=== PATIENT | male | born 1945 | race Caucasian/White ===

== ENCOUNTER → 2017-10-04 | Outpatient (CLI) | payer MEDICARE, SELFPAY | PROVIDERS: Visit Provider Nurse Practitioner Family | DX: R53.83 Other fatigue (principal) | CPT/HCPCS: 80053; 80061; 82306; 83036; 84439; 84443; 85025; 86431 ==

== ENCOUNTER → 2017-10-05 | Outpatient (CLI) | payer MEDICARE, SELFPAY | PROVIDERS: Family Provider Nurse Practitioner Family; Visit Provider Nurse Practitioner Family | DX: M25.562 Pain in left knee (principal) | CPT/HCPCS: 73564 ==

== ENCOUNTER → 2018-11-13 10:40 | Outpatient (CLI) | payer MEDICARE, SELFPAY ==
[2018-11-13 12:46] LABS: Prostate Specific Ag Screen 7.7 ng/mL (0.0-4.0)
== END ==
PROVIDERS: Visit Provider Urology
DX: Z12.5 Encounter for screening for malignant neoplasm of prostate (principal); N40.0 Benign prostatic hyperplasia without lower urinary tract symptoms; R97.20 Elevated prostate specific antigen [PSA]
CPT/HCPCS: 36415; G0103

== ENCOUNTER → 2019-11-12 12:15 | Outpatient (CLI) | payer MEDICARE, SELFPAY ==
[2019-11-13 11:28] LABS: PSA, Free 1.32 ng/mL; Prostate Specific Ag 5.6 ng/mL (0.0-4.0)
== END ==
PROVIDERS: Visit Provider Urology
DX: R97.20 Elevated prostate specific antigen [PSA] (principal)
CPT/HCPCS: 36415; 84153; 84154

== ENCOUNTER → 2020-06-17 15:16 | Outpatient (CLI) | payer MEDICARE, SELFPAY ==
[2020-06-19 09:14] LABS: Covid-19 Nasal PCR Sendout UK Not Detected
== END ==
PROVIDERS: PCP Emergency Medicine; Visit Provider Nurse Practitioner
DX: Z03.818 Encounter for observation for suspected exposure to other biological agents ruled out (principal)
CPT/HCPCS: U0003

== ENCOUNTER → 2020-06-22 18:56 | Outpatient (CLI) | payer MEDICARE, SELFPAY ==
[2020-06-22 19:36] LABS: Basophils % 0.7 % (0.1-2.0); Eosinophils # 0.1 K/mm3 (0.0-0.4); Eosinophils % 1.7 % (0.1-12.0); Hematocrit 41.9 % (42.0-52.0); Hemoglobin 14.2 g/dL (14.1-18.0); Lymphocytes # 1.2 K/mm3 (0.7-4.5); Lymphocytes % 23.9 % (10-50); Mean Corpuscular Volume 91.1 fl (80-94); Mean Platelet Volume 8.6 fl (7.4-10.4); Monocytes # 0.3 K/mm3 (0.1-1.0); Monocytes % 6.8 % (1.7-9.3); Neutrophils # 3.2 K/mm3 (1.8-7.8); Neutrophils % 66.9 % (37.0-80.0); Platelet Count 206 K/mm3 (142-424); Red Cell Distribution Width 13.3 % (11.5-17.5); White Blood Count 4.8 K/mm3 (4.8-10.8)
[2020-06-22 19:40] LABS: Alanine Aminotransferase 22 U/L (12-78); Albumin Level 4.6 g/dl (3.5-5.0); Albumin/Globulin Ratio 1.4 (1.1-1.8); Alkaline Phosphatase 70 U/L (38-126); Anion Gap 15.2 mEq/L (5-15); Aspartate Amino Transferase 29 U/L (17-59); Bilirubin,Total 0.8 mg/dl (0.2-1.3); Blood Urea Nitrogen 15 mg/dl (9-20); Calcium 9.5 mg/dl (8.4-10.2); Carbon Dioxide 29 mmol/L (22.0-30.0); Chloride 100 mmol/L (98-107); Chol/HDL Ratio 4.6 (1-3.5); Cholesterol 278 mg/dl (140-200); Estimated Glomerular Filt Rate 66 ml/min (>60); GFR (African American) 79 ML/MIN (>60); Globulin 3.3 g/dL (1.3-3.2); Glucose 122 mg/dl (74-100); HDL Cholesterol 60 mg/dl (40-60); Potassium 4.2 mmoL/L (3.5-5.1); Sodium 140 mmol/L (136-145); Total Protein,Serum 7.9 g/dl (6.3-8.2); Triglycerides 143 mg/dl (30-150); VLDL Cholesterol 29 mg/dL (0-40)
[2020-06-22 19:43] LABS: Creatinine,Urine Random 64 mg/dL (Not Estab.); Microalbumin/Creatinine Ratio 11.5
[2020-06-22 19:52] LABS: Direct LDL Cholesterol 157.16 mg/dL (100-129)
[2020-06-22 19:58] LABS: T4 (Thyroxine) 9.4 ug/dl (5.53-11.0)
[2020-06-22 19:59] LABS: Hemoglobin A1C 6.7 % (4.0-6.0)
[2020-06-22 20:12] LABS: Prostate Specific Ag Screen 6.8 ng/ml (0.0-4.0); Thyroid Stimulating Hormone 3.35 uIU/mL (0.465-4.68)
== END ==
PROVIDERS: Visit Provider Nurse Practitioner Family
DX: R42 Dizziness and giddiness; E78.5 Hyperlipidemia, unspecified; E11.9 Type 2 diabetes mellitus without complications; R53.83 Other fatigue; Z12.5 Encounter for screening for malignant neoplasm of prostate; Z79.84 Long term (current) use of oral hypoglycemic drugs
CPT/HCPCS: 80053; 80061; 82043; 82570; 83036; 84436; 84443; 85025; G0103

== ENCOUNTER → 2020-11-14 14:55 | Outpatient (CLI) | payer MEDICARE, SELFPAY ==
[2020-11-16 08:36] LABS: PSA, Free 1.49 ng/mL; Prostate Specific Ag 8.9 ng/mL (0.0-4.0)
== END ==
PROVIDERS: Visit Provider Urology
DX: R97.20 Elevated prostate specific antigen [PSA] (principal)
CPT/HCPCS: 36415; 84153; 84154

== ENCOUNTER → 2020-12-15 13:43 | Outpatient (CLI) | payer MEDICARE, SELFPAY ==
[2020-12-15 13:52] LABS: Basophils % 0.4 % (0.1-2.0); Eosinophils # 0.1 K/mm3 (0.0-0.4); Eosinophils % 1.4 % (0.1-12.0); Hematocrit 42.9 % (42.0-52.0); Hemoglobin 13.9 g/dL (14.1-18.0); Mean Corpuscular HGB Conc 32.4 g/dL (31.8-35.4); Mean Corpuscular Hemoglobin 30.6 pg (27.0-31.2); Mean Corpuscular Volume 94.4 fl (80-94); Mean Platelet Volume 8.4 fl (7.4-10.4); Monocytes # 0.3 K/mm3 (0.1-1.0); Monocytes % 5.9 % (1.7-9.3); Neutrophils # 4.2 K/mm3 (1.8-7.8); Neutrophils % 74.3 % (37.0-80.0); Platelet Count 206 K/mm3 (142-424); Red Blood Count 4.55 M/mm3 (4.60-6.20); Red Cell Distribution Width 13.3 % (11.5-17.5); White Blood Count 5.6 K/mm3 (4.8-10.8)
[2020-12-15 14:04] LABS: Alanine Aminotransferase 20 U/L (12-78); Albumin Level 4.8 g/dl (3.5-5.0); Albumin/Globulin Ratio 1.6 (1.1-1.8); Alkaline Phosphatase 56 U/L (38-126); Anion Gap 13.9 mEq/L (5-15); Aspartate Amino Transferase 29 U/L (17-59); Bilirubin,Total 0.7 mg/dl (0.2-1.3); Blood Urea Nitrogen 20 mg/dl (9-20); Calcium 9.8 mg/dl (8.4-10.2); Carbon Dioxide 24 mmol/L (22.0-30.0); Chloride 105 mmol/L (98-107); Chol/HDL Ratio 2.8 (1-3.5); Cholesterol 213 mg/dl (140-200); Estimated Glomerular Filt Rate 65 ml/min (>60); GFR (African American) 79 ML/MIN (>60); Glucose 117 mg/dl (74-100); HDL Cholesterol 77 mg/dl (40-60); Potassium 4.9 mmoL/L (3.5-5.1); Sodium 138 mmol/L (136-145); Total Protein,Serum 7.8 g/dl (6.3-8.2); Triglycerides 128 mg/dl (30-150); VLDL Cholesterol 26 mg/dL (0-40)
[2020-12-15 14:15] LABS: Direct LDL Cholesterol 104.67 mg/dL (100-129)
[2020-12-15 14:21] LABS: T4 (Thyroxine) 10.3 ug/dl (5.53-11.0)
[2020-12-15 14:22] LABS: 25-OH Vitamin D, Total 18.6 ng/mL (30-100)
[2020-12-15 14:34] LABS: Thyroid Stimulating Hormone 2.19 uIU/mL (0.465-4.68)
[2020-12-15 14:37] LABS: Hemoglobin A1C 6.4 % (4.0-6.0)
== END ==
PROVIDERS: Visit Provider Nurse Practitioner Family
DX: E11.9 Type 2 diabetes mellitus without complications (principal); E55.9 Vitamin D deficiency, unspecified; I10 Essential (primary) hypertension; Z79.84 Long term (current) use of oral hypoglycemic drugs; Z79.899 Other long term (current) drug therapy
CPT/HCPCS: 80053; 80061; 82306; 83036; 84436; 84443; 85025

== ENCOUNTER → 2021-01-07 10:06 | Outpatient (CLI) | payer MEDICARE, SELFPAY ==
--- NOTE | 2021-01-07 10:17 | XR_ITS ---
PROCEDURE: XR CHEST 2V CLINICAL HISTORY: cough COMPARISON: CR CXR CHEST(2 VIEWS-NOT PORTABLE) from 06/30/2013 CR CXR CHEST(2 VIEWS-NOT PORTABLE) from 07/02/2015 CR CXR CHEST(2 VIEWS-NOT PORTABLE) from 07/10/2015 FINDINGS: The cardiomediastinal silhouette and pulmonary vascularity are within normal limits. The lungs are clear without infiltrates, suspicious nodules, or pleural effusions. There is an old healed fracture of the left 7th rib posterior axillary line with mild deformity. No acute bony abnormalities. IMPRESSION: No acute findings. Dictated by: Dr. Xavier Villafana MD 01/07/2021 12:23 Dr. Xavier Villafana MD in [place] 01/07/2021 12:23
== END ==
PROVIDERS: PCP Emergency Medicine; Referring Provider Emergency Medicine; Visit Provider Emergency Medicine
DX: R05 Cough (principal)
CPT/HCPCS: 71046

== ENCOUNTER → 2021-01-20 15:11 | Outpatient (CLI) | payer MEDICARE, SELFPAY ==
--- NOTE | 2021-01-20 15:11 | CT_ITS ---
PROCEDURE: CT LUNG SCREENING CLINICAL INDICATION: lung cancer screening Current smoker 50 pack year smoking history Family hx lung cancer No prior COMPARISON: CR XR CHEST 2V from 01/07/2021 TECHNIQUE: The exam was performed on a GE Light Speed [address] scanner using 2.90 mGy CTDI. A low dose helical CT CHEST was performed on a multi-detector scanner. All CT scans at the facility use one or more dose reduction, viz: automated exposure control, ma/kV adjustment per patient size (including targeted exams where dose is matched to indication, i.e. head), or iterative reconstruction technique. The LDCT was performed in a facility that meets the criteria for the screening program. Data regarding this exam was submitted to ACR which is an approved registry. The order for this exam indicates that it came as a result of a lung cancer screening counseling shard decision-making visit that included all the elements required of such a visit including smoking cessation. The radiologist interpreting this exam meets the CMS criteria for the LDCT lung cancer screening program. The exam is reported using the Lung-RADS classification scale and reported to the ACR registry. NOTE: This study was performed for the specific purposes of lung cancer screening and is not an alternative to diagnostic chest CT. RADIATION DOSE: CTDI vol(CT dose Index-volume) = 2.90mG DLP (Dose Length Product) = 102.12 mGcm FINDINGS: COPD changes with scattered areas of scarring. Parenchymal opacity is present in the left apex medially measuring 9 mm. Suggest 6 month follow-up to confirm stability. This may be due to an area of scarring. Scattered small parenchymal opacities are present some of which are calcified and are 4 mm or less. Calcified nodes are present in the right hilum no suspicious nodules are evident. OTHER FINDINGS: Coronary artery calcifications. 14 mm hypodensity present in the right hepatic lobe anteriorly possibly due to a cyst. 8 mm hypodensity left hepatic lobe medially ankylosis of the thoracic spine. Old bilateral rib fractures. IMPRESSION: Lung-RADS Category 3 Probably Benign Follow-up: [address] Chest without and with contrast. At least 2 hypodense lesions of the liver which may represent hepatic cysts. MRI with hemangioma protocol may confirm. Coronary artery calcifications Dictated by: Kahlil Riley MD 01/22/2021 08:37 Kahlil Riley MD in [facility] 01/22/2021 08:37
== END ==
PROVIDERS: PCP Emergency Medicine; Visit Provider Emergency Medicine
DX: Z87.891 Personal history of nicotine dependence (principal); Z12.2 Encounter for screening for malignant neoplasm of respiratory organs
CPT/HCPCS: 71271

== ENCOUNTER → 2021-02-21 06:10 | Outpatient (CLI) | payer MEDICARE, SELFPAY ==
--- NOTE | 2021-02-21 06:37 | NM_ITS ---
APPROVED REPORT Exam: Nuclear Stress Test Indication: SOB, HTN, DM, High cholesterol, Tobacco use Patient Location: Outpatient Stress Tech: Amanda Perry MI Tech:Susannah Hansen, ARRT, RT (R)(N) Ht: 5 ft 10 in Wt: 155 lbs HR: 63 bpm BP: 153/66 mmHg BSA: 1.87 m2 BMI: 22.2 History: SOB, HTN, DM, High cholesterol, Tobacco use Procedure: Patient received a 0.4 mg of intravenous Lexiscan, resting heart rate 63 bpm, resting blood pressure 153/66 mmHg, with Lexiscan maximum heart rate achived was 100 bpm which is Less than 85 % of the maximum predicted heart rate and blood pressure was 155/73 mmHg. With Lexiscan, patient denied any complaint of chest pain. Electrocardiogram Resting electrocardiogram showed sinus rhythm, with Lexiscan there is less than 1.[address] segment depression noted from the baseline EKG. The EKG portion of the Lexiscan is nondiagnostic. Cardiac Stress and Resting SPECT Images: Cardiac Stress and Resting SPECT images were obtained using technetium 99m Myoview 32.6 mCi stress and 10.28 mCi at rest. Gated SPECT for analysis of segmental wall motion and calculation of the ejection fraction also done. Cardiac stress and resting SPECT images show mixed ischemia and scar involving the inferior and inferior apical wall, computer derived ejection fraction 42% with moderate inferior wall hypokinesis. Right ventricle is normal size and contractility. Conclusion: 1. The EKG portion of the Lexiscan is nondiagnostic. 2. Scintigraphic evidence of mixed ischemia and scar involving the inferior and inferior apical wall, completed right ejection fraction 42% with multiple segmental wall motion abnormality described above, right ventricle is normal size and contractility. 3. Abnormal Lexiscan Myoview study. Electronically signed by : Tobin Abraham, 02/21/2021 21:51:33
--- NOTE | 2021-02-21 07:55 | CA_ITS ---
APPROVED REPORT EXAM: Comprehensive 2D, Doppler, and color-flow Echocardiogram Wagon Drill Operator: Kimberly Spears CRT Ht: 5 ft 10 in Wt: 158lbs BSA: 1.89 BP: 149/56 mmHg Indications: Abnormal ECG, Shortness of Breath, Diabetes, Hyperlipidemia, Hypertension/HDD, smoker 2D Dimensions LVOT 1.97 cm (M/F) 1.5-2.5 LA Volume 22.30 mL LA Volume Index 11.80 mL/m2 (M/F) 16-34 M-Mode Dimensions RVDd 2.59 cm (0.9-2.6) LA Diam 3.62 cm (1.9-4.0) LVDd 5.37 cm (3.5-5.7) Ao Diam 3.41 cm (2.0-3.7) LVDs 4.59 cm (3.5-5.7) IVSd 1.15 cm (0.6-1.1) PWd 0.53 cm (0.6-1.1) EF (Teich) 30.60% FS 14.50% EDV (Teich) 139.50 mL TAPSE 1.79 (<1.7) ESV (Teich) 96.80 mL LV Diastology E Decel Time 197.00 (160-240 msec) E/A Ratio 1.14 MED E' 5.40 (< 7 cm/sec) MED A' 6.80 cm/s E'/MED E' Ratio 19.06 (>14) LAT E' 6.20 (<10 cm/sec) LAT A' 8.10 cm/s E/LAT E' Ratio 16.60 (>14) Aortic Valve AO Peak GR. 4.70 mmHg Mitral Valve MV A Velocity 90.00 (40-130 cm/s) E/A Ratio 1.14 MV Decel. Time 197.00 (160-240 ms) Pulmonary Valve PV Peak Velocity 64.00 (50-150 cm/s) Tricuspid Valve TR P. Velocity 271.00 cm/s RAP Estimate 10.00 mmHg RVSP 39.30 mmHg Left Ventricle Left atrium is mildly enlarged, left ventricle is normal size, visually estimated ejection fraction approximately 40 to 45%, left ventricle appears to be globally hypokinetic, grade 2 diastolic dysfunction seen with tissue Doppler evidence of raise left atrial pressure. Right Ventricle Right atrium and right ventricle are normal size and contractility. Aortic Valve Aortic valve is minimally thickened and fibrosed, there is no aortic stenosis or aortic insufficiency. Mitral Valve Mitral valve is grossly normal, there is trace mitral regurgitation. Tricuspid Valve Tricuspid grossly normal, there is trace tricuspid regurgitation, tricuspid regurgitation jet velocity is inadequate for calculation of the right ventricular systolic pressure. Pulmonic Valve Pulmonic valve is poorly visualized. Great Vessels Aortic root is normal size. Pericardium No significant pericardial effusion noted. Conclusion 1. Mildly enlarged left atrium, normal left ventricular size, mild concentric left ventricular hypertrophy, visually estimated ejection fraction approximately 40 to 45% left ventricle is globally hypokinetic, grade 2 diastolic dysfunction seen with tissue Doppler evidence of raise left atrial pressure. 2. Mild mitral and tricuspid regurgitation. 3. No significant pericardial effusion noted. Electronically signed by : Tobin Abraham, 02/21/2021 19:50:36
--- NOTE | 2021-02-21 07:55 | CA_ITS ---
APPROVED REPORT Leather Production Artisan: ABBY Laterality: Bilateral Study Quality: Good Indications: bilateral carotid bruits Risk Factors Hypertension: Doppler Spectral Velocity Analysis ECA (R) 104.80/8.20 cm/s ECA (L) 95.00/12.00 cm/s dICA (R) 68.80/18.70 cm/s dICA (L) 97.70/34.30 cm/s Fan (R) 89.80/20.20 cm/s Fan (L) 110.50/36.00 cm/s pICA (R) 75.60/14.20 cm/s pICA (L) 60.60/17.20 cm/s dCCA (R) 70.00/15.50 cm/s dCCA (L) 88.30/20.20 cm/s pCCA (R) 116.60/15.00 cm/s pCCA (L) 86.80/18.70 cm/s Vert (R) 44.90/9.00 cm/s Vert (L) 36.80/12.90 cm/s ICA/CCA 1.28 ICA/CCA 1.25 Findings Duplex evaluation demonstrates no evidence of hemodynamically significant stenosis of the bilateral Internal Carotid Arteries. Duplex evaluation demonstrates antegrade flow of the bilateral Vertebral Arteries. Duplex evaluation demonstrates stenosis of the right proximal internal carotid artery <20% with PSV <140 cm/sec, EDV <100 cm/sec, and IC/CC Ratio <4.0. Duplex evaluation demonstrates stenosis of the left proximal internal carotid artery <20% with PSV <140 cm/sec, EDV <100 cm/sec, and IC/CC Ratio <4.0. Conclusion Duplex evaluation demonstrates no evidence of hemodynamically significant stenosis of the bilateral Internal Carotid Arteries. Duplex evaluation demonstrates antegrade flow of the bilateral Vertebral Arteries. Duplex evaluation demonstrates stenosis of the right proximal internal carotid artery <20% with PSV <140 cm/sec, EDV <100 cm/sec, and IC/CC Ratio <4.0. Duplex evaluation demonstrates stenosis of the left proximal internal carotid artery <20% with PSV <140 cm/sec, EDV <100 cm/sec, and IC/CC Ratio <4.0. Electronically signed by : Kala Meng, 02/21/2021 15:49:24
--- NOTE | 2021-02-21 08:11 | HMH.ITSHM ---
Current Home Medications as stated by this patient Cole Feliz JR or data entry representative. []ROSUVASTATIN METFORMIN LISINOPRIL FLUTICASONE VITAMIN D2 DOXAZOSIN ASA
--- NOTE | 2021-02-21 08:51 | CA_ITS ---
APPROVED REPORT Exam: Pharmacologic Technologist: Amanda Perry, Ht: 5 ft 10 in Wt: 158 lbs BSA: 1.89 m2 HR: 63 bpm BP: 153/66 mmHg Medical History Medications: Lisinopril,,,,, Aspirin,,,,, Metformin,,,,, DOxazosin,,,,, Vitamin D2,,,,, BREo Eliipta,,,,, Stress Test Details Test: LEXISCAN HR Resting HR: 71 bpm Max Heart Rate (APMHR): 146.453324 bpm Max HR Achieved: 109 bpm Target HR (85% APMHR): 124.651486 bpm % of APMHR: 74.66 Recovery HR: 71 bpm BP Resting BP: 153/66 mmHg Max BP: 155/73 mmHg Recovery BP: 141.0/62.0 mmHg ECG Resting ECG: NSR, cannot R/O old septal OH, T wave inversion inferiorly and in V6, early repolarization changes. Clinical Exercise duration: 04:10 min Highest Stage Achieved: Exercise capacity: 1.0 METs Stress ECG Conclusion Symptoms: SOA, malaise. No CP Arrhythmias/Ectopy: Rare PVC ST-T Changes: some exaggeration of baseline abns, most notably in lead V6. Conclusion: Non-diagnostic Lexiscan stress. Myoview images reported separately. Electronically signed by : Tobin Abraham, 02/21/2021 21:35:18
== END ==
LOC: RAD 06:10
PROVIDERS: PCP Nurse Practitioner Family; Visit Provider Internal Medicine Cardiovascular Disease
DX: E11.59 Type 2 diabetes mellitus with other circulatory complications (principal); I10 Essential (primary) hypertension; I25.10 Atherosclerotic heart disease of native coronary artery without angina pectoris; R06.00 Dyspnea, unspecified; R09.89 Other specified symptoms and signs involving the circulatory and respiratory systems; R94.31 Abnormal electrocardiogram [ECG] [EKG]; Z72.0 Tobacco use; Z79.84 Long term (current) use of oral hypoglycemic drugs
CPT/HCPCS: 78452; 93017; 93306; 93880; A9502; J2785

== ENCOUNTER → 2021-02-25 09:13 | Outpatient (CLI) | payer MEDICARE, SELFPAY ==
[2021-02-25 09:48] LABS: Basophils % 0.4 % (0.1-2.0); Eosinophils # 0.1 K/mm3 (0.0-0.4); Eosinophils % 2.2 % (0.1-12.0); Hematocrit 44.2 % (42.0-52.0); Hemoglobin 13.6 g/dL (14.1-18.0); Lymphocytes # 1.2 K/mm3 (0.7-4.5); Lymphocytes % 24.6 % (10-50); Mean Corpuscular HGB Conc 30.8 g/dL (31.8-35.4); Mean Corpuscular Hemoglobin 29.8 pg (27.0-31.2); Mean Corpuscular Volume 96.7 fl (80-94); Mean Platelet Volume 7.4 fl (7.4-10.4); Monocytes # 0.4 K/mm3 (0.1-1.0); Monocytes % 7.4 % (1.7-9.3); Neutrophils # 3.2 K/mm3 (1.8-7.8); Neutrophils % 65.4 % (37.0-80.0); Platelet Count 203 K/mm3 (142-424); Red Blood Count 4.57 M/mm3 (4.60-6.20); Red Cell Distribution Width 13.1 % (11.5-17.5); White Blood Count 4.9 K/mm3 (4.8-10.8)
[2021-02-25 14:00] LABS: Anion Gap 13.2 mEq/L (5-15); Blood Urea Nitrogen 19 mg/dl (9-20); Calcium 9.9 mg/dl (8.4-10.2); Carbon Dioxide 31 mmol/L (22.0-30.0); Chloride 101 mmol/L (98-107); Estimated Glomerular Filt Rate 59 ml/min (>60); GFR (African American) 72 ML/MIN (>60); Glucose 96 mg/dl (74-100); Potassium 5.2 mmoL/L (3.5-5.1); Sodium 140 mmol/L (136-145)
== END ==
PROVIDERS: Visit Provider Internal Medicine Cardiovascular Disease
DX: I10 Essential (primary) hypertension (principal); I25.10 Atherosclerotic heart disease of native coronary artery without angina pectoris; I65.29 Occlusion and stenosis of unspecified carotid artery; R09.89 Other specified symptoms and signs involving the circulatory and respiratory systems; R94.30 Abnormal result of cardiovascular function study, unspecified; Z72.0 Tobacco use; Z01.818 Encounter for other preprocedural examination; Z11.52 Encounter for screening for COVID-19
CPT/HCPCS: 36415; 80048; 85025; U0003

== ENCOUNTER 2021-02-27 08:40 | Day surgery (SDC) | payer MEDICARE, SELFPAY ==
[2021-02-27] VITALS (12 sets, daily range): BP systolic 102–152; BP diastolic 47–75; PULSE 48–63; RESP 12–18; TEMP 36.6–36.7; O2SAT 92–98; BMI 22.8
--- NOTE | 2021-02-27 07:16 | IR_ITS ---
APPROVED REPORT Patient Location: Outpatient Warehouse Supervisor 3Rd Shift: EUFEMIA Lancaster RT (R) PROCEDURES Left heart catheterization Left ventriculogram Selective coronary angiogram INDICATION High risk abnormal Myoview, Angina pectoris, Informed consent was obtained prior to the procedure. COMPLICATIONS NONE Estimated Blood Loss: LESS THAN 10 ML TECHNIQUE One percent lidocaine used to anesthetize the right anterior aspect of the wrist. The right radial artery was accessed via the Seldinger technique. A 6 Norwegian sheath was placed in the right radial artery. 2.5 mg of verapamil, 800 mcg of nitroglycerin, 1mg Lidocaine and 5000 U Heparin were given through the arterial sheath. The trap catheter was also used to perform left heart catheterization, left ventriculogram and selective coronary angiogram. At the end of the procedure the sheath was removed good hemostasis was achieved using Traclet band, patient was transferred to the postop holding area in stable condition. ANGIOGRAPHIC RESULTS The left main artery Has an ostial 70% stenosis and a distal 60% stenosis well proximal to the LAD and circumflex origin The left anterior descending artery Has a proximal hazy concentric 50% followed by concentric mid vessel 70% stenosis The circumflex artery Is nondominant and has a proximal 30% stenosis The right coronary artery Is dominant and has a mid vessel concentric 60 to 70% stenosis and a distal 30% stenosis The SOTO ventriculogram reveals Normal 65% The left ventricular end-diastolic pressure 10 mmHg IMPRESSION Three-vessel coronary artery disease as described above Low syntax score which seriously puts into play percutaneous revascularization as opposed to coronary bypass surgery Normal ejection fraction Normal left ventricular end-diastolic pressure PLAN 1. At this point I would like to discuss with the patient and his family his desire for multivessel stenting or coronary artery bypass surgery. There are significant advantages to stenting over bypass surgery mostly that the risk of stroke is significantly lower in the low syntax to her tertile group with drug-eluting stenting as opposed to surgery. Patient is however at the age where he may consider bypass surgery which is also entirely acceptable. According to the syntax trial the mortality remains the same for both drug-eluting stent versus CABG however the stroke rate is higher in the CABG group with the drug-eluting stent group requiring a higher number of repeat revascularization/cardiac catheterizations. In the CABG group a perioperative stroke is typically a large stroke creating severe debility 2. LDL less than 55 3. Cardiac rehabilitation 4. Avoidance of tobacco products 5. Patient will be offered both revascularization modalities once he is 24 hours beyond the cardiac catheterization due to sedation Electronically signed by : Quan Del Valle, 02/27/2021 11:24:13
== END 2021-02-27 13:25 | disposition home or self-care (01) ==
LOC: CATHLAB 08:42
PROVIDERS: PCP Nurse Practitioner Family; Visit Provider Internal Medicine
DX: I25.10 Atherosclerotic heart disease of native coronary artery without angina pectoris (principal); I10 Essential (primary) hypertension; I65.29 Occlusion and stenosis of unspecified carotid artery; R09.89 Other specified symptoms and signs involving the circulatory and respiratory systems; R94.30 Abnormal result of cardiovascular function study, unspecified; Z72.0 Tobacco use; I65.23 Occlusion and stenosis of bilateral carotid arteries; E78.5 Hyperlipidemia, unspecified; Z88.1 Allergy status to other antibiotic agents; Z79.82 Long term (current) use of aspirin; E11.8 Type 2 diabetes mellitus with unspecified complications; Z71.6 Tobacco abuse counseling; Z79.84 Long term (current) use of oral hypoglycemic drugs
CPT/HCPCS: 93458; 99152; C1725; C1769; J1644; Q9967

== ENCOUNTER → 2021-03-06 10:53 | Outpatient (CLI) | payer MEDICARE, SELFPAY | PROVIDERS: Visit Provider Internal Medicine Cardiovascular Disease | DX: Z01.812 Encounter for preprocedural laboratory examination (principal); Z20.822 Contact with and (suspected) exposure to COVID-19; I25.10 Atherosclerotic heart disease of native coronary artery without angina pectoris | CPT/HCPCS: U0003 ==

== ENCOUNTER 2021-03-07 12:23 | Day surgery (SDC) | payer MEDICARE, SELFPAY ==
[2021-03-07] VITALS (12 sets, daily range): BP systolic 115–143; BP diastolic 62–75; PULSE 55–72; RESP 17–20; TEMP 36.6; O2SAT 94–98; BMI 22.5
--- NOTE | 2021-03-07 | IR_ITS ---
APPROVED REPORT Patient Location: Outpatient PROCEDURES Drug-eluting stent deployment to the proximal mid dominant right coronary artery Drug-eluting stent deployment to the ostial proximal mid left main artery Drug-eluting stent deployment to the proximal and mid LAD INDICATION Three-vessel coronary artery disease, Informed consent was obtained prior to the procedure. COMPLICATIONS NONE Estimated Blood Loss: LESS THAN 10 ML TECHNIQUE One percent lidocaine used to anesthetize the right anterior aspect of the wrist. The right radial artery was accessed via the Seldinger technique. A 6 Upper Sorbian sheath was placed in the right radial artery. 2.5 mg of verapamil, 800 mcg of nitroglycerin, 1mg Lidocaine and 5000 U Heparin were given through the arterial sheath. A 6 Upper Sorbian Poppa catheter was used to cannulate the right coronary artery after therapeutic heparin was administered giving a therapeutic ACT of 309 seconds. The Choice PT extra-support wire was placed distally in the right coronary artery and a 4 mm x 18 mm resolute Glen stent was deployed at 20 and then 24 abiola in the right coronary artery. The stenosis was not fully reduced therefore a 5 mm x 8 mm noncompliant balloon was deployed in the area of interest at 20 abiola further reducing the stenosis to less than 10%. Excellent angiographic results were obtained. JUAN PABLO-3 flow was present before and after the procedure. Following this the guide catheter was placed into the left main artery where the same wire was placed in the left main artery into the LAD. A 4 mm x 8 mm resolute [place] stent was then deployed in the ostial proximal left main artery at 24 abiola reducing the stenosis. A 5 mm x 8 mm balloon was then deployed in the vessel at 20 and 24 abiola to further post dilate. Excellent JUAN PABLO-3 flow was present before and after the procedure. After achieving excellent angiographic results a 4 mm x 30 mm resolute Glen stent was placed in the proximal to mid LAD and deployed at 20 abiola reducing the stenosis. A 4 mm x 12 mm noncompliant balloon was then placed in the mid LAD and deployed at 20 and then 24 and then 25 abiola to further post dilate the stenosis. Excellent angiographic results were obtained with JUAN PABLO-3 flow being present before and after the procedure. At the end of the procedure the apparatus was removed the sheath was removed and hemostasis was achieved using TR banding patient was transferred to the postop holding in stable condition IMPRESSION Successful stenting of the proximal to mid dominant right coronary artery severe disease reduced to less than 10% with 1 drug-eluting stent Successful stenting of the ostial proximal mid left main artery severe disease reduced to 0% with 1 drug-eluting stent Successful stenting of the proximal to mid LAD in a contiguous manner severe disease reduced to 0% with 1 drug-eluting stent PLAN 1. Aspirin and Plavix 2. LDL less than 55 3. Cardiac rehabilitation 4. Avoidance of tobacco products 5. Risk factor modification Electronically signed by : Quan Del Valle, 03/07/2021 13:42:33
[2021-03-07 13:58] LABS: CATHL Activated Clotting Time 309 SEC (74-125)
--- NOTE | 2021-03-07 16:00 | US_ITS ---
PROCEDURE: US AORTA CLINICAL INDICATION: tobacco dep COMPARISON: No exams were available for comparison FINDINGS: No evidence of abdominal aortic aneurysm. Proximal common iliacs have an unremarkable appearance. IMPRESSION: Negative for abdominal aortic aneurysm Dictated by: Kahlil Riley MD 03/07/2021 17:12 Kahlil Riley MD in [place] 03/07/2021 17:12
--- NOTE | 2021-03-07 16:08 | HMH.PHACLD ---
Cole Feliz JR has received discharge medication counseling on the following medications: PATIENT ALREADY TAKING CARVEDILOL 3.125 MG BID, LISINOPRIL 2.5 MG DAILY, ASPIRIN DR 81 MG DAILY, PLAVIX 75 MG DAILY, AND CRESTOR 20 MG HS.
== END 2021-03-07 16:01 | disposition home or self-care (01) ==
LOC: CATHLAB 12:23
PROVIDERS: PCP Nurse Practitioner Family; Visit Provider Internal Medicine
DX: I25.118 Atherosclerotic heart disease of native coronary artery with other forms of angina pectoris (principal); I10 Essential (primary) hypertension; R06.00 Dyspnea, unspecified; R09.89 Other specified symptoms and signs involving the circulatory and respiratory systems; R94.31 Abnormal electrocardiogram [ECG] [EKG]; Z72.0 Tobacco use; I25.119 Atherosclerotic heart disease of native coronary artery with unspecified angina pectoris; I65.29 Occlusion and stenosis of unspecified carotid artery; E78.2 Mixed hyperlipidemia; Z71.6 Tobacco abuse counseling; E11.9 Type 2 diabetes mellitus without complications; Z79.84 Long term (current) use of oral hypoglycemic drugs
CPT/HCPCS: 76770; 85347; 92928; 99152; 99153; C1725; C1769; C1876; C9600; J1644; Q9967

== ENCOUNTER → 2021-03-17 10:08 | Outpatient (CLI) | payer MEDICARE, SELFPAY ==
[2021-03-17 11:47] LABS: Chloride 99 mmol/L (98-107); Potassium 5.8 mmoL/L (3.5-5.1); Sodium 140 mmol/L (136-145)
[2021-03-17 11:50] LABS: Anion Gap 18.8 mEq/L (5-15); Blood Urea Nitrogen 22 mg/dl (9-20); Calcium 9.6 mg/dl (8.4-10.2); Carbon Dioxide 28 mmol/L (22.0-30.0); Estimated Glomerular Filt Rate 73 ml/min (>60); GFR (African American) 88 ML/MIN (>60); Glucose 123 mg/dl (74-100)
== END ==
PROVIDERS: Visit Provider Internal Medicine Cardiovascular Disease
DX: E11.9 Type 2 diabetes mellitus without complications (principal); E78.5 Hyperlipidemia, unspecified; I10 Essential (primary) hypertension; I25.10 Atherosclerotic heart disease of native coronary artery without angina pectoris; I65.29 Occlusion and stenosis of unspecified carotid artery; R09.89 Other specified symptoms and signs involving the circulatory and respiratory systems; R94.30 Abnormal result of cardiovascular function study, unspecified; Z72.0 Tobacco use
CPT/HCPCS: 36415; 80048

== ENCOUNTER → 2021-03-18 08:53 | Outpatient (CLI) | payer MEDICARE, SELFPAY ==
[2021-03-18 10:06] LABS: Chloride 101 mmol/L (98-107); Potassium 4.4 mmoL/L (3.5-5.1); Sodium 141 mmol/L (136-145)
[2021-03-18 10:08] LABS: Blood Urea Nitrogen 23 mg/dl (9-20); Estimated Glomerular Filt Rate 65 ml/min (>60); GFR (African American) 79 ML/MIN (>60)
[2021-03-18 10:09] LABS: Anion Gap 13.4 mEq/L (5-15); Calcium 9.3 mg/dl (8.4-10.2); Carbon Dioxide 31 mmol/L (22.0-30.0); Glucose 136 mg/dl (74-100)
== END ==
PROVIDERS: Visit Provider Internal Medicine Cardiovascular Disease
DX: E87.5 Hyperkalemia (principal)
CPT/HCPCS: 36415; 80048

== ENCOUNTER 2021-03-20 08:56 | Outpatient (RCR) | payer MEDICARE, SELFPAY | END 2021-05-29 10:53 | disposition home or self-care (01) | LOC: PT 08:56 | PROVIDERS: Visit Provider Internal Medicine | DX: Z95.5 Presence of coronary angioplasty implant and graft (principal) | CPT/HCPCS: 93798 ==

== ENCOUNTER → 2021-07-03 16:35 | Outpatient (CLI) | payer MEDICARE, SELFPAY | PROVIDERS: PCP Emergency Medicine; Visit Provider Nurse Practitioner | DX: Z20.822 Contact with and (suspected) exposure to COVID-19 (principal) | CPT/HCPCS: C9803; U0003; U0005 ==

== ENCOUNTER → 2021-07-10 14:32 | Outpatient (CLI) | payer MEDICARE, SELFPAY ==
[2021-07-10 14:56] LABS: Basophils % 0.5 % (0.1-2.0); Eosinophils # 0.1 K/mm3 (0.0-0.4); Eosinophils % 1.2 % (0.1-12.0); Hematocrit 40.2 % (42.0-52.0); Hemoglobin 13.3 g/dL (14.1-18.0); Lymphocytes # 0.9 K/mm3 (0.7-4.5); Lymphocytes % 19.3 % (10-50); Mean Corpuscular HGB Conc 33.1 g/dL (31.8-35.4); Mean Corpuscular Hemoglobin 30.5 pg (27.0-31.2); Mean Platelet Volume 9.1 fl (7.4-10.4); Monocytes # 0.4 K/mm3 (0.1-1.0); Monocytes % 8.1 % (1.7-9.3); Neutrophils # 3.3 K/mm3 (1.8-7.8); Neutrophils % 71.1 % (37.0-80.0); Platelet Count 233 K/mm3 (142-424); Red Blood Count 4.37 M/mm3 (4.60-6.20); Red Cell Distribution Width 13.9 % (11.5-17.5); White Blood Count 4.7 K/mm3 (4.8-10.8)
[2021-07-10 15:05] LABS: Chloride 106 mmol/L (98-107); Potassium 4.4 mmoL/L (3.5-5.1); Sodium 142 mmol/L (136-145)
[2021-07-10 15:08] LABS: Alanine Aminotransferase 22 U/L (12-78); Albumin Level 4.6 g/dl (3.5-5.0); Albumin/Globulin Ratio 1.4 (1.1-1.8); Alkaline Phosphatase 77 U/L (38-126); Anion Gap 15.4 mEq/L (5-15); Aspartate Amino Transferase 28 U/L (17-59); Bilirubin,Total 0.4 mg/dl (0.2-1.3); Blood Urea Nitrogen 18 mg/dl (9-20); Carbon Dioxide 25 mmol/L (22.0-30.0); Cholesterol 162 mg/dl (140-200); Estimated Glomerular Filt Rate 59 ml/min (>60); GFR (African American) 72 ML/MIN (>60); Globulin 3.2 g/dL (1.3-3.2); Total Protein,Serum 7.8 g/dl (6.3-8.2); Triglycerides 100 mg/dl (30-150); VLDL Cholesterol 20 mg/dL (0-40)
[2021-07-10 15:09] LABS: Calcium 10.2 mg/dl (8.4-10.2); Chol/HDL Ratio 2.2 (1-3.5); Glucose 129 mg/dl (74-100); HDL Cholesterol 73 mg/dl (40-60)
[2021-07-10 15:20] LABS: Direct LDL Cholesterol 62.09 mg/dL (100-129)
[2021-07-10 15:25] LABS: T4 (Thyroxine) 8.4 ug/dl (5.53-11.0)
[2021-07-10 15:28] LABS: 25-OH Vitamin D, Total 43.3 ng/mL (30-100)
[2021-07-10 15:39] LABS: Thyroid Stimulating Hormone 3.13 uIU/mL (0.465-4.68)
[2021-07-10 15:40] LABS: Hemoglobin A1C 6.7 % (4.0-6.0)
== END ==
LOC: LAB.DROPOF 14:32
PROVIDERS: Visit Provider Nurse Practitioner Family
DX: E11.9 Type 2 diabetes mellitus without complications (principal); E78.5 Hyperlipidemia, unspecified; I10 Essential (primary) hypertension; I25.10 Atherosclerotic heart disease of native coronary artery without angina pectoris; Z12.5 Encounter for screening for malignant neoplasm of prostate; E55.9 Vitamin D deficiency, unspecified
CPT/HCPCS: 80053; 80061; 82306; 83036; 84436; 84443; 85025; G0103

== ENCOUNTER → 2021-07-28 09:41 | Outpatient (CLI) | payer MEDICARE, SELFPAY ==
--- NOTE | 2021-07-28 09:41 | CT_ITS ---
PROCEDURE: CT CHEST WO/W CON CLINCAL INDICATION: 6 mth f/u COMPARISON: CT CT LUNG SCREENING from 01/20/2021 TECHNIQUE: IV Contrast: 75ml Isovue 370 Axial images obtained with sagittal and coronal reformats. All CT scans at the facility use one or more dose reduction, viz: automated exposure control, ma/kV adjustment per patient size (including targeted exams where dose is matched to indication, i.e. head), or iterative reconstruction technique. FINDINGS: HEART AND MEDIASTINAL STRUCTURES: Coronary artery calcifications and/or stents noted. No mediastinal or hilar mass or adenopathy. No evidence of aortic aneurysm or central pulmonary embolus. There is mild prominence of the left atrial appendage. LUNGS AND PLEURAL SPACES: COPD changes with scattered areas of scarring. Semi solid parenchymal opacity once again noted in the left apex medially which does appears slightly more prominent. The nodule has both a solid component centrally and a ground-glass component peripherally. Overall the nodule measures approximately 12 x 11 mm including the ground-glass component which was not included in the previous reading. The solid component appears slightly more prominent medially measuring approximately 10 by 13 mm previously measuring 7 x 12 mm. PET-CT should be considered for further evaluation. There is evidence of old granulomatous disease. Scarring is present in the right middle lobe and lingula. Subpleural nodule in the right upper lobe posteriorly is unchanged at approximately 6 mm. There are scattered calcified granulomas. UPPER ABDOMEN: There are 6 hepatic hypodensities measuring up to 14 mm. These may be due to cysts and may be confirmed with MRI. There is left hydronephrosis. The kidneys are incompletely imaged. Bones: There is an old right 1st rib fracture anteriorly. There are old bilateral rib fractures. ADDITIONAL FINDINGS: No other significant abnormalities. IMPRESSION: Left apical semi solid lesion appears slightly more prominent. This could be related to slice orientation. True growth is not excluded. Suggest PET-CT for further evaluation. Old granulomatous disease Multiple hepatic hypodensities which may be due to cyst and may be confirmed with MRI with hemangioma Mildly prominent left atrial appendage Left-sided hydronephrosis . Dictated by: Kahlil Riley MD 07/29/2021 09:41 Kahlil Riley MD in [place] 07/29/2021 09:41
[2021-07-28 10:25] LABS: Blood Urea Nitrogen 14 mg/dl (9-20); Estimated Glomerular Filt Rate 65 ml/min (>60); GFR (African American) 79 ML/MIN (>60)
== END ==
PROVIDERS: PCP Emergency Medicine; Visit Provider Nurse Practitioner Family
DX: R91.8 Other nonspecific abnormal finding of lung field (principal); R93.7 Abnormal findings on diagnostic imaging of other parts of musculoskeletal system
CPT/HCPCS: 36415; 71270; 82565; 84520; Q9967

== ENCOUNTER → 2021-11-07 10:16 | Outpatient (CLI) | payer MEDICARE, SELFPAY | PROVIDERS: PCP Emergency Medicine; Visit Provider Nurse Practitioner | DX: U07.1 COVID-19 (principal) | CPT/HCPCS: C9803; U0003; U0005 ==

== ENCOUNTER → 2021-11-30 10:38 | Outpatient (CLI) | payer MEDICARE, SELFPAY ==
[2021-12-01 11:29] LABS: PSA, Free 1.86 ng/mL
== END ==
LOC: LAB 10:39
PROVIDERS: Visit Provider Urology
DX: R97.20 Elevated prostate specific antigen [PSA] (principal)
CPT/HCPCS: 36415; 84153; 84154

== ENCOUNTER → 2021-12-06 07:50 | Outpatient (CLI) | payer MEDICARE, SELFPAY ==
[2021-12-06 08:45] VITALS: PULSE 88; PULSE 90
== END ==
PROVIDERS: PCP Emergency Medicine; Visit Provider Internal Medicine Pulmonary Disease
DX: R06.09 Other forms of dyspnea (principal)
CPT/HCPCS: 94060; 94618; 94640; 94727; 94729

== ENCOUNTER → 2022-01-01 14:53 | Outpatient (CLI) | payer MEDICARE, SELFPAY ==
[2022-01-01 18:02] LABS: Basophils % 0.3 % (0.1-2.0); Eosinophils # 0.1 K/mm3 (0.0-0.4); Eosinophils % 1.6 % (0.1-12.0); Hematocrit 38.3 % (42.0-52.0); Hemoglobin 12.4 g/dL (14.1-18.0); Lymphocytes # 0.4 K/mm3 (0.7-4.5); Lymphocytes % 8.5 % (10-50); Mean Corpuscular HGB Conc 32.5 g/dL (31.8-35.4); Mean Corpuscular Hemoglobin 31.2 pg (27.0-31.2); Mean Platelet Volume 9.2 fl (7.4-10.4); Monocytes # 0.3 K/mm3 (0.1-1.0); Monocytes % 6.5 % (1.7-9.3); Neutrophils # 3.9 K/mm3 (1.8-7.8); Neutrophils % 83.1 % (37.0-80.0); Platelet Count 116 K/mm3 (142-424); Red Blood Count 3.99 M/mm3 (4.60-6.20); Red Cell Distribution Width 14.1 % (11.5-17.5); White Blood Count 4.6 K/mm3 (4.8-10.8)
[2022-01-01 18:41] LABS: Hemoglobin A1C 6.4 % (4.0-6.0)
== END ==
PROVIDERS: Visit Provider Nurse Practitioner Family
DX: E78.5 Hyperlipidemia, unspecified (principal); E11.9 Type 2 diabetes mellitus without complications; Z79.84 Long term (current) use of oral hypoglycemic drugs
CPT/HCPCS: 83036; 85025

== ENCOUNTER → 2022-01-05 16:00 | Outpatient (CLI) | payer MEDICARE, SELFPAY ==
[2022-01-05 20:26] LABS: Alanine Aminotransferase 28 U/L (12-78); Albumin Level 4.1 g/dl (3.5-5.0); Albumin/Globulin Ratio 1.5 (1.1-1.8); Alkaline Phosphatase 54 U/L (38-126); Anion Gap 12.5 mEq/L (5-15); Aspartate Amino Transferase 36 U/L (17-59); Bilirubin,Total 0.7 mg/dl (0.2-1.3); Blood Urea Nitrogen 18 mg/dl (9-20); Calcium 8.4 mg/dl (8.4-10.2); Carbon Dioxide 27 mmol/L (22.0-30.0); Chloride 103 mmol/L (98-107); Chol/HDL Ratio 2.7 (1-3.5); Cholesterol 117 mg/dl (140-200); Estimated Glomerular Filt Rate 65 ml/min (>60); GFR (African American) 79 ML/MIN (>60); Globulin 2.7 g/dL (1.3-3.2); Glucose 124 mg/dl (74-100); HDL Cholesterol 44 mg/dl (40-60); Potassium 4.5 mmoL/L (3.5-5.1); Sodium 138 mmol/L (136-145); Total Protein,Serum 6.8 g/dl (6.3-8.2); Triglycerides 95 mg/dl (30-150); VLDL Cholesterol 19 mg/dL (0-40)
[2022-01-05 20:37] LABS: Direct LDL Cholesterol 49.43 mg/dL (100-129)
[2022-01-05 21:12] LABS: T4 (Thyroxine) 7.5 ug/dl (5.53-11.0)
[2022-01-05 21:26] LABS: Thyroid Stimulating Hormone 4.23 uIU/mL (0.465-4.68)
== END ==
LOC: LAB.DROPOF 01-08 19:24
PROVIDERS: Visit Provider Nurse Practitioner Family
DX: E78.5 Hyperlipidemia, unspecified (principal); E11.9 Type 2 diabetes mellitus without complications; Z79.84 Long term (current) use of oral hypoglycemic drugs
CPT/HCPCS: 80053; 80061; 82043; 84436; 84443

== ENCOUNTER → 2022-03-24 08:04 | Outpatient (CLI) | payer MEDICARE, SELFPAY ==
[2022-03-24 08:29] LABS: Microscopic, Urine URINE MICROSCOPIC (MICROSCOPIC)
[2022-03-24 09:05] LABS: Basophils # 0.1 K/mm3 (0-0.2); Basophils % 1.8 % (0.1-2.0); Eosinophils # 0.1 K/mm3 (0.0-0.4); Eosinophils % 2.1 % (0.1-12.0); Hematocrit 38.7 % (42.0-52.0); Hemoglobin 13.1 g/dL (14.1-18.0); Lymphocytes # 0.9 K/mm3 (0.7-4.5); Mean Corpuscular HGB Conc 33.8 g/dL (31.8-35.4); Mean Corpuscular Hemoglobin 32.1 pg (27.0-31.2); Mean Corpuscular Volume 94.8 fl (80-94); Mean Platelet Volume 7.9 fl (7.4-10.4); Monocytes # 0.3 K/mm3 (0.1-1.0); Monocytes % 6.4 % (1.7-9.3); Neutrophils # 2.8 K/mm3 (1.8-7.8); Neutrophils % 68.8 % (37.0-80.0); Platelet Count 190 K/mm3 (142-424); Red Blood Count 4.08 M/mm3 (4.60-6.20); Red Cell Distribution Width 13.9 % (11.5-17.5); White Blood Count 4.1 K/mm3 (4.8-10.8)
[2022-03-24 09:43] LABS: Albumin Level 4.4 g/dl (3.5-5.0); Chloride 105 mmol/L (98-107); Potassium 5.1 mmoL/L (3.5-5.1); Sodium 141 mmol/L (136-145)
[2022-03-24 09:45] LABS: Blood Urea Nitrogen 18 mg/dl (9-20); Estimated Glomerular Filt Rate 54 ml/min (>60); GFR (African American) 65 ML/MIN (>60)
[2022-03-24 09:46] LABS: Anion Gap 12.1 mEq/L (5-15); Calcium 10.1 mg/dl (8.4-10.2); Carbon Dioxide 29 mmol/L (22.0-30.0); Glucose 141 mg/dl (74-100); Phosphorous 3.9 mg/dl (2.5-4.5)
[2022-03-24 10:02] LABS: 25-OH Vitamin D, Total 33.8 ng/mL (30-100)
[2022-03-24 10:53] LABS: Intact Parathyroid Hormone 12.6 pg/mL (7.5-53.5)
[2022-03-24 16:23] LABS: Appearance,Urine CLEAR (Clear); Bilirubin,Urine Negative (Negative); Blood, Urine Negative (Negative); Color,Urine YELLOW (Yellow); Glucose,Urine (UA) TRACE (Negative); Ketones,Urine Negative (Negative); Leukocyte Esterase,Urine Negative (Negative); Nitrate,Urine Negative (Negative); PH,Urine 5.5 (5.0-8.5); Protein,Urine Negative (Negative); Urobilinogen,Urine 0.2 EU/dl (0.2)
[2022-03-24 16:38] LABS: Creatinine,Urine Random 69 mg/dL (Not Estab.)
[2022-03-24 16:40] LABS: Microalbumin/Creatinine Ratio 25.9
[2022-03-24 18:54] LABS: Bacteria,Urine Trace /lpf; Squamous Epithelial Cell,Urine Occasional #/hpf (0-5); WBC,Urine Occasional #/hpf (0-3)
== END ==
LOC: LAB 08:05
PROVIDERS: PCP Emergency Medicine; Visit Provider Internal Medicine Nephrology
DX: R80.9 Proteinuria, unspecified (principal); E55.9 Vitamin D deficiency, unspecified
CPT/HCPCS: 36415; 80069; 81001; 82043; 82306; 82570; 83970; 84155; 85025

== ENCOUNTER → 2022-03-26 12:52 | Outpatient (POV) | payer MEDICARE, SELFPAY | PROVIDERS: Visit Provider Internal Medicine Nephrology | DX: Z00.00 Encounter for general adult medical examination without abnormal findings (principal) ==

== ENCOUNTER → 2022-03-30 12:41 | Outpatient (CLI) | payer MEDICARE, SELFPAY ==
--- NOTE | 2022-03-30 12:41 | CT_ITS ---
FINAL REPORT TECHNIQUE: Axial CT images were performed from the lung apices through the upper abdomen. Coronal reformats were submitted. This study was performed with techniques to keep radiation doses as low as reasonably achievable (ALARA). Individualized dose reduction techniques using automated exposure control or adjustment of mA and/or kV according to the patient's size were employed. CLINICAL HISTORY: 6 month March-2021 COMPARISON: 07/28/2021 FINDINGS: There is no axillary adenopathy. There is no hilar or mediastinal mass or adenopathy. Heart size is normal. There is no pericardial or pleural effusion. There is a 13 x 9 mm semi solid nodular opacity in the medial left lung apex which appears stable. Note is made of mild scarring. There are several granulomas in the right lung. There is new, tree in bud opacity in the lateral right lower lobe best seen on image 51 consistent with inflammatory/infectious etiology. Several chronic left lateral rib fractures are identified. Limited images of the upper abdomen reveal multiple low-attenuation masses in the liver, favor cysts. IMPRESSION: Semi solid nodular opacity in the left lung apex, stable. Recommend additional follow-up in 12 months to evaluate for stability. New, tree in bud opacity in the right lower lobe consistent with inflammatory/infectious etiology. Reviewed, Interpreted and Dictated by Isacc Oliveira III, MD Transcribed by Aline Godoy Authenticated and . [facility]
== END ==
LOC: RAD 12:41
PROVIDERS: PCP Emergency Medicine; Visit Provider Internal Medicine Pulmonary Disease
DX: R91.8 Other nonspecific abnormal finding of lung field (principal)
CPT/HCPCS: 71250

== ENCOUNTER → 2022-05-16 10:28 | Outpatient (CLI) | payer MEDICARE, SELFPAY | PROVIDERS: PCP Emergency Medicine; Visit Provider Surgery | DX: Z01.812 Encounter for preprocedural laboratory examination (principal); Z20.822 Contact with and (suspected) exposure to COVID-19; Z12.11 Encounter for screening for malignant neoplasm of colon | CPT/HCPCS: C9803; U0003; U0005 ==

== ENCOUNTER 2022-05-18 11:26 | Day surgery (SDC) | payer MEDICARE, SELFPAY ==
[2022-05-16 09:39] VITALS: BMI 23.6
[2022-05-18 11:44] VITALS: BP 178/71; PULSE 86; RESP 18; TEMP 36.2; O2SAT 98
[2022-05-18 11:53] LABS: POC Glucose,Bedside 118 (70-110)
[2022-05-18 11:57] VITALS: O2SAT 98
--- NOTE | 2022-05-18 12:10 | P.PN_ITS ---
[facility] Anesthesia Checklist - Patient Identification Patient Identification: Arm Band - Structural Data Admitted From: Home Planned Operative Procedure/s: colonoscopy Consent for Planned Operative Procedure(s) Verified: Yes Verified Documents: Surgical Consent, History and Physical - NPO Status Verified Time NPO: 00:00 - Additional verifications Anesthesia Reactions: No - Airway Assessment C-Spine Mobility Assessed: Yes (mp2) TMJ Mobility Assessed: Yes Dentition: Edentulous - Neurological Assessment Level of Consciousness: Awake, Alert - Anesthesia Plan Anesthesia Risk discussed: Yes Anesthesia Plan: Verified ASA Class: III Anesthesia Type: MAC [facility] History I have reviewed the patient's past medical history: Yes Medical History: Reports:: Coronary Artery Disease, Diabetes Mellitus Type 2, Hyperlipidemia, Hypertension Denies:: Cancer, Diabetes Mellitus Type 1, Internal Pacemaker, MRSA, Seizures *Have you ever received a pneumonia vaccine?: No *Have you received a flu vaccine this season?: No Anesthesia experience/problems:: nac Other Surgeries: Yes: Cardiac Catheterization, Colonoscopy, Coronary Stent. No: Pacemaker Amputation: No Fractures: No - *Social History Last grade of school completed: 7th or 8th Smoking Status: Current every day smoker Tobacco Type: cigarettes # Packs/Day (cigarettes): 1 #Yrs smoked (if former smoker): 50 Alcohol Intake: current Alcohol Intake Frequency:: a few times a week Substance Use Type: denies use *Occupational Status:: retired Housing: house Household Members: none *Travel in the last 8 weeks: None Family Hx:: Cancer, Diabetes
[2022-05-18 12:42] VITALS: BP 105/56; PULSE 59; RESP 16; TEMP 36.6; O2SAT 97
--- NOTE | 2022-05-18 12:43 | HMH.SCOPE ---
- Procedure: Date: 05/18/22 Patient Date of :: 1945 Procedure Performed:: Colonoscopy to terminal ileum with numerous polypectomy Indications:: Patient is a 76-year-old male who was scheduled for screening colonoscopy after referral by Dr. Dean. It appears that the patient had colonoscopy in March [address] 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 Apparently this may have had a cancerous component. He had a follow-up sigmoidoscopy with Dr. Scott Mccallum in June 2009 and had sigmoid polyp removed. 1 year follow-up colonoscopy was recommended. That was 13 years ago. Performing Provider:: Isacc Rodgers MD Referring Provider:: Ab Dean Sedation:: MAC sedation Procedure:: Patient was taken to endoscopy procedure room. He was positioned in lateral decubitus position. Adequate intravenous sedation was achieved with anesthesia titration of propofol. Variable stiffness Olympus colonoscope was inserted via the anus. It was advanced to the cecum. He did have some significant redundancy of the sigmoid colon. Ileocecal valve and appendiceal orifice were clearly identified. Colonoscope was slowly withdrawn through the colon with careful surveillance. Numerous polyps were encountered. Please see findings below. These were removed by a variety of technique. Retroflexion within the rectum revealed no evidence of any pathologic internal hemorrhoids. Colonoscope was withdrawn. Findings:: Cecal polyp x3, 2 removed with biopsy forceps and 1 with cold snare Ascending colon polyp x3 2 removed with biopsy forceps and 1 with snare Hepatic flexure polyp removed with cold cutting snare Sigmoid polyp removed with cold cutting snare. Post polypectomy clip was placed for hemostasis He had several diminutive hyperplastic appearing rectosigmoid polyps, more prominent were removed with biopsy forceps He had a distal rectal polyp removed with cold snare. Clip was placed for hemostasis He had approximately 12 polyps removed many of which appeared adenomatous Recommendations:: Follow-up colonoscopy pending pathology. Given prior history likely within 2 years. I will see if I can obtain his previous pathology. Complications:: None immediately apparent Estimated blood obtained (mL): 4
[2022-05-18 12:52] VITALS: BP 125/72; PULSE 75; RESP 16; O2SAT 97
[2022-05-18 13:02] VITALS: BP 144/72; PULSE 73; RESP 16; O2SAT 98
[2022-05-18 13:12] VITALS: BP 131/81; PULSE 69; RESP 16; TEMP 36.4; O2SAT 98
== END 2022-05-18 13:12 | disposition home or self-care (01) ==
LOC: OUTP 11:28
PROVIDERS: PCP Emergency Medicine; Visit Provider Surgery
PROC: 0DJD8ZZ Inspection of Lower Intestinal Tract, Via Natural or Artificial Opening Endoscopic (ICD-10-PCS; principal; 2022-05-18 12:30)
DX: Z12.11 Encounter for screening for malignant neoplasm of colon (principal); K63.5 Polyp of colon; Z86.010 Personal history of colon polyps; E11.9 Type 2 diabetes mellitus without complications; I25.10 Atherosclerotic heart disease of native coronary artery without angina pectoris; I10 Essential (primary) hypertension; E78.5 Hyperlipidemia, unspecified; Z72.0 Tobacco use; Z79.899 Other long term (current) drug therapy
CPT/HCPCS: 45380; 45385; 82962; 88305

== ENCOUNTER → 2022-06-12 14:41 | Outpatient (CLI) | payer MEDICARE, SELFPAY ==
[2022-06-14 10:57] LABS: PSA, Free 2.06 ng/mL; Prostate Specific Ag 7.4 ng/mL (0.0-4.0)
== END ==
PROVIDERS: PCP Emergency Medicine; Visit Provider Urology
DX: R97.20 Elevated prostate specific antigen [PSA] (principal)
CPT/HCPCS: 36415; 84153; 84154

== ENCOUNTER 2022-09-25 08:08 | Day surgery (SDC) | payer MEDICARE, SELFPAY ==
[2022-09-21 14:55] VITALS: BMI 22.9
[2022-09-25] VITALS (7 sets, daily range): BP systolic 131–157; BP diastolic 64–74; PULSE 57–64; RESP 16–18; TEMP 36.6–36.9; O2SAT 99–100
--- NOTE | 2022-09-25 08:43 | SUR.PREOP ---
Family waiting in the car. Unable to give pt progress #.
[2022-09-25 08:47] LABS: POC Glucose,Bedside 135 (70-110)
== END 2022-09-25 09:45 | disposition home or self-care (01) ==
PROVIDERS: PCP Emergency Medicine; Visit Provider Ophthalmology
DX: H25.813 Combined forms of age-related cataract, bilateral (principal); Z72.0 Tobacco use; E11.36 Type 2 diabetes mellitus with diabetic cataract
CPT/HCPCS: 66982; 82962; V2632

== ENCOUNTER 2022-11-06 08:12 | Day surgery (SDC) | payer MEDICARE, SELFPAY ==
[2022-11-06] VITALS (10 sets, daily range): BP systolic 141–188; BP diastolic 73–99; PULSE 61–80; RESP 14–18; TEMP 36.4–36.6; O2SAT 96–100; BMI 22.9
[2022-11-06 09:02] LABS: POC Glucose,Bedside 116 (70-110)
== END 2022-11-06 09:18 | disposition home or self-care (01) ==
PROVIDERS: PCP Nurse Practitioner Family; Visit Provider Ophthalmology
DX: H25.813 Combined forms of age-related cataract, bilateral (principal); E11.9 Type 2 diabetes mellitus without complications; F17.210 Nicotine dependence, cigarettes, uncomplicated; Z79.899 Other long term (current) drug therapy
CPT/HCPCS: 66982; 82962; V2632

== ENCOUNTER → 2022-12-12 16:20 | Outpatient (CLI) | payer MEDICARE, SELFPAY ==
[2022-12-12 15:09] LABS: Basophils # 0.1 K/mm3 (0-0.2); Basophils % 0.9 % (0.1-2.0); Eosinophils # 0.2 K/mm3 (0.0-0.4); Eosinophils % 3.6 % (0.1-12.0); Hematocrit 34.2 % (42.0-52.0); Hemoglobin 11.2 g/dL (14.1-18.0); Lymphocytes # 0.9 K/mm3 (0.7-4.5); Mean Corpuscular HGB Conc 32.8 g/dL (31.8-35.4); Mean Corpuscular Hemoglobin 30.4 pg (27.0-31.2); Mean Corpuscular Volume 92.8 fl (80-94); Mean Platelet Volume 8.5 fl (7.4-10.4); Monocytes # 0.3 K/mm3 (0.1-1.0); Monocytes % 6.7 % (1.7-9.3); Neutrophils # 3.4 K/mm3 (1.8-7.8); Neutrophils % 69.8 % (37.0-80.0); Platelet Count 198 K/mm3 (142-424); Red Blood Count 3.68 M/mm3 (4.60-6.20); Red Cell Distribution Width 13.9 % (11.5-17.5); White Blood Count 4.8 K/mm3 (4.8-10.8)
[2022-12-12 15:18] LABS: Alanine Aminotransferase 23 U/L (12-78); Albumin Level 4.8 g/dl (3.5-5.0); Albumin/Globulin Ratio 1.7 (1.1-1.8); Alkaline Phosphatase 53 U/L (38-126); Anion Gap 12.3 mEq/L (5-15); Aspartate Amino Transferase 30 U/L (17-59); Bilirubin,Total 0.7 mg/dl (0.2-1.3); Blood Urea Nitrogen 24 mg/dl (9-20); Calcium 9.8 mg/dl (8.4-10.2); Carbon Dioxide 27 mmol/L (22.0-30.0); Chloride 105 mmol/L (98-107); Cholesterol 155 mg/dl (140-200); Estimated Glomerular Filt Rate 31 ml/min (>60); GFR (African American) 37 ML/MIN (>60); Globulin 2.8 g/dL (1.3-3.2); Glucose 107 mg/dl (74-100); HDL Cholesterol 78 mg/dl (40-60); Potassium 4.3 mmoL/L (3.5-5.1); Sodium 140 mmol/L (136-145); Total Protein,Serum 7.6 g/dl (6.3-8.2); Triglycerides 60 mg/dl (30-150); VLDL Cholesterol 12 mg/dL (0-40)
[2022-12-12 15:36] LABS: Direct LDL Cholesterol 58.26 mg/dL (100-129)
[2022-12-12 15:45] LABS: 25-OH Vitamin D, Total 22.6 ng/mL (30-100)
[2022-12-12 16:00] LABS: Prostate Specific Ag Screen 7.4 ng/ml (0.0-4.0); Thyroid Stimulating Hormone 3.54 uIU/mL (0.465-4.68)
[2022-12-12 18:13] LABS: Hemoglobin A1C 5.9 % (4.0-6.0)
== END ==
PROVIDERS: PCP Nurse Practitioner Family; Visit Provider Nurse Practitioner Family
DX: E11.59 Type 2 diabetes mellitus with other circulatory complications (principal); Z12.5 Encounter for screening for malignant neoplasm of prostate; E55.9 Vitamin D deficiency, unspecified; I10 Essential (primary) hypertension; Z79.84 Long term (current) use of oral hypoglycemic drugs
CPT/HCPCS: 80053; 80061; 82306; 83036; 84443; 85025; G0103

== ENCOUNTER → 2023-02-28 11:30 | Outpatient (CLI) | payer MEDICARE, SELFPAY ==
[2023-02-28 14:52] LABS: Chloride 98 mmol/L (98-107); Potassium 3.5 mmoL/L (3.5-5.1); Sodium 142 mmol/L (136-145)
[2023-02-28 14:55] LABS: Anion Gap 15.5 mEq/L (5-15); Blood Urea Nitrogen 24 mg/dl (9-20); Calcium 10.5 mg/dl (8.4-10.2); Carbon Dioxide 32 mmol/L (22.0-30.0); Estimated Glomerular Filt Rate 25 ml/min (>60); GFR (African American) 31 ML/MIN (>60); Glucose 95 mg/dl (74-100)
== END ==
PROVIDERS: PCP Nurse Practitioner Family; Visit Provider Nurse Practitioner Family
DX: I10 Essential (primary) hypertension (principal)
CPT/HCPCS: 80048

== ENCOUNTER → 2023-03-15 08:48 | Outpatient (CLI) | payer MEDICARE, SELFPAY ==
--- NOTE | 2023-03-15 08:49 | CA_ITS ---
FINAL REPORT CLINICAL HISTORY: HTN,SMOKER,ENLARGED PROSTATE FINDINGS: DOPPLER RENAL VESSELS Intrarenal resistive indices on the right are 0.67, normal . Intrarenal resistive indices on the left are 0.79, normal . Right main renal artery systolic velocity: 119 cm/sec. Aortic-right renal artery flow velocity ratio: 0.64 COMMENT: No evidence of hemodynamically significant renal artery stenosis . Left main renal artery systolic velocity: 98 cm/sec. Aortic-left renal artery flow velocity ratio: 0.53 COMMENT: No evidence of hemodynamically significant renal artery stenosis . CONCLUSION: No evidence of hemodynamically significant renal artery stenosis CTA or gadolinium-enhanced MR may be considered as a more sensitive exam. Alternatively noncontrast MRI may be considered for assessing main renal arteries for stenosis as a more sensitive exam if the patient has renal insufficiency. Reviewed, Interpreted and Dictated by Ricky Alvarez MD Transcribed by Myrtle Lopez Authenticated and [facility]
== END ==
LOC: RT 08:49
PROVIDERS: PCP Nurse Practitioner Family; Visit Provider Nurse Practitioner Family
DX: N18.9 Chronic kidney disease, unspecified (principal); I10 Essential (primary) hypertension
CPT/HCPCS: 93976

== ENCOUNTER → 2023-04-17 09:02 | Outpatient (CLI) | payer MEDICARE, SELFPAY ==
[2023-04-17 09:47] LABS: Microscopic, Urine URINE MICROSCOPIC (MICROSCOPIC)
[2023-04-17 10:04] LABS: Basophils % 0.7 % (0.1-2.0); Eosinophils # 0.2 K/mm3 (0.0-0.4); Eosinophils % 3.8 % (0.1-12.0); Hematocrit 28.7 % (42.0-52.0); Hemoglobin 9.5 g/dL (14.1-18.0); Lymphocytes % 20.2 % (10-50); Mean Corpuscular HGB Conc 33.1 g/dL (31.8-35.4); Mean Corpuscular Hemoglobin 29.4 pg (27.0-31.2); Mean Corpuscular Volume 88.9 fl (80-94); Mean Platelet Volume 8.1 fl (7.4-10.4); Monocytes # 0.3 K/mm3 (0.1-1.0); Monocytes % 6.7 % (1.7-9.3); Neutrophils # 3.2 K/mm3 (1.8-7.8); Neutrophils % 68.6 % (37.0-80.0); Platelet Count 193 K/mm3 (142-424); Red Blood Count 3.23 M/mm3 (4.60-6.20); Red Cell Distribution Width 13.5 % (11.5-17.5); White Blood Count 4.7 K/mm3 (4.8-10.8)
[2023-04-17 10:07] LABS: Appearance,Urine CLEAR (Clear); Bilirubin,Urine Negative (Negative); Blood, Urine Negative (Negative); Color,Urine YELLOW (Yellow); Glucose,Urine (UA) 3+ (Negative); Ketones,Urine Negative (Negative); Leukocyte Esterase,Urine Negative (Negative); Nitrate,Urine Negative (Negative); PH,Urine 5.5 (5.0-8.5); Protein,Urine Negative (Negative); Urobilinogen,Urine 0.2 EU/dl (0.2)
[2023-04-17 10:21] LABS: Bacteria,Urine Trace /lpf; Squamous Epithelial Cell,Urine Occasional #/hpf (0-5); WBC,Urine Occasional #/hpf (0-3)
[2023-04-17 10:28] LABS: Albumin Level 4.4 g/dl (3.5-5.0); Anion Gap 16.7 mEq/L (5-15); Blood Urea Nitrogen 33 mg/dl (9-20); Calcium 10.7 mg/dl (8.4-10.2); Carbon Dioxide 27 mmol/L (22.0-30.0); Chloride 104 mmol/L (98-107); Estimated Glomerular Filt Rate 16 ml/min (>60); GFR (African American) 19 ML/MIN (>60); Glucose 112 mg/dl (74-100); Phosphorous 5.3 mg/dl (2.5-4.5); Potassium 3.7 mmoL/L (3.5-5.1); Sodium 144 mmol/L (136-145)
[2023-04-17 10:32] LABS: Creatinine,Urine Random 54 mg/dL (Not Estab.)
[2023-04-17 10:52] LABS: 25-OH Vitamin D, Total > 126 ng/mL (30-100)
== END ==
PROVIDERS: PCP Internal Medicine Nephrology; Visit Provider Nurse Practitioner Family
DX: R06.02 Shortness of breath (principal); N18.4 Chronic kidney disease, stage 4 (severe); E55.9 Vitamin D deficiency, unspecified
CPT/HCPCS: 36415; 80069; 81001; 82306; 82570; 83970; 84155; 85025; 93306

== ENCOUNTER → 2023-05-13 15:14 | Outpatient (CLI) | payer MEDICARE, SELFPAY ==
--- NOTE | 2023-05-13 15:14 | CT_ITS ---
FINAL REPORT TECHNIQUE: Axial imaging of the chest was obtained without contrast. Reformatted images were also obtained and reviewed.This study was performed with techniques to keep radiation doses as low as reasonably achievable, (ALARA). Individualized dose reduction technique using automated exposure control or adjustment of mA and/or kV according to the patient's size were employed. CLINICAL HISTORY: 12 monthF/U COMPARISON: 03/30/2022, 07/28/2021 FINDINGS: There is no axillary adenopathy. There is no hilar or mediastinal mass or adenopathy. Heart size is normal. There are persistent but partially improved tree-in-bud opacities in the lateral right lower lobe which most likely represent infectious process. There are multiple calcified granulomas. There are new, small bilateral pleural effusions. There is no pericardial effusion. 13 mm, semisolid nodule in the anterior left upper lobe is stable and likely benign. Limited imaging of the upper abdomen demonstrates multiple hepatic cysts. There is partially imaged left hydronephrosis and possible right hydronephrosis. There are multiple chronic left rib fractures noted. No pneumothorax. IMPRESSION: Stable semisolid 13 mm left upper lobe nodule, likely benign. Persistent but partially improved tree-in-bud opacities in the lateral right lower lobe, likely infectious. Partially imaged left hydronephrosis and possible right hydronephrosis. Consider ultrasound for further evaluation. New, small bilateral pleural effusions. Reviewed, Interpreted and Dictated by Isacc Oliveira III, MD Transcribed by Loreto Banegas Authenticated and [facility]
== END ==
LOC: RAD 15:14
PROVIDERS: PCP Internal Medicine Nephrology; Visit Provider Internal Medicine Pulmonary Disease
DX: R91.8 Other nonspecific abnormal finding of lung field (principal)
CPT/HCPCS: 71250

== ENCOUNTER 2023-05-30 09:31 | Outpatient (CLI) | payer MEDICARE, SELFPAY ==
--- NOTE | 2023-05-30 09:35 | US_ITS ---
FINAL REPORT CLINICAL HISTORY: BILATERAL HYDRONEPHROSIS FINDINGS: The right kidney measures 12.0 cm in length. It is normal in echogenicity. There is severe right hydronephrosis. The left kidney measures 11.2 cm in length. It is normal in echogenicity. There is no hydronephrosis. The spleen measures 10.6 cm, normal. The urinary bladder is significantly distended. The proximal ureters are also dilated. IMPRESSION: Significantly distended urinary bladder with severe right hydronephrosis, may be due to reflux. Reviewed, Interpreted and Dictated by Isacc Oliveira III, MD Transcribed by Aline Godoy Authenticated and [facility]
[2023-05-30 10:59] VITALS: BMI 24.4
[2023-05-30 11:38] LABS: Microscopic,Cath URINE MICROSCOPIC (MICROSCOPIC)
[2023-05-30 11:40] LABS: Appearance,Urine/Cath CLEAR (Clear); Bilirubin,Cath Negative (Negative); Blood, Urine/Cath Negative (Negative); Color,Urine/Cath YELLOW (Yellow); Glucose,Urine/Cath (UA) TRACE (Negative); Ketones,Urine/Cath Negative (Negative); Leukocyte Esterase,Cath Negative (Negative); Nitrate,Cath Negative (Negative); PH,Urine/Cath 5.5 (5.0-8.5); Protein,Urine/Cath Negative (Negative); Specific Gravity, Urine/Cath <= 1.005 (1.005-1.030); Urobilinogen,Cath 0.2 EU/dl (0.2)
[2023-05-30 12:15] LABS: Bacteria,Urine/Cath TRACE /lpf; WBC,Urine/Cath Occasional #/hpf (0-3)
== END 2023-05-30 11:35 | disposition home or self-care (01) ==
PROVIDERS: PCP Nurse Practitioner Family; Visit Provider Internal Medicine Nephrology
DX: N13.30 Unspecified hydronephrosis (principal)
CPT/HCPCS: 76770; 81001; G0463

== ENCOUNTER 2023-05-30 20:49 | Emergency (ER) | payer MEDICARE, SELFPAY ==
[2023-05-30 20:49] VITALS: BP 122/49; PULSE 90; RESP 14; TEMP 36.8; O2SAT 99; BMI 22.4
[2023-05-30 21:00] VITALS: BP 122/49; PULSE 91; RESP 14; O2SAT 99
[2023-05-30 21:30] VITALS: BP 112/50; PULSE 79; O2SAT 98
--- NOTE | 2023-05-30 21:57 | PC.NURSE ---
rounded on pt. no needs at this time. Visitor at bs call light within reach
--- NOTE | 2023-05-30 22:23 | HMH.EDGENADL ---
Discharge Plan Disposition Chief Complaint: Urogenital-Male Prescriptions Prescriptions: No Action albuterol sulfate 90 mcg/actuation HFA aerosol inhaler 1 inh IH Q6H PRN (Reason: shortness of breath or wheezing) 90 Days Qty: 8.5 3RF aspirin 81 mg tablet,delayed release (DR/EC) See Rx Instructions .Route .COMPLEX Qty: 90 3RF Rx Instructions: Take 1 tablet by mouth once daily clopidogrel 75 mg tablet 75 mg PO DAILY Qty: 90 1RF doxazosin 4 mg tablet 4 mg PO HS Qty: 90 1RF lisinopril 10 mg tablet 10 mg PO DAILY Qty: 90 1RF metformin 500 mg tablet See Rx Instructions .Route .COMPLEX Qty: 90 1RF Rx Instructions: Take 1 tablet by mouth once daily rosuvastatin 20 mg tablet See Rx Instructions .Route .COMPLEX Qty: 90 1RF Rx Instructions: Take 1 tablet by mouth once daily Jardiance 10 mg tablet 10 mg PO DAILY Qty: 30 2RF amlodipine 10 mg tablet See Rx Instructions .ROUTE .COMPLEX Qty: 90 1RF Dose Instruction: Take 1 tablet by mouth once daily Rx Instructions: Take 1 tablet by mouth once daily Referrals Follow up/Referrals: Deep Keen APRN [Primary Care Provider] - See instructions Instructions Patient Instructions: DI for Urinary Tract Infection (UTI), DI for Urinary Tract Infection in Children Discharge ED Provider: Torey Gregg Adult HPI General Chief complaint: Urogenital-Male Stated complaint: blood in urine Time Seen by Provider: 05/30/23 22:00 Mode of Arrival: Wheelchair Source of Information: Patient and Relative Limitations: No Limitations Description of Symptoms (Recalled from ER Triage Doc. by RN): Patient to ED via wheelchair. He was seen earlier today for renal US, and was found to be retaining urine. Taken to infusion where catheter was placed with immediate output of 2L or urine. Since insertion patient has noticed blood in urine that has become moderate. 5/10 pain, with burining and stinging. On blood thinners at present, of clopidigrel and ASA. History of Present Illness HPI narrative: 77-year-old male, history of coronary artery disease, COPD, BPH, diabetes presents with blood in his catheter. History obtained from patient, family members. Patient was recently noted to have severe hydronephrosis and distended bladder on CT scan. Patient had an ultrasound today which showed severe right-sided hydronephrosis and distended urinary bladder. Patient had Medina placed today with approximate 2 L urine output. Patient has had gradually worsening kidney function. Creatinine 2.1 in December, 3.8 in April, 4.1 today. Patient shortly after had lots of blood in his catheter. He reports that he has had urine output but it has been quite bloody. On evaluation patient has a tender distended bladder on exam. No urine was able to be aspirated from the catheter. The urine in the bag was frankly bloody. Catheter was irrigated with numerous clots output. Patient reports no recent fever or illness. Patient is on aspirin and Plavix for prior stents. Related Data Previous Rx's Medication Instructions Recorded albuterol sulfate 90 mcg/actuation 1 inh inhalation Q6H PRN shortness 12/12/22 aerosol inhaler of breath or wheezing 90 days #8.5 grams aspirin 81 mg tablet,delayed See Rx Instructions .Route 12/12/22 release .COMPLEX Blood thinner #90 tabs clopidogrel 75 mg tablet 75 mg PO DAILY Blood thinner #90 12/12/22 tabs doxazosin 4 mg tablet 4 mg PO HS * #90 tabs 12/12/22 lisinopril 10 mg tablet 10 mg PO DAILY bp #90 tabs 12/12/22 metformin 500 mg tablet See Rx Instructions .Route 12/12/22 .COMPLEX dm #90 tabs rosuvastatin 20 mg tablet See Rx Instructions .Route 12/12/22 .COMPLEX hld #90 tabs empagliflozin 10 mg tablet 10 mg PO DAILY #30 tabs 03/01/23 (Jardiance) amlodipine 10 mg tablet See Rx Instructions .Route 04/29/23 .COMPLEX #90 tabs Allergies Allergy/AdvReac Type Severity Reaction Status Date / Time cetirizine
[2023-05-30 23:00] VITALS: BP 117/55; PULSE 78; O2SAT 98
[2023-05-30 23:18] LABS: Basophils % 0.2 % (0.1-2.0); Eosinophils # 0.1 K/mm3 (0.0-0.4); Eosinophils % 0.9 % (0.1-12.0); Hemoglobin 9.9 g/dL (14.1-18.0); Lymphocytes # 0.5 K/mm3 (0.7-4.5); Lymphocytes % 7.4 % (10-50); Mean Corpuscular Hemoglobin 29.9 pg (27.0-31.2); Mean Corpuscular Volume 90.5 fl (80-94); Mean Platelet Volume 8.7 fl (7.4-10.4); Monocytes # 0.3 K/mm3 (0.1-1.0); Monocytes % 4.7 % (1.7-9.3); Neutrophils # 6.2 K/mm3 (1.8-7.8); Neutrophils % 86.7 % (37.0-80.0); Platelet Count 255 K/mm3 (142-424); Red Blood Count 3.31 M/mm3 (4.60-6.20); Red Cell Distribution Width 13.8 % (11.5-17.5); White Blood Count 7.1 K/mm3 (4.8-10.8)
[2023-05-30 23:21] LABS: MANUAL DIFFERENTIAL MANUAL DIFFERENTIAL (MANUAL DIFF)
[2023-05-30 23:26] LABS: Alanine Aminotransferase 26 U/L (12-78); Albumin Level 4.5 g/dl (3.5-5.0); Albumin/Globulin Ratio 1.4 (1.1-1.8); Alkaline Phosphatase 62 U/L (38-126); Anion Gap 16.3 mEq/L (5-15); Aspartate Amino Transferase 25 U/L (17-59); Bilirubin,Total 0.2 mg/dl (0.2-1.3); Blood Urea Nitrogen 56 mg/dl (9-20); Calcium 8.9 mg/dl (8.4-10.2); Carbon Dioxide 19 mmol/L (22.0-30.0); Chloride 110 mmol/L (98-107); Creatinine Clearance Estimated 15 mL/min (50-200); Estimated Glomerular Filt Rate 14 ml/min (>60); GFR (African American) 17 ML/MIN (>60); Globulin 3.2 g/dL (1.3-3.2); Glucose 182 mg/dl (74-100); Potassium 5.3 mmoL/L (3.5-5.1); Sodium 140 mmol/L (136-145); Total Protein,Serum 7.7 g/dl (6.3-8.2)
--- NOTE | 2023-05-30 23:34 | PC.NURSE ---
Critical received from Jenni in lab. Patient Creat 4.1. Dr. Gregg notified.
--- NOTE | 2023-05-30 23:41 | PC.NURSE ---
Called [facility] about transfering the pt to a facility for urology. Facesheet faxed to Radha at [facility]. CR
[2023-05-30 23:42] LABS: Lymphocytes % 7 % (10-50); Monocytes % 1 % (2-9); Neutrophils % 92 % (42-76); Platelet Estimate Normal; RBC Morphology Normal; Total Cells Counted 100
--- NOTE | 2023-05-30 23:54 | ECG_ITS ---
APPROVED REPORT Exam: Resting ECG HR:71 bpm ECG Measurements Heart Rate 71 AXES OR 169 P 74 QRSd 109 QRS -55 QT 367 T 6 QTc 390 Conclusion SINUS RHYTHM LEFT ANTERIOR FASCICULAR BLOCK [QRS AXIS <= -45, QR IN I, RS IN II] SEPTAL MYOCARDIAL INFARCTION , OF INDETERMINATE AGE [40+ ms Q WAVE IN V1/V2] ABNORMAL ECG INTERPRETATION BASED ON A DEFAULT AGE OF 40 YEARS UNCONFIRMED REPORT Electronically signed by : Casa Medina MD 05/31/2023 08:39:06
--- NOTE | 2023-05-31 00:14 | PC.NURSE ---
[facility] [place] called and states they didn't have facility that had urology
--- NOTE | 2023-05-31 00:14 | PC.NURSE ---
No availability with [facility]
--- NOTE | 2023-05-31 00:20 | PC.NURSE ---
director call center sales with [facility], Dr. Colvin [facility], urology conservation or heritage architect will be paged
--- NOTE | 2023-05-31 00:26 | PC.NURSE ---
Dr. Colvin with [facility] on phone with ED doctor
--- NOTE | 2023-05-31 00:31 | PC.NURSE ---
Dr. Colvin, urology @ [facility], accepted pt. waiting on return call from hospitalist
--- NOTE | 2023-05-31 00:35 | PC.NURSE ---
pt daughter notified of pt transport. Daughter would prefer to drive her father to the facility
--- NOTE | 2023-05-31 00:45 | PC.NURSE ---
pt. accepted by hospitalist @ [facility]
[2023-05-31 00:49] VITALS: BP 116/55; PULSE 86; O2SAT 99
--- NOTE | 2023-05-31 00:52 | PC.NURSE ---
Leslie from Transfer center called with room placement, report to be called to [phone]. Face sheet faxed
--- NOTE | 2023-05-31 01:09 | PC.NURSE ---
Report called to Darryl Espinosa at [place] [id number] Tele
[2023-05-31 01:33] VITALS: BP 119/57; PULSE 81; RESP 14; TEMP 36.8; O2SAT 99
== END 2023-05-31 01:35 | disposition short-term general hospital (02) ==
PROVIDERS: Emergency Provider Emergency Medicine; PCP Nurse Practitioner Family
DX: N40.1 Benign prostatic hyperplasia with lower urinary tract symptoms (principal); R31.9 Hematuria, unspecified; I25.10 Atherosclerotic heart disease of native coronary artery without angina pectoris; J44.9 Chronic obstructive pulmonary disease, unspecified; E11.9 Type 2 diabetes mellitus without complications; I10 Essential (primary) hypertension; F17.210 Nicotine dependence, cigarettes, uncomplicated
CPT/HCPCS: 76770; 80053; 81001; 85007; 85025; 93005; 99285; G0463

== ENCOUNTER 2023-07-04 18:35 | Emergency (ER) | payer MEDICARE, SELFPAY ==
[2023-07-04 18:36] VITALS: BP 96/51; PULSE 89; RESP 16; TEMP 36.7; O2SAT 98; BMI 22.4
--- NOTE | 2023-07-04 19:13 | HMH.EDGENADL ---
Discharge Plan Disposition Patient Disposition: Home, Self-Care Chief Complaint: Urogenital-Male Prescriptions Prescriptions: No Action albuterol sulfate 90 mcg/actuation HFA aerosol inhaler 1 inh IH Q6H PRN (Reason: shortness of breath or wheezing) 90 Days Qty: 8.5 3RF aspirin 81 mg tablet,delayed release (DR/EC) See Rx Instructions .Route .COMPLEX Qty: 90 3RF Rx Instructions: Take 1 tablet by mouth once daily doxazosin 4 mg tablet 4 mg PO HS Qty: 90 1RF lisinopril 10 mg tablet 10 mg PO DAILY Qty: 90 1RF metformin 500 mg tablet See Rx Instructions .Route .COMPLEX Qty: 90 1RF Rx Instructions: Take 1 tablet by mouth once daily rosuvastatin 20 mg tablet See Rx Instructions .Route .COMPLEX Qty: 90 1RF Rx Instructions: Take 1 tablet by mouth once daily Jardiance 10 mg tablet 10 mg PO DAILY Qty: 30 2RF amlodipine 10 mg tablet See Rx Instructions .ROUTE .COMPLEX Qty: 90 1RF Dose Instruction: Take 1 tablet by mouth once daily Rx Instructions: Take 1 tablet by mouth once daily clopidogrel 75 mg tablet See Rx Instructions .ROUTE .COMPLEX Qty: 90 0RF Dose Instruction: TAKE 1 TABLET BY MOUTH ONCE DAILY FOR BLOOD THINNER Rx Instructions: TAKE 1 TABLET BY MOUTH ONCE DAILY FOR BLOOD THINNER Referrals Follow up/Referrals: Deep Keen APRN [Primary Care Provider] - See instructions Activity Restrictions/Add. Instructions Additional Instructions/Restrictions: At this time was felt you are safe to be discharged home. Please continue to follow-up with your urologist as scheduled. If your Clemente quits draining again please present for continued evaluation. If new or worsening symptoms please present for continued evaluation. Clinical Impressions Clinical Impression: Obstructive uropathy Instructions Patient Instructions: DI for Urinary Tract Infection (UTI), DI for Urinary Tract Infection in Children Discharge ED Provider: Migue Castillo General Adult HPI General Chief complaint: Urogenital-Male Stated complaint: surg 07/02 Hedy. unable to urinate Time Seen by Provider: 07/04/23 19:13 Mode of Arrival: Wheelchair Source of Information: Patient and Relative Limitations: No Limitations Description of Symptoms (Recalled from ER Triage Doc. by RN): Pt reports very scant amount UOP since 0700 this morning. Pt reports clemente catheter present for almost 1 month. Pt had a surgery with dr. knott last week had prostate clips placed. Pt reports unable to urinate r/t enlarge prostate. Family member reports pt has had blood in urine since surgery. History of Present Illness HPI narrative: Patient is a 77-year-old male with past medical history of recent prostate surgery who presents emergency department for evaluation of inability to void through his catheter. History is obtained by patient at bedside. He recently had a surgical procedure with Dr. Knott for BPH, Clemente was anchored and he was undergoing outpatient management. Patient has been unable to void since 7 AM this morning and has since developed low abdominal swelling, progressive pain. Patient has intermittently Plast blood in his catheter prior to this. No other acute complaints at this time. Related Data Previous Rx's Medication Instructions Recorded albuterol sulfate 90 mcg/actuation 1 inh inhalation Q6H PRN shortness 12/12/22 aerosol inhaler of breath or wheezing 90 days #8.5 grams aspirin 81 mg tablet,delayed See Rx Instructions .Route 12/12/22 release .COMPLEX Blood thinner #90 tabs doxazosin 4 mg tablet 4 mg PO HS * #90 tabs 12/12/22 lisinopril 10 mg tablet 10 mg PO DAILY bp #90 tabs 12/12/22 metformin 500 mg tablet See Rx Instructions .Route 12/12/22 .COMPLEX dm #90 tabs rosuvastatin 20 mg tablet See Rx Instructions .Route 12/12/22 .COMPLEX hld #90 tabs empagliflozin 10 mg tablet 10 mg PO DAILY #30 tabs 03/01/23 (Jardiance) amlodipine 10 mg tablet
--- NOTE | 2023-07-04 19:15 | PC.NURSE ---
Received report from charge nurse BUCK Marks.
--- NOTE | 2023-07-04 19:24 | PC.NURSE ---
Bladder scan reveals >1055 ml. Irrigated with 30ml of sterile water without any resistance or difficulty. Immediate return of yellow urine containing a small clot-type substance. Immediate continued drainage of 1325 ml. Discomfort no longer present. Re-scanned bladder with result of 0ml. MD notified. BSD attached to end of bed to monitor while awaiting dispo.
--- NOTE | 2023-07-04 21:11 | PC.NURSE ---
advised md of patient requesting to leave is possible. Dr Mann states he will discharge patient soon.
[2023-07-04 21:19] VITALS: BP 112/71; PULSE 73; RESP 16; TEMP 36.7; O2SAT 98
== END 2023-07-04 21:26 | disposition home or self-care (01) ==
PROVIDERS: Emergency Provider Emergency Medicine; PCP Nurse Practitioner Family
DX: G89.18 Other acute postprocedural pain; J44.9 Chronic obstructive pulmonary disease, unspecified; E11.9 Type 2 diabetes mellitus without complications; I10 Essential (primary) hypertension; Z87.891 Personal history of nicotine dependence; T83.091A Other mechanical complication of indwelling urethral catheter, initial encounter; Y83.8 Other surgical procedures as the cause of abnormal reaction of the patient, or of later complication, without mention of misadventure at the time of the procedure
CPT/HCPCS: 99283

== ENCOUNTER 2023-07-09 16:16 | Emergency (ER) | payer MEDICARE, SELFPAY ==
[2023-07-09] VITALS (7 sets, daily range): BP systolic 128–174; BP diastolic 62–89; PULSE 75–107; RESP 15–18; TEMP 36.5–36.7; O2SAT 95–99; BMI 22.4
--- NOTE | 2023-07-09 16:52 | HMH.EDGENADL ---
Discharge Plan Disposition Patient Disposition: Home, Self-Care Prescriptions Prescriptions: New levofloxacin 750 mg tablet 750 mg PO Q48H 7 Days Qty: 4 0RF No Action albuterol sulfate 90 mcg/actuation HFA aerosol inhaler 1 inh IH Q6H PRN (Reason: shortness of breath or wheezing) 90 Days Qty: 8.5 3RF aspirin 81 mg tablet,delayed release (DR/EC) See Rx Instructions .Route .COMPLEX Qty: 90 3RF Rx Instructions: Take 1 tablet by mouth once daily doxazosin 4 mg tablet 4 mg PO HS Qty: 90 1RF lisinopril 10 mg tablet 10 mg PO DAILY Qty: 90 1RF metformin 500 mg tablet See Rx Instructions .Route .COMPLEX Qty: 90 1RF Rx Instructions: Take 1 tablet by mouth once daily rosuvastatin 20 mg tablet See Rx Instructions .Route .COMPLEX Qty: 90 1RF Rx Instructions: Take 1 tablet by mouth once daily Jardiance 10 mg tablet 10 mg PO DAILY Qty: 30 2RF amlodipine 10 mg tablet See Rx Instructions .ROUTE .COMPLEX Qty: 90 1RF Dose Instruction: Take 1 tablet by mouth once daily Rx Instructions: Take 1 tablet by mouth once daily clopidogrel 75 mg tablet See Rx Instructions .ROUTE .COMPLEX Qty: 90 0RF Dose Instruction: TAKE 1 TABLET BY MOUTH ONCE DAILY FOR BLOOD THINNER Rx Instructions: TAKE 1 TABLET BY MOUTH ONCE DAILY FOR BLOOD THINNER Referrals Follow up/Referrals: Deep Keen APRN [Primary Care Provider] - See instructions Activity Restrictions/Add. Instructions Additional Instructions/Restrictions: At this time it was felt you are safe to be discharged home. If new or worsening symptoms please do not hesitate to return the emergency department. If symptoms persist please follow-up with your doctor within 48 hours for repeat evaluation. Please take antibiotics as prescribed. Clinical Impressions Clinical Impression: Catheter-associated urinary tract infection, Creatinine elevation Instructions Patient Instructions: DI for Urinary Tract Infection (UTI), DI for Urinary Tract Infection in Children Discharge ED Provider: Migue Castillo General Adult HPI General Chief complaint: Urogenital-Male Stated complaint: sent byDR.Crowecatheter placement Time Seen by Provider: 07/09/23 16:49 Mode of Arrival: Ambulatory Source of Information: Patient Limitations: No Limitations Description of Symptoms (Recalled from ER Triage Doc. by RN): pt presents to ED stating I need a catheter put in. per report pt had surgery on Saturday and went home with a catheter. per report pt's catheter was removed this morning. family states she called Dr. Knott who stated to bring pt to ED and place catheter. History of Present Illness HPI narrative: Patient is a 77-year-old male with past medical history of recent prostate surgery with indwelling Medina which was subsequently removed to undergo a spontaneous voiding trial who presents emergency department for inability to pee. Patient underwent surgical procedure with Dr. Knott for BPH, Medina was subsequently anchored and removed this morning however since removal at approximately 10:30 AM he has been unable to void. He presents here for continued evaluation. Related Data Previous Rx's Medication Instructions Recorded albuterol sulfate 90 mcg/actuation 1 inh inhalation Q6H PRN shortness 12/12/22 aerosol inhaler of breath or wheezing 90 days #8.5 grams aspirin 81 mg tablet,delayed See Rx Instructions .Route 12/12/22 release .COMPLEX Blood thinner #90 tabs doxazosin 4 mg tablet 4 mg PO HS * #90 tabs 12/12/22 lisinopril 10 mg tablet 10 mg PO DAILY bp #90 tabs 12/12/22 metformin 500 mg tablet See Rx Instructions .Route 12/12/22 .COMPLEX dm #90 tabs rosuvastatin 20 mg tablet See Rx Instructions .Route 12/12/22 .COMPLEX hld #90 tabs empagliflozin 10 mg tablet 10 mg PO DAILY #30 tabs 03/01/23 (Jardiance) amlodipine 10 mg tablet See Rx Instructions .Route 04/29/23 .COMPLEX #90 tabs clopidogrel
--- NOTE | 2023-07-09 17:05 | PC.NURSE ---
pt ambulatory to restroom without complications
--- NOTE | 2023-07-09 17:18 | PC.NURSE ---
bladder scan >688, states to place f/c.
--- NOTE | 2023-07-09 17:45 | PC.NURSE ---
pt given a cup of coffee. No other needs at this time
--- NOTE | 2023-07-09 18:47 | PC.NURSE ---
Rupesh called in lab about UA; they have received it in lab
[2023-07-09 18:49] LABS: Microscopic, Urine URINE MICROSCOPIC (MICROSCOPIC)
[2023-07-09 18:52] LABS: Appearance,Urine CLEAR (Clear); Bilirubin,Urine Negative (Negative); Blood, Urine 2+ (Negative); Color,Urine YELLOW (Yellow); Glucose,Urine (UA) 3+ (Negative); Ketones,Urine Negative (Negative); Leukocyte Esterase,Urine 2+ (Negative); Nitrate,Urine POSITIVE (Negative); Protein,Urine 2+ (Negative); Urobilinogen,Urine 0.2 EU/dl (0.2)
[2023-07-09 19:05] LABS: Bacteria,Urine Trace /lpf; Squamous Epithelial Cell,Urine Occasional #/hpf (0-5); WBC,Urine 20-50 #/hpf (0-3)
[2023-07-09 20:11] LABS: Basophils % 0.3 % (0.1-2.0); Eosinophils # 0.2 K/mm3 (0.0-0.4); Eosinophils % 1.5 % (0.1-12.0); Hematocrit 34.5 % (42.0-52.0); Hemoglobin 11.2 g/dL (14.1-18.0); Lymphocytes # 0.9 K/mm3 (0.7-4.5); Lymphocytes % 7.4 % (10-50); Mean Corpuscular HGB Conc 32.3 g/dL (31.8-35.4); Mean Corpuscular Hemoglobin 29.1 pg (27.0-31.2); Mean Corpuscular Volume 89.9 fl (80-94); Mean Platelet Volume 7.8 fl (7.4-10.4); Monocytes # 0.6 K/mm3 (0.1-1.0); Monocytes % 5.3 % (1.7-9.3); Neutrophils # 10.3 K/mm3 (1.8-7.8); Neutrophils % 85.6 % (37.0-80.0); Platelet Count 282 K/mm3 (142-424); Red Blood Count 3.84 M/mm3 (4.60-6.20); Red Cell Distribution Width 13.7 % (11.5-17.5)
[2023-07-09 20:14] LABS: MANUAL DIFFERENTIAL MANUAL DIFFERENTIAL (MANUAL DIFF)
--- NOTE | 2023-07-09 20:21 | PC.NURSE ---
spoke with DES MARSH. the PO levofloaxin was cancelled. PHARM wants to wait on the levofloaxin until lab work comes back. I advised DES we would wait and call back once results are in.
[2023-07-09 20:32] LABS: Chloride 105 mmol/L (98-107); Potassium 5.3 mmoL/L (3.5-5.1); Sodium 134 mmol/L (136-145)
[2023-07-09 20:35] LABS: Alanine Aminotransferase 20 U/L (12-78); Albumin/Globulin Ratio 1.1 (1.1-1.8); Alkaline Phosphatase 55 U/L (38-126); Aspartate Amino Transferase 33 U/L (17-59); Bilirubin,Total 0.7 mg/dl (0.2-1.3); Blood Urea Nitrogen 38 mg/dl (9-20); Carbon Dioxide 19 mmol/L (22.0-30.0); Creatinine Clearance Estimated 33 mL/min (50-200); Estimated Glomerular Filt Rate 35 ml/min (>60); GFR (African American) 42 ML/MIN (>60); Globulin 3.6 g/dL (1.3-3.2); Total Protein,Serum 7.6 g/dl (6.3-8.2)
[2023-07-09 20:36] LABS: Calcium 9.1 mg/dl (8.4-10.2); Glucose 117 mg/dl (74-100)
--- NOTE | 2023-07-09 20:39 | PC.NURSE ---
rounded on pt, provided him with water per patient request.
[2023-07-09 20:40] LABS: Anion Gap 15.3 mEq/L (5-15)
--- NOTE | 2023-07-09 20:46 | PC.NURSE ---
on the phone with Erasmo MARSH who confirmed 750 mg IV dose of levofloaxin
[2023-07-09 20:49] LABS: Eosinophils % 1 % (0-3); Lymphocytes % 8 % (10-50); Neutrophils % 82 % (42-76); Platelet Estimate Normal; RBC Morphology Normal; Total Cells Counted 100
--- NOTE | 2023-07-09 21:43 | PC.NURSE ---
rounded on pt and explained we were waiting on his antibiotic to finish. I got the pt a blanket and emptied his clemente with 900ml tea colored urine
--- NOTE | 2023-07-09 22:31 | PC.NURSE ---
stopped pump and disconnected, flushed line with no new complaints noted.
--- NOTE | 2023-07-16 12:09 | PC.NURSE ---
reviewed pt positive urine culture. pt on correct medication. no action needed at this time
== END 2023-07-09 23:18 | disposition home or self-care (01) ==
PROVIDERS: Emergency Provider Emergency Medicine; PCP Nurse Practitioner Family
DX: T83.511A Infection and inflammatory reaction due to indwelling urethral catheter, initial encounter (principal); R94.4 Abnormal results of kidney function studies; J44.9 Chronic obstructive pulmonary disease, unspecified; E11.9 Type 2 diabetes mellitus without complications; I10 Essential (primary) hypertension; F17.210 Nicotine dependence, cigarettes, uncomplicated
CPT/HCPCS: 36415; 51702; 80053; 81001; 85007; 85025; 87086; 87088; 87186; 96365; 99285; J1956

== ENCOUNTER → 2023-07-12 14:56 | Outpatient (CLI) | payer MEDICARE, SELFPAY ==
[2023-07-12 15:35] LABS: Chloride 105 mmol/L (98-107); Sodium 140 mmol/L (136-145)
[2023-07-12 15:38] LABS: Blood Urea Nitrogen 30 mg/dl (9-20); Calcium 8.7 mg/dl (8.4-10.2); Carbon Dioxide 26 mmol/L (22.0-30.0); Estimated Glomerular Filt Rate 31 ml/min (>60); GFR (African American) 37 ML/MIN (>60); Glucose 143 mg/dl (74-100)
== END ==
PROVIDERS: PCP Emergency Medicine; Visit Provider Emergency Medicine
DX: R79.89 Other specified abnormal findings of blood chemistry (principal)
CPT/HCPCS: 36415; 80048

== ENCOUNTER → 2023-07-22 13:38 | Outpatient (POV) | payer MEDICARE, SELFPAY | PROVIDERS: Visit Provider Internal Medicine Nephrology | DX: Z00.00 Encounter for general adult medical examination without abnormal findings (principal) ==

== ENCOUNTER 2023-09-11 01:11 | Observation (INO) | payer MEDICARE, SELFPAY ==
[2023-09-11] VITALS (7 sets, daily range): BP systolic 109–141; BP diastolic 46–64; PULSE 64–81; RESP 12–17; TEMP 36.8–36.9; O2SAT 98–100; BMI 22.2; BMI 21.3
--- NOTE | 2023-09-11 01:23 | HMH.EDGENADL ---
Discharge Plan Disposition Patient Disposition: Admitted Clinical Impressions Clinical Impression: Angioedema of tongue Discharge ED Provider: Meghna Forrester General Adult HPI General Chief complaint: Allergic Reaction Stated complaint: Tongue swollen Time Seen by Provider: 09/11/23 01:14 Mode of Arrival: Ambulatory Source of Information: Patient Limitations: No Limitations Description of Symptoms (Recalled from ER Triage Doc. by RN): Patient awoke just prior to coming to the emergency department with a swollen tongue. Patient reports that the swelling has increased since waking and he is having trouble swallowing. Patient denies having difficulty breathing at the time of triage. Patient does take lisinopril at home. History of Present Illness HPI narrative: This patient is a 78-year-old male with a history of hypertension on lisinopril, diabetes, hyperlipidemia, CAD, carotid stenosis, COPD, and prostate issues status post recent procedure 1 month ago presenting to the emergency department for evaluation with concern for tongue swelling. He states that he woke up just prior to arrival with an extremely swollen tongue. It is increased in's waking and he is having trouble swallowing. He denies any other concerns, such as rash, itchiness, shortness of breath, wheezing, abdominal pain, nausea, vomiting, or diarrhea. He states that he is allergic to something and Zyrtec but has no other known allergies. He has had no exposures to any potential new allergens or irritants as far as he is aware. He does take lisinopril, which he notes that he has been on for years. Nothing like this is ever happened to him before. He is edentulous and has had no recent oral issues. Related Data Home Medications Medication Instructions Recorded Confirmed empagliflozin 10 mg tablet 10 mg PO DAILY 09/11/23 09/11/23 (Jardiance) Previous Rx's Medication Instructions Recorded lisinopril 10 mg tablet 10 mg PO DAILY bp #90 tabs 12/12/22 rosuvastatin 20 mg tablet See Rx Instructions .Route 12/12/22 .COMPLEX hld #90 tabs metformin 500 mg tablet See Rx Instructions .Route 08/07/23 .COMPLEX dm #90 tabs Allergies Allergy/AdvReac Type Severity Reaction Status Date / Time cetirizine Allergy Unknown Unknown Verified 08/07/23 10:07 allergy reaction [facility] Disclaimer: The information contained in this section may have been updated after the patient was seen, as this information can be updated by other users. Medical History Abnormal EKG Bilateral carotid bruits COPD (chronic obstructive pulmonary disease) COPD (chronic obstructive pulmonary disease) Coronary artery calcification seen on CT scan Diabetes Dyspnea Dyspnea on exertion Hypertension Pulmonary emphysema Smoking greater than 30 pack years Solitary pulmonary nodule Tobacco use Surgical History History of coronary artery stent placement History of hand surgery Family History Other Lung cancer Social History Smoking Status: Current every day smoker tobacco type: cigarettes packs per day: 1 alcohol intake: current substance use type: denies use current occupational status: retired Travel in the last 8 weeks: None household members: none housing: house caffeine: Yes ROS Obtained: Yes All systems reviewed & no additional complaints except as documented Physical Exam General General appearance: alert and in no apparent distress Head Head exam: atraumatic and normocephalic Eye Eye exam: Present normal appearance, PERRL and EOMI ENT ENT exam: Present mucous membranes moist and normal external ear exam Expanded ENT Exam Mouth exam: Present tongue elevation and tongue swelling; Absent drooling, trismus or lip swelling Teeth exam: Present other (edentulous ) Throat exam: Pres
[2023-09-11 01:38] LABS: Chloride 103 mmol/L (98-107); Potassium 4.3 mmoL/L (3.5-5.1); Sodium 137 mmol/L (136-145)
[2023-09-11 01:40] LABS: Blood Urea Nitrogen 28 mg/dl (9-20); Creatinine Clearance Estimated 32 mL/min (50-200); Estimated Glomerular Filt Rate 35 ml/min (>60); GFR (African American) 42 ML/MIN (>60)
[2023-09-11 01:41] LABS: Alanine Aminotransferase 25 U/L (12-78); Albumin Level 4.6 g/dl (3.5-5.0); Albumin/Globulin Ratio 1.4 (1.1-1.8); Alkaline Phosphatase 99 U/L (38-126); Anion Gap 13.3 mEq/L (5-15); Aspartate Amino Transferase 32 U/L (17-59); Bilirubin,Total 0.5 mg/dl (0.2-1.3); Calcium 9.2 mg/dl (8.4-10.2); Carbon Dioxide 25 mmol/L (22.0-30.0); Globulin 3.3 g/dL (1.3-3.2); Glucose 154 mg/dl (74-100); Total Protein,Serum 7.9 g/dl (6.3-8.2)
[2023-09-11 02:07] LABS: Basophils % 0.2 % (0.1-2.0); Eosinophils # 1.3 K/mm3 (0.0-0.4); Eosinophils % 17.1 % (0.1-12.0); Hematocrit 34.9 % (42.0-52.0); Hemoglobin 11.1 g/dL (14.1-18.0); Lymphocytes # 1.5 K/mm3 (0.7-4.5); Lymphocytes % 19.8 % (10-50); Mean Corpuscular Hemoglobin 30.5 pg (27.0-31.2); Mean Corpuscular Volume 95.4 fl (80-94); Mean Platelet Volume 8.2 fl (7.4-10.4); Monocytes # 0.4 K/mm3 (0.1-1.0); Monocytes % 5.3 % (1.7-9.3); Neutrophils # 4.4 K/mm3 (1.8-7.8); Neutrophils % 57.6 % (37.0-80.0); Platelet Count 292 K/mm3 (142-424); Red Blood Count 3.65 M/mm3 (4.60-6.20); Red Cell Distribution Width 14.4 % (11.5-17.5); White Blood Count 7.6 K/mm3 (4.8-10.8)
--- NOTE | 2023-09-11 03:11 | PC.NURSE ---
House notified for admission
--- NOTE | 2023-09-11 03:23 | PC.NURSE ---
Report called to BUCK Lopez
--- NOTE | 2023-09-11 03:47 | PC.NURSE ---
Patient arrived to unit at 0345 via wheelchair from ED with the assistance of staff. Patient is alert and orient X4. Denies any pain or SOB. Patient is admitted with Angioedema. Tongue assessed, swelling noted at bottom of tongue, per patient the swelling has gone down a lot. Patient orient to room and educated on use of call light, bed controller and tv controller with a voice of understanding. Assessment to follow.
--- NOTE | 2023-09-11 03:59 | PC.NURSE ---
pt arrived to the floor @03:43
--- NOTE | 2023-09-11 05:26 | EXP.HP ---
History of Present Illness *Admission Date: 09/11/23 *Reason for visit:: Swollen tongue *History of present illness: 78-year-old male that presents to [facility] emergency department with concerns of swollen tongue that started on day of presentation. He denies associated confusion, syncope, falls or loss of extremity strength or motor function. He denies any dysphagia, odynophagia or difficulty forming thoughts. He recalls no insect bites, diffuse rashes, pruritus or shortness of air. He reports no wheezing. He denies nausea, vomiting or diarrhea. He is currently prescribed CHAGO inhibitor therapy. He reports no prior history of similar symptomatology. His ED vitals identify normal blood pressure, heart rate and he is saturating appropriately on room air. His CBC identifies a normal white blood cell count with eosinophilia. He received H2 shae, methylprednisolone and Benadryl. By the time he arrived to the floor he has identified significant improvement in his presenting symptomatology. [facility] Medical History Bilateral carotid bruits COPD (chronic obstructive pulmonary disease) Coronary artery calcification seen on CT scan Diabetes Hypertension Pulmonary emphysema Smoking greater than 30 pack years Solitary pulmonary nodule Tobacco use Surgical History History of coronary artery stent placement History of hand surgery Family History Other Lung cancer Social History Smoking Status: Current every day smoker tobacco type: cigarettes packs per day: 1 alcohol intake: current substance use type: denies use current occupational status: retired Travel in the last 8 weeks: None household members: none housing: house caffeine: Yes Review of Systems Review of Systems Review of systems:: pertinent systems reviewed and negative unless documented below Constitutional Constitutional: Denies headache(s) and Denies weakness ENT Ears, Nose, Mouth, and Throat: Denies dental pain, Denies dysphagia, Denies headache(s), Denies lip swelling, Denies mouth lesions, Denies odynophagia, Denies sore throat, Denies throat swelling, Reports tongue swelling and Denies vertigo *Cardiovascular Cardiovascular: Denies chest pain, Denies chest pain at rest and Denies chest pain with activity *Respiratory Respiratory: Denies hemoptysis and Denies stridor *Gastrointestinal Gastrointestinal: Denies dysphagia, Denies loose stools, Denies nausea, Denies odynophagia and Denies vomiting Integumentary/Breasts Skin/Breast: Denies rash *Neurologic Neurologic: Denies headache(s), Denies vertigo and Denies weakness Allergic/Immunologic Allergic/Immunologic: Denies lip swelling, Denies throat swelling and Reports tongue swelling Meds Home Medications and Allergies Home Medications Medication Instructions Recorded Confirmed Type lisinopril 10 mg tablet 10 mg PO DAILY bp #90 tabs 12/12/22 09/11/23 Rx rosuvastatin 20 mg tablet See Rx Instructions .Route 12/12/22 09/11/23 Rx .COMPLEX hld #90 tabs metformin 500 mg tablet See Rx Instructions .Route 08/07/23 09/11/23 Rx .COMPLEX dm #90 tabs empagliflozin 10 mg tablet 10 mg PO DAILY 09/11/23 09/11/23 History (Jardiance) New Prescriptions to Start Prescriptions: Allergies Allergy/AdvReac Type Severity Reaction Status Date / Time cetirizine Allergy Unknown Unknown Verified 08/07/23 10:07 allergy reaction Exam Data for Last 24 hours Vital signs and Labs for Last 24 Hours: Temp Pulse Resp BP Pulse Ox O2 Del Method 98.5 F 69 14 122/54 L 98 Room Air 09/11/23 03:59 09/11/23 03:59 09/11/23 03:59 09/11/23 03:59 09/11/23 03:59 09/11/23 03:59 Laboratory Results - last 24 hr 09/11/23 01:21: WBC 7.6, RBC 3.65 L, Hgb 11.1 L, Hct 34.9 L, MCV 95.4 H, MCH 30.5, MCHC 32.0, RDW 14.
[2023-09-11 07:09] LABS: Basophils % 0.1 % (0.1-2.0); Eosinophils # 0.2 K/mm3 (0.0-0.4); Eosinophils % 2.5 % (0.1-12.0); Hematocrit 29.7 % (42.0-52.0); Lymphocytes # 0.4 K/mm3 (0.7-4.5); Lymphocytes % 5.5 % (10-50); Mean Corpuscular HGB Conc 32.8 g/dL (31.8-35.4); Mean Corpuscular Hemoglobin 31.2 pg (27.0-31.2); Mean Corpuscular Volume 95.3 fl (80-94); Mean Platelet Volume 7.9 fl (7.4-10.4); Monocytes # 0.1 K/mm3 (0.1-1.0); Monocytes % 1.5 % (1.7-9.3); Neutrophils # 6.3 K/mm3 (1.8-7.8); Neutrophils % 90.3 % (37.0-80.0); Platelet Count 258 K/mm3 (142-424); Red Blood Count 3.12 M/mm3 (4.60-6.20); Red Cell Distribution Width 14.3 % (11.5-17.5)
[2023-09-11 07:11] LABS: POC Glucose,Bedside 188 (70-110)
[2023-09-11 07:20] LABS: Chloride 107 mmol/L (98-107); Potassium 4.9 mmoL/L (3.5-5.1); Sodium 138 mmol/L (136-145)
[2023-09-11 07:23] LABS: Anion Gap 11.9 mEq/L (5-15); Blood Urea Nitrogen 27 mg/dl (9-20); Calcium 8.7 mg/dl (8.4-10.2); Carbon Dioxide 24 mmol/L (22.0-30.0); Creatinine Clearance Estimated 31 mL/min (50-200); Estimated Glomerular Filt Rate 35 ml/min (>60); GFR (African American) 42 ML/MIN (>60); Glucose 183 mg/dl (74-100)
[2023-09-11 07:37] LABS: MANUAL DIFFERENTIAL MANUAL DIFFERENTIAL (MANUAL DIFF)
[2023-09-11 07:43] LABS: Hemoglobin 9.7 g/dL (14.1-18.0)
--- NOTE | 2023-09-11 08:49 | HMH.PHAINT1 ---
Pharmacy Intervention Comments: Med reconciliation completed using external fill history
[2023-09-11 09:17] LABS: Eosinophils % 2 % (0-3); Lymphocytes % 5 % (10-50); Monocytes % 3 % (2-9); Neutrophils % 90 % (42-76); Platelet Estimate Normal; RBC Morphology Normal; Total Cells Counted 100
[2023-09-11 11:11] LABS: POC Glucose,Bedside 243 (70-110)
--- NOTE | 2023-09-11 15:46 | EXP.DC.SUM ---
General Admission date:: 09/11/23 Discharge date: 09/11/23 HPI HPI HPI: 78-year-old male that presents to [facility] emergency department with concerns of swollen tongue that started on day of presentation. He denies associated confusion, syncope, falls or loss of extremity strength or motor function. He denies any dysphagia, odynophagia or difficulty forming thoughts. He recalls no insect bites, diffuse rashes, pruritus or shortness of air. He reports no wheezing. He denies nausea, vomiting or diarrhea. He is currently prescribed CHAGO inhibitor therapy. He reports no prior history of similar symptomatology. His ED vitals identify normal blood pressure, heart rate and he is saturating appropriately on room air. His CBC identifies a normal white blood cell count with eosinophilia. He received H2 shae, methylprednisolone and Benadryl. By the time he arrived to the floor he has identified significant improvement in his presenting symptomatology. Hospital Course Hospital Course Hospital Course: Patient was seen and evaluated at the bedside on the day of discharge. Patient is stable for discharge. Patient wishes to be discharged. All patient questions were answered and patient was given time to ask questions. Patient was discharged in stable condition. 78-year-old male who presents to the ED with concerns of tongue edema with currently prescribed CHAGO inhibitor therapy. ED assessment and treatment is provided and the patient identifies improvement. Problems addressed as follows: Angioedema Telemetry monitoring Pulse oximetry monitoring Oxygen therapy to maintain appropriate oxygen saturations Currently oxygenating appropriately on room air Avoiding CHAGO inhibitor therapy Routine blood pressure evaluations Pharmacy assisting with home med reconciliation Update allergy list with addition of lisinopril PPI therapy Diabetes Routine blood sugar monitoring Sliding scale insulin therapy Carbohydrate controlled diet Tobacco dependence Tobacco cessation education VTE prophylaxis: Heparin Exam Data for Last 24 hours Vital signs and Labs for Last 24 Hours: Temp Pulse Resp BP Pulse Ox O2 Del Method 98.3 F 64 17 109/54 L 98 Room Air 09/11/23 07:44 09/11/23 07:44 09/11/23 07:44 09/11/23 07:44 09/11/23 07:44 09/11/23 14:55 Laboratory Results - last 24 hr 09/11/23 01:21: WBC 7.6, RBC 3.65 L, Hgb 11.1 L, Hct 34.9 L, MCV 95.4 H, MCH 30.5, MCHC 32.0, RDW 14.4, Plt Count 292, MPV 8.2, Neut % (Auto) 57.6, Lymph % (Auto) 19.8, [place] % (Auto) 5.3, Eos % (Auto) 17.1 H, Baso % (Auto) 0.2, Neut # (Auto) 4.4, Lymph # (Auto) 1.5, [place] # (Auto) 0.4, Eos # (Auto) 1.3 H, Baso # (Auto) 0.0, Sodium 137, Potassium 4.3, Chloride 103, Carbon Dioxide 25, Anion Gap 13.3, BUN 28 H, Creatinine 1.90 H, Estimated Creat Clear 32, Estimated GFR 35 L, Est GFR ( Amer) 42 L, Glucose 154 H, Calcium 9.2, Total Bilirubin 0.5, AST 32, ALT 25, Alkaline Phosphatase 99, Total Protein 7.9, Albumin 4.6, Globulin 3.3 H, Albumin/Globulin Ratio 1.4 09/11/23 06:26: WBC 7.0, RBC 3.12 L, Hgb 9.7 L D, Hct 29.7 L, MCV 95.3 H, MCH 31.2, MCHC 32.8, RDW 14.3, Plt Count 258, MPV 7.9, Neut % (Auto) 90.3 H, Lymph % (Auto) 5.5 L, [place] % (Auto) 1.5 L, Eos % (Auto) 2.5, Baso % (Auto) 0.1, Neut # (Auto) 6.3, Lymph # (Auto) 0.4 L, [place] # (Auto) 0.1, Eos # (Auto) 0.2, Baso # (Auto) 0.0, Total Counted 100, Neutrophils % (Manual) 90 H, Lymphocytes % (Manual) 5 L, Monocytes % (Manual) 3, Eosinophils % (Manual) 2, Platelet Estimate Normal, RBC Morphology Normal, Sodium 138, Potassium 4.9, Chloride 107, Carbon Dioxide 24, Anion Gap 11.9, BUN 27 H, Creatinine 1.90 H, Estimated Creat Clear 31, Estimated GFR 35 L, Est GFR ( Amer) 42 L, Glucose 183 H, Calcium 8.7, Magnesium 2.0 09/11/23 07:02: POC Glucose 188 H 09/11/23 10:52: POC Glucose 243 H I & O for Last 24 hours: Intake & Output 09/08/23 09/09/23 09/10/23 09/11/23 23:59 23:59 23:59 23:59 Intake
--- NOTE | 2023-09-12 13:59 | CARE MANAGER ---
Contacted patient related to hospital discharge. He states he is doing better. He denies questions or concerns. Is picking up his blood pressure medication after 3pm at the pharmacy as they did not have it yesterday. He denies questions or concerns and is aware of follow up appointment. BUCK Armenta
== END 2023-09-11 15:49 | disposition home or self-care (01) ==
LOC: ER 03:11 → 2ND 03:20
PROVIDERS: Family Medicine; Admitting Provider Internal Medicine; Emergency Provider Emergency Medicine; PCP Nurse Practitioner Family; Visit Provider Internal Medicine
DX: T78.3XXA Angioneurotic edema, initial encounter (principal); J44.9 Chronic obstructive pulmonary disease, unspecified; E11.9 Type 2 diabetes mellitus without complications; Z79.84 Long term (current) use of oral hypoglycemic drugs; I10 Essential (primary) hypertension; F17.210 Nicotine dependence, cigarettes, uncomplicated; Z79.899 Other long term (current) drug therapy
CPT/HCPCS: 80048; 80053; 82962; 83735; 85007; 85025; 99291; G0378

== ENCOUNTER 2023-11-13 12:38 | Outpatient (CLI) | payer MEDICARE, SELFPAY ==
--- NOTE | 2023-11-13 13:28 | PC.NURSE ---
Pt unable to follow commands for PFT, office notified. 6 minute walk test was completed.
== END 2023-11-13 23:59 ==
LOC: RT 12:41
PROVIDERS: PCP Nurse Practitioner Family; Visit Provider Internal Medicine Pulmonary Disease
DX: R06.09 Other forms of dyspnea (principal)
CPT/HCPCS: 94618

== ENCOUNTER 2024-05-12 12:55 | Outpatient (CLI) | payer MEDICARE, SELFPAY ==
--- NOTE | 2024-05-12 12:56 | CT_ITS ---
FINAL REPORT TECHNIQUE: Axial CT images of the chest were obtained without contrast. Low-dose protocol was utilized. This study was performed with techniques to keep radiation doses as low as reasonably achievable (ALARA). Individualized dose reduction techniques using automated exposure control or adjustment of mA and/or kV according to the patient's size were employed. CLINICAL HISTORY: lung cancer screening smoker, 1/2 ppd x 60 years COMPARISON: CT chest 05/13/2023, 03/30/2022 FINDINGS: CT CHEST WITHOUT, LOW DOSE SCREENING CT Di Vol: 2.90 mGy DLP: 106.81 mGy*cm There is a densely calcified right hilar lymph node. The heart size is normal. There are dense coronary artery calcifications, particularly in the LAD. There is no pleural or pericardial effusion. The lung windows show a noncalcified nodule in the medial left upper lobe measuring approximately 8 mm in greatest dimension. On the coronal images, the solid component now measures up to 11 mm in craniocaudal dimension. Compared with the exam from 2021, this demonstrates apparent increase in size and findings are concerning. There are multiple chronic left rib fractures. Limited images of the upper abdomen demonstrate no acute findings. IMPRESSION: Interval increase in size of left upper lobe nodule. LR Category 4B: PET-CT recommended. Reviewed, Interpreted and Dictated by Ricky Alvarez MD Transcribed by Katie Decker Authenticated and [facility]
== END 2024-05-12 23:59 | disposition home or self-care (01) ==
LOC: RAD 12:56
PROVIDERS: PCP Internal Medicine Pulmonary Disease; Visit Provider Internal Medicine Pulmonary Disease
DX: F17.210 Nicotine dependence, cigarettes, uncomplicated (principal)
CPT/HCPCS: 71271

== ENCOUNTER 2024-06-01 14:13 | Outpatient (CLI) | payer MEDICARE, SELFPAY ==
--- NOTE | 2024-06-01 14:15 | CA_ITS ---
APPROVED REPORT EXAM: Comprehensive 2D, Doppler, and color-flow Echocardiogram Biology Manager: Valery Young RVT Ht: 5 ft 10 in Wt: 145lbs BSA: 1.82 BP: 122/71 mmHg Indications: HFrEF,CAD,COPD,HTN,DM,HLD,SMOKER 2D Dimensions LA Volume 20.10 mL LA Volume Index 11.04 mL/m2 (M/F) 16-34 M-Mode Dimensions RVDd 2.62 cm (0.9-2.6) LA Diam 3.32 cm (1.9-4.0) LVDd 4.07 cm (3.5-5.7) LVDs 2.58 cm (3.5-5.7) IVSd 0.68 cm (0.6-1.1) PWd 0.80 cm (0.6-1.1) EF (Teich) 66.90% FS 36.60% EDV (Teich) 72.90 mL TAPSE 1.72 (<1.7) ESV (Teich) 24.10 mL LV Diastology E Decel Time 243 (160-240 msec) E/A Ratio 0.4 Aortic Valve KELSEY Index 1.58 cm2/m2 AoV Peak Nash. 107.0 (50-130 cm/s) AO Peak GR. 4.60 mmHg AO Mean GR. 2.80 (<5 mmHg) AO VTI 18.0 (18-25 cm) KELSEY (VTI) 2.93 (2.5-4.5 cm2) Mitral Valve MV E Max Nash. 49.0 (40-130 cm/s) MV A Velocity 117.0 (40-130 cm/s) E/A Ratio 0.42 MV PHT 71.0 ms Pulmonary Valve PV Peak Velocity 119.0 (50-150 cm/s) Left Ventricle The left ventricle is normal size. The left ventricular systolic function is low-normal. There is increased LV wall thickness. There is normal LV segmental wall motion. Transmitral Doppler flow pattern suggests impaired LV relaxation. LVEF is 50%. Right Ventricle The right ventricle is mildly dilated. Right ventricle is mildly hypokinetic. Atria The left atrium size is normal. The right atrium size is normal. There is no Doppler evidence of interatrial shunt. Aortic Valve The aortic valve is mildly thickened. There is no aortic valvular stenosis. Trace aortic regurgitation. Mitral Valve The mitral valve is normal in structure. No evidence of mitral valve stenosis. Mild mitral regurgitation. Tricuspid Valve The tricuspid valve leaflets are thin and pliable. Trace tricuspid regurgitation. There is insufficient TR jet to estimate RVSP. Pulmonic Valve The pulmonary valve is normal in structure. Trace pulmonic regurgitation. Great Vessels The aortic root is normal in size. The ascending aorta is not well visualized. IVC is normal in size and collapses >50% with inspiration. Pericardium There is no pericardial effusion. Other Information Study Quality: Fair Conclusion Low-normal LV systolic function (LVEF 50%). Mild RV dilation with mild reduction in RV function. Mild MR. Electronically signed by : Kathy Castaneda MD 06/02/2024 11:07:56
[2024-06-01 15:21] LABS: Basophils # 0.1 K/mm3 (0-0.2); Basophils % 0.9 % (0.1-2.0); Eosinophils # 0.2 K/mm3 (0.0-0.4); Eosinophils % 4.6 % (0.1-12.0); Hematocrit 44.2 % (42.0-52.0); Hemoglobin 14.1 g/dL (14.1-18.0); Lymphocytes % 20.4 % (10-50); Mean Corpuscular Hemoglobin 30.1 pg (27.0-31.2); Monocytes # 0.4 K/mm3 (0.1-1.0); Monocytes % 7.3 % (1.7-9.3); Neutrophils # 3.3 K/mm3 (1.8-7.8); Neutrophils % 66.8 % (37.0-80.0); Platelet Count 255 K/mm3 (142-424); Red Cell Distribution Width 13.9 % (11.5-17.5)
[2024-06-01 15:39] LABS: Albumin Level 4.7 g/dl (3.5-5.0); Chloride 102 mmol/L (98-107)
[2024-06-01 15:40] LABS: Sodium 139 mmol/L (136-145)
[2024-06-01 15:42] LABS: Alanine Aminotransferase 25 U/L (12-78); Alkaline Phosphatase 66 U/L (38-126); Aspartate Amino Transferase 28 U/L (17-59); Bilirubin,Direct 0.3 mg/dl (0.0-0.4); Bilirubin,Indirect 0.3 mg/dL (0.0-0.9); Bilirubin,Total 0.6 mg/dl (0.2-1.3); Bilirubin,Unconjugated 0.2 mg/dL (0.0-1.1); Blood Urea Nitrogen 27 mg/dl (9-20); Calcium 9.9 mg/dl (8.4-10.2); Carbon Dioxide 29 mmol/L (22.0-30.0); Cholesterol 162 mg/dl (140-200); Estimated Glomerular Filt Rate 49 ml/min (>60); GFR (African American) 59 ML/MIN (>60); Glucose 131 mg/dl (74-100); Total Protein,Serum 7.5 g/dl (6.3-8.2); Triglycerides 167 mg/dl (30-150); VLDL Cholesterol 33 mg/dL (0-40)
[2024-06-01 15:43] LABS: Chol/HDL Ratio 2.6 (1-3.5); HDL Cholesterol 62 mg/dl (40-60)
[2024-06-01 15:54] LABS: Direct LDL Cholesterol 61.13 mg/dL (100-129)
== END 2024-06-01 23:59 | disposition home or self-care (01) ==
LOC: RT 14:14
PROVIDERS: PCP Nurse Practitioner Family; Visit Provider Nurse Practitioner
DX: I51.7 Cardiomegaly (principal); I25.118 Atherosclerotic heart disease of native coronary artery with other forms of angina pectoris; I50.20 Unspecified systolic (congestive) heart failure; I34.0 Nonrheumatic mitral (valve) insufficiency
CPT/HCPCS: 36415; 80048; 80061; 80076; 85025; 93306

== ENCOUNTER 2024-08-19 09:41 | Outpatient (CLI) | payer MEDICARE, SELFPAY ==
[2024-08-19 21:20] LABS: HIV (1&2) Antibody Rapid NONREACTIVE (NONREACTIVE)
[2024-08-21 05:12] LABS: HCV Ab Non Reactive (Non Reactive)
== END 2024-08-19 23:59 | disposition home or self-care (01) ==
LOC: LAB.DROPOF 08-20 09:58
PROVIDERS: PCP Nurse Practitioner Family; Visit Provider Nurse Practitioner Family
DX: Z11.4 Encounter for screening for human immunodeficiency virus [HIV] (principal)
CPT/HCPCS: 86803; 87389

== ENCOUNTER 2024-11-10 11:43 | Emergency (ER) | payer MEDICARE, SELFPAY ==
[2024-11-10 11:45] VITALS: BP 128/67; PULSE 81; RESP 18; TEMP 36.7; O2SAT 97; BMI 20.7
--- NOTE | 2024-11-10 11:56 | XR_ITS ---
FINAL REPORT CLINICAL HISTORY: TV FELL ON FOOT/TOES FINDINGS: Right foot Three views were obtained. There is no fracture or dislocation. The joint spaces appear normal. No soft tissue abnormality is identified. There is a moderate plantar spur. There is a small to moderate Luis deformity. IMPRESSION: No acute process. Reviewed, Interpreted and Dictated by Ricky Alvarez MD Transcribed by Aline Godoy Authenticated and [facility]
--- NOTE | 2024-11-10 11:58 | PC.NURSE ---
DR LAZARO AT BEDSIDE
[2024-11-10 12:00] VITALS: BP 165/87; PULSE 74; O2SAT 98
[2024-11-10 12:30] VITALS: BP 143/71; PULSE 69; O2SAT 98
--- NOTE | 2024-11-10 12:34 | ED_ITS ---
Discharge Plan Disposition Chief Complaint: Skin/Abscess/Foreign Body Prescriptions Prescriptions: No Action (DME) lancets [Easy Comfort Lancets] 30 gauge misc See Rx Instructions .Route Qty: 100 1RF Rx Instructions: As directed metformin 1,000 mg tablet See Rx Instructions .ROUTE .COMPLEX Qty: 180 2RF Dose Instruction: Take 1 tablet by mouth twice daily Rx Instructions: Take 1 tablet by mouth twice daily aspirin 81 mg tablet,delayed release (DR/EC) See Rx Instructions .Route .COMPLEX Qty: 90 3RF Rx Instructions: Take 1 tablet by mouth once daily rosuvastatin 20 mg tablet See Rx Instructions .ROUTE .COMPLEX Qty: 90 3RF Dose Instruction: TAKE 1 TABLET BY MOUTH ONCE DAILY FOR HIGH CHOLESTEROL Rx Instructions: TAKE 1 TABLET BY MOUTH ONCE DAILY FOR HIGH CHOLESTEROL clopidogrel 75 mg tablet See Rx Instructions .ROUTE .COMPLEX Qty: 90 0RF Dose Instruction: TAKE 1 TABLET BY MOUTH ONCE DAILY FOR BLOOD CLOTS Rx Instructions: TAKE 1 TABLET BY MOUTH ONCE DAILY FOR BLOOD CLOTS Referrals Follow up/Referrals: Karri Padgett DO [Primary Care Provider] - See instructions Activity Restrictions/Add. Instructions Additional Instructions/Restrictions: Please present to the podiatry clinic for further management of your toenail. Return to the ER if your symptoms worsen or you become concerned for an infection. Instructions Patient Instructions: Foot Care: Toenails Print Language Print Language: Azeri Discharge ED Provider: Flora Chavez Adult HPI General Chief complaint: Skin/Abscess/Foreign Body Stated complaint: right foot bleeding sore Time Seen by Provider: 11/10/24 11:48 Mode of Arrival: Wheelchair Source of Information: Patient Limitations: No Limitations Description of Symptoms (Recalled from ER Triage Doc. by RN): PT WITH PAIN, BRUISING AND BLEEDING FROM RIGHT GREAT TOE. CAT KNOCKED TV OFF AND LANDED ON RIGHT GREAT, SECONG AND THIRD TOE. BLEEDING CONTROLLED AT THIS TIME. NAIL INTACT History of Present Illness HPI narrative: Patient is a 79-year-old male presenting with toe pain. While at home, patient's cat knocked over his flatscreen TV and it landed on his right toes. Patient is on blood thinners and has had approximately 1 hour of bleeding from the base of his right great toenail. Patient is able to move all of his toes and ambulate with some pain. Patient denies falling or trauma to the head. Related Data Previous Rx's ?Medication ?Instructions ?Recorded lancets 30 gauge (Easy Comfort #100 ea 09/18/23 Lancets) metformin 1,000 mg tablet See Rx Instructions .Route 12/29/23 .COMPLEX #180 tabs aspirin 81 mg tablet,delayed See Rx Instructions .Route 01/16/24 release .COMPLEX Blood thinner #90 tabs rosuvastatin 20 mg tablet See Rx Instructions .Route 05/15/24 .COMPLEX #90 tabs clopidogrel 75 mg tablet See Rx Instructions .Route 08/24/24 .COMPLEX #90 tabs Allergies Allergy/AdvReac Type Severity Reaction Status Date / Time lisinopril Allergy Severe Swelling Verified 08/19/24 09:12 of Lip/Tongue/Throat cetirizine Allergy Unknown Unknown Verified 08/19/24 09:12 allergy reaction PFSH FOR[facility] Disclaimer: The information contained in this section may have been updated after the patient was seen, as this information can be updated by other users. Medical History Angioedema of tongue Creatinine elevation Catheter-associated urinary tract infection Obstructive uropathy Hematuria COPD (chronic obstructive pulmonary disease) Pulmonary emphysema Smoking greater than 30 pack years Dyspnea on exertion Solitary pulmonary nodule Renal failure, chronic BPH loc w urin obs/LUTS COPD (chronic obstructive pulmonary disease) Elevated PSA HLD (hyperlipidemia) Carotid artery stenosis CAD (coronary artery disease) Bilateral carotid bruits Abnormal EKG Coronary artery calcification seen on CT scan Dyspnea Tobacco use Hypertension Diabetes Surgical History History of hand surgery History of coronary artery stent placement Family History Other Lung cancer Social History Smoking Status: Current every day smoker tobacco type: cigarettes packs per day: 1 alcohol intake: current alcohol intake frequency: a few times a week substance use type: denies use current occupational status: retired Travel in the last 8 weeks: None household members: none housing: house caffeine: Yes Other Medical History Have you received the Flu Vaccine for this season: No Have you received the Pneumonia Vaccine: No ROS Obtained: Yes All systems reviewed & no additional complaints except as documented Physical Exam General General appearance: alert and in no apparent distress Head Head exam: atraumatic Eye Eye exam: Present EOMI; Absent scleral icterus Neck Neck exam: Present full ROM Chest Chest inspection: Present normal inspection Respiratory Respiratory exam: Present normal lung sounds bilaterally Cardiovascular Cardiovascular exam: Present regular rate and normal rhythm Abdominal Exam Abdominal exam: Present soft; Absent distention or tenderness exam: Present deferred Extremities Exam Extremities exam: Present full ROM and tenderness; Absent edema Expanded Lower Extremity Exam Right: Foot/toe exam: Present tenderness, swelling, abrasion and other (Right great toe with abrasion, injury to base of right great toenail, bruising to second toe.) Neurovascular/Tendon exam: Absent pulse deficit, motor deficit or sensory deficit Back Exam Back exam: Present full ROM Neurological Exam Neurological exam: Present alert and oriented X3 Psychiatric Psychiatric exam: Present normal mood Skin Skin exam: Present warm and dry Medical Decision Making Medical Records Medical records reviewed: Yes I reviewed the patient's medical records. Screening: Per USPSTF and CDC recommendations, given the prevalence of disease in our region, it is our hospital?s policy to screen for HIV and viral Hepatitis for all patients aged 18 and over and those with ongoing risk factors. Ignacio Inquiry Pt receiving controlled substance: No Vital Signs: 11/10/24 11:45 11/10/24 12:00 11/10/24 12:30 Temperature 98.1 F Temperature Source Oral Pulse Rate 74 69 Pulse Rate [Radial] 81 Respiratory Rate 18 Blood Pressure 165/87 H 143/71 H Blood Pressure [Right Arm] 128/67 Blood Pressure Mean [Right Arm] 87 Blood Pressure Source [Right Arm] Automatic Cuff Blood Pressure Position [Right Arm] Sitting 02 Sat by Pulse Oximetry 97 98 98 Oxygen Delivery Method Room Air Room Air Room Air 11/10/24 13:00 Temperature Temperature Source Pulse Rate 64 Pulse Rate [Radial] Respiratory Rate Blood Pressure 147/78 H Blood Pressure [Right Arm] Blood Pressure Mean [Right Arm] Blood Pressure Source [Right Arm] Blood Pressure Position [Right Arm] 02 Sat by Pulse Oximetry 98 Oxygen Delivery Method Room Air Lab Data Lab results reviewed: Yes I reviewed the patient's lab results. Orders (Tests/Meds): ORDERS Category Date Time Status Foot XR right 2 views [XR foot RT 2V] Stat Exams 11/10/24 11:56 Taken Medical Decision Narrative: In summary, patient is a 79-year-old male presenting with toe pain. Differential diagnosis includes but is not limited to, toe fracture, nailbed injury, among others. Patient is on clopidogrel for pre-existing medical conditions and had prolonged bleeding at home, however on arrival, bleeding is controlled. Will perform XR for evaluation of underlying fracture. XR personally reviewed by me and negative for fracture. Podiatry consulted and were able to evaluate the patient at bedside. They feel he is appropriate for management in their clinic. Patient discharged to present directly to their clinic. Flora Chavez MD PGY-3, Emergency Medicine Critical Care Critical Care Time Critical Care Time: No
--- NOTE | 2024-11-10 12:53 | PC.NURSE ---
PODIATRY AT BEDSIDE
[2024-11-10 13:00] VITALS: BP 147/78; PULSE 64; O2SAT 98
[2024-11-10 13:16] VITALS: BP 147/78; PULSE 68; RESP 18; TEMP 36.7; O2SAT 98
== END 2024-11-10 13:16 | disposition home or self-care (01) ==
PROVIDERS: Emergency Provider Student in an Organized Health Care Education/Training Program; PCP Internal Medicine
DX: S91.101A Unspecified open wound of right great toe without damage to nail, initial encounter (principal); M79.674 Pain in right toe(s); R22.41 Localized swelling, mass and lump, right lower limb; E11.40 Type 2 diabetes mellitus with diabetic neuropathy, unspecified; W22.8XXA Striking against or struck by other objects, initial encounter; Y93.89 Activity, other specified; Y92.008 Other place in unspecified non-institutional (private) residence as the place of occurrence of the external cause
CPT/HCPCS: 73620; 99283

== ENCOUNTER 2024-11-11 04:59 | Emergency (ER) | payer MEDICARE, SELFPAY ==
[2024-11-11 05:01] VITALS: BP 158/73; PULSE 71; RESP 20; TEMP 36.5; O2SAT 97; BMI 20.7
--- NOTE | 2024-11-11 05:23 | ED_ITS ---
Discharge Plan Disposition Patient Disposition: Home, Self-Care Condition: Good Prescriptions Prescriptions: No Action cephalexin 500 mg capsule 500 mg PO BID 5 Days Qty: 10 0RF mupirocin 2 % ointment 1 applic topical BID 14 Days Qty: 15 0RF (DME) lancets [Easy Comfort Lancets] 30 gauge misc See Rx Instructions .Route Qty: 100 1RF Rx Instructions: As directed metformin 1,000 mg tablet See Rx Instructions .ROUTE .COMPLEX Qty: 180 2RF Dose Instruction: Take 1 tablet by mouth twice daily Rx Instructions: Take 1 tablet by mouth twice daily aspirin 81 mg tablet,delayed release (DR/EC) See Rx Instructions .Route .COMPLEX Qty: 90 3RF Rx Instructions: Take 1 tablet by mouth once daily rosuvastatin 20 mg tablet See Rx Instructions .ROUTE .COMPLEX Qty: 90 3RF Dose Instruction: TAKE 1 TABLET BY MOUTH ONCE DAILY FOR HIGH CHOLESTEROL Rx Instructions: TAKE 1 TABLET BY MOUTH ONCE DAILY FOR HIGH CHOLESTEROL clopidogrel 75 mg tablet See Rx Instructions .ROUTE .COMPLEX Qty: 90 0RF Dose Instruction: TAKE 1 TABLET BY MOUTH ONCE DAILY FOR BLOOD CLOTS Rx Instructions: TAKE 1 TABLET BY MOUTH ONCE DAILY FOR BLOOD CLOTS Referrals Follow up/Referrals: Karri Padgett DO [Primary Care Provider] - See instructions Millicent Akers DPM [Staff Physician] - See instructions (Seen in ER early 11/11 for bleeding after nail removal. Surgicel applied and wound dressed. Hemostasis achieved at the time of discharge. Needs close follow-up) Activity Restrictions/Add. Instructions Additional Instructions/Restrictions: You were evaluated in the ER and are appropriate for discharge at this time. Leave the dressing that was put on in the ER in place until this evening. This evening you can remove it, clean it, and use the ointment prescribed by Dr. Akers. Continue taking your oral antibiotics as directed. Elevate the foot above the level of the heart to reduce pain, swelling, and reduce the risk of bleeding. Please call Dr. Akers's office first thing this morning and ask her about the bleeding and continued wound care. She may want to see you in the office again today. Return to the ER with new, worsening, or otherwise concerning symptoms. Clinical Impressions Clinical Impression: Bleeding from wound Great toe pain Qualifiers: Laterality: right Qualified Code(s): M79.674 - Pain in right toe(s) Print Language Print Language: Norwegian Discharge ED Provider: Dhruv Spencer General Adult HPI General Chief complaint: Extremity Injury, Lower Stated complaint: R big toe injury, bleeding, blood thinners Time Seen by Provider: 11/11/24 05:06 Mode of Arrival: Ambulatory Source of Information: Patient and Relative Limitations: No Limitations Description of Symptoms (Recalled from ER Triage Doc. by RN): PT FROM [facility] C/O R GREAT TOE PAIN AND PERSISTANT BLEEDING S/P INJURY/TOE NAIL AVULSION YESTERDAY. PT REPORTS ATTENDING F/U APPOINTMENT YESTERDAY BUT HASNT STOPPED BLEEDING. ON BLOOD THINNERS. History of Present Illness HPI narrative: 79-year-old male presents to the ER with concerns of right great toe pain and bleeding. Patient had a TV fall on the toe which caused injury to the nail and nail bed. Review of x-ray of the foot from yesterday after the incident does not demonstrate acute fracture. Patient saw podiatry and they removed the right great toenail. Review of podiatry note demonstrates they were concerned for pos sible fracture despite negative x-ray. Patient had toenail excision with lidocaine nerve block. Reportedly per their note hemostasis had been achieved prior to patient being discharged with a walking boot. Patient and family present to the ER at this time because he has continued having oozing through multiple dressings and is having pain despite taking ibuprofen prior to arrival. No new injuries, patient does not recall bumping the toe since the time of his procedure. Patient does take aspirin and Plavix daily. Related Data Previous Rx's ?Medication ?Instructions ?Recorded lancets 30 gauge (Easy Comfort #100 ea 09/18/23 Lancets) metformin 1,000 mg tablet See Rx Instructions .Route 12/29/23 .COMPLEX #180 tabs aspirin 81 mg tablet,delayed See Rx Instructions .Route 01/16/24 release .COMPLEX Blood thinner #90 tabs rosuvastatin 20 mg tablet See Rx Instructions .Route 05/15/24 .COMPLEX #90 tabs clopidogrel 75 mg tablet See Rx Instructions .Route 08/24/24 .COMPLEX #90 tabs cephalexin 500 mg capsule 500 mg PO BID 5 days #10 caps 11/10/24 mupirocin 2 % topical ointment 1 applic topical BID infection 14 11/10/24 days #15 grams Allergies Allergy/AdvReac Type Severity Reaction Status Date / Time lisinopril Allergy Severe Swelling Verified 11/11/24 05:19 of Lip/Tongue/Throat cetirizine Allergy Unknown Unknown Verified 11/11/24 05:19 allergy reaction PFSH FORMERLY [facility] Disclaimer: The information contained in this section may have been updated after the patient was seen, as this information can be updated by other users. Medical History Angioedema of tongue Creatinine elevation Catheter-associated urinary tract infection Obstructive uropathy Hematuria COPD (chronic obstructive pulmonary disease) Pulmonary emphysema Smoking greater than 30 pack years Dyspnea on exertion Solitary pulmonary nodule Renal failure, chronic BPH loc w urin obs/LUTS COPD (chronic obstructive pulmonary disease) Elevated PSA HLD (hyperlipidemia) Carotid artery stenosis CAD (coronary artery disease) Bilateral carotid bruits Abnormal EKG Coronary artery calcification seen on CT scan Dyspnea Tobacco use Hypertension Diabetes Surgical History History of hand surgery History of coronary artery stent placement Family History Other Lung cancer Social History Smoking Status: Current every day smoker tobacco type: cigarettes packs per day: 1 alcohol intake: current alcohol intake frequency: a few times a week substance use type: denies use current occupational status: retired Travel in the last 8 weeks: None household members: none housing: house caffeine: Yes Have you lived/traveled outside [place] in past 30 days?: No Contact w/someone who lives/traveled outside [place] past 30 days?: No Exposure to someone with infectious disease in past 14 days?: No Do you have a fever (greater than 100.4 F or 38 C)?: No Have you tested positive for COVID-19: No Exposed to someone with COVID-19 in past 14 days?: No Do you have a sore throat?: No Do you have a cough?: No Do you have any weakness?: No Do you have any diarrhea?: No Are you experiencing any unusual bleeding?: No Do you have any muscle aches/pain?: No Do you have any abdominal pain?: No Are you experiencing loss of taste or smell?: No Other Medical History Have you received the Flu Vaccine for this season: No Have you received the Pneumonia Vaccine: No ROS Obtained: Yes Systems reviewed as appropriate & no additional complaints except as documented Per HPI Physical Exam General General appearance: alert and in no apparent distress Head Head exam: atraumatic and normocephalic Eye Eye exam: Present PERRL and EOMI ENT ENT exam: Present mucous membranes moist Neck Neck exam: Present normal inspection and full ROM Chest Chest inspection: Present symmetric chest wall rise Respiratory Respiratory exam: Absent respiratory distress or stridor Cardiovascular Cardiovascular exam: Present regular rate and normal rhythm Extremities Exam Extremities exam: Present full ROM Expanded Lower Extremity Exam Right: Foot/toe exam: Present tenderness (Right great and second toe without deformity, no significant swelling) and nail avulsion (Right great toe nail has been completely removed after patient sustained avulsion. Area that was previously under the nail has slow venous oozing, no obvious laceration. Sensation intact.); Absent swelling or deformity Neurological Exam Neurological exam: Present alert and oriented X3; Absent motor sensory deficit Psychiatric Psychiatric exam: Present normal affect and normal mood Skin Skin exam: Present warm and dry Medical Decision Making Medical Records Medical records reviewed: Yes I reviewed the patient's medical records. Screening: Per USPSTF and CDC recommendations, given the prevalence of disease in our region, it is our hospital?s policy to screen for HIV and viral Hepatitis for all patients aged 18 and over and those with ongoing risk factors. MR Comment: Per HPI Ignacio Inquiry Pt receiving controlled substance: No Vital Signs: 11/11/24 05:01 Temperature 97.7 F Temperature Source Oral Pulse Rate [Apical] 71 Respiratory Rate 20 Blood Pressure [Right Arm] 158/73 H Blood Pressure Mean [Right Arm] 101 02 Sat by Pulse Oximetry 97 Oxygen Delivery Method Room Air Orders (Tests/Meds): ED MEDICATIONS Discontinued Medications Generic Name Dose Route Start Last Admin Trade Name Freq PRN Reason Stop Dose Admin Acetaminophen 1,000 mg 11/11/24 05:31 11/11/24 05:33 Acetaminophen 500mg Tab PO 11/11/24 05:32 1,000 mg ONCE ONE Administration Medical Decision Narrative: In summary, this 79-year-old male with history of CAD, COPD, diabetes, hypertension all of which increase his overall morbidity and the amount of data to be reviewed as well as the diabetes increasing risk of poor wound healing presents to the emergency department today with right great toe nailbed bleeding after nail removal secondary to injury. On initial evaluation patient is hemodynamically stable, afebrile, slow venous oozing from the previous nail site, sensation intact, no laceration, patient does not report new injury. Based on review of previous records I do not believe he requires any new labs or imaging. He is hemodynamically stable so though I considered significant blood loss, I do not believe this is likely. He also has had slow oozing since the time of procedure. I suspect that his medications including the aspirin and Plavix have caused enough of a coagulopathy that his procedure site has not appropriately clotted. Wound was cleaned with saline. Surgicel was applied. Hemostasis appeared to be achieved so nonstick gauze was applied over this and the toe was appropriately dressed. Toe was being elevated and I am going to briefly monitor the patient for continued bleeding. Patient received Tylenol for persistent complaints of discomfort in the great toe. I do not believe based on review of records at other pain medications including narcotics are indicated. On reassessment after approximately 30 minutes of Surgicel and dressing being in place, patient has not blood through his dressing. Hemostasis appears to have been fully achieved. He has his walking boot at bedside which was reapplied. He and family were given instructions to maintain the dressing in place until dressing change tonight. I also instructed them to call Dr. Akers's office immediately this morning for reevaluation and to discuss further wound care. I instructed them to continue home medications as prescribed including the antibiotics. Patient was given instructions on symptomatic management, follow up instructions, and return precautions for the emergency department. Patient indicated understanding and was discharged in stable condition. Critical Care Critical Care Time Critical Care Time: No
[2024-11-11] MEDS: ACETAMINOPHEN 500MG TAB 1000 MG PO (05:33)
[2024-11-11 06:06] VITALS: BP 132/68; PULSE 62; RESP 18; TEMP 36.7; O2SAT 99
== END 2024-11-11 06:15 | disposition home or self-care (01) ==
PROVIDERS: Emergency Provider Emergency Medicine; PCP Internal Medicine
DX: M79.674 Pain in right toe(s) (principal); T81.89XA Other complications of procedures, not elsewhere classified, initial encounter
CPT/HCPCS: 99282

== ENCOUNTER 2024-12-02 12:23 | Outpatient (CLI) | payer MEDICARE, SELFPAY ==
--- NOTE | 2024-12-02 12:26 | XR_ITS ---
FINAL REPORT CLINICAL HISTORY: right hallux fracture COMPARISON: 11/10/2024 FINDINGS: AP, oblique and lateral views of the right foot were obtained. Interval healing of the fracture at the lateral base of the distal phalanx of the great toe. Fracture line is not well seen on today's exam. No new abnormality identified. There is mild multi joint degenerative disease. Increased density along the nailbed of the great toe is likely artifactual. Soft tissues are unremarkable. IMPRESSION: Healing great toe fracture as above without new abnormality identified. Reviewed, Interpreted and Dictated by Leti Dye MD Transcribed by Katie Decker Authenticated and [facility]
== END 2024-12-02 23:59 | disposition home or self-care (01) ==
LOC: RAD 12:24
PROVIDERS: PCP Internal Medicine; Visit Provider Podiatrist
DX: M79.671 Pain in right foot (principal); S92.424B Nondisplaced fracture of distal phalanx of right great toe, initial encounter for open fracture
CPT/HCPCS: 73630

== ENCOUNTER 2024-12-18 07:14 | Outpatient (CLI) | payer MEDICARE, SELFPAY ==
--- NOTE | 2024-12-18 07:15 | CT_ITS ---
FINAL REPORT TECHNIQUE: Axial CT without IV contrast administration. Coronal and sagittal images were obtained and reviewed. This study was performed with techniques to keep radiation doses as low as reasonably achievable, (ALARA). Individualized dose reduction techniques using automated exposure control or adjustment of mA and/or kV according to the patient''s size were employed. CLINICAL HISTORY: 6 mth follow up left upper lobe nodule COMPARISON: 05/12/2024 FINDINGS: There is an oval nodule in the subpleural left upper lobe on image 15 of series 2 measuring 14 x 11 mm and previously measured 10 x 7 mm on axial imaging. There is a stable 2 mm nodule in the left lower lobe in the lateral costophrenic angle on image 68. A 3 mm right lower lobe nodule on image 30 is unchanged along the major fissure. There are no enlarged noncalcified lymph nodes. There is no evidence of pleural effusion. IMPRESSION: Further enlargement of the left upper lobe nodule which should be regarded as suspicious for neoplasm. Recommend PET-CT along with CT-guided lung biopsy. Reviewed, Interpreted and Dictated by Everett Roberts MD Transcribed by Katie Decker Authenticated and [facility]
== END 2024-12-18 23:59 | disposition home or self-care (01) ==
LOC: RAD 07:14
PROVIDERS: PCP Internal Medicine; Visit Provider Internal Medicine Pulmonary Disease
DX: R91.8 Other nonspecific abnormal finding of lung field (principal)
CPT/HCPCS: 71250

== ENCOUNTER 2025-04-14 14:06 | Outpatient (CLI) | payer MEDICARE, SELFPAY ==
--- OUTSIDE RECORDS SUMMARY | 2025-02-05 08:15 | XMS_ITS | Encounter Summary ---
Author Organization [facility] Address [address] [place] [address] Care Team Providers Care Mental Health Case Manager Name Role Phone Deep Keen BLADE GRADER OPERATOR Primary Care Provider [phone] Forrest Nickerson BLADE GRADER OPERATOR Unavailable [phone] Reason for Referral * Imaging (Urgent) - Authorized Specialty Diagnoses / Procedures Referred By Contac t Referred To Contact Diagnoses Non-small cell cancer of left lung (CMS/HCC) Procedures CT Head w and wo IV Contrast CT Head w and wo IV Contrast Angel Parker MD [address] [place] [phone] Phone: tel: fax: [facility] () [address] [place] [address] Phone: tel: fax: Referral ID Status Reason Start Date Expiration Date V isits Requested Visits Authorized [id number] Authorized 02/05/2025 08/07/2026 1 1 * Consultation (Urgent) - Closed Specialty Diagnoses / Procedures Referred By Contac t Referred To Contact Medical Oncology / Hematology and Oncology Diagnoses Non-small cell cancer of left lung (CMS/HCC) Angel Parker MD [address] [place] [phone] Phone: tel: fax: [facility] [address] [facility]nd [place] [address] Phone: tel: fax: Referral ID Status Reason Start Date Expiration Date V isits Requested Visits Authorized [id number] Closed Specialty Services Required 02/05/2025 08/07/2026 1 1 * Consultation (Urgent) - Closed Specialty Diagnoses / Procedures Referred By Contac t Referred To Contact Cardiothoracic Surgery Diagnoses Non-small cell cancer of left lung (CMS/HCC) Angel Parker MD [address] [place] [phone] Phone: tel: fax: Cardiothoracic Surgery [address] [phone] Phone: tel: Referral ID Status Reason Start Date Expiration Date V isits Requested Visits Authorized [id number] Closed Specialty Services Required 02/05/2025 08/07/2026 1 1 * Imaging (Urgent) - Closed Specialty Diagnoses / Procedures Referred By Contchristi t Referred To Contact Radiology Diagnoses Non-small cell cancer of left lung (CMS/HCC) Procedures PET/CT FDG Skull Base To Mid Thigh Angel Parker MD [address] [place] [phone] Phone: tel: fax: Referral ID Status Reason Start Date Expiration Date Visits Re quested Visits Authorized [id number] Closed 02/05/2025 08/07/2026 2 2 Encounter Details Date Type Department Care Team ([facility] st Contact Info) Description 02/05/2025 8:15 AM EDT Office Visit [facility] [address] [place] [address] Angel Parker MD [address] [place] [address] Non-small cell cancer of left lung (CMS/HCC) (Primary Dx); CKD (chronic kidney disease) stage 2, GFR 60-89 ml/min Social History Tobacco Use Types Packs/Day Years Used Date Smoking Tobacco: Every Day Cigars Started: 1956 Smokeless Tobacco: Never Alcohol Use Standard Drinks/Week Comments Yes 14 (1 standard drink = 0.6 oz pu re alcohol) 2 oz crown royal daily Sex and Gender Information Value Date Recorded Sex Assigned at Male 01/28/2025 11:17 AM EDT Legal Sex Male 8:02 PM EDT Gender Identity Male 01/28/2025 11:17 AM EDT Sexual Orientation Not on file documented as of this encounter Miscellaneous Notes * Addendum Note - Sharon Guillory RN - 02/05/2025 8:15 AM EDTAddended by: SHARON GUILLORY on: 02/05/2025 10:53 AM Modules accepted: Orders * Addendum Note - Sharon Guillory RN - 02/05/2025 8:15 AM EDTAddended by: SHARON GUILLORY on: 02/15/2025 03:32 PM Modules accepted: Orders * Progress Notes - Angel Parker MD - 02/05/2025 8:15 AM EDT Images from the original note were not included. Telehealth Statement Patient Verification Patient identity has been confirmed using name and date of ? Yes Authorizations and Agreements/Telemedicine Consent sent and consent confirmed? Yes Patient Location: Home/Other Patient confirms they are physically located in [place]? Yes If the patient is not physically located in [place], the provider has confirmed with [facility] thatthe provider is authorized to provide services in patient's stated location? Yes Provider Location: [facility] facility Audio and video or audio only? Audio only Patient prefers audio communications. Total visit time: 30 minutes HEAD, NECK, RESPIRATORY CLINIC FOLLOW-UP OUTPATIENT NOTE: Patient ID/Chief Complaint: .Cole Feliz Jr. is a 79 y.o. male presenting for follow up on left upper lobe nodule. History of Present Illness: Cole Feliz Jr. is a 79 y.o. male tobacco use, suspected COPD, exertional dyspnea, and coronary artery disease s/p PCI with some calcification of the carotids is taking Plavix and aspirin. The nodule history goes back to 2020 when a small 8 mm nodule was noted in the left upper lobe thiswas followed over time including a PET scan that was performed on September 2022 that showed SUV of 2.6. CT was repeated April and finally in December of 2024 the nodule had slowly grown from the 8 mm to 10 x 7 mm to 14 x 11 mm thus increasing the possibility that this nodule may be a primary lung malignancy. Denies recent weight loss, actually reports 20lbs weight gain in past 4 months. Denies fevers, chills, night sweats, or hemoptysis. Denies dyspnea at rest but has dyspnea on exertion. Chronic non-productive cough. Uses rescue inhaler as needed, less than once weekly. Current smoker, 5-6 cigarillos per day for past 10 years. Had quit for some years before that, but started smoking at age 13. Reports father and mother both had lung cancer. Interval History: Mr. Feliz had bronchoscopy and biopsy on 01/28/2025. Since the procedure, the patient has been doing well with no new complaints. The patient's was present on the phone as well. PFSH: Reviewed in EMR, Significant Changes Noted Above Review of Systems: 14 point review of systems negative except for hpi. Medications: Current Medications[1] Immunizations: Chart reviewed: immunizations are up to date and documented. There is no immunization history on file for this patient. Review of Data: Fine needle aspiration: [id number] Order: [id number] Collected 01/28/2025 14:26 Status: Edited Result - FINAL Dx: Lung nodule Test Result Released: No (scheduled for 02/05/2025 9:49 AM) 0 Result Notes Component Addendum PD-L1 IHC 22C3 pharmDx* is performed and the results are as follows: - Tumor proportion score (TPS)*: 25% - Expression level: Positive for PD-L1 expression (TPS 1-49%) Comments to treating physician: Pembrolizumab is indicated for treatment of patients with metastatic NSCLC whose tumors have high PD-L1 expression (TPS greater than or equal to 50%) as determined by an FDA-approved test, with no EGFR or ALK genomic tumor aberrations, and no prior systemic chemotherapy treatment for metastatic NSCLC. Pembrolizumab is also indicated for the treatment of patients with metastatic NSCLC whose tumorsexpress PD-L1 (TPS greater than or equal to 1%) as determined by an FDA-approved test, with diseaseprogression on or after pokagon-containing chemotherapy. Patients with EGFR or ALK genomic tumor aberrations should have disease progression on FDA-approved therapy for these aberrations prior to rec eiving Pembrolizumab. PD-L1 IHC serves as a complementary diagnostic in regards to other PD-L1/XG-5-qtkhlkqqvcxniinuo (Nivolumab, Atezolizumab, Durvalumab, etc). Expression level: >Negative for PD-L1 expression (TPS less than 1%) >Positive for PD-L1 expression (TPS 1-49%) >Positive for high PD-L1 expression (TPS greater than or equal to 50%) *PD-L1 IHC 22C3 pharmDx is a FDA-approved fire fighters dispatcher diagnostic for pembrolizumab performed on [employer] Stainer using formalin-fixed, paraffin imbedded (FFPE) tissue from non-small elizabeth lung carcinomas. Positivity is scored only in viable tumor cells with membrane staining (partial or complete) of greater than or equal to 1+ intensity. The TPS is estimated by manual quantification of PD-L1 positivity. Certain tissue processing factors such as decalcification, formalin fixation time outside an acceptable range (12 to 72 hrs), and prolonged time to fixation can affect PD-L1 staining/expression levels and results should be interpreted with caution in such instances. Additionally, tissue from older (greater than 5 yrs) formalin-fixed paraffin-embedded blocks may lose PD-L1 immunoreactivity. This assay is not validated for decalcified specimens. All controls show appropriate reactivity. All immunohistochemistry, in situ hybridization, and histochemical tests were developed by and are performed at the [facility], [address] [place] [address]. All tests reported here, except those addressing HER2 and PD-L1 expression as predictive markers, have not been cleared by or approved by the US Food and Drug Administration (FDA). The laboratory is regulated under CLIA as qualified to perform high-complexity testing. The tests are used for clinical purposes. They should not be regarded as investigational or for research. Addendum electronically signed by Radha Titus MD on 02/02/2025 at 0949 EDT Final Diagnosis A. 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 The transbronchial biopsy from the left upper lobe demonstrates a non-small call carcinoma with thefocal suggestion of gland formation. The immunoprofile noted below which supports the diagnosis of adenocarcinoma consistent with lung primary. PD-L1 IHC staining will be performed and that result will be issued as an addendum. Special and Immunohistochemical Stains IHC: B1-1TTF-1: Positive in tumor cells B1-2 P40: Negative in tumor cells B1-3 CK7: Positive in tumor cells B1-4 CK20: Negative in tumor cells All controls show appropriate reactivity. All immunohistochemistry, in situ hybridization, and histochemical tests were developed by and are performed at the [facility], [address] [place] [address]. All tests reported here, except those addressing HER2 (breast) and PD-L1 expression as predictive markers, have not been cleared by or approved by the US Food and Drug Administration (FDA). The FDA has determined that such clearance or approval is not necessary. The laboratory is regulated under CLIA as qualified to perform high-complexity testing. The tests are used for clinical purposes. They should not be regarded as investigational or for research. This assay has not been validated on decalcified tissues. Results should be interpreted with caution given the likelihood of false negativity on decalcified specimens. Intradepartmental Consultation with Agreement Dr. Miller Immediate Evaluation A: FNA performed by: Dr. Parker Number of sticks: 4 Immediate evaluation performed by: Dr. Ventura Evaluation episode # 1-4: Blood, non-diagnostic B: Biopsy performed by: Dr. Parker Number of sticks: Not provided This service has been rendered in part by a resident. A pathologist has personally reviewed the slides/tissue and has rendered and is responsible for diagnosis for the diagnosis that appears on the report. Gross Description A. LUNG, LEFT UPPER LOBE ENDOBRONCHIAL ULTRASOUND GUIDED FINE NEEDLE ASPIRATION 5 ml's bloody Needle rinse fluid processed as cellblock for complete evaluation of sample. Received4 diff quick slides and 4 pap slides. Cold Time: 1h 53m B. LUNG, LEFT UPPER LOBE TRANSBRONCHIAL BIOPSY Multiple white leggett cores of friable tissue, all measuring less than 0.1 cm in diameter and ranging from 0.01 cm to 0.7 cm in length, entirely submitted in biowrap and/or cassette. Specimen was placed in formalin at 2:45 pm in cytology, and then taken to histology at 4:30 pm where it received an additional 3 hours of formalin fixation. Cold Time: <1m Note: A resident was involved in the service. I attest I examined the relevant preparations for the specimens and confirmed the diagnosis or interpretation. Clinical Information lung nodule Resulting Agency [facility] Specimen Collected: 01/28/25 14:26 Last Resulted: 02/02/25 09:49 Order Details View Encounter Lab and Collection Details Routing Result History View All Conversations on this Encounter Scans on Order [id number] Lab Result Document - Document on 02/02/2025 9:50 AM Result Care Coordination Patient Communication 02/05/2025 9:49 AM Not seen Back to Top Fine needle aspiration: [id number] Order: [id number] Collected 01/28/2025 14:07 Status: Edited Result - FINAL Dx: Lung nodule Test Result Released: No (scheduled for 02/05/2025 9:49 AM) 0 Result Notes Component Addendum PD-L1 IHC 22C3 pharmDx* is performed and the results are as follows: - Tumor proportion score (TPS)*: 25% - Expression level: Positive for PD-L1 expression (TPS 1-49%) Comments to treating physician: Pembrolizumab is indicated for treatment of patients with metastatic NSCLC whose tumors have high PD-L1 expression (TPS greater than or equal to 50%) as determined by an FDA-approved test, with no EGFR or ALK genomic tumor aberrations, and no prior systemic chemotherapy treatment for metastatic NSCLC. Pembrolizumab is also indicated for the treatment of patients with metastatic NSCLC whose tumorsexpress PD-L1 (TPS greater than or equal to 1%) as determined by an FDA-approved test, with diseaseprogression on or after pokagon-containing chemotherapy. Patients with EGFR or ALK genomic tumor aberrations should have disease progression on FDA-approved therapy for these aberrations prior to rec eiving Pembrolizumab. PD-L1 IHC serves as a complementary diagnostic in regards to other PD-L1/OT-8-gmcjzevqzcmosxkwo (Nivolumab, Atezolizumab, Durvalumab, etc). Expression level: >Negative for PD-L1 expression (TPS less than 1%) >Positive for PD-L1 expression (TPS 1-49%) >Positive for high PD-L1 expression (TPS greater than or equal to 50%) *PD-L1 IHC 22C3 pharmDx is a FDA-approved fire fighters dispatcher diagnostic for pembrolizumab performed on [employer] Stainer using formalin-fixed, paraffin imbedded (FFPE) tissue from non-small elizabeth lung carcinomas. Positivity is scored only in viable tumor cells with membrane staining (partial or complete) of greater than or equal to 1+ intensity. The TPS is estimated by manual quantification of PD-L1 positivity. Certain tissue processing factors such as decalcification, formalin fixation time outside an acceptable range (12 to 72 hrs), and prolonged time to fixation can affect PD-L1 staining/expression levels and results should be interpreted with caution in such instances. Additionally, tissue from older (greater than 5 yrs) formalin-fixed paraffin-embedded blocks may lose PD-L1 immunoreactivity. This assay is not validated for decalcified specimens. All controls show appropriate reactivity. All immunohistochemistry, in situ hybridization, and histochemical tests were developed by and are performed at the [facility], [address] [place] [address]. All tests reported here, except those addressing HER2 and PD-L1 expression as predictive markers, have not been cleared by or approved by the US Food and Drug Administration (FDA). The laboratory is regulated under CLIA as qualified to perform high-complexity testing. The tests are used for clinical purposes. They should not be regarded as investigational or for research. Addendum electronically signed by Radha Titus MD on 02/02/2025 at 0949 EDT Final Diagnosis A. 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 The transbronchial biopsy from the left upper lobe demonstrates a non-small call carcinoma with thefocal suggestion of gland formation. The immunoprofile noted below which supports the diagnosis of adenocarcinoma consistent with lung primary. PD-L1 IHC staining will be performed and that result will be issued as an addendum. Special and Immunohistochemical Stains IHC: B1-1TTF-1: Positive in tumor cells B1-2 P40: Negative in tumor cells B1-3 CK7: Positive in tumor cells B1-4 CK20: Negative in tumor cells All controls show appropriate reactivity. All immunohistochemistry, in situ hybridization, and histochemical tests were developed by and are performed at the [facility], [address] [place] [address]. All tests reported here, except those addressing HER2 (breast) and PD-L1 expression as predictive markers, have not been cleared by or approved by the US Food and Drug Administration (FDA). The FDA has determined that such clearance or approval is not necessary. The laboratory is regulated under CLIA as qualified to perform high-complexity testing. The tests are used for clinical purposes. They should not be regarded as investigational or for research. This assay has not been validated on decalcified tissues. Results should be interpreted with caution given the likelihood of false negativity on decalcified specimens. Intradepartmental Consultation with Agreement Dr. Miller Immediate Evaluation A: FNA performed by: Dr. Parker Number of sticks: 4 Immediate evaluation performed by: Dr. Ventura Evaluation episode # 1-4: Blood, non-diagnostic B: Biopsy performed by: Dr. Parker Number of sticks: Not provided This service has been rendered in part by a resident. A pathologist has personally reviewed the slides/tissue and has rendered and is responsible for diagnosis for the diagnosis that appears on the report. Gross Description A. LUNG, LEFT UPPER LOBE ENDOBRONCHIAL ULTRASOUND GUIDED FINE NEEDLE ASPIRATION 5 ml's bloody Needle rinse fluid processed as cellblock for complete evaluation of sample. Received4 diff quick slides and 4 pap slides. Cold Time: 1h 53m B. LUNG, LEFT UPPER LOBE TRANSBRONCHIAL BIOPSY Multiple white leggett cores of friable tissue, all measuring less than 0.1 cm in diameter and ranging from 0.01 cm to 0.7 cm in length, entirely submitted in biowrap and/or cassette. Specimen was placed in formalin at 2:45 pm in cytology, and then taken to histology at 4:30 pm where it received an additional 3 hours of formalin fixation. Cold Time: <1m Note: A resident was involved in the service. I attest I examined the relevant preparations for the specimens and confirmed the diagnosis or interpretation. Clinical Information lung nodule Resulting Agency [facility] Specimen Collected: 01/28/25 14:07 Last Resulted: 02/02/25 09:49 Order Details View Encounter Lab and Collection Details Routing Result History View All Conversations on this Encounter Scans on Order [id number] Lab Result Document - Document on 02/02/2025 9:50 AM Result Care Coordination Patient Communication 02/05/2025 9:49 AM Not seen Back to Top Result Read / Acknowledged Acknowledge result No acknowledgement history exists for this order. Result Report Fine needle aspiration (Order #[id number]) on 01/28/25 Lab Component SmartPhrase Guide Fine needle aspiration (Order #[id number]) on 01/28/25 In Basket Actions Done Result Mgmt View in In Basket Patient Communication Fine needle aspiration 02/05/2025 9:49 AM Not seen Fine needle aspiration 02/05/2025 9:49 AM Not seen Fine needle aspiration: [id number] Order: [id number] Status: Edited Result - FINAL Next appt: 02/05/2025 at 08:15 AM in Hematology and Oncology (Angel Parker MD) Dx: Lung nodule Test Result Released: No (scheduled for 02/05/2025 9:49 AM) 0 Result Notes Component Case Report Cytology Case: [id number] Authorizing Provider: Angel Parker MD Collected: 01/28/2025 1407 Ordering Location: [facility] Received: 01/28/2025 1502 Pathologist: June Ventura MD Specimens: A) - Lung, Left Upper Lobe, Fine Needle Aspiration, LUNG, LEFT UPPER LOBE ENDOBRONCHIAL ULTRASOUND GUIDED FINE NEEDLE ASPIRATION B) - Lung, Left Upper Lobe, Transbronchial Biopsy, LUNG, LEFT UPPER LOBE TRANSBRONCHIAL BIOPSY Addendum PD-L1 IHC 22C3 pharmDx* is performed and the results are as follows: - Tumor proportion score (TPS)*: 25% - Expression level: Positive for PD-L1 expression (TPS 1-49%) Comments to treating physician: Pembrolizumab is indicated for treatment of patients with metastatic NSCLC whose tumors have high PD-L1 expression (TPS greater than or equal to 50%) as determined by an FDA-approved test, with no EGFR or ALK genomic tumor aberrations, and no prior systemic chemotherapy treatment for metastatic NSCLC. Pembrolizumab is also indicated for the treatment of patients with metastatic NSCLC whose tumorsexpress PD-L1 (TPS greater than or equal to 1%) as determined by an FDA-approved test, with diseaseprogression on or after pokagon-containing chemotherapy. Patients with EGFR or ALK genomic tumor aberrations should have disease progression on FDA-approved therapy for these aberrations prior to rec eiving Pembrolizumab. PD-L1 IHC serves as a complementary diagnostic in regards to other PD-L1/AM-4-ejttgravznnvqxbbw (Nivolumab, Atezolizumab, Durvalumab, etc). Expression level: >Negative for PD-L1 expression (TPS less than 1%) >Positive for PD-L1 expression (TPS 1-49%) >Positive for high PD-L1 expression (TPS greater than or equal to 50%) *PD-L1 IHC 22C3 pharmDx is a FDA-approved fire fighters dispatcher diagnostic for pembrolizumab performed on [employer] Stainer using formalin-fixed, paraffin imbedded (FFPE) tissue from non-small elizabeth lung carcinomas. Positivity is scored only in viable tumor cells with membrane staining (partial or complete) of greater than or equal to 1+ intensity. The TPS is estimated by manual quantification of PD-L1 positivity. Certain tissue processing factors such as decalcification, formalin fixation time outside an acceptable range (12 to 72 hrs), and prolonged time to fixation can affect PD-L1 staining/expression levels and results should be interpreted with caution in such instances. Additionally, tissue from older (greater than 5 yrs) formalin-fixed paraffin-embedded blocks may lose PD-L1 immunoreactivity. This assay is not validated for decalcified specimens. All controls show appropriate reactivity. All immunohistochemistry, in situ hybridization, and histochemical tests were developed by and are performed at the [facility], [address] [place] [address]. All tests reported here, except those addressing HER2 and PD-L1 expression as predictive markers, have not been cleared by or approved by the US Food and Drug Administration (FDA). The laboratory is regulated under CLIA as qualified to perform high-complexity testing. The tests are used for clinical purposes. They should not be regarded as investigational or for research. Addendum electronically signed by Radha Titus MD on 02/02/2025 at 0949 EDT Final Diagnosis A. 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 The transbronchial biopsy from the left upper lobe demonstrates a non-small call carcinoma with thefocal suggestion of gland formation. The immunoprofile noted below which supports the diagnosis of adenocarcinoma consistent with lung primary. PD-L1 IHC staining will be performed and that result will be issued as an addendum. Special and Immunohistochemical Stains IHC: B1-1TTF-1: Positive in tumor cells B1-2 P40: Negative in tumor cells B1-3 CK7: Positive in tumor cells B1-4 CK20: Negative in tumor cells All controls show appropriate reactivity. All immunohistochemistry, in situ hybridization, and histochemical tests were developed by and are performed at the [facility], [address] [place] [address]. All tests reported here, except those addressing HER2 (breast) and PD-L1 expression as predictive markers, have not been cleared by or approved by the US Food and Drug Administration (FDA). The FDA has determined that such clearance or approval is not necessary. The laboratory is regulated under CLIA as qualified to perform high-complexity testing. The tests are used for clinical purposes. They should not be regarded as investigational or for research. This assay has not been validated on decalcified tissues. Results should be interpreted with caution given the likelihood of false negativity on decalcified specimens. Intradepartmental Consultation with Agreement Dr. Miller Immediate Evaluation A: FNA performed by: Dr. Parker Number of sticks: 4 Immediate evaluation performed by: Dr. Ventura Evaluation episode # 1-4: Blood, non-diagnostic B: Biopsy performed by: Dr. Parker Number of sticks: Not provided This service has been rendered in part by a resident. A pathologist has personally reviewed the slides/tissue and has rendered and is responsible for diagnosis for the diagnosis that appears on the report. Gross Description A. LUNG, LEFT UPPER LOBE ENDOBRONCHIAL ULTRASOUND GUIDED FINE NEEDLE ASPIRATION 5 ml's bloody Needle rinse fluid processed as cellblock for complete evaluation of sample. Received4 diff quick slides and 4 pap slides. Cold Time: 1h 53m B. LUNG, LEFT UPPER LOBE TRANSBRONCHIAL BIOPSY Multiple white leggett cores of friable tissue, all measuring less than 0.1 cm in diameter and ranging from 0.01 cm to 0.7 cm in length, entirely submitted in biowrap and/or cassette. Specimen was placed in formalin at 2:45 pm in cytology, and then taken to histology at 4:30 pm where it received an additional 3 hours of formalin fixation. Cold Time: <1m Note: A resident was involved in the service. I attest I examined the relevant preparations for the specimens and confirmed the diagnosis or interpretation. Clinical Information lung nodule Resulting Agency Lab Specimen Collected: 01/28/25 14:26 Last Resulted: 02/02/25 09:49 Order Details View Encounter Lab and Collection Details Routing Result History View All Conversations on this Encounter Scans on Order [id number] Lab Result Document - Document on 02/02/2025 9:50 AM Result Care Coordination Patient Communication 02/05/2025 9:49 AM Not seen Back to Top Fine needle aspiration: [id number] Order: [id number] Status: Edited Result - FINAL Next appt: 02/05/2025 at 08:15 AM in Hematology and Oncology (Angel Parker MD) Dx: Lung nodule Test Result Released: No (scheduled for 02/05/2025 9:49 AM) 0 Result Notes Component Case Report Cytology Case: [id number] Authorizing Provider: Angel Parker MD Collected: 01/28/2025 8399 Ordering Location: [facility] Received: 01/28/2025 3042 Pathologist: June Ventura MD Specimens: A) - Lung, Left Upper Lobe, Fine Needle Aspiration, LUNG, LEFT UPPER LOBE ENDOBRONCHIAL ULTRASOUND GUIDED FINE NEEDLE ASPIRATION B) - Lung, Left Upper Lobe, Transbronchial Biopsy, LUNG, LEFT UPPER LOBE TRANSBRONCHIAL BIOPSY Addendum PD-L1 IHC 22C3 pharmDx* is performed and the results are as follows: - Tumor proportion score (TPS)*: 25% - Expression level: Positive for PD-L1 expression (TPS 1-49%) Comments to treating physician: Pembrolizumab is indicated for treatment of patients with metastatic NSCLC whose tumors have high PD-L1 expression (TPS greater than or equal to 50%) as determined by an FDA-approved test, with no EGFR or ALK genomic tumor aberrations, and no prior systemic chemotherapy treatment for metastatic NSCLC. Pembrolizumab is also indicated for the treatment of patients with metastatic NSCLC whose tumorsexpress PD-L1 (TPS greater than or equal to 1%) as determined by an FDA-approved test, with diseaseprogression on or after pokagon-containing chemotherapy. Patients with EGFR or ALK genomic tumor aberrations should have disease progression on FDA-approved therapy for these aberrations prior to rec eiving Pembrolizumab. PD-L1 IHC serves as a complementary diagnostic in regards to other PD-L1/QE-6-bmyyqdwwpswxcnmat (Nivolumab, Atezolizumab, Durvalumab, etc). Expression level: >Negative for PD-L1 expression (TPS less than 1%) >Positive for PD-L1 expression (TPS 1-49%) >Positive for high PD-L1 expression (TPS greater than or equal to 50%) *PD-L1 IHC 22C3 pharmDx is a FDA-approved fire fighters dispatcher diagnostic for pembrolizumab performed on [employer] using formalin-fixed, paraffin imbedded (FFPE) tissue from non-small elizabeth lung carcinomas. Positivity is scored only in viable tumor cells with membrane staining (partial or complete) of greater than or equal to 1+ intensity. The TPS is estimated by manual quantification of PD-L1 positivity. Certain tissue processing factors such as decalcification, formalin fixation time outside an acceptable range (12 to 72 hrs), and prolonged time to fixation can affect PD-L1 staining/expression levels and results should be interpreted with caution in such instances. Additionally, tissue from older (greater than 5 yrs) formalin-fixed paraffin-embedded blocks may lose PD-L1 immunoreactivity. This assay is not validated for decalcified specimens. All controls show appropriate reactivity. All immunohistochemistry, in situ hybridization, and histochemical tests were developed by and are performed at the [facility], [address] [place] [address]. All tests reported here, except those addressing HER2 and PD-L1 expression as predictive markers, have not been cleared by or approved by the US Food and Drug Administration (FDA). The laboratory is regulated under CLIA as qualified to perform high-complexity testing. The tests are used for clinical purposes. They should not be regarded as investigational or for research. Addendum electronically signed by Radha Titus MD on 02/02/2025 at 0949 EDT Final Diagnosis A. 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 The transbronchial biopsy from the left upper lobe demonstrates a non-small call carcinoma with thefocal suggestion of gland formation. The immunoprofile noted below which supports the diagnosis of adenocarcinoma consistent with lung primary. PD-L1 IHC staining will be performed and that result will be issued as an addendum. Special and Immunohistochemical Stains IHC: B1-1TTF-1: Positive in tumor cells B1-2 P40: Negative in tumor cells B1-3 CK7: Positive in tumor cells B1-4 CK20: Negative in tumor cells All controls show appropriate reactivity. All immunohistochemistry, in situ hybridization, and histochemical tests were developed by and are performed at the [facility], [address] [place] [address]. All tests reported here, except those addressing HER2 (breast) and PD-L1 expression as predictive markers, have not been cleared by or approved by the US Food and Drug Administration (FDA). The FDA has determined that such clearance or approval is not necessary. The laboratory is regulated under CLIA as qualified to perform high-complexity testing. The tests are used for clinical purposes. They should not be regarded as investigational or for research. This assay has not been validated on decalcified tissues. Results should be interpreted with caution given the likelihood of false negativity on decalcified specimens. Intradepartmental Consultation with Agreement Dr. Miller Immediate Evaluation A: FNA performed by: Dr. Parker Number of sticks: 4 Immediate evaluation performed by: Dr. Ventura Evaluation episode # 1-4: Blood, non-diagnostic B: Biopsy performed by: Dr. Parker Number of sticks: Not provided This service has been rendered in part by a resident. A pathologist has personally reviewed the slides/tissue and has rendered and is responsible for diagnosis for the diagnosis that appears on the report. Gross Description A. LUNG, LEFT UPPER LOBE ENDOBRONCHIAL ULTRASOUND GUIDED FINE NEEDLE ASPIRATION 5 ml's bloody Needle rinse fluid processed as cellblock for complete evaluation of sample. Received4 diff quick slides and 4 pap slides. Cold Time: 1h 53m B. LUNG, LEFT UPPER LOBE TRANSBRONCHIAL BIOPSY Multiple white leggett cores of friable tissue, all measuring less than 0.1 cm in diameter and ranging from 0.01 cm to 0.7 cm in length, entirely submitted in biowrap and/or cassette. Specimen was placed in formalin at 2:45 pm in cytology, and then taken to histology at 4:30 pm where it received an additional 3 hours of formalin fixation. Impression: 1. Non-small cell cancer of left lung (CMS/HCC) Recommendations: Cole Feliz Jr. is a 79 y.o. male with tobacco use, suspected COPD, CAD s/p PCI (>1 year ago) on DAPT presenting with lung nodule in the HIEN increasing in size on the request of DR Tiffany Leblanc MD from [place]. -Discussed the results with the patient. Unfortunately the patient is positive for nonsmall cell lung cancer. Stage 1A. -Patient states that he is ambulate appropriately and can walk up stairs with no issue. Referral tothoracic, with pfts, MRI, PET. [1] Current Outpatient Medications Medication Sig Dispense Refill Albuterol Sulfate 108 (90 Base) MCG/ACT aerosol powder Inhale. (Patient not taking: Reported on 01/07/2025) aspirin 81 MG EC tablet Take 1 tablet by mouth daily. carvedilol (Coreg) 3.125 MG tablet Take by mouth 2 (two) times a day with meals. (Patient not taking: Reported on 01/07/2025) clopidogrel (Plavix) 75 MG tablet Take by mouth in the morning. doxazosin (Cardura) 4 MG tablet Take 4 mg by mouth every night. (Patient not taking: Reported on 01/07/2025) fluticasone-vilanterol (BREO ELIPTA) 100-25 MCG/INH inhaler Inhale. (Patient not taking: Reported on 01/07/2025) latanoprost (Xalatan) 0.005 % ophthalmic solution 1 drop every night. (Patient not taking: Reportedon 01/07/2025) lisinopril 10 MG tablet Take 10 mg by mouth 1 (one) time each day. (Patient not taking: Reported on01/07/2025) metFORMIN (Glucophage) 1000 MG tablet Take 1 tablet by mouth 2 (two) times a day. metFORMIN, MOD, (Glumetza) 500 MG 24 hr tablet Take 500 mg by mouth 1 (one) time each day with dinner. Do not crush, chew, or split. (Patient not taking: Reported on 01/07/2025) rosuvastatin (Crestor) 20 MG tablet Take 1 tablet by mouth nightly. No current facility-administered medications for this visit. documented in this encounter Plan of Treatment Upcoming Encounters Date Type Department Care Team (Late st Contact Info) Description 04/20/2025 10:00 AM EDT Appointment [facility] [address] [place] [address] 04/20/2025 10:30 AM EDT Office Visit [facility] [address] [facility]nd [place] [address] Ирина Lopez MD [address] [facility] [address] [place] [address] 07/06/2025 10:40 AM EDT Office Visit [facility] [address] [facility] [place] [address] Nikolai Naranjo MD [address] [facility] [address] [place] [address] Scheduled Orders Name Type Priority Associated Diagnoses Orde r Schedule CT Head w and wo IV Contrast Imaging STAT Non-small cell cancer of left lung (CMS/HCC) Expected: 02/15/2025 (Approximate), Expires: 08/07/2026 Creatinine, Plasma Lab STAT CKD (chronic kidney disease) stage 2, GFR 60-89 ml/min Expected: 02/15/2025 (Approximate), Expires: 08/18/2026 Scheduled Referrals Name Type Priority Associated Diagnoses Order Schedule Ambulatory referral to Thoracic Surgery Outpatient Referral Routine Non-small cell cancer of left lung (CMS/HCC) Expected: 02/05/2025 (Approximate), Expires: 08/07/2026 Ambulatory referral to Hematology Oncology/Medical Oncology Outpatient Referral Routine Non-small cell cancer of left lung (CMS/HCC) Expected: 02/05/2025 (Approximate), Expires: 08/07/2026 documented as of this encounter Results * PET/CT FDG Skull Base To Mid Thigh (02/22/2025 4:50 PM EDT) Anatomical Region Laterality Modality Nuclear Medicine Impressions 02/23/2025 11:30 AM EDT 1. Left upper lobe anterior subpleural intensely hypermetabolic nodule consistent with biopsy-proven adenocarcinoma. 2. Just inferolateral to the dominant nodule is an additional mildly hypermetabolic solid nodule, difference in metabolic profile might suggest different biology. 3. Asymmetric photopenic vasogenic edema within the left frontal region with no definite focal hypermetabolic activity, yet concerning for an underlying lesion. Further assessment with MRI brain is recommended. 4. Otherwise, no evidence of metabolically active metastatic disease to visceral organs or osseous structures. CRITICAL RESULT: No. COMMUNICATION: Per this written report. By electronically signing this report, I, the attending physician, attest that I have personally reviewed the images/data for the above examination(s) and agree with the final edited report. Drafted by DUY Jenkins on 02/23/2025 8:09 AM Final report signed by Yuan Briones MD on 02/23/2025 11:30 AM Narrative 02/23/2025 11:30 AM EDT CLINICAL INDICATION: 79 year-old male recently diagnosed with left Upper Lobe Non-small cell lung cancer (NSCLC) / adenocarcinoma Bx 01/28/2025 PD-L1 IHC 22C3 pharmDx: Tumor Proportion Score (TPS) = 25%, for staging. Presenting for initial staging and treatment planning. TECHNIQUE: Preparation: Last oral intake (except water) on February 22, 2025 at 12:00 PM. Diabetic: Yes. Oral metformin 7:00 AM February 22, 2025 Blood glucose at time of FDG administration: 101 mg/dL. Radiopharmaceutical: 13.19 mCi of F-18 FDG administered intravenously at right hand at 15:49. Incubation interval: 50 minutes. Oral contrast: Not applicable. Positioning: Arms raised. PET/CT scanner: Siemens Biograph 40 mCT. PET/CT acquisition: [id number]-zx-jpa-thighs. Standardized uptake value (SUV): Corrected for body weight only. CT: Low-dose, ubz-kgpzdn-errx, without intravenous contrast. TOTAL DLP (Dose Length Product): 479.43 mGy.cm mGy cm. COMPARISON/CORRELATION: No PET CT comparison. Chest CT January 28, 2025. . Outside noncontrast chest CT May 12, 2024 FINDINGS: Technical quality: Diagnostic although altered bowel biodistribution noted. Measurements: Unless otherwise specified, all SUVs refer to maximum value in the target (mSUV). Reference: mean SUV liver: 2.7. CT linear measurements performed on axial images. Head and Neck: Asymmetric photopenic vasogenic edema within the left frontal region with no definite focal hypermetabolic activity, yet concerning for an underlying lesion. No other suspicious metabolically active lesions within the head and neck. No other suspicious metabolically active or pathologically enlarged adenopathy. Hypermetabolic activity noted in the occipital cortex bilaterally and cerebellar vermis likely physiologic. Unremarkable thyroid gland. Mucosal thickening noted in all paranasal sinuses most prominent in the sphenoid sinus left lateral expansion. Partial opacification mucosal thickening mastoid air cells bilaterally. Right-sided sigmoid diverticula with extremely thin overlying bony plate suggesting dehiscence. Chest: Left upper lobe apical posterior segment intensely hypermetabolic nodule in the anterior medial aspect peripherally measuring 2 cm x 1.5 cm with maximum SUV of 15.4 (image 153 series 4). This nodule is difficult to separate from adjacent left subclavian artery in the noncontrast CT. Just inferolateral to the dominant nodule is an additional mild to mildly hypermetabolic nodule measuring 1.3 cm in diameter with apparent misregistration of hypermetabolic activity with maximum SUV 1.8 (image 161 series 4 and 3). Fhe-EHG-zufu subpleural 4 mm tiny perifissural nodule is noted at the posterior-superior aspect of the right major fissure. (Image 176 series 4) Bilateral scattered few subcentimeter tiny nodules likely sequela of granulomatous disease. No suspicious metabolically active or pathologically enlarged hilar or mediastinal adenopathy. Multiple small to borderline enlarged mediastinal and right hilar lymph nodes, some of which are mildly hypermetabolic and some are partially calcified, favor granulomatous inflammatory disease. Minimal bibasilar atelectasis, mild middle lobe and lingular scarring. Normal caliber of the thoracic aorta. Aortic and coronary calcifications. No pleural effusion, pericardial effusion or pneumothorax. Abdomen and Pelvis: No suspicious metabolically active lesions within the abdomen and pelvis. No suspicious metabolically active or pathologically enlarged retroperitoneal or pelvic adenopathy. Solid Abdominal Organs: Multiple variable sized photopenic hypoattenuating liver lesions with attenuation ranging from -5 to 20 Hounsfield units without definite size change from outside prior chest CT, likely cysts. Correlation with other available imaging modalities such as ultrasound/MRI may be advised if clinically required No suspicious focal hypermetabolic lesions in the liver significantly greater than the heterogeneous physiologic uptake. Unremarkable noncontrast appearance of the liver. Unremarkable gallbladder. No biliary dilatation. Unremarkable noncontrast appearance of the spleen. Calcified splenic granulomas. Unremarkable kidneys. No hydronephrosis. No suspicious adrenal masses. No suspicious pancreatic findings. GI Tract/Mesentery/Peritoneum: There is diffuse intense radiotracer uptake throughout the entire colon, typically Metformin-related. The large and small bowel appear normal in caliber. No suspicious peritoneal/mesenteric findings. Pelvic Viscera: No pelvic masses Unremarkable urinary bladder, except for funneling. Activity within the prostate is likely within the prostatic urethra/bladder funneling from excreted urine. Vasculature: Normal caliber of the abdominal aorta Calcified atherosclerotic changes. Free Fluid: No ascites or drainable fluid collection Skeleton and Soft Tissues: No suspicious metabolically active osseous or soft tissue lesions. No aggressive osseous lytic or sclerotic lesions. Multilevel degenerative changes. Procedure Note Yuan Ramírez MD - 02/23/2025 CLINICAL INDICATION: 79 year-old male recently diagnosed with left Upper Lobe Non-small celllung cancer (NSCLC) / adenocarcinoma Bx 01/28/2025 PD-L1 IHC 22C3 pharmDx:Tumor Proportion Score (TPS) = 25%, for staging. Presenting for initialstaging and treatment planning. TECHNIQUE: Preparation: Last oral intake (except water) on February 22, 2025 at 12:00PM. Diabetic: Yes. Oral metformin 7:00 AM February 22, 2025 Blood glucose at time of FDG administration: 101 mg/dL. Radiopharmaceutical: 13.19 mCi of F-18 FDG administered intravenously atright hand at 15:49. Incubation interval: 50 minutes. Oral contrast: Not applicable. Positioning: Arms raised. PET/CT scanner: Siemens Biograph 40 mCT. PET/CT acquisition: Copdci-sr-bca-thighs. Standardized uptake value (SUV): Corrected for body weight only. CT: Low-dose, fvu-pcanqp-ccvn, without intravenous contrast. TOTAL DLP (Dose Length Product): 479.43 mGy.cm mGy cm. COMPARISON/CORRELATION: No PET CT comparison. Chest CT January 28, 2025. . Outside noncontrast chestCT May 12, 2024 FINDINGS: Technical quality: Diagnostic although altered bowel biodistributionnoted. Measurements: Unless otherwise specified, all SUVs refer to maximum valuein the target (mSUV). Reference: mean SUV liver: 2.7. CT linear measurements performed on axial images. Head and Neck: Asymmetric photopenic vasogenic edema within the left frontal region withno definite focal hypermetabolic activity, yet concerning for anunderlying lesion. No other suspicious metabolically active lesions within the head andneck. No other suspicious metabolically active or pathologically enlargedadenopathy. Hypermetabolic activity noted in the occipital cortex bilaterally andcerebellar vermis likely physiologic. Unremarkable thyroid gland. Mucosal thickening noted in all paranasal sinuses most prominent in thesphenoid sinus left lateral expansion. Partial opacification mucosalthickening mastoid air cells bilaterally. Right-sided sigmoid diverticulawith extremely thin overlying bony plate suggesting dehiscence. Chest: Left upper lobe apical posterior segment intensely hypermetabolic nodulein the anterior medial aspect peripherally measuring 2 cm x 1.5 cm withmaximum SUV of 15.4 (image 153 series 4). This nodule is difficult toseparate from adjacent left subclavian artery in the noncontrast CT. Just inferolateral to the dominant nodule is an additional mild to mildlyhypermetabolic nodule measuring 1.3 cm in diameter with apparentmisregistration of hypermetabolic activity with maximum SUV 1.8 (image 161series 4 and 3). Bck-NDG-hqva subpleural 4 mm tiny perifissural nodule is noted at theposterior-superior aspect of the right major fissure. (Image 176 series4) Bilateral scattered few subcentimeter tiny nodules likely sequela ofgranulomatous disease. No suspicious metabolically active or pathologically enlarged hilar ormediastinal adenopathy. Multiple small to borderline enlarged mediastinal and right hilar lymphnodes, some of which are mildly hypermetabolic and some are partiallycalcified, favor granulomatous inflammatory disease. Minimal bibasilar atelectasis, mild middle lobe and lingular scarring. Normal caliber of the thoracic aorta. Aortic and coronarycalcifications. No pleural effusion, pericardial effusion or pneumothorax. Abdomen and Pelvis: No suspicious metabolically active lesions within the abdomen andpelvis. No suspicious metabolically active or pathologically enlargedretroperitoneal or pelvic adenopathy. Solid Abdominal Organs: Multiple variable sized photopenic hypoattenuating liver lesions withattenuation ranging from -5 to 20 Hounsfield units without definite sizechange from outside prior chest CT, likely cysts. Correlation with otheravailable imaging modalities such as ultrasound/MRI may be advised ifclinically required No suspicious focal hypermetabolic lesions in the liver significantlygreater than the heterogeneous physiologic uptake. Unremarkablenoncontrast appearance of the liver. Unremarkable gallbladder. No biliary dilatation. Unremarkable noncontrast appearance of the spleen. Calcified splenicgranulomas. Unremarkable kidneys. No hydronephrosis. No suspicious adrenal masses. No suspicious pancreatic findings. GI Tract/Mesentery/Peritoneum: There is diffuse intense radiotracer uptake throughout the entire colon,typically Metformin-related. The large and small bowel appear normal in caliber. No suspicious peritoneal/mesenteric findings. Pelvic Viscera: No pelvic masses Unremarkable urinary bladder, except for funneling. Activity within theprostate is likely within the prostatic urethra/bladder funneling fromexcreted urine. Vasculature: Normal caliber of the abdominal aorta Calcified atherosclerotic changes. Free Fluid: No ascites or drainable fluid collection Skeleton and Soft Tissues: No suspicious metabolically active osseous or soft tissue lesions. No aggressive osseous lytic or sclerotic lesions. Multilevel degenerative changes. IMPRESSION: 1.Left upper lobe anterior subpleural intensely hypermetabolic noduleconsistent with biopsy-proven adenocarcinoma. 2.Just inferolateral to the dominant nodule is an additional mildlyhypermetabolic solid nodule, difference in metabolic profile might suggestdifferent biology. 3.Asymmetric photopenic vasogenic edema within the left frontal regionwith no definite focal hypermetabolic activity, yet concerning for anunderlying lesion. Further assessment with MRI brain is recommended. 4.Otherwise, no evidence of metabolically active metastatic disease tovisceral organs or osseous structures. CRITICAL RESULT: No. COMMUNICATION: Per this written report. By electronically signing this report, I, the attending physician, attestthat I have personally reviewed the images/data for the aboveexamination(s) and agree with the final edited report. Drafted by DUY Jenkins on 02/23/2025 8:09 AM Final report signed by Yuan Briones MD on 02/23/2025 11:30 AM Angel Parker MD [facility] NM PROCEDURES Final Result * (ABNORMAL) Pulmonary function testing (02/22/2025 3:10 PM EDT) [id number] 3.10 2.66 - 4.70 L VYAIRE PFT FVC PRED 3.68 VYAIRE PFT FVC LLN 2.66 VYAIRE PFT FVCPREZSCORE -0.93 VYAIRE PFT FVCPRE%PRED 84 % % VYAIRE PFT FVC PREDAUT US_Quanjer GLI (2011) VYAIRE PFT FVC Z-SCORE -0.93 VYAIRE PFT FEV1 PRE 2.19 1.91 - 3.51 L VYAIRE PFT FEV1 PRED 2.74 VYAIRE PFT FEV1 LLN 1.91 VYAIRE PFT WCG0RYIATDTBE -1.12 VYAIRE PFT FEV1_Pre%Pred 80 % % VYAIRE PFT FEV1 PREDAUTV[facility] (2011) VYAIRE PFT FEV1 Z-SCORE -1.12 VYAIRE PFT FEV1/FVC PRE 70.45 60.56 - 88.37 % VYAIRE PFT ZLW6QDGANUQ 75 VYAIRE PFT YUU3JQMJKL 61 VYAIRE PFT KVR7QHHIEENHZUOD -0.55 VYAIRE PFT UJQ5OEXZYY%PRED 94 % % VYAIRE PFT DLT6HKMCXWZN [facility] (2011) VYAIRE PFT JWY0YTCACUKJL -1 VYAIRE PFT FZZ38-78% PRE 1.22 0.77 - 3.77 L/s VYAIRE PFT ZIC19-28%_Pred 1.98 VYAIRE PFT AOG4596%LLN 0.77 VYAIRE PFT YCR8441%PREZSCORE -0.95 VYAIRE PFT LXI8163%PRE%PRED 61 % % VYAIRE PFT EMT7509%PREDAUTVanderbilt-In[facility] (2011) VYAIRE PFT PEF PRE 5.01 4.85 - 9.22 L/s VYAIRE PFT PEF PRED 7.04 VYAIRE PFT PEF LLN 4.85 VYAIRE PFT PEFPREZSCORE -1.52 VYAIRE PFT PEFPRE%PRED 71 % % VYAIRE PFT PEF PREDAUT NHANES III (1998) VYAIRE PFT BQJSLJIIJYXILKMQ8RQZ 15.18(A) 16.80 - 30.86 ml/(min* mmHg) VYAIRE PFT DLCOSINGLEBREATH PRED 23.19 VYAIRE PFT DLCOSINGLEBREATH LLN 16.80 VYAIRE PFT DLCOSINGLEBREATH Z-SCORE -2.12 VYAIRE PFT DLCOSINGLEBREATH % PRED 65.4 % VYAIRE PFT DLCOSINGLEBREATH PREDAUTH Stanojevic TLCO GLI (2019) VYAIRE PFT DLCOSINGLEBREATH Z-SCORE -2.12 02/22/2025 3:48 PM EDT VYAIRE PFT RRGIIHAEJVAYYYTWJ3WQ E 15.18(A) 16.80 - 30.86 ml/(min* mmHg) VYAIRE PFT DLCOCSINGLEBREATH PRED 23.19 VYAIRE PFT DLCOCSINGLEBREATH LLN 16.80 VYAIRE PFT DLCOCSINGLEBREATH Z-SCORE -2.12 VYAIRE PFT DLCOCSINGLEBREATH % PRED 65.4 % VYAIRE PFT DLCOCSINGLEBREATH [facility] Stanojevic TLCO GLI (2019) VYAIRE PFT ZEFVCX8NCS 3.06 2.88 - 5.12 ml/(min* mmHg*L) VYAIRE PFT DLCOVAPRED 3.95 VYAIRE PFT DLCOVALLN 2.88 VYAIRE PFT DLCOVAZSCORE -1.37 VYAIRE PFT DLCOVA%PRED 77.4 % VYAIRE PFT DLCOVAPREDAUTH Stanojevic TLCO GLI (2019) VYAIRE PFT DLCOVAZSCORE -1.37 02/22/2025 3:48 PM EDT VYAIRE PFT CBFOTBFLV3HJT 3.06 2.88 - 5.12 ml/(min* mmHg*L) VYAIRE PFT DLCOC SB/VA PRED 3.95 VYAIRE PFT DLCOC SB/VA LLN 2.88 VYAIRE PFT DLCOC SB/VA Z-SCORE -1.37 VYAIRE PFT DLCOC SB/VA % PRED 77.4 % VYAIRE PFT DLCOC SB/VA PREDAUT Stanojevic TLCO GLI (2019) VYAIRE PFT DLCOC SB/VA Z-SCORE -1.37 02/22 3:48 PM EDT VYAIRE PFT MDIXPKFJHFUDIW6ICV 4.97 4.73 - 7.15 L VYAIRE PFT VASINGLEBREATH PRED 5.90 VYAIRE PFT VASINGLEBREATH LLN 4.73 VYAIRE PFT VASINGLEBREATH Z-SCORE -1.31 VYAIRE PFT VASINGLEBREATH % PRED 84.2 % VYAIRE PFT VASINGLEBREATH PREDAUT Stanojevic TLCO GLI (2019) VYAIRE PFT VASINGLEBREATH Z-SCORE -1.31 02/22/2025 3:48 PM EDT VYAIRE PFT ZDUJCAFWVATSYEQ4IYC 3.12 2.66 - 4.70 L VYAIRE PFT IVCSINGLEBREATH PRED 3.68 VYAIRE PFT IVCSINGLEBREATH LLN 2.66 VYAIRE PFT IVCSINGLEBREATH Z-SCORE -0.89 VYAIRE PFT IVCSINGLEBREATH % PRED 85.0 % VYAIRE PFT IVCSINGLEBREATH PREDAUT US_Quanjer GLI (2011) VYAIRE PFT CLEMENTINE% VCMAX PRE 100.00 % VYAIRE PFT TLC SB PRE 5.11(A) 5.16 - 8.10 L VYAIRE PFT TLCSINGLEBREATH PRED 6.62 VYAIRE PFT TLCSINGLEBREATH LLN 5.16 VYAIRE PFT TLCSINGLEBREATH Z-SCORE -1.70 VYAIRE PFT TLCSINGLEBREATH % PRED 77.3 % VYAIRE PFT TLCSINGLEBREATH PR[facility]AUTOhio[facility] Lung volumes GLI (2019)__ VYAIRE PFT HB PRE 14.60 g(Hb)/dL VYAIRE PFT UTR4TDZ 6.30 5.16 - 8.10 L VYAIRE PFT TLCPRED 6.62 VYAIRE PFT TLCLLN 5.16 VYAIRE PFT TLCULN 8.10 VYAIRE PFT TLCZSCORE -0.36 VYAIRE PFT TLC%PRED 95.1 % VYAIRE PFT TLCPREDAUTOhiohealth [facility]ady [facility] Hospital Lung volumes GLI (2019)__ VYAIRE PFT VC0PRE 3.29 2.66 - 4.70 L VYAIRE PFT VCPRED 3.68 VYAIRE PFT VCLLN 2.66 VYAIRE PFT VCULN 4.70 VYAIRE PFT VCZSCORE -0.63 VYAIRE PFT VC%PRED 89.4 % VYAIRE PFT VCPREDAUTGILA [facility] GLI (2011) VYAIRE PFT IC0PRE 1.78(A) 1.89 - 3.54 L VYAIRE PFT ICPRED 2.73 VYAIRE PFT ICLLN 1.89 VYAIRE PFT ICULN 3.54 VYAIRE PFT IC Z-SCORE -1.86 VYAIRE PFT IC%PRED 65.0 % [facility] P[facility] ICPRED[facility] Lung volumes GLI (2019)__ VYAIRE PFT UKBVZJWX3JGR 4.52 2.59 - 5.10 L VYAIRE PFT FRCPLETH PRED 3.70 VYAIRE PFT FRCPLETH LLN 2.59 VYAIRE PFT FRCPLETH ULN 5.10 VYAIRE PFT FRCPLETH Z-SCORE 1.01 VYAIRE PFT FRCPLETH % PRED 122.0 % [facility]AIRE PFT FRCPB[facility] PREDSouth [facility] Lung volumes GLI (2019)__ VYAIRE PFT OLB8FLR 1.51 0.31 - 2.34 L VYAIRE PFT ERVPRED 1.12 VYAIRE PFT ERVLLN 0.31 VYAIRE PFT ERVULN 2.34 VYAIRE PFT ERV Z-SCORE 0.59 VYAIRE PFT ERV%PRED 135.3 % [facility]AIRE PFT ERVPCross[facility]al Health Lung volumes GLI (2019)__ VYAIRE PFT RV0PRE 3.01 1.43 - 3.98 L VYAIRE PFT RVPRED 2.58 VYAIRE PFT RVLLN 1.43 VYAIRE PFT RVULN 3.98 VYAIRE PFT RVZSCORE 0.54 VYAIRE PFT RV%PRED 116.9 % VYAIRE PFT RVPREDSouth Shore Hospital Lung volumes GLI (2019)__ VYAIRE PFT RV%LYI9LYL 47.82 26.68 - 53.53 % VYAIRE PFT RV%TLCPRED 40 VYAIRE PFT RV%TLCLLN 27 VYAIRE PFT RV%TLCULN 54 VYAIRE PFT RV%TLCZSCORE 0.97 VYAIRE PFT RV%TLC%PRED 120.2 % VYAIRE PFT RV%TLCPREDAUTH Garcia Lung volumes GLI (2019)__ VYAIRE PFT Anatomical Region Laterality Modality PFT 02/22/2025 2:39 PM EDT Narrative 02/23/2025 12:58 PM EDT Pulmonary Function Testing Report Cole Feliz Jr. 79 y.o. underwent pulmonary function testing today at the [facility]. The patient underwent spirometry, lung volumes by body plethysmography, and diffusion capacity testing testing. All tests were appropriately administered via ATS/ERS criteria. Spirometry: Normal spirometry Lung Volumes: No restriction Diffusion Capacity: Diffusion capacity uncorrected for Hb is mildly reduced. A reduced DLCO with a normal VA may be seen in conditions such as pulmonary vascular diseases, anemia, early ILD, and emphysema with preserved lung volumes. Trend: There are no prior studies for comparison. Angel Parker MD PFT ORDERABLES Final Result documented in this encounter Visit Diagnoses Diagnosis Non-small cell cancer of left lung (CMS/HCC)- Primary CKD (chronic kidney disease) stage 2, GFR 60-89 ml/min Chronic kidney disease, Stage II (mild) Non-small cell cancer of left lung (CMS/HCC) Non-small cell cancer of left lung (CMS/HCC) documented in this encounter Additional Health Concerns Assessment Noted Time A fall risk assessment has been complete d for the patient 01/07/2025 1:22 PM EDT A Body Mass Index follow-up plan has been documented for the patient 02/05/2025 10:35 AM EDT documented as of this encounter Care Teams Mental Health Case Manager Relationship Specialty Start Date End Date Deep Keen APRN [address] [place] [address] PCP - General 03/06/23 02/21/25 Forrest Nickerson APRN [address] [place] [address] 03/06/23 documented as of this encounter
--- OUTSIDE RECORDS SUMMARY | 2025-02-22 14:29 | XMS_ITS | Encounter Summary ---
Author Organization [facility] Address [address] [place] [address] Care Team Providers Care Assistant Kitchen Manager Name Role Phone Forrest Nickerson NUMERICAL CONTROL MACHINE MACHINIST Unavailable Casa Phillips MD Primary Care Provider [phone] Encounter Details Date Type Department Care Team (Latest Contact Info) Description 02/22/2025 2:29 PM EDT - 02/22/2025 3:35 PM EDT Hospital Encounter PAV H Pulmonary Function Testing [address] [place] [address] Non-small cell cancer of left lung (CMS/HCC) Discharge Disposition: Home or Self Care Social History Tobacco Use Types Packs/Day Years [...] on file documented as of this encounter Medications at Time of Discharge aspirin 81 MG EC tablet Take 1 tablet by mouth daily. clopidogrel (Plavix) 75 MG tablet Take 1 tablet by mouth daily. metFORMIN (Glucophage) 1000 MG tablet Take 1 tablet by mouth 2 times a day. 12/07/2024 Albuterol Sulfate 108 (90 Base) MCG/ACT aerosol powder Inhale. 02/25/2025 carvedilol (Coreg) 3.125 MG tablet Take by mouth 2 (two) times a day with meals. 02/25/2025 doxazosin (Cardura) 4 MG tablet Take 4 mg by mouth every night. 02/25/2025 fluticasone-vilan terol (BREO ELIPTA) 100-25 MCG/INH inhaler Inhale. latanoprost (Xalatan) 0.005 % ophthalmic solution 1 drop every night. 02/25/2025 lisinopril 10 MG tablet Take 10 mg by mouth 1 (one) time each day. 02/25/2025 metFORMIN, MOD, (Glumetza) 500 MG 24 hr tablet Take 500 mg by mouth 1 (one) time each day with dinner. Do not crush, chew, or split. 02/25/2025 rosuvastatin (Crestor) 20 MG tablet Take 1 tablet by mouth nightly. 02/25/2025 documented as of this encounter Plan of Treatment Upcoming Encounters Date Type Department Care Team (Late st Contact Info) Description 04/20/2025 10:00 AM EDT Appointment PAV H Radiology [address] [place] [phone] 04/20/2025 10:30 AM EDT Office Visit Pav CC Head, Neck & Respiratory [address] [facility], [address]nd [place] [phone] Ирина Lopez MD [address] [facility] [address] [place] [phone] 07/06/2025 10:40 AM EDT Office Visit Pav CC Head, Neck & Respiratory [address] [facility], [address]nd [place] [phone] Nikolai Naranjo MD [address] [facility] [address] [place] [address] documented as of this encounter Procedures Procedure Name Priority Date/Time Associated Diagnosis Comments HC DIFFUSING CAPACITY - CARBON MONOXIDE DIFFUSING CAPACITY Routine 02/22/2025 3:10 PM EDT Non-small cell cancer of left lung (CMS/HCC) documented in this encounter Results * (ABNORMAL) Pulmonary function testing (02/22/2025 3:10 PM EDT) WMF2QLZ 3.10 2.66 - 4.70 L VYAIRE PFT FVC PRED 3.68 VYAIRE PFT FVC LLN 2.66 VYAIRE PFT FVCPREZSCORE -0.93 VYAIRE PFT FVCPRE%PRED 84 % % VYAIRE PFT FVC PREDAUT US_Quanjer GLI (2011) VYAIRE PFT FVC Z-SCORE -0.93 VYAIRE PFT FEV1 PRE 2.19 1.91 - 3.51 L VYAIRE PFT FEV1 PRED 2.74 VYAIRE PFT FEV1 LLN 1.91 VYAIRE PFT DBO8YUKSGBSEC -1.12 VYAIRE PFT FEV1_Pre%Pred 80 % % VYAIRE PFT FEV1 PREDAUT US_Quanjer GLI (2011) VYAIRE PFT FEV1 Z-SCORE -1.12 VYAIRE PFT FEV1/FVC PRE 70.45 60.56 - 88.37 % VYAIRE PFT SPK8LHYOZVC 75 VYAIRE PFT LYJ9OSIIWC 61 VYAIRE PFT DNC4EFZRGQTPQOOF -0.55 VYAIRE PFT QCU7ZKJJHL%PRED 94 % % VYAIRE PFT DCY4UJBVUYEI US_Quanjer GLI (2011) VYAIRE PFT CEW0NXXWWQRTI -1 VYAIRE PFT QVZ55-46% PRE 1.22 0.77 - 3.77 L/s VYAIRE PFT WDF49-12%_Pred 1.98 VYAIRE PFT LUL7863%LLN 0.77 VYAIRE PFT AQX6345%PREZSCORE -0.95 VYAIRE PFT VMS6636%PRE%PRED 61 % % VYAIRE PFT XUO2921%PREDAUT US_Quanjer GLI (2011) VYAIRE PFT PEF PRE 5.01 4.85 - 9.22 L/s VYAIRE PFT PEF PRED 7.04 VYAIRE PFT PEF LLN 4.85 VYAIRE PFT PEFPREZSCORE -1.52 VYAIRE PFT PEFPRE%PRED 71 % % VYAIRE PFT PEF PREDAUT NHANES III (1998) VYAIRE PFT UARJQYPEJSVSIKWM9VWJ 15.18(A) 16.80 - 30.86 ml/(min* mmHg) VYAIRE PFT DLCOSINGLEBREATH PRED 23.19 VYAIRE PFT DLCOSINGLEBREATH LLN 16.80 VYAIRE PFT DLCOSINGLEBREATH Z-SCORE -2.12 VYAIRE PFT DLCOSINGLEBREATH % PRED 65.4 % VYAIRE PFT DLCOSINGLEBREATH PREDPRES[facility] Stanovic TLCO GLI (2019) VYAIRE PFT DLCOSINGLEBREATH Z-SCORE -2.12 02/22/2025 3:48 PM EDT VYAIRE PFT EVNMAJOKNZQFAWUUU1QU E 15.18(A) 16.80 - 30.86 ml/(min* mmHg) VYAIRE PFT DLCOCSINGLEBREATH PRED 23.19 VYAIRE PFT DLCOCSINGLEBREATH LLN 16.80 VYAIRE PFT DLCOCSINGLEBREATH Z-SCORE -2.12 VYAIRE PFT DLCOCSINGLEBREATH % PRED 65.4 % VYAIRE PFT DLCOCSINGLEBREATH PREDMo[facility] TLCO GLI (2019) VYAIRE PFT NRSHDT3XOP 3.06 2.88 - 5.12 ml/(min* mmHg*L) VYAIRE PFT DLCOVAPRED 3.95 VYAIRE PFT DLCOVALLN 2.88 VYAIRE PFT DLCOVAZSCORE -1.37 VYAIRE PFT DLCOVA%PRED 77.4 % VYAIRE PFT DLCOVAPREDPRESBYTERIAN [facility] Stanojevic TLCO GLI (2019) VYAIRE PFT DLCOVAZSCORE -1.37 02/22/2025 3:48 PM EDT VYAIRE PFT OBMEQYYUN8YRH 3.06 2.88 - 5.12 ml/(min* mmHg*L) VYAIRE PFT DLCOC SB/VA PRED 3.95 VYAIRE PFT DLCOC SB/VA LLN 2.88 VYAIRE PFT DLCOC SB/VA Z-SCORE -1.37 VYAIRE PFT DLCOC SB/VA % PRED 77.4 % VYAIRE PFT DLCOC SB/VA PREDPRESBY[facility] Stanojevic TLCO GLI (2019) VYAIRE PFT DLCOC SB/VA Z-SCORE -1.37 02/22 3:48 PM EDT VYAIRE PFT DIOEEWKXZYNUSA8GAD 4.97 4.73 - 7.15 L VYAIRE PFT VASINGLEBREATH PRED 5.90 VYAIRE PFT VASINGLEBREATH LLN 4.73 VYAIRE PFT VASINGLEBREATH Z-SCORE -1.31 VYAIRE PFT VASINGLEBREATH % PRED 84.2 % VYAIRE PFT VASINGLEBREATH PREDNovant Health New Hanover Orthopedic Hospitalvic TLCO GLI (2019) VYAIRE PFT VASINGLEBREATH Z-SCORE -1.31 02/22/2025 3:48 PM EDT VYAIRE PFT WUQKBKXZCIHZQGO7HMF 3.12 2.66 - 4.70 L VYAIRE PFT IVCSINGLEBREATH PRED 3.68 VYAIRE PFT IVCSINGLEBREATH LLN 2.66 VYAIRE PFT IVCSINGLEBREATH Z-SCORE -0.89 VYAIRE PFT IVCSINGLEBREATH % PRED 85.0 % VYAIRE PFT IVCSINGLEBREATH PREDTONSIL [facility]OS[facility]ITAL_[facility]jer GLI (2011) VYAIRE PFT CLEMENTINE% VCMAX PRE 100.00 % VYAIRE PFT TLC SB PRE 5.11(A) 5.16 - 8.10 L VYAIRE PFT TLCSINGLEBREATH PRED 6.62 VYAIRE PFT TLCSINGLEBREATH LLN 5.16 VYAIRE PFT TLCSINGLEBREATH Z-SCORE -1.70 VYAIRE PFT TLCSINGLEBREATH % PRED 77.3 % VYAIRE PFT TLCSINGLEBREATH PREDSpringfield [facility] Lung volumes GLI (2019)__ VYAIRE PFT HB PRE 14.60 g(Hb)/dL VYAIRE PFT TIM6AOE 6.30 5.16 - 8.10 L VYAIRE PFT TLCPRED 6.62 VYAIRE PFT TLCLLN 5.16 VYAIRE PFT TLCULN 8.10 VYAIRE PFT TLCZSCORE -0.36 VYAIRE PFT TLC%PRED 95.1 % VYAIRE PFT TLCPREDSpringfield Hospital Medical Center Lung volumes GLI (2019)__ VYAIRE PFT VC0PRE 3.29 2.66 - 4.70 L VYAIRE PFT VCPRED 3.68 VYAIRE PFT VCLLN 2.66 VYAIRE PFT VCULN 4.70 VYAIRE PFT VCZSCORE -0.63 VYAIRE PFT VC%PRED 89.4 % VYAIRE PFT VCPREDTONSIL HOSPITAL_[facility]jer GLI (2011) VYAIRE PFT IC0PRE 1.78(A) 1.89 - 3.54 L VYAIRE PFT ICPRED 2.73 VYAIRE PFT ICLLN 1.89 VYAIRE PFT ICULN 3.54 VYAIRE PFT IC Z-SCORE -1.86 VYAIRE PFT IC%PRED 65.0 % VYAIRE PFT ICPREDSpringfield Hospital Medical Center Lung volumes GLI (2019)__ VYAIRE PFT VHEYTRFG9INZ 4.52 2.59 - 5.10 L VYAIRE PFT FRCPLETH PRED 3.70 VYAIRE PFT FRCPLETH LLN 2.59 VYAIRE PFT FRCPLETH ULN 5.10 VYAIRE PFT FRCPLETH Z-SCORE 1.01 VYAIRE PFT FRCPLETH % PRED 122.0 % VYAIRE PFT FRCPOhioHealth Mansfield Hospital Lung volumes GLI (2019)__ VYAIRE PFT DKU6VCW 1.51 0.31 - 2.34 L VYAIRE PFT ERVPRED 1.12 VYAIRE PFT ERVLLN 0.31 VYAIRE PFT ERVULN 2.34 VYAIRE PFT ERV Z-SCORE 0.59 VYAIRE PFT ERV%PRED 135.3 % VYAIRE PFT ERVPREDAUTH [facility] Lung volumes GLI (2019)__ VYAIRE PFT RV0PRE 3.01 1.43 - 3.98 L VYAIRE PFT RVPRED 2.58 VYAIRE PFT RVLLN 1.43 VYAIRE PFT RVULN 3.98 VYAIRE PFT RVZSCORE 0.54 VYAIRE PFT RV%PRED 116.9 % VYAIRE PFT RVPREDAUTH Garcia Lung volumes GLI (2019)__ VYAIRE PFT RV%JKK0VDL 47.82 26.68 - 53.53 % VYAIRE PFT [...] underwent pulmonary function testing today at the [facility]. The patient underwent spirometry, lung volumes [...] Diagnosis Non-small cell cancer of left lung (CMS/HCC) documented in this encounter Additional Health Concerns Assessment Noted Time A fall risk assessment has been complete d for the patient 01/07/2025 1:22 PM EDT A Body Mass Index follow-up plan has been documented for the patient 02/05/2025 10:35 AM EDT documented as of this encounter Care Teams Assistant Kitchen Manager Relationship Specialty Start Date End Date Casa Phillips MD [address] [place] [address] PCP - General 02/22/25 Forrest Nickerson APRN [address] [place] [address] 03/06/23 documented as of this encounter
--- OUTSIDE RECORDS SUMMARY | 2025-02-22 15:36 | XMS_ITS | Encounter Summary ---
Author Organization [facility] Address [address] [place] [address] Care Team Providers Care Engineer Sergeant Name Role Phone Forrest Nickerson CEMENTER MACHINE APPLICATOR Unavailable [phone] Casa Phillips MD Primary Care Provider [phone] Reason for Visit * Imaging (Urgent) - Closed Specialty Diagnoses / Procedures Referred By Sera kruse Referred To Contact Radiology Diagnoses Non-small cell cancer of left lung (CMS/HCC) Procedures PET/CT FDG Skull Base To Mid Thigh Angel Parker MD [address] [place] [address] Phone: tel: fax: Referral ID Status Reason Start Date Expiration Date Visits Re quested Visits Authorized [id number] Closed 02/05/2025 08/07/2026 2 2 Encounter Details Date Type Department Care Team (Latest Contact Info) Description 02/22/2025 3:36 PM EDT - 02/22/2025 11:59 PM EDT Hospital Encounter PAV H Radiology [address] [place] [address] Discharge Disposition: Home or Self Care Social [...] AM EDT Appointment PAV H Radiology [address] [place] [address] 04/20/2025 10:30 AM EDT Office Visit Pav CC Head, Neck & Respiratory [address] [facility], [address]nd [place] [address] Ирина Lopez MD [address] [facility] [address] [place] [address] 07/06/2025 10:40 AM EDT Office Visit Pav CC Head, Neck & Respiratory [address], [address] [place] [address] Nikolai Naranjo MD [address] [place] [phone] documented as of this encounter Procedures Procedure Name Priority Date/Time Associated Diagnosis Comments PET/CT FDG SKULL BASE TO MID THIGH Routine 02/22/2025 4:50 PM EDT Non-small cell cancer of left lung (CMS/HCC) documented in this encounter Results * PET/CT FDG Skull [...] applicable. Positioning: Arms raised. PET/CT scanner: Siemens C3 Metricsgraph 40 mCT. PET/CT acquisition: Sqawrw-no-xqg-thighs. Standardized uptake value (SUV): Corrected for body weight only. CT: Low-dose, kbb-bekfrj-znde, without intravenous contrast. TOTAL DLP (Dose Length [...] 1.8 (image 161 series 4 and 3). Blj-QWL-gwam subpleural 4 mm tiny perifissural nodule is [...] applicable. Positioning: Arms raised. PET/CT scanner: Siemens C3 Metricsgraph 40 mCT. PET/CT acquisition: Jfwzyf-vn-uxc-thighs. Standardized uptake value (SUV): Corrected for body weight only. CT: Low-dose, jtl-kwcdvm-hpym, without intravenous contrast. TOTAL DLP (Dose Length [...] SUV 1.8 (image 161series 4 and 3). Mwx-HQH-uirj subpleural 4 mm tiny perifissural nodule is [...] signing this report, I, the attending physician, misti I have personally reviewed the images/data for the aboveexamination(s) and agree with the final edited report. Drafted by DUY Jenkins on 02/23/2025 8:09 AM Final report signed by Yuan Briones MD on 02/23/2025 11:30 AM Angel Parker MD IMG NM PROCEDURES Final Result documented in this encounter Visit Diagnoses Not on filedocumented in this encounter Additional Health Concerns Assessment Noted Time A fall risk assessment has been complete d for the patient 01/07/2025 1:22 PM EDT A Body Mass Index follow-up plan has been documented for the patient 02/05/2025 10:35 AM EDT documented as of this encounter Care Teams Engineer Sergeant Relationship Specialty Start Date End Date Casa Phillips MD [address] [place] [address] PCP - General 02/22/25 Forrest Nickerson APRN [address] [place] [address] 03/06/23 documented as of this encounter
--- OUTSIDE RECORDS SUMMARY | 2025-02-22 15:36 | XMS_ITS | Encounter Summary ---
Author Organization [facility] Address [address] [id number] Care Team Providers Care Account Services Manager Name Role Phone Forrest Nickerson [employer] Unavailable [phone] Casa Phillips MD Primary Care Provider [phone] Reason for Referral * Imaging (Urgent) - Closed Specialty Diagnoses / Procedures Referred By Contac t Referred To Contact Radiology Diagnoses Non-small cell cancer of left lung (CMS/HCC) Procedures PET/CT FDG Skull Base To Mid Thigh Angel Parker MD [address] [place] [address] Phone: tel: fax: Referral ID Status Reason Start Date Expiration Date Visits Re quested Visits Authorized [id number] Closed 02/05/2025 08/07/2026 2 2 Reason for Visit * Imaging (Urgent) - Closed Specialty Diagnoses / Procedures Referred By Contchristi t Referred To Contact Radiology Diagnoses Non-small cell cancer of left lung (CMS/HCC) Procedures PET/CT FDG Skull Base To Mid Thigh Angel Parker MD [address] [place] [address] Phone: tel: fax: Referral ID Status Reason Start Date Expiration Date Visits Re quested Visits Authorized [id number] Closed 02/05/2025 08/07/2026 2 2 Encounter Details Date Type Department Care Team (Latest Contact Info) Description 02/22/2025 3:36 PM EDT - 02/22/2025 11:59 PM EDT Hospital Encounter [facility] [address] [place] [address] Non-small cell cancer of left lung (CMS/HCC) [...] AM EDT Appointment [facility] [address] [place] [address] 04/20/2025 10:30 AM EDT Office Visit [facility] [address] [facility], [address]nd [place] [phone] Ирина Lopez MD [address] [place] [id number] 07/06/2025 10:40 AM EDT Office Visit [facility] [address] [facility], [address] [place] [phone] Nikolai Naranjo MD [address] [facility] [address] [place] [address] documented as of this encounter Procedures Procedure Name Priority Date/Time Associated Diagnosis Comments PET/CT FDG SKULL BASE TO MID THIGH Routine 02/22/2025 4:50 PM EDT Non-small cell cancer of left lung (CMS/HCC) POCT GLUCOSE METER UNSOLICITED RESULTS Routine 02/22/2025 3:45 PM EDT documented in this encounter Results * PET/CT [...] scanner: Siemens Biograph 40 mCT. PET/CT acquisition: Oibyqf-ac-tqt-thighs. Standardized uptake value (SUV): Corrected for body weight only. CT: Low-dose, yhc-vvccei-dfei, without intravenous contrast. TOTAL DLP (Dose Length [...] 1.8 (image 161 series 4 and 3). Lsd-LKV-pxtm subpleural 4 mm tiny perifissural nodule is [...] scanner: Siemens Biograph 40 mCT. PET/CT acquisition: Vcpici-cn-usg-thighs. Standardized uptake value (SUV): Corrected for body weight only. CT: Low-dose, ech-dxofzc-cszk, without intravenous contrast. TOTAL DLP (Dose Length [...] SUV 1.8 (image 161series 4 and 3). Qmo-YHS-ajoz subpleural 4 mm tiny perifissural nodule is [...] on 02/23/2025 11:30 AM Angel Parker MD [facility] PROCEDURES Final Result * (ABNORMAL) POCT glucose meter (02/22/2025 3:45 PM EDT) POCT Glucose 101(H) 74 - 99 mg/dL 02/22/2025 3:47 PM EDT [facility] [employer] [facility] Comment:Accuracy of a glucos e result obtained from a capillary whole blood specimen relies upon adequate, non-compromised capillary blood flow. If the capillary glucose result is not consistent with the patient's clinical signs and symptoms, glucose testing should be repeated with either an arterial or venous sample on the glucometer or sent to the main labortory for testing. Comment 02/22/2025 3:47 PM EDT [facility] Imposer ID Elton Hernandez 02/22/2025 3:47 PM EDT [facility] Device ID [id number] 02/22/2025 3:47 PM EDT [facility] Specimen Type POC Capillary 02/22/2025 3:47 PM EDT [facility] Blood Capillary blood specimen / Unknown 02/22/2025 3:45 PM EDT 02/22/2025 3:47 PM EDT us Generic Provider Poct LAB POINT OF CARE TEST DOCKED DEVICE UNSOLICITED RESULTS Final Result Performing Organization Address City/State/[facility] Co de Phone Number [facility] [address] [place] [phone] documented in this encounter Visit Diagnoses Diagnosis Non-small cell cancer of left lung (CMS/HCC) documented in this encounter Administered Medications Inactive Administered Medications - up to 3 most recent administrations Medication Order MAR Action Action Date Dose Rate Site Fludeoxyglucose F 18 (FDG 18) radio-isotope injection 10 millicurie 10 millicurie, Intravenous, Once, 1 dose, On 02/22/25 at 1645, Routine, Imaging NM Protocol Orders Given 02/22/2025 3:49 PM EDT 13.19 millicuries Right Hand documented in this encounter Additional Health Concerns Assessment Noted Time A fall risk assessment has been complete d for the patient 01/07/2025 1:22 PM EDT A Body Mass Index follow-up plan has been documented for the patient 02/05/2025 10:35 AM EDT documented as of this encounter Care Teams Account Services Manager Relationship Specialty Start Date End Date Casa Phillips MD [address] [place] [address] PCP - General 02/22/25 Forrest Nickerson APRN [address] [place] [phone] 03/06/23 documented as of this encounter
--- OUTSIDE RECORDS SUMMARY | 2025-02-23 09:00 | XMS_ITS | Encounter Summary ---
Author Organization [facility] Address [address] [place] [address] Care Team Providers Care Production Gear Cutter Name Role Phone belindaForrest AOC PLANS INTELLIGENCE OFFICER CHIEF Unavailable [phone] Casa Phillips MD Primary Care Provider [phone] Reason for Referral * Imaging (Urgent) - Closed Specialty Diagnoses / Procedures Referred By Sera kruse Referred To Contact Radiology Diagnoses Non-small cell cancer of left lung (CMS/HCC) Procedures MR Head w and wo IV Contrast Nikolai Naranjo MD [address] [place] [address] Phone: tel: fax: Referral ID Status Reason Start Date Expiration Date Visits Re quested Visits Authorized [id number] Closed 02/23/2025 08/25/2026 1 1 Reason for Visit * Reason Comments New Patient * Consultation (Urgent) - Closed Specialty Diagnoses / Procedures Referred By Sera kruse Referred To Contact Medical Oncology / Hematology and Oncology Diagnoses Non-small cell cancer of left lung (CMS/HCC) Angel Parker MD [address] [place] [address] Phone: tel: fax: [facility] [address] [facility], [address]nd [place] [address] Phone: tel: fax: Referral ID Status Reason Start Date Expiration Date V isits Requested Visits Authorized [id number] Closed Specialty Services Required 02/05/2025 08/07/2026 1 1 Encounter Details Date Type Department Care Team (Late st Contact Info) Description 02/23/2025 9:00 AM EDT Office Visit [facility] [address] [facility], [address]nd [place] [phone] Nikolai Naranjo MD [address] [facility] [address] [place] [address] Non-small cell cancer of left lung (CMS/HCC) (Primary Dx); CKD (chronic kidney disease) stage 2, GFR 60-89 ml/min; Tobacco use disorder Social History Tobacco Use Types Packs/Day Years [...] on file documented as of this encounter Last Filed Vital Signs Vital Sign Reading Time Taken Comments Blood Pressure 137/77 02/23/2025 8:55 AM EDT Pulse 87 02/23/2025 8:50 AM EDT Temperature 36.6 C (97.9 F) 02/23/2025 8:50 AM EDT Respiratory Rate 18 02/23/2025 8:50 AM EDT Oxygen Saturation 98% 02/23/2025 8:50 AM EDT Inhaled Oxygen Concentration - - Weight 68.1 kg (150 lb 2.1 oz) 02/23/2025 8:50 A M EDT Height 177.8 cm (5' 10 ) 02/23/2025 8:50 AM EDT Body Mass Index 21.54 02/23/2025 8:50 AM EDT documented in this encounter Miscellaneous Notes * Progress Notes - Alycia Georges MD - 02/23/2025 9:00 AM EDT Images from the original note were not included. Medical Oncology Clinic Note Patient Name: Cole Feliz Jr. Date of : 1945 79 y.o. Referring Physician:Angel Parker MD [facility] [place] [address] Encounter Date: 02/23/2025 Chief Complaint: Chief Complaint Patient presents with New Patient History of present illness 79-year-old male with lung cancer risk factors plus significant history of COPD, tobacco abuse, coronary disease status post PCI who was diagnosed with a new likely early stage biopsy-proven lung NSCLC (adenocarcinoma) of HIEN. He was referred to Dr. Hui Shankar. Interval history: He presents today with family on 02/23/2025 after completed staging PETCT to guide further cancer management discussions. His oncology history is noted below. He reports feeling ok during visit and reports no active complaints other than ongoing chronic symptoms, mainly forgetfulness/imbalance (both new) the past 1 year. Entertaining idea to quit tobacco use again and open to counseling/explore options. Recently lost weight after started in diabetes injectable (25 lbs), but gaining weight back. Current Treatment Regimen: Surveillance versus adjuvant after planned surgical lung tumor resection (03/29/25) Oncology History: -history of lung nodules starting from 2020-small 8 mm nodule in the left upper lobe -October 04 PET scan showed SUV of 2.6 -Repeat CT April 2023, April 2024 - small increase in size -December of 2024 nodule is 14 x 11 mm -January 28 2025: s/p EBUS w/ FNA of HIEN nodule. Final pathology was c/w adenocarcinoma. -PET scan-02/22/25: HIEN nodule with no evidence of regional lymph node involvement or distant metastasis. HIEN apical nodule 2 cm x 1.5 cm (max SUV of 15.4) on image 153 series 4. This nodule is difficult to separate from adjacent left subclavian artery in the noncontrast CT. An additional lung nodule Just inferolateral to the dominant nodule (1.3 cm; SUV 1.8) on image 161 series 4 and 3. A Zig-OCI-qfvo subpleural 4 mm tiny perifissural nodule at the posterior- superior aspect of the right major fissure. (Image 176 series 4). Multiple small to borderline enlarged mediastinal and right hilar lymph nodes, some of which are mildly hypermetabolic and some are partially calcified, favor granulomatous inflammatory disease. NO petavid evidence suggestive of distant metastasis to viscera/bones or adrenals. Of note, some non-specific findings were noted in liver and H+N with noted few findings concerning for an underlyinglesion in H+N and Multiple variable sized hypo attenuating hepatic lesions (-5 to 20 Hounsfield units). -Thoracic Oncology evaluated 02/22/25- resectable; OR planned in March Pulmonary function test-diffusion capacity corrected 77.4. CARIS requested- MRI brain considered (new forgetfulness with imbalance-> cane since 2023)- Pathology Fine needle aspiration: [id number] Order: [id number] Collected 01/28/2025 14:07 Final Diagnosis A. 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 LUNG, LEFT UPPER LOBE, TRANSBRONCHIAL BIOPSY: - POSITIVE FOR MALIGNANCY, NON-SMALL CELL CARCINOMA CONSISTENT WITH ADENOCARCINOMA OF LUNG PRIMARY PD-L1 IHC 22C3 pharmDx* is performed and the results are as follows: - Tumor proportion score (TPS)*: 25% - Expression level: Positive for PD-L1 expression (TPS 1-49%) Past Medical, Surgical, Family and Social History: Medical History[1] Surgical History[2] Family History[3] --FH positive for cancers: both parents had lung cancer; both (mother ~age 58, father ~age74). Brother with liver cancer (heavy EtOH use). Sister with lung cancer (heavy tobacco smoker pjeo0ys hand exposure). Social History[4] --tobacco smoker since age 13: cigars then switched to cigarettes 1PPD. Quit from 3430-3736, but later relapsed in 2014 to present (3-4 cigarettes x day). Re-contemplating phase, open to explore NRT options. --2nd hand tobacco smoking exposure from both parents during early to young adult age --occasional alcohol. No illicit drug use. Lives at home alone with daughter in [place] [id number]. Allergies: Cetirizine Medications: Current Medications[5] Review of Systems: A comprehensive 14 point review of systems was performed, noted to be negative with the pertinent positives documented in the HPI section of this note. Vital Signs: Visit Vitals BP 137/77 (BP Location: Right arm) Pulse 87 Temp 36.6 ??C (97.9 ??F) (Oral) Resp 18 Physical Examination: GENERAL: no acute distress. SKIN: No rashes EYES: no pallor or icterus ENT: intact HEAD/NECK: neck supple RESPIRATORY: non-labored respirations CARDIOVASCULAR: no peripheral edema GASTROINTESTINAL: soft, non-tender, non-distended MUSCULOSKELETAL: No muscle wasting NEUROLOGICAL: alert and oriented x3, no focal deficits PSYCHOLOGICAL: Normal mood. Labs, Imaging, Pathology: No results found for: WBC , RBC , HGB , HCT , MCV , MCHC , RDW , PLT , MPV , SEG , EOS No results found for: BUN , CL , NA , K , CA , TP , AST , ALK , BICARB , ALT , GLU Bloodpressure 137/77, pulse 87, temperature 36.6 ??C (97.9 ??F), temperature source Oral, resp. rate 18,height 1.778 m (5' 10 ), weight 68.1 kg (150 lb 2.1 oz), SpO2 98%. No image results found. I visualized the recent imaging and discussed the current radiology findings with the patient in detail and gave copies of the reports to the patient and answered all questions. 02/22/25: PETCT-- initial staging evaluation: CLINICAL INDICATION: 79 year-old male recently diagnosed [...] scanner: Siemens Biograph 40 mCT. PET/CT acquisition: Hhwvif-mq-ybm-thighs. Standardized uptake value (SUV): Corrected for body weight only. CT: Low-dose, xsm-xmbxig-jdsy, without intravenous contrast. TOTAL DLP (Dose Length [...] most prominent in the sphenoid sinus left lateralexpansion. Partial opacification mucosal thickening mastoid air cells [...] 1.8 (image 161 series 4 and 3). Ujf-JJV-jxtf subpleural 4 mm tiny perifissural nodule is noted at the posterior- superior aspect of the right major fissure. (Image [...] 1.Left upper lobe anterior subpleural intensely hypermetabolic nodule consistent with biopsy-provenadenocarcinoma. 2. Just inferolateral to the dominant nodule is an additional mildly hypermetabolic solid nodule, difference in metabolic profile might suggest different biology. 3.Asymmetric photopenic vasogenic edema within the left frontal region with no definite focal hypermetabolic activity, yet concerning for an underlying lesion. Further assessment with MRI brain is recommended. 4.Otherwise, no evidence of metabolically active metastatic disease to visceral organs or osseous structures. CRITICAL RESULT: No. COMMUNICATION: Per this written report. Performance Status: ECOG 1/2 Assessment and Plan: Cole Feliz Jr. is a 79 y.o. 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 # stage IA adenocarcinoma of the lung Cancer management : Cole Feliz Jr. is diagnosed with stage IA2 adenocarcinoma of the lung This represents a life threatening illness for which urgent cancer treatment is indicated. - Treatment goal-curative - Next Gen Sequencing: Caris pending; requested today on 02/23/25 - Regimen: Surgery followed by surveillance pending final pathological stage - Thoracic Oncology evaluated 02/22/25- resectable (clinical stage I lung cancer); OR planned for L VATS upper lobectomy and MLND on 03/29/25.. -- Clinically asx disease. His initial PETCT-02/22/25: HIEN nodule with no evidence of regional lymphnode involvement or distant metastasis. His daughter reported subtle changes the past year raising the question for possible brain disease involvement, but pt is otherwise asymptomatic from petavid lung and reported liver findings on his initial PETCT. - No labs today or prior in EMR to review his current liver and renal function as well as bone marrow function in relationship to this patient's ability to tolerate systemic cancer treatment (and adjusted dosing and schedule based on their individual liver, renal and bone marrow function. Will needto collect baseline labs: CMP, CBCD, TSH if indicated systemic therapy adjuvantly post resection. if surgical margins are positive post resection, and he is found non-eligible for re-resection, then consider referral to Radiation Oncology next after discussing with pt for adjuvant SBRT. If surgical margins are negative, then surveillance can be planned with close observation and ukvcqM3R initially/supportive. If the final pathological stage is not consistent with his initial clinical stage (1A2) or findingsresult in up-staged lung cancer following review/discussion in lung MTB to consider best approach and next step in future POC after assessing for potential drugable targets including Exon 19 deletionor L858R EGFR mutations then. If he is eligible future candidate for Osimertinib in future, detailed discussions with him/family at the time of consideration of adjuvant Osimertinib for 3 years warranted (not discussed today). adjuvant Osimertinib shown to improve DFS and OS in EGFR exon 19 or exon21 mutant NSCLC patients with stage II-III; the study had limitations including the majority of patients not receiving Osimertinib at the time of disease recurrence and inadequate staging; adjuvant Osimertinib is FDA approved in Stage IB but OSbenefit is smaller in this subset. and HR crosses 1 stressing the importance of discussing both adjuvant Osimertinib and surveillance with the patient. - RTC on 04/06 to discuss MRI results # Imbalance with now use of cane x1 year # Word finding difficulty, forgetfulness x1 year ISO new lung cancer, these symptoms appear chronic but persistently worsening per daughter present.Pt is grossly non-focal on exam but using cane. No prior head imaging. Suspicion for brain mets nothigh ISO early stage lung cancer, however further evaluation considered with MRI brain W/WO and discussed with pt/family present- pt is interested to proceed with MRI to further assess sx. --consider PT evaluation at home or defer to PCP locally. # Tobacco Cessation- discuss NRT next visit or defer to PCP. Consider TTOP enrollment at , likelyeligible. # Nutrition- contract officer consult next visit. Chronic conditions: HR-CAD s/p PCI on DAPT (last PCI in 2020)- asymptomatic. Prostatomegaly s/p prostate surgery x3 by local urology provider (last in 2023; [facility]). T2DM with recent weight loss (25 lbs in 3M)- uncomplicated. Possible claudication based on history- pt does not have formal dx of PAD, has never had KAMRYN or vascular testing. SDOH: transportation, health literacy, financial. Patient discussed with attending physician Dr Hui Shankar MD who agreed with formulation of the plan as described above. Alycia Parker MD, MSc Hematology and Oncology Fellow PGY-[address] [facility] [address] [address] Pager: [phone] Electronically Signed by: Alycia Parker MD - 02/23/2025 - 4:17 PM [1] Past Medical History: Diagnosis Date Arthritis CAD (coronary artery disease) Diabetes (CMS/HCC) Hepatitis High blood pressure High cholesterol Hyperlipidemia Hypertension Type 2 diabetes mellitus [2] Past Surgical History: Procedure Laterality Date CARDIAC CATHETERIZATION COLONOSCOPY CORONARY STENT PLACEMENT TENDON REPAIR [3] Family History Problem Relation Name Age of Onset Cancer Mother Lung cancer Mother Cancer Father Lung cancer Father Diabetes Other Anesthesia problems Neg Hx Malig Hyperthermia Neg Hx [4] Social History Tobacco Use Smoking status: Every Day Types: Cigars Start date: 1956 Smokeless tobacco: Never Vaping Use Vaping status: Never Used Substance Use Topics Alcohol use: Yes Alcohol/week: 14.0 standard drinks of alcohol Types: 14 Standard drinks or equivalent per week Comment: 2 oz crown royal daily Drug use: Never [5] Current Outpatient Medications: aspirin 81 MG EC tablet, Take 1 tablet by mouth daily., Disp: , Rfl: clopidogrel (Plavix) 75 MG tablet, Take by mouth in the morning., Disp: , Rfl: metFORMIN (Glucophage) 1000 MG tablet, Take 1 tablet by mouth 2 (two) times a day., Disp: , Rfl: Albuterol Sulfate 108 (90 Base) MCG/ACT aerosol powder , Inhale. (Patient not taking: Reported on 02/23/2025), Disp: , Rfl: carvedilol (Coreg) 3.125 MG tablet, Take by mouth 2 (two) times a day with meals. (Patient not taking: Reported on 02/23/2025), Disp: , Rfl: doxazosin (Cardura) 4 MG tablet, Take 4 mg by mouth every night. (Patient not taking: Reported on 02/23/2025), Disp: , Rfl: fluticasone-vilanterol (BREO ELIPTA) 100-25 MCG/INH inhaler, Inhale. (Patient not taking: Reported on 02/23/2025), Disp: , Rfl: latanoprost (Xalatan) 0.005 % ophthalmic solution, 1 drop every night. (Patient not taking: Reported on 02/23/2025), Disp: , Rfl: lisinopril 10 MG tablet, Take 10 mg by mouth 1 (one) time each day. (Patient not taking: Reported on 02/23/2025), Disp: , Rfl: metFORMIN, MOD, (Glumetza) 500 MG 24 hr tablet, Take 500 mg by mouth 1 (one) time each day with dinner. Do not crush, chew, or split. (Patient not taking: Reported on 02/23/2025), Disp: , Rfl: rosuvastatin (Crestor) 20 MG tablet, Take 1 tablet by mouth nightly. (Patient not taking: Reported on 02/23/2025), Disp: , Rfl: Cosigned by Nikolai Naranjo MD at 02/24/2025 9:32 PM EDT Associated attestation - Nikolai Naranjo MD - 02/24/2025 9:32 PM EDT I saw and evaluated the patient with the resident/fellow. I discussed the case with the resident/fellow and agree with the findings and plan as documented. documented in this encounter Plan of Treatment Upcoming Encounters Date Type Department Care Team (Late st Contact Info) Description 04/20/2025 10:00 AM EDT Appointment [facility] Radiology [address] [place] [phone] 04/20/2025 10:30 AM EDT Office Visit [facility] [address] [facility], [address] [place] [phone] Ирина Lopez MD [address] [place] [phone] 07/06/2025 10:40 AM EDT Office Visit [facility] [address] [facility], [address] [place] [phone] Nikolai Naranjo MD [address] [facility] [address] [place] [address] documented as of this encounter Procedures Procedure Name Priority Date/Time Associated Diagnosis Comments KAELA PELAYO TUMOR SEEK HYBRID + IHCS AND OTHER TESTS BY TUMOR TYPE Routine 01/28/2025 3:38 PM EDT Non-small cell cancer of left lung (CMS/HCC) documented in this encounter Results * MR Head w and wo IV Contrast (02/24/2025 1:26 PM EDT) Anatomical Region Laterality Modality Head Magnetic Resonan ce Impressions 03/01/2025 11:32 AM EDT 1. No evidence of intracranial metastasis. 2. 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 There is sequela of prior insult in the left paramedian frontal lobe. CRITICAL RESULT: No. COMMUNICATION: Per this written report. Drafted by Lenny Stanton MD on 03/01/2025 11:16 AM Final report signed by Lenny Stanton MD on 03/01/2025 11:32 AM Narrative 03/01/2025 11:32 AM EDT CLINICAL INDICATION: Metastatic disease evaluation TECHNIQUE: Multiplanar multiecho sequences were performed through the brain utilizing T1 and T2 weighting, as well as either axial susceptibility weighted or gradient echo sequences, and axial diffusion weighted images. A coronal post-contrast 1mm thick T1-weighted 3D MP RAGE sequence was performed and multiplanar reformatted images were created. Imaging was performed with and without contrast administration: 6.8 mL of Gadavist. COMPARISON: None. FINDINGS: Diagnostic Quality: Adequate. Global parenchymal volume loss with prominence of sulci and ventricles. Patchy foci of T2/FLAIR hyperintense signal in the bilateral cerebral white matter, likely representing sequela of nonacute small vessel ischemic disease, overall moderate in extent. Area of serpiginous enhancement in the left cingulate gyrus with hemosiderin staining measuring 14 x 11 mm (series 17, image 127), most compatible with an arteriovenous malformation nidus. The feeding artery is the left anterior cerebral artery (series 17, image 99). The venous drainage appears to be through cortical vein into the superior sagittal sinus (series 17, image 136). There is an area of encephalomalacia, gliosis and hemosiderin staining in the left paramedian frontal lobe which may represent sequela of prior insult. Defect in the anterior body of corpus callosum (series 5, image 10-12) which may be related to prior insult or surgery. There is no abnormal parenchymal restricted diffusion. Vascular Flow Voids: Normal. Paranasal Sinuses and Mastoid Air Cells: Extensive mucosal thickening in the paranasal sinuses. Bilateral mastoid effusions. Orbits: No definite masses within the limitations of the study. Bilateral lens replacement. Extracranial Findings: None. Craniocervical Junction and Skull Base: No tonsillar ectopia or mass is present. Procedure Note Lenny Stanton MD - 03/01/2025 CLINICAL INDICATION: Metastatic disease evaluation TECHNIQUE: Multiplanar multiecho sequences were performed through the brain utilizingT1 and T2 weighting, as well as either axial susceptibility weighted orgradient echo sequences, and axial diffusion weighted images. A coronalpost-contrast 1mm thick T1- weighted 3D MP RAGE sequence was performed andmultiplanar reformatted images were created. Imaging was performed withand without contrast administration: 6.8 mL of Gadavist. COMPARISON: None. FINDINGS: Diagnostic Quality: Adequate. Global parenchymal volume loss with prominence of sulci and ventricles.Patchy foci of T2/FLAIR hyperintense signal in the bilateral cerebralwhite matter, likely representing sequela of nonacute small vesselischemic disease, overall moderate in extent. Area of serpiginous enhancement in the left cingulate gyrus withhemosiderin staining measuring 14 x 11 mm (series 17, image 127), mostcompatible with an arteriovenous malformation nidus. The feeding artery isthe left anterior cerebral artery (series 17, image 99). The venousdrainage appears to be through cortical vein into the superior sagittalsinus (series 17, image 136). There is an area of encephalomalacia,gliosis and hemosiderin staining in the left paramedian frontal lobe whichmay represent sequela of prior insult. Defect in the anterior body ofcorpus callosum (series 5, image 10-12) which may be related to priorinsult or surgery. There is no abnormal parenchymal restricted diffusion. Vascular Flow Voids: Normal. Paranasal Sinuses and Mastoid Air Cells: Extensive mucosal thickening inthe paranasal sinuses. Bilateral mastoid effusions. Orbits: No definite masses within the limitations of the study. Bilaterallens replacement. Extracranial Findings: None. Craniocervical Junction and Skull Base: No tonsillar ectopia or mass ispresent. IMPRESSION: 1.No evidence of intracranial metastasis. 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 There issequela of prior insult in the left paramedian frontal lobe. CRITICAL RESULT: No. COMMUNICATION: Per this written report. Drafted by Lenny Stanton MD on 03/01/2025 11:16 AM Final report signed by Lenny Stanton MD on 03/01/2025 11:32 AM Nioklai Shankar MD IMG MRI PROCEDURES Esthela l Result * (ABNORMAL) Caris [place] Cancer Seek Hybrid??? + IHCs and Other Tests by Tumor Type (01/28/2025 3:38 PM EDT) CARIS PD-L1 (22C3) Positive 2024 12:05 PM EDT [employer] CARIS PD-L1 FDA(SP142) Negative 03/09/2025 12:05 PM EDT [employer] CARIS Genomic Loss of Heterozygosity - [place] Low 6% 03/09/2025 12:05 PM EDT [employer] CARIS Microsatellite Instability - [place] Stable 03/09/2025 12:05 PM EDT [employer] CARIS Tumor Mutational Shirley - [place] Low 3 per Mb 03/09/2025 12:05 PM EDT [employer] CARIS PD-L1 FDA (28-8) Positive 03/09/2025 12:05 PM EDT [facility] [employer] CARIS PD-L1 (SP263) Negative 03/09/2025 12:05 PM EDT [facility] [employer] CARIS Her2/Masha Negative 03/09/2025 12:05 PM EDT [facility] [employer] CARIS ALK Negative 03/09/2025 12:05 PM EDT [employer] CARIS HLA-A - [place] A*01:01,A*24 :02 03/09/2025 12:05 PM EDT [employer] CARIS HLA-B - [place] -,B*07:02 03/09/2025 12:05 PM EDT [employer] CARIS HLA-C - [place] -,C*07:02 03/09/2025 12:05 PM EDT [facility] Non-blood Collection / Unknown 01/28/2025 3:38 PM EDT 02/23/2025 3:38 PM EDT Narrative This result has genomic variants that were not included in this document. Nikolai Shankar MD LAB MOL DX NO SOURCE Fi nal Result [facility] [address] [address], documented in this encounter Visit Diagnoses Diagnosis Non-small cell cancer of left lung (CMS/HCC)- Primary CKD (chronic kidney disease) stage 2, GFR 60-89 ml/min Chronic kidney disease, Stage II (mild) Tobacco use disorder Non-small cell cancer of left lung (CMS/HCC) documented in this encounter Additional Health Concerns Assessment Noted Time A fall risk assessment has been complete d for the patient 02/23/2025 8:48 AM EDT A Body Mass Index follow-up plan has been documented for the patient 02/25/2025 5:11 PM EDT documented as of this encounter Care Teams Production Gear Cutter Relationship Specialty Start Date End Date Casa Phillips MD [address] [place] [id number] PCP - General 02/22/25 Forrest Nickerson APRN [address] [place] [address] 03/06/23 documented as of this encounter
--- OUTSIDE RECORDS SUMMARY | 2025-02-23 10:30 | XMS_ITS | Encounter Summary ---
Author Organization [facility] Address [address] [place] [address] Care Team Providers Care Propeller Tester Name Role Phone Forrest Nickerson EXECUTIVE SALES ASSISTANT Unavailable Casa Phillips MD Primary Care Provider [phone] Reason for Visit * Reason Comments New Patient * Consultation (Urgent) - Closed Specialty Diagnoses / Procedures Referred By Sera kruse Referred To Contact Cardiothoracic Surgery Diagnoses Non-small cell cancer of left lung (CMS/HCC) Angel Parker MD [address] [place] [address] Phone: tel: fax: Cardiothoracic Surgery [address] [place] [address] Phone: tel: Referral ID Status Reason Start Date Expiration Date V isits Requested Visits Authorized [id number] Closed Specialty Services Required 02/05/2025 08/07/2026 1 1 Encounter Details Date Type Department Care Team (Late st Contact Info) Description 02/23/2025 10:30 AM EDT Office Visit Pav CC Head, Neck & Respiratory [address] [facility], [address]nd [place] [address] Ирина Lopez MD [address] [facility] [address] [place] [address] Non-small cell cancer of left lung (CMS/HCC) Social History Tobacco Use Types Packs/Day Years [...] 02/23/2025 8:55 AM EDT Pulse 87 02/23/2025 8:53 AM EDT Temperature 36.6 C (97.9 F) 02/23/2025 8:53 AM EDT Respiratory Rate 18 02/23/2025 8:53 AM EDT Oxygen Saturation 98% 02/23/2025 8:53 AM EDT Inhaled Oxygen Concentration - - Weight 68.1 kg (150 lb 2.1 oz) 02/23/2025 8:53 A M EDT Height 177.8 cm (5' 10 ) 02/23/2025 8:53 AM EDT Body Mass Index 21.54 02/23/2025 8:53 AM EDT documented in this encounter Miscellaneous Notes * Progress Notes - Danuta Godinez PA - 02/23/2025 10:30 AM EDT Images from the original note were not included. [facility] [place] [place] [facility] Department of Surgery Section of Thoracic Surgery History & Physical Note Consulting MD: Dr. Angel Parker Reason for Consultation/Chief complaint: left upper lobe adenocarcinoma History of Present Illness: Cole Feliz Jr. is a 79 y.o. male w/ PMH CAD s/p PCI (on Plavix and ASA), tobacco abuse, probable COPD, DM2, and HTN who presents to the outpatient clinic for biopsy-proven left upper lobe adenocarcinoma. His nodule history dates back to 2020 when an 8mm nodule was noted in the left upper lobe. It was followed over time and there was a PET performed in September 2022 with SUV of 2.6. It was followed with surveillance CT scans and it gradually grew to 14 x 11mm in December of 2024. He underwent EBUS w/ FNA of HIEN nodule on 01/28/[address] Parker and final path was consistent with adenocarcinoma. He had a PET scan yesterday that demonstrates hypermetabolic activity of the HIEN nodule with no evidence of regional lymph node involvement or distant metastasis. He isasymptomatic and denies any sob, cough, hemoptysis, fevers, weight loss. He ambulates with a cane and will only have sob w/ exertion if walking uphill or climbing stairs. Past Medical History: Past Medical History: Diagnosis Date Arthritis CAD (coronary artery disease) Diabetes (CMS/HCC) Hepatitis High blood pressure High cholesterol Hyperlipidemia Hypertension Type 2 diabetes mellitus Past Surgical History: Past Surgical History: Procedure Laterality Date CARDIAC CATHETERIZATION COLONOSCOPY CORONARY STENT PLACEMENT TENDON REPAIR Social History: Tobacco - actively smoking cigars Alcohol - none Drugs - none Family Medical History: family history includes Cancer in his father and mother; Diabetes in an other family member; Lung cancer in his father and mother. Allergies: Allergies Allergen Reactions Cetirizine Other - please document in the comment field and Unknown - Patient states they do not know rxn details cetirizine Home Medications: Current Outpatient Medications: Albuterol Sulfate 108 (90 Base) MCG/ACT aerosol powder , Inhale. (Patient not taking: Reported on 02/23/2025), Disp: , Rfl: aspirin 81 MG EC tablet, Take 1 tablet by mouth daily., Disp: , Rfl: carvedilol (Coreg) 3.125 MG tablet, Take by mouth 2 (two) times a day with meals. (Patient not taking: Reported on 02/23/2025), Disp: , Rfl: clopidogrel (Plavix) 75 MG tablet, Take by mouth in the morning., Disp: , Rfl: doxazosin (Cardura) 4 MG [...] taking: Reported on 02/23/2025), Disp: , Rfl: metFORMIN (Glucophage) 1000 MG tablet, Take 1 tablet by mouth 2 (two) times a day., Disp: , Rfl: metFORMIN, MOD, (Glumetza) 500 MG 24 hr tablet, Take 500 mg by mouth 1 (one) time each day with dinner. Do not crush, chew, or split. (Patient not taking: Reported on 02/23/2025), Disp: , Rfl: rosuvastatin (Crestor) 20 MG tablet, Take 1 tablet by mouth nightly. (Patient not taking: Reported on 02/23/2025), Disp: , Rfl: No current facility-administered medications for this visit. ROS: General: no fevers or chills, no heat or cold intolerance, no subjective weight loss HEENT: no changes in vision, no sore throat, no changes in hearing, no tinnitus, no nasal drainage CV: no chest pain, no palpitations, no lightheadedness, no PND, no orthopnea, no LE swelling, no claudication Pulm: no shortness of breath, no cough, no hemoptysis GI: no nausea, no vomiting, no abdominal pain, no constipation, no diarrhea, no melena, no hematochezia, no dysphagia, no heartburn Skin: no rash Neuro: no numbness, no tingling, no headache, no difficulties with speech, no gait disturbance Heme: no easy bruising, no bleeding from the gums Endo: No polyuria or polydypsia Psych: no depression or anxiety Physical exam: Visit Vitals BP 137/77 (BP Location: Right arm) Pulse 87 Temp 36.6 ??C (97.9 ??F) (Oral) Ht 1.778 m (5' 10 ) Wt 68.1 kg (150 lb 2.1 oz) SpO2 98% BMI 21.54 kg/m?? General: alert and oriented, appropriate Lungs: CTA B, no wheezes or rhonchi Heart: RRR, no murmurs Abdomen: soft NT/ND, normal bowel sounds Lymph nodes: no palpable supraclavicular or cervical adenopathy Extremities: no peripheral edema Skin: no rash, no cyanosis and warm to touch Psychiatric: oriented to person/place/time and normal mood/affect Imaging: I independently visualized the imaging which includes: CT Chest 01/28/25: left upper lobe subpleural nodule measuring 14mm (previously 13mm 12/18/24); [id number] pleural-based RLL nodule and 3mm right lower lobe nodule. CT Chest 12/18/24: 13mm subpleural nodule in left upper lobe. 5mm pleural based RLL nodule and 3mm RUL nodule. PET scan 02/22/25: hypermetabolic uptake of biopsy-proven left upper lobe adenocarcinoma. No evidence of regional lymph node involvement or distant metastasis. Additional testing: EBUS 01/28/25: Final Diagnosis A. 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 LUNG, LEFT UPPER LOBE, TRANSBRONCHIAL BIOPSY: - POSITIVE FOR MALIGNANCY, NON-SMALL CELL CARCINOMA CONSISTENT WITH ADENOCARCINOMA OF LUNG PRIMARY,SEE COMMENT PFTs 02/22/25: FEV1: 80% DLCO: 65% Assessment and Plan: Cole Feliz Jr. is a 79 y.o. male w/ PMH CAD s/p PCI (on Plavix and ASA), tobacco abuse, probable COPD, who presents to the outpatient clinic for biopsy- proven left upper lobe adenocarcinoma. Nodule was first noted in 2020, measuring 8mm, and has been monitored with surveillance imaging. It demonstrated interval growth over several years and most recent CT Chest 12/2024 measured at 14mm. He underwent EBUS w/ final path consistent with adenocarcinoma. The nodule was PET avid and there was no evidence of regional lymph node involvement or distant metastasis. Based on above imaging, this is a clinical stage I lung cancer and we have recommended surgical resection. PFTs demonstrate satisfactory baseline lung function. Discussed risks, benefits, and alternatives and patient wishes to proceed with L VATS upper lobectomy and MLND. Will plan for OR on 03/29/25. Consent to be performed morning of procedure. SWATI Doherty 02/23/25 10:16 AM Cosigned by Ирина Lopez MD at 02/25/2025 5:10 PM EDT Associated attestation - Ирина Lopez MD - 02/25/2025 5:10 PM EDT I attest to being involved in more than half the total time in patient care. Mr Feilz has a newly biopsy proven clinical stage I lung cancer in the left upper lobe. I have offered the patient leftVATS upper lobectomy with mediastinal lymph node dissection. We discussed the risks and benefits ofsurgery in detail including the risks of bleeding, infection, injury to surrounding structures, prolonged air leak, conversion to thoracotomy, stroke, SD, and . His functional status and PFT's place him at average risk for pulmonary complications. The patient had the opportunity to ask and have answered any questions and agrees to proceed. Surgery is scheduled for 03/29/2025. documented in this encounter Plan of Treatment Upcoming Encounters Date Type Department Care Team (Late st Contact Info) Description 04/20/2025 10:00 AM EDT Appointment [facility] Radiology [address] [place] [phone] 04/20/2025 10:30 AM EDT Office Visit Pav CC Head, Neck & Respiratory [address] [facility], [address] [place] [address] Ирина Lopez MD [address] [facility] [address] [place] [address] 07/06/2025 10:40 AM EDT Office Visit Pav CC Head, Neck & Respiratory [address] [facility] [place] [address] Nikolai Naranjo MD [address] [facility] [address] [place] [address] documented as of this encounter Visit Diagnoses Diagnosis Non-small cell cancer of left lung (CMS/HCC) documented in this encounter Additional Health Concerns Assessment Noted Time A fall risk assessment has been complete d for the patient 02/23/2025 8:48 AM EDT A Body Mass Index follow-up plan has been documented for the patient 02/25/2025 5:11 PM EDT documented as of this encounter Care Teams Propeller Tester Relationship Specialty Start Date End Date Casa Phillips MD [address] [place] [address] PCP - General 02/22/25 Forrest Nickerson APRN [address] [place] [address] 03/06/23 documented as of this encounter
--- OUTSIDE RECORDS SUMMARY | 2025-02-24 12:44 | XMS_ITS | Encounter Summary ---
Author Organization [facility] Address [address] [place] [address] Care Team Providers Care Snuff Blender Name Role Phone Forrest Nickerson GREEN CHAIN OPERATOR Unavailable [phone] Casa Phillips MD Primary Care Provider [phone] Reason for Referral * Imaging (Urgent) - Closed Specialty Diagnoses / Procedures Referred By Sera kruse Referred To Contact Radiology Diagnoses Non-small cell cancer of left lung (CMS/HCC) Procedures MR Head w and wo IV Contrast Nikolai Naranjo MD [address] [address] Phone: tel: fax: Referral ID Status Reason Start Date Expiration Date Visits Re quested Visits Authorized [id number] Closed 02/23/2025 08/25/2026 1 1 Reason for Visit * Imaging (Urgent) - Closed Specialty Diagnoses / Procedures Referred By Sera kruse Referred To Contact Radiology Diagnoses Non-small cell cancer of left lung (CMS/HCC) Procedures MR Head w and wo IV Contrast Nikolai Naranjo MD [address] [address] Phone: tel: fax: Referral ID Status Reason Start Date Expiration Date Visits Re quested Visits Authorized [id number] Closed 02/23/2025 08/25/2026 1 1 Encounter Details Date Type Department Care Team (Latest Contact Info) Description 02/24/2025 12:44 PM EDT - 02/24/2025 11:59 PM EDT Hospital Encounter [facility] Radiology [address] [place] [address] Non-small cell cancer of left lung (CMS/HCC) [...] this encounter Medications at Time of Discharge acetaminophen (Tylenol) 500 MG tablet Take 2 tablets by mouth every 6 hours for 14 days. 112 tablet 04/04/2025 04/18/2025 aspirin 81 MG EC tablet Take 1 tablet by mouth daily. clopidogrel (Plavix) 75 MG tablet Take 1 tablet by mouth daily. metFORMIN (Glucophage) 1000 MG tablet Take 1 tablet by mouth 2 times a day. 12/07/2024 methocarbamol (Robaxin) 500 MG tablet Take 1 tablet by mouth every 6 hours for 14 days. 56 tablet 04/04/2025 04/18/2025 oxyCODONE (Roxicodone) 5 MG immediate release tablet Take 1 tablet by mouth every 6 hours as needed for moderate pain for up to 15 doses. 15 tablet 04/04/2025 rosuvastatin (Crestor) 20 MG tablet Take 1 tablet by mouth daily. tamsulosin (Flomax) 0.4 MG 24 hr capsule Take 1 capsule by mouth daily. 30 capsule 04/04/2025 05/04/2025 polyethylene glycol (Miralax) 17 g packet Take 17 g by mouth daily. 30 packet 04/04/2025 senna-docusate (Betty-Colace) 8.6-50 MG tablet Take 2 tablets by mouth 2 times a day for 14 days. 56 tablet 04/04/2025 04/18/2025 Albuterol Sulfate 108 (90 Base) MCG/ACT aerosol powder Inhale. 02/25/2025 carvedilol (Coreg) 3.125 MG tablet Take by mouth 2 (two) times a day with meals. 02/25/2025 doxazosin (Cardura) 4 MG tablet Take 4 mg by mouth every night. 02/25/2025 fluticasone-tammi nterol (BREO ELIPTA) 100-25 MCG/INH inhaler Inhale. latanoprost [...] Upcoming Encounters Date Type Department Care Team ([facility] st Contact Info) Description 04/20/2025 10:00 AM EDT Appointment [facility] Radiology [address] [place] [phone] 04/20/2025 10:30 AM EDT Office Visit Pav CC Head, Neck & Respiratory [address] [facility] [place] [address] Ирина Lopez MD [address] [facility] [address] [place] [phone] 07/06/2025 10:40 AM EDT Office Visit Pav CC Head, Neck & Respiratory [address] [facility] [place] [phone] Nikolai Naranjo MD [address] [place] [address] [place] [address] documented as of this encounter Procedures Procedure Name Priority Date/Time Associated Diagnosis Comments MR HEAD W AND WO IV CONTRAST Routine 02/24/2025 1:26 PM EDT Non-small cell cancer of left [...] Lenny Stanton MD on 03/01/2025 11:32 AM Nikolai Shankar MD IMG MRI PROCEDURES Esthela l Result documented in this encounter Visit Diagnoses Diagnosis Non-small cell cancer of left lung (CMS/HCC) documented in this encounter Administered Medications Inactive Administered Medications - up to 3 most recent administrations Medication Order MAR Action Action Date Dose Rate Site gadobutrol (Gadavist) injection 6.8 mL 6.8 mL (rounded from 6.81 mL = 0.1 mL/kg 68.1 kg), Intravenous, Once in imaging, 1 dose, Starting on Sat02/24/25 at 1252, Until Sat02/24/25 at 1315, Routine, Imaging Protocol Orders Given 02/24/2025 1:15 PM EDT 6.8 mL Left Antecubital documented in this encounter Additional Health Concerns Assessment Noted Time A fall risk assessment has been complete d for the patient 02/23/2025 8:48 AM EDT A Body Mass Index follow-up plan has been documented for the patient 02/25/2025 5:11 PM EDT documented as of this encounter Care Teams Snuff Blender Relationship Specialty Start Date End Date Casa Phillips MD [address] [place] [address] PCP - General 02/22/25 Forrest Nickerson APRN [address] [place] [address] 03/06/23 documented as of this encounter
--- OUTSIDE RECORDS SUMMARY | 2025-03-29 09:43 | XMS_ITS | Encounter Summary ---
Author Organization [facility] Address [address] [place] [address] Care Team Providers Care Flatbed Truck Driver Name Role Phone Forrest Nickerson RUG MEASURER Unavailable [phone] Casa Phillips MD Primary Care Provider [phone] Reason for Visit * Auth/Cert (Routine) Specialty Diagnoses / Procedures Referred By Contac t Referred To Contact Diagnoses Non-small cell cancer of left lung (CMS/HCC) Non-small cell cancer of left lung Procedures [place] THORACOSCOPY SURG LOBECTOMY LEFT VATS LOBECTOMY Ирина Lopez MD [address] [address] Phone: tel: fax: [facility] RO[facility] [address] [place] [address] Phone: tel: Referral ID Status Reason Start Date Expiration Date Visits Re quested Visits Authorized [id number] 1 1 Encounter Details Date Type Department Care Team (Latest Contact Info) Description 03/29/2025 9:43 AM EDT - 04/04/2025 12:18 PM EDT Hospital Encounter [facility] Inpatient [address] [place] [id number] Ирина Lopez MD [address] [address] Non-small cell cancer of left lung (CMS/HCC) [...] any time in the past 12 m [facility], were you homeless or living in a jail (including now)? No 03/31/2025 Utilities Answer Date Recorded In the past 12 months has th e electric, gas, oil, or water [employer] threatened to shut off services in your [...] Clinic discharge # - For urgent questions/concerns: [facility] hotline: , option 4 - ask for the thoracic surgeon media production manager. documented in this encounter Medications at Time [...] from the original note were not included. [id number] Surgery for Lung Cancer Surgery can be [...] holidays. Last Reviewed Date: 2023 00:00:00 ?? [id number] [employer]. All rights reserved. This information is not intended as a substitute for professional medical care. Always follow your healthcare professional's instructions. * Chester Lyons RN - 04/04/2025 10:29 AM EDT Images from the original note were not included. [id number] Thoracotomy Thoracotomy is surgery used to diagnose [...] . Last Reviewed Date: 2024 00:00:00 ?? 5080-7170 [employer]. All rights reserved. This information is not intended as a substitute for professional medical care. Always follow your healthcare professional's instructions. * Neida Garland - Chester Cuevas RN - 04/04/2025 10:29 AM EDT Images from the original note were not included. 78934 Lung Cancer: Video-Assisted and Robotic-Assisted Thoracic Surgery [...] you will hurt less after surgery. ? [place] [facility] stay. You can likely go home [...] surgery because the cuts are small. ? [place] hospital stay. You can likely go home [...] of surgery you need. Make sure the surgeonand care center have experience in VATS or RATS. [...] future. Last Reviewed Date: 2023 00:00:00 ?? 9976-6608 [employer]. All rights reserved. This information is not intended as a substitute for professional medical care. Always follow your healthcare professional's instructions. * Neida Garland - Chester Cuevas RN - 04/04/2025 10:24 AM EDT Images from the original note were not included. [id number] Tamsulosin Brand Name(s): Flomax??, Su?? (as a [...] and out of their sight and reach. [email or web address] Unneeded medications should be disposed of in [...] be awakened, immediately call emergency services at [phone]. Symptoms of overdose may include: ? dizziness [...] of all of the prescription and nonprescription (macc-naa-opaqmaw) medicines you are taking, as well as [...] or pharmacist about specific clinical use. The [employer] represents that the information provided hereunder was formulated with a reasonable standard of care, and in conformity with professional standards in the field. The [employer] makes no representations or warranties, express or implied, including, but not limited to, any implied warranty of merchantability and/or fitness for a particular purpose, with respect to such information and specifically disclaims all such warranties. Users are advised that decisions regarding drug therapy are complex medical decisions requiring the independent, informed decision of an appropriate health healthcare liaison, and the information is provided for informational purposes only. The entire monograph for a drug should be reviewed for a thorough understanding of the drug's actions, uses and side effects. The [employer] does not endorse or recommend the use of any drug.The information is not a substitute for medical care. AHFS?? Patient Medication Information?. ?? Copyright, 2023. The [employer]??, [address], [address], [place], [place]. All Rights Reserved. Duplication for commercial use must be authorized by [facility]. Selected Revisions: October 28, 2017. AHFS?? Patient Medication Information?. ?? Copyright, 2024 * Neida Garland - Chester Cuevas RN - 04/04/2025 10:24 AM EDT Images from the original note were not included. [id number] Senna Brand Name(s): Black Aidanght??, Ex-Lax??, Baca's [...] directions on your package or prescription label elvis schmitt, and ask your doctor or pharmacist to [...] and out of their sight and reach. [email or web address] Unneeded medications should be disposed of in [...] be awakened, immediately call emergency services at 255. What OTHER INFORMATION should I know? Ask your pharmacist any questions you have about senna. It is important for you to keep a written list of all of the prescription and nonprescription (yvdy-mlx-nerqnzm) medicines you are taking, as well as [...] or pharmacist about specific clinical use. The [employer] represents that the information provided hereunder was formulated with a reasonable standard of care, and in conformity with professional standards in the field. The [employer] makes no representations or warranties, express or implied, including, but not limited to, any implied warranty of merchantability and/or fitness for a particular purpose, with respect to such information and specifically disclaims all such warranties. Users are advised that decisions regarding drug therapy are complex medical decisions requiring the independent, informed decision of an appropriate health healthcare liaison, and the information is provided for informational purposes only. The entire monograph for a drug should be reviewed for a thorough understanding of the drug's actions, uses and side effects. The [employer] does not endorse or recommend the use of any drug.The information is not a substitute for medical care. AHFS?? Patient Medication Information?. ?? Copyright, 2023. The [employer]??, [address], [address], [place], [place]. All Rights Reserved. Duplication for commercial use must be authorized by [facility]. Selected Revisions: April 02, 2024. AHFS?? Patient Medication Information?. ?? Copyright, 2024 * Neida Garland - Chester Cuevas RN - 04/04/2025 10:24 AM EDT Images from the original note were not included. [id number] Polyethylene Glycol 3350 Brand Name(s): MiraLax?? PEG [...] be awakened, immediately call emergency services at 831. Symptoms of overdose may include: ? diarrhea ? thirst ? confusion ? seizure What OTHER INFORMATION should I know? Keep all appointments with your doctor. Do not let anyone else take your medication. Ask your pharmacist any questions you have about refilling your prescription. It is important for you to keep a written list of all of the prescription and nonprescription (sngx-gxx-ahwbrvz) medicines you are taking, as well as [...] or pharmacist about specific clinical use. The [employer] represents that the information provided hereunder was formulated with a reasonable standard of care, and in conformity with professional standards in the field. The [employer] makes no representations or warranties, express or implied, including, but not limited to, any implied warranty of merchantability and/or fitness for a particular purpose, with respect to such information and specifically disclaims all such warranties. Users are advised that decisions regarding drug therapy are complex medical decisions requiring the independent, informed decision of an appropriate health healthcare liaison, and the information is provided for informational purposes only. The entire monograph for a drug should be reviewed for a thorough understanding of the drug's actions, uses and side effects. The [employer] does not endorse or recommend the use of any drug.The information is not a substitute for medical care. AHFS?? Patient Medication Information?. ?? Copyright, 2023. The [employer]??, [address], [address], [place], [place]. All Rights Reserved. Duplication for commercial use must be authorized by [facility]. Selected Revisions: December 27, 2015. AHFS?? Patient Medication Information?. ?? Copyright, 2024 * Neida Garland - Chester Cuevas RN - 04/04/2025 10:24 AM EDT 1087 Oxycodone Oral Tablet, Immediate Release Brand Names: Oxaydo, Roxicodone What is this medicine? Oxycodone (wx-b-RCH-done) is an opioid pain reliever. It is [...] a special medication guide each time you garbage pick up man this medicine. ? Overdosage: Taking too much [...] should report to your doctor or health healthcare liaison as soon as possible: ? allergic reactions [...] attention (report to your doctor or health healthcare liaison if they continue or are bothersome): ? constipation ? dry mouth ? itching ? nausea, vomiting ? upset stomach This list may not describe all possible side effects. Call your doctor for medical advice about side effects. You may report side effects to FDA at 0-593-NKC-2637. Where should I keep my medicine? This [...] location. To find a disposal location, visit The [employer] [address]/[facility]/[place]. If you cannot take unused medicine [...] from the original note were not included. [id number] Methocarbamol Brand Name(s): Robaxin??; also available generically [...] be awakened, immediately call emergency services at 411. What OTHER INFORMATION should I know? Keep all appointments with your doctor. Do not let anyone else take your medication. Ask your pharmacist any questions you have about refilling your prescription. It is important for you to keep a written list of all of the prescription and nonprescription (sggz-qwh-hlxulfb) medicines you are taking, as well as [...] or pharmacist about specific clinical use. The [employer] represents that the information provided hereunder was formulated with a reasonable standard of care, and in conformity with professional standards in the field. The [employer] makes no representations or warranties, express or implied, including, but not limited to, any implied warranty of merchantability and/or fitness for a particular purpose, with respect to such information and specifically disclaims all such warranties. Users are advised that decisions regarding drug therapy are complex medical decisions requiring the independent, informed decision of an appropriate health healthcare liaison, and the information is provided for informational purposes only. The entire monograph for a drug should be reviewed for a thorough understanding of the drug's actions, uses and side effects. The [employer] does not endorse or recommend the use of any drug.The information is not a substitute for medical care. AHFS?? Patient Medication Information?. ?? Copyright, 2023. The [employer]??, [address], [address], [place], [place]. All Rights Reserved. Duplication for commercial use must be authorized by [facility]. Selected Revisions: May 28, 2017. AHFS?? Patient Medication Information?. ?? Copyright, 2024 * Neida Garland - Chester Cuevas RN - 04/04/2025 10:23 AM EDT Images from the original note were not included. [id number] Acetaminophen Brand Name(s): Actamin??, Feverall??, Panadol??, Tempra Quicklets??, Tylenol??, Dayquil?? (as a combination product containing Acetaminophen, Dextromethorphan, Pseudoephedrine), NyQuil Cold/Flu Relief?? (as a combination product containing Acetaminophen, Dextromethorphan, Doxylamine), Percocet?? (as a combination product containing Acetaminophen, Oxycodone) APAP, J-nbskbg-vrnp-aminophenol, Paracetamol ?? This branded product is no [...] measuring cup or syringe provided by the pilling machine operator to measure each dose of the solution [...] of all of the prescription and nonprescription (ehow-oql-weiiqhr) medicines you are taking, as well as [...] or pharmacist about specific clinical use. The [employer] represents that the information provided hereunder was formulated with a reasonable standard of care, and in conformity with professional standards in the field. The [employer] makes no representations or warranties, express or implied, including, but not limited to, any implied warranty of merchantability and/or fitness for a particular purpose, with respect to such information and specifically disclaims all such warranties. Users are advised that decisions regarding drug therapy are complex medical decisions requiring the independent, informed decision of an appropriate health healthcare liaison, and the information is provided for informational purposes only. The entire monograph for a drug should be reviewed for a thorough understanding of the drug's actions, uses and side effects. The [employer] does not endorse or recommend the use of any drug.The information is not a substitute for medical care. AHFS?? Patient Medication Information?. ?? Copyright, 2023. The [employer]??, [address], [address], [place], [place]. All Rights Reserved. Duplication for commercial use must be authorized by [facility]. Selected Revisions: June 28, 2023. AHFS?? Patient Medication Information?. ?? Copyright, 2024 * Discharge Summary - Everett Marie DO - 04/04/2025 9:13 AM EDT Hospitalization Admit Date/Time: 03/29/2025 9:43 AM Admitting Attending: Ирина Lopez Discharge Date: 04/04/2025 Discharge Attending Physician: Ирина Lopez MD PCP name and Address: Casa Phillips MD [address] [facility] / [place] [address] Referring provider name and address: No referring provider defined for this encounter. Chief Concern, Brief History of Present Illness, and Hospital Course HPI: Michelle Feliz Jr. is a 79 y.o. male [...] Your Medications These medications were sent to [facility] - [place], [place] - [address] [facility] [address] acetaminophen 500 MG tablet methocarbamol 500 MG [...] disease, without long-term current use of insulin ([facility]) * (Principal) Non-small cell cancer of left [...] Clinic discharge # - For urgent questions/concerns: [facility] hotline: , option 4 - ask for the thoracic surgeon media production manager. Outpatient Follow-Up Future Appointments Date Time Provider Department Center 04/06/2025 10:40 AM Nikolai Naranjo MD [facility] Test Results Pending At Discharge Pending Labs [...] DO - 04/04/2025 6:45 AM EDT HPI: Michelle Feliz Jr. is a 79 y.o. male [...] PM EDT Physical Therapy Treatment Patient Name: Michelle Feliz Jr. Today's Date: 04/03/2025 PT Discharge Recommendations: Home [...] Mobility Exam: Supine to Sit Level of [place]: Stand-by assist Physical/Nonphysical Assist: Set-up required, HOB elevated Assistive Device: Bed rails Transfers Transfer Exam: Sit to stand Level of [place]: Stand-by assist Physical/Nonphysical Assist: Verbal Cues, Nonverbal cues (demo/gestures), Minimal cues Assistive Device: Rollator Transfer Exam: Stand to Sit Level of [place]: Stand-by assist Physical/Nonphysical Assist: Verbal Cues, Nonverbal [...] to areas of treatment space. Standardized Assessments [facility] 6-Clicks Mobility Assessment Difficulty patient has [...] 3-5 steps with a railing?: A little [facility] 6-Clicks Mobility Assessment Total : 21 Assessment Pt tolerated PT session well with no unexpected events occurring during treatment. Vital signs remained stable throughout treatment with no significant changes. PT educated patient on the importanceof continued mobilization and participation with therapy. Pt [...] 12:15 PM. * Progress Notes - Sabina Huynh RN - 04/03/2025 12:06 PM EDT Weekend CM was contacted by Occupational Therapy for assistance with DME. Referrals sent to [facility] for Rollator to be delivered to bedside today. * Progress Notes - Patricia Torres - 04/03/2025 11:49 AM EDT Occupational Therapy Treatment Patient Name: Michelle Feliz Jr. Today's Date: 04/03/2025 OT Discharge Recommendations: Home with 24 hour assistance Equipment Recommended: Rollator Subjective Pt consent to tx Participants in Care Family/Caregiver Present: Yes Family/Caregiver: Adult Daughter Secondary School Registrar: Not Applicable Presentation Oxygen Therapy: None (Room [...] Mobility Exam: Supine to Sit Level of [place]: Stand-by assist Physical/Nonphysical Assist: Set-up required, HOB elevated Transfers Transfer Exam: Sit to stand Level of [place]: Stand-by assist Physical/Nonphysical Assist: Verbal Cues, Nonverbal cues (demo/gestures), Minimal cues Assistive Device: Rollator Transfer Exam: Stand to Sit Level of [place]: Stand-by assist Physical/Nonphysical Assist: Verbal Cues, Nonverbal [...] reaches 6. Pt verbalizes understanding. Standardized Assessments [facility] 6-Click Daily Activities Help from Other: Don/Doff Regular Lower Body Clothings: Little Help From Other: Bathing: Little Help From Other: Toileting: Little Help From Other: Don/Doff Upper Body Clothings: Little Help From Other: Grooming: Little Help From Other: Eating Meals: None [facility] 6 Click - Daily Activities Score: 19 [...] PM. * Progress Notes - Frank Everett Jackson, DO - 04/03/2025 9:58 AM EDT Images from the original note were not included. [facility] Department of Surgery Section of Thoracic Surgery Progress Note 04/03/25 Michelle Feliz Jr. History of Present Illness Michelle Feliz Jr. is a 79 y.o. male [...] Intake/Output Summary (Last 24 hours) at 04/03/2025 0983 Last data filed at 04/03/2025 0900 Gross [...] disease, without long-term current use of insulin ([facility]) Microalbuminuria Tobacco use disorder Second [...] disease, without long-term current use of insulin ([facility]) Anemia Electrolyte abnormality Plan: - [...] AM EDT Occupational Therapy Treatment Patient Name: Michelle Feliz Jr. Today's Date: 04/02/2025 OT Discharge [...] Mobility Bed Mobility Exam: Scooting/Bridging Level of [place]: Minimum assist (75% patient's effort) Physical/Nonphysical Assist: Verbal Cues, Nonverbal cues (demo/gestures), Minimal cues Bed Mobility Exam: Supine to Sit Level of [place]: Minimum assist (75% patient's effort) Physical/Nonphysical Assist: Verbal Cues, Nonverbal cues (demo/gestures), HOB elevated Bed Mobility Exam: Sit to Supine Level of [place]: Minimum assist (75% patient's effort) Physical/Nonphysical Assist: Verbal Cues, Minimal cues Transfers Transfer Exam: Sit to stand Level of [place]: Minimum assist (75% patient's effort) Physical/Nonphysical Assist: Verbal Cues, Nonverbal cues (demo/gestures), Minimal cues Assistive Device: Rollator Transfer Exam: Stand to Sit Level of [place]: Minimum assist (75% patient's effort) Physical/Nonphysical Assist: [...] PHYSICAL THERAPY TREATMENT PATIENT DATA Patient Name Michelle Feliz Jr. Session Date 04/02/2025 Total Treatment [...] Level of Mobility Ambulatory- household only Mobility [place] Independent gait without device History of Falls [...] Ambulating in-room distances since last PT treatment. Secondary School Registrar (if applicable) OBJECTIVE & INTERVENTIONS PAIN Pt was without complaints of pain throughout the PT treatment. DELIRIUM SCREENING Curtis Agitation Sedation Scale (RASS): Alert and calm Feature 3: Altered Level of Consciousness: Negative THERAPEUTIC ACTIVITY Treatment Minutes 25 BED MOBILITY Level of [place] Physical/Non- physical Assist Adaptive Equipment Utilized Scooting/ [...] with supine <> sit TRANSFERS Level of [place] Physical/Non- physical Assist Adaptive Equipment Utilized Sit to Stand Minimum assist (75% patient's effort) Verbal Cues, Nonverbal cues (demo/gestures), Minimal cues Rollator Stand to sit Minimum assist (75% patient's effort) Verbal Cues, Nonverbal cues (demo/gestures), Minimal cues Rollator Interventions PT cued for proper hand placement and forward trunk lean prior to completing STS transfers BALANCE Postural Appearance Posture: Stooped posture Level of [place] Balance Support Interventions Static Sit Standby assist [...] Left upper extremity support AMBULATION Level of [place] Distance Adaptive Equipment Utilized Ambulation Contact guard [...] falling while progressing pt's distances Standardized Assessments [facility] 6-Clicks Mobility Assessment Difficulty patient has [...] climbing 3-5 steps with a railing?: Unable [facility] 6-Clicks Mobility Assessment Total : 16 [...] 1:13 PM. * Progress Notes - Scarlet Gabmoa APRN - 04/02/2025 9:07 AM EDT Images from the original note were not included. [facility] Department of Surgery Section of Thoracic Surgery Progress Note 04/02/25 Michelle Feliz Jr. History of Present Illness Michelle Feliz Jr. is a 79 y.o. male [...] disease, without long-term current use of insulin ([facility]) Microalbuminuria Tobacco use disorder Second [...] disease, without long-term current use of insulin ([facility]) Anemia Electrolyte abnormality Plan: - Keep chest [...] from the original note were not included. [facility] Department of Surgery Section of Thoracic Surgery Progress Note 04/01/25 Michelle Feliz Jr. History of Present Illness Michelle Feliz Jr. is a 79 y.o. male [...] (mL) 03/30/25 0700 - 03/30/25 1859 03/30/25 190 - 03/31/25 0659 03/31/25 07 - 03/31/25 1859 03/31/25 1900 - 04/01/25 0659 04/01/25 0700 - 04/01/25 1032 Requested LDAs do not [...] Results from last 7 days Lab Units 04/01/252 03/31/252 03/30/25 1057 CREATININE mg/dL 1.67* 1.59* 1.64* Medications [...] EDT Case Management Adult Initial Progress Note Michelle Feliz Jr. 79 y.o. male CSN: [id number] Admission: 03/29/2025 9:43 AM Primary Problem: Non-small cell cancer of left lung (CMS/HCC) Assistant Professor Of Theater reviewed chart and spoke with the patient at bedside to complete this Initial Case Management Assessment. PCP: Casa Phillips MD Emergency Contact: Extended Emergency Contact Information Primary Emergency Contact: Elliot Feliz Relation: Son Secondary School Registrar needed? No Secondary Emergency Contact: Nora Feliz Relation: Daughter Secondary School Registrar needed? No Insurance: Primary Visit Coverage Payer Plan Sponsor Code Group Number Group Name [employer] [facility] [id number] Primary Visit Coverage Subscriber Subscriber ID Subscriber Name Subscriber SSN Subscriber Address [id number] MICHELLE FELIZ JR [id number] [place] [address] Patient information: Primary Caregiver: Self Support System: Immediate family Daily Living Activities: Functional Status: Independent Living Arrangements: Children Type of Residence: Private residence, Single Level [address] [address] Current DME: Equipment Currently Used at Home: [...] DME Provider: n/a Living Will/Advance Directive/Power of Electronic Technician /Guardian: Have you reviewed your Advance Directive [...] HH/HD/O2. PCP is [facility]. Patient has An[employer] Medicare insurance and uses [facility]. Family will assist and transport at [...] from the original note were not included. [facility] Department of Surgery Section of Thoracic Surgery Progress Note 03/31/25 Michelle Feliz Jr. History of Present Illness Michelle Feliz Jr. is a 79 y.o. male [...] from last 7 days Lab Units 03/31/252 03/30/255 03/29/251957 HEMOGLOBIN g/dL 8.0* 8.8* 9.2* HEMATOCRIT [...] of insulin (CMS/HCC) Anemia Electrolyte abnormality Plan: [ ] OOBA, [...] Outcome: Ongoing, Progressing * Progress Notes - SrikanthNiecyie R - 03/31/2025 10:02 AM EDT Physical Therapy Evaluation Patient Name: Michelle Feliz Jr. Today's Date: 03/31/2025 PT Discharge Recommendations: Subacute rehab Equipment Recommended: Defer to facility History Michelle Feliz Jr. is 79 y.o. male admitted [...] Level of Mobility: Ambulatory- household only Mobility [place]: Independent gait without device History of Falls: [...] Mobility Bed Mobility Exam: Scooting/Bridging Level of [place]: Maximum assist (25% patient's effort) (to scoot to EOB while seated) Physical/Nonphysical Assist: Verbal Cues, Nonverbal cues (demo/gestures) Bed Mobility Exam: Supine to Sit Level of [place]: Maximum assist (25% patient's effort) Physical/Nonphysical Assist: Verbal Cues, Nonverbal cues (demo/gestures), Additional assist utilized for safety, HOB elevated Transfers Transfer Exam: Sit to stand Level of [place]: Moderate assist (50% patient's effort) Physical/Nonphysical Assist: Verbal Cues, Nonverbal cues (demo/gestures), Additional assist utilized for safety Transfer Exam: Stand to Sit Level of [place]: Moderate assist (50% patient's effort) Physical/Nonphysical Assist: [...] climbing 3-5 steps with a railing?: Unable [facility] 6-Clicks Mobility Assessment Total : 11 [...] AM EDT Occupational Therapy Evaluation Patient Name: Michelle Feliz Jr. Today's Date: 03/31/2025 OT Discharge Recommendations: Subacute rehab Equipment Recommended: Rollator History Michelle Feliz Jr. is 79 y.o. male admitted [...] Level of Mobility: Ambulatory- household only Mobility [place]: Independent gait without device History of Falls: [...] Mobility Bed Mobility Exam: Scooting/Bridging Level of [place]: Maximum assist (25% patient's effort) (to scoot to EOB while seated) Physical/Nonphysical Assist: Verbal Cues, Nonverbal cues (demo/gestures) Bed Mobility Exam: Supine to Sit Level of [place]: Maximum assist (25% patient's effort) Physical/Nonphysical Assist: Verbal Cues, Nonverbal cues (demo/gestures), Additional assist utilized for safety, HOB elevated Transfers Transfer Exam: Sit to stand Level of [place]: Moderate assist (50% patient's effort) Physical/Nonphysical Assist: Verbal Cues, Nonverbal cues (demo/gestures), Additional assist utilized for safety Transfer Exam: Stand to Sit Level of [place]: Moderate assist (50% patient's effort) Physical/Nonphysical Assist: [...] continued education to improve carryover. Standardized Assessments [facility] 6-Click Daily Activities Help from Other: Don/Doff Regular Lower Body Clothings: A lot Help From Other: Bathing: A lot Help From Other: Toileting: A lot Help From Other: Don/Doff Upper Body Clothings: Little Help From Other: Grooming: Little Help From Other: Eating Meals: None [facility] 6 Click - Daily Activities Score: 16 [...] from the original note were not included. [facility] Department of Surgery Section of Thoracic Surgery Progress Note 03/30/25 Michelle Feliz Jr. History of Present Illness Michelle Feliz Jr. is a 79 y.o. male [...] Airway None Output by Drain (mL) 03/28/25 0700 - 03/28/25 1859 03/28/25 1900 - 03/29/25 0659 03/29/25 0700 - [...] DO - 03/29/2025 10:24 PM EDT Patient: Michelle Feliz . Anesthesia Type: general Vitals Value Taken Time [...] PM EDT Operative Note Date: 03/29/25 Location: [facility] OR Name: Michelle Feliz JrParker, : 1945, Diagnoses: Pre-op Diagnosis Non-small cell cancer of left lung (CMS/HCC) Post-op Diagnosis Non-small cell cancer of left lung (CMS/HCC) Procedure(s): Bronchoscopy, left VATS converted to thoracotomy, left upper lobectomy, mediastinal lymph node dissection, intercostal nerve blocks Attending Surgeon(s): * Ирина Lopez - Primary Credit Counselor(s): * Carl Hamlin MD - Resident - [...] spaces under direct visualization. A single 24 Moldovan chest tube was placed through the camera [...] LEFT UPPER LOBE History Of Present Illness Michelle Feliz Jr. is a 79 y.o. male presenting with a biopsy proven NSCLC of the left upper lobe. Patient was last seen in our clinic on 02/23/25. HPI from 02/23/25 Clinic Note included below: Michelle Feliz Jr. is a 79 y.o. male [...] responses Results Review {Vanishing Link Review Results :[id number] I have reviewed the latest lab and imaging results. Assessment & Plan Michelle Feliz Jr. Is a 79 y.o. male [...] % flush 10 mL 10 mL Intravenous PRANEETHN Robert Santos MD Cosigned by Ирина Lopez [...] Preoperative Instructions You will be called the day before surgery with your arrival time [...] card, photo ID, along with power of attorney recruiter, guardianship or advanced directives if applicable Do [...] Upcoming Encounters Date Type Department Care Team ([facility] st Contact Info) Description 04/20/2025 10:00 AM EDT Appointment [facility] H Radiology [address] [place] [phone] 04/20/2025 10:30 AM EDT Office Visit Pav [facility] Head, Neck & Respiratory [address] [facility]nd [place] [address] Ирина Lopez MD [address] [facility] [address] [place] [address] 07/06/2025 10:40 AM EDT Office Visit Pav [facility] Head, Neck & Respiratory [address] [facility], [address] [place] [address] Nikolai Naranjo MD [address] [facility] [address] [place] [address] Scheduled Orders Name Type Priority Associated Diagnoses Orde r Schedule XR Chest 2 Views Imaging Routine Non-small cell cancer of left lung (CMS/HCC) Expected: 04/20/2025 (Approximate), Expires: 10/06/2026 documented as of this encounter Procedures Procedure [...] Non-small cell cancer of left lung (CMS/HCC) [facility] THORACOSCOPY SURG LOBECTOMY 03/29/2025 1:24 PM EDT Non-small cell cancer of left lung (CMS/HCC) POCT GLUCOSE METER UNSOLICITED RESULTS Routine 03/29/2025 12:48 PM EDT TYPE AND SCREEN Routine 03/29/2025 12:27 PM EDT BLOOD GAS PANEL, VENOUS Routine 03/29/2025 12:27 PM EDT documented in this encounter Results * (ABNORMAL) POCT glucose meter (04/04/2025 8:34 AM EDT) [facility] Signature POCT Glucose 159(H) 74 - 99 mg/dL 04/04/2025 8:36 AM EDT [facility] Comment:Accuracy of a glucos e result [...] Comment 04/04/2025 8:36 AM EDT [facility]ALTHCARE LAB Sports Medicine Trainer ID Sandy Kramer 04/04/2025 8:36 AM EDT HEALTHCARE LAB Device ID [id number] 04/04/2025 8:36 AM EDT [facility] Specimen Type POC Capillary 04/04/2025 8:36 AM EDT [facility] Blood Capillary blood specimen / Unknown 04/04/2025 8:34 AM EDT 04/04/2025 8:36 AM EDT us Ирина Lopez MD LAB POINT OF CARE TE ST DOCKED DEVICE UNSOLICITED RESULTS Final Result Performing Organization Address City/State/[facility] Co de Phone Number HEALTHCARE LAB [address] [place] [address] * XR Chest 1 View (04/04/2025 5:20 [...] MD on 04/04/2025 10:20 AM Scarlet Gamboa RUG MEASURER IMG XR PROCEDURES Final Resul t * (ABNORMAL) Renal Function Panel, Plasma (04/04/2025 2:19 AM EDT) Glucose, Plasma 166(H) 74 - 99 mg/dL 04/04/2025 2:53 AM EDT [facility] BUN, Plasma 18 8 - 23 mg/dL 04/04/2025 2:53 AM EDT [facility] Creatinine, Plasma 1.31(H) 0.70 - 1.20 mg/dL 04/04/2025 2:53 AM EDT [facility] BUN/Creatinine Ratio 14 04/04/2025 2:53 AM EDT [facility] Sodium, Plasma 136 136 - 145 mmol/L 04/04/2025 2:53 AM EDT [facility] Potassium, Plasma 4.3 3.6 - 4.9 mmol/L 04/04/2025 2:53 AM EDT [facility] Chloride, Plasma 103 97 - 107 mmol/L 04/04/2025 2:53 AM EDT [facility] CO2, Plasma 22 22 - 29 mmol/L 04/04/2025 2:53 AM EDT [facility] Anion Gap 11 6 - 16 mmol/L 04/04/2025 2:53 AM EDT [facility] Total Calcium, Plasma 8.2(L) 8.9 - 10.2 mg/dL 04/04/2025 2:53 AM EDT [facility] Phosphorus, Plasma 3.1 2.5 - 4.5 mg/dL 04/04/2025 2:53 AM EDT [facility] Albumin, Plasma 3.0(L) 3.5 - 5.2 g/dL 04/04/2025 2:53 AM EDT [facility] eGFRcr 55.7 mL/min/1.7 3m*2 04/04/2025 2:53 AM EDT [facility] Comment:Reported eGFRcr in m L/min/1.73m2 is based the CKD-EPI 2020 equation that does not use a race coefficient. Blood Venous blood specimen / Unknown Venipuncture / Unknown 04/04/2025 2:19 AM EDT 04/04/2025 2:24 AM EDT Ирина Lopez MD LAB BLOOD ORDERABLES Final R esult Performing Organization Address [facility] Co de Phone Number [facility] [address] [place] [address] * (ABNORMAL) Magnesium, Plasma (04/04/2025 2:19 AM EDT) Magnesium, Plasma 1.8(L) 1.9 - 2.4 mg/dL 04/04/2025 2:53 AM EDT [facility] Blood Venous blood specimen / Unknown Venipuncture / Unknown 04/04/2025 2:19 AM EDT 04/04/2025 2:24 AM EDT Ирина Lopez MD LAB BLOOD ORDERABLES Final R esult Performing Organization Address [facility] de Phone Number [facility] [address] [place] [address] * (ABNORMAL) CBC W/O Differential (04/04/2025 2:19 AM EDT) WBC Count 5.44 3.70 - 10.30 10*3/uL LAB HEMATOLOGY METHOD 04/04/2025 2:33 AM EDT [facility] RBC Count 3.77(L) 4.60 - 6.10 10*6/uL LAB HEMATOLOGY METHOD 04/04/2025 2:33 AM EDT [facility] HGB 10.7(L) 13.7 - 17.5 g/dL LAB HEMATOLOGY METHOD 04/04/2025 2:33 AM EDT [facility] HCT 32.4(L) 40.0 - 51.0 % LAB HEMATOLOGY METHOD 04/04/2025 2:33 AM EDT [facility] Platelet Count 220 155 - 369 10*3/uL LAB HEMATOLOGY METHOD 04/04/2025 2:33 AM EDT [facility] MCV 86 79 - 98 fL LAB HEMATOLOGY METHOD 04/04/2025 2:33 AM EDT [facility] MCH 28.4 26.0 - 32.0 pg LAB HEMATOLOGY METHOD 04/04/2025 2:33 AM EDT [facility] MCHC 33.0 30.7 - 35.5 g/dL LAB HEMATOLOGY METHOD 04/04/2025 2:33 AM EDT [facility] RDW 14.7(H) 11.5 - 14.5 % LAB HEMATOLOGY METHOD 04/04/2025 2:33 AM EDT [facility] MPV 9.1 8.8 - 12.5 fL LAB HEMATOLOGY METHOD 04/04/2025 2:33 AM EDT [facility] nRBC 0.4(H) <=0.0 per 100 WBCs LAB HEMATOLOGY METHOD 04/04/2025 2:33 AM EDT [facility] Blood Venous blood specimen / Unknown Venipuncture / Unknown 04/04/2025 2:19 AM EDT 04/04/2025 2:24 AM EDT us Ирина Lopez MD LAB BLOOD ORDERABLES Final R esult [facility] [address] [place] [address] * (ABNORMAL) POCT glucose meter (04/03/2025 8:25 PM EDT) POCT Glucose 194(H) 74 - 99 mg/dL [...] Comment 04/03/2025 8:28 PM EDT [facility]ARE [facility] Sports Medicine Trainer ID Obdulio Navarro 04/03/2025 8:28 PM EDT [facility] Device ID [id number] 04/03/2025 8:28 PM EDT [facility] Specimen Type POC Capillary 04/03/2025 8:28 PM EDT [facility] Blood Capillary blood specimen / Unknown 04/03/2025 8:25 PM EDT 04/03/2025 8:28 PM EDT Ирина Lopez MD LAB POINT OF CARE TE ST DOCKED DEVICE UNSOLICITED RESULTS Final Result Performing Organization Address City/[facility]/ZIP Co de Phone Number [facility] [address] [place] [address] * (ABNORMAL) POCT glucose meter (04/03/2025 5:27 PM EDT) POCT Glucose 138(H) 74 - 99 mg/dL [...] for testing. Comment 04/03/2025 5:29 PM EDT [facility] Sports Medicine Trainer ID Anayeli Castro 025 5:29 PM EDT [facility]ALTH[facility]ARE LAB Device ID [id number] 04/03/2025 5:29 PM EDT [facility]ARE [facility] Specimen Type POC Capillary 04/03/2025 5:29 PM EDT [facility] Blood Capillary blood specimen / Unknown 04/03/2025 5:27 PM EDT 04/03/2025 5:29 PM EDT us Ирина Lopez MD LAB POINT OF CARE TE ST DOCKED DEVICE UNSOLICITED RESULTS Final Result [facility] [address] [place] [address] * XR Chest 1 View (04/03/2025 1:09 [...] Nevaeh Winn MD on 04/03/2025 2:12 PM us Ирина Lopez MD IMG XR PROCEDURES Final Resu lt * (ABNORMAL) POCT glucose meter (04/03/2025 12:15 PM EDT) POCT Glucose 190(H) 74 - 99 mg/dL 04/03/2025 12:17 PM EDT [facility] Comment:Accuracy of a glucos e result [...] for testing. Comment 04/03/2025 12:17 PM EDT [facility] Sports Medicine Trainer ID Anayeli Castro 025 12:17 PM EDT HEALTH[facility]ARE LAB Device ID [id number] 04/03/2025 12:17 PM EDT [facility] Specimen Type POC Capillary 04/03/2025 12:17 PM EDT [facility] Blood Capillary blood specimen / Unknown 04/03/2025 12:15 PM EDT 04/03/2025 12:17 PM EDT Ирина Lopez MD LAB POINT OF CARE TE ST DOCKED DEVICE UNSOLICITED RESULTS Final Result Performing Organization Address City/[facility] Co de Phone Number [facility] [address] [place] [address] * (ABNORMAL) POCT glucose meter (04/03/2025 8:46 AM EDT) [facility] POCT Glucose 123(H) 74 - 99 mg/dL 04/03/2025 8:48 AM EDT [facility] Comment:Accuracy of a [...] for testing. Comment 04/03/2025 8:48 AM EDT [facility] Sports Medicine Trainer ID Anayeli Castro 025 8:48 AM EDT [facility]ARE [facility] Device ID [id number] 04/03/2025 8:48 AM EDT [facility] Specimen Type POC Capillary 04/03/2025 8:48 AM EDT [facility] Blood Capillary blood specimen / Unknown 04/03/2025 8:46 AM EDT 04/03/2025 8:48 AM EDT us Ирина Lopez MD LAB POINT OF CARE TE ST DOCKED DEVICE UNSOLICITED RESULTS Final Result Performing Organization Address City/[facility]/ZIP Co de Phone Number [facility] [address] [place] [address] * XR Chest 1 View (04/03/2025 5:53 [...] Nevaeh Winn MD on 04/03/2025 9:52 AM Scarlet Gamboa RUG MEASURER IMG XR PROCEDURES Final Resul t * (ABNORMAL) Renal Function Panel, Plasma (04/03/2025 3:45 AM EDT) Glucose, Plasma 131(H) 74 - 99 mg/dL 04/03/2025 4:24 AM EDT [facility] BUN, Plasma 16 8 - 23 mg/dL 04/03/2025 4:24 AM EDT [facility] Creatinine, Plasma 1.34(H) 0.70 - 1.20 mg/dL 04/03/2025 4:24 AM EDT [facility] BUN/Creatinine Ratio 12 04/03/2025 4:24 AM EDT [facility] Sodium, Plasma 135(L) 136 - 145 mmol/L 04/03/2025 4:24 AM EDT [facility] Potassium, Plasma 4.9 3.6 - 4.9 mmol/L 04/03/2025 4:24 AM EDT [facility] Chloride, Plasma 103 97 - 107 mmol/L 04/03/2025 4:24 AM EDT [facility] CO2, Plasma 21(L) 22 - 29 mmol/L 04/03/2025 4:24 AM EDT [facility] Anion Gap 11 6 - 16 mmol/L 04/03/2025 4:24 AM EDT [facility] Total Calcium, Plasma 7.7(L) 8.9 - 10.2 mg/dL 04/03/2025 4:24 AM EDT [facility] Phosphorus, Plasma 2.2(L) 2.5 - 4.5 mg/dL 04/03/2025 4:24 AM EDT [facility] Albumin, Plasma 2.8(L) 3.5 - 5.2 g/dL 04/03/2025 4:24 AM EDT [facility] eGFRcr 54.2 mL/min/1.7 3m*2 04/03/2025 4:24 AM EDT [facility] Comment:Reported eGFRcr in m L/min/1.73m2 is based the CKD-EPI 2020 equation that does not use a race coefficient. Blood Venous blood specimen / Unknown Venipuncture / Unknown 04/03/2025 3:45 AM EDT 04/03/2025 3:54 AM EDT us Ирина Lopez MD LAB BLOOD ORDERABLES Final R esult [facility] [address] [place] [address] * Magnesium, Plasma (04/03/2025 3:45 AM EDT) Magnesium, Plasma 2.0 1.9 - 2.4 mg/dL 04/03/2025 4:24 AM EDT [facility] Blood Venous blood specimen / Unknown Venipuncture / Unknown 04/03/2025 3:45 AM EDT 04/03/2025 3:54 AM EDT us Ирина Lopez MD LAB BLOOD ORDERABLES Final R esult [facility] [address] [place] [address] * (ABNORMAL) CBC W/O Differential (04/03/2025 3:45 AM EDT) WBC Count 6.54 3.70 - 10.30 10*3/uL LAB HEMATOLOGY METHOD 04/03/2025 4:09 AM EDT [facility] RBC Count 3.42(L) 4.60 - 6.10 10*6/uL LAB HEMATOLOGY METHOD 04/03/2025 4:09 AM EDT [facility] HGB 9.8(L) 13.7 - 17.5 g/dL LAB HEMATOLOGY METHOD 04/03/2025 4:09 AM EDT [facility] HCT 29.2(L) 40.0 - 51.0 % LAB HEMATOLOGY METHOD 04/03/2025 4:09 AM EDT [facility] Platelet Count 209 155 - 369 10*3/uL LAB HEMATOLOGY METHOD 04/03/2025 4:09 AM EDT [facility] MCV 85 79 - 98 fL LAB HEMATOLOGY METHOD 04/03/2025 4:09 AM EDT [facility] MCH 28.7 26.0 - 32.0 pg LAB HEMATOLOGY METHOD 04/03/2025 4:09 AM EDT [facility] MCHC 33.6 30.7 - 35.5 g/dL LAB HEMATOLOGY METHOD 04/03/2025 4:09 AM EDT [facility] RDW 15.0(H) 11.5 - 14.5 % LAB HEMATOLOGY METHOD 04/03/2025 4:09 AM EDT [facility] MPV 9.4 8.8 - 12.5 fL LAB HEMATOLOGY METHOD 04/03/2025 4:09 AM EDT [facility] nRBC 0.0 <=0.0 per 100 WBCs LAB HEMATOLOGY METHOD 04/03/2025 4:09 AM EDT [facility] Blood Venous blood specimen / Unknown Venipuncture / Unknown 04/03/2025 3:45 AM EDT 04/03/2025 3:54 AM EDT us Ирина Lopez MD LAB BLOOD ORDERABLES Final R esult [facility] [address] [place] [address] * (ABNORMAL) POCT glucose meter (04/02/2025 8:16 PM EDT) POCT Glucose 154(H) 74 - 99 mg/dL 04/02/2025 8:20 PM EDT [facility] Comment:Accuracy of [...] for testing. Comment 04/02/2025 8:20 PM EDT [facility] Sports Medicine Trainer ID ShkrabaJil 8:20 PM EDT [facility]ARE LAB Device ID [id number] 04/02/2025 8:20 PM EDT [facility] Specimen Type POC Capillary 04/02/2025 8:20 PM EDT [facility] Blood Capillary blood specimen / Unknown 04/02/2025 8:16 PM EDT 04/02/2025 8:20 PM EDT us Ирина Lopez MD LAB POINT OF CARE TE ST DOCKED DEVICE UNSOLICITED RESULTS Final Result [facility] [address] [place] [address] * (ABNORMAL) POCT glucose meter (04/02/2025 5:20 PM EDT) POCT Glucose 122(H) 74 - 99 mg/dL [...] Comment 04/02/2025 5:22 PM EDT [facility] Sports Medicine Trainer ID Kenn Cabrera 04/02/2025 5:22 PM EDT [facility]ARE [facility] Device ID [id number] 04/02/2025 5:22 PM EDT [facility] Specimen Type POC Capillary 04/02/2025 5:22 PM EDT [facility] Blood Capillary blood specimen / Unknown 04/02/2025 5:20 PM EDT 04/02/2025 5:22 PM EDT us Ирина Lopez MD LAB POINT OF CARE TE ST DOCKED DEVICE UNSOLICITED RESULTS Final Result Performing Organization Address City/State/[facility] Co de Phone Number [facility]ARE [facility] [address] [place] [address] * (ABNORMAL) CBC W/O Differential (04/02/2025 3:02 PM EDT) WBC Count 6.02 3.70 - 10.30 10*3/uL LAB HEMATOLOGY METHOD 04/02/2025 3:27 PM EDT [facility] RBC Count 3.09(L) 4.60 - 6.10 10*6/uL LAB HEMATOLOGY METHOD 04/02/2025 3:27 PM EDT [facility] HGB 8.9(L) 13.7 - 17.5 g/dL LAB HEMATOLOGY METHOD 04/02/2025 3:27 PM EDT [facility] HCT 26.9(L) 40.0 - 51.0 % LAB HEMATOLOGY METHOD 04/02/2025 3:27 PM EDT [facility] Platelet Count 129(L) 155 - 369 10*3/uL LAB HEMATOLOGY METHOD 04/02/2025 3:27 PM EDT [facility] MCV 87 79 - 98 fL LAB HEMATOLOGY METHOD 04/02/2025 3:27 PM EDT [facility] MCH 28.8 26.0 - 32.0 pg LAB HEMATOLOGY METHOD 04/02/2025 3:27 PM EDT [facility] MCHC 33.1 30.7 - 35.5 g/dL LAB HEMATOLOGY METHOD 04/02/2025 3:27 PM EDT [facility] RDW 14.4 11.5 - 14.5 % LAB HEMATOLOGY METHOD 04/02/2025 3:27 PM EDT [facility] MPV 9.9 8.8 - 12.5 fL LAB HEMATOLOGY METHOD 04/02/2025 3:27 PM EDT [facility] nRBC 0.0 <=0.0 per 100 WBCs LAB HEMATOLOGY METHOD 04/02/2025 3:27 PM EDT [facility] Blood Venous blood specimen / Unknown Venipuncture / Unknown 04/02/2025 3:02 PM EDT 04/02/2025 3:20 PM EDT Scarlet Gamboa APRN LAB BLOOD ORDERABLES [facility] [address] [place] [address] * Transfuse RBC (04/02/2025 2:53 PM EDT) us Scarlet Gamboa APRN BLOOD TRANSFUSION ORDERABLES Final Result * Transfuse RBC: 2 Units (04/02/2025 2:53 PM EDT) us Scarlet Gamboa APRN BLOOD TRANSFUSION ORDERABLES Edited Result - Final * (ABNORMAL) POCT glucose meter (04/02/2025 12:28 PM EDT) [facility] POCT Glucose 149(H) 74 - 99 mg/dL [...] for testing. Comment 04/02/2025 12:30 PM EDT [facility] Sports Medicine Trainer ID Kenn Cabrera 04/02/2025 12:30 PM EDT [facility]ALTH[facility]ARE LAB Device ID [id number] 04/02/2025 12:30 PM EDT [facility] Specimen Type POC Capillary 04/02/2025 12:30 PM EDT [facility] Blood Capillary blood specimen / Unknown 04/02/2025 12:28 PM EDT 04/02/2025 12:30 PM EDT Ирина Lopez MD LAB POINT OF CARE TE ST DOCKED DEVICE UNSOLICITED RESULTS Final Result [facility] [address] [place] [address] * Transfuse RBC (04/02/2025 12:16 PM EDT) Scarlet Gamboa APRN BLOOD TRANSFUSION ORDERABLES Final Result * PERIPHERAL [...] POCT glucose meter (04/02/2025 8:31 AM EDT) POCT Glucose 127(H) 74 - 99 mg/dL 04/02/2025 8:33 AM EDT [facility] Comment:Accuracy of [...] Comment 04/02/2025 8:33 AM EDT [facility]ALTH[facility] Sports Medicine Trainer ID Martha Sena 04/02/2025 8:33 AM EDT [facility]ALTH[facility]ARE LAB Device ID [id number] 04/02/2025 8:33 AM EDT [facility] Specimen Type POC Capillary 04/02/2025 8:33 AM EDT [facility] Blood Capillary blood specimen / Unknown 04/02/2025 8:31 AM EDT 04/02/2025 8:33 AM EDT us Ирина Lopez MD LAB POINT OF CARE TE ST DOCKED DEVICE UNSOLICITED RESULTS Final Result Performing Organization Address City/[facility] Co de Phone Number [facility] [address] [place] [address] * Prepare Leukocyte Reduced RBC: 2 Units (04/02/2025 7:58 AM EDT) Product Code [id number] CH BLOO D BANK Dispense Status Transfused BLOOD BANK Blood Expiration Date [id number] BLOOD BANK Unit Number [id number] CH B LOOD BANK Product Blood Type 6200 BLOOD BANK Blood Type A+ CH BLOOD BANK Crossmatch Compatible BLOOD BANK Product Code [id number] BLOO D BANK Dispense Status Transfused BLOOD BANK Blood Expiration Date [id number] BLOOD BANK Unit Number [id number] CH B LOOD BANK Product Blood Type 6200 BLOOD BANK Blood Type A+ CH BLOOD BANK Crossmatch Compatible BLOOD BANK Other us Scarlet Gamboa APRN BLOOD BANK PRODUCT ORDERABLES Final Result Performing Organization Address [facility] Co de Phone Number BLOOD BANK [address] * Type and Screen (04/02/2025 6:36 AM [...] BLOOD BANK TEST ORDERABL ES Final Result [facility]LO[facility] BANK [address] [place] [address], [place] * XR Chest 1 View (04/02/2025 [...] signing this report, I, the attending physician, attdougthat I have personally reviewed the images/data for [...] - 99 mg/dL 04/02/2025 5:51 AM EDT [facility] BUN, Plasma 16 8 - 23 mg/dL 04/02/2025 5:51 AM EDT [facility] Creatinine, Plasma 1.47(H) 0.70 - 1.20 mg/dL 04/02/2025 5:51 AM EDT [facility] BUN/Creatinine Ratio 11 04/02/2025 5:51 AM EDT [facility] Sodium, Plasma 137 136 - 145 mmol/L 04/02/2025 5:51 AM EDT [facility] Potassium, Plasma 4.3 3.6 - 4.9 mmol/L 04/02/2025 5:51 AM EDT [facility] Chloride, Plasma 104 97 - 107 mmol/L 04/02/2025 5:51 AM EDT [facility] CO2, Plasma 24 22 - 29 mmol/L 04/02/2025 5:51 AM EDT [facility] Anion Gap 9 6 - 16 mmol/L 04/02/2025 5:51 AM EDT [facility] Total Calcium, Plasma 7.8(L) 8.9 - 10.2 mg/dL 04/02/2025 5:51 AM EDT [facility] Phosphorus, Plasma 2.6 2.5 - 4.5 mg/dL 04/02/2025 5:51 AM EDT [facility] Albumin, Plasma 2.8(L) 3.5 - 5.2 g/dL 04/02/2025 5:51 AM EDT [facility] eGFRcr 48.5 mL/min/1.7 3m*2 04/02/2025 5:51 AM EDT [facility] Comment:Reported eGFRcr in m L/min/1.73m2 is based the CKD-EPI 2020 equation that does not use a race coefficient. Blood Venous blood specimen / Unknown Venipuncture / Unknown 04/02/2025 4:32 AM EDT 04/02/2025 5:20 AM EDT Ирина Lopez MD LAB BLOOD ORDERABLES Final R esult Performing Organization Address City/[facility]/ZIP Co de Phone Number [facility] [address] [place] [address] * Magnesium, Plasma (04/02/2025 4:32 AM EDT) Magnesium, Plasma 1.9 1.9 - 2.4 mg/dL 04/02/2025 5:51 AM EDT [facility] Blood Venous blood specimen / Unknown Venipuncture / Unknown 04/02/2025 4:32 AM EDT 04/02/2025 5:20 AM EDT Ирина Lopez MD LAB BLOOD ORDERABLES Final R esult Performing Organization Address City/[facility]/ZIP Co de Phone Number [facility] [address] [place] [address] * (ABNORMAL) CBC W/O Differential (04/02/2025 4:32 AM EDT) WBC Count 6.22 3.70 - 10.30 10*3/uL LAB HEMATOLOGY METHOD 04/02/2025 5:31 AM EDT [facility] RBC Count 2.14(L) 4.60 - 6.10 10*6/uL LAB HEMATOLOGY METHOD 04/02/2025 5:31 AM EDT [facility] HGB 6.4(LL) 13.7 - 17.5 g/dL LAB HEMATOLOGY METHOD 04/02/2025 5:31 AM EDT [facility] HCT 19.0(LL) 40.0 - 51.0 % LAB HEMATOLOGY METHOD 04/02/2025 5:31 AM EDT [facility] Platelet Count 180 155 - 369 10*3/uL LAB HEMATOLOGY METHOD 04/02/2025 5:31 AM EDT [facility] MCV 89 79 - 98 fL LAB HEMATOLOGY METHOD 04/02/2025 5:31 AM EDT [facility] MCH 29.9 26.0 - 32.0 pg LAB HEMATOLOGY METHOD 04/02/2025 5:31 AM EDT [facility] MCHC 33.7 30.7 - 35.5 g/dL LAB HEMATOLOGY METHOD 04/02/2025 5:31 AM EDT [facility] RDW 14.0 11.5 - 14.5 % LAB HEMATOLOGY METHOD 04/02/2025 5:31 AM EDT [facility] MPV 9.9 8.8 - 12.5 fL LAB HEMATOLOGY METHOD 04/02/2025 5:31 AM EDT [facility] nRBC 0.0 <=0.0 per 100 WBCs LAB HEMATOLOGY METHOD 04/02/2025 5:31 AM EDT [facility] Blood Venous blood specimen / Unknown Venipuncture / Unknown 04/02/2025 4:32 AM EDT 04/02/2025 5:20 AM EDT us Ирина Lopez MD LAB BLOOD ORDERABLES Final R esult [facility] [address] [place] [address] * (ABNORMAL) POCT glucose meter (04/01/2025 8:14 PM EDT) [facility] POCT Glucose 156(H) 74 - 99 mg/dL 04/01/2025 8:16 PM EDT [facility] Comment:Accuracy of a glucos e result [...] for testing. Comment 04/01/2025 8:16 PM EDT [facility] Sports Medicine Trainer ID Jil Ruiz 8:16 PM EDT [facility] Device ID [id number] 04/01/2025 8:16 PM EDT [facility] Specimen Type POC Capillary 04/01/2025 8:16 PM EDT [facility] Blood Capillary blood specimen / Unknown 04/01/2025 8:14 PM EDT 04/01/2025 8:16 PM EDT Ирина Lopez MD LAB POINT OF CARE TE ST DOCKED DEVICE UNSOLICITED RESULTS Final Result Performing Organization Address City/[facility] Co de Phone Number [facility] [address] [place] [address] * (ABNORMAL) POCT glucose meter (04/01/2025 5:26 PM EDT) [facility] Signature POCT Glucose 154(H) 74 - 99 mg/dL [...] Comment 04/01/2025 5:29 PM EDT [facility] Sports Medicine Trainer ID Kenn Cabrera 04/01/2025 5:29 PM EDT [facility] Device ID [id number] 04/01/2025 5:29 PM EDT [facility] Specimen Type POC Capillary 04/01/2025 5:29 PM EDT [facility] Blood Capillary blood specimen / Unknown 04/01/2025 5:26 PM EDT 04/01/2025 5:29 PM EDT us Ирина Lopez MD LAB POINT OF CARE TE ST DOCKED DEVICE UNSOLICITED RESULTS Final Result Performing Organization Address City/[facility]/ZIP Co de Phone Number [facility] [address] [place] [address] * (ABNORMAL) POCT glucose meter (04/01/2025 12:49 PM EDT) [facility] POCT Glucose 162(H) 74 - 99 mg/dL 04/01/2025 12:51 PM EDT [facility] Comment:Accuracy of [...] for testing. Comment 04/01/2025 12:51 PM EDT [facility] Sports Medicine Trainer ID Kenn Cabrera 04/01/2025 12:51 PM EDT [facility] Device ID [id number] 04/01/2025 12:51 PM EDT [facility] Specimen Type POC Capillary 04/01/2025 12:51 PM EDT [facility] Blood Capillary blood specimen / Unknown 04/01/2025 12:49 PM EDT 04/01/2025 12:51 PM EDT us Ирина Lopez MD LAB POINT OF CARE TE ST DOCKED DEVICE UNSOLICITED RESULTS Final Result [facility] [address] [place] [address] * (ABNORMAL) POCT glucose meter (04/01/2025 8:43 AM EDT) [facility] POCT Glucose 155(H) 74 - 99 mg/dL [...] 04/01/2025 8:45 AM EDT [facility] Sports Medicine Trainer ID Kenn Cabrera 04/01/2025 8:45 AM EDT [facility] Device ID [id number] 04/01/2025 8:45 AM EDT [facility] Specimen Type POC Capillary 04/01/2025 8:45 AM EDT [facility] Blood Capillary blood specimen / Unknown 04/01/2025 8:43 AM EDT 04/01/2025 8:45 AM EDT Ирина Lopez MD LAB POINT OF CARE TE ST DOCKED DEVICE UNSOLICITED RESULTS Final Result [facility] [address] [place] [address] * XR Chest 1 View (04/01/2025 5:41 [...] - 99 mg/dL 04/01/2025 4:24 AM EDT [facility] BUN, Plasma 20 8 - 23 mg/dL 04/01/2025 4:24 AM EDT [facility] Creatinine, Plasma 1.67(H) 0.70 - 1.20 mg/dL 04/01/2025 4:24 AM EDT [facility] BUN/Creatinine Ratio 12 04/01/2025 4:24 AM EDT [facility] Sodium, Plasma 136 136 - 145 mmol/L 04/01/2025 4:24 AM EDT [facility] Potassium, Plasma 4.3 3.6 - 4.9 mmol/L 04/01/2025 4:24 AM EDT [facility] Chloride, Plasma 101 97 - 107 mmol/L 04/01/2025 4:24 AM EDT [facility] CO2, Plasma 24 22 - 29 mmol/L 04/01/2025 4:24 AM EDT [facility] Anion Gap 11 6 - 16 mmol/L 04/01/2025 4:24 AM EDT [facility] Total Calcium, Plasma 8.1(L) 8.9 - 10.2 mg/dL 04/01/2025 4:24 AM EDT [facility] Phosphorus, Plasma 2.5 2.5 - 4.5 mg/dL 04/01/2025 4:24 AM EDT [facility] Albumin, Plasma 3.0(L) 3.5 - 5.2 g/dL 04/01/2025 4:24 AM EDT [facility] eGFRcr 41.6 mL/min/1.7 3m*2 04/01/2025 4:24 AM EDT [facility] Comment:Reported eGFRcr in m L/min/1.73m2 is based the CKD-EPI 2020 equation that does not use a race coefficient. Blood Venous blood specimen / Unknown Venipuncture / Unknown 04/01/2025 2:12 AM EDT 04/01/2025 3:21 AM EDT Ирина Lopez MD LAB BLOOD ORDERABLES Final R esult Performing Organization Address City/[facility]/ZIP Co de Phone Number [facility] [address] [place] [address] * Magnesium, Plasma (04/01/2025 2:12 AM EDT) Magnesium, Plasma 2.4 1.9 - 2.4 mg/dL 04/01/2025 4:24 AM EDT [facility] Blood Venous blood specimen / Unknown Venipuncture / Unknown 04/01/2025 2:12 AM EDT 04/01/2025 3:21 AM EDT Ирина Lopez MD LAB BLOOD ORDERABLES Final R esult Performing Organization Address City/[facility]/ZIP Co de Phone Number [facility] [address] [place] [address] * (ABNORMAL) CBC W/O Differential (04/01/2025 2:12 AM EDT) WBC Count 6.25 3.70 - 10.30 10*3/uL LAB HEMATOLOGY METHOD 04/01/2025 3:29 AM EDT [facility] RBC Count 2.59(L) 4.60 - 6.10 10*6/uL LAB HEMATOLOGY METHOD 04/01/2025 3:29 AM EDT [facility] HGB 7.6(L) 13.7 - 17.5 g/dL LAB HEMATOLOGY METHOD 04/01/2025 3:29 AM EDT [facility] HCT 22.9(L) 40.0 - 51.0 % LAB HEMATOLOGY METHOD 04/01/2025 3:29 AM EDT [facility] Platelet Count 163 155 - 369 10*3/uL LAB HEMATOLOGY METHOD 04/01/2025 3:29 AM EDT [facility] MCV 88 79 - 98 fL LAB HEMATOLOGY METHOD 04/01/2025 3:29 AM EDT [facility] MCH 29.3 26.0 - 32.0 pg LAB HEMATOLOGY METHOD 04/01/2025 3:29 AM EDT [facility] MCHC 33.2 30.7 - 35.5 g/dL LAB HEMATOLOGY METHOD 04/01/2025 3:29 AM EDT [facility] RDW 14.1 11.5 - 14.5 % LAB HEMATOLOGY METHOD 04/01/2025 3:29 AM EDT [facility] MPV 10.0 8.8 - 12.5 fL LAB HEMATOLOGY METHOD 04/01/2025 3:29 AM EDT [facility] nRBC 0.0 <=0.0 per 100 WBCs LAB HEMATOLOGY METHOD 04/01/2025 3:29 AM EDT [facility] Blood Venous blood specimen / Unknown Venipuncture / Unknown 04/01/2025 2:12 AM EDT 04/01/2025 3:21 AM EDT us Ирина Lopez MD LAB BLOOD ORDERABLES Final R esult [facility] [address] [place] [address] * (ABNORMAL) POCT glucose meter (03/31/2025 8:19 PM EDT) [facility] POCT Glucose 237(H) 74 - 99 mg/dL [...] Comment 03/31/2025 8:21 PM EDT [facility] Sports Medicine Trainer ID ShkrabaJil 8:21 PM EDT [facility] Device ID [id number] 03/31/2025 8:21 PM EDT [facility] Specimen Type POC Capillary 03/31/2025 8:21 PM EDT [facility] Blood Capillary blood specimen / Unknown 03/31/2025 8:19 PM EDT 03/31/2025 8:21 PM EDT Ирина Lopez MD LAB POINT OF CARE TE ST DOCKED DEVICE UNSOLICITED RESULTS Final Result Performing Organization Address [facility] Co de Phone Number [facility] [address] [place] [address] * (ABNORMAL) POCT glucose meter (03/31/2025 5:24 PM EDT) POCT Glucose 194(H) 74 - 99 mg/dL [...] 03/31/2025 5:26 PM EDT [facility] Sports Medicine Trainer ID Kenn Cabrera 03/31/2025 5:26 PM EDT [facility] Device ID [id number] 03/31/2025 5:26 PM EDT [facility] Specimen Type POC Capillary 03/31/2025 5:26 PM EDT [facility] Blood Capillary blood specimen / Unknown 03/31/2025 5:24 PM EDT 03/31/2025 5:26 PM EDT us Ирина Lopez MD LAB POINT OF CARE TE ST DOCKED DEVICE UNSOLICITED RESULTS Final Result Performing Organization Address City/[facility] Co de Phone Number [facility] [address] [place] [address] * Transfuse RBC (03/31/2025 3:56 PM EDT) us Scarlet Gamboa RUG MEASURER BLOOD TRANSFUSION ORDERABLES Final Result * Transfuse RBC: 1 Units (03/31/2025 3:56 PM EDT) us Scarlet Gamboa RUG MEASURER BLOOD TRANSFUSION ORDERABLES Final Result * XR [...] Dagoberto Forrester MD on 03/31/2025 1:30 PM Scarlet Gamboa APRN IMG XR PROCEDURES Final Resul t * (ABNORMAL) POCT glucose meter (03/31/2025 12:31 PM EDT) POCT Glucose 245(H) 74 - 99 mg/dL 03/31/2025 12:34 PM EDT [facility] Comment:Accuracy of [...] for testing. Comment 03/31/2025 12:34 PM EDT [facility] Sports Medicine Trainer ID Kenn Cabrera 03/31/2025 12:34 PM EDT [facility] Device ID [id number] 03/31/2025 12:34 PM EDT [facility] Specimen Type POC Capillary 03/31/2025 12:34 PM EDT [facility] Blood Capillary blood specimen / Unknown 03/31/2025 12:31 PM EDT 03/31/2025 12:34 PM EDT us Ирина Lopez MD LAB POINT OF CARE TE ST DOCKED DEVICE UNSOLICITED RESULTS Final Result Performing Organization Address City/[facility] Co de Phone Number [facility] [address] [place] [address] * (ABNORMAL) POCT glucose meter (03/31/2025 9:08 AM EDT) [facility] POCT Glucose 173(H) 74 - 99 mg/dL 03/31/2025 9:09 AM EDT [facility] Comment:Accuracy of a [...] for testing. Comment 03/31/2025 9:09 AM EDT [facility] Sports Medicine Trainer ID Kenn Cabrera 03/31/2025 9:09 AM EDT [facility] LAB Device ID [id number] 03/31/2025 9:09 AM EDT [facility] Specimen Type POC Capillary 03/31/2025 9:09 AM EDT [facility] Blood Capillary blood specimen / Unknown 03/31/2025 9:08 AM EDT 03/31/2025 9:09 AM EDT us Ирина Lopez MD LAB POINT OF CARE TE ST DOCKED DEVICE UNSOLICITED RESULTS Final Result Performing Organization Address City/[facility] Co de Phone Number [facility] [address] [place] [address] * Prepare Leukocyte Reduced RBC: 1 Units (03/31/2025 9:02 AM EDT) [facility] Product Code [id number] CH BLOO D BANK Dispense Status Transfused BLOOD BANK Blood Expiration Date [id number] BLOOD BANK Unit Number [id number] CH B LOOD BANK Product Blood Type 6200 BLOOD BANK Blood Type A+ BLOOD BANK Crossmatch Compatible BLOOD BANK Other us Scarlet Gamboa RUG MEASURER BLOOD BANK PRODUCT ORDERABLES Final Result BLOOD BANK [address] [place] [address], [place] * XR Chest 1 View (03/31/2025 6:04 [...] - 99 mg/dL 03/31/2025 3:13 AM EDT [facility] BUN, Plasma 21 8 - 23 mg/dL 03/31/2025 3:13 AM EDT [facility] Creatinine, Plasma 1.59(H) 0.70 - 1.20 mg/dL 03/31/2025 3:13 AM EDT [facility] BUN/Creatinine Ratio 13 03/31/2025 3:13 AM EDT [facility] Sodium, Plasma 133(L) 136 - 145 mmol/L 03/31/2025 3:13 AM EDT [facility] Potassium, Plasma 3.6 3.6 - 4.9 mmol/L 03/31/2025 3:13 AM EDT [facility] Chloride, Plasma 102 97 - 107 mmol/L 03/31/2025 3:13 AM EDT [facility] CO2, Plasma 19(L) 22 - 29 mmol/L 03/31/2025 3:13 AM EDT [facility] Anion Gap 12 6 - 16 mmol/L 03/31/2025 3:13 AM EDT [facility] Total Calcium, Plasma 7.0(L) 8.9 - 10.2 mg/dL 03/31/2025 3:13 AM EDT [facility] Phosphorus, Plasma 3.5 2.5 - 4.5 mg/dL 03/31/2025 3:13 AM EDT [facility] Albumin, Plasma 2.9(L) 3.5 - 5.2 g/dL 03/31/2025 3:13 AM EDT [facility] eGFRcr 44.2 mL/min/1.7 3m*2 03/31/2025 3:13 AM EDT [facility] Comment:Reported eGFRcr in m L/min/1.73m2 is based the CKD-EPI 2020 equation that does not use a race coefficient. Blood Venous blood specimen / Unknown Venipuncture / Unknown 03/31/2025 2:22 AM EDT 03/31/2025 2:41 AM EDT us Ирина Lopez MD LAB BLOOD ORDERABLES Final R esult [facility] [address] [place] [address] * (ABNORMAL) Magnesium, Plasma (03/31/2025 2:22 AM EDT) [facility] Magnesium, Plasma 3.1(H) 1.9 - 2.4 mg/dL 03/31/2025 3:13 AM EDT [facility] Blood Venous blood specimen / Unknown Venipuncture / Unknown 03/31/2025 2:22 AM EDT 03/31/2025 2:41 AM EDT us Ирина Lopez MD LAB BLOOD ORDERABLES Final R esult Performing Organization Address City/[facility]/ZIP Co de Phone Number [facility] [address] [place] [address] * (ABNORMAL) CBC W/O Differential (03/31/2025 2:22 AM EDT) [facility] WBC Count 7.84 3.70 - 10.30 10*3/uL LAB HEMATOLOGY METHOD 03/31/2025 2:51 AM EDT [facility] RBC Count 2.65(L) 4.60 - 6.10 10*6/uL LAB HEMATOLOGY METHOD 03/31/2025 2:51 AM EDT [facility] HGB 8.0(L) 13.7 - 17.5 g/dL LAB HEMATOLOGY METHOD 03/31/2025 2:51 AM EDT [facility] HCT 24.3(L) 40.0 - 51.0 % LAB HEMATOLOGY METHOD 03/31/2025 2:51 AM EDT [facility] Platelet Count 155 155 - 369 10*3/uL LAB HEMATOLOGY METHOD 03/31/2025 2:51 AM EDT [facility] MCV 92 79 - 98 fL LAB HEMATOLOGY METHOD 03/31/2025 2:51 AM EDT [facility] MCH 30.2 26.0 - 32.0 pg LAB HEMATOLOGY METHOD 03/31/2025 2:51 AM EDT [facility] MCHC 32.9 30.7 - 35.5 g/dL LAB HEMATOLOGY METHOD 03/31/2025 2:51 AM EDT [facility] RDW 13.2 11.5 - 14.5 % LAB HEMATOLOGY METHOD 03/31/2025 2:51 AM EDT [facility] MPV 9.6 8.8 - 12.5 fL LAB HEMATOLOGY METHOD 03/31/2025 2:51 AM EDT [facility] nRBC 0.0 <=0.0 per 100 WBCs LAB HEMATOLOGY METHOD 03/31/2025 2:51 AM EDT [facility] Blood Venous blood specimen / Unknown Venipuncture / Unknown 03/31/2025 2:22 AM EDT 03/31/2025 2:41 AM EDT us Ирина Lopez MD LAB BLOOD ORDERABLES Final R esult [facility] [address] [place] [address] * (ABNORMAL) POCT glucose meter (03/30/2025 8:28 PM EDT) POCT Glucose 206(H) 74 - 99 mg/dL 03/30/2025 8:30 PM EDT [facility] Comment:Accuracy of [...] Comment 03/30/2025 8:30 PM EDT [facility] Sports Medicine Trainer ID Laughlin, Danuta 03/30/2025 8:30 PM EDT [facility] Device ID [id number] 03/30/2025 8:30 PM EDT [facility] Specimen Type POC Capillary 03/30/2025 8:30 PM EDT [facility] Blood Capillary blood specimen / Unknown 03/30/2025 8:28 PM EDT 03/30/2025 8:30 PM EDT us Ирина Lopez MD LAB POINT OF CARE TE ST DOCKED DEVICE UNSOLICITED RESULTS Final Result [facility] [address] [place] [address] * (ABNORMAL) POCT glucose meter (03/30/2025 5:20 [...] 03/30/2025 5:21 PM EDT [facility] Sports Medicine Trainer ID Halima Ervin 03/30/20 5:21 PM EDT [facility] Device ID [id number] 03/30/2025 5:21 PM EDT [facility] Specimen Type POC Capillary 03/30/2025 5:21 PM EDT [facility] Blood Capillary blood specimen / Unknown 03/30/2025 5:20 PM EDT 03/30/2025 5:21 PM EDT Ирина Lopez MD LAB POINT OF CARE TE ST DOCKED DEVICE UNSOLICITED RESULTS Final Result Performing Organization Address [facility] de Phone Number [facility] [address] [place] [address] * XR Chest 1 View (03/30/2025 4:46 [...] on 03/30/2025 5:01 PM us Scarlet Gamboa RUG MEASURER IMG XR PROCEDURES Final Resul t * (ABNORMAL) POCT glucose meter (03/30/2025 12:48 PM EDT) POCT Glucose 219(H) 74 - 99 mg/dL 03/30/2025 12:49 PM EDT [facility] Comment:Accuracy of [...] for testing. Comment 03/30/2025 12:49 PM EDT [facility] Sports Medicine Trainer ID Cata Gibbs 12:49 PM EDT [facility] Device ID [id number] 03/30/2025 12:49 PM EDT [facility] Specimen Type POC Venous 03/30/2025 12:49 PM EDT [facility] Blood Venous blood specimen / Unknown 03/30/2025 12:48 PM EDT 03/30/2025 12:49 PM EDT us Ирина Lopez MD LAB POINT OF CARE TE ST DOCKED DEVICE UNSOLICITED RESULTS Final Result [facility] [address] [place] [address] * (ABNORMAL) Magnesium, Plasma (03/30/2025 10:57 AM EDT) Magnesium, Plasma 3.1(H) 1.9 - 2.4 mg/dL 03/30/2025 11:49 AM EDT [facility] Blood Venous blood specimen / Unknown Venipuncture / Unknown 03/30/2025 10:57 AM EDT 03/30/2025 11:16 AM EDT us Scarlet Gamboa RUG MEASURER LAB BLOOD ORDERABLES Final Re sult [facility] [address] [place] [address] * (ABNORMAL) Renal function panel (03/30/2025 10:57 AM EDT) Glucose, Plasma 236(H) 74 - 99 mg/dL 03/30/2025 11:49 AM EDT [facility] BUN, Plasma 20 8 - 23 mg/dL 03/30/2025 11:49 AM EDT [facility] Creatinine, Plasma 1.64(H) 0.70 - 1.20 mg/dL 03/30/2025 11:49 AM EDT [facility] BUN/Creatinine Ratio 12 03/30/2025 11:49 AM EDT [facility] Sodium, Plasma 132(L) 136 - 145 mmol/L 03/30/2025 11:49 AM EDT [facility] Potassium, Plasma 4.6 3.6 - 4.9 mmol/L 03/30/2025 11:49 AM EDT [facility] Chloride, Plasma 100 97 - 107 mmol/L 03/30/2025 11:49 AM EDT [facility] CO2, Plasma 21(L) 22 - 29 mmol/L 03/30/2025 11:49 AM EDT [facility] Anion Gap 11 6 - 16 mmol/L 03/30/2025 11:49 AM EDT [facility] Total Calcium, Plasma 7.4(L) 8.9 - 10.2 mg/dL 03/30/2025 11:49 AM EDT [facility] Phosphorus, Plasma 2.6 2.5 - 4.5 mg/dL 03/30/2025 11:49 AM EDT [facility] Albumin, Plasma 3.0(L) 3.5 - 5.2 g/dL 03/30/2025 11:49 AM EDT [facility] eGFRcr 42.5 mL/min/1.7 3m*2 03/30/2025 11:49 AM EDT [facility] Comment:Reported eGFRcr in m L/min/1.73m2 is based the CKD-EPI 2020 equation that does not use a race coefficient. Blood Venous blood specimen / Unknown Venipuncture / Unknown 03/30/2025 10:57 AM EDT 03/30/2025 11:16 AM EDT Ирина Lopez MD LAB BLOOD ORDERABLES Final R esult [facility] [address] [place] [address] * (ABNORMAL) POCT glucose meter (03/30/2025 10:56 AM EDT) POCT Glucose 252(H) 74 - 99 mg/dL 03/30/2025 11:00 AM EDT [facility] Comment:Accuracy of a glucos e result [...] for testing. Comment 03/30/2025 11:00 AM EDT [facility] Sports Medicine Trainer ID Cata Gibbs 11:00 AM EDT [facility] Device ID [id number] 03/30/2025 11:00 AM EDT [facility] Specimen Type POC Venous 03/30/2025 11:00 AM EDT [facility] Blood Venous blood specimen / Unknown 03/30/2025 10:56 AM EDT 03/30/2025 11:00 AM EDT Ирина Lopez MD LAB POINT OF CARE TE ST DOCKED DEVICE UNSOLICITED RESULTS Final Result Performing Organization Address [facility] Co de Phone Number [facility] [address] [place] [address] * (ABNORMAL) POCT glucose meter (03/30/2025 9:38 AM EDT) [facility] POCT Glucose 271(H) 74 - 99 [...] for testing. Comment 03/30/2025 9:39 AM EDT [facility] Sports Medicine Trainer ID Cata Gibbs 9:39 AM EDT [facility] Device ID [id number] 03/30/2025 9:39 AM EDT [facility] Specimen Type POC Venous 03/30/2025 9:39 AM EDT [facility] Blood Venous blood specimen / Unknown 03/30/2025 9:38 AM EDT 03/30/2025 9:39 AM EDT Ирина Lopez MD LAB POINT OF CARE TE ST DOCKED DEVICE UNSOLICITED RESULTS Final Result Performing Organization Address [facility] Co de Phone Number [facility] [address] [place] [address] * ECG Adult (03/30/2025 8:37 AM EDT) [facility] EKG DIAGNOSIS CLASS Abnormal MUSE ECG Ventricular Rate 81 BPM MUSE ECG Atrial Rate 81 BPM MUSE ECG WV Interval 170 ms MUSE ECG QRSD Interval 104 ms MUSE ECG QT Interval 416 ms MUSE ECG QTC Interval 483 ms MUSE ECG P [place] 39 degrees MUSE ECG R [place] -51 degrees MUSE ECG T Wave [place] -15 degrees MUSE ECG Diagnosis Poor data [...] MUSE ECG Diagnosis Confirmed by Carey Michel ([id number]) on 03/30/2025 9:40:26 AM MUSE ECG 03/30/2025 8:37 AM EDT 03/30/2025 9:40 AM EDT Ирина Lopez MD ECG ORDERABLES Final Result Performing Organization Address City/[facility]/ZIP Co de Phone Number MUSE ECG * (ABNORMAL) POCT glucose meter (03/30/2025 8:10 AM EDT) POCT Glucose 164(H) 74 - 99 mg/dL 03/30/2025 8:11 AM EDT [facility] Comment:Accuracy of a [...] for testing. Comment 03/30/2025 8:11 AM EDT [facility] Sports Medicine Trainer ID Cata Gibbs 8:11 AM EDT [facility] Device ID [id number] 03/30/2025 8:11 AM EDT [facility] Specimen Type POC Venous 03/30/2025 8:11 AM EDT [facility] Blood Venous blood specimen / Unknown 03/30/2025 8:10 AM EDT 03/30/2025 8:11 AM EDT Ирина Lopez MD LAB POINT OF CARE TE ST DOCKED DEVICE UNSOLICITED RESULTS Final Result Performing Organization Address City/[facility]/ZIP Co de Phone Number [facility] [address] [place] [address] * (ABNORMAL) Renal function panel (03/30/2025 4:05 AM EDT) Glucose, Plasma 207(H) 74 - 99 mg/dL 03/30/2025 4:40 AM EDT [facility] BUN, Plasma 18 8 - 23 mg/dL 03/30/2025 4:40 AM EDT [facility] Creatinine, Plasma 1.41(H) 0.70 - 1.20 mg/dL 03/30/2025 4:40 AM EDT [facility] BUN/Creatinine Ratio 13 03/30/2025 4:40 AM EDT [facility] Sodium, Plasma 134(L) 136 - 145 mmol/L 03/30/2025 4:40 AM EDT [facility] Potassium, Plasma 5.8(H) 3.6 - 4.9 mmol/L 03/30/2025 4:40 AM EDT [facility] Chloride, Plasma 101 97 - 107 mmol/L 03/30/2025 4:40 AM EDT [facility] CO2, Plasma 20(L) 22 - 29 mmol/L 03/30/2025 4:40 AM EDT [facility] Anion Gap 13 6 - 16 mmol/L 03/30/2025 4:40 AM EDT [facility] Total Calcium, Plasma 7.7(L) 8.9 - 10.2 mg/dL 03/30/2025 4:40 AM EDT [facility] Phosphorus, Plasma 3.0 2.5 - 4.5 mg/dL 03/30/2025 4:40 AM EDT [facility] Albumin, Plasma 3.2(L) 3.5 - 5.2 g/dL 03/30/2025 4:40 AM EDT [facility] eGFRcr 51.0 mL/min/1.7 3m*2 03/30/2025 4:40 AM EDT [facility] Comment:Reported eGFRcr in m L/min/1.73m2 is based the CKD-EPI 2020 equation that does not use a race coefficient. Blood Arterial blood specimen / Unknown Arterial Puncture / Unknown 03/30/2025 4:05 AM EDT 03/30/2025 4:11 AM EDT us Ирина Lopez MD LAB BLOOD ORDERABLES Final R esult [facility] [address] [place] [address] * (ABNORMAL) Magnesium (03/30/2025 4:05 AM EDT) Pathologist [facility] Magnesium, Plasma 1.4(L) 1.9 - 2.4 mg/dL 03/30/2025 4:40 AM EDT [facility] Blood Arterial blood specimen / Unknown Arterial Puncture / Unknown 03/30/2025 4:05 AM EDT 03/30/2025 4:11 AM EDT us Ирина Lopez MD LAB BLOOD ORDERABLES Final R esult [facility] [address] [place] [address] * (ABNORMAL) CBC W/O Differential (03/30/2025 4:05 AM EDT) Pathologist [facility] WBC Count 9.64 3.70 - 10.30 10*3/uL LAB HEMATOLOGY METHOD 03/30/2025 4:19 AM EDT [facility] RBC Count 2.91(L) 4.60 - 6.10 10*6/uL LAB HEMATOLOGY METHOD 03/30/2025 4:19 AM EDT [facility] HGB 8.8(L) 13.7 - 17.5 g/dL LAB HEMATOLOGY METHOD 03/30/2025 4:19 AM EDT [facility] HCT 25.8(L) 40.0 - 51.0 % LAB HEMATOLOGY METHOD 03/30/2025 4:19 AM EDT [facility] Platelet Count 190 155 - 369 10*3/uL LAB HEMATOLOGY METHOD 03/30/2025 4:19 AM EDT [facility] MCV 89 79 - 98 fL LAB HEMATOLOGY METHOD 03/30/2025 4:19 AM EDT [facility] MCH 30.2 26.0 - 32.0 pg LAB HEMATOLOGY METHOD 03/30/2025 4:19 AM EDT [facility] MCHC 34.1 30.7 - 35.5 g/dL LAB HEMATOLOGY METHOD 03/30/2025 4:19 AM EDT [facility] RDW 12.6 11.5 - 14.5 % LAB HEMATOLOGY METHOD 03/30/2025 4:19 AM EDT [facility] MPV 9.6 8.8 - 12.5 fL LAB HEMATOLOGY METHOD 03/30/2025 4:19 AM EDT [facility] nRBC 0.0 <=0.0 per 100 WBCs LAB HEMATOLOGY METHOD 03/30/2025 4:19 AM EDT [facility] Blood Arterial blood specimen / Unknown Arterial Puncture / Unknown 03/30/2025 4:05 AM EDT 03/30/2025 4:11 AM EDT us Ирина Lopez MD LAB BLOOD ORDERABLES Final R esult [facility] [address] [place] [address] * XR Chest 1 View (03/30/2025 1:35 [...] Jaqueline Delacruz MD on 03/30/2025 6:07 AM Ирина Lopez MD IMG XR PROCEDURES Final [...] - 1.20 mg/dL 03/29/2025 8:39 PM EDT [facility] eGFRcr 70.2 mL/min/1.7 3m*2 03/29/2025 8:39 PM EDT [facility] Comment:Reported eGFRcr in m L/min/1.73m2 is based the CKD-EPI 2020 equation that does not use a race coefficient. Blood Arterial blood specimen / Unknown Arterial Puncture / Unknown 03/29/2025 7:58 PM EDT 03/29/2025 8:05 PM EDT us Ирина Lopez MD LAB BLOOD ORDERABLES Final R esult [facility] [address] [place] [address] * (ABNORMAL) Renal Function Panel, Plasma (03/29/2025 7:58 PM EDT) Glucose, Plasma 183(H) 74 - 99 mg/dL 03/29/2025 8:39 PM EDT [facility] BUN, Plasma 13 8 - 23 mg/dL 03/29/2025 8:39 PM EDT [facility] Creatinine, Plasma 1.08 0.70 - 1.20 mg/dL 03/29/2025 8:39 PM EDT [facility] BUN/Creatinine Ratio 12 03/29/2025 8:39 PM EDT [facility] Sodium, Plasma 136 136 - 145 mmol/L 03/29/2025 8:39 PM EDT [facility] Potassium, Plasma 4.4 3.6 - 4.9 mmol/L 03/29/2025 8:39 PM EDT [facility] Chloride, Plasma 104 97 - 107 mmol/L 03/29/2025 8:39 PM EDT [facility] CO2, Plasma 21(L) 22 - 29 mmol/L 03/29/2025 8:39 PM EDT [facility] Anion Gap 11 6 - 16 mmol/L 03/29/2025 8:39 PM EDT [facility] Total Calcium, Plasma 7.9(L) 8.9 - 10.2 mg/dL 03/29/2025 8:39 PM EDT [facility] Phosphorus, Plasma 2.9 2.5 - 4.5 mg/dL 03/29/2025 8:39 PM EDT [facility] Albumin, Plasma 3.2(L) 3.5 - 5.2 g/dL 03/29/2025 8:39 PM EDT [facility] eGFRcr 70.2 mL/min/1.7 3m*2 03/29/2025 8:39 PM EDT [facility] Comment:Reported eGFRcr in m L/min/1.73m2 is based the CKD-EPI 2020 equation that does not use a race coefficient. Blood Arterial blood specimen / Unknown Arterial Puncture / Unknown 03/29/2025 7:58 PM EDT 03/29/2025 8:05 PM EDT Ирина Lopez MD LAB BLOOD ORDERABLES Final R esult Performing Organization Address City/[facility]/ZIP Co de Phone Number [facility] [address] [place] [address] * (ABNORMAL) Magnesium, Plasma (03/29/2025 7:58 PM EDT) Magnesium, Plasma 1.3(L) 1.9 - 2.4 mg/dL 03/29/2025 8:39 PM EDT [facility] Blood Arterial blood specimen / Unknown Arterial Puncture / Unknown 03/29/2025 7:58 PM EDT 03/29/2025 8:05 PM EDT Ирина Lopez MD LAB BLOOD ORDERABLES Final R esult [facility] [address] [place] [address] * Fibrinogen (03/29/2025 7:58 PM EDT) Fibrinogen, Quantitative (Clottable) 294 208 - 459 mg/dL LAB COAGULATION METHOD 03/29/2025 8:38 PM EDT [facility] Blood Arterial blood specimen / Unknown Arterial Puncture / Unknown 03/29/2025 7:58 PM EDT 03/29/2025 8:05 PM EDT Kiana Dakota Gusman PNEUMATIC TOOL OPERATOR LAB BLOOD ORDERABLES Final R esult Performing Organization Address City/[facility]/ZIP Co de Phone Number [facility] [address] [place] [address] * Protime-INR (03/29/2025 7:58 PM EDT) Prothrombin Time 13.8 12.0 - 14.3 sec LAB COAGULATION METHOD 03/29/2025 8:38 PM EDT [facility] INR 1.0 0.9 - 1.1 LAB COAGULATION METHOD 03/29/2025 8:38 PM EDT [facility] Blood Arterial blood specimen / Unknown Arterial Puncture / Unknown 03/29/2025 7:58 PM EDT 03/29/2025 8:05 PM EDT Narrative [facility] - 03/29/2025 8:38 PM EDT OPTIMAL INR RANGES FOR PATIENT ON ORAL ANTICOAGULANT THERAPY Prevention of venous thromboembolism INR 2.0 to 3.0 In patients with heart disease: Atrial fibrillation INR 2.0 to 3.0 Valvular heart disease INR 2.0 to 3.0 Tissue heart valves INR 2.0 to 3.0 Mechanical prosthetic valves INR 2.5 to 3.5 Prevention of recurrent [facility] INR 2.5 to 3.5 us Kiana Gusman CRNA LAB BLOOD ORDERABLES Final R esult Performing Organization Address City/[facility]/ZIP Co de Phone Number [facility] [address] [place] [address] * (ABNORMAL) CBC and differential (03/29/2025 7:58 PM EDT) WBC Count 8.18 3.70 - 10.30 10*3/uL LAB HEMATOLOGY METHOD 03/29/2025 8:29 PM EDT [facility] RBC Count 3.11(L) 4.60 - 6.10 10*6/uL LAB HEMATOLOGY METHOD 03/29/2025 8:29 PM EDT [facility] HGB 9.2(L) 13.7 - 17.5 g/dL LAB HEMATOLOGY METHOD 03/29/2025 8:29 PM EDT [facility] HCT 27.7(L) 40.0 - 51.0 % LAB HEMATOLOGY METHOD 03/29/2025 8:29 PM EDT [facility] Platelet Count 174 155 - 369 10*3/uL LAB HEMATOLOGY METHOD 03/29/2025 8:29 PM EDT [facility] MCV 89 79 - 98 fL LAB HEMATOLOGY METHOD 03/29/2025 8:29 PM EDT [facility] MCH 29.6 26.0 - 32.0 pg LAB HEMATOLOGY METHOD 03/29/2025 8:29 PM EDT [facility] MCHC 33.2 30.7 - 35.5 g/dL LAB HEMATOLOGY METHOD 03/29/2025 8:29 PM EDT [facility] RDW 12.6 11.5 - 14.5 % LAB HEMATOLOGY METHOD 03/29/2025 8:29 PM EDT [facility] MPV 9.3 8.8 - 12.5 fL LAB HEMATOLOGY METHOD 03/29/2025 8:29 PM EDT [facility] nRBC 0.0 <=0.0 per 100 WBCs LAB HEMATOLOGY METHOD 03/29/2025 8:29 PM EDT [facility] Differential Type Automated LAB HEMATOLOGY METHOD 03/29/2025 8:29 PM EDT [facility] Neutrophils % 86 % LAB HEMATOLOGY METHOD 03/29/2025 8:29 PM EDT [facility] Lymphocytes % 9 % LAB HEMATOLOGY METHOD 03/29/2025 8:29 PM EDT [facility] Monocytes % 5 % LAB HEMATOLOGY METHOD 03/29/2025 8:29 PM EDT [facility] Eosinophils % 0 % LAB HEMATOLOGY METHOD 03/29/2025 8:29 PM EDT [facility] Basophils % 0 % LAB HEMATOLOGY METHOD 03/29/2025 8:29 PM EDT [facility] Immature Granulocytes % 0 % LAB HEMATOLOGY METHOD 03/29/2025 8:29 PM EDT [facility] Neutrophils Absolute 7.00(H) 1.60 - 6.10 10*3/uL LAB HEMATOLOGY METHOD 03/29/2025 8:29 PM EDT [facility] Lymphocytes Absolute 0.71(L) 1.20 - 3.90 10*3/uL LAB HEMATOLOGY METHOD 03/29/2025 8:29 PM EDT [facility] Monocytes Absolute 0.40 0.30 - 0.90 10*3/uL LAB HEMATOLOGY METHOD 03/29/2025 8:29 PM EDT [facility] Eosinophils Absolute 0.02 0.00 - 0.50 10*3/uL LAB HEMATOLOGY METHOD 03/29/2025 8:29 PM EDT [facility] Basophils Absolute 0.02 0.00 - 0.10 10*3/uL LAB HEMATOLOGY METHOD 03/29/2025 8:29 PM EDT [facility] Immature Granulocytes Absolute 0.03 0.00 - 0.06 10*3/uL LAB HEMATOLOGY METHOD 03/29/2025 8:29 PM EDT [facility] Blood Arterial blood specimen / Unknown Arterial Puncture / Unknown 03/29/2025 7:58 PM EDT 03/29/2025 8:04 PM EDT Narrative [facility] - 03/29/2025 8:29 PM EDT Therapeutic decision making should be based on absolute values, rather than percentages. Kiana Gusman [facility] BLOOD ORDERABLES Final R esult [facility] [address] [place] [address] * (ABNORMAL) POCT glucose meter (03/29/2025 7:43 PM EDT) POCT Glucose 153(H) 74 - 99 mg/dL 03/29/2025 7:45 PM EDT [facility] Comment:Accuracy of a [...] Comment 03/29/2025 7:45 PM EDT [facility] Sports Medicine Trainer ID Radha Slater 03/29/20 7:45 PM EDT [facility] Device ID [id number] 03/29/2025 7:45 PM EDT [facility] Specimen Type POC Capillary 03/29/2025 7:45 PM EDT [facility] Blood Capillary blood specimen / Unknown 03/29/2025 7:43 PM EDT 03/29/2025 7:45 PM EDT us Ирина Lopez MD LAB POINT OF CARE TE ST DOCKED DEVICE UNSOLICITED RESULTS Final Result [facility] [address] [place] [address] * Surgical Pathology Exam (03/29/2025 5:10 PM EDT) Case Report Surgical Pathology Case: [id number] Authorizing Provider: Ирина Lopez MD Collected: 03/29/2025 1716 [facility] Received: 03/30/2025 0755 Pathologist: Cindy Miller MD Intraop: Elizabeth Gibbs [...] lobe G) - Other (specify site), lipoma 2:45 PM EDT [facility] Final Diagnosis A. LUNG, BRONCHIAL [...] (0/2). G. SOFT TISSUE, EXCISION: - LIPOMA. 06/23/202 5 2:[address] [facility] at 1445 EDT Synoptic Checklist LUNG LUNG [...] pN Category: pN0 5 2:45 PM EDT [facility] Clinical Information Non-small cell cancer of left lung 5 2:45 PM EDT [facility] Intraoperative Consultation A. BRONCHIAL MARGIN FSA: No tumor seen. Todd Gibbs MD. 03/29/2025 @ 1745. 5 2:45 PM EDT [facility] Special and Immunohistochemical Stains Special Stain: [id number] Elastic Trichrome: Demonstrates visceral pleural invasion F8-2 Elastic Trichrome: Demonstrates visceral pleural invasion All controls show appropriate reactivity. All immunohistochemis try, in situ hybridization, and histochemical tests were developed by and are performed at the [facility], [address] [place] [address]. All tests reported here, except those addressing [...] on decalcified specimens. 5 2:45 PM EDT [facility] Gross Description A. BRONCHIAL MARGIN The [...] 0.3-0.6 cm in greatest dimension are identified. [employer] sections are submitted as follows: F1: Bronchial [...] areas of hemorrhage or necrosis are identified. [employer] sections are submitted in cassettes G1-G3. Cold Time: 13h 05m SWATI Wong ([facility]) 2:45 PM EDT [facility] Note: A resident was involved in the service. I attest I examined the relevant preparations for the specimens and confirmed the diagnosis or interpretation. 2:45 PM EDT [facility] Tissue Structure of lymph node [...] MD LAB PATHOLOGY ORDERABLES Fin al Result [facility] [address] [place] [address] * (ABNORMAL) Blood gas panel, arterial (03/29/2025 4:05 PM EDT) pH, Arterial 7.38 7.31 - 7.42 LAB HEMATOLOGY METHOD 03/29/2025 4:13 PM EDT [facility] pCO2, Arterial 45 32 - 45 mmHg LAB HEMATOLOGY METHOD 03/29/2025 4:13 PM EDT [facility] pO2, Arterial 216 >70 mmHg LAB HEMATOLOGY METHOD 03/29/2025 4:13 PM EDT [facility] SO2, Measured, Arterial 100(H) 94 - 98 % LAB HEMATOLOGY METHOD 03/29/2025 4:13 PM EDT [facility] Base Excess, Arterial 1.2 -2.0 - 3.0 mmol/L LAB HEMATOLOGY METHOD 03/29/2025 4:13 PM EDT [facility] Bicarbonate, Calculated, Arterial 27(H) 22 - 26 mmol/L LAB HEMATOLOGY METHOD 03/29/2025 4:13 PM EDT [facility] Hematocrit, Whole Blood 31.6(L) 40.0 - 51.0 % LAB HEMATOLOGY METHOD 03/29/2025 4:13 PM EDT [facility] Sodium, Whole Blood 138 136 - 145 mmol/L LAB HEMATOLOGY METHOD 03/29/2025 4:13 PM EDT [facility] Potassium, Whole Blood 3.8 3.6 - 4.9 mmol/L LAB HEMATOLOGY METHOD 03/29/2025 4:13 PM EDT [facility] Chloride, Whole Blood 103 97 - 107 mmol/L LAB HEMATOLOGY METHOD 03/29/2025 4:13 PM EDT [facility] Glucose, Whole Blood 123(H) 74 - 99 mg/dL LAB HEMATOLOGY METHOD 03/29/2025 4:13 PM EDT [facility] Ionized Calcium, Whole Blood 4.4(L) 4.6 - 5.1 mg/dL LAB HEMATOLOGY METHOD 03/29/2025 4:13 PM EDT [facility] Lactate, Arterial, Whole Blood 0.8 0.5 - 1.6 mmol/L LAB HEMATOLOGY METHOD 03/29/2025 4:13 PM EDT [facility] Blood Arterial blood specimen / Unknown 03/29/2025 4:05 PM EDT 03/29/2025 4:11 PM EDT Comment:Pre-op diagnosis: Non-small cell cancer of left lung Ирина Lopez MD LAB BLOOD ORDERABLES Final R esult Performing Organization Address [facility] Co de Phone Number [facility] [address] [place] [address] * APTT (03/29/2025 4:04 PM EDT) aPTT 28 25 - 35 sec LAB COAGULATION METHOD 03/29/2025 4:39 PM EDT [facility] Blood Arterial blood specimen / Unknown 03/29/2025 4:04 PM EDT 03/29/2025 4:18 PM EDT Comment:Pre-op diagnosis: Non-small cell cancer of left lung us Ирина Lopez MD LAB BLOOD ORDERABLES Final R esult Performing Organization Address [facility] Co de Phone Number [facility] [address] [place] [address] * Prothrombin Time/INR (03/29/2025 4:04 PM EDT) Prothrombin Time 13.4 12.0 - 14.3 sec LAB COAGULATION METHOD 03/29/2025 4:39 PM EDT [facility] INR 1.0 0.9 - 1.1 LAB COAGULATION METHOD 03/29/2025 4:39 PM EDT [facility] Blood Arterial blood specimen / Unknown 03/29/2025 4:04 PM EDT 03/29/2025 4:18 PM EDT Comment:Pre-op diagnosis: Non-small cell cancer of left lung Narrative [facility] - 03/29/2025 4:39 PM EDT OPTIMAL INR RANGES FOR PATIENT ON ORAL ANTICOAGULANT THERAPY Prevention of venous thromboembolism INR 2.0 to 3.0 In patients with heart disease: Atrial fibrillation INR 2.0 to 3.0 Valvular heart disease INR 2.0 to 3.0 Tissue heart valves INR 2.0 to 3.0 Mechanical prosthetic valves INR 2.5 to 3.5 Prevention of recurrent [facility] INR 2.5 to 3.5 Ирина Lopez MD LAB BLOOD ORDERABLES Final R esult Performing Organization Address [facility] Co de Phone Number [facility] [address] [place] [address] * Fibrinogen, Quantitative (Clottable) (03/29/2025 4:04 PM EDT) [facility] Fibrinogen, Quantitative (Clottable) 336 208 - 459 mg/dL LAB COAGULATION METHOD 03/29/2025 4:39 PM EDT [facility] Blood Arterial blood specimen / Unknown 03/29/2025 4:04 PM EDT 03/29/2025 4:18 PM EDT Comment:Pre-op diagnosis: Non-small cell cancer of left lung Ирина Lopez MD LAB BLOOD ORDERABLES Final R ult Performing Organization Address [facility] Co de Phone Number [facility] [address] [place] [address] * (ABNORMAL) CBC W/O Differential (03/29/2025 4:04 PM EDT) [facility] WBC Count 3.70 3.70 - 10.30 10*3/uL LAB HEMATOLOGY METHOD 03/29/2025 4:28 PM EDT [facility] RBC Count 3.52(L) 4.60 - 6.10 10*6/uL LAB HEMATOLOGY METHOD 03/29/2025 4:28 PM EDT [facility] HGB 10.5(L) 13.7 - 17.5 g/dL LAB HEMATOLOGY METHOD 03/29/2025 4:28 PM EDT [facility] HCT 31.1(L) 40.0 - 51.0 % LAB HEMATOLOGY METHOD 03/29/2025 4:28 PM EDT [facility] Platelet Count 184 155 - 369 10*3/uL LAB HEMATOLOGY METHOD 03/29/2025 4:28 PM EDT [facility] MCV 88 79 - 98 fL LAB HEMATOLOGY METHOD 03/29/2025 4:28 PM EDT [facility] MCH 29.8 26.0 - 32.0 pg LAB HEMATOLOGY METHOD 03/29/2025 4:28 PM EDT [facility] MCHC 33.8 30.7 - 35.5 g/dL LAB HEMATOLOGY METHOD 03/29/2025 4:28 PM EDT [facility] RDW 12.6 11.5 - 14.5 % LAB HEMATOLOGY METHOD 03/29/2025 4:28 PM EDT [facility] MPV 9.4 8.8 - 12.5 fL LAB HEMATOLOGY METHOD 03/29/2025 4:28 PM EDT [facility] nRBC 0.0 <=0.0 per 100 WBCs LAB HEMATOLOGY METHOD 03/29/2025 4:28 PM EDT [facility] Blood Arterial blood specimen / Unknown 03/29/2025 4:04 PM EDT 03/29/2025 4:20 PM EDT Comment:Pre-op diagnosis: Non-small cell cancer of left lung us Ирина Lopez MD LAB BLOOD ORDERABLES Final R esult [facility] [address] [place] [address] * (ABNORMAL) Blood gas panel, arterial (03/29/2025 2:29 PM EDT) pH, Arterial 7.39 7.31 - 7.42 LAB HEMATOLOGY METHOD 03/29/2025 2:35 PM EDT [facility] pCO2, Arterial 44 32 - 45 mmHg LAB HEMATOLOGY METHOD 03/29/2025 2:35 PM EDT [facility] pO2, Arterial 190 >70 mmHg LAB HEMATOLOGY METHOD 03/29/2025 2:35 PM EDT [facility] SO2, Measured, Arterial 100(H) 94 - 98 % LAB HEMATOLOGY METHOD 03/29/2025 2:35 PM EDT [facility] Base Excess, Arterial 1.5 -2.0 - 3.0 mmol/L LAB HEMATOLOGY METHOD 03/29/2025 2:35 PM EDT [facility] Bicarbonate, Calculated, Arterial 27(H) 22 - 26 mmol/L LAB HEMATOLOGY METHOD 03/29/2025 2:35 PM EDT [facility] Hematocrit, Whole Blood 32.4(L) 40.0 - 51.0 % LAB HEMATOLOGY METHOD 03/29/2025 2:35 PM EDT [facility] Sodium, Whole Blood 139 136 - 145 mmol/L LAB HEMATOLOGY METHOD 03/29/2025 2:35 PM EDT [facility] Potassium, Whole Blood 3.6 3.6 - 4.9 mmol/L LAB HEMATOLOGY METHOD 03/29/2025 2:35 PM EDT [facility] Chloride, Whole Blood 104 97 - 107 mmol/L LAB HEMATOLOGY METHOD 03/29/2025 2:35 PM EDT [facility] Glucose, Whole Blood 96 74 - 99 mg/dL LAB HEMATOLOGY METHOD 03/29/2025 2:35 PM EDT [facility] Ionized Calcium, Whole Blood 4.4(L) 4.6 - 5.1 mg/dL LAB HEMATOLOGY METHOD 03/29/2025 2:35 PM EDT [facility] Lactate, Arterial, Whole Blood 1.4 0.5 - 1.6 mmol/L LAB HEMATOLOGY METHOD 03/29/2025 2:35 PM EDT [facility] Blood Arterial blood specimen / Unknown 03/29/2025 2:29 PM EDT 03/29/2025 2:34 PM EDT Comment:Pre-op diagnosis: Non-small cell cancer of left lung us Ирина Lopez MD LAB BLOOD ORDERABLES Final R esult [facility] [address] [place] [facility] [place] [address] * (ABNORMAL) POCT glucose meter (03/29/2025 12:48 PM EDT) POCT Glucose 100(H) 74 - 99 mg/dL 03/29/2025 12:50 PM EDT [facility] Comment:Accuracy of a glucos e result [...] Comment 03/29/2025 12:50 PM EDT [facility] Sports Medicine Trainer ID Rosalie Cuevas 03/29/20 25 12:50 PM EDT [facility] Device ID [id number] 03/29/2025 12:50 PM EDT [facility] Specimen Type POC Venous 03/29/2025 12:50 PM EDT [facility] Blood Venous blood specimen / Unknown 03/29/2025 12:48 PM EDT 03/29/2025 12:50 PM EDT us Ирина Lopez MD LAB POINT OF CARE TE ST DOCKED DEVICE UNSOLICITED RESULTS Final Result Performing Organization Address City/State/[facility] Co de Phone Number [facility] [address] [place] [address] * (ABNORMAL) Blood gas, venous (03/29/2025 12:27 PM EDT) pH, Venous 7.36 7.32 - 7.43 LAB HEMATOLOGY METHOD 03/29/2025 12:51 PM EDT [facility] pCO2, Venous 49 40 - 55 mmHg LAB HEMATOLOGY METHOD 03/29/2025 12:51 PM EDT [facility] pO2, Venous 54(H) 25 - 40 mmHg LAB HEMATOLOGY METHOD 03/29/2025 12:51 PM EDT [facility] SO2, Measured, Venous 87(H) 65 - 80 % LAB HEMATOLOGY METHOD 03/29/2025 12:51 PM EDT [facility] Base Excess, Venous 1.7 -2.0 - 3.0 mmol/L LAB HEMATOLOGY METHOD 03/29/2025 12:51 PM EDT [facility] Bicarbonate, Calculated, Venous 28(H) 22 - 26 mmol/L LAB HEMATOLOGY METHOD 03/29/2025 12:51 PM EDT [facility] Hematocrit, Whole Blood 39.2(L) 40.0 - 51.0 % LAB HEMATOLOGY METHOD 03/29/2025 12:51 PM EDT [facility] Sodium, Whole Blood 140 136 - 145 mmol/L LAB HEMATOLOGY METHOD 03/29/2025 12:51 PM EDT [facility] Potassium, Whole Blood 4.0 3.6 - 4.9 mmol/L LAB HEMATOLOGY METHOD 03/29/2025 12:51 PM EDT [facility] Chloride, Whole Blood 103 97 - 107 mmol/L LAB HEMATOLOGY METHOD 03/29/2025 12:51 PM EDT [facility] Glucose, Whole Blood 97 74 - 99 mg/dL LAB HEMATOLOGY METHOD 03/29/2025 12:51 PM EDT [facility] Lactate, Venous, Whole Blood 1.6 0.5 - 2.2 mmol/L LAB HEMATOLOGY METHOD 03/29/2025 12:51 PM EDT [facility] Ionized Calcium, Whole Blood 4.5(L) 4.6 - 5.1 mg/dL LAB HEMATOLOGY METHOD 03/29/2025 12:51 PM EDT [facility] Blood Venous blood specimen / Unknown Venipuncture / Unknown 03/29/2025 12:27 PM EDT 03/29/2025 12:49 PM EDT us Robert Santos MD LAB BLOOD ORDERABLES Final Resu lt [facility] [address] [place] [address] * Type and Screen (03/29/2025 12:27 PM EDT) ABO/Rh A Positive 03/29/2025 12:00 PM EDT BLOOD BANK Antibody Screen Negative 03/29/2025 12:00 PM EDT BLOOD B[facility] Specimen Expiration 04/01/2025 23:59 03/29/2025 12:00 PM EDT BLOOD BANK Blood Venous blood specimen / Unknown Venipuncture / Unknown 03/29/2025 12:27 PM EDT 03/29/2025 12:47 PM EDT Robert Santos MD LAB BLOOD BANK TEST ORDERABLES Final Result Performing Organization Address City/[facility]/ZIP Co de Phone Number BLOOD BANK [address] [place] [address], [place] documented in this encounter Visit Diagnoses Diagnosis [...] not elsewhere classified Hyponatremia Hyposmolality and/or hyponatremia documented in this encounter Admitting Diagnoses Diagnosis [...] Carmella Iniguez RN)1830 (Given - Provider: Carmella Iniguez, BUCK)2333 (Given - Provider: Pam Trejo RN) 0615 (Given - Provider: Pam Trejo RN)1200 (Canceled Entry - Provider: Automatic Discharge Provider - Comment: Automatically canceled at discontinue of medication order) aspirin chewable tablet 81 mg 81 mg, Oral, Daily, First dose on Sat03/30/25 at 0900, Until Discontinued, Routine 0850 (Given - Provider: Travis Corral RN) 0853 (Given - Provider: Carmella Iniguez, BUCK) 0937 (Given - Provider: Carmella Iniguez RN) [...] Fagan - Reason: Order parameters not met) 0246 (Not Given - Provider: Xochitl Fagan - [...] Routine 0851 (Medication Applied - Provider: Travis Corral, BUCK)2001 (Medication Removed - Provider: Xochitl Fagan) 0900 [...] II-Outpatient)/On Unit(Inpatient) 0626 (Given - Provider: Dipak Serrano, BUCK)1237 (Given - Provider: Travis Corral RN)1754 (Given - Provider: Travis Corral RN) 0013 (Given - Provider: Xochitl Fagan)0513 (Given - Provider: Xochitl Fagan)1303 (Given - Provider: Carmella Iniguez RN)1830 (Given - Provider: Carmella Iniguez RN)2333 (Given - Provider: Pam Trejo, BUCK) 0615 (Given - Provider: Pam Trejo, BUCK)1200 (Canceled Entry - Provider: Automatic Discharge Provider - Comment: Automatically canceled at discontinue of medication order) mupirocin (Bactroban) 2 % ointment 1 Application Each Nostril, 2 times daily, 10 doses, First dose on Sat04/02/25 at 1445, Last dose on Sat04/06/25 at 2100, Routine 1446 (Given - Provider: Travis Corral RN)2026 (Given - Provider: Xochitl Fagan) 0854 (Given - Provider: Carmella Iniguez RN)1958 (Given - Provider: Pam Trejo RN) 0939 [...] refused) 0853 (Given - Provider: Carmella Iniguez RN)195 (Given - Provider: Pam Trejo RN) 0936 (Given - Provider: Carmella Iniguez RN) tamsulosin (Flomax) 24 hr capsule 0.4 mg 0.4 mg, Oral, Daily, First dose on Sat03/30/25 at 0900, Until Discontinued, Routine 0850 (Given - Provider: Travis Corral RN) 0853 (Given - Provider: Carmella Iniguez, BUCK) 0937 (Given - Provider: Carmella Iniguez RN) [...] Intravenous, Every 4 hours PRN, Starting on e 03/30/25 at 0812, Until 04/04/25 at 1418, Routine, SBP > 160 and HR < 60 labetalol (Normodyne,Trandate) injection 20 mg(Linked Group 2) 20 mg, Intravenous, Every 4 hours PRN, Starting on e 03/30/25 at 0812, Until 04/04/25 at 1418, Routine, [...] Until 04/04/25 at 1418, Routine, nausea, vomiting Linked Groups [...] Until Sat04/04/25 at 1418, Routine, vomiting, nausea Group 4: [...] documented as of this encounter Care Teams [employer] Relationship Specialty Start Date End Date Casa Phillips MD [address] [place] [id number] PCP - General 02/22/25 Forerst Nickerson APRN [address] [place] [id number] 03/06/23 documented as of this encounter
--- OUTSIDE RECORDS SUMMARY | 2025-03-29 12:10 | XMS_ITS | Encounter Summary ---
Author Organization [facility] Address [address] [place] [address] Care Team Providers Care Flame Hardening Machine Operator Name Role Phone Forrest Nickerson DRUM HANDLER Unavailable [phone] Casa Phillips MD Primary Care Provider [phone] Reason for Visit * Auth/Cert (Routine) Specialty Diagnoses / Procedures Referred By Contac t Referred To Contact Diagnoses Non-small cell cancer of left lung (CMS/HCC) Non-small cell cancer of left lung Procedures DC THORACOSCOPY SURG LOBECTOMY LEFT VATS LOBECTOMY Ирина Lopez MD [address] [address] Phone: tel: fax: [facility] [address] [place] [address] Phone: tel: Referral ID Status Reason Start Date Expiration Date Visits Re quested Visits Authorized [id number] 1 1 Encounter Details Date Type Department Care Team (Late st Contact Info) Description 03/29/2025 12:10 PM EDT - 03/29/2025 4:50 PM EDT Surgery [facility] [address] [place] [address] Ирина Lopez MD [address] [address] LEFT VATS LOBECTOMY coverted to open, Left thoracotomy, with medistinal lymph node disection and lypoma [01069 (CPT )] Surgery Details Date/Time Status Location OR Service Patient Class Case Class Case Type Trauma Case? 03/29/2025 12:10 PM Posted [facility] OR [facility] OR 11 Cardiothoracic Surgery Surgery Admit E-Elect kristofer Panel 1 Procedure LRB Anes Op Region Wound Class Comments LEFT VATS LOBECTOMY coverted to open, Left thoracotomy, with medistinal lymph node disection and lypoma Left General Class II/ Clean Contaminated Peds scope [id number] passed Surgeon Surgeon Role Service Panel Carl Hamlin MD Resident - Assisting 1 Ирина Lopez MD Primary Cardiothoracic Surg philippe 1 documented in this encounter Social History Tobacco Use Types Packs/Day Years [...] Sign Reading Time Taken Comments Blood Pressure 167/79 03/29/2025 12:20 PM EDT Pulse 57 03/29/2025 12:20 PM EDT Temperature 36.6 C (97.9 F) 03/29/2025 12:20 PM EDT Respiratory Rate 18 03/29/2025 12:20 PM EDT Oxygen Saturation 96% 03/29/2025 12:20 PM EDT Inhaled Oxygen Concentration - - Weight 68 kg (150 lb) 03/29/2025 12:02 PM EDT Height - - Body Mass Index 21.29 03/30/2025 1:25 PM EDT documented in this encounter Discharge Instructions * Discharge Instructions* [...] Clinic discharge # - For urgent questions/concerns: [facility] hotline: , option 4 - ask for the thoracic surgeon director airport operations. documented in this encounter Medications at Time [...] of this encounter Miscellaneous Notes * Chester Loyns RN - 04/04/2025 10:30 AM EDT Images from the original note were not included. [address]405 Surgery for Lung Cancer Surgery can be [...] holidays. Last Reviewed Date: 2023 00:00:00 ?? [id number] The [employer] ([employer]). All rights reserved. This information is not intended as a substitute for professional medical care. Always follow your healthcare professional's instructions. * Neida Garland - Chester Cuevas RN - 04/04/2025 10:29 AM EDT Images from the original note were not included. 90482 Thoracotomy Thoracotomy is surgery used to diagnose [...] . Last Reviewed Date: 2024 00:00:00 ?? [id number] [employer] ([employer]). All rights reserved. This information is not intended as a substitute for professional medical care. Always follow your healthcare professional's instructions. * Neida Garland - Chester Cuevas RN - 04/04/2025 10:29 AM EDT Images from the original note were not included. 72937 Lung Cancer: Video-Assisted and Robotic-Assisted Thoracic Surgery [...] you will hurt less after surgery. ? [facility] stay. You can likely go home [...] surgery because the cuts are small. ? [facility] stay. You can likely go home [...] of surgery you need. Make sure the [facility] have experience in VATS or RATS. Not [...] future. Last Reviewed Date: 2023 00:00:00 ?? [id number] [employer] ([employer]). All rights reserved. This information is not intended as a substitute for professional medical care. Always follow your healthcare professional's instructions. * Neida Garland - Chester Cuevas RN - 04/04/2025 10:24 AM EDT Images from the original note were not included. [id number] Tamsulosin Brand Name(s): Flomax??, Su?? (as a [...] be awakened, immediately call emergency services at 771. Symptoms of overdose may include: ? dizziness [...] of all of the prescription and nonprescription (krev-gok-souetao) medicines you are taking, as well as [...] or pharmacist about specific clinical use. The [employer] represents that the information provided hereunder was formulated with a reasonable standard of care, and in conformity with professional standards in the field. The [employer] makes no representations or warranties, express or implied, including, but not limited to, any implied warranty of merchantability and/or fitness for a particular purpose, with respect to such information and specifically disclaims all such warranties. Users are advised that decisions regarding drug therapy are complex medical decisions requiring the independent, informed decision of an appropriate health acute care surgeon, and the information is provided for informational purposes only. The entire monograph for a drug should be reviewed for a thorough understanding of the drug's actions, uses and side effects. The [employer] does not endorse or recommend the use of any drug.The information is not a substitute for medical care. AHFS?? Patient Medication Information?. ?? Copyright, 2023. The [employer]??, [address], [address], [place], [place]. All Rights Reserved. Duplication for commercial use must be authorized by [facility]. Selected Revisions: October 28, 2017. AHFS?? Patient Medication Information?. ?? Copyright, 2024 * Neida Garland - Chester Cuevas RN - 04/04/2025 10:24 AM EDT Images from the original note were not included. [id number] Senna Brand Name(s): Black Draught??, Ex-Lax??, Baca's Castoria??, Nature's Remedy??, Perdiem Overnight [...] on your package or prescription label elvis packradha, and ask your doctor or pharmacist [...] and out of their sight and reach. [email or web address] Unneeded medications should be disposed of in [...] 911. What OTHER INFORMATION should I know? Ask your pharmacist any questions you have about senna. It is important for you to keep a written list of all of the prescription and nonprescription (xxvf-hcr-agqlurx) medicines you are taking, as well as [...] or pharmacist about specific clinical use. The [employer] represents that the information provided hereunder was formulated with a reasonable standard of care, and in conformity with professional standards in the field. The [employer] makes no representations or warranties, express or implied, including, but not limited to, any implied warranty of merchantability and/or fitness for a particular purpose, with respect to such information and specifically disclaims all such warranties. Users are advised that decisions regarding drug therapy are complex medical decisions requiring the independent, informed decision of an appropriate health acute care surgeon, and the information is provided for informational purposes only. The entire monograph for a drug should be reviewed for a thorough understanding of the drug's actions, uses and side effects. The [employer] does not endorse or recommend the use of any drug.The information is not a substitute for medical care. AHFS?? Patient Medication Information?. ?? Copyright, 2023. The [employer]??, [address], [address], [place], [place]. All Rights Reserved. Duplication for commercial use must be authorized by [facility]. Selected Revisions: April 02, 2024. AHFS?? Patient Medication Information?. ?? Copyright, 2024 * Neida Garland - Chester Cuevas RN - 04/04/2025 10:24 AM EDT Images from the original note were not included. [id number] Polyethylene Glycol 3350 Brand Name(s): MiraLax?? PEG [...] be awakened, immediately call emergency services at 081. Symptoms of overdose may include: ? diarrhea ? thirst ? confusion ? seizure What OTHER INFORMATION should I know? Keep all appointments with your doctor. Do not let anyone else take your medication. Ask your pharmacist any questions you have about refilling your prescription. It is important for you to keep a written list of all of the prescription and nonprescription (fizl-syt-ssmqxhf) medicines you are taking, as well as [...] or pharmacist about specific clinical use. The [employer] represents that the information provided hereunder was formulated with a reasonable standard of care, and in conformity with professional standards in the field. The [employer] makes no representations or warranties, express or implied, including, but not limited to, any implied warranty of merchantability and/or fitness for a particular purpose, with respect to such information and specifically disclaims all such warranties. Users are advised that decisions regarding drug therapy are complex medical decisions requiring the independent, informed decision of an appropriate health acute care surgeon, and the information is provided for informational purposes only. The entire monograph for a drug should be reviewed for a thorough understanding of the drug's actions, uses and side effects. The [employer] does not endorse or recommend the use of any drug.The information is not a substitute for medical care. AHFS?? Patient Medication Information?. ?? Copyright, 2023. The [employer]??, [address], [address], [place], [place]. All Rights Reserved. Duplication for commercial use must be authorized by [facility]. Selected Revisions: December 27, 2015. AHFS?? Patient Medication Information?. ?? Copyright, 2024 * Kaykaynatasha EdsonALEXIS - Chester Cuevas RN - 04/04/2025 10:24 AM EDT 1087 Oxycodone Oral Tablet, Immediate Release Brand Names: Oxaydo, Roxicodone What is this medicine? Oxycodone (ig-q-CPI-done) is an opioid pain reliever. It is used to treat moderate to severe pain. What should I tell my health care provider before I take this medicine? They need to know if you have any of these conditions: ? [place]'s disease ? Brain tumor or head injury [...] a special medication guide each time you pickers material handlers this medicine. ? Overdosage: Taking too much [...] should report to your doctor or health acute care surgeon as soon as possible: ? allergic reactions [...] attention (report to your doctor or health acute care surgeon if they continue or are bothersome): ? constipation ? dry mouth ? itching ? nausea, vomiting ? upset stomach This list may not describe all possible side effects. Call your doctor for medical advice about side effects. You may report side effects to FDA at 9-065-XKC-8641. Where should I keep my medicine? This [...] location. To find a disposal location, visit [employer]/[facility]/[place]. If you cannot take unused medicine to [...] from the original note were not included. [id number] Methocarbamol Brand Name(s): Robaxin??; also available generically [...] be awakened, immediately call emergency services at 994. What OTHER INFORMATION should I know? Keep all appointments with your doctor. Do not let anyone else take your medication. Ask your pharmacist any questions you have about refilling your prescription. It is important for you to keep a written list of all of the prescription and nonprescription (vhtq-kux-nzmaiph) medicines you are taking, as well as [...] or pharmacist about specific clinical use. The [employer] represents that the information provided hereunder was formulated with a reasonable standard of care, and in conformity with professional standards in the field. The [employer] makes no representations or warranties, express or implied, including, but not limited to, any implied warranty of merchantability and/or fitness for a particular purpose, with respect to such information and specifically disclaims all such warranties. Users are advised that decisions regarding drug therapy are complex medical decisions requiring the independent, informed decision of an appropriate health acute care surgeon, and the information is provided for informational purposes only. The entire monograph for a drug should be reviewed for a thorough understanding of the drug's actions, uses and side effects. The [employer] does not endorse or recommend the use of any drug.The information is not a substitute for medical care. AHFS?? Patient Medication Information?. ?? Copyright, 2023. The [employer]??, [address], [address], [place], [place]. All Rights Reserved. Duplication for commercial use must be authorized by [facility]. Selected Revisions: May 28, 2017. AHFS?? Patient Medication Information?. ?? Copyright, 2024 * Neida Garland - Chester Cuevas RN - 04/04/2025 10:23 AM EDT Images from the original note were not included. [id number] Acetaminophen Brand Name(s): Actamin??, Feverall??, Panadol??, Tempra Quicklets??, Tylenol??, Dayquil?? (as a combination product containing Acetaminophen, Dextromethorphan, Pseudoephedrine), NyQuil Cold/Flu Relief?? (as a combination product containing Acetaminophen, Dextromethorphan, Doxylamine), Percocet?? (as a combination product containing Acetaminophen, Oxycodone) APAP, V-vlyvyx-mtlq-aminophenol, Paracetamol ?? This branded product is no [...] measuring cup or syringe provided by the x ray examiner of aircraft to measure each dose of the solution [...] and out of their sight and reach. [email or web address] Unneeded medications should be disposed of in [...] of all of the prescription and nonprescription (ixea-tia-qnrdknr) medicines you are taking, as well as [...] or pharmacist about specific clinical use. The [employer] represents that the information provided hereunder was formulated with a reasonable standard of care, and in conformity with professional standards in the field. The [employer] makes no representations or warranties, express or implied, including, but not limited to, any implied warranty of merchantability and/or fitness for a particular purpose, with respect to such information and specifically disclaims all such warranties. Users are advised that decisions regarding drug therapy are complex medical decisions requiring the independent, informed decision of an appropriate health acute care surgeon, and the information is provided for informational purposes only. The entire monograph for a drug should be reviewed for a thorough understanding of the drug's actions, uses and side effects. The [employer] does not endorse or recommend the use of any drug.The information is not a substitute for medical care. AHFS?? Patient Medication Information?. ?? Copyright, 2023. The [employer]??, [address], [address], [place], [place]. All Rights Reserved. Duplication for commercial use must be authorized by [facility]. Selected Revisions: June 28, 2023. AHFS?? Patient Medication Information?. ?? Copyright, 2024 * Discharge Summary - Everett Marie DO - 04/04/2025 9:13 AM EDT Hospitalization Admit Date/Time: 03/29/2025 9:43 AM Admitting Attending: Ирина Lopez Discharge Date: 04/04/2025 Discharge Attending Physician: Ирина Lopez MD PCP name and Address: Casa Phillips MD [address] [place] [address] / [facility] [address] Referring provider name and address: No referring [...] Medications These medications were sent to [facility] - [place], [place] - [address] [facility] [address] acetaminophen 500 MG tablet methocarbamol 500 MG [...] Clinic discharge # - For urgent questions/concerns: MDs hotline: , option 4 - ask for the thoracic surgeon director airport operations. Outpatient Follow-Up Future Appointments Date Time Provider [...] Mobility Exam: Supine to Sit Level of [place]: Stand-by assist Physical/Nonphysical Assist: Set-up required, HOB elevated Assistive Device: Bed rails Transfers Transfer Exam: Sit to stand Level of [place]: Stand-by assist Physical/Nonphysical Assist: Verbal Cues, Nonverbal cues (demo/gestures), Minimal cues Assistive Device: Rollator Transfer Exam: Stand to Sit Level of [place]: Stand-by assist Physical/Nonphysical Assist: Verbal Cues, Nonverbal [...] to areas of treatment space. Standardized Assessments [facility] 6-Clicks Mobility Assessment Difficulty patient has [...] 3-5 steps with a railing?: A little [facility] 6-Clicks Mobility Assessment Total : 21 [...] for assistance with DME. Referrals sent to [facility] for Rollator to be delivered to bedside today. * Progress Notes - Patricia Torres N - 04/03/2025 11:49 AM EDT Occupational Therapy Treatment Patient Name: Michelle Feliz Jr. Today's Date: 04/03/2025 OT Discharge Recommendations: Home with 24 hour assistance Equipment Recommended: Rollator Subjective Pt consent to tx Participants in Care Family/Caregiver Present: Yes Family/Caregiver: Adult Daughter Medical Fee Clerk: Not Applicable Presentation Oxygen Therapy: None (Room [...] Mobility Exam: Supine to Sit Level of [place]: Stand-by assist Physical/Nonphysical Assist: Set-up required, HOB elevated Transfers Transfer Exam: Sit to stand Level of [place]: Stand-by assist Physical/Nonphysical Assist: Verbal Cues, Nonverbal cues (demo/gestures), Minimal cues Assistive Device: Rollator Transfer Exam: Stand to Sit Level of [place]: Stand-by assist Physical/Nonphysical Assist: Verbal Cues, Nonverbal [...] reaches 6. Pt verbalizes understanding. Standardized Assessments [facility] 6-Click Daily Activities Help from Other: Don/Doff Regular Lower Body Clothings: Little Help From Other: Bathing: Little Help From Other: Toileting: Little Help From Other: Don/Doff Upper Body Clothings: Little Help From Other: Grooming: Little Help From Other: Eating Meals: None [facility] 6 Click - Daily Activities Score: [...] at 4:50 PM. * Progress Notes - Everett Marie DO - 04/03/2025 9:58 AM EDT Images from the original note were not included. [facility] Department of Surgery Section of Thoracic [...] long-term current use of insulin ([facility]) Microalbuminuria Tobacco use disorder Second hand smoke [...] long-term current use of insulin ([facility]/HCC) Anemia Electrolyte abnormality Plan: - Remove chest [...] Mobility Bed Mobility Exam: Scooting/Bridging Level of [place]: Minimum assist (75% patient's effort) Physical/Nonphysical Assist: Verbal Cues, Nonverbal cues (demo/gestures), Minimal cues Bed Mobility Exam: Supine to Sit Level of [place]: Minimum assist (75% patient's effort) Physical/Nonphysical Assist: Verbal Cues, Nonverbal cues (demo/gestures), HOB elevated Bed Mobility Exam: Sit to Supine Level of [place]: Minimum assist (75% patient's effort) Physical/Nonphysical Assist: Verbal Cues, Minimal cues Transfers Transfer Exam: Sit to stand Level of [place]: Minimum assist (75% patient's effort) Physical/Nonphysical Assist: Verbal Cues, Nonverbal cues (demo/gestures), Minimal cues Assistive Device: Rollator Transfer Exam: Stand to Sit Level of [place]: Minimum assist (75% patient's effort) Physical/Nonphysical Assist: [...] Level of Mobility Ambulatory- household only Mobility [place] Independent gait without device History of Falls [...] Ambulating in-room distances since last PT treatment. Medical Fee Clerk (if applicable) OBJECTIVE & INTERVENTIONS PAIN Pt was without complaints of pain throughout the PT treatment. DELIRIUM SCREENING Curtis Agitation Sedation Scale (RASS): Alert and calm Feature 3: Altered Level of Consciousness: Negative THERAPEUTIC ACTIVITY Treatment Minutes 25 BED MOBILITY Level of [place] Physical/Non- physical Assist Adaptive Equipment Utilized Scooting/ [...] with supine <> sit TRANSFERS Level of [place] Physical/Non- physical Assist Adaptive Equipment Utilized Sit to Stand Minimum assist (75% patient's effort) Verbal Cues, Nonverbal cues (demo/gestures), Minimal cues Rollator Stand to sit Minimum assist (75% patient's effort) Verbal Cues, Nonverbal cues (demo/gestures), Minimal cues Rollator Interventions PT cued for proper hand placement and forward trunk lean prior to completing STS transfers BALANCE Postural Appearance Posture: Stooped posture Level of [place] Balance Support Interventions Static Sit Standby assist [...] Left upper extremity support AMBULATION Level of [place] Distance Adaptive Equipment Utilized Ambulation Contact guard [...] falling while progressing pt's distances Standardized Assessments [facility] 6-Clicks Mobility Assessment Difficulty patient has [...] climbing 3-5 steps with a railing?: Unable [facility] 6-Clicks Mobility Assessment Total : 16 [...] from the original note were not included. [facility] Department of Surgery Section of Thoracic Surgery Progress Note 04/02/25 Michelle Lordriley Garcia. History of Present Illness Michelle Feliz Jr. [...] Airway None Output by Drain (mL) 03/31/25 0700 - 03/31/25 1859 03/31/25 1900 - 04/01/25 [...] Units 04/02/25 0432 04/01/25 0212 03/31/25 0222 HEMOGLOBIN g/dL 6.4* 7.6* 8.0* [...] long-term current use of insulin ([facility]) Microalbuminuria Tobacco use disorder Second hand smoke [...] long-term current use of insulin ([facility]/HCC) Anemia Electrolyte abnormality Plan: - Keep chest [...] from the original note were not included. [facility] Department of Surgery Section of Thoracic Surgery Progress Note 04/01/25 Michelle Jean Trini Ivan History of Present Illness Michelle Feliz Jr. [...] Airway None Output by Drain (mL) 03/30/25 07 - 03/30/25 18503/30/25 1900 - 03/31/25 0659 03/31/25 07 - [...] Results from last 7 days Lab Units 04/01/25 02103/31/252 03/30/25 0405 HEMOGLOBIN g/dL 7.6* 8.0* 8.8* HEMATOCRIT % 22.9* 24.3* 25.8* INR Results from last 7 days Lab Units 03/29/25 1958 03/29/25 1604 INR 1.0 1.0 Cr Results from last 7 days Lab Units 04/01/25 0212 03/31/25 0222 03/30/25 1057 CREATININE mg/dL 1.67* 1.59* 1.64* [...] Michelle Feliz Jr. 79 y.o. male CSN: [id number] Admission: 03/29/2025 9:43 AM Primary Problem: Non-small cell cancer of left lung (CMS/HCC) Security Controls Assessor reviewed chart and spoke with the patient at bedside to complete this Initial Case Management Assessment. PCP: Casa Phillips MD Emergency Contact: Extended Emergency Contact Information Primary Emergency Contact: Elliot Feliz Relation: Son Medical Fee Clerk needed? No Secondary Emergency Contact: Nora Feliz Relation: Daughter Medical Fee Clerk needed? No Insurance: Primary Visit Coverage Payer Plan Sponsor Code Group Number Group Name ANTHEM MEDICARE ANTHEM [employer] [id number] Primary Visit Coverage Subscriber Subscriber ID Subscriber Name Subscriber N Subscriber Address [id number] MICHELLE FELIZ JR [id number] [place] [address] Patient information: Primary Caregiver: Self Support System: Immediate family Daily Living Activities: Functional Status: Independent Living Arrangements: Children Type of Residence: Private residence, Single Level [address] [place] [address] Current DME: Equipment Currently Used at Home: [...] DME Provider: n/a Living Will/Advance Directive/Power of Associate Programmer /Guardian: Have you reviewed your Advance Directive and is it valid for this stay?: Not applicable Advance Directive: Patient has advance directive, copy not in chart Advance Directive not in Chart: Copy requested from family Information Provided on Healthcare Directives: No Pre-existing DNR/DNI Order: No Patient Requests Assistance: No Additional Comments: BUCK VILLARREAL met with patient at bedside for initial assessment and discuss dischargeplanning. Confirmed address on file. Patient lives with his daughter in a single level home. Patient states he was independent prior to admit. Patient states he has a cane and rolling walker. Denies HH/HD/O2. PCP is [facility]. Patient has An[employer] Medicare insurance and uses [email or web address]. Family will assist and transport at [...] from the original note were not included. [facility] Department of Surgery Section of Thoracic [...] Airway None Output by Drain (mL) 03/29/25 07 - 03/29/25 18503/29/25 1900 - 03/30/25 0659 03/30/25 07 - 03/30/25 1859 03/30/25 1900 - 03/31/25 [...] Results from last 7 days Lab Units 03/31/2522103/30/255 03/29/251957 HEMOGLOBIN g/dL 8.0* 8.8* 9.2* HEMATOCRIT % 24.3* 25.8* 27.7* INR Results from last 7 days Lab Units 03/29/25195703/29/25 1604 INR 1.0 1.0 Cr Results from last 7 days Lab Units 03/31/2522103/30/25 1057 03/30/25 0405 CREATININE mg/dL 1.59* 1.64* [...] Outcome: Ongoing, Progressing * Progress Notes - Viktoria Duke R - 03/31/2025 10:02 AM EDT Physical [...] Level of Mobility: Ambulatory- household only Mobility [place]: Independent gait without device History of Falls: [...] Mobility Bed Mobility Exam: Scooting/Bridging Level of [place]: Maximum assist (25% patient's effort) (to scoot to EOB while seated) Physical/Nonphysical Assist: Verbal Cues, Nonverbal cues (demo/gestures) Bed Mobility Exam: Supine to Sit Level of [place]: Maximum assist (25% patient's effort) Physical/Nonphysical Assist: Verbal Cues, Nonverbal cues (demo/gestures), Additional assist utilized for safety, HOB elevated Transfers Transfer Exam: Sit to stand Level of [place]: Moderate assist (50% patient's effort) Physical/Nonphysical Assist: Verbal Cues, Nonverbal cues (demo/gestures), Additional assist utilized for safety Transfer Exam: Stand to Sit Level of [place]: Moderate assist (50% patient's effort) Physical/Nonphysical Assist: [...] Assessments Standardized Assessments: [facility] 6-Clicks Mobility Assessment [facility] 6-Clicks Mobility Assessment Difficulty patient has [...] climbing 3-5 steps with a railing?: Unable [facility] 6-Clicks Mobility Assessment Total : 11 [...] Level of Mobility: Ambulatory- household only Mobility [place]: Independent gait without device History of Falls: [...] Mobility Bed Mobility Exam: Scooting/Bridging Level of [place]: Maximum assist (25% patient's effort) (to scoot to EOB while seated) Physical/Nonphysical Assist: Verbal Cues, Nonverbal cues (demo/gestures) Bed Mobility Exam: Supine to Sit Level of [place]: Maximum assist (25% patient's effort) Physical/Nonphysical Assist: Verbal Cues, Nonverbal cues (demo/gestures), Additional assist utilized for safety, HOB elevated Transfers Transfer Exam: Sit to stand Level of [place]: Moderate assist (50% patient's effort) Physical/Nonphysical Assist: Verbal Cues, Nonverbal cues (demo/gestures), Additional assist utilized for safety Transfer Exam: Stand to Sit Level of [place]: Moderate assist (50% patient's effort) Physical/Nonphysical Assist: [...] continued education to improve carryover. Standardized Assessments [facility] 6-Click Daily Activities Help from Other: Don/Doff Regular Lower Body Clothings: A lot Help From Other: Bathing: A lot Help From Other: Toileting: A lot Help From Other: Don/Doff Upper Body Clothings: Little Help From Other: Grooming: Little Help From Other: Eating Meals: None [facility] 6 Click - Daily Activities Score: [...] from the original note were not included. [facility] Department of Surgery Section of Thoracic [...] by Drain (mL) 03/28/25 07 - 03/28/25 18503/28/251899 - 03/29/25 0659 03/29/25 07 - 03/29/25 1859 03/29/25 190 - 03/30/25 0659 03/30/25 07 - 03/30/25 0933 Requested LDAs do not [...] Results from last 7 days Lab Units 03/30/2540403/29/25195703/29/25 1604 HEMOGLOBIN g/dL 8.8* 9.2* 10.5* HEMATOCRIT % 25.8* 27.7* 31.1* INR Results from last 7 days Lab Units 03/29/25195703/29/25 1604 INR 1.0 1.0 Cr Results from last 7 days Lab Units 03/30/2540403/29/251957 CREATININE mg/dL 1.41* 1.08 1.08 Medications reviewed. [...] 03/29/2025 10:24 PM EDT Patient: Michelle Feliz Parker Anesthesia Type: general Vitals Value Taken Time [...] PM EDT Operative Note Date: 03/29/25 Location: [facility] Name: Michelle Feliz , : 1945, Diagnoses: Pre-op Diagnosis Non-small cell cancer of left lung (CMS/HCC) Post-op Diagnosis Non-small cell cancer of left lung (CMS/HCC) Procedure(s): Bronchoscopy, left VATS converted to thoracotomy, left upper lobectomy, mediastinal lymph node dissection, intercostal nerve blocks Attending Surgeon(s): * Ирина Lopez - Primary Construction Ironworker Helper(s): * Carl Hamlin MD - Resident - [...] spaces under direct visualization. A single 24 Belarusian chest tube was placed through the camera [...] responses Results Review {Vanishing Link Review Results :[id number] I have reviewed the latest lab and [...] card, photo ID, along with power of tractor engine mechanic, guardianship or advanced directives if applicable Do [...] Cassidy APRN - 03/18/2025 8:35 AM EDT [facility] Michelle Feliz Jr. is a 79 y.o. [...] Upcoming Encounters Date Type Department Care Team ([facility] st Contact Info) Description 04/20/2025 10:00 AM EDT Appointment [facility] Rad[facility] [address] [place] [address] 04/20/2025 10:30 AM EDT Office Visit Pav [facility] [address] [facility], [address]nd [place] [address] Ирина Lopez MD [address] [place] [id number] 07/06/2025 10:40 AM EDT Office Visit Pav [facility] [address], [address] [place] [address] Nikolai Naranjo MD [address] [place] [address] Scheduled Orders Name Type Priority [...] Non-small cell cancer of left lung (CMS/HCC) DC THORACOSCOPY SURG LOBECTOMY 03/29/2025 1:24 PM EDT Non-small cell cancer of left lung (CMS/HCC) POCT GLUCOSE METER UNSOLICITED RESULTS Routine 03/29/2025 12:48 PM EDT TYPE AND SCREEN Routine 03/29/2025 12:27 PM EDT BLOOD GAS PANEL, VENOUS Routine 03/29/2025 12:27 PM EDT documented in this encounter Results * (ABNORMAL) POCT glucose meter (04/04/2025 8:34 AM EDT) [facility] POCT Glucose 159(H) 74 - 99 mg/dL 04/04/2025 8:36 AM EDT [facility] Comment:Accuracy of a glucos e result [...] Comment 04/04/2025 8:36 AM EDT [facility]ARE [facility] Software Quality Specialist ID Sandy Kramer 04/04/2025 8:36 AM EDT HEALTHCARE LAB Device ID [id number] 04/04/2025 8:36 AM EDT [facility]ALTH[facility]ARE [facility] Specimen Type POC Capillary 04/04/2025 8:36 AM EDT [facility] Blood Capillary blood specimen / Unknown 04/04/2025 8:34 AM EDT 04/04/2025 8:36 AM EDT us Ирина Lopez MD LAB POINT OF CARE TE ST DOCKED DEVICE UNSOLICITED RESULTS Final Result Performing Organization Address City/State/[facility] Co de Phone Number HEALTHCARE LAB [address] [place] [address] * XR Chest 1 View (04/04/2025 5:20 [...] Nevaeh Winn MD on 04/04/2025 10:20 AM us Scarlet Gamboa DRUM HANDLER IMG XR PROCEDURES Final Resul t * (ABNORMAL) Renal Function Panel, Plasma (04/04/2025 2:19 AM EDT) Glucose, Plasma 166(H) 74 - 99 mg/dL 04/04/2025 2:53 AM EDT [facility] BUN, Plasma 18 8 - 23 mg/dL 04/04/2025 2:53 AM EDT [facility] Creatinine, Plasma 1.31(H) 0.70 - 1.20 mg/dL 04/04/2025 2:53 AM EDT [facility] BUN/Creatinine Ratio 14 04/04/2025 2:53 AM EDT [facility] Sodium, Plasma 136 136 - 145 mmol/L 04/04/2025 2:53 AM EDT [facility] Potassium, Plasma 4.3 3.6 - 4.9 mmol/L 04/04/2025 2:53 AM EDT [facility] Chloride, Plasma 103 97 - 107 mmol/L 04/04/2025 2:53 AM EDT [facility] CO2, Plasma 22 22 - 29 mmol/L 04/04/2025 2:53 AM EDT [facility] Anion Gap 11 6 - 16 mmol/L 04/04/2025 2:53 AM EDT [facility] Total Calcium, Plasma 8.2(L) 8.9 - 10.2 mg/dL 04/04/2025 2:53 AM EDT [facility] Phosphorus, Plasma 3.1 2.5 - 4.5 mg/dL 04/04/2025 2:53 AM EDT [facility] Albumin, Plasma 3.0(L) 3.5 - 5.2 g/dL 04/04/2025 2:53 AM EDT [facility] eGFRcr 55.7 mL/min/1.7 3m*2 04/04/2025 2:53 AM EDT [facility] Comment:Reported eGFRcr in m L/min/1.73m2 is based the CKD-EPI 2020 equation that does not use a race coefficient. Blood Venous blood specimen / Unknown Venipuncture / Unknown 04/04/2025 2:19 AM EDT 04/04/2025 2:24 AM EDT Ирина Lopez MD LAB BLOOD ORDERABLES Final R esult Performing Organization Address [facility] Co de Phone Number [facility] [address] [place] [address] * (ABNORMAL) Magnesium, Plasma (04/04/2025 2:19 AM EDT) Pathologist [facility] Magnesium, Plasma 1.8(L) 1.9 - 2.4 mg/dL 04/04/2025 2:53 AM EDT [facility] Blood Venous blood specimen / Unknown Venipuncture / Unknown 04/04/2025 2:19 AM EDT 04/04/2025 2:24 AM EDT Ирина Lopez MD LAB BLOOD ORDERABLES Final R esult Performing Organization Address [facility] Co de Phone Number [facility] [address] [place] [address] * (ABNORMAL) CBC W/O Differential (04/04/2025 2:19 AM EDT) WBC Count 5.44 3.70 - 10.30 10*3/uL LAB HEMATOLOGY METHOD 04/04/2025 2:33 AM EDT [facility] RBC Count 3.77(L) 4.60 - 6.10 10*6/uL LAB HEMATOLOGY METHOD 04/04/2025 2:33 AM EDT [facility] HGB 10.7(L) 13.7 - 17.5 g/dL LAB HEMATOLOGY METHOD 04/04/2025 2:33 AM EDT [facility] HCT 32.4(L) 40.0 - 51.0 % LAB HEMATOLOGY METHOD 04/04/2025 2:33 AM EDT [facility] Platelet Count 220 155 - 369 10*3/uL LAB HEMATOLOGY METHOD 04/04/2025 2:33 AM EDT [facility] MCV 86 79 - 98 fL LAB HEMATOLOGY METHOD 04/04/2025 2:33 AM EDT [facility] MCH 28.4 26.0 - 32.0 pg LAB HEMATOLOGY METHOD 04/04/2025 2:33 AM EDT [facility] MCHC 33.0 30.7 - 35.5 g/dL LAB HEMATOLOGY METHOD 04/04/2025 2:33 AM EDT [facility] RDW 14.7(H) 11.5 - 14.5 % LAB HEMATOLOGY METHOD 04/04/2025 2:33 AM EDT [facility] MPV 9.1 8.8 - 12.5 fL LAB HEMATOLOGY METHOD 04/04/2025 2:33 AM EDT [facility] nRBC 0.4(H) <=0.0 per 100 WBCs LAB HEMATOLOGY METHOD 04/04/2025 2:33 AM EDT [facility] Blood Venous blood specimen / Unknown Venipuncture / Unknown 04/04/2025 2:19 AM EDT 04/04/2025 2:24 AM EDT us Ирина Lopez MD LAB BLOOD ORDERABLES Final R esult [facility] [address] [place] [address] * (ABNORMAL) POCT glucose meter (04/03/2025 8:25 PM EDT) [facility] POCT Glucose 194(H) 74 [...] for testing. Comment 04/03/2025 8:28 PM EDT [facility] Software Quality Specialist ID Obdulio Navarro 04/03/2025 8:28 PM EDT HEALTH[facility]ARE LAB Device ID [id number] 04/03/2025 8:28 PM EDT [facility] Specimen Type POC Capillary 04/03/2025 8:28 PM EDT [facility] Blood Capillary blood specimen / Unknown 04/03/2025 8:25 PM EDT 04/03/2025 8:28 PM EDT us Ирина Lopez MD LAB POINT OF CARE TE ST DOCKED DEVICE UNSOLICITED RESULTS Final Result Performing Organization Address City/[facility]/ZIP Co de Phone Number [facility] [address] [place] [address] * (ABNORMAL) POCT glucose meter (04/03/2025 5:27 PM EDT) [facility] POCT Glucose 138(H) 74 [...] 04/03/2025 5:29 PM EDT [facility] Software Quality Specialist ID Anayeli Castro 025 5:29 PM EDT HEALTH[facility]ARE LAB Device ID [id number] 04/03/2025 5:29 PM EDT [facility] Specimen Type POC Capillary 04/03/2025 5:29 PM EDT [facility] Blood Capillary blood specimen / Unknown 04/03/2025 5:27 PM EDT 04/03/2025 5:29 PM EDT us Ирина Lopez MD LAB POINT OF CARE TE ST DOCKED DEVICE UNSOLICITED RESULTS Final Result Performing Organization Address City/[facility]/ZIP Co de Phone Number [facility] [address] [place] [address] * XR Chest 1 View (04/03/2025 1:09 [...] - 99 mg/dL 04/03/2025 12:17 PM EDT [facility] Comment:Accuracy of a glucos e result [...] 04/03/2025 12:17 PM EDT [facility] Software Quality Specialist ID Anayeli Castro 025 12:17 PM EDT [facility] Device ID [id number] 04/03/2025 12:17 PM EDT [facility] Specimen Type POC Capillary 04/03/2025 12:17 PM EDT [facility] Blood Capillary blood specimen / Unknown 04/03/2025 12:15 PM EDT 04/03/2025 12:17 PM EDT Ирина Lopez MD LAB POINT OF CARE TE ST DOCKED DEVICE UNSOLICITED RESULTS Final Result Performing Organization Address [facility] Co de Phone Number [facility]ARE [facility] [address] [place] [address] * (ABNORMAL) POCT glucose meter (04/03/2025 8:46 [...] Comment 04/03/2025 8:48 AM EDT [facility]ARE [facility] Software Quality Specialist ID Anayeli Castro 025 8:48 AM EDT HEALTH[facility]ARE LAB Device ID [id number] 04/03/2025 8:48 AM EDT [facility] Specimen Type POC Capillary 04/03/2025 8:48 AM EDT [facility] Blood Capillary blood specimen / Unknown 04/03/2025 8:46 AM EDT 04/03/2025 8:48 AM EDT us Ирина Lopez MD LAB POINT OF CARE TE ST DOCKED DEVICE UNSOLICITED RESULTS Final Result Performing Organization Address City/[facility]/ZIP Co de Phone Number [facility] [address] [facility] [place] [address] * XR Chest 1 View (04/03/2025 5:53 [...] on 04/03/2025 9:52 AM us Scarlet Gamboa DRUM HANDLER IMG XR PROCEDURES Final Resul t * (ABNORMAL) Renal Function Panel, Plasma (04/03/2025 3:45 AM EDT) Glucose, Plasma 131(H) 74 - 99 mg/dL 04/03/2025 4:24 AM EDT [facility] BUN, Plasma 16 8 - 23 mg/dL 04/03/2025 4:24 AM EDT [facility] Creatinine, Plasma 1.34(H) 0.70 - 1.20 mg/dL 04/03/2025 4:24 AM EDT [facility] BUN/Creatinine Ratio 12 04/03/2025 4:24 AM EDT [facility] Sodium, Plasma 135(L) 136 - 145 mmol/L 04/03/2025 4:24 AM EDT [facility] Potassium, Plasma 4.9 3.6 - 4.9 mmol/L 04/03/2025 4:24 AM EDT [facility] Chloride, Plasma 103 97 - 107 mmol/L 04/03/2025 4:24 AM EDT [facility] CO2, Plasma 21(L) 22 - 29 mmol/L 04/03/2025 4:24 AM EDT [facility] Anion Gap 11 6 - 16 mmol/L 04/03/2025 4:24 AM EDT [facility] Total Calcium, Plasma 7.7(L) 8.9 - 10.2 mg/dL 04/03/2025 4:24 AM EDT [facility] Phosphorus, Plasma 2.2(L) 2.5 - 4.5 mg/dL 04/03/2025 4:24 AM EDT [facility] Albumin, Plasma 2.8(L) 3.5 - 5.2 g/dL 04/03/2025 4:24 AM EDT [facility] eGFRcr 54.2 mL/min/1.7 3m*2 04/03/2025 4:24 AM EDT [facility] Comment:Reported eGFRcr in m L/min/1.73m2 is based the CKD-EPI 2020 equation that does not use a race coefficient. Blood Venous blood specimen / Unknown Venipuncture / Unknown 04/03/2025 3:45 AM EDT 04/03/2025 3:54 AM EDT us Ирина Lopez MD LAB BLOOD ORDERABLES Final R esult [facility] [address] [place] [address] * Magnesium, Plasma (04/03/2025 3:45 AM EDT) [facility] Magnesium, Plasma 2.0 1.9 - 2.4 mg/dL 04/03/2025 4:24 AM EDT [facility] Blood Venous blood specimen / Unknown Venipuncture / Unknown 04/03/2025 3:45 AM EDT 04/03/2025 3:54 AM EDT us Ирина Lopez MD LAB BLOOD ORDERABLES Final R esult [facility] [address] [place] [address] * (ABNORMAL) CBC W/O Differential (04/03/2025 3:45 AM EDT) Pathologist [facility] WBC Count 6.54 3.70 - 10.30 10*3/uL LAB HEMATOLOGY METHOD 04/03/2025 4:09 AM EDT [facility] RBC Count 3.42(L) 4.60 - 6.10 10*6/uL LAB HEMATOLOGY METHOD 04/03/2025 4:09 AM EDT [facility] HGB 9.8(L) 13.7 - 17.5 g/dL LAB HEMATOLOGY METHOD 04/03/2025 4:09 AM EDT [facility] HCT 29.2(L) 40.0 - 51.0 % LAB HEMATOLOGY METHOD 04/03/2025 4:09 AM EDT [facility] Platelet Count 209 155 - 369 10*3/uL LAB HEMATOLOGY METHOD 04/03/2025 4:09 AM EDT [facility] MCV 85 79 - 98 fL LAB HEMATOLOGY METHOD 04/03/2025 4:09 AM EDT [facility] MCH 28.7 26.0 - 32.0 pg LAB HEMATOLOGY METHOD 04/03/2025 4:09 AM EDT [facility] MCHC 33.6 30.7 - 35.5 g/dL LAB HEMATOLOGY METHOD 04/03/2025 4:09 AM EDT [facility] RDW 15.0(H) 11.5 - 14.5 % LAB HEMATOLOGY METHOD 04/03/2025 4:09 AM EDT [facility] MPV 9.4 8.8 - 12.5 fL LAB HEMATOLOGY METHOD 04/03/2025 4:09 AM EDT [facility] nRBC 0.0 <=0.0 per 100 WBCs LAB HEMATOLOGY METHOD 04/03/2025 4:09 AM EDT [facility] Blood Venous blood specimen / Unknown Venipuncture / Unknown 04/03/2025 3:45 AM EDT 04/03/2025 3:54 AM EDT us Ирина Lopez MD LAB BLOOD ORDERABLES Final R esult [facility] [address] [place] [address] * (ABNORMAL) POCT glucose meter (04/02/2025 8:16 PM EDT) [facility] POCT Glucose 154(H) 74 [...] Comment 04/02/2025 8:20 PM EDT [facility]ALTH[facility]ARE [facility] Software Quality Specialist ID ShkrJil elizalde 8:20 PM EDT [facility]ALTH[facility]ARE LAB Device ID [id number] 04/02/2025 8:20 PM EDT [facility]ALTH[facility]ARE [facility] Specimen Type POC Capillary 04/02/2025 8:20 PM EDT [facility] Blood Capillary blood specimen / Unknown 04/02/2025 8:16 PM EDT 04/02/2025 8:20 PM EDT us Ирина Lopez MD LAB POINT OF CARE TE ST DOCKED DEVICE UNSOLICITED RESULTS Final Result Performing Organization Address City/[facility]/ZIP Co de Phone Number [facility]ARE [facility] [address] [place] [address] * (ABNORMAL) POCT glucose meter (04/02/2025 5:20 PM EDT) POCT Glucose 122(H) 74 - 99 mg/dL 04/02/2025 5:22 PM EDT [facility] Comment:Accuracy of a [...] Comment 04/02/2025 5:22 PM EDT [facility]ALTH[facility]ARE [facility] Software Quality Specialist ID Kenn Cabrera 04/02/2025 5:22 PM EDT HEALTHCARE LAB Device ID [id number] 04/02/2025 5:22 PM EDT [facility]ALTH[facility]ARE LAB Specimen Type POC Capillary 04/02/2025 5:22 PM EDT [facility] Blood Capillary blood specimen / Unknown 04/02/2025 5:20 PM EDT 04/02/2025 5:22 PM EDT Ирина Lopez MD LAB POINT OF CARE TE ST DOCKED DEVICE UNSOLICITED RESULTS Final Result [facility] [address] [place] [address] * (ABNORMAL) CBC W/O Differential (04/02/2025 3:02 PM EDT) [facility] WBC Count 6.02 3.70 - 10.30 10*3/uL LAB HEMATOLOGY METHOD 04/02/2025 3:27 PM EDT [facility] RBC Count 3.09(L) 4.60 - 6.10 10*6/uL LAB HEMATOLOGY METHOD 04/02/2025 3:27 PM EDT [facility] HGB 8.9(L) 13.7 - 17.5 g/dL LAB HEMATOLOGY METHOD 04/02/2025 3:27 PM EDT [facility] HCT 26.9(L) 40.0 - 51.0 % LAB HEMATOLOGY METHOD 04/02/2025 3:27 PM EDT [facility] Platelet Count 129(L) 155 - 369 10*3/uL LAB HEMATOLOGY METHOD 04/02/2025 3:27 PM EDT [facility] MCV 87 79 - 98 fL LAB HEMATOLOGY METHOD 04/02/2025 3:27 PM EDT [facility] MCH 28.8 26.0 - 32.0 pg LAB HEMATOLOGY METHOD 04/02/2025 3:27 PM EDT [facility] MCHC 33.1 30.7 - 35.5 g/dL LAB HEMATOLOGY METHOD 04/02/2025 3:27 PM EDT [facility] RDW 14.4 11.5 - 14.5 % LAB HEMATOLOGY METHOD 04/02/2025 3:27 PM EDT [facility] MPV 9.9 8.8 - 12.5 fL LAB HEMATOLOGY METHOD 04/02/2025 3:27 PM EDT [facility] nRBC 0.0 <=0.0 per 100 WBCs LAB HEMATOLOGY METHOD 04/02/2025 3:27 PM EDT [facility] Blood Venous blood specimen / Unknown Venipuncture / Unknown 04/02/2025 3:02 PM EDT 04/02/2025 3:20 PM EDT Scarlet Gamboa APRN LAB BLOOD ORDERABLES [facility] [address] [place] [address] * Transfuse RBC (04/02/2025 2:53 PM EDT) Scarlet Gamboa APRN BLOOD TRANSFUSION ORDERABLES Final Result * Transfuse RBC: 2 Units (04/02/2025 2:53 PM EDT) Scarlet Gamboa APRN BLOOD TRANSFUSION ORDERABLES Edited Result - Final * (ABNORMAL) POCT glucose meter (04/02/2025 12:28 PM EDT) POCT Glucose 149(H) 74 - 99 mg/dL 04/02/2025 12:30 PM EDT [facility] Comment:Accuracy of a glucos e result [...] Comment 04/02/2025 12:30 PM EDT [facility]ALTHCARE LAB Software Quality Specialist ID Kenn Cabrera 04/02/2025 12:30 PM EDT [facility]ALTH[facility]ARE LAB Device ID [id number] 04/02/2025 12:30 PM EDT [facility]ALTH[facility]ARE LAB Specimen Type POC Capillary 04/02/2025 12:30 PM EDT [facility] Blood Capillary blood specimen / Unknown 04/02/2025 12:28 PM EDT 04/02/2025 12:30 PM EDT us Ирина Lopez MD LAB POINT OF CARE TE ST DOCKED DEVICE UNSOLICITED RESULTS Final Result Performing Organization Address City/State/[facility] Co de Phone Number [facility]ARE LAB [address] [place] [address] * Transfuse RBC (04/02/2025 12:16 PM EDT) us Scarlet Gamboa APRN BLOOD [...] Comment 04/02/2025 8:33 AM EDT [facility]ALTH[facility]ARE [facility] Software Quality Specialist ID Martha Sean 04/02/2025 8:33 AM EDT HEALTHCARE LAB Device ID [id number] 04/02/2025 8:33 AM EDT [facility]ALTH[facility]ARE LAB Specimen Type POC Capillary 04/02/2025 8:33 AM EDT [facility] Blood Capillary blood specimen / Unknown 04/02/2025 8:31 AM EDT 04/02/2025 8:33 AM EDT us Ирина Lopez MD LAB POINT OF CARE TE ST DOCKED DEVICE UNSOLICITED RESULTS Final Result Performing Organization Address City/[facility] de Phone Number [facility] [address] [place] [address] * Prepare Leukocyte Reduced RBC: 2 Units (04/02/2025 7:58 AM EDT) [facility] Product Code [id number] CH BLOO D BANK Dispense Status Transfused CH BLOOD BANK Blood Expiration Date BLOOD BANK Unit Number [id number] CH B LOOD BANK Product Blood Type 6200 BLOOD BANK Blood Type A+ CH BLOOD BANK Crossmatch Compatible CH BLOOD BANK Product Code [id number] CH BLOO D BANK Dispense Status Transfused CH BLOOD BANK Blood Expiration Date [id number] BLOOD BANK Unit Number [id number] CH B LOOD BANK Product Blood Type 6200 BLOOD BANK Blood Type A+ CH BLOOD BANK Crossmatch Compatible BLOOD BANK Other us Scarlet Gamboa APRN BLOOD BANK PRODUCT ORDERABLES Final Result Performing Organization Address [facility] de Phone Number BLOOD BANK [address] * Type and Screen (04/02/2025 6:36 [...] ORDERABL ES Final Result BLO[facility] BANK [address] [place] [address], [place] * XR Chest 1 View (04/02/2025 [...] - 99 mg/dL 04/02/2025 5:51 AM EDT [facility] BUN, Plasma 16 8 - 23 mg/dL 04/02/2025 5:51 AM EDT [facility] Creatinine, Plasma 1.47(H) 0.70 - 1.20 mg/dL 04/02/2025 5:51 AM EDT [facility] BUN/Creatinine Ratio 11 04/02/2025 5:51 AM EDT [facility] Sodium, Plasma 137 136 - 145 mmol/L 04/02/2025 5:51 AM EDT [facility] Potassium, Plasma 4.3 3.6 - 4.9 mmol/L 04/02/2025 5:51 AM EDT [facility] Chloride, Plasma 104 97 - 107 mmol/L 04/02/2025 5:51 AM EDT [facility] CO2, Plasma 24 22 - 29 mmol/L 04/02/2025 5:51 AM EDT [facility] Anion Gap 9 6 - 16 mmol/L 04/02/2025 5:51 AM EDT [facility] Total Calcium, Plasma 7.8(L) 8.9 - 10.2 mg/dL 04/02/2025 5:51 AM EDT [facility] Phosphorus, Plasma 2.6 2.5 - 4.5 mg/dL 04/02/2025 5:51 AM EDT [facility] Albumin, Plasma 2.8(L) 3.5 - 5.2 g/dL 04/02/2025 5:51 AM EDT [facility] eGFRcr 48.5 mL/min/1.7 3m*2 04/02/2025 5:51 AM EDT [facility] Comment:Reported eGFRcr in m L/min/1.73m2 is based the CKD-EPI 2020 equation that does not use a race coefficient. Blood Venous blood specimen / Unknown Venipuncture / Unknown 04/02/2025 4:32 AM EDT 04/02/2025 5:20 AM EDT Ирина Lopez MD LAB BLOOD ORDERABLES Final R esult Performing Organization Address City/[facility] Co de Phone Number [facility] [address] [place] [address] * Magnesium, Plasma (04/02/2025 4:32 AM EDT) Magnesium, Plasma 1.9 1.9 - 2.4 mg/dL 04/02/2025 5:51 AM EDT [facility] Blood Venous blood specimen / Unknown Venipuncture / Unknown 04/02/2025 4:32 AM EDT 04/02/2025 5:20 AM EDT Ирина Lopez MD LAB BLOOD ORDERABLES Final R esult Performing Organization Address City/[facility]/ZIP Co de Phone Number [facility] [address] [place] [address] * (ABNORMAL) CBC W/O Differential (04/02/2025 4:32 AM EDT) WBC Count 6.22 3.70 - 10.30 10*3/uL LAB HEMATOLOGY METHOD 04/02/2025 5:31 AM EDT [facility] RBC Count 2.14(L) 4.60 - 6.10 10*6/uL LAB HEMATOLOGY METHOD 04/02/2025 5:31 AM EDT [facility] HGB 6.4(LL) 13.7 - 17.5 g/dL LAB HEMATOLOGY METHOD 04/02/2025 5:31 AM EDT [facility] HCT 19.0(LL) 40.0 - 51.0 % LAB HEMATOLOGY METHOD 04/02/2025 5:31 AM EDT [facility] Platelet Count 180 155 - 369 10*3/uL LAB HEMATOLOGY METHOD 04/02/2025 5:31 AM EDT [facility] MCV 89 79 - 98 fL LAB HEMATOLOGY METHOD 04/02/2025 5:31 AM EDT [facility] MCH 29.9 26.0 - 32.0 pg LAB HEMATOLOGY METHOD 04/02/2025 5:31 AM EDT [facility] MCHC 33.7 30.7 - 35.5 g/dL LAB HEMATOLOGY METHOD 04/02/2025 5:31 AM EDT [facility] RDW 14.0 11.5 - 14.5 % LAB HEMATOLOGY METHOD 04/02/2025 5:31 AM EDT [facility] MPV 9.9 8.8 - 12.5 fL LAB HEMATOLOGY METHOD 04/02/2025 5:31 AM EDT [facility] nRBC 0.0 <=0.0 per 100 WBCs LAB HEMATOLOGY METHOD 04/02/2025 5:31 AM EDT [facility] Blood Venous blood specimen / Unknown Venipuncture / Unknown 04/02/2025 4:32 AM EDT 04/02/2025 5:20 AM EDT us Ирина Lopez MD LAB BLOOD ORDERABLES Final R esult [facility] [address] [place] [address] * (ABNORMAL) POCT glucose meter (04/01/2025 8:14 PM EDT) Pathologist [facility] [place] POCT Glucose 156(H) 74 - 99 mg/dL 04/01/2025 8:16 PM EDT [facility] Comment:Accuracy of a [...] Comment 04/01/2025 8:16 PM EDT [facility] Software Quality Specialist ID Jil Ruiz 8:16 PM EDT [facility] Device ID [id number] 04/01/2025 8:16 PM EDT [facility] Specimen Type POC Capillary 04/01/2025 8:16 PM EDT [facility] Blood Capillary blood specimen / Unknown 04/01/2025 8:14 PM EDT 04/01/2025 8:16 PM EDT us Ирина Lopez MD LAB POINT OF CARE TE ST DOCKED DEVICE UNSOLICITED RESULTS Final Result Performing Organization Address City/State/[facility] Co de Phone Number [facility] [address] [place] [address] * (ABNORMAL) POCT glucose meter (04/01/2025 5:26 PM EDT) [facility] POCT Glucose 154(H) 74 - 99 mg/dL 04/01/2025 5:29 PM EDT [facility] Comment:Accuracy of a [...] Comment 04/01/2025 5:29 PM EDT [facility] Software Quality Specialist ID Kenn Cabrera 04/01/2025 5:29 PM EDT [facility] Device ID [id number] 04/01/2025 5:29 PM EDT [facility] Specimen Type POC Capillary 04/01/2025 5:29 PM EDT [facility] Blood Capillary blood specimen / Unknown 04/01/2025 5:26 PM EDT 04/01/2025 5:29 PM EDT us Ирина Lopez MD LAB POINT OF CARE TE ST DOCKED DEVICE UNSOLICITED RESULTS Final Result Performing Organization Address [facility] Co de Phone Number [facility] [address] [place] [address] * (ABNORMAL) POCT glucose meter (04/01/2025 12:49 PM EDT) Pathologist [facility] [place] POCT Glucose 162(H) 74 - 99 mg/dL [...] Comment 04/01/2025 12:51 PM EDT [facility] Software Quality Specialist ID Kenn Cabrera 04/01/2025 12:51 PM EDT [facility] Device ID [id number] 04/01/2025 12:51 PM EDT [facility] Specimen Type POC Capillary 04/01/2025 12:51 PM EDT [facility] Blood Capillary blood specimen / Unknown 04/01/2025 12:49 PM EDT 04/01/2025 12:51 PM EDT Ирина Lopez MD LAB POINT OF CARE TE ST DOCKED DEVICE UNSOLICITED RESULTS Final Result Performing Organization Address [facility] Co de Phone Number [facility] [address] [place] [address] * (ABNORMAL) POCT glucose meter (04/01/2025 8:43 AM EDT) [facility] POCT Glucose 155(H) 74 - 99 [...] 04/01/2025 8:45 AM EDT [facility] Software Quality Specialist ID Kenn Cabrera 04/01/2025 8:45 AM EDT [facility] Device ID [id number] 04/01/2025 8:45 AM EDT [facility] Specimen Type POC Capillary 04/01/2025 8:45 AM EDT [facility] Blood Capillary blood specimen / Unknown 04/01/2025 8:43 AM EDT 04/01/2025 8:45 AM EDT us Ирина Lopez MD LAB POINT OF CARE TE ST DOCKED DEVICE UNSOLICITED RESULTS Final Result [facility] [address] [place] [address] * XR Chest 1 View (04/01/2025 5:41 [...] - 99 mg/dL 04/01/2025 4:24 AM EDT [facility] BUN, Plasma 20 8 - 23 mg/dL 04/01/2025 4:24 AM EDT [facility] Creatinine, Plasma 1.67(H) 0.70 - 1.20 mg/dL 04/01/2025 4:24 AM EDT [facility] BUN/Creatinine Ratio 12 04/01/2025 4:24 AM EDT [facility] Sodium, Plasma 136 136 - 145 mmol/L 04/01/2025 4:24 AM EDT [facility] Potassium, Plasma 4.3 3.6 - 4.9 mmol/L 04/01/2025 4:24 AM EDT [facility] Chloride, Plasma 101 97 - 107 mmol/L 04/01/2025 4:24 AM EDT [facility] CO2, Plasma 24 22 - 29 mmol/L 04/01/2025 4:24 AM EDT [facility] Anion Gap 11 6 - 16 mmol/L 04/01/2025 4:24 AM EDT [facility] Total Calcium, Plasma 8.1(L) 8.9 - 10.2 mg/dL 04/01/2025 4:24 AM EDT [facility] Phosphorus, Plasma 2.5 2.5 - 4.5 mg/dL 04/01/2025 4:24 AM EDT [facility] Albumin, Plasma 3.0(L) 3.5 - 5.2 g/dL 04/01/2025 4:24 AM EDT [facility] eGFRcr 41.6 mL/min/1.7 3m*2 04/01/2025 4:24 AM EDT [facility] Comment:Reported eGFRcr in m L/min/1.73m2 is based the CKD-EPI 2020 equation that does not use a race coefficient. Blood Venous blood specimen / Unknown Venipuncture / Unknown 04/01/2025 2:12 AM EDT 04/01/2025 3:21 AM EDT Ирина Lopez MD LAB BLOOD ORDERABLES Final R esult Performing Organization Address City/[facility]/ZIP Co de Phone Number [facility] [address] [place] [address] * Magnesium, Plasma (04/01/2025 2:12 AM EDT) Pathologist [facility] [place] Magnesium, Plasma 2.4 1.9 - 2.4 mg/dL 04/01/2025 4:24 AM EDT [facility] Blood Venous blood specimen / Unknown Venipuncture / Unknown 04/01/2025 2:12 AM EDT 04/01/2025 3:21 AM EDT рИина Lopez MD LAB BLOOD ORDERABLES Final R esult Performing Organization Address City/[facility] Co de Phone Number [facility] [address] [place] [address] * (ABNORMAL) CBC W/O Differential (04/01/2025 2:12 AM EDT) WBC Count 6.25 3.70 - 10.30 10*3/uL LAB HEMATOLOGY METHOD 04/01/2025 3:29 AM EDT [facility] RBC Count 2.59(L) 4.60 - 6.10 10*6/uL LAB HEMATOLOGY METHOD 04/01/2025 3:29 AM EDT [facility] HGB 7.6(L) 13.7 - 17.5 g/dL LAB HEMATOLOGY METHOD 04/01/2025 3:29 AM EDT [facility] HCT 22.9(L) 40.0 - 51.0 % LAB HEMATOLOGY METHOD 04/01/2025 3:29 AM EDT [facility] Platelet Count 163 155 - 369 10*3/uL LAB HEMATOLOGY METHOD 04/01/2025 3:29 AM EDT [facility] MCV 88 79 - 98 fL LAB HEMATOLOGY METHOD 04/01/2025 3:29 AM EDT [facility] MCH 29.3 26.0 - 32.0 pg LAB HEMATOLOGY METHOD 04/01/2025 3:29 AM EDT [facility] MCHC 33.2 30.7 - 35.5 g/dL LAB HEMATOLOGY METHOD 04/01/2025 3:29 AM EDT [facility] RDW 14.1 11.5 - 14.5 % LAB HEMATOLOGY METHOD 04/01/2025 3:29 AM EDT [facility] MPV 10.0 8.8 - 12.5 fL LAB HEMATOLOGY METHOD 04/01/2025 3:29 AM EDT [facility] nRBC 0.0 <=0.0 per 100 WBCs LAB HEMATOLOGY METHOD 04/01/2025 3:29 AM EDT [facility] Blood Venous blood specimen / Unknown Venipuncture / Unknown 04/01/2025 2:12 AM EDT 04/01/2025 3:21 AM EDT us Ирина Lopez MD LAB BLOOD ORDERABLES Final R esult [facility] [address] [place] [address] * (ABNORMAL) POCT glucose meter (03/31/2025 8:19 PM EDT) POCT Glucose 237(H) 74 - 99 mg/dL 03/31/2025 8:21 PM EDT [facility] Comment:Accuracy of a [...] Comment 03/31/2025 8:21 PM EDT [facility] Software Quality Specialist ID ShJil reyna 8:21 PM EDT [facility] Device ID [id number] 03/31/2025 8:21 PM EDT [facility] Specimen Type POC Capillary 03/31/2025 8:21 PM EDT [facility] Blood Capillary blood specimen / Unknown 03/31/2025 8:19 PM EDT 03/31/2025 8:21 PM EDT us Ирина Lopez MD LAB POINT OF CARE TE ST DOCKED DEVICE UNSOLICITED RESULTS Final Result Performing Organization Address [facility] de Phone Number [facility] [address] [place] [address] * (ABNORMAL) POCT glucose meter (03/31/2025 5:24 PM EDT) [facility] POCT Glucose 194(H) 74 [...] for testing. Comment 03/31/2025 5:26 PM EDT [facility] Software Quality Specialist ID Kenn Cabrera 03/31/2025 5:26 PM EDT [facility] Device ID [id number] 03/31/2025 5:26 PM EDT [facility] Specimen Type POC Capillary 03/31/2025 5:26 PM EDT [facility] Blood Capillary blood specimen / Unknown 03/31/2025 5:24 PM EDT 03/31/2025 5:26 PM EDT us Ирина Lopez MD LAB POINT OF CARE TE ST DOCKED DEVICE UNSOLICITED RESULTS Final Result Performing Organization Address City/[facility]/ZIP Co de Phone Number [facility] [address] [place] [address] * Transfuse RBC (03/31/2025 3:56 PM EDT) us Scarlet Gamboa [employer] BLOOD TRANSFUSION ORDERABLES Final Result * Transfuse RBC: 1 Units (03/31/2025 3:56 PM EDT) us Scarlet Gamboa [employer] BLOOD TRANSFUSION ORDERABLES Final Result * XR [...] MD on 03/31/2025 1:30 PM Scarlet Gamboa [employer] IMG XR PROCEDURES Final Resul t * (ABNORMAL) POCT glucose meter (03/31/2025 12:31 PM EDT) POCT Glucose 245(H) 74 - 99 mg/dL 03/31/2025 12:34 PM EDT [facility] Comment:Accuracy of a glucos e result [...] for testing. Comment 03/31/2025 12:34 PM EDT [facility] Software Quality Specialist ID Kenn Cabrera 03/31/2025 12:34 PM EDT [facility] Device ID [id number] 03/31/2025 12:34 PM EDT [facility] Specimen Type POC Capillary 03/31/2025 12:34 PM EDT [facility] Blood Capillary blood specimen / Unknown 03/31/2025 12:31 PM EDT 03/31/2025 12:34 PM EDT us Ирина Lopez MD LAB POINT OF CARE TE ST DOCKED DEVICE UNSOLICITED RESULTS Final Result Performing Organization Address City/[facility]/ZIP Co de Phone Number [facility] [address] [place] [address] * (ABNORMAL) POCT glucose meter (03/31/2025 9:08 [...] Comment 03/31/2025 9:09 AM EDT [facility] Software Quality Specialist ID Kenn Cabrera 03/31/2025 9:09 AM EDT [facility] Device ID [id number] 03/31/2025 9:09 AM EDT [facility] Specimen Type POC Capillary 03/31/2025 9:09 AM EDT [facility] Blood Capillary blood specimen / Unknown 03/31/2025 9:08 AM EDT 03/31/2025 9:09 AM EDT Ирина Lopez MD LAB POINT OF CARE TE ST DOCKED DEVICE UNSOLICITED RESULTS Final Result Performing Organization Address City/[facility]/ZIP Co de Phone Number [facility] [address] [place] [address] * Prepare Leukocyte Reduced RBC: 1 Units (03/31/2025 9:02 AM EDT) Product Code [id number] CH BLOO D BANK Dispense Status Transfused BLOOD BANK Blood Expiration Date [id number] BLOOD BANK Unit Number [id number] CH B LOOD BANK Product Blood Type 6200 BLOOD BANK Blood Type A+ CH BLOOD BANK Crossmatch Compatible BLOOD BANK Other us Scarlet Gamboa [employer] BLOOD BANK PRODUCT ORDERABLES Final Result BLOOD BANK [address] [place] [address], [place] * XR Chest 1 View (03/31/2025 [...] - 99 mg/dL 03/31/2025 3:13 AM EDT [facility] BUN, Plasma 21 8 - 23 mg/dL 03/31/2025 3:13 AM EDT [facility] Creatinine, Plasma 1.59(H) 0.70 - 1.20 mg/dL 03/31/2025 3:13 AM EDT [facility] BUN/Creatinine Ratio 13 03/31/2025 3:13 AM EDT [facility] Sodium, Plasma 133(L) 136 - 145 mmol/L 03/31/2025 3:13 AM EDT [facility] Potassium, Plasma 3.6 3.6 - 4.9 mmol/L 03/31/2025 3:13 AM EDT [facility] Chloride, Plasma 102 97 - 107 mmol/L 03/31/2025 3:13 AM EDT [facility] CO2, Plasma 19(L) 22 - 29 mmol/L 03/31/2025 3:13 AM EDT [facility] Anion Gap 12 6 - 16 mmol/L 03/31/2025 3:13 AM EDT [facility] Total Calcium, Plasma 7.0(L) 8.9 - 10.2 mg/dL 03/31/2025 3:13 AM EDT [facility] Phosphorus, Plasma 3.5 2.5 - 4.5 mg/dL 03/31/2025 3:13 AM EDT [facility] Albumin, Plasma 2.9(L) 3.5 - 5.2 g/dL 03/31/2025 3:13 AM EDT [facility] eGFRcr 44.2 mL/min/1.7 3m*2 03/31/2025 3:13 AM EDT [facility] Comment:Reported eGFRcr in m L/min/1.73m2 is based the CKD-EPI 2020 equation that does not use a race coefficient. Blood Venous blood specimen / Unknown Venipuncture / Unknown 03/31/2025 2:22 AM EDT 03/31/2025 2:41 AM EDT us Ирина Lopez MD LAB BLOOD ORDERABLES Final R esult Performing Organization Address City/[facility]/ZIP Co de Phone Number [facility] [address] [place] [address] * (ABNORMAL) Magnesium, Plasma (03/31/2025 2:22 AM EDT) Magnesium, Plasma 3.1(H) 1.9 - 2.4 mg/dL 03/31/2025 3:13 AM EDT [facility] Blood Venous blood specimen / Unknown Venipuncture / Unknown 03/31/2025 2:22 AM EDT 03/31/2025 2:41 AM EDT us Ирина Lopez MD LAB BLOOD ORDERABLES Final R [employer] Performing Organization Address [facility] Co de Phone Number [facility] [address] [place] [address] * (ABNORMAL) CBC W/O Differential (03/31/2025 2:22 AM EDT) WBC Count 7.84 3.70 - 10.30 10*3/uL LAB HEMATOLOGY METHOD 03/31/2025 2:51 AM EDT [facility] RBC Count 2.65(L) 4.60 - 6.10 10*6/uL LAB HEMATOLOGY METHOD 03/31/2025 2:51 AM EDT [facility] HGB 8.0(L) 13.7 - 17.5 g/dL LAB HEMATOLOGY METHOD 03/31/2025 2:51 AM EDT [facility] HCT 24.3(L) 40.0 - 51.0 % LAB HEMATOLOGY METHOD 03/31/2025 2:51 AM EDT [facility] Platelet Count 155 155 - 369 10*3/uL LAB HEMATOLOGY METHOD 03/31/2025 2:51 AM EDT [facility] MCV 92 79 - 98 fL LAB HEMATOLOGY METHOD 03/31/2025 2:51 AM EDT [facility] MCH 30.2 26.0 - 32.0 pg LAB HEMATOLOGY METHOD 03/31/2025 2:51 AM EDT [facility] MCHC 32.9 30.7 - 35.5 g/dL LAB HEMATOLOGY METHOD 03/31/2025 2:51 AM EDT [facility] RDW 13.2 11.5 - 14.5 % LAB HEMATOLOGY METHOD 03/31/2025 2:51 AM EDT [facility] MPV 9.6 8.8 - 12.5 fL LAB HEMATOLOGY METHOD 03/31/2025 2:51 AM EDT [facility] nRBC 0.0 <=0.0 per 100 WBCs LAB HEMATOLOGY METHOD 03/31/2025 2:51 AM EDT [facility] Blood Venous blood specimen / Unknown Venipuncture / Unknown 03/31/2025 2:22 AM EDT 03/31/2025 2:41 AM EDT us Ирина Lopez MD LAB BLOOD ORDERABLES Final R esult [facility] [address] [place] [address] * (ABNORMAL) POCT glucose meter (03/30/2025 8:28 PM EDT) [facility] Signature POCT Glucose 206(H) 74 - 99 mg/dL [...] Comment 03/30/2025 8:30 PM EDT [facility] Software Quality Specialist ID Laughlin, Danuta 03/30/2025 8:30 PM EDT [facility] Device ID [id number] 03/30/2025 8:30 PM EDT [facility] Specimen Type POC Capillary 03/30/2025 8:30 PM EDT [facility] Blood Capillary blood specimen / Unknown 03/30/2025 8:28 PM EDT 03/30/2025 8:30 PM EDT us Ирина Lopez MD LAB POINT OF CARE TE ST DOCKED DEVICE UNSOLICITED RESULTS Final Result Performing Organization Address [facility] de Phone Number [facility] [address] [place] [address] * (ABNORMAL) POCT glucose meter (03/30/2025 5:20 [...] for testing. Comment 03/30/2025 5:21 PM EDT [facility] Software Quality Specialist ID Halima Ervin 03/30/20 5:21 PM EDT [facility] Device ID [id number] 03/30/2025 5:21 PM EDT [facility] Specimen Type POC Capillary 03/30/2025 5:21 PM EDT [facility] Blood Capillary blood specimen / Unknown 03/30/2025 5:20 PM EDT 03/30/2025 5:21 PM EDT us Ирина Lopez MD LAB POINT OF CARE TE ST DOCKED DEVICE UNSOLICITED RESULTS Final Result Performing Organization Address City/[facility] de Phone Number [facility] [address] [place] [address] * XR Chest 1 View (03/30/2025 4:46 [...] on 03/30/2025 5:01 PM us Scarlet Gamboa [employer] IMG XR PROCEDURES Final Resul t * [...] 03/30/2025 12:49 PM EDT [facility] Software Quality Specialist ID Cata Gibbs 12:49 PM EDT [facility] Device ID [id number] 03/30/2025 12:49 PM EDT [facility] Specimen Type POC Venous 03/30/2025 12:49 PM EDT [facility] Blood Venous blood specimen / Unknown 03/30/2025 12:48 PM EDT 03/30/2025 12:49 PM EDT us Ирина Lopez MD LAB POINT OF CARE TE ST DOCKED DEVICE UNSOLICITED RESULTS Final Result Performing Organization Address City/[facility]/ZIP Co de Phone Number [facility] [address] [place] [address] * (ABNORMAL) Magnesium, Plasma (03/30/2025 10:57 AM EDT) Magnesium, Plasma 3.1(H) 1.9 - 2.4 mg/dL 03/30/2025 11:49 AM EDT [facility] Blood Venous blood specimen / Unknown Venipuncture / Unknown 03/30/2025 10:57 AM EDT 03/30/2025 11:16 AM EDT Scarlet Gamboa [employer] LAB BLOOD ORDERABLES Final Re sult Performing Organization Address City/[facility]/ZIP Co de Phone Number [facility] [address] [place] [address] * (ABNORMAL) Renal function panel (03/30/2025 10:57 AM EDT) Glucose, Plasma 236(H) 74 - 99 mg/dL 03/30/2025 11:49 AM EDT [facility] BUN, Plasma 20 8 - 23 mg/dL 03/30/2025 11:49 AM EDT [facility] Creatinine, Plasma 1.64(H) 0.70 - 1.20 mg/dL 03/30/2025 11:49 AM EDT [facility] BUN/Creatinine Ratio 12 03/30/2025 11:49 AM EDT [facility] Sodium, Plasma 132(L) 136 - 145 mmol/L 03/30/2025 11:49 AM EDT [facility] Potassium, Plasma 4.6 3.6 - 4.9 mmol/L 03/30/2025 11:49 AM EDT [facility] Chloride, Plasma 100 97 - 107 mmol/L 03/30/2025 11:49 AM EDT [facility] CO2, Plasma 21(L) 22 - 29 mmol/L 03/30/2025 11:49 AM EDT [facility] Anion Gap 11 6 - 16 mmol/L 03/30/2025 11:49 AM EDT [facility] Total Calcium, Plasma 7.4(L) 8.9 - 10.2 mg/dL 03/30/2025 11:49 AM EDT [facility] Phosphorus, Plasma 2.6 2.5 - 4.5 mg/dL 03/30/2025 11:49 AM EDT [facility] Albumin, Plasma 3.0(L) 3.5 - 5.2 g/dL 03/30/2025 11:49 AM EDT [facility] eGFRcr 42.5 mL/min/1.7 3m*2 03/30/2025 11:49 AM EDT [facility] Comment:Reported eGFRcr in m L/min/1.73m2 is based the CKD-EPI 2020 equation that does not use a race coefficient. Blood Venous blood specimen / Unknown Venipuncture / Unknown 03/30/2025 10:57 AM EDT 03/30/2025 11:16 AM EDT us Ирина Lopez MD LAB BLOOD ORDERABLES Final R esult [facility] [address] [place] [address] * (ABNORMAL) POCT glucose meter (03/30/2025 10:56 [...] Comment 03/30/2025 11:00 AM EDT [facility] Software Quality Specialist ID Cata Gibbs 11:00 AM EDT [facility] Device ID [id number] 03/30/2025 11:00 AM EDT [facility] Specimen Type POC Venous 03/30/2025 11:00 AM EDT [facility] Blood Venous blood specimen / Unknown 03/30/2025 10:56 AM EDT 03/30/2025 11:00 AM EDT us Ирина Lopez MD LAB POINT OF CARE TE ST DOCKED DEVICE UNSOLICITED RESULTS Final Result Performing Organization Address [facility] de Phone Number [facility] [address] [place] [address] * (ABNORMAL) POCT glucose meter (03/30/2025 9:38 AM EDT) POCT Glucose 271(H) 74 - 99 mg/dL [...] 03/30/2025 9:39 AM EDT [facility] Software Quality Specialist ID Cata Gibbs 9:39 AM EDT [facility] Device ID [id number] 03/30/2025 9:39 AM EDT [facility] Specimen Type POC Venous 03/30/2025 9:39 AM EDT [facility] Blood Venous blood specimen / Unknown 03/30/2025 9:38 AM EDT 03/30/2025 9:39 AM EDT us Ирина Lopez MD LAB POINT OF CARE TE ST DOCKED DEVICE UNSOLICITED RESULTS Final Result Performing Organization Address [facility] de Phone Number [facility] [address] [place] [address] * ECG Adult (03/30/2025 8:37 AM EDT) EKG DIAGNOSIS CLASS Abnormal MUSE ECG Ventricular Rate 81 BPM MUSE ECG Atrial Rate 81 BPM MUSE ECG DC Interval 170 ms MUSE ECG QRSD Interval 104 ms MUSE ECG QT Interval 416 ms MUSE ECG QTC Interval 483 ms MUSE ECG P [place] 39 degrees MUSE ECG R [place] -51 degrees MUSE ECG T Wave [place] -15 degrees MUSE ECG Diagnosis Poor data [...] ECG ORDERABLES Final Result Performing Organization Address City/[facility]/ZIP Co de Phone Number MUSE ECG * (ABNORMAL) POCT glucose meter (03/30/2025 8:10 AM EDT) POCT Glucose 164(H) 74 - 99 mg/dL 03/30/2025 8:11 AM EDT [facility] Comment:Accuracy of [...] Comment 03/30/2025 8:11 AM EDT [facility] Software Quality Specialist ID Cata Gibbs 8:11 AM EDT [facility] Device ID [id number] 03/30/2025 8:11 AM EDT [facility] Specimen Type POC Venous 03/30/2025 8:11 AM EDT [facility] Blood Venous blood specimen / Unknown 03/30/2025 8:10 AM EDT 03/30/2025 8:11 AM EDT Ирина Lopez MD LAB POINT OF CARE TE ST DOCKED DEVICE UNSOLICITED RESULTS Final Result [facility] [address] [place] [address] * (ABNORMAL) Renal function panel (03/30/2025 4:05 AM EDT) [facility] Glucose, Plasma 207(H) 74 - 99 mg/dL 03/30/2025 4:40 AM EDT [facility] BUN, Plasma 18 8 - 23 mg/dL 03/30/2025 4:40 AM EDT [facility] Creatinine, Plasma 1.41(H) 0.70 - 1.20 mg/dL 03/30/2025 4:40 AM EDT [facility] BUN/Creatinine Ratio 13 03/30/2025 4:40 AM EDT [facility] Sodium, Plasma 134(L) 136 - 145 mmol/L 03/30/2025 4:40 AM EDT [facility] Potassium, Plasma 5.8(H) 3.6 - 4.9 mmol/L 03/30/2025 4:40 AM EDT [facility] Chloride, Plasma 101 97 - 107 mmol/L 03/30/2025 4:40 AM EDT [facility] CO2, Plasma 20(L) 22 - 29 mmol/L 03/30/2025 4:40 AM EDT [facility] Anion Gap 13 6 - 16 mmol/L 03/30/2025 4:40 AM EDT [facility] Total Calcium, Plasma 7.7(L) 8.9 - 10.2 mg/dL 03/30/2025 4:40 AM EDT [facility] Phosphorus, Plasma 3.0 2.5 - 4.5 mg/dL 03/30/2025 4:40 AM EDT [facility] Albumin, Plasma 3.2(L) 3.5 - 5.2 g/dL 03/30/2025 4:40 AM EDT [facility] eGFRcr 51.0 mL/min/1.7 3m*2 03/30/2025 4:40 AM EDT [facility] Comment:Reported eGFRcr in m L/min/1.73m2 is based the CKD-EPI 2020 equation that does not use a race coefficient. Blood Arterial blood specimen / Unknown Arterial Puncture / Unknown 03/30/2025 4:05 AM EDT 03/30/2025 4:11 AM EDT Ирина Lopez MD LAB BLOOD ORDERABLES Final R esult [facility] [address] [place] [address] * (ABNORMAL) Magnesium (03/30/2025 4:05 AM EDT) [facility] Magnesium, Plasma 1.4(L) 1.9 - 2.4 mg/dL 03/30/2025 4:40 AM EDT [facility] Blood Arterial blood specimen / Unknown Arterial Puncture / Unknown 03/30/2025 4:05 AM EDT 03/30/2025 4:11 AM EDT Ирина Lopez MD LAB BLOOD ORDERABLES Final R esult Performing Organization Address City/[facility]/ZIP Co de Phone Number [facility] [address] [place] [address] * (ABNORMAL) CBC W/O Differential (03/30/2025 4:05 AM EDT) [facility] WBC Count 9.64 3.70 - 10.30 10*3/uL LAB HEMATOLOGY METHOD 03/30/2025 4:19 AM EDT [facility] RBC Count 2.91(L) 4.60 - 6.10 10*6/uL LAB HEMATOLOGY METHOD 03/30/2025 4:19 AM EDT [facility] HGB 8.8(L) 13.7 - 17.5 g/dL LAB HEMATOLOGY METHOD 03/30/2025 4:19 AM EDT [facility] HCT 25.8(L) 40.0 - 51.0 % LAB HEMATOLOGY METHOD 03/30/2025 4:19 AM EDT [facility] Platelet Count 190 155 - 369 10*3/uL LAB HEMATOLOGY METHOD 03/30/2025 4:19 AM EDT [facility] MCV 89 79 - 98 fL LAB HEMATOLOGY METHOD 03/30/2025 4:19 AM EDT [facility] MCH 30.2 26.0 - 32.0 pg LAB HEMATOLOGY METHOD 03/30/2025 4:19 AM EDT [facility] MCHC 34.1 30.7 - 35.5 g/dL LAB HEMATOLOGY METHOD 03/30/2025 4:19 AM EDT [facility] RDW 12.6 11.5 - 14.5 % LAB HEMATOLOGY METHOD 03/30/2025 4:19 AM EDT [facility] MPV 9.6 8.8 - 12.5 fL LAB HEMATOLOGY METHOD 03/30/2025 4:19 AM EDT [facility] nRBC 0.0 <=0.0 per 100 WBCs LAB HEMATOLOGY METHOD 03/30/2025 4:19 AM EDT [facility] Blood Arterial blood specimen / Unknown Arterial Puncture / Unknown 03/30/2025 4:05 AM EDT 03/30/2025 4:11 AM EDT us Ирина Lopez MD LAB BLOOD ORDERABLES Final R esult [facility] [address] [place] [address] * XR Chest 1 View (03/30/2025 1:35 [...] 9:17 PM Final report signed by Merly Slaeh MD on 03/29/2025 9:18 PM Ирина Lopez MD IMG XR PROCEDURES Final Resu lt * Creatinine, Plasma (03/29/2025 7:58 PM EDT) Creatinine, Plasma 1.08 0.70 - 1.20 mg/dL 03/29/2025 8:39 PM EDT [facility] eGFRcr 70.2 mL/min/1.7 3m*2 03/29/2025 8:39 PM EDT [facility] Comment:Reported eGFRcr in m L/min/1.73m2 is based the CKD-EPI 2020 equation that does not use a race coefficient. Blood Arterial blood specimen / Unknown Arterial Puncture / Unknown 03/29/2025 7:58 PM EDT 03/29/2025 8:05 PM EDT us Ирина Lopez MD LAB BLOOD ORDERABLES Final R esult [facility] [address] [place] [address] * (ABNORMAL) Renal Function Panel, Plasma (03/29/2025 7:58 PM EDT) Glucose, Plasma 183(H) 74 - 99 mg/dL 03/29/2025 8:39 PM EDT [facility] BUN, Plasma 13 8 - 23 mg/dL 03/29/2025 8:39 PM EDT [facility] Creatinine, Plasma 1.08 0.70 - 1.20 mg/dL 03/29/2025 8:39 PM EDT [facility] BUN/Creatinine Ratio 12 03/29/2025 8:39 PM EDT [facility] Sodium, Plasma 136 136 - 145 mmol/L 03/29/2025 8:39 PM EDT [facility] Potassium, Plasma 4.4 3.6 - 4.9 mmol/L 03/29/2025 8:39 PM EDT [facility] Chloride, Plasma 104 97 - 107 mmol/L 03/29/2025 8:39 PM EDT [facility] CO2, Plasma 21(L) 22 - 29 mmol/L 03/29/2025 8:39 PM EDT [facility] Anion Gap 11 6 - 16 mmol/L 03/29/2025 8:39 PM EDT [facility] Total Calcium, Plasma 7.9(L) 8.9 - 10.2 mg/dL 03/29/2025 8:39 PM EDT [facility] Phosphorus, Plasma 2.9 2.5 - 4.5 mg/dL 03/29/2025 8:39 PM EDT [facility] Albumin, Plasma 3.2(L) 3.5 - 5.2 g/dL 03/29/2025 8:39 PM EDT [facility] eGFRcr 70.2 mL/min/1.7 3m*2 03/29/2025 8:39 PM EDT [facility] Comment:Reported eGFRcr in m L/min/1.73m2 is based the CKD-EPI 2020 equation that does not use a race coefficient. Blood Arterial blood specimen / Unknown Arterial Puncture / Unknown 03/29/2025 7:58 PM EDT 03/29/2025 8:05 PM EDT us Ирина Lopez MD LAB BLOOD ORDERABLES Final R esult Performing Organization Address City/[facility]/ZIP Co de Phone Number [facility] [address] [place] [address] * (ABNORMAL) Magnesium, Plasma (03/29/2025 7:58 PM EDT) Pathologist [facility] [place] Magnesium, Plasma 1.3(L) 1.9 - 2.4 mg/dL 03/29/2025 8:39 PM EDT [facility] Blood Arterial blood specimen / Unknown Arterial Puncture / Unknown 03/29/2025 7:58 PM EDT 03/29/2025 8:05 PM EDT Ирина Lopez MD LAB BLOOD ORDERABLES Final R esult [facility] [address] [place] [address] * Fibrinogen (03/29/2025 7:58 PM EDT) Fibrinogen, Quantitative (Clottable) 294 208 - 459 mg/dL LAB COAGULATION METHOD 03/29/2025 8:38 PM EDT [facility] Blood Arterial blood specimen / Unknown Arterial Puncture / Unknown 03/29/2025 7:58 PM EDT 03/29/2025 8:05 PM EDT Kiana Dakota Naseem WILSON LAB BLOOD ORDERABLES Final R esult Performing Organization Address [facility] Co de Phone Number [facility] [address] [place] [address] * Protime-INR (03/29/2025 7:58 PM EDT) Prothrombin Time 13.8 12.0 - 14.3 sec LAB COAGULATION METHOD 03/29/2025 8:38 PM EDT [facility] INR 1.0 0.9 - 1.1 LAB COAGULATION METHOD 03/29/2025 8:38 PM EDT [facility] Blood Arterial blood specimen / Unknown Arterial Puncture / Unknown 03/29/2025 7:58 PM EDT 03/29/2025 8:05 PM EDT Narrative [facility] - 03/29/2025 8:38 PM EDT OPTIMAL INR RANGES FOR PATIENT ON ORAL ANTICOAGULANT THERAPY Prevention of venous thromboembolism INR 2.0 to 3.0 In patients with heart disease: Atrial fibrillation INR 2.0 to 3.0 Valvular heart disease INR 2.0 to 3.0 Tissue heart valves INR 2.0 to 3.0 Mechanical prosthetic valves INR 2.5 to 3.5 Prevention of recurrent AR INR 2.5 to 3.5 Kiana Gusman CRNA LAB BLOOD ORDERABLES Final R esult Performing Organization Address [facility] Co de Phone Number [facility] [address] [place] [address] * (ABNORMAL) CBC and differential (03/29/2025 7:58 PM EDT) WBC Count 8.18 3.70 - 10.30 10*3/uL LAB HEMATOLOGY METHOD 03/29/2025 8:29 PM EDT [facility] RBC Count 3.11(L) 4.60 - 6.10 10*6/uL LAB HEMATOLOGY METHOD 03/29/2025 8:29 PM EDT [facility] HGB 9.2(L) 13.7 - 17.5 g/dL LAB HEMATOLOGY METHOD 03/29/2025 8:29 PM EDT [facility] HCT 27.7(L) 40.0 - 51.0 % LAB HEMATOLOGY METHOD 03/29/2025 8:29 PM EDT [facility] Platelet Count 174 155 - 369 10*3/uL LAB HEMATOLOGY METHOD 03/29/2025 8:29 PM EDT [facility] MCV 89 79 - 98 fL LAB HEMATOLOGY METHOD 03/29/2025 8:29 PM EDT [facility] MCH 29.6 26.0 - 32.0 pg LAB HEMATOLOGY METHOD 03/29/2025 8:29 PM EDT [facility] MCHC 33.2 30.7 - 35.5 g/dL LAB HEMATOLOGY METHOD 03/29/2025 8:29 PM EDT [facility] RDW 12.6 11.5 - 14.5 % LAB HEMATOLOGY METHOD 03/29/2025 8:29 PM EDT [facility] MPV 9.3 8.8 - 12.5 fL LAB HEMATOLOGY METHOD 03/29/2025 8:29 PM EDT [facility] nRBC 0.0 <=0.0 per 100 WBCs LAB HEMATOLOGY METHOD 03/29/2025 8:29 PM EDT [facility] Differential Type Automated LAB HEMATOLOGY METHOD 03/29/2025 8:29 PM EDT [facility] Neutrophils % 86 % LAB HEMATOLOGY METHOD 03/29/2025 8:29 PM EDT [facility] Lymphocytes % 9 % LAB HEMATOLOGY METHOD 03/29/2025 8:29 PM EDT [facility] Monocytes % 5 % LAB HEMATOLOGY METHOD 03/29/2025 8:29 PM EDT [facility] Eosinophils % 0 % LAB HEMATOLOGY METHOD 03/29/2025 8:29 PM EDT [facility] Basophils % 0 % LAB HEMATOLOGY METHOD 03/29/2025 8:29 PM EDT [facility] Immature Granulocytes % 0 % LAB HEMATOLOGY METHOD 03/29/2025 8:29 PM EDT [facility] Neutrophils Absolute 7.00(H) 1.60 - 6.10 10*3/uL LAB HEMATOLOGY METHOD 03/29/2025 8:29 PM EDT [facility] Lymphocytes Absolute 0.71(L) 1.20 - 3.90 10*3/uL LAB HEMATOLOGY METHOD 03/29/2025 8:29 PM EDT [facility] Monocytes Absolute 0.40 0.30 - 0.90 10*3/uL LAB HEMATOLOGY METHOD 03/29/2025 8:29 PM EDT [facility] Eosinophils Absolute 0.02 0.00 - 0.50 10*3/uL LAB HEMATOLOGY METHOD 03/29/2025 8:29 PM EDT [facility] Basophils Absolute 0.02 0.00 - 0.10 10*3/uL LAB HEMATOLOGY METHOD 03/29/2025 8:29 PM EDT [facility] Immature Granulocytes Absolute 0.03 0.00 - 0.06 10*3/uL LAB HEMATOLOGY METHOD 03/29/2025 8:29 PM EDT [facility] Blood Arterial blood specimen / Unknown Arterial Puncture / Unknown 03/29/2025 7:58 PM EDT 03/29/2025 8:04 PM EDT Narrative [facility] - 03/29/2025 8:29 PM EDT Therapeutic decision making should be based on absolute values, rather than percentages. us Kiana Gusman [facility] BLOOD ORDERABLES Final R esult [facility] [address] [place] [address] * (ABNORMAL) POCT glucose meter (03/29/2025 7:43 PM EDT) POCT Glucose 153(H) 74 - 99 mg/dL 03/29/2025 7:45 PM EDT [facility] Comment:Accuracy of a glucos e result [...] for testing. Comment 03/29/2025 7:45 PM EDT [facility] Software Quality Specialist ID Radha Slater 03/29/20 7:45 PM EDT [facility] Device ID [id number] 03/29/2025 7:45 PM EDT [facility] Specimen Type POC Capillary 03/29/2025 7:45 PM EDT [facility] Blood Capillary blood specimen / Unknown 03/29/2025 7:43 PM EDT 03/29/2025 7:45 PM EDT Ирина Lopez MD LAB POINT OF CARE TE ST DOCKED DEVICE UNSOLICITED RESULTS Final Result [facility] [address] [place] [address] * Surgical Pathology Exam (03/29/2025 5:10 PM EDT) Case Report Surgical Pathology Case: [id number] Authorizing Provider: Ирина Lopez MD Collected: 03/29/2025 1716 Ordering Location: [facility] Received: 03/30/2025 0755 Pathologist: Cindy [...] Other (specify site), lipoma 2:45 PM EDT [facility] Final Diagnosis A. [...] (0/2). G. SOFT TISSUE, EXCISION: - LIPOMA. 2:45 PM EDT [facility] at 1445 EDT Synoptic Checklist [...] pN Category: pN0 5 2:45 PM EDT [facility] Clinical Information Non-small cell cancer of left lung 5 2:45 PM EDT [facility] Intraoperative Consultation A. BRONCHIAL MARGIN FSA: No tumor seen. Todd Gibbs MD. 03/29/2025 @ 1745. 5 2:45 PM EDT [facility] Special and Immunohistochemical Stains Special Stain: [id number] Elastic Trichrome: Demonstrates visceral pleural invasion F8-2 Elastic Trichrome: Demonstrates visceral pleural invasion All controls show appropriate reactivity. All immunohistochemis try, in situ hybridization, and histochemical tests were developed by and are performed at the [facility], [address] [place] [address]. All tests reported here, except those addressing [...] on decalcified specimens. 5 2:45 PM EDT [facility] Gross Description A. BRONCHIAL MARGIN The specimen is received fresh for frozen section, labeled b ronchial margin , and consists of a 1.5 x 1.0 x 0.4 cm leggett-pink portion of soft tissue. The specimen is entirely submitted for frozen section, and remainder of the block is submitted in cassette A1. SWATI Wong ([facility]) B. LEVEL 5 LYMPH NODE X1 The [...] 0.3-0.6 cm in greatest dimension are identified. Director Mission sections are submitted as follows: F1: Bronchial margin F2: Vascular margins F3: Nearest stapled margin, en face F4: Grossly unremarkable parenchyma F5-F10: Mass, entirely submitted F11: Two intact lymph nodes Cold Time: 13h 43m SWATI Wong ([facility]) G. LIPOMA The specimen is received fresh and placed in formalin, labeled l ipoma , and consists of a 5.8 x 5.6 x 2.1 cm unoriented portion of leggett-yellow lobulated fibroadipose tissue. The external surface is inked blue. Sectioning reveals a leggett-yellow lobulated cut surface. No areas of hemorrhage or necrosis are identified. Director Mission sections are submitted in cassettes G1-G3. Cold Time: 13h 05m SWATI Wong ([facility]) 2:45 PM EDT [facility] Note: A resident was involved in the service. I attest I examined the relevant preparations for the specimens and confirmed the diagnosis or interpretation. 2:45 PM EDT [facility] Tissue Structure of [...] MD LAB PATHOLOGY ORDERABLES Fin al Result [facility] [address] [place] [address] * (ABNORMAL) Blood gas panel, arterial (03/29/2025 4:05 PM EDT) pH, Arterial 7.38 7.31 - 7.42 LAB HEMATOLOGY METHOD 03/29/2025 4:13 PM EDT [facility] pCO2, Arterial 45 32 - 45 mmHg LAB HEMATOLOGY METHOD 03/29/2025 4:13 PM EDT [facility] pO2, Arterial 216 >70 mmHg LAB HEMATOLOGY METHOD 03/29/2025 4:13 PM EDT [facility] SO2, Measured, Arterial 100(H) 94 - 98 % LAB HEMATOLOGY METHOD 03/29/2025 4:13 PM EDT [facility] Base Excess, Arterial 1.2 -2.0 - 3.0 mmol/L LAB HEMATOLOGY METHOD 03/29/2025 4:13 PM EDT [facility] Bicarbonate, Calculated, Arterial 27(H) 22 - 26 mmol/L LAB HEMATOLOGY METHOD 03/29/2025 4:13 PM EDT [facility] Hematocrit, Whole Blood 31.6(L) 40.0 - 51.0 % LAB HEMATOLOGY METHOD 03/29/2025 4:13 PM EDT [facility] Sodium, Whole Blood 138 136 - 145 mmol/L LAB HEMATOLOGY METHOD 03/29/2025 4:13 PM EDT [facility] Potassium, Whole Blood 3.8 3.6 - 4.9 mmol/L LAB HEMATOLOGY METHOD 03/29/2025 4:13 PM EDT [facility] Chloride, Whole Blood 103 97 - 107 mmol/L LAB HEMATOLOGY METHOD 03/29/2025 4:13 PM EDT [facility] Glucose, Whole Blood 123(H) 74 - 99 mg/dL LAB HEMATOLOGY METHOD 03/29/2025 4:13 PM EDT [facility] Ionized Calcium, Whole Blood 4.4(L) 4.6 - 5.1 mg/dL LAB HEMATOLOGY METHOD 03/29/2025 4:13 PM EDT [facility] Lactate, Arterial, Whole Blood 0.8 0.5 - 1.6 mmol/L LAB HEMATOLOGY METHOD 03/29/2025 4:13 PM EDT [facility] Blood Arterial blood specimen / Unknown 03/29/2025 4:05 PM EDT 03/29/2025 4:11 PM EDT Comment:Pre-op diagnosis: Non-small cell cancer of left lung us Ирина Lopez MD LAB BLOOD ORDERABLES Final R esult Performing Organization Address City/[facility]/ZIP Co de Phone Number [facility] [address] [place] [address] * APTT (03/29/2025 4:04 PM EDT) aPTT 28 25 - 35 sec LAB COAGULATION METHOD 03/29/2025 4:39 PM EDT [facility] Blood Arterial blood specimen / Unknown 03/29/2025 4:04 PM EDT 03/29/2025 4:18 PM EDT Comment:Pre-op diagnosis: Non-small cell cancer of left lung us Ирина Lopez MD LAB BLOOD ORDERABLES Final R esult Performing Organization Address City/[facility]/ZIP Co de Phone Number [facility] [address] [place] [address] * Prothrombin Time/INR (03/29/2025 4:04 PM EDT) Prothrombin Time 13.4 12.0 - 14.3 sec LAB COAGULATION METHOD 03/29/2025 4:39 PM EDT [facility] INR 1.0 0.9 - 1.1 LAB COAGULATION METHOD 03/29/2025 4:39 PM EDT [facility] Blood Arterial blood specimen / Unknown 03/29/2025 4:04 PM EDT 03/29/2025 4:18 PM EDT Comment:Pre-op diagnosis: Non-small cell cancer of left lung Narrative [facility] - 03/29/2025 4:39 PM EDT OPTIMAL INR RANGES FOR PATIENT ON ORAL ANTICOAGULANT THERAPY Prevention of venous thromboembolism INR 2.0 to 3.0 In patients with heart disease: Atrial fibrillation INR 2.0 to 3.0 Valvular heart disease INR 2.0 to 3.0 Tissue heart valves INR 2.0 to 3.0 Mechanical prosthetic valves INR 2.5 to 3.5 Prevention of recurrent AR INR 2.5 to 3.5 Ирина Lopez MD LAB BLOOD ORDERABLES Final R esult Performing Organization Address [facility] Co de Phone Number [facility] [address] [place] [address] * Fibrinogen, Quantitative (Clottable) (03/29/2025 4:04 PM EDT) [facility] Fibrinogen, Quantitative (Clottable) 336 208 - 459 mg/dL LAB COAGULATION METHOD 03/29/2025 4:39 PM EDT [facility] Blood Arterial blood specimen / Unknown 03/29/2025 4:04 PM EDT 03/29/2025 4:18 PM EDT Comment:Pre-op diagnosis: Non-small cell cancer of left lung Ирина Lopez MD LAB BLOOD ORDERABLES Final R esult Performing Organization Address [facility] Co de Phone Number [facility] [address] [place] [address] * (ABNORMAL) CBC W/O Differential (03/29/2025 4:04 PM EDT) Pathologist [facility] [place] WBC Count 3.70 3.70 - 10.30 10*3/uL LAB HEMATOLOGY METHOD 03/29/2025 4:28 PM EDT [facility] RBC Count 3.52(L) 4.60 - 6.10 10*6/uL LAB HEMATOLOGY METHOD 03/29/2025 4:28 PM EDT [facility] HGB 10.5(L) 13.7 - 17.5 g/dL LAB HEMATOLOGY METHOD 03/29/2025 4:28 PM EDT [facility] HCT 31.1(L) 40.0 - 51.0 % LAB HEMATOLOGY METHOD 03/29/2025 4:28 PM EDT [facility] Platelet Count 184 155 - 369 10*3/uL LAB HEMATOLOGY METHOD 03/29/2025 4:28 PM EDT [facility] MCV 88 79 - 98 fL LAB HEMATOLOGY METHOD 03/29/2025 4:28 PM EDT [facility] MCH 29.8 26.0 - 32.0 pg LAB HEMATOLOGY METHOD 03/29/2025 4:28 PM EDT [facility] MCHC 33.8 30.7 - 35.5 g/dL LAB HEMATOLOGY METHOD 03/29/2025 4:28 PM EDT [facility] RDW 12.6 11.5 - 14.5 % LAB HEMATOLOGY METHOD 03/29/2025 4:28 PM EDT [facility] MPV 9.4 8.8 - 12.5 fL LAB HEMATOLOGY METHOD 03/29/2025 4:28 PM EDT [facility] nRBC 0.0 <=0.0 per 100 WBCs LAB HEMATOLOGY METHOD 03/29/2025 4:28 PM EDT [facility] Blood Arterial blood specimen / Unknown 03/29/2025 4:04 PM EDT 03/29/2025 4:20 PM EDT Comment:Pre-op diagnosis: Non-small cell cancer of left lung us Ирина Lopez MD LAB BLOOD ORDERABLES Final R esult [facility] [address] [place] [address] * (ABNORMAL) Blood gas panel, arterial (03/29/2025 2:29 PM EDT) pH, Arterial 7.39 7.31 - 7.42 LAB HEMATOLOGY METHOD 03/29/2025 2:35 PM EDT [facility] pCO2, Arterial 44 32 - 45 mmHg LAB HEMATOLOGY METHOD 03/29/2025 2:35 PM EDT [facility] pO2, Arterial 190 >70 mmHg LAB HEMATOLOGY METHOD 03/29/2025 2:35 PM EDT [facility] SO2, Measured, Arterial 100(H) 94 - 98 % LAB HEMATOLOGY METHOD 03/29/2025 2:35 PM EDT [facility] Base Excess, Arterial 1.5 -2.0 - 3.0 mmol/L LAB HEMATOLOGY METHOD 03/29/2025 2:35 PM EDT [facility] Bicarbonate, Calculated, Arterial 27(H) 22 - 26 mmol/L LAB HEMATOLOGY METHOD 03/29/2025 2:35 PM EDT [facility] Hematocrit, Whole Blood 32.4(L) 40.0 - 51.0 % LAB HEMATOLOGY METHOD 03/29/2025 2:35 PM EDT [facility] Sodium, Whole Blood 139 136 - 145 mmol/L LAB HEMATOLOGY METHOD 03/29/2025 2:35 PM EDT [facility] Potassium, Whole Blood 3.6 3.6 - 4.9 mmol/L LAB HEMATOLOGY METHOD 03/29/2025 2:35 PM EDT [facility] Chloride, Whole Blood 104 97 - 107 mmol/L LAB HEMATOLOGY METHOD 03/29/2025 2:35 PM EDT [facility] Glucose, Whole Blood 96 74 - 99 mg/dL LAB HEMATOLOGY METHOD 03/29/2025 2:35 PM EDT [facility] Ionized Calcium, Whole Blood 4.4(L) 4.6 - 5.1 mg/dL LAB HEMATOLOGY METHOD 03/29/2025 2:35 PM EDT [facility] Lactate, Arterial, Whole Blood 1.4 0.5 - 1.6 mmol/L LAB HEMATOLOGY METHOD 03/29/2025 2:35 PM EDT [facility] Blood Arterial blood specimen / Unknown 03/29/2025 2:29 PM EDT 03/29/2025 2:34 PM EDT Comment:Pre-op diagnosis: Non-small cell cancer of left lung us Ирина Lopez MD LAB BLOOD ORDERABLES Final R esult [facility] [address] [place] [address] * (ABNORMAL) POCT glucose meter (03/29/2025 12:48 [...] Comment 03/29/2025 12:50 PM EDT [facility] Software Quality Specialist ID Rosalie Cuevas 03/29/20 12:50 PM EDT [facility] Device ID [id number] 03/29/2025 12:50 PM EDT [facility] Specimen Type POC Venous 03/29/2025 12:50 PM EDT [facility] Blood Venous blood specimen / Unknown 03/29/2025 12:48 PM EDT 03/29/2025 12:50 PM EDT us Ирина Lopez MD LAB POINT OF CARE TE ST DOCKED DEVICE UNSOLICITED RESULTS Final Result [facility] [address] [place] [address] * (ABNORMAL) Blood gas, venous (03/29/2025 12:27 PM EDT) pH, Venous 7.36 7.32 - 7.43 LAB HEMATOLOGY METHOD 03/29/2025 12:51 PM EDT [facility] pCO2, Venous 49 40 - 55 mmHg LAB HEMATOLOGY METHOD 03/29/2025 12:51 PM EDT [facility] pO2, Venous 54(H) 25 - 40 mmHg LAB HEMATOLOGY METHOD 03/29/2025 12:51 PM EDT [facility] SO2, Measured, Venous 87(H) 65 - 80 % LAB HEMATOLOGY METHOD 03/29/2025 12:51 PM EDT [facility] Base Excess, Venous 1.7 -2.0 - 3.0 mmol/L LAB HEMATOLOGY METHOD 03/29/2025 12:51 PM EDT [facility] Bicarbonate, Calculated, Venous 28(H) 22 - 26 mmol/L LAB HEMATOLOGY METHOD 03/29/2025 12:51 PM EDT [facility] Hematocrit, Whole Blood 39.2(L) 40.0 - 51.0 % LAB HEMATOLOGY METHOD 03/29/2025 12:51 PM EDT [facility] Sodium, Whole Blood 140 136 - 145 mmol/L LAB HEMATOLOGY METHOD 03/29/2025 12:51 PM EDT [facility] Potassium, Whole Blood 4.0 3.6 - 4.9 mmol/L LAB HEMATOLOGY METHOD 03/29/2025 12:51 PM EDT [facility] Chloride, Whole Blood 103 97 - 107 mmol/L LAB HEMATOLOGY METHOD 03/29/2025 12:51 PM EDT [facility] Glucose, Whole Blood 97 74 - 99 mg/dL LAB HEMATOLOGY METHOD 03/29/2025 12:51 PM EDT [facility] Lactate, Venous, Whole Blood 1.6 0.5 - 2.2 mmol/L LAB HEMATOLOGY METHOD 03/29/2025 12:51 PM EDT [facility] Ionized Calcium, Whole Blood 4.5(L) 4.6 - 5.1 mg/dL LAB HEMATOLOGY METHOD 03/29/2025 12:51 PM EDT [facility] Blood Venous blood specimen / Unknown Venipuncture / Unknown 03/29/2025 12:27 PM EDT 03/29/2025 12:49 PM EDT Robert Santos MD LAB BLOOD ORDERABLES Final Resu lt [facility] [address] [place] [address] * Type and Screen (03/29/2025 12:27 PM [...] LAB BLOOD BANK TEST ORDERABLES Final Result BLOOD BANK [address] [place] [address], documented in this encounter Visit Diagnoses Diagnosis Non-small cell cancer of left lung (CMS/HCC)- Primary Non-small cell cancer of left lung (CMS/HCC) [...] Given 04/02/2025 8:50 AM EDT 81 mg bupivacaine PF (Marcaine) 0.25 % injection As needed, Starting on Sat03/29/25 at 1437, Until Sat03/29/25 at 1924, Routine, Intraprocedure Given 03/29/2025 2:37 PM EDT 30 mL dextrose 50 % solution 12.5-25 g 12.5-25 g, Intravenous, Every 15 min PRN, Starting on Sat03/30/25 at 1105, Until Sat04/04/25 at 1418, Routine, Recovery(Phase II-Outpatient)/On Unit(Inpatient), low blood sugar glucagon (human recombinant) injection 1 mg 1 [...] SBP > 160 and HR < 60 insulin lispro (Admelog) 100 units/mL injection - [...] Le ft Lower Abdomen insulin lispro (Admelog) injection - Correction - Nighttime Dose 0-3 Units, Subcutaneous, 2 times nightly (2100 & 0300), First dose on Sat03/31/25 at 2100, Until Discontinued, Routine labetalol (Normodyne,Trandate) injection 20 mg 20 mg, Intravenous, Every 4 hours PRN, Starting on Sat03/30/25 at 0812, Until Sat04/04/25 at 1418, Routine, SBP > 160 and HR < 60 lidocaine (Lidoderm) 5 % patch 1 patch 1 patch, Apply externally, Daily, First dose on Sat03/29/25 at 2030, Until Discontinued, Administer over 12 Hours, Routine Medication Applied 04/04/2025 9:39 AM EDT 1 patch Flank Medication Applied 04/02/2025 8:51 AM EDT 1 patch Chest Medication Applied 04/01/2025 9:16 AM EDT 1 patch Back methocarbamol (Robaxin) tablet 500 mg 500 mg, [...] Given 03/30/2025 8:14 AM EDT 5 mg polyethylene glycol (Miralax) packet 17 g 17 g, Oral, Daily, First dose on Sat03/30/25 at 0915, Until Discontinued, Routine Given 04/04/2025 9:37 AM EDT 17 g Given 04/03/2025 8:52 AM EDT 17 g Given 04/01/2025 9:14 AM EDT 17 g prochlorperazine (Compazine) injection 5 mg 5 mg, [...] Given 04/03/2025 8:53 AM EDT 2 tablets tamsulosin (Flomax) 24 hr capsule 0.4 mg [...] Iniguez RN) 0937 (Given - Provider: Carmella Iniguez, BUCK) heparin (porcine) injection 5,000 Units 5,000 Units, [...] (Dose Auto Held - Provider: Scarlet Gamboa DRUM HANDLER) 0600 (Dose Auto Held - Provider: Scarlet Gamboa DRUM HANDLER)1400 (Dose Auto Held - Provider: Scarlet Gamboa DRUM HANDLER)2200 (Dose Auto Held - Provider: Scarlet Gamboa DRUM HANDLER) 0600 (Dose Auto Held - Provider: Scarlet Gamboa DRUM HANDLER)1418 (Unheld by provider - Provider: Automatic Discharge [...] Dose 0-3 Units, Subcutaneous, 2 times nightly (2099 & 299), First dose on Sat03/31/25 at 2100, Until [...] Provider: Xochitl Fagan)1303 (Given - Provider: Carmella Iniguez, BUCK)1830 (Given - Provider: Carmella Iniguez, BUCK)2333 (Given - Provider: Pam Trejo, BUCK) 0615 (Given - Provider: Pam Trejo RN)1200 (Canceled Entry - Provider: Automatic Discharge Provider - Comment: Automatically canceled at discontinue of medication order) mupirocin (Bactroban) 2 % ointment 1 Application Each Nostril, 2 times daily, 10 doses, First dose on Sat04/02/25 at 1445, Last dose on Sat04/06/25 at 2100, Routine 1446 (Given - Provider: Travis Corral RN)2025 (Given - Provider: Xochitl Fagan) 0854 (Given - Provider: Carmella Iniguez RN)195 (Given - Provider: Pam Trejo RN) 0939 [...] Patient/family refused) 0853 (Given - Provider: Carmella Iniguez, BUCK)1958 (Given - Provider: Pam Trejo, BUCK) 0936 (Given - Provider: Carmella Iniguez, BUCK) tamsulosin (Flomax) 24 hr capsule 0.4 mg [...] Until Sat04/04/25 at 1418, Routine, vomiting, nausea ondansetron ODT [...] documented as of this encounter Care Teams 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
--- OUTSIDE RECORDS SUMMARY | 2025-03-29 13:34 | XMS_ITS | Encounter Summary ---
Author Organization [facility] Address [address] [place] [address] Care Team Providers Care Dinkey Brakeman Name Role Phone Forrest Nickerson JUICE TESTER Unavailable [phone] Casa Phillips MD Primary Care Provider [phone] Reason for Visit * Auth/Cert (Routine) Specialty Diagnoses / Procedures Referred By Contac t Referred To Contact Diagnoses Non-small cell cancer of left lung (CMS/HCC) Non-small cell cancer of left lung Procedures DE THORACOSCOPY SURG LOBECTOMY LEFT VATS LOBECTOMY Ирина Lopez MD [address] [facility] [address] [place] [address] Phone: tel: fax: [facility] [address] [place] [address] Phone: tel: Referral ID Status Reason Start Date Expiration Date Visits Re quested Visits Authorized [id number] 1 1 Encounter Details Date Type Department Care Team (Late st Contact Info) Description 03/29/2025 1:34 PM EDT Anesthesia Event [facility] [address] [place] [address] Jimmy Kim MD [address] [place] [address] Laquita Brand MD [address] [place] [id number] Anesthesia Record Procedure Summary Procedure Name Responsible Anesthesiologist Anesthesia Start Time Anesthesia Stop Time LEFT VATS LOBECTOMY coverted to open, Left thoracotomy, with medistinal lymph node disection and lypoma (Left) Jimmy Kim MD 03/29/25 1334 03/29/25 1931 Events Date Time Event Comment 03/29/2025 1246 1334 An Start The patient was reevaluated immediately before sedation and remains eligible for anesthesia plan. 1339 An Start Data 1339 In Room 1344 An Induction The patient was reevaluated immediately before moderate or deep sedation use and before anesthesia induction. 1348 An Intubation 1407 An one lung vent 1410 Anesthesia Ready 1416 Proc Start 1423 Reese ABG ORDERED ON one lung 1538 Reese Switched to ope n 1610 Reese Most Recent pH, Arterial: 7.38 03/29/25 16:05 pCO2, Arterial: 45 03/29/25 16:05 pO2, Arterial: 216 03/29/25 16:05 SO2, Measured, Arterial: 100 (H) 03/29/25 16:05 Base Excess, Arterial: 1.2 03/29/25 16:05 HCO3, Arterial: 27 (H) 03/29/25 16:05 Lactate, Arterial: 0.8 03/29/25 16:05 Hematocrit, Whole Blood: 31.6 (L) 03/29/25 16:05 Sodium, Whole Blood: 138 03/29/25 16:05 Potassium, Whole Blood: 3.8 03/29/25 16:05 Chloride, Whole Blood: 103 03/29/25 16:05 Glucose, Whole Blood: 123 (H) 03/29/25 16:05 Ionized Calcium, Whole Blood: 4.4 (L) 03/29/25 16:05 1806 An Two-Lung Vent 184 Reese Extubated DL tu be. Reintubated with MAC4 single lumen 8.[address], [address] lopez 1858 Proc Fin 1911 An Extubation 1918 an stop data 1923 Out of Room 1930 Handoff to Receiving I compl eted my handoff to the receiving clinician during which we: 1. Identified the patient 2. Identified the responsible provider 3. Reviewed the pertinent medical history 4. Discussed the surgical course 5. Reviewed intra-op anesthesia management and issues during anesthesia 6. Set expectations for post-procedure period 7. Allowed opportunity for questions and acknowledgement of understanding. 1931 An Stop Meds Name Total propofol (Diprivan) injection 10 mg/mL 4 00 mg Lidocaine HCl 100 MG/5ML 100 mg rocuronium (ZeMuron) injection 10 mg/mL 120 mg fentaNYL (Sublimaze) injection 50 mcg/mL 200 mcg ePHEDrine injection prefilled syringe 5 mg/mL 5 mg phenylephrine (Channing-Synephrine) prefilled syringe 1 mg/10 mL 150 mcg sugammadex (Bridion) injection 100 mg/mL 300 mg HYDROmorphone 1 MG/ML 1 mg ceFAZolin (Ancef) vial 1 g 2 g dexmedetomidine (Precedex) infusion in N aCl 4 mcg/mL 32 mcg glycopyrrolate (Robinul) injection 0.2 m g/mL 0.4 mg tranexamic acid (Cyklokapron) injection 100 mg/mL 1,000 mg naloxone (Narcan) injection 0.4 mg 0.04 mg lactated Ringer's infusion 1,000 mL * Agents Name O2 N2O Air Sevoflurane Isoflurane Desflurane Inspired Desflurane Inspired Isoflurane Inspired Sevoflurane N2O Inspired N2O * Blood No blood administrations on file. Lines, Drains, and Airways Type Details Placement Removal Chest Tube Placement Date: 03/14 04/07; Placement Time: 1803; Inserted by: Ирина Lopez; Tube Number: 1; Orientation: Left; Location: Midaxillary; Size: 24 Fr; Drainage System: [place]/nonsuction water seal drainage 03/29/25 1803 by Juliana Medina RN Peripheral IV Placement Date: 03/14 04/07; Placement Time: 1334; Catheter Size: 20 G; Orientation: Anterior, Right; Location: Forearm; Site Prep: Chlorhexidine ; Local Anesth: Injectable; Inserted by: Debby Cuevas; Insertion Attempts: 3; Patient Tolerance: Tolerated well; Removal Date: 04/03/25; Removal Time: 0500; Removal Reason: Leaking 03/29/25 1334 by Rosalie Cuevas RN 04/03/25 0500 by Xochitl Fagan ETT Placement Date: 03/14 04/07; Placement Time: 1348 (created via procedure documentation); Mask Ventilation: 2; Technique: Direct laryngoscopy; Type: ETT - single, ETT - double lumen left; Double Lumen Tube Size: 39 Fr; Location: Oral; Grade View: Grade IIa; Insertion Attempts: 1; Placement Verification: Auscultation, Bronchoscopy, Capnometry; Placed by: STEVE; Removal Date: 03/29/25; Removal Time: 191103/29/25 1348 by Kiana Gusman CRNA 03/29/25 191 by Valery Decker CRNA Urethral Catheter Placement Date: 03/14 04/07; Placement Time: 1352; Inserted by: Raquel Sharp RN; Type: Non-latex, Single lumen, Temperature probe; Size: 16 Fr.; Balloon Size: 10 mL; Urine Returned: Yes; Removal Date: 03/30/25; Removal Time: 1130 03/29/25 1352 by Raquel Sharp RN 03/30/25 1130 by Cata Gibbs RN Arterial Line Placement Date: 03/14 04/07; Placement Time: 1357 (created via procedure documentation); Size: 20 G; Orientation: Right; Location: Radial; Inserted by: STEVE; Securement: Taped; Patient Tolerance: Tolerated well; Removal Date: 03/30/25; Removal Time: 0423; Removal Reason: Per protocol 03/29/25 1357 by Kiana Gusman CRNA 03/30/25 0423 by Radha Slater RN Peripheral IV Placement Date: 03/14 04/07; Placement Time: 1400 (created via procedure documentation); Catheter Size: 18 G; Orientation: Left; Location: Hand; Technique: Anatomical landmarks; Insertion Attempts: 1; Removal Date: 04/01/25; Removal Time: 0000; Removal Reason: Leaking 03/29/25 1400 by Kiana Gusman CRNA 04/01/25 0000 by Dipak Serrano RN Wound 03/29/25; 1416; N; Y es; Surgical; Open Surg (VATS); Flank; Left, Upper; 04/03/25; 1100 03/29/25 1416 by Raquel Sharp RN 04/03/25 1100 by Iniguez, Carmella G, RN documented in this encounter Social History Tobacco [...] any time in the past 12 m [facility], were you homeless or living in a correction (including now)? No 03/31/2025 Utilities Answer Date Recorded In the past 12 months has th e electric, gas, oil, or water company threatened to shut off services in your home? No 03/31/2025 Sex and Gender Information Value Date Recorded Sex Assigned at Male 01/28/2025 11:17 AM EDT Legal Sex Male 8:02 PM EDT Gender Identity Male 01/28/2025 11:17 AM EDT Sexual Orientation Not on file documented as of this encounter Miscellaneous Notes * Anesthesia Postprocedure Evaluation - Valery Decker CRNA - 03/29/2025 7:35 PM EDT Patient: Cole Feliz Jr. Anesthesia Type: general Vitals Value Taken Time BP 111/64 03/29/25 19:30 Temp 36 03/29/25 19:35 Pulse 82 03/29/25 19:34 Resp 15 03/29/25 19:34 SpO2 97 % 03/29/25 19:28 Vitals shown include unfiled device data. Anesthesia Post Evaluation Patient location during evaluation: PACU Patient participation: complete - patient participated Level of consciousness: awake Pain management: adequate (pain score 0-3) Airway patency: natural airway Cardiovascular status: acceptable and hemodynamically stable Respiratory status: acceptable and blow-by oxygen Hydration status: acceptable Nausea/Vomiting: No No notable events documented. * Anesthesia Procedure Notes - Kiana Gusman CRNA - 03/29/2025 2:28 PM EDT Associated Order(s): Peripheral IV Peripheral IV Date/Time: 03/29/2025 2:00 PM Placement Needle size: 18 G Location: hand Site prep: alcohol Technique: anatomical landmarks Attempts: 1 * Anesthesia Procedure Notes - Robert Santos MD - 03/29/2025 2:27 PM EDT Associated Order(s): Arterial Line Arterial Line: Date/Time: 03/29/2025 1:57 PM An arterial line was placed. Procedure performed using surface landmarks in the OR for the following indication(s): continuous blood pressure monitoring. A 20 gauge (size) (length), Arrow (type) catheter was placed into the Right radial artery and secured by tape. Events: patient tolerated procedure well with no complications. Staffing Performed: RECORDS ASSISTANT * Anesthesia Procedure Notes - Robert Santos MD - 03/29/2025 2:17 PM EDT Associated Order(s): Airway Airway Date/Time: 03/29/2025 1:48 PM Reason: elective Airway not difficult General Information and Staff Patient location during procedure: OR RECORDS ASSISTANT: Kiana Gusman CRNA Performed: RECORDS ASSISTANT Patient Condition Indications for airway management: anesthesia Final Airway Details Final airway type: endotracheal airway Successful airway: ETT and ETT - double lumen left Successful intubation technique: direct laryngoscopy Adjuncts used in placement: intubating stylet Endotracheal tube insertion site: oral ETT DL size (fr): 39 Cormack-Lehane Classification: grade IIa - partial view of glottis Placement verified by: chest auscultation, bronchoscopy and capnometry * Anesthesia Preprocedure Evaluation - Robert Santos MD - 03/27/2025 3:50 AM EDT Images from the original note were not included. [facility] Cole Feliz Jr. is a 79 y.o. [...] HISTORY: Surgical History[4] Allergies[5] MEDICATIONS: Current Medications[6] Robert Santos MD HPI Cole Jean Trini Ivan is a 79 y.o. male who presents with Pre-op Diagnosis * Lung nodule [R91.1] now scheduled for LEFT VATS LOBECTOMY (Left) with Ирина Lopez MD on 03/29/2025 in [facility]. Past Medical History[7] Family History[8] Social History[9] SURGICAL HISTORY: Surgical History[10] Allergies[11] MEDICATIONS: No current facility-administered medications for this encounter. Current Outpatient Medications: clopidogrel, Take 1 tablet by mouth daily. metFORMIN, Take 1 tablet by mouth 2 times a day. aspirin, Take 1 tablet by mouth daily. ROS Anesthesia: Date of last anesthetic: Conscious sedation cardiac stents ~ 4 years ago 1983 [place] finger surgery history of previous anesthesia. Does not have a history of anesthetic complications and obstructivesleep apnea. Cardiovascular: CAD (s/p cardiac stents 02/2021, on DAPT, no chest pain since, stable), carotid artery disease (patient denies), hyperlipidemia and past AK. Does not have atrial fibrillation, CHF, dyspnea, dysrhythmias or pacemaker. hypertension: is well controlled. Does not have chest pain. Cardio additional comments: OSH TTE 05/2024 EF 50%, mildly dilated RV, mildly hypokinetic RV, mild MR OSH EKG 12/2024 NSR, septal infarct, age undetermined Stopped Plavix 7 days ago, told to continue ASA. Respiratory: Does not have home oxygen. Patient has no dyspnea.no asthma: COPD: breathing at baseline.Has not had an upper respiratory infection in last 30 days. Has not had pneumonia in the last 30 days, RSV in the last 30 days or COVID in the last 30 days. Respiratory ROS additional comments: HIEN pulmonary nodule HEENT: missing teeth (edentulous).Does not have chipped teeth or loose teeth. Neurological: no seizures: Did not have a cerebrovascular accident. Musculoskeletal: arthritis. Gastrointestinal: Does not have GERD.hepatitis (patient states he was 12-13 years old when he had it, not sure what type). Does not have cirrhosis. Genitourinary: chronic renal disease (Cr 2.5-2.9): CRIBPH. Hematological/Lymphatic: no hemophilia.History of no DVT. History of no pulmonary embolism. Not in a hypercoagulable state. no history of chemotherapy no history of radiation Does not have HIV, MRSA or tuberculosis. Endocrine/Metabolic: diabetes mellitus type 2. AM glucose 91, doesn't know last A1c Does not have thyroid disorder. Labs from outside hospital from 2022 Visit Vitals Smoking Status Every Day 02/23/2025 8:55 AM Vitals Systolic 137 137 Diastolic 77 77 Visit Report Report Report Physical Exam Airway Mallampati: II Mouth opening: normal TM distance: >3 FB Neck ROM: full Comments: Full juárez Cardiovascular Rhythm: regular Rate: normal (-) murmur Dental (+) edentulous Pulmonary Breath sounds clear to auscultation (-) decreased breath sounds Rhonchi: few on exhilation. Neurological Oriented: normal to time, normal to place and normal to person and oriented to person, place and time Skin Skin: warm and dry Musculoskeletal - normal exam Extremities -normal exam Anesthesia Plan ASA 3 Plan was reviewed with: attending Anesthesia technique(s) discussed with the patient/family: general Anesthesia plan agreed upon was: general Anesthetic plan and risks discussed with patient. Use of blood products discussed with patient who consented to blood products. Robert Santos MD Airway Detailed Review Displaying the 20 most recent records Date Difficult Airway Blade Size ETT Size C-L Class Final Type Intubation Method 01/28/25 No 8.5 grade I - full view of glottis endotracheal airway direct laryngoscopy No results found for: WBC , HGB , HCT , MCV , PLT No results found for: GLUCOSE , BUN , CREATININE , BCR , NA , K , CL , CO2 , AG , CA , PROT , ALBUMIN , ALKPHOS , BILITOT [1] Past Medical History: Diagnosis Date Arthritis [...] medications for this encounter. Current Outpatient Medications: clopidogrel, Take 1 tablet by mouth daily. metFORMIN, Take 1 tablet by mouth 2 times a day. aspirin, Take 1 tablet by mouth daily. [7] Past Medical History: Diagnosis Date Arthritis CAD (coronary artery disease) Diabetes ([facility]) Hepatitis High blood pressure High cholesterol Hyperlipidemia Hypertension Type 2 diabetes mellitus [8] Family History Problem Relation Name Age of Onset Cancer Mother Lung cancer Mother Cancer Father Lung cancer Father Diabetes Other Anesthesia problems Neg Hx Malig Hyperthermia Neg Hx [9] Social History Tobacco Use Smoking status: Every Day Types: Cigars Start date: 1956 Smokeless tobacco: Never Vaping Use Vaping status: Never Used Substance Use Topics Alcohol use: Yes Alcohol/week: 14.0 standard drinks of alcohol Types: 14 Standard drinks or equivalent per week Comment: 2 oz crown royal daily Drug use: Never [10] Past Surgical History: Procedure Laterality Date CARDIAC CATHETERIZATION COLONOSCOPY CORONARY STENT PLACEMENT TENDON REPAIR [11] Allergies Allergen Reactions Cetirizine Other - please document in the comment field and Unknown - Patient states they do not know rxn details cetirizine documented in this encounter Plan of Treatment Upcoming Encounters Date Type Department Care Team (Late st Contact Info) Description 04/20/2025 10:00 AM EDT Appointment [facility]iology [address] [place] [address] 04/20/2025 10:30 AM EDT Office Visit [facility] [address] [facility], [address]nd [place] [address] Ирина Lopez MD [address] [place] [address] 07/06/2025 10:40 AM EDT Office Visit [facility] [address] [facility] [place] [address] Nikolai Naranjo MD [address] [place] [address] documented as of this encounter Procedures Procedure Name Priority Date/Time Associated Diagnosis Comments ANESTHESIA PERIPHERAL IV PLACEMENT Routine 03/29/2025 2:00 PM EDT ANESTHESIA ARTERIAL LINE PLACEMENT Routine 03/29/2025 1:57 PM EDT PB ANESTHESIA PLACEHOLDER Routine 03/29/2025 1:48 PM EDT DE AN ELECTIVE ENDOTRACHEAL AIRWAY Routine 03/29/2025 1:48 PM EDT documented in this encounter Results * Peripheral IV (03/29/2025 2:00 PM EDT) Narrative Kiana Gusman CRNA - 03/29/2025 2:00 PM EDT Kiana Gusman CRNA 03/29/2025 2:28 PM Peripheral IV Date/Time: 03/29/2025 2:00 PM Placement Needle size: 18 G Location: hand Site prep: alcohol Technique: anatomical landmarks Attempts: 1 us Robert Santos MD ANESTHESIA ORDERABLES Final Res ult * PB ANESTHESIA NON-TIMED PROCEDURE PLACEHOLDER (03/29/2025 1:57 PM EDT) Robert Bloom MD - 03/29/2025 1:57 PM EDT Robert Santos MD 03/29/2025 3:02 PM Arterial Line: Date/Time: 03/29/2025 1:57 PM An arterial line was placed. Procedure performed using surface landmarks in the OR for the following indication(s): continuous blood pressure monitoring. A 20 gauge (size) (length), Arrow (type) catheter was placed into the Right radial artery and secured by tape. Events: patient tolerated procedure well with no complications. Staffing Performed: RECORDS ASSISTANT Robert Santos MD ANESTHESIA ORDERABLES Edited Re sult - Final * DE AN ELECTIVE ENDOTRACHEAL AIRWAY, PB ANESTHESIA PLACEHOLDER (03/29/2025 1:48 PM EDT) Robert Bloom MD - 03/29/2025 1:48 PM EDT Robert Santos MD 03/29/2025 3:02 PM Airway Date/Time: 03/29/2025 1:48 PM Reason: elective Airway not difficult General Information and Staff Patient location during procedure: OR RECORDS ASSISTANT: Kiana Gusman CRNA Performed: RECORDS ASSISTANT Patient Condition Indications for airway management: anesthesia Final Airway Details Final airway type: endotracheal airway Successful airway: ETT and ETT - double lumen left Successful intubation technique: direct laryngoscopy Adjuncts used in placement: intubating stylet Endotracheal tube insertion site: oral ETT DL size (fr): 39 Cormack-Lehane Classification: grade IIa - partial view of glottis Placement verified by: chest auscultation, bronchoscopy and capnometry Robert Sanots MD ANESTHESIA ORDERABLES Edited Re sult - Final documented in this encounter Visit Diagnoses Not on filedocumented in this encounter Administered Medications Inactive Administered Medications - up to 3 most recent administrations Medication Order MAR Action Action Date Dose Rate Site ceFAZolin (Ancef) injection Intravenous, As needed, Starting on Sat03/29/25 at 1410, Until Sat03/29/25 at 1935, Routine, Anesthesia Intraprocedure Given 03/29/2025 2:10 PM EDT 2 g dexmedetomidine in NS (Precedex) 4 mcg/mL infusion Intravenous, As needed, Starting on Sat03/29/25 at 1422, Until Sat03/29/25 at 1935, Routine Given 03/29/2025 3:23 PM EDT 8 mcg Given 03/29/2025 3:21 PM EDT 8 mcg Given 03/29/2025 2:24 PM EDT 8 mcg ePHEDrine Sulfate (Akovaz) injection Intravenous, As needed, Starting on Sat03/29/25 at 1542, Until Sat03/29/25 at 1935, Routine, Anesthesia Intraprocedure Given 03/29/2025 3:42 PM EDT 5 mg fentaNYL (Sublimaze) injection Intravenous, As needed, Starting on Sat03/29/25 at 1344, Until Sat03/29/25 at 1935, Routine, Anesthesia Intraprocedure Given 03/29/2025 3:11 PM EDT 50 mcg Given 03/29/2025 2:45 PM EDT 50 mcg Given 03/29/2025 2:19 PM EDT 25 mcg glycopyrrolate (Robinul) injection Intravenous, As needed, Starting on Sat03/29/25 at 1458, Until Sat03/29/25 at 1935, Routine, Anesthesia Intraprocedure Given 03/29/2025 2:58 PM EDT 0.4 mg HYDROmorphone (Dilaudid) injection Intravenous, As needed, Starting on Sat03/29/25 at 1416, Until Sat03/29/25 at 1935, Routine, Anesthesia Intraprocedure Given 03/29/2025 3:57 PM EDT 0.5 mg Given 03/29/2025 2:19 PM EDT 0.25 mg Given 03/29/2025 2:16 PM EDT 0.25 mg lactated Ringer's infusion 100 mL/hr, Intravenous, Once, 1 dose, On Sat03/29/25 at 1245, Routine New Bag 03/29/2025 4:41 PM EDT New Bag 03/29/2025 1:34 PM EDT Lidocaine HCl prefilled syringe Buccal, As needed, Starting on Sat03/29/25 at 1344, Anesthesia Intraprocedure Given 03/29/2025 1:44 PM EDT 100 mg naloxone (Narcan) injection 0.4 mg 0.4 mg, Intravenous, As needed, Starting on Sat03/29/25 at 1809, Until Sat03/30/25 at 1319, Routine, Recovery (Phase I only), respiratory depression Given 03/29/2025 7:12 PM EDT 0.04 mg phenylephrine in NS (Channing-Synephrine) 100 mcg/mL prefilled syringe Intravenous, As needed, Starting on Sat03/29/25 at 1532, Until Sat03/29/25 at 1935, Routine, Anesthesia Intraprocedure Given 03/29/2025 4:46 PM EDT 25 mcg Given 03/29/2025 4:39 PM EDT 25 mcg Given 03/29/2025 4:22 PM EDT 50 mcg propofol (Diprivan) injection Intravenous, As needed, Starting on Sat03/29/25 at 1344, Until Sat03/29/25 at 193, Routine, Anesthesia Intraprocedure Given 03/29/2025 3:23 PM EDT 40 mg Given 03/29/2025 3:21 PM EDT 30 mg Given 03/29/2025 3:17 PM EDT 30 mg rocuronium (ZeMuron) injection Intravenous, As needed, Starting on Sat03/29/25 at 1345, Until Sat03/29/25 at 1935, Routine, Anesthesia Intraprocedure Given 03/29/2025 4:15 PM EDT 20 mg Given 03/29/2025 3:17 PM EDT 20 mg Given 03/29/2025 2:43 PM EDT 20 mg sugammadex (Bridion) 100 MG/ML injection Intravenous, As needed, Starting on Sat03/29/25 at 1857, Until Sat03/29/25 at 193, Routine, Anesthesia Intraprocedure Given 03/29/2025 7:06 PM EDT 100 mg Given 03/29/2025 7:00 PM EDT 100 mg Given 03/29/2025 6:57 PM EDT 100 mg tranexamic acid (Cyklokapron) injection Intravenous, As needed, Starting on Sat03/29/25 at 1547, Until Sat03/29/25 at 193, Routine, Anesthesia Intraprocedure Given 03/29/2025 3:47 PM EDT 1,000 mg documented in this encounter Additional Health Concerns Assessment Noted Time A fall risk assessment has been complete d for the patient 02/23/2025 8:48 AM EDT A Body Mass Index follow-up plan has been documented for the patient 04/04/2025 10:30 AM EDT documented as of this encounter Care Teams Dinkey Brakeman Relationship Specialty Start Date End Date Casa Phillips MD [address] [place] [id number] PCP - General 02/22/25 Forrest Nickerson APRN [address] [place] [id number] 03/06/23 documented as of this encounter
--- OUTSIDE RECORDS SUMMARY | 2025-04-06 10:40 | XMS_ITS | Encounter Summary ---
Author Organization [facility] Address [address] [place] [address] Care Team Providers Care Music Typographer Name Role Phone Demetrio Nickersonann Theresa WEB ART DIRECTOR Unavailable [phone] Casa Phillips MD Primary Care Provider [phone] Reason for Referral * Consultation (Routine) - Authorized Specialty Diagnoses / Procedures Referred By Contac t Referred To Contact Medical Oncology Diagnoses Non-small cell cancer of left lung (CMS/HCC) Nikolai Naranjo MD [address] [address] Phone: tel: fax: Referral ID Status Reason Start Date Expiration Date Visits Requested Visits Authorized [id number] Authorized Specialty Services Required 04/06/2025 10/06/2026 [address] Dagoberto Rosales at [facility] Reason for Visit * Reason Comments Follow-up Encounter Details Date Type Department Care Team ([facility] st Contact Info) Description 04/06/2025 10:40 AM EDT Office Visit Pav CC Head, Neck & Respiratory [address], [address] [place] [address] Nikolai Naranjo MD [address] [facility] [address] [place] [address] Non-small cell cancer of left lung (CMS/HCC) [...] any time in the past 12 m [facility] [place], were you homeless or living in a alf (including now)? No 03/31/2025 Utilities Answer Date Recorded In the past 12 months has [employer], gas, oil, or water company threatened to [...] image 161 series 4 and 3. A Pza-CDX-dqyy subpleural 4 mm tiny perifissural nodule at [...] cane since 2023)- Pathology Fine needle aspiration: [id number] Order: [id number] Collected 01/28/2025 14:07 Final Diagnosis A. LUNG, [...] upper lobectomy on 03/29/2025. Surgical Pathology Exam: [id number] Order: [id number] Collected 03/29/2025 17:10 Status: Final result Dx: [...] Sister with lung cancer (heavy tobacco smoker yakn3eg hand exposure). Social History[4] --tobacco smoker since age 13: cigars then switched to cigarettes 1PPD. Quit from 6442-8609, but later relapsed in 2015 to present (3-4 cigarettes x day). Re-contemplating phase, open to explore NRT options. --2nd hand tobacco smoking exposure from both parents during early to young adult age --occasional alcohol. No illicit drug use. [place] [place] [address]. Allergies: Cetirizine Medications: Current Medications[5] Review of [...] scanner: Siemens Biograph 40 mCT. PET/CT acquisition: Nlgxjf-ki-mis-thighs. Standardized uptake value (SUV): Corrected for body weight only. CT: Low-dose, gzx-yrsrnc-doku, without intravenous contrast. TOTAL DLP (Dose Length [...] 1.8 (image 161 series 4 and 3). Ryp-MHD-irwa subpleural 4 mm tiny perifissural nodule is [...] s/p PCI x3 (last in 2020 for octe-qwqh-ATO; on DAPT), probable COPD [facility] half-way heavy tobacco use plus 2nd hand exposure [...] - RTC in 3 months -referral to [facility] oncologist Dr. Rosales # Imbalance with now [...] TTOP enrollment at , likelyeligible. # Nutrition- handle and vent machine operator consult next visit. Chronic conditions: HR-CAD s/p PCI on DAPT (last PCI in 2020)- asymptomatic. Prostatomegaly s/p prostate surgery x3 by local urology provider (last in 2023; [facility]). T2DM with recent weight loss (25 lbs in 3M)- uncomplicated. Possible claudication based on history- pt does not have formal dx of PAD, has never had KAMRYN or vascular testing. SDOH: transportation, health literacy, financial. Nikolai Shankra MD [1] Past Medical History: Diagnosis Date [...] AM EDT Appointment P[facility] H Radiology [address] [place] [address] 04/20/2025 10:30 AM EDT Office Visit Pav CC Head, Neck & Respiratory 800 [facility], 2nd [place] [address] Ирина Lopez MD [address] [facility] [address] [place] [address] 07/06/2025 10:40 AM EDT Office Visit Pav CC Head, Neck & Respiratory [address] [facility], [address]nd [place] [address] Nikolai Naranjo MD 800 [facility] [address] [place] [address] Scheduled Referrals Name Type Priority Associated Diagnoses [...] documented as of this encounter Care Teams Music Typographer Relationship Specialty Start Date End Date Casa Phillips MD [address] [place] [address] PCP - General 02/22/25 Forrest Nickerson APRN [address] [place] [address] 03/06/23 documented as of this encounter
--- OUTSIDE RECORDS SUMMARY | 2025-04-06 11:30 | XMS_ITS | Encounter Summary ---
Author Organization [facility] Address [address] [place] [address] Care Team Providers Care Extrusion Die Coordinator Name Role Phone Demetrio trevinoann Cardenas LEGAL COUNSEL Unavailable [phone] Casa Phillips MD Primary Care Provider [phone] Encounter Details Date Type Department Care Team (Late st Contact Info) Description 04/06/2025 11:30 AM EDT Office Visit Pav CC Head, Neck & Respiratory [address], [address]nd [place] [address] Ирина Lopez MD [address] [facility] [address] [place] [address] Non-small cell cancer of left lung (CMS/HCC) (Primary Dx) Social History Tobacco Use Types Packs/Day Years [...] any time in the past 12 m [facility], were you homeless or living [...] as of this encounter Miscellaneous Notes * Progress Notes - Ирина Lopez MD - 04/06/2025 11:30 AM EDT Images from the original note were not included. [facility] Department of Surgery Section of Thoracic Surgery Outpatient Clinic Note Diagnosis: lung cancer Procedure: 03/29/2025 L thoracotomy HIEN Pathology: [id number] (2.6 cm with visceral pleural invasion) Interval History: Cole Feliz Jr. is a 79 y.o. male s/p left upper lobectomy last week. He was seeing Dr Shankar today and noted that he has had drainage from his chest tube site. He reports clear drainage without foul odor which occurs mostly when he coughs. He denies fevers or chills. ROS: A 14 point ROS was performed and is negative except as noted in the HPI Physical exam: BP 124/70 Pulse 86 Temp 36.3 ??C (97.3 ??F) Resp 15 General: alert and oriented, appropriate Lungs: CTA B, no wheezes or rhonchi Heart: RRR, no murmurs Abdomen: soft NT/ND, normal bowel sounds Lymph nodes: no palpable supraclavicular or cervical adenopathy Extremities: no peripheral edema Skin: no rash, no cyanosis and warm to touch Psychiatric: oriented to person/place/time and normal mood/affect Incisions: healing well, unable to express any drainage today even with valsalva, dressing dry since last night Imaging: I personally reviewed the following imaging: none Assessment and Plan: Patient interviewed and examined personally. Mr Feliz is recovering well. The drainage seems to have stopped today. He will return as scheduled in 2 weeks for suture removal and contact us if it starts draining again. Ирина Lopez MD flux core welder Thoracic Surgery documented in this encounter Plan of Treatment Upcoming Encounters Date Type Department Care Team (Late st Contact Info) Description 04/20/2025 10:00 AM EDT Appointment [facility] H Radiology [address] [place] [address] 04/20/2025 10:30 AM EDT Office Visit Pav CC Head, Neck & Respiratory 800 [facility], 2nd [place] [address] Ирина Lopez MD [address] [place] [address] 07/06/2025 10:40 AM EDT Office Visit Pav CC Head, Neck & Respiratory [address] [facility], [address]nd [place] [address] Nikolai Naranjo MD 800 [facility] [address] [place] [address] documented as of this encounter Visit Diagnoses Diagnosis Non-small cell cancer of left lung (CMS/HCC)- Primary documented in this encounter Additional Health Concerns Assessment Noted Time A fall risk assessment has been complete d for the patient 04/06/2025 10:27 AM EDT A Body Mass Index follow-up plan has been documented for the patient 04/06/2025 12:11 PM EDT documented as of this encounter Care Teams Extrusion Die Coordinator Relationship Specialty Start Date End Date Casa Phillips MD [address] [place] [address] PCP - General 02/22/25 Forrest Nickerson, BING [address] [place] [address] 03/06/23 documented as of this encounter
--- OUTSIDE RECORDS SUMMARY | 2025-04-14 14:14 | XMS_ITS ---
Author Organization Unknown Patient Care team information Name Category Status Period Participants - - Proposed period not known -
--- OUTSIDE RECORDS SUMMARY | 2025-04-14 14:14 | XMS_ITS | Clinical Summary ---
Author Organization [facility] Address [address] [place] [address] Care Team Providers Care Esl Tutor Name Role Phone Forrest Nickerson PULLER MACHINE Unavailable [phone] Casa Phillips MD Primary Care Provider [phone] Allergies Active Allergy Reactions Criticality Noted Date Comments Cetirizine Unknown - Patient st ates they do not know rxn details Low 03/14/2022 cetirizine Medications aspirin 81 MG EC tablet Take 1 tablet by mouth daily. Active clopidogrel (Plavix) 75 MG tablet Take 1 tablet by mouth daily. Active metFORMIN (Glucophage) 1000 MG tablet Take 1 tablet by mouth 2 times a day. 5 Active rosuvastatin (Crestor) 20 MG tablet Take 1 tablet by mouth daily. Active acetaminophen (Tylenol) 500 MG tablet Take 2 tablets by mouth every 6 hours for 14 days. 112 tablet 5 04/18/20 25 Active tamsulosin (Flomax) 0.4 MG 24 hr capsule Take 1 capsule by mouth daily. 30 capsule 5 05/04/20 25 Active senna-docusate (Betty-Colace) 8.6-50 MG tablet Take 2 tablets by mouth 2 times a day for 14 days. 56 tablet 5 04/18/20 25 Active Additional Information Patient not taking.Reported on 04/06/2025 polyethylene glycol (Miralax) 17 g packet Take 17 g by mouth daily. 30 packet 5 Active Additional Information Patient not taking.Reported on 04/06/2025 methocarbamol (Robaxin) 500 MG tablet Take 1 tablet by mouth every 6 hours for 14 days. 56 tablet 5 04/18/20 25 Active oxyCODONE (Roxicodone) 5 MG immediate release tablet Take 1 tablet by mouth every 6 hours as needed for moderate pain for up to 15 doses. 15 tablet 5 Active HYDROcodone-randall taminophen ([place]) 10-325 MG tablet Take 1 tablet by mouth every 6 hours as needed for severe pain for up to 20 days. 40 tablet 5 04/26/20 25 Active naloxone (Narcan) 4 mg/0.1 mL nasal spray 1. Give 1 spray in nostril for no/slow breathing or cannot wake after opioid use 2. Call 911 3. Repeat in other nostril if symptoms continue 1 each 5 Active Active Problems Problem Noted Date Diagnosed Date Electrolyte abnormality 03/30/2025 Overview (03/30/2025): Hypocalcemia Hypomagnesemia Hypophosphatemia Monitor - Replete as indicated Hyponatremia 03/30/2025 Overview (03/30/2025): Monitor Non-small cell cancer of left lung 02/03/2025 Cancer Staging:Pathologic stage from 04/06/2025: ypT2, ypN0, cM0 - Signed by Nikolai Naranjo MD on 04/06/2025 Overview (03/30/2025): 03/29/2025: Bronchoscopy, left VATS converted to thoracotomy, left upper lobectomy, mediastinal lymph node dissection, intercostal nerve blocks Pain control Tobacco use disorder 01/07/2025 Second hand smoke exposure 01/07/2025 CKD (chronic kidney disease) stage 2, GFR 60-89 ml/min 03/26/2022 Essential hypertension 03/26/2022 Anemia 03/26/2022 Overview (04/02/2025): 1 unit PRBC on 03/31 2units PRBC on 04/02 Monitor - transfuse as indicated 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, without long-term current use of insulin 03/26/2022 Microalbuminuria 03/26/2022 Encounters Date Type Department Care Team Description 04/07/2025 Telephone [facility] Hematology/BMT and Cellular Therapy Program [address] [facility], [facility] [place] [address] [place] 04/07/2025 Telephone [facility] Hematology/BMT and Cellular Therapy Program [address] [facility], [address] [place] [phone] [facility] [place] J 04/07/2025 Telephone [facility] Hematology/BMT and Cellular Therapy Program [address] [facility], [address] [place] [phone] [facility] [place] J 04/07/2025 Telephone [facility] Head, Neck & Respiratory [address] [facility], [address] [place] [phone] Aishwarya Dye RN 04/06/2025 11:30 AM EDT Office Visit [facility] Head, Neck & Respiratory [address] [phone] Ирина Lopez MD Non-small cell cancer of left lung (CMS/HCC) (Primary Dx) 04/06/2025 10:40 AM EDT Office Visit [facility] Head[facility] Neck & Respiratory [address] [phone] Nikolai Naranjo MD Non-small cell cancer of left lung (CMS/HCC) (Primary Dx); CKD (chronic kidney disease) stage 2, GFR 60-89 ml/min; Tobacco use disorder; Essential hypertension; Type 2 diabetes mellitus with stage 2 chronic kidney disease, without long-term current use of insulin (CMS/HCC) 04/06/2025 Telephone [facility] Head, Neck & Respiratory [address] [phone] Nikolai Naranjo MD 04/06/2025 Travel 04/04/2025 Travel 04/03/2025 Travel 04/02/2025 Travel 04/01/2025 Travel 03/31/2025 Travel 03/30/2025 Travel 03/29/2025 1:34 PM EDT Anesthesia Event [facility] OPERATING ROOM [address] [place] [phone] Jimmy Kim MD Bliss, Emily G, MD 03/29/2025 12:10 PM EDT - 03/29/2025 4:50 PM EDT Surgery [facility] OPERATING ROOM [address] [place] [phone] Ирина Lopez MD LEFT VATS LOBECTOMY coverted to open, Left thoracotomy, with medistinal lymph node disection and lypoma [44951 (CPT )] 03/29/2025 9:43 AM EDT - 04/04/2025 12:18 PM EDT Hospital Encounter [facility] A Inpatient [address] [place] [phone] Ирина Lopez MD Non-small cell cancer of left lung (CMS/HCC) Discharge Disposition: Home or Self Care 03/29/2025 Travel 03/18/2025 Travel 03/11/2025 Telephone [facility] Head, Neck & Respiratory [address] [phone] Ирина Lopez MD 03/04/2025 Results Follow-Up [facility] Head, Neck & Respiratory [address] [phone] Nikolai Naranjo MD 03/03/2025 Telephone [facility] Head, Neck & Respiratory [address] [phone] Kirstie Trejo RN 03/02/2025 Telephone [facility] Head, Neck & Respiratory [address] [phone] Nikolai Naranjo MD 03/02/2025 Telephone [facility] Head, Neck & Respiratory [address] [phone] Nikolai Naranjo MD 02/24/2025 12:44 PM EDT - 02/24/2025 11:59 PM EDT Hospital Encounter [facility] S Radiology [address], [address] [place] [address] Non-small cell cancer of left lung (CMS/HCC) Discharge Disposition: Home or Self Care 02/24/2025 Travel 02/23/2025 10:30 AM EDT Office Visit [facility] Head, Neck & Respiratory [address] [facility], [address] [place] [phone] Ирина Lopez MD Non-small cell cancer of left lung (CMS/HCC) 02/23/2025 9:00 AM EDT Office Visit [facility] Head, Neck & Respiratory [address] [facility], [address] [place] [phone] Nikolai Naranjo MD Non-small cell cancer of left lung (CMS/HCC) (Primary Dx); CKD (chronic kidney disease) stage 2, GFR 60-89 ml/min; Tobacco use disorder 02/23/2025 Travel 02/22/2025 3:36 PM EDT - 02/22/2025 11:59 PM EDT Hospital Encounter [facility] H Radiology 800 [place] [address] Discharge Disposition: Home or Self Care 02/22/2025 3:36 PM EDT - 02/22/2025 11:59 PM EDT Hospital Encounter [facility] Radiology [address] [facility], [place] [address] Non-small cell cancer of left lung (CMS/HCC) Discharge Disposition: Home or Self Care 02/22/2025 2:29 PM EDT - 02/22/2025 3:35 PM EDT Hospital Encounter [facility] H Pulmonary Function Testing [address] [place] [address] Non-small cell cancer of left lung (CMS/HCC) Discharge Disposition: Home or Self Care 02/22/2025 Travel 02/10/2025 Telephone [facility] Head, Neck & Respiratory [address] [facility], [address] [place] [phone] Nikolai Naranjo MD 02/05/2025 8:15 AM EDT Office Visit [facility] Head, Neck & Respiratory [address] [phone] Angel Parker MD Non-small cell cancer of left lung (CMS/HCC) (Primary Dx); CKD (chronic kidney disease) stage 2, GFR 60-89 ml/min 02/05/2025 Orders Only Ch Radiology Virtual Dept. [address] [place] [phone] Lilli Gage DO 02/05/2025 Travel 02/03/2025 Telephone [facility] Head, Neck & Respiratory [address] [place] [phone] Angel Parker MD 01/28/2025 1:16 PM EDT Anesthesia Event [facility] OPERATING ROOM [address] [place] [phone] Kizzy Cottrell MD Latham, Jeremy J, MD 01/28/2025 12:00 PM EDT - 01/28/2025 2:15 PM EDT Surgery [facility]ATING RO[facility] [address] [place] [phone] Angel Parker MD ION Robotic Bronch, Radial US, Nolan, BAL, Biopsy, Needle, EBUS TBNA, CIOS / 3D fluoroscopy [77310 (CPT )] 01/28/2025 10:30 AM EDT - 01/28/2025 4:54 PM EDT Hospital Encounter [facility]PERATING ROOM [address] [place] [phone] Angel Parker MD Lung nodule Discharge Disposition: Home or Self Care 01/28/2025 Travel 01/21/2025 Telephone [facility] Head, Neck & Respiratory [address] [place] [phone] Angel Parker MD 01/20/2025 3:15 PM EDT [facility] [address], [address] [place] [address] 01/20/2025 Travel from Last 3 Months Family History Medical History Relation Name Comments Cancer Father Lung cancer Father Cancer Mother Lung cancer Mother Diabetes Other Anesthesia problems Neg Hx Malig Hyperthermia Neg Hx Relation Name Status Comments Father Mother Other Social History Tobacco Use Types Packs/Day Years [...] any time in the past 12 m [facility], were you homeless or living in a m[facility] (including now)? No 03/31/2025 Utilities Answer Date Recorded In the past 12 months has e electric, gas, oil, or water company threatened to shut off services in your home? No 03/31/2025 Sex and Gender Information Value Date Recorded Sex Assigned at Male 01/28/2025 11:17 AM EDT Legal Sex Male 8:02 PM EDT Gender Identity Male 01/28/2025 11:17 AM EDT Sexual Orientation Not on file Last Filed Vital Signs Vital Sign Reading Time Taken Comments Blood Pressure 124/70 04/06/2025 10:21 AM EDT Pulse 86 04/06/2025 10:21 AM EDT Temperature 36.3 C (97.3 F) 04/06/2025 10:21 AM EDT Respiratory Rate 15 04/06/2025 10:21 AM EDT Oxygen Saturation 99% 04/06/2025 10:21 AM EDT Inhaled Oxygen Concentration - - Weight 66.9 kg (147 lb 7.8 oz) 04/06/2025 10:21 AM EDT Height 177.8 cm (5' 10 ) 03/30/2025 1:25 PM EDT Body Mass Index 21.16 03/30/2025 1:25 PM EDT Plan of Treatment Upcoming Encounters Date Type Department Care Team (Late st Contact Info) Description 04/20/2025 10:00 AM EDT Appointment [facility] Radiology [address] [place] [phone] 04/20/2025 10:30 AM EDT Office Visit [facility] Head, Neck & Respiratory [address] [facility], 2nd [place] [phone] Ирина Lopez MD [address] [facility] [address] [place] [phone] 07/06/2025 10:40 AM EDT Office Visit [facility] Head, Neck & Respiratory [address] [facility], 2nd [place] [phone] Nikolai Naranjo MD [address] [facility] [address] [place] [address] Health Maintenance Due Date Last Done Comments [facility]-Depression Screening 1945 [facility]-Diabetes: Hemoglobin A1C 1945 [facility]-Hepatitis C Screening 1945 [facility]-Medicare Annual Wellness (AWV) 1945 [facility]-/Child/Adol SDOH Screenings 1945 [id number] Vaccine (#1) 1951 Diabetes: Dental Exam 1956 [facility]-DTaP,Tdap,and Td Vaccine s (1 - Tdap) 1965 [facility]-Pneumococcal Vaccine: 50 + Years (1 of 2 - PCV) 1965 [facility]-Zoster Vaccines (1 of 2) 1965 [facility]-RSV Vaccine: 60+ Years o r (1 - 1-dose 75+ series) 2021 [facility]-Influenza Vaccine (#1) 2025 08/19/2024 [facility]- SDOH Screenings 09/30/2025 [facility]-Adult SDOH Screenings 09/30/2025 03/31/2025 HPV Vaccines Aged Out No longer eligi ble based on patient's age to complete this topic [facility]-HIB Vaccines Aged Out No longer e ligible based on patient's age to complete this topic [facility]-Hepatitis A Vaccines Aged Out No longer eligible based on patient's age to complete this topic [facility]-IPV Vaccines Aged Out No longer e ligible based on patient's age to complete this topic [facility]-Rotavirus Vaccines Aged Out No lo nger eligible based on patient's age to complete this topic Procedures Procedure Name Priority Date/Time Associated Diagnosis Comments POCT GLUCOSE METER UNSOLICITED RESULTS Routine 04/04/2025 8:34 AM EDT XR CHEST 1 VIEW Routine 04/04/2025 5:20 AM EDT RENAL FUNCTION PANEL, PLASMA Routine 04/04/2025 2:19 AM EDT MAGNESIUM, PLASMA Routine 04/04/2025 2:1 9 AM EDT CBC W/O DIFFERENTIAL Routine 04/04/2025 2:19 AM EDT POCT GLUCOSE [...] 1 VIEW Routine 04/03/2025 5:53 AM EDT RENAL FUNCTION PANEL, PLASMA Routine 04/03/2025 3:45 AM EDT MAGNESIUM, PLASMA Routine 04/03/2025 3:4 5 AM EDT CBC W/O DIFFERENTIAL Routine 04/03/2025 3:45 AM EDT POCT GLUCOSE [...] 1 VIEW Routine 04/02/2025 6:08 AM EDT RENAL FUNCTION PANEL, PLASMA Routine 04/02/2025 4:32 AM EDT MAGNESIUM, PLASMA Routine 04/02/2025 4:3 2 AM EDT CBC W/O DIFFERENTIAL Routine 04/02/2025 4:32 AM EDT POCT GLUCOSE [...] 1 VIEW Routine 04/01/2025 5:41 AM EDT RENAL FUNCTION PANEL, PLASMA Routine 04/01/2025 2:12 AM EDT MAGNESIUM, PLASMA Routine 04/01/2025 2:1 2 AM EDT CBC W/O DIFFERENTIAL Routine 04/01/2025 2:12 AM EDT POCT GLUCOSE [...] 1 VIEW Routine 03/31/2025 6:04 AM EDT RENAL FUNCTION PANEL, PLASMA Routine 03/31/2025 2:22 AM EDT MAGNESIUM, PLASMA Routine 03/31/2025 2:2 2 AM EDT CBC W/O DIFFERENTIAL Routine 03/31/2025 2:22 AM EDT POCT GLUCOSE [...] OXYGEN THERAPY Routine 03/30/2025 8:00 AM EDT RENAL FUNCTION PANEL, PLASMA Routine 03/30/2025 4:05 AM EDT MAGNESIUM, PLASMA Routine 03/30/2025 4:0 5 AM EDT CBC W/O DIFFERENTIAL Routine 03/30/2025 4:05 AM EDT XR CHEST 1 VIEW Routine 03/30/2025 1:35 AM EDT XR CHEST 1 VIEW STAT 03/29/2025 8:05 PM EDT OXYGEN THERAPY Routine 03/29/2025 8:00 PM EDT CREATININE, PLASMA Timed 03/29/2025 7: 58 PM EDT RENAL FUNCTION PANEL, PLASMA Routine 03/29/2025 7:58 PM EDT MAGNESIUM, PLASMA Routine 03/29/2025 7:5 8 PM EDT FIBRINOGEN,QUANTITATIVE (CLOTTABLE) STAT 03/29/2025 7:58 PM EDT PROTHROMBIN TIME(PT) / INR STAT 03/29/2025 7:58 PM EDT CBC WITH AUTO DIFFERENTIAL STAT 03/29/2025 7:58 PM EDT POCT GLUCOSE METER UNSOLICITED RESULTS Routine 03/29/2025 7:43 PM EDT OXYGEN THERAPY Routine 03/29/2025 7:30 PM EDT OXYGEN THERAPY Routine 03/29/2025 7:30 PM EDT OXYGEN THERAPY Routine 03/29/2025 7:30 PM EDT SURGICAL PATHOLOGY EXAM Routine 03/29/20 5:10 PM EDT Non-small cell cancer of left lung (CMS/HCC) BLOOD GAS PANEL, ARTERIAL STAT 03/29/2025 4:05 PM EDT Non-small cell cancer of left lung (CMS/HCC) APTT STAT 03/29/2025 4:04 PM EDT Non-small cell cancer of left lung (CMS/HCC) PROTHROMBIN TIME(PT) / INR STAT 03/29/2025 4:04 PM EDT Non-small cell cancer of left lung (CMS/HCC) FIBRINOGEN,QUANTITATIVE (CLOTTABLE) STAT 03/29/2025 4:04 PM EDT Non-small cell cancer of left lung (CMS/HCC) CBC W/O DIFFERENTIAL STAT 03/29/2025 4:04 PM EDT Non-small cell cancer of left lung (CMS/HCC) BLOOD GAS PANEL, ARTERIAL STAT 03/29/2025 2:29 PM EDT Non-small cell cancer of left lung (CMS/HCC) ANESTHESIA PERIPHERAL IV PLACEMENT Routine 03/29/2025 2:00 PM EDT ANESTHESIA ARTERIAL LINE PLACEMENT Routine 03/29/2025 1:57 PM EDT PB ANESTHESIA PLACEHOLDER Routine 03/29/2025 1:48 PM EDT WV AN ELECTIVE ENDOTRACHEAL AIRWAY Routine 03/29/2025 1:48 PM EDT WV THORACOSCOPY SURG LOBECTOMY 03/29/2025 1:24 PM EDT Non-small cell cancer of left lung (CMS/HCC) POCT GLUCOSE METER UNSOLICITED RESULTS Routine 03/29/2025 12:48 PM EDT BLOOD GAS PANEL, VENOUS Routine 03/29/20 12:27 PM EDT TYPE AND SCREEN Routine 03/29/2025 12:27 PM EDT MR HEAD W AND WO IV CONTRAST Routine 02/24/2025 1:26 PM EDT Non-small cell cancer of left lung (CMS/HCC) PET/CT FDG SKULL BASE TO MID THIGH Routine 02/22/2025 4:50 PM EDT Non-small cell cancer of left lung (CMS/HCC) POCT GLUCOSE METER UNSOLICITED RESULTS Routine 02/22/2025 3:45 PM EDT HC DIFFUSING CAPACITY - CARBON MONOXIDE DIFFUSING CAPACITY Routine 02/22/2025 3:10 PM EDT Non-small cell cancer of left lung (CMS/HCC) [facility] TUMOR SEEK HYBRID + IHCS AND OTHER TESTS BY TUMOR TYPE Routine 01/28/2025 3:38 PM EDT Non-small cell cancer of left lung (CMS/HCC) FL LESS THAN 1 HOUR (NON-REPORTABLE) Routine 01/28/2025 3:14 PM EDT NON-GYNECOLOGIC CYTOLOGY Routine 01/28/2025 2:38 PM EDT Lung nodule FINE NEEDLE ASPIRATION - CYTOLOGY, TRANSBRONCHIAL BX Routine 01/28/2025 2:26 PM EDT Lung nodule FINE NEEDLE ASPIRATION - CYTOLOGY Routine 01/28/2025 2:07 PM EDT Lung nodule PB ANESTHESIA PLACEHOLDER Routine 01/28/2025 1:27 PM EDT WV AN ELECTIVE ENDOTRACHEAL AIRWAY Routine 01/28/2025 1:27 PM EDT WV BRONCHOSCOPY,COMPUTER ASSIST/IMAGE-GUIDED NAVIGATION 01/28/2025 1:02 PM EDT Lung nodule POCT GLUCOSE METER UNSOLICITED RESULTS Routine 01/28/2025 11:[address] CHEST WO IV CONTRAST Routine 01/29/20 11:33 AM EDT from Last 3 Months Results * (ABNORMAL) POCT glucose meter (04/04/2025 8:34 AM EDT) Only the most recent of27 resultswithin the time period is included. POCT Glucose 159(H) 74 - 99 mg/dL [...] Comment 04/04/2025 8:36 AM EDT [facility] Enterprise Cloud Architect ID Sandy Kramer 04/04/2025 8:36 AM EDT HEALTHCARE LAB Device ID [id number] 04/04/2025 8:36 AM EDT [facility]ALTH[facility]ARE [facility] Specimen Type POC Capillary 04/04/2025 8:36 AM EDT [facility] Blood Capillary blood specimen / Unknown 04/04/2025 8:34 AM EDT 04/04/2025 8:36 AM EDT us Ирина Lopez MD LAB POINT OF CARE TE ST DOCKED DEVICE UNSOLICITED RESULTS Final Result [facility] [address] [place] [address] * XR Chest 1 View (04/04/2025 5:20 AM EDT) Only the most recent of10 resultswithin the time period is included. Anatomical Region Laterality Modality Chest Digital Radiogra [...] chest wall subcutaneous emphysema. Procedure Note Nevaeh iWnn MD - 04/04/2025 CLINICAL INDICATION: eval lung [...] on 04/04/2025 10:20 AM us Scarlet Gamboa PULLER MACHINE IMG XR PROCEDURES Final Resul t * (ABNORMAL) CBC W/O Differential (04/04/2025 2:19 AM EDT) Only the most recent of8 resultswithin the time period is included. WBC Count 5.44 3.70 - 10.30 10*3/uL LAB HEMATOLOGY METHOD 04/04/2025 2:33 AM EDT [facility] RBC Count 3.77(L) 4.60 - 6.10 10*6/uL LAB HEMATOLOGY METHOD 04/04/2025 2:33 AM EDT [facility] HGB 10.7(L) 13.7 - 17.5 g/dL LAB HEMATOLOGY METHOD 04/04/2025 2:33 AM EDT [facility] HCT 32.4(L) 40.0 - 51.0 % LAB HEMATOLOGY METHOD 04/04/2025 2:33 AM EDT [facility] Platelet Count 220 155 - 369 10*3/uL LAB HEMATOLOGY METHOD 04/04/2025 2:33 AM EDT [facility] MCV 86 79 - 98 fL LAB HEMATOLOGY METHOD 04/04/2025 2:33 AM EDT [facility] MCH 28.4 26.0 - 32.0 pg LAB HEMATOLOGY METHOD 04/04/2025 2:33 AM EDT [facility] MCHC 33.0 30.7 - 35.5 g/dL LAB HEMATOLOGY METHOD 04/04/2025 2:33 AM EDT [facility] RDW 14.7(H) 11.5 - 14.5 % LAB HEMATOLOGY METHOD 04/04/2025 2:33 AM EDT [facility] MPV 9.1 8.8 - 12.5 fL LAB HEMATOLOGY METHOD 04/04/2025 2:33 AM EDT [facility] nRBC 0.4(H) <=0.0 per 100 WBCs LAB HEMATOLOGY METHOD 04/04/2025 2:33 AM EDT [facility] Blood Venous blood specimen / Unknown Venipuncture / Unknown 04/04/2025 2:19 AM EDT 04/04/2025 2:24 AM EDT us Ирина Lopez MD LAB BLOOD ORDERABLES Final R esult [facility] [address] [place] [address] * (ABNORMAL) Magnesium, Plasma (04/04/2025 2:19 AM EDT) Only the most recent of8 resultswithin the time period is included. Magnesium, Plasma 1.8(L) 1.9 - 2.4 mg/dL 04/04/2025 2:53 AM EDT [facility] Blood Venous blood specimen / Unknown Venipuncture / Unknown 04/04/2025 2:19 AM EDT 04/04/2025 2:24 AM EDT us Ирина Lopez MD LAB BLOOD ORDERABLES Final R esult [facility] [address] [place] [address] * (ABNORMAL) Renal Function Panel, Plasma (04/04/2025 2:19 AM EDT) Only the most recent of8 resultswithin the time period is included. Glucose, Plasma 166(H) 74 - 99 mg/dL 04/04/2025 2:53 AM EDT [facility] BUN, Plasma 18 8 - 23 mg/dL 04/04/2025 2:53 AM EDT [facility] Creatinine, Plasma 1.31(H) 0.70 - 1.20 mg/dL 04/04/2025 2:53 AM EDT [facility] BUN/Creatinine Ratio 14 04/04/2025 2:53 AM EDT [facility] Sodium, Plasma 136 136 - 145 mmol/L 04/04/2025 2:53 AM EDT [facility] Potassium, Plasma 4.3 3.6 - 4.9 mmol/L 04/04/2025 2:53 AM EDT [facility] Chloride, Plasma 103 97 - 107 mmol/L 04/04/2025 2:53 AM EDT [facility] CO2, Plasma 22 22 - 29 mmol/L 04/04/2025 2:53 AM EDT [facility] Anion Gap 11 6 - 16 mmol/L 04/04/2025 2:53 AM EDT [facility] Total Calcium, Plasma 8.2(L) 8.9 - 10.2 mg/dL 04/04/2025 2:53 AM EDT [facility] Phosphorus, Plasma 3.1 2.5 - 4.5 mg/dL 04/04/2025 2:53 AM EDT [facility] Albumin, Plasma 3.0(L) 3.5 - 5.2 g/dL 04/04/2025 2:53 AM EDT [facility] eGFRcr 55.7 mL/min/1.7 3m*2 04/04/2025 2:53 AM EDT [facility] Comment:Reported eGFRcr in m L/min/1.73m2 is based the CKD-EPI 2020 equation that does not use a race coefficient. Blood Venous blood specimen / Unknown Venipuncture / Unknown 04/04/2025 2:19 AM EDT 04/04/2025 2:24 AM EDT us Ирина Lopez MD LAB BLOOD ORDERABLES Final R esult [facility] [address] [place] [address] * Transfuse RBC (04/02/2025 2:53 PM EDT) Only the most recent of3 resultswithin the time period is included. us Scarlet Gamboa APRN BLOOD TRANSFUSION ORDERABLES [...] MD IV THERAPY ORDERABLES Final Result * Prepare Leukocyte Reduced RBC: 2 Units (04/02/2025 7:58 AM EDT) Only the most recent of2 resultswithin the time period is included. Product Code [id number] CH BLOO D BANK Dispense Status Transfused BLOOD BANK Blood Expiration Date [id number] BLOOD BANK Unit Number [id number] CH B LOOD BANK Product Blood Type 6200 CH BLOOD BANK Blood Type A+ CH BLOOD BANK Crossmatch Compatible CH BLOOD BANK Product Code [id number] CH BLOO D BANK Dispense Status Transfused CH BLOOD BANK Blood Expiration Date [id number] BLOOD BANK Unit Number [id number] CH B LOOD BANK Product Blood Type 6200 CH BLOOD BANK Blood Type A+ CH BLOOD BANK Crossmatch Compatible BLOOD BANK Other Scarlet Gamboa APRN BLOOD BANK PRODUCT ORDERABLES Final Result Performing Organization Address [facility] de Phone Number BLOOD BANK [address] [place] [address], * Type and Screen (04/02/2025 6:36 AM EDT) Only the most recent of2 resultswithin the time period is included. ABO/Rh A Positive 04/02/2025 6:08 AM EDT BLOOD BANK Antibody Screen Negative 04/02/2025 6:08 AM EDT BLOOD BANK Specimen Expiration 04/05/2025 23:59 04/02/2025 6:08 AM EDT BLOOD BANK Blood Venous blood specimen / Unknown Venipuncture / Unknown 04/02/2025 6:36 AM EDT 04/02/2025 6:46 AM EDT Ирина Lopez MD LAB BLOOD BANK TEST ORDERABL ES Final Result Performing Organization Address [facility] Co de Phone Number BLOOD BANK [address] [place] [address], [place] * ECG Adult (03/30/2025 8:37 AM EDT) EKG DIAGNOSIS CLASS Abnormal MUSE ECG Ventricular Rate 81 BPM MUSE ECG Atrial Rate 81 BPM MUSE ECG WV Interval 170 ms MUSE ECG QRSD Interval 104 ms MUSE ECG QT Interval 416 ms MUSE ECG QTC Interval 483 ms MUSE ECG P [place] 39 degrees MUSE ECG R [place] -51 degrees MUSE ECG T Wave [place] -15 degrees MUSE ECG Diagnosis Poor data [...] MUSE ECG Diagnosis Confirmed by Carey Michel ([id number]) on 03/30/2025 9:40:26 AM MUSE ECG 03/30/2025 8:37 AM EDT 03/30/2025 9:40 AM EDT Ирина Lopez MD ECG ORDERABLES Final Result MUSE ECG * Creatinine, Plasma (03/29/2025 7:58 PM EDT) Creatinine, Plasma 1.08 0.70 - 1.20 mg/dL 03/29/2025 8:39 PM EDT [facility] eGFRcr 70.2 mL/min/1.7 3m*2 03/29/2025 8:39 PM EDT [facility] Comment:Reported eGFRcr in m L/min/1.73m2 is based the CKD-EPI 2020 equation that does not use a race coefficient. Blood Arterial blood specimen / Unknown Arterial Puncture / Unknown 03/29/2025 7:58 PM EDT 03/29/2025 8:05 PM EDT Ирина Lopez MD LAB BLOOD ORDERABLES Final R esult [facility] [address] [place] [address] * Protime-INR (03/29/2025 7:58 PM EDT) Only the most recent of2 resultswithin the time period is included. Prothrombin Time 13.8 12.0 - 14.3 sec LAB COAGULATION METHOD 03/29/2025 8:38 PM EDT [facility] INR 1.0 0.9 - 1.1 LAB COAGULATION METHOD 03/29/2025 8:38 PM EDT [facility] Blood Arterial blood specimen / Unknown Arterial Puncture / Unknown 03/29/2025 7:58 PM EDT 03/29/2025 8:05 PM EDT Narrative [facility] - 03/29/2025 8:38 PM EDT [...] [place] INR 2.5 to 3.5 us Kiana Dakota Gusman ANIMATION ARTIST LAB BLOOD ORDERABLES Final R esult Performing Organization Address [facility] Co de Phone Number [facility] [address] [place] [address] * Fibrinogen (03/29/2025 7:58 PM EDT) Only the most recent of2 resultswithin the time period is included. Pathologist [facility] Fibrinogen, Quantitative (Clottable) 294 208 - 459 mg/dL LAB COAGULATION METHOD 03/29/2025 8:38 PM EDT [facility] Blood Arterial blood specimen / Unknown Arterial Puncture / Unknown 03/29/2025 7:58 PM EDT 03/29/2025 8:05 PM EDT us Kiana L Gusman ANIMATION ARTIST LAB BLOOD ORDERABLES Final R esult Performing Organization Address City/[facility]/ZIP Co de Phone Number [facility] [address] [place] [address] * (ABNORMAL) CBC and differential (03/29/2025 7:58 PM EDT) WBC Count 8.18 3.70 - 10.30 10*3/uL LAB HEMATOLOGY METHOD 03/29/2025 8:29 PM EDT [facility] RBC Count 3.11(L) 4.60 - 6.10 10*6/uL LAB HEMATOLOGY METHOD 03/29/2025 8:29 PM EDT [facility] HGB 9.2(L) 13.7 - 17.5 g/dL LAB HEMATOLOGY METHOD 03/29/2025 8:29 PM EDT [facility] HCT 27.7(L) 40.0 - 51.0 % LAB HEMATOLOGY METHOD 03/29/2025 8:29 PM EDT [facility] Platelet Count 174 155 - 369 10*3/uL LAB HEMATOLOGY METHOD 03/29/2025 8:29 PM EDT [facility] MCV 89 79 - 98 fL LAB HEMATOLOGY METHOD 03/29/2025 8:29 PM EDT [facility] MCH 29.6 26.0 - 32.0 pg LAB HEMATOLOGY METHOD 03/29/2025 8:29 PM EDT [facility] MCHC 33.2 30.7 - 35.5 g/dL LAB HEMATOLOGY METHOD 03/29/2025 8:29 PM EDT [facility] RDW 12.6 11.5 - 14.5 % LAB HEMATOLOGY METHOD 03/29/2025 8:29 PM EDT [facility] MPV 9.3 8.8 - 12.5 fL LAB HEMATOLOGY METHOD 03/29/2025 8:29 PM EDT [facility] nRBC 0.0 <=0.0 per 100 WBCs LAB HEMATOLOGY METHOD 03/29/2025 8:29 PM EDT [facility] Differential Type Automated LAB HEMATOLOGY METHOD 03/29/2025 8:29 PM EDT [facility] Neutrophils % 86 % LAB HEMATOLOGY METHOD 03/29/2025 8:29 PM EDT [facility] Lymphocytes % 9 % LAB HEMATOLOGY METHOD 03/29/2025 8:29 PM EDT [facility] Monocytes % 5 % LAB HEMATOLOGY METHOD 03/29/2025 8:29 PM EDT [facility] Eosinophils % 0 % LAB HEMATOLOGY METHOD 03/29/2025 8:29 PM EDT [facility] Basophils % 0 % LAB HEMATOLOGY METHOD 03/29/2025 8:29 PM EDT [facility] Immature Granulocytes % 0 % LAB HEMATOLOGY METHOD 03/29/2025 8:29 PM EDT [facility] Neutrophils Absolute 7.00(H) 1.60 - 6.10 10*3/uL LAB HEMATOLOGY METHOD 03/29/2025 8:29 PM EDT [facility] Lymphocytes Absolute 0.71(L) 1.20 - 3.90 10*3/uL LAB HEMATOLOGY METHOD 03/29/2025 8:29 PM EDT [facility] Monocytes Absolute 0.40 0.30 - 0.90 10*3/uL LAB HEMATOLOGY METHOD 03/29/2025 8:29 PM EDT [facility] Eosinophils Absolute 0.02 0.00 - 0.50 10*3/uL LAB HEMATOLOGY METHOD 03/29/2025 8:29 PM EDT [facility] Basophils Absolute 0.02 0.00 - 0.10 10*3/uL LAB HEMATOLOGY METHOD 03/29/2025 8:29 PM EDT [facility] Immature Granulocytes Absolute 0.03 0.00 - 0.06 10*3/uL LAB HEMATOLOGY METHOD 03/29/2025 8:29 PM EDT [facility] Blood Arterial blood specimen / Unknown Arterial Puncture / Unknown 03/29/2025 7:58 PM EDT 03/29/2025 8:04 PM EDT Narrative [facility] - 03/29/2025 8:29 PM EDT Therapeutic decision making should be based on absolute values, rather than percentages. us Kiana Gusman [facility] LAB BLOOD ORDERABLES Final R esult [facility] [address] [place] [address] * Surgical Pathology Exam (03/29/2025 5:10 PM EDT) Case Report Surgical Pathology Case: [id number] Authorizing Provider: Ирина Lopez MD Collected: 03/29/2025 1716 Ordering Location: [facility]PER[facility] RO[facility] Received: 03/30/2025 0752 Pathologist: Cindy Miller MD Intraop: Elizabeth Gibbs [...] (specify site), lipoma 5 2:45 PM EDT [facility] Final Diagnosis A. LUNG, BRONCHIAL [...] - LIPOMA. 5 2:[address] [facility] at 1445 EDT Synoptic Checklist LUNG [...] pN Category: pN0 5 2:45 PM EDT [facility] Clinical Information Non-small cell cancer of left lung 5 2:45 PM EDT [facility] Intraoperative Consultation A. BRONCHIAL MARGIN FSA: No tumor seen. Todd Gibbs MD. 03/29/2025 @ 1745. 5 2:45 PM EDT [facility] Special and Immunohistochemical Stains Special Stain: F7-2 Elastic Trichrome: Demonstrates visceral pleural invasion F8-2 Elastic Trichrome: Demonstrates visceral pleural invasion All controls show appropriate reactivity. All immunohistochemis try, in situ hybridization, and histochemical tests were developed by and are performed at the [facility], [address] [place] [address]. All tests reported here, except those addressing [...] on decalcified specimens. 5 2:45 PM EDT [facility] Gross Description A. BRONCHIAL MARGIN [...] 0.3-0.6 cm in greatest dimension are identified. Pipe Coverer Helper sections are submitted as follows: F1: Bronchial margin F2: Vascular margins F3: Nearest stapled margin, en face F4: Grossly unremarkable parenchyma F5-F10: Mass, entirely submitted F11: Two intact lymph nodes Cold Time: 13h 43m SWATI Wong ([facility]) G. LIPOMA The specimen is received fresh and placed in formalin, labeled l ipoma , and consists of a 5.8 x 5.6 x 2.1 cm unoriented portion of leggett-yellow lobulated fibroadipose tissue. The external surface is inked blue. Sectioning reveals a leggett-yellow lobulated cut surface. No areas of hemorrhage or necrosis are identified. Pipe Coverer Helper sections are submitted in cassettes G1-G3. Cold Time: 13h 05m SWATI Wong ([facility]) 5 2:45 PM EDT [facility] Note: A resident was involved in the service. I attest I examined the relevant preparations for the specimens and confirmed the diagnosis or interpretation. 5 2:45 PM EDT [facility] Tissue Structure of lymph node [...] MD LAB PATHOLOGY ORDERABLES Fin al Result [facility] [address] [place] [address] * (ABNORMAL) Blood gas panel, arterial (03/29/2025 4:05 PM EDT) Only the most recent of2 resultswithin the time period is included. pH, Arterial 7.38 7.31 - 7.42 LAB HEMATOLOGY METHOD 03/29/2025 4:13 PM EDT [facility] pCO2, Arterial 45 32 - 45 mmHg LAB HEMATOLOGY METHOD 03/29/2025 4:13 PM EDT [facility] pO2, Arterial 216 >70 mmHg LAB HEMATOLOGY METHOD 03/29/2025 4:13 PM EDT [facility] SO2, Measured, Arterial 100(H) 94 - 98 % LAB HEMATOLOGY METHOD 03/29/2025 4:13 PM EDT [facility] Base Excess, Arterial 1.2 -2.0 - 3.0 mmol/L LAB HEMATOLOGY METHOD 03/29/2025 4:13 PM EDT [facility] Bicarbonate, Calculated, Arterial 27(H) 22 - 26 mmol/L LAB HEMATOLOGY METHOD 03/29/2025 4:13 PM EDT [facility] Hematocrit, Whole Blood 31.6(L) 40.0 - 51.0 % LAB HEMATOLOGY METHOD 03/29/2025 4:13 PM EDT [facility] Sodium, Whole Blood 138 136 - 145 mmol/L LAB HEMATOLOGY METHOD 03/29/2025 4:13 PM EDT [facility] Potassium, Whole Blood 3.8 3.6 - 4.9 mmol/L LAB HEMATOLOGY METHOD 03/29/2025 4:13 PM EDT [facility] Chloride, Whole Blood 103 97 - 107 mmol/L LAB HEMATOLOGY METHOD 03/29/2025 4:13 PM EDT [facility] Glucose, Whole Blood 123(H) 74 - 99 mg/dL LAB HEMATOLOGY METHOD 03/29/2025 4:13 PM EDT [facility] Ionized Calcium, Whole Blood 4.4(L) 4.6 - 5.1 mg/dL LAB HEMATOLOGY METHOD 03/29/2025 4:13 PM EDT [facility] Lactate, Arterial, Whole Blood 0.8 0.5 - 1.6 mmol/L LAB HEMATOLOGY METHOD 03/29/2025 4:13 PM EDT [facility] Blood Arterial blood specimen / Unknown 03/29/2025 4:05 PM EDT 03/29/2025 4:11 PM EDT Comment:Pre-op diagnosis: Non-small cell cancer of left lung us Ирина Lopez MD LAB BLOOD ORDERABLES Final R esult [facility] [address] [place] [address] * APTT (03/29/2025 4:04 PM EDT) aPTT 28 25 - 35 sec LAB COAGULATION METHOD 03/29/2025 4:39 PM EDT [facility] Blood Arterial blood specimen / Unknown 03/29/2025 4:04 PM EDT 03/29/2025 4:18 PM EDT Comment:Pre-op diagnosis: Non-small cell cancer of left lung Result [facility] Ирина Lopez MD LAB BLOOD ORDERABLES Final R esult [facility] [address] [place] [address] * Peripheral IV (03/29/2025 2:00 PM EDT) Kiana Dukes CRNA - 03/29/2025 2:00 PM EDT Kiana Gusman CRNA 03/29/2025 2:28 PM Peripheral IV Date/Time: 03/29/2025 2:00 PM Placement Needle size: 18 G Location: hand Site prep: alcohol Technique: anatomical landmarks Attempts: 1 Robert Santos MD ANESTHESIA ORDERABLES Final Res [...] procedure well with no complications. Staffing Performed: ANIMATION ARTIST Robert Santos MD ANESTHESIA ORDERABLES Edited Re sult - Final * WV AN ELECTIVE ENDOTRACHEAL AIRWAY, PB ANESTHESIA PLACEHOLDER (03/29/2025 1:48 PM EDT) Robert Bloom MD - 03/29/2025 1:48 PM EDT Robert Santos MD 03/29/2025 3:02 PM Airway Date/Time: 03/29/2025 1:48 PM Reason: elective Airway not difficult General Information and Staff Patient location during procedure: OR ANIMATION ARTIST: Gusman, Kiana L, ANIMATION ARTIST Performed: ANIMATION ARTIST Patient Condition Indications for airway management: anesthesia Final Airway Details Final airway type: endotracheal airway Successful airway: ETT and ETT - double lumen left Successful intubation technique: direct laryngoscopy Adjuncts used in placement: intubating stylet Endotracheal tube insertion site: oral ETT DL size (fr): 39 Cormack-Lehane Classification: grade IIa - partial view of glottis Placement verified by: chest auscultation, bronchoscopy and capnometry us Robert Santos MD ANESTHESIA ORDERABLES Edited Re sult - Final * (ABNORMAL) Blood gas, venous (03/29/2025 12:27 PM EDT) pH, Venous 7.36 7.32 - 7.43 LAB HEMATOLOGY METHOD 03/29/2025 12:51 PM EDT [facility] pCO2, Venous 49 40 - 55 mmHg LAB HEMATOLOGY METHOD 03/29/2025 12:51 PM EDT [facility] pO2, Venous 54(H) 25 - 40 mmHg LAB HEMATOLOGY METHOD 03/29/2025 12:51 PM EDT [facility] SO2, Measured, Venous 87(H) 65 - 80 % LAB HEMATOLOGY METHOD 03/29/2025 12:51 PM EDT [facility] Base Excess, Venous 1.7 -2.0 - 3.0 mmol/L LAB HEMATOLOGY METHOD 03/29/2025 12:51 PM EDT [facility] Bicarbonate, Calculated, Venous 28(H) 22 - 26 mmol/L LAB HEMATOLOGY METHOD 03/29/2025 12:51 PM EDT [facility] Hematocrit, Whole Blood 39.2(L) 40.0 - 51.0 % LAB HEMATOLOGY METHOD 03/29/2025 12:51 PM EDT [facility] Sodium, Whole Blood 140 136 - 145 mmol/L LAB HEMATOLOGY METHOD 03/29/2025 12:51 PM EDT [facility] Potassium, Whole Blood 4.0 3.6 - 4.9 mmol/L LAB HEMATOLOGY METHOD 03/29/2025 12:51 PM EDT [facility] Chloride, Whole Blood 103 97 - 107 mmol/L LAB HEMATOLOGY METHOD 03/29/2025 12:51 PM EDT [facility] Glucose, Whole Blood 97 74 - 99 mg/dL LAB HEMATOLOGY METHOD 03/29/2025 12:51 PM EDT [facility] Lactate, Venous, Whole Blood 1.6 0.5 - 2.2 mmol/L LAB HEMATOLOGY METHOD 03/29/2025 12:51 PM EDT [facility] Ionized Calcium, Whole Blood 4.5(L) 4.6 - 5.1 mg/dL LAB HEMATOLOGY METHOD 03/29/2025 12:51 PM EDT [facility] Blood Venous blood specimen / Unknown Venipuncture / Unknown 03/29/2025 12:27 PM EDT 03/29/2025 12:49 PM EDT us Robert Santos MD LAB BLOOD ORDERABLES Final Resu lt [facility] [address] [place] [address] * MR Head w and wo IV [...] IMG MRI PROCEDURES Esthela l Result * PET/CT FDG Skull Base To Mid [...] scanner: Siemens Biograph 40 mCT. PET/CT acquisition: Hywnyj-gd-tmz-thighs. Standardized uptake value (SUV): Corrected for body weight only. CT: Low-dose, nec-wabitb-qnqh, without intravenous contrast. TOTAL DLP (Dose Length [...] 1.8 (image 161 series 4 and 3). Ram-KUV-qnym subpleural 4 mm tiny perifissural nodule is [...] scanner: Siemens Biograph 40 mCT. PET/CT acquisition: Bijmpl-to-mzs-thighs. Standardized uptake value (SUV): Corrected for body weight only. CT: Low-dose, nvm-hyhgeu-mqtg, without intravenous contrast. TOTAL DLP (Dose Length [...] SUV 1.8 (image 161series 4 and 3). Ecc-HNW-touo subpleural 4 mm tiny perifissural nodule is [...] Parker MD IMG NM PROCEDURES Final Result * (ABNORMAL) Pulmonary function testing (02/22/2025 3:10 PM EDT) WPN2PBG 3.10 2.66 - 4.70 L VYAIRE PFT FVC PRED 3.68 VYAIRE PFT FVC LLN 2.66 VYAIRE PFT FVCPREZSCORE -0.93 VYAIRE PFT FVCPRE%PRED 84 % % VYAIRE PFT FVC PREDAUT [facility] (2011) VYAIRE PFT FVC Z-SCORE -0.93 VYAIRE PFT FEV1 PRE 2.19 1.91 - 3.51 L VYAIRE PFT FEV1 PRED 2.74 VYAIRE PFT FEV1 LLN 1.91 VYAIRE PFT ITA3HMAJKBQFN -1.12 VYAIRE PFT FEV1_Pre%Pred 80 % % VYAIRE PFT FEV[facility] (2011) VYAIRE PFT FEV1 Z-SCORE -1.12 VYAIRE PFT FEV1/FVC PRE 70.45 60.56 - 88.37 % VYAIRE PFT XWM6PGDEGRB 75 VYAIRE PFT ELG6SBBNJB 61 VYAIRE PFT YQH1DLEDLNCEMOAE -0.55 VYAIRE PFT FBU2KTZBBY%PRED 94 % % VYAIRE PFT KNP7OHOAOQIV _[facility] (2011) VYAIRE PFT VQX1PSWICRWGX -1 VYAIRE PFT ZPL24-60% PRE 1.22 0.77 - 3.77 L/s VYAIRE PFT HJG41-27%_Pred 1.98 VYAIRE PFT ENU0771%LLN 0.77 VYAIRE PFT SJP1792%PREZSCORE -0.95 VYAIRE PFT IDH7271%PRE%PRED 61 % % VYAIRE PFT VGV5727%PREDAUTSaint [facility] (2011) VYAIRE PFT PEF PRE 5.01 4.85 - 9.22 L/s VYAIRE PFT PEF PRED 7.04 VYAIRE PFT PEF LLN 4.85 VYAIRE PFT PEFPREZSCORE -1.52 VYAIRE PFT PEFPRE%PRED 71 % % VYAIRE PFT PEF PREDAUT [facility] III (1998) VYAIRE PFT LHMFFARMNGXKUCUL0LRL 15.18(A) 16.80 - 30.86 ml/(min* mmHg) VYAIRE PFT DLCOSINGLEBREATH PRED 23.19 VYAIRE PFT DLCOSINGLEBREATH LLN 16.80 VYAIRE PFT DLCOSINGLEBREATH Z-SCORE -2.12 VYAIRE PFT DLCOSINGLEBREATH % PRED 65.4 % VYAIRE PFT DLCOSINGLEBREATH PREDAUTSy[facility], [place] (2019) VYAIRE PFT DLCOSINGLEBREATH Z-SCORE -2.12 02/22/2025 3:48 PM EDT VYAIRE PFT QQSKSUABOLIGAVKMV0LB E 15.18(A) 16.80 - 30.86 ml/(min* mmHg) VYAIRE PFT DLCOCSINGLEBREATH PRED 23.19 VYAIRE PFT DLCOCSINGLEBREATH LLN 16.80 VYAIRE PFT DLCOCSINGLEBREATH Z-SCORE -2.12 VYAIRE PFT DLCOCSINGLEBREATH % PRED 65.4 % VYAIRE PFT DLCOCSINGLEBREATH PREDPRESBY[facility] Stano[facility]evic TLCO GLI (2019) VYAIRE PFT IGZQGS8TGZ 3.06 2.88 - 5.12 ml/(min* mmHg*L) VYAIRE PFT DLCOVAPRED 3.95 VYAIRE PFT DLCOVALLN 2.88 VYAIRE PFT DLCOVAZSCORE -1.37 VYAIRE PFT DLCOVA%PRED 77.4 % VYAIRE PFT DLCOVAPREDAUT Stanojevic TLCO GLI (2019) VYAIRE PFT DLCOVAZSCORE -1.37 02/22/2025 3:48 PM EDT VYAIRE PFT QEPWFVIUX0QTM 3.06 2.88 - 5.12 ml/(min* mmHg*L) VYAIRE PFT DLCOC SB/VA PRED 3.95 VYAIRE PFT DLCOC SB/VA LLN 2.88 VYAIRE PFT DLCOC SB/VA Z-SCORE -1.37 VYAIRE PFT DLCOC SB/VA % PRED 77.4 % VYAIRE PFT DLCOC SB/VA PREDPRES[facility] Stanojevic TLCO GLI (2019) VYAIRE PFT DLCOC SB/VA Z-SCORE -1.37 02/22 3:48 PM EDT VYAIRE PFT JBHWMBSOLRRTGB0JRX 4.97 4.73 - 7.15 L VYAIRE PFT VASINGLEBREATH PRED 5.90 VYAIRE PFT VASINGLEBREATH LLN 4.73 VYAIRE PFT VASINGLEBREATH Z-SCORE -1.31 VYAIRE PFT VASINGLEBREATH % PRED 84.2 % VYAIRE PFT VASINGLEBREATH PREDPRESBYTER[facility] Stanojevic TLCO GLI (2019) VYAIRE PFT VASINGLEBREATH Z-SCORE -1.31 02/22/2025 3:48 PM EDT VYAIRE PFT LELKWAHMLQXDRSA7BFQ 3.12 2.66 - 4.70 L VYAIRE PFT IVCSINGLEBREATH PRED 3.68 VYAIRE PFT IVCSINGLEBREATH LLN 2.66 VYAIRE PFT IVCSINGLEBREATH Z-SCORE -0.89 VYAIRE PFT IVCSINGLEBREATH % PRED 85.0 % VYAIRE PFT IVCSINGLEBREATH PREDPRESBY[facility] US_[facility] GLI (2011) VYAIRE PFT CLEMENTINE% VCMAX PRE 100.00 % VYAIRE PFT TLC SB PRE 5.11(A) 5.16 - 8.10 L VYAIRE PFT TLCSINGLEBREATH PRED 6.62 VYAIRE PFT TLCSINGLEBREATH LLN 5.16 VYAIRE PFT TLCSINGLEBREATH Z-SCORE -1.70 VYAIRE PFT TLCSINGLEBREATH % PRED 77.3 % VYAIRE PFT TLCSINGLEBREATH PREDBeverly Hospital Lung volumes GLI (2019)__ VYAIRE PFT HB PRE 14.60 g(Hb)/dL VYAIRE PFT MHR2XQH 6.30 5.16 - 8.10 L VYAIRE PFT TLCPRED 6.62 VYAIRE PFT TLCLLN 5.16 VYAIRE PFT TLCULN 8.10 VYAIRE PFT TLCZSCORE -0.36 VYAIRE PFT TLC%PRED 95.1 % VYAIRE PFT TLCPREDAUT Garcia Lung volumes GLI (2019)__ VYAIRE PFT VC0PRE 3.29 2.66 - 4.70 L VYAIRE PFT VCPRED 3.68 VYAIRE PFT VCLLN 2.66 VYAIRE PFT VCULN 4.70 VYAIRE PFT VCZSCORE -0.63 VYAIRE PFT VC%PRED 89.4 % VYAIRE PFT VCPREDAUTNEW MEX[facility] GLI (2011) VYAIRE PFT IC0PRE 1.78(A) 1.89 - 3.54 L VYAIRE PFT ICPRED 2.73 VYAIRE PFT ICLLN 1.89 VYAIRE PFT ICULN 3.54 VYAIRE PFT IC Z-SCORE -1.86 VYAIRE PFT IC%PRED 65.0 % VYAIRE PFT ICPREDAUTAdena [facility] Lung volumes GLI (2019)__ VYAIRE PFT XAIZSTBV6EVN 4.52 2.59 - 5.10 L VYAIRE PFT FRCPLETH PRED 3.70 VYAIRE PFT FRCPLETH LLN 2.59 VYAIRE PFT FRCPLETH ULN 5.10 VYAIRE PFT FRCPLETH Z-SCORE 1.01 VYAIRE PFT FRCPLETH % PRED 122.0 % VYAIRE PFT FRCPLETH PREDAUTAdena Regional Medical Center Lung volumes GLI (2019)__ VYAIRE PFT DLN9JFM 1.51 0.31 - 2.34 L VYAIRE PFT ERVPRED 1.12 VYAIRE PFT ERVLLN 0.31 VYAIRE PFT ERVULN 2.34 VYAIRE PFT ERV Z-SCORE 0.59 VYAIRE PFT ERV%PRED 135.3 % [facility] ERVPSpringhill Medical Center Lung volumes GLI (2019)__ VYAIRE PFT RV0PRE 3.01 1.43 - 3.98 L VYAIRE PFT RVPRED 2.58 VYAIRE PFT RVLLN 1.43 VYAIRE PFT RVULN 3.98 VYAIRE PFT RVZSCORE 0.54 VYAIRE PFT RV%PRED 116.9 % VYAIRE PFT RVPREDAUTAdena Regional Medical Center Lung volumes GLI (2019)__ VYAIRE PFT RV%CTX7HXY 47.82 26.68 - 53.53 % VYAIRE PFT RV%TLCPRED 40 VYAIRE PFT RV%TLCLLN 27 VYAIRE PFT RV%TLCULN 54 VYAIRE PFT RV%TLCZSCORE 0.97 VYAIRE PFT RV%TLC%PRED 120.2 % VYAIRE PFT RV%TLCPREDAUTAdena Regional Medical Center Lung volumes GLI (2019)__ VYAIRE PFT Anatomical Region Laterality Modality PFT 02/22/2025 2:39 PM EDT Narrative 02/23/2025 12:58 PM EDT Pulmonary Function Testing Report Cole Feliz Jr. 79 y.o. underwent pulmonary function testing today at the [facility]. The patient underwent spirometry, lung volumes [...] There are no prior studies for comparison. us Angel Parker MD PFT ORDERABLES Final Result * (ABNORMAL) [facility] [place] Cancer Seek Hybrid??? + IHCs and Other Tests by Tumor Type (01/28/2025 3:38 PM EDT) [facility] PD-L1 (22C3) Positive 2024 12:05 PM EDT [employer] [facility] PD-L1 FDA(SP142) Negative 03/09/2025 12:05 PM EDT [employer] [facility] Genomic Loss of Heterozygosity - [place] Low 6% 03/09/2025 12:05 PM EDT [employer] [facility] Microsatellite Instability - [place] Stable 03/09/2025 12:05 PM EDT [employer] [facility] Tumor Mutational [place] - [place] Low 3 per Mb 03/09/2025 12:05 PM EDT [employer] [facility] PD-L1 FDA (28-8) Positive 03/09/2025 12:05 PM EDT [employer] [facility] PD-L1 (SP263) Negative 03/09/2025 12:05 PM EDT [employer] [facility] Her2/Masha Negative 03/09/2025 12:05 PM EDT [employer] [facility] ALK Negative 03/09/2025 12:05 PM EDT [employer] [facility] HLA-A - [place] A*01:01,A*24 :02 03/09/2025 12:05 PM EDT [employer] [facility] HLA-B - [place] -,B*07:02 03/09/2025 12:05 PM EDT RECESS. HLA-C - [place] -,C*07:02 03/09/2025 12:05 PM EDT [facility] Tissue Non-blood Collection / Unknown 01/28/2025 3:38 PM EDT 02/23/2025 3:38 PM EDT Narrative This result has genomic variants that were not included in this document. Nikolai Shankar MD LAB MOL DX NO SOURCE Fi nal Result [facility] [address] [address], [place] [phone] * [place] Less than 1 Hour Intraoperative (01/28/2025 3:14 PM EDT) Narrative IMAGING - 01/28/2025 3:15 PM EDT Images were obtained for surgical purposes. See Angel Parker's surgical note in the patient's chart for the findings. Angel Parker MD IMG FLUOROSCOPY PROCEDURES Final Result Performing Organization Address City/[facility] Co de Phone Number IMAGING * Non-Gynecologic Cytology (01/28/2025 2:38 PM EDT) Case Report Cytology Case: [id number] Authorizing Provider: Angel Parker MD Collected: 01/28/2025 1438 Ordering Location: [facility]PER[facility] RO[facility] Received: 01/28/2025 1512 Pathologist: June Ventura MD Specimens: A) - Bronchial Brushing, Left Upper Lobe, BRONCHIAL BRUSHING, LEFT UPPER LOBE B) - Bronchoalveolar Lavage, Left Upper Lobe, BRONCHOALVEOLAR LAVAGE, LEFT UPPER LOBE 01/29/2025 3:53 PM EDT [facility] Final Diagnosis A. BRONCHIAL BRUSHING, LEFT UPPER LOBE - POSITIVE FOR MALIGNANCY, NON-SMALL CELL CARCINOMA B. BRONCHOALVEOLAR LAVAGE, LEFT UPPER LOBE - POSITIVE FOR MALIGNANCY, NON-SMALL CELL CARCINOMA - GMS STAIN IS NEGATIVE FOR ORGANISMS 01/29/2025 3:53 PM EDT [facility] at 1553 EDT Gross Description A. BRONCHIAL BRUSHING, LEFT UPPER LOBE Nolan tips in 4 ml's tinted fluid processed as thin prep B. BRONCHOALVEOLAR LAVAGE, LEFT UPPER LOBE 20 ml's bloody fluid processed as thin prep and GMS 01/29/2025 3:53 PM EDT [facility] Clinical Information lung nodule 01/29/2025 3:53 PM EDT [facility] Brushing Bronchial brushings specimen / Unknown 01/28/2025 2:38 PM EDT 01/28/2025 3:12 PM EDT Comment:Pre-op diagnosis: lung nodule Bronchoalveolar lavage fluid specimen (specimen) Bronchoalveolar lavage fluid specimen / Unknown 01/28/2025 2:42 PM EDT 01/28/2025 3:12 PM EDT Comment:Pre-op diagnosis: lung nodule Angel Parker MD LAB CYTOLOGY ORDERABLES Final Re sult [facility] [address] [place] [address] * Fine needle aspiration (01/28/2025 2:26 PM EDT) Case Report Cytology Case: [id number] Authorizing Provider: Angel Parker MD Collected: 01/28/2025 1407 Ordering Location: [facility]PER[facility] Received: 01/28/2025 1501 Pathologist: June Ventura MD Specimens: A) - Lung, Left Upper Lobe, Fine Needle Aspiration, LUNG, LEFT UPPER LOBE ENDOBRONCHIAL ULTRASOUND GUIDED FINE NEEDLE ASPIRATION B) - Lung, Left Upper Lobe, Transbronchial Biopsy, LUNG, LEFT UPPER LOBE TRANSBRONCHIAL BIOPSY 9:49 AM EDT [facility] Addendum PD-L1 IHC 22C3 pharmDx* is performed [...] of patients with metastatic NSCLC whose tumors express PD-L1 (TPS greater than or equal to 1%) as determined by an FDA-approved test, with disease progression on or after new [place]-containi ng chemotherapy. Patients with EGFR or ALK genomic tumor aberrations should have disease progression on FDA-approved therapy for these aberrations prior to receiving Pembrolizumab. PD-L1 IHC serves as a complementary diagnostic in regards to other PD-L1/PD-1-target edtherapies (Nivolumab, Atezolizumab, Durvalumab, etc). Expression level: >Negative for PD-L1 expression (TPS less than 1%) >Positive for PD-L1 expression (TPS 1-49%) >Positive for high PD-L1 expression (TPS greater than or equal to 50%) *PD-L1 IHC 22C3 pharmDx is a FDA-approved battery checker diagnostic for pembrolizumab performed on [employer] [...] prolonged time to fixation can affect PD-L1 staining/expressi on levels and results should be interpreted with caution in such instances. Additionally, tissue from older (greater than 5 yrs) formalin-fixed paraffin-embedded blocks may lose PD-L1 immunoreactivity. This assay is not validated for decalcified specimens. All controls show appropriate reactivity. All immunohistochemis try, in situ hybridization, and histochemical tests were developed by and are performed at the [facility], [address] [place] [address]. All tests reported here, except those addressing HER2 and PD-L1 expression as predictive markers, have not been cleared by or approved by the [place] Food and Drug Administration (FDA). The laboratory is regulated under CLIA as qualified to perform high-complexity testing. The tests are used for clinical purposes. They should not be regarded as investigational or for research. 9:49 AM EDT [facility] Addendum electronically signed by Radha Titus MD on 02/02/2025 at 0949 EDT Final Diagnosis A. 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 at 1557 EDT Comment History of a lung nodule since 2020 that is increasing in size, now 14 x 11 mm, is noted. The transbronchial biopsy from the left upper lobe demonstrates a non-small call carcinoma with the focal suggestion of gland formation. The immunoprofile noted below which supports the diagnosis of adenocarcinoma consistent with lung primary. PD-L1 IHC staining will be performed and that result will be issued as an addendum. 9:[address] [facility] Special and Immunohistochemical Stains IHC: B1-1 TTF-1: Positive in tumor cells B1-2 P40: Negative in tumor cells B1-3 CK7: Positive in tumor cells B1-4 CK20: Negative in tumor cells All controls show appropriate reactivity. All immunohistochemis try, in situ hybridization, and histochemical tests were developed by and are performed at the [facility], [address] [place] [address]. All tests reported here, except those addressing [...] likelihood of false negativity on decalcified specimens. 9:49 AM T [facility] Intradepartmental Consultation with Agreement Dr. Miller 9:49 AM T [facility] Immediate Evaluation A: FNA performed by: Dr. [...] the diagnosis that appears on the report. 9:49 AM T [facility] Gross Description A. LUNG, LEFT UPPER LOBE ENDOBRONCHIAL ULTRASOUND GUIDED FINE NEEDLE ASPIRATION 5 ml's bloody Needle rinse fluid processed as cellblock for complete evaluation of sample. Received 4 diff quick slides and 4 pap slides. [...] hours of formalin fixation. Cold Time: <1m 9:49 AM T [facility] Note: A resident was involved in the service. I attest I examined the relevant preparations for the specimens and confirmed the diagnosis or interpretation. 9:49 AM EDT [facility] Clinical Information lung nodule 9:49 AM EDT [facility] Tissue Structure of upper lobe of left lung / Unknown 01/28/2025 2:26 PM EDT 01/28/2025 3:01 PM EDT Comment:Pre-op diagnosis: lung nodule Specimen obtained by fine needle aspiration procedure (specimen) Specimen from lung obtained by fine needle aspiration procedure / Unknown 01/28/2025 2:07 PM EDT 01/28/2025 3:01 PM EDT Angel Parker MD LAB CYTOLOGY ORDERABLES Edited R esult - Final [facility] [address] [place] [address] * Fine needle aspiration (01/28/2025 2:07 PM EDT) Case Report Cytology Case: [id number] Authorizing Provider: Angel Parker MD Collected: 01/28/2025 1407 Ordering Location: [facility] A OPERATING ROOM Received: 01/28/2025 1509 Pathologist: June Ventura MD Specimens: A) - Lung, Left Upper Lobe, Fine Needle Aspiration, LUNG, LEFT UPPER LOBE ENDOBRONCHIAL ULTRASOUND GUIDED FINE NEEDLE ASPIRATION B) - Lung, Left Upper Lobe, Transbronchial Biopsy, LUNG, LEFT UPPER LOBE TRANSBRONCHIAL BIOPSY 9:[address] [facility] Addendum PD-L1 IHC 22C3 pharmDx* is performed [...] of patients with metastatic NSCLC whose tumors express PD-L1 (TPS greater than or equal to 1%) as determined by an FDA-approved test, with disease progression on or after new koliganek-containi ng chemotherapy. Patients with EGFR or ALK genomic tumor aberrations should have disease progression on FDA-approved therapy for these aberrations prior to receiving Pembrolizumab. PD-L1 IHC serves as a complementary diagnostic in regards to other PD-L1/PD-1-target edtherapies (Nivolumab, Atezolizumab, Durvalumab, etc). Expression level: >Negative for PD-L1 expression (TPS less than 1%) >Positive for PD-L1 expression (TPS 1-49%) >Positive for high PD-L1 expression (TPS greater than or equal to 50%) *PD-L1 IHC 22C3 pharmDx is a FDA-approved battery checker diagnostic for pembrolizumab performed on [employer] using formalin-fixed, paraffin imbedded (FFPE) tissue [...] prolonged time to fixation can affect PD-L1 staining/expressi on levels and results should be interpreted with caution in such instances. Additionally, tissue from older (greater than 5 yrs) formalin-fixed paraffin-embedded blocks may lose PD-L1 immunoreactivity. This assay is not validated for decalcified specimens. All controls show appropriate reactivity. All immunohistochemis try, in situ hybridization, and histochemical tests were developed by and are performed at the [facility], [address] [place] [address]. All tests reported here, except those addressing HER2 and PD-L1 expression as predictive markers, have not been cleared by or approved by the US Food and Drug Administration (FDA). The laboratory is regulated under CLIA as qualified to perform high-complexity testing. The tests are used for clinical purposes. They should not be regarded as investigational or for research. 9:49 AM EDT [facility] Addendum electronically signed by Radha Titus MD on 02/02/2025 at 0949 EDT Final Diagnosis A. 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 The transbronchial biopsy from the left upper lobe demonstrates a non-small call carcinoma with the focal suggestion of gland formation. The immunoprofile noted below which supports the diagnosis of adenocarcinoma consistent with lung primary. PD-L1 IHC staining will be performed and that result will be issued as an addendum. 9:[address] [facility] Special and Immunohistochemical Stains IHC: B1-1 TTF-1: Positive in tumor cells B1-2 P40: Negative in tumor cells B1-3 CK7: Positive in tumor cells B1-4 CK20: Negative in tumor cells All controls show appropriate reactivity. All immunohistochemis try, in situ hybridization, and histochemical tests were developed by and are performed at the [facility], [address] [place] [address]. All tests reported here, except those addressing [...] of false negativity on decalcified specimens. 5 9:49 AM EDT [facility] Intradepartmental Consultation with Agreement Dr. Miller 9:[address] [facility] Immediate Evaluation A: FNA performed by: Dr. [...] the diagnosis that appears on the report. 5 9:49 AM T [facility] Gross Description A. LUNG, LEFT UPPER LOBE ENDOBRONCHIAL ULTRASOUND GUIDED FINE NEEDLE ASPIRATION 5 ml's bloody Needle rinse fluid processed as cellblock for complete evaluation of sample. Received 4 diff quick slides and 4 pap slides. [...] hours of formalin fixation. Cold Time: <1m 9:49 AM EDT [facility] Note: A resident was involved in the service. I attest I examined the relevant preparations for the specimens and confirmed the diagnosis or interpretation. 9:49 AM EDT [facility] Clinical Information lung nodule 9:49 AM EDT [facility] Fine Needle Aspirate Specimen from lung obtained by fine needle aspiration procedure / Unknown 01/28/2025 2:07 PM EDT 01/28/2025 3:01 PM EDT Comment:Pre-op diagnosis: lung nodule Tissue specimen (specimen) Structure of upper lobe of left lung / Unknown 01/28/2025 2:26 PM EDT 01/28/2025 3:01 PM EDT us Angel Parker MD LAB CYTOLOGY ORDERABLES Edited R esult - Final [facility] [address] [place] [address] * [place] AN ELECTIVE ENDOTRACHEAL AIRWAY, PB ANESTHESIA PLACEHOLDER (01/28/2025 1:27 PM EDT) Narrative Kizzy Cottrell MD - 01/28/2025 1:27 PM EDT Kizzy Cottrell MD 01/28/2025 5:51 PM Airway Date/Time: 01/28/2025 1:27 PM Reason: elective Airway not difficult General Information and Staff Patient location during procedure: OR Anesthesiologist: Kizzy Cottrell MD ANIMATION ARTIST: Barbara De Los Santos CRNA, DNP Resident: Marek Collier MD Performed: Resident Patient Condition Indications for airway management: anesthesia Patient position: sniffing Final Airway Details Final airway type: endotracheal [...] Additional Comments Atraumatic. No change to dentition. us Kizzy Cottrell MD ANESTHESIA ORDERABLES Final Re sult * CT Chest wo IV Contrast (01/28/2025 11:33 AM EDT) Anatomical Region Laterality Modality Chest Computed Tomogra phy Impressions 01/28/2025 2:54 PM EDT Slight increase in size of a 14 mm left upper lobe pulmonary nodule. Recommend correlation with tissue sampling. CRITICAL RESULT: No. COMMUNICATION: Per this written report. By electronically signing this report, I, the attending physician, attest that I have personally reviewed the images/data for the above examination(s) and agree with the final edited report. Drafted by DUY Castellanos on 01/28/2025 12:00 PM Final report signed by Mando Rodrigez MD on 01/28/2025 2:54 PM Narrative 01/28/2025 2:54 PM EDT CLINICAL INDICATION: Abnormal xray - lung nodule (Age >= 35y) TECHNIQUE: Multiple CT helical images were obtained from thoracic inlet through upper abdomen without administration of IV contrast. Total DLP (Dose-Length Product): 103.60 mGy.cm. Please note: The reported value represents the total of one or more individual components during the CT acquisition on this date and at this time, and as such, the same value may appear in more than one CT report depending on the interpreting/reporting physicians. COMPARISON: December 18, [address] FINDINGS: Mediastinum and Pleura: No mediastinal or hilar adenopathy. Calcified right hilar lymph nodes. Severe coronary artery calcifications. No pleural or pericardial effusion. Lungs: Slight increase in size mm left upper lobe subpleural nodule measuring up to 14 mm, previously 12 mm, 20 (series 2, image 17). Stable 5 mm pleural-based right lower lobe nodule (series 2, image 39) and 3 mm right lower lobe nodule (series 2, image 60). Calcified granulomas right lung. No new suspicious pulmonary nodules. Central airways are patent. Upper Abdomen: Multiple stable low-density hepatic lesions, measuring up to 17 mm, likely cysts (series 2, image 97). Musculoskeletal: No suspicious lytic or sclerotic lesion. Degenerative changes of spine. Ossification of anterior longitudinal ligament. Multiple healed left- sided rib fractures. Procedure Note Mando Rodrigez MD - 01/28/2025 CLINICAL INDICATION: Abnormal xray - lung nodule (Age >= 35y) TECHNIQUE: Multiple CT helical images were obtained from thoracic inlet through upperabdomen without administration of IV contrast. Total DLP (Dose-Length Product): 103.60 mGy.cm. Please note: The reportedvalue represents the total of one or more individual components during theCT acquisition on this date and at this time, and as such, the same valuemay appear in more than one CT report depending on theinterpreting/reporting physicians. COMPARISON: December 18, [address] FINDINGS: Mediastinum and Pleura: No mediastinal or hilar adenopathy. Calcifiedright hilar lymph nodes. Severe coronary artery calcifications. No pleuralor pericardial effusion. Lungs: Slight increase in size mm left upper lobe subpleural nodulemeasuring up to 14 mm, previously 12 mm, 20 (series 2, image 17). Stable 5mm pleural-based right lower lobe nodule (series 2, image 39) and 3 mmright lower lobe nodule (series 2, image 60). Calcified granulomas rightlung. No new suspicious pulmonary nodules. Central airways are patent. Upper Abdomen: Multiple stable low-density hepatic lesions, measuring upto 17 mm, likely cysts (series 2, image 97). Musculoskeletal: No suspicious lytic or sclerotic lesion. Degenerativechanges of spine. Ossification of anterior longitudinal ligament. Multiplehealed left-sided rib fractures. IMPRESSION: Slight increase in size of a 14 mm left upper lobe pulmonary nodule.Recommend correlation with tissue sampling. CRITICAL RESULT: No. COMMUNICATION: Per this written report. By electronically signing this report, I, the attending physician, attestthat I have personally reviewed the images/data for the aboveexamination(s) and agree with the final edited report. Drafted by DUY Castellanos on 01/28/2025 12:00 PM Final report signed by Mando Rodrigez MD on 01/28/2025 2:54 PM Angel Parker MD IMG CT PROCEDURES Final Result from Last 3 Months Insurance ANTHEM MEDICARE ANTHEM MEDICARE Advance Directives * Full Code (Latest Code Status on File) Date Activated Date Inactivated Comments 03/29/2025 7:30 PM 04/04/2025 2:23 PM Question Answer Comments I have reviewed the capacity from the link above and, if needed, have updated to appropriate status: No Care Teams Esl Tutor Relationship Specialty Start Date End Date Casa Phillips MD [address] [place] [address] PCP - General 02/22/25 Forrest Nickerson APRN [address] [place] [address] 03/06/23
--- OUTSIDE RECORDS SUMMARY | 2025-04-14 14:14 | XMS_ITS | Encounter Summary ---
Author Organization [facility] Address [address] [place] [address] Care Team Providers Care Credit Risk Review Officer Name Role Phone Forrest Nickerson NURSING INFORMATION SYSTEMS COORDINATOR Unavailable [phone] Casa Phillips MD Primary Care Provider [phone] Encounter Details Date Type Department Care Team (Late st Contact Info) Description 04/07/2025 Telephone [facility] Hematology/BMT and Cellular Therapy Program [address] [place] [address] [place] [address] Tyler Montero Social History Tobacco Use Types Packs/Day Years [...] any time in the past 12 m [facility], were you homeless or living in a [facility] (including now)? No 03/31/2025 Utilities Answer Date [...] encounter Miscellaneous Notes * Progress Notes - Tyler Montero - 04/07/2025 4:11 PM EDT Patient's daughter answered. She expressed concern over the central registration staff being rude to her father upon check-in on multiple occasions. Ensured her that the problem was being resolved and the staff member will not be here past this week. Thanked her for her feedback and for taking the survey. documented in this encounter Plan of Treatment Upcoming Encounters Date Type Department Care Team (Late st Contact Info) Description 04/20/2025 10:00 AM EDT Appointment [facility] H Radiology [address] [place] [address] 04/20/2025 10:30 AM EDT Office Visit [facility] Head, Neck & Respiratory [address] [facility], 2nd [place] [address] Ирина Lopez MD [address] [facility] [address] [place] [address] 07/06/2025 10:40 AM EDT Office Visit [facility] Head, Neck & Respiratory [address] [facility], 2nd [place] [address] Nikolai Naranjo MD [address] [place] [address] documented as of this encounter Visit Diagnoses Not on filedocumented in this encounter Additional Health Concerns Assessment Noted Time A fall risk assessment has been complete d for the patient 04/06/2025 10:27 AM EDT A Body Mass Index follow-up plan has been documented for the patient 04/06/2025 12:11 PM EDT documented as of this encounter Care Teams Credit Risk Review Officer Relationship Specialty Start Date End Date Casa Phillips MD [address] [place] [address] PCP - General 02/22/25 Forrest Nickerson APRN [address] [place] [address] 03/06/23 documented as of this encounter
--- OUTSIDE RECORDS SUMMARY | 2025-04-14 14:14 | XMS_ITS | Encounter Summary ---
Author Organization [facility] Address [address] [place] [address] Care Team Providers Care Housekeeping Associate Name Role Phone Forrest Nickerson PRODUCT FINISHER Unavailable [phone] Casa Phillips MD Primary Care Provider [phone] Encounter Details Date Type Department Care Team (Late st Contact Info) Description 04/07/2025 Telephone [facility] Hematology/BMT and Cellular Therapy Program [address] [place] [address] [place] [address] Tyler Montero Social History Tobacco Use Types [...] were you homeless or living in a [place] [facility] (including now)? No 03/31/2025 Utilities Answer Date [...] on file documented as of this encounter Plan of Treatment Upcoming Encounters Date Type Department Care Team (Late st Contact Info) Description 04/20/2025 10:00 AM EDT Appointment [facility] Radiology [address] [place] [address] 04/20/2025 10:30 AM EDT Office Visit [facility] Head, Neck & Respiratory [address] [facility], [address]nd [place] [address] Ирина Lopez MD [address] [facility] [address] [place] [address] 07/06/2025 10:40 AM EDT Office Visit [facility] Head, Neck & Respiratory [address] [facility], [address]nd [place] [address] Nikolai Naranjo MD [address] [facility] [address] [place] [address] documented as of this encounter Visit Diagnoses Not on filedocumented in this encounter Additional Health Concerns Assessment Noted Time A fall risk assessment has been complete d for the patient 04/06/2025 10:27 AM EDT A Body Mass Index follow-up plan has been documented for the patient 04/06/2025 12:11 PM EDT documented as of this encounter Care Teams Housekeeping Associate Relationship Specialty Start Date End Date Casa Phillips MD [address] [place] [address] PCP - General 02/22/25 Forrest Nickerson APRN [address] [place] [address] 03/06/23 documented as of this encounter
--- OUTSIDE RECORDS SUMMARY | 2025-04-14 14:14 | XMS_ITS ---
Author Organization [facility] Address [address] [place] [address] Care Team Providers Care Case Management Coordinator Name Role Phone Zari Nickersonhéctor Theresa FRAME PULLEY MORTISING MACHINE OPERATOR Unavailable [phone] Casa Phillips MD Primary Care Provider [phone] Active Problems Problem Noted Date Diagnosed Date [...] current use of insulin 03/26/2022 Microalbuminuria 03/26/2022 Current Treatment and Therapy Plans No current plan information found. Past Treatment and Therapy Plans No past plan information found. Lifetime Dose Tracking * Chemical Lifetime Dose Automatic Entry Manual Entr y Fluoro Time 11.6 minutes 11.6 minutes 0 minutes Air Kerma 329.1 mGy 329.1 mGy 0 mGy
--- OUTSIDE RECORDS SUMMARY | 2025-04-14 14:14 | XMS_ITS | Encounter Summary ---
Author Organization [facility] Address [address] [place] [address] Care Team Providers Care Line Palletizer Name Role Phone Deep Keen APRN Primary Care Provider [phone] Forrest Nickerson APRN Unavailable [phone] Casa Phillips MD Primary Care Provider [phone] Encounter Details Date Type Department Care Team (Late st Contact Info) Description 05/12/2024 Orders Only External Location [address] [place] [address] Provider, External Social History Tobacco Use Types Packs/Day Years Used Date Smoking Tobacco: Every Day Cigars Smokeless Tobacco: Former Alcohol Use Standard Drinks/Week Comments Not Currently 0 (1 standard drink = 0.6 oz pur e alcohol) Sex and Gender Information Value Date Recorded Sex Assigned at Male 01/28/2025 11:17 AM EDT Legal Sex Male 8:02 PM EDT Gender Identity Male 01/28/2025 11:17 AM EDT Sexual Orientation Not on file documented as of this encounter Plan of Treatment Upcoming Encounters Date Type Department Care Team (Late Contact Info) Description 04/20/2025 10:00 AM EDT Appointment [facility] Radiology [address] [place] [address] 04/20/2025 10:30 AM EDT Office Visit [facility] Head, Neck & Respiratory 800 [facility], [address]nd [place] [address] Ирина Lopez MD [address] [place] [address] 07/06/2025 10:40 AM EDT Office Visit [facility] Head, Neck & Respiratory [address] [facility], [address]nd [place] [address] Nikolai Naranjo MD [address] [facility] [address] [place] [address] documented as of this encounter Procedures Procedure Name Priority Date/Time Associated Diagnosis Comments CT OUTSIDE IMAGES 05/12/2024 1:01 PM EDT documented in this encounter Results * CT OUTSIDE IMAGES (05/12/2024 1:01 PM EDT) Anatomical Region Laterality Modality Computed Tomogra phy 05/12/2024 1:01 PM EDT us External Provider IMG CT PROCEDURES Final Result documented in this encounter Visit Diagnoses Not on filedocumented in this encounter Additional Health Concerns Assessment Noted Time A fall risk assessment has been complete d for the patient 07/22/2023 1:27 PM EDT documented as of this encounter Care Teams Line Palletizer Relationship Specialty Start Date End Date Deep Keen APRN [address] [place] [address] PCP - General 03/06/23 02/21/25 Casa Phillips MD [address] [place] [address] PCP - General 02/22/25 Forrset Nickerson APRN [address] [place] [address] 03/06/23 documented as of this encounter
--- OUTSIDE RECORDS SUMMARY | 2025-04-14 14:14 | XMS_ITS | Encounter Summary ---
Author Organization [facility] Address [address] [place] [address] Care Team Providers Care Stereo Equipment Installer Name Role Phone Forrest Nickerson MARINE CARGO SPECIALIST Unavailable [phone] Casa Phillips MD Primary Care Provider [phone] Encounter Details Date Type Department Care Team (Late st Contact Info) Description 04/07/2025 Telephone [facility] Hematology/BMT and Cellular Therapy Program [address] [place] [address] [place] [address] Tyler Montero Social History Tobacco Use Types [...] were you homeless or living in a nursing home (including now)? No 03/31/2025 Utilities Answer Date [...] AM EDT Appointment [facility] H Radiology [address] [place] [address] 04/20/2025 10:30 AM EDT Office Visit Pav CC Head, Neck & Respiratory [address] [facility], [address]nd [place] [address] Ирина Lopez MD [address] [facility] [address] [place] [address] 07/06/2025 10:40 AM EDT Office Visit [facility] CC Head, Neck & Respiratory [address] [facility], [address]nd [place] [address] Nikolai Naranjo MD [address] [facility] [address] [place] [address] documented as of this encounter Visit Diagnoses Not on filedocumented in this encounter Additional Health Concerns Assessment Noted Time A fall risk assessment has been complete d for the patient 04/06/2025 10:27 AM EDT A Body Mass Index follow-up plan has been documented for the patient 04/06/2025 12:11 PM EDT documented as of this encounter Care Teams Stereo Equipment Installer Relationship Specialty Start Date End Date Casa Phillips MD [address] [place] [address] PCP - General 02/22/25 Forrest Nickerson APRN [address] [place] [address] 03/06/23 documented as of this encounter
--- OUTSIDE RECORDS SUMMARY | 2025-04-14 14:14 | XMS_ITS | Referral Summary ---
Author Organization [employer] ([place], [place], [place], [place]) Address [address] [place] [address] Care Team Providers Care Seo Expert Name Role Phone Unavailable Primary Care Provider Unavailabl e Allergies Active Allergy Reactions Criticality Noted Date Comments Cetirizine 05/31/2023 Medications aspirin 81 MG EC tablet Take 1 tablet (81 mg total) by mouth. Active clopidogreL (PLAVIX) 75 mg tablet Take by mouth. Active rosuvastatin (CRESTOR) 20 MG tablet Take 1 tablet (20 mg total) by mouth. Active Active Problems Problem Noted Date Diagnosed Date Gross hematuria 06/02/2023 Hematuria 05/31/2023 Social History Tobacco Use Types Packs/Day Years Used Date Smoking Tobacco: Every Day Cigars Started: 1979 Smokeless Tobacco: Current Tobacco Cessation:Ready to Q uit: No; Counseling Given: Yes Alcohol Use Standard Drinks/Week Comments Yes 7 (1 standard drink = 0.6 oz pur e alcohol) PRAPARE - Transportation Answer Date Re corded In the past 12 months, has l ack of transportation kept you from medical appointments or from getting medications? No 05/31/2023 Lack of Transportation (Non-Medical) Not on file 05/31/2023 Food Insecurity Answer Date Recorded Food run out past 12 months Not on file 10/14 Food did not last past 12 months Not on file 11/01/2023 Employment Answer Date Recorded Help finding and keeping a job Not on file 0 11/01/2023 Family and Community Support Answer Melvin e Recorded Help with Day to Day Activities Not on file 11/01/2023 Feeling Lonely or Isolated Not on file 11/01 Educational Attainment Answer Date Terrance rded Speak language other than Icelandic at home Not on file 11/01/2023 Want help with school or training Not on file 11/01/2023 Substance Use Answer Date Recorded Used prescription meds for non-medical reasons N ot on file 11/01/2023 Used illegal drugs past 12 months Not on file 11/01/2023 Sex and Gender Information Value Date Recorded Sex Assigned at Not on file Legal Sex Male 11:31 AM CDT Gender Identity Not on file Sexual Orientation Not on file Last Filed Vital Signs Vital Sign Reading Time Taken Comments Blood Pressure 119/54 06/05/2023 1:39 PM EDT Pulse 64 06/05/2023 1:39 PM EDT Temperature 36.9 C (98.4 F) 06/05/2023 1:39 PM EDT Respiratory Rate 19 06/05/2023 1:39 PM EDT Oxygen Saturation 100% 06/05/2023 1:39 PM EDT Inhaled Oxygen Concentration - - Weight 69 kg (152 lb 1.9 oz) 06/05/2023 6:00 AM EDT Height 177 cm (5' 9.69 ) 05/31/2023 4:25 AM EDT Body Mass Index 22.02 05/31/2023 4:25 AM EDT Plan of Treatment Not on file Advance Directives For more information, please contact: [phone] * Full Code (Latest Code Status on File) Date Activated Date Inactivated Comments 05/31/2023 2:57 AM 06/05/2023 3:16 PM -Attempt Res uscitation if person has no pulse and is not breathing. -If no pulse or not breathing attempt CPR/CODE. -Call Rapid Response if patient is in distress.
--- OUTSIDE RECORDS SUMMARY | 2025-04-14 14:14 | XMS_ITS | Encounter Summary ---
Author Organization [facility] Address [address] [place] [address] Care Team Providers Care Plastic Bubble Packer Name Role Phone Deep Keen APRN Primary Care Provider [phone] Forrest Nickerson ENGINE MECHANIC Unavailable [phone] Casa Phillips MD Primary Care Provider + [phone] Encounter Details Date Type Department Care Team (Late st Contact Info) Description 02/10/2025 Telephone [facility] Head[facility] Neck & Respiratory [address] [facility], [address]nd [place] [address] Nikolai Naranjo MD [address] [facility] [address] [place] [address] Social History Tobacco Use Types Packs/Day Years [...] as of this encounter Miscellaneous Notes * Telephone Encounter - Laughlin, Annmarie D - 02/23/2025 3:28 PM EDT Patient Phone Message Reason for Call:Patient daughter is wanting to have fmla papers emailed to her [email or web address] Best contact number and optimal time of day to reach caller:Nora [phone] Note: Please do not reply to this message. Follow-up communication and further actions as a result of this message need to be communicated with the patient directly, if the patient is not active onMyChart. If the patient is active on MyChart, they will receive notification of the communication/outcome via [employer]. * Telephone Encounter - Wendy Garay - 02/10/2025 11:08 AM EDT 02/10- Attempted to call pt with upcoming appts for Dr. Shankar and Dr. Lopez, no answer, left VM with appt detail and mailed out appt reminders. documented in this encounter Plan of Treatment Upcoming Encounters Date Type Department Care Team ([facility] Contact Info) Description 04/20/2025 10:00 AM EDT Appointment [facility] H Radiology [address] [place] [address] 04/20/2025 10:30 AM EDT Office Visit Pav [facility] Head, Neck & Respiratory [address] [facility], 2nd [place] [address] Ирина Lopez MD [address] [place] [address] 07/06/2025 10:40 AM EDT Office Visit [facility] Head[facility] Neck & Respiratory [address] [facility], [address]nd [place] [address] Nikloai Naranjo MD [address] [facility] [address] [place] [address] documented as of this encounter Visit Diagnoses Not on filedocumented in this encounter Additional Health Concerns Assessment Noted Time A fall risk assessment has been complete d for the patient 01/07/2025 1:22 PM EDT A Body Mass Index follow-up plan has been documented for the patient 02/05/2025 10:35 AM EDT documented as of this encounter Care Teams Plastic Bubble Packer Relationship Specialty Start Date End Date Deep Keen APRN [address] [place], [place] [id number] PCP - General 03/06/23 02/21/25 Casa Phillips MD [address] [place] [address] PCP - General 02/22/25 Forrest Nickerson APRN [address] [place] [address] 03/06/23 documented as of this encounter
--- OUTSIDE RECORDS SUMMARY | 2025-04-14 14:14 | XMS_ITS | Clinical Summary ---
Author Organization [email or web address] ([place], [place], [place], [place]) Address [address] [place] [address] Care Team Providers Care Internet Site Designer Name Role Phone Unavailable Primary Care Provider [...] Date Terrance rded Speak language other than Sri Lankan at home Not on file 11/01/2023 Want [...] 05/31/2023 4:25 AM EDT Plan of Treatment Health Maintenance Due Date Last Done Comments Depression Screening (12+) 1958 Hepatitis C Screening 1964 DTAP/TDAP/TD VACCINES (1 - Tdap) 1965 Pneumococcal 50+ years (1 of 2 - PCV) 1965 Shingles Vaccine (Zoster) (1 of 2) 1996 Respiratory Syncytial Virus (RSV) Adult or (1 - 1-dose 75+ series) 2021 Tobacco Cessation Counseling and Screening (12+) 05/3105/31/2023 COVID-19 VACCINE ( - 2023- season) 2024 Falls Risk Screening 10/14/2024 Influenza Vaccine (Season Ended) 2025 Advance Directives For more information, please contact: [phone] * Full Code (Latest Code Status on File) Date Activated Date Inactivated Comments 05/31/2023 2:57 AM 06/05/2023 3:16 PM -Attempt Res uscitation if person has no pulse and is not breathing. -If no pulse or not breathing attempt CPR/CODE. -Call Rapid Response if patient is in distress.
--- OUTSIDE RECORDS SUMMARY | 2025-04-14 14:15 | XMS_ITS | Encounter Summary ---
Author Organization [facility] Address [address] [place] [address] Care Team Providers Care Dye Range Operator Name Role Phone KraiglillianForrest MANAGER WASTEWATER Unavailable [phone] Casa Phillips MD Primary Care Provider [phone] Encounter Details Date Type Department Care Team (Late st Contact Info) Description 04/07/2025 Telephone Pav [facility] Head, Neck & Respiratory [address] , [address] [place] [address] Aishwarya Dye, RN [facility] Social History Tobacco Use Types Packs/Day Years [...] any time in the past 12 m [facility], were you homeless or living in a fci (including now)? No 03/31/2025 Utilities Answer Date [...] encounter Miscellaneous Notes * Telephone Encounter - Aishwarya Dye RN - 04/07/2025 9:06 AM EDT Spoke to patient. Referral sent to Dr Dagoberto Rosales with [facility]. documented in this encounter Plan of Treatment Upcoming Encounters Date Type Department Care Team (Late st Contact Info) Description 04/20/2025 10:00 AM EDT Appointment [facility] Radiology [address] [place] [address] 04/20/2025 10:30 AM EDT Office Visit Pav [facility] Head, Neck & Respiratory 800 [facility], 2nd [place] [address] Ирина Lopez MD [address] [facility] [address] [place] [address] 07/06/2025 10:40 AM EDT Office Visit Pav [facility] Head, Neck & Respiratory [address] [facility], [address]nd [place] [address] Nikolai Naranjo MD 800 [facility] [address] [facility] [address] [place] [address] documented as of this encounter Visit Diagnoses Not on filedocumented in this encounter Additional Health Concerns Assessment Noted Time A fall risk assessment has been complete d for the patient 04/06/2025 10:27 AM EDT A Body Mass Index follow-up plan has been documented for the patient 04/06/2025 12:11 PM EDT documented as of this encounter Care Teams Dye Range Operator Relationship Specialty Start Date End Date Casa Phillips MD [address] [place] [address] PCP - General 02/22/25 Forrest Nickerson APRN [address] [place] [address] 03/06/23 documented as of this encounter
--- OUTSIDE RECORDS SUMMARY | 2025-04-14 14:15 | XMS_ITS | Encounter Summary ---
Author Organization [facility] Address [address] [place] [address] Care Team Providers Care Hatchery Manager Name Role Phone Forrest Nickerson ASSOCIATE COUNSEL Unavailable [phone] Casa Phillips MD Primary Care Provider [phone] Encounter Details Date Type Department Care Team (Latest Contact Info) Description 04/03/2025 Travel Social History Tobacco Use Types Packs/Day Years [...] time in the past 12 m [facility], were you homeless or living in a prison (including now)? No 03/31/2025 Utilities Answer Date [...] on file documented as of this encounter Functional Status * Calculated C-SSRS Risk Score (Lifetime/Recent) Answer Date of Assessment Author No Risk Indicated 04/03/2025 8:30 AM EDT Carmella Iniguez RN * Question Answer Date of Assessment Author 1. Wish to be (Past 1 Month) No 025 8:30 AM EDT Carmella Iniguez RN 2. Non-Specific Active Suici yesica Thoughts (Past 1 Month) No 04/03/2025 8:30 AM EDT Raysa Iniguez RN 6. Suicidal Behavior (Lifetime) No 8:30 AM EDT Carmella Iniguez RN documented as of this encounter Plan of Treatment Upcoming Encounters Date Type Department Care Team (Late st Contact Info) Description 04/20/2025 10:00 AM EDT Appointment [facility] H Radiology 800 [place] [phone] 04/20/2025 10:30 AM EDT Office Visit Pav [facility] Head, Neck & Respiratory [address] [facility], 2nd [place] [address] Ирина Lopez MD [address] [facility] [address] [place] [address] 07/06/2025 10:40 AM EDT Office Visit Pav CC Head, Neck & Respiratory [address] [facility], 2nd [place] [address] Nikolai Naranjo MD [address] [facility] [address] [place] [address] documented as of this encounter Visit Diagnoses Not on filedocumented in this encounter Additional Health Concerns Assessment Noted Time A fall risk assessment has been complete d for the patient 02/23/2025 8:48 AM EDT A Body Mass Index follow-up plan has been documented for the patient 04/04/2025 10:30 AM EDT documented as of this encounter Care Teams Hatchery Manager Relationship Specialty Start Date End Date Casa Phillips MD [address] [place] [address] PCP - General 02/22/25 Forrest Nickerson APRN [address] [place] [address] 03/06/23 documented as of this encounter
--- OUTSIDE RECORDS SUMMARY | 2025-04-14 14:15 | XMS_ITS | Encounter Summary ---
Author Organization [facility] Address [address] [place] [address] Care Team Providers Care Marketing Programs Manager Name Role Phone Forrest Nickerson LEGAL TECHNICIAN Unavailable [phone] Casa Phillips MD Primary Care Provider [phone] Encounter Details Date Type Department Care Team (Latest Contact Info) Description 04/04/2025 Travel Social History Tobacco Use Types Packs/Day [...] any time in the past 12 m [facility], were you homeless or living in a [...] AM EDT Appointment PAV H Radiology 800 [place] [address] 04/20/2025 10:30 AM EDT Office Visit Pav CC Head, Neck & Respiratory [address] [facility], 2nd [place] [address] Ирина Lopez MD [address] [facility] [address] [place] [address] 07/06/2025 10:40 AM EDT Office Visit Pav CC Head, Neck & Respiratory [address] [facility], [address]nd [place] [address] Nikolai Naranjo MD [address] [facility] [address] [place] [address] documented as of this encounter Visit Diagnoses Not on filedocumented in this encounter Additional Health Concerns Assessment Noted Time A fall risk assessment has been complete d for the patient 02/23/2025 8:48 AM EDT A Body Mass Index follow-up plan has been documented for the patient 04/04/2025 10:30 AM EDT documented as of this encounter Care Teams Marketing Programs Manager Relationship Specialty Start Date End Date Casa Phillips MD [address] [place] [address] PCP - General 02/22/25 Forrest Nickerson APRN [address] [place] [address] 03/06/23 documented as of this encounter
--- OUTSIDE RECORDS SUMMARY | 2025-04-14 14:15 | XMS_ITS | Encounter Summary ---
Author Organization [facility] Address [address] [place] [address] Care Team Providers Care Chief Controller Name Role Phone Forrest Nickerson OFFICE COORDINATOR RECEPTIONIST Unavailable [phone] Casa Phillips MD Primary Care Provider [phone] Encounter Details Date Type Department Care Team (Latest Contact Info) Description 04/01/2025 Travel Social History Tobacco Use Types Packs/Day [...] any time in the past 12 m [facility], were you homeless or living in a care home (including now)? No 03/31/2025 Utilities Answer [...] Date of Assessment Author No Risk Indicated 04/01/2025 8:00 AM EDT Fitz Calle RN * Question Answer Date of Assessment Author 1. Wish to be (Past 1 Month) No 025 8:00 AM EDT Fitz Calle RN 2. Non-Specific Active Suici yesica Thoughts (Past 1 Month) No 04/01/2025 8:00 AM EDT Fitz Calle , BUCK 6. Suicidal Behavior (Lifetime) No 8:00 AM EDT Fitz Calle, BUCK documented as of this encounter Plan of Treatment Upcoming Encounters Date Type Department Care Team (Late st Contact Info) Description 04/20/2025 10:00 AM EDT Appointment [facility] Radiology 800 [place] [address] 04/20/2025 10:30 AM EDT Office Visit [facility] Head, Neck & Respiratory 800 [facility], 2nd [place] [address] Ирина Lopez MD [address] [place] [address] 07/06/2025 10:40 AM EDT Office Visit Pav CC Head, Neck & Respiratory [address] [facility], 2nd [place] [address] Nikolai Naranjo MD [address] [facility] [address] [place] [address] documented as of this encounter Visit Diagnoses Not on filedocumented in this encounter Additional Health Concerns Assessment Noted Time A fall risk assessment has been complete d for the patient 02/23/2025 8:48 AM EDT A Body Mass Index follow-up plan has been documented for the patient 04/04/2025 10:30 AM EDT documented as of this encounter Care Teams Chief Controller Relationship Specialty Start Date End Date Casa Phillips MD [address] [place] [address] PCP - General 02/22/25 Forrest Nickerson APRN [address] [place] [address] 03/06/23 documented as of this encounter
--- OUTSIDE RECORDS SUMMARY | 2025-04-14 14:15 | XMS_ITS | Encounter Summary ---
Author Organization [facility] Address [address] [place] [address] Care Team Providers Care Cemetery Vault Installer Name Role Phone Forrest Nickerson BURLAP MAN Unavailable [phone] Casa Phillips MD Primary Care Provider [phone] Encounter Details Date Type Department Care Team (Latest Contact Info) Description 04/02/2025 Travel Social History Tobacco Use Types Packs/Day [...] were you homeless or living in a group home (including now)? No 03/31/2025 Utilities Answer Date Recorded In the past 12 months has th e [employer], gas, oil, or water company threatened to [...] Date of Assessment Author No Risk Indicated 04/02/2025 8:03 PM EDT Xochitl Fagan * Question Answer Date of Assessment Author 1. Wish to be (Past 1 Month) No 025 8:03 PM EDT Xochitl Fagan 2. Non-Specific Active Suici yesica Thoughts (Past 1 Month) No 04/02/2025 8:03 PM EDT Xochitl Fagan 6. Suicidal Behavior (Lifetime) No 8:03 PM EDT Xochitl Fagan documented as of this encounter Plan of Treatment Upcoming Encounters Date Type Department Care Team (Late st Contact Info) Description 04/20/2025 10:00 AM EDT Appointment [facility] Radiology 800 [place] [address] 04/20/2025 10:30 AM EDT Office Visit Pav CC Head, Neck & Respiratory 800 [facility], [address]nd [place] [address] Ирина Lopez MD [address] [place] [address] 07/06/2025 10:40 AM EDT Office Visit Pav CC Head, Neck & Respiratory 800 [facility], [address]nd [place] [address] Nikolai Naranjo MD 800 [facility] [address] [place] [address] documented as of this encounter Visit Diagnoses Not on filedocumented in this encounter Additional Health Concerns Assessment Noted Time A fall risk assessment has been complete d for the patient 02/23/2025 8:48 AM EDT A Body Mass Index follow-up plan has been documented for the patient 04/04/2025 10:30 AM EDT documented as of this encounter Care Teams Cemetery Vault Installer Relationship Specialty Start Date End Date Casa Phillips MD [address] [place] [address] PCP - General 02/22/25 Forrest Nickerson APRN [address] [place] [address] 03/06/23 documented as of this encounter
--- OUTSIDE RECORDS SUMMARY | 2025-04-14 14:15 | XMS_ITS | Encounter Summary ---
Author Organization [facility] Address [address] [place] [address] Care Team Providers Care Pipe Organ Builder Name Role Phone Forrest Nickerson SPECIAL DELIVERY MAIL CARRIER Unavailable [phone] Casa Phillips MD Primary Care Provider [phone] Encounter Details Date Type Department Care Team (Latest Contact Info) Description 03/30/2025 Travel Social History Tobacco Use Types Packs/Day [...] Date of Assessment Author No Risk Indicated 03/30/2025 4:00 PM EDT Sandeep Garcia RN * Question Answer Date of Assessment Author 1. Wish to be (Past 1 Month) No 025 4:00 PM EDT Mart Garcia, RN 2. Non-Specific Active Suici yesica Thoughts (Past 1 Month) No 03/30/2025 4:00 PM EDT Mart Garcia , RN 6. Suicidal Behavior (Lifetime) No 4:00 PM EDT Mart Garcia, RN documented as of this encounter Plan of Treatment Upcoming Encounters Date Type Department Care Team (Late st Contact Info) Description 04/20/2025 10:00 AM EDT Appointment [facility] H Radiology 800 [place] [address] 04/20/2025 10:30 AM EDT Office Visit Pav CC Head, Neck & Respiratory 800 [facility], 2nd [place] [address] Ирина Lopez MD [address] [place] [address] 07/06/2025 10:40 AM EDT Office Visit Pav CC Head, Neck & Respiratory [address] [facility], [address]nd [place] [address] Nikolai Naranjo MD 800 [facility] [address] [place] [address] documented as of this encounter Visit Diagnoses Not on filedocumented in this encounter Additional Health Concerns Assessment Noted Time A fall risk assessment has been complete d for the patient 02/23/2025 8:48 AM EDT A Body Mass Index follow-up plan has been documented for the patient 04/04/2025 10:30 AM EDT documented as of this encounter Care Teams Pipe Organ Builder Relationship Specialty Start Date End Date Casa Phillips MD [address] [place] [address] PCP - General 02/22/25 Forrest Nickerson APRN [address] [place] [address] 03/06/23 documented as of this encounter
--- OUTSIDE RECORDS SUMMARY | 2025-04-14 14:15 | XMS_ITS | Encounter Summary ---
Author Organization [facility] Address [address] [place] [address] Care Team Providers Care Quarry Plug And Feather Driller Name Role Phone Forrest Nickerson BLUNGER MACHINE OPERATOR Unavailable Casa Phillips MD Primary Care Provider [phone] Encounter Details Date Type Department Care Team (Latest Contact Info) Description 03/31/2025 Travel Social History Tobacco Use Types Packs/Day [...] were you homeless or living in a intermediate (including now)? No 03/31/2025 Utilities Answer Date Recorded In the past 12 months has th e [employer], gas, oil, or water company threatened to [...] Date of Assessment Author No Risk Indicated 03/31/2025 8:00 AM EDT Nery Gibbons * Question Answer Date of Assessment Author 1. Wish to be (Past 1 Month) No 025 8:00 AM EDT Nery Eason 2. Non-Specific Active Suici yesica Thoughts (Past 1 Month) No 03/31/2025 8:00 AM EDT Merlin Eason 6. Suicidal Behavior (Lifetime) No 8:00 AM EDT Neyr Eason documented as of this encounter Plan of Treatment Upcoming Encounters Date Type Department Care Team (Late st Contact Info) Description 04/20/2025 10:00 AM EDT Appointment [facility] Radiology 800 [place] [address] 04/20/2025 10:30 AM EDT Office Visit Pav CC Head, Neck & Respiratory 800 [facility], 2nd [place] [address] Ирина Lopez MD [address] [place] [address] 07/06/2025 10:40 AM EDT Office Visit Pav CC Head, Neck & Respiratory 800 [facility], [address]nd [place] [address] Nikolai Naranjo MD [address] [facility] [address] [place] [address] documented as of this encounter Visit Diagnoses Not on filedocumented in this encounter Additional Health Concerns Assessment Noted Time A fall risk assessment has been complete d for the patient 02/23/2025 8:48 AM EDT A Body Mass Index follow-up plan has been documented for the patient 04/04/2025 10:30 AM EDT documented as of this encounter Care Teams Quarry Plug And Feather Driller Relationship Specialty Start Date End Date Casa Phillips MD [address] [place] [address] PCP - General 02/22/25 Forrest Nickerson APRN [address] [place] [address] 03/06/23 documented as of this encounter
--- OUTSIDE RECORDS SUMMARY | 2025-04-14 14:15 | XMS_ITS | Encounter Summary ---
Author Organization [facility] Address [address] [place] [address] Care Team Providers Care Shake Loader Name Role Phone Demetrio Nickersonann Cardenas CELLOPHANER Unavailable [phone] Casa Phillips MD Primary Care Provider [phone] Encounter Details Date Type Department Care Team (Late st Contact Info) Description 04/06/2025 Telephone Pav CC Head, Neck & Respiratory 800 [facility], 2nd [place] [address] Nikolai Naranjo MD 800 [facility] [address] [place] [address] Social History Tobacco Use Types Packs/Day Years [...] any time in the past 12 m [facility], were you homeless or [...] encounter Miscellaneous Notes * Telephone Encounter - Surya Luke - 04/06/2025 12:27 PM EDT Pts daughter leticia called asking if there were any prescriptions that were sent into the pharmacy from dr Shankar. I spoke with nurse Aishwarya to ask- nurse is sending it in now. documented in this encounter Plan of Treatment Upcoming Encounters Date Type Department Care Team (Late st Contact Info) Description 04/20/2025 10:00 AM EDT Appointment PAV H Radiology 800 [place] [phone] 04/20/2025 10:30 AM EDT Office Visit Pav CC Head, Neck & Respiratory 800 [facility], 2nd [place] [address] Ирина Lopez MD [address] [place] [address] 07/06/2025 10:40 AM EDT Office Visit Pav CC Head, Neck & Respiratory 800 [facility], 2nd [place] [address] Nikolai Naranjo MD 800 [facility] [address] [place] [address] documented as of this encounter Visit Diagnoses Not on filedocumented in this encounter Additional Health Concerns Assessment Noted Time A fall risk assessment has been complete d for the patient 04/06/2025 10:27 AM EDT A Body Mass Index follow-up plan has been documented for the patient 04/06/2025 12:11 PM EDT documented as of this encounter Care Teams Shake Loader Relationship Specialty Start Date End Date Casa Phillips MD [address] [place] [address] PCP - General 02/22/25 Forrest Nickerson APRN [address] [place] [address] 03/06/23 documented as of this encounter
--- OUTSIDE RECORDS SUMMARY | 2025-04-14 14:15 | XMS_ITS | Encounter Summary ---
Author Organization [facility] Address [address] [place] [address] Care Team Providers Care Rn Physician Office Name Role Phone Zari Nickersonhéctor Theresa APPLICATION SPECIALIST Unavailable [phone] Casa Phillips MD Primary Care Provider [phone] Encounter Details Date Type Department Care Team (Latest Contact Info) Description 03/29/2025 Travel Social History Tobacco Use Types Packs/Day [...] AM EDT Appointment PAV H Radiology 800 [place] [address] 04/20/2025 10:30 AM EDT Office Visit Pav CC Head, Neck & Respiratory 800 [facility], 2nd [place] [address] Ирина Lopez MD [address] [facility] [address] [place] [address] 07/06/2025 10:40 AM EDT Office Visit Pav CC Head, Neck & Respiratory 800 [facility], 2nd [place] [address] Nikolai Naranjo MD 800 [facility] [address] [place] [address] documented as of this encounter Visit Diagnoses Not on filedocumented in this encounter Additional Health Concerns Assessment Noted Time A fall risk assessment has been complete d for the patient 02/23/2025 8:48 AM EDT A Body Mass Index follow-up plan has been documented for the patient 04/04/2025 10:30 AM EDT documented as of this encounter Care Teams Rn Physician Office Relationship Specialty Start Date End Date Casa Phillips MD [address] [place] [address] PCP - General 02/22/25 Forrest Nickerson APRN [address] [place] [address] 03/06/23 documented as of this encounter
--- OUTSIDE RECORDS SUMMARY | 2025-04-14 14:15 | XMS_ITS | Encounter Summary ---
Author Organization [facility] Address [address] [place] [address] Care Team Providers Care Sales Merchandising Specialist Name Role Phone Forrest Nickerson DOG LICENSE OFFICER SUPERVISOR Unavailable [phone] Casa Phillips MD Primary Care Provider [phone]- [phone] Encounter Details Date Type Department Care Team (Latest Contact Info) Description 04/06/2025 Travel Social History Tobacco Use Types Packs/Day [...] any time in the past 12 m [facility], were you homeless or living in a [facility] (including now)? No 03/31/2025 Utilities Answer Date [...] AM EDT Appointment PAV H Radiology 800 [place] [address] 04/20/2025 10:30 AM EDT Office Visit Pav CC Head, Neck & Respiratory 800 [facility], 2nd [place] [address] Ирина Lopez MD [address] [facility] [address] [place] [address] 07/06/2025 10:40 AM EDT Office Visit Pav CC Head, Neck & Respiratory 800 [facility], 2nd [place] [address] Nikolai Naranjo MD 800 [facility] [address] [place] [address] documented as of this encounter Visit Diagnoses Not on filedocumented in this encounter Additional Health Concerns Assessment Noted Time A fall risk assessment has been complete d for the patient 04/06/2025 10:27 AM EDT A Body Mass Index follow-up plan has been documented for the patient 04/06/2025 12:11 PM EDT documented as of this encounter Care Teams Sales Merchandising Specialist Relationship Specialty Start Date End Date Casa Phillips MD [address] [place] [address] PCP - General 02/22/25 Forrest Nickerson APRN [address] [place] [address] 03/06/23 documented as of this encounter
--- OUTSIDE RECORDS SUMMARY | 2025-04-14 14:16 | XMS_ITS | Encounter Summary ---
Author Organization [facility] Address [address] [place] [address] Care Team Providers Care Hemodialysis Lab Technician Name Role Phone Zari Nickersonhéctor Theresa ENT SURGEON Unavailable [phone] Casa Phillips MD Primary Care Provider [phone] Encounter Details Date Type Department Care Team (Latest Contact Info) Description 03/18/2025 Travel Social History Tobacco Use Types Packs/Day [...] AM EDT Appointment PAV H Radiology 800 [place] [address] 04/20/2025 10:30 AM EDT Office Visit Pav CC Head, Neck & Respiratory 800 [facility], 2nd [place] [address] Ирина Lopez MD [address] [facility] [address] [place] [address] 07/06/2025 10:40 AM EDT Office Visit Pav CC Head, Neck & Respiratory 800 [facility], 2nd [place] [address] Nikolai Naranjo MD 800 [facility] [address] [place] [address] documented as of this encounter Visit Diagnoses Not on filedocumented in this encounter Additional Health Concerns Assessment Noted Time A fall risk assessment has been complete d for the patient 02/23/2025 8:48 AM EDT A Body Mass Index follow-up plan has been documented for the patient 02/25/2025 5:11 PM EDT documented as of this encounter Care Teams Hemodialysis Lab Technician Relationship Specialty Start Date End Date Casa Phillips MD [address] [place] [address] PCP - General 02/22/25 Forrest Nickerson APRN [address] [place] [address] 03/06/23 documented as of this encounter
--- OUTSIDE RECORDS SUMMARY | 2025-04-14 14:16 | XMS_ITS | Encounter Summary ---
Author Organization [facility] Address [address] [place] [address] Care Team Providers Care Warping Mill Operator Name Role Phone Zari Nickersonhéctor Theresa INTERVENTIONAL RADIOLOGY TECHNOLOGIST Unavailable [phone] Casa Phillips MD Primary Care Provider [phone] Encounter Details Date Type Department Care Team (Late st Contact Info) Description 03/04/2025 Results Follow-Up Pav CC Head, Neck & Respiratory 800 [facility], 2nd [place] [address] Nikolai Naranjo MD 800 [facility] [place] [address] Social History Tobacco Use Types Packs/Day Years [...] AM EDT Appointment PAV H Radiology 800 [place] [address] 04/20/2025 10:30 AM EDT Office Visit Pav CC Head, Neck & Respiratory 800 [facility], 2nd [place] [address] Ирина Lopez MD [address] [place] [address] 07/06/2025 10:40 AM EDT Office Visit Pav CC Head, Neck & Respiratory 800 [facility], 2nd [place] [address] Nikolai Naranjo MD 800 [facility] [address] [place] [address] documented as of this encounter Visit Diagnoses Not on filedocumented in this encounter Additional Health Concerns Assessment Noted Time A fall risk assessment has been complete d for the patient 02/23/2025 8:48 AM EDT A Body Mass Index follow-up plan has been documented for the patient 02/25/2025 5:11 PM EDT documented as of this encounter Care Teams Warping Mill Operator Relationship Specialty Start Date End Date Casa Phillips MD [address] [place] [address] PCP - General 02/22/25 Forrest Nickerson APRN [address] [place] [address] 03/06/23 documented as of this encounter
--- OUTSIDE RECORDS SUMMARY | 2025-04-14 14:16 | XMS_ITS | Encounter Summary ---
Author Organization [facility] Address [address] [place] [address] Care Team Providers Care Logistics Center Manager Name Role Phone Zari Nickersonhéctor Theresa PRECISION JIG GRINDER Unavailable [phone] Casa Phillips MD Primary Care Provider [phone] Encounter Details Date Type Department Care Team (Latest Contact Info) Description 02/23/2025 Travel Social History Tobacco Use Types Packs/Day [...] AM EDT Appointment PAV H Radiology 800 [place] [address] 04/20/2025 10:30 AM EDT Office Visit Pav CC Head, Neck & Respiratory 800 [facility], 2nd [place] [address] Ирина Lopez MD [address] [facility] [address] [place] [address] 07/06/2025 10:40 AM EDT Office Visit Pav CC Head, Neck & Respiratory 800 [facility], 2nd [place] [address] Nikolai Naranjo MD 800 [facility] [address] [place] [address] documented as of this encounter Visit Diagnoses Not on filedocumented in this encounter Additional Health Concerns Assessment Noted Time A fall risk assessment has been complete d for the patient 02/23/2025 8:48 AM EDT A Body Mass Index follow-up plan has been documented for the patient 02/25/2025 5:11 PM EDT documented as of this encounter Care Teams Logistics Center Manager Relationship Specialty Start Date End Date Casa Phillips MD [address] [place] [address] PCP - General 02/22/25 Forrest Nickerson APRN [address] [place] [address] 03/06/23 documented as of this encounter
--- OUTSIDE RECORDS SUMMARY | 2025-04-14 14:16 | XMS_ITS | Encounter Summary ---
Author Organization [facility] Address [address] [place] [address] Care Team Providers Care General Technician Name Role Phone Demetrio Nickersonann Cardenas PHOTO STUDIO ASSISTANT Unavailable [phone] Casa Phillips MD Primary Care Provider [phone] Encounter Details Date Type Department Care Team (Late st Contact Info) Description 03/02/2025 Telephone Pav CC Head, Neck & Respiratory 800 [facility], 2nd [place] [address] Nikolai Naranjo MD 800 [facility] [address] [place] [address] Social History Tobacco Use Types [...] encounter Miscellaneous Notes * Telephone Encounter - Kirstie Trejo RN - 03/03/2025 4:38 PM EDT RN spoke w/ pt's daughter. RN went through paperwork with pt's daughter to make sure everything wasfilled out correctly for what was medically correct and what was needed for her job/leave. New copyof signed paperwork emailed to pt's daughter. Pt verbalized understanding and agreeable to plan. * Telephone Encounter - Wendy Garay - 03/03/2025 2:44 PM EDT Patients daughter is calling back again to see when the paperwork will be completed. * Telephone Encounter - Windy Sexton - 03/02/2025 3:22 PM EDT Patient's daughter called wondering about the [facility] paperwork. Please call back. documented in this encounter Plan of Treatment Upcoming Encounters Date Type Department Care Team (Late st Contact Info) Description 04/20/2025 10:00 AM EDT Appointment PAV H Radiology 800 [place] [address] 04/20/2025 10:30 AM EDT Office Visit Pav CC Head, Neck & Respiratory 800 [facility], 2nd [place] [address] Ирина Lopez MD [address] [facility] [address] [place] [address] 07/06/2025 10:40 AM EDT Office Visit Pav CC Head, Neck & Respiratory 800 [facility], 2nd [place] [address] Nikolai Naranjo MD 800 [facility] [address] [place] [address] documented as of this encounter Visit Diagnoses Not on filedocumented in this encounter Additional Health Concerns Assessment Noted Time A fall risk assessment has been complete d for the patient 02/23/2025 8:48 AM EDT A Body Mass Index follow-up plan has been documented for the patient 02/25/2025 5:11 PM EDT documented as of this encounter Care Teams General Technician Relationship Specialty Start Date End Date Casa Phillips MD [address] [place] [address] PCP - General 02/22/25 Forrest Nickerson APRN [address] [place] [address] 03/06/23 documented as of this encounter
--- OUTSIDE RECORDS SUMMARY | 2025-04-14 14:16 | XMS_ITS | Encounter Summary ---
Author Organization [facility] Address [address] [place] [address] Care Team Providers Care Training Facilitator Name Role Phone belinda Demetrioann Cardenas RANGE SCIENTIST Unavailable [phone] Casa Phillips MD Primary Care Provider [phone] Encounter Details Date Type Department Care Team (Late Contact Info) Description 03/03/2025 Telephone Pav CC Head, Neck & Respiratory 800 [facility], 2nd [place] [address] Kirstie Trejo, RN Social History Tobacco Use Types Packs/Day Years [...] Upcoming Encounters Date Type Department Care Team ([facility] Contact Info) Description 04/20/2025 10:00 AM EDT Appointment PAV H Radiology 800 [place] [address] 04/20/2025 10:30 AM EDT Office Visit Pav CC Head, Neck & Respiratory 800 [facility], 2nd [place] [address] Ирина Lopez MD [address] [place] [address] 07/06/2025 10:40 AM EDT Office Visit Pav CC Head, Neck & Respiratory 800 [facility], 2nd [place] [address] Nikolai Naranjo MD [address] [place] [address] documented as of this encounter Visit Diagnoses Not on filedocumented in this encounter Additional Health Concerns Assessment Noted Time A fall risk assessment has been complete d for the patient 02/23/2025 8:48 AM EDT A Body Mass Index follow-up plan has been documented for the patient 02/25/2025 5:11 PM EDT documented as of this encounter Care Teams Training Facilitator Relationship Specialty Start Date End Date Casa Phillips MD [address] [place] [address] PCP - General 02/22/25 Forrest Nickerson APRN [address] [place] [address] 03/06/23 documented as of this encounter
--- OUTSIDE RECORDS SUMMARY | 2025-04-14 14:16 | XMS_ITS | Encounter Summary ---
Author Organization [facility] Address [address] [place] [address] Care Team Providers Care Food Bagging Machine Operator Name Role Phone Demetrio trevinoann Theresa TAMPING MACHINE OPERATOR ROAD FORMS Unavailable [phone] Casa Phillips MD Primary Care Provider [phone] Encounter Details Date Type Department Care Team (Late st Contact Info) Description 03/11/2025 Telephone Pav CC Head, Neck & Respiratory [address], 2nd [place] [address] Ирина Lopez MD [address] [facility] [address] [place] [address] Social History Tobacco Use Types Packs/Day Years [...] Telephone Encounter - Kirstie Trejo RN - 03/12/2025 3:33 PM EDT RN spoke w/ pt's daughter. Pt's daughter reported some updates that needed to be made to FMLA paperwork. RN went through paperwork with pt's daughter on the phone and made necessary changes. New copyof paperwork emailed to pt's daughter. RN encouraged pt's daughter to call back with any other issues or questions. Pt's daughter verbalized understanding and agreeable to plan. * Telephone Encounter - Kimmy Kline - 03/12/2025 11:04 AM EDT Pt daughter Nora needs a call back regarding FMLA specific adjustments to letter needed. [phone], please call after 3:00pm * Telephone Encounter - Kimmy Kline - 03/11/2025 3:59 PM EDT Patient Phone Message Reason for Call: Daughter needs a call back from clinical care team to update/adjust FMLA for pt's caregiver Nora. Best contact number and optimal time of day to reach caller: [phone], Note: Please do not reply to this message. Follow-up communication and further actions as a result of this message need to be communicated with the patient directly, if the patient is not active onMyChart. If the patient is active on MyChart, they will receive notification of the communication/outcome via [employer]. documented in this encounter Plan of Treatment Upcoming Encounters Date Type Department Care Team (Late st Contact Info) Description 04/20/2025 10:00 AM EDT Appointment PAV H Radiology 800 [place] [address] 04/20/2025 10:30 AM EDT Office Visit Pav CC Head, Neck & Respiratory 800 [facility], 2nd [place] [address] Ирина Lopez MD [address] [facility] [address] [place] [address] 07/06/2025 10:40 AM EDT Office Visit Pav CC Head, Neck & Respiratory [address] 2nd [place] [address] Nikolai Naranjo MD 800 [facility] [address] [place] [address] documented as of this encounter Visit Diagnoses Not on filedocumented in this encounter Additional Health Concerns Assessment Noted Time A fall risk assessment has been complete d for the patient 02/23/2025 8:48 AM EDT A Body Mass Index follow-up plan has been documented for the patient 02/25/2025 5:11 PM EDT documented as of this encounter Care Teams Food Bagging Machine Operator Relationship Specialty Start Date End Date Casa Phillips MD [address] [place] [address] PCP - General 02/22/25 Forrest Nickerson APRN [address] [place] [address] 03/06/23 documented as of this encounter
--- OUTSIDE RECORDS SUMMARY | 2025-04-14 14:16 | XMS_ITS | Encounter Summary ---
Author Organization [facility] Address [address] [place] [address] Care Team Providers Care Help Desk Manager Name Role Phone Zari Nickersonhéctor Theresa RESEARCH AND DEVELOPMENT MANAGER Unavailable [phone] Casa Phillips MD Primary Care Provider [phone] Encounter Details Date Type Department Care Team (Latest Contact Info) Description 02/24/2025 Travel Social History Tobacco Use Types Packs/Day [...] AM EDT Appointment PAV H Radiology 800 [place] [address] 04/20/2025 10:30 AM EDT Office Visit Pav CC Head, Neck & Respiratory 800 [facility], 2nd [place] [address] Ирина Lopez MD [address] [facility] [address] [place] [address] 07/06/2025 10:40 AM EDT Office Visit Pav CC Head, Neck & Respiratory 800 [facility], 2nd [place] [address] Nikolai Naranjo MD 800 [facility] [address] [place] [address] documented as of this encounter Visit Diagnoses Not on filedocumented in this encounter Additional Health Concerns Assessment Noted Time A fall risk assessment has been complete d for the patient 02/23/2025 8:48 AM EDT A Body Mass Index follow-up plan has been documented for the patient 02/25/2025 5:11 PM EDT documented as of this encounter Care Teams Help Desk Manager Relationship Specialty Start Date End Date Casa Phillips MD [address] [place] [address] PCP - General 02/22/25 Forrest Nickerson APRN [address] [place] [address] 03/06/23 documented as of this encounter
--- OUTSIDE RECORDS SUMMARY | 2025-04-14 14:16 | XMS_ITS | Encounter Summary ---
Author Organization [facility] Address [address] [place] [address] Care Team Providers Care Gumming Machine Operator Name Role Phone Demetrio Nickersonann Cardenas PRODUCTION LINE WORKER Unavailable Casa Phillips MD Primary Care Provider [phone] Encounter Details Date Type Department Care Team (Late st Contact Info) Description 03/02/2025 Telephone Pav CC Head, Neck & Respiratory 800 [facility], 2nd [place] [address] Nikolai Naranjo MD 800 [facility] [address] [place] [address] Social History Tobacco Use Types Packs/Day Years [...] encounter Miscellaneous Notes * Telephone Encounter - Meghna Armendariz - 03/02/2025 8:43 AM EDT Patient Phone Message Reason for Call: Pt's daughter called to request more information on the [place] paperwork. She says the Part B section needs filled out and have the MD resign and date, and then refax the paperwork. Itneeds to be broken down by how many appointments per month and how many hours, etc. Pt also needs to know to go to the CT scan scheduled at [facility]. He has surgery 03/29 and had a MRI. They are wondering to know if they still need that scan. Best contact number and optimal time of day to reach caller: [phone] Note: Please do not reply to this message. Follow-up communication and further actions as a result of this message need to be communicated with the patient directly, if the patient is not active onMyChart. If the patient is active on MyChart, they will receive notification of the communication/outcome via [employer]. documented in this encounter Plan of Treatment Upcoming Encounters Date Type Department Care Team ([facility] st Contact Info) Description 04/20/2025 10:00 AM EDT Appointment PAV H Radiology 800 [place] [address] 04/20/2025 10:30 AM EDT Office Visit Pav CC Head, Neck & Respiratory 800 [facility], 2nd [place] [address] Ирина Lopez MD [address] [facility] [address] [place] [address] 07/06/2025 10:40 AM EDT Office Visit Pav CC Head, Neck & Respiratory 800 [facility], 2nd [place] [address] Nikolai Naranjo MD 800 [facility] [address] [place] [address] documented as of this encounter Visit Diagnoses Not on filedocumented in this encounter Additional Health Concerns Assessment Noted Time A fall risk assessment has been complete d for the patient 02/23/2025 8:48 AM EDT A Body Mass Index follow-up plan has been documented for the patient 02/25/2025 5:11 PM EDT documented as of this encounter Care Teams Gumming Machine Operator Relationship Specialty Start Date End Date Casa Phillips MD [address] [place] [address] PCP - General 02/22/25 Forrest Nickerson APRN [address] [place] [address] 03/06/23 documented as of this encounter
--- OUTSIDE RECORDS SUMMARY | 2025-04-14 14:16 | XMS_ITS | Encounter Summary ---
Author Organization [facility] Address [address] [place] [address] Care Team Providers Care Box Worker Name Role Phone Zari Nickersonhéctor Theresa WORKERS' COMPENSATION COMMISSIONER Unavailable [phone] Casa Phillips MD Primary Care Provider [phone] Encounter Details Date Type Department Care Team (Latest Contact Info) Description 02/22/2025 Travel Social History Tobacco Use Types Packs/Day [...] AM EDT Appointment PAV H Radiology [address] [place] [address] 04/20/2025 10:30 AM EDT Office Visit Pav [facility] Head[facility] Neck & Respiratory [address] [facility], 2nd [place] [address] Ирина Lopez MD [address] [facility] [address] [place] [address] 07/06/2025 10:40 AM EDT Office Visit Pav [facility] Head, Neck & Respiratory [address] [facility], 2nd [place] [address] Nikolai Naranjo MD [address] [facility] [address] [place] [address] documented as of this encounter Visit Diagnoses Not on filedocumented in this encounter Additional Health Concerns Assessment Noted Time A fall risk assessment has been complete d for the patient 01/07/2025 1:22 PM EDT A Body Mass Index follow-up plan has been documented for the patient 02/05/2025 10:35 AM EDT documented as of this encounter Care Teams Box Worker Relationship Specialty Start Date End Date Casa Phillips MD [address] [place] [address] PCP - General 02/22/25 Forrest Nickerson APRN [address] [place] [address] 03/06/23 documented as of this encounter
[2025-04-14 14:45] LABS: Hematocrit 32.2 % (42.0-52.0); Hemoglobin 10.0 g/dL (14.1-18.0); Immature Granulocytes % 0.7 %; Mean Corpuscular HGB Conc 31.1 g/dL (31.8-35.4); Mean Corpuscular Hemoglobin 28.1 pg (27.0-31.2); Mean Corpuscular Volume 90.4 fl (80-94); Nucleated Red Blood Cells % 0 %; Platelet Count 455 K/mm3 (142-424); Red Blood Count 3.56 M/mm3 (4.60-6.20); Red Cell Distribution Width-SD 44.8 fL; White Blood Count 5.6 K/mm3 (4.8-10.8)
[2025-04-14 15:29] LABS: Alanine Aminotransferase 19 U/L (12-78); Albumin Level 3.8 g/dl (3.5-5.0); Albumin/Globulin Ratio 1.5 (1.1-1.8); Alkaline Phosphatase 88 U/L (38-126); Anion Gap 13.0 mEq/L (5-15); Aspartate Amino Transferase 27 U/L (17-59); Bilirubin,Total 0.8 mg/dl (0.2-1.3); Blood Urea Nitrogen 23 mg/dl (9-20); Calcium 9.6 mg/dl (8.4-10.2); Carbon Dioxide 31 mmol/L (22.0-30.0); Chloride 96 mmol/L (98-107); Creatinine,Serum 1.30 mg/dl (0.66-1.25); Estimated Glomerular Filt Rate 53 ml/min (>60); GFR (African American) 65 ML/MIN (>60); Globulin 2.5 g/dL (1.3-3.2); Glucose 177 mg/dl (74-100); Potassium 5.0 mmoL/L (3.5-5.1); Sodium 135 mmol/L (136-145); Total Protein,Serum 6.3 g/dl (6.3-8.2)
== END 2025-04-14 23:59 | disposition home or self-care (01) ==
LOC: LAB 14:07
PROVIDERS: PCP Family Medicine; Visit Provider Internal Medicine Medical Oncology
DX: C80.1 Malignant (primary) neoplasm, unspecified (principal)
CPT/HCPCS: 36415; 80053; 85025

== ENCOUNTER 2025-04-27 08:37 | Outpatient (CLI) | payer MEDICARE, SELFPAY ==
--- OUTSIDE RECORDS SUMMARY | 2025-03-29 09:43 | XMS_ITS | Encounter Summary ---
Author Organization [facility] Address [address] [place] [address] Care Team Providers Care Maintenance Technician 2Nd Shift Name Role Phone Forrest Nickerson CIRCULAR KNITTER Unavailable [phone] Casa Phillips MD Primary Care Provider [phone] Reason for Visit * Auth/Cert (Routine) Specialty Diagnoses / Procedures Referred By Contac t Referred To Contact Diagnoses Non-small cell cancer of left lung (CMS/HCC) Non-small cell cancer of left lung Procedures [place] THORACOSCOPY SURG LOBECTOMY LEFT VATS LOBECTOMY Ирина Lopez MD [address] [address] Phone: tel: fax: [facility] [address] [place] [address] Phone: tel: Referral ID Status Reason Start Date Expiration Date Visits Re quested Visits Authorized [id number] 1 1 Encounter Details Date Type Department Care Team (Latest Contact Info) Description 03/29/2025 9:43 AM EDT - 04/04/2025 12:18 PM EDT Hospital Encounter [facility] In[facility] [address] [place] [id number] Ирина Lopez MD [address] [address] Non-small cell cancer of left lung (CMS/HCC) [...] any time in the past 12 m [facility], were you homeless or living in a skilled nursing (including now)? No 03/31/2025 Utilities Answer Date Recorded In the past 12 months has th e electric, gas, oil, or water [employer] threatened to shut off services in your [...] Clinic discharge # - For urgent questions/concerns: [facility] hotline: , option 4 - ask for the thoracic surgeon quality control tech raw materials. documented in this encounter Medications at Time [...] by mouth daily. 30 capsule 04/04/2025 05/04/2025 acetaminophen (Tylenol) 500 MG tablet Take 2 tablets by mouth every 6 hours for 14 days. 112 tablet 04/04/2025 04/18/2025 senna-docusate (Betty-Colace) 8.6-50 MG tablet Take 2 tablets by mouth 2 times a day for 14 days. 56 tablet 04/04/2025 04/18/2025 documented as of this encounter Miscellaneous Notes * Chester Lyons RN - 04/04/2025 10:30 AM EDT Images from the original note were not included. [id number] Surgery for Lung Cancer Surgery can be [...] holidays. Last Reviewed Date: 2023 00:00:00 ?? 2074-4201 [employer]. All rights reserved. This information is not intended as a substitute for professional medical care. Always follow your healthcare professional's instructions. * Neida Garland - Chester Cuevas RN - 04/04/2025 10:29 AM EDT Images from the original note were not included. [id number] Thoracotomy Thoracotomy is surgery used to diagnose [...] . Last Reviewed Date: 2024 00:00:00 ?? [id number] [employer]. All rights reserved. This information is not intended as a substitute for professional medical care. Always follow your healthcare professional's instructions. * Neida Garland - Chester Cuevas RN - 04/04/2025 10:29 AM EDT Images from the original note were not included. [id number] Lung Cancer: Video-Assisted and Robotic-Assisted Thoracic Surgery [...] you will hurt less after surgery. ? [facility]. You can likely go home [...] surgery because the cuts are small. ? [facility]. You can likely go home [...] of surgery you need. Make sure the [facility] have experience in VATS or [...] future. Last Reviewed Date: 2023 00:00:00 ?? 8653-8483 [employer]. All rights reserved. This information is not intended as a substitute for professional medical care. Always follow your healthcare professional's instructions. * Neida SandhuALEXIS - Chester Cuevas RN - 04/04/2025 10:24 AM EDT Images from the original note were not included. [id number] Tamsulosin Brand Name(s): Flomax??, Su?? (as a [...] and out of their sight and reach. [email or web address] Unneeded medications should be disposed of in [...] be awakened, immediately call emergency services at [phone]. Symptoms of overdose may include: ? dizziness [...] of all of the prescription and nonprescription (qxkv-vwb-tineimp) medicines you are taking, as well as [...] or pharmacist about specific clinical use. The [employer] represents that the information provided hereunder was formulated with a reasonable standard of care, and in conformity with professional standards in the field. The [employer] makes no representations or warranties, express or implied, including, but not limited to, any implied warranty of merchantability and/or fitness for a particular purpose, with respect to such information and specifically disclaims all such warranties. Users are advised that decisions regarding drug therapy are complex medical decisions requiring the independent, informed decision of an appropriate health day care center director, and the information is provided for informational purposes only. The entire monograph for a drug should be reviewed for a thorough understanding of the drug's actions, uses and side effects. The [employer] does not endorse or recommend the use of any drug.The information is not a substitute for medical care. AHFS?? Patient Medication Information?. ?? Copyright, 2023. The [employer]??, [address], [address], [place], [place]. All Rights Reserved. Duplication for commercial use must be authorized by [facility]. Selected Revisions: October 28, 2017. AHFS?? Patient Medication Information?. ?? Copyright, 2024 * Chester Lyons RN - 04/04/2025 10:24 AM EDT Images from the original note were not included. [id number] Senna Brand Name(s): Black Aidanght??, Ex-Lax??, Baca's [...] and out of their sight and reach. [email or web address] Unneeded medications should be disposed of in [...] be awakened, immediately call emergency services at 321. What OTHER INFORMATION should I know? Ask your pharmacist any questions you have about senna. It is important for you to keep a written list of all of the prescription and nonprescription (mxxr-knl-kncudwn) medicines you are taking, as well as [...] or pharmacist about specific clinical use. The [employer] represents that the information provided hereunder was formulated with a reasonable standard of care, and in conformity with professional standards in the field. The [employer] makes no representations or warranties, express or implied, including, but not limited to, any implied warranty of merchantability and/or fitness for a particular purpose, with respect to such information and specifically disclaims all such warranties. Users are advised that decisions regarding drug therapy are complex medical decisions requiring the independent, informed decision of an appropriate health day care center director, and the information is provided for informational purposes only. The entire monograph for a drug should be reviewed for a thorough understanding of the drug's actions, uses and side effects. The [employer] does not endorse or recommend the use of any drug.The information is not a substitute for medical care. AHFS?? Patient Medication Information?. ?? Copyright, 2023. The [employer]??, [address], [address], [place], [place]. All Rights Reserved. Duplication for commercial use must be authorized by [facility]. Selected Revisions: April 02, 2024. AHFS?? Patient Medication Information?. ?? Copyright, 2024 * Neida Garland - Chester Cuevas RN - 04/04/2025 10:24 AM EDT Images from the original note were not included. [id number] Polyethylene Glycol 3350 Brand Name(s): MiraLax?? PEG [...] of all of the prescription and nonprescription (isxk-kku-hzctrhf) medicines you are taking, as well as [...] or pharmacist about specific clinical use. The [employer] represents that the information provided hereunder was formulated with a reasonable standard of care, and in conformity with professional standards in the field. The [employer] makes no representations or warranties, express or implied, including, but not limited to, any implied warranty of merchantability and/or fitness for a particular purpose, with respect to such information and specifically disclaims all such warranties. Users are advised that decisions regarding drug therapy are complex medical decisions requiring the independent, informed decision of an appropriate health day care center director, and the information is provided for informational purposes only. The entire monograph for a drug should be reviewed for a thorough understanding of the drug's actions, uses and side effects. The [employer] does not endorse or recommend the use of any drug.The information is not a substitute for medical care. AHFS?? Patient Medication Information?. ?? Copyright, 2023. The [employer]??, [address], [address], [place], [place]. All Rights Reserved. Duplication for commercial use must be authorized by [facility]. Selected Revisions: December 27, 2015. AHFS?? Patient Medication Information?. ?? Copyright, 2024 * Kaykaynatasha Chester Little RN - 04/04/2025 10:24 AM EDT 1087 Oxycodone Oral Tablet, Immediate Release Brand Names: Oxaydo, Roxicodone What is this medicine? Oxycodone (je-l-PWU-done) is an opioid pain reliever. It is [...] a special medication guide each time you hand picker this medicine. ? Overdosage: Taking too [...] should report to your doctor or health day care center director as soon as possible: ? allergic reactions [...] attention (report to your doctor or health day care center director if they continue or are bothersome): ? constipation ? dry mouth ? itching ? nausea, vomiting ? upset stomach This list may not describe all possible side effects. Call your doctor for medical advice about side effects. You may report side effects to FDA at 9-956-NUC-3255. Where should I keep my medicine? This [...] location. To find a disposal location, visit [employer]/formerly [facility]/[place]. If you cannot take unused medicine to [...] from the original note were not included. [id number] Methocarbamol Brand Name(s): Robaxin??; also available generically [...] of all of the prescription and nonprescription (jbug-miz-knpernm) medicines you are taking, as well as [...] or pharmacist about specific clinical use. The [employer] represents that the information provided hereunder was formulated with a reasonable standard of care, and in conformity with professional standards in the field. The [employer] makes no representations or warranties, express or implied, including, but not limited to, any implied warranty of merchantability and/or fitness for a particular purpose, with respect to such information and specifically disclaims all such warranties. Users are advised that decisions regarding drug therapy are complex medical decisions requiring the independent, informed decision of an appropriate health day care center director, and the information is provided for informational purposes only. The entire monograph for a drug should be reviewed for a thorough understanding of the drug's actions, uses and side effects. The [employer] does not endorse or recommend the use of any drug.The information is not a substitute for medical care. AHFS?? Patient Medication Information?. ?? Copyright, 2023. The [employer]??, [address], [address], [place], [place]. All Rights Reserved. Duplication for commercial use must be authorized by [facility]. Selected Revisions: May 28, 2017. AHFS?? Patient Medication Information?. ?? Copyright, 2024 * Neida Garland - Chester Cuevas RN - 04/04/2025 10:23 AM EDT Images from the original note were not included. [id number] Acetaminophen Brand Name(s): Actamin??, Feverall??, Panadol??, Tempra Quicklets??, Tylenol??, Dayquil?? (as a combination product containing Acetaminophen, Dextromethorphan, Pseudoephedrine), NyQuil Cold/Flu Relief?? (as a combination product containing Acetaminophen, Dextromethorphan, Doxylamine), Percocet?? (as a combination product containing Acetaminophen, Oxycodone) APAP, X-mjbxkc-mijl-aminophenol, Paracetamol ?? This branded product is no [...] measuring cup or syringe provided by the hot metal charger to measure each dose of the solution [...] of all of the prescription and nonprescription (mejz-orp-mgxxpmk) medicines you are taking, as well as [...] or pharmacist about specific clinical use. The [employer] represents that the information provided hereunder was formulated with a reasonable standard of care, and in conformity with professional standards in the field. The [employer] makes no representations or warranties, express or implied, including, but not limited to, any implied warranty of merchantability and/or fitness for a particular purpose, with respect to such information and specifically disclaims all such warranties. Users are advised that decisions regarding drug therapy are complex medical decisions requiring the independent, informed decision of an appropriate health day care center director, and the information is provided for informational purposes only. The entire monograph for a drug should be reviewed for a thorough understanding of the drug's actions, uses and side effects. The [employer] does not endorse or recommend the use of any drug.The information is not a substitute for medical care. AHFS?? Patient Medication Information?. ?? Copyright, 2023. The [employer]??, [address], [address], [place], [place]. All Rights Reserved. Duplication for commercial use must be authorized by [facility]. Selected Revisions: June 28, 2023. AHFS?? Patient Medication Information?. ?? Copyright, 2024 * Discharge Summary - Everett Marie DO - 04/04/2025 9:13 AM EDT Hospitalization Admit Date/Time: 03/29/2025 9:43 AM Admitting Attending: Ирина Lopez Discharge Date: 04/04/2025 Discharge Attending Physician: Ирина Lopez MD PCP name and Address: Casa Phillips MD [address] / [place] [address] Referring provider name and address: No referring [...] Your Medications These medications were sent to [facility] - [place], [place] - [address] [facility] [id number] acetaminophen 500 MG tablet methocarbamol 500 MG [...] Clinic discharge # - For urgent questions/concerns: [facility] hotline: , option 4 - ask for the thoracic surgeon quality control tech raw materials. Outpatient Follow-Up Future Appointments Date Time Provider Department Center 04/06/2025 10:40 AM Nikolai Naranjo MD [facility] Lin Test Results Pending At Discharge Pending [...] Mobility Exam: Supine to Sit Level of Crozier: Stand-by assist Physical/Nonphysical Assist: Set-up required, HOB elevated Assistive Device: Bed rails Transfers Transfer Exam: Sit to stand Level of Crozier: Stand-by assist Physical/Nonphysical Assist: Verbal Cues, Nonverbal cues (demo/gestures), Minimal cues Assistive Device: Rollator Transfer Exam: Stand to Sit Level of Crozier: Stand-by assist Physical/Nonphysical Assist: Verbal Cues, Nonverbal [...] to areas of treatment space. Standardized Assessments [facility] 6-Clicks Mobility Assessment Difficulty patient has [...] 3-5 steps with a railing?: A little [facility] 6-Clicks Mobility Assessment Total : 21 [...] with DME. Referrals sent to [facility] for Rollator to be delivered to bedside today. * Progress Notes - Patricia Torres - 04/03/2025 11:49 AM EDT Occupational Therapy Treatment Patient Name: Cole Feliz Jr. Today's Date: 04/03/2025 OT Discharge Recommendations: Home with 24 hour assistance Equipment Recommended: Rollator Subjective Pt consent to tx Participants in Care Family/Caregiver Present: Yes Family/Caregiver: Adult Daughter Curb Builder: Not Applicable Presentation Oxygen Therapy: None (Room [...] Mobility Exam: Supine to Sit Level of Crozier: Stand-by assist Physical/Nonphysical Assist: Set-up required, HOB elevated Transfers Transfer Exam: Sit to stand Level of Crozier: Stand-by assist Physical/Nonphysical Assist: Verbal Cues, Nonverbal cues (demo/gestures), Minimal cues Assistive Device: Rollator Transfer Exam: Stand to Sit Level of Crozier: Stand-by assist Physical/Nonphysical Assist: Verbal Cues, Nonverbal [...] reaches 6. Pt verbalizes understanding. Standardized Assessments [facility] 6-Click Daily Activities Help from Other: Don/Doff Regular Lower Body Clothings: Little Help From Other: Bathing: Little Help From Other: Toileting: Little Help From Other: Don/Doff Upper Body Clothings: Little Help From Other: Grooming: Little Help From Other: Eating Meals: None [facility] 6 Click - Daily Activities Score: [...] from the original note were not included. [facility] Department of Surgery Section of Thoracic Surgery Progress Note 04/03/25 Cole Feilz Jr. History of Present Illness Cole Feliz [...] disease, without long-term current use of insulin ([facility]) Microalbuminuria Tobacco use disorder Second [...] disease, without long-term current use of insulin ([facility]) Anemia Electrolyte abnormality Plan: - [...] Mobility Bed Mobility Exam: Scooting/Bridging Level of Crozier: Minimum assist (75% patient's effort) Physical/Nonphysical Assist: Verbal Cues, Nonverbal cues (demo/gestures), Minimal cues Bed Mobility Exam: Supine to Sit Level of Crozier: Minimum assist (75% patient's effort) Physical/Nonphysical Assist: Verbal Cues, Nonverbal cues (demo/gestures), HOB elevated Bed Mobility Exam: Sit to Supine Level of Crozier: Minimum assist (75% patient's effort) Physical/Nonphysical Assist: Verbal Cues, Minimal cues Transfers Transfer Exam: Sit to stand Level of Crozier: Minimum assist (75% patient's effort) Physical/Nonphysical Assist: Verbal Cues, Nonverbal cues (demo/gestures), Minimal cues Assistive Device: Rollator Transfer Exam: Stand to Sit Level of Crozier: Minimum assist (75% patient's effort) Physical/Nonphysical Assist: [...] Level of Mobility Ambulatory- household only Mobility Crozier Independent gait without device History of Falls [...] Ambulating in-room distances since last PT treatment. Curb Builder (if applicable) OBJECTIVE & INTERVENTIONS PAIN Pt was without complaints of pain throughout the PT treatment. DELIRIUM SCREENING Curtis Agitation Sedation Scale (RASS): Alert and calm Feature 3: Altered Level of Consciousness: Negative THERAPEUTIC ACTIVITY Treatment Minutes 25 BED MOBILITY Level of Crozier Physical/Non- physical Assist Adaptive Equipment Utilized Scooting/ [...] with supine <> sit TRANSFERS Level of Crozier Physical/Non- physical Assist Adaptive Equipment Utilized Sit to Stand Minimum assist (75% patient's effort) Verbal Cues, Nonverbal cues (demo/gestures), Minimal cues Rollator Stand to sit Minimum assist (75% patient's effort) Verbal Cues, Nonverbal cues (demo/gestures), Minimal cues Rollator Interventions PT cued for proper hand placement and forward trunk lean prior to completing STS transfers BALANCE Postural Appearance Posture: Stooped posture Level of Crozier Balance Support Interventions Static Sit Standby assist [...] Left upper extremity support AMBULATION Level of Crozier Distance Adaptive Equipment Utilized Ambulation Contact guard [...] falling while progressing pt's distances Standardized Assessments [facility] 6-Clicks Mobility Assessment Difficulty patient has [...] climbing 3-5 steps with a railing?: Unable [facility] 6-Clicks Mobility Assessment Total : 16 [...] from the original note were not included. [facility] Department of Surgery Section of Thoracic [...] from the original note were not included. [facility] Department of Surgery Section of Thoracic [...] Cole Feliz Jr. 79 y.o. male CSN: [id number] Admission: 03/29/2025 9:43 AM Primary Problem: Non-small cell cancer of left lung (CMS/HCC) Senior Investigator reviewed chart and spoke with the patient at bedside to complete this Initial Case Management Assessment. PCP: Casa Phillips MD Emergency Contact: Extended Emergency Contact Information Primary Emergency Contact: Elliot Feliz Relation: Son Curb Builder needed? No Secondary Emergency Contact: Nora Feliz Relation: Daughter Curb Builder needed? No Insurance: Primary Visit Coverage Payer Plan Sponsor Code Group Number Group Name [employer] [facility] Night Up ADVANTAGE [id number] Primary Visit Coverage Subscriber Subscriber ID Subscriber Name Subscriber SSN Subscriber Address [id number] [facility] [id number] [address] [place] [address] Patient information: Primary Caregiver: Self Support System: Immediate family Daily Living Activities: Functional Status: Independent Living Arrangements: Children Type of Residence: Private residence, Single Level [address] [address] Current DME: Equipment Currently Used at Home: [...] DME Provider: n/a Living Will/Advance Directive/Power of Marble Carver /Guardian: Have you reviewed your Advance Directive [...] HH/HD/O2. PCP is Casa Phillips. Patient has [employer] Medicare insurance and uses [facility]. Family will assist and transport at [...] from the original note were not included. [facility] Department of Surgery Section of Thoracic [...] disease, without long-term current use of insulin ([facility]) Microalbuminuria Tobacco use disorder Second [...] disease, without long-term current use of insulin ([facility]) Anemia Electrolyte abnormality Plan: [ ] [...] Level of Mobility: Ambulatory- household only Mobility Crozier: Independent gait without device History of Falls: [...] Mobility Bed Mobility Exam: Scooting/Bridging Level of Crozier: Maximum assist (25% patient's effort) (to scoot to EOB while seated) Physical/Nonphysical Assist: Verbal Cues, Nonverbal cues (demo/gestures) Bed Mobility Exam: Supine to Sit Level of Crozier: Maximum assist (25% patient's effort) Physical/Nonphysical Assist: Verbal Cues, Nonverbal cues (demo/gestures), Additional assist utilized for safety, HOB elevated Transfers Transfer Exam: Sit to stand Level of Crozier: Moderate assist (50% patient's effort) Physical/Nonphysical Assist: Verbal Cues, Nonverbal cues (demo/gestures), Additional assist utilized for safety Transfer Exam: Stand to Sit Level of Crozier: Moderate assist (50% patient's effort) Physical/Nonphysical Assist: [...] climbing 3-5 steps with a railing?: Unable [facility] 6-Clicks Mobility Assessment Total : 11 [...] Level of Mobility: Ambulatory- household only Mobility Crozier: Independent gait without device History of Falls: [...] Mobility Bed Mobility Exam: Scooting/Bridging Level of Crozier: Maximum assist (25% patient's effort) (to scoot to EOB while seated) Physical/Nonphysical Assist: Verbal Cues, Nonverbal cues (demo/gestures) Bed Mobility Exam: Supine to Sit Level of Crozier: Maximum assist (25% patient's effort) Physical/Nonphysical Assist: Verbal Cues, Nonverbal cues (demo/gestures), Additional assist utilized for safety, HOB elevated Transfers Transfer Exam: Sit to stand Level of Crozier: Moderate assist (50% patient's effort) Physical/Nonphysical Assist: Verbal Cues, Nonverbal cues (demo/gestures), Additional assist utilized for safety Transfer Exam: Stand to Sit Level of Crozier: Moderate assist (50% patient's effort) Physical/Nonphysical Assist: [...] continued education to improve carryover. Standardized Assessments [facility] 6-Click Daily Activities Help from Other: Don/Doff Regular Lower Body Clothings: A lot Help From Other: Bathing: A lot Help From Other: Toileting: A lot Help From Other: Don/Doff Upper Body Clothings: Little Help From Other: Grooming: Little Help From Other: Eating Meals: None [facility] 6 Click - Daily Activities Score: [...] from the original note were not included. [facility] Department of Surgery Section of Thoracic [...] PM EDT Operative Note Date: 03/29/25 Location: [facility] Name: Cole Feliz , : 1945, Diagnoses: Pre-op Diagnosis Non-small cell cancer of left lung (CMS/HCC) Post-op Diagnosis Non-small cell cancer of left lung (CMS/HCC) Procedure(s): Bronchoscopy, left VATS converted to thoracotomy, left upper lobectomy, mediastinal lymph node dissection, intercostal nerve blocks Attending Surgeon(s): * Ирина Lopez - Primary Safety Associate(s): * Carl Hamlin MD - Resident [...] spaces under direct visualization. A single 24 [place] chest tube was placed through the camera [...] responses Results Review {Vanishing Link Review Results :[id number] I have reviewed the latest lab and [...] 0.5 mL 0.5 mL Injection Once PRN Rboert Santos MD sodium chloride 0.9 % flush [...] midnight, you can have clear liquids only (water, apple juice, Gatorade) up to 2 hours prior to arrival. No coffee or tea. No alcohol or smoking prior to surgery Arrive on time to avoid delays Parking/Registration procedure explained You MUST have a responsible adult available for transport to and from hospital Visitation policy for the day of surgery reviewed Bring insurance card, photo ID, along with power of regulatory attorney, guardianship or advanced directives if applicable [...] [facility] [address] [facility], [address] [place] [address] Nikolai Naranjo MD [address] [facility] Lorin Avila [facility] [address] [place] [address] documented as of this encounter Procedures Procedure [...] Non-small cell cancer of left lung (CMS/HCC) [place] THORACOSCOPY SURG LOBECTOMY 03/29/2025 1:24 PM EDT [...] Comment 04/04/2025 8:36 AM EDT [facility]ARE LAB Cistern Room Working Supervisor ID Sandy Kramer 04/04/2025 8:36 AM EDT [facility] [employer] LAB Device ID [id number] 04/04/2025 8:36 AM EDT [facility]ALTH[facility]ARE LAB Specimen Type POC Capillary 04/04/2025 8:36 AM EDT [facility] [employer] [facility] Blood Capillary blood specimen / Unknown 04/04/2025 8:34 AM EDT 04/04/2025 8:36 AM EDT Ирина Lopez MD LAB POINT OF CARE TE ST DOCKED DEVICE UNSOLICITED RESULTS Final Result [facility] [address] [place], [place] [id number] * XR Chest 1 View (04/04/2025 5:20 [...] MD on 04/04/2025 10:20 AM Scarlet Gamboa CIRCULAR KNITTER IMG XR PROCEDURES Final Resul t * (ABNORMAL) Renal Function Panel, Plasma (04/04/2025 2:19 AM EDT) Glucose, Plasma 166(H) 74 - 99 mg/dL 04/04/2025 2:53 AM EDT [facility] BUN, Plasma 18 8 - 23 mg/dL 04/04/2025 2:53 AM EDT [facility] Creatinine, Plasma 1.31(H) 0.70 - 1.20 mg/dL 04/04/2025 2:53 AM EDT [facility] BUN/Creatinine Ratio 14 04/04/2025 2:53 AM EDT [facility] Sodium, Plasma 136 136 - 145 mmol/L 04/04/2025 2:53 AM EDT [facility] Potassium, Plasma 4.3 3.6 - 4.9 mmol/L 04/04/2025 2:53 AM EDT [facility] Chloride, Plasma 103 97 - 107 mmol/L 04/04/2025 2:53 AM EDT [facility] CO2, Plasma 22 22 - 29 mmol/L 04/04/2025 2:53 AM EDT [facility] Anion Gap 11 6 - 16 mmol/L 04/04/2025 2:53 AM EDT [facility] Total Calcium, Plasma 8.2(L) 8.9 - 10.2 mg/dL 04/04/2025 2:53 AM EDT [facility] Phosphorus, Plasma 3.1 2.5 - 4.5 mg/dL 04/04/2025 2:53 AM EDT [facility] Albumin, Plasma 3.0(L) 3.5 - 5.2 g/dL 04/04/2025 2:53 AM EDT [facility] eGFRcr 55.7 mL/min/1.7 3m*2 04/04/2025 2:53 AM EDT [facility] Comment:Reported eGFRcr in m L/min/1.73m2 is based the CKD-EPI 2020 equation that does not use a race coefficient. Blood Venous blood specimen / Unknown Venipuncture / Unknown 04/04/2025 2:19 AM EDT 04/04/2025 2:24 AM EDT Ирина Lopez MD LAB BLOOD ORDERABLES Final R esult Performing Organization Address City/[facility]/ZIP Co de Phone Number [facility] [address] [place] [address] * (ABNORMAL) Magnesium, Plasma (04/04/2025 2:19 AM EDT) Magnesium, Plasma 1.8(L) 1.9 - 2.4 mg/dL 04/04/2025 2:53 AM EDT [facility] Blood Venous blood specimen / Unknown Venipuncture / Unknown 04/04/2025 2:19 AM EDT 04/04/2025 2:24 AM EDT Ирина Lopez MD LAB BLOOD ORDERABLES Final R esult Performing Organization Address City/[facility]/ZIP Co de Phone Number [facility] [address] [place] [address] * (ABNORMAL) CBC W/O Differential (04/04/2025 2:19 AM EDT) WBC Count 5.44 3.70 - 10.30 10*3/uL LAB HEMATOLOGY METHOD 04/04/2025 2:33 AM EDT [facility] RBC Count 3.77(L) 4.60 - 6.10 10*6/uL LAB HEMATOLOGY METHOD 04/04/2025 2:33 AM EDT [facility] HGB 10.7(L) 13.7 - 17.5 g/dL LAB HEMATOLOGY METHOD 04/04/2025 2:33 AM EDT [facility] HCT 32.4(L) 40.0 - 51.0 % LAB HEMATOLOGY METHOD 04/04/2025 2:33 AM EDT [facility] Platelet Count 220 155 - 369 10*3/uL LAB HEMATOLOGY METHOD 04/04/2025 2:33 AM EDT [facility] MCV 86 79 - 98 fL LAB HEMATOLOGY METHOD 04/04/2025 2:33 AM EDT [facility] MCH 28.4 26.0 - 32.0 pg LAB HEMATOLOGY METHOD 04/04/2025 2:33 AM EDT [facility] MCHC 33.0 30.7 - 35.5 g/dL LAB HEMATOLOGY METHOD 04/04/2025 2:33 AM EDT [facility] RDW 14.7(H) 11.5 - 14.5 % LAB HEMATOLOGY METHOD 04/04/2025 2:33 AM EDT [facility] MPV 9.1 8.8 - 12.5 fL LAB HEMATOLOGY METHOD 04/04/2025 2:33 AM EDT [facility] nRBC 0.4(H) <=0.0 per 100 WBCs LAB HEMATOLOGY METHOD 04/04/2025 2:33 AM EDT [facility] Blood Venous blood specimen / Unknown Venipuncture / Unknown 04/04/2025 2:19 AM EDT 04/04/2025 2:24 AM EDT us Ирина Lopez MD LAB BLOOD ORDERABLES Final R esult [facility] [address] [place] [address] * (ABNORMAL) POCT glucose meter (04/03/2025 8:25 PM EDT) [facility] POCT Glucose 194(H) 74 - 99 mg/dL [...] Comment 04/03/2025 8:28 PM EDT [facility] Cistern Room Working Supervisor ID Obdulio Navarro 04/03/2025 8:28 PM EDT [facility] Device ID [id number] 04/03/2025 8:28 PM EDT [facility] Specimen Type POC Capillary 04/03/2025 8:28 PM EDT [facility] Blood Capillary blood specimen / Unknown 04/03/2025 8:25 PM EDT 04/03/2025 8:28 PM EDT Ирина Lopez MD LAB POINT OF CARE TE ST DOCKED DEVICE UNSOLICITED RESULTS Final Result Performing Organization Address [facility] Co de Phone Number [facility] [address] [place] [address] * (ABNORMAL) POCT glucose meter (04/03/2025 5:27 PM EDT) [facility] POCT Glucose 138(H) 74 - 99 mg/dL [...] 04/03/2025 5:29 PM EDT [facility] Cistern Room Working Supervisor ID Anayeli [place] 025 5:29 PM EDT [facility] Device ID [id number] 04/03/2025 5:29 PM EDT [facility] Specimen Type POC Capillary 04/03/2025 5:29 PM EDT [facility] Blood Capillary blood specimen / Unknown 04/03/2025 5:27 PM EDT 04/03/2025 5:29 PM EDT us Ирина Lopez MD LAB POINT OF CARE TE ST DOCKED DEVICE UNSOLICITED RESULTS Final Result [facility] [address] [place] [address] * XR Chest 1 View (04/03/2025 1:09 [...] for testing. Comment 04/03/2025 12:17 PM EDT [facility] Cistern Room Working Supervisor ID Anayeli [place] 025 12:17 PM EDT [facility] Device ID [id number] 04/03/2025 12:17 PM EDT [facility] Specimen Type POC Capillary 04/03/2025 12:17 PM EDT [facility] Blood Capillary blood specimen / Unknown 04/03/2025 12:15 PM EDT 04/03/2025 12:17 PM EDT Ирина Lopez MD LAB POINT OF CARE TE ST DOCKED DEVICE UNSOLICITED RESULTS Final Result Performing Organization Address City/State/[facility] Co de Phone Number [facility] [address] [place] [address] * (ABNORMAL) POCT glucose meter (04/03/2025 8:46 [...] 04/03/2025 8:48 AM EDT [facility] Cistern Room Working Supervisor ID Anayeli [place] 025 8:48 AM EDT [facility]ALTH[facility] LAB Device ID [id number] 04/03/2025 8:48 AM EDT [facility] Specimen Type POC Capillary 04/03/2025 8:48 AM EDT [facility] Blood Capillary blood specimen / Unknown 04/03/2025 8:46 AM EDT 04/03/2025 8:48 AM EDT us Ирина Lopez MD LAB POINT OF CARE TE ST DOCKED DEVICE UNSOLICITED RESULTS Final Result [facility] [address] [place] [address] * XR Chest 1 View (04/03/2025 5:53 [...] on 04/03/2025 9:52 AM us Scarlet Gamboa CIRCULAR KNITTER IMG XR PROCEDURES Final Resul t * (ABNORMAL) Renal Function Panel, Plasma (04/03/2025 3:45 AM EDT) Glucose, Plasma 131(H) 74 - 99 mg/dL 04/03/2025 4:24 AM EDT [facility] BUN, Plasma 16 8 - 23 mg/dL 04/03/2025 4:24 AM EDT [facility] Creatinine, Plasma 1.34(H) 0.70 - 1.20 mg/dL 04/03/2025 4:24 AM EDT [facility] BUN/Creatinine Ratio 12 04/03/2025 4:24 AM EDT [facility] Sodium, Plasma 135(L) 136 - 145 mmol/L 04/03/2025 4:24 AM EDT [facility] Potassium, Plasma 4.9 3.6 - 4.9 mmol/L 04/03/2025 4:24 AM EDT [facility] Chloride, Plasma 103 97 - 107 mmol/L 04/03/2025 4:24 AM EDT [facility] CO2, Plasma 21(L) 22 - 29 mmol/L 04/03/2025 4:24 AM EDT [facility] Anion Gap 11 6 - 16 mmol/L 04/03/2025 4:24 AM EDT [facility] Total Calcium, Plasma 7.7(L) 8.9 - 10.2 mg/dL 04/03/2025 4:24 AM EDT [facility] Phosphorus, Plasma 2.2(L) 2.5 - 4.5 mg/dL 04/03/2025 4:24 AM EDT [facility] Albumin, Plasma 2.8(L) 3.5 - 5.2 g/dL 04/03/2025 4:24 AM EDT [facility] eGFRcr 54.2 mL/min/1.7 3m*2 04/03/2025 4:24 AM EDT [facility] Comment:Reported eGFRcr in m L/min/1.73m2 is based the CKD-EPI 2020 equation that does not use a race coefficient. Blood Venous blood specimen / Unknown Venipuncture / Unknown 04/03/2025 3:45 AM EDT 04/03/2025 3:54 AM EDT Ирина Lopez MD LAB BLOOD ORDERABLES Final R esult Performing Organization Address City/[facility]/ZIP Co de Phone Number [facility] [address] [place] [address] * Magnesium, Plasma (04/03/2025 3:45 AM EDT) [facility] Magnesium, Plasma 2.0 1.9 - 2.4 mg/dL 04/03/2025 4:24 AM EDT [facility] Blood Venous blood specimen / Unknown Venipuncture / Unknown 04/03/2025 3:45 AM EDT 04/03/2025 3:54 AM EDT Ирина Lopez MD LAB BLOOD ORDERABLES Final R esult Performing Organization Address City/[facility] Co de Phone Number [facility] [address] [place] [address] * (ABNORMAL) CBC W/O Differential (04/03/2025 3:45 AM EDT) WBC Count 6.54 3.70 - 10.30 10*3/uL LAB HEMATOLOGY METHOD 04/03/2025 4:09 AM EDT [facility] RBC Count 3.42(L) 4.60 - 6.10 10*6/uL LAB HEMATOLOGY METHOD 04/03/2025 4:09 AM EDT [facility] HGB 9.8(L) 13.7 - 17.5 g/dL LAB HEMATOLOGY METHOD 04/03/2025 4:09 AM EDT [facility] HCT 29.2(L) 40.0 - 51.0 % LAB HEMATOLOGY METHOD 04/03/2025 4:09 AM EDT [facility] Platelet Count 209 155 - 369 10*3/uL LAB HEMATOLOGY METHOD 04/03/2025 4:09 AM EDT [facility] MCV 85 79 - 98 fL LAB HEMATOLOGY METHOD 04/03/2025 4:09 AM EDT [facility] MCH 28.7 26.0 - 32.0 pg LAB HEMATOLOGY METHOD 04/03/2025 4:09 AM EDT [facility] MCHC 33.6 30.7 - 35.5 g/dL LAB HEMATOLOGY METHOD 04/03/2025 4:09 AM EDT [facility] RDW 15.0(H) 11.5 - 14.5 % LAB HEMATOLOGY METHOD 04/03/2025 4:09 AM EDT [facility] MPV 9.4 8.8 - 12.5 fL LAB HEMATOLOGY METHOD 04/03/2025 4:09 AM EDT [facility] nRBC 0.0 <=0.0 per 100 WBCs LAB HEMATOLOGY METHOD 04/03/2025 4:09 AM EDT [facility] Blood Venous blood specimen / Unknown Venipuncture / Unknown 04/03/2025 3:45 AM EDT 04/03/2025 3:54 AM EDT us Ирина Lopez MD LAB BLOOD ORDERABLES Final R esult [facility] [address] [place] [address] * (ABNORMAL) POCT glucose meter (04/02/2025 8:16 PM EDT) [facility] POCT Glucose 154(H) 74 - 99 mg/dL [...] 04/02/2025 8:20 PM EDT [facility] Cistern Room Working Supervisor ID Jil Ruiz 8:20 PM EDT [facility] Device ID [id number] 04/02/2025 8:20 PM EDT [facility] Specimen Type POC Capillary 04/02/2025 8:20 PM EDT [facility] Blood Capillary blood specimen / Unknown 04/02/2025 8:16 PM EDT 04/02/2025 8:20 PM EDT Ирина Lopez MD LAB POINT OF CARE TE ST DOCKED DEVICE UNSOLICITED RESULTS Final Result Performing Organization Address City/[facility] Co de Phone Number [facility]ARE LAB [address] [place] [address] * (ABNORMAL) POCT glucose meter (04/02/2025 5:20 PM EDT) [facility] POCT Glucose 122(H) 74 - 99 mg/dL [...] Comment 04/02/2025 5:22 PM EDT [facility] Cistern Room Working Supervisor ID Kenn Cabrera 04/02/2025 5:22 PM EDT [facility] LAB Device ID [id number] 04/02/2025 5:22 PM EDT [facility] Specimen Type POC Capillary 04/02/2025 5:22 PM EDT [facility] Blood Capillary blood specimen / Unknown 04/02/2025 5:20 PM EDT 04/02/2025 5:22 PM EDT us Ирина Lopez MD LAB POINT OF CARE TE ST DOCKED DEVICE UNSOLICITED RESULTS Final Result Performing Organization Address City/[facility] Co de Phone Number [facility] [address] [place] [address] * (ABNORMAL) CBC W/O Differential (04/02/2025 3:02 PM EDT) [facility] WBC Count 6.02 3.70 - 10.30 10*3/uL LAB HEMATOLOGY METHOD 04/02/2025 3:27 PM EDT [facility] RBC Count 3.09(L) 4.60 - 6.10 10*6/uL LAB HEMATOLOGY METHOD 04/02/2025 3:27 PM EDT [facility] HGB 8.9(L) 13.7 - 17.5 g/dL LAB HEMATOLOGY METHOD 04/02/2025 3:27 PM EDT [facility] HCT 26.9(L) 40.0 - 51.0 % LAB HEMATOLOGY METHOD 04/02/2025 3:27 PM EDT [facility] Platelet Count 129(L) 155 - 369 10*3/uL LAB HEMATOLOGY METHOD 04/02/2025 3:27 PM EDT [facility] MCV 87 79 - 98 fL LAB HEMATOLOGY METHOD 04/02/2025 3:27 PM EDT [facility] MCH 28.8 26.0 - 32.0 pg LAB HEMATOLOGY METHOD 04/02/2025 3:27 PM EDT [facility] MCHC 33.1 30.7 - 35.5 g/dL LAB HEMATOLOGY METHOD 04/02/2025 3:27 PM EDT [facility] RDW 14.4 11.5 - 14.5 % LAB HEMATOLOGY METHOD 04/02/2025 3:27 PM EDT [facility] MPV 9.9 8.8 - 12.5 fL LAB HEMATOLOGY METHOD 04/02/2025 3:27 PM EDT [facility] nRBC 0.0 <=0.0 per 100 WBCs LAB HEMATOLOGY METHOD 04/02/2025 3:27 PM EDT [facility] Blood Venous blood specimen / Unknown Venipuncture / Unknown 04/02/2025 3:02 PM EDT 04/02/2025 3:20 PM EDT us Scarlet Gamboa APRN LAB BLOOD ORDERABLES Final Re sult [facility] [address] [place] [address] * Transfuse RBC (04/02/2025 2:53 PM EDT) us Scarlet Gambao APRN BLOOD TRANSFUSION ORDERABLES Final Result * [...] Comment 04/02/2025 12:30 PM EDT [facility] Cistern Room Working Supervisor ID Kenn Cabrera 04/02/2025 12:30 PM EDT [facility] Device ID [id number] 04/02/2025 12:30 PM EDT [facility] Specimen Type POC Capillary 04/02/2025 12:30 PM EDT [facility] Blood Capillary blood specimen / Unknown 04/02/2025 12:28 PM EDT 04/02/2025 12:30 PM EDT Ирина Lopez MD LAB POINT OF CARE TE ST DOCKED DEVICE UNSOLICITED RESULTS Final Result Performing Organization Address City/State/[facility] Phone Number [facility]ALTH[facility]ARE LAB [address] [place] [address] * Transfuse RBC (04/02/2025 12:16 PM EDT) [...] glucose meter (04/02/2025 8:31 AM EDT) Pathologist [facility] POCT Glucose 127(H) 74 - 99 mg/dL [...] Comment 04/02/2025 8:33 AM EDT [facility] Cistern Room Working Supervisor ID Martha Sena 04/02/2025 8:33 AM EDT [facility]ALTH[facility]ARE LAB Device ID [id number] 04/02/2025 8:33 AM EDT [facility] Specimen Type POC Capillary 04/02/2025 8:33 AM EDT [facility] Blood Capillary blood specimen / Unknown 04/02/2025 8:31 AM EDT 04/02/2025 8:33 AM EDT us Ирина Lopez MD LAB POINT OF CARE TE ST DOCKED DEVICE UNSOLICITED RESULTS Final Result [facility] [address] [place] [address] * Prepare Leukocyte Reduced RBC: 2 Units (04/02/2025 7:58 AM EDT) Product Code P3836C31 BLOO D BANK Dispense Status Transfused [facility] Blood Expiration Date [id number] [facility] Unit Number [id number] [facility] LOOD B[facility] Product Blood Type 6200 [facility] Blood Type A+ [facility] Crossmatch Compatible [facility] Product Code S8792D80 [facility] BLOO D BANK Dispense Status Transfused [facility] Blood Expiration Date [id number] [facility] Unit Number [id number] [facility] B LOOD BANK Product Blood Type 6200 [facility] Blood Type A+ [facility]LO[facility] Crossmatch Compatible [facility] Other us Scarlet Gamboa APRN BLOOD BANK PRODUCT ORDERABLES Final Result Performing Organization Address [facility] de Phone Number BLOOD BANK [address] [place] [address], [place] * Type and Screen (04/02/2025 6:36 [...] ORDERABL ES Final Result Performing Organization Address [facility] de Phone Number BLOOD BANK [address] [place] [address], [place] * XR Chest 1 View (04/02/2025 [...] - 99 mg/dL 04/02/2025 5:51 AM EDT [facility] BUN, Plasma 16 8 - 23 mg/dL 04/02/2025 5:51 AM EDT [facility] Creatinine, Plasma 1.47(H) 0.70 - 1.20 mg/dL 04/02/2025 5:51 AM EDT [facility] BUN/Creatinine Ratio 11 04/02/2025 5:51 AM EDT [facility] Sodium, Plasma 137 136 - 145 mmol/L 04/02/2025 5:51 AM EDT [facility] Potassium, Plasma 4.3 3.6 - 4.9 mmol/L 04/02/2025 5:51 AM EDT [facility] Chloride, Plasma 104 97 - 107 mmol/L 04/02/2025 5:51 AM EDT [facility] CO2, Plasma 24 22 - 29 mmol/L 04/02/2025 5:51 AM EDT [facility] Anion Gap 9 6 - 16 mmol/L 04/02/2025 5:51 AM EDT [facility] Total Calcium, Plasma 7.8(L) 8.9 - 10.2 mg/dL 04/02/2025 5:51 AM EDT [facility] Phosphorus, Plasma 2.6 2.5 - 4.5 mg/dL 04/02/2025 5:51 AM EDT [facility] Albumin, Plasma 2.8(L) 3.5 - 5.2 g/dL 04/02/2025 5:51 AM EDT [facility] eGFRcr 48.5 mL/min/1.7 3m*2 04/02/2025 5:51 AM EDT [facility] Comment:Reported eGFRcr in m L/min/1.73m2 is based the CKD-EPI 2020 equation that does not use a race coefficient. Blood Venous blood specimen / Unknown Venipuncture / Unknown 04/02/2025 4:32 AM EDT 04/02/2025 5:20 AM EDT us Ирина Lopez MD LAB BLOOD ORDERABLES Final R esult [facility] [address] [place] [address] * Magnesium, Plasma (04/02/2025 4:32 AM EDT) Magnesium, Plasma 1.9 1.9 - 2.4 mg/dL 04/02/2025 5:51 AM EDT [facility] Blood Venous blood specimen / Unknown Venipuncture / Unknown 04/02/2025 4:32 AM EDT 04/02/2025 5:20 AM EDT us Ирина Lopez MD LAB BLOOD ORDERABLES Final R esult [facility] [address] [place] [address] * (ABNORMAL) CBC W/O Differential (04/02/2025 4:32 AM EDT) WBC Count 6.22 3.70 - 10.30 10*3/uL LAB HEMATOLOGY METHOD 04/02/2025 5:31 AM EDT [facility] RBC Count 2.14(L) 4.60 - 6.10 10*6/uL LAB HEMATOLOGY METHOD 04/02/2025 5:31 AM EDT [facility] HGB 6.4(LL) 13.7 - 17.5 g/dL LAB HEMATOLOGY METHOD 04/02/2025 5:31 AM EDT [facility] HCT 19.0(LL) 40.0 - 51.0 % LAB HEMATOLOGY METHOD 04/02/2025 5:31 AM EDT [facility] Platelet Count 180 155 - 369 10*3/uL LAB HEMATOLOGY METHOD 04/02/2025 5:31 AM EDT [facility] MCV 89 79 - 98 fL LAB HEMATOLOGY METHOD 04/02/2025 5:31 AM EDT [facility] MCH 29.9 26.0 - 32.0 pg LAB HEMATOLOGY METHOD 04/02/2025 5:31 AM EDT [facility] MCHC 33.7 30.7 - 35.5 g/dL LAB HEMATOLOGY METHOD 04/02/2025 5:31 AM EDT [facility] RDW 14.0 11.5 - 14.5 % LAB HEMATOLOGY METHOD 04/02/2025 5:31 AM EDT [facility] MPV 9.9 8.8 - 12.5 fL LAB HEMATOLOGY METHOD 04/02/2025 5:31 AM EDT [facility] nRBC 0.0 <=0.0 per 100 WBCs LAB HEMATOLOGY METHOD 04/02/2025 5:31 AM EDT [facility] Blood Venous blood specimen / Unknown Venipuncture / Unknown 04/02/2025 4:32 AM EDT 04/02/2025 5:20 AM EDT Ирина Lopez MD LAB BLOOD ORDERABLES Final R esult Performing Organization Address City/[facility]/ZIP Co de Phone Number [facility] [address] [place] [address] * (ABNORMAL) POCT glucose meter (04/01/2025 8:14 [...] Comment 04/01/2025 8:16 PM EDT [facility] Cistern Room Working Supervisor ID ShkrJil elizalde 8:16 PM EDT [facility] Device ID [id number] 04/01/2025 8:16 PM EDT [facility] Specimen Type POC Capillary 04/01/2025 8:16 PM EDT [facility] Blood Capillary blood specimen / Unknown 04/01/2025 8:14 PM EDT 04/01/2025 8:16 PM EDT Ирина Lopez MD LAB POINT OF CARE TE ST DOCKED DEVICE UNSOLICITED RESULTS Final Result Performing Organization Address City/[facility]/ZIP Co de Phone Number [facility]ARE [facility] [address] [place] [address] * (ABNORMAL) POCT glucose meter (04/01/2025 5:26 [...] Comment 04/01/2025 5:29 PM EDT [facility] Cistern Room Working Supervisor ID Kenn Cabrera 04/01/2025 5:29 PM EDT [facility]ALTH[facility]ARE [facility] Device ID [id number] 04/01/2025 5:29 PM EDT [facility]ALTH[facility]ARE [facility] Specimen Type POC Capillary 04/01/2025 5:29 PM EDT [facility] Blood Capillary blood specimen / Unknown 04/01/2025 5:26 PM EDT 04/01/2025 5:29 PM EDT us Ирина Lopez MD LAB POINT OF CARE TE ST DOCKED DEVICE UNSOLICITED RESULTS Final Result Performing Organization Address City/State/[facility] Co de Phone Number HEALTHCARE LAB [address] [place] [address] * (ABNORMAL) POCT glucose meter (04/01/2025 12:49 PM EDT) [facility] POCT Glucose 162(H) 74 - 99 mg/dL [...] Comment 04/01/2025 12:51 PM EDT [facility] Cistern Room Working Supervisor ID Kenn Cabrera 04/01/2025 12:51 PM EDT [facility] Device ID [id number] 04/01/2025 12:51 PM EDT [facility] Specimen Type POC Capillary 04/01/2025 12:51 PM EDT [facility] Blood Capillary blood specimen / Unknown 04/01/2025 12:49 PM EDT 04/01/2025 12:51 PM EDT us Ирина Lopez MD LAB POINT OF CARE TE ST DOCKED DEVICE UNSOLICITED RESULTS Final Result Performing Organization Address [facility] de Phone Number HEALTHCARE LAB [address] [place] [address] * (ABNORMAL) POCT glucose meter (04/01/2025 8:43 [...] 04/01/2025 8:45 AM EDT [facility] Cistern Room Working Supervisor ID Kenn Cabrera 04/01/2025 8:45 AM EDT [facility] Device ID [id number] 04/01/2025 8:45 AM EDT [facility] Specimen Type POC Capillary 04/01/2025 8:45 AM EDT [facility] Blood Capillary blood specimen / Unknown 04/01/2025 8:43 AM EDT 04/01/2025 8:45 AM EDT Ирина Lopez MD LAB POINT OF CARE TE ST DOCKED DEVICE UNSOLICITED RESULTS Final Result Performing Organization Address [facility] de Phone Number [facility] [address] [place] [address] * XR Chest 1 View (04/01/2025 5:41 [...] - 99 mg/dL 04/01/2025 4:24 AM EDT [facility] BUN, Plasma 20 8 - 23 mg/dL 04/01/2025 4:24 AM EDT [facility] Creatinine, Plasma 1.67(H) 0.70 - 1.20 mg/dL 04/01/2025 4:24 AM EDT [facility] BUN/Creatinine Ratio 12 04/01/2025 4:24 AM EDT [facility] Sodium, Plasma 136 136 - 145 mmol/L 04/01/2025 4:24 AM EDT [facility] Potassium, Plasma 4.3 3.6 - 4.9 mmol/L 04/01/2025 4:24 AM EDT [facility] Chloride, Plasma 101 97 - 107 mmol/L 04/01/2025 4:24 AM EDT [facility] CO2, Plasma 24 22 - 29 mmol/L 04/01/2025 4:24 AM EDT [facility] Anion Gap 11 6 - 16 mmol/L 04/01/2025 4:24 AM EDT [facility] Total Calcium, Plasma 8.1(L) 8.9 - 10.2 mg/dL 04/01/2025 4:24 AM EDT [facility] Phosphorus, Plasma 2.5 2.5 - 4.5 mg/dL 04/01/2025 4:24 AM EDT [facility] Albumin, Plasma 3.0(L) 3.5 - 5.2 g/dL 04/01/2025 4:24 AM EDT [facility] eGFRcr 41.6 mL/min/1.7 3m*2 04/01/2025 4:24 AM EDT [facility] Comment:Reported eGFRcr in m L/min/1.73m2 is based the CKD-EPI 2020 equation that does not use a race coefficient. Blood Venous blood specimen / Unknown Venipuncture / Unknown 04/01/2025 2:12 AM EDT 04/01/2025 3:21 AM EDT Ирина Lopez MD LAB BLOOD ORDERABLES Final R esult [facility] [address] [place] [address] * Magnesium, Plasma (04/01/2025 2:12 AM EDT) Magnesium, Plasma 2.4 1.9 - 2.4 mg/dL 04/01/2025 4:24 AM EDT [facility] Blood Venous blood specimen / Unknown Venipuncture / Unknown 04/01/2025 2:12 AM EDT 04/01/2025 3:21 AM EDT Ирина Lopez MD LAB BLOOD ORDERABLES Final R esult [facility] [address] [place] [address] * (ABNORMAL) CBC W/O Differential (04/01/2025 2:12 AM EDT) WBC Count 6.25 3.70 - 10.30 10*3/uL LAB HEMATOLOGY METHOD 04/01/2025 3:29 AM EDT [facility] RBC Count 2.59(L) 4.60 - 6.10 10*6/uL LAB HEMATOLOGY METHOD 04/01/2025 3:29 AM EDT [facility] HGB 7.6(L) 13.7 - 17.5 g/dL LAB HEMATOLOGY METHOD 04/01/2025 3:29 AM EDT [facility] HCT 22.9(L) 40.0 - 51.0 % LAB HEMATOLOGY METHOD 04/01/2025 3:29 AM EDT [facility] Platelet Count 163 155 - 369 10*3/uL LAB HEMATOLOGY METHOD 04/01/2025 3:29 AM EDT [facility] MCV 88 79 - 98 fL LAB HEMATOLOGY METHOD 04/01/2025 3:29 AM EDT [facility] MCH 29.3 26.0 - 32.0 pg LAB HEMATOLOGY METHOD 04/01/2025 3:29 AM EDT [facility] MCHC 33.2 30.7 - 35.5 g/dL LAB HEMATOLOGY METHOD 04/01/2025 3:29 AM EDT [facility] RDW 14.1 11.5 - 14.5 % LAB HEMATOLOGY METHOD 04/01/2025 3:29 AM EDT [facility] MPV 10.0 8.8 - 12.5 fL LAB HEMATOLOGY METHOD 04/01/2025 3:29 AM EDT [facility] nRBC 0.0 <=0.0 per 100 WBCs LAB HEMATOLOGY METHOD 04/01/2025 3:29 AM EDT [facility] Blood Venous blood specimen / Unknown Venipuncture / Unknown 04/01/2025 2:12 AM EDT 04/01/2025 3:21 AM EDT us Ирина Lopez MD LAB BLOOD ORDERABLES Final R esult [facility] [address] [place] [address] * (ABNORMAL) POCT glucose meter (03/31/2025 8:19 [...] Comment 03/31/2025 8:21 PM EDT [facility] Room Working Supervisor ID Jil Ruiz 8:21 PM EDT [facility] Device ID [id number] 03/31/2025 8:21 PM EDT [facility] Specimen Type POC Capillary 03/31/2025 8:21 PM EDT [facility] Blood Capillary blood specimen / Unknown 03/31/2025 8:19 PM EDT 03/31/2025 8:21 PM EDT us Ирина Lopez MD LAB POINT OF CARE TE ST DOCKED DEVICE UNSOLICITED RESULTS Final Result Performing Organization Address City/State/[facility] Co de Phone Number [facility] [address] [place] [address] * (ABNORMAL) POCT glucose meter (03/31/2025 5:24 PM EDT) [facility] POCT Glucose 194(H) 74 - 99 mg/dL [...] 03/31/2025 5:26 PM EDT [facility] Room Working Supervisor ID Kenn Cabrera 03/31/2025 5:26 PM EDT [facility] Device ID [id number] 03/31/2025 5:26 PM EDT [facility] Specimen Type POC Capillary 03/31/2025 5:26 PM EDT [facility] Blood Capillary blood specimen / Unknown 03/31/2025 5:24 PM EDT 03/31/2025 5:26 PM EDT us Ирина Lopez MD LAB POINT OF CARE TE ST DOCKED DEVICE UNSOLICITED RESULTS Final Result [facility] [address] [place] [address] * Transfuse RBC (03/31/2025 3:56 PM EDT) Scarlet Gamboa CIRCULAR KNITTER BLOOD TRANSFUSION ORDERABLES Final Result * Transfuse RBC: 1 Units (03/31/2025 3:56 PM EDT) Scalret Gamboa CIRCULAR KNITTER BLOOD TRANSFUSION ORDERABLES Final Result * XR [...] 03/31/2025 1:30 PM us Scarlet A Gamboa CIRCULAR KNITTER IMG XR PROCEDURES Final Resul t * [...] for testing. Comment 03/31/2025 12:34 PM EDT [facility] Cistern Room Working Supervisor ID Kenn Cabrera 03/31/2025 12:34 PM EDT [facility] Device ID [id number] 03/31/2025 12:34 PM EDT [facility] Specimen Type POC Capillary 03/31/2025 12:34 PM EDT [facility] Blood Capillary blood specimen / Unknown 03/31/2025 12:31 PM EDT 03/31/2025 12:34 PM EDT us Ирина Lopez MD LAB POINT OF CARE TE ST DOCKED DEVICE UNSOLICITED RESULTS Final Result Performing Organization Address City/State/[facility] Co de Phone Number [facility] [address] [place] [address] * (ABNORMAL) POCT glucose meter (03/31/2025 9:08 AM EDT) POCT Glucose 173(H) 74 - 99 mg/dL 03/31/2025 9:09 AM EDT [facility] Comment:Accuracy of a glucos e result [...] 03/31/2025 9:09 AM EDT [facility] Room Working Supervisor ID Kenn Cabrera 03/31/2025 9:09 AM EDT [facility] Device ID [id number] 03/31/2025 9:09 AM EDT [facility] Specimen Type POC Capillary 03/31/2025 9:09 AM EDT [facility] Blood Capillary blood specimen / Unknown 03/31/2025 9:08 AM EDT 03/31/2025 9:09 AM EDT us Ирина Lopez MD LAB POINT OF CARE TE ST DOCKED DEVICE UNSOLICITED RESULTS Final Result Performing Organization Address City/[facility]/ZIP Co de Phone Number [facility] [address] [place] [address] * Prepare Leukocyte Reduced RBC: 1 Units (03/31/2025 9:02 AM EDT) Product Code [id number] CH BLOO D BANK Dispense Status Transfused BLOOD BANK Blood Expiration Date [id number] BLOOD BANK Unit Number [id number] CH B LOOD BANK Product Blood Type 6200 BLOOD BANK Blood Type A+ CH BLOOD BANK Crossmatch Compatible BLOOD BANK Other Scarlet Gamboa APRN BLOOD BANK PRODUCT ORDERABLES Final Result Performing Organization Address City/[facility] Co de Phone Number BLOOD BANK [address] [place] [address], * XR Chest 1 View (03/31/2025 6:04 AM EDT) Anatomical Region Laterality Modality Chest Digital Radiogra phy Impressions 03/31/2025 9:22 AM EDT Decreased left pneumothorax. CRITICAL RESULT: No. COMMUNICATION: Per this written report. Drafted by Dagobreto Forrester MD on 03/31/2025 9:21 AM Final [...] - 99 mg/dL 03/31/2025 3:13 AM EDT [facility] BUN, Plasma 21 8 - 23 mg/dL 03/31/2025 3:13 AM EDT [facility] Creatinine, Plasma 1.59(H) 0.70 - 1.20 mg/dL 03/31/2025 3:13 AM EDT [facility] BUN/Creatinine Ratio 13 03/31/2025 3:13 AM EDT [facility] Sodium, Plasma 133(L) 136 - 145 mmol/L 03/31/2025 3:13 AM EDT [facility] Potassium, Plasma 3.6 3.6 - 4.9 mmol/L 03/31/2025 3:13 AM EDT [facility] Chloride, Plasma 102 97 - 107 mmol/L 03/31/2025 3:13 AM EDT [facility] CO2, Plasma 19(L) 22 - 29 mmol/L 03/31/2025 3:13 AM EDT [facility] Anion Gap 12 6 - 16 mmol/L 03/31/2025 3:13 AM EDT [facility] Total Calcium, Plasma 7.0(L) 8.9 - 10.2 mg/dL 03/31/2025 3:13 AM EDT [facility] Phosphorus, Plasma 3.5 2.5 - 4.5 mg/dL 03/31/2025 3:13 AM EDT [facility] Albumin, Plasma 2.9(L) 3.5 - 5.2 g/dL 03/31/2025 3:13 AM EDT [facility] eGFRcr 44.2 mL/min/1.7 3m*2 03/31/2025 3:13 AM EDT [facility] Comment:Reported eGFRcr in m L/min/1.73m2 is based the CKD-EPI 2020 equation that does not use a race coefficient. Blood Venous blood specimen / Unknown Venipuncture / Unknown 03/31/2025 2:22 AM EDT 03/31/2025 2:41 AM EDT Ирина Lopez MD LAB BLOOD ORDERABLES Final R esult Performing Organization Address City/[facility]/ZIP Co de Phone Number [facility] [address] [place] [address] * (ABNORMAL) Magnesium, Plasma (03/31/2025 2:22 AM EDT) Magnesium, Plasma 3.1(H) 1.9 - 2.4 mg/dL 03/31/2025 3:13 AM EDT [facility] Blood Venous blood specimen / Unknown Venipuncture / Unknown 03/31/2025 2:22 AM EDT 03/31/2025 2:41 AM EDT Ирина Lopez MD LAB BLOOD ORDERABLES Final R esult [facility] [address] [place] [address] * (ABNORMAL) CBC W/O Differential (03/31/2025 2:22 AM EDT) WBC Count 7.84 3.70 - 10.30 10*3/uL LAB HEMATOLOGY METHOD 03/31/2025 2:51 AM EDT [facility] RBC Count 2.65(L) 4.60 - 6.10 10*6/uL LAB HEMATOLOGY METHOD 03/31/2025 2:51 AM EDT [facility] HGB 8.0(L) 13.7 - 17.5 g/dL LAB HEMATOLOGY METHOD 03/31/2025 2:51 AM EDT [facility] HCT 24.3(L) 40.0 - 51.0 % LAB HEMATOLOGY METHOD 03/31/2025 2:51 AM EDT [facility] Platelet Count 155 155 - 369 10*3/uL LAB HEMATOLOGY METHOD 03/31/2025 2:51 AM EDT [facility] MCV 92 79 - 98 fL LAB HEMATOLOGY METHOD 03/31/2025 2:51 AM EDT [facility] MCH 30.2 26.0 - 32.0 pg LAB HEMATOLOGY METHOD 03/31/2025 2:51 AM EDT [facility] MCHC 32.9 30.7 - 35.5 g/dL LAB HEMATOLOGY METHOD 03/31/2025 2:51 AM EDT [facility] RDW 13.2 11.5 - 14.5 % LAB HEMATOLOGY METHOD 03/31/2025 2:51 AM EDT [facility] MPV 9.6 8.8 - 12.5 fL LAB HEMATOLOGY METHOD 03/31/2025 2:51 AM EDT [facility] nRBC 0.0 <=0.0 per 100 WBCs LAB HEMATOLOGY METHOD 03/31/2025 2:51 AM EDT [facility] Blood Venous blood specimen / Unknown Venipuncture / Unknown 03/31/2025 2:22 AM EDT 03/31/2025 2:41 AM EDT us Ирина Lopez MD LAB BLOOD ORDERABLES Final R esult [facility] [address] [place] [address] * (ABNORMAL) POCT glucose meter (03/30/2025 8:28 PM EDT) [facility] POCT Glucose 206(H) 74 - 99 mg/dL 03/30/2025 8:30 PM EDT [facility] Comment:Accuracy of a glucos e result [...] Comment 03/30/2025 8:30 PM EDT [facility] Cis[facility] Room Working Supervisor ID Danuta Laughlin 03/30/2025 8:30 PM EDT [facility] Device ID [id number] 03/30/2025 8:30 PM EDT [facility] Specimen Type POC Capillary 03/30/2025 8:30 PM EDT [facility] Blood Capillary blood specimen / Unknown 03/30/2025 8:28 PM EDT 03/30/2025 8:30 PM EDT us Ирина Lopez MD LAB POINT OF CARE TE ST DOCKED DEVICE UNSOLICITED RESULTS Final Result Performing Organization Address City/State/[facility] Co de Phone Number [facility] [address] [place] [address] * (ABNORMAL) POCT glucose meter (03/30/2025 5:20 [...] 03/30/2025 5:21 PM EDT [facility] Room Working Supervisor ID Halima Ervin 03/30/20 5:21 PM EDT [facility] Device ID [id number] 03/30/2025 5:21 PM EDT [facility] Specimen Type POC Capillary 03/30/2025 5:21 PM EDT [facility] Blood Capillary blood specimen / Unknown 03/30/2025 5:20 PM EDT 03/30/2025 5:21 PM EDT us Ирина Lopez MD LAB POINT OF CARE TE ST DOCKED DEVICE UNSOLICITED RESULTS Final Result [facility] [address] [place] [address] * XR Chest 1 View (03/30/2025 4:46 [...] on 03/30/2025 5:01 PM us Scarlet Gamboa CIRCULAR KNITTER IMG XR PROCEDURES Final Resul t * (ABNORMAL) POCT glucose meter (03/30/2025 12:48 PM EDT) POCT Glucose 219(H) 74 - 99 mg/dL 03/30/2025 12:49 PM EDT [facility] Comment:Accuracy of a glucos e result [...] Comment 03/30/2025 12:49 PM EDT [facility] Cis[facility] Room Working Supervisor ID Cata Gibbs 12:49 PM EDT [facility] Device ID [id number] 03/30/2025 12:49 PM EDT [facility] Specimen Type POC Venous 03/30/2025 12:49 PM EDT [facility] Blood Venous blood specimen / Unknown 03/30/2025 12:48 PM EDT 03/30/2025 12:49 PM EDT us Ирина Lopez MD LAB POINT OF CARE TE ST DOCKED DEVICE UNSOLICITED RESULTS Final Result Performing Organization Address [facility] Co de Phone Number [facility] [address] [place] [address] * (ABNORMAL) Magnesium, Plasma (03/30/2025 10:57 AM EDT) Magnesium, Plasma 3.1(H) 1.9 - 2.4 mg/dL 03/30/2025 11:49 AM EDT [facility] Blood Venous blood specimen / Unknown Venipuncture / Unknown 03/30/2025 10:57 AM EDT 03/30/2025 11:16 AM EDT us Scarlet Gamboa APRN LAB BLOOD ORDERABLES Final Re sult [facility] [address] [place] [address] * (ABNORMAL) Renal function panel (03/30/2025 10:57 AM EDT) Glucose, Plasma 236(H) 74 - 99 mg/dL 03/30/2025 11:49 AM EDT [facility] BUN, Plasma 20 8 - 23 mg/dL 03/30/2025 11:49 AM EDT [facility] Creatinine, Plasma 1.64(H) 0.70 - 1.20 mg/dL 03/30/2025 11:49 AM EDT [facility] BUN/Creatinine Ratio 12 03/30/2025 11:49 AM EDT [facility] Sodium, Plasma 132(L) 136 - 145 mmol/L 03/30/2025 11:49 AM EDT [facility] Potassium, Plasma 4.6 3.6 - 4.9 mmol/L 03/30/2025 11:49 AM EDT [facility] Chloride, Plasma 100 97 - 107 mmol/L 03/30/2025 11:49 AM EDT [facility] CO2, Plasma 21(L) 22 - 29 mmol/L 03/30/2025 11:49 AM EDT [facility] Anion Gap 11 6 - 16 mmol/L 03/30/2025 11:49 AM EDT [facility] Total Calcium, Plasma 7.4(L) 8.9 - 10.2 mg/dL 03/30/2025 11:49 AM EDT [facility] Phosphorus, Plasma 2.6 2.5 - 4.5 mg/dL 03/30/2025 11:49 AM EDT [facility] Albumin, Plasma 3.0(L) 3.5 - 5.2 g/dL 03/30/2025 11:49 AM EDT [facility] eGFRcr 42.5 mL/min/1.7 3m*2 03/30/2025 11:49 AM EDT [facility] Comment:Reported eGFRcr in m L/min/1.73m2 is based the CKD-EPI 2020 equation that does not use a race coefficient. Blood Venous blood specimen / Unknown Venipuncture / Unknown 03/30/2025 10:57 AM EDT 03/30/2025 11:16 AM EDT us Ирина Lopez MD LAB BLOOD ORDERABLES Final R esult [facility] [address] [place] [address] * (ABNORMAL) POCT glucose meter (03/30/2025 10:56 [...] 03/30/2025 11:00 AM EDT [facility] Room Working Supervisor ID Cata Gibbs 11:00 AM EDT [facility] Device ID [id number] 03/30/2025 11:00 AM EDT [facility] Specimen Type POC Venous 03/30/2025 11:00 AM EDT [facility] Blood Venous blood specimen / Unknown 03/30/2025 10:56 AM EDT 03/30/2025 11:00 AM EDT us Ирина Lopez MD LAB POINT OF CARE TE ST DOCKED DEVICE UNSOLICITED RESULTS Final Result Performing Organization Address City/State/[facility] Co de Phone Number [facility] [address] [place] [address] * (ABNORMAL) POCT glucose meter (03/30/2025 9:38 AM EDT) [facility] POCT Glucose 271(H) 74 - 99 mg/dL [...] 03/30/2025 9:39 AM EDT [facility] C[facility] Room Working Supervisor ID Cata Gibbs 9:39 AM EDT [facility] Device ID [id number] 03/30/2025 9:39 AM EDT [facility] Specimen Type POC Venous 03/30/2025 9:39 AM EDT [facility] Blood Venous blood specimen / Unknown 03/30/2025 9:38 AM EDT 03/30/2025 9:39 AM EDT Ирина Lopez MD LAB POINT OF CARE TE ST DOCKED DEVICE UNSOLICITED RESULTS Final Result Performing Organization Address [facility] Co de Phone Number [facility] [address] [place] [address] * ECG Adult (03/30/2025 8:37 AM EDT) EKG DIAGNOSIS CLASS Abnormal MUSE ECG Ventricular Rate 81 BPM MUSE ECG Atrial Rate 81 BPM MUSE ECG WY Interval 170 ms MUSE ECG QRSD Interval 104 ms MUSE ECG QT Interval 416 ms MUSE ECG QTC Interval 483 ms MUSE ECG P [place] 39 degrees MUSE ECG R [place] -51 degrees MUSE ECG T Wave [place] -15 degrees MUSE ECG Diagnosis Poor data [...] ECG ORDERABLES Final Result Performing Organization Address [facility] de Phone Number MUSE ECG * (ABNORMAL) POCT glucose meter (03/30/2025 8:10 AM EDT) Pathologist [facility] POCT Glucose 164(H) 74 - 99 mg/dL 03/30/2025 8:11 AM EDT [facility] Comment:Accuracy of a glucos e result [...] 03/30/2025 8:11 AM EDT [facility] C[facility] Room Working Supervisor ID Cata Gibbs 8:11 AM EDT [facility] Device ID [id number] 03/30/2025 8:11 AM EDT [facility] Specimen Type POC Venous 03/30/2025 8:11 AM EDT [facility] Blood Venous blood specimen / Unknown 03/30/2025 8:10 AM EDT 03/30/2025 8:11 AM EDT us Ирина Lopez MD LAB POINT OF CARE TE ST DOCKED DEVICE UNSOLICITED RESULTS Final Result [facility] [address] [place] [address] * (ABNORMAL) Renal function panel (03/30/2025 4:05 AM EDT) Glucose, Plasma 207(H) 74 - 99 mg/dL 03/30/2025 4:40 AM EDT [facility] BUN, Plasma 18 8 - 23 mg/dL 03/30/2025 4:40 AM EDT [facility] Creatinine, Plasma 1.41(H) 0.70 - 1.20 mg/dL 03/30/2025 4:40 AM EDT [facility] BUN/Creatinine Ratio 13 03/30/2025 4:40 AM EDT [facility] Sodium, Plasma 134(L) 136 - 145 mmol/L 03/30/2025 4:40 AM EDT [facility] Potassium, Plasma 5.8(H) 3.6 - 4.9 mmol/L 03/30/2025 4:40 AM EDT [facility] Chloride, Plasma 101 97 - 107 mmol/L 03/30/2025 4:40 AM EDT [facility] CO2, Plasma 20(L) 22 - 29 mmol/L 03/30/2025 4:40 AM EDT [facility] Anion Gap 13 6 - 16 mmol/L 03/30/2025 4:40 AM EDT [facility] Total Calcium, Plasma 7.7(L) 8.9 - 10.2 mg/dL 03/30/2025 4:40 AM EDT [facility] Phosphorus, Plasma 3.0 2.5 - 4.5 mg/dL 03/30/2025 4:40 AM EDT [facility] Albumin, Plasma 3.2(L) 3.5 - 5.2 g/dL 03/30/2025 4:40 AM EDT [facility] eGFRcr 51.0 mL/min/1.7 3m*2 03/30/2025 4:40 AM EDT [facility] Comment:Reported eGFRcr in m L/min/1.73m2 is based the CKD-EPI 2020 equation that does not use a race coefficient. Blood Arterial blood specimen / Unknown Arterial Puncture / Unknown 03/30/2025 4:05 AM EDT 03/30/2025 4:11 AM EDT Ирина Lopez MD LAB BLOOD ORDERABLES Final R esult Performing Organization Address City/[facility]/ZIP Co de Phone Number [facility] [address] [place] [address] * (ABNORMAL) Magnesium (03/30/2025 4:05 AM EDT) Magnesium, Plasma 1.4(L) 1.9 - 2.4 mg/dL 03/30/2025 4:40 AM EDT [facility] Blood Arterial blood specimen / Unknown Arterial Puncture / Unknown 03/30/2025 4:05 AM EDT 03/30/2025 4:11 AM EDT Ирина Lopez MD LAB BLOOD ORDERABLES Final R esult [facility] [address] [place] [address] * (ABNORMAL) CBC W/O Differential (03/30/2025 4:05 AM EDT) WBC Count 9.64 3.70 - 10.30 10*3/uL LAB HEMATOLOGY METHOD 03/30/2025 4:19 AM EDT [facility] RBC Count 2.91(L) 4.60 - 6.10 10*6/uL LAB HEMATOLOGY METHOD 03/30/2025 4:19 AM EDT [facility] HGB 8.8(L) 13.7 - 17.5 g/dL LAB HEMATOLOGY METHOD 03/30/2025 4:19 AM EDT [facility] HCT 25.8(L) 40.0 - 51.0 % LAB HEMATOLOGY METHOD 03/30/2025 4:19 AM EDT [facility] Platelet Count 190 155 - 369 10*3/uL LAB HEMATOLOGY METHOD 03/30/2025 4:19 AM EDT [facility] MCV 89 79 - 98 fL LAB HEMATOLOGY METHOD 03/30/2025 4:19 AM EDT [facility] MCH 30.2 26.0 - 32.0 pg LAB HEMATOLOGY METHOD 03/30/2025 4:19 AM EDT [facility] MCHC 34.1 30.7 - 35.5 g/dL LAB HEMATOLOGY METHOD 03/30/2025 4:19 AM EDT [facility] RDW 12.6 11.5 - 14.5 % LAB HEMATOLOGY METHOD 03/30/2025 4:19 AM EDT [facility] MPV 9.6 8.8 - 12.5 fL LAB HEMATOLOGY METHOD 03/30/2025 4:19 AM EDT [facility] nRBC 0.0 <=0.0 per 100 WBCs LAB HEMATOLOGY METHOD 03/30/2025 4:19 AM EDT [facility] Blood Arterial blood specimen / Unknown Arterial Puncture / Unknown 03/30/2025 4:05 AM EDT 03/30/2025 4:11 AM EDT us Ирина Lopez MD LAB BLOOD ORDERABLES Final R esult [facility] [address] [place] [address] * XR Chest 1 View (03/30/2025 1:35 [...] - 1.20 mg/dL 03/29/2025 8:39 PM EDT [facility] eGFRcr 70.2 mL/min/1.7 3m*2 03/29/2025 8:39 PM EDT [facility] Comment:Reported eGFRcr in m L/min/1.73m2 is based the CKD-EPI 2020 equation that does not use a race coefficient. Blood Arterial blood specimen / Unknown Arterial Puncture / Unknown 03/29/2025 7:58 PM EDT 03/29/2025 8:05 PM EDT рИина Lopez MD LAB BLOOD ORDERABLES Final R esult [facility] [address] [place] [address] * (ABNORMAL) Renal Function Panel, Plasma (03/29/2025 7:58 PM EDT) Glucose, Plasma 183(H) 74 - 99 mg/dL 03/29/2025 8:39 PM EDT [facility] BUN, Plasma 13 8 - 23 mg/dL 03/29/2025 8:39 PM EDT [facility] Creatinine, Plasma 1.08 0.70 - 1.20 mg/dL 03/29/2025 8:39 PM EDT [facility] BUN/Creatinine Ratio 12 03/29/2025 8:39 PM EDT [facility] Sodium, Plasma 136 136 - 145 mmol/L 03/29/2025 8:39 PM EDT [facility] Potassium, Plasma 4.4 3.6 - 4.9 mmol/L 03/29/2025 8:39 PM EDT [facility] Chloride, Plasma 104 97 - 107 mmol/L 03/29/2025 8:39 PM EDT [facility] CO2, Plasma 21(L) 22 - 29 mmol/L 03/29/2025 8:39 PM EDT [facility] Anion Gap 11 6 - 16 mmol/L 03/29/2025 8:39 PM EDT [facility] Total Calcium, Plasma 7.9(L) 8.9 - 10.2 mg/dL 03/29/2025 8:39 PM EDT [facility] Phosphorus, Plasma 2.9 2.5 - 4.5 mg/dL 03/29/2025 8:39 PM EDT [facility] Albumin, Plasma 3.2(L) 3.5 - 5.2 g/dL 03/29/2025 8:39 PM EDT [facility] eGFRcr 70.2 mL/min/1.7 3m*2 03/29/2025 8:39 PM EDT [facility] Comment:Reported eGFRcr in m L/min/1.73m2 is based the CKD-EPI 2020 equation that does not use a race coefficient. Blood Arterial blood specimen / Unknown Arterial Puncture / Unknown 03/29/2025 7:58 PM EDT 03/29/2025 8:05 PM EDT us Ирина Lopez MD LAB BLOOD ORDERABLES Final R esult [facility] [address] [place] [address] * (ABNORMAL) Magnesium, Plasma (03/29/2025 7:58 PM EDT) Magnesium, Plasma 1.3(L) 1.9 - 2.4 mg/dL 03/29/2025 8:39 PM EDT [facility] Blood Arterial blood specimen / Unknown Arterial Puncture / Unknown 03/29/2025 7:58 PM EDT 03/29/2025 8:05 PM EDT us Ирина Lopez MD LAB BLOOD ORDERABLES Final R esult Performing Organization Address City/[facility]/ZIP Co de Phone Number [facility] [address] [place] [address] * Fibrinogen (03/29/2025 7:58 PM EDT) Fibrinogen, Quantitative (Clottable) 294 208 - 459 mg/dL LAB COAGULATION METHOD 03/29/2025 8:38 PM EDT [facility] [facility] Blood Arterial blood specimen / Unknown Arterial Puncture / Unknown 03/29/2025 7:58 PM EDT 03/29/2025 8:05 PM EDT us Kiana Gusman CRNA LAB BLOOD ORDERABLES Final R esult [facility] [address] [place] [address] * Protime-INR (03/29/2025 7:58 PM EDT) Prothrombin Time 13.8 12.0 - 14.3 sec LAB COAGULATION METHOD 03/29/2025 8:38 PM EDT [facility] INR 1.0 0.9 - 1.1 LAB COAGULATION METHOD 03/29/2025 8:38 PM EDT [facility] Blood Arterial blood specimen / Unknown Arterial Puncture / Unknown 03/29/2025 7:58 PM EDT 03/29/2025 8:05 PM EDT Narrative [facility] - 03/29/2025 8:38 PM EDT OPTIMAL INR RANGES FOR PATIENT ON ORAL ANTICOAGULANT THERAPY Prevention of venous thromboembolism INR 2.0 to 3.0 In patients with heart disease: Atrial fibrillation INR 2.0 to 3.0 Valvular heart disease INR 2.0 to 3.0 Tissue heart valves INR 2.0 to 3.0 Mechanical prosthetic valves INR 2.5 to 3.5 Prevention of recurrent NV INR 2.5 to 3.5 us Kiana Gusman CRNA LAB BLOOD ORDERABLES Final R esult [facility] [address] [place] [address] * (ABNORMAL) CBC and differential (03/29/2025 7:58 PM EDT) WBC Count 8.18 3.70 - 10.30 10*3/uL LAB HEMATOLOGY METHOD 03/29/2025 8:29 PM EDT [facility] RBC Count 3.11(L) 4.60 - 6.10 10*6/uL LAB HEMATOLOGY METHOD 03/29/2025 8:29 PM EDT [facility] HGB 9.2(L) 13.7 - 17.5 g/dL LAB HEMATOLOGY METHOD 03/29/2025 8:29 PM EDT [facility] HCT 27.7(L) 40.0 - 51.0 % LAB HEMATOLOGY METHOD 03/29/2025 8:29 PM EDT [facility] Platelet Count 174 155 - 369 10*3/uL LAB HEMATOLOGY METHOD 03/29/2025 8:29 PM EDT [facility] MCV 89 79 - 98 fL LAB HEMATOLOGY METHOD 03/29/2025 8:29 PM EDT [facility] MCH 29.6 26.0 - 32.0 pg LAB HEMATOLOGY METHOD 03/29/2025 8:29 PM EDT [facility] MCHC 33.2 30.7 - 35.5 g/dL LAB HEMATOLOGY METHOD 03/29/2025 8:29 PM EDT [facility] RDW 12.6 11.5 - 14.5 % LAB HEMATOLOGY METHOD 03/29/2025 8:29 PM EDT [facility] MPV 9.3 8.8 - 12.5 fL LAB HEMATOLOGY METHOD 03/29/2025 8:29 PM EDT [facility] nRBC 0.0 <=0.0 per 100 WBCs LAB HEMATOLOGY METHOD 03/29/2025 8:29 PM EDT [facility] Differential Type Automated LAB HEMATOLOGY METHOD 03/29/2025 8:29 PM EDT [facility] Neutrophils % 86 % LAB HEMATOLOGY METHOD 03/29/2025 8:29 PM EDT [facility] Lymphocytes % 9 % LAB HEMATOLOGY METHOD 03/29/2025 8:29 PM EDT [facility] Monocytes % 5 % LAB HEMATOLOGY METHOD 03/29/2025 8:29 PM EDT [facility] Eosinophils % 0 % LAB HEMATOLOGY METHOD 03/29/2025 8:29 PM EDT [facility] Basophils % 0 % LAB HEMATOLOGY METHOD 03/29/2025 8:29 PM EDT [facility] Immature Granulocytes % 0 % LAB HEMATOLOGY METHOD 03/29/2025 8:29 PM EDT [facility] Neutrophils Absolute 7.00(H) 1.60 - 6.10 10*3/uL LAB HEMATOLOGY METHOD 03/29/2025 8:29 PM EDT [facility] Lymphocytes Absolute 0.71(L) 1.20 - 3.90 10*3/uL LAB HEMATOLOGY METHOD 03/29/2025 8:29 PM EDT [facility] Monocytes Absolute 0.40 0.30 - 0.90 10*3/uL LAB HEMATOLOGY METHOD 03/29/2025 8:29 PM EDT [facility] Eosinophils Absolute 0.02 0.00 - 0.50 10*3/uL LAB HEMATOLOGY METHOD 03/29/2025 8:29 PM EDT [facility] Basophils Absolute 0.02 0.00 - 0.10 10*3/uL LAB HEMATOLOGY METHOD 03/29/2025 8:29 PM EDT [facility] Immature Granulocytes Absolute 0.03 0.00 - 0.06 10*3/uL LAB HEMATOLOGY METHOD 03/29/2025 8:29 PM EDT [facility] Blood Arterial blood specimen / Unknown Arterial Puncture / Unknown 03/29/2025 7:58 PM EDT 03/29/2025 8:04 PM EDT [facility] - 03/29/2025 8:29 PM EDT Therapeutic decision making should be based on absolute values, rather than percentages. us Kiana Gusman CRNA LAB BLOOD ORDERABLES Final R esult [facility] [address] [place] [address] * (ABNORMAL) POCT glucose meter (03/29/2025 7:43 [...] Comment 03/29/2025 7:45 PM EDT [facility] Cistern Room Working Supervisor ID Radha Slater 03/29/20 7:45 PM EDT [facility] Device ID [id number] 03/29/2025 7:45 PM EDT [facility] Specimen Type POC Capillary 03/29/2025 7:45 PM EDT [facility] Blood Capillary blood specimen / Unknown 03/29/2025 7:43 PM EDT 03/29/2025 7:45 PM EDT us Ирина Lopez MD LAB POINT OF CARE TE ST DOCKED DEVICE UNSOLICITED RESULTS Final Result [facility] [address] [place] [address] * Surgical Pathology Exam (03/29/2025 5:10 PM EDT) Case Report Surgical Pathology Case: [id number] Authorizing Provider: Ирина Lopez MD Collected: 03/29/2025 1716 Ordering Location: [facility] A OPERATING ROOM Received: 03/30/2025 0751 Pathologist: Cindy Miller MD Intraop: Elizabeth Gibbs [...] (specify site), lipoma 5 2:45 PM EDT [facility] Final Diagnosis A. LUNG, BRONCHIAL [...] EXCISION: - LIPOMA. 5 2:45 PM EDT [facility] at 1445 EDT Synoptic Checklist LUNG LUNG [...] pN Category: pN0 5 2:45 PM EDT [facility] Clinical Information Non-small cell cancer of left lung 5 2:45 PM EDT [facility] Intraoperative Consultation A. BRONCHIAL MARGIN FSA: No tumor seen. Todd Gibbs MD. 03/29/2025 @ 1745. 5 2:45 PM EDT [facility] Special and Immunohistochemical Stains Special Stain: [id number] Elastic Trichrome: Demonstrates visceral pleural invasion F8-2 Elastic Trichrome: Demonstrates visceral pleural invasion All controls show appropriate reactivity. All immunohistochemis try, in situ hybridization, and histochemical tests were developed by and are performed at the [facility], [address] [place] [address]. All tests reported here, except those addressing [...] 0.3-0.6 cm in greatest dimension are identified. Wellness Trainer sections are submitted as follows: F1: Bronchial [...] areas of hemorrhage or necrosis are identified. Wellness Trainer sections are submitted in cassettes G1-G3. Cold Time: 13h 05m SWATI Wong (ASCP) 5 2:45 PM EDT [facility] Note: A resident was involved in the service. I attest I examined the relevant preparations for the specimens and confirmed the diagnosis or interpretation. 5 2:45 PM EDT [facility] Tissue Structure of lymph node [...] MD LAB PATHOLOGY ORDERABLES Fin al Result [facility] [address] [place] [address] * (ABNORMAL) Blood gas panel, arterial (03/29/2025 4:05 PM EDT) pH, Arterial 7.38 7.31 - 7.42 LAB HEMATOLOGY METHOD 03/29/2025 4:13 PM EDT [facility] pCO2, Arterial 45 32 - 45 mmHg LAB HEMATOLOGY METHOD 03/29/2025 4:13 PM EDT [facility] pO2, Arterial 216 >70 mmHg LAB HEMATOLOGY METHOD 03/29/2025 4:13 PM EDT [facility] SO2, Measured, Arterial 100(H) 94 - 98 % LAB HEMATOLOGY METHOD 03/29/2025 4:13 PM EDT [facility] Base Excess, Arterial 1.2 -2.0 - 3.0 mmol/L LAB HEMATOLOGY METHOD 03/29/2025 4:13 PM EDT [facility] Bicarbonate, Calculated, Arterial 27(H) 22 - 26 mmol/L LAB HEMATOLOGY METHOD 03/29/2025 4:13 PM EDT [facility] Hematocrit, Whole Blood 31.6(L) 40.0 - 51.0 % LAB HEMATOLOGY METHOD 03/29/2025 4:13 PM EDT [facility] Sodium, Whole Blood 138 136 - 145 mmol/L LAB HEMATOLOGY METHOD 03/29/2025 4:13 PM EDT [facility] Potassium, Whole Blood 3.8 3.6 - 4.9 mmol/L LAB HEMATOLOGY METHOD 03/29/2025 4:13 PM EDT [facility] Chloride, Whole Blood 103 97 - 107 mmol/L LAB HEMATOLOGY METHOD 03/29/2025 4:13 PM EDT [facility] Glucose, Whole Blood 123(H) 74 - 99 mg/dL LAB HEMATOLOGY METHOD 03/29/2025 4:13 PM EDT [facility] Ionized Calcium, Whole Blood 4.4(L) 4.6 - 5.1 mg/dL LAB HEMATOLOGY METHOD 03/29/2025 4:13 PM EDT [facility] Lactate, Arterial, Whole Blood 0.8 0.5 - 1.6 mmol/L LAB HEMATOLOGY METHOD 03/29/2025 4:13 PM EDT [facility] Blood Arterial blood specimen / Unknown 03/29/2025 4:05 PM EDT 03/29/2025 4:11 PM EDT Comment:Pre-op diagnosis: Non-small cell cancer of left lung us Ирина Lopez MD LAB BLOOD ORDERABLES Final R esult [facility] [address] [place] [address] * APTT (03/29/2025 4:04 PM EDT) aPTT 28 25 - 35 sec LAB COAGULATION METHOD 03/29/2025 4:39 PM EDT [facility] Blood Arterial blood specimen / Unknown 03/29/2025 4:04 PM EDT 03/29/2025 4:18 PM EDT Comment:Pre-op diagnosis: Non-small cell cancer of left lung us Ирина Lopez MD LAB BLOOD ORDERABLES Final R esult Performing Organization Address [facility]/ZIP Co de Phone Number [facility] [address] [place] [address] * Prothrombin Time/INR (03/29/2025 4:04 PM EDT) Prothrombin Time 13.4 12.0 - 14.3 sec LAB COAGULATION METHOD 03/29/2025 4:39 PM EDT [facility] INR 1.0 0.9 - 1.1 LAB COAGULATION METHOD 03/29/2025 4:39 PM EDT [facility] Blood Arterial blood specimen / Unknown 03/29/2025 4:04 PM EDT 03/29/2025 4:18 PM EDT Comment:Pre-op diagnosis: Non-small cell cancer of left lung Narrative [facility] - 03/29/2025 4:39 PM EDT OPTIMAL INR RANGES FOR PATIENT ON ORAL ANTICOAGULANT THERAPY Prevention of venous thromboembolism INR 2.0 to 3.0 In patients with heart disease: Atrial fibrillation INR 2.0 to 3.0 Valvular heart disease INR 2.0 to 3.0 Tissue heart valves INR 2.0 to 3.0 Mechanical prosthetic valves INR 2.5 to 3.5 Prevention of recurrent NV INR 2.5 to 3.5 Result [facility] Ирина Lopez MD LAB BLOOD ORDERABLES Final R ult Performing Organization Address [facility] Co de Phone Number [facility] [address] [place] [address] * Fibrinogen, Quantitative (Clottable) (03/29/2025 4:04 PM EDT) Fibrinogen, Quantitative (Clottable) 336 208 - 459 mg/dL LAB COAGULATION METHOD 03/29/2025 4:39 PM EDT [facility] Blood Arterial blood specimen / Unknown 03/29/2025 4:04 PM EDT 03/29/2025 4:18 PM EDT Comment:Pre-op diagnosis: Non-small cell cancer of left lung Ирина Lopez MD LAB BLOOD ORDERABLES Final R esult [facility] [address] [place] [address] * (ABNORMAL) CBC W/O Differential (03/29/2025 4:04 PM EDT) WBC Count 3.70 3.70 - 10.30 10*3/uL LAB HEMATOLOGY METHOD 03/29/2025 4:28 PM EDT [facility] RBC Count 3.52(L) 4.60 - 6.10 10*6/uL LAB HEMATOLOGY METHOD 03/29/2025 4:28 PM EDT [facility] HGB 10.5(L) 13.7 - 17.5 g/dL LAB HEMATOLOGY METHOD 03/29/2025 4:28 PM EDT [facility] HCT 31.1(L) 40.0 - 51.0 % LAB HEMATOLOGY METHOD 03/29/2025 4:28 PM EDT [facility] Platelet Count 184 155 - 369 10*3/uL LAB HEMATOLOGY METHOD 03/29/2025 4:28 PM EDT [facility] MCV 88 79 - 98 fL LAB HEMATOLOGY METHOD 03/29/2025 4:28 PM EDT [facility] MCH 29.8 26.0 - 32.0 pg LAB HEMATOLOGY METHOD 03/29/2025 4:28 PM EDT [facility] MCHC 33.8 30.7 - 35.5 g/dL LAB HEMATOLOGY METHOD 03/29/2025 4:28 PM EDT [facility] RDW 12.6 11.5 - 14.5 % LAB HEMATOLOGY METHOD 03/29/2025 4:28 PM EDT [facility] MPV 9.4 8.8 - 12.5 fL LAB HEMATOLOGY METHOD 03/29/2025 4:28 PM EDT [facility] nRBC 0.0 <=0.0 per 100 WBCs LAB HEMATOLOGY METHOD 03/29/2025 4:28 PM EDT [facility] Blood Arterial blood specimen / Unknown 03/29/2025 4:04 PM EDT 03/29/2025 4:20 PM EDT Comment:Pre-op diagnosis: Non-small cell cancer of left lung us Ирина Lopez MD LAB BLOOD ORDERABLES Final R esult [facility] [address] [place] [address] * (ABNORMAL) Blood gas panel, arterial (03/29/2025 2:29 PM EDT) pH, Arterial 7.39 7.31 - 7.42 LAB HEMATOLOGY METHOD 03/29/2025 2:35 PM EDT [facility] pCO2, Arterial 44 32 - 45 mmHg LAB HEMATOLOGY METHOD 03/29/2025 2:35 PM EDT [facility] pO2, Arterial 190 >70 mmHg LAB HEMATOLOGY METHOD 03/29/2025 2:35 PM EDT [facility] SO2, Measured, Arterial 100(H) 94 - 98 % LAB HEMATOLOGY METHOD 03/29/2025 2:35 PM EDT [facility] Base Excess, Arterial 1.5 -2.0 - 3.0 mmol/L LAB HEMATOLOGY METHOD 03/29/2025 2:35 PM EDT [facility] Bicarbonate, Calculated, Arterial 27(H) 22 - 26 mmol/L LAB HEMATOLOGY METHOD 03/29/2025 2:35 PM EDT [facility] Hematocrit, Whole Blood 32.4(L) 40.0 - 51.0 % LAB HEMATOLOGY METHOD 03/29/2025 2:35 PM EDT [facility] Sodium, Whole Blood 139 136 - 145 mmol/L LAB HEMATOLOGY METHOD 03/29/2025 2:35 PM EDT [facility] Potassium, Whole Blood 3.6 3.6 - 4.9 mmol/L LAB HEMATOLOGY METHOD 03/29/2025 2:35 PM EDT [facility] Chloride, Whole Blood 104 97 - 107 mmol/L LAB HEMATOLOGY METHOD 03/29/2025 2:35 PM EDT [facility] Glucose, Whole Blood 96 74 - 99 mg/dL LAB HEMATOLOGY METHOD 03/29/2025 2:35 PM EDT [facility] Ionized Calcium, Whole Blood 4.4(L) 4.6 - 5.1 mg/dL LAB HEMATOLOGY METHOD 03/29/2025 2:35 PM EDT [facility] Lactate, Arterial, Whole Blood 1.4 0.5 - 1.6 mmol/L LAB HEMATOLOGY METHOD 03/29/2025 2:35 PM EDT [facility] Blood Arterial blood specimen / Unknown 03/29/2025 2:29 PM EDT 03/29/2025 2:34 PM EDT Comment:Pre-op diagnosis: Non-small cell cancer of left lung us Ирина Lopez MD LAB BLOOD ORDERABLES Final R esult Performing Organization Address City/[facility]/ZIP Co de Phone Number [facility] [address] [place] [address] * (ABNORMAL) POCT glucose meter (03/29/2025 12:48 PM EDT) Pathologist [facility] POCT Glucose 100(H) 74 - 99 mg/dL [...] Comment 03/29/2025 12:50 PM EDT [facility] Cistern Room Working Supervisor ID Rosalie Cuevas 03/29/20 12:50 PM EDT [facility] Device ID [id number] 03/29/2025 12:50 PM EDT [facility] Specimen Type POC Venous 03/29/2025 12:50 PM EDT [facility] Blood Venous blood specimen / Unknown 03/29/2025 12:48 PM EDT 03/29/2025 12:50 PM EDT us Ирина Lopez MD LAB POINT OF CARE TE ST DOCKED DEVICE UNSOLICITED RESULTS Final Result Performing Organization Address City/[facility]/ZIP Co de Phone Number [facility] [address] [place] [address] * (ABNORMAL) Blood gas, venous (03/29/2025 12:27 PM EDT) Pathologist [facility] pH, Venous 7.36 7.32 - 7.43 LAB HEMATOLOGY METHOD 03/29/2025 12:51 PM EDT [facility] pCO2, Venous 49 40 - 55 mmHg LAB HEMATOLOGY METHOD 03/29/2025 12:51 PM EDT [facility] pO2, Venous 54(H) 25 - 40 mmHg LAB HEMATOLOGY METHOD 03/29/2025 12:51 PM EDT [facility] SO2, Measured, Venous 87(H) 65 - 80 % LAB HEMATOLOGY METHOD 03/29/2025 12:51 PM EDT [facility] Base Excess, Venous 1.7 -2.0 - 3.0 mmol/L LAB HEMATOLOGY METHOD 03/29/2025 12:51 PM EDT [facility] Bicarbonate, Calculated, Venous 28(H) 22 - 26 mmol/L LAB HEMATOLOGY METHOD 03/29/2025 12:51 PM EDT [facility] Hematocrit, Whole Blood 39.2(L) 40.0 - 51.0 % LAB HEMATOLOGY METHOD 03/29/2025 12:51 PM EDT [facility] Sodium, Whole Blood 140 136 - 145 mmol/L LAB HEMATOLOGY METHOD 03/29/2025 12:51 PM EDT [facility] Potassium, Whole Blood 4.0 3.6 - 4.9 mmol/L LAB HEMATOLOGY METHOD 03/29/2025 12:51 PM EDT [facility] Chloride, Whole Blood 103 97 - 107 mmol/L LAB HEMATOLOGY METHOD 03/29/2025 12:51 PM EDT [facility] Glucose, Whole Blood 97 74 - 99 mg/dL LAB HEMATOLOGY METHOD 03/29/2025 12:51 PM EDT [facility] Lactate, Venous, Whole Blood 1.6 0.5 - 2.2 mmol/L LAB HEMATOLOGY METHOD 03/29/2025 12:51 PM EDT [facility] Ionized Calcium, Whole Blood 4.5(L) 4.6 - 5.1 mg/dL LAB HEMATOLOGY METHOD 03/29/2025 12:51 PM EDT [facility] Blood Venous blood specimen / Unknown Venipuncture / Unknown 03/29/2025 12:27 PM EDT 03/29/2025 12:49 PM EDT us Robert Santos MD LAB BLOOD ORDERABLES Final Resu lt [facility] [address] [place] [address] * Type and Screen (03/29/2025 12:27 PM [...] TEST ORDERABLES Final Result Performing Organization Address [facility] Co de Phone Number BLOOD BANK [address] [place] [address], documented in this encounter Visit Diagnoses Diagnosis [...] Corral RN) [phone] (Given - Provider: Carmella Iinguez RN) [phone] (Given - Provider: Carmella Iniguez [...] documented as of this encounter Care Teams Maintenance Technician 2Nd Shift Relationship Specialty Start Date End Date Casa Phillips MD [address] [place] [id number] PCP - General 02/22/25 Forrest Nickerson APRN [address] [place] [id number] 03/06/23 documented as of this encounter
--- OUTSIDE RECORDS SUMMARY | 2025-03-29 12:10 | XMS_ITS | Encounter Summary ---
Author Organization [facility] Address [address] [place] [address] Care Team Providers Care Supervisor Vat House Name Role Phone Forrest Nickerson DIGITAL CARTOGRAPHER Unavailable [phone] Casa Phillips MD Primary Care Provider [phone] Reason for Visit * Auth/Cert (Routine) Specialty Diagnoses / Procedures Referred By Contac t Referred To Contact Diagnoses Non-small cell cancer of left lung (CMS/HCC) Non-small cell cancer of left lung Procedures SC THORACOSCOPY SURG LOBECTOMY LEFT VATS LOBECTOMY Ирина Lopez MD [address] [address] Phone: tel: fax: [facility] [address] [place] [address] Phone: tel: Referral ID Status Reason Start Date Expiration Date Visits Re quested Visits Authorized [id number] 1 1 Encounter Details Date Type Department Care Team (Late st Contact Info) Description 03/29/2025 12:10 PM EDT - 03/29/2025 4:50 PM EDT Surgery [facility] [address] [place] [address] Ирина Lopez MD [address] [address] LEFT VATS LOBECTOMY coverted to open, Left thoracotomy, with medistinal lymph node disection and lypoma [49780 (CPT )] Surgery Details Date/Time Status Location [...] General Class II/ Clean Contaminated Peds scope [id number] passed Surgeon Surgeon Role Service Panel Carl [...] Clinic discharge # - For urgent questions/concerns: [facility] hotline: , option 4 - ask for the thoracic surgeon release of information clerk. documented in this encounter Medications at Time [...] from the original note were not included. [address]607 Surgery for Lung Cancer Surgery can be [...] holidays. Last Reviewed Date: 2023 00:00:00 ?? [id number] [employer]. All rights reserved. This information is not intended as a substitute for professional medical care. Always follow your healthcare professional's instructions. * Neida OnALEXIS - Chester Cuevas RN - 04/04/2025 10:29 AM EDT Images from the original note were not included. [address]01 Thoracotomy Thoracotomy is surgery used to diagnose [...] . Last Reviewed Date: 2024 00:00:00 ?? [id number] [employer]. All rights reserved. This information is not intended as a substitute for professional medical care. Always follow your healthcare professional's instructions. * Neida Garland - Chester Cuevas RN - 04/04/2025 10:29 AM EDT Images from the original note were not included. [address] Lung Cancer: Video-Assisted and Robotic-Assisted Thoracic Surgery [...] you will hurt less after surgery. ? [facility]. You can likely go home [...] surgery because the cuts are small. ? [facility] stay. You can likely go home [...] of surgery you need. Make sure the [facility] have experience in VATS or RATS. [...] future. Last Reviewed Date: 2023 00:00:00 ?? [id number] [employer]. All rights reserved. This information is not intended as a substitute for professional medical care. Always follow your healthcare professional's instructions. * Neida Garland - Chester Cuevas RN - 04/04/2025 10:24 AM EDT Images from the original note were not included. [id number] Tamsulosin Brand Name(s): Flomax??, Su?? (as a [...] be awakened, immediately call emergency services at 481. Symptoms of overdose may include: ? dizziness [...] of all of the prescription and nonprescription (pukj-fci-arzpuxu) medicines you are taking, as well as [...] or pharmacist about specific clinical use. The [employer] [employer] represents that the information provided hereunder was formulated with a reasonable standard of care, and in conformity with professional standards in the field. The [employer] [employer] makes no representations or warranties, express or implied, including, but not limited to, any implied warranty of merchantability and/or fitness for a particular purpose, with respect to such information and specifically disclaims all such warranties. Users are advised that decisions regarding drug therapy are complex medical decisions requiring the independent, informed decision of an appropriate health critical care technician, and the information is provided for informational purposes only. The entire monograph for a drug should be reviewed for a thorough understanding of the drug's actions, uses and side effects. The [employer] does not endorse or recommend the use of any drug.The information is not a substitute for medical care. AHFS?? Patient Medication Information?. ?? Copyright, 2023. The [employer]??, [address], [address], [place], [place]. All Rights Reserved. Duplication for commercial use must be authorized by [facility]. Selected Revisions: October 28, 2017. AHFS?? Patient Medication Information?. ?? Copyright, 2024 * Chester Lyons RN - 04/04/2025 10:24 AM EDT Images from the original note were not included. [id number] Senna Brand Name(s): Black Draught??, Ex-Lax??, Baca's [...] and out of their sight and reach. [email or web address] Unneeded medications should be disposed of in [...] of all of the prescription and nonprescription (aoyl-dfp-nyqojlt) medicines you are taking, as well as [...] or pharmacist about specific clinical use. The [employer] [employer] represents that the information provided hereunder was formulated with a reasonable standard of care, and in conformity with professional standards in the field. The [employer] [employer] makes no representations or warranties, express or implied, including, but not limited to, any implied warranty of merchantability and/or fitness for a particular purpose, with respect to such information and specifically disclaims all such warranties. Users are advised that decisions regarding drug therapy are complex medical decisions requiring the independent, informed decision of an appropriate health critical care technician, and the information is provided for informational purposes only. The entire monograph for a drug should be reviewed for a thorough understanding of the drug's actions, uses and side effects. The [employer] [employer] does not endorse or recommend the use of any drug.The information is not a substitute for medical care. AHFS?? Patient Medication Information?. ?? Copyright, 2023. The [employer]??, [address], [address], [place], [place]. All Rights Reserved. Duplication for commercial use must be authorized by [facility]. Selected Revisions: April 02, 2024. AHFS?? Patient Medication Information?. ?? Copyright, 2024 * Chester Lyons RN - 04/04/2025 10:24 AM EDT Images from the original note were not included. [id number] Polyethylene Glycol 3350 Brand Name(s): MiraLax?? PEG [...] 991. Symptoms of overdose may include: ? diarrhea ? thirst ? confusion ? seizure What OTHER INFORMATION should I know? Keep all appointments with your doctor. Do not let anyone else take your medication. Ask your pharmacist any questions you have about refilling your prescription. It is important for you to keep a written list of all of the prescription and nonprescription (gbkk-asv-lolxylg) medicines you are taking, as well as [...] or pharmacist about specific clinical use. The [employer] represents that the information provided hereunder was formulated with a reasonable standard of care, and in conformity with professional standards in the field. The [employer] makes no representations or warranties, express or implied, including, but not limited to, any implied warranty of merchantability and/or fitness for a particular purpose, with respect to such information and specifically disclaims all such warranties. Users are advised that decisions regarding drug therapy are complex medical decisions requiring the independent, informed decision of an appropriate health critical care technician, and the information is provided for informational purposes only. The entire monograph for a drug should be reviewed for a thorough understanding of the drug's actions, uses and side effects. The [employer] does not endorse or recommend the use of any drug.The information is not a substitute for medical care. AHFS?? Patient Medication Information?. ?? Copyright, 2023. The [employer]??, [address], [address], [place], [place]. All Rights Reserved. Duplication for commercial use must be authorized by [facility]. Selected Revisions: December 27, 2015. AHFS?? Patient Medication Information?. ?? Copyright, 2024 * Neida Garland - Chester Cuevas RN - 04/04/2025 10:24 AM EDT 1087 Oxycodone Oral Tablet, Immediate Release Brand Names: Oxaydo, Roxicodone What is this medicine? Oxycodone (qi-e-QDW-done) is an opioid pain reliever. It is used to treat moderate to severe pain. What should I tell my health care provider before I take this medicine? They need to know if you have any of these conditions: ? [place]'s disease ? Brain tumor or head injury [...] a special medication guide each time you pick up truck driver this medicine. ? Overdosage: Taking too much [...] should report to your doctor or health critical care technician as soon as possible: ? allergic reactions [...] attention (report to your doctor or health critical care technician if they continue or are bothersome): ? constipation ? dry mouth ? itching ? nausea, vomiting ? upset stomach This list may not describe all possible side effects. Call your doctor for medical advice about side effects. You may report side effects to FDA at 2-359-LNC-6262. Where should I keep my medicine? This [...] location. To find a disposal location, visit [employer]/[facility]/[place]. If you cannot take unused medicine to [...] from the original note were not included. [id number] Methocarbamol Brand Name(s): Robaxin??; also available generically [...] be awakened, immediately call emergency services at 700. What OTHER INFORMATION should I know? Keep all appointments with your doctor. Do not let anyone else take your medication. Ask your pharmacist any questions you have about refilling your prescription. It is important for you to keep a written list of all of the prescription and nonprescription (xbtd-bwo-jphaeei) medicines you are taking, as well as [...] or pharmacist about specific clinical use. The [employer] [employer] represents that the information provided hereunder was formulated with a reasonable standard of care, and in conformity with professional standards in the field. The [place] [employer] makes no representations or warranties, express or implied, including, but not limited to, any implied warranty of merchantability and/or fitness for a particular purpose, with respect to such information and specifically disclaims all such warranties. Users are advised that decisions regarding drug therapy are complex medical decisions requiring the independent, informed decision of an appropriate health critical care technician, and the information is provided for informational purposes only. The entire monograph for a drug should be reviewed for a thorough understanding of the drug's actions, uses and side effects. The [place] [employer] does not endorse or recommend the use of any drug.The information is not a substitute for medical care. AHFS?? Patient Medication Information?. ?? Copyright, 2023. The [employer] [employer]??, [address], [address], [place], [place]. All Rights Reserved. Duplication for commercial use must be authorized by [facility]. Selected Revisions: May 28, 2017. AHFS?? Patient Medication Information?. ?? Copyright, 2024 * Chester Lyons RN - 04/04/2025 10:23 AM EDT Images from the original note were not included. [id number] Acetaminophen Brand Name(s): Actamin??, Feverall??, Panadol??, Tempra Quicklets??, Tylenol??, Dayquil?? (as a combination product containing Acetaminophen, Dextromethorphan, Pseudoephedrine), NyQuil Cold/Flu Relief?? (as a combination product containing Acetaminophen, Dextromethorphan, Doxylamine), Percocet?? (as a combination product containing Acetaminophen, Oxycodone) APAP, J-lldhvc-xprv-aminophenol, Paracetamol ?? This branded product is no [...] or syringe provided by the financial services counselor to measure each dose of the solution [...] and out of their sight and reach. [email or web address] Unneeded medications should be disposed of in [...] of all of the prescription and nonprescription (jayd-fvr-cgbqxrg) medicines you are taking, as well as [...] or pharmacist about specific clinical use. The [place] [employer] represents that the information provided hereunder was formulated with a reasonable standard of care, and in conformity with professional standards in the field. The [employer] [employer] makes no representations or warranties, express or implied, including, but not limited to, any implied warranty of merchantability and/or fitness for a particular purpose, with respect to such information and specifically disclaims all such warranties. Users are advised that decisions regarding drug therapy are complex medical decisions requiring the independent, informed decision of an appropriate health critical care technician, and the information is provided for informational purposes only. The entire monograph for a drug should be reviewed for a thorough understanding of the drug's actions, uses and side effects. The [employer] [employer] does not endorse or recommend the use of any drug.The information is not a substitute for medical care. AHFS?? Patient Medication Information?. ?? Copyright, 2023. The [employer]??, [address], [address], [place], [place]. All Rights Reserved. Duplication for commercial use must be authorized by [facility]. Selected Revisions: June 28, 2023. AHFS?? Patient Medication Information?. ?? Copyright, 2024 * Discharge Summary - FrankEverett RenettaDO - 04/04/2025 9:13 AM EDT Hospitalization Admit Date/Time: 03/29/2025 9:43 AM Admitting Attending: Ирина Lopez Discharge Date: 04/04/2025 Discharge Attending Physician: Ирина Lopez MD PCP name and Address: Casa Phillips MD [address] [place] [address] / [facility] [address] Referring provider name and address: No referring [...] Medications These medications were sent to [facility] [place], [place] - [address] [facility] [address] [employer] [facility] [place] [id number] acetaminophen 500 MG tablet methocarbamol 500 MG [...] Clinic discharge # - For urgent questions/concerns: [facility] hotline: , option 4 - ask for the thoracic surgeon release of information clerk. Outpatient Follow-Up Future Appointments Date Time Provider [...] Mobility Exam: Supine to Sit Level of [place]: Stand-by assist Physical/Nonphysical Assist: Set-up required, HOB elevated Assistive Device: Bed rails Transfers Transfer Exam: Sit to stand Level of [place]: Stand-by assist Physical/Nonphysical Assist: Verbal Cues, Nonverbal cues (demo/gestures), Minimal cues Assistive Device: Rollator Transfer Exam: Stand to Sit Level of [place]: Stand-by assist Physical/Nonphysical Assist: Verbal Cues, Nonverbal [...] to areas of treatment space. Standardized Assessments [facility] 6-Clicks Mobility Assessment Difficulty patient has [...] 3-5 steps with a railing?: A little [facility] 6-Clicks Mobility Assessment Total : 21 [...] for assistance with DME. Referrals sent to [facility] for Rollator to be delivered to bedside today. * Progress Notes - Patricia Torres N - 04/03/2025 11:49 AM EDT Occupational Therapy Treatment Patient Name: Michelle Feliz Jr. Today's Date: 04/03/2025 OT Discharge Recommendations: Home with 24 hour assistance Equipment Recommended: Rollator Subjective Pt consent to tx Participants in Care Family/Caregiver Present: Yes Family/Caregiver: Adult Daughter Tire Specialist: Not Applicable Presentation Oxygen Therapy: None (Room [...] Mobility Exam: Supine to Sit Level of [place]: Stand-by assist Physical/Nonphysical Assist: Set-up required, HOB elevated Transfers Transfer Exam: Sit to stand Level of [place]: Stand-by assist Physical/Nonphysical Assist: Verbal Cues, Nonverbal cues (demo/gestures), Minimal cues Assistive Device: Rollator Transfer Exam: Stand to Sit Level of [place]: Stand-by assist Physical/Nonphysical Assist: Verbal Cues, Nonverbal [...] reaches 6. Pt verbalizes understanding. Standardized Assessments [facility] 6-Click Daily Activities Help from Other: Don/Doff Regular Lower Body Clothings: Little Help From Other: Bathing: Little Help From Other: Toileting: Little Help From Other: Don/Doff Upper Body Clothings: Little Help From Other: Grooming: Little Help From Other: Eating Meals: None [facility] 6 Click - Daily Activities Score: [...] from the original note were not included. [facility] Department of Surgery Section of [...] current use of insulin ([facility]) Microalbuminuria Tobacco use [...] Mobility Bed Mobility Exam: Scooting/Bridging Level of [place]: Minimum assist (75% patient's effort) Physical/Nonphysical Assist: Verbal Cues, Nonverbal cues (demo/gestures), Minimal cues Bed Mobility Exam: Supine to Sit Level of [place]: Minimum assist (75% patient's effort) Physical/Nonphysical Assist: Verbal Cues, Nonverbal cues (demo/gestures), HOB elevated Bed Mobility Exam: Sit to Supine Level of [place]: Minimum assist (75% patient's effort) Physical/Nonphysical Assist: Verbal Cues, Minimal cues Transfers Transfer Exam: Sit to stand Level of [place]: Minimum assist (75% patient's effort) Physical/Nonphysical Assist: Verbal Cues, Nonverbal cues (demo/gestures), Minimal cues Assistive Device: Rollator Transfer Exam: Stand to Sit Level of [place]: Minimum assist (75% patient's effort) Physical/Nonphysical Assist: [...] Level of Mobility Ambulatory- household only Mobility [place] Independent gait without device History of Falls [...] Ambulating in-room distances since last PT treatment. Tire Specialist (if applicable) OBJECTIVE & INTERVENTIONS PAIN Pt was without complaints of pain throughout the PT treatment. DELIRIUM SCREENING Curtis Agitation Sedation Scale (RASS): Alert and calm Feature 3: Altered Level of Consciousness: Negative THERAPEUTIC ACTIVITY Treatment Minutes 25 BED MOBILITY Level of [place] Physical/Non- physical Assist Adaptive Equipment Utilized Scooting/ [...] with supine <> sit TRANSFERS Level of [place] Physical/Non- physical Assist Adaptive Equipment Utilized Sit to Stand Minimum assist (75% patient's effort) Verbal Cues, Nonverbal cues (demo/gestures), Minimal cues Rollator Stand to sit Minimum assist (75% patient's effort) Verbal Cues, Nonverbal cues (demo/gestures), Minimal cues Rollator Interventions PT cued for proper hand placement and forward trunk lean prior to completing STS transfers BALANCE Postural Appearance Posture: Stooped posture Level of [place] Balance Support Interventions Static Sit Standby assist [...] Left upper extremity support AMBULATION Level of [place] Distance Adaptive Equipment Utilized Ambulation Contact guard [...] falling while progressing pt's distances Standardized Assessments [facility] 6-Clicks Mobility Assessment Difficulty patient has [...] climbing 3-5 steps with a railing?: Unable [facility] 6-Clicks Mobility Assessment Total : 16 [...] from the original note were not included. [facility] Department of Surgery Section of [...] current use of insulin ([facility]) Microalbuminuria Tobacco use [...] current use of insulin ([facility]/HCC) Anemia Electrolyte abnormality Plan: - [...] from the original note were not included. [facility] Department of Surgery Section of [...] Michelle Feliz Jr. 79 y.o. male CSN: [id number] Admission: 03/29/2025 9:43 AM Primary Problem: Non-small cell cancer of left lung (CMS/HCC) Under Sheriff reviewed chart and spoke with the patient at bedside to complete this Initial Case Management Assessment. PCP: Casa Phililps MD Emergency Contact: Extended Emergency Contact Information Primary Emergency Contact: Elliot Feliz Relation: Son Tire Specialist needed? No Secondary Emergency Contact: Nora Feliz Relation: Daughter Tire Specialist needed? No Insurance: Primary Visit Coverage Payer Plan Sponsor Code Group Number Group Name [facility] MEDICARE [facility] [employer] [id number] Primary Visit Coverage Subscriber Subscriber ID Subscriber Name Subscriber N Subscriber Address [id number] MICHELLE FELIZ JR [id number] [place] [address] Patient information: Primary Caregiver: Self Support System: Immediate family Daily Living Activities: Functional Status: Independent Living Arrangements: Children Type of Residence: Private residence, Single Level [address] [place] [address] Current DME: Equipment Currently Used at Home: [...] DME Provider: n/a Living Will/Advance Directive/Power of Wind Commissioning Technician /Guardian: Have you reviewed your Advance [...] Patient has Anthem Medicare insurance and uses [facility] pharmacy. Family will assist and transport at [...] from the original note were not included. [facility] Department of Surgery Section of [...] Level of Mobility: Ambulatory- household only Mobility [place]: Independent gait without device History of Falls: [...] Mobility Bed Mobility Exam: Scooting/Bridging Level of [place]: Maximum assist (25% patient's effort) (to scoot to EOB while seated) Physical/Nonphysical Assist: Verbal Cues, Nonverbal cues (demo/gestures) Bed Mobility Exam: Supine to Sit Level of [place]: Maximum assist (25% patient's effort) Physical/Nonphysical Assist: Verbal Cues, Nonverbal cues (demo/gestures), Additional assist utilized for safety, HOB elevated Transfers Transfer Exam: Sit to stand Level of [place]: Moderate assist (50% patient's effort) Physical/Nonphysical Assist: Verbal Cues, Nonverbal cues (demo/gestures), Additional assist utilized for safety Transfer Exam: Stand to Sit Level of [place]: Moderate assist (50% patient's effort) Physical/Nonphysical Assist: [...] session. Standardized Assessments Standardized Assessments Standardized Assessments: [facility] 6-Clicks Mobility Assessment [facility] 6-Clicks Mobility Assessment Difficulty patient has [...] climbing 3-5 steps with a railing?: Unable [facility] 6-Clicks Mobility Assessment Total : 11 [...] Level of Mobility: Ambulatory- household only Mobility [place]: Independent gait without device History of Falls: [...] Mobility Bed Mobility Exam: Scooting/Bridging Level of [place]: Maximum assist (25% patient's effort) (to scoot to EOB while seated) Physical/Nonphysical Assist: Verbal Cues, Nonverbal cues (demo/gestures) Bed Mobility Exam: Supine to Sit Level of [place]: Maximum assist (25% patient's effort) Physical/Nonphysical Assist: Verbal Cues, Nonverbal cues (demo/gestures), Additional assist utilized for safety, HOB elevated Transfers Transfer Exam: Sit to stand Level of [place]: Moderate assist (50% patient's effort) Physical/Nonphysical Assist: Verbal Cues, Nonverbal cues (demo/gestures), Additional assist utilized for safety Transfer Exam: Stand to Sit Level of [place]: Moderate assist (50% patient's effort) Physical/Nonphysical Assist: [...] continued education to improve carryover. Standardized Assessments [facility] 6-Click Daily Activities Help from Other: Don/Doff Regular Lower Body Clothings: A lot Help From Other: Bathing: A lot Help From Other: Toileting: A lot Help From Other: Don/Doff Upper Body Clothings: Little Help From Other: Grooming: Little Help From Other: Eating Meals: None [facility] 6 Click - Daily Activities Score: [...] from the original note were not included. [facility] Department of Surgery Section of [...] PM EDT Operative Note Date: 03/29/25 Location: [place] [facility] Name: Michelle Feliz , : 1945, Diagnoses: Pre-op Diagnosis Non-small cell cancer of left lung (CMS/HCC) Post-op Diagnosis Non-small cell cancer of left lung (CMS/HCC) Procedure(s): Bronchoscopy, left VATS converted to thoracotomy, left upper lobectomy, mediastinal lymph node dissection, intercostal nerve blocks Attending Surgeon(s): Ирина Durán - Primary Retail Management Trainee(s): * Carl Hamlin MD - Resident - [...] spaces under direct visualization. A single 24 Maltese chest tube was placed through the camera [...] responses Results Review {Vanishing Link Review Results :[id number] I have reviewed the latest lab and [...] card, photo ID, along with power of bankruptcy attorney, guardianship or advanced directives if applicable [...] Cassidy APRN - 03/18/2025 8:35 AM EDT [facility] Michelle Feliz Jr. is a 79 [...] Upcoming Encounters Date Type Department Care Team ([facility] Contact Info) Description 07/06/2025 10:40 AM EDT Office Visit Pav CC Head, Neck & Respiratory [address] [facility], 2nd [place] [address] Nikolai Naranjo MD [address] [facility] Lorin Avila [facility] [address] [place] [address] (work) documented as of this encounter Procedures [...] 2:12 AM EDT MAGNESIUM, PLASMA Routine 04/01/2025 2: 12 AM EDT RENAL FUNCTION PANEL, PLASMA Routine [...] Non-small cell cancer of left lung (CMS/HCC) SC THORACOSCOPY SURG LOBECTOMY 03/29/2025 1:24 PM EDT [...] Comment 04/04/2025 8:36 AM EDT [facility] Knitted Cloth Examiner ID Sandy Kramer 04/04/2025 8:36 AM EDT [facility] Device ID [id number] 04/04/2025 8:36 AM EDT [facility] Specimen Type POC Capillary 04/04/2025 8:36 AM EDT [facility] Blood Capillary blood specimen / Unknown 04/04/2025 8:34 AM EDT 04/04/2025 8:36 AM EDT Ирина Lopez MD LAB POINT OF CARE TE ST DOCKED DEVICE UNSOLICITED RESULTS Final Result [facility] [address] [place] [address] * XR Chest 1 View (04/04/2025 5:20 [...] MD on 04/04/2025 10:20 AM Scarlet Gamboa DIGITAL CARTOGRAPHER IMG XR PROCEDURES Final Resul t * (ABNORMAL) Renal Function Panel, Plasma (04/04/2025 2:19 AM EDT) Glucose, Plasma 166(H) 74 - 99 mg/dL 04/04/2025 2:[address] [facility] BUN, Plasma 18 8 - 23 mg/dL 04/04/2025 2:[address] [facility] Creatinine, Plasma 1.31(H) 0.70 - 1.20 mg/dL 04/04/2025 2:[address] [facility] BUN/Creatinine Ratio 14 04/04/2025 2:[address] [facility] Sodium, Plasma 136 136 - 145 mmol/L 04/04/2025 2:[address] [facility] Potassium, Plasma 4.3 3.6 - 4.9 mmol/L 04/04/2025 2:[address] [facility] Chloride, Plasma 103 97 - 107 mmol/L 04/04/2025 2:[address] [facility] CO2, Plasma 22 22 - 29 mmol/L 04/04/2025 2:[address] [facility] Anion Gap 11 6 - 16 mmol/L 04/04/2025 2:[address] [facility] Total Calcium, Plasma 8.2(L) 8.9 - 10.2 mg/dL 04/04/2025 2:[address] [facility] Phosphorus, Plasma 3.1 2.5 - 4.5 mg/dL 04/04/2025 2:[address] [facility] Albumin, Plasma 3.0(L) 3.5 - 5.2 g/dL 04/04/2025 2:[address] [facility] eGFRcr 55.7 mL/min/1.7 3m*2 04/04/2025 2:[address] [facility] Comment:Reported eGFRcr in m L/min/1.73m2 is based the CKD-EPI 2020 equation that does not use a race coefficient. Blood Venous blood specimen / Unknown Venipuncture / Unknown 04/04/2025 2:19 AM EDT 04/04/2025 2:24 AM EDT Ирина Lopez MD LAB BLOOD ORDERABLES Final R esult [facility] [address] [place] [address] * (ABNORMAL) Magnesium, Plasma (04/04/2025 2:19 AM EDT) Magnesium, Plasma 1.8(L) 1.9 - 2.4 mg/dL 04/04/2025 2:[address] [facility] Blood Venous blood specimen / Unknown Venipuncture / Unknown 04/04/2025 2:19 AM EDT 04/04/2025 2:24 AM EDT Ирина Lopez MD LAB BLOOD ORDERABLES Final R esult [facility] [address] [place] [address] * (ABNORMAL) CBC W/O Differential (04/04/2025 2:19 AM EDT) WBC Count 5.44 3.70 - 10.30 10*3/uL LAB HEMATOLOGY METHOD 04/04/2025 2:[address] [facility] RBC Count 3.77(L) 4.60 - 6.10 10*6/uL LAB HEMATOLOGY METHOD 04/04/2025 2:[address] [facility] HGB 10.7(L) 13.7 - 17.5 g/dL LAB HEMATOLOGY METHOD 04/04/2025 2:[address] [facility] HCT 32.4(L) 40.0 - 51.0 % LAB HEMATOLOGY METHOD 04/04/2025 2:[address] [facility] Platelet Count 220 155 - 369 10*3/uL LAB HEMATOLOGY METHOD 04/04/2025 2:[address] [facility] MCV 86 79 - 98 fL LAB HEMATOLOGY METHOD 04/04/2025 2:[address] [facility] MCH 28.4 26.0 - 32.0 pg LAB HEMATOLOGY METHOD 04/04/2025 2:[address] [facility] MCHC 33.0 30.7 - 35.5 g/dL LAB HEMATOLOGY METHOD 04/04/2025 2:[address] [facility] RDW 14.7(H) 11.5 - 14.5 % LAB HEMATOLOGY METHOD 04/04/2025 2:[address] [facility] MPV 9.1 8.8 - 12.5 fL LAB HEMATOLOGY METHOD 04/04/2025 2:[address] [facility] nRBC 0.4(H) <=0.0 per 100 WBCs LAB HEMATOLOGY METHOD 04/04/2025 2:[address] [facility] Blood Venous blood specimen / Unknown Venipuncture / Unknown 04/04/2025 2:19 AM EDT 04/04/2025 2:24 AM EDT us Ирина Lopez MD LAB BLOOD ORDERABLES Final R esult Performing Organization Address City/[facility]/ZIP Co de Phone Number [facility] [address] [place] [address] * (ABNORMAL) POCT glucose meter (04/03/2025 8:25 [...] for testing. Comment 04/03/2025 8:28 PM EDT [facility] Knitted Cloth Examiner ID Obdulio Navarro 04/03/2025 8:28 PM EDT [facility] Device ID [id number] 04/03/2025 8:28 PM EDT [facility] Specimen Type POC Capillary 04/03/2025 8:28 PM EDT [facility] Blood Capillary blood specimen / Unknown 04/03/2025 8:25 PM EDT 04/03/2025 8:28 PM EDT us Ирина Lopez MD LAB POINT OF CARE TE ST DOCKED DEVICE UNSOLICITED RESULTS Final Result Performing Organization Address City/[facility] Co de Phone Number [facility] [address] [place] [address] * (ABNORMAL) POCT glucose meter (04/03/2025 5:27 [...] Comment 04/03/2025 5:29 PM EDT [facility] Knitted Cloth Examiner ID Anayeli Castro 025 5:29 PM EDT [facility] Device ID [id number] 04/03/2025 5:29 PM EDT [facility] Specimen Type POC Capillary 04/03/2025 5:29 PM EDT [facility] Blood Capillary blood specimen / Unknown 04/03/2025 5:27 PM EDT 04/03/2025 5:29 PM EDT us Ирина Lopez MD LAB POINT OF CARE TE ST DOCKED DEVICE UNSOLICITED RESULTS Final Result Performing Organization Address City/State/[facility] Co de Phone Number [facility] [address] [place] [address] * XR Chest 1 View (04/03/2025 1:09 [...] Comment 04/03/2025 12:17 PM EDT [facility] Knitted Cloth Examiner ID Anayeli Castro 025 12:17 PM EDT [facility] Device ID [id number] 04/03/2025 12:17 PM EDT [facility] Specimen Type POC Capillary 04/03/2025 12:17 PM EDT [facility] Blood Capillary blood specimen / Unknown 04/03/2025 12:15 PM EDT 04/03/2025 12:17 PM EDT Ирина Lopez MD LAB POINT OF CARE TE ST DOCKED DEVICE UNSOLICITED RESULTS Final Result [facility] [address] [place] [address] * (ABNORMAL) POCT glucose meter (04/03/2025 8:46 [...] Comment 04/03/2025 8:48 AM EDT [facility] Knitted Cloth Examiner ID Anayeli Castro 025 8:48 AM EDT [facility] Device ID [id number] 04/03/2025 8:48 AM EDT [facility] Specimen Type POC Capillary 04/03/2025 8:48 AM EDT [facility] Blood Capillary blood specimen / Unknown 04/03/2025 8:46 AM EDT 04/03/2025 8:48 AM EDT us Ирина Lopez MD LAB POINT OF CARE TE ST DOCKED DEVICE UNSOLICITED RESULTS Final Result Performing Organization Address City/State/[facility] de Phone Number [facility] [address] [place] [address] * XR Chest 1 View (04/03/2025 5:53 [...] MD on 04/03/2025 9:52 AM Scarlet Gamboa DIGITAL CARTOGRAPHER IMG XR PROCEDURES Final Resul t * (ABNORMAL) Renal Function Panel, Plasma (04/03/2025 3:45 AM EDT) Glucose, Plasma 131(H) 74 - 99 mg/dL 04/03/2025 4:[address] [facility] BUN, Plasma 16 8 - 23 mg/dL 04/03/2025 4:[address] [facility] Creatinine, Plasma 1.34(H) 0.70 - 1.20 mg/dL 04/03/2025 4:[address] [facility] BUN/Creatinine Ratio 12 04/03/2025 4:[address] [facility] Sodium, Plasma 135(L) 136 - 145 mmol/L 04/03/2025 4:[address] [facility] Potassium, Plasma 4.9 3.6 - 4.9 mmol/L 04/03/2025 4:[address] [facility] Chloride, Plasma 103 97 - 107 mmol/L 04/03/2025 4:[address] [facility] CO2, Plasma 21(L) 22 - 29 mmol/L 04/03/2025 4:[address] [facility] Anion Gap 11 6 - 16 mmol/L 04/03/2025 4:[address] [facility] Total Calcium, Plasma 7.7(L) 8.9 - 10.2 mg/dL 04/03/2025 4:[address] [facility] Phosphorus, Plasma 2.2(L) 2.5 - 4.5 mg/dL 04/03/2025 4:[address] [facility] Albumin, Plasma 2.8(L) 3.5 - 5.2 g/dL 04/03/2025 4:[address] [facility] eGFRcr 54.2 mL/min/1.7 3m*2 04/03/2025 4:[address] [facility] Comment:Reported eGFRcr in m L/min/1.73m2 is based the CKD-EPI 2020 equation that does not use a race coefficient. Blood Venous blood specimen / Unknown Venipuncture / Unknown 04/03/2025 3:45 AM EDT 04/03/2025 3:54 AM EDT Ирина Lopez MD LAB BLOOD ORDERABLES Final R esult Performing Organization Address City/[facility]/ZIP Co de Phone Number [facility] [address] [place] [address] * Magnesium, Plasma (04/03/2025 3:45 AM EDT) Magnesium, Plasma 2.0 1.9 - 2.4 mg/dL 04/03/2025 4:[address] [facility] Blood Venous blood specimen / Unknown Venipuncture / Unknown 04/03/2025 3:45 AM EDT 04/03/2025 3:54 AM EDT us Ирина Lopez MD LAB BLOOD ORDERABLES Final R esult Performing Organization Address City/[facility]/ZIP Co de Phone Number [facility] [address] [place] [address] * (ABNORMAL) CBC W/O Differential (04/03/2025 3:45 AM EDT) WBC Count 6.54 3.70 - 10.30 10*3/uL LAB HEMATOLOGY METHOD 04/03/2025 4:[address] [facility] RBC Count 3.42(L) 4.60 - 6.10 10*6/uL LAB HEMATOLOGY METHOD 04/03/2025 4:[address] [facility] HGB 9.8(L) 13.7 - 17.5 g/dL LAB HEMATOLOGY METHOD 04/03/2025 4:[address] [facility] HCT 29.2(L) 40.0 - 51.0 % LAB HEMATOLOGY METHOD 04/03/2025 4:[address] [facility] Platelet Count 209 155 - 369 10*3/uL LAB HEMATOLOGY METHOD 04/03/2025 4:[address] [facility] MCV 85 79 - 98 fL LAB HEMATOLOGY METHOD 04/03/2025 4:[address] [facility] MCH 28.7 26.0 - 32.0 pg LAB HEMATOLOGY METHOD 04/03/2025 4:[address] [facility] MCHC 33.6 30.7 - 35.5 g/dL LAB HEMATOLOGY METHOD 04/03/2025 4:[address] [facility] RDW 15.0(H) 11.5 - 14.5 % LAB HEMATOLOGY METHOD 04/03/2025 4:[address] [facility] MPV 9.4 8.8 - 12.5 fL LAB HEMATOLOGY METHOD 04/03/2025 4:[address] [facility] nRBC 0.0 <=0.0 per 100 WBCs LAB HEMATOLOGY METHOD 04/03/2025 4:[address] [facility] Blood Venous blood specimen / Unknown Venipuncture / Unknown 04/03/2025 3:45 AM EDT 04/03/2025 3:54 AM EDT us Ирина Lopez MD LAB BLOOD ORDERABLES Final R esult [facility] [address] [place] [address] * (ABNORMAL) POCT glucose meter (04/02/2025 8:16 PM EDT) POCT Glucose 154(H) 74 - 99 mg/dL 04/02/2025 8:20 PM EDT [facility] Comment:Accuracy of a glucos e result [...] Comment 04/02/2025 8:20 PM EDT [facility] Knitted Cloth Examiner ID Jil Ruiz 8:20 PM EDT [facility] Device ID [id number] 04/02/2025 8:20 PM EDT [facility] Specimen Type POC Capillary 04/02/2025 8:20 PM EDT [facility] Blood Capillary blood specimen / Unknown 04/02/2025 8:16 PM EDT 04/02/2025 8:20 PM EDT us Ирина Lopez MD LAB POINT OF CARE TE ST DOCKED DEVICE UNSOLICITED RESULTS Final Result Performing Organization Address City/[facility]/ZIP Co de Phone Number [facility] [address] [place] [address] * (ABNORMAL) POCT glucose meter (04/02/2025 5:20 [...] Comment 04/02/2025 5:22 PM EDT [facility] Knitted Cloth Examiner ID Kenn Cabrera 04/02/2025 5:22 PM EDT [facility] Device ID [id number] 04/02/2025 5:22 PM EDT [facility] Specimen Type POC Capillary 04/02/2025 5:22 PM EDT [facility] Blood Capillary blood specimen / Unknown 04/02/2025 5:20 PM EDT 04/02/2025 5:22 PM EDT us Ирина Lopez MD LAB POINT OF CARE TE ST DOCKED DEVICE UNSOLICITED RESULTS Final Result Performing Organization Address City/[facility]/ZIP Co de Phone Number [facility] [address] [place] [address] * (ABNORMAL) CBC W/O Differential (04/02/2025 3:02 PM EDT) WBC Count 6.02 3.70 - 10.30 10*3/uL LAB HEMATOLOGY METHOD 04/02/2025 3:[address] [facility] RBC Count 3.09(L) 4.60 - 6.10 10*6/uL LAB HEMATOLOGY METHOD 04/02/2025 3:[address] [facility] HGB 8.9(L) 13.7 - 17.5 g/dL LAB HEMATOLOGY METHOD 04/02/2025 3:[address] [facility] HCT 26.9(L) 40.0 - 51.0 % LAB HEMATOLOGY METHOD 04/02/2025 3:[address] [facility] Platelet Count 129(L) 155 - 369 10*3/uL LAB HEMATOLOGY METHOD 04/02/2025 3:[address] [facility] MCV 87 79 - 98 fL LAB HEMATOLOGY METHOD 04/02/2025 3:[address] [facility] MCH 28.8 26.0 - 32.0 pg LAB HEMATOLOGY METHOD 04/02/2025 3:[address] [facility] MCHC 33.1 30.7 - 35.5 g/dL LAB HEMATOLOGY METHOD 04/02/2025 3:[address] [facility] RDW 14.4 11.5 - 14.5 % LAB HEMATOLOGY METHOD 04/02/2025 3:[address] [facility] MPV 9.9 8.8 - 12.5 fL LAB HEMATOLOGY METHOD 04/02/2025 3:[address] [facility] nRBC 0.0 <=0.0 per 100 WBCs LAB HEMATOLOGY METHOD 04/02/2025 3:[address] [facility] Blood Venous blood specimen / Unknown Venipuncture / Unknown 04/02/2025 3:02 PM EDT 04/02/2025 3:20 PM EDT us Scarlet Gamboa DIGITAL CARTOGRAPHER LAB BLOOD ORDERABLES Final Re sult [facility] [address] [place] [address] * Transfuse RBC (04/02/2025 2:53 PM EDT) Scarlet Francis Cooper SMART BLOOD TRANSFUSION ORDERABLES Final Result * Transfuse RBC: 2 Units (04/02/2025 2:53 PM EDT) Scarlet Francis Cooper SMART BLOOD TRANSFUSION ORDERABLES Edited Result - Final * (ABNORMAL) POCT glucose meter (04/02/2025 12:28 PM EDT) [facility] POCT Glucose 149(H) 74 - 99 mg/dL [...] Comment 04/02/2025 12:30 PM EDT [facility] Knitted Cloth Examiner ID Kenn Cabrera 04/02/2025 12:30 PM EDT [facility] Device ID [id number] 04/02/2025 12:30 PM EDT [facility] Specimen Type POC Capillary 04/02/2025 12:30 PM EDT [facility] Blood Capillary blood specimen / Unknown 04/02/2025 12:28 PM EDT 04/02/2025 12:30 PM EDT Ирина Lopez MD LAB POINT OF CARE TE ST DOCKED DEVICE UNSOLICITED RESULTS Final Result [facility] [address] [place] [address] * Transfuse RBC (04/02/2025 12:16 PM EDT) [...] Comment 04/02/2025 8:33 AM EDT [facility] Knitted Cloth Examiner ID NazarethMartha schmitz 04/02/2025 8:33 AM EDT [facility] Device ID [id number] 04/02/2025 8:33 AM EDT [facility] Specimen Type POC Capillary 04/02/2025 8:33 AM EDT [facility] Blood Capillary blood specimen / Unknown 04/02/2025 8:31 AM EDT 04/02/2025 8:33 AM EDT Ирина Lopez MD LAB POINT OF CARE TE ST DOCKED DEVICE UNSOLICITED RESULTS Final Result [facility] [address] [place] [address] * Prepare Leukocyte Reduced RBC: 2 Units (04/02/2025 7:58 AM EDT) Product Code C5999Q66 [facility] BLOO D BANK Dispense Status Transfused BLOOD BANK Blood Expiration Date [id number] BLOOD BANK Unit Number [id number] CH B LOOD BANK Product Blood Type 6200 CH BLOOD BANK Blood Type A+ CH BLOOD BANK Crossmatch Compatible CH BLOOD BANK Product Code [id number] CH BLOO D BANK Dispense Status Transfused CH BLOOD BANK Blood Expiration Date [id number] BLOOD BANK Unit Number [id number] CH B LOOD BANK Product Blood Type 6200 CH BLOOD BANK Blood Type A+ CH BLOOD BANK Crossmatch Compatible BLOOD BANK Other us Scarlet Gamboa APRN BLOOD BANK PRODUCT ORDERABLES Final Result Performing Organization Address [facility] de Phone Number BLOOD BANK [address] [place] [address], [place] * Type and Screen (04/02/2025 6:36 [...] Final Result Performing Organization Address [facility] Co de Phone Number BLOOD BANK [address] [place] [address], [place] * XR Chest 1 View (04/02/2025 [...] - 99 mg/dL 04/02/2025 5:[address] [facility] BUN, Plasma 16 8 - 23 mg/dL 04/02/2025 5:[address] [facility] Creatinine, Plasma 1.47(H) 0.70 - 1.20 mg/dL 04/02/2025 5:[address] [facility] BUN/Creatinine Ratio 11 04/02/2025 5:[address] [facility] Sodium, Plasma 137 136 - 145 mmol/L 04/02/2025 5:[address] [facility] Potassium, Plasma 4.3 3.6 - 4.9 mmol/L 04/02/2025 5:[address] [facility] Chloride, Plasma 104 97 - 107 mmol/L 04/02/2025 5:[address] [facility] CO2, Plasma 24 22 - 29 mmol/L 04/02/2025 5:[address] [facility] Anion Gap 9 6 - 16 mmol/L 04/02/2025 5:[address] [facility] Total Calcium, Plasma 7.8(L) 8.9 - 10.2 mg/dL 04/02/2025 5:[address] [facility] Phosphorus, Plasma 2.6 2.5 - 4.5 mg/dL 04/02/2025 5:[address] [facility] Albumin, Plasma 2.8(L) 3.5 - 5.2 g/dL 04/02/2025 5:[address] [facility] eGFRcr 48.5 mL/min/1.7 3m*2 04/02/2025 5:[address] [facility] Comment:Reported eGFRcr in m L/min/1.73m2 is based the CKD-EPI 2020 equation that does not use a race coefficient. Blood Venous blood specimen / Unknown Venipuncture / Unknown 04/02/2025 4:32 AM EDT 04/02/2025 5:20 AM EDT us Ирина Lopez MD LAB BLOOD ORDERABLES Final R esult [facility] [address] [place] [address] * Magnesium, Plasma (04/02/2025 4:32 AM EDT) Magnesium, Plasma 1.9 1.9 - 2.4 mg/dL 04/02/2025 5:[address] [facility] Blood Venous blood specimen / Unknown Venipuncture / Unknown 04/02/2025 4:32 AM EDT 04/02/2025 5:20 AM EDT us Ирина Lopez MD LAB BLOOD ORDERABLES Final R esult [facility] [address] [place] [address] * (ABNORMAL) CBC W/O Differential (04/02/2025 4:32 AM EDT) WBC Count 6.22 3.70 - 10.30 10*3/uL LAB HEMATOLOGY METHOD 04/02/2025 5:[address] [facility] RBC Count 2.14(L) 4.60 - 6.10 10*6/uL LAB HEMATOLOGY METHOD 04/02/2025 5:[address] [facility] HGB 6.4(LL) 13.7 - 17.5 g/dL LAB HEMATOLOGY METHOD 04/02/2025 5:[address] [facility] HCT 19.0(LL) 40.0 - 51.0 % LAB HEMATOLOGY METHOD 04/02/2025 5:[address] [facility] Platelet Count 180 155 - 369 10*3/uL LAB HEMATOLOGY METHOD 04/02/2025 5:[address] [facility] MCV 89 79 - 98 fL LAB HEMATOLOGY METHOD 04/02/2025 5:[address] [facility] MCH 29.9 26.0 - 32.0 pg LAB HEMATOLOGY METHOD 04/02/2025 5:[address] [facility] MCHC 33.7 30.7 - 35.5 g/dL LAB HEMATOLOGY METHOD 04/02/2025 5:[address] [facility] RDW 14.0 11.5 - 14.5 % LAB HEMATOLOGY METHOD 04/02/2025 5:[address] [facility] MPV 9.9 8.8 - 12.5 fL LAB HEMATOLOGY METHOD 04/02/2025 5:[address] [facility] nRBC 0.0 <=0.0 per 100 WBCs LAB HEMATOLOGY METHOD 04/02/2025 5:[address] [facility] Blood Venous blood specimen / Unknown Venipuncture / Unknown 04/02/2025 4:32 AM EDT 04/02/2025 5:20 AM EDT us Ирина Lopez MD LAB BLOOD ORDERABLES Final R esult [facility] [address] [place] [address] * (ABNORMAL) POCT glucose meter (04/01/2025 8:14 [...] Comment 04/01/2025 8:16 PM EDT [facility] Knitted Cloth Examiner ID Jil Ruiz 8:16 PM EDT [facility]ALTH[facility] LAB Device ID [id number] 04/01/2025 8:16 PM EDT [facility] Specimen Type POC Capillary 04/01/2025 8:16 PM EDT [facility] Blood Capillary blood specimen / Unknown 04/01/2025 8:14 PM EDT 04/01/2025 8:16 PM EDT us Ирина Lopez MD LAB POINT OF CARE TE ST DOCKED DEVICE UNSOLICITED RESULTS Final Result [facility] [address] [place] [address] * (ABNORMAL) POCT glucose meter (04/01/2025 5:26 [...] 04/01/2025 5:29 PM EDT [facility] Knitted Cloth Examiner ID Kenn Cabrera 04/01/2025 5:29 PM EDT [facility] Device ID [id number] 04/01/2025 5:29 PM EDT [facility] Specimen Type POC Capillary 04/01/2025 5:29 PM EDT [facility] Blood Capillary blood specimen / Unknown 04/01/2025 5:26 PM EDT 04/01/2025 5:29 PM EDT Ирина Lopez MD LAB POINT OF CARE TE ST DOCKED DEVICE UNSOLICITED RESULTS Final Result Performing Organization Address City/State/[facility] Co de Phone Number [facility] [address] [place] [address] * (ABNORMAL) POCT glucose meter (04/01/2025 12:49 PM EDT) [facility] POCT Glucose 162(H) 74 - 99 mg/dL [...] 04/01/2025 12:51 PM EDT [facility] Knitted Cloth Examiner ID Kenn Cabrera 04/01/2025 12:51 PM EDT [facility] Device ID [id number] 04/01/2025 12:51 PM EDT [facility] Specimen Type POC Capillary 04/01/2025 12:51 PM EDT [facility] Blood Capillary blood specimen / Unknown 04/01/2025 12:49 PM EDT 04/01/2025 12:51 PM EDT Ирина Lopez MD LAB POINT OF CARE TE ST DOCKED DEVICE UNSOLICITED RESULTS Final Result Performing Organization Address [facility] [place]/[facility] de Phone Number [facility] [address] [place] [address] * (ABNORMAL) POCT glucose meter (04/01/2025 8:43 [...] 04/01/2025 8:45 AM EDT [facility] Knitted Cloth Examiner ID Kenn Cabrera 04/01/2025 8:45 AM EDT [facility] Device ID [id number] 04/01/2025 8:45 AM EDT [facility] Specimen Type POC Capillary 04/01/2025 8:45 AM EDT [facility] Blood Capillary blood specimen / Unknown 04/01/2025 8:43 AM EDT 04/01/2025 8:45 AM EDT us Ирина Lopez MD LAB POINT OF CARE TE ST DOCKED DEVICE UNSOLICITED RESULTS Final Result Performing Organization Address City/[facility] Co de Phone Number [facility] [address] [place] [address] * XR Chest 1 View (04/01/2025 5:41 [...] - 99 mg/dL 04/01/2025 4:[address] [facility] BUN, Plasma 20 8 - 23 mg/dL 04/01/2025 4:[address] [facility] Creatinine, Plasma 1.67(H) 0.70 - 1.20 mg/dL 04/01/2025 4:[address] [facility] BUN/Creatinine Ratio 12 04/01/2025 4:[address] [facility] Sodium, Plasma 136 136 - 145 mmol/L 04/01/2025 4:[address] [facility] Potassium, Plasma 4.3 3.6 - 4.9 mmol/L 04/01/2025 4:[address] [facility] Chloride, Plasma 101 97 - 107 mmol/L 04/01/2025 4:[address] [facility] CO2, Plasma 24 22 - 29 mmol/L 04/01/2025 4:[address] [facility] Anion Gap 11 6 - 16 mmol/L 04/01/2025 4:[address] [facility] Total Calcium, Plasma 8.1(L) 8.9 - 10.2 mg/dL 04/01/2025 4:[address] [facility] Phosphorus, Plasma 2.5 2.5 - 4.5 mg/dL 04/01/2025 4:[address] [facility] Albumin, Plasma 3.0(L) 3.5 - 5.2 g/dL 04/01/2025 4:[address] [facility] eGFRcr 41.6 mL/min/1.7 3m*2 04/01/2025 4:[address] [facility] Comment:Reported eGFRcr in m L/min/1.73m2 is based the CKD-EPI 2020 equation that does not use a race coefficient. Blood Venous blood specimen / Unknown Venipuncture / Unknown 04/01/2025 2:12 AM EDT 04/01/2025 3:21 AM EDT Ирина Lopez MD LAB BLOOD ORDERABLES Final R esult Performing Organization Address City/[facility]/ZIP Co de Phone Number [facility] [address] [place] [address] * Magnesium, Plasma (04/01/2025 2:12 AM EDT) Magnesium, Plasma 2.4 1.9 - 2.4 mg/dL 04/01/2025 4:[address] [facility] Blood Venous blood specimen / Unknown Venipuncture / Unknown 04/01/2025 2:12 AM EDT 04/01/2025 3:21 AM EDT Ирина Lopez MD LAB BLOOD ORDERABLES Final R esult [facility] [address] [place] [address] * (ABNORMAL) CBC W/O Differential (04/01/2025 2:12 AM EDT) WBC Count 6.25 3.70 - 10.30 10*3/uL LAB HEMATOLOGY METHOD 04/01/2025 3:[address] [facility] RBC Count 2.59(L) 4.60 - 6.10 10*6/uL LAB HEMATOLOGY METHOD 04/01/2025 3:[address] [facility] HGB 7.6(L) 13.7 - 17.5 g/dL LAB HEMATOLOGY METHOD 04/01/2025 3:[address] [facility] HCT 22.9(L) 40.0 - 51.0 % LAB HEMATOLOGY METHOD 04/01/2025 3:[address] [facility] Platelet Count 163 155 - 369 10*3/uL LAB HEMATOLOGY METHOD 04/01/2025 3:[address] [facility] MCV 88 79 - 98 fL LAB HEMATOLOGY METHOD 04/01/2025 3:[address] [facility] MCH 29.3 26.0 - 32.0 pg LAB HEMATOLOGY METHOD 04/01/2025 3:[address] [facility] MCHC 33.2 30.7 - 35.5 g/dL LAB HEMATOLOGY METHOD 04/01/2025 3:[address] [facility] RDW 14.1 11.5 - 14.5 % LAB HEMATOLOGY METHOD 04/01/2025 3:[address] [facility] MPV 10.0 8.8 - 12.5 fL LAB HEMATOLOGY METHOD 04/01/2025 3:[address] [facility] nRBC 0.0 <=0.0 per 100 WBCs LAB HEMATOLOGY METHOD 04/01/2025 3:[address] [facility] Blood Venous blood specimen / Unknown Venipuncture / Unknown 04/01/2025 2:12 AM EDT 04/01/2025 3:21 AM EDT us Ирина Lopez MD LAB BLOOD ORDERABLES Final R esult [facility] [address] [place] [address] * (ABNORMAL) POCT glucose meter (03/31/2025 8:19 PM EDT) [facility] POCT Glucose 237(H) 74 - 99 mg/dL [...] Comment 03/31/2025 8:21 PM EDT [facility] Knitted Cloth Examiner ID Jil Ruiz 8:21 PM EDT [facility] Device ID [id number] 03/31/2025 8:21 PM EDT [facility] Specimen Type POC Capillary 03/31/2025 8:21 PM EDT [facility] Blood Capillary blood specimen / Unknown 03/31/2025 8:19 PM EDT 03/31/2025 8:21 PM EDT us Ирина Lopez MD LAB POINT OF CARE TE ST DOCKED DEVICE UNSOLICITED RESULTS Final Result [facility] [address] [place] [address] * (ABNORMAL) POCT glucose meter (03/31/2025 5:24 PM EDT) [facility] POCT Glucose 194(H) 74 - 99 mg/dL [...] 03/31/2025 5:26 PM EDT [facility] Knitted Cloth Examiner ID Kenn Cabrera 03/31/2025 5:26 PM EDT [facility] Device ID [id number] 03/31/2025 5:26 PM EDT [facility] Specimen Type POC Capillary 03/31/2025 5:26 PM EDT [facility] Blood Capillary blood specimen / Unknown 03/31/2025 5:24 PM EDT 03/31/2025 5:26 PM EDT us Ирина Lopez MD LAB POINT OF CARE TE ST DOCKED DEVICE UNSOLICITED RESULTS Final Result [facility] [address] [place] [address] * Transfuse RBC (03/31/2025 3:56 PM EDT) Scarlet Gamboa APRN BLOOD TRANSFUSION ORDERABLES Final Result * Transfuse RBC: 1 Units (03/31/2025 3:56 PM EDT) Scarlet Gamboa DIGITAL CARTOGRAPHER BLOOD TRANSFUSION ORDERABLES Final Result * XR [...] on 03/31/2025 1:30 PM us Scarlet Gamboa DIGITAL CARTOGRAPHER IMG XR PROCEDURES Final Resul t * [...] for testing. Comment 03/31/2025 12:34 PM EDT [facility] Knitted Cloth Examiner ID Kenn Cabrera 03/31/2025 12:34 PM EDT [facility] Device ID [id number] 03/31/2025 12:34 PM EDT [facility] Specimen Type POC Capillary 03/31/2025 12:34 PM EDT [facility] Blood Capillary blood specimen / Unknown 03/31/2025 12:31 PM EDT 03/31/2025 12:34 PM EDT us Ирина Lopez MD LAB POINT OF CARE TE ST DOCKED DEVICE UNSOLICITED RESULTS Final Result [facility] [address] [place] [address] * (ABNORMAL) POCT glucose meter (03/31/2025 9:08 [...] Comment 03/31/2025 9:09 AM EDT [facility] Knitted Cloth Examiner ID Kenn Cabrera 03/31/2025 9:09 AM EDT [facility] Device ID [id number] 03/31/2025 9:09 AM EDT [facility] Specimen Type POC Capillary 03/31/2025 9:09 AM EDT [facility] Blood Capillary blood specimen / Unknown 03/31/2025 9:08 AM EDT 03/31/2025 9:09 AM EDT us Ирина Lopez MD LAB POINT OF CARE TE ST DOCKED DEVICE UNSOLICITED RESULTS Final Result Performing Organization Address City/[facility] Co de Phone Number [facility] [address] [place] [address] * Prepare Leukocyte Reduced RBC: 1 Units (03/31/2025 9:02 AM EDT) [facility] Signature Product Code [id number] CH BLOO D BANK Dispense Status Transfused BLOOD BANK Blood Expiration Date [id number] BLOOD BANK Unit Number [id number] CH B LOOD BANK Product Blood Type 6200 BLOOD BANK Blood Type A+ BLOOD BANK Crossmatch Compatible BLOOD BANK Other us Scarlet Gamboa APRN BLOOD BANK PRODUCT ORDERABLES Final Result Performing Organization Address [facility] de Phone Number BLOOD BANK [address] [place] [address], * XR Chest 1 View (03/31/2025 6:04 [...] - 99 mg/dL 03/31/2025 3:[address] [facility] BUN, Plasma 21 8 - 23 mg/dL 03/31/2025 3:[address] [facility] Creatinine, Plasma 1.59(H) 0.70 - 1.20 mg/dL 03/31/2025 3:[address] [facility] BUN/Creatinine Ratio 03/31/2025 3:[address] [facility] Sodium, Plasma 133(L) 136 - 145 mmol/L 03/31/2025 3:[address] [facility] Potassium, Plasma 3.6 3.6 - 4.9 mmol/L 03/31/2025 3:[address] [facility] Chloride, Plasma 102 97 - 107 mmol/L 03/31/2025 3:[address] [facility] CO2, Plasma 19(L) 22 - 29 mmol/L 03/31/2025 3:[address] [facility] Anion Gap 12 6 - 16 mmol/L 03/31/2025 3:[address] [facility] Total Calcium, Plasma 7.0(L) 8.9 - 10.2 mg/dL 03/31/2025 3:[address] [facility] Phosphorus, Plasma 3.5 2.5 - 4.5 mg/dL 03/31/2025 3:[address] [facility] Albumin, Plasma 2.9(L) 3.5 - 5.2 g/dL 03/31/2025 3:[address] [facility] eGFRcr 44.2 mL/min/1.7 3m*2 03/31/2025 3:[address] [facility] Comment:Reported eGFRcr in m L/min/1.73m2 is based the CKD-EPI 2020 equation that does not use a race coefficient. Blood Venous blood specimen / Unknown Venipuncture / Unknown 03/31/2025 2:22 AM EDT 03/31/2025 2:41 AM EDT Ирина Lopez MD LAB BLOOD ORDERABLES Final R esult Performing Organization Address City/[facility]/ZIP Co de Phone Number [facility] [address] [place] [address] * (ABNORMAL) Magnesium, Plasma (03/31/2025 2:22 AM EDT) Magnesium, Plasma 3.1(H) 1.9 - 2.4 mg/dL 03/31/2025 3:[address] [facility] Blood Venous blood specimen / Unknown Venipuncture / Unknown 03/31/2025 2:22 AM EDT 03/31/2025 2:41 AM EDT Ирина Lopez MD LAB BLOOD ORDERABLES Final R esult [facility] [address] [place] [address] * (ABNORMAL) CBC W/O Differential (03/31/2025 2:22 AM EDT) WBC Count 7.84 3.70 - 10.30 10*3/uL LAB HEMATOLOGY METHOD 03/31/2025 2:[address] [facility] RBC Count 2.65(L) 4.60 - 6.10 10*6/uL LAB HEMATOLOGY METHOD 03/31/2025 2:[address] [facility] HGB 8.0(L) 13.7 - 17.5 g/dL LAB HEMATOLOGY METHOD 03/31/2025 2:[address] [facility] HCT 24.3(L) 40.0 - 51.0 % LAB HEMATOLOGY METHOD 03/31/2025 2:[address] [facility] Platelet Count 155 155 - 369 10*3/uL LAB HEMATOLOGY METHOD 03/31/2025 2:[address] [facility] MCV 92 79 - 98 fL LAB HEMATOLOGY METHOD 03/31/2025 2:[address] [facility] MCH 30.2 26.0 - 32.0 pg LAB HEMATOLOGY METHOD 03/31/2025 2:[address] [facility] MCHC 32.9 30.7 - 35.5 g/dL LAB HEMATOLOGY METHOD 03/31/2025 2:[address] [facility] RDW 13.2 11.5 - 14.5 % LAB HEMATOLOGY METHOD 03/31/2025 2:[address] [facility] MPV 9.6 8.8 - 12.5 fL LAB HEMATOLOGY METHOD 03/31/2025 2:[address] [facility] nRBC 0.0 <=0.0 per 100 WBCs LAB HEMATOLOGY METHOD 03/31/2025 2:[address] [facility] Blood Venous blood specimen / Unknown Venipuncture / Unknown 03/31/2025 2:22 AM EDT 03/31/2025 2:41 AM EDT us Ирина Lopez MD LAB BLOOD ORDERABLES Final R esult [facility] [address] [place] [address] * (ABNORMAL) POCT glucose meter (03/30/2025 8:28 [...] for testing. Comment 03/30/2025 8:30 PM EDT [facility] Knitted Cloth Examiner ID Danuta Laughlin 03/30/2025 8:30 PM EDT [facility] Device ID [id number] 03/30/2025 8:30 PM EDT [facility] Specimen Type POC Capillary 03/30/2025 8:30 PM EDT [facility] Blood Capillary blood specimen / Unknown 03/30/2025 8:28 PM EDT 03/30/2025 8:30 PM EDT Ирина Lopez MD LAB POINT OF CARE TE ST DOCKED DEVICE UNSOLICITED RESULTS Final Result [facility] [address] [place] [address] * (ABNORMAL) POCT glucose meter (03/30/2025 5:20 PM EDT) [facility] POCT Glucose 148(H) 74 - 99 mg/dL [...] 03/30/2025 5:21 PM EDT [facility] Knitted Cloth Examiner ID Halima Ervin 03/30/20 5:21 PM EDT [facility] Device ID [id number] 03/30/2025 5:21 PM EDT [facility] Specimen Type POC Capillary 03/30/2025 5:21 PM EDT [facility] Blood Capillary blood specimen / Unknown 03/30/2025 5:20 PM EDT 03/30/2025 5:21 PM EDT us Ирина Lopez MD LAB POINT OF CARE TE ST DOCKED DEVICE UNSOLICITED RESULTS Final Result [facility] [address] [place] [address] * XR Chest 1 View (03/30/2025 4:46 [...] on 03/30/2025 5:01 PM us Scarlet Gamboa APRN IMG XR PROCEDURES Final [...] Comment 03/30/2025 12:49 PM EDT [facility] Knitted Cloth Examiner ID Cata Gibbs 12:49 PM EDT [facility] Device ID [id number] 03/30/2025 12:49 PM EDT [facility] Specimen Type POC Venous 03/30/2025 12:49 PM EDT [facility] Blood Venous blood specimen / Unknown 03/30/2025 12:48 PM EDT 03/30/2025 12:49 PM EDT us Ирина Lopez MD LAB POINT OF CARE TE ST DOCKED DEVICE UNSOLICITED RESULTS Final Result Performing Organization Address City/[facility]/ZIP Co de Phone Number [facility] [address] [place] [address] * (ABNORMAL) Magnesium, Plasma (03/30/2025 10:57 AM EDT) Magnesium, Plasma 3.1(H) 1.9 - 2.4 mg/dL 03/30/2025 11:[address] [facility] Blood Venous blood specimen / Unknown Venipuncture / Unknown 03/30/2025 10:57 AM EDT 03/30/2025 11:16 AM EDT us Scarlet Gamboa APRN LAB BLOOD ORDERABLES Final Re sult [facility] [address] [place] [address] * (ABNORMAL) Renal function panel (03/30/2025 10:57 AM EDT) Glucose, Plasma 236(H) 74 - 99 mg/dL 03/30/2025 11:[address] [facility] BUN, Plasma 20 8 - 23 mg/dL 03/30/2025 11:[address] [facility] Creatinine, Plasma 1.64(H) 0.70 - 1.20 mg/dL 03/30/2025 11:[address] [facility] BUN/Creatinine Ratio 12 03/30/2025 11:[address] [facility] Sodium, Plasma 132(L) 136 - 145 mmol/L 03/30/2025 11:[address] [facility] Potassium, Plasma 4.6 3.6 - 4.9 mmol/L 03/30/2025 11:[address] [facility] Chloride, Plasma 100 97 - 107 mmol/L 03/30/2025 11:[address] [facility] CO2, Plasma 21(L) 22 - 29 mmol/L 03/30/2025 11:[address] [facility] Anion Gap 11 6 - 16 mmol/L 03/30/2025 11:[address] [facility] Total Calcium, Plasma 7.4(L) 8.9 - 10.2 mg/dL 03/30/2025 11:[address] [facility] Phosphorus, Plasma 2.6 2.5 - 4.5 mg/dL 03/30/2025 11:[address] [facility] Albumin, Plasma 3.0(L) 3.5 - 5.2 g/dL 03/30/2025 11:[address] [facility] eGFRcr 42.5 mL/min/1.7 3m*2 03/30/2025 11:[address] [facility] Comment:Reported eGFRcr in m L/min/1.73m2 is based the CKD-EPI 2020 equation that does not use a race coefficient. Blood Venous blood specimen / Unknown Venipuncture / Unknown 03/30/2025 10:57 AM EDT 03/30/2025 11:16 AM EDT us Ирина Lopez MD LAB BLOOD ORDERABLES Final R esult [facility] [address] [place] [address] * (ABNORMAL) POCT glucose meter (03/30/2025 10:56 AM EDT) [facility] POCT Glucose 252(H) 74 - 99 mg/dL [...] Comment 03/30/2025 11:00 AM EDT [facility] Knitted Cloth Examiner ID Cata Gibbs 11:00 AM EDT [facility] Device ID [id number] 03/30/2025 11:00 AM EDT [facility] Specimen Type POC Venous 03/30/2025 11:00 AM EDT [facility] Blood Venous blood specimen / Unknown 03/30/2025 10:56 AM EDT 03/30/2025 11:00 AM EDT us Ирина Lopez MD LAB POINT OF CARE TE ST DOCKED DEVICE UNSOLICITED RESULTS Final Result Performing Organization Address City/State/[facility] Co de Phone Number [facility] [address] [place] [address] * (ABNORMAL) POCT glucose meter (03/30/2025 9:38 AM EDT) [facility] POCT Glucose 271(H) 74 - 99 mg/dL [...] 03/30/2025 9:39 AM EDT [facility] Knitted Cloth Examiner ID Cata Gibbs 9:39 AM EDT [facility] Device ID [id number] 03/30/2025 9:39 AM EDT [facility] Specimen Type POC Venous 03/30/2025 9:39 AM EDT [facility] Blood Venous blood specimen / Unknown 03/30/2025 9:38 AM EDT 03/30/2025 9:39 AM EDT Ирина Lopez MD LAB POINT OF CARE TE ST DOCKED DEVICE UNSOLICITED RESULTS Final Result Performing Organization Address City/[facility] Co de Phone Number [facility] [address] [place] [address] * ECG Adult (03/30/2025 8:37 AM EDT) EKG DIAGNOSIS CLASS Abnormal MUSE ECG Ventricular Rate 81 BPM MUSE ECG Atrial Rate 81 BPM MUSE ECG SC Interval 170 ms MUSE ECG QRSD Interval 104 ms MUSE ECG QT Interval 416 ms MUSE ECG QTC Interval 483 ms MUSE ECG P [place] 39 degrees MUSE ECG R [place] -51 degrees MUSE ECG T Wave [place] -15 degrees MUSE ECG Diagnosis Poor data quality, interpretation may be adversely affected MUSE ECG Diagnosis Normal sinus rhythm MUSE ECG Diagnosis Left anterior fascicular block MUSE ECG Diagnosis Moderate voltage criteria for LVH, may be normal variant ( R in aVL , Woden product ) MUSE ECG Diagnosis Possible Anterolateral infarct , age undetermined MUSE ECG Diagnosis QTcB >= 480 msec MUSE ECG Diagnosis Abnormal ECG MUSE ECG Diagnosis MUSE ECG Diagnosis Confirmed by Carey Michel ([id number]) on 03/30/2025 9:40:26 AM MUSE ECG 03/30/2025 8:37 AM EDT 03/30/2025 9:40 AM EDT Ирина Lopez MD ECG ORDERABLES Final Result Performing Organization Address City/[facility] Co de Phone Number MUSE ECG * (ABNORMAL) POCT glucose meter (03/30/2025 8:10 AM EDT) Pathologist [facility] POCT Glucose 164(H) 74 - 99 mg/dL 03/30/2025 8:11 AM EDT [facility] Comment:Accuracy of a glucos e result [...] Comment 03/30/2025 8:11 AM EDT [facility] Knitted Cloth Examiner ID Cata Gibbs 8:11 AM EDT [facility] Device ID [id number] 03/30/2025 8:11 AM EDT [facility] Specimen Type POC Venous 03/30/2025 8:11 AM EDT [facility] Blood Venous blood specimen / Unknown 03/30/2025 8:10 AM EDT 03/30/2025 8:11 AM EDT us Ирина Lopez MD LAB POINT OF CARE TE ST DOCKED DEVICE UNSOLICITED RESULTS Final Result [facility] [address] [place] [address] * (ABNORMAL) Renal function panel (03/30/2025 4:05 AM EDT) Glucose, Plasma 207(H) 74 - 99 mg/dL 03/30/2025 4:[address] [facility] BUN, Plasma 18 8 - 23 mg/dL 03/30/2025 4:[address] [facility] Creatinine, Plasma 1.41(H) 0.70 - 1.20 mg/dL 03/30/2025 4:[address] [facility] BUN/Creatinine Ratio 13 03/30/2025 4:[address] [facility] Sodium, Plasma 134(L) 136 - 145 mmol/L 03/30/2025 4:[address] [facility] Potassium, Plasma 5.8(H) 3.6 - 4.9 mmol/L 03/30/2025 4:[address] [facility] Chloride, Plasma 101 97 - 107 mmol/L 03/30/2025 4:[address] [facility] CO2, Plasma 20(L) 22 - 29 mmol/L 03/30/2025 4:[address] [facility] Anion Gap 13 6 - 16 mmol/L 03/30/2025 4:[address] [facility] Total Calcium, Plasma 7.7(L) 8.9 - 10.2 mg/dL 03/30/2025 4:[address] [facility] Phosphorus, Plasma 3.0 2.5 - 4.5 mg/dL 03/30/2025 4:[address] [facility] Albumin, Plasma 3.2(L) 3.5 - 5.2 g/dL 03/30/2025 4:[address] [facility] eGFRcr 51.0 mL/min/1.7 3m*2 03/30/2025 4:[address] [facility] Comment:Reported eGFRcr in m L/min/1.73m2 is based the CKD-EPI 2020 equation that does not use a race coefficient. Blood Arterial blood specimen / Unknown Arterial Puncture / Unknown 03/30/2025 4:05 AM EDT 03/30/2025 4:11 AM EDT Ирина Lopez MD LAB BLOOD ORDERABLES Final R esult Performing Organization Address City/[facility]/ZIP Co de Phone Number [facility] [address] [place] [address] * (ABNORMAL) Magnesium (03/30/2025 4:05 AM EDT) Magnesium, Plasma 1.4(L) 1.9 - 2.4 mg/dL 03/30/2025 4:[address] [facility] Blood Arterial blood specimen / Unknown Arterial Puncture / Unknown 03/30/2025 4:05 AM EDT 03/30/2025 4:11 AM EDT Ирина Lopez MD LAB BLOOD ORDERABLES Final R esult [facility] [address] [place] [address] * (ABNORMAL) CBC W/O Differential (03/30/2025 4:05 AM EDT) WBC Count 9.64 3.70 - 10.30 10*3/uL LAB HEMATOLOGY METHOD 03/30/2025 4:[address] [facility] RBC Count 2.91(L) 4.60 - 6.10 10*6/uL LAB HEMATOLOGY METHOD 03/30/2025 4:[address] [facility] HGB 8.8(L) 13.7 - 17.5 g/dL LAB HEMATOLOGY METHOD 03/30/2025 4:[address] [facility] HCT 25.8(L) 40.0 - 51.0 % LAB HEMATOLOGY METHOD 03/30/2025 4:[address] [facility] Platelet Count 190 155 - 369 10*3/uL LAB HEMATOLOGY METHOD 03/30/2025 4:[address] [facility] MCV 89 79 - 98 fL LAB HEMATOLOGY METHOD 03/30/2025 4:[address] [facility] MCH 30.2 26.0 - 32.0 pg LAB HEMATOLOGY METHOD 03/30/2025 4:[address] [facility] MCHC 34.1 30.7 - 35.5 g/dL LAB HEMATOLOGY METHOD 03/30/2025 4:[address] [facility] RDW 12.6 11.5 - 14.5 % LAB HEMATOLOGY METHOD 03/30/2025 4:[address] [facility] MPV 9.6 8.8 - 12.5 fL LAB HEMATOLOGY METHOD 03/30/2025 4:[address] [facility] nRBC 0.0 <=0.0 per 100 WBCs LAB HEMATOLOGY METHOD 03/30/2025 4:[address] [facility] Blood Arterial blood specimen / Unknown Arterial Puncture / Unknown 03/30/2025 4:05 AM EDT 03/30/2025 4:11 AM EDT us Ирина Lopez MD LAB BLOOD ORDERABLES Final R esult [facility] [address] [place] [address] * XR Chest 1 View (03/30/2025 1:35 [...] - 1.20 mg/dL 03/29/2025 8:[address] [facility] eGFRcr 70.2 mL/min/1.7 3m*2 03/29/2025 8:[address] [facility] Comment:Reported eGFRcr in m L/min/1.73m2 is based the CKD-EPI 2020 equation that does not use a race coefficient. Blood Arterial blood specimen / Unknown Arterial Puncture / Unknown 03/29/2025 7:58 PM EDT 03/29/2025 8:05 PM EDT Ирина Lopez MD LAB BLOOD ORDERABLES Final R esult [facility] [address] [place] [address] * (ABNORMAL) Renal Function Panel, Plasma (03/29/2025 7:58 PM EDT) Glucose, Plasma 183(H) 74 - 99 mg/dL 03/29/2025 8:[address] [facility] BUN, Plasma 13 8 - 23 mg/dL 03/29/2025 8:[address] [facility] Creatinine, Plasma 1.08 0.70 - 1.20 mg/dL 03/29/2025 8:[address] [facility] BUN/Creatinine Ratio 12 03/29/2025 8:[address] [facility] Sodium, Plasma 136 136 - 145 mmol/L 03/29/2025 8:[address] [facility] Potassium, Plasma 4.4 3.6 - 4.9 mmol/L 03/29/2025 8:[address] [facility] Chloride, Plasma 104 97 - 107 mmol/L 03/29/2025 8:[address] [facility] CO2, Plasma 21(L) 22 - 29 mmol/L 03/29/2025 8:[address] [facility] Anion Gap 11 6 - 16 mmol/L 03/29/2025 8:[address] [facility] Total Calcium, Plasma 7.9(L) 8.9 - 10.2 mg/dL 03/29/2025 8:[address] [facility] Phosphorus, Plasma 2.9 2.5 - 4.5 mg/dL 03/29/2025 8:[address] [facility] Albumin, Plasma 3.2(L) 3.5 - 5.2 g/dL 03/29/2025 8:[address] [facility] eGFRcr 70.2 mL/min/1.7 3m*2 03/29/2025 8:[address] [facility] Comment:Reported eGFRcr in m L/min/1.73m2 is based the CKD-EPI 2020 equation that does not use a race coefficient. Blood Arterial blood specimen / Unknown Arterial Puncture / Unknown 03/29/2025 7:58 PM EDT 03/29/2025 8:05 PM EDT us Ирина Lopez MD LAB BLOOD ORDERABLES Final R esult [facility] [address] [place] [address] * (ABNORMAL) Magnesium, Plasma (03/29/2025 7:58 PM EDT) Magnesium, Plasma 1.3(L) 1.9 - 2.4 mg/dL 03/29/2025 8:[address] [facility] Blood Arterial blood specimen / Unknown Arterial Puncture / Unknown 03/29/2025 7:58 PM EDT 03/29/2025 8:05 PM EDT us Ирина Lopez MD LAB BLOOD ORDERABLES Final R esult [facility] [address] [place] [address] * Fibrinogen (03/29/2025 7:58 PM EDT) Fibrinogen, Quantitative (Clottable) 294 208 - 459 mg/dL LAB COAGULATION METHOD 03/29/2025 8:[address] [facility] Blood Arterial blood specimen / Unknown Arterial Puncture / Unknown 03/29/2025 7:58 PM EDT 03/29/2025 8:05 PM EDT us Kiana Gusman CRNA LAB BLOOD ORDERABLES Final R esult Performing Organization Address City/[facility]/ZIP Co de Phone Number [facility] [address] [place] [address] * Protime-INR (03/29/2025 7:58 PM EDT) Pathologist [facility] Prothrombin Time 13.8 12.0 - 14.3 sec LAB COAGULATION METHOD 03/29/2025 8:[address] [facility] INR 1.0 0.9 - 1.1 LAB COAGULATION METHOD 03/29/2025 8:[address] [facility] Blood Arterial blood specimen / Unknown Arterial Puncture / Unknown 03/29/2025 7:58 PM EDT 03/29/2025 8:[address] [facility] - 03/29/2025 8:38 PM EDT OPTIMAL INR RANGES FOR PATIENT ON ORAL ANTICOAGULANT THERAPY Prevention of venous thromboembolism INR 2.0 to 3.0 In patients with heart disease: Atrial fibrillation INR 2.0 to 3.0 Valvular heart disease INR 2.0 to 3.0 Tissue heart valves INR 2.0 to 3.0 Mechanical prosthetic valves INR 2.5 to 3.5 Prevention of recurrent ME INR 2.5 to 3.5 us Kiana Gusman CRNA LAB BLOOD ORDERABLES Final R esult [facility] [address] [place] [address] * (ABNORMAL) CBC and differential (03/29/2025 7:58 PM EDT) [facility] WBC Count 8.18 3.70 - 10.30 10*3/uL LAB HEMATOLOGY METHOD 03/29/2025 8:[address] [facility] RBC Count 3.11(L) 4.60 - 6.10 10*6/uL LAB HEMATOLOGY METHOD 03/29/2025 8:[address] [facility] HGB 9.2(L) 13.7 - 17.5 g/dL LAB HEMATOLOGY METHOD 03/29/2025 8:[address] [facility] HCT 27.7(L) 40.0 - 51.0 % LAB HEMATOLOGY METHOD 03/29/2025 8:[address] [facility] Platelet Count 174 155 - 369 10*3/uL LAB HEMATOLOGY METHOD 03/29/2025 8:[address] [facility] MCV 89 79 - 98 fL LAB HEMATOLOGY METHOD 03/29/2025 8:[address] [facility] MCH 29.6 26.0 - 32.0 pg LAB HEMATOLOGY METHOD 03/29/2025 8:[address] [facility] MCHC 33.2 30.7 - 35.5 g/dL LAB HEMATOLOGY METHOD 03/29/2025 8:[address] [facility] RDW 12.6 11.5 - 14.5 % LAB HEMATOLOGY METHOD 03/29/2025 8:[address] [facility] MPV 9.3 8.8 - 12.5 fL LAB HEMATOLOGY METHOD 03/29/2025 8:[address] [facility] nRBC 0.0 <=0.0 per 100 WBCs LAB HEMATOLOGY METHOD 03/29/2025 8:[address] [facility] Differential Type Automated LAB HEMATOLOGY METHOD 03/29/2025 8:[address] [facility] Neutrophils % 86 % LAB HEMATOLOGY METHOD 03/29/2025 8:[address] [facility] Lymphocytes % 9 % LAB HEMATOLOGY METHOD 03/29/2025 8:[address] [facility] Monocytes % 5 % LAB HEMATOLOGY METHOD 03/29/2025 8:[address] [facility] Eosinophils % 0 % LAB HEMATOLOGY METHOD 03/29/2025 8:[address] [facility] Basophils % 0 % LAB HEMATOLOGY METHOD 03/29/2025 8:[address] [facility] Immature Granulocytes % 0 % LAB HEMATOLOGY METHOD 03/29/2025 8:[address] [facility] Neutrophils Absolute 7.00(H) 1.60 - 6.10 10*3/uL LAB HEMATOLOGY METHOD 03/29/2025 8:29 PM EDT [facility] Lymphocytes Absolute 0.71(L) 1.20 - 3.90 10*3/uL LAB HEMATOLOGY METHOD 03/29/2025 8:[address] [facility] Monocytes Absolute 0.40 0.30 - 0.90 10*3/uL LAB HEMATOLOGY METHOD 03/29/2025 8:[address] [facility] Eosinophils Absolute 0.02 0.00 - 0.50 10*3/uL LAB HEMATOLOGY METHOD 03/29/2025 8:[address] [facility] Basophils Absolute 0.02 0.00 - 0.10 10*3/uL LAB HEMATOLOGY METHOD 03/29/2025 8:[address] [facility] Immature Granulocytes Absolute 0.03 0.00 - 0.06 10*3/uL LAB HEMATOLOGY METHOD 03/29/2025 8:[address] [facility] Blood Arterial blood specimen / Unknown Arterial Puncture / Unknown 03/29/2025 7:58 PM EDT 03/29/2025 8:[address] [facility] - 03/29/2025 8:29 PM EDT Therapeutic decision making should be based on absolute values, rather than percentages. us Kiana L Gusman QUILL COLLECTOR LAB BLOOD ORDERABLES Final R esult Performing Organization Address City/[facility] Co de Phone Number [facility] [address] [place] [address] * (ABNORMAL) POCT glucose meter (03/29/2025 7:43 [...] for testing. Comment 03/29/2025 7:45 PM EDT [facility] Knitted Cloth Examiner ID Radha Slater 03/29/20 25 7:45 PM EDT [facility] Device ID [id number] 03/29/2025 7:45 PM EDT [facility] Specimen Type POC Capillary 03/29/2025 7:45 PM EDT [facility] Blood Capillary blood specimen / Unknown 03/29/2025 7:43 PM EDT 03/29/2025 7:45 PM EDT Ирина Lopez MD LAB POINT OF CARE TE ST DOCKED DEVICE UNSOLICITED RESULTS Final Result Performing Organization Address [facility] Co de Phone Number [facility] [address] [place] [address] * Surgical Pathology Exam (03/29/2025 5:10 PM EDT) Case Report Surgical Pathology Case: [id number] Authorizing Provider: Ирина Lopez MD Collected: 03/29/2025 1716 Ordering Location: [facility] Received: 03/30/2025 0756 Pathologist: [...] (specify site), lipoma 5 2:[address] [facility] Final Diagnosis A. LUNG, BRONCHIAL [...] EXCISION: - LIPOMA. 5 2:45 PM EDT [facility] at 1445 EDT Synoptic Checklist LUNG [...] pN Category: pN0 5 2:[address] [facility] Clinical Information Non-small cell cancer of left lung 5 2:[address] [facility] Intraoperative Consultation A. BRONCHIAL MARGIN FSA: No tumor seen. Todd Gibbs MD. 03/29/2025 @ 1745. 5 2:[address] [facility] Special and Immunohistochemical Stains Special Stain: [id number] Elastic Trichrome: Demonstrates visceral pleural invasion F8-2 Elastic Trichrome: Demonstrates visceral pleural invasion All controls show appropriate reactivity. All immunohistochemis try, in situ hybridization, and histochemical tests were developed by and are performed at the [facility], [address] [place] [address]. All tests reported here, except those addressing [...] on decalcified specimens. 5 2:[address] [facility] Gross Description A. BRONCHIAL MARGIN [...] 0.3-0.6 cm in greatest dimension are identified. Navigation Officer sections are submitted as follows: F1: Bronchial margin F2: Vascular margins F3: Nearest stapled margin, en face F4: Grossly unremarkable parenchyma F5-F10: Mass, entirely submitted F11: Two intact lymph nodes Cold Time: 13h 43m SWATI Wong ([facility]) G. LIPOMA The specimen is received fresh and placed in formalin, labeled l ipoma , and consists of a 5.8 x 5.6 x 2.1 cm unoriented portion of leggett-yellow lobulated fibroadipose tissue. The external surface is inked blue. Sectioning reveals a leggett-yellow lobulated cut surface. No areas of hemorrhage or necrosis are identified. Navigation Officer sections are submitted in cassettes G1-G3. Cold Time: 13h 05m SWATI Wong ([facility]) 5 2:[address] [facility] Note: A resident was involved in the service. I attest I examined the relevant preparations for the specimens and confirmed the diagnosis or interpretation. 5 2:[address] [facility] Tissue Structure of lymph node [...] MD LAB PATHOLOGY ORDERABLES Fin al Result [facility] [address] [place] [address] * (ABNORMAL) Blood gas panel, arterial (03/29/2025 4:05 PM EDT) pH, Arterial 7.38 7.31 - 7.42 LAB HEMATOLOGY METHOD 03/29/2025 4:[address] [facility] pCO2, Arterial 45 32 - 45 mmHg LAB HEMATOLOGY METHOD 03/29/2025 4:[address] [facility] pO2, Arterial 216 >70 mmHg LAB HEMATOLOGY METHOD 03/29/2025 4:[address] [facility] SO2, Measured, Arterial 100(H) 94 - 98 % LAB HEMATOLOGY METHOD 03/29/2025 4:[address] [facility] Base Excess, Arterial 1.2 -2.0 - 3.0 mmol/L LAB HEMATOLOGY METHOD 03/29/2025 4:[address] [facility] Bicarbonate, Calculated, Arterial 27(H) 22 - 26 mmol/L LAB HEMATOLOGY METHOD 03/29/2025 4:[address] [facility] Hematocrit, Whole Blood 31.6(L) 40.0 - 51.0 % LAB HEMATOLOGY METHOD 03/29/2025 4:[address] [facility] Sodium, Whole Blood 138 136 - 145 mmol/L LAB HEMATOLOGY METHOD 03/29/2025 4:[address] [facility] Potassium, Whole Blood 3.8 3.6 - 4.9 mmol/L LAB HEMATOLOGY METHOD 03/29/2025 4:[address] [facility] Chloride, Whole Blood 103 97 - 107 mmol/L LAB HEMATOLOGY METHOD 03/29/2025 4:[address] [facility] Glucose, Whole Blood 123(H) 74 - 99 mg/dL LAB HEMATOLOGY METHOD 03/29/2025 4:[address] [facility] Ionized Calcium, Whole Blood 4.4(L) 4.6 - 5.1 mg/dL LAB HEMATOLOGY METHOD 03/29/2025 4:[address] [facility] Lactate, Arterial, Whole Blood 0.8 0.5 - 1.6 mmol/L LAB HEMATOLOGY METHOD 03/29/2025 4:[address] [facility] Blood Arterial blood specimen / Unknown 03/29/2025 4:05 PM EDT 03/29/2025 4:11 PM EDT Comment:Pre-op diagnosis: Non-small cell cancer of left lung us Ирина Lopez MD LAB BLOOD ORDERABLES Final R esult [facility] [address] [place] [place] [address] * APTT (03/29/2025 4:04 PM EDT) aPTT 28 25 - 35 sec LAB COAGULATION METHOD 03/29/2025 4:[address] [facility] Blood Arterial blood specimen / Unknown 03/29/2025 4:04 PM EDT 03/29/2025 4:18 PM EDT Comment:Pre-op diagnosis: Non-small cell cancer of left lung Ирина Lopez MD LAB BLOOD ORDERABLES Final R esult Performing Organization Address City/[facility] Co de Phone Number [facility] [address] [place] [address] * Prothrombin Time/INR (03/29/2025 4:04 PM EDT) Prothrombin Time 13.4 12.0 - 14.3 sec LAB COAGULATION METHOD 03/29/2025 4:[address] [facility] INR 1.0 0.9 - 1.1 LAB COAGULATION METHOD 03/29/2025 4:[address] [facility] Blood Arterial blood specimen / Unknown 03/29/2025 4:04 PM EDT 03/29/2025 4:18 PM EDT Comment:Pre-op diagnosis: Non-small cell cancer of left lung Narrative [facility] - 03/29/2025 4:39 PM EDT OPTIMAL INR RANGES FOR PATIENT ON ORAL ANTICOAGULANT THERAPY Prevention of venous thromboembolism INR 2.0 to 3.0 In patients with heart disease: Atrial fibrillation INR 2.0 to 3.0 Valvular heart disease INR 2.0 to 3.0 Tissue heart valves INR 2.0 to 3.0 Mechanical prosthetic valves INR 2.5 to 3.5 Prevention of recurrent ME INR 2.5 to 3.5 Ирина Lopez MD LAB BLOOD ORDERABLES Final R esult Performing Organization Address City/[facility]/ZIP Co de Phone Number [facility] [address] [place] [address] * Fibrinogen, Quantitative (Clottable) (03/29/2025 4:04 PM EDT) Fibrinogen, Quantitative (Clottable) 336 208 - 459 mg/dL LAB COAGULATION METHOD 03/29/2025 4:[address] [facility] Blood Arterial blood specimen / Unknown 03/29/2025 4:04 PM EDT 03/29/2025 4:18 PM EDT Comment:Pre-op diagnosis: Non-small cell cancer of left lung us Ирина Lopez MD LAB BLOOD ORDERABLES Final R esult [facility] [address] [place] [address] * (ABNORMAL) CBC W/O Differential (03/29/2025 4:04 PM EDT) WBC Count 3.70 3.70 - 10.30 10*3/uL LAB HEMATOLOGY METHOD 03/29/2025 4:[address] [facility] RBC Count 3.52(L) 4.60 - 6.10 10*6/uL LAB HEMATOLOGY METHOD 03/29/2025 4:[address] [facility] HGB 10.5(L) 13.7 - 17.5 g/dL LAB HEMATOLOGY METHOD 03/29/2025 4:[address] [facility] HCT 31.1(L) 40.0 - 51.0 % LAB HEMATOLOGY METHOD 03/29/2025 4:[address] [facility] Platelet Count 184 155 - 369 10*3/uL LAB HEMATOLOGY METHOD 03/29/2025 4:[address] [facility] MCV 88 79 - 98 fL LAB HEMATOLOGY METHOD 03/29/2025 4:[address] [facility] MCH 29.8 26.0 - 32.0 pg LAB HEMATOLOGY METHOD 03/29/2025 4:[address] [facility] MCHC 33.8 30.7 - 35.5 g/dL LAB HEMATOLOGY METHOD 03/29/2025 4:[address] [facility] RDW 12.6 11.5 - 14.5 % LAB HEMATOLOGY METHOD 03/29/2025 4:[address] [facility] MPV 9.4 8.8 - 12.5 fL LAB HEMATOLOGY METHOD 03/29/2025 4:[address] [facility] nRBC 0.0 <=0.0 per 100 WBCs LAB HEMATOLOGY METHOD 03/29/2025 4:[address] [facility] Blood Arterial blood specimen / Unknown 03/29/2025 4:04 PM EDT 03/29/2025 4:20 PM EDT Comment:Pre-op diagnosis: Non-small cell cancer of left lung us Ирина Lopez MD LAB BLOOD ORDERABLES Final R esult [facility] [address] [place] [address] * (ABNORMAL) Blood gas panel, arterial (03/29/2025 2:29 PM EDT) pH, Arterial 7.39 7.31 - 7.42 LAB HEMATOLOGY METHOD 03/29/2025 2:[address] [facility] pCO2, Arterial 44 32 - 45 mmHg LAB HEMATOLOGY METHOD 03/29/2025 2:[address] [facility] pO2, Arterial 190 >70 mmHg LAB HEMATOLOGY METHOD 03/29/2025 2:[address] [facility] SO2, Measured, Arterial 100(H) 94 - 98 % LAB HEMATOLOGY METHOD 03/29/2025 2:[address] [facility] Base Excess, Arterial 1.5 -2.0 - 3.0 mmol/L LAB HEMATOLOGY METHOD 03/29/2025 2:[address] [facility] Bicarbonate, Calculated, Arterial 27(H) 22 - 26 mmol/L LAB HEMATOLOGY METHOD 03/29/2025 2:[address] [facility] Hematocrit, Whole Blood 32.4(L) 40.0 - 51.0 % LAB HEMATOLOGY METHOD 03/29/2025 2:[address] [facility] Sodium, Whole Blood 139 136 - 145 mmol/L LAB HEMATOLOGY METHOD 03/29/2025 2:[address] [facility] Potassium, Whole Blood 3.6 3.6 - 4.9 mmol/L LAB HEMATOLOGY METHOD 03/29/2025 2:[address] [facility] Chloride, Whole Blood 104 97 - 107 mmol/L LAB HEMATOLOGY METHOD 03/29/2025 2:[address] [facility] Glucose, Whole Blood 96 74 - 99 mg/dL LAB HEMATOLOGY METHOD 03/29/2025 2:[address] [facility] Ionized Calcium, Whole Blood 4.4(L) 4.6 - 5.1 mg/dL LAB HEMATOLOGY METHOD 03/29/2025 2:[address] [facility] Lactate, Arterial, Whole Blood 1.4 0.5 - 1.6 mmol/L LAB HEMATOLOGY METHOD 03/29/2025 2:[address] [facility] Blood Arterial blood specimen / Unknown 03/29/2025 2:29 PM EDT 03/29/2025 2:34 PM EDT Comment:Pre-op diagnosis: Non-small cell cancer of left lung us Ирина Lopez MD LAB BLOOD ORDERABLES Final R esult Performing Organization Address City/[facility]/ZIP Co de Phone Number [facility] [address] [place] [address] * (ABNORMAL) POCT glucose meter (03/29/2025 12:48 [...] Comment 03/29/2025 12:50 PM [facility]T [facility] Knitted Cloth Examiner ID Rosalie Cuevas 03/29/20 25 12:50 PM [facility]T [facility] Device ID [id number] 03/29/2025 12:50 PM [facility]T [facility] Specimen Type POC Venous 03/29/2025 12:50 PM EDT [facility] Blood Venous blood specimen / Unknown 03/29/2025 12:48 PM EDT 03/29/2025 12:50 PM EDT Ирина Lopez MD LAB POINT OF CARE TE ST DOCKED DEVICE UNSOLICITED RESULTS Final Result Performing Organization Address City/[facility]/ZIP Co de Phone Number [facility] [address] [place] [address] * (ABNORMAL) Blood gas, venous (03/29/2025 12:27 PM EDT) pH, Venous 7.36 7.32 - 7.43 LAB HEMATOLOGY METHOD 03/29/2025 12:[address] [facility] pCO2, Venous 49 40 - 55 mmHg LAB HEMATOLOGY METHOD 03/29/2025 12:[address] [facility] pO2, Venous 54(H) 25 - 40 mmHg LAB HEMATOLOGY METHOD 03/29/2025 12:[address] [facility] SO2, Measured, Venous 87(H) 65 - 80 % LAB HEMATOLOGY METHOD 03/29/2025 12:[address] [facility] Base Excess, Venous 1.7 -2.0 - 3.0 mmol/L LAB HEMATOLOGY METHOD 03/29/2025 12:[address] [facility] Bicarbonate, Calculated, Venous 28(H) 22 - 26 mmol/L LAB HEMATOLOGY METHOD 03/29/2025 12:[address] [facility] Hematocrit, Whole Blood 39.2(L) 40.0 - 51.0 % LAB HEMATOLOGY METHOD 03/29/2025 12:[address] [facility] Sodium, Whole Blood 140 136 - 145 mmol/L LAB HEMATOLOGY METHOD 03/29/2025 12:[address] [facility] Potassium, Whole Blood 4.0 3.6 - 4.9 mmol/L LAB HEMATOLOGY METHOD 03/29/2025 12:[address] [facility] Chloride, Whole Blood 103 97 - 107 mmol/L LAB HEMATOLOGY METHOD 03/29/2025 12:[address] [facility] Glucose, Whole Blood 97 74 - 99 mg/dL LAB HEMATOLOGY METHOD 03/29/2025 12:[address] [facility] Lactate, Venous, Whole Blood 1.6 0.5 - 2.2 mmol/L LAB HEMATOLOGY METHOD 03/29/2025 12:[address] [facility] Ionized Calcium, Whole Blood 4.5(L) 4.6 - 5.1 mg/dL LAB HEMATOLOGY METHOD 03/29/2025 12:[address] [facility] Blood Venous blood specimen / Unknown Venipuncture / Unknown 03/29/2025 12:27 PM EDT 03/29/2025 12:49 PM EDT Robert Santos MD LAB BLOOD ORDERABLES Final Resu lt [facility] [address] [place] [address] * Type and Screen (03/29/2025 12:27 PM [...] Final Result Performing Organization Address [facility] de Phone Number BLOOD BANK [address] [place] [address] documented in this encounter Visit Diagnoses Diagnosis [...] documented as of this encounter Care Teams Supervisor Vat House Relationship Specialty Start Date End Date Casa Phillips MD [address] [place] [address] PCP - General 02/22/25 Forrest Nickerson, BIGN [address] [place] [address] 03/06/23 documented as of this encounter
--- OUTSIDE RECORDS SUMMARY | 2025-03-29 13:34 | XMS_ITS | Encounter Summary ---
Author Organization [facility] Address [address] [place] [address] Care Team Providers Care Booking Police Officer Name Role Phone Forrest Nickerson OCCUPATIONAL HEALTH NURSING DIRECTOR Unavailable [phone] Casa Phillips MD Primary Care Provider [phone] Reason for Visit * Auth/Cert (Routine) Specialty Diagnoses / Procedures Referred By Contac t Referred To Contact Diagnoses Non-small cell cancer of left lung (CMS/HCC) Non-small cell cancer of left lung Procedures [place] THORACOSCOPY SURG LOBECTOMY LEFT VATS LOBECTOMY Ирина Lopez MD [address] [facility] [address] [place] [address] Phone: tel: fax: P[facility] OPERATING ROOM [address] [place] [address] Phone: tel: Referral ID Status Reason Start Date Expiration Date Visits Re quested Visits Authorized [id number] 1 1 Encounter Details Date Type Department Care Team (Late st Contact Info) Description 03/29/2025 1:34 PM EDT Anesthesia Event [facility] RO[facility] [address] [place] [address] Jimmy Kim MD [address] [place] [address] Laquita Brand MD [address] [place] [address] Anesthesia Record Procedure Summary Procedure Name Responsible Anesthesiologist Anesthesia Start Time Anesthesia Stop Time LEFT VATS LOBECTOMY coverted to open, Left thoracotomy, 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 No 03/31/2025 Utilities Answer Date [...] procedure well with no complications. Staffing Performed: OVERLOCK ELASTIC ATTACHER * Anesthesia Procedure Notes - Robert Santos MD - 03/29/2025 2:17 PM EDT Associated Order(s): Airway Airway Date/Time: 03/29/2025 1:48 PM Reason: elective Airway not difficult General Information and Staff Patient location during procedure: OR OVERLOCK ELASTIC ATTACHER: Kiana Gusman CRNA Performed: OVERLOCK ELASTIC ATTACHER Patient Condition Indications for airway management: anesthesia [...] from the original note were not included. [facility] Cole Feliz Jr. is a 79 y.o. [...] with Ирина Lopez MD on 03/29/2025 in [facility] [place]. Past Medical History[7] Family History[8] Social History[9] [...] artery disease (patient denies), hyperlipidemia and past [place]. Does not have atrial fibrillation, CHF, dyspnea, [...] Date Arthritis CAD (coronary artery disease) Diabetes ([facility]) Hepatitis High blood pressure [...] Pav CC Head, Neck & Respiratory [address] [facility], [address]nd [place] [address] Nikolai Naranjo MD [address] [place] [address] documented as of this encounter Procedures Procedure Name Priority Date/Time Associated Diagnosis Comments ANESTHESIA PERIPHERAL IV PLACEMENT Routine 03/29/2025 2:00 PM EDT ANESTHESIA ARTERIAL LINE PLACEMENT Routine 03/29/2025 1:57 PM EDT PB ANESTHESIA PLACEHOLDER Routine 03/29/2025 1:48 PM EDT [place] AN ELECTIVE ENDOTRACHEAL AIRWAY Routine 03/29/2025 1:48 [...] procedure well with no complications. Staffing Performed: OVERLOCK ELASTIC ATTACHER Robert Santos MD ANESTHESIA ORDERABLES Edited Re sult - Final * [place] AN ELECTIVE ENDOTRACHEAL AIRWAY, PB ANESTHESIA PLACEHOLDER (03/29/2025 1:48 PM EDT) Narrative Robert Santos MD - 03/29/2025 1:48 PM EDT Robert Santos MD 03/29/2025 3:02 PM Airway Date/Time: 03/29/2025 1:48 PM Reason: elective Airway not difficult General Information and Staff Patient location during procedure: OR OVERLOCK ELASTIC ATTACHER: Kiana Gusman OVERLOCK ELASTIC ATTACHER Performed: OVERLOCK ELASTIC ATTACHER Patient Condition Indications for airway management: anesthesia [...] documented as of this encounter Care Teams Booking Police Officer Relationship Specialty Start Date End Date Casa Phillips MD [address] [place] [address] PCP - General 02/22/25 Forrest Nickerson APRN [address] [place] [phone] 03/06/23 documented as of this encounter
--- OUTSIDE RECORDS SUMMARY | 2025-04-06 10:40 | XMS_ITS | Encounter Summary ---
Author Organization [facility] Address [address] [place] [address] Care Team Providers Care Wait Staff Name Role Phone Demetrio Nickersonann Theresa VALUATION MANAGER Unavailable [phone] Casa Phillips MD Primary Care Provider [phone] Reason for Referral * Consultation (Routine) - Authorized Specialty Diagnoses / Procedures Referred By Contac t Referred To Contact Medical Oncology Diagnoses Non-small cell cancer of left lung (CMS/HCC) Nikolai Naranjo MD [address] [facility] [address] [place] [address] Phone: tel: fax: Referral ID Status Reason Start Date Expiration Date Visits Requested Visits Authorized [id number] Authorized Specialty Services Required 04/06/2025 10/06/2026 [address] Dagoberto Rosales at [facility] Reason for Visit * Reason Comments Follow-up Encounter Details Date Type Department Care Team ([facility] st Contact Info) Description 04/06/2025 10:40 AM EDT Office Visit Pav CC Head, Neck & Respiratory [address], [address] [place] [address] Nikolai Naranjo MD [address] [facility] [address] [place] [address] Non-small cell cancer of left lung (CMS/HCC) [...] any time in the past 12 m [facility], were you homeless or living in a alf (including now)? No 03/31/2025 Utilities Answer Date Recorded In the past 12 months has [employer], gas, oil, or water company threatened to [...] image 161 series 4 and 3. A Qyf-HTO-jles subpleural 4 mm tiny perifissural nodule at [...] cane since 2023)- Pathology Fine needle aspiration: [id number] Order: [id number] Collected 01/28/2025 14:07 Final Diagnosis A. LUNG, [...] upper lobectomy on 03/29/2025. Surgical Pathology Exam: [id number] Order: [id number] Collected 03/29/2025 17:10 Status: Final result Dx: [...] Sister with lung cancer (heavy tobacco smoker ufez0av hand exposure). Social History[4] --tobacco smoker since age 13: cigars then switched to cigarettes 1PPD. Quit from 9511-7119, but later relapsed in 2015 to present (3-4 cigarettes x day). Re-contemplating phase, open to explore NRT options. --2nd hand tobacco smoking exposure from both parents during early to young adult age --occasional alcohol. No illicit drug use. [place] [place] [address]. Allergies: Cetirizine Medications: Current Medications[5] Review of [...] scanner: Siemens Biograph 40 mCT. PET/CT acquisition: Xjcurc-xp-vpi-thighs. Standardized uptake value (SUV): Corrected for body weight only. CT: Low-dose, vny-tpevdq-uuvv, without intravenous contrast. TOTAL DLP (Dose Length [...] 1.8 (image 161 series 4 and 3). Rpw-TWH-cfqd subpleural 4 mm tiny perifissural nodule is [...] s/p PCI x3 (last in 2020 for xlic-pvck-FCS; on DAPT), probable COPD [facility] heavy tobacco use plus 2nd hand exposure [...] - RTC in 3 months -referral to [facility] oncologist Dr. Rosales # Imbalance with [...] TTOP enrollment at , likelyeligible. # Nutrition- global coordinator consult next visit. Chronic conditions: HR-CAD s/p PCI on DAPT (last PCI in 2020)- asymptomatic. Prostatomegaly s/p prostate surgery x3 by local urology provider (last in 2023; [facility]). T2DM with recent weight loss (25 lbs [...] [facility], [address]nd [place] [address] Nikolai Naranjo MD [address] [facility] [address] [place] [address] Scheduled Referrals Name Type Priority Associated Diagnoses [...] documented as of this encounter Care Teams Wait Staff Relationship Specialty Start Date End Date Casa Phillips MD [address] [place] [address] PCP - General 02/22/25 Forrest Nickerson APRN [address] [place] [address] 03/06/23 documented as of this encounter
--- OUTSIDE RECORDS SUMMARY | 2025-04-06 11:30 | XMS_ITS | Encounter Summary ---
Author Organization [facility] Address [address] [place] [address] Care Team Providers Care Nuclear Plant Operator Name Role Phone Demetrio trevinoann Cardenas SHELL FISHERMAN Unavailable [phone] Casa Phillips MD Primary Care Provider [phone] Encounter Details Date Type Department Care Team (Late st Contact Info) Description 04/06/2025 11:30 AM EDT Office Visit Pav CC Head, Neck & Respiratory [address] [place] [address] Ирина Lopez MD [address] [facility] [address] [place] [address] Non-small cell cancer of left [...] any time in the past 12 m [facility], were you homeless or living in a [...] from the original note were not included. [facility] Department of Surgery Section of Thoracic Surgery Outpatient Clinic Note Diagnosis: lung cancer Procedure: 03/29/2025 L thoracotomy HIEN Pathology: [id number] (2.6 cm with visceral pleural invasion) Interval [...] it starts draining again. Ирина Lopez MD pet nutrition specialist Thoracic Surgery documented in this encounter Plan of Treatment Upcoming Encounters Date Type Department Care Team (Late st Contact Info) Description 07/06/2025 10:40 AM EDT Office Visit Pav CC Head, Neck & Respiratory 800 [facility], [address] [place] [address] Nikolai Naranjo MD 800 [facility] [address] [place] [address] documented as of this encounter Visit Diagnoses [...] documented as of this encounter Care Teams Nuclear Plant Operator Relationship Specialty Start Date End Date Casa Phillips MD [address] [place] [address] PCP - General 02/22/25 Forrest Nickerson APRN [address] [place] [address] 03/06/23 documented as of this encounter
--- OUTSIDE RECORDS SUMMARY | 2025-04-20 10:00 | XMS_ITS | Encounter Summary ---
Author Organization [facility] Address [address] [place] [address] Care Team Providers Care Software Licensing Executive Name Role Phone Forrest Nickerson FIRE MANAGEMENT SPECIALIST Unavailable [phone] Casa Phillips MD Primary Care Provider [phone] Encounter Details Date Type Department Care Team (Latest Contact Info) Description 04/20/2025 10:00 AM EDT - 04/20/2025 11:59 PM EDT Hospital Encounter PAV H Radiology [address] [place] [address] Non-small cell cancer of left lung (CMS/HCC) [...] time in the past 12 m [facility], were you homeless or living in [...] 1 tablet by mouth daily. HYDROcodone-acet aminophen (Herrick) 10-325 MG tablet Take 1 tablet by mouth every 6 hours as needed for severe pain for up to 10 days. 40 tablet 04/20/2025 metFORMIN (Glucophage) 1000 MG tablet Take 1 [...] capsule by mouth daily. 30 capsule 04/04/2025 documented as of this encounter Plan of Treatment Upcoming Encounters Date Type Department Care Team ([facility] st Contact Info) Description 07/06/2025 10:40 AM EDT Office Visit Pav CC Head, Neck & Respiratory [address] [facility], 2nd Floor [address] Nikolai Naranjo MD 800 [facility] [address] [address] documented as of this encounter Procedures Procedure [...] documented as of this encounter Care Teams Software Licensing Executive Relationship Specialty Start Date End Date Casa Phillips MD [address] [place] [address] PCP - General 02/22/25 Forrest Nickerson APRN [address] [place] [address] 03/06/23 documented as of this encounter
--- OUTSIDE RECORDS SUMMARY | 2025-04-20 10:30 | XMS_ITS | Encounter Summary ---
Author Organization [facility] Address [address] [place] [address] Care Team Providers Care Offbearer Sewer Pipe Name Role Phone Demetrio trevinoann Theresa RECONCILIATION ANALYST Unavailable [phone] Casa Phillips MD Primary Care Provider [phone] Reason for Visit * Reason Comments Follow-up Encounter Details Date Type Department Care Team (Late st Contact Info) Description 04/20/2025 10:30 AM EDT Office Visit Pav CC Head, Neck & Respiratory [address], 2[address] [place] [address] Ирина Lopez MD [address] [facility] [address] [place] [address] 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) (Primary Dx) Social [...] any time in the past 12 m [facility], were you homeless or living in a [...] Sign Reading Time Taken Comments Blood Pressure 128/71 04/20/2025 10:21 AM EDT Pulse 89 04/20/2025 10:21 AM EDT Temperature 36.4 C (97.5 F) 04/20/2025 10:21 AM EDT Respiratory Rate 14 04/20/2025 10:21 AM EDT Oxygen Saturation 98% 04/20/2025 10:21 AM EDT Inhaled Oxygen Concentration - - Weight 64.1 kg (141 lb 5 oz) 04/20/2025 10:21 AM EDT Height - - Body Mass Index 20.28 03/30/2025 1:25 PM EDT documented in this encounter Miscellaneous Notes * Progress Notes - Danuta Godinez PA - 04/20/2025 10:30 AM EDT Images from the original note were not included. [facility] Department of Surgery Section of Thoracic Surgery Outpatient Clinic Note Diagnosis: lung cancer Procedure: 03/29/2025 L thoracotomy HIEN Pathology: [id number] (2.6 cm with visceral pleural invasion) Interval History: Cole Feliz Jr. is a 79 y.o. 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 He was seen by Dr. Lopez on 04/06 for concerns of drainage from his chest tube site. It had discontinued by the time he was seen in clinic so he was instructed to call if it resumed. He has otherwisebeen doing well. Denies any significant sob, cough, fevers. Still having some pain requiring [place]. ROS: General: no fevers or chills, no [...] abdominal pain, no constipation, no diarrhea, no melenal, no hematochezia, no dysphagia, no heartburn Skin: no rash Neuro: no numbness, no tingling, no headache, no difficulties with speech, no gait disturbance Heme: no easy bruising, no bleeding from the gums Endo: No polyuria or polydypsia Psych: no depression or anxiety Physical exam: Visit Vitals BP 128/71 Pulse 89 Temp 36.4 ??C (97.5 ??F) Wt 64.1 kg (141 lb 5 oz) SpO2 98% BMI 20.28 kg/m?? General: alert and oriented, appropriate Lungs: CTA B, no wheezes or rhonchi Heart: RRR, no murmurs Abdomen: soft NT/ND, normal bowel sounds Lymph nodes: no palpable supraclavicular or cervical adenopathy Extremities: no peripheral edema Skin: no rash, no cyanosis and warm to touch Psychiatric: oriented to person/place/time and normal mood/affect Incisions: healing well; sutures removed Imaging: CXR - small residual postoperative fluid collection Additional Testing: none Assessment and Plan: Cole Ted Feliz Jr. is a 79 y.o. 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 Doing well and recovering as expected. He is planning to receive adjuvant chemotherapy with Dr. Rosales. He can continue ibarra rveillance with him and return to TSS clinic on as needed basis. SWATI Doherty 04/20/25 10:43 AM Cosigned by Ирина Lopez MD at 04/23/2025 4:09 PM EDT Associated attestation - Ирина Lopez MD - 04/23/2025 4:09 PM EDT I attest to being involved in more than half the total time in patient care. Mr Feliz is recovering well from his left upper lobectomy for stage IB lung cancer. He is planning adjuvant chemotherapy with Dr Rosales and will continue follow up with him. The patient does not need any further specific follow up with the thoracic surgery program but they were encouraged to contact us at any time with any problems or questions. documented in this encounter Plan of Treatment Upcoming Encounters Date Type Department Care Team ([facility] Contact Info) Description 07/06/2025 10:40 AM EDT Office Visit Pav CC Head, Neck & Respiratory 800 [facility], 2nd [place] [address] Nikolai Naranjo MD 800 [facility] Lorin Avila [facility] [address] [place] [address] documented as of this encounter Visit Diagnoses Diagnosis 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)- Primary documented in this encounter Additional Health Concerns Assessment Noted Time A fall risk assessment has been complete d for the patient 04/20/2025 10:24 AM EDT A Body Mass Index follow-up plan has been documented for the patient 04/23/2025 4:10 PM EDT documented as of this encounter Care Teams Offbearer Sewer Pipe Relationship Specialty Start Date End Date Casa Phillips MD [address] [place] [address] PCP - General 02/22/25 Forrest Nickerson APRN [address] [place] [address] 03/06/23 documented as of this encounter
[2025-04-27 08:39] VITALS: BMI 20.6
--- OUTSIDE RECORDS SUMMARY | 2025-04-27 08:40 | XMS_ITS | Referral Summary ---
Author Organization [employer] ([place], [place], [place], [place]) Address [address] [place] [address] Care Team Providers Care Director Of Human Resources Name Role Phone Unavailable Primary Care Provider [...] Date Terrance rded Speak language other than Bengali at home Not on file 11/01/2023 Want [...] Advance Directives For more information, please contact: [phone] * Full Code (Latest Code Status on File) Date Activated Date Inactivated Comments 05/31/2023 2:57 AM 06/05/2023 3:16 PM -Attempt Res uscitation if person has no pulse and is not breathing. -If no pulse or not breathing attempt CPR/CODE. -Call Rapid Response if patient is in distress.
--- OUTSIDE RECORDS SUMMARY | 2025-04-27 08:40 | XMS_ITS | Clinical Summary ---
Author Organization [employer] ([place], [place], [place], [place]) Address [address] [place] [address] Care Team Providers Care Director Cpg Name Role Phone Unavailable Primary Care Provider [...] Date Terrance rded Speak language other than Slovenian at home Not on file 11/01/2023 Want [...] 2024 Falls Risk Screening 10/14/2024 Influenza Vaccine (#1) 2025 Advance Directives For more information, please contact: [phone] * Full Code (Latest Code Status on File) Date Activated Date Inactivated Comments 05/31/2023 2:57 AM 06/05/2023 3:16 PM -Attempt Res uscitation if person has no pulse and is not breathing. -If no pulse or not breathing attempt CPR/CODE. -Call Rapid Response if patient is in distress.
--- OUTSIDE RECORDS SUMMARY | 2025-04-27 08:40 | XMS_ITS | Encounter Summary ---
Author Organization [facility] Address [address] [place] [address] Care Team Providers Care Stitch Welder Name Role Phone Deep Keen APRN Primary Care Provider [phone] Forrest Nickerson APRN Unavailable [phone] Casa Phillips MD Primary Care Provider [phone] Encounter Details Date Type Department Care Team (Late Contact Info) Description 05/12/2024 Orders Only External Location [address] [place] [id number] Provider, External Social History Tobacco Use Types [...] Upcoming Encounters Date Type Department Care Team ([facility] Contact Info) Description 07/06/2025 10:40 AM EDT Office Visit [facility] [address] [facility], [address] [place] [address] Nikolai Naranjo MD [address] [facility] [address] [place] [address] documented as of this encounter Procedures Procedure [...] documented as of this encounter Care Teams Stitch Welder Relationship Specialty Start Date End Date Deep Keen APRN [address] [place] [id number] PCP - General 03/06/23 02/21/25 Casa Phillips MD [address] [place] [address] PCP - General 02/22/25 Forrest Nickerson APRN [address] [place] [address] 03/06/23 documented as of this encounter
--- OUTSIDE RECORDS SUMMARY | 2025-04-27 08:41 | XMS_ITS | Encounter Summary ---
Author Organization [facility] Address [address] [place] [address] Care Team Providers Care Maintenance Mechanic Elevators Name Role Phone Demetrio Nickersonann Cardenas FLOOR SPECIALIST Unavailable [phone] Casa Phillips MD Primary Care Provider [phone] Encounter Details Date Type Department Care Team (Late st Contact Info) Description 04/06/2025 Telephone [facility] [address] [facility], 2nd [place] [address] Nikolai Naranjo MD [address] [facility] [address] [place] [address] Social History Tobacco Use Types [...] any time in the past 12 m [facility], were you homeless or living in [...] Head, Neck & Respiratory [address] [facility], [address] [place] [address] Nikolai Naranjo MD [address] [facility] [address] [place] [address] documented as of this encounter Visit Diagnoses Not on filedocumented in this encounter Additional Health Concerns Assessment Noted Time A fall risk assessment has been complete d for the patient 04/06/2025 10:27 AM EDT A Body Mass Index follow-up plan has been documented for the patient 04/06/2025 12:11 PM EDT documented as of this encounter Care Teams Maintenance Mechanic Elevators Relationship Specialty Start Date End Date Casa Phillips MD [address] [place] [address] PCP - General 02/22/25 Forrest Nickerson APRN [address] [place] [address] 03/06/23 documented as of this encounter
--- OUTSIDE RECORDS SUMMARY | 2025-04-27 08:41 | XMS_ITS | Clinical Summary ---
Author Organization [facility] Address [address] [place] [address] Care Team Providers Care Boilermaker Loftsman Name Role Phone Forrest Nickerson LOGISTICS ANALYST Unavailable [phone] Casa Phillips MD Primary Care Provider [phone] Allergies Active Allergy Reactions Criticality Noted Date [...] Take 1 tablet by mouth daily. Active tamsulosin (Flomax) 0.4 MG 24 hr capsule Take 1 capsule by mouth daily. 30 capsule 5 025 Active polyethylene glycol (Miralax) 17 g packet Take 17 g by mouth daily. 30 packet 5 Active Additional Information Patient not taking.Reported on 04/06/2025 methocarbamol (Robaxin) 500 MG tablet Take 1 tablet by mouth every 6 hours for 14 days. 56 tablet 5 Active oxyCODONE (Roxicodone) 5 MG immediate release tablet Take 1 tablet by mouth every 6 hours as needed for moderate pain for up to 15 doses. 15 tablet 5 Active naloxone (Narcan) 4 mg/0.1 mL nasal spray 1. Give 1 spray in nostril for no/slow breathing or cannot wake after opioid use 2. Call 911 3. Repeat in other nostril if symptoms continue 1 each 5 Active HYDROcodone-ac etaminophen ([place]) 10-325 MG tablet Take 1 tablet by mouth every 6 hours as needed for severe pain for up to 10 days. 40 tablet 5 025 Active acetaminophen (Tylenol) 500 MG tablet Take 2 tablets by mouth every 6 hours for 14 days. 112 tablet 5 025 senna-docusate (Betty-Colace) 8.6-50 MG tablet Take 2 tablets by mouth 2 times a day for 14 days. 56 tablet 5 025 Additional Information Patient not taking.Reported on 04/06/2025 HYDROcodone-ac etaminophen ([place]) 10-325 MG tablet Take 1 tablet by mouth every 6 hours as needed for severe pain for up to 20 days. 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) (Primary Dx) 04/20/2025 10:00 AM EDT - 04/20/2025 11:59 PM EDT Hospital Encounter [facility] Radiology 800 [place] [phone] Non-small cell cancer of left lung (CMS/HCC) Discharge Disposition: Home or Self Care 04/20/2025 Telephone [facility] [address] [address] Ирина Lopez MD 04/20/2025 Travel 04/19/2025 Telephone [facility] [address] [address] Manny Lopez MD 04/07/2025 Telephone [facility] Hematology/BMT and Cellular Therapy Program [address] [place] [phone] Tyler Montero 04/07/2025 Telephone [facility] Hematology/BMT and Cellular Therapy Program [address] [address] Tyler Montero 04/07/2025 Telephone [facility] Hematology/BMT and Cellular Therapy Program [address] [address] Dayton Monteroh J 04/07/2025 Telephone [facility] 800 [facility], [address] [place] [address] Aishwarya Dye RN 04/06/2025 11:30 AM EDT Office Visit [facility] 800 [facility], [address] [place] [phone] Ирина Lopez MD Non-small cell cancer of left lung (CMS/HCC) (Primary Dx) 04/06/2025 10:40 AM EDT Office Visit [facility] [address] [phone] Nikolai Naranjo MD Non-small cell cancer of left lung (CMS/HCC) (Primary Dx); CKD (chronic kidney disease) stage 2, GFR 60-89 ml/min; Tobacco use disorder; Essential hypertension; Type 2 diabetes mellitus with stage 2 chronic kidney disease, without long-term current use of insulin (CMS/HCC) 04/06/2025 Telephone [facility] [address] [phone] Nikolai Naranjo MD 04/06/2025 Travel 04/04/2025 Travel 04/03/2025 Travel 04/02/2025 Travel 04/01/2025 Travel 03/31/2025 Travel 03/30/2025 Travel 03/29/2025 1:34 PM EDT Anesthesia Event [facility] OPERATING ROOM 800 [place] [address] Jimmy Kim MD Bliss, Emily G, MD 03/29/2025 12:10 PM EDT - 03/29/2025 4:50 PM EDT Surgery [facility] [address] [place] [address] Ирина Lopez MD LEFT VATS LOBECTOMY coverted to open, Left thoracotomy, with medistinal lymph node disection and lypoma [43346 (CPT )] 03/29/2025 9:43 AM EDT - 04/04/2025 12:18 PM EDT Hospital Encounter [facility] Inpatient [address] [place] [phone] Ирина Lopez MD Non-small cell cancer of left lung (CMS/HCC) Discharge Disposition: Home or Self Care 03/29/2025 Travel 03/18/2025 Travel 03/11/2025 Telephone [facility] 800 [facility], [address] [place] [phone] Ирина Lopez MD 03/04/2025 Results Follow-Up [facility] Res[facility] 800 [facility], [address] [place] [phone] Nikolai Naranjo MD 03/03/2025 Telephone [facility] 800 [facility], [address] [place] [address] Kirstie Trejo RN 03/02/2025 Telephone [facility] Res[facility] 800 [facility], [address] [place] [address] Nikolai Naranjo MD 03/02/2025 Telephone [facility] Res[facility] 800 [facility], [address] [place] [phone] Nikolai Naranjo MD 02/24/2025 12:44 PM EDT - 02/24/2025 11:59 PM EDT Hospital Encounter [facility] S Radiology [address], [address] [place] [address] Non-small cell cancer of left lung (CMS/HCC) Discharge Disposition: Home or Self Care 02/24/2025 Travel 02/23/2025 10:30 AM EDT Office Visit [facility] Res[facility] 800 [facility], [address] [place] [phone] Ирина Lopez MD Non-small cell cancer of left lung (CMS/HCC) 02/23/2025 9:00 AM EDT Office Visit [facility] [address] [place] [address] Nikolai Naranjo MD Non-small cell cancer of left lung (CMS/HCC) (Primary Dx); CKD (chronic kidney disease) stage 2, GFR 60-89 ml/min; Tobacco use disorder 02/23/2025 Travel 02/22/2025 3:36 PM EDT - 02/22/2025 11:59 PM EDT Hospital Encounter [facility] Radiology 800 [place] [address] Discharge Disposition: Home or Self Care 02/22/2025 3:36 PM EDT - 02/22/2025 11:59 PM EDT Hospital Encounter [facility] Radiology 800 [place] [phone] Non-small cell cancer of left lung (CMS/HCC) Discharge Disposition: Home or Self Care 02/22/2025 2:29 PM EDT - 02/22/2025 3:35 PM EDT Hospital Encounter [facility] Pulmonary Function Testing 800 [place] [address] Non-small cell cancer of left lung (CMS/HCC) Discharge Disposition: Home or Self Care 02/22/2025 Travel 02/10/2025 Telephone [facility] [address] [phone] Nikolai Naranjo MD 02/05/2025 8:15 AM EDT Office Visit [facility] [address] [phone] Angel Parker MD Non-small cell cancer of left lung (CMS/HCC) (Primary Dx); CKD (chronic kidney disease) stage 2, GFR 60-89 ml/min 02/05/2025 Orders Only [facility] Radiology Virtual Dept. 800 [place] [address] Lilli Gage DO 02/05/2025 Travel 02/03/2025 Telephone [facility] [address] [phone] Angel Parker MD 01/28/2025 1:16 PM EDT Anesthesia Event [facility] OPERATING ROOM [address] [place] [address] Kizzy Cottrell MD Latham, Jeremy J, MD 01/28/2025 12:00 PM EDT - 01/28/2025 2:15 PM EDT Surgery [facility] OPERATING ROOM [address] [place] [address] Angel Parker MD ION Robotic Bronch, Radial US, Mcclave, BAL, Biopsy, Needle, EBUS TBNA, CIOS / 3D fluoroscopy [13594 (CPT )] 01/28/2025 10:30 AM EDT - 01/28/2025 4:54 PM EDT Hospital Encounter [facility] OPERATING ROOM [address] [place] [address] Angel Parker MD Lung nodule Discharge Disposition: Home or Self Care 01/28/2025 Travel from Last 3 Months Family History [...] you homeless or living in a senior care (including now)? No 03/31/2025 Utilities Answer Date [...] 5 oz) 04/20/2025 10:21 AM EDT Height 177.8 cm (5' 10 ) 03/30/2025 1:25 PM EDT Body Mass Index 20.28 03/30/2025 1:25 PM EDT Plan of Treatment Upcoming Encounters Date Type Department Care Team (Late st Contact Info) Description 07/06/2025 10:40 AM EDT Office Visit [facility] Res[facility] 800 [facility], [address]nd [place] [address] Nikolai Naranjo MD [address] [facility] [address] [place] [address] Health Maintenance Due Date Last Done Comments [facility]-Depression Screening 1945 [facility]-Diabetes: Hemoglobin A1C 1945 [facility]-Hepatitis C Screening 1945 [facility]-Medicare Annual Wellness (AWV) 1945 [facility]-/Child/Adol SDOH Screenings 1945 [id number] Vaccine (#1) 1951 Diabetes: Dental Exam 1955 [...] (CMS/HCC) POCT GLUCOSE METER UNSOLICITED RESULTS Routine 04/04/2025 [...] ANESTHESIA PLACEHOLDER Routine 03/29/2025 1:48 PM EDT MD AN ELECTIVE ENDOTRACHEAL AIRWAY Routine 03/29/2025 1:48 PM EDT MD THORACOSCOPY SURG LOBECTOMY 03/29/2025 1:24 PM EDT [...] Non-small cell cancer of left lung (CMS/HCC) CARIS CA TUMOR SEEK HYBRID + IHCS AND OTHER [...] ANESTHESIA PLACEHOLDER Routine 01/28/2025 1:27 PM EDT MD AN ELECTIVE ENDOTRACHEAL AIRWAY Routine 01/28/2025 1:27 PM EDT MD BRONCHOSCOPY,COMPUTER ASSIST/IMAGE-GUIDED NAVIGATION 01/28/2025 1:02 PM EDT Lung nodule POCT GLUCOSE METER UNSOLICITED RESULTS Routine 01/28/2025 11:[address] CHEST WO IV CONTRAST Routine 01/29/20 11:33 AM EDT from Last 3 Months Results * XR Chest 2 Views (04/20/2025 [...] - 99 mg/dL 04/04/2025 8:36 AM EDT [facility] Comment:Accuracy of a glucos e result [...] for testing. Comment 04/04/2025 8:36 AM EDT [facility] Division Manager ID Sandy Kramer 04/04/2025 8:36 AM EDT [facility] Device ID [id number] 04/04/2025 8:36 AM EDT [facility] Specimen Type POC Capillary 04/04/2025 8:36 AM EDT [facility] Blood Capillary blood specimen / Unknown 04/04/2025 8:34 AM EDT 04/04/2025 8:36 AM EDT us Ирина Lopez MD LAB POINT OF CARE TE ST DOCKED DEVICE UNSOLICITED RESULTS Final Result [facility] [address] [place] [id number] * XR Chest 1 View (04/04/2025 5:20 [...] MD on 04/04/2025 10:20 AM Scarlet Gamboa LOGISTICS ANALYST IMG XR PROCEDURES Final Resul t * (ABNORMAL) CBC W/O Differential (04/04/2025 2:19 AM EDT) Only the most recent of8 resultswithin the time period is included. WBC Count 5.44 3.70 - 10.30 10*3/uL LAB HEMATOLOGY METHOD 04/04/2025 2:33 AM EDT [facility] RBC Count 3.77(L) 4.60 - 6.10 10*6/uL LAB HEMATOLOGY METHOD 04/04/2025 2:33 AM EDT [facility] HGB 10.7(L) 13.7 - 17.5 g/dL LAB HEMATOLOGY METHOD 04/04/2025 2:33 AM EDT [facility] HCT 32.4(L) 40.0 - 51.0 % LAB HEMATOLOGY METHOD 04/04/2025 2:33 AM EDT [facility] Platelet Count 220 155 - 369 10*3/uL LAB HEMATOLOGY METHOD 04/04/2025 2:33 AM EDT [facility] MCV 86 79 - 98 fL LAB HEMATOLOGY METHOD 04/04/2025 2:33 AM EDT [facility] MCH 28.4 26.0 - 32.0 pg LAB HEMATOLOGY METHOD 04/04/2025 2:33 AM EDT [facility] MCHC 33.0 30.7 - 35.5 g/dL LAB HEMATOLOGY METHOD 04/04/2025 2:33 AM EDT [facility] RDW 14.7(H) 11.5 - 14.5 % LAB HEMATOLOGY METHOD 04/04/2025 2:33 AM EDT [facility] MPV 9.1 8.8 - 12.5 fL LAB HEMATOLOGY METHOD 04/04/2025 2:33 AM EDT [facility] nRBC 0.4(H) <=0.0 per 100 WBCs LAB HEMATOLOGY METHOD 04/04/2025 2:33 AM EDT [facility] Blood Venous blood specimen / Unknown Venipuncture / Unknown 04/04/2025 2:19 AM EDT 04/04/2025 2:24 AM EDT us Ирина Lopez MD LAB BLOOD ORDERABLES Final R esult [facility] [address] [place] [address] * (ABNORMAL) Magnesium, Plasma (04/04/2025 2:19 AM EDT) Only the most recent of8 resultswithin the time period is included. Magnesium, Plasma 1.8(L) 1.9 - 2.4 mg/dL 04/04/2025 2:53 AM EDT [facility] Blood Venous blood specimen / Unknown Venipuncture / Unknown 04/04/2025 2:19 AM EDT 04/04/2025 2:24 AM EDT us Ирина Lopez MD LAB BLOOD ORDERABLES Final R esult [facility] [address] [place] [address] * (ABNORMAL) Renal Function Panel, Plasma (04/04/2025 2:19 AM EDT) Only the most recent of8 resultswithin the time period is included. Glucose, Plasma 166(H) 74 - 99 mg/dL 04/04/2025 2:53 AM EDT [facility] BUN, Plasma 18 8 - 23 mg/dL 04/04/2025 2:53 AM EDT [facility] Creatinine, Plasma 1.31(H) 0.70 - 1.20 mg/dL 04/04/2025 2:53 AM EDT [facility] BUN/Creatinine Ratio 14 04/04/2025 2:53 AM EDT [facility] Sodium, Plasma 136 136 - 145 mmol/L 04/04/2025 2:53 AM EDT [facility] Potassium, Plasma 4.3 3.6 - 4.9 mmol/L 04/04/2025 2:53 AM EDT [facility] Chloride, Plasma 103 97 - 107 mmol/L 04/04/2025 2:53 AM EDT [facility] CO2, Plasma 22 22 - 29 mmol/L 04/04/2025 2:53 AM EDT [facility] Anion Gap 11 6 - 16 mmol/L 04/04/2025 2:53 AM EDT [facility] Total Calcium, Plasma 8.2(L) 8.9 - 10.2 mg/dL 04/04/2025 2:53 AM EDT [facility] Phosphorus, Plasma 3.1 2.5 - 4.5 mg/dL 04/04/2025 2:53 AM EDT [facility] Albumin, Plasma 3.0(L) 3.5 - 5.2 g/dL 04/04/2025 2:53 AM EDT [facility] eGFRcr 55.7 mL/min/1.7 3m*2 04/04/2025 2:53 AM EDT [facility] Comment:Reported eGFRcr in m L/min/1.73m2 is based the CKD-EPI 2020 equation that does not use a race coefficient. Blood Venous blood specimen / Unknown Venipuncture / Unknown 04/04/2025 2:19 AM EDT 04/04/2025 2:24 AM EDT us Ирина Lopez MD LAB BLOOD ORDERABLES Final R esult [facility] [address] [place] [address] * Transfuse RBC (04/02/2025 2:53 PM EDT) [...] the time period is included. Product Code T3677R67 CH BLOO D BANK Dispense Status Transfused BLOOD BANK Blood Expiration Date [id number] BLOOD BANK Unit Number [id number] CH B LOOD BANK Product Blood Type 6200 CH BLOOD BANK Blood Type A+ CH BLOOD BANK Crossmatch Compatible CH BLOOD BANK Product Code Y8555O05 CH BLOO D BANK Dispense Status Transfused CH BLOOD BANK Blood Expiration Date [id number] BLOOD BANK Unit Number [id number] CH B LOOD BANK Product Blood Type 6200 CH BLOOD BANK Blood Type A+ CH BLOOD BANK Crossmatch Compatible BLOOD BANK Other Scarlet Gamboa APRN BLOOD BANK PRODUCT ORDERABLES Final Result Performing Organization Address [facility] de Phone Number BLOOD BANK [address] [place] [address], * Type and Screen (04/02/2025 6:36 AM [...] ORDERABL ES Final Result Performing Organization Address City/[facility] Co de Phone Number BLOOD BANK [address] [place] [address], [place] * ECG Adult (03/30/2025 8:37 AM EDT) EKG DIAGNOSIS CLASS Abnormal MUSE ECG Ventricular Rate 81 BPM MUSE ECG Atrial Rate 81 BPM MUSE ECG MD Interval 170 ms MUSE ECG QRSD Interval 104 ms MUSE ECG QT Interval 416 ms MUSE ECG QTC Interval 483 ms MUSE ECG P Clifford 39 degrees MUSE ECG R Clifford -51 degrees MUSE ECG T Wave Clifford -15 degrees MUSE ECG Diagnosis Poor data [...] MUSE ECG Diagnosis Confirmed by Carey Michel ([id number]) on 03/30/2025 9:40:26 AM MUSE ECG 03/30/2025 8:37 AM EDT 03/30/2025 9:40 AM EDT Ирина Lopez MD ECG ORDERABLES Final Result Performing Organization Address City/[facility]/ZIP Co de Phone Number MUSE ECG * Creatinine, Plasma (03/29/2025 7:58 PM EDT) Creatinine, Plasma 1.08 0.70 - 1.20 mg/dL 03/29/2025 8:39 PM EDT [facility] eGFRcr 70.2 mL/min/1.7 3m*2 03/29/2025 8:39 PM EDT [facility] Comment:Reported eGFRcr in m L/min/1.73m2 is based the CKD-EPI 2020 equation that does not use a race coefficient. Blood Arterial blood specimen / Unknown Arterial Puncture / Unknown 03/29/2025 7:58 PM EDT 03/29/2025 8:05 PM EDT Ирина Lopez MD LAB BLOOD ORDERABLES Final R esult [facility] [address] [place] [address] * Protime-INR (03/29/2025 7:58 PM EDT) Only the most recent of2 resultswithin the time period is included. Prothrombin Time 13.8 12.0 - 14.3 sec LAB COAGULATION METHOD 03/29/2025 8:38 PM EDT [facility] INR 1.0 0.9 - 1.1 LAB COAGULATION METHOD 03/29/2025 8:38 PM EDT [facility] Blood Arterial blood specimen / Unknown Arterial Puncture / Unknown 03/29/2025 7:58 PM EDT 03/29/2025 8:05 PM EDT Narrative [facility] - 03/29/2025 8:38 PM EDT OPTIMAL INR RANGES FOR PATIENT ON ORAL ANTICOAGULANT THERAPY Prevention of venous thromboembolism INR 2.0 to 3.0 In patients with heart disease: Atrial fibrillation INR 2.0 to 3.0 Valvular heart disease INR 2.0 to 3.0 Tissue heart valves INR 2.0 to 3.0 Mechanical prosthetic valves INR 2.5 to 3.5 Prevention of recurrent CA INR 2.5 to 3.5 [facility] LAB BLOOD ORDERABLES Final R esult Performing Organization Address City/[facility] Co de Phone Number [facility] [address] [place] [address] * Fibrinogen (03/29/2025 7:58 PM EDT) Only the most recent of2 resultswithin the time period is included. Fibrinogen, Quantitative (Clottable) 294 208 - 459 mg/dL LAB COAGULATION METHOD 03/29/2025 8:38 PM EDT [facility] Blood Arterial blood specimen / Unknown Arterial Puncture / Unknown 03/29/2025 7:58 PM EDT 03/29/2025 8:05 PM EDT [facility] BLOOD ORDERABLES Final R esult [facility] [address] [place] [address] * (ABNORMAL) CBC and differential (03/29/2025 7:58 PM EDT) WBC Count 8.18 3.70 - 10.30 10*3/uL LAB HEMATOLOGY METHOD 03/29/2025 8:29 PM EDT [facility] RBC Count 3.11(L) 4.60 - 6.10 10*6/uL LAB HEMATOLOGY METHOD 03/29/2025 8:29 PM EDT [facility] HGB 9.2(L) 13.7 - 17.5 g/dL LAB HEMATOLOGY METHOD 03/29/2025 8:29 PM EDT [facility] HCT 27.7(L) 40.0 - 51.0 % LAB HEMATOLOGY METHOD 03/29/2025 8:29 PM EDT [facility] Platelet Count 174 155 - 369 10*3/uL LAB HEMATOLOGY METHOD 03/29/2025 8:29 PM EDT [facility] MCV 89 79 - 98 fL LAB HEMATOLOGY METHOD 03/29/2025 8:29 PM EDT [facility] MCH 29.6 26.0 - 32.0 pg LAB HEMATOLOGY METHOD 03/29/2025 8:29 PM EDT [facility] MCHC 33.2 30.7 - 35.5 g/dL LAB HEMATOLOGY METHOD 03/29/2025 8:29 PM EDT [facility] RDW 12.6 11.5 - 14.5 % LAB HEMATOLOGY METHOD 03/29/2025 8:29 PM EDT [facility] MPV 9.3 8.8 - 12.5 fL LAB HEMATOLOGY METHOD 03/29/2025 8:29 PM EDT [facility] nRBC 0.0 <=0.0 per 100 WBCs LAB HEMATOLOGY METHOD 03/29/2025 8:29 PM EDT [facility] Differential Type Automated LAB HEMATOLOGY METHOD 03/29/2025 8:29 PM EDT [facility] Neutrophils % 86 % LAB HEMATOLOGY METHOD 03/29/2025 8:29 PM EDT [facility] Lymphocytes % 9 % LAB HEMATOLOGY METHOD 03/29/2025 8:29 PM EDT [facility] Monocytes % 5 % LAB HEMATOLOGY METHOD 03/29/2025 8:29 PM EDT [facility] Eosinophils % 0 % LAB HEMATOLOGY METHOD 03/29/2025 8:29 PM EDT [facility] Basophils % 0 % LAB HEMATOLOGY METHOD 03/29/2025 8:29 PM EDT [facility] Immature Granulocytes % 0 % LAB HEMATOLOGY METHOD 03/29/2025 8:29 PM EDT [facility] Neutrophils Absolute 7.00(H) 1.60 - 6.10 10*3/uL LAB HEMATOLOGY METHOD 03/29/2025 8:29 PM EDT [facility] Lymphocytes Absolute 0.71(L) 1.20 - 3.90 10*3/uL LAB HEMATOLOGY METHOD 03/29/2025 8:29 PM EDT [facility] Monocytes Absolute 0.40 0.30 - 0.90 10*3/uL LAB HEMATOLOGY METHOD 03/29/2025 8:29 PM EDT [facility] Eosinophils Absolute 0.02 0.00 - 0.50 10*3/uL LAB HEMATOLOGY METHOD 03/29/2025 8:29 PM EDT [facility] Basophils Absolute 0.02 0.00 - 0.10 10*3/uL LAB HEMATOLOGY METHOD 03/29/2025 8:29 PM EDT [facility] Immature Granulocytes Absolute 0.03 0.00 - 0.06 10*3/uL LAB HEMATOLOGY METHOD 03/29/2025 8:29 PM EDT [facility] Blood Arterial blood specimen / Unknown Arterial Puncture / Unknown 03/29/2025 7:58 PM EDT 03/29/2025 8:04 PM EDT Narrative [facility] - 03/29/2025 8:29 PM EDT Therapeutic decision making should be based on absolute values, rather than percentages. us Kiana Gusman [facility] BLOOD ORDERABLES Final R esult [facility] [address] [place] [address] * Surgical Pathology Exam (03/29/2025 5:10 PM EDT) Case Report Surgical Pathology Case: [id number] Authorizing Provider: Ирина Lopez MD Collected: 03/29/2025 1716 Ordering Location: [facility] A OPERATING ROOM Received: 03/30/2025 2392 Pathologist: Cindy Miller MD Intraop: Elizabeth Gibbs [...] (specify site), lipoma 5 2:45 PM EDT [facility] Final Diagnosis A. LUNG, BRONCHIAL MARGIN, EXCISION, [...] EXCISION: - LIPOMA. 5 2:45 PM EDT [facility] at 1445 EDT Synoptic Checklist LUNG [...] pN Category: pN0 5 2:45 PM EDT [facility] Clinical Information Non-small cell cancer of left lung 5 2:45 PM EDT [facility] Intraoperative Consultation A. BRONCHIAL MARGIN FSA: No tumor seen. Todd Gibbs MD. 03/29/2025 @ 1745. 5 2:45 PM EDT [facility] Special and Immunohistochemical Stains Special Stain: F7-2 Elastic Trichrome: Demonstrates visceral pleural invasion F8-2 Elastic Trichrome: Demonstrates visceral pleural invasion All controls show appropriate reactivity. All immunohistochemis try, in situ hybridization, and histochemical tests were developed by and are performed at the [facility], [address] [place] [address]. All tests reported here, except those addressing [...] on decalcified specimens. 5 2:45 PM EDT [facility] Gross Description A. BRONCHIAL MARGIN [...] 0.3-0.6 cm in greatest dimension are identified. Compensator Worker sections are submitted as follows: F1: Bronchial margin F2: Vascular margins F3: Nearest stapled margin, en face F4: Grossly unremarkable parenchyma F5-F10: Mass, entirely submitted F11: Two intact lymph nodes Cold Time: 13h 43m SWATI Wong ([facility]) G. LIPOMA The specimen is received fresh and placed in formalin, labeled l ipoma , and consists of a 5.8 x 5.6 x 2.1 cm unoriented portion of leggett-yellow lobulated fibroadipose tissue. The external surface is inked blue. Sectioning reveals a leggett-yellow lobulated cut surface. No areas of hemorrhage or necrosis are identified. Compensator Worker sections are submitted in cassettes G1-G3. Cold Time: 13h 05m SWATI Wong ([facility]) 2:45 PM EDT [facility] Note: A resident was involved in the service. I attest I examined the relevant preparations for the specimens and confirmed the diagnosis or interpretation. 2:45 PM EDT [facility] Tissue Structure of lymph node [...] MD LAB PATHOLOGY ORDERABLES Fin al Result [facility] [address] [place] [address] * (ABNORMAL) Blood gas panel, arterial (03/29/2025 4:05 PM EDT) Only the most recent of2 resultswithin the time period is included. pH, Arterial 7.38 7.31 - 7.42 LAB HEMATOLOGY METHOD 03/29/2025 4:13 PM EDT [facility] pCO2, Arterial 45 32 - 45 mmHg LAB HEMATOLOGY METHOD 03/29/2025 4:13 PM EDT [facility] pO2, Arterial 216 >70 mmHg LAB HEMATOLOGY METHOD 03/29/2025 4:13 PM EDT [facility] SO2, Measured, Arterial 100(H) 94 - 98 % LAB HEMATOLOGY METHOD 03/29/2025 4:13 PM EDT [facility] Base Excess, Arterial 1.2 -2.0 - 3.0 mmol/L LAB HEMATOLOGY METHOD 03/29/2025 4:13 PM EDT [facility] Bicarbonate, Calculated, Arterial 27(H) 22 - 26 mmol/L LAB HEMATOLOGY METHOD 03/29/2025 4:13 PM EDT [facility] Hematocrit, Whole Blood 31.6(L) 40.0 - 51.0 % LAB HEMATOLOGY METHOD 03/29/2025 4:13 PM EDT [facility] Sodium, Whole Blood 138 136 - 145 mmol/L LAB HEMATOLOGY METHOD 03/29/2025 4:13 PM EDT [facility] Potassium, Whole Blood 3.8 3.6 - 4.9 mmol/L LAB HEMATOLOGY METHOD 03/29/2025 4:13 PM EDT [facility] Chloride, Whole Blood 103 97 - 107 mmol/L LAB HEMATOLOGY METHOD 03/29/2025 4:13 PM EDT [facility] Glucose, Whole Blood 123(H) 74 - 99 mg/dL LAB HEMATOLOGY METHOD 03/29/2025 4:13 PM EDT [facility] Ionized Calcium, Whole Blood 4.4(L) 4.6 - 5.1 mg/dL LAB HEMATOLOGY METHOD 03/29/2025 4:13 PM EDT [facility] Lactate, Arterial, Whole Blood 0.8 0.5 - 1.6 mmol/L LAB HEMATOLOGY METHOD 03/29/2025 4:13 PM EDT [facility] Blood Arterial blood specimen / Unknown 03/29/2025 4:05 PM EDT 03/29/2025 4:11 PM EDT Comment:Pre-op diagnosis: Non-small cell cancer of left lung us Ирина Lopez MD LAB BLOOD ORDERABLES Final R esult [facility] [address] [place] [address] * APTT (03/29/2025 4:04 PM EDT) aPTT 28 25 - 35 sec LAB COAGULATION METHOD 03/29/2025 4:39 PM EDT [facility] Blood Arterial blood specimen / Unknown 03/29/2025 4:04 PM EDT 03/29/2025 4:18 PM EDT Comment:Pre-op diagnosis: Non-small cell cancer of left lung Ирина Lopez MD LAB BLOOD ORDERABLES Final R esult [facility] [address] [place] [address] * Peripheral IV (03/29/2025 2:00 PM EDT) [...] procedure well with no complications. Staffing Performed: CLINICAL CODER Robert Santos MD ANESTHESIA ORDERABLES Edited Re sult - Final * MD AN ELECTIVE ENDOTRACHEAL AIRWAY, PB ANESTHESIA PLACEHOLDER (03/29/2025 1:48 PM EDT) Robert Bloom MD - 03/29/2025 1:48 PM EDT Robert Santos MD 03/29/2025 3:02 PM Airway Date/Time: 03/29/2025 1:48 PM Reason: elective Airway not difficult General Information and Staff Patient location during procedure: OR CLINICAL CODER: Kiana Gusman CRNA Performed: CLINICAL CODER Patient Condition Indications for airway management: anesthesia [...] LAB HEMATOLOGY METHOD 03/29/2025 12:51 PM EDT [facility] pCO2, Venous 49 40 - 55 mmHg LAB HEMATOLOGY METHOD 03/29/2025 12:51 PM EDT [facility] pO2, Venous 54(H) 25 - 40 mmHg LAB HEMATOLOGY METHOD 03/29/2025 12:51 PM EDT [facility] SO2, Measured, Venous 87(H) 65 - 80 % LAB HEMATOLOGY METHOD 03/29/2025 12:51 PM EDT [facility] Base Excess, Venous 1.7 -2.0 - 3.0 mmol/L LAB HEMATOLOGY METHOD 03/29/2025 12:51 PM EDT [facility] Bicarbonate, Calculated, Venous 28(H) 22 - 26 mmol/L LAB HEMATOLOGY METHOD 03/29/2025 12:51 PM EDT [facility] Hematocrit, Whole Blood 39.2(L) 40.0 - 51.0 % LAB HEMATOLOGY METHOD 03/29/2025 12:51 PM EDT [facility] Sodium, Whole Blood 140 136 - 145 mmol/L LAB HEMATOLOGY METHOD 03/29/2025 12:51 PM EDT [facility] Potassium, Whole Blood 4.0 3.6 - 4.9 mmol/L LAB HEMATOLOGY METHOD 03/29/2025 12:51 PM EDT [facility] Chloride, Whole Blood 103 97 - 107 mmol/L LAB HEMATOLOGY METHOD 03/29/2025 12:51 PM EDT [facility] Glucose, Whole Blood 97 74 - 99 mg/dL LAB HEMATOLOGY METHOD 03/29/2025 12:51 PM EDT [facility] Lactate, Venous, Whole Blood 1.6 0.5 - 2.2 mmol/L LAB HEMATOLOGY METHOD 03/29/2025 12:51 PM EDT [facility] Ionized Calcium, Whole Blood 4.5(L) 4.6 - 5.1 mg/dL LAB HEMATOLOGY METHOD 03/29/2025 12:51 PM EDT [facility] Blood Venous blood specimen / Unknown Venipuncture / Unknown 03/29/2025 12:27 PM EDT 03/29/2025 12:49 PM EDT us Robert Santos MD LAB BLOOD ORDERABLES Final Resu lt [facility] [address] [place] [address] * MR Head w and wo IV [...] applicable. Positioning: Arms raised. PET/CT scanner: Siemens JellyCloudgraph 40 mCT. PET/CT acquisition: Kvcefg-we-xva-thighs. Standardized uptake value (SUV): Corrected for body weight only. CT: Low-dose, sbn-kwznkl-rwjm, without intravenous contrast. TOTAL DLP (Dose Length [...] 1.8 (image 161 series 4 and 3). Ixx-HFP-ixmw subpleural 4 mm tiny perifissural nodule is [...] scanner: Siemens Biograph 40 mCT. PET/CT acquisition: Gszhju-dt-aeu-thighs. Standardized uptake value (SUV): Corrected for body weight only. CT: Low-dose, hsi-gzolyp-igpg, without intravenous contrast. TOTAL DLP (Dose Length [...] SUV 1.8 (image 161series 4 and 3). Dev-MZK-itqi subpleural 4 mm tiny perifissural nodule is [...] on 02/23/2025 11:30 AM Angel Parker MD IM NM PROCEDURES Final Result * (ABNORMAL) Pulmonary function testing (02/22/2025 3:10 PM EDT) PJL9AXH 3.10 2.66 - 4.70 L VYAIRE PFT FVC PRED 3.68 VYAIRE PFT FVC LLN 2.66 VYAIRE PFT FVCPREZSCORE -0.93 VYAIRE PFT FVCPRE%PRED 84 % % VYAIRE PFT FVC PREDAUTH [facility]_Quanjer GLI (2011) VYAIRE PFT FVC Z-SCORE -0.93 VYAIRE PFT FEV1 PRE 2.19 1.91 - 3.51 L VYAIRE PFT FEV1 PRED 2.74 VYAIRE PFT FEV1 LLN 1.91 VYAIRE PFT HPO4BOYIDBSIW -1.12 VYAIRE PFT FEV1_Pre%Pred 80 % % VYAIRE PFT FEV1 PREDAUTH US_[facility]anjer GLI (2011) VYAIRE PFT FEV1 Z-SCORE -1.12 VYAIRE PFT FEV1/FVC PRE 70.45 60.56 - 88.37 % VYAIRE PFT EQG3FUYTPFC 75 VYAIRE PFT WDP6GVLCOW 61 VYAIRE PFT OCI0VYTZMPKETNCU -0.55 VYAIRE PFT HBS2HPXJJQ%PRED 94 % % VYAIRE PFT UZP1XLXYFUSS [facility] (2011) VYAIRE PFT TJR5KJZSVGNJZ -1 VYAIRE PFT IET52-19% PRE 1.22 0.77 - 3.77 L/s VYAIRE PFT OFI49-97%_Pred 1.98 VYAIRE PFT SDH7008%LLN 0.77 VYAIRE PFT BMG5254%PREZSCORE -0.95 VYAIRE PFT PVM8187%PRE%PRED 61 % % VYAIRE PFT GFL9297%PREDAUTPsychiatric Hospital at Vanderbilt (2011) VYAIRE PFT PEF PRE 5.01 4.85 - 9.22 L/s VYAIRE PFT PEF PRED 7.04 VYAIRE PFT PEF LLN 4.85 VYAIRE PFT PEFPREZSCORE -1.52 VYAIRE PFT PEFPRE%PRED 71 % % VYAIRE PFT PEF PREDAUT NHANES III (1998) VYAIRE PFT BNAKHWSCEWUTCTNY1UIC 15.18(A) 16.80 - 30.86 ml/(min* mmHg) VYAIRE PFT DLCOSINGLEBREATH PRED 23.19 VYAIRE PFT DLCOSINGLEBREATH LLN 16.80 VYAIRE PFT DLCOSINGLEBREATH Z-SCORE -2.12 VYAIRE PFT DLCOSINGLEBREATH % PRED 65.4 % VYAIRE PFT DLCOSINGLEBREATH PREDMo[facility] (2019) VYAIRE PFT DLCOSINGLEBREATH Z-SCORE -2.12 02/22/2025 3:48 PM EDT VYAIRE PFT MJCMHUXXVRXUIYURP8JN E 15.18(A) 16.80 - 30.86 ml/(min* mmHg) VYAIRE PFT DLCOCSINGLEBREATH PRED 23.19 VYAIRE PFT DLCOCSINGLEBREATH LLN 16.80 VYAIRE PFT DLCOCSINGLEBREATH Z-SCORE -2.12 VYAIRE PFT DLCOCSINGLEBREATH % PRED 65.4 % VYAIRE PFT DLCOCSINGLEBREATH PREDAUT Stanojevic TLCO GLI (2019) VYAIRE PFT JYLKNU9VXV 3.06 2.88 - 5.12 ml/(min* mmHg*L) VYAIRE PFT DLCOVAPRED 3.95 VYAIRE PFT DLCOVALLN 2.88 VYAIRE PFT DLCOVAZSCORE -1.37 VYAIRE PFT DLCOVA%PRED 77.4 % VYAIRE PFT DLCOVAPREDAUT Stanojevic TLCO GLI (2019) VYAIRE PFT DLCOVAZSCORE -1.37 02/22/2025 3:48 PM EDT VYAIRE PFT UUYWUWPUD8SNL 3.06 2.88 - 5.12 ml/(min* mmHg*L) VYAIRE PFT DLCOC SB/VA PRED 3.95 VYAIRE PFT DLCOC SB/VA LLN 2.88 VYAIRE PFT DLCOC SB/VA Z-SCORE -1.37 VYAIRE PFT DLCOC SB/VA % PRED 77.4 % VYAIRE PFT DLCOC SB/VA [facility]ED[facility] Stanojevic TLCO GLI (2019) VYAIRE PFT DLCOC SB/VA Z-SCORE -1.37 02/22 3:48 PM EDT VYAIRE PFT QPSCCBFEHBUHTL0RUY 4.97 4.73 - 7.15 L VYAIRE PFT VASINGLEBREATH PRED 5.90 VYAIRE PFT VASINGLEBREATH LLN 4.73 VYAIRE PFT VASINGLEBREATH Z-SCORE -1.31 VYAIRE PFT VASINGLEBREATH % PRED 84.2 % VYAIRE PFT VASINGLEBREATH PREDAUT Stanojevic TLCO GLI (2019) VYAIRE PFT VASINGLEBREATH Z-SCORE -1.31 02/22/2025 3:48 PM EDT VYAIRE PFT NPADDEWQOXFNPKB8IDZ 3.12 2.66 - 4.70 L VYAIRE PFT IVCSINGLEBREATH PRED 3.68 VYAIRE PFT IVCSINGLEBREATH LLN 2.66 VYAIRE PFT IVCSINGLEBREATH Z-SCORE -0.89 VYAIRE PFT IVCSINGLEBREATH % PRED 85.0 % VYAIRE PFT IVCSINGLEBREATH PRED[facility] GLI (2011) VYAIRE PFT CLEMENTINE% VCMAX PRE 100.00 % VYAIRE PFT TLC SB PRE 5.11(A) 5.16 - 8.10 L VYAIRE PFT TLCSINGLEBREATH PRED 6.62 VYAIRE PFT TLCSINGLEBREATH LLN 5.16 VYAIRE PFT TLCSINGLEBREATH Z-SCORE -1.70 VYAIRE PFT TLCSINGLEBREATH % PRED 77.3 % VYAIRE PFT TLCSINGLEBREATH PREDAUTDetwiler Memorial Hospital Lung volumes GLI (2019)__ VYAIRE PFT HB PRE 14.60 g(Hb)/dL VYAIRE PFT JQX7LKU 6.30 5.16 - 8.10 L VYAIRE PFT TLCPRED 6.62 VYAIRE PFT TLCLLN 5.16 VYAIRE PFT TLCULN 8.10 VYAIRE PFT TLCZSCORE -0.36 VYAIRE PFT TLC%PRED 95.1 % VYAIRE PFT TLCPREDAUTDetwiler Memorial Hospital Lung volumes GLI (2019)__ VYAIRE PFT VC0PRE 3.29 2.66 - 4.70 L VYAIRE PFT VCPRED 3.68 VYAIRE PFT VCLLN 2.66 VYAIRE PFT VCULN 4.70 VYAIRE PFT VCZSCORE -0.63 VYAIRE PFT VC%PRED 89.4 % VYAIRE PFT VCPREDAUTMESILLA VALLEY [facility]anjer GLI (2011) VYAIRE PFT IC0PRE 1.78(A) 1.89 - 3.54 L VYAIRE PFT ICPRED 2.73 VYAIRE PFT ICLLN 1.89 VYAIRE PFT ICULN 3.54 VYAIRE PFT IC Z-SCORE -1.86 VYAIRE PFT IC%PRED 65.0 % VYAIRE PFT ICPREDAUTDetwiler Memorial Hospital Lung volumes GLI (2019)__ VYAIRE PFT CABRQGQP1GES 4.52 2.59 - 5.10 L VYAIRE PFT FRCPLETH PRED 3.70 VYAIRE PFT FRCPLETH LLN 2.59 VYAIRE PFT FRCPLETH ULN 5.10 VYAIRE PFT FRCPLETH Z-SCORE 1.01 VYAIRE PFT FRCPLETH % PRED 122.0 % VYAIRE PFT FRCPLETH PREDAUTDetwiler Memorial Hospital Lung volumes GLI (2019)__ VYAIRE PFT IOI3IKC 1.51 0.31 - 2.34 L VYAIRE PFT ERVPRED 1.12 VYAIRE PFT ERVLLN 0.31 VYAIRE PFT ERVULN 2.34 VYAIRE PFT ERV Z-SCORE 0.59 VYAIRE PFT ERV%PRED 135.3 % VYAIRE PFT ERVPThomasville [facility] Medical [facility] Lung volumes GLI (2019)__ VYAIRE PFT RV0PRE 3.01 1.43 - 3.98 L VYAIRE PFT RVPRED 2.58 VYAIRE PFT RVLLN 1.43 VYAIRE PFT RVULN 3.98 VYAIRE PFT RVZSCORE 0.54 VYAIRE PFT RV%PRED 116.9 % VYAIRE PFT RVPREDAUTDetwiler Memorial Hospital Lung volumes GLI (2019)__ VYAIRE PFT RV%OYF6KIY 47.82 26.68 - 53.53 % VYAIRE PFT RV%TLCPRED 40 VYAIRE PFT RV%TLCLLN 27 VYAIRE PFT RV%TLCULN 54 VYAIRE PFT RV%TLCZSCORE 0.97 VYAIRE PFT RV%TLC%PRED 120.2 % VYAIRE PFT RV%TLCPREDAUTDetwiler Memorial Hospital Lung volumes GLI (2019)__ VYAIRE PFT Anatomical Region Laterality Modality PFT 02/22/2025 2:39 PM EDT Narrative 02/23/2025 12:58 PM EDT Pulmonary Function Testing Report Cole Feliz Jr. 79 y.o. underwent pulmonary function testing today at the [facility]. The patient underwent spirometry, lung volumes by [...] PFT ORDERABLES Final Result * (ABNORMAL) Caris CA Cancer Seek Hybrid??? + IHCs and Other Tests by Tumor Type (01/28/2025 3:38 PM EDT) CARIS PD-L1 (22C3) Positive 2024 12:05 PM EDT [employer] CARIS PD-L1 FDA(SP142) Negative 03/09/2025 12:05 PM EDT [employer]ren[employer] CARIS Genomic Loss of Heterozygosity - [place] Low 6% 03/09/2025 12:05 PM EDT [employer] CARIS Microsatellite Instability - [place] Stable 03/09/2025 12:05 PM EDT [employer] CARIS Tumor Mutational [place] - [place] Low 3 per Mb 03/09/2025 12:05 PM EDT [employer] CARIS PD-L1 FDA (28-8) Positive 03/09/2025 12:05 PM EDT CARIS LOG607 SCIENCES CARIS PD-L1 (SP263) Negative 03/09/2025 12:05 PM EDT CARIS LOG607 SCIENCES CARIS Her2/Masha Negative 03/09/2025 12:05 PM EDT [employer] CARIS ALK Negative 03/09/2025 12:05 PM EDT [employer] CARIS HLA-A - [place] A*01:01,A*24 :02 03/09/2025 12:05 PM EDT CARIS LOG607 SCIENCES CARIS HLA-B - [place] -,B*07:02 03/09/2025 12:05 PM EDT [employer] HLA-C - [place] -,C*07:02 03/09/2025 12:05 PM EDT [employer] Tissue Non-blood Collection / Unknown 01/28/2025 3:38 PM EDT 02/23/2025 3:38 PM EDT Narrative This result has genomic variants that were not included in this document. Nikolai Shankar MD LAB MOL DX NO SOURCE Fi nal Result [employer] [address] [address], * [place] Less than 1 Hour Intraoperative (01/28/2025 3:14 PM EDT) Narrative IMAGING - 01/28/2025 3:15 PM EDT Images were obtained for surgical purposes. See Angel Parker's surgical note in the patient's chart for the findings. Angel Parker MD IMG FLUOROSCOPY PROCEDURES Final Result Performing Organization Address City/[facility] Co de Phone Number IMAGING * Non-Gynecologic Cytology (01/28/2025 2:38 PM EDT) Case Report Cytology Case: [id number] Authorizing Provider: Angel Parker MD Collected: 01/28/2025 1438 Ordering Location: [facility] A OPERATING ROOM Received: 01/28/2025 1512 Pathologist: June Ventura MD Specimens: A) - Bronchial Brushing, Left Upper Lobe, BRONCHIAL BRUSHING, LEFT UPPER LOBE B) - Bronchoalveolar Lavage, Left Upper Lobe, BRONCHOALVEOLAR LAVAGE, LEFT UPPER LOBE 01/29/2025 3:53 PM EDT [facility] Final Diagnosis A. BRONCHIAL BRUSHING, LEFT UPPER LOBE - POSITIVE FOR MALIGNANCY, NON-SMALL CELL CARCINOMA B. BRONCHOALVEOLAR LAVAGE, LEFT UPPER LOBE - POSITIVE FOR MALIGNANCY, NON-SMALL CELL CARCINOMA - GMS STAIN IS NEGATIVE FOR ORGANISMS 01/29/2025 3:53 PM EDT [facility] at 1553 EDT Gross Description A. BRONCHIAL BRUSHING, LEFT UPPER LOBE Mcclave tips in 4 ml's tinted fluid processed as thin prep B. BRONCHOALVEOLAR LAVAGE, LEFT UPPER LOBE 20 ml's bloody fluid processed as thin prep and GMS 01/29/2025 3:53 PM EDT [facility] Clinical Information lung nodule 01/29/2025 3:53 PM EDT [facility] Brushing Bronchial brushings specimen / Unknown 01/28/2025 2:38 PM EDT 01/28/2025 3:12 PM EDT Comment:Pre-op diagnosis: lung nodule Bronchoalveolar lavage fluid specimen (specimen) Bronchoalveolar lavage fluid specimen / Unknown 01/28/2025 2:42 PM EDT 01/28/2025 3:12 PM EDT Comment:Pre-op diagnosis: lung nodule us Angel Parker MD LAB CYTOLOGY ORDERABLES Final Re sult [facility] [address] [place] [address] * Fine needle aspiration (01/28/2025 2:26 PM EDT) Case Report Cytology Case: [id number] Authorizing Provider: Angel Parker MD Collected: 01/28/2025 1407 Ordering Location: [facility] OPERATING ROOM Received: 01/28/2025 1501 Pathologist: June Ventura MD Specimens: A) - Lung, Left Upper Lobe, Fine Needle Aspiration, LUNG, LEFT UPPER LOBE ENDOBRONCHIAL ULTRASOUND GUIDED FINE NEEDLE ASPIRATION B) - Lung, Left Upper Lobe, Transbronchial Biopsy, LUNG, LEFT UPPER LOBE TRANSBRONCHIAL BIOPSY 9:49 AM EDT [facility] Addendum PD-L1 IHC 22C3 pharmDx* [...] test, with disease progression on or after [employer] [place]-containi ng chemotherapy. Patients with EGFR or ALK [...] *PD-L1 IHC 22C3 pharmDx is a FDA-approved outboard technician diagnostic for pembrolizumab performed on Dako Omnis [...] developed by and are performed at the [facility], [address] [place] [address]. All tests reported here, except those addressing HER2 and PD-L1 expression as predictive markers, have not been cleared by or approved by the US Food and Drug Administration (FDA). The laboratory is regulated under CLIA as qualified to perform high-complexity testing. The tests are used for clinical purposes. They should not be regarded as investigational or for research. 9:49 AM T [facility] Addendum electronically signed by Radha [...] LUNG PRIMARY, SEE COMMENT 9:49 AM EDT [facility] at 1557 EDT Comment History of [...] be issued as an addendum. 9:49 AM [facility] Special and Immunohistochemical Stains IHC: B1-1 TTF-1: Positive in tumor cells B1-2 P40: Negative in tumor cells B1-3 CK7: Positive in tumor cells B1-4 CK20: Negative in tumor cells All controls show appropriate reactivity. All immunohistochemis try, in situ hybridization, and histochemical tests were developed by and are performed at the [facility], [address] [place] [address]. All tests reported here, except those addressing [...] false negativity on decalcified specimens. 9:49 AM [facility] Intradepartmental Consultation with Agreement Dr. Miller 04/22/202 5 9:49 AM EDT [facility] Immediate Evaluation A: FNA performed by: Dr. Parkre Number of sticks: 4 Immediate evaluation performed by: Dr. Ventura Evaluation episode # 1-4: Blood, non-diagnostic B: Biopsy performed by: Dr. Parker Number of sticks: Not provided This service has been rendered in part by a resident. A pathologist has personally reviewed the slides/tissue and has rendered and is responsible for diagnosis for the diagnosis that appears on the report. 5 9:49 AM EDT [facility] Gross Description A. LUNG, LEFT [...] hours of formalin fixation. Cold Time: <1m 5 9:49 AM EDT [facility] Note: A resident was involved in the service. I attest I examined the relevant preparations for the specimens and confirmed the diagnosis or interpretation. 5 9:49 AM EDT [facility] Clinical Information lung nodule 5 9:49 AM EDT [facility] Tissue Structure of upper lobe of left lung / Unknown 01/28/2025 2:26 PM EDT 01/28/2025 3:01 PM EDT Comment:Pre-op diagnosis: lung nodule Specimen obtained by fine needle aspiration procedure (specimen) Specimen from lung obtained by fine needle aspiration procedure / Unknown 01/28/2025 2:07 PM EDT 01/28/2025 3:01 PM EDT us Angel Parker MD LAB CYTOLOGY ORDERABLES Edited R esult - Final [facility] [address] [place] [address] * Fine needle aspiration (01/28/2025 2:07 PM EDT) Case Report Cytology Case: [id number] Authorizing Provider: Angel Parker MD Collected: 01/28/2025 1407 Ordering Location: [facility] OPERATING ROOM Received: 01/28/2025 1501 Pathologist: June Ventura MD Specimens: A) - Lung, Left Upper Lobe, Fine Needle Aspiration, LUNG, LEFT UPPER LOBE ENDOBRONCHIAL ULTRASOUND GUIDED FINE NEEDLE ASPIRATION B) - Lung, Left Upper Lobe, Transbronchial Biopsy, LUNG, LEFT UPPER LOBE TRANSBRONCHIAL BIOPSY 9:49 AM EDT [facility] Addendum PD-L1 IHC 22C3 pharmDx* is [...] test, with disease progression on or after [employer] [place] [place]-containi ng chemotherapy. Patients with EGFR or ALK [...] *PD-L1 IHC 22C3 pharmDx is a FDA-approved outboard technician diagnostic for pembrolizumab performed on Dako Kynogonis Stainer using formalin-fixed, paraffin imbedded (FFPE) tissue [...] developed by and are performed at the [facility], [address] [place] [address]. All tests reported here, except those addressing HER2 and PD-L1 expression as predictive markers, have not been cleared by or approved by the US Food and Drug Administration (FDA). The laboratory is regulated under CLIA as qualified to perform high-complexity testing. The tests are used for clinical purposes. They should not be regarded as investigational or for research. 9:49 AM EDT [facility] Addendum electronically signed by Radha Titus MD on 02/02/2025 at 0949 EDT Final Diagnosis A. 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 5 9:49 AM [facility] Special and Immunohistochemical Stains IHC: B1-1 TTF-1: Positive in tumor cells B1-2 P40: Negative in tumor cells B1-3 CK7: Positive in tumor cells B1-4 CK20: Negative in tumor cells All controls show appropriate reactivity. All immunohistochemis try, in situ hybridization, and histochemical tests were developed by and are performed at the [facility], [address] [place] [address]. All tests reported here, except those addressing [...] negativity on decalcified specimens. 5 9:49 AM [facility] Intradepartmental Consultation with Agreement Dr. Miller 9:49 AM [facility] Immediate Evaluation A: FNA performed by: [...] appears on the report. 5 9:49 AM [facility] Gross Description A. LUNG, LEFT UPPER LOBE [...] fixation. Cold Time: <1m 9:49 AM EDT [facility] Note: A resident was involved in the service. I attest I examined the relevant preparations for the specimens and confirmed the diagnosis or interpretation. 9:49 AM EDT [facility] Clinical Information lung nodule 9:49 AM EDT [facility] Fine Needle Aspirate Specimen from lung obtained by fine needle aspiration procedure / Unknown 01/28/2025 2:07 PM EDT 01/28/2025 3:01 PM EDT Comment:Pre-op diagnosis: lung nodule Tissue specimen (specimen) Structure of upper lobe of left lung / Unknown 01/28/2025 2:26 PM EDT 01/28/2025 3:01 PM EDT Angel Parker MD LAB CYTOLOGY ORDERABLES Edited R esult - Final [facility] [address] [place] [address] * MD AN ELECTIVE ENDOTRACHEAL AIRWAY, PB ANESTHESIA PLACEHOLDER (01/28/2025 1:27 PM EDT) Narrative Kizzy Cottrell MD - 01/28/2025 1:27 PM EDT Kizzy Cottrell MD 01/28/2025 5:51 PM Airway Date/Time: 01/28/2025 1:27 PM Reason: elective Airway not difficult General Information and Staff Patient location during procedure: OR Anesthesiologist: Kizzy Cottrell MD CLINICAL CODER: Barbara De Los Santos CRNA, DNP Resident: [...] Comments Atraumatic. No change to dentition. us Kzizy Cottrell MD ANESTHESIA ORDERABLES Final Re sult [...] updated to appropriate status: No Care Teams Boilermaker Loftsman Relationship Specialty Start Date End Date Casa Phillips MD [address] [id number] PCP - General 02/22/25 Forrest Nickerson, BING [address] [place] [address] 03/06/23
--- OUTSIDE RECORDS SUMMARY | 2025-04-27 08:41 | XMS_ITS | Encounter Summary ---
Author Organization [facility] Address [address] [place] [address] Care Team Providers Care Rubber Down Name Role Phone belindaFrorest REGULATORY SCIENTIST Unavailable [phone] Casa Phillips MD Primary Care Provider [phone] Encounter Details Date Type Department Care Team (Late st Contact Info) Description 04/07/2025 Telephone [facility] [address] [place] [address] Aishwarya Dye, RN [facility] Social History [...] any time in the past 12 m [facility], were you homeless or living in [...] Referral sent to Dr Dagoberto Rosales with [facility]. documented in this encounter Plan of Treatment Upcoming Encounters Date Type Department Care Team (Lacey st Contact Info) Description 07/06/2025 10:40 AM EDT Office Visit [facility] [address] [place] [address] Nikolai Naranjo MD [address] [facility] [address] [facility] [address] [place] [id number] documented as of this encounter Visit Diagnoses Not on filedocumented in this encounter Additional Health Concerns Assessment Noted Time A fall risk assessment has been complete d for the patient 04/06/2025 10:27 AM EDT A Body Mass Index follow-up plan has been documented for the patient 04/06/2025 12:11 PM EDT documented as of this encounter Care Teams Rubber Down Relationship Specialty Start Date End Date Casa Phillips MD [address] [place] [id number] PCP - General 02/22/25 Forrest Nickerson APRN [address] [place] [id number] 03/06/23 documented as of this encounter
--- OUTSIDE RECORDS SUMMARY | 2025-04-27 08:41 | XMS_ITS ---
Author Organization [facility] Address [address] [place] [address] Care Team Providers Care Registered Nurse Float Pool Name Role Phone Zari Nickersonhéctor Theresa BAND PRESSER Unavailable [phone] Casa Phillips MD Primary Care Provider [phone] Active Problems Problem Noted Date Diagnosed Date [...]
--- OUTSIDE RECORDS SUMMARY | 2025-04-27 08:41 | XMS_ITS | Encounter Summary ---
Author Organization [facility] [place] [facility] Address [address] [place] [address] Care Team Providers Care Price Clerk Name Role Phone Forrest Nickerson HORTICULTURAL NURSERY ASSISTANT Unavailable [phone] Casa Phillips MD Primary Care Provider [phone] Encounter Details Date Type Department Care Team (Late st Contact Info) Description 04/07/2025 Telephone [facility] Hematology/BMT and Cellular Therapy Program [address] [place] [address] [place] [address] Tyler Montero Social History Tobacco Use Types [...] any time in the past 12 m [facility], were you homeless or living in [...] Pav CC Head, Neck & Respiratory [address] [facility], [address] [place] [address] Nikolai Naranjo MD [address] [facility] [facility] [address] [place] [address] documented as of this encounter Visit Diagnoses Not on filedocumented in this encounter Additional Health Concerns Assessment Noted Time A fall risk assessment has been complete d for the patient 04/06/2025 10:27 AM EDT A Body Mass Index follow-up plan has been documented for the patient 04/06/2025 12:11 PM EDT documented as of this encounter Care Teams Price Clerk Relationship Specialty Start Date End Date Casa Phillips MD [address] [place] [id number] PCP - General 02/22/25 Forrest Nickerson APRN [address] [place] [id number] 03/06/23 documented as of this encounter
--- OUTSIDE RECORDS SUMMARY | 2025-04-27 08:41 | XMS_ITS | Encounter Summary ---
Author Organization [facility] Address [address] [place] [address] Care Team Providers Care Social Media Specialist Name Role Phone Forrest Nickerson LEAD ORACLE DEVELOPER Unavailable [phone] Casa Phillips MD Primary Care Provider [phone] Encounter Details Date Type Department Care Team (Late st Contact Info) Description 04/07/2025 Telephone [facility] Hematology/BMT and Cellular Therapy Program [address] [place] [address] [place] [address] Tyler Montero Social History Tobacco Use Types [...] any time in the past 12 m [facility], were you homeless or living in a halfway (including now)? No 03/31/2025 Utilities Answer Date [...] & Respiratory [address] [place] [address] Nikolai Naranjo MD [address] [facility] [address] [place] [address] documented as of this encounter Visit Diagnoses Not on filedocumented in this encounter Additional Health Concerns Assessment Noted Time A fall risk assessment has been complete d for the patient 04/06/2025 10:27 AM EDT A Body Mass Index follow-up plan has been documented for the patient 04/06/2025 12:11 PM EDT documented as of this encounter Care Teams Social Media Specialist Relationship Specialty Start Date End Date Casa Phillips MD [address] [place] [id number] PCP - General 02/22/25 Forrest Nickerson APRN [address] [place] [address] 03/06/23 documented as of this encounter
--- OUTSIDE RECORDS SUMMARY | 2025-04-27 08:41 | XMS_ITS | Encounter Summary ---
Author Organization [facility] Address [address] [place] [address] Care Team Providers Care Flavor Tank Tender Name Role Phone Forrest Nickerson FUR DESIGNER Unavailable [phone] Casa Phillips MD Primary Care Provider [phone] Encounter Details Date Type Department Care Team (Late st Contact Info) Description 04/07/2025 Telephone [facility] Hematology/BMT and Cellular Therapy Program [address] [place] [address] [place] [address] Tyler Montero Social History Tobacco Use Types [...] any time in the past [address] [facility], were you homeless or living [...] Pav CC Head, Neck & Respiratory [address] [facility] [place] [address] Nikolai Naranjo MD [address] [facility] [address] [place] [address] documented as of this encounter Visit Diagnoses Not on filedocumented in this encounter Additional Health Concerns Assessment Noted Time A fall risk assessment has been complete d for the patient 04/06/2025 10:27 AM EDT A Body Mass Index follow-up plan has been documented for the patient 04/06/2025 12:11 PM EDT documented as of this encounter Care Teams Flavor Tank Tender Relationship Specialty Start Date End Date Casa Phillips MD [address] [place] [id number] PCP - General 02/22/25 Forrest Nickerson APRN [address] [place] [id number] 03/06/23 documented as of this encounter
--- OUTSIDE RECORDS SUMMARY | 2025-04-27 08:42 | XMS_ITS | Data Portability ---
Author Organization [facility] and [facility] [place] Address [address] [place] [address] Assessment No assessment recorded. Plan of Treatment Reminders Order Date Submit Date Provider Last Modified By Organization Details Last Modified Time Details Appointments OV EST 15 2024 02:45P Leigha Brown Jr, MD Not available Not available Not available Lab PSA, serum or plasma 2023 024 wceast [email or web address] [facility], [address], 04/07/2024 09:41:19 urinalysi s, dipstick 2022 023 [facility] [address], [address], 09/25/2023 16:41:34 culture, urine + sensitivi ty [address], [address], 10/02/2023 07:06:04 Referral None recorded. Procedures bladder scan (PROC) 2022 023 [facility] [address], [address], 09/25/2023 16:41:34 Surgeries None recorded. Imaging None recorded. Medication Orders cefdinir 300 mg capsule 2022 023 [email or web address] 591, [address], [place], [place], [address], 09/25/2023 14:59:22 Patient TargetsNo targets recorded. Patient InstructionsNo instructions recorded. Reason for Referral None Reported. Results Created Date Observation Date Name Description Value Unit Range Abnormal Flag Note LastModifiedBy Organization Detail LastModifiedTime 08/16/2008/16/2023 BASIC METAB OLIC PANEL sodium 139 mmol/ L 137-14 7 Not Available [facility] ([facility]Op [facility]) [address] [place] [address] [place], [address], 08/16/2023 13:11:40 08/16/20 23 08/16/2023 BASIC METAB OLIC PANEL potassium 4.7 mmol/ L 3.5-5. 1 Not Available [facility] (Pre-Op Clinic) [address] [place] [address] [place], [address], 08/16/2023 13:11:40 08/16/20 23 08/16/2023 BASIC METAB OLIC PANEL chloride 107 mmol/ L 98-110 Not Available [facility] (Pre-Op Clinic) [address] [place] [address] [place], [address], 08/16/2023 13:11:40 08/16/20 23 08/16/2023 BASIC METAB OLIC PANEL carbon dioxide 23 mmol/ L 21-30 Not Available [facility] (Pre-Op Clinic) [address] [place] [address] [place], [address], 08/16/2023 13:11:40 08/16/20 23 08/16/2023 BASIC METAB OLIC PANEL anion gap 9 mmol/ L 6-14 Not Available [facility] ([facility]Op Clinic) [address] [place] [address] [place], [address], 08/16/2023 13:11:40 08/16/20 23 08/16/2023 BASIC METAB OLIC PANEL glucose 118 mg/dL 70-115 high Not Available [facility] (Pre[facility]Op Clinic) [address] [place] [address] [place], [address], 08/16/2023 13:11:40 08/16/20 23 08/16/2023 BASIC METAB OLIC PANEL BUN 30 mg/dL 9-20 high Not Available [facility] (Pre[facility]Op Clinic) [address] [place] [address] [place], [address], 08/16/2023 13:11:40 08/16/20 23 08/16/2023 BASIC METAB OLIC PANEL creatinine 1.8 mg/dL 0.5-1. 5 high Not Available [facility] (Pre[facility]Op [facility]) [address] [place] [address] [place], [address], 08/16/2023 13:11:40 08/16/20 23 08/16/2023 BASIC METAB OLIC PANEL BUN/creatini ne ratio 17 ratio 10-20 Not Available [facility] ([facility]Op [facility]) [address] [place] [address] [place], [address], 08/16/2023 13:11:40 08/16/20 23 08/16/2023 BASIC METAB OLIC PANEL glom filtration rate TNP mL/mi n >60- GFR has only been valid ated for patie nts 18-70 years of age. Not Available [facility] (Pre[facility]Op [facility]) [address] [place] [address] [place], [address], 08/16/2023 13:11:40 08/16/20 23 08/16/2023 BASIC METAB OLIC PANEL osmolality (calculated) 296 mosmo l/kg 275-30 1 OSMOL ALITY IS A CALCU LATIO N UTILI ZING THE SERUM /PLAS MA SODIU M, GLUCO SE AND UREA NITRO GEN (BUN) LEVEL S. FOR THE MOST ACCUR ATE RESUL T A MEASU RED SERUM OSMOL ALITY IS SUGGE STED. Not Available [facility] (Pre-Op Clinic) [address] [place] [address] [place], [address], 08/16/2023 13:11:40 08/16/20 23 08/16/2023 BASIC METAB OLIC PANEL calcium 9.3 mg/dL 8.5-10 .8 Not Available [facility] (Pre[facility]Op [facility]) [address] [place] [address] [place], [address], 08/16/2023 13:11:40 08/16/20 23 08/16/2023 BASIC METAB OLIC PANEL note Unles s other ward noted testi ng perfo rmed at: [facility] [address] [place] [address] Mateo zamora MD Not Available [facility] (Pre[facility]Op [facility]) [address] [place] [address] [place], [address], 08/16/2023 13:11:40 08/16/20 23 08/16/2023 RFS-P ATHOL OGY SPECI MEN REQUE ST pathreq Patho logy [address] [place] [address] Phone or [phone] Fax Velasquez daigle Jr., M.D., Medic al Direc tor [facility] [address] : [place] [address] Phone Numbe r: [id number] [id number] 00 Mateo zamora M.D. PATHO LOGY REPOR T Patie nt Name: MIGUEL LEVIN RD Date of : [birth year] Age/S ex: 77/M Accou nt Numbe r: [id number] Medic al Recor d Numbe r: [id number] Order ing MD: HOLGER BROWN AM Date Colle cted : 2022 Date Recei paola : 2022 Date Repor maria e : 2022 Exam: Biops y Acces krista# : [id number] Labor atory #: [id number] Copie s To: Techn ician : Clini armida Histo ry Benig n prost atic hyper plasi a, urine reten tion Previ ous Patie nt Histo ry and Files [address]LIE [address] RD (08/15 6 M) i??SS N: i?? 1. S09-0 60020 , Date ollec maria e: 06/22 1: Diagn osis: SIGMO ID COLON POLYP : Tubul ar adeno ma witho ut high grade dyspl jr 2. S09-0 08852 , Date ollec maria e: 04/12 1: Diagn osis: CECAL AND ASCEN DING COLON POLYP S: Tubul ar adeno ma (x 1) Benig n mucos al fold (x 1) SIGMO ID COLON POLYP : Benig n mucos al fold with surfa ce hyper plast ic moss e DISTA L RECTA L POLYP : Tubul ovill ous adeno ma with adeno carci noma invad ing the howard a propr ia (see COMME NT) MUCOS A AROUN D RECTA L POLYP , BIOPS Y: No signi fican t patho logic alter ation s SMALL RECTA L POLYP : Hyper plast ic polyp 3. S06-0 [id number] , [facility] ollec maria e: 09/03 1: Diagn osis: LEFT SHOUL LORA, CLINI SARAHY LIPOM A, EXCIS ION: Matur e adipo se consi stent with lipom a BodyS ite PROST ATE, TUR Gross Descr iptio n Speci men recei paola in forma josué label ed pros amin chips and consi sts of Legal ly authe ntica maria e by MATEO AMADOR MD 08-21 08:22 :00 multi ple fragm ented porti ons of leggett-g ray soft tissu e measu ring 5.5 x 5.5 x 2.4 cm in aggre gate and havin g a total combi dereck weigh t of 31 g. Repre senta tive secti ons are submi tted in 7 casse ttes. 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 There is multi focal chron ic prost atiti s along with occas ional areas of infar ction . No intra epith elial or invas kristofer carci noma is ident ified . Profe ssion al inter preta tion rende red by Mateo zamora Jr., M.D. at [facility] [address] [facility] , [place] [address] . Final Diagn osis BENIG N PROST ATIC HYPER PLASI A WITH PROST ATITI S EJT/P AH Stain *Recu t-PCL ;[place] [id number] Legal ly authe ntica maria e by MATEO AMADOR MD 08-21 08:22 :00 Not Available [facility] ([facility]Op [facility]) [address] [place] [address] [place], [address], 08/21/2023 08:46:20 08/17/20 23 08/17/2023 CBC W/ AUTO DIFF WBC 8.77 K/uL 4.5-11 .5 Not Available [facility] (Pre-Op Clinic) [address] [place] [address] [place], [address], 08/17/2023 06:54:05 08/17/20 23 08/17/2023 CBC W/ AUTO DIFF RBC 3.21 M/uL 4.0-5. 4 low Not Available [facility] (Pre[facility]Op Clinic) [address] [place] [address] [place], [address], 08/17/2023 06:54:05 08/17/20 23 08/17/2023 CBC W/ AUTO DIFF HGB 9.7 g/dL 14.0-1 8.0 low Not Available [facility] ([facility]Op [facility]) [address] [place] [address] [place], [address], 08/17/2023 06:54:05 08/17/20 23 08/17/2023 CBC W/ AUTO DIFF HCT 28.7 % 40-54 low Not Available [facility] ([facility]Op [facility]) [address] [place] [address] [place], [address], 08/17/2023 06:54:05 08/17/20 23 08/17/2023 CBC W/ AUTO DIFF MCV 89.4 fL 80.0-1 00.0 Not Available [facility] ([facility]Op [facility]) [address] [place] [address] [place], [address], 08/17/2023 06:54:05 08/17/2008/17/2023 CBC W/ AUTO DIFF MCH 30.2 pg 26.0-3 2.0 Not Available [facility] ([facility]Op [facility]) [address] [place] [address] [place], [address], 08/17/2023 06:54:05 08/17/2008/17/2023 CBC W/ AUTO DIFF MCHC 33.8 g/dL 32.0-3 6.0 Not Available [facility] ([facility]Op [facility]) [address] [place] [address] [place], [address], 08/17/2023 06:54:05 08/17/2008/17/2023 CBC W/ AUTO DIFF RDW 12.9 % 11.5-1 4.5 Not Available [facility] ([facility]) [address] [place] [address] [place], [address], 08/17/2023 06:54:05 08/17/2008/17/2023 CBC W/ AUTO DIFF platelet count 177 K/uL 142-42 4 Not Available [facility] ([facility]Op [facility]) [address] [place] [address] [place], [address], 08/17/2023 06:54:05 08/17/2008/17/2023 CBC W/ AUTO DIFF MPV 9.9 fL 6.8-10 .2 Not Available [facility] ([facility]Op [facility]) [address] [place] [address] [place], [address], 08/17/2023 06:54:05 08/17/2008/17/2023 CBC W/ AUTO DIFF neutrophil % 92.4 % 50-70 high Not Available [facility] ([facility]Op [facility]) [address] [place] [address] [place], [address], 08/17/2023 06:54:05 08/17/2008/17/2023 CBC W/ AUTO DIFF lymphocyte % 3.5 % 18.0-4 2.0 low Not Available [facility] ([facility]Op [facility]) [address] [place] [address] [place], [address], 08/17/2023 06:54:05 08/17/20 23 08/17/2023 CBC W/ AUTO DIFF monocyte % 3.6 % 2.0-11 .0 Not Available [facility] ([facility]Op [facility]) [address] [place] [address] [place], [address], 08/17/2023 06:54:05 08/17/20 23 08/17/2023 CBC W/ AUTO DIFF eosinophil % 0.0 % 1.0-3. 0 low Not Available [facility] ([facility]Op [facility]) [address] [place] [address] [place], [address], 08/17/2023 06:54:05 08/17/20 23 08/17/2023 CBC W/ AUTO DIFF basophil % 0.0 % 0.0-2. 0 Not Available [facility] ([facility]Op [facility]) [address] [place] [address] [place], [address], 08/17/2023 06:54:05 08/17/20 23 08/17/2023 CBC W/ AUTO DIFF immature granulocytes % 0.5 % 0.0-0. 8 Not Available [facility] ([facility]Op [facility]) [address] [place] [address] [place], [address], 08/17/2023 06:54:05 08/17/2008/17/2023 CBC W/ AUTO DIFF nucleated red blood cells % 0.0 % Not Available [facility] ([facility]) [address] [place] [address] [place], [address], 08/17/2023 06:54:05 08/17/20 23 08/17/2023 CBC W/ AUTO DIFF neutrophil # 8.10 K/uL Not Available [facility] ([facility]Op [facility]) [address] [place] [address] [place], [address], 08/17/2023 06:54:05 08/17/20 23 08/17/2023 CBC W/ AUTO DIFF lymphocyte # 0.31 K/uL Not Available [facility] ([facility]) [address] [place] [address] [place], [address], 08/17/2023 06:54:05 08/17/20 23 08/17/2023 CBC W/ AUTO DIFF monocyte # 0.32 K/uL Not Available [facility] ([facility]Op [facility]) [address] [place] [address] [place], [address], 08/17/2023 06:54:05 08/17/20 23 08/17/2023 CBC W/ AUTO DIFF eosinophil # 0.00 K/uL Not Available [facility] (Pre[facility]Op [facility]) [address] [place] [address] [place], [address], 08/17/2023 06:54:05 08/17/20 23 08/17/2023 CBC W/ AUTO DIFF basophil # 0.00 K/uL Not Available [facility] ([facility]Op [facility]) [address] [place] [address] [place], [address], 08/17/2023 06:54:05 08/17/20 23 08/17/2023 CBC W/ AUTO DIFF immature gramulocytes # 0.04 K/uL Not Available [facility] ([facility]Op [facility]) [address] [place] [address] [place], [address], 08/17/2023 06:54:05 08/17/20 23 08/17/2023 CBC W/ AUTO DIFF nucleated red blood cells # 0.00 k/uL Not Available [facility] (Pre[facility]Op [facility]) [address] [place] [address] [place], [address], 08/17/2023 06:54:05 08/17/20 23 08/17/2023 CBC W/ AUTO DIFF manual differential NO Not Available [facility] ([facility]Op [facility]) [address] [place] [address] [place], [address], 08/17/2023 06:54:05 08/17/20 23 08/17/2023 CBC W/ AUTO DIFF note Unles s other ward noted testi ng perfo rmed at: [facility] [address] [place] [address] Mateo zamora MD Not Available [facility] ([facility]Op [facility]) [address] [place] [address] [place], [address], 08/17/2023 06:54:05 09/25/20 23 09/25/2023 CULTU RE URINE results MRB 09-26 719 >100, 000 COL/M L Gram Negat kristofer Rods Not Available [facility] (Lab Registration) [address] [place] [address] [place], [address], 09/26/2023 07:20:37 09/25/20 23 09/25/2023 CULTU RE URINE note Unles s other ward noted testi ng perfo rmed at: [facility] [address] [address] [place] [address] [phone] Mateo zamora MD CLIA: [id number] Not Available [facility] (Lab Registration) [address] [place] [address] [place], [address], 09/26/2023 07:20:37 09/25/20 23 09/25/2023 CULTU RE URINE culccur ===== ===== ===== ===== ===== ===== ===== ===== ===== ===== ===== ===== ===== ===== ===== ===== ===== ===== ===== ===== ===== ===== ===== ===== Speci men NO.: [id number] Exam Statu s: Final Proce dure: CULTU RE URINE ===== ===== ===== ===== ===== ===== ===== ===== ===== ===== ===== ===== ===== ===== ===== ===== ===== ===== ===== ===== ===== ===== ===== ===== Iso/R esult : 01 Pseud omona s aerug inosa Antim icrob ic/Do se CHICHO Syste chicho Urine __ ___ ___ Aztre onam >16 R R Cefep rigoberto 8 S S Cefta zidim e 4 S S Cipro floxa nuvia <=1 S S Genta micin 8 I I Levof loxac in 4 I I Merop enem <=1 S S Pip/T azo <=16 S S Tobra mycin <=4 S S MRB 09-26 719 >100, 000 COL/M L Gram Negat kristofer Rods Not Available [facility] (Lab Registration) [address], [place], [address], 09/27/2023 09:07:57 09/25/2009/25/2023 CULTU RE URINE note Unles s other ward noted testi ng perfo rmed at: [facility] [address] [place] [address] [phone] Mateo zamora MD CLIA: [id number] Not Available [facility] (Lab Registration) [address], [place], [address], 09/27/2023 09:07:57 09/25/20 23 09/25/2023 bladd er scan (PROC ) Calculated Residual Urine: 94 ml Not Available [address], [address], 09/25/2023 13:03:52 09/25/2009/25/2023 urina lysis , dipst ick Leukocytes (reference range) modera te Not Available [address], [address], 09/25/2023 13:03:51 09/25/20 23 09/25/2023 urina lysis , dipst ick Nitrite (reference range:) positi ve Not Available [address], [address], 09/25/2023 13:03:51 09/25/2009/25/2023 urina lysis , dipst ick Urobilinogen (reference range) 0.2 Not Available [address], [address], 09/25/2023 13:03:51 09/25/20 23 09/25/2023 urina lysis , dipst ick Protein (reference range) 300 Not Available [address], [address], 09/25/2023 13:03:51 09/25/20 23 09/25/2023 urina lysis , dipst ick pH (reference range 5-8.5) 5.5 Not Available [address], [address], 09/25/2023 13:03:51 09/25/20 23 09/25/2023 urina lysis , dipst ick Blood (reference range:) large Not Available [address], [address], 09/25/2023 13:03:51 09/25/20 23 09/25/2023 urina lysis , dipst ick Specific [place] (reference range) 1.020 Not Available [address], [address], 09/25/2023 13:03:51 09/25/20 23 09/25/2023 urina lysis , dipst ick Ketone (reference range) negati ve Not Available [address], [address], 09/25/2023 13:03:51 09/25/20 23 09/25/2023 urina lysis , dipst ick Bilirubin (reference range) negati ve Not Available [address], [address], 09/25/2023 13:03:51 09/25/20 23 09/25/2023 urina lysis , dipst ick Glucose (reference range) 1000 Not Available [address], [address], 09/25/2023 13:03:51 Result Notes None recorded. Problems Name Problem SNOMED Code Status Onset Date Resolution Date Notes Provider Name and Address Organization Details Recorded Time Benign prostatic hyperplasia with outflow obstruction 887775630 Active Panfilowilbert [place] Curiel - [facility] & [place] 3 14:05:26 Problem Notes None recorded. Procedures Surgical History Date Name Laterality Status Provider Name and Address Organization Details Recorded Time 3 Medina Catheter Insertion completed Jose Brown Jr, MD [address] [place] [address], [address], [place], [address], [place] - [facility] & [place] 07/30/2023 11:56:26 3 Cystoscopy-Mal e completed Jose Brown Jr, MD [address] [place] [address], [address], [place], [address], [place] - [facility] & [place] 06/06/2023 16:33:12 procedure on tendon completed Panfiloaaliyahludivina Lubin [facility] & [place] 04/10/2023 15:10:13 Imaging Results None recorded. Procedure Notes None recorded. Medical Equipment None Reported. Allergies Allergen ID Allergen Name Allergen Category Reaction Reaction Severity Criticality Documentation Date Start Date Code Code System Note Provider Name and Address Organization Details Recorded Time 769395 cetirizin e medicatio n Not available Not available Not available 08/30/202370247 RxNorm Other react ions and sever ities : 'Adve rse react ion to subst ance' . [place] Amezcua [facility] & [place] 3 14:05:13 [address] [facility] medicatio n Not available Not available Not available 04/10/2023 72074 RxNorm [facility] [facility] [place] 3 15:09:08 Medications Name Sig Start Date Stop Date Status Note LastModified by Organization Details LastModified Time vitamin d3 2000unit cap TAKE 1 CAPSULE BY MOUTH ONCE DAILY active Not Available Not Available No t Available metformin 500 mg tablet 500 mg by oral route. active Not Available Not Available No t Available albuterol sulfate 2.5 mg/3 mL (0.083 %) solution for nebulizatio n 2.5 mg by inhalatio n route. 08/17 completed Not Available Not Available Not Available hydrocodone 5 mg-acetamin ophen 325 mg tablet 1 tablet by oral route. 08/17 completed Not Available Not Available Not Available Diprivan 10 mg/mL intravenous emulsion 200 mg by intraven. route. 08/18 completed Not Available Not Available Not Available sodium chloride 0.45 % intravenous solution 1000 mL by intraven. route. 08/17 completed Not Available Not Available Not Available clopidogrel 75 mg tablet TAKE 1 TABLET BY MOUTH ONCE DAILY FOR BLOOD CLOTS active Not Available Not Available No t Available amlodipine 5 mg tablet 10 mg by oral route. active Not Available Not Available No t Available aspirin 81 mg tablet,megha yed release TAKE 1 TABLET BY MOUTH ONCE DAILY FOR BLOOD THINNER active Not Available Not Available No t Available Lipitor 40 mg tablet 40 mg by oral route. 08/17 completed Not Available Not Available Not Available amlodipine 10 mg tablet TAKE 1 TABLET BY MOUTH ONCE DAILY active Not Available Not Available No t Available cephalexin 500 mg capsule TAKE 1 CAPSULE BY MOUTH TWICE DAILY FOR 5 DAYS active Not Available Not Available No t Available metformin 1,000 mg tablet TAKE 1 TABLET BY MOUTH TWICE DAILY active Not Available Not Available No t Available lisinopril 10 mg tablet TAKE 1 TABLET BY MOUTH ONCE DAILY FOR BLOOD PRESSURE active Not Available Not Available No t Available fentanyl (PF) 50 mcg/mL injection solution 100 microgram s by injection route. 08/16 completed Not Available Not Available Not Available doxazosin 4 mg tablet Take 1 tablet every day by oral route. 2022 active Not Available Not Available Not Avai lable lisinopril 5 mg tablet 10 mg by oral route. active Not Available Not Available No t Available mupirocin 2 % topical ointment APPLY OINTMENT TOPICALLY TO AFFECTED AREA TWICE DAILY FOR 14 DAYS active Not Available Not Available No t Available dexamethaso ne sodium phosphate 4 mg/mL injection solution 4 mg by injection route. 08/18 completed Not Available Not Available Not Available levofloxaci n 500 mg tablet TAKE 1 TABLET BY MOUTH ONCE DAILY active Not Available Not Available No t Available levofloxaci n 750 mg tablet TAKE 1 TABLET BY MOUTH EVERY 48 HOURS FOR 7 DAYS active Not Available Not Available No t Available albuterol sulfate HFA 90 mcg/actuati on aerosol inhaler 2 pufs by inhalatio n route. active Not Available Not Available No t Available cefdinir 300 mg capsule TAKE 1 CAPSULE BY MOUTH EVERY 12 HOURS active Not Available Not Available No t Available amoxicillin 500 mg-potassiu m clavulanate 125 mg tablet TAKE 1 TABLET BY MOUTH TWICE DAILY active Not Available Not Available No t Available sodium chloride 0.9 % (flush) injection syringe 10 mL by injection route. 08/17 completed Not Available Not Available Not Available hydromorpho ne 1 mg/mL injection syringe 1 mg by injection route. 08/16 completed Not Available Not Available Not Available rosuvastati n 20 mg tablet TAKE 1 TABLET BY MOUTH ONCE DAILY FOR HIGH CHOLESTER OL active Not Available Not Available No t Available lidocaine (PF) 20 mg/mL (2 %) injection solution 5 mL by injection route. 08/18 completed Not Available Not Available Not Available ondansetron HCl (PF) 4 mg/2 mL injection solution 4 mg by injection route. 08/17 completed Not Available Not Available Not Available cholecalcif palmira (vitamin D3) 1,250 mcg (50,000 unit) capsule TAKE 1 CAPSULE BY MOUTH ONCE A WEEK active Not Available Not Available No t Available lidocaine 2 % mucosal jelly in applicator 10 mL by mucous mem route. 08/16 completed Not Available Not Available Not Available ephedrine (PF) 50 mg/5 mL (10 mg/mL) in 0.9% sod. chloride IV syringe 50 mg by intraven. route. 08/18 completed Not Available Not Available Not Available Vitamin D3 50 mcg (2,000 unit) capsule TAKE 1 CAPSULE BY MOUTH ONCE DAILY active Not Available Not Available No t Available Ultra Thin Lancets 30 gauge USE DIRECTED active Not Available Not Available No t Available Jardiance 10 mg tablet TAKE 1 TABLET BY MOUTH ONCE DAILY active Not Available Not Available No t Available Accu-Chek Guide test strips USE DIRECTED active Not Available Not Available No t Available [facility] COVID-19 Antigen Rapid Home Test kit USE DIRECTED active Not Available Not Available No t Available Vitals Date Recorded Body height Body mass index (BMI) Body weight Body temperature Provider Name and Address Organization Details Last Updated DateTime 04/03/2024 177.8 cm 22.4 kg/m2 00267.41 g 98 [degF] Viky Espino [facility] & [place] 04/03/2024 11:31:52 Date Recorded Body height Body mass index (BMI) Body weight Body temperature Provider Name and Address Organization Details Last Updated DateTime 07/30/2023 177.8 cm 22.4 kg/m2 67240.41 g 97.8 [degF] Jessica Webb [facility] & [place] 07/30/2023 10:20:25 Date Recorded Body height Body mass index (BMI) Body weight Body temperature Provider Name and Address Organization Details Last Updated DateTime 08/30/2023 177.8 cm 22.4 kg/m2 95927.41 g 97.9 [degF] Marisel SMILEY - [facility] - [place] & [place] 08/30/2023 14:05:08 Date Recorded Body height Body mass index (BMI) Body weight Body temperature Provider Name and Address Organization Details Last Updated DateTime 09/25/2023 177.8 cm 22.4 kg/m2 37160.41 g 97.9 [degF] Marisel Lubin [facility] & [place] 09/25/2023 13:03:14 Social History None recorded. Functional Status Question Answer Note LastModified by Organizat ion Details LastModified Time What is your level of alcohol consumption? Occasional [email or web address] Information not available 04/10/2023 Mental Status None recorded. Family History Relationship Description Onset Age of this Age Resolved Age Notes LastModified by Organization Details LastModified Time Brother Family history unknown Not available 2022 15:09:42 Sister Family history unknown Not available 2022 15:09:42 Father Family history unknown [email or web address] Not available 2022 15:09:42 Mother Family history unknown [email or web address] Not available 2022 15:09:42 Medical History No medical history recorded. Past Encounters Encounter ID Performer Location Encounter Start Date Encounter Closed Date Diagnosis/Indication Diagnosis SNOMED-CT Code Diagnosis ICD10 Code Diagnosis Note [id number] MD Jeronimo Bryan Jr [facility] [address] [address] 04/10/2023 14:30:14 04/10/2023 15:07:26 Prostate specific antigen above reference range 789211078 R97.20 Patient with history of elevated PSA. His PSAs have been stable for several years. We will repeat a free and total PSA today. His prostate exam was benign. Lower urin dacia tract symptoms due to benign prostatic hypertrophy [id number] 9101 N40.1 patient with history of BPH. He is doing well with the doxazosin 4 mg in his to continue. [id number] MD Jeronimo Bryan Jr [facility] [place] [address] 06/06/2023 13:12:45 06/06/2023 14:28:47 Incomplete emptying of urinary bladder due to benign prostatic hypertrophy [id number] 88994 N40.1 patient with urinary retention. he had a Medina catheter on presentati on today. Catheter was removed and cystoscopy performed under sterile conditions . Cystoscopy revealed 3+ trabeculat ion of the bladder with cellule formation. Prostate showed bilobar hyperplasi a and median lobe was small. On filling of the bladder patient did feel fullness at 400 cc. He was unable to void after the scope was removed. Medina catheter was replaced. We discussed treatment options and UroLift was sky rodriguez. We discussed the procedure and complicati ons. He would like to proceed. We will get cardiac clearance from his [facility] [facility] We discussed that he will need to discontinu e the aspirin 7 days prior and the Plavix 5 days prior to the procedure. Chronic ki dney disease [id number] N18.9 patient is lower urinary tract obstructio n is likely contributi ng. Prostate s pecific antigen above reference range [id number] R97.20 Patient with history of elevated PSA. His PSAs have been stable for several years. most recent PSA was stable free PSA puts him at a low risk for prostate cancer. [id number] Jose Brown Jr, MD [facility] [address] [place] [address] BALJIT CEDILLO [address] 07/09/2023 10:51:34 07/09/2023 11:27:01 Incomplete emptying of urinary bladder due to benign prostatic hypertrophy [id number] 95345 N40.1 patient with history of urinary retention secondary to BPH. He has chronic bladder outlet obstructiv e changes in his bladder and the large prostate. Six implants were placed a week ago and he returns today for voiding trial. We instilled 250 cc into his bladder but avoid that out. He was allowed to go home to push fluids. If he should not be able to pee should go back to the emergency room for catheter and follow-up with me. [id number] Jose Brown Jr, MD [facility] [address] [place] [address] [facility] [address] 07/16/2023 08:25:20 07/16/2023 09:01:22 Incomplete emptying of urinary bladder due to benign prostatic hypertrophy [id number] 53921 N40.1 patient with history of urinary retention secondary to BPH. He has chronic bladder outlet obstructiv e changes in his bladder and the large prostate. he failed a voiding trial last week and has a Medina catheter in place. He is currently on antibiotic s for reported bladder infection. We discussed keeping the catheter in another couple of weeks and attempting another voiding trial. We discussed that if he fails that 1 he would be a candidate for TURP. Prostate s pecific antigen above reference range [id number] R97.20 Patient with history of elevated PSA. His PSAs have been stable for several years. most recent PSA was stable free PSA puts him at a low risk for prostate cancer. [id number] Jose Brown Jr, MD [facility] [address] [place] [address] 07/30/2023 09:14:19 07/30/2023 11:33:31 Incomplete emptying of urinary bladder due to benign prostatic hypertrophy [id number] 51703 N40.1 patient with history of urinary retention secondary to BPH. He has chronic bladder outlet obstructiv e changes in his bladder and the large prostate. Patient has failed a voiding trial 1 week after the UroLift and comes in today for repeat voiding trial. 400 cc placed into his bladder but was only able to void 50 cc. Medina catheter was replaced and we discussed other options including TURP versus chronic indwelling Medina versus clean intermitte nt catheteriz ation. Patient would like to proceed with surgical interventi on. We will get him back to see his cardiologi st regarding clearance as he is on Plavix for history of coronary stents. He will need to stop the Plavix 5 days prior to his procedure. [id number] Jose Brown Jr, MD [facility] [address] [place] [address] 08/21/2023 14:46:21 08/21/2023 15:09:20 Incomplete emptying of urinary bladder due to benign prostatic hypertrophy [id number] 02867 N40.1 patient is status post TURP 5 days ago. Voiding trial performed today at 550 cc was placed into his bladder and his catheter then removed. Patient was able to void 500 cc with a good stream. He is very happy with this. Urine color was a bit pink in color and he has gone back on his aspirin but continues to hold the Plavix. We discussed pushing ooze and restrictin g any strenuous activities . When his urine clears he may restart the Plavix. I will see him back in 1 month in follow-up. [id number] Jose Brown Jr, MD [facility] [address] [address] 09/25/2023 12:55:34 09/25/2023 13:12:58 Lower urinary tract symptoms due to benign prostatic hypertrophy [id number] 9101 N40.1 Patient with history of bladder outlet obstructio n. He underwent a TURP several weeks ago. He returns today and states he is voiding with a good stream. His bladder scan today indicates a residual of only 94 cc. He was reassured that he is emptying out well. His pathology showed no evidence of cancer. Urinary tr act infectious disease [id number] N39.0 Patient with symptoms of a UTI today. His urinalysis does look suspicious . We will culture it and he was placed on cefdinir. [id number] Jose Brown Jr, MD [address] [address] 08/30/2023 13:57:52 08/30/2023 14:08:26 Reji hematuria [id number] R31.0 patient with some gross hematuria 2 weeks after TURP. His urine looks acceptably clear in his sample today. We discussed stopping the aspirin and pushing fluids. I also offered to place a catheter put some pressure on prostate wall but he does not want to do that. Incomplete emptying of urinary bladder due to benign prostatic hypertrophy [id number] 79715 N40.1 patient states he is voiding well after the TURP. [id number] [facility] Jr, MD [facility] [address] [address] 04/03/2024 11:07:58 04/03/2024 11:38:20 Screening for malignant neoplasm of prostate [id number] Z12.5 Will check PSA today. PSA was 10.2 03/2023 and 7 on 05/2022. Benign pro static hyperplasia with outflow obstruction [id number] N40.1 Pt with h/o urinary retention s/p TURP 08/2023. Pt voiding well and pleased with results.Pa th benign. Pt off prostate meds. Health Concerns Section Related Observation LastModified by Organization Detai ls LastModified Time None Recorded Concern Status LastModified by Organization Details LastModified Time None Recorded Advance Directives Directive None Recorded Payers Insurance Date Sequence Insurance Name Policy Number Policy Zamora Covered Member ID Zamora Member ID Guarantor Name 04/18/2025 1 ALEKSANDRA-BALJIT: BEATRICE ALEKSANDRA OF BALJIT [id number] Cole Feliz Jr [id number] [place] [facility] Notes Date Note Type Note Provider Name and Address Organization Details Recorded Time 07/30/2023 text/html Patient is a 78-year-old white male with history of urinary retention secondary to BPH. He underwent a urolith procedure July 02 and voiding trial was unsuccessful. He returns today for repeat voiding trial. Jose Brown Jr, MD [address] [place] [address], [address], [address], [facility] 07/30/2023 11:56:55 08/21/2023 text/html Patient returns today status post TURP days ago. States his urine has been pretty clear in the Medina bag. He denies any nausea, vomiting, fevers or chills. His pathology showed no evidence of prostate cancer in the prostate chips. Patient presents for voiding trial today. Jose Brown Jr, MD [address] [place] [address], [address], [place], [address], [facility] 08/21/2023 15:15:29 08/30/2023 text/html patient patient is a 77-year-old white male status post a TURP 2 weeks ago. He returns today because of some blood in his urine. 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 He states he is having a bit of blood oozing out the meatus. Has restarted his aspirin. His been off of Plavix since before his procedure. Jose Brown Jr, MD [address] [place] [address], [address], [address], [facility] 08/30/2023 14:50:44 09/25/2023 text/html Patient is a 78-year-old white male with a history of urinary retention secondary to BPH. He underwent a TURP last month and follows up today. He states he is voiding well and is only getting up at night 1 time. His bladder scan today indicates a residual of only 94 cc. Does feel like he may have urinary tract infection as his urine is a bit cloudy and having some burning. Jose Brown Jr, MD [address] [place] [address], [address], [place], [address], [facility] & [place] 09/25/2023 15:01:39 04/03/2024 text/html 78 yo WM with h/ o urinary retention s/p TURP 08/2023. He states he is voiding well. Nocturia only 1 time. He had a UTI at last visit in September but denies any recurrent symtpoms. His bladder scan at last visit was 94 cc. Path showed no cancer. Jose Brown Jr, MD [address] [place] [address], [address], [place], [address], [facility] & [place] 04/12/2024 19:53:23
--- OUTSIDE RECORDS SUMMARY | 2025-04-27 08:42 | XMS_ITS | Encounter Summary ---
Author Organization [facility] Address [address] [place] [address] Care Team Providers Care Tractor Trailer Truck Driver Name Role Phone Forrest Nickerson CUSHION MAT MAKER Unavailable [phone] Casa Phillips MD Primary Care Provider [phone] Encounter Details Date Type Department Care Team [...] any time in the past 12 m [facility], were you homeless or living in [...] CC Head, Neck & Respiratory [address] [facility], [address] [place] [address] Nikolai Naranjo MD [address] [facility] Lorin Avila [facility] [address] [place] [address] documented as of this encounter Visit Diagnoses Not on filedocumented in this encounter Additional Health Concerns Assessment Noted Time A fall risk assessment has been complete d for the patient 02/23/2025 8:48 AM EDT A Body Mass Index follow-up plan has been documented for the patient 04/04/2025 10:30 AM EDT documented as of this encounter Care Teams Tractor Trailer Truck Driver Relationship Specialty Start Date End Date Casa Phillips MD [address] [place] [address] PCP - General 02/22/25 Forrest Nickerson APRN [address] [place] [address] 03/06/23 documented as of this encounter
--- OUTSIDE RECORDS SUMMARY | 2025-04-27 08:42 | XMS_ITS | Encounter Summary ---
Author Organization [facility] Address [address] [place] [address] Care Team Providers Care Olive Grader Name Role Phone Demetrio Nickersonann Theresa PAYROLL AND BENEFITS ASSISTANT Unavailable [phone] Casa Phillips MD Primary Care Provider [phone] Encounter Details Date Type Department Care Team [...] Pav CC Head, Neck & Respiratory [address] [facility], [address]nd [place] [address] Nikolai Naranjo MD [address] [facility] Lorin Avila [address] [place] [address] documented as of this encounter Visit Diagnoses Not on filedocumented in this encounter Additional Health Concerns Assessment Noted Time A fall risk assessment has been complete d for the patient 02/23/2025 8:48 AM EDT A Body Mass Index follow-up plan has been documented for the patient 04/04/2025 10:30 AM EDT documented as of this encounter Care Teams Olive Grader Relationship Specialty Start Date End Date Casa Phillips MD [address] [place] [address] PCP - General 02/22/25 Forrest Nickerson APRN [address] [place] [address] 03/06/23 documented as of this encounter
--- OUTSIDE RECORDS SUMMARY | 2025-04-27 08:42 | XMS_ITS | Encounter Summary ---
Author Organization [facility] Address [address] [place] [address] Care Team Providers Care Cast Iron Drain Pipe Layer Name Role Phone Forrest Nickerson CAREER DEVELOPMENT COORDINATOR Unavailable [phone] Casa Phillips MD Primary Care Provider [phone] Encounter Details Date Type Department Care Team [...] Pav CC Head, Neck & Respiratory [address] [facility], [address]nd [place] [address] Nikolai Naranjo MD [address] [facility] [address] [place] [address] documented as of this encounter Visit Diagnoses Not on filedocumented in this encounter Additional Health Concerns Assessment Noted Time A fall risk assessment has been complete d for the patient 02/23/2025 8:48 AM EDT A Body Mass Index follow-up plan has been documented for the patient 04/04/2025 10:30 AM EDT documented as of this encounter Care Teams Cast Iron Drain Pipe Layer Relationship Specialty Start Date End Date Casa Phillips MD [address] [place] [address] PCP - General 02/22/25 Forrest Nickerson APRN [address] [place] [address] 03/06/23 documented as of this encounter
--- OUTSIDE RECORDS SUMMARY | 2025-04-27 08:42 | XMS_ITS | Encounter Summary ---
Author Organization [facility] Address [address] [place] [address] Care Team Providers Care Payment Processor Name Role Phone Forrest Nickerson ROAD GRADER OPERATOR Unavailable Casa Phillips MD Primary Care Provider [phone] Encounter Details Date Type Department Care Team [...] the past 12 months has th e Walk-in Appointment Scheduler, gas, oil, or water company threatened to [...] Suicidal Behavior (Lifetime) No 8:00 AM EDT Nery Eason documented as of this encounter Plan of Treatment Upcoming Encounters Date Type Department Care Team (Late st Contact Info) Description 07/06/2025 10:40 AM EDT Office Visit Pav CC Head, Neck & Respiratory [address] [facility], [address] [place] [address] Nikolai Naranjo MD [address] [facility] [address] [place] [address] documented as of this encounter Visit Diagnoses Not on filedocumented in this encounter Additional Health Concerns Assessment Noted Time A fall risk assessment has been complete d for the patient 02/23/2025 8:48 AM EDT A Body Mass Index follow-up plan has been documented for the patient 04/04/2025 10:30 AM EDT documented as of this encounter Care Teams Payment Processor Relationship Specialty Start Date End Date Casa Phillips MD [address] [place] [address] PCP - General 02/22/25 Forrest Nickerson APRN [address] [place] [address] 03/06/23 documented as of this encounter
--- OUTSIDE RECORDS SUMMARY | 2025-04-27 08:42 | XMS_ITS | Encounter Summary ---
Author Organization [facility] Address [address] [place] [address] Care Team Providers Care Recovery Operator Name Role Phone Forrest Nickerson OFFICE REP Unavailable [phone] Casa Phillips MD Primary Care Provider [phone] Encounter Details Date Type Department Care Team [...] Upcoming Encounters Date Type Department Care Team ([facility] Contact Info) Description 07/06/2025 10:40 AM EDT Office Visit Pav CC Head, Neck & Respiratory [address] [facility], [address]nd [place] [address] Nikolai Naranjo MD [address] [facility] Lorin Avila [facility] [address] [place] [address] documented as of this encounter Visit Diagnoses Not on filedocumented in this encounter Additional Health Concerns Assessment Noted Time A fall risk assessment has been complete d for the patient 04/06/2025 10:27 AM EDT A Body Mass Index follow-up plan has been documented for the patient 04/06/2025 12:11 PM EDT documented as of this encounter Care Teams Recovery Operator Relationship Specialty Start Date End Date Casa Phillips MD [address] [place] [address] PCP - General 02/22/25 Forrest Nickerson APRN [address] [place] [address] 03/06/23 documented as of this encounter
--- OUTSIDE RECORDS SUMMARY | 2025-04-27 08:42 | XMS_ITS | Encounter Summary ---
Author Organization [facility] Address [address] [place] [address] Care Team Providers Care Leather Colorer Name Role Phone Forrest Nickerson ADVANCE SCOUT Unavailable [phone] Casa Phillips MD Primary Care Provider [phone] Encounter Details Date Type Department Care Team [...] any time in the past [address] [facility], were you homeless or living in [...] CC Head, Neck & Respiratory [address] [facility], [address]nd [place] [address] Nikolai Naranjo MD [address] [facility] Lorin Avila [facility] [address] [place] [address] documented as of this encounter Visit Diagnoses Not on filedocumented in this encounter Additional Health Concerns Assessment Noted Time A fall risk assessment has been complete d for the patient 02/23/2025 8:48 AM EDT A Body Mass Index follow-up plan has been documented for the patient 04/04/2025 10:30 AM EDT documented as of this encounter Care Teams Leather Colorer Relationship Specialty Start Date End Date Casa Phillips MD [address] [place] [address] PCP - General 02/22/25 Forrest Nickerson APRN [address] [place] [address] 03/06/23 documented as of this encounter
--- OUTSIDE RECORDS SUMMARY | 2025-04-27 08:42 | XMS_ITS | Encounter Summary ---
Author Organization [facility] Address [address] [place] [address] Care Team Providers Care Hvac R Instructor Name Role Phone Forrest Nickerson LINING REPAIRER Unavailable [phone] Casa Phillips MD Primary Care Provider [phone] Encounter Details Date Type Department Care Team [...] Pav CC Head, Neck & Respiratory [address] [facility], [address]nd [place] [address] Nikolai Naranjo MD [address] [facility] Lorin Avila [facility] [address] [place] [address] documented as of this encounter Visit Diagnoses Not on filedocumented in this encounter Additional Health Concerns Assessment Noted Time A fall risk assessment has been complete d for the patient 02/23/2025 8:48 AM EDT A Body Mass Index follow-up plan has been documented for the patient 04/04/2025 10:30 AM EDT documented as of this encounter Care Teams Hvac R Instructor Relationship Specialty Start Date End Date Casa Phillips MD [address] [place] [address] PCP - General 02/22/25 Forrest Nickerson APRN [address] [place] [address] 03/06/23 documented as of this encounter
--- OUTSIDE RECORDS SUMMARY | 2025-04-27 08:42 | XMS_ITS | Encounter Summary ---
Author Organization [facility] Address [address] [place] [address] Care Team Providers Care Composite Technician Name Role Phone Forrest Nickerson INGREDIENT SCALER Unavailable [phone] Casa Phillips MD Primary Care Provider [phone] Encounter Details Date Type Department Care Team [...] No 04/01/2025 8:00 AM EDT Fitz Calle RN 6. Suicidal Behavior (Lifetime) No 8:00 AM EDT Fitz Calle RN documented as of this encounter Plan of Treatment Upcoming Encounters Date Type Department Care Team (Late st Contact Info) Description 07/06/2025 10:40 AM EDT Office Visit Pav CC Head, Neck & Respiratory [address] [facility], 2nd [place] [address] Nikolai Naranjo MD [address] [facility] Lorin Avila [facility] [address] [place] [address] documented as of this encounter Visit Diagnoses Not on filedocumented in this encounter Additional Health Concerns Assessment Noted Time A fall risk assessment has been complete d for the patient 02/23/2025 8:48 AM EDT A Body Mass Index follow-up plan has been documented for the patient 04/04/2025 10:30 AM EDT documented as of this encounter Care Teams Composite Technician Relationship Specialty Start Date End Date Casa Phillips MD [address] [place] [address] PCP - General 02/22/25 Forrest Nickerson APRN [address] [place] [address] 03/06/23 documented as of this encounter
--- OUTSIDE RECORDS SUMMARY | 2025-04-27 08:43 | XMS_ITS | Encounter Summary ---
Author Organization [facility] Address [address] [place] [address] Care Team Providers Care Content Checker Name Role Phone Demetrio trevinoann Theresa WOOL WASHING MACHINE OPERATOR Unavailable [phone] Casa Phillips MD Primary Care Provider [phone] Encounter Details Date Type Department Care Team (Late st Contact Info) Description 03/11/2025 Telephone Pav CC Head, Neck & Respiratory [address] [place] [address] Ирина Lopez MD [address] [facility] [address] [place] [address] Social History Tobacco Use Types [...] regarding FMLA specific adjustments to letter needed. [phone], please call after 3:00pm * Telephone Encounter - Kimmy Kline - 03/11/2025 3:59 PM EDT Patient Phone Message Reason for Call: Daughter needs a call back from clinical care team to update/adjust FMLA for pt's caregiver Nora. Best contact number and optimal time of day to reach caller: [phone], Note: Please do not reply to this message. Follow-up communication and further actions as a result of this message need to be communicated with the patient directly, if the patient is not active onMyChart. If the patient is active on MyChart, they will receive notification of the communication/outcome via Plicker[employer]. documented in this encounter Plan of Treatment Upcoming Encounters Date Type Department Care Team (Late st Contact Info) Description 07/06/2025 10:40 AM EDT Office Visit Pav CC Head, Neck & Respiratory [address] [facility], [address] [place] [address] Nikolai Naranjo MD [address] [facility] Lor[address] Avila [facility] [address] [place] [address] documented as of this encounter Visit Diagnoses Not on filedocumented in this encounter Additional Health Concerns Assessment Noted Time A fall risk assessment has been complete d for the patient 02/23/2025 8:48 AM EDT A Body Mass Index follow-up plan has been documented for the patient 02/25/2025 5:11 PM EDT documented as of this encounter Care Teams Content Checker Relationship Specialty Start Date End Date Casa Phillips MD [address] [place] [address] PCP - General 02/22/25 Forrest Nickerson APRN [address] [place] [address] 03/06/23 documented as of this encounter
--- OUTSIDE RECORDS SUMMARY | 2025-04-27 08:43 | XMS_ITS | Encounter Summary ---
Author Organization [facility] Address [address] [place] [address] Care Team Providers Care Comparator Operator Name Role Phone Demetrio Nickersonann Cardenas QUALITY CONTROL DIRECTOR Unavailable [phone] Casa Phillips MD Primary Care Provider [phone] Encounter Details Date Type Department Care Team (Late st Contact Info) Description 03/02/2025 Telephone Pav CC Head, Neck & Respiratory 800 [facility], 2nd [place] [address] Nikolai Naranjo MD 800 [facility] [address] [place] [address] Social History Tobacco Use Types [...] EDT Patient's daughter called wondering about the [facility] paperwork. Please call back. documented in this encounter Plan of Treatment Upcoming Encounters Date Type Department Care Team (Late st Contact Info) Description 07/06/2025 10:40 AM EDT Office Visit Pav CC Head, Neck & Respiratory 800 [facility], 2nd [place] [address] Nikolai Naranjo MD 800 [facility] Lorin Avila [facility] [address] [place] [address] documented as of this encounter Visit Diagnoses Not on filedocumented in this encounter Additional Health Concerns Assessment Noted Time A fall risk assessment has been complete d for the patient 02/23/2025 8:48 AM EDT A Body Mass Index follow-up plan has been documented for the patient 02/25/2025 5:11 PM EDT documented as of this encounter Care Teams Comparator Operator Relationship Specialty Start Date End Date Casa Phillips MD [address] [place] [address] PCP - General 02/22/25 Forrest Nickerson APRN [address] [place] [address] 03/06/23 documented as of this encounter
--- OUTSIDE RECORDS SUMMARY | 2025-04-27 08:43 | XMS_ITS | Encounter Summary ---
Author Organization [facility] Address [address] [place] [address] Care Team Providers Care Mycologist Name Role Phone Demetrio Nickersonann Cradenas COMBAT INFORMATION CENTER OFFICER Unavailable [phone] Casa Phillips MD Primary Care Provider [phone]- [phone] Encounter Details Date Type Department Care Team (Late st Contact Info) Description 03/02/2025 Telephone Pav CC Head, Neck & Respiratory 800 [facility], 2nd [place] [address] Nikolai Naranjo MD 800 [facility] [address] [place] [address] Social History Tobacco Use Types Packs/Day Years [...] called to request more information on the FMLA paperwork. She says the Part B section needs filled out and have the MD resign and date, and then refax the paperwork. Itneeds to be broken down by how many appointments per month and how many hours, etc. Pt also needs to know to go to the CT scan scheduled at [facility]. He has surgery 03/29 and had a MRI. They are wondering to know if they still need that scan. Best contact number and optimal time of day to reach caller: [phone] Note: Please do not reply to this message. Follow-up communication and further actions as a result of this message need to be communicated with the patient directly, if the patient is not active onMyChart. If the patient is active on MyChart, they will receive notification of the communication/outcome via linkedühart. documented in this encounter Plan of Treatment Upcoming Encounters Date Type Department Care Team (Late st Contact Info) Description 07/06/2025 10:40 AM EDT Office Visit Pav CC Head, Neck & Respiratory 800 [facility], 2nd [place] [address] Nikolai Naranjo MD 800 [facility] [address] [place] [address] documented as of this encounter Visit Diagnoses Not on filedocumented in this encounter Additional Health Concerns Assessment Noted Time A fall risk assessment has been complete d for the patient 02/23/2025 8:48 AM EDT A Body Mass Index follow-up plan has been documented for the patient 02/25/2025 5:11 PM EDT documented as of this encounter Care Teams Mycologist Relationship Specialty Start Date End Date Casa Phillips MD [address] [place] [address] PCP - General 02/22/25 Forrest Nickerson APRN [address] [place] [address] 03/06/23 documented as of this encounter
--- OUTSIDE RECORDS SUMMARY | 2025-04-27 08:43 | XMS_ITS | Encounter Summary ---
Author Organization [facility] Address [address] [place] [address] Care Team Providers Care Television News Anchor Name Role Phone Forrest Nickerosn FREELANCE WEB DESIGNER Unavailable [phone] Casa Phillips MD Primary Care Provider [phone] Encounter Details Date Type Department Care Team (Latest Contact Info) Description 04/20/2025 Travel Social History Tobacco Use Types Packs/Day [...] time in the past 12 m [facility], were you homeless or living [...] Pav CC Head, Neck & Respiratory 800 [facility], [address]nd [place] [address] Nikolai Naranjo MD 800 [facility] Lorin Avila [facility] [address] [place] [address] documented as of this encounter Visit Diagnoses Not on filedocumented in this encounter Additional Health Concerns Assessment Noted Time A fall risk assessment has been complete d for the patient 04/20/2025 10:24 AM EDT A Body Mass Index follow-up plan has been documented for the patient 04/23/2025 4:10 PM EDT documented as of this encounter Care Teams Television News Anchor Relationship Specialty Start Date End Date Casa Phillips MD [address] [place] [address] PCP - General 02/22/25 Forrest Nickerson APRN [address] [place] [address] 03/06/23 documented as of this encounter
--- OUTSIDE RECORDS SUMMARY | 2025-04-27 08:43 | XMS_ITS | Encounter Summary ---
Author Organization [facility] Address [address] [place] [address] Care Team Providers Care Fish Stringer Assembler Name Role Phone Demetrio Nickersonann Theresa SUPERVISOR SLASHING DEPARTMENT Unavailable Casa Phillips MD Primary Care Provider [phone] Encounter Details Date Type Department Care Team (Late st Contact Info) Description 04/20/2025 Telephone Pav CC Head, Neck & Respiratory [address], 2nd [place] [address] Ирина Lopez MD [address] [facility] [address] [place] [address] Social History Tobacco Use Types [...] in the past 12 m [facility], were you homeless or living in a residential (including now)? No 03/31/2025 Utilities Answer Date [...] encounter Miscellaneous Notes * Telephone Encounter - Dagoberto Lindsey - 04/20/2025 12:50 PM EDT Patients daughter calling regarding pain medication not being sent to [facility] in [place]. I confirmed it was sent at 11:42am. documented in this encounter Plan of Treatment Upcoming Encounters Date Type Department Care Team (Late st Contact Info) Description 07/06/2025 10:40 AM EDT Office Visit Pav CC Head, Neck & Respiratory 800 [facility], 2nd [place] [address] Nikolai Naranjo MD 800 [facility] [address] [place] [address] documented as of this encounter Visit Diagnoses Not on filedocumented in this encounter Additional Health Concerns Assessment Noted Time A fall risk assessment has been complete d for the patient 04/20/2025 10:24 AM EDT A Body Mass Index follow-up plan has been documented for the patient 04/23/2025 4:10 PM EDT documented as of this encounter Care Teams Fish Stringer Assembler Relationship Specialty Start Date End Date Casa Phillips MD [address] [place] [address] PCP - General 02/22/25 Forrest Nickerson APRN [address] [place] [address] 03/06/23 documented as of this encounter
--- OUTSIDE RECORDS SUMMARY | 2025-04-27 08:43 | XMS_ITS | Encounter Summary ---
Author Organization [facility] Address [address] [place] [address] Care Team Providers Care Lead Portfolio Manager Name Role Phone Forrest Nickerson HEALTH PROFESSIONAL Unavailable [phone] Casa Phillips MD Primary Care Provider [phone] Encounter Details Date Type Department Care Team (Late Contact Info) Description 03/03/2025 Telephone Pav CC Head, Neck & Respiratory [address] [address] Kirstie Trejo, RN Social History Tobacco Use [...] Upcoming Encounters Date Type Department Care Team ([facility] Contact Info) Description 07/06/2025 10:40 AM EDT Office Visit Pav CC Head, Neck & Respiratory 800 [facility] 2nd [place] [address] Nikolai Naranjo MD [address] Lorin Avila [facility] [address] [place] [address] documented as of this encounter Visit Diagnoses Not on filedocumented in this encounter Additional Health Concerns Assessment Noted Time A fall risk assessment has been complete d for the patient 02/23/2025 8:48 AM EDT A Body Mass Index follow-up plan has been documented for the patient 02/25/2025 5:11 PM EDT documented as of this encounter Care Teams Lead Portfolio Manager Relationship Specialty Start Date End Date Casa Phillips MD [address] [place] [address] PCP - General 02/22/25 Forrest Nickerson APRN [address] [place] [address] 03/06/23 documented as of this encounter
--- OUTSIDE RECORDS SUMMARY | 2025-04-27 08:43 | XMS_ITS | Encounter Summary ---
Author Organization [facility] Address [address] [place] [address] Care Team Providers Care Planner Chief Name Role Phone Demetrio Nickersonann Theresa VAT SKIMMER Unavailable [phone] Casa Phillips MD Primary Care Provider [phone] Encounter Details Date Type Department Care Team (Late st Contact Info) Description 04/19/2025 Telephone Pav CC Head, Neck & Respiratory [address] 2[address] [place] [address] Manny Lopez MD [address] [place] [address] Social History Tobacco Use Types Packs/Day Years [...] time in the past 12 m [facility], were you homeless or living in [...] encounter Miscellaneous Notes * Telephone Encounter - Karri Medina - 04/19/2025 1:15 PM EDT Branden at [facility] [phone] called for lon said to call him back documented in this encounter Plan of Treatment Upcoming Encounters Date Type Department Care Team (Late st Contact Info) Description 07/06/2025 10:40 AM EDT Office Visit Pav CC Head, Neck & Respiratory 800 [facility], 2nd [place] [address] Nikolai Naranjo MD 800 [facility] [address] [place] [address] documented as of this encounter Visit Diagnoses Not on filedocumented in this encounter Additional Health Concerns Assessment Noted Time A fall risk assessment has been complete d for the patient 04/06/2025 10:27 AM EDT A Body Mass Index follow-up plan has been documented for the patient 04/06/2025 12:11 PM EDT documented as of this encounter Care Teams Planner Chief Relationship Specialty Start Date End Date Casa Phillips MD [address] [place] [address] PCP - General 02/22/25 Forrest Nickerson APRN [address] [place] [address] 03/06/23 documented as of this encounter
--- OUTSIDE RECORDS SUMMARY | 2025-04-27 08:43 | XMS_ITS | Encounter Summary ---
Author Organization [facility] Address [address] [place] [address] Care Team Providers Care Jackhammer Operator Name Role Phone Zari Nickersonhéctor Theresa CANE SPLICER Unavailable [phone] Casa Phillips MD Primary Care Provider [phone] Encounter Details Date Type Department Care Team (Late st Contact Info) Description 03/04/2025 Results Follow-Up Pav CC Head, Neck & Respiratory 800 [facility], 2nd [place] [address] Nikolai Naranjo MD [address] [facility] [address] [place] [address] Social History Tobacco Use Types Packs/Day Years [...] Department Care Team (Late Contact Info) Description 07/06/2025 10:40 AM EDT Office Visit Pav CC Head, Neck & Respiratory 800 [facility], 2nd [place] [address] Nikolai Naranjo MD 800 [facility] [address] [place] [address] documented as of this encounter Visit Diagnoses Not on filedocumented in this encounter Additional Health Concerns Assessment Noted Time A fall risk assessment has been complete d for the patient 02/23/2025 8:48 AM EDT A Body Mass Index follow-up plan has been documented for the patient 02/25/2025 5:11 PM EDT documented as of this encounter Care Teams Jackhammer Operator Relationship Specialty Start Date End Date Casa Phillips MD [address] [place] [address] PCP - General 02/22/25 Forrest Nickerson APRN [address] [place] [address] 03/06/23 documented as of this encounter
--- OUTSIDE RECORDS SUMMARY | 2025-04-27 08:43 | XMS_ITS | Encounter Summary ---
Author Organization [facility] Address [address] [place] [address] Care Team Providers Care Stemming Machine Operator Name Role Phone Demetrio Nickersonann Theresa PIPE AND TEST SUPERVISOR Unavailable [phone] Casa Phillips MD Primary Care Provider [phone] Encounter Details Date Type Department Care Team [...] Pav CC Head, Neck & Respiratory 800 [facility], 2nd [place] [address] Nikolai Naranjo MD 800 [facility] Lorin [address]ila [address] [place] [address] documented as of this encounter Visit Diagnoses Not on filedocumented in this encounter Additional Health Concerns Assessment Noted Time A fall risk assessment has been complete d for the patient 02/23/2025 8:48 AM EDT A Body Mass Index follow-up plan has been documented for the patient 02/25/2025 5:11 PM EDT documented as of this encounter Care Teams Stemming Machine Operator Relationship Specialty Start Date End Date Casa Phillips MD [address] [place] [address] PCP - General 02/22/25 Forrest Nickerson APRN [address] [place] [address] 03/06/23 documented as of this encounter
[2025-04-27] MEDS: ONDANSETRON 4MG ODT 16 MG (08:58)
[2025-04-27] MEDS: VITAMIN B-12 1,000 MCG 1ML VIAL 1000 MCG (08:58)
[2025-04-27] MEDS: PROCHLORPERAZINE 10MG TABLET 10 MG PO (08:58)
[2025-04-27] MEDS: SODIUM CHLORIDE 0.9% IV ×2 (09:41→10:00)
[2025-04-27] MEDS: CARBOPLATIN IV (09:41)
[2025-04-27 09:45] VITALS: BP 148/74; PULSE 71; RESP 18; TEMP 36.6; O2SAT 98
[2025-04-27 09:49] LABS: Iron 49 ug/dL (49-181)
[2025-04-27 09:58] LABS: Total Iron Binding Capacity 292 ug/dL (261-462)
[2025-04-27] MEDS: PEMETREXED DISODIUM IV (10:00)
[2025-04-27 10:06] LABS: Ferritin 483 ng/ml (17.9-464)
[2025-04-27 10:15] VITALS: BP 142/62; PULSE 74
[2025-04-27 10:30] VITALS: BP 130/59; PULSE 72
[2025-04-27 10:41] VITALS: BP 121/65; PULSE 73
[2025-04-27] MEDS: SODIUM CHLORIDE 0.9% 100ML BAG 100 ML IV (10:57)
== END 2025-04-27 10:50 | disposition home or self-care (01) ==
LOC: INF 08:38
PROVIDERS: PCP Family Medicine; Visit Provider Internal Medicine Medical Oncology
DX: C34.12 Malignant neoplasm of upper lobe, left bronchus or lung (principal); R11.2 Nausea with vomiting, unspecified; Z51.11 Encounter for antineoplastic chemotherapy
CPT/HCPCS: 82728; 83540; 83550; 96413; 96417; J3420; J7050; J9045; J9305; Q0162; Q0164

== ENCOUNTER 2025-05-07 15:52 | Outpatient (CLI) | payer MEDICARE, SELFPAY ==
--- OUTSIDE RECORDS SUMMARY | 2025-03-29 09:43 | XMS_ITS | Encounter Summary ---
Author Organization [facility] Address [address] [place] [address] Care Team Providers Care Tractor Mechanic Apprentice Name Role Phone Forrest Nickerson GAS LEAK INSPECTOR Unavailable [phone] Casa Phillips MD Primary Care Provider [phone] Reason for Visit * Auth/Cert (Routine) Specialty Diagnoses / Procedures Referred By Contac t Referred To Contact Diagnoses Non-small cell cancer of left lung (CMS/HCC) Non-small cell cancer of left lung Procedures IN THORACOSCOPY SURG LOBECTOMY LEFT VATS LOBECTOMY Ирина Lopez MD [address] [address] Phone: tel: fax: [facility] [address] [place] [address] Phone: tel: Referral ID Status Reason Start Date Expiration Date Visits Re quested Visits Authorized [id number] 1 1 Encounter Details Date Type Department Care Team (Latest Contact Info) Description 03/29/2025 9:43 AM EDT - 04/04/2025 12:18 PM EDT Hospital Encounter [facility] [address] [place] [id number] Ирина Lopez MD [address] [address] Non-small cell cancer of left lung (CMS/HCC) Discharge Disposition: Home or Self Care Social History Tobacco Use Types Packs/Day Years Used Date Smoking Tobacco: Every Day Cigars Started: 1956 Smokeless Tobacco: Never Alcohol Use Standard Drinks/Week Comments Yes 14 (1 standard drink = 0.6 oz pu re alcohol) 2 oz crown royal daily Humiliation, Afraid, Rape, and Kick questionnair e Answer Date Recorded Within the last year, have y ou been afraid of your partner or ex-partner? No 03/31/2025 Within the last year, have y ou been humiliated or emotionally abused in other ways by your partner or ex-partner? No Within the last year, have y ou been kicked, hit, slapped, or otherwise physically hurt by your partner or ex-partner? No 03/31/2025 Within the last year, have y ou been raped or forced to have any kind of sexual activity by your partner or ex-partner? No 03/31/2025 Hunger Vital Sign Answer Date Recorded Within the past 12 months, y ou worried that your food would run out before you got the money to buy more. Never true 03/31/20 25 Within the past 12 months, t he food you bought just didn't last and you didn't have money to get more. Never true 03/31/2025 PRAPARE - Transportation Answer Date Re corded In the past 12 months, has l ack of transportation kept you from medical appointments or from getting medications? No 03/14 In the past 12 months, has l ack of transportation kept you from meetings, work, or from getting things needed for daily living? No 03/31/2025 Housing Stability Vital Sign Answer Melvin e Recorded In the last 12 months, was t here a time when you were not able to pay the mortgage or rent on time? No 03/31/2025 Number of Times Moved in the Last Year Not on fi le 03/31/2025 At any time in the past 12 m [facility], were you homeless or living in a snf (including now)? No 03/31/2025 Utilities Answer Date Recorded In the past 12 months has th e electric, gas, oil, or water [employer] threatened to shut off services in your home? No 03/31/2025 Sex and Gender Information Value Date Recorded Sex Assigned at Male 01/28/2025 11:17 AM EDT Legal Sex Male 8:02 PM EDT Gender Identity Male 01/28/2025 11:17 AM EDT Sexual Orientation Not on file documented as of this encounter Last Filed Vital Signs Vital Sign Reading Time Taken Comments Blood Pressure 123/46 04/04/2025 7:57 AM EDT Pulse 78 04/04/2025 7:57 AM EDT Temperature 36.9 C (98.5 F) 04/04/2025 7:57 AM EDT Respiratory Rate 15 04/04/2025 7:57 AM EDT Oxygen Saturation 96% 04/04/2025 7:57 AM EDT Inhaled Oxygen Concentration - - Weight 67.3 kg (148 lb 5.9 oz) 04/04/2025 5:38 A M EDT Height 177.8 cm (5' 10 ) 03/30/2025 1:25 PM EDT Body Mass Index 21.29 03/30/2025 1:25 PM EDT documented in this encounter Functional Status * Calculated C-SSRS Risk Score (Lifetime/Recent) Answer Date of Assessment Author No Risk Indicated 04/04/2025 8:00 AM EDT Carmella Iniguez RN * Question Answer Date of Assessment Author 1. Wish to be (Past 1 Month) No 025 8:00 AM EDT Carmella Iniguez RN 2. Non-Specific Active Suici yesica Thoughts (Past 1 Month) No 04/04/2025 8:00 AM EDT Raysa Iniguez RN 6. Suicidal Behavior (Lifetime) No 8:00 AM EDT Carmella Iniguez RN documented as of this encounter Discharge Instructions * Discharge Instructions* Everett Marie DO - 04/04/2025 9:15 AM EDT Medications: - You should take Tylenol and/or ibuprofen every 6 hours as needed for mild - moderate pain. - You have been prescribed pain medications to be taken as needed for severe pain. - You should take a stool softener prescribed as long as you are taking narcotics. - You may resume your previous medications unless otherwise instructed. Nutrition: - You may continue your regular diet as tolerated Activity: - Walking and climbing stairs is ok and encouraged. You should refrain from any strenuous activity/exercise until your follow up appointment. - No lifting anything >10lbs for the next 2 weeks - You may not drive for 48 hours after surgery, or while taking narcotics Dressing: - A special skin glue is used to close and cover your incision. Do not pick it off, it will fall ofon its own after approximately 2 weeks. The glue is waterproof but you should not soak your incision or take a tub bath for 2 weeks. - You should try to keep your incisions as clean and dry as possible - You may shower. Let the soapy water run over your incisions. Do not scrub at your incisions. After you shower, pat your incisions dry with a clean towel. - Do NOT soak your incisions, or take a tub bath for 2 weeks. - Chest tube dressing may be removed 48 hours after chest tube removal - remove dressing on 04/05 - If fluid is draining from chest tube site, you may cover with gauze and tape. If no fluid is draining, a dressing is not needed. - Stitches will be removed at follow up appointment. Potential Issues: - It is normal to have some pain and soreness, especially around the incisions - A small amount of clear drainage from the incision may be expected, call the office if the drainage becomes bloody, purulent (pus), or foul-smelling - Call the office if you start to have increased redness, drainage, swelling, or increased pain around your incision - Call the office if you have a fever greater than 101 F - Call the office if you have severe abdominal discomfort, nausea and vomiting, or feeling unwell Follow Up: - You will be contacted by the clinic for a follow up appointment with Dr. Lopez on 04/20/2025 - Contact the [facility] team via: - For non-emergent questions/concerns: Clinic discharge # - For urgent questions/concerns: [facility] hotline: , option 4 - ask for the thoracic surgeon gas pumping station supervisor. documented in this encounter Medications at Time of Discharge aspirin 81 MG EC tablet Take 1 tablet by mouth daily. clopidogrel (Plavix) 75 MG tablet Take 1 tablet by mouth daily. metFORMIN (Glucophage) 1000 MG tablet Take 1 tablet by mouth 2 times a day. 12/07/2024 methocarbamol (Robaxin) 500 MG tablet Take 1 tablet by mouth every 6 hours for 14 days. 56 tablet 04/04/2025 oxyCODONE (Roxicodone) 5 MG immediate release tablet Take 1 tablet by mouth every 6 hours as needed for moderate pain for up to 15 doses. 15 tablet 04/04/2025 polyethylene glycol (Miralax) 17 g packet Take 17 g by mouth daily. 30 packet 04/04/2025 rosuvastatin (Crestor) 20 MG tablet Take 1 tablet by mouth daily. acetaminophen (Tylenol) 500 MG tablet Take 2 tablets by mouth every 6 hours for 14 days. 112 tablet 04/04/2025 04/18/2025 senna-docusate (Betty-Colace) 8.6-50 MG tablet Take 2 tablets by mouth 2 times a day for 14 days. 56 tablet 04/04/2025 04/18/2025 tamsulosin (Flomax) 0.4 MG 24 hr capsule Take 1 capsule by mouth daily. 30 capsule 04/04/2025 05/04/2025 documented as of this encounter Miscellaneous Notes * Chester Lyons RN - 04/04/2025 10:30 AM EDT Images from the original note were not included. [id number] Surgery for Lung Cancer Surgery can be used to both diagnose and treat lung cancer. Surgery is often used to treat the typeof lung cancer called non-small cell lung cancer. In most cases, surgery is used if the cancer is found in an early stage, which means it's small and hasn't spread beyond the lung. You will need to prepare for lung surgery. Work with your healthcare provider to learn more about what to expect before, during, and after surgery. Mediastinoscopy A mediastinoscopy is used to look at the space between the lungs and under the breastbone (sternum). It might be done to take out a tiny piece of tissue, called a sample. This process is called a biopsy. The sample is then used to figure out the extent (stage) of the cancer. The procedure is done in an operating room with general anesthesia. This means medicine will be used to put you into a deepsleep and prevent pain during the procedure. During this procedure, the healthcare provider puts a scope through a small cut (incision) made at the top of the sternum. The scope is a long, thin, lighted tube. It's slid into the mediastinal space. This is the space between your lungs and behind your breastbone. Your healthcare provider can seelymph nodes and other tissues in this area through the scope. Lymph nodes may be removed through the scope so they can be tested for cancer. Sometimes the swollen nodes are on one side of this mediastinal space. If so, the incision for the scope may be made on the side of your sternum, between two ribs. If no cancer is found in the lymph nodes, you may need more surgery (see below). If cancer has spread to the lymph nodes, more surgery isn't usually done. This is because the chance of curing the cancer with surgery is low. This decision is based partly on which lymph nodes the cancer has spread to. It's also based on how much of the healthy lung must be taken out to remove all of the cancer. Lymph nodes may be removed. Surgery The type of surgery done to treat lung cancer depends on the size of the cancer and where it is within the lung. The goal of surgery is to remove all of the cancer and the nearby lymph nodes. This often means part or all of the lung is taken out. The lungs are made of sections or lobes. The right lung has three lobes, and the left lung has two. These are the types of lung surgeries used to treat cancer: ? Segmentectomy or wedge resection. These surgeries remove only part of the lobe with the tumor carolyn small edge (margin) of healthy tissue around it. The difference between the two surgeries is morelung tissue and lymph nodes are removed with a segmentectomy. ? Lobectomy. Surgery is done to remove an entire lobe of the lung. This is the preferred type of surgery for lung cancer, even if the tumor is small. ? Pneumonectomy. This surgery removes the whole lung. It might be needed if the tumor is close to the center of the chest. Surgery may remove all or part of a lung. If the cancer is found in an early stage, when it's small and hasn't spread, surgery may cure it. Your healthcare provider will consider the tumor?s size and where it is when deciding how much of thelung to remove. Your overall lung health will also be taken into account. In some cases, a thoracoscopy procedure called video-assisted thoracic surgery (VATS) may be a choice. It's typically used only for early-stage lung cancer near the outside of the lung. With VATS, the lung tissue is removed through several small cuts (incisions) using special tools and a thin, lighted tube. The tube has a video camera at the end to let the healthcare provider see inside the chest. Less pain, a shorter hospital stay, and quicker healing are benefits of this type of surgery. ?Robotically-assisted thoracic surgery might be another choice. It's like VATS, but the surgeon sits at a computer control panel and moves robotic arms to do the surgery. With either of these, it's important to have surgery done by someone who has a lot of experience with these special methods. You will get general anesthesia before surgery. This means medicine will be used to put you into a deep sleep and prevent pain. You'll also be connected to a machine that breathes for you during surgery. Risks and possible complications Lung surgery has certain risks and possible complications. These include: ? Risks of general anesthesia ? Infection ? Bleeding ? Air leaking through the lung wall ? Pneumonia ? Heart problems ? Blood clots in the legs or lungs ? Shortness of breath (especially in people with other lung problems) ?Talk with your healthcare providers about what problems to look for and when to call them. Make sure you know what number to call with questions or problems, including after office hours, on weekends, and on holidays. Last Reviewed Date: 2023 00:00:00 ?? [id number] [employer]. All rights reserved. This information is not intended as a substitute for professional medical care. Always follow your healthcare professional's instructions. * Neida Garland - Chester Cuevas RN - 04/04/2025 10:29 AM EDT Images from the original note were not included. [id number] Thoracotomy Thoracotomy is surgery used to diagnose and treat certain lung problems. The surgeon makes a cut (incision) through the skin, usually between the ribs, or may remove a rib. They then cut through the lining around the lungs. They may take a sample of lung tissue (biopsy). Or the surgeon may take outa tumor or mass, or part or all of a lung. Sometimes surgeons use a thoracotomy to operate on the esophagus or for certain heart procedures. Possible incision site for thoracotomy. Getting ready for your surgery ? Ask your health care team any questions you have about the procedure. ? Have blood tests or other tests that your health care provider suggests. ? Ask your provider about donating your own blood before the procedure. ? If you smoke, use smokeless tobacco, electronic cigarettes, or vaping devices, stop right away. Let your provider know if you drink large amounts of alcohol or use recreational drugs. ? Tell your healthcare team about any medicines you're taking, including aspirin. Ask if you shouldstop taking them. Also mention any vitamins, herbs, or other supplements you take. ? Also tell your care team about any allergies that you have, including medicines, foods, tape, andlatex. ? Follow any directions you are given for not eating or drinking before surgery. The surgery ? The anesthesiologist can discuss the types of medicines you'll be given during the surgery and answer your questions. After you're asleep, you're put in a comfortable position on your side and covered with sterile drapes. ? The lung to be operated on is deflated. A breathing tube helps your other lung continue working. ? Your surgeon makes an incision across your side. They separate your rib cage or remove a rib to reach your lungs. The surgeon can look at the deflated lung and do the needed surgery. In some cases,the surgeon may remove part or all of the lung and nearby lymph nodes. ? When the procedure is finished, the surgeon puts one or more tubes in your chest for a short time. These are to drain fluid and air. ? The surgeon then repairs the rib cage. They close the muscle and skin with stitches or zaria. ? You will wake up in a recovery area. Or you may be in the ICU (intensive care unit). Your breathing tube is generally taken out before or just after you wake up. Risks and possible complications The risks of having a thoracotomy include: ? The risks of general anesthesia. ? Infections. This could be in the wound, in the lungs (pneumonia), or in the bloodstream. ? Too much bleeding. This might require a blood transfusion. ? An air leak through the lung wall. This requires a longer hospital stay or another operation. ? A collapsed lung that doesn't get better. ? Delirium. ? A blood clot in a blood vessel in the leg (deep vein thrombosis) with potential for blood clots in the lung (pulmonary embolism). ? Pain. In some cases, pain may continue beyond the normal recovery period. ? . Last Reviewed Date: 2024 00:00:00 ?? [id number] [employer]. All rights reserved. This information is not intended as a substitute for professional medical care. Always follow your healthcare professional's instructions. * Neida Garland - Chester Cuevas RN - 04/04/2025 10:29 AM EDT Images from the original note were not included. [id number] Lung Cancer: Video-Assisted and Robotic-Assisted Thoracic Surgery If you have lung cancer, your surgeon may advise you to have surgery to treat it. This is called a lung resection. During the surgery, the surgeon removes part or all of your lung. Having surgery can be scary. But you may be able to have surgery that is minimally invasive. This type of surgery uses several small incisions between the ribs instead of 1 big incision (open surgery). And the surgeon does not have to separate the ribs like with open surgery. The surgeon puts smalltools and a tiny camera into the small incisions. There are 2 types of minimally invasive surgery used for lung cancer. They are called video-assisted thoracic surgery (VATS) and robotic-assisted thoracic surgery (RATS). What is video-assisted thoracic surgery (VATS)? Video-assisted thoracic surgery (VATS) is a way to do surgery with only a few small cuts. The surgeon inserts a small tube (thoracoscope) with a tiny camera at the end that sends an image to a screen. The surgeon uses this video feed to guide special tools. You will have general anesthesia, so you are asleep and don?t feel pain. A breathing tube is placed in your airway to help you breathe. The surgeon may remove lung tissue, lymph nodes, and fluid. You may have a tube in your chest after surgery. This is to drain air and fluid. It is usually taken out before you go home. You will likely stayin the hospital for a few days. Benefits of VATS If you have VATS to treat your lung cancer, here's what you can expect: ? Less pain. Smaller cuts mean you will hurt less after surgery. ? [place] hospital stay. You can likely go home in a few days. ? Faster recovery. You can get back to your normal life sooner than with open surgery. ? Less scarring. The small cuts leave smaller scars. What is robotic -assisted thoracic surgery (RATS)? Robotic-assisted thoracic surgery (RATS) also uses small cuts. Small tools and a camera are placed into the small incisions. The robotic tools are controlled by the surgeon through a special device. The closer camera view and the special robotic tools can help the surgeon be more precise. This can be helpful for more complex surgery. You will have general anesthesia, so you are asleep and don?t feel pain during the surgery. A breathing tube is placed in your airway to help you breathe. The surgeon may remove lung tissue, lymph nodes, and fluid. You may have a tube in your chest after surgery.This is to drain air and fluid. It is usually taken out before you go home. You will likely stay inthe hospital for a few days. Benefits of RATS If you have RATS to treat your lung cancer, here's what you can expect: ? Better accuracy. The robotic surgery system helps the surgeon be more exact. That can lead to better results. ? Less pain. You will have less pain after surgery because the cuts are small. ? [place] hospital stay. You can likely go home in a few days. ? Less scarring. The small cuts leave smaller scars. Who can have VATS or RATS? You may be able to have VATS or RATS depending on: ? The type, size, and location of the cancer ? Your overall health ? Your treatment history Choose a surgeon who has a lot of experience in the type of surgery you need. Make sure the [facility] have experience in VATS or RATS. Not all hospitals have the robotic equipment needed for RATS. Possible complications Both VATS and RATS work well for treating some people with lung cancer. But any surgery can have complications. Talk with your surgeon about the risks of your treatment and what symptoms you should report. Complications may include: ? Infection ? Blood clots ? Bleeding ? Collapsed lung ? Reaction to anesthesia ? Abnormal heart rhythm Recovery after surgery After VATS or RATS, you'll get instructions for how to take care of yourself. You will learn about: ? Managing pain. Your provider will prescribe or suggest pain medicines and methods to help reduce pain. ? Breathing exercises. You?ll learn breathing exercises. These are to help your lungs heal and prevent problems like pneumonia. ? Limits on activities. You'll need to not do strenuous movements or heavy lifting for a few weeks.Your healthcare team will tell you when you can drive, bathe, and do more activity. ? Incision care. You?ll learn how to take care of any incisions and dressings at home. ? Follow-up appointments. You'll see your surgeon for regular checkups after your surgery. These are to make sure you?re healing well. Your provider will watch for any signs the cancer might come back. Your healthcare team is there to help you. Ask any questions you have and talk about your concerns.This will help you make the best decision for your situation. With the right information and care, you can work together to fight lung cancer and move toward a healthier future. Last Reviewed Date: 2023 00:00:00 ?? [id number] [employer]. All rights reserved. This information is not intended as a substitute for professional medical care. Always follow your healthcare professional's instructions. * Neida SandhuALEXIS - Chester Cuevas RN - 04/04/2025 10:24 AM EDT Images from the original note were not included. [id number] Tamsulosin Brand Name(s): Flomax??, Su?? (as a combination product containing Dutasteride, Tamsulosin); also available generically ?? This branded product is no longer on the market. Generic alternatives may be available. WHY is this medicine prescribed? Tamsulosin is used in men to treat the symptoms of an enlarged prostate (benign prostatic hyperplasia or BPH) which include difficulty urinating (hesitation, dribbling, weak stream, and incomplete bladder emptying), painful urination, and urinary frequency and urgency. Tamsulosin is in a class of medications called alpha blockers. It works by relaxing the muscles in the prostate and bladder so that urine can flow easily. HOW should this medicine be used? Tamsulosin comes as a capsule to take by mouth. It is usually taken once a day. Take tamsulosin 30 minutes after the same meal each day. Follow the directions on your prescription label carefully, and ask your doctor or pharmacist to explain any part you do not understand. Take tamsulosin exactly as directed. Do not take more or less of it or take it more often than prescribed by your doctor. Swallow tamsulosin capsules whole; do not split, chew, crush, or open them. Your doctor will probably start you on a low dose of tamsulosin and may increase your dose after 2 to 4 weeks. Tamsulosin may help control your condition, but it will not cure it. Continue to take tamsulosin even if you feel well. Do not stop taking tamsulosin without talking to your doctor. Are there OTHER USES for this medicine? This medication may be prescribed for other uses; ask your doctor or pharmacist for more information. What SPECIAL PRECAUTIONS should I follow? Before taking tamsulosin, ? tell your doctor and pharmacist if you are allergic to tamsulosin, sulfa medications, or any other medications. ? tell your doctor and pharmacist what prescription and nonprescription medications, vitamins, nutritional supplements and herbal products you are taking or plan to take while taking tamsulosin. Yourdoctor may need to change the doses of your medications or monitor you more carefully for side effects. ? the following nonprescription product may interact with tamsulosin: cimetidine (Tagamet). Be sureto let your doctor and pharmacist know that you are taking this medication before you start taking tamsulosin. Do not start this medication while taking tamsulosin without discussing with your healthcare provider. ? tell your doctor if you have or have ever had prostate cancer or liver or kidney disease. ? you should know that tamsulosin is only for use in men. Women should not take tamsulosin, especially if they are or could become or are breast-feeding. If a woman takes tamsulosin, she should call her doctor. ? if you are having surgery, including dental surgery, tell the doctor or dentist that you are taking tamsulosin. If you need to have eye surgery at any time during or after your treatment, be sure to tell your doctor that you are taking or have taken tamsulosin. ? you should know that this medication may make you drowsy or dizzy. Do not drive a car, operate machinery, or perform dangerous tasks until you know how this medication affects you. ? you should know that tamsulosin may cause dizziness, lightheadedness, a spinning sensation, and fainting, especially when you get up too quickly from a lying position. This is more common when you first start taking tamsulosin or after your dose is increased. To help avoid this problem, get out of bed slowly, resting your feet on the floor for a few minutes before standing up. Call your doctor if these symptoms are severe or do not go away. What should I do IF I FORGET to take a dose? Take the missed dose as soon as you remember it. However, if it is almost time for the next dose, skip the missed dose and continue your regular dosing schedule. Do not take a double dose to make up for a missed one. If you interrupt your treatment for several days or longer, call your doctor before restarting the medication, especially if you take more than one capsule of tamsulosin a day. What SIDE EFFECTS can this medicine cause? What should I know about STORAGE and DISPOSAL of this medication? Keep this medication in the container it came in, tightly closed, and out of reach of children. Store it at room temperature and away from excess heat and moisture (not in the bathroom). It is important to keep all medication out of sight and reach of children as many containers (such as weekly pill minders and those for eye drops, creams, patches, and inhalers) are not child-resistant and young children can open them easily. To protect young children from poisoning, always lock safety caps and immediately place the medication in a safe location - one that is up and away and out of their sight and reach. https://www.[employer].org Unneeded medications should be disposed of in special ways to ensure that pets, children, and otherpeople cannot consume them. However, you should not flush this medication down the toilet. Instead,the best way to dispose of your medication is through a medicine take-back program. Talk to your pharmacist or contact your local garbage/recycling department to learn about take-back programs in your community. See the FDA's Safe Disposal of Medicines website (https://goo.gl/c4Rm4p) for more information if you do not have access to a take-back program. What should I do in case of OVERDOSE? In case of overdose, call the poison control helpline at . Information is also available online at https://www.poisonhelp.org/help. If the victim has collapsed, had a seizure, has trouble breathing, or can't be awakened, immediately call emergency services at [phone]. Symptoms of overdose may include: ? dizziness ? fainting ? blurred vision ? upset stomach ? headache What OTHER INFORMATION should I know? Keep all appointments with your doctor. Do not let anyone else take your medication. Ask your pharmacist any questions you have about refilling your prescription. It is important for you to keep a written list of all of the prescription and nonprescription (nccp-asj-wzhgbzg) medicines you are taking, as well as any products such as vitamins, minerals, or otherdietary supplements. You should bring this list with you each time you visit a doctor or if you areadmitted to a hospital. It is also important information to carry with you in case of emergencies. This report on medications is for your information only, and is not considered individual patient advice. Because of the changing nature of drug information, please consult your physician or pharmacist about specific clinical use. [employer] [employer] represents that the information provided hereunder was formulated with a reasonable standard of care, and in conformity with professional standards in the field. [employer] [place] [employer] makes no representations or warranties, express or implied, including, but not limited to, any implied warranty of merchantability and/or fitness for a particular purpose, with respect to such information and specifically disclaims all such warranties. Users are advised that decisions regarding drug therapy are complex medical decisions requiring the independent, informed decision of an appropriate health clinical care leader, and the information is provided for informational purposes only. The entire monograph for a drug should be reviewed for a thorough understanding of the drug's actions, uses and side effects. [employer] does not endorse or recommend the use of any drug.The information is not a substitute for medical care. AHFS?? Patient Medication Information?. ?? Copyright, 2023. [employer]??, [address], [address], [place], [place]. All Rights Reserved. Duplication for commercial use must be authorized by [facility]. Selected Revisions: October 28, 2017. AHFS?? Patient Medication Information?. ?? Copyright, 2024 * Chester Lyons RN - 04/04/2025 10:24 AM EDT Images from the original note were not included. [id number] Senna Brand Name(s): Black Aidanght??, Ex-Lax??, Baca's Castoria??, Nature's Remedy??, Perdiem Overnight Relief??, Senexon??, Senna X-Prep??, Senokot??, Correctol 50 Plus?? (as a combination product containing Docusate, Sennosides), Ex-Lax Gentle Strength?? (as a combination product containing Docusate, Sennosides), Gentlax S?? (as a combination product containing Docusate, Sennosides), Betty-Colace?? (as a combination product containing Docusate, Sennosides), Senokot S?? (as a combination product containing Docusate, Sennosides); also available generically sennosides ?? This branded product is no longer on the market. Generic alternatives may be available. WHY is this medicine prescribed? Senna is used on a short-term basis to treat constipation. It also is used to empty the bowels before surgery and certain medical procedures. Senna is in a class of medications called stimulant laxatives. It works by increasing activity of the intestines to cause a bowel movement. HOW should this medicine be used? Senna comes as a liquid, powder, granules, chewable pieces, and tablets to take by mouth. It is maybe taken once or twice daily. Senna normally causes a bowel movement within 6 to 12 hours, so it may be taken at bedtime to produce a bowel movement the next day. Do not take senna for more than 1 week without talking to your doctor. Follow the directions on your package or prescription label elizabethkristy packradha, and ask your doctor or pharmacist to explain any part you do not understand. Take senna exactly as directed. Frequent or continued use of senna may make you dependent on laxatives and cause yourbowels to lose their normal activity. If you do not have a regular bowel movement after taking senna, do not take any more medication and talk to your doctor. If you are taking certain senna products (Ex-Lax?? regular ormaximum strength tablets or Perdiem Overnight Relief), swallow the pills whole with a glass of water; do not split, chew, or crush them. Are there OTHER USES for this medicine? This medication may be prescribed for other uses; ask your doctor or pharmacist for more information. What SPECIAL PRECAUTIONS should I follow? Before taking senna, ? tell your doctor and pharmacist if you are allergic to senna, any other medications, or any of the ingredients in these senna products. Ask your pharmacist for a list of the ingredients. ? tell your doctor and pharmacist what prescription and nonprescription medications, vitamins, nutritional supplements, and herbal products you are taking or plan to take while taking senna. Your doctor may need to change the doses of your medications or monitor you carefully for side effects.. ? take certain senna products (Ex-Lax??, Perdiem Overnight Relief) at least 2 or more hours before or after taking other medications by mouth; some senna products may affect how other medications work. ? the following nonprescription product may interact with senna: mineral oil. Be sure to let your doctor and pharmacist know that you are taking this medication before you start taking senna. Do not start this medication while taking senna without discussing with your healthcare provider. ? tell your doctor if you have stomach pain, nausea, vomiting, or a sudden change in bowel movements lasting more than 2 weeks. ? tell your doctor if you are , plan to become , or are breast- feeding. If you become while taking senna, call your doctor. ? talk to your doctor about the risks and benefits of taking senna if you are 65 years of age or older. Older adults should not usually take senna products over a long period of time because they arenot as safe as other medications that can be used to treat the same condition. What SPECIAL DIETARY instructions should I follow? A regular diet and exercise program is important for regular bowel function. Eat a high-fiber diet and drink plenty of liquids (eight glasses) each day as recommended by your doctor. What should I do IF I FORGET to take a dose? This medication usually is taken as needed. If your doctor has told you to take senna regularly, take the missed dose as soon as you remember it. However, if it is almost time for the next dose, skipthe missed dose and continue your regular dosing schedule. Do not take a double dose to make up fora missed one. What SIDE EFFECTS can this medicine cause? Some side effects can be serious. If you experience this symptom, stop taking senna and call your doctor immediately: ? rectal bleeding Senna may cause other side effects. Call your doctor if you have any unusual problems while taking this medication. If you experience a serious side effect, you or your doctor may send a report to the Food and Drug Administration's (FDA) MedWatch Adverse Event Reporting program online (https://www.fda.gov/Safety/MedWatch) or by phone ( ). What should I know about STORAGE and DISPOSAL of this medication? Keep this medication in the container it came in, tightly closed, and out of reach of children. Store it at room temperature and away from excess heat and moisture (not in the bathroom). It is important to keep all medication out of sight and reach of children as many containers (such as weekly pill minders and those for eye drops, creams, patches, and inhalers) are not child-resistant and young children can open them easily. To protect young children from poisoning, always lock safety caps and immediately place the medication in a safe location - one that is up and away and out of their sight and reach. https://www.[employer].org Unneeded medications should be disposed of in special ways to ensure that pets, children, and otherpeople cannot consume them. However, you should not flush this medication down the toilet. Instead,the best way to dispose of your medication is through a medicine take-back program. Talk to your pharmacist or contact your local garbage/recycling department to learn about take-back programs in your community. See the FDA's Safe Disposal of Medicines website (https://goo.gl/c4Rm4p) for more information if you do not have access to a take-back program. What should I do in case of OVERDOSE? In case of overdose, call the poison control helpline at . Information is also available online at https://www.poisonhelp.org/help. If the victim has collapsed, had a seizure, has trouble breathing, or can't be awakened, immediately call emergency services at [phone]. What OTHER INFORMATION should I know? Ask your pharmacist any questions you have about senna. It is important for you to keep a written list of all of the prescription and nonprescription (ntrx-qps-rypzazo) medicines you are taking, as well as any products such as vitamins, minerals, or otherdietary supplements. You should bring this list with you each time you visit a doctor or if you areadmitted to a hospital. It is also important information to carry with you in case of emergencies. This report on medications is for your information only, and is not considered individual patient advice. Because of the changing nature of drug information, please consult your physician or pharmacist about specific clinical use. [employer] [employer] represents that the information provided hereunder was formulated with a reasonable standard of care, and in conformity with professional standards in the field. [employer] [employer] makes no representations or warranties, express or implied, including, but not limited to, any implied warranty of merchantability and/or fitness for a particular purpose, with respect to such information and specifically disclaims all such warranties. Users are advised that decisions regarding drug therapy are complex medical decisions requiring the independent, informed decision of an appropriate health clinical care leader, and the information is provided for informational purposes only. The entire monograph for a drug should be reviewed for a thorough understanding of the drug's actions, uses and side effects. [employer] [employer] does not endorse or recommend the use of any drug.The information is not a substitute for medical care. AHFS?? Patient Medication Information?. ?? Copyright, 2023. [employer]??, [address], [address], [place], [place]. All Rights Reserved. Duplication for commercial use must be authorized by [facility]. Selected Revisions: April 02, 2024. AHFS?? Patient Medication Information?. ?? Copyright, 2024 * Neida Garland - Chester Cuevas RN - 04/04/2025 10:24 AM EDT Images from the original note were not included. [id number] Polyethylene Glycol 3350 Brand Name(s): MiraLax?? PEG 3350 ?? This branded product is no longer on the market. Generic alternatives may be available. WHY is this medicine prescribed? Polyethylene glycol 3350 is used to treat occasional constipation. Polyethylene glycol 3350 is in aclass of medications called osmotic laxatives. It works by causing water to be retained with the stool. This increases the number of bowel movements and softens the stool so it is easier to pass. HOW should this medicine be used? Polyethylene glycol 3350 comes as a powder to be mixed with a liquid and taken by mouth. It is usually taken once a day as needed for up to 2 weeks. Follow the directions on your prescription label carefully, and ask your doctor or pharmacist to explain any part you do not understand. Take polyethylene glycol 3350 exactly as directed. Polyethylene glycol 3350 may be habit-forming. Do not take a larger dose, take it more often, or take it for a longer period of time than your doctor tells you to. It may take 2 to 4 days for polyethylene glycol 3350 to produce a bowel movement. To use the powder, follow these steps: ? If you are using polyethylene glycol 3350 from a bottle, use the measuring line on the bottle capto measure a single dose (about 1 heaping tablespoon). If you are using polyethylene glycol 3350 packets, each packet contains a single dose. ? Pour the powder into a cup containing 8 ounces (240 milliliters) of water, juice, soda, coffee, or tea. ? Stir to dissolve the powder. ? Drink immediately. Are there OTHER USES for this medicine? This medication may be prescribed for other uses; ask your doctor or pharmacist for more information. What SPECIAL PRECAUTIONS should I follow? Before taking polyethylene glycol 3350, ? tell your doctor and pharmacist if you are allergic to polyethylene glycol or any other medications. ? tell your doctor and pharmacist what prescription and nonprescription medications, vitamins, nutritional supplements, and herbal products you are taking. ? tell your doctor if you have or have ever had a bowel obstruction (blockage in the intestine) andif you have symptoms of bowel obstruction (upset stomach, vomiting, and stomach pain or bloating). ? tell your doctor if you are , plan to become , or are breast- feeding. If you become while taking polyethylene glycol 3350, call your doctor. What SPECIAL DIETARY instructions should I follow? Eat a well-balanced diet that includes fiber-rich foods, such as unprocessed bran, whole-grain bread, and fresh fruits and vegetables. Drink plenty of fluids and exercise regularly. What should I do IF I FORGET to take a dose? This medication is usually taken as needed. What SIDE EFFECTS can this medicine cause? Some side effects can be serious. The following symptoms are uncommon, but if you experience eitherof them, call your doctor immediately: ? diarrhea ? hives Polyethylene glycol 3350 may cause other side effects. Call your doctor if you have any unusual problems while taking this medication. If you experience a serious side effect, you or your doctor may send a report to the Food and Drug Administration's (FDA) MedWatch Adverse Event Reporting program online (https://www.fda.gov/Safety/MedWatch) or by phone ( ). What should I know about STORAGE and DISPOSAL of this medication? Keep this medication in the container it came in, tightly closed, and out of reach of children. Store it at room temperature and away from excess heat and moisture (not in the bathroom). Unneeded medications should be disposed of in special ways to ensure that pets, children, and otherpeople cannot consume them. However, you should not flush this medication down the toilet. Instead,the best way to dispose of your medication is through a medicine take-back program. Talk to your pharmacist or contact your local garbage/recycling department to learn about take-back programs in your community. See the FDA's Safe Disposal of Medicines website (https://goo.gl/c4Rm4p) for more information if you do not have access to a take-back program. It is important to keep all medication out of sight and reach of children as many containers (such as weekly pill minders and those for eye drops, creams, patches, and inhalers) are not child-resistant and young children can open them easily. To protect young children from poisoning, always lock safety caps and immediately place the medication in a safe location - one that is up and away and out of their sight and reach. https://www.[employer]andaway.org What should I do in case of OVERDOSE? In case of overdose, call the poison control helpline at . Information is also available online at https://www.poisonhelp.org/help. If the victim has collapsed, had a seizure, has trouble breathing, or can't be awakened, immediately call emergency services at [phone]. Symptoms of overdose may include: ? diarrhea ? thirst ? confusion ? seizure What OTHER INFORMATION should I know? Keep all appointments with your doctor. Do not let anyone else take your medication. Ask your pharmacist any questions you have about refilling your prescription. It is important for you to keep a written list of all of the prescription and nonprescription (veze-kcv-baraywj) medicines you are taking, as well as any products such as vitamins, minerals, or otherdietary supplements. You should bring this list with you each time you visit a doctor or if you areadmitted to a hospital. It is also important information to carry with you in case of emergencies. This report on medications is for your information only, and is not considered individual patient advice. Because of the changing nature of drug information, please consult your physician or pharmacist about specific clinical use. [employer] represents that the information provided hereunder was formulated with a reasonable standard of care, and in conformity with professional standards in the field. [employer] [employer] makes no representations or warranties, express or implied, including, but not limited to, any implied warranty of merchantability and/or fitness for a particular purpose, with respect to such information and specifically disclaims all such warranties. Users are advised that decisions regarding drug therapy are complex medical decisions requiring the independent, informed decision of an appropriate health clinical care leader, and the information is provided for informational purposes only. The entire monograph for a drug should be reviewed for a thorough understanding of the drug's actions, uses and side effects. [employer] does not endorse or recommend the use of any drug.The information is not a substitute for medical care. AHFS?? Patient Medication Information?. ?? Copyright, 2023. [employer]??, [address], [address], [place], [place]. All Rights Reserved. Duplication for commercial use must be authorized by [facility]. Selected Revisions: December 27, 2015. AHFS?? Patient Medication Information?. ?? Copyright, 2024 * Kaykaynatasha Chester Little RN - 04/04/2025 10:24 AM EDT 1087 Oxycodone Oral Tablet, Immediate Release Brand Names: Oxaydo, Roxicodone What is this medicine? Oxycodone (ck-i-ESQ-done) is an opioid pain reliever. It is used to treat moderate to severe pain. What should I tell my health care provider before I take this medicine? They need to know if you have any of these conditions: ? Blair's disease ? Brain tumor or head injury ? Personal or family history of drug abuse or addiction ? Heart disease ? Frequent alcohol use ? Kidney disease ? Liver disease ? Lung disease, asthma, or breathing problems ? Depression, anxiety, or other psychiatric disease ? Allergy or unusual reaction to oxycodone, acetaminophen or other pain relievers ? , trying to get , or How should I use this medicine? Take this medicine as prescribed by your doctor, and follow the directions on the prescription label. ? Take this medicine as prescribed by your doctor. Follow the directions on the prescription label. ? Do not take this medicine more often than directed. ? This medicine should be taken with a full glass of water. ? If it upsets your stomach, you may take it with food. You do not have to take this medicine with food. ? Do not crush, cut, chew, lick, wet, soak, or otherwise manipulate a tablet before taking. ? Do not share this medicine with others. This medicine is only for you. ? The pharmacy will give you a special medication guide each time you crop picker this medicine. ? Overdosage: Taking too much of this medicine can be deadly. Your doctor may prescribe another medicine with this medicine to treat an accidental overdose. If you think you have taken too much of this medicine, call 911 immediately. What if I miss a dose? If you miss a dose, you may take it as soon as you remember. If it is almost time for your next dose, take only that dose. Do not take double or extra doses. What may interact with this medicine? ? Alcohol ? Medicines for sleep, depression, anxiety, or psychiatric diseases ? Seizure medicines like gabapentin, pregabalin, phenytoin, or phenobarbital ? Other pain medicines like tramadol, hydrocodone, fentanyl, or morphine ? Muscle relaxers ? Certain nausea medicines like chlorpromazine or promethazine ? Cannabinoids like droperidol ? Certain antibiotics like erythromycin, clarithromycin, rifampin, ritonavir, voriconazole, or ketoconazole ? Allergy medicines like diphenhydramine This list may not describe all possible interactions. Give your health care provider a list of all the medicines, herbs, non-prescription drugs, or dietary supplements you use. Also tell them if you smoke, drink alcohol, or use illegal drugs. Some items may interact with your medicine. What should I watch for while using this medicine? ? Before you start taking this medicine, talk with your doctor about how long you should be on thismedicine. You should also talk to your doctor about other things you can do to treat pain, including other medicines or non-drug treatments like meditation or acupuncture. While taking this medicine,tell your doctor if your pain does not go away or gets worse or if you have a new or different typeof pain. ? It is possible you could become dependent on this medicine. The risk of dependence increases the longer you are on the medicine. Dependence is not addiction; however, if you have a personal or family history of addiction, you are at higher risk for becoming addicted to this medicine. Talk to yourdoctor if you are worried about dependence or addiction. ? If you take this medicine for a long time and suddenly stop taking this medicine, you may withdraw from this medicine. Withdrawal from this medicine may cause sweating, pain, diarrhea, anxiety, tremor, and other symptoms. Stopping the medicine slowly can reduce withdrawal symptoms. ? This medicine may cause dizziness or drowsiness, especially when you change doses or first start the medicine. Do not drive, use machinery, or do anything dangerous until you know how your body reacts to this medicine. ? This medicine causes constipation. Unless your doctor tells you not to, you should take a stool softener while on this medicine. Tell your doctor if you have not had a bowel movement in 3 or more days while on this medicine. ? This medicine can also cause dry mouth. Drinking water, chewing gum, or sucking on hard candy canhelp. It is important to keep regular dentist appointments. What side effects may I notice from receiving this medicine? Side effects that you should report to your doctor or health clinical care leader as soon as possible: ? allergic reactions like skin rash, itching or hives, swelling of the face, lips, or tongue ? breathing problems ? confusion ? craving for the medicine or withdrawal symptoms with a missed dose ? feeling faint or lightheaded, falls ? trouble passing urine or change in the amount of urine ? unusually weak or tired Side effects that usually do not require medical attention (report to your doctor or health clinical care leader if they continue or are bothersome): ? constipation ? dry mouth ? itching ? nausea, vomiting ? upset stomach This list may not describe all possible side effects. Call your doctor for medical advice about side effects. You may report side effects to FDA at 9-307-NPM-3395. Where should I keep my medicine? This medicine should be kept in a locked cabinet away from children and protected from theft. This medicine can be abused. Do not share this medicine with anyone. Selling or giving away this medicineis against the law. Store at room temperature (60-80??F) in a dry place that is protected from light. Do not save unused medicine that is no longer needed. Unused medicine should be taken to a proper disposal location. To find a disposal location, visit [employer]/[facility]/[place]. If you cannot take unused medicine to a proper location, you can mix the medicine with coffee grounds or duc litter and dispose of in the normal trash. Your doctor may also give you a special disposal pouch for this medicine. You can also flush the medicine down the toilet. * Neida Garland - Chester Cuevas RN - 04/04/2025 10:24 AM EDT Images from the original note were not included. [id number] Methocarbamol Brand Name(s): Robaxin??; also available generically ?? This branded product is no longer on the market. Generic alternatives may be available. WHY is this medicine prescribed? Methocarbamol is used with rest, physical therapy, and other measures to relax muscles and relieve pain and discomfort caused by strains, sprains, and other muscle injuries. Methocarbamol is in a class of medications called muscle relaxants. It works by slowing activity in the nervous system to allow the body to relax HOW should this medicine be used? Methocarbamol comes as a tablet to take by mouth. It usually is taken four times a day at first, then it may be changed to three to six times a day. Follow the directions on your prescription label carefully, and ask your doctor or pharmacist to explain any part you do not understand. Take methocarbamol exactly as directed. Do not take more or less of it or take it more often than prescribed by your doctor. Are there OTHER USES for this medicine? This medication may be prescribed for other uses. Ask your doctor or pharmacist for more information. What SPECIAL PRECAUTIONS should I follow? Before taking methocarbamol, ? tell your doctor and pharmacist if you are allergic to methocarbamol, any other medications or any of the ingredients in methocarbamol tablets. Ask your doctor or pharmacist for a list of the ingredients. ? tell your doctor and pharmacist what prescription and nonprescription medications, vitamins, nutritional supplements, and herbal products you are taking or plan to take while taking methocarbamol. Your doctor may need to change the doses of your medications or monitor you carefully for side effects. ? tell your doctor if you are , plan to become , or are breast- feeding. If you become while taking methocarbamol, call your doctor. ? talk to your doctor about the risks and benefits of taking methocarbamol if you are 65 years of age or older. Older adults should not usually take methocarbamol because it is not as safe or as effective as other medications that can be used to treat the same condition. ? you should know that this medication may make you drowsy. Do not drive a car or operate machineryuntil you know how methocarbamol affects you. ? talk to your doctor about the safe use of alcohol during your treatment with this medication. Alcohol can make the side effects of methocarbamol worse. What SPECIAL DIETARY instructions should I follow? Unless your doctor tells you otherwise, continue your normal diet. What should I do IF I FORGET to take a dose? Take the missed dose as soon as you remember it. However, if it is almost time for the next dose, skip the missed dose and continue your regular dosing schedule. Do not take a double dose to make up for a missed one. What SIDE EFFECTS can this medicine cause? If you experience either of the following symptoms, call your doctor immediately: ? rash ? itching Methocarbamol may cause other side effects. Call your doctor if you have any unusual problems whileyou are taking this medication. If you experience a serious side effect, you or your doctor may send a report to the Food and Drug Administration's (FDA) MedWatch Adverse Event Reporting program online (https://www.fda.gov/Safety/MedWatch) or by phone ( ). What should I know about STORAGE and DISPOSAL of this medication? Keep this medication in the container it came in, tightly closed, and out of reach of children. Store it at room temperature and away from excess heat and moisture (not in the bathroom). Unneeded medications should be disposed of in special ways to ensure that pets, children, and otherpeople cannot consume them. However, you should not flush this medication down the toilet. Instead,the best way to dispose of your medication is through a medicine take-back program. Talk to your pharmacist or contact your local garbage/recycling department to learn about take-back programs in your community. See the FDA's Safe Disposal of Medicines website (https://goo.gl/c4Rm4p) for more information if you do not have access to a take-back program. It is important to keep all medication out of sight and reach of children as many containers (such as weekly pill minders and those for eye drops, creams, patches, and inhalers) are not child-resistant and young children can open them easily. To protect young children from poisoning, always lock safety caps and immediately place the medication in a safe location - one that is up and away and out of their sight and reach. https://www.upandaway.org What should I do in case of OVERDOSE? In case of overdose, call the poison control helpline at . Information is also available online at https://www.poisonhelp.org/help. If the victim has collapsed, had a seizure, has trouble breathing, or can't be awakened, immediately call emergency services at 911. What OTHER INFORMATION should I know? Keep all appointments with your doctor. Do not let anyone else take your medication. Ask your pharmacist any questions you have about refilling your prescription. It is important for you to keep a written list of all of the prescription and nonprescription (erga-iic-cdaeymt) medicines you are taking, as well as any products such as vitamins, minerals, or otherdietary supplements. You should bring this list with you each time you visit a doctor or if you areadmitted to a hospital. It is also important information to carry with you in case of emergencies. This report on medications is for your information only, and is not considered individual patient advice. Because of the changing nature of drug information, please consult your physician or pharmacist about specific clinical use. [employer] represents that the information provided hereunder was formulated with a reasonable standard of care, and in conformity with professional standards in the field. [employer] makes no representations or warranties, express or implied, including, but not limited to, any implied warranty of merchantability and/or fitness for a particular purpose, with respect to such information and specifically disclaims all such warranties. Users are advised that decisions regarding drug therapy are complex medical decisions requiring the independent, informed decision of an appropriate health clinical care leader, and the information is provided for informational purposes only. The entire monograph for a drug should be reviewed for a thorough understanding of the drug's actions, uses and side effects. The [employer] does not endorse or recommend the use of any drug.The information is not a substitute for medical care. AHFS?? Patient Medication Information?. ?? Copyright, 2023. [employer]??, [address], [address], [place], [place]. All Rights Reserved. Duplication for commercial use must be authorized by [facility]. Selected Revisions: May 28, 2017. AHFS?? Patient Medication Information?. ?? Copyright, 2024 * Neida Garland - Chester Cuevas RN - 04/04/2025 10:23 AM EDT Images from the original note were not included. [id number] Acetaminophen Brand Name(s): Actamin??, Feverall??, Panadol??, Tempra Quicklets??, Tylenol??, Dayquil?? (as a combination product containing Acetaminophen, Dextromethorphan, Pseudoephedrine), NyQuil Cold/Flu Relief?? (as a combination product containing Acetaminophen, Dextromethorphan, Doxylamine), Percocet?? (as a combination product containing Acetaminophen, Oxycodone) APAP, T-zjqyqb-wlrp-aminophenol, Paracetamol ?? This branded product is no longer on the market. Generic alternatives may be available. IMPORTANT WARNING: Taking too much acetaminophen can cause liver damage, sometimes serious enough to require liver transplantation or cause . You might accidentally take too much acetaminophen if you do not followthe directions on the prescription or package label carefully, or if you take more than one productthat contains acetaminophen. To be sure that you take acetaminophen safely, you should ? not take more than one product that contains acetaminophen at a time. Read the labels of all the prescription and nonprescription medications you are taking to see if they contain acetaminophen. Beaware that abbreviations such as APAP, AC, Acetaminophen, Acetaminoph, Acetaminop, Acetamin, or Acetam. may be written on the label in place of the word acetaminophen. Ask your doctor or pharmacist if you don't know if a medication that you are taking contains acetaminophen. ? take acetaminophen exactly as directed on the prescription or package label. Do not take more acetaminophen or take it more often than directed, even if you still have fever or pain. Ask your doctor or pharmacist if you do not know how much medication to take or how often to take your medication.Call your doctor if you still have pain or fever after taking your medication as directed. ? be aware that you should not take more than 4000 mg of acetaminophen per day. If you need to takemore than one product that contains acetaminophen, it may be difficult for you to calculate the total amount of acetaminophen you are taking. Ask your doctor or pharmacist to help you. ? tell your doctor if you have or have ever had liver disease. ? not take acetaminophen if you drink three or more alcoholic drinks every day. Talk to your doctorabout the safe use of alcohol while you are taking acetaminophen. ? stop taking your medication and call your doctor right away if you think you have taken too much acetaminophen, even if you feel well. Talk to your pharmacist or doctor if you have questions about the safe use of acetaminophen or acetaminophen-containing products. WHY is this medicine prescribed? Acetaminophen is used to relieve mild to moderate pain from headaches, muscle aches, menstrual periods, colds and sore throats, toothaches, backaches, reactions to vaccinations (shots), and to reducefever. Acetaminophen may also be used to relieve the pain of osteoarthritis (arthritis caused by the breakdown of the lining of the joints). Acetaminophen is in a class of medications called analgesics (pain relievers) and antipyretics (fever reducers). It works by changing the way the body senses pain and by cooling the body. HOW should this medicine be used? Acetaminophen comes as a tablet, chewable tablet, capsule, suspension or solution (liquid), extended-release (long-acting) tablet, and orally disintegrating tablet (tablet that dissolves quickly in the mouth), to take by mouth, with or without food. Acetaminophen is available without a prescription, but your doctor may prescribe acetaminophen to treat certain conditions. Follow the directions on the package or prescription label carefully, and ask your doctor or pharmacist to explain any part you do not understand. If you are giving acetaminophen to your child, read the package label carefully to make sure that it is the right product for the age of the child. Do not give children acetaminophen products that are made for adults. Some products for adults and older children may contain too much acetaminophen for a younger child. Check the package label to find out how much medication the child needs. If you know how much your child weighs, give the dose that matches that weight on the chart. If you don't know your child's weight, give the dose that matches your child's age. Ask your child's doctor if you don't know how much medication to give your child. Acetaminophen comes in combination with other medications to treat cough and cold symptoms. Ask your doctor or pharmacist for advice on which product is best for your symptoms. Check nonprescription cough and cold product labels carefully before using two or more products at the same time. These products may contain the same active ingredient(s) and taking them together could cause you to receivean overdose. This is especially important if you will be giving cough and cold medications to a child. Swallow the extended-release tablets whole; do not split, chew, crush, or dissolve them. Place the orally disintegrating tablet ('Meltaways') in your mouth and allow it to dissolve, or chew it before swallowing. Shake the suspension well before each use to mix the medication evenly. Always use the measuring cup or syringe provided by the [employer] to measure each dose of the solution or suspension. Do notswitch dosing devices between different products; always use the device that comes in the product packaging. Stop taking acetaminophen and call your doctor if your symptoms get worse, you develop new or unexpected symptoms, including redness or swelling, your pain lasts for more than 10 days, or your fever gets worse or lasts more than 3 days. Also stop giving acetaminophen to your child and call your child's doctor if your child develops new symptoms, including redness or swelling, or if your child's pain lasts for longer than 5 days, or if a fever gets worse or lasts longer than 3 days. Do not give acetaminophen to a child who has a sore throat that is severe or does not go away, or that occurs along with fever, headache, rash, nausea, or vomiting. Call the child's doctor right away, because these symptoms may be signs of a more serious condition. Are there OTHER USES for this medicine? Acetaminophen may also be used in combination with aspirin and caffeine to relieve the pain associated with migraine headache. This medication is sometimes prescribed for other uses; ask your doctor or pharmacist for more information. What SPECIAL PRECAUTIONS should I follow? Before taking acetaminophen, ? tell your doctor and pharmacist if you are allergic to acetaminophen, any other medications, or any of the ingredients in the product. Ask your pharmacist or check the label on the package for a list of ingredients. ? tell your doctor and pharmacist what prescription and nonprescription medications, vitamins, nutritional supplements, or herbal products you are taking or plan to take while taking acetaminophen. Your doctor may need to change the doses of your medications or monitor you carefully for side effects. ? The following nonprescription products may interact with acetaminophen: medications for pain, coughs, fever, and colds. Be sure to let your doctor and pharmacist know that you are taking these medications before you start taking acetaminophen. Do not start any of these medications while taking acetaminophen without discussing with your healthcare provider. ? tell your doctor if you have ever developed a rash after taking acetaminophen. ? tell your doctor if you are , plan to become , or are breast- feeding. If you become while taking acetaminophen, call your doctor. ? if you drink three or more alcoholic beverages every day, do not take acetaminophen. Ask your doctor or pharmacist about the safe use of alcoholic beverages while taking acetaminophen. ? you should know that combination acetaminophen products for cough and colds that contain nasal decongestants, antihistamines, cough suppressants, and expectorants should not be used in children younger than 2 years of age. Use of these medications in young children can cause serious and life-threatening effects or . In children 2 through 11 years of age, combination cough and cold productsshould be used carefully and only according to the directions on the label. ? if you have phenylketonuria (PKU, an inherited condition in which a special diet must be followedto prevent damage to your brain that can cause severe intellectual disability), you should know that some brands of acetaminophen chewable tablets may be sweetened with aspartame, a source of phenylalanine. What SPECIAL DIETARY instructions should I follow? Unless your doctor tells you otherwise, continue your normal diet. What should I do IF I FORGET to take a dose? This medication is usually taken as needed. If your doctor has told you to take acetaminophen regularly, take the missed dose as soon as you remember it. However, if it is almost time for the next dose, skip the missed dose and continue your regular dosing schedule. Do not take a double dose to make up for a missed one. What SIDE EFFECTS can this medicine cause? Some side effects can be serious. If you experience any of the following symptoms, stop taking acetaminophen and call your doctor immediately or get emergency medical attention: ? red, peeling or blistering skin ? rash ? hives ? itching ? swelling of the face, throat, tongue, lips, eyes, hands, feet, ankles, or lower legs ? hoarseness ? difficulty breathing or swallowing Acetaminophen may cause other side effects. Call your doctor if you have any unusual problems whileyou are taking this medication. If you experience a serious side effect, you or your doctor may send a report to the Food and Drug Administration's (FDA) MedWatch Adverse Event Reporting program online (https://www.fda.gov/Safety/MedWatch) or by phone ( ). What should I know about STORAGE and DISPOSAL of this medication? Keep this medication in the container it came in, tightly closed, and out of reach of children. Store it at room temperature and away from excess heat and moisture (not in the bathroom). It is important to keep all medication out of sight and reach of children as many containers (such as weekly pill minders and those for eye drops, creams, patches, and inhalers) are not child-resistant and young children can open them easily. To protect young children from poisoning, always lock safety caps and immediately place the medication in a safe location - one that is up and away and out of their sight and reach. https://www.upandaway.org Unneeded medications should be disposed of in special ways to ensure that pets, children, and otherpeople cannot consume them. However, you should not flush this medication down the toilet. Instead,the best way to dispose of your medication is through a medicine take-back program. Talk to your pharmacist or contact your local garbage/recycling department to learn about take-back programs in your community. See the FDA's Safe Disposal of Medicines website (https://goo.gl/c4Rm4p) for more information if you do not have access to a take-back program. What should I do in case of OVERDOSE? In case of overdose, call the poison control helpline at . Information is also available online at https://www.poisonhelp.org/help. If the victim has collapsed, had a seizure, has trouble breathing, or can't be awakened, immediately call emergency services at 911. If someone takes more than the recommended dose of acetaminophen, get medical help immediately, even if the person does not have any symptoms. Symptoms of overdose may include the following: ? nausea ? vomiting ? loss of appetite ? sweating ? extreme tiredness ? unusual bleeding or bruising ? pain in the upper right part of the stomach ? yellowing of the skin or eyes ? flu-like symptoms What OTHER INFORMATION should I know? Before having any laboratory test, tell your doctor and the laboratory personnel that you are taking acetaminophen. Ask your pharmacist any questions you have about acetaminophen. It is important for you to keep a written list of all of the prescription and nonprescription (hrem-qhi-tqdgwpr) medicines you are taking, as well as any products such as vitamins, minerals, or otherdietary supplements. You should bring this list with you each time you visit a doctor or if you areadmitted to a hospital. It is also important information to carry with you in case of emergencies. This report on medications is for your information only, and is not considered individual patient advice. Because of the changing nature of drug information, please consult your physician or pharmacist about specific clinical use. [employer] represents that the information provided hereunder was formulated with a reasonable standard of care, and in conformity with professional standards in the field. [employer] [place] [employer] makes no representations or warranties, express or implied, including, but not limited to, any implied warranty of merchantability and/or fitness for a particular purpose, with respect to such information and specifically disclaims all such warranties. Users are advised that decisions regarding drug therapy are complex medical decisions requiring the independent, informed decision of an appropriate health clinical care leader, and the information is provided for informational purposes only. The entire monograph for a drug should be reviewed for a thorough understanding of the drug's actions, uses and side effects. The [employer] does not endorse or recommend the use of any drug.The information is not a substitute for medical care. AHFS?? Patient Medication Information?. ?? Copyright, 2023. The [employer]??, [address], [address], [place], [place]. All Rights Reserved. Duplication for commercial use must be authorized by [facility]. Selected Revisions: June 28, 2023. AHFS?? Patient Medication Information?. ?? Copyright, 2024 * Discharge Summary - Everett Marie DO - 04/04/2025 9:13 AM EDT Hospitalization Admit Date/Time: 03/29/2025 9:43 AM Admitting Attending: Ирина Lopez Discharge Date: 04/04/2025 Discharge Attending Physician: Ирина Lopez MD PCP name and Address: Casa Phillips MD [address] [facility] / [place] [address] Referring provider name and address: No referring provider defined for this encounter. Chief Concern, Brief History of Present Illness, and Hospital Course HPI: Cole Feliz Jr. is a 79 y.o. male who presented on 03/29/2025 and underwent a L VATS converted to thoracotomy, left upper lobectomy on 03/29/2025. The procedure was tolerated well with no intraoperative complications. The patient was successfully extubated post-operatively and taken to the PACU for immediate postoperative care per protocol. Patient was subsequently placed in a progressive care bed where the diet was slowly advanced which the patient tolerated well. The patient had an air leak post operatively, which resolved over the coming days and thus his chest tube was successfully removed. The remainder of the post-operative course was uncomplicated. On the day of discharge, the patient was ambulating frequently and independently with pain well controlled on po pain meds, tolerating a regular diet, voiding adequately, and passing flatus and stool. Patient was discharged to home in stable condition without pending results and will follow-up in 2weeks with Dr. Lopez. Surgeries and Procedures LEFT VATS LOBECTOMY coverted to open, Left thoracotomy, with medistinal lymph node disection and lypoma (Left) Medication List .. acetaminophen 500 MG tablet Commonly known as: Tylenol Take 2 tablets by mouth every 6 hours for 14 days. aspirin 81 MG EC tablet Take 1 tablet by mouth daily. clopidogrel 75 MG tablet Commonly known as: Plavix Take 1 tablet by mouth daily. metFORMIN 1000 MG tablet Commonly known as: Glucophage Take 1 tablet by mouth 2 times a day. methocarbamol 500 MG tablet Commonly known as: Robaxin Take 1 tablet by mouth every 6 hours for 14 days. polyethylene glycol 17 g packet Commonly known as: Miralax Take 17 g by mouth daily. rosuvastatin 20 MG tablet Commonly known as: Crestor Take 1 tablet by mouth daily. senna-docusate 8.6-50 MG tablet Commonly known as: Betty-Colace Take 2 tablets by mouth 2 times a day for 14 days. tamsulosin 0.4 MG 24 hr capsule Commonly known as: Flomax Take 1 capsule by mouth daily. Where to Get Your Medications These medications were sent to [facility] [place], [place] - [email or web address] [facility] [id number] acetaminophen 500 MG tablet methocarbamol 500 MG tablet polyethylene glycol 17 g packet senna-docusate 8.6-50 MG tablet tamsulosin 0.4 MG 24 hr capsule Discharge Diagnosis Medical Problems Active and Resolved Hospital Problems Hospital CKD (chronic kidney disease) stage 2, GFR 60-89 ml/min Essential hypertension Anemia Overview Signed 04/02/2025 9:07 AM by Scarlet Gamboa APRN 1 unit PRBC on 03/31 2units PRBC on 04/02 Monitor - transfuse as indicated Type 2 diabetes mellitus with stage 2 chronic kidney disease, without long-term current use of insulin (CMS/HCC) * (Principal) Non-small cell cancer of left lung (CMS/HCC) Overview Signed 03/30/2025 3:17 PM by Scarlet Gamboa APRN 03/29/2025: Bronchoscopy, left VATS converted to thoracotomy, left upper lobectomy, mediastinal lymph node dissection, intercostal nerve blocks Pain control Electrolyte abnormality Overview Signed 03/30/2025 3:18 PM by Scarlet Gamboa APRN Hypocalcemia Hypomagnesemia Hypophosphatemia Monitor - Replete as indicated Hyponatremia Overview Signed 03/30/2025 3:20 PM by Scarlet Gamboa APRN Monitor Post Discharge Instructions Medications: - You should take Tylenol and/or ibuprofen every 6 hours as needed for mild - moderate pain. - You have been prescribed pain medications to be taken as needed for severe pain. - You should take a stool softener prescribed as long as you are taking narcotics. - You may resume your previous medications unless otherwise instructed. Nutrition: - You may continue your regular diet as tolerated Activity: - Walking and climbing stairs is ok and encouraged. You should refrain from any strenuous activity/exercise until your follow up appointment. - No lifting anything >10lbs for the next 2 weeks - You may not drive for 48 hours after surgery, or while taking narcotics Dressing: - A special skin glue is used to close and cover your incision. Do not pick it off, it will fall ofon its own after approximately 2 weeks. The glue is waterproof but you should not soak your incision or take a tub bath for 2 weeks. - You should try to keep your incisions as clean and dry as possible - You may shower. Let the soapy water run over your incisions. Do not scrub at your incisions. After you shower, pat your incisions dry with a clean towel. - Do NOT soak your incisions, or take a tub bath for 2 weeks. - Chest tube dressing may be removed 48 hours after chest tube removal - remove dressing on 04/05 - If fluid is draining from chest tube site, you may cover with gauze and tape. If no fluid is draining, a dressing is not needed. - Stitches will be removed at follow up appointment. Potential Issues: - It is normal to have some pain and soreness, especially around the incisions - A small amount of clear drainage from the incision may be expected, call the office if the drainage becomes bloody, purulent (pus), or foul-smelling - Call the office if you start to have increased redness, drainage, swelling, or increased pain around your incision - Call the office if you have a fever greater than 101 F - Call the office if you have severe abdominal discomfort, nausea and vomiting, or feeling unwell Follow Up: - You will be contacted by the clinic for a follow up appointment with Dr. Lopez on 04/20/2025 - Contact the Thoracic Surgery team via: - For non-emergent questions/concerns: Clinic discharge # - For urgent questions/concerns: [facility] hotline: , option 4 - ask for the thoracic surgeon gas pumping station supervisor. Outpatient Follow-Up Future Appointments Date Time Provider Department Center 04/06/2025 10:40 AM Nikol[facility]aran[facility] Lin Test Results Pending At Discharge Pending Labs Order Current Status Surgical Pathology Exam In process Pertinent Physical Exam At Time of Discharge Physical Exam Constitutional: Appearance: Normal appearance. HENT: Head: Normocephalic and atraumatic. Cardiovascular: Rate and Rhythm: Normal rate and regular rhythm. Pulses: Normal pulses. Heart sounds: Normal heart sounds. Pulmonary: Effort: Pulmonary effort is normal. Breath sounds: Normal breath sounds. Comments: Stable left chest wall hematoma Chest tube site dressing clean, dry, and intact Abdominal: General: Abdomen is flat. Palpations: Abdomen is soft. Neurological: Mental Status: He is alert. Discharge Disposition/Condition Disposition: Home Condition: Stable (s/sx potential problems absent or manageable) I spent >30 minutes of patient care and instruction time in preparation for this discharge. Cosigned by Lamont Whitley DO at 04/04/2025 12:55 PM EDT Associated attestation - Lamont Whitley DO - 04/04/2025 12:55 PM EDT I saw and evaluated the patient with the resident/fellow. I discussed the case with the resident/fellow and agree with the findings and plan as documented. * Hospital Course - Everett Marie DO - 04/04/2025 6:45 AM EDT HPI: Cole Feliz Jr. is a 79 y.o. male who presented on 03/29/2025 and underwent a L VATS converted to thoracotomy, left upper lobectomy on 03/29/2025. The procedure was tolerated well with no intraoperative complications. The patient was successfully extubated post-operatively and taken to the PACU for immediate postoperative care per protocol. Patient was subsequently placed in a progressive care bed where the diet was slowly advanced which the patient tolerated well. The patient had an air leak post operatively, which resolved over the coming days and thus his chest tube was successfully removed. The remainder of the post-operative course was uncomplicated. On the day of discharge, the patient was ambulating frequently and independently with pain well controlled on po pain meds, tolerating a regular diet, voiding adequately, and passing flatus and stool. Patient was discharged to home in stable condition without pending results and will follow-up in 2weeks with Dr. Lopez. * Care Plan - Pam Trejo RN - 04/03/2025 9:42 PM EDT Problem: Infection Goal: Absence of Infection Signs and Symptoms Intervention: Prevent or Manage Infection Flowsheets (Taken 04/03/20252138) Fever Reduction/Comfort Measures: lightweight clothing lightweight bedding Isolation Precautions: precautions initiated precautions maintained Problem: Comorbidity Management Goal: Maintenance of COPD Symptom Control Intervention: Maintain COPD (Chronic Obstructive Pulmonary Disease) Symptom Control Flowsheets (Taken 04/03/20252139) Breathing Techniques/Airway Clearance: deep/controlled cough encouraged Medication Review/Management: medications reviewed high-risk medications identified Problem: Cardiovascular Surgery Goal: Effective Bowel Elimination Intervention: Enhance Bowel Motility and Elimination Flowsheets (Taken 04/03/20252140) Bowel Elimination Management: toileting offered relaxation techniques promoted Bowel Motility Enhancement: ambulation promoted fluid intake encouraged Problem: Cardiovascular Surgery Goal: Improved Activity Tolerance Intervention: Optimize Tolerance for Activity Flowsheets (Taken 04/03/20252139) Environmental Support: calm environment promoted comfort object encouraged Self-Care Promotion: independence encouraged Goal: Effective Bowel Elimination Intervention: Enhance Bowel Motility and Elimination Flowsheets (Taken 04/03/20252140) Bowel Elimination Management: toileting offered relaxation techniques promoted Bowel Motility Enhancement: ambulation promoted fluid intake encouraged * Progress Notes - Gina Sharp - 04/03/2025 12:14 PM EDT Physical Therapy Treatment Patient Name: Cole Feliz Today's Date: 04/03/2025 PT Discharge Recommendations: Home with assistance Equipment Recommended: Rollator Subjective Patient and RN agreeable to physical therapy intervention Participants in Care Family/Caregiver Present: Yes Family/Caregiver: Adult Daughter Presentation Oxygen Therapy: None (Room air) Lines and Tubes: Chest Tube 1 Left Midaxillary 24 Fr (Active) Peripheral IV 04/02/25 Left;Anterior Forearm (Active) Pre-Session: Supine, Head of bed elevated, Lines intact, Bed alarm Post-Session: RN notified, Lines intact, Call light in reach, Supine, Head of bed elevated, Bed alarm (zone 1, 2, 3) Post-Session Comments: all needs met, positioned for pressure relief and comfort, RN aware Precautions Medical Precautions: Left side thoractomy precautions Objective Pain Patient had no complaints of pain during session. RN aware. Delirium Screening Curtis Agitation Sedation Scale (RASS): Alert and calm Confusion Assessment Method-ICU (CAM-ICU/PCAM-ICU) Feature 3: Altered Level of Consciousness: Negative Bed Mobility Bed Mobility Exam: Supine to Sit Level of Shipman: Stand-by assist Physical/Nonphysical Assist: Set-up required, HOB elevated Assistive Device: Bed rails Transfers Transfer Exam: Sit to stand Level of Shipman: Stand-by assist Physical/Nonphysical Assist: Verbal Cues, Nonverbal cues (demo/gestures), Minimal cues Assistive Device: Rollator Transfer Exam: Stand to Sit Level of Shipman: Stand-by assist Physical/Nonphysical Assist: Verbal Cues, Nonverbal cues (demo/gestures), Minimal cues Assistive Device: Rollator Balance Postural Appearance Posture: Stooped posture Static Standing Balance Static Standing-Balance Support: No upper extremity supported Static Standing-Level of Assistance: Supervision Static Standing - Interventions: none Therapeutic Activity (26 minutes) Pt performed functional mobility training with emphasis on improving activity tolerance, balance, and biomechanics, as patient exhibits deconditioning from baseline. Refer to pertinent sections for intervention details. Skilled monitoring of vitals performed throughout session. Time required for line management and environmental set-up to allow for safety and access to areas of treatment space. Standardized Assessments [facility] 6-Clicks Mobility Assessment Difficulty patient has turning over in bed (including adjusting bedclothes, sheets, and blankets)?:A little Difficulty patient has sitting down on and standing up from a chair with arms (wheelchair, bedside commode, etc.)?: None Difficulty patient has moving from lying on back to sitting on the side of the bed?: A little How much help does the patient need moving to and from a bed to a chair (including a wheelchair)?: None How much help does the patient need to walk in hospital room?: None How much help does the patient need climbing 3-5 steps with a railing?: A little [facility] 6-Clicks Mobility Assessment Total : 21 Assessment Pt tolerated PT session well with no unexpected events occurring during treatment. Vital signs remained stable throughout treatment with no significant changes. PT educated patient on the importance of continued mobilization and participation with therapy. Pt could benefit from skilled physical therapy to continue to address the listed impairments so as to progress towards prior level of function with bed mobility, transfers, and gait, as well as ADLs. PT Recommendations Discharge Destination: Home with assistance Discharge Equipment: Rollator Plan Advance mobility per patient tolerance. PT Goals PT GOAL DETAILS Goal Established Date Time Frame Goal Status PT Goal 1: Pt will perform supine<>sit transfers with SBA and HOB flat, no use of bed rails. 03/31/25 2 weeks PT Goal 2: Pt will perform sit to stand and bed to chair transfers with Tristan and LRD. 03/31/25 2 weeks PT Goal 3: Pt will ambulate >400ft with Tristan and LRD. 03/31/25 2 weeks PT Goal 4: Pt will safely ascend/descend 2 steps with SBA and one handrail. 03/31/25 2 weeks Written by Gina Sharp on 04/03/25 at 12:15 PM. * Progress Notes - Sabina Huynh, BUCK - 04/03/2025 12:06 PM EDT Weekend CM was contacted by Occupational Therapy for assistance with DME. Referrals sent to [facility] for Rollator to be delivered to bedside today. * Progress Notes - Patricia Torres - 04/03/2025 11:49 AM EDT Occupational Therapy Treatment Patient Name: Cole Feliz Jr. Today's Date: 04/03/2025 OT Discharge Recommendations: Home with 24 hour assistance Equipment Recommended: Rollator Subjective Pt consent to tx Participants in Care Family/Caregiver Present: Yes Family/Caregiver: Adult Daughter Foundation Relations Manager: Not Applicable Presentation Oxygen Therapy: None (Room air) Lines and Tubes: Intravenous access, Telemetry Pre-Session: Supine, Head of bed elevated, Lines intact, Bed alarm Pre-Session Comments: RN consent to tx Post-Session: RN notified, Lines intact, Call light in reach, Supine, Head of bed elevated, Bed alarm (zone 1, 2, 3) Post-Session Comments: all needs met, positioned for pressure relief and comfort, RN aware; family at bedside Precautions Medical Precautions: Left side thoractomy precautions Objective Pain Pt does not endorse pain Delirium Screening Curtis Agitation Sedation Scale (RASS): Alert and calm Confusion Assessment Method-ICU (CAM-ICU/PCAM-ICU) Feature 3: Altered Level of Consciousness: Negative Cognition Cognition Overall Cognitive Status: Within Functional Limits Arousal/Alertness: Appropriate responses to stimuli Mood/Behavior: Alert Orientation Level: Oriented X4 Single Step Commands: Consistently Multi-Step Commands: Consistently Method of Communication: Verbal Awareness of Errors: Assistance required to identify errors made Deficit Awareness: Decreased awareness of deficits Attention Span: Attends with cues to redirect Bed Mobility Bed Mobility Exam: Supine to Sit Level of Shipman: Stand-by assist Physical/Nonphysical Assist: Set-up required, HOB elevated Transfers Transfer Exam: Sit to stand Level of Shipman: Stand-by assist Physical/Nonphysical Assist: Verbal Cues, Nonverbal cues (demo/gestures), Minimal cues Assistive Device: Rollator Transfer Exam: Stand to Sit Level of Shipman: Stand-by assist Physical/Nonphysical Assist: Verbal Cues, Nonverbal cues (demo/gestures), Minimal cues Assistive Device: Rollator Balance Postural Appearance Posture: Stooped posture Static Standing Balance Static Standing-Balance Support: No upper extremity supported Static Standing-Level of Assistance: Supervision Static Standing - Interventions: none Self-Care Interventions Self Care/Home Management (ADLs) Time Entry: 23 Self_Care Interventions: OT educates pt and pt daughter on the importance of energy conservation and supervision (initial) when participating in BADL (showering) to promote safe ADL participation andto decrease risk of falls. OT educates pt on importance of seated UB/LB dressing as he recovers as well as acquiring a shower chair/TTB to promote safe bathing. Pt and daughter verbalize understanding. OT provides min vc to maintain L side thoracotomy precautions today; namely during transfers. OT reinforces education to pt and family. Community Re-entry: Training provided to physical activity for the purpose of supporting endurance-based training to improve health and decrease risk of health decline in setting of prolonged hospital-based recover. Patient engaged in 1 of 3 prescribed daily walks to support increased activity in daily routine, with patient achieving a distance of 640 feet with Stand by assist + Rollator to provide postural support. OT providing training for self-assessment of RPE with use of modified GUILLEROM scale and to take rest as RPE reaches 6. Pt verbalizes understanding. Standardized Assessments [facility] 6-Click Daily Activities Help from Other: Don/Doff Regular Lower Body Clothings: Little Help From Other: Bathing: Little Help From Other: Toileting: Little Help From Other: Don/Doff Upper Body Clothings: Little Help From Other: Grooming: Little Help From Other: Eating Meals: None [facility] 6 Click - Daily Activities Score: 19 Assessment Pt responds well to tx; benefits from reinforcement regarding thoracotomy restrictions and progresses to SBA for prolonged mobility in prep for IADL. HR 130's bpm post 640' walk. Recs changed to homewith 24 A to reflect progress. OT Recommendations Discharge Destination: Home with 24 hour assistance Discharge Equipment: Rollator Plan Progress pt in BADL/mobility as he is able Goals OT GOAL DETAILS Goal Established Date Time Frame Goal Status OT Goal 1: Pt will complete total body dressing skills with SBA and appropriate adaptive device. 03/31/25 2 weeks OT Goal 2: Pt will complete toileting skills with SBA and appropriate adaptive device. 03/31/25 2 weeks OT Goal 3: Pt will complete functional transfers with SBA and appropriate adaptive device to increase independence with toilet transfers. 03/31/25 2 weeks OT Goal 4: Pt will independently adhere to left sided thoracotomy precautions during all ADL tasks and functional transfers. 03/31/25 Written by Patricia Torres on 04/03/25 at 4:50 PM. * Progress Notes - Frank Everett Jackson DO - 04/03/2025 9:58 AM EDT Images from the original note were not included. [facility] Department of Surgery Section of Thoracic Surgery Progress Note 04/03/25 Cole Feliz Jr. History of Present Illness Cole Feliz Jr. is a 79 y.o. male 5 Days Post-Op from Bronchoscopy, left VATS converted to thoracotomy, left upper lobectomy, mediastinal lymph node dissection, intercostal nerve blocks. Procedures this admission 03/29/2025: Bronchoscopy, left VATS converted to thoracotomy, left upper lobectomy, mediastinal lymph node dissection, intercostal nerve blocks Events of last 24 hours NAEON. Seen resting comfortably in bed. Chest wall hematoma site seen and inspected on rounds, appears stable in size. Hb stable this AM after 2u pRBCs yesterday. Has been ambulating without difficulty. Tolerating a regular diet. Kidney function continues to improve. CT on water seal, no air leak appreciated this AM on rounds. Relevant review of systems was obtained as able and is negative unless stated above in HPI. Physical Exam: Visit Vitals BP (!) 151/63 Pulse 100 Temp 36.7 ??C (98 ??F) (Oral) Ht 1.778 m (5' 10 ) Wt 67 kg (147 lb 11.3 oz) SpO2 98% BMI 21.19 kg/m?? GENERAL: WD, WN, NAD EYES: No scleral icterus or conjunctivitis HENT: Atraumatic, normocephalic, nares patent, mucus membranes moist NECK: Supple RESP/CHEST: symmetric chest rise, non-labored, left CT in place. Hematoma stable in size CARD: regular rate, regular rhythm Extremities: No lower extremity edema present. No cyanosis or clubbing. Pedal pulses palpable +2. GI: soft, non-distended SKIN: No rash, sores, lesions or subcutaneous nodules. Incision well approximated, suspected small hematoma NEURO: AAOx4. Motor intact and no focal deficits PSYCH: Mood and affect congruent and appropriate to situation Intake/Output Summary (Last 24 hours) at 04/03/2025 0958 Last data filed at 04/03/2025 0900 Gross per 24 hour Intake 1066.67 ml Output 3225 ml Net -2158.33 ml Lines/Drains/Tubes: Patient Lines/Drains/Airways Status Active Airway None Output by Drain (mL) 04/01/25 0700 - 04/01/25 1859 04/01/25 1900 - 04/02/25 0659 04/02/25 0700 - 04/02/25 1859 04/02/25 1900 - 04/03/25 0659 04/03/25 0700 - 04/03/25 0958 Requested LDAs do not have output data documented. Labs in last 18 hours: CBC WBC 6.54 Hb 9.8 (L) Plt 209 Hct 29.2 (L) ANC ?? INR ??, PTT ??, Anti-Xa ?? MCV 85 BMP Na 135 (L) Cl 103 BUN 16 Glu 131 (H) K 4.9 Co2 21 (L) Cr 1.34 (H) Ca 7.7 (L) iCa ?? Mg 2.0, Phos 2.2 (L) Lactate ?? LFT AST ?? AlkPhos ?? T Prot ?? ALK ?? Bili ?? Alb ?? D.Bili ?? Lab Trends: H/H Results from last 7 days Lab Units 04/03/25 0345 04/02/25 1502 04/02/25 0432 HEMOGLOBIN g/dL 9.8* 8.9* 6.4* HEMATOCRIT % 29.2* 26.9* 19.0* INR Results from last 7 days Lab Units 03/29/25 1958 03/29/25 1604 INR 1.0 1.0 Cr Results from last 7 days Lab Units 04/03/25 0345 04/02/25 0432 04/01/25 0212 CREATININE mg/dL 1.34* 1.47* 1.67* Medications reviewed. Vital signs reviewed. Labs reviewed. Radiography reviewed. CXR: small left apical residual space, left CT in place Assessment and Plan: Medical Problems Problem List * (Principal) Non-small cell cancer of left lung (CMS/HCC) Overview Signed 03/30/2025 3:17 PM by Scarlet Gamboa APRN 03/29/2025: Bronchoscopy, left VATS converted to thoracotomy, left upper lobectomy, mediastinal lymph node dissection, intercostal nerve blocks Pain control CKD (chronic kidney disease) stage 2, GFR 60-89 ml/min Essential hypertension Anemia Overview Signed 04/02/2025 9:07 AM by Scarlet Gamboa APRN 1 unit PRBC on 03/31 2units PRBC on 04/02 Monitor - transfuse as indicated Type 2 diabetes mellitus with stage 2 chronic kidney disease, without long-term current use of insulin ([facility]) Microalbuminuria Tobacco use disorder Second hand smoke exposure Electrolyte abnormality Overview Signed 03/30/2025 3:18 PM by Scarlet Gamboa APRN Hypocalcemia Hypomagnesemia Hypophosphatemia Monitor - Replete as indicated Hyponatremia Overview Signed 03/30/2025 3:20 PM by Scarlet Gamboa APRN Monitor Present on Admission: Non-small cell cancer of left lung (CMS/HCC) Essential hypertension CKD (chronic kidney disease) stage 2, GFR 60-89 ml/min Type 2 diabetes mellitus with stage 2 chronic kidney disease, without long-term current use of insulin ([facility]) Anemia Electrolyte abnormality Plan: - Remove chest tube, CXR in 4 hours - Remove clemente, no need for bladder scan unless symptomatic - Continue home Flomax - Pulm toilet/IS/ out of bed - Continue MMPC - Continue to hold DVT ppx - PT/OT; currently recommend home with assist Everett Marie DO Thoracic Surgery Cosigned by Lamont Whitley DO at 04/04/2025 12:55 PM EDT Associated attestation - Lamont Whitley DO - 04/04/2025 12:55 PM EDT I saw and evaluated the patient with the resident/fellow. I discussed the case with the resident/fellow and agree with the findings and plan as documented. * Care Plan - Travis Corral RN - 04/02/2025 7:06 PM EDT Problem: Adult Inpatient Plan of Care Goal: Plan of Care Review Outcome: Ongoing, Progressing Goal: Patient-Specific Goal (Individualized) Outcome: Ongoing, Progressing Goal: Absence of Hospital-Acquired Illness or Injury Outcome: Ongoing, Progressing Goal: Optimal Comfort and Wellbeing Outcome: Ongoing, Progressing Goal: Readiness for Transition of Care Outcome: Ongoing, Progressing Problem: Self-Care Deficit Goal: Improved Ability to Complete Activities of Daily Living Outcome: Ongoing, Progressing Problem: Infection Goal: Absence of Infection Signs and Symptoms Outcome: Ongoing, Progressing * Procedures - Shen Card RN - 04/02/2025 10:35 AM EDTAssociated Order(s): Insert peripheral IV Insert peripheral IV Performed by: Shen Card RN Authorized by: Ирина Lopez MD Hand hygiene: Hand hygiene performed prior to insertion Inserted using aseptic techniques: Yes Preparation: Skin prepped with chg Orientation: Left and anterior Location: Forearm Catheter placed: Peripheral IV Catheter size: 20g/2.00in Line Technique: Ultrasound Guidance Number of attempts: 1 IV flushes: Without difficulty and positive blood return noted and IV luer locked Patient tolerance: Patient tolerated the procedure well Patient comfort measures used: Position of comfort IV site covered with: Transparent semipermeable dressing Education provided to: Patient Comments: All pertinent images were uploaded to PACS. * Progress Notes - Sola Lawrence - 04/02/2025 9:40 AM EDT Occupational Therapy Treatment Patient Name: Cole Feliz Jr. Today's Date: 04/02/2025 OT Discharge Recommendations: Subacute rehab Equipment Recommended: Rollator Subjective Patient agreeable to OT treatment following RN's consent. Participants in Care Family/Caregiver Present: No Presentation Oxygen Therapy: None (Room air) Lines and Tubes: Intravenous access, Telemetry Pre-Session: Supine, Head of bed elevated, Lines intact, Bed alarm Post-Session: RN notified, Lines intact, Call light in reach, Supine, Head of bed elevated, Bed alarm (zone 1, 2, 3) Post-Session Comments: all needs met, positioned for pressure relief and comfort, RN aware Precautions Medical Precautions: Left side thoractomy precautions Objective Pain Patient denies pain at rest, reports 3/10 incisional site pain throughout OOB activity, appears well tolerated. Patient provided with cuing throughout activity for pain management techniques and provided with repositioning for comfort and pressure relief. Delirium Screening Curtis Agitation Sedation Scale (RASS): Alert and calm Confusion Assessment Method-ICU (CAM-ICU/PCAM-ICU) Feature 1: Acute Onset or Fluctuating Course: Negative Feature 2: Inattention: Negative Feature 3: Altered Level of Consciousness: Negative Feature 4: Disorganized Thinking: Negative Overall CAM-ICU/PCAM-ICU: Negative Cognition Cognition Overall Cognitive Status: Within Functional Limits Arousal/Alertness: Appropriate responses to stimuli Mood/Behavior: Alert Orientation Level: Oriented X4 Single Step Commands: Consistently Multi-Step Commands: Consistently Method of Communication: Verbal Safety Judgment: Decreased awareness of need for assistance Awareness of Errors: Assistance required to identify errors made Deficit Awareness: Decreased awareness of deficits Attention Span: Attends with cues to redirect Self-Care Interventions Self Care/Home Management (ADLs) Time Entry: 25 Feeding Feeding Level of Assistance: Modified independent Feeding Where Assessed: Chair Level Feeding Interventions: pt demos functional thalia UE strength and dexterity needed for food tray set up and self feeding routine completion Grooming Grooming Level of Assistance: Setup, SBA Grooming Where Assessed: Edge of bed Grooming Interventions: hair brushing and hand washing, SBA for sitting balance UE Dressing UE Dressing Level of Assistance: Setup, Contact guard UE Dressing Where Assessed: Edge of bed UE Dressing Interventions: gown management and adjustments Lower Extremity Dressing Sock Level of Assistance: Moderate assistance, Setup Shoe Level of Assistance: Moderate assistance, Setup LE Dressing Where Assessed: Edge of bed LE Dressing Interventions: min A for sitting balance, mod A for functional reaching toward distal LEs limited 2/2 pain and dyspnea Toileting Toileting Level of Assistance: Minimum assistance Where Assessed: Toilet Toileting Interventions: CGA for commode transfers, CGA for ambulation to/from bathroom using rollator, min A for betty care, cuing for sequencing, safety, and posture/functional breathing techniques Bed Mobility Bed Mobility Exam: Scooting/Bridging Level of Shipman: Minimum assist (75% patient's effort) Physical/Nonphysical Assist: Verbal Cues, Nonverbal cues (demo/gestures), Minimal cues Bed Mobility Exam: Supine to Sit Level of Shipman: Minimum assist (75% patient's effort) Physical/Nonphysical Assist: Verbal Cues, Nonverbal cues (demo/gestures), HOB elevated Bed Mobility Exam: Sit to Supine Level of Shipman: Minimum assist (75% patient's effort) Physical/Nonphysical Assist: Verbal Cues, Minimal cues Transfers Transfer Exam: Sit to stand Level of Shipman: Minimum assist (75% patient's effort) Physical/Nonphysical Assist: Verbal Cues, Nonverbal cues (demo/gestures), Minimal cues Assistive Device: Rollator Transfer Exam: Stand to Sit Level of Shipman: Minimum assist (75% patient's effort) Physical/Nonphysical Assist: Verbal Cues, Nonverbal cues (demo/gestures), Minimal cues Assistive Device: Rollator Patient ambulates < household distances with min A for balance using rollator for safety, energyconservation, and work simplification techniques. Balance Postural Appearance Posture: Stooped posture Static Sitting Balance Static Sitting-Balance Support: Right upper extremity support, Left upper extremity support, Feet supported Static Sitting-Level of Assistance: Standby assist Stating Sitting - Interventions: EOB Dynamic Sitting Balance Dynamic Sitting-Balance Support: Right upper extremity support, Left upper extremity support, Feet supported Dynamic Sitting-Balance: Lateral weight shifts, Anterior/Posterior weight shifts, Reaching for objects Level of Assistance: Contact guard Dynamic Sitting - Interventions: EOB Static Standing Balance Static Standing-Balance Support: Right upper extremity support, Left upper extremity support Static Standing-Level of Assistance: Contact guard Static Standing - Interventions: rollator Dynamic Standing Balance Dynamic Standing-Balance Support: Right upper extremity support, Left upper extremity support Dynamic Standing-Balance: Lateral weight shifts, Anterior/Posterior weight shifts, Reaching for objects Dynamic Standing Level of Assistance: Minimum assistance Dynamic Standing - Interventions: rollator Assessment Patient progressing well toward OT goals, continue with safety, strength, balance, endurance and activity tolerance training in prep for ADL/IADL tasks as pt continues to be limited by generalized weakness, instability in standing, intermittent pain, and dyspnea with exertion. Patient remains at high risk for falling with increased assist from staff for basic self care routines from sitting 2/2 weakness and instability. Continue with OT POC and discharge recommendations- pt remains agreeable and motivated. OT Recommendations Discharge Destination: Subacute rehab Discharge Equipment: Rollator Plan Patient remains appropriate for current OT POC. Continue OT POC. Goals OT GOAL DETAILS Goal Established Date Time Frame Goal Status OT Goal 1: Pt will complete total body dressing skills with SBA and appropriate adaptive device. 03/31/25 2 weeks OT Goal 2: Pt will complete toileting skills with SBA and appropriate adaptive device. 03/31/25 2 weeks OT Goal 3: Pt will complete functional transfers with SBA and appropriate adaptive device to increase independence with toilet transfers. 03/31/25 2 weeks OT Goal 4: Pt will independently adhere to left sided thoracotomy precautions during all ADL tasks and functional transfers. 03/31/25 2 weeks Written by Sola Lawrence on 04/02/25 at 12:40 PM. * Progress Notes - Ramone Lane - 04/02/2025 9:39 AM EDT PHYSICAL THERAPY TREATMENT PATIENT DATA Patient Name Cole Feliz Jr. Session Date 04/02/2025 Total Treatment Time 25 min PT Discharge Recommendations Subacute rehab PT Equipment Recommendations Defer to facility PRECAUTIONS Weight Bearing Precautions (if applicable) ROM Restrictions (if applicable) Medical Precautions Yes Medical Precautions: Left side thoractomy precautions HOME LIVING/SET-UP Lives With Adult, Daughter Home Type House Home Equipment Cane, shower chair Home Layout One level, Stairs to enter with rails 2 Bathroom Layout Tub/Shower combo, Shower chair Additional Comments PRIOR LEVEL OF FUNCTION Receives help from Daughter Level of Mobility Ambulatory- household only Mobility Shipman Independent gait without device History of Falls No ADL Performance ADL Performance: Needs assistance Bathing: Needs device (shower chair) Upper Body Dressing: Independent Lower Body Dressing: Independent Grooming: Independent Toileting: Independent Eating: Independent Home Management Skills: Needs assist PRESENTATION Oxygen Oxygen Therapy: None (Room air) Lines and Tubes Chest Tube 1 Left Midaxillary 24 Fr (Active) Peripheral IV 03/29/25 Anterior;Right Forearm (Active) Peripheral IV 04/02/25 Left;Anterior Forearm (Active) Pre-Session Supine, Head of bed elevated, Lines intact, Bed alarm Post-Session RN notified, Lines intact, Call light in reach, Supine, Head of bed elevated, Bed alarm (zone 1, 2, 3) all needs met, positioned for pressure relief and comfort, RN aware Bracing (if applicable) SUBJECTIVE PARTICIPANTS IN CARE Visitors Present No, Subjective Report Pt HAS been: * Ambulating in-room distances since last PT treatment. Foundation Relations Manager (if applicable) OBJECTIVE & INTERVENTIONS PAIN Pt was without complaints of pain throughout the PT treatment. DELIRIUM SCREENING Curtis Agitation Sedation Scale (RASS): Alert and calm Feature 3: Altered Level of Consciousness: Negative THERAPEUTIC ACTIVITY Treatment Minutes 25 BED MOBILITY Level of Shipman Physical/Non- physical Assist Adaptive Equipment Utilized Scooting/ Bridging Minimum assist (75% patient's effort) Verbal Cues, Nonverbal cues (demo/gestures), Minimalcues Supine to Sit Minimum assist (75% patient's effort) Verbal Cues, Nonverbal cues (demo/gestures), HOB elevated Sit to Supine Minimum assist (75% patient's effort) Verbal Cues, Minimal cues Interventions PT cued for BLE sequencing toward edge of bed along with contralateral UE reach in order to increase efficiency with supine <> sit TRANSFERS Level of Shipman Physical/Non- physical Assist Adaptive Equipment Utilized Sit to Stand Minimum assist (75% patient's effort) Verbal Cues, Nonverbal cues (demo/gestures), Minimal cues Rollator Stand to sit Minimum assist (75% patient's effort) Verbal Cues, Nonverbal cues (demo/gestures), Minimal cues Rollator Interventions PT cued for proper hand placement and forward trunk lean prior to completing STS transfers BALANCE Postural Appearance Posture: Stooped posture Level of Shipman Balance Support Interventions Static Sit Standby assist Right upper extremity support, Left upper extremity support, Feet supported EOB Dynamic Sit Contact guard Right upper extremity support, Left upper extremity support, Feet supported Dynamic Sitting-Balance: Lateral weight shifts, Anterior/Posterior weight shifts, Reaching for objects Dynamic Sitting - Interventions: EOB Static Stand Contact guard Right upper extremity support, Left upper extremity support rollator Dynamic Stand Minimum assistance Right upper extremity support, Left upper extremity support AMBULATION Level of Shipman Distance Adaptive Equipment Utilized Ambulation Contact guard assist 150 feet max distance prior to requiring seated rest break Rollator Comments Patient ambulates with slow pace and forward flexed posture. PT cued for patient to implement upright posture ad forward gaze along with educating patient on potential benefit of paced activity by utiliszing therapeutic rest breaks. Patient reported 9/10 modified RPE following 150 feet. PT presence was necessary for: * managing lines * decreasing patient's risk of falling while progressing pt's distances Standardized Assessments [facility] 6-Clicks Mobility Assessment Difficulty patient has turning over in bed (including adjusting bedclothes, sheets, and blankets)?:A little Difficulty patient has sitting down on and standing up from a chair with arms (wheelchair, bedside commode, etc.)?: A little Difficulty patient has moving from lying on back to sitting on the side of the bed?: A little How much help does the patient need moving to and from a bed to a chair (including a wheelchair)?: A little How much help does the patient need to walk in hospital room?: A little How much help does the patient need climbing 3-5 steps with a railing?: Unable [facility] 6-Clicks Mobility Assessment Total : 16 ASSESSMENT Pt is improving, as noted by: less assistance was required for pt to complete some or all transfersand pt ambulated increased walking distances during this PT treatment compared to last PT treatment. Pt has the following impairments: impaired activity tolerance, gross functional weakness, and impaired balance, which is limiting the pt from performing independent functional mobility. Patient may benefit from Subacute Rehab for the following reasons: Pt remains as a high fall risk and is unsafe for discharge to home Pt ambulates at a slow pace and cannot perform ADL and iADLs functionally without prolonged rests Pt has stairs that pt cannot negotiate safely Pt would benefit from further instruction improving functional transfers and ambulation Pt would likely benefit more from Subacute Rehab than other rehab services due to pt's medical acuity, level of immobility, and need for improved safety prior to returning home. PT RECOMMENDATIONS Discharge Destination Subacute rehab Discharge Equipment Defer to facility PLAN Pt may continue to benefit from skilled PT for addressing patient's impairments and reducing patient's participation restrictions and activity limitations. PT GOALS PT GOAL DETAILS DATE ASSESSED STATUS PROGRESS PT Goal 1: Pt will perform supine<>sit transfers with SBA and HOB flat, no use of bed rails. PT Goal 1 Established Date: 03/31/25 PT Goal 1 Time Frame: 2 weeks PT Goal 2: Pt will perform sit to stand and bed to chair transfers with Tristan and LRD. PT Goal 2 Established Date: 03/31/25 PT Goal 2 Time Frame: 2 weeks PT Goal 3: Pt will ambulate >400ft with Tristan and LRD. PT Goal 3 Established Date: 03/31/25 PT Goal 3 Time Frame: 2 weeks PT Goal 4: Pt will safely ascend/descend 2 steps with SBA and one handrail. PT Goal 4 Established Date: 03/31/25 PT Goal 4 Time Frame: [address] Written by [address]one Lane on 04/02/25 at 1:13 PM. * Progress Notes - Scarlet Gamboa APRN - 04/02/2025 9:07 AM EDT Images from the original note were not included. [facility] Department of Surgery Section of Thoracic Surgery Progress Note 04/02/25 Cole Feliz Jr. History of Present Illness Cole Feliz Jr. is a 79 y.o. male 4 Days Post-Op from Bronchoscopy, left VATS converted to thoracotomy, left upper lobectomy, mediastinal lymph node dissection, intercostal nerve blocks. Procedures this admission 03/29/2025: Bronchoscopy, left VATS converted to thoracotomy, left upper lobectomy, mediastinal lymph node dissection, intercostal nerve blocks Events of last 24 hours Worsened anemia overnight, 2u PRBC ordered for this morning. Patient with small suspected hematoma at incision site. Left chest tube in place, +air leak. Tolerating PO. HDS. Relevant review of systems was obtained as able and is negative unless stated above in HPI. Physical Exam: Visit Vitals BP (!) 125/46 (BP Location: Right arm, Patient Position: Lying) Pulse 76 Temp 36.7 ??C (98 ??F) (Oral) Ht 1.778 m (5' 10 ) Wt 67.9 kg (149 lb 11.1 oz) SpO2 99% BMI 21.48 kg/m?? GENERAL: WD, WN, NAD EYES: No scleral icterus or conjunctivitis HENT: Atraumatic, normocephalic, nares patent, mucus membranes moist NECK: Supple RESP/CHEST: symmetric chest rise, non-labored, left CT in place CARD: regular rate, regular rhythm Extremities: No lower extremity edema present. No cyanosis or clubbing. Pedal pulses palpable +2. GI: soft, non-distended SKIN: No rash, sores, lesions or subcutaneous nodules. Incision well approximated, suspected small hematoma NEURO: AAOx4. Motor intact and no focal deficits PSYCH: Mood and affect congruent and appropriate to situation Intake/Output Summary (Last 24 hours) at 04/02/2025 0908 Last data filed at 04/02/2025 0645 Gross per 24 hour Intake 727 ml Output 1960 ml Net -1233 ml Lines/Drains/Tubes: Patient Lines/Drains/Airways Status Active Airway None Output by Drain (mL) 03/31/25 07 - 03/31/25 18503/31/25 190 - 04/01/25 0659 04/01/25 0700 - 04/01/25 1859 04/01/25 1900 - 04/02/25 0659 04/02/25 0700 - 04/02/25 0908 Requested LDAs do not have output data documented. Labs in last 18 hours: CBC WBC 6.22 Hb 6.4 (LL) Plt 180 Hct 19.0 (LL) ANC ?? INR ??, PTT ??, Anti-Xa ?? MCV 89 BMP Na 137 Cl 104 BUN 16 Glu 114 (H) K 4.3 Co2 24 Cr 1.47 (H) Ca 7.8 (L) iCa ?? Mg 1.9, Phos 2.6 Lactate ?? LFT AST ?? AlkPhos ?? T Prot ?? ALK ?? Bili ?? Alb ?? D.Bili ?? Lab Trends: H/H Results from last 7 days Lab Units 04/02/25 0432 04/01/252 03/31/25 0222 HEMOGLOBIN g/dL 6.4* 7.6* 8.0* HEMATOCRIT % 19.0* 22.9* 24.3* INR Results from last 7 days Lab Units 03/29/258 03/29/25 1604 INR 1.0 1.0 Cr Results from last 7 days Lab Units 04/02/25 0432 04/01/25 0212 03/31/25 0222 CREATININE mg/dL 1.47* 1.67* 1.59* Medications reviewed. Vital signs reviewed. Labs reviewed. Radiography reviewed. CXR: small left apical residual space, left CT in place Assessment and Plan: Medical Problems Problem List * (Principal) Non-small cell cancer of left lung (CMS/HCC) Overview Signed 03/30/2025 3:17 PM by Scarlet Gamboa APRN 03/29/2025: Bronchoscopy, left VATS converted to thoracotomy, left upper lobectomy, mediastinal lymph node dissection, intercostal nerve blocks Pain control CKD (chronic kidney disease) stage 2, GFR 60-89 ml/min Essential hypertension Anemia Overview Signed 04/02/2025 9:07 AM by Scarlet Gamboa APRN 1 unit PRBC on 03/31 2units PRBC on 04/02 Monitor - transfuse as indicated Type 2 diabetes mellitus with stage 2 chronic kidney disease, without long-term current use of insulin (CMS/HCC) Microalbuminuria Tobacco use disorder Second hand smoke exposure Electrolyte abnormality Overview Signed 03/30/2025 3:18 PM by Scarlet Gamboa APRN Hypocalcemia Hypomagnesemia Hypophosphatemia Monitor - Replete as indicated Hyponatremia Overview Signed 03/30/2025 3:20 PM by Scarlet Gamboa APRN Monitor Present on Admission: Non-small cell cancer of left lung (CMS/HCC) Essential hypertension CKD (chronic kidney disease) stage 2, GFR 60-89 ml/min Type 2 diabetes mellitus with stage 2 chronic kidney disease, without long-term current use of insulin (CMS/HCC) Anemia Electrolyte abnormality Plan: - Keep chest tube to water seal - Pulm toilet/IS - Mobilize - Transfuse 2u PRBC -- Follow up CBC@1400 - Hold DVT PPX pending repeat CBC - PT/OT Scarlet Gamboa APRN Thoracic Surgery * Care Plan - Fitz Calle RN - 04/01/2025 12:21 PM EDT Problem: Adult Inpatient Plan of Care Goal: Plan of Care Review Outcome: Ongoing, Progressing Goal: Patient-Specific Goal (Individualized) Outcome: Ongoing, Progressing Goal: Absence of Hospital-Acquired Illness or Injury Outcome: Ongoing, Progressing Goal: Optimal Comfort and Wellbeing Outcome: Ongoing, Progressing Goal: Readiness for Transition of Care Outcome: Ongoing, Progressing Problem: Self-Care Deficit Goal: Improved Ability to Complete Activities of Daily Living Outcome: Ongoing, Progressing * Progress Notes - Ximena Aguilar MBBS - 04/01/2025 10:31 AM EDT Images from the original note were not included. [facility] Department of Surgery Section of Thoracic Surgery Progress Note 04/01/25 Cole Feliz JrParker History of Present Illness Cole Feliz Jr. is a 79 y.o. male 3 Days Post-Op Bronchoscopy, left VATS converted to thoracotomy, left upper lobectomy, mediastinal lymph node dissection, intercostal nerve blocks Procedures this admission 03/30/2025- Bronchoscopy, left VATS converted to thoracotomy, left upper lobectomy, mediastinal lymph node dissection, intercostal nerve blocks Events of last 24 hours Interval: Has air leak, but is going down.Otherwise doing well. IS at 1.5L.Ambulating in hallways. VS: AF, HDS Intake: 710 mL Output: 1830 mL, CT 70 Net: -1.1l Labs: WBC 6.25, Hgb 7.6, PLT: 163 Na 136, K 4.3, Cr 1.67 CXR: No acute changes. Micro: x Relevant review of systems was obtained as able and is negative unless stated above in HPI. Physical Exam: Visit Vitals BP 129/52 (BP Location: Right arm, Patient Position: Lying) Pulse 88 Temp 36.9 ??C (98.4 ??F) (Oral) Ht 1.778 m (5' 10 ) Wt 68.4 kg (150 lb 12.7 oz) SpO2 96% BMI 21.64 kg/m?? GENERAL: WD, WN, NAD EYES: No scleral icterus or conjunctivitis HENT: Atraumatic, normocephalic, nares patent, mucus membranes moist NECK: Supple, no JVD, no evidence of bruit bilaterally RESP/CHEST: CTA bilaterally CARD: regular rate and rhythm, normal S1 and S2, no murmur, rub, or gallop Extremities: No lower extremity edema present. No cyanosis or clubbing. Pedal pulses palpable +2. GI: soft, non-distended SKIN: No rash, sores, lesions or subcutaneous nodules. NEURO: AAOx4. Motor intact and no focal deficits PSYCH: Mood and affect congruent and appropriate to situation Intake/Output Summary (Last 24 hours) at 04/01/2025 1032 Last data filed at 04/01/2025 0140 Gross per 24 hour Intake 710 ml Output 1430 ml Net -720 ml Lines/Drains/Tubes: Patient Lines/Drains/Airways Status Active Airway None Output by Drain (mL) 03/30/25 0700 - 03/30/25 1859 03/30/25 1900 - 03/31/25 0659 03/31/25 07 - 03/31/25 1859 03/31/25 190 - 04/01/25 0659 04/01/25 07 - 04/01/25 1032 Requested LDAs do not have output data documented. Labs in last 18 hours: CBC WBC 6.25 Hb 7.6 (L) Plt 163 Hct 22.9 (L) ANC ?? INR ??, PTT ??, Anti-Xa ?? MCV 88 BMP Na 136 Cl 101 BUN 20 Glu 138 (H) K 4.3 Co2 24 Cr 1.67 (H) Ca 8.1 (L) iCa ?? Mg 2.4, Phos 2.5 Lactate ?? LFT AST ?? AlkPhos ?? T Prot ?? ALK ?? Bili ?? Alb ?? D.Bili ?? Lab Trends: H/H Results from last 7 days Lab Units 04/01/2521103/31/2522103/30/25 0405 HEMOGLOBIN g/dL 7.6* 8.0* 8.8* HEMATOCRIT % 22.9* 24.3* 25.8* INR Results from last 7 days Lab Units 03/29/25 1958 03/29/25 1604 INR 1.0 1.0 Cr Results from last 7 days Lab Units 04/01/2521103/31/2522103/30/25 1057 CREATININE mg/dL 1.67* 1.59* 1.64* Medications reviewed. Vital signs reviewed. Labs reviewed. Radiography reviewed. CXR: Assessment and Plan: Medical Problems Problem List * (Principal) Non-small cell cancer of left lung (CMS/HCC) Overview Signed 03/30/2025 3:17 PM by Scarlet Gamboa APRN 03/29/2025: Bronchoscopy, left VATS converted to thoracotomy, left upper lobectomy, mediastinal lymph node dissection, intercostal nerve blocks Pain control CKD (chronic kidney disease) stage 2, GFR 60-89 ml/min Essential hypertension Anemia Type 2 diabetes mellitus with stage 2 chronic kidney disease, without long-term current use of insulin (CMS/HCC) Microalbuminuria Tobacco use disorder Second hand smoke exposure Electrolyte abnormality Overview Signed 03/30/2025 3:18 PM by Scarlet Gamboa APRN Hypocalcemia Hypomagnesemia Hypophosphatemia Monitor - Replete as indicated Hyponatremia Overview Signed 03/30/2025 3:20 PM by Scarlet Gamboa APRN Monitor Present on Admission: Non-small cell cancer of left lung (CMS/HCC) Essential hypertension CKD (chronic kidney disease) stage 2, GFR 60-89 ml/min Type 2 diabetes mellitus with stage 2 chronic kidney disease, without long-term current use of insulin (CMS/HCC) Anemia Electrolyte abnormality Plan: Continue CT to WS Start Flomax Regular CC2 diet Edited by: Ximena Aguilar MBBS at 04/01/2025 1031 DUY [facility] Thoracic Surgery Cosigned by Lamont Whitley DO at 04/01/2025 2:11 PM EDT Associated attestation - Lamont Whitley DO - 04/01/2025 2:11 PM EDT I saw and evaluated the patient with the resident/fellow. I discussed the case with the resident/fellow and agree with the findings and plan as documented. * Progress Notes - Mahogany Stout, RN - 03/31/2025 1:25 PM EDT Case Management Adult Initial Progress Note Cole Feliz Jr. 79 y.o. male CSN: [id number] Admission: 03/29/2025 9:43 AM Primary Problem: Non-small cell cancer of left lung (CMS/HCC) Production [employer] reviewed chart and spoke with the patient at bedside to complete this Initial Case Management Assessment. PCP: Casa Phillips MD Emergency Contact: Extended Emergency Contact Information Primary Emergency Contact: Elliot Feliz Relation: Son Foundation Relations Manager needed? No Secondary Emergency Contact: Nora Feliz Relation: Daughter Foundation Relations Manager needed? No Insurance: Primary Visit Coverage Payer Plan Sponsor Code Group Number Group Name [facility] [place] [employer] [id number] Primary Visit Coverage Subscriber Subscriber ID Subscriber Name Subscriber SSN Subscriber Address [id number] [address] [id number] [address] [place] [address] Patient information: Primary Caregiver: Self Support System: Immediate family Daily Living Activities: Functional Status: Independent Living Arrangements: Children Type of Residence: Private residence, Single Level [address] [address] Current DME: Equipment Currently Used at Home: cane, straight, walker, rolling Current DME Provider: n/a Income Information: Income Source: Retired Income/Expense Information: Income meets expenses Current Resources Utilized: None Housing Circumstances-Z Codes: Housing Circumstances (select all that apply): None Applicable Patient Referred to: Financial Resources: (n/a) Anticipated Discharge Date: tbd Patient's Discharge Goal: Patient/Family Anticipates Transition to: home Assistance Available at Discharge: Availability of Care Givers (#Hours): 10-14 hours Discharge Transport: Transportation Anticipated: family or friend will provide Follow Up Transport: Transportation Needed to Follow up Appoinments: Family/Friend will Provide Home Health / Home Infusion / Outpatient Dialysis Services: Current DME Provider: n/a Living Will/Advance Directive/Power of Lime Mixer /Guardian: Have you reviewed your Advance Directive and is it valid for this stay?: Not applicable Advance Directive: Patient has advance directive, copy not in chart Advance Directive not in Chart: Copy requested from family Information Provided on Healthcare Directives: No Pre-existing DNR/DNI Order: No Patient Requests Assistance: No Additional Comments: RN CHERELLE met with patient at bedside for initial assessment and discuss dischargeplanning. Confirmed address on file. Patient lives with his daughter in a single level home. Patient states he was independent prior to admit. Patient states he has a cane and rolling walker. Denies HH/HD/O2. PCP is Casa Phillips. Patient has [employer] Medicare insurance and uses [facility] pharmacy. Family will assist and transport at discharge. Therapy recommending sub - acute rehab. Patient is agreeable. Notified SW-Eitan Linn to send out referrals. CM/ORIANA will continue to follow and assist. Mahogany Stout RN * Query Clarification Note - Scarlet Gamboa APRN - 03/31/2025 12:10 PM EDT Physician Clarification Based on the clinical indicators, if possible, please specify the most likely type of the documented anemia that is being evaluated and monitored. [] Anemia in CKD [] Acute blood loss anemia [x] Both acute blood loss anemia and anemia in CKD [] Other, please specify: This documentation will become part of the patient's medical record. * Query Clarification Note - Scarlet Gamboa APRN - 03/31/2025 12:10 PM EDT Physician Clarification Please review the following and provide your response below. After review and hospital course, please clarify which of the following most accurately represents the patient's renal status: [x]LINDSAY on CKD stage 2 [x]Due to hypovolemia []Due to other, please specify: []CKD stage 2 only []Other, please specify: This documentation will become part of the patient's medical record. * Progress Notes - Vishal Elkins MD - 03/31/2025 11:38 AM EDT Images from the original note were not included. [facility] Department of Surgery Section of Thoracic Surgery Progress Note 03/31/25 Cole Feliz Jr. History of Present Illness Cole Feliz Jr. is a 79 y.o. male 2 Days Post-Op Bronchoscopy, left VATS converted to thoracotomy, left upper lobectomy, mediastinal lymph node dissection, intercostal nerve blocks Procedures this admission 03/30/2025- Bronchoscopy, left VATS converted to thoracotomy, left upper lobectomy, mediastinal lymph node dissection, intercostal nerve blocks Events of last 24 hours Interval: Air leak. VS: AF, HDS Intake: 1.3L Output: CT 92 Net: +392 Labs: WBC 9.6, Hgb 8.8, PLT: 190 Na 134, K 5.8, Cr 1.41 CXR: Slight increase in size in the small left apical pneumothorax. Micro: x Relevant review of systems was obtained as able and is negative unless stated above in HPI. Physical Exam: Visit Vitals BP (!) 102/40 (BP Location: Right arm, Patient Position: Lying) Pulse 92 Temp 36.8 ??C (98.2 ??F) (Oral) Ht 1.778 m (5' 10 ) Wt 68.8 kg (151 lb 10.8 oz) SpO2 93% BMI 21.76 kg/m?? GENERAL: WD, WN, NAD EYES: No scleral icterus or conjunctivitis HENT: Atraumatic, normocephalic, nares patent, mucus membranes moist NECK: Supple, no JVD, no evidence of bruit bilaterally RESP/CHEST: CTA bilaterally CARD: regular rate and rhythm, normal S1 and S2, no murmur, rub, or gallop Extremities: No lower extremity edema present. No cyanosis or clubbing. Pedal pulses palpable +2. GI: soft, non-distended SKIN: No rash, sores, lesions or subcutaneous nodules. NEURO: AAOx4. Motor intact and no focal deficits PSYCH: Mood and affect congruent and appropriate to situation Intake/Output Summary (Last 24 hours) at 03/31/2025 1138 Last data filed at 03/31/2025 0800 Gross per 24 hour Intake 1000 ml Output 1180 ml Net -180 ml Lines/Drains/Tubes: Patient Lines/Drains/Airways Status Active Airway None Output by Drain (mL) 03/29/25 0700 - 03/29/25 1859 03/29/25 1900 - 03/30/25 0659 03/30/25 0700 - 03/30/25 1859 03/30/25 1900 - 03/31/25 0659 03/31/25 0700 - 03/31/25 1138 Requested LDAs do not have output data documented. Labs in last 18 hours: CBC WBC 7.84 Hb 8.0 (L) Plt 155 Hct 24.3 (L) ANC ?? INR ??, PTT ??, Anti-Xa ?? MCV 92 BMP Na 133 (L) Cl 102 BUN 21 Glu 153 (H) K 3.6 Co2 19 (L) Cr 1.59 (H) Ca 7.0 (L) iCa ?? Mg 3.1 (H), Phos 3.5 Lactate ?? LFT AST ?? AlkPhos ?? T Prot ?? ALK ?? Bili ?? Alb ?? D.Bili ?? Lab Trends: H/H Results from last 7 days Lab Units 03/31/252 03/30/25 0405 03/29/251957 HEMOGLOBIN g/dL 8.0* 8.8* 9.2* HEMATOCRIT % 24.3* 25.8* 27.7* INR Results from last 7 days Lab Units 03/29/25195703/29/25 1604 INR 1.0 1.0 Cr Results from last 7 days Lab Units 03/31/252 03/30/25 1057 03/30/25 0405 CREATININE mg/dL 1.59* 1.64* 1.41* Medications reviewed. Vital signs reviewed. Labs reviewed. Radiography reviewed. CXR: Assessment and Plan: Medical Problems Problem List * (Principal) Non-small cell cancer of left lung (CMS/HCC) Overview Signed 03/30/2025 3:17 PM by Scarlet Gamboa APRN 03/29/2025: Bronchoscopy, left VATS converted to thoracotomy, left upper lobectomy, mediastinal lymph node dissection, intercostal nerve blocks Pain control CKD (chronic kidney disease) stage 2, GFR 60-89 ml/min Essential hypertension Anemia Type 2 diabetes mellitus with stage 2 chronic kidney disease, without long-term current use of insulin ([facility]) Microalbuminuria Tobacco use disorder Second hand smoke exposure Electrolyte abnormality Overview Signed 03/30/2025 3:18 PM by Scarlet Gamboa APRN Hypocalcemia Hypomagnesemia Hypophosphatemia Monitor - Replete as indicated Hyponatremia Overview Signed 03/30/2025 3:20 PM by Scarlet Gamboa APRN Monitor Present on Admission: Non-small cell cancer of left lung (CMS/HCC) Essential hypertension CKD (chronic kidney disease) stage 2, GFR 60-89 ml/min Type 2 diabetes mellitus with stage 2 chronic kidney disease, without long-term current use of insulin ([facility]/HCC) Anemia Electrolyte abnormality Plan: [ ] OOBA, IS [ ] F/u CXR Replete calcium Blood for pressures CT to WS Start Flomax Regular CC2 diet Edited by: Vishal Elkins MD at 03/31/2025 1138 Vishal Elkins MD Thoracic Surgery Cosigned by Ирина Lopez MD at 03/31/2025 4:48 PM EDT Associated attestation - Ирина Lopez MD - 03/31/2025 4:48 PM EDT I saw and evaluated the patient with the resident/fellow. I discussed the case with the resident/fellow and agree with the findings and plan as documented. Water seal trial today * Care Plan - Nery Eason - 03/31/2025 10:20 AM EDT Problem: Adult Inpatient Plan of Care Goal: Plan of Care Review Outcome: Ongoing, Progressing Flowsheets (Taken 03/31/2025 1020) Progress: no change Plan of Care Reviewed With: patient Goal: Patient-Specific Goal (Individualized) Outcome: Ongoing, Progressing Goal: Absence of Hospital-Acquired Illness or Injury Outcome: Ongoing, Progressing Goal: Optimal Comfort and Wellbeing Outcome: Ongoing, Progressing Goal: Readiness for Transition of Care Outcome: Ongoing, Progressing * Progress Notes - DukeNiecy brarie R - 03/31/2025 10:02 AM EDT Physical Therapy Evaluation Patient Name: Cole Feliz Jr. Today's Date: 03/31/2025 PT Discharge Recommendations: Subacute rehab Equipment Recommended: Defer to facility History Cole Feliz Jr. is 79 y.o. male admitted 03/29/2025 for work-up of Non- small cell cancer of left lung (CMS/HCC). Problem List Active Hospital Problems Diagnosis Date Noted Electrolyte abnormality 03/30/2025 Hyponatremia 03/30/2025 Non-small cell cancer of left lung (CMS/HCC) 02/03/2025 Essential hypertension 03/26/2022 CKD (chronic kidney disease) stage 2, GFR 60-89 ml/min 03/26/2022 Type 2 diabetes mellitus with stage 2 chronic kidney disease, without long-term current use of insulin (CMS/HCC) 03/26/2022 Anemia 03/26/2022 Procedures 03/29/2025 Procedure(s): LEFT VATS LOBECTOMY coverted to open, Left thoracotomy, with medistinal lymph node disection and lypoma Past Medical History Patient has a past medical history of Arthritis, CAD (coronary artery disease), Diabetes (CMS/HCC),Hepatitis, High blood pressure, High cholesterol, Hyperlipidemia, Hypertension, and Type 2 diabetesmellitus. Past Surgical History Patient has a past surgical history that includes Cardiac catheterization; Colonoscopy; Coronary stent placement; and Tendon repair. Precautions Medical Precautions: Left side thoractomy precautions Subjective Hi. Pt and RN agreeable to PT services this date. Participants in Care Family/Caregiver Present: No Presentation Oxygen Therapy: None (Room air) Lines and Tubes: Intravenous access, Telemetry Chest Tube 1 Left Midaxillary 24 Fr (Active) Peripheral IV 03/29/25 Anterior;Right Forearm (Active) Peripheral IV 03/29/25 Left Hand (Active) Pre-Session: Supine, Head of bed elevated, Lines intact Post-Session: Sitting in chair, RN notified, Lines intact, Chair alarm, Call light in reach Home Living/Set-up Lives With: Adult, Daughter Home Type: House Home Adaptive Equipment: Cane, shower chair Home Layout: One level, Stairs to enter with rails Number of Stairs: 2 Bathroom: Tub/Shower: Tub/Shower combo, Shower chair Prior Level of Function Receives Help From: Daughter Level of Mobility: Ambulatory- household only Mobility Shipman: Independent gait without device History of Falls: No ADL Performance: Needs assistance Bathing: Needs device (shower chair) Upper Body Dressing: Independent Lower Body Dressing: Independent Grooming: Independent Toileting: Independent Eating: Independent Home Management Skills: Needs assist Patient/Family Goals to return home Objective Pain Pt endorsed surgical site pain, RN aware. Pt positioned for comfort at close of session. Delirium Screening Curtis Agitation Sedation Scale (RASS): Alert and calm Confusion Assessment Method-ICU (CAM-ICU/PCAM-ICU) Feature 1: Acute Onset or Fluctuating Course: Positive Feature 2: Inattention: Positive Feature 3: Altered Level of Consciousness: Negative Feature 4: Disorganized Thinking: Negative Overall CAM-ICU/PCAM-ICU: Negative Cognition Overall Cognitive Status: Within Functional Limits Arousal/Alertness: Delayed responses to stimuli Mood/Behavior: Alert, Flat affect, Distractible Orientation Level: Oriented X4 Single Step Commands: With increased time, With repetition Multi-Step Commands: With increased time, With repetition Method of Communication: Verbal Vision - Basic Assessment Patient Visual Report: Pt reporting dizziness when tracking into left visual field, not baseline. Delayed tracking into left visual field. Right Upper Extremity Examination RUE Assessment: Within Functional Limits Manual Muscle Testing - RUE: Within functional limits Sensation Light Touch: Right Upper Extremity: Intact Left Upper Extremity Examination LUE ROM Assessment LUE Assessment: Exceptions to WFL (SF: 120degrees, may be baseline or dressings limiting full ROM) Manual Muscle Testing - LUE Manual Muscle Testing - LUE: (SF: 2+/5 due to ROM deficits, otherwise WFL) Sensation Light Touch: Left Upper Extremity: Intact Right Lower Extremity Examination RLE ROM Assessment RLE Assessment: Within Functional Limits Manual Muscle Testing - RLE Manual Muscle Testing - RLE: Within functional limits Sensation Light Touch: Right Lower Extremity: Intact Left Lower Extremity Examination LLE Assessment: Within Functional Limits Manual Muscle Testing: Within functional limits Sensation Light Touch: Left Lower Extremity: Intact Bed Mobility Bed Mobility Exam: Scooting/Bridging Level of Shipman: Maximum assist (25% patient's effort) (to scoot to EOB while seated) Physical/Nonphysical Assist: Verbal Cues, Nonverbal cues (demo/gestures) Bed Mobility Exam: Supine to Sit Level of Shipman: Maximum assist (25% patient's effort) Physical/Nonphysical Assist: Verbal Cues, Nonverbal cues (demo/gestures), Additional assist utilized for safety, HOB elevated Transfers Transfer Exam: Sit to stand Level of Shipman: Moderate assist (50% patient's effort) Physical/Nonphysical Assist: Verbal Cues, Nonverbal cues (demo/gestures), Additional assist utilized for safety Transfer Exam: Stand to Sit Level of Shipman: Moderate assist (50% patient's effort) Physical/Nonphysical Assist: Verbal Cues, Nonverbal cues (demo/gestures), Additional assist utilized for safety Balance Static Sitting Balance Static Sitting-Level of Assistance: Standby assist Dynamic Sitting Balance Level of Assistance: Contact guard Static Standing Balance Static Standing-Level of Assistance: Minimum assistance Dynamic Standing Balance Dynamic Standing Level of Assistance: Moderate assistance Gait Training (16 minutes) Device: Rollator Apparatus: Chair follow Assistance: Minimum assistance (regressing to modA) Distance: 40 ft + 20 ft Gait Analysis: shuffling gait, inconsistent foot placement, difficulty advancing LLE, moderate forward trunk lean, decreased gait speed, difficulty managing rollator Gait Training Interventions: cues provided for upright posture, foot placement, LLE advancement, and safe use of rollator during ambulation Pt required cueing for safe navigation of obstacles in room/hallway during ambulation. Pt required one seated rest break during ambulation 2/2 pain and fatigue. Demo'd difficulty advancing LLE duringambulation-requiring frequent tactile and verbal cueing. After second bout of ambulation, demo'd mild bilateral knee buckling requiring prompt seated rest break. Further ambulation deferred. Delayed throughout, requiring increased time for motor planning and sequencing during session. Standardized Assessments Standardized Assessments Standardized Assessments: AMPAC 6-Clicks Mobility Assessment AMPAC 6-Clicks Mobility Assessment Difficulty patient has turning over in bed (including adjusting bedclothes, sheets, and blankets)?:A lot Difficulty patient has sitting down on and standing up from a chair with arms (wheelchair, bedside commode, etc.)?: A lot Difficulty patient has moving from lying on back to sitting on the side of the bed?: A lot How much help does the patient need moving to and from a bed to a chair (including a wheelchair)?: A lot How much help does the patient need to walk in hospital room?: A lot How much help does the patient need climbing 3-5 steps with a railing?: Unable [facility] 6-Clicks Mobility Assessment Total : 11 Assessment Pt requires physical assist with transfers/ambulation secondary to decreased strength, balance, motor control, and activity tolerance. VSS. Pt is a fall risk. Will progress mobility as appropriate. Pt would continue to benefit from skilled PT services to decrease fall risk and promote independence with functional mobility, in order to maximize potential level of function. Pt requires subacute rehab placement upon d/c as he currently requires physical assist with transfers/ambulation. Pt is unable to ambulate household distances at this time. Pt's family is unable to provide such physical assist upon d/c. Pt is a high fall risk and a high risk for readmission. Needs can be met at a lower level of care. Impairments: Decreased endurance, ventilation, and/or gas exchange, Impaired gait dynamics/performance, Impaired balance, Impaired functional mobility/transfers, Impaired locomotion, Pain, Impaired cognition/safety awareness, Impaired executive functioning, Impaired motor cordination/control Activity Limitations: Inability to sit independently, Inability to ambulate household distances, Inability to transfer independently, Inability to complete ADLs independently, Inability to ambulate independently, Inability to ambulate community distances Participation Restrictions: Self-care, Home management, Community leisure Activity Tolerance: Tolerates 10 - 20 min activity with multiple rests Evaluation/Treatment Tolerance: Patient limited by fatigue Diagnosis: impaired functional mobility Rehab Potential: Good, to achieve stated therapy goals Eval Complexity History Profile: 1 - 2 personal factors and/or comorbidities Clinical Presentation: Evolving clinical presentation with changing characteristics Clinical Decision Making: Moderate complexity PT Recommendations Discharge Destination: Subacute rehab Discharge Equipment: Defer to facility Plan Planned PT Interventions Balance training, Bed mobility training, Gait training, Transfer training, Functional Mobility PT Frequency 2 - 5 times per week PT Duration 2 weeks Goals PT GOAL DETAILS Time Frame PT Goal 1: Pt will perform supine<>sit transfers with SBA and HOB flat, no use of bed rails. 2 weeks PT Goal 2: Pt will perform sit to stand and bed to chair transfers with Tristan and LRD. 2 weeks PT Goal 3: Pt will ambulate >400ft with Tristan and LRD. 2 weeks PT Goal 4: Pt will safely ascend/descend 2 steps with SBA and one handrail. 2 weeks Written by Viktoria Duke on 03/31/25 at 12:23 PM. * Progress Notes - Sarah Montiel - 03/31/2025 10:02 AM EDT Occupational Therapy Evaluation Patient Name: Cole Feliz Jr. Today's Date: 03/31/2025 OT Discharge Recommendations: Subacute rehab Equipment Recommended: Rollator History Cole Feliz Jr. is 79 y.o. male admitted 03/29/2025 for work-up of Non- small cell cancer of left lung (CMS/HCC). Hospital Course 1. Non-small cell cancer of left lung (CMS/HCC) Procedures 03/29/2025 Procedure(s): LEFT VATS LOBECTOMY coverted to open, Left thoracotomy, with medistinal lymph node disection and lypoma Past Medical History Patient has a past medical history of Arthritis, CAD (coronary artery disease), Diabetes (CMS/HCC),Hepatitis, High blood pressure, High cholesterol, Hyperlipidemia, Hypertension, and Type 2 diabetesmellitus. Past Surgical History Patient has a past surgical history that includes Cardiac catheterization; Colonoscopy; Coronary stent placement; and Tendon repair. Precautions Medical Precautions: Left side thoractomy precautions Subjective I feel okay. Pt with some left sided deficits and initiation difficulties noted during session, see below for details. Team made aware of therapy concerns. Participants in Care Family/Caregiver Present: No Presentation Oxygen Therapy: None (Room air) Lines and Tubes: Intravenous access, Telemetry Chest Tube 1 Left Midaxillary 24 Fr (Active) Peripheral IV 03/29/25 Anterior;Right Forearm (Active) Peripheral IV 03/29/25 Left Hand (Active) Pre-Session: Supine, Head of bed elevated, Lines intact Post-Session: Sitting in chair, RN notified, Lines intact, Chair alarm, Call light in reach Home Living/Set-Up Lives With: Adult, Daughter Home Type: House Home Adaptive Equipment: Cane, shower chair Home Layout: One level, Stairs to enter with rails Number of Stairs: 2 Bathroom: Tub/Shower: Tub/Shower combo, Shower chair Prior Level of Function Receives Help From: Daughter Level of Mobility: Ambulatory- household only Mobility Shipman: Independent gait without device History of Falls: No ADL Performance: Needs assistance Bathing: Needs device (shower chair) Upper Body Dressing: Independent Lower Body Dressing: Independent Grooming: Independent Toileting: Independent Eating: Independent Home Management Skills: Needs assist Patient/Family Goals To get better and go home. Objective Pain Left side incisional pain- Un-rated RN aware, positioned for comfort at end of session. Delirium Screening Curtis Agitation Sedation Scale (RASS): Alert and calm Confusion Assessment Method-ICU (CAM-ICU/PCAM-ICU) Feature 1: Acute Onset or Fluctuating Course: Positive Feature 2: Inattention: Positive Feature 3: Altered Level of Consciousness: Negative Feature 4: Disorganized Thinking: Negative Overall CAM-ICU/PCAM-ICU: Negative Cognition Overall Cognitive Status: Within Functional Limits Arousal/Alertness: Delayed responses to stimuli Mood/Behavior: Alert, Flat affect, Distractible Single Step Commands: With increased time, With repetition Multi-Step Commands: With increased time, With repetition Method of Communication: Verbal Safety Judgment: Decreased awareness of need for assistance Awareness of Errors: Assistance required to identify errors made Deficit Awareness: Decreased awareness of deficits Attention Span: Attends with cues to redirect, Difficulty attending to directions Problem Solving: Assistance required to identify errors made, Assistance required to generate solutions Vision - Complex Assessment Patient Visual Report: Pt reporting dizziness when tracking into left visual field, not baseline. Delayed tracking into left visual field. Right Upper Extremity Examination RUE Assessment: Within Functional Limits Manual Muscle Testing - RUE: Within functional limits Light Touch: Right Upper Extremity: Intact Left Upper Extremity Examination LUE Assessment: Exceptions to WFL (SF: 120degrees, may be baseline or dressings limiting full ROM) Manual Muscle Testing - LUE: (SF: 2+/5 due to ROM deficits, otherwise WFL) Light Touch: Left Upper Extremity: Intact Right Lower Extremity Examination RLE Assessment: Within Functional Limits Manual Muscle Testing - RLE: Within functional limits Light Touch: Right Lower Extremity: Intact Left Lower Extremity Examination LLE Assessment: Within Functional Limits Manual Muscle Testing: Within functional limits Light Touch: Left Lower Extremity: Intact Perception/Coordination Perception Initiation: Moderate impairment Initiation Comment: Noted during bed mobility, sit to stands, and walking. Motor Planning: Moderate impairment Coordination Movements are Fluid and Coordinated: Yes Left Hand, Finger to Nose: Mild impairment Right Hand, Finger to Nose: Normal performance Fine Motor Coordination Examination Left Hand, Finger to Nose: Mild impairment Right Hand, Finger to Nose: Normal performance Left Hand Thumb/Finger Opposition Skills: Normal performance Right Hand Thumb/Finger Opposition Skills: Normal performance Left Hand, Manipulation of Objects: Normal performance Right Hand, Manipulation of Objects: Normal performance Left Hand, Diadochokinesis Skills: Normal perfomance Right Hand, Diadochokinesis Skills: Normal performance Bed Mobility Bed Mobility Exam: Scooting/Bridging Level of [place]: Maximum assist (25% patient's effort) (to scoot to EOB while seated) Physical/Nonphysical Assist: Verbal Cues, Nonverbal cues (demo/gestures) Bed Mobility Exam: Supine to Sit Level of [place]: Maximum assist (25% patient's effort) Physical/Nonphysical Assist: Verbal Cues, Nonverbal cues (demo/gestures), Additional assist utilized for safety, HOB elevated Transfers Transfer Exam: Sit to stand Level of [place]: Moderate assist (50% patient's effort) Physical/Nonphysical Assist: Verbal Cues, Nonverbal cues (demo/gestures), Additional assist utilized for safety Transfer Exam: Stand to Sit Level of [place]: Moderate assist (50% patient's effort) Physical/Nonphysical Assist: Verbal Cues, Nonverbal cues (demo/gestures), Additional assist utilized for safety Balance Static Sitting Balance Static Sitting-Level of Assistance: Standby assist Dynamic Sitting Balance Level of Assistance: Contact guard Static Standing Balance Static Standing-Level of Assistance: Minimum assistance Dynamic Standing Balance Dynamic Standing Level of Assistance: Moderate assistance Self-Care Interventions Self Care/Home Management (ADLs) Time Entry: 16 Self_Care Interventions: Pt educated on left side thoracotomy precautions prior to mobility and importance of carryover. Pt verbalized understanding but demonstrated fair(-) carryover stating he wasn't pulling that hard with mobility. Pt. participated in functional endurance tasks in preparation for high level ADL routines. Increased time, max verbal/tactile ceus required to initiate/sequence all mobility tasks this date. Pt with instances of freezing while walking requiring max cues to take longer strides with left LE specifically and for attention to task. Pt. completed 60ft navigation task at hallway level to simulate ADL's in home environment with min A and rollator. Pt requesting aseated rest break before completing further mobility. Pt completed sit to stand from recliner and unable to initiate or sequence taking steps with left LE. Pt with mild full body tremor and unable tospeak with therapist while standing, pt required mod A to return to seated position in recliner. OT monitored vital signs closely throughout session to assess for patient???s tolerance to treatment. Pt's BP largely unchanged but HR fluctuated between 101- 146bpm, increasing with activity. Additionaltime spent educating patient on ADLs with left side precautions and potential needs for AE/DME at discharge. Pt educated on role of OT, discharge recommendations, and expectations for mobility while inpatient. Pt verbalized understanding but would benefit from continued education to improve carryover. Standardized Assessments [facility] 6-Click Daily Activities Help from Other: Don/Doff Regular Lower Body Clothings: A lot Help From Other: Bathing: A lot Help From Other: Toileting: A lot Help From Other: Don/Doff Upper Body Clothings: Little Help From Other: Grooming: Little Help From Other: Eating Meals: None [facility] Click - Daily Activities Score: 16 Assessment In addition to OT evaluation, pt participated in OT session with a focus on ADL retraining and functional endurance. Pt tolerated session with fair(-) energy for task and impaired cognition. Pt is most limited by endurance, cognition, and pain. Pt would benefit from continued skilled OT services toaddress AE/DME training, activity tolerance, and overall muscle power needed for increased independence with ADLs and functional mobility. OT Findings: Impaired ADL performance, Impaired IADL performance, Decreased endurance/ventilation/gas exchange, Impaired functional mobility, Impaired balance, Impaired judgment during ADL, Impaired cognition, Impaired attention, Impaired vision/visual procesing, Impaired executive function, Decreased gross motor control/coordination, Impaired postural/trunk control, Impaired motor planning Evaluation/Treatment Tolerance: Patient limited by fatigue, Patient limited by pain Rehab Potential: Fair, will monitor progress closely Barriers to Discharge: Comorbidities, Ability to acquire knowledge Eval Complexity Occupational Profile: Expanded review of medical/therapy records and additional review of physical,cognitive, or psychosocial history Performance Deficits: Activities of daily living (ADLs), Instrumental activities of daily living (IADLs), Body functions, Body structures, Motor skills, Process skills, Physical, Personal Clinical Decision Making: Moderate Overall Eval complexity: Moderate OT Recommendations Discharge Destination: Subacute rehab Discharge Equipment: Rollator Plan Planned OT Interventions IADL retraining, Balance training, Bed mobility Training, ADL retraining, Strengthening, Transfer training, Functional mobility, Caregiver education, Cognitive retraining OT Frequency 2 - 5 times per week OT Duration 2 weeks Goals OT GOAL DETAILS Time Frame OT Goal 1: Pt will complete total body dressing skills with SBA and appropriate adaptive device. 2 weeks OT Goal 2: Pt will complete toileting skills with SBA and appropriate adaptive device. 2 weeks OT Goal 3: Pt will complete functional transfers with SBA and appropriate adaptive device to increase independence with toilet transfers. 2 weeks OT Goal 4: Pt will independently adhere to left sided thoracotomy precautions during all ADL tasks and functional transfers. 2 weeks Written by Sarah Montiel on 03/31/25 at 1:26 PM. * Care Plan - Mart Garcia RN - 03/30/2025 5:24 PM EDT Problem: Adult Inpatient Plan of Care Goal: Plan of Care Review Outcome: Ongoing, Progressing Flowsheets (Taken 03/30/2025 1724) Progress: no change Plan of Care Reviewed With: patient Goal: Patient-Specific Goal (Individualized) Outcome: Ongoing, Progressing Flowsheets (Taken 03/30/2025 1600) Patient/Family-Specific Goals (Include Timeframe): patient will be out of bed and in his chair for at least 2 hours during day shift today. Individualized Care Needs: mobility Anxieties, Fears or Concerns: none stated Goal: Absence of Hospital-Acquired Illness or Injury Outcome: Ongoing, Progressing Goal: Optimal Comfort and Wellbeing Outcome: Ongoing, Progressing Goal: Readiness for Transition of Care Outcome: Ongoing, Progressing * Progress Notes - Vishal Elkins MD - 03/30/2025 9:14 AM EDT Images from the original note were not included. [facility] Department of Surgery Section of Thoracic Surgery Progress Note 03/30/25 Cole Feliz Jr. History of Present Illness Cole Feliz Jr. is a 79 y.o. male 1 Day Post-Op Bronchoscopy, left VATS converted to thoracotomy, left upper lobectomy, mediastinal lymph node dissection, intercostal nerve blocks Procedures this admission 03/30/2025- Bronchoscopy, left VATS converted to thoracotomy, left upper lobectomy, mediastinal lymph node dissection, intercostal nerve blocks Events of last 24 hours Interval: Hypotensive in PACU. Hypomagnesemia, repleted. This morning the patient was hyperkalemic,calcium and insulin per protocol with follow-up K levels. He continues to be intermittently hypotensive this morning but is mentating well; we will judiciously bolus him with 500cc LR. VS: AF, HDS Intake: 1.3L Output: CT 92 Net: +392 Labs: WBC 9.6, Hgb 8.8, PLT: 190 Na 134, K 5.8, Cr 1.41 CXR: Slight increase in size in the small left apical pneumothorax. Micro: x Relevant review of systems was obtained as able and is negative unless stated above in HPI. Physical Exam: Visit Vitals BP 89/58 Pulse 78 Temp 37.1 ??C (98.7 ??F) Wt 68 kg (150 lb) SpO2 96% BMI 21.52 kg/m?? GENERAL: WD, WN, NAD EYES: No scleral icterus or conjunctivitis HENT: Atraumatic, normocephalic, nares patent, mucus membranes moist NECK: Supple, no JVD, no evidence of bruit bilaterally RESP/CHEST: CTA bilaterally CARD: regular rate and rhythm, normal S1 and S2, no murmur, rub, or gallop Extremities: No lower extremity edema present. No cyanosis or clubbing. Pedal pulses palpable +2. GI: soft, non-distended SKIN: No rash, sores, lesions or subcutaneous nodules. NEURO: AAOx4. Motor intact and no focal deficits PSYCH: Mood and affect congruent and appropriate to situation Intake/Output Summary (Last 24 hours) at 03/30/2025 0933 Last data filed at 03/30/2025 0800 Gross per 24 hour Intake 1600 ml Output 988 ml Net 612 ml Lines/Drains/Tubes: Patient Lines/Drains/Airways Status Active Airway None Output by Drain (mL) 03/28/25 07 - 03/28/25 18503/28/25 1900 - 03/29/25 0659 03/29/25 0700 - 03/29/25 1859 03/29/25 1900 - 03/30/25 0659 03/30/25 0700 - 03/30/25 0933 Requested LDAs do not have output data documented. Labs in last 18 hours: CBC WBC 9.64 Hb 8.8 (L) Plt 190 Hct 25.8 (L) ANC 7.00 (H) INR 1.0, PTT 28, Anti-Xa ?? MCV 89 BMP Na 134 (L) Cl 101 BUN 18 Glu 207 (H) K 5.8 (H) Co2 20 (L) Cr 1.41 (H) Ca 7.7 (L) iCa 4.4 (L) Mg 1.4 (L), Phos 3.0 Lactate 0.8 LFT AST ?? AlkPhos ?? T Prot ?? ALK ?? Bili ?? Alb ?? D.Bili ?? Lab Trends: H/H Results from last 7 days Lab Units 03/30/25 0405 03/29/25195703/29/25 1604 HEMOGLOBIN g/dL 8.8* 9.2* 10.5* HEMATOCRIT % 25.8* 27.7* 31.1* INR Results from last 7 days Lab Units 03/29/25195703/29/25 1604 INR 1.0 1.0 Cr Results from last 7 days Lab Units 03/30/255 03/29/251957 CREATININE mg/dL 1.41* 1.08 1.08 Medications reviewed. Vital signs reviewed. Labs reviewed. Radiography reviewed. CXR: Assessment and Plan: Medical Problems Problem List * (Principal) Non-small cell cancer of left lung (CMS/HCC) CKD (chronic kidney disease) stage 2, GFR 60-89 ml/min Essential hypertension Anemia Type 2 diabetes mellitus with stage 2 chronic kidney disease, without long-term current use of insulin (CMS/HCC) Microalbuminuria Tobacco use disorder Second hand smoke exposure Present on Admission: Non-small cell cancer of left lung (CMS/HCC) Plan: [ ] F/u potassium [ ] Void trial 12:30 [ ] F/u RFP @ 12 Start Flomax 500cc LR bolus Repaet RFP Regular diet Continue CT to - 20 sxn Edited by: Vishal Elkins MD at 03/30/2025 0913 Vishal Elkins MD Thoracic Surgery Cosigned by Ирина Lopez MD at 03/31/2025 4:46 PM EDT Associated attestation - Ирина Lopez MD - 03/31/2025 4:46 PM EDT I saw and evaluated the patient with the resident/fellow. I discussed the case with the resident/fellow and agree with the findings and plan as documented. * Anesthesia PACU Signout - Casa Wright DO - 03/29/2025 10:24 PM EDT Patient: Cole Feliz Jr. Anesthesia Type: general Vitals Value Taken Time BP 92/54 03/29/25 22:00 Temp 36.2 ??C (97.1 ??F) 03/29/25 22:23 Pulse 89 03/29/25 22:23 Resp 15 03/29/25 22:23 SpO2 97 % 03/29/25 22:23 Vitals shown include unfiled device data. Anesthesia PACU Signout Patient location during evaluation: PACU Patient participation: complete - patient participated Level of consciousness: awake Pain management: adequate (pain score 0-3) Airway patency: natural airway Hydration status: acceptable PONV: none Cardiovascular status: acceptable and hemodynamically stable Respiratory status: acceptable, nasal cannula and nonlabored ventilation Discharge Disposition: admit to inpatient unit Comments: Patient is s/p Procedure(s) and Anesthesia Type: * LEFT VATS LOBECTOMY coverted to open, Left thoracotomy, with medistinal lymph node disection and lypoma - General. Patient remains HDS on 2L NC, neurologically appropriate, pain is controlled, and tolerating PO w/oN/V. Patient is appropriate for discharge from PACU to inpatient unit for continued postop care. Cosigned by Wyatt Armstrong DO at 03/30/2025 5:23 AM EDT Associated attestation - Wyatt Armstrong DO - 03/30/2025 5:23 AM EDT Signature only. * Op Note - Ирина Lopez MD - 03/29/2025 2:16 PM EDT Operative Note Date: 03/29/25 Location: [facility] Name: Cole Feliz , : 1945, Diagnoses: Pre-op Diagnosis Non-small cell cancer of left lung (CMS/HCC) Post-op Diagnosis Non-small cell cancer of left lung (CMS/HCC) Procedure(s): Bronchoscopy, left VATS converted to thoracotomy, left upper lobectomy, mediastinal lymph node dissection, intercostal nerve blocks Attending Surgeon(s): * Ирина Lopez - Primary Government Gauger(s): * Carl Hamlin MD - Resident - Assisting Anesthesia: General ASA: III Specimens ID Source Frozen? 1 Lymph Node (specify site): No Description: level 5 lymph node x1 2 Lymph Node (specify site): No Description: level 6 lymph node x1 3 Lymph Node (specify site): No Description: level 10 lymph node x8 4 Lymph Node (specify site): No Description: Level 7 lymph node x3 5 Lung, Left Upper Lobe Yes Description: bronchial margin 6 Lung, Left Upper Lobe No Description: remaining left upper lobe 7 Other (specify site) No Description: lipoma A Blood, Arterial Description: ABG B Blood, Arterial C Blood, Arterial Indications for procedure: This is an 79 y.o. year old male with a biopsy proven malignancy in the left upper lobe. They are taken to the operating room for resection for staging and treatment. Operative Procedure: The patient was taken to the operating room and placed on the table in the supine position. After induction of general endotracheal anesthesia, flexible fiberoptic bronchoscopy was performed. This demonstrated normal endobronchial anatomy to the subsegmental level bilaterally without visible tumor.The patient was then turned to the right lateral decubitus position with the left chest elevated using the beanbag. The left chest was prepped and draped in the usual sterile fashion. A standard thoracoscopic camera port was created in the 8th intercostal space posterior axillary line. A working incision 3.5 cm in length was created in the 5th intercostal space anterior axillary line. Upon entering the chest there was no evidence of pleural nodularity or effusion. There were extensive adhesionsbetween the upper lobe and the chest wall superiorly as well as along the mediastinum. These were taken down with electrocautery to expose the area of tumor anteriorly near the apex where the lung was adherent to the subclavian artery. The plane between the two was carefully developed with sharp and blunt dissection and the lung was able to be freed in the adventitial plane of the artery without damage. Once the lung was fully mobilized attention was turned to upper lobectomy. The lung was reflected anteriorly and the posterior pleural reflection opened over the upper lobe bronchus and pulmonary artery until the takeoff of the posterior arterial branches were visualized. The lung was then reflected posteriorly and the anterior pleural reflection opened over the superior pulmonary vein down to the level of the inferior vein which was separately identified. The superior vein was encircled with aHarken clamp and divided with an endo-JAXON 45 mm leggett load. The vein was unusually adherent to the surrounding tissues and was very difficult to dissect safely. This exposed the underlying pulmonary artery and bronchus. There was extensive inflammatory/fibrotic tissue around the artery and airway which could not be safely mobilized, therefore decision was made to convert to thoracotomy. A 10-cm lateral serratus-sparing thoracotomy was created entering the chest in the 6th intercostal space. Therewas a 5 cm x 5 cm lipoma between the latissimus and serratus in the line of the planned thoracotomy. This was excised completely with electrocautery and sent for permanent pathology. Chest wall retractors were placed and chest explored. The airway and artery were still persistently adherent even open, so dissection was begun in the fissure. The anterior fissure was undermined from the anterior hilum to the pulmonary artery and divided with an endo-JAXON 60 mm purple load and two reloads. There was a very adherent lymph node between the point of dissection in the fissure and the artery itself this required sharp dissection to mobilize. Once the lateral surface of the interlobar artery was exposed, dissection continued posteriorlyto identify the superior segment artery. A tunnel was then created just posterior to the superior segment artery underneath the posterior fissure to exit at the posterior hilum. The posterior fissurewas then completed with an endo-JAXON 60 mm purple load and reload. This exposed a lingular artery coming off the pulmonary artery in the fissure. It was encircled and divided with an endo-JAXON 30 mm lopez load. Dissection then continued proximally along the pulmonary artery identifying and dividing 3 more arterial branches to the upper lobe. There were several densely adherent lymph nodes around theupper lobe airway which were carefully dissected free using sharp and blunt dissection and removed as level 10 lymph nodes for permanent pathology. Removing these nodes revealed two additional lingular branches which were encircled and divided together with an endo-JAXON 30 mm white load. Attention was then turned to the upper lobe bronchus. All remaining lymph nodes and soft tissue were then cleared off the upper lobe airway to clearly define the space between the upper and lobe lobe branches . The upper lobe bronchus was stapled with TA 60 mm green load and cut sharply on the specimen side ofthe staple line. The specimen was removed from the chest. Frozen section of the bronchial margin showed no evidence of malignancy. Attention was then turned to mediastinal lymph node dissection. The lower lobe was retracted posteriorly and the aortopulmonary window was opened and level 5 and 6 lymph nodes sent for permanent pathology. The lower lobe was reflected anteriorly and the subcarinal space opened. Level 7 lymph nodes were sent for permanent pathology. The entire chest was then inspected for hemostasis.When this was felt to be adequate, intercostal nerve blocks were placed using the cryoprobe at eachof 5 intercostal spaces under direct visualization. A single 24 Niuean chest tube was placed through the camera port to lie posteriorly to the apex. The lung was then reinflated and felt to adequately fill the pleural space. The ribs were reapproximated using two figure of eight sutures of #2 vicryl passed around the superior rib and through holes drilled in the inferior rib to prevent compression of the inferior neurovascular bundle. Serratus was tacked back into place using 0 vicryl. #1 vicryl was used for closure of the latissimus. 2-0 and 3-0 vicryl were used for subcutaneous and subcuticular suture. The anterior working incision was closed using 0 vicryl for pectoralis. 2-0 and 3-0 vicryl were used for subcutaneous and subcuticular suture. The patient tolerated the procedure well andwas transferred from the operating room to the post anesthesia care unit in stable condition. I waspresent throughout the entire procedure. Submitted by: Ирина Lopez MD - 03/29/2025 * H&P - Carl aHmlin MD - 03/29/2025 12:55 PM EDT Images from the original note were not included. Subjective Chief complaint NSCLC OF LEFT UPPER LOBE History Of Present Illness Cole Feliz Jr. is a 79 y.o. male presenting with a biopsy proven NSCLC of the left upper lobe. Patient was last seen in our clinic on 02/23/25. HPI from 02/23/25 Clinic Note included below: Cole Feliz Jr. is a 79 y.o. [...] lymph node involvement or distant metastasis. He is asymptomatic and denies anysob, cough, hemoptysis, fevers, weight loss. He ambulates with a cane and will only have sob w/ exertion if walking uphill or climbing stairs. Medical/Surgical/Social/Family History Past Medical History[1] Surgical History[2] Social History[3] Family History[4] Travel History Relevant International Travel History: Travel Screening No screening recorded since 03/28/25 0943 Travel History Travel since 02/26/25 No documented travel since 02/26/25 Relevant Domestic Travel History: N/A Immunizations Not reviewed Allergies Cetirizine Medications Current Medications[5] Objective Review of Systems Negative except as per HPI Physical Exam Last Recorded Vitals Weight 68 kg (150 lb). CONSTITUTIONAL: NAD, A&O x3 HEAD: Normocephalic, atraumatic; EYES: EOMI NECK: Supple, No JVD; trachea midline CARDIAC: Regular rate and rhythm CHEST/PULM: Symmetrical chest wall rise; NWOB GASTROINTESTINAL: Soft and compressible; NT, ND; No peritoneal signs GENITOURINARY: Voiding spontaneously EXTREMITIES: Normal ROM in BUE/BLE SKIN: Otherwise warm and dry NEUROLOGIC: No focal deficits; motor and sensation intact PSYCH: Appropriate mood and responses Results Review {Vanishing Link Review Results :[id number] I have reviewed the latest lab and imaging results. Assessment & Plan Cole Feliz Jr. Is a 79 y.o. male who presents today for surgical intervention of NSCLC of the left upper lobe. - Consent obtained. To OR today for a left upper lobectomy with mediastinal lymph node dissection. Medically Ready for Discharge:Anticipated in 2-4 Days [1] Past Medical History: Diagnosis Date Arthritis CAD (coronary artery disease) Diabetes (CMS/HCC) Hepatitis High blood pressure High cholesterol Hyperlipidemia Hypertension Type 2 diabetes mellitus [2] Past Surgical History: Procedure Laterality Date CARDIAC CATHETERIZATION COLONOSCOPY CORONARY STENT PLACEMENT TENDON REPAIR [3] Social History Tobacco Use Smoking status: Every Day Types: Cigars Start date: 1956 Smokeless tobacco: Never Vaping Use Vaping status: Never Used Substance Use Topics Alcohol use: Yes Alcohol/week: 14.0 standard drinks of alcohol Types: 14 Standard drinks or equivalent per week Comment: 2 oz crown royal daily Drug use: Never [4] Family History Problem Relation Name Age of Onset Cancer Mother Lung cancer Mother Cancer Father Lung cancer Father Diabetes Other Anesthesia problems Neg Hx Malig Hyperthermia Neg Hx [5] Current Facility-Administered Medications Medication Dose Route Frequency Provider Last Rate Last Admin lactated Ringer's infusion 100 mL/hr Intravenous Once Laquita Brand MD lidocaine (Xylocaine) 1 % injection 0.5 mL 0.5 mL Injection Once PRN Robert Santos MD sodium chloride 0.9 % flush 10 mL 10 mL Intravenous q12h Laquita Brand MD And sodium chloride 0.9 % flush 10 mL 10 mL Intravenous PRN Laquita Brand MD sodium chloride 0.9 % flush 10 mL 10 mL Intravenous q12h Robert Santos MD And sodium chloride 0.9 % flush 10 mL 10 mL Intravenous PRN Robert Santos MD sodium chloride 0.9 % flush 10 mL 10 mL Intravenous q12h Robert Santos MD And sodium chloride 0.9 % flush 10 mL 10 mL Intravenous PRN Robert Santos MD Cosigned by Ирина Lopez MD at 03/29/2025 1:09 PM EDT Associated attestation - Ирина Lopez MD - 03/29/2025 1:09 PM EDT I saw and evaluated the patient with the resident/fellow. I discussed the case with the resident/fellow and agree with the findings and plan as documented. * Preprocedure Instructions - Melva Cassidy APRN - 03/18/2025 8:52 AM EDT Home Medication Instructions Current Medications Medication Instructions aspirin 81 MG EC tablet Take morning of surgery clopidogrel (Plavix) 75 MG tablet Hold 5 days before surgery per surgeon metFORMIN (Glucophage) 1000 MG tablet Hold 48 hours before surgery General Preoperative Instructions You will be called the business day before surgery with your arrival time No food after midnight the night before surgery. You can drink clear liquids up to 2 hours prior to arrival unless instructed by your surgeon otherwise. Please do not try to get all your hydration in 2 hours prior to arrival. Start the day before surgery drinking more than you usually would. After midnight, you can have clear liquids only (water,apple juice, Gatorade) up to 2 hours prior to arrival. No coffee or tea. No alcohol or smoking prior to surgery Arrive on time to avoid delays Parking/Registration procedure explained You MUST have a responsible adult available for transport to and from hospital Visitation policy for the day of surgery reviewed Bring insurance card, photo ID, along with power of deputy prosecuting attorney, guardianship or advanced directives if applicable Do not bring money, jewelry or other valuables Hibiclens bathing instructions reviewed if applicable Notify surgeon of fever, illness, any changes or if you decide not to have surgery Diabetes Instructions (If applicable) Take diabetes medication as instructed You may have up to 4 ounces of apple juice 2 hours prior to arrival for surgery for low glucose * PAT Phone Note - Melva Cassidy APRN - 03/18/2025 8:35 AM EDT DALLAS Feliz Jr. is a 79 y.o. male who presents with Pre-op Diagnosis * Non-small cell cancer of left lung (CMS/HCC) [C34.92] now scheduled for LEFT VATS LOBECTOMY (Left)with Ирина Lopez MD on 03/29/2025. PAT F/U APT. Please see comprehensive PAT evaluation from: 01/20/25. The patient denies any changes to their health history since their previous surgery. Denies any recent URIs or changes to cardiac Hx. Medications reviewed. Questions addressed. Most recent G.A: 01/28/25: Final airway type: endotracheal airway Successful airway: ETT Cuffed: yes Successful intubation technique: direct laryngoscopy Adjuncts used in placement: intubating stylet and cricoid pressure Endotracheal tube insertion site: oral Blade: Lyla ETT size (mm): 8.5 Cormack-Lehane Classification: grade I - full view of glottis Placement verified by: chest auscultation and capnometry Measured from: lips ETT to lips (cm): 23 Additional Comments Atraumatic. No change to dentition. Past Medical History[1] Family History[2] Social History[3] SURGICAL HISTORY: Surgical History[4] Allergies[5] MEDICATIONS: Current Medications[6] Melva Cassidy APRN [1] Past Medical History: Diagnosis Date Arthritis CAD (coronary artery disease) Diabetes (CMS/HCC) Hepatitis High blood pressure High cholesterol Hyperlipidemia Hypertension Type 2 diabetes mellitus [2] Family History Problem Relation Name Age of Onset Cancer Mother Lung cancer Mother Cancer Father Lung cancer Father Diabetes Other Anesthesia problems Neg Hx Malig Hyperthermia Neg Hx [3] Social History Tobacco Use Smoking status: Every Day Types: Cigars Start date: 1956 Smokeless tobacco: Never Vaping Use Vaping status: Never Used Substance Use Topics Alcohol use: Yes Alcohol/week: 14.0 standard drinks of alcohol Types: 14 Standard drinks or equivalent per week Comment: 2 oz crown royal daily Drug use: Never [4] Past Surgical History: Procedure Laterality Date CARDIAC CATHETERIZATION COLONOSCOPY CORONARY STENT PLACEMENT TENDON REPAIR [5] Allergies Allergen Reactions Cetirizine Other - please document in the comment field and Unknown - Patient states they do not know rxn details cetirizine [6] No current facility-administered medications for this encounter. Current Outpatient Medications: aspirin, Take 1 tablet by mouth daily. clopidogrel, Take by mouth in the morning. metFORMIN, Take 1 tablet by mouth 2 (two) times a day. documented in this encounter Plan of Treatment Upcoming Encounters Date Type Department Care Team (Late st Contact Info) Description 07/06/2025 10:40 AM EDT Office Visit [facility] [address] [facility], [address] [place] [address] Nikolai Naranjo MD [address] [facility] [address] [place] [address] documented as of this encounter Procedures Procedure Name Priority Date/Time Associated Diagnosis Comments POCT GLUCOSE METER UNSOLICITED RESULTS Routine 04/04/2025 8:34 AM EDT XR CHEST 1 VIEW Routine 04/04/2025 5:20 AM EDT CBC W/O DIFFERENTIAL Routine 04/04/2025 2:19 AM EDT MAGNESIUM, PLASMA Routine 04/04/2025 2:1 9 AM EDT RENAL FUNCTION PANEL, PLASMA Routine 04/04/2025 2:19 AM EDT POCT GLUCOSE METER UNSOLICITED RESULTS Routine 04/03/2025 8:25 PM EDT POCT GLUCOSE METER UNSOLICITED RESULTS Routine 04/03/2025 5:27 PM EDT XR CHEST 1 VIEW Timed 04/03/2025 1:09 PM EDT POCT GLUCOSE METER UNSOLICITED RESULTS Routine 04/03/2025 12:15 PM EDT POCT GLUCOSE METER UNSOLICITED RESULTS Routine 04/03/2025 8:46 AM EDT OXYGEN THERAPY Routine 04/03/2025 8:00 AM EDT XR CHEST 1 VIEW Routine 04/03/2025 5:53 AM EDT CBC W/O DIFFERENTIAL Routine 04/03/2025 3:45 AM EDT MAGNESIUM, PLASMA Routine 04/03/2025 3:4 5 AM EDT RENAL FUNCTION PANEL, PLASMA Routine 04/03/2025 3:45 AM EDT POCT GLUCOSE METER UNSOLICITED RESULTS Routine 04/02/2025 8:16 PM EDT OXYGEN THERAPY Routine 04/02/2025 8:00 PM EDT POCT GLUCOSE METER UNSOLICITED RESULTS Routine 04/02/2025 5:20 PM EDT CBC W/O DIFFERENTIAL Routine 04/02/2025 3:02 PM EDT TRANSFUSE RED BLOOD CELLS Routine 04/02/2025 12:57 PM EDT POCT GLUCOSE METER UNSOLICITED RESULTS Routine 04/02/2025 12:28 PM EDT INSERT PERIPHERAL IV Routine 04/02/2025 10:35 AM EDT TRANSFUSE RED BLOOD CELLS Routine 04/02/2025 10:17 AM EDT POCT GLUCOSE METER UNSOLICITED RESULTS Routine 04/02/2025 8:31 AM EDT OXYGEN THERAPY Routine 04/02/2025 8:00 AM EDT PREPARE RBC Routine 04/02/2025 7:58 AM EDT TYPE AND SCREEN Routine 04/02/2025 6:36 AM EDT XR CHEST 1 VIEW Routine 04/02/2025 6:08 AM EDT CBC W/O DIFFERENTIAL Routine 04/02/2025 4:32 AM EDT MAGNESIUM, PLASMA Routine 04/02/2025 4:3 2 AM EDT RENAL FUNCTION PANEL, PLASMA Routine 04/02/2025 4:32 AM EDT POCT GLUCOSE METER UNSOLICITED RESULTS Routine 04/01/2025 8:14 PM EDT OXYGEN THERAPY Routine 04/01/2025 8:00 PM EDT POCT GLUCOSE METER UNSOLICITED RESULTS Routine 04/01/2025 5:26 PM EDT POCT GLUCOSE METER UNSOLICITED RESULTS Routine 04/01/2025 12:49 PM EDT POCT GLUCOSE METER UNSOLICITED RESULTS Routine 04/01/2025 8:43 AM EDT OXYGEN THERAPY Routine 04/01/2025 8:00 AM EDT XR CHEST 1 VIEW Routine 04/01/2025 5:41 AM EDT CBC W/O DIFFERENTIAL Routine 04/01/2025 2:12 AM EDT MAGNESIUM, PLASMA Routine 04/01/2025 2:1 2 AM EDT RENAL FUNCTION PANEL, PLASMA Routine 04/01/2025 2:12 AM EDT POCT GLUCOSE METER UNSOLICITED RESULTS Routine 03/31/2025 8:19 PM EDT OXYGEN THERAPY Routine 03/31/2025 8:00 PM EDT POCT GLUCOSE METER UNSOLICITED RESULTS Routine 03/31/2025 5:24 PM EDT XR CHEST 1 VIEW Timed 03/31/2025 1:27 PM EDT TRANSFUSE RED BLOOD CELLS Routine 03/31/2025 1:12 PM EDT POCT GLUCOSE METER UNSOLICITED RESULTS Routine 03/31/2025 12:31 PM EDT POCT GLUCOSE METER UNSOLICITED RESULTS Routine 03/31/2025 9:08 AM EDT PREPARE RBC Routine 03/31/2025 9:02 AM EDT OXYGEN THERAPY Routine 03/31/2025 8:00 AM EDT XR CHEST 1 VIEW Routine 03/31/2025 6:04 AM EDT CBC W/O DIFFERENTIAL Routine 03/31/2025 2:22 AM EDT MAGNESIUM, PLASMA Routine 03/31/2025 2:2 2 AM EDT RENAL FUNCTION PANEL, PLASMA Routine 03/31/2025 2:22 AM EDT POCT GLUCOSE METER UNSOLICITED RESULTS Routine 03/30/2025 8:28 PM EDT OXYGEN THERAPY Routine 03/30/2025 8:00 PM EDT POCT GLUCOSE METER UNSOLICITED RESULTS Routine 03/30/2025 5:20 PM EDT XR CHEST 1 VIEW Timed 03/30/2025 4:46 PM EDT POCT GLUCOSE METER UNSOLICITED RESULTS Routine 03/30/2025 12:48 PM EDT MAGNESIUM, PLASMA Add-On 03/30/2025 10: 57 AM EDT RENAL FUNCTION PANEL, PLASMA STAT 03/30/2025 10:57 AM EDT POCT GLUCOSE METER UNSOLICITED RESULTS Routine 03/30/2025 10:56 AM EDT POCT GLUCOSE METER UNSOLICITED RESULTS Routine 03/30/2025 9:38 AM EDT ECG ADULT STAT 03/30/2025 8:37 AM EDT POCT GLUCOSE METER UNSOLICITED RESULTS Routine 03/30/2025 8:10 AM EDT OXYGEN THERAPY Routine 03/30/2025 8:00 AM EDT CBC W/O DIFFERENTIAL Routine 03/30/2025 4:05 AM EDT MAGNESIUM, PLASMA Routine 03/30/2025 4:0 5 AM EDT RENAL FUNCTION PANEL, PLASMA Routine 03/30/2025 4:05 AM EDT XR CHEST 1 VIEW Routine 03/30/2025 1:35 AM EDT XR CHEST 1 VIEW STAT 03/29/2025 8:05 PM EDT OXYGEN THERAPY Routine 03/29/2025 8:00 PM EDT CREATININE, PLASMA Timed 03/29/2025 7: 58 PM EDT PROTHROMBIN TIME(PT) / INR STAT 03/29/2025 7:58 PM EDT FIBRINOGEN,QUANTITATI VE (CLOTTABLE) STAT 03/29/2025 7:58 PM EDT CBC WITH AUTO DIFFERENTIAL STAT 03/29/2025 7:58 PM EDT MAGNESIUM, PLASMA Routine 03/29/2025 7:5 8 PM EDT RENAL FUNCTION PANEL, PLASMA Routine 03/29/2025 7:58 PM EDT POCT GLUCOSE METER UNSOLICITED RESULTS Routine 03/29/2025 7:43 PM EDT OXYGEN THERAPY Routine 03/29/2025 7:30 PM EDT OXYGEN THERAPY Routine 03/29/2025 7:30 PM EDT OXYGEN THERAPY Routine 03/29/2025 7:30 PM EDT SURGICAL PATHOLOGY EXAM Routine 03/29/2025 5:10 PM EDT Non-small cell cancer of left lung (CMS/HCC) BLOOD GAS PANEL, ARTERIAL STAT 03/29/2025 4:05 PM EDT Non-small cell cancer of left lung (CMS/HCC) APTT STAT 03/29/2025 4:04 PM EDT Non-small cell cancer of left lung (CMS/HCC) PROTHROMBIN TIME(PT) / INR STAT 03/29/2025 4:04 PM EDT Non-small cell cancer of left lung (CMS/HCC) FIBRINOGEN,QUANTITATI VE (CLOTTABLE) STAT 03/29/2025 4:04 PM EDT Non-small cell cancer of left lung (CMS/HCC) CBC W/O DIFFERENTIAL STAT 03/29/2025 4:04 PM EDT Non-small cell cancer of left lung (CMS/HCC) BLOOD GAS PANEL, ARTERIAL STAT 03/29/2025 2:29 PM EDT Non-small cell cancer of left lung (CMS/HCC) IN THORACOSCOPY SURG LOBECTOMY 03/29/2025 1:24 PM EDT Non-small cell cancer of left lung (CMS/HCC) POCT GLUCOSE METER UNSOLICITED RESULTS Routine 03/29/2025 12:48 PM EDT TYPE AND SCREEN Routine 03/29/2025 12:27 PM EDT BLOOD GAS PANEL, VENOUS Routine 03/29/2025 12:27 PM EDT documented in this encounter Results * XR Chest 2 Views (04/20/2025 11:26 AM EDT) Anatomical Region Laterality Modality Chest Digital Radiogra phy Impressions 04/20/2025 12:22 PM EDT Moderate loculated hydropneumothorax in the left. CRITICAL RESULT: No. COMMUNICATION: Per this written report. Drafted by Dagoberto Forrester MD on 04/20/2025 12:19 PM Final report signed by Dagoberto Forrester MD on 04/20/2025 12:22 PM Narrative 04/20/2025 12:22 PM EDT CLINICAL INDICATION: Eval of lung mccartney TECHNIQUE: XR CHEST 2 VIEWS COMPARISON: April 04, 2025 FINDINGS: Status post left upper lobectomy, with loculated hydropneumothorax now noted, seen anteriorly and apically on the left. The air and fluid components of this does appear slightly increased. Aerated lungs are clear. Procedure Note Dagoberto Forrester MD - 04/20/2025 CLINICAL INDICATION: Eval of lung mccartney TECHNIQUE: XR CHEST 2 VIEWS COMPARISON: April 04, 2025 FINDINGS: Status post left upper lobectomy, with loculated hydropneumothorax nownoted, seen anteriorly and apically on the left. The air and fluidcomponents of this does appear slightly increased. Aerated lungs areclear. IMPRESSION: Moderate loculated hydropneumothorax in the left. CRITICAL RESULT: No. COMMUNICATION: Per this written report. Drafted by Dagoberto Forrester MD on 04/20/2025 12:19 PM Final report signed by Dagoberto Forrester MD on 04/20/2025 12:22 PM Ирина Lopez MD IMG XR PROCEDURES Final Resu lt * (ABNORMAL) POCT glucose meter (04/04/2025 8:34 AM EDT) POCT Glucose 159(H) 74 - 99 mg/dL 04/04/2025 8:36 AM EDT [facility] Comment:Accuracy of a glucos e result obtained from a capillary whole blood specimen relies upon adequate, non-compromised capillary blood flow. If the capillary glucose result is not consistent with the patient's clinical signs and symptoms, glucose testing should be repeated with either an arterial or venous sample on the glucometer or sent to the main labortory for testing. Comment 04/04/2025 8:36 AM EDT [facility] Retail Pos Specialist ID Sandy Kramer 04/04/2025 8:36 AM EDT [facility] Device ID [id number] 04/04/2025 8:36 AM EDT [facility] Specimen Type POC Capillary 04/04/2025 8:36 AM EDT [facility] Blood Capillary blood specimen / Unknown 04/04/2025 8:34 AM EDT 04/04/2025 8:36 AM EDT Ирина Lopez MD LAB POINT OF CARE TE ST DOCKED DEVICE UNSOLICITED RESULTS Final Result [facility] [address] [place], [place] [id number] * XR Chest 1 View (04/04/2025 5:20 AM EDT) Anatomical Region Laterality Modality Chest Digital Radiogra phy Impressions 04/04/2025 10:20 AM EDT Stable left apical pneumothorax. CRITICAL RESULT: No. COMMUNICATION: Per this written report. Drafted by Nevaeh Winn MD on 04/04/2025 10:17 AM Final report signed by Nevaeh Winn MD on 04/04/2025 10:20 AM Narrative 04/04/2025 10:20 AM EDT CLINICAL INDICATION: eval lung mccartney TECHNIQUE: Single AP view of chest. COMPARISON: One day prior FINDINGS: The cardiomediastinal contours unchanged. Stable left apical pneumothorax. Small left pleural effusion and left basal lung opacities similar to prior. No new lung consolidation. Mild left chest wall subcutaneous emphysema. Procedure Note Nevaeh Winn MD - 04/04/2025 CLINICAL INDICATION: eval lung mccartney TECHNIQUE: Single AP view of chest. COMPARISON: One day prior FINDINGS: The cardiomediastinal contours unchanged. Stable left apical pneumothorax.Small left pleural effusion and left basal lung opacities similar toprior. No new lung consolidation. Mild left chest wall subcutaneousemphysema. IMPRESSION: Stable left apical pneumothorax. CRITICAL RESULT: No. COMMUNICATION: Per this written report. Drafted by Nevaeh Winn MD on 04/04/2025 10:17 AM Final report signed by Nevaeh Winn MD on 04/04/2025 10:20 AM Scarlet Gamboa [employer] IMG XR PROCEDURES Final Resul t * (ABNORMAL) Renal Function Panel, Plasma (04/04/2025 2:19 AM EDT) Glucose, Plasma 166(H) 74 - 99 mg/dL 04/04/2025 2:53 AM EDT [facility] BUN, Plasma 18 8 - 23 mg/dL 04/04/2025 2:53 AM EDT [facility] Creatinine, Plasma 1.31(H) 0.70 - 1.20 mg/dL 04/04/2025 2:53 AM EDT [facility] BUN/Creatinine Ratio 14 04/04/2025 2:53 AM EDT [facility] Sodium, Plasma 136 136 - 145 mmol/L 04/04/2025 2:53 AM EDT [facility] Potassium, Plasma 4.3 3.6 - 4.9 mmol/L 04/04/2025 2:53 AM EDT [facility] Chloride, Plasma 103 97 - 107 mmol/L 04/04/2025 2:53 AM EDT [facility] CO2, Plasma 22 22 - 29 mmol/L 04/04/2025 2:53 AM EDT [facility] Anion Gap 11 6 - 16 mmol/L 04/04/2025 2:53 AM EDT [facility] Total Calcium, Plasma 8.2(L) 8.9 - 10.2 mg/dL 04/04/2025 2:53 AM EDT [facility] Phosphorus, Plasma 3.1 2.5 - 4.5 mg/dL 04/04/2025 2:53 AM EDT [facility] Albumin, Plasma 3.0(L) 3.5 - 5.2 g/dL 04/04/2025 2:53 AM EDT [facility] eGFRcr 55.7 mL/min/1.7 3m*2 04/04/2025 2:53 AM EDT [facility] Comment:Reported eGFRcr in m L/min/1.73m2 is based the CKD-EPI 2020 equation that does not use a race coefficient. Blood Venous blood specimen / Unknown Venipuncture / Unknown 04/04/2025 2:19 AM EDT 04/04/2025 2:24 AM EDT Ирина Lopez MD LAB BLOOD ORDERABLES Final R esult Performing Organization Address City/[facility]/ZIP Co de Phone Number [facility] [address] [place] [address] * (ABNORMAL) Magnesium, Plasma (04/04/2025 2:19 AM EDT) Magnesium, Plasma 1.8(L) 1.9 - 2.4 mg/dL 04/04/2025 2:53 AM EDT [facility] Blood Venous blood specimen / Unknown Venipuncture / Unknown 04/04/2025 2:19 AM EDT 04/04/2025 2:24 AM EDT Ирина Lopez MD LAB BLOOD ORDERABLES Final R esult Performing Organization Address City/[facility]/ZIP Co de Phone Number [facility] [address] [place] [address] * (ABNORMAL) CBC W/O Differential (04/04/2025 2:19 AM EDT) WBC Count 5.44 3.70 - 10.30 10*3/uL LAB HEMATOLOGY METHOD 04/04/2025 2:33 AM EDT [facility] RBC Count 3.77(L) 4.60 - 6.10 10*6/uL LAB HEMATOLOGY METHOD 04/04/2025 2:33 AM EDT [facility] HGB 10.7(L) 13.7 - 17.5 g/dL LAB HEMATOLOGY METHOD 04/04/2025 2:33 AM EDT [facility] HCT 32.4(L) 40.0 - 51.0 % LAB HEMATOLOGY METHOD 04/04/2025 2:33 AM EDT [facility] Platelet Count 220 155 - 369 10*3/uL LAB HEMATOLOGY METHOD 04/04/2025 2:33 AM EDT [facility] MCV 86 79 - 98 fL LAB HEMATOLOGY METHOD 04/04/2025 2:33 AM EDT [facility] MCH 28.4 26.0 - 32.0 pg LAB HEMATOLOGY METHOD 04/04/2025 2:33 AM EDT [facility] MCHC 33.0 30.7 - 35.5 g/dL LAB HEMATOLOGY METHOD 04/04/2025 2:33 AM EDT [facility] RDW 14.7(H) 11.5 - 14.5 % LAB HEMATOLOGY METHOD 04/04/2025 2:33 AM EDT [facility] MPV 9.1 8.8 - 12.5 fL LAB HEMATOLOGY METHOD 04/04/2025 2:33 AM EDT [facility] nRBC 0.4(H) <=0.0 per 100 WBCs LAB HEMATOLOGY METHOD 04/04/2025 2:33 AM EDT [facility] Blood Venous blood specimen / Unknown Venipuncture / Unknown 04/04/2025 2:19 AM EDT 04/04/2025 2:24 AM EDT us Ирина Lopez MD LAB BLOOD ORDERABLES Final R esult [facility] [address] [place] [address] * (ABNORMAL) POCT glucose meter (04/03/2025 8:25 PM EDT) [facility] POCT Glucose 194(H) 74 - 99 mg/dL 04/03/2025 8:28 PM EDT [facility] Comment:Accuracy of a glucos e result obtained from a capillary whole blood specimen relies upon adequate, non-compromised capillary blood flow. If the capillary glucose result is not consistent with the patient's clinical signs and symptoms, glucose testing should be repeated with either an arterial or venous sample on the glucometer or sent to the main labortory for testing. Comment 04/03/2025 8:28 PM EDT [facility] Retail Pos Specialist ID Obdulio Navarro 04/03/2025 8:28 PM EDT [facility] Device ID [id number] 04/03/2025 8:28 PM EDT [facility] Specimen Type POC Capillary 04/03/2025 8:28 PM EDT [facility] Blood Capillary blood specimen / Unknown 04/03/2025 8:25 PM EDT 04/03/2025 8:28 PM EDT Ирина Lopez MD LAB POINT OF CARE TE ST DOCKED DEVICE UNSOLICITED RESULTS Final Result Performing Organization Address [facility] Co de Phone Number [facility] [address] [place] [address] * (ABNORMAL) POCT glucose meter (04/03/2025 5:27 PM EDT) [facility] POCT Glucose 138(H) 74 - 99 mg/dL 04/03/2025 5:29 PM EDT [facility] Comment:Accuracy of a glucos e result obtained from a capillary whole blood specimen relies upon adequate, non-compromised capillary blood flow. If the capillary glucose result is not consistent with the patient's clinical signs and symptoms, glucose testing should be repeated with either an arterial or venous sample on the glucometer or sent to the main labortory for testing. Comment 04/03/2025 5:29 PM EDT [facility] Retail Pos Specialist ID Anayeli Castro 025 5:29 PM EDT [facility] Device ID [id number] 04/03/2025 5:29 PM EDT [facility] Specimen Type POC Capillary 04/03/2025 5:29 PM EDT [facility] Blood Capillary blood specimen / Unknown 04/03/2025 5:27 PM EDT 04/03/2025 5:29 PM EDT us Ирина Lopez MD LAB POINT OF CARE TE ST DOCKED DEVICE UNSOLICITED RESULTS Final Result [facility] [address] [place] [id number] * XR Chest 1 View (04/03/2025 1:09 PM EDT) Anatomical Region Laterality Modality Chest Digital Radiogra phy Impressions 04/03/2025 2:12 PM EDT Interval removal of the left apical chest tube. Left apical pneumothorax mildly increased from prior. CRITICAL RESULT: No. COMMUNICATION: Per this written report. Drafted by Nevaeh Winn MD on 04/03/2025 2:02 PM Final report signed by Nevaeh Winn MD on 04/03/2025 2:12 PM Narrative 04/03/2025 2:12 PM EDT CLINICAL INDICATION: post pull CXR; eval for ptx TECHNIQUE: Single AP view of chest. COMPARISON: 7 hours prior FINDINGS: Interval removal of the left apical chest tube. Left apical pneumothorax mildly increased from prior. Small left pleural effusion similar to prior. Left basal lung opacity with improved aeration at the left lung base. Subcutaneous emphysema in the left lower chest wall. Procedure Note Nevaeh Winn MD - 04/03/2025 CLINICAL INDICATION: post pull CXR; eval for ptx TECHNIQUE: Single AP view of chest. COMPARISON: 7 hours prior FINDINGS: Interval removal of the left apical chest tube. Left apical pneumothoraxmildly increased from prior. Small left pleural effusion similar to prior.Left basal lung opacity with improved aeration at the left lung base.Subcutaneous emphysema in the left lower chest wall. IMPRESSION: Interval removal of the left apical chest tube. Left apical pneumothoraxmildly increased from prior. CRITICAL RESULT: No. COMMUNICATION: Per this written report. Drafted by Nevaeh Winn MD on 04/03/2025 2:02 PM Final report signed by Nevaeh Winn MD on 04/03/2025 2:12 PM Ирина Lopez MD IMG XR PROCEDURES Final Resu lt * (ABNORMAL) POCT glucose meter (04/03/2025 12:15 PM EDT) POCT Glucose 190(H) 74 - 99 mg/dL 04/03/2025 12:17 PM EDT [facility] Comment:Accuracy of a glucos e result obtained from a capillary whole blood specimen relies upon adequate, non-compromised capillary blood flow. If the capillary glucose result is not consistent with the patient's clinical signs and symptoms, glucose testing should be repeated with either an arterial or venous sample on the glucometer or sent to the main labortory for testing. Comment 04/03/2025 12:17 PM EDT [facility] Retail Pos Specialist ID Anayeli Castro 025 12:17 PM EDT [facility] Device ID [id number] 04/03/2025 12:17 PM EDT [facility] Specimen Type POC Capillary 04/03/2025 12:17 PM EDT [facility] Blood Capillary blood specimen / Unknown 04/03/2025 12:15 PM EDT 04/03/2025 12:17 PM EDT Ирина Lopez MD LAB POINT OF CARE TE ST DOCKED DEVICE UNSOLICITED RESULTS Final Result Performing Organization Address City/State/[facility] Co de Phone Number [facility] [address] [place] [address] * (ABNORMAL) POCT glucose meter (04/03/2025 8:46 AM EDT) POCT Glucose 123(H) 74 - 99 mg/dL 04/03/2025 8:48 AM EDT [facility] Comment:Accuracy of a glucos e result obtained from a capillary whole blood specimen relies upon adequate, non-compromised capillary blood flow. If the capillary glucose result is not consistent with the patient's clinical signs and symptoms, glucose testing should be repeated with either an arterial or venous sample on the glucometer or sent to the main labortory for testing. Comment 04/03/2025 8:48 AM EDT [facility] Retail Pos Specialist ID Anayeli Castro 025 8:48 AM EDT [facility] Device ID [id number] 04/03/2025 8:48 AM EDT [facility] Specimen Type POC Capillary 04/03/2025 8:48 AM EDT [facility] Blood Capillary blood specimen / Unknown 04/03/2025 8:46 AM EDT 04/03/2025 8:48 AM EDT us Ирина Lopez MD LAB POINT OF CARE TE ST DOCKED DEVICE UNSOLICITED RESULTS Final Result [facility] [address] [place] [address] * XR Chest 1 View (04/03/2025 5:53 AM EDT) Anatomical Region Laterality Modality Chest Digital Radiogra phy Impressions 04/03/2025 9:52 AM EDT No significant interval change. CRITICAL RESULT: No. COMMUNICATION: Per this written report. Drafted by Nevaeh Winn MD on 04/03/2025 9:51 AM Final report signed by Nevaeh Winn MD on 04/03/2025 9:52 AM Narrative 04/03/2025 9:52 AM EDT CLINICAL INDICATION: eval lung mccartney TECHNIQUE: Single AP view of chest. COMPARISON: One day prior FINDINGS: Left apical chest tube in place. Trace left apical pneumothorax. The cardiac and mediastinal contours are unchanged. Trace left pleural effusion similar to prior. Bibasal atelectatic changes. No new lung consolidation. Mild subcutaneous emphysema along the left chest wall. Procedure Note Nevaeh Winn MD - 04/03/2025 CLINICAL INDICATION: eval lung mccartney TECHNIQUE: Single AP view of chest. COMPARISON: One day prior FINDINGS: Left apical chest tube in place. Trace left apical pneumothorax. Thecardiac and mediastinal contours are unchanged. Trace left pleuraleffusion similar to prior. Bibasal atelectatic changes. No new lungconsolidation. Mild subcutaneous emphysema along the left chest wall. IMPRESSION: No significant interval change. CRITICAL RESULT: No. COMMUNICATION: Per this written report. Drafted by Nevaeh Winn MD on 04/03/2025 9:51 AM Final report signed by Nevaeh Winn MD on 04/03/2025 9:52 AM us Scarlet Gamboa GAS LEAK INSPECTOR IMG XR PROCEDURES Final Resul t * (ABNORMAL) Renal Function Panel, Plasma (04/03/2025 3:45 AM EDT) Glucose, Plasma 131(H) 74 - 99 mg/dL 04/03/2025 4:24 AM EDT [facility] BUN, Plasma 16 8 - 23 mg/dL 04/03/2025 4:24 AM EDT [facility] Creatinine, Plasma 1.34(H) 0.70 - 1.20 mg/dL 04/03/2025 4:24 AM EDT [facility] BUN/Creatinine Ratio 12 04/03/2025 4:24 AM EDT [facility] Sodium, Plasma 135(L) 136 - 145 mmol/L 04/03/2025 4:24 AM EDT [facility] Potassium, Plasma 4.9 3.6 - 4.9 mmol/L 04/03/2025 4:24 AM EDT [facility] Chloride, Plasma 103 97 - 107 mmol/L 04/03/2025 4:24 AM EDT [facility] CO2, Plasma 21(L) 22 - 29 mmol/L 04/03/2025 4:24 AM EDT [facility] Anion Gap 11 6 - 16 mmol/L 04/03/2025 4:24 AM EDT [facility] Total Calcium, Plasma 7.7(L) 8.9 - 10.2 mg/dL 04/03/2025 4:24 AM EDT [facility] Phosphorus, Plasma 2.2(L) 2.5 - 4.5 mg/dL 04/03/2025 4:24 AM EDT [facility] Albumin, Plasma 2.8(L) 3.5 - 5.2 g/dL 04/03/2025 4:24 AM EDT [facility] eGFRcr 54.2 mL/min/1.7 3m*2 04/03/2025 4:24 AM EDT [facility] Comment:Reported eGFRcr in m L/min/1.73m2 is based the CKD-EPI 2020 equation that does not use a race coefficient. Blood Venous blood specimen / Unknown Venipuncture / Unknown 04/03/2025 3:45 AM EDT 04/03/2025 3:54 AM EDT Ирина Lopez MD LAB BLOOD ORDERABLES Final R esult Performing Organization Address City/[facility]/ZIP Co de Phone Number [facility] [address] [place] [address] * Magnesium, Plasma (04/03/2025 3:45 AM EDT) [facility] Magnesium, Plasma 2.0 1.9 - 2.4 mg/dL 04/03/2025 4:24 AM EDT [facility] Blood Venous blood specimen / Unknown Venipuncture / Unknown 04/03/2025 3:45 AM EDT 04/03/2025 3:54 AM EDT Ирина Lopez MD LAB BLOOD ORDERABLES Final R esult Performing Organization Address City/[facility] Co de Phone Number [facility] [address] [place] [address] * (ABNORMAL) CBC W/O Differential (04/03/2025 3:45 AM EDT) WBC Count 6.54 3.70 - 10.30 10*3/uL LAB HEMATOLOGY METHOD 04/03/2025 4:09 AM EDT [facility] RBC Count 3.42(L) 4.60 - 6.10 10*6/uL LAB HEMATOLOGY METHOD 04/03/2025 4:09 AM EDT [facility] HGB 9.8(L) 13.7 - 17.5 g/dL LAB HEMATOLOGY METHOD 04/03/2025 4:09 AM EDT [facility] HCT 29.2(L) 40.0 - 51.0 % LAB HEMATOLOGY METHOD 04/03/2025 4:09 AM EDT [facility] Platelet Count 209 155 - 369 10*3/uL LAB HEMATOLOGY METHOD 04/03/2025 4:09 AM EDT [facility] MCV 85 79 - 98 fL LAB HEMATOLOGY METHOD 04/03/2025 4:09 AM EDT [facility] MCH 28.7 26.0 - 32.0 pg LAB HEMATOLOGY METHOD 04/03/2025 4:09 AM EDT [facility] MCHC 33.6 30.7 - 35.5 g/dL LAB HEMATOLOGY METHOD 04/03/2025 4:09 AM EDT [facility] RDW 15.0(H) 11.5 - 14.5 % LAB HEMATOLOGY METHOD 04/03/2025 4:09 AM EDT [facility] MPV 9.4 8.8 - 12.5 fL LAB HEMATOLOGY METHOD 04/03/2025 4:09 AM EDT [facility] nRBC 0.0 <=0.0 per 100 WBCs LAB HEMATOLOGY METHOD 04/03/2025 4:09 AM EDT [facility] Blood Venous blood specimen / Unknown Venipuncture / Unknown 04/03/2025 3:45 AM EDT 04/03/2025 3:54 AM EDT us Ирина Lopez MD LAB BLOOD ORDERABLES Final R esult [facility] [address] [place] [address] * (ABNORMAL) POCT glucose meter (04/02/2025 8:16 PM EDT) [facility] POCT Glucose 154(H) 74 - 99 mg/dL 04/02/2025 8:20 PM EDT [facility] Comment:Accuracy of a glucos e result obtained from a capillary whole blood specimen relies upon adequate, non-compromised capillary blood flow. If the capillary glucose result is not consistent with the patient's clinical signs and symptoms, glucose testing should be repeated with either an arterial or venous sample on the glucometer or sent to the main labortory for testing. Comment 04/02/2025 8:20 PM EDT [facility] Retail Pos Specialist ID Jil Ruiz 8:20 PM EDT [facility] Device ID [id number] 04/02/2025 8:20 PM EDT [facility] Specimen Type POC Capillary 04/02/2025 8:20 PM EDT [facility] Blood Capillary blood specimen / Unknown 04/02/2025 8:16 PM EDT 04/02/2025 8:20 PM EDT Ирина Lopez MD LAB POINT OF CARE TE ST DOCKED DEVICE UNSOLICITED RESULTS Final Result Performing Organization Address City/[facility] Co de Phone Number [facility] [address] [place] [address] * (ABNORMAL) POCT glucose meter (04/02/2025 5:20 PM EDT) [facility] POCT Glucose 122(H) 74 - 99 mg/dL 04/02/2025 5:22 PM EDT [facility] Comment:Accuracy of a glucos e result obtained from a capillary whole blood specimen relies upon adequate, non-compromised capillary blood flow. If the capillary glucose result is not consistent with the patient's clinical signs and symptoms, glucose testing should be repeated with either an arterial or venous sample on the glucometer or sent to the main labortory for testing. Comment 04/02/2025 5:22 PM EDT [facility] Retail Pos Specialist ID Kenn Cabrera 04/02/2025 5:22 PM EDT [facility] Device ID [id number] 04/02/2025 5:22 PM EDT [facility] Specimen Type POC Capillary 04/02/2025 5:22 PM EDT [facility] Blood Capillary blood specimen / Unknown 04/02/2025 5:20 PM EDT 04/02/2025 5:22 PM EDT us Ирина Lopez MD LAB POINT OF CARE TE ST DOCKED DEVICE UNSOLICITED RESULTS Final Result Performing Organization Address City/[facility] Co de Phone Number [facility] [address] [place] [address] * (ABNORMAL) CBC W/O Differential (04/02/2025 3:02 PM EDT) [facility] WBC Count 6.02 3.70 - 10.30 10*3/uL LAB HEMATOLOGY METHOD 04/02/2025 3:27 PM EDT [facility] RBC Count 3.09(L) 4.60 - 6.10 10*6/uL LAB HEMATOLOGY METHOD 04/02/2025 3:27 PM EDT [facility] HGB 8.9(L) 13.7 - 17.5 g/dL LAB HEMATOLOGY METHOD 04/02/2025 3:27 PM EDT [facility] HCT 26.9(L) 40.0 - 51.0 % LAB HEMATOLOGY METHOD 04/02/2025 3:27 PM EDT [facility] Platelet Count 129(L) 155 - 369 10*3/uL LAB HEMATOLOGY METHOD 04/02/2025 3:27 PM EDT [facility] MCV 87 79 - 98 fL LAB HEMATOLOGY METHOD 04/02/2025 3:27 PM EDT [facility] MCH 28.8 26.0 - 32.0 pg LAB HEMATOLOGY METHOD 04/02/2025 3:27 PM EDT [facility] MCHC 33.1 30.7 - 35.5 g/dL LAB HEMATOLOGY METHOD 04/02/2025 3:27 PM EDT [facility] RDW 14.4 11.5 - 14.5 % LAB HEMATOLOGY METHOD 04/02/2025 3:27 PM EDT [facility] MPV 9.9 8.8 - 12.5 fL LAB HEMATOLOGY METHOD 04/02/2025 3:27 PM EDT [facility] nRBC 0.0 <=0.0 per 100 WBCs LAB HEMATOLOGY METHOD 04/02/2025 3:27 PM EDT [facility] Blood Venous blood specimen / Unknown Venipuncture / Unknown 04/02/2025 3:02 PM EDT 04/02/2025 3:20 PM EDT us Scarlet Gamboa APRN LAB BLOOD ORDERABLES Final Re sult [facility] [address] [place] [address] * Transfuse RBC (04/02/2025 2:53 PM EDT) us Scarlet Gamboa APRN BLOOD TRANSFUSION ORDERABLES Final Result * Transfuse RBC: 2 Units (04/02/2025 2:53 PM EDT) Scarlet Gamboa BING BLOOD TRANSFUSION ORDERABLES Edited Result - Final * (ABNORMAL) POCT glucose meter (04/02/2025 12:28 PM EDT) POCT Glucose 149(H) 74 - 99 mg/dL 04/02/2025 12:30 PM EDT [facility] Comment:Accuracy of a glucos e result obtained from a capillary whole blood specimen relies upon adequate, non-compromised capillary blood flow. If the capillary glucose result is not consistent with the patient's clinical signs and symptoms, glucose testing should be repeated with either an arterial or venous sample on the glucometer or sent to the main labortory for testing. Comment 04/02/2025 12:30 PM EDT [facility] Retail Pos Specialist ID Kenn Cabrera 04/02/2025 12:30 PM EDT [facility] Device ID [id number] 04/02/2025 12:30 PM EDT [facility] Specimen Type POC Capillary 04/02/2025 12:30 PM EDT [facility] Blood Capillary blood specimen / Unknown 04/02/2025 12:28 PM EDT 04/02/2025 12:30 PM EDT Ирина Lopez MD LAB POINT OF CARE TE ST DOCKED DEVICE UNSOLICITED RESULTS Final Result Performing Organization Address City/State/[facility] Phone Number [facility] [address] [place] [address] * Transfuse RBC (04/02/2025 12:16 PM EDT) Scarlet A Cooper SMART BLOOD TRANSFUSION ORDERABLES Final Result * PERIPHERAL IV (SMARTFORM LINK) (04/02/2025 10:35 AM EDT) Narrative Shen Card RN - 04/02/2025 10:35 AM EDT Shen Card RN 04/02/2025 10:46 AM Insert peripheral IV Performed by: Shen Card RN Authorized by: Ирина Lopez MD Hand hygiene: Hand hygiene performed prior to insertion Inserted using aseptic techniques: Yes Preparation: Skin prepped with chg Orientation: Left and anterior Location: Forearm Catheter placed: Peripheral IV Catheter size: 20g/2.00in Line Technique: Ultrasound Guidance Number of attempts: 1 IV flushes: Without difficulty and positive blood return noted and IV luer locked Patient tolerance: Patient tolerated the procedure well Patient comfort measures used: Position of comfort IV site covered with: Transparent semipermeable dressing Education provided to: Patient Comments: All pertinent images were uploaded to PACS. us Ирина Lopez MD IV THERAPY ORDERABLES Final Result * (ABNORMAL) POCT glucose meter (04/02/2025 8:31 AM EDT) Pathologist [facility] POCT Glucose 127(H) 74 - 99 mg/dL 04/02/2025 8:33 AM EDT [facility] Comment:Accuracy of a glucos e result obtained from a capillary whole blood specimen relies upon adequate, non-compromised capillary blood flow. If the capillary glucose result is not consistent with the patient's clinical signs and symptoms, glucose testing should be repeated with either an arterial or venous sample on the glucometer or sent to the main labortory for testing. Comment 04/02/2025 8:33 AM EDT [facility] Retail Pos Specialist ID Martha Sena 04/02/2025 8:33 AM EDT [facility] Device ID [id number] 04/02/2025 8:33 AM EDT [facility] Specimen Type POC Capillary 04/02/2025 8:33 AM EDT [facility] Blood Capillary blood specimen / Unknown 04/02/2025 8:31 AM EDT 04/02/2025 8:33 AM EDT us Ирина Lopez MD LAB POINT OF CARE TE ST DOCKED DEVICE UNSOLICITED RESULTS Final Result [facility] [address] [place] [address] * Prepare Leukocyte Reduced RBC: 2 Units (04/02/2025 7:58 AM EDT) Product Code [id number] BLOO D BANK Dispense Status Transfused [facility]OD [facility] Blood Expiration Date [id number] [facility] Unit Number [id number] [facility] B LOOD BANK Product Blood Type 6200 [facility] BLOOD B[facility] Blood Type A+ [facility]LOOD [facility] Crossmatch Compatible [facility]LOOD B[facility] Product Code [id number] CH BLOO D BANK Dispense Status Transfused [facility] BLOOD BANK Blood Expiration Date [id number] [facility] Unit Number [id number] [facility] B LOOD BANK Product Blood Type 6200 [facility]LOOD [facility] Blood Type A+ [facility] BLOOD BANK Crossmatch Compatible [facility] BLOOD BANK Other us Scarlet Gamboa APRN BLOOD BANK PRODUCT ORDERABLES Final Result Performing Organization Address [facility] de Phone Number BLOOD BANK [address] [place] [address], [place] * Type and Screen (04/02/2025 6:36 AM EDT) ABO/Rh A Positive 04/02/2025 6:08 AM EDT [facility] Antibody Screen Negative 04/02/2025 6:08 AM EDT [facility] Specimen Expiration 04/05/2025 23:59 04/02/2025 6:08 AM EDT [facility] Blood Venous blood specimen / Unknown Venipuncture / Unknown 04/02/2025 6:36 AM EDT 04/02/2025 6:46 AM EDT us Ирина Lopez MD LAB BLOOD BANK TEST ORDERABL ES Final Result Performing Organization Address [facility] de Phone Number BLOOD BANK [address] [place] [address], [place] * XR Chest 1 View (04/02/2025 6:08 AM EDT) Anatomical Region Laterality Modality Chest Digital Radiogra phy Impressions 04/02/2025 9:47 AM EDT Stable left apical chest tube with persistent but decreasing left apical pneumothorax. CRITICAL RESULT: No. COMMUNICATION: Per this written report. By electronically signing this report, I, the attending physician, attest that I have personally reviewed the images/data for the above examination(s) and agree with the final edited report. Drafted by Nataliia Karimi MD on 04/02/2025 9:17 AM Final report signed by Dagoberto Forrester MD on 04/02/2025 9:47 AM Narrative 04/02/2025 9:47 AM EDT CLINICAL INDICATION: eval lung mccartney TECHNIQUE: XR CHEST 1 VIEW COMPARISON: Chest radiograph one day prior 04/01/2025 FINDINGS: Stable left apical chest tube position. Persistent but decreasing left apical pneumothorax Stable small left pleural effusion. No new focal consolidation or edema. Unchanged cardiac silhouette and mediastinal contours. Procedure Note Dagoberto Forrester MD - 04/02/2025 CLINICAL INDICATION: eval lung mccartney TECHNIQUE: XR CHEST 1 VIEW COMPARISON: Chest radiograph one day prior 04/01/2025 FINDINGS: Stable left apical chest tube position. Persistent but decreasing leftapical pneumothorax Stable small left pleural effusion. No new focalconsolidation or edema. Unchanged cardiac silhouette and mediastinalcontours. IMPRESSION: Stable left apical chest tube with persistent but decreasing left apicalpneumothorax. CRITICAL RESULT: No. COMMUNICATION: Per this written report. By electronically signing this report, I, the attending physician, attestthat I have personally reviewed the images/data for the aboveexamination(s) and agree with the final edited report. Drafted by Nataliia Karimi MD on 04/02/2025 9:17 AM Final report signed by Dagoberto Forrester MD on 04/02/2025 9:47 AM us Ирина Lopez MD IMG XR PROCEDURES Final Resu lt * (ABNORMAL) Renal Function Panel, Plasma (04/02/2025 4:32 AM EDT) Glucose, Plasma 114(H) 74 - 99 mg/dL 04/02/2025 5:51 AM EDT [facility] BUN, Plasma 16 8 - 23 mg/dL 04/02/2025 5:51 AM EDT [facility] Creatinine, Plasma 1.47(H) 0.70 - 1.20 mg/dL 04/02/2025 5:51 AM EDT [facility] BUN/Creatinine Ratio 11 04/02/2025 5:51 AM EDT [facility] Sodium, Plasma 137 136 - 145 mmol/L 04/02/2025 5:51 AM EDT [facility] Potassium, Plasma 4.3 3.6 - 4.9 mmol/L 04/02/2025 5:51 AM EDT [facility] Chloride, Plasma 104 97 - 107 mmol/L 04/02/2025 5:51 AM EDT [facility] CO2, Plasma 24 22 - 29 mmol/L 04/02/2025 5:51 AM EDT [facility] Anion Gap 9 6 - 16 mmol/L 04/02/2025 5:51 AM EDT [facility] Total Calcium, Plasma 7.8(L) 8.9 - 10.2 mg/dL 04/02/2025 5:51 AM EDT [facility] Phosphorus, Plasma 2.6 2.5 - 4.5 mg/dL 04/02/2025 5:51 AM EDT [facility] Albumin, Plasma 2.8(L) 3.5 - 5.2 g/dL 04/02/2025 5:51 AM EDT [facility] eGFRcr 48.5 mL/min/1.7 3m*2 04/02/2025 5:51 AM EDT [facility] Comment:Reported eGFRcr in m L/min/1.73m2 is based the CKD-EPI 2020 equation that does not use a race coefficient. Blood Venous blood specimen / Unknown Venipuncture / Unknown 04/02/2025 4:32 AM EDT 04/02/2025 5:20 AM EDT us Ирина Lopez MD LAB BLOOD ORDERABLES Final R esult [facility] [address] [place] [address] * Magnesium, Plasma (04/02/2025 4:32 AM EDT) Magnesium, Plasma 1.9 1.9 - 2.4 mg/dL 04/02/2025 5:51 AM EDT [facility] Blood Venous blood specimen / Unknown Venipuncture / Unknown 04/02/2025 4:32 AM EDT 04/02/2025 5:20 AM EDT us Ирина Lopez MD LAB BLOOD ORDERABLES Final R esult [facility] [address] [place] [address] * (ABNORMAL) CBC W/O Differential (04/02/2025 4:32 AM EDT) WBC Count 6.22 3.70 - 10.30 10*3/uL LAB HEMATOLOGY METHOD 04/02/2025 5:31 AM EDT [facility] RBC Count 2.14(L) 4.60 - 6.10 10*6/uL LAB HEMATOLOGY METHOD 04/02/2025 5:31 AM EDT [facility] HGB 6.4(LL) 13.7 - 17.5 g/dL LAB HEMATOLOGY METHOD 04/02/2025 5:31 AM EDT [facility] HCT 19.0(LL) 40.0 - 51.0 % LAB HEMATOLOGY METHOD 04/02/2025 5:31 AM EDT [facility] Platelet Count 180 155 - 369 10*3/uL LAB HEMATOLOGY METHOD 04/02/2025 5:31 AM EDT [facility] MCV 89 79 - 98 fL LAB HEMATOLOGY METHOD 04/02/2025 5:31 AM EDT [facility] MCH 29.9 26.0 - 32.0 pg LAB HEMATOLOGY METHOD 04/02/2025 5:31 AM EDT [facility] MCHC 33.7 30.7 - 35.5 g/dL LAB HEMATOLOGY METHOD 04/02/2025 5:31 AM EDT [facility] RDW 14.0 11.5 - 14.5 % LAB HEMATOLOGY METHOD 04/02/2025 5:31 AM EDT [facility] MPV 9.9 8.8 - 12.5 fL LAB HEMATOLOGY METHOD 04/02/2025 5:31 AM EDT [facility] nRBC 0.0 <=0.0 per 100 WBCs LAB HEMATOLOGY METHOD 04/02/2025 5:31 AM EDT [facility] Blood Venous blood specimen / Unknown Venipuncture / Unknown 04/02/2025 4:32 AM EDT 04/02/2025 5:20 AM EDT Ирина Lopez MD LAB BLOOD ORDERABLES Final R esult Performing Organization Address City/[facility]/ZIP Co de Phone Number [facility] [address] [place] [address] * (ABNORMAL) POCT glucose meter (04/01/2025 8:14 PM EDT) POCT Glucose 156(H) 74 - 99 mg/dL 04/01/2025 8:16 PM EDT [facility] Comment:Accuracy of a glucos e result obtained from a capillary whole blood specimen relies upon adequate, non-compromised capillary blood flow. If the capillary glucose result is not consistent with the patient's clinical signs and symptoms, glucose testing should be repeated with either an arterial or venous sample on the glucometer or sent to the main labortory for testing. Comment 04/01/2025 8:16 PM EDT [facility] Retail Pos Specialist ID ShkrJil elizalde 8:16 PM EDT [facility] Device ID [id number] 04/01/2025 8:16 PM EDT [facility] Specimen Type POC Capillary 04/01/2025 8:16 PM EDT [facility] Blood Capillary blood specimen / Unknown 04/01/2025 8:14 PM EDT 04/01/2025 8:16 PM EDT Ирина Lopez MD LAB POINT OF CARE TE ST DOCKED DEVICE UNSOLICITED RESULTS Final Result Performing Organization Address City/[facility]/ZIP Co de Phone Number [facility] [address] [place] [address] * (ABNORMAL) POCT glucose meter (04/01/2025 5:26 PM EDT) POCT Glucose 154(H) 74 - 99 mg/dL 04/01/2025 5:29 PM EDT [facility] Comment:Accuracy of a glucos e result obtained from a capillary whole blood specimen relies upon adequate, non-compromised capillary blood flow. If the capillary glucose result is not consistent with the patient's clinical signs and symptoms, glucose testing should be repeated with either an arterial or venous sample on the glucometer or sent to the main labortory for testing. Comment 04/01/2025 5:29 PM EDT [facility] Retail Pos Specialist ID Kenn Cabrera 04/01/2025 5:29 PM EDT [facility] Device ID [id number] 04/01/2025 5:29 PM EDT [facility] Specimen Type POC Capillary 04/01/2025 5:29 PM EDT [facility] Blood Capillary blood specimen / Unknown 04/01/2025 5:26 PM EDT 04/01/2025 5:29 PM EDT us Ирина Loepz MD LAB POINT OF CARE TE ST DOCKED DEVICE UNSOLICITED RESULTS Final Result Performing Organization Address City/State/[facility] Co de Phone Number [facility] [address] [place] [address] * (ABNORMAL) POCT glucose meter (04/01/2025 12:49 PM EDT) [facility] POCT Glucose 162(H) 74 - 99 mg/dL 04/01/2025 12:51 PM EDT [facility] Comment:Accuracy of a glucos e result obtained from a capillary whole blood specimen relies upon adequate, non-compromised capillary blood flow. If the capillary glucose result is not consistent with the patient's clinical signs and symptoms, glucose testing should be repeated with either an arterial or venous sample on the glucometer or sent to the main labortory for testing. Comment 04/01/2025 12:51 PM EDT [facility] Retail Pos Specialist ID Kenn Cabrera 04/01/2025 12:51 PM EDT [facility] Device ID [id number] 04/01/2025 12:51 PM EDT [facility] Specimen Type POC Capillary 04/01/2025 12:51 PM EDT [facility] Blood Capillary blood specimen / Unknown 04/01/2025 12:49 PM EDT 04/01/2025 12:51 PM EDT us Ирина Lopez MD LAB POINT OF CARE TE ST DOCKED DEVICE UNSOLICITED RESULTS Final Result Performing Organization Address [facility] de Phone Number [facility] [address] [place] [address] * (ABNORMAL) POCT glucose meter (04/01/2025 8:43 AM EDT) POCT Glucose 155(H) 74 - 99 mg/dL 04/01/2025 8:45 AM EDT [facility] Comment:Accuracy of a glucos e result obtained from a capillary whole blood specimen relies upon adequate, non-compromised capillary blood flow. If the capillary glucose result is not consistent with the patient's clinical signs and symptoms, glucose testing should be repeated with either an arterial or venous sample on the glucometer or sent to the main labortory for testing. Comment 04/01/2025 8:45 AM EDT [facility] Retail Pos Specialist ID Kenn Cabrera 04/01/2025 8:45 AM EDT [facility] Device ID [id number] 04/01/2025 8:45 AM EDT [facility] Specimen Type POC Capillary 04/01/2025 8:45 AM EDT [facility] Blood Capillary blood specimen / Unknown 04/01/2025 8:43 AM EDT 04/01/2025 8:45 AM EDT Ирина Lopez MD LAB POINT OF CARE TE ST DOCKED DEVICE UNSOLICITED RESULTS Final Result Performing Organization Address [facility] de Phone Number [facility] [address] [place] [address] * XR Chest 1 View (04/01/2025 5:41 AM EDT) Anatomical Region Laterality Modality Chest Digital Radiogra phy Impressions 04/01/2025 9:53 AM EDT Stable small left apical pneumothorax. CRITICAL RESULT: No. COMMUNICATION: Per this written report. Drafted by Nevaeh Winn MD on 04/01/2025 9:52 AM Final report signed by Nevaeh Winn MD on 04/01/2025 9:53 AM Narrative 04/01/2025 9:53 AM EDT CLINICAL INDICATION: eval lung mccartney TECHNIQUE: Single AP view of chest. COMPARISON: One day prior FINDINGS: Stable position of the left apical chest tube. The cardiomediastinal contours are unchanged. Stable small left apical pneumothorax. Stable left pleural effusion. Left lung basal opacities similar to prior may represent atelectasis. No new lung consolidation. Procedure Note Nevaeh Winn MD - 04/01/2025 CLINICAL INDICATION: eval lung mccartney TECHNIQUE: Single AP view of chest. COMPARISON: One day prior FINDINGS: Stable position of the left apical chest tube. The cardiomediastinalcontours are unchanged. Stable small left apical pneumothorax. Stable leftpleural effusion. Left lung basal opacities similar to prior may representatelectasis. No new lung consolidation. IMPRESSION: Stable small left apical pneumothorax. CRITICAL RESULT: No. COMMUNICATION: Per this written report. Drafted by Nevaeh Winn MD on 04/01/2025 9:52 AM Final report signed by Nevaeh Winn MD on 04/01/2025 9:53 AM us Ирина Lopez MD IMG XR PROCEDURES Final Resu lt * (ABNORMAL) Renal Function Panel, Plasma (04/01/2025 2:12 AM EDT) Glucose, Plasma 138(H) 74 - 99 mg/dL 04/01/2025 4:24 AM EDT [facility] BUN, Plasma 20 8 - 23 mg/dL 04/01/2025 4:24 AM EDT [facility] Creatinine, Plasma 1.67(H) 0.70 - 1.20 mg/dL 04/01/2025 4:24 AM EDT [facility] BUN/Creatinine Ratio 12 04/01/2025 4:24 AM EDT [facility] Sodium, Plasma 136 136 - 145 mmol/L 04/01/2025 4:24 AM EDT [facility] Potassium, Plasma 4.3 3.6 - 4.9 mmol/L 04/01/2025 4:24 AM EDT [facility] Chloride, Plasma 101 97 - 107 mmol/L 04/01/2025 4:24 AM EDT [facility] CO2, Plasma 24 22 - 29 mmol/L 04/01/2025 4:24 AM EDT [facility] Anion Gap 11 6 - 16 mmol/L 04/01/2025 4:24 AM EDT [facility] Total Calcium, Plasma 8.1(L) 8.9 - 10.2 mg/dL 04/01/2025 4:24 AM EDT [facility] Phosphorus, Plasma 2.5 2.5 - 4.5 mg/dL 04/01/2025 4:24 AM EDT [facility] Albumin, Plasma 3.0(L) 3.5 - 5.2 g/dL 04/01/2025 4:24 AM EDT [facility] eGFRcr 41.6 mL/min/1.7 3m*2 04/01/2025 4:24 AM EDT [facility] Comment:Reported eGFRcr in m L/min/1.73m2 is based the CKD-EPI 2020 equation that does not use a race coefficient. Blood Venous blood specimen / Unknown Venipuncture / Unknown 04/01/2025 2:12 AM EDT 04/01/2025 3:21 AM EDT Ирина Lopez MD LAB BLOOD ORDERABLES Final R esult [facility] [address] [place] [address] * Magnesium, Plasma (04/01/2025 2:12 AM EDT) Magnesium, Plasma 2.4 1.9 - 2.4 mg/dL 04/01/2025 4:24 AM EDT [facility] Blood Venous blood specimen / Unknown Venipuncture / Unknown 04/01/2025 2:12 AM EDT 04/01/2025 3:21 AM EDT Ирина Lopez MD LAB BLOOD ORDERABLES Final R esult [facility] [address] [place] [address] * (ABNORMAL) CBC W/O Differential (04/01/2025 2:12 AM EDT) WBC Count 6.25 3.70 - 10.30 10*3/uL LAB HEMATOLOGY METHOD 04/01/2025 3:29 AM EDT [facility] RBC Count 2.59(L) 4.60 - 6.10 10*6/uL LAB HEMATOLOGY METHOD 04/01/2025 3:29 AM EDT [facility] HGB 7.6(L) 13.7 - 17.5 g/dL LAB HEMATOLOGY METHOD 04/01/2025 3:29 AM EDT [facility] HCT 22.9(L) 40.0 - 51.0 % LAB HEMATOLOGY METHOD 04/01/2025 3:29 AM EDT [facility] Platelet Count 163 155 - 369 10*3/uL LAB HEMATOLOGY METHOD 04/01/2025 3:29 AM EDT [facility] MCV 88 79 - 98 fL LAB HEMATOLOGY METHOD 04/01/2025 3:29 AM EDT [facility] MCH 29.3 26.0 - 32.0 pg LAB HEMATOLOGY METHOD 04/01/2025 3:29 AM EDT [facility] MCHC 33.2 30.7 - 35.5 g/dL LAB HEMATOLOGY METHOD 04/01/2025 3:29 AM EDT [facility] RDW 14.1 11.5 - 14.5 % LAB HEMATOLOGY METHOD 04/01/2025 3:29 AM EDT [facility] MPV 10.0 8.8 - 12.5 fL LAB HEMATOLOGY METHOD 04/01/2025 3:29 AM EDT [facility] nRBC 0.0 <=0.0 per 100 WBCs LAB HEMATOLOGY METHOD 04/01/2025 3:29 AM EDT [facility] Blood Venous blood specimen / Unknown Venipuncture / Unknown 04/01/2025 2:12 AM EDT 04/01/2025 3:21 AM EDT us Ирина Lopez MD LAB BLOOD ORDERABLES Final R esult [facility] [address] [place] [address] * (ABNORMAL) POCT glucose meter (03/31/2025 8:19 PM EDT) POCT Glucose 237(H) 74 - 99 mg/dL 03/31/2025 8:21 PM EDT [facility] Comment:Accuracy of a glucos e result obtained from a capillary whole blood specimen relies upon adequate, non-compromised capillary blood flow. If the capillary glucose result is not consistent with the patient's clinical signs and symptoms, glucose testing should be repeated with either an arterial or venous sample on the glucometer or sent to the main labortory for testing. Comment 03/31/2025 8:21 PM EDT [facility] Retail Pos Specialist ID Jil Ruiz 8:21 PM EDT [facility] Device ID [id number] 03/31/2025 8:21 PM EDT [facility] Specimen Type POC Capillary 03/31/2025 8:21 PM EDT [facility] Blood Capillary blood specimen / Unknown 03/31/2025 8:19 PM EDT 03/31/2025 8:21 PM EDT us Ирина Lopez MD LAB POINT OF CARE TE ST DOCKED DEVICE UNSOLICITED RESULTS Final Result Performing Organization Address City/State/[facility] Co de Phone Number [facility] [address] [place] [address] * (ABNORMAL) POCT glucose meter (03/31/2025 5:24 PM EDT) [facility] POCT Glucose 194(H) 74 - 99 mg/dL 03/31/2025 5:26 PM EDT [facility] Comment:Accuracy of a glucos e result obtained from a capillary whole blood specimen relies upon adequate, non-compromised capillary blood flow. If the capillary glucose result is not consistent with the patient's clinical signs and symptoms, glucose testing should be repeated with either an arterial or venous sample on the glucometer or sent to the main labortory for testing. Comment 03/31/2025 5:26 PM EDT [facility] Retail Pos Specialist ID Kenn Cabrera 03/31/2025 5:26 PM EDT [facility] Device ID [id number] 03/31/2025 5:26 PM EDT [facility] Specimen Type POC Capillary 03/31/2025 5:26 PM EDT [facility] Blood Capillary blood specimen / Unknown 03/31/2025 5:24 PM EDT 03/31/2025 5:26 PM EDT us Ирина Lopez MD LAB POINT OF CARE TE ST DOCKED DEVICE UNSOLICITED RESULTS Final Result [facility] [address] [place] [address] * Transfuse RBC (03/31/2025 3:56 PM EDT) Scarlet Gamboa GAS LEAK INSPECTOR BLOOD TRANSFUSION ORDERABLES Final Result * Transfuse RBC: 1 Units (03/31/2025 3:56 PM EDT) Scarlet Gamboa GAS LEAK INSPECTOR BLOOD TRANSFUSION ORDERABLES Final Result * XR Chest 1 View (03/31/2025 1:27 PM EDT) Anatomical Region Laterality Modality Chest Digital Radiogra phy Impressions 03/31/2025 1:30 PM EDT Increased, but small, left pneumothorax. CRITICAL RESULT: No. COMMUNICATION: Per this written report. Drafted by Dagoberto Forrester MD on 03/31/2025 1:30 PM Final report signed by Dagoberto Forrester MD on 03/31/2025 1:30 PM Narrative 03/31/2025 1:30 PM EDT CLINICAL INDICATION: water seal chest tube TECHNIQUE: XR CHEST 1 VIEW COMPARISON: 03/31/2025 0553 hours FINDINGS: There is a small pneumothorax at the left apex, increased since prior. Left chest tube remains in place. No new pulmonary opacities. Small amount of subcutaneous emphysema. Procedure Note Dagoberto Forrester MD - 03/31/2025 CLINICAL INDICATION: water seal chest tube TECHNIQUE: XR CHEST 1 VIEW COMPARISON: 03/31/2025 0553 hours FINDINGS: There is a small pneumothorax at the left apex, increased since prior.Left chest tube remains in place. No new pulmonary opacities. Small amountof subcutaneous emphysema. IMPRESSION: Increased, but small, left pneumothorax. CRITICAL RESULT: No. COMMUNICATION: Per this written report. Drafted by Dagoberto Forrester MD on 03/31/2025 1:30 PM Final report signed by Dagoberto Forrester MD on 03/31/2025 1:30 PM us Scarlet A Gamboa GAS LEAK INSPECTOR IMG XR PROCEDURES Final Resul t * (ABNORMAL) POCT glucose meter (03/31/2025 12:31 PM EDT) POCT Glucose 245(H) 74 - 99 mg/dL 03/31/2025 12:34 PM EDT [facility] Comment:Accuracy of a glucos e result obtained from a capillary whole blood specimen relies upon adequate, non-compromised capillary blood flow. If the capillary glucose result is not consistent with the patient's clinical signs and symptoms, glucose testing should be repeated with either an arterial or venous sample on the glucometer or sent to the main labortory for testing. Comment 03/31/2025 12:34 PM EDT [facility] Retail Pos Specialist ID Kenn Cabrera 03/31/2025 12:34 PM EDT [facility] Device ID [id number] 03/31/2025 12:34 PM EDT [facility] Specimen Type POC Capillary 03/31/2025 12:34 PM EDT [facility] Blood Capillary blood specimen / Unknown 03/31/2025 12:31 PM EDT 03/31/2025 12:34 PM EDT us Ирина Lopez MD LAB POINT OF CARE TE ST DOCKED DEVICE UNSOLICITED RESULTS Final Result Performing Organization Address City/State/[facility] Co de Phone Number [facility] [address] [place] [address] * (ABNORMAL) POCT glucose meter (03/31/2025 9:08 AM EDT) POCT Glucose 173(H) 74 - 99 mg/dL 03/31/2025 9:09 AM EDT [facility] Comment:Accuracy of a glucos e result obtained from a capillary whole blood specimen relies upon adequate, non-compromised capillary blood flow. If the capillary glucose result is not consistent with the patient's clinical signs and symptoms, glucose testing should be repeated with either an arterial or venous sample on the glucometer or sent to the main labortory for testing. Comment 03/31/2025 9:09 AM EDT [facility] Retail Pos Specialist ID eKnn Cabrera 03/31/2025 9:09 AM EDT [facility] Device ID [id number] 03/31/2025 9:09 AM EDT [facility] Specimen Type POC Capillary 03/31/2025 9:09 AM EDT [facility] Blood Capillary blood specimen / Unknown 03/31/2025 9:08 AM EDT 03/31/2025 9:09 AM EDT us Ирина Lopez MD LAB POINT OF CARE TE ST DOCKED DEVICE UNSOLICITED RESULTS Final Result Performing Organization Address City/[facility]/ZIP Co de Phone Number [facility] [address] [place] [address] * Prepare Leukocyte Reduced RBC: 1 Units (03/31/2025 9:02 AM EDT) Product Code [id number] CH BLOO D BANK Dispense Status Transfused BLOOD BANK Blood Expiration Date [id number] BLOOD BANK Unit Number [id number] CH B LOOD BANK Product Blood Type 6200 BLOOD BANK Blood Type A+ CH BLOOD BANK Crossmatch Compatible BLOOD BANK Other Scarlet Gamboa APRN BLOOD BANK PRODUCT ORDERABLES Final Result Performing Organization Address City/[facility] Co de Phone Number BLOOD BANK [address] [place] [address], * XR Chest 1 View (03/31/2025 6:04 AM EDT) Anatomical Region Laterality Modality Chest Digital Radiogra phy Impressions 03/31/2025 9:22 AM EDT Decreased left pneumothorax. CRITICAL RESULT: No. COMMUNICATION: Per this written report. Drafted by Dagoberto Forrester MD on 03/31/2025 9:21 AM Final report signed by Dagoberto Forrester MD on 03/31/2025 9:22 AM Narrative 03/31/2025 9:22 AM EDT CLINICAL INDICATION: eval lung mccartney TECHNIQUE: XR CHEST 1 VIEW COMPARISON: 03/30/2025 FINDINGS: Left pneumothorax is decreased. Left chest tube remains in place. Stable left basilar opacities. No new pulmonary abnormalities. Stable small left chest wall hematoma. Procedure Note Dagoberto Forrester MD - 03/31/2025 CLINICAL INDICATION: eval lung mccartney TECHNIQUE: XR CHEST 1 VIEW COMPARISON: 03/30/2025 FINDINGS: Left pneumothorax is decreased. Left chest tube remains in place. Stableleft basilar opacities. No new pulmonary abnormalities. Stable small leftchest wall hematoma. IMPRESSION: Decreased left pneumothorax. CRITICAL RESULT: No. COMMUNICATION: Per this written report. Drafted by Dagoberto Forrester MD on 03/31/2025 9:21 AM Final report signed by Dagoberto Forrester MD on 03/31/2025 9:22 AM us Ирина Lopez MD IMG XR PROCEDURES Final Resu lt * (ABNORMAL) Renal Function Panel, Plasma (03/31/2025 2:22 AM EDT) Glucose, Plasma 153(H) 74 - 99 mg/dL 03/31/2025 3:13 AM EDT [facility] BUN, Plasma 21 8 - 23 mg/dL 03/31/2025 3:13 AM EDT [facility] Creatinine, Plasma 1.59(H) 0.70 - 1.20 mg/dL 03/31/2025 3:13 AM EDT [facility] BUN/Creatinine Ratio 13 03/31/2025 3:13 AM EDT [facility] Sodium, Plasma 133(L) 136 - 145 mmol/L 03/31/2025 3:13 AM EDT [facility] Potassium, Plasma 3.6 3.6 - 4.9 mmol/L 03/31/2025 3:13 AM EDT [facility] Chloride, Plasma 102 97 - 107 mmol/L 03/31/2025 3:13 AM EDT [facility] CO2, Plasma 19(L) 22 - 29 mmol/L 03/31/2025 3:13 AM EDT [facility] Anion Gap 12 6 - 16 mmol/L 03/31/2025 3:13 AM EDT [facility] Total Calcium, Plasma 7.0(L) 8.9 - 10.2 mg/dL 03/31/2025 3:13 AM EDT [facility] Phosphorus, Plasma 3.5 2.5 - 4.5 mg/dL 03/31/2025 3:13 AM EDT [facility] Albumin, Plasma 2.9(L) 3.5 - 5.2 g/dL 03/31/2025 3:13 AM EDT [facility] eGFRcr 44.2 mL/min/1.7 3m*2 03/31/2025 3:13 AM EDT [facility] Comment:Reported eGFRcr in m L/min/1.73m2 is based the CKD-EPI 2020 equation that does not use a race coefficient. Blood Venous blood specimen / Unknown Venipuncture / Unknown 03/31/2025 2:22 AM EDT 03/31/2025 2:41 AM EDT Ирина Lopez MD LAB BLOOD ORDERABLES Final R esult Performing Organization Address City/[facility]/ZIP Co de Phone Number [facility] [address] [place] [address] * (ABNORMAL) Magnesium, Plasma (03/31/2025 2:22 AM EDT) Magnesium, Plasma 3.1(H) 1.9 - 2.4 mg/dL 03/31/2025 3:13 AM EDT [facility] Blood Venous blood specimen / Unknown Venipuncture / Unknown 03/31/2025 2:22 AM EDT 03/31/2025 2:41 AM EDT Ирина Lopez MD LAB BLOOD ORDERABLES Final R esult [facility] [address] [place] [address] * (ABNORMAL) CBC W/O Differential (03/31/2025 2:22 AM EDT) WBC Count 7.84 3.70 - 10.30 10*3/uL LAB HEMATOLOGY METHOD 03/31/2025 2:51 AM EDT [facility] RBC Count 2.65(L) 4.60 - 6.10 10*6/uL LAB HEMATOLOGY METHOD 03/31/2025 2:51 AM EDT [facility] HGB 8.0(L) 13.7 - 17.5 g/dL LAB HEMATOLOGY METHOD 03/31/2025 2:51 AM EDT [facility] HCT 24.3(L) 40.0 - 51.0 % LAB HEMATOLOGY METHOD 03/31/2025 2:51 AM EDT [facility] Platelet Count 155 155 - 369 10*3/uL LAB HEMATOLOGY METHOD 03/31/2025 2:51 AM EDT [facility] MCV 92 79 - 98 fL LAB HEMATOLOGY METHOD 03/31/2025 2:51 AM EDT [facility] MCH 30.2 26.0 - 32.0 pg LAB HEMATOLOGY METHOD 03/31/2025 2:51 AM EDT [facility] MCHC 32.9 30.7 - 35.5 g/dL LAB HEMATOLOGY METHOD 03/31/2025 2:51 AM EDT [facility] RDW 13.2 11.5 - 14.5 % LAB HEMATOLOGY METHOD 03/31/2025 2:51 AM EDT [facility] MPV 9.6 8.8 - 12.5 fL LAB HEMATOLOGY METHOD 03/31/2025 2:51 AM EDT [facility] nRBC 0.0 <=0.0 per 100 WBCs LAB HEMATOLOGY METHOD 03/31/2025 2:51 AM EDT [facility] Blood Venous blood specimen / Unknown Venipuncture / Unknown 03/31/2025 2:22 AM EDT 03/31/2025 2:41 AM EDT us Ирина Lopez MD LAB BLOOD ORDERABLES Final R esult [facility] [address] [place] [address] * (ABNORMAL) POCT glucose meter (03/30/2025 8:28 PM EDT) [facility] POCT Glucose 206(H) 74 - 99 mg/dL 03/30/2025 8:30 PM EDT [facility] Comment:Accuracy of a glucos e result obtained from a capillary whole blood specimen relies upon adequate, non-compromised capillary blood flow. If the capillary glucose result is not consistent with the patient's clinical signs and symptoms, glucose testing should be repeated with either an arterial or venous sample on the glucometer or sent to the main labortory for testing. Comment 03/30/2025 8:30 PM EDT [facility] Retail Pos Specialist ID Danuta Laughlin 03/30/2025 8:30 PM EDT [facility] Device ID [id number] 03/30/2025 8:30 PM EDT [facility] Specimen Type POC Capillary 03/30/2025 8:30 PM EDT [facility] Blood Capillary blood specimen / Unknown 03/30/2025 8:28 PM EDT 03/30/2025 8:30 PM EDT us Ирина Lopez MD LAB POINT OF CARE TE ST DOCKED DEVICE UNSOLICITED RESULTS Final Result Performing Organization Address City/State/[facility] Co de Phone Number [facility] [address] [place] [address] * (ABNORMAL) POCT glucose meter (03/30/2025 5:20 PM EDT) POCT Glucose 148(H) 74 - 99 mg/dL 03/30/2025 5:21 PM EDT [facility] Comment:Accuracy of a glucos e result obtained from a capillary whole blood specimen relies upon adequate, non-compromised capillary blood flow. If the capillary glucose result is not consistent with the patient's clinical signs and symptoms, glucose testing should be repeated with either an arterial or venous sample on the glucometer or sent to the main labortory for testing. Comment 03/30/2025 5:21 PM EDT [facility] Retail Pos Specialist ID Halima Ervin 03/30/20 5:21 PM EDT [facility] Device ID [id number] 03/30/2025 5:21 PM EDT [facility] Specimen Type POC Capillary 03/30/2025 5:21 PM EDT [facility] Blood Capillary blood specimen / Unknown 03/30/2025 5:20 PM EDT 03/30/2025 5:21 PM EDT us Ирина Lopez MD LAB POINT OF CARE TE ST DOCKED DEVICE UNSOLICITED RESULTS Final Result [facility] [address] [place] [id number] * XR Chest 1 View (03/30/2025 4:46 PM EDT) Anatomical Region Laterality Modality Chest Digital Radiogra phy Impressions 03/30/2025 5:01 PM EDT Unchanged small left pneumothorax. CRITICAL RESULT: No. COMMUNICATION: Per this written report. Drafted by Merly Saleh MD on 03/30/2025 4:59 PM Final report signed by Merly Saleh MD on 03/30/2025 5:01 PM Narrative 03/30/2025 5:01 PM EDT CLINICAL INDICATION: Decreased suction on chest tube TECHNIQUE: XR CHEST 1 VIEW COMPARISON: 03/30/2025 FINDINGS: Left apically positioned chest tube remains in place. Low basilar atelectasis. Small left apical pneumothorax. Stable cardiac silhouette. Unchanged left rib deformities and soft tissue emphysema. Procedure Note Merly Saleh MD - 03/30/2025 CLINICAL INDICATION: Decreased suction on chest tube TECHNIQUE: XR CHEST 1 VIEW COMPARISON: 03/30/2025 FINDINGS: Left apically positioned chest tube remains in place. Low basilaratelectasis. Small left apical pneumothorax. Stable cardiac silhouette.Unchanged left rib deformities and soft tissue emphysema. IMPRESSION: Unchanged small left pneumothorax. CRITICAL RESULT: No. COMMUNICATION: Per this written report. Drafted by Merly Saleh MD on 03/30/2025 4:59 PM Final report signed by Merly Saleh MD on 03/30/2025 5:01 PM us Scarlet Gamboa GAS LEAK INSPECTOR IMG XR PROCEDURES Final Resul t * (ABNORMAL) POCT glucose meter (03/30/2025 12:48 PM EDT) POCT Glucose 219(H) 74 - 99 mg/dL 03/30/2025 12:49 PM EDT [facility] Comment:Accuracy of a glucos e result obtained from a capillary whole blood specimen relies upon adequate, non-compromised capillary blood flow. If the capillary glucose result is not consistent with the patient's clinical signs and symptoms, glucose testing should be repeated with either an arterial or venous sample on the glucometer or sent to the main labortory for testing. Comment 03/30/2025 12:49 PM EDT [facility] Retail Pos Specialist ID Cata Gibbs 12:49 PM EDT [facility] Device ID [id number] 03/30/2025 12:49 PM EDT [facility] Specimen Type POC Venous 03/30/2025 12:49 PM EDT [facility] Blood Venous blood specimen / Unknown 03/30/2025 12:48 PM EDT 03/30/2025 12:49 PM EDT us Ирина Lopez MD LAB POINT OF CARE TE ST DOCKED DEVICE UNSOLICITED RESULTS Final Result Performing Organization Address [facility] Co de Phone Number [facility] [address] [place] [address] * (ABNORMAL) Magnesium, Plasma (03/30/2025 10:57 AM EDT) Magnesium, Plasma 3.1(H) 1.9 - 2.4 mg/dL 03/30/2025 11:49 AM EDT [facility] Blood Venous blood specimen / Unknown Venipuncture / Unknown 03/30/2025 10:57 AM EDT 03/30/2025 11:16 AM EDT us Scarlet Gamboa APRN LAB BLOOD ORDERABLES Final Re sult [facility] [address] [place] [address] * (ABNORMAL) Renal function panel (03/30/2025 10:57 AM EDT) Glucose, Plasma 236(H) 74 - 99 mg/dL 03/30/2025 11:49 AM EDT [facility] BUN, Plasma 20 8 - 23 mg/dL 03/30/2025 11:49 AM EDT [facility] Creatinine, Plasma 1.64(H) 0.70 - 1.20 mg/dL 03/30/2025 11:49 AM EDT [facility] BUN/Creatinine Ratio 12 03/30/2025 11:49 AM EDT [facility] Sodium, Plasma 132(L) 136 - 145 mmol/L 03/30/2025 11:49 AM EDT [facility] Potassium, Plasma 4.6 3.6 - 4.9 mmol/L 03/30/2025 11:49 AM EDT [facility] Chloride, Plasma 100 97 - 107 mmol/L 03/30/2025 11:49 AM EDT [facility] CO2, Plasma 21(L) 22 - 29 mmol/L 03/30/2025 11:49 AM EDT [facility] Anion Gap 11 6 - 16 mmol/L 03/30/2025 11:49 AM EDT [facility] Total Calcium, Plasma 7.4(L) 8.9 - 10.2 mg/dL 03/30/2025 11:49 AM EDT [facility] Phosphorus, Plasma 2.6 2.5 - 4.5 mg/dL 03/30/2025 11:49 AM EDT [facility] Albumin, Plasma 3.0(L) 3.5 - 5.2 g/dL 03/30/2025 11:49 AM EDT [facility] eGFRcr 42.5 mL/min/1.7 3m*2 03/30/2025 11:49 AM EDT [facility] Comment:Reported eGFRcr in m L/min/1.73m2 is based the CKD-EPI 2020 equation that does not use a race coefficient. Blood Venous blood specimen / Unknown Venipuncture / Unknown 03/30/2025 10:57 AM EDT 03/30/2025 11:16 AM EDT us Ирина Lopez MD LAB BLOOD ORDERABLES Final R esult [facility] [address] [place] [address] * (ABNORMAL) POCT glucose meter (03/30/2025 10:56 AM EDT) POCT Glucose 252(H) 74 - 99 mg/dL 03/30/2025 11:00 AM EDT [facility] Comment:Accuracy of a glucos e result obtained from a capillary whole blood specimen relies upon adequate, non-compromised capillary blood flow. If the capillary glucose result is not consistent with the patient's clinical signs and symptoms, glucose testing should be repeated with either an arterial or venous sample on the glucometer or sent to the main labortory for testing. Comment 03/30/2025 11:00 AM EDT [facility] Retail Pos Specialist ID Cata Gibbs 11:00 AM EDT [facility] Device ID [id number] 03/30/2025 11:00 AM EDT [facility] Specimen Type POC Venous 03/30/2025 11:00 AM EDT [facility] Blood Venous blood specimen / Unknown 03/30/2025 10:56 AM EDT 03/30/2025 11:00 AM EDT us Ирина Lopez MD LAB POINT OF CARE TE ST DOCKED DEVICE UNSOLICITED RESULTS Final Result Performing Organization Address City/State/[facility] Co de Phone Number [facility] [address] [place] [address] * (ABNORMAL) POCT glucose meter (03/30/2025 9:38 AM EDT) [facility] POCT Glucose 271(H) 74 - 99 mg/dL 03/30/2025 9:39 AM EDT [facility] Comment:Accuracy of a glucos e result obtained from a capillary whole blood specimen relies upon adequate, non-compromised capillary blood flow. If the capillary glucose result is not consistent with the patient's clinical signs and symptoms, glucose testing should be repeated with either an arterial or venous sample on the glucometer or sent to the main labortory for testing. Comment 03/30/2025 9:39 AM EDT [facility] [employer] Specialist ID Cata Gibbs 9:39 AM EDT [facility] Device ID [id number] 03/30/2025 9:39 AM EDT [facility] Specimen Type POC Venous 03/30/2025 9:39 AM EDT [facility] Blood Venous blood specimen / Unknown 03/30/2025 9:38 AM EDT 03/30/2025 9:39 AM EDT Ирина Lopez MD LAB POINT OF CARE TE ST DOCKED DEVICE UNSOLICITED RESULTS Final Result Performing Organization Address [facility] - [place] Co de Phone Number HEALTHCARE LAB [address] [place] [address] * ECG Adult (03/30/2025 8:37 AM EDT) EKG DIAGNOSIS CLASS Abnormal MUSE ECG Ventricular Rate 81 BPM MUSE ECG Atrial Rate 81 BPM MUSE ECG IN Interval 170 ms MUSE ECG QRSD Interval 104 ms MUSE ECG QT Interval 416 ms MUSE ECG QTC Interval 483 ms MUSE ECG P [place] 39 degrees MUSE ECG R [place] -51 degrees MUSE ECG T Wave [place] -15 degrees MUSE ECG Diagnosis Poor data quality, interpretation may be adversely affected MUSE ECG Diagnosis Normal sinus rhythm MUSE ECG Diagnosis Left anterior fascicular block MUSE ECG Diagnosis Moderate voltage criteria for LVH, may be normal variant ( R in aVL , [place] product ) MUSE ECG Diagnosis Possible Anterolateral infarct , age undetermined MUSE ECG Diagnosis QTcB >= 480 msec MUSE ECG Diagnosis Abnormal ECG MUSE ECG Diagnosis MUSE ECG Diagnosis Confirmed by Carey Michel ([id number]) on 03/30/2025 9:40:26 AM MUSE ECG 03/30/2025 8:37 AM EDT 03/30/2025 9:40 AM EDT Ирина Lopez MD ECG ORDERABLES Final Result Performing Organization Address [facility] [place]/[facility] de Phone Number MUSE ECG * (ABNORMAL) POCT glucose meter (03/30/2025 8:10 AM EDT) Pathologist [facility] POCT Glucose 164(H) 74 - 99 mg/dL 03/30/2025 8:11 AM EDT [employer] [facility] Comment:Accuracy of a glucos e result obtained from a capillary whole blood specimen relies upon adequate, non-compromised capillary blood flow. If the capillary glucose result is not consistent with the patient's clinical signs and symptoms, glucose testing should be repeated with either an arterial or venous sample on the glucometer or sent to the main labortory for testing. Comment 03/30/2025 8:11 AM EDT [facility] Retail Pos Specialist ID Cata Gibbs 8:11 AM EDT [facility] Device ID [id number] 03/30/2025 8:11 AM EDT [facility] Specimen Type POC Venous 03/30/2025 8:11 AM EDT [facility] Blood Venous blood specimen / Unknown 03/30/2025 8:10 AM EDT 03/30/2025 8:11 AM EDT us Ирина Lopez MD LAB POINT OF CARE TE ST DOCKED DEVICE UNSOLICITED RESULTS Final Result [facility] [address] [place] [id number] * (ABNORMAL) Renal function panel (03/30/2025 4:05 AM EDT) Glucose, Plasma 207(H) 74 - 99 mg/dL 03/30/2025 4:40 AM EDT [facility] BUN, Plasma 18 8 - 23 mg/dL 03/30/2025 4:40 AM EDT [facility] Creatinine, Plasma 1.41(H) 0.70 - 1.20 mg/dL 03/30/2025 4:40 AM EDT [facility] BUN/Creatinine Ratio 13 03/30/2025 4:40 AM EDT [facility] Sodium, Plasma 134(L) 136 - 145 mmol/L 03/30/2025 4:40 AM EDT [facility] Potassium, Plasma 5.8(H) 3.6 - 4.9 mmol/L 03/30/2025 4:40 AM EDT [facility] Chloride, Plasma 101 97 - 107 mmol/L 03/30/2025 4:40 AM EDT [facility] CO2, Plasma 20(L) 22 - 29 mmol/L 03/30/2025 4:40 AM EDT [facility] Anion Gap 13 6 - 16 mmol/L 03/30/2025 4:40 AM EDT [facility] Total Calcium, Plasma 7.7(L) 8.9 - 10.2 mg/dL 03/30/2025 4:40 AM EDT [facility] Phosphorus, Plasma 3.0 2.5 - 4.5 mg/dL 03/30/2025 4:40 AM EDT [facility] Albumin, Plasma 3.2(L) 3.5 - 5.2 g/dL 03/30/2025 4:40 AM EDT [facility] eGFRcr 51.0 mL/min/1.7 3m*2 03/30/2025 4:40 AM EDT [facility] Comment:Reported eGFRcr in m L/min/1.73m2 is based the CKD-EPI 2020 equation that does not use a race coefficient. Blood Arterial blood specimen / Unknown Arterial Puncture / Unknown 03/30/2025 4:05 AM EDT 03/30/2025 4:11 AM EDT Ирина Lopez MD LAB BLOOD ORDERABLES Final R esult Performing Organization Address [place]/[facility]/ZIP Co de Phone Number [facility] [address] [place] [address] * (ABNORMAL) Magnesium (03/30/2025 4:05 AM EDT) Magnesium, Plasma 1.4(L) 1.9 - 2.4 mg/dL 03/30/2025 4:40 AM EDT [facility] Blood Arterial blood specimen / Unknown Arterial Puncture / Unknown 03/30/2025 4:05 AM EDT 03/30/2025 4:11 AM EDT Ирина Lopez MD LAB BLOOD ORDERABLES Final R esult [facility] [address] [place] [address] * (ABNORMAL) CBC W/O Differential (03/30/2025 4:05 AM EDT) WBC Count 9.64 3.70 - 10.30 10*3/uL LAB HEMATOLOGY METHOD 03/30/2025 4:19 AM EDT [facility] RBC Count 2.91(L) 4.60 - 6.10 10*6/uL LAB HEMATOLOGY METHOD 03/30/2025 4:19 AM EDT [facility] HGB 8.8(L) 13.7 - 17.5 g/dL LAB HEMATOLOGY METHOD 03/30/2025 4:19 AM EDT [facility] HCT 25.8(L) 40.0 - 51.0 % LAB HEMATOLOGY METHOD 03/30/2025 4:19 AM EDT [facility] Platelet Count 190 155 - 369 10*3/uL LAB HEMATOLOGY METHOD 03/30/2025 4:19 AM EDT [facility] MCV 89 79 - 98 fL LAB HEMATOLOGY METHOD 03/30/2025 4:19 AM EDT [facility] MCH 30.2 26.0 - 32.0 pg LAB HEMATOLOGY METHOD 03/30/2025 4:19 AM EDT [facility] MCHC 34.1 30.7 - 35.5 g/dL LAB HEMATOLOGY METHOD 03/30/2025 4:19 AM EDT [facility] RDW 12.6 11.5 - 14.5 % LAB HEMATOLOGY METHOD 03/30/2025 4:19 AM EDT [facility] MPV 9.6 8.8 - 12.5 fL LAB HEMATOLOGY METHOD 03/30/2025 4:19 AM EDT [facility] nRBC 0.0 <=0.0 per 100 WBCs LAB HEMATOLOGY METHOD 03/30/2025 4:19 AM EDT [facility] Blood Arterial blood specimen / Unknown Arterial Puncture / Unknown 03/30/2025 4:05 AM EDT 03/30/2025 4:11 AM EDT us Ирина Lopez MD LAB BLOOD ORDERABLES Final R esult [facility] [address] [place] [address] * XR Chest 1 View (03/30/2025 1:35 AM EDT) Anatomical Region Laterality Modality Chest Digital Radiogra phy Impressions 03/30/2025 6:07 AM EDT Slight increase in size in the small left apical pneumothorax. Increased volume loss and/or effusion left base. CRITICAL RESULT: No. COMMUNICATION: Per this written report. Drafted by Jaqueline Delacruz MD on 03/30/2025 6:05 AM Final report signed by Jaqueline Delacruz MD on 03/30/2025 6:07 AM Narrative 03/30/2025 6:07 AM EDT CLINICAL INDICATION: Evaluation of lung mccartney TECHNIQUE: XR CHEST 1 VIEW COMPARISON: 03/29/2025 FINDINGS: Left chest tube remains in position. Slight increase in size in the small left apical pneumothorax. Increased volume loss and/or effusion left base. Left rib deformities. Stable heart size. Procedure Note Jaqueline Delacruz MD - 03/30/2025 CLINICAL INDICATION: Evaluation of lung mccartney TECHNIQUE: XR CHEST 1 VIEW COMPARISON: 03/29/2025 FINDINGS: Left chest tube remains in position. Slight increase in size in the smallleft apical pneumothorax. Increased volume loss and/or effusion left base.Left rib deformities. Stable heart size. IMPRESSION: Slight increase in size in the small left apical pneumothorax. Increasedvolume loss and/or effusion left base. CRITICAL RESULT: No. COMMUNICATION: Per this written report. Drafted by Jaqueline Delacruz MD on 03/30/2025 6:05 AM Final report signed by Jaqueline Delacruz MD on 03/30/2025 6:07 AM us Ирина Lopez MD IMG XR PROCEDURES Final Resu lt * XR Chest 1 View (03/29/2025 8:05 PM EDT) Anatomical Region Laterality Modality Chest Digital Radiogra phy Impressions 03/29/2025 9:18 PM EDT Small left pneumothorax with chest tube in place. CRITICAL RESULT: No. COMMUNICATION: Per this written report. Drafted by Merly Saleh MD on 03/29/2025 9:17 PM Final report signed by Merly Saleh MD on 03/29/2025 9:18 PM Narrative 03/29/2025 9:18 PM EDT CLINICAL INDICATION: Postprocedure TECHNIQUE: XR CHEST 1 VIEW COMPARISON: None. FINDINGS: Left apically positioned chest tube. Left basilar atelectasis. Right lung is clear. Small left apical pneumothorax. Cardiac silhouette is within normal limits. Left-sided rib deformities. Procedure Note Merly Saleh MD - 03/29/2025 CLINICAL INDICATION: Postprocedure TECHNIQUE: XR CHEST 1 VIEW COMPARISON: None. FINDINGS: Left apically positioned chest tube. Left basilar atelectasis. Right lungis clear. Small left apical pneumothorax. Cardiac silhouette is withinnormal limits. Left- sided rib deformities. IMPRESSION: Small left pneumothorax with chest tube in place. CRITICAL RESULT: No. COMMUNICATION: Per this written report. Drafted by Merly Saleh MD on 03/29/2025 9:17 PM Final report signed by Merly Saleh MD on 03/29/2025 9:18 PM Ирина Lopez MD IMG XR PROCEDURES Final Resu lt * Creatinine, Plasma (03/29/2025 7:58 PM EDT) Creatinine, Plasma 1.08 0.70 - 1.20 mg/dL 03/29/2025 8:39 PM EDT [facility] eGFRcr 70.2 mL/min/1.7 3m*2 03/29/2025 8:39 PM EDT [facility] Comment:Reported eGFRcr in m L/min/1.73m2 is based the CKD-EPI 2020 equation that does not use a race coefficient. Blood Arterial blood specimen / Unknown Arterial Puncture / Unknown 03/29/2025 7:58 PM EDT 03/29/2025 8:05 PM EDT Ирина Lopez MD LAB BLOOD ORDERABLES Final R esult [facility] [address] [place] [address] * (ABNORMAL) Renal Function Panel, Plasma (03/29/2025 7:58 PM EDT) Glucose, Plasma 183(H) 74 - 99 mg/dL 03/29/2025 8:39 PM EDT [facility] BUN, Plasma 13 8 - 23 mg/dL 03/29/2025 8:39 PM EDT [facility] Creatinine, Plasma 1.08 0.70 - 1.20 mg/dL 03/29/2025 8:39 PM EDT [facility] BUN/Creatinine Ratio 12 03/29/2025 8:39 PM EDT [facility] Sodium, Plasma 136 136 - 145 mmol/L 03/29/2025 8:39 PM EDT [facility] Potassium, Plasma 4.4 3.6 - 4.9 mmol/L 03/29/2025 8:39 PM EDT [facility] Chloride, Plasma 104 97 - 107 mmol/L 03/29/2025 8:39 PM EDT [facility] CO2, Plasma 21(L) 22 - 29 mmol/L 03/29/2025 8:39 PM EDT [facility] Anion Gap 11 6 - 16 mmol/L 03/29/2025 8:39 PM EDT [facility] Total Calcium, Plasma 7.9(L) 8.9 - 10.2 mg/dL 03/29/2025 8:39 PM EDT [facility] Phosphorus, Plasma 2.9 2.5 - 4.5 mg/dL 03/29/2025 8:39 PM EDT [facility] Albumin, Plasma 3.2(L) 3.5 - 5.2 g/dL 03/29/2025 8:39 PM EDT [facility] eGFRcr 70.2 mL/min/1.7 3m*2 03/29/2025 8:39 PM EDT [facility] Comment:Reported eGFRcr in m L/min/1.73m2 is based the CKD-EPI 2020 equation that does not use a race coefficient. Blood Arterial blood specimen / Unknown Arterial Puncture / Unknown 03/29/2025 7:58 PM EDT 03/29/2025 8:05 PM EDT us Ирина Lopez MD LAB BLOOD ORDERABLES Final R esult [facility] [address] [place] [address] * (ABNORMAL) Magnesium, Plasma (03/29/2025 7:58 PM EDT) Magnesium, Plasma 1.3(L) 1.9 - 2.4 mg/dL 03/29/2025 8:39 PM EDT [facility] Blood Arterial blood specimen / Unknown Arterial Puncture / Unknown 03/29/2025 7:58 PM EDT 03/29/2025 8:05 PM EDT us Ирина Lopez MD LAB BLOOD ORDERABLES Final R esult Performing Organization Address City/[facility]/ZIP Co de Phone Number [facility] [address] [place] [address] * Fibrinogen (03/29/2025 7:58 PM EDT) Fibrinogen, Quantitative (Clottable) 294 208 - 459 mg/dL LAB COAGULATION METHOD 03/29/2025 8:38 PM EDT [facility] Blood Arterial blood specimen / Unknown Arterial Puncture / Unknown 03/29/2025 7:58 PM EDT 03/29/2025 8:05 PM EDT us Kiana Gusman CRNA LAB BLOOD ORDERABLES Final R esult [facility] [address] [place] [address] * Protime-INR (03/29/2025 7:58 PM EDT) Prothrombin Time 13.8 12.0 - 14.3 sec LAB COAGULATION METHOD 03/29/2025 8:38 PM EDT [facility] INR 1.0 0.9 - 1.1 LAB COAGULATION METHOD 03/29/2025 8:38 PM EDT [facility] Blood Arterial blood specimen / Unknown Arterial Puncture / Unknown 03/29/2025 7:58 PM EDT 03/29/2025 8:05 PM EDT Narrative [facility] - 03/29/2025 8:38 PM EDT OPTIMAL INR RANGES FOR PATIENT ON ORAL ANTICOAGULANT THERAPY Prevention of venous thromboembolism INR 2.0 to 3.0 In patients with heart disease: Atrial fibrillation INR 2.0 to 3.0 Valvular heart disease INR 2.0 to 3.0 Tissue heart valves INR 2.0 to 3.0 Mechanical prosthetic valves INR 2.5 to 3.5 Prevention of recurrent [place] INR 2.5 to 3.5 us Kaina Gusman CRNA LAB BLOOD ORDERABLES Final R esult [facility] [address] [place] [address] * (ABNORMAL) CBC and differential (03/29/2025 7:58 PM EDT) WBC Count 8.18 3.70 - 10.30 10*3/uL LAB HEMATOLOGY METHOD 03/29/2025 8:29 PM EDT [facility] RBC Count 3.11(L) 4.60 - 6.10 10*6/uL LAB HEMATOLOGY METHOD 03/29/2025 8:29 PM EDT [facility] HGB 9.2(L) 13.7 - 17.5 g/dL LAB HEMATOLOGY METHOD 03/29/2025 8:29 PM EDT [facility] HCT 27.7(L) 40.0 - 51.0 % LAB HEMATOLOGY METHOD 03/29/2025 8:29 PM EDT [facility] Platelet Count 174 155 - 369 10*3/uL LAB HEMATOLOGY METHOD 03/29/2025 8:29 PM EDT [facility] MCV 89 79 - 98 fL LAB HEMATOLOGY METHOD 03/29/2025 8:29 PM EDT [facility] MCH 29.6 26.0 - 32.0 pg LAB HEMATOLOGY METHOD 03/29/2025 8:29 PM EDT [facility] MCHC 33.2 30.7 - 35.5 g/dL LAB HEMATOLOGY METHOD 03/29/2025 8:29 PM EDT [facility] RDW 12.6 11.5 - 14.5 % LAB HEMATOLOGY METHOD 03/29/2025 8:29 PM EDT [facility] MPV 9.3 8.8 - 12.5 fL LAB HEMATOLOGY METHOD 03/29/2025 8:29 PM EDT [facility] nRBC 0.0 <=0.0 per 100 WBCs LAB HEMATOLOGY METHOD 03/29/2025 8:29 PM EDT [facility] Differential Type Automated LAB HEMATOLOGY METHOD 03/29/2025 8:29 PM EDT [facility] Neutrophils % 86 % LAB HEMATOLOGY METHOD 03/29/2025 8:29 PM EDT [facility] Lymphocytes % 9 % LAB HEMATOLOGY METHOD 03/29/2025 8:29 PM EDT [facility] Monocytes % 5 % LAB HEMATOLOGY METHOD 03/29/2025 8:29 PM EDT [facility] Eosinophils % 0 % LAB HEMATOLOGY METHOD 03/29/2025 8:29 PM EDT [facility] Basophils % 0 % LAB HEMATOLOGY METHOD 03/29/2025 8:29 PM EDT [facility] Immature Granulocytes % 0 % LAB HEMATOLOGY METHOD 03/29/2025 8:29 PM EDT [facility] Neutrophils Absolute 7.00(H) 1.60 - 6.10 10*3/uL LAB HEMATOLOGY METHOD 03/29/2025 8:29 PM EDT [facility] Lymphocytes Absolute 0.71(L) 1.20 - 3.90 10*3/uL LAB HEMATOLOGY METHOD 03/29/2025 8:29 PM EDT [facility] Monocytes Absolute 0.40 0.30 - 0.90 10*3/uL LAB HEMATOLOGY METHOD 03/29/2025 8:29 PM EDT [facility] Eosinophils Absolute 0.02 0.00 - 0.50 10*3/uL LAB HEMATOLOGY METHOD 03/29/2025 8:29 PM EDT [facility] Basophils Absolute 0.02 0.00 - 0.10 10*3/uL LAB HEMATOLOGY METHOD 03/29/2025 8:29 PM EDT [facility] Immature Granulocytes Absolute 0.03 0.00 - 0.06 10*3/uL LAB HEMATOLOGY METHOD 03/29/2025 8:29 PM EDT [facility] Blood Arterial blood specimen / Unknown Arterial Puncture / Unknown 03/29/2025 7:58 PM EDT 03/29/2025 8:04 PM EDT [facility] - 03/29/2025 8:29 PM EDT Therapeutic decision making should be based on absolute values, rather than percentages. us Kiana Gusman CRNA LAB BLOOD ORDERABLES Final R esult [facility] [address] [place] [address] * (ABNORMAL) POCT glucose meter (03/29/2025 7:43 PM EDT) POCT Glucose 153(H) 74 - 99 mg/dL 03/29/2025 7:45 PM EDT [facility] Comment:Accuracy of a glucos e result obtained from a capillary whole blood specimen relies upon adequate, non-compromised capillary blood flow. If the capillary glucose result is not consistent with the patient's clinical signs and symptoms, glucose testing should be repeated with either an arterial or venous sample on the glucometer or sent to the main labortory for testing. Comment 03/29/2025 7:45 PM EDT [facility] Retail Pos Specialist ID Radha Slater 03/29/20 7:45 PM EDT [facility] Device ID [id number] 03/29/2025 7:45 PM EDT [facility] Specimen Type POC Capillary 03/29/2025 7:45 PM EDT [facility] Blood Capillary blood specimen / Unknown 03/29/2025 7:43 PM EDT 03/29/2025 7:45 PM EDT us Ирина Lopez MD LAB POINT OF CARE TE ST DOCKED DEVICE UNSOLICITED RESULTS Final Result [facility] [address] [place] [address] * Surgical Pathology Exam (03/29/2025 5:10 PM EDT) Case Report Surgical Pathology Case: [id number] Authorizing Provider: Ирина Lopez MD Collected: 03/29/2025 1716 Ordering Location: [facility] Received: 03/30/2025 0756 Pathologist: Cindy Miller MD Intraop: Elizabeth Gibbs MD Specimens: A) - Lung, Left Upper Lobe, bronchial margin B) - Lymph Node (specify site):, level 5 lymph node x1 C) - Lymph Node (specify site):, level 6 lymph node x1 D) - Lymph Node (specify site):, level 10 lymph node x8 E) - Lymph Node (specify site):, Level 7 lymph node x3 F) - Lung, Left Upper Lobe, remaining left upper lobe G) - Other (specify site), lipoma 5 2:45 PM EDT [facility] Final Diagnosis A. LUNG, BRONCHIAL MARGIN, EXCISION, FROZEN, FSA: - NEGATIVE FOR MALIGNANCY. B. LYMPH NODE, LEVEL 5, DISSECTION: - ONE LYMPH NODE NEGATIVE FOR MALIGNANCY (0/1). C. LYMPH NODE, LEVEL 6, DISSECTION: - ADIPOSE TISSUE, NO LYMPHOID TISSUE IDENTIFIED. D. LYMPH NODE, LEVEL 10, DISSECTION: - SEVEN LYMPH NODES NEGATIVE FOR MALIGNANCY (0/7). E. LYMPH NODE, LEVEL 7, DISSECTION: - THREE LYMPH NODES NEGATIVE FOR MALIGNANCY (0/3). F. LUNG, LEFT UPPER LOBE, RESECTION: - INVASIVE ACINAR ADENOCARCINOMA OF LUNG, GRADE 2 (STAGE pT2a pN0, SEE SYNOPTIC CHECKLIST FOR DETAILS). - TWO PERIHILAR LYMPH NODES, NEGATIVE FOR MALIGNANCY (0/2). G. SOFT TISSUE, EXCISION: - LIPOMA. 5 2:45 PM EDT [facility] at 1445 EDT Synoptic Checklist LUNG LUNG - All Specimens AJCC 9 - Protocol posted: 09/23/2024 SPECIMEN Procedure: Lobectomy Specimen Laterality: Left TUMOR Tumor Focality: Single focus Tumor Site: Upper lobe of lung Tumor Size: Invasive Tumor Size: Greatest Dimension (Centimeters): 2.6 cm Total Tumor Size: Greatest Dimension (Centimeters): 2.6 cm Additional Dimension (Centimeters): 1.7 cm Additional Dimension (Centimeters): 1.4 cm Histologic Type: Invasive acinar adenocarcinoma Histologic Patterns: Acinar: 80 Histologic Patterns: Lepidic: 15 Histologic Patterns: Complex glands (cribriform and fused glands): 5 Histologic Grade: G2, moderately differentiated Spread Through Air Spaces (COLLINS): Not identified Visceral Pleura Invasion: Present Direct Invasion of Other Structures: Not applicable (no other structures present) Treatment Effect: No known presurgical therapy Lymphatic and / or Vascular Invasion: Not identified MARGINS Margin Status for Invasive Tumor: All margins negative for invasive tumor Closest Margin(s) to Invasive Tumor: Parenchymal Distance from Invasive Tumor to Closest Margin: 3 cm Margin Status for Non-Invasive Tumor: All margins negative for non-invasive tumor REGIONAL LYMPH NODES Lymph Node(s) from Prior Procedures: Not included Regional Lymph Node Status: : All regional lymph nodes negative for tumor Number of Lymph Nodes Examined: 13 Nydia Site(s) Examined: 7: Subcarinal Nydia Site(s) Examined: 5: Subaortic / aortopulmonary (AP) / AP window Nydia Site(s) Examined: 6: Para-aortic (ascending aorta or phrenic) Nydia Site(s) Examined: 10L: Hilar Nydia Site(s) Examined: 12L-14L: Intrapulmonary pTNM CLASSIFICATION (AJCC Version 9) Reporting of pT, pN, and (when applicable) pM categories is based on information available to the pathologist at the time the report is issued. As per the AJCC (Chapter 1, 8th Ed.) it is the managing physician's responsibility to establish the final pathologic stage based upon all pertinent information, including but potentially not limited to this pathology report. pT Category: pT2a pN Category: pN0 5 2:45 PM EDT [facility] Clinical Information Non-small cell cancer of left lung 5 2:45 PM EDT [facility] Intraoperative Consultation A. BRONCHIAL MARGIN FSA: No tumor seen. Todd Gibbs MD. 03/29/2025 @ 1745. 5 2:45 PM EDT [facility] Special and Immunohistochemical Stains Special Stain: [id number] Elastic Trichrome: Demonstrates visceral pleural invasion F8-2 Elastic Trichrome: Demonstrates visceral pleural invasion All controls show appropriate reactivity. All immunohistochemis try, in situ hybridization, and histochemical tests were developed by and are performed at the [facility], [address] [place] [address]. All tests reported here, except those addressing [...] likelihood of false negativity on decalcified specimens. 5 2:45 PM EDT [facility] Gross Description A. BRONCHIAL MARGIN The specimen is received fresh for frozen section, labeled b ronchial margin , and consists of a 1.5 x 1.0 x 0.4 cm leggett-pink portion of soft tissue. The specimen is entirely submitted for frozen section, and remainder of the block is submitted in cassette A1. SWATI Wong (ASCP) B. LEVEL 5 LYMPH NODE X1 The specimen is received fresh and placed in formalin, labeled l evel five lymph node , consists of a 2.2 x 1.3 x 0.7 cm anthracotic lymph node. The lymph node is serially sectioned and entirely submitted in cassettes B1-B3. Cold Time: 14h 47m C. LEVEL 6 LYMPH NODE X1 The specimen is received fresh and placed in formalin, labeled l evel six lymph node , and consists of a 0.8 x 0.7 x 0.4 cm anthracotic lymph node. The lymph node is bisected and entirely submitted in cassette C1. Cold Time: 14h 45m SWATI Wong (ASCP) D. LEVEL 10 LYMPH NODE X8 The specimen is received fresh and placed in formalin, labeled l evel 10 lymph node , and consists of seven anthracotic lymph node fragments that range from 0.3-1.6 cm in greatest dimension. The lymph nodes are entirely submitted as follows: D1: Two intact fragments D2: Three intact fragments D3: Two intact fragments Cold Time: 14h 44m SWATI Wong (ASCP) E. LEVEL 7 LYMPH NODE X3 The specimen is received fresh and placed in formalin, labeled l evel seven lymph node , and consists of three anthracotic lymph node fragments that range from 0.4-0.6 cm in greatest dimension. The specimen is entirely submitted in cassettes E1. Cold Time: 14h 43m SWATI Wong (ASCP) F. REMAINING LEFT UPPER LOBE The specimen is received fresh and placed in formalin, labeled r emaining left upper lobe , and consists of a 169.8 g, 14.1 x 1.6 x 6.1 cm lobectomy. There is a 1.8 x 2.2 cm area of pleural puckering. This area is inked blue. The remaining pleura is pink-red and slightly hemorrhagic with a mild amount of anthracotic pigment. The 2.5, 3.0, and 5.0 cm stapled lines are excised and the underlying soft tissue is inked black. Upon sectioning, at the periphery, subjacent to the area of pleural puckering, there is a 2.6 x 1.6 x 1.4 cm leggett-white, firm, and well-defined mass. The mass abuts the pleura, is 3.0 cm from the nearest stapled margin, and greater than 5.0 cm from the nearest bronchial and vascular margins. The remaining cut surface is leggett-pink and spongy. No other masses are identified. Two anthracotic lymph nodes that range from 0.3-0.6 cm in greatest dimension are identified. [facility] sections are submitted as follows: F1: Bronchial margin F2: Vascular margins F3: Nearest stapled margin, en face F4: Grossly unremarkable parenchyma F5-F10: Mass, entirely submitted F11: Two intact lymph nodes Cold Time: 13h 43m SWATI Wong (ASCP) G. LIPOMA The specimen is received fresh and placed in formalin, labeled l ipoma , and consists of a 5.8 x 5.6 x 2.1 cm unoriented portion of leggett-yellow lobulated fibroadipose tissue. The external surface is inked blue. Sectioning reveals a leggett-yellow lobulated cut surface. No areas of hemorrhage or necrosis are identified. Health And Wellness Manager sections are submitted in cassettes G1-G3. Cold Time: 13h 05m SWATI Wong (ASCP) 5 2:45 PM EDT [facility] Note: A resident was involved in the service. I attest I examined the relevant preparations for the specimens and confirmed the diagnosis or interpretation. 5 2:45 PM EDT [facility] Tissue Structure of lymph node / Unknown 03/29/2025 5:10 PM EDT 03/30/2025 7:57 AM EDT Comment:Pre-op diagnosis: Non-small cell cancer of left lung Tissue specimen (specimen) Structure of lymph node / Unknown 03/29/2025 5:12 PM EDT 03/30/2025 7:57 AM EDT Comment:Pre-op diagnosis: Non-small cell cancer of left lung Tissue specimen (specimen) Structure of lymph node / Unknown 03/29/2025 5:13 PM EDT 03/30/2025 7:57 AM EDT Comment:Pre-op diagnosis: Non-small cell cancer of left lung Tissue specimen (specimen) Structure of lymph node / Unknown 03/29/2025 5:14 PM EDT 03/30/2025 7:57 AM EDT Comment:Pre-op diagnosis: Non-small cell cancer of left lung Tissue specimen (specimen) Structure of upper lobe of left lung / Unknown 03/29/2025 5:16 PM EDT 03/30/2025 7:55 AM EDT Comment:Pre-op diagnosis: Non-small cell cancer of left lung Tissue specimen (specimen) Structure of upper lobe of left lung / Unknown 03/29/2025 6:14 PM EDT 03/30/2025 7:57 AM EDT Comment:Pre-op diagnosis: Non-small cell cancer of left lung Tissue specimen (specimen) Topography unknown / Unknown 03/29/2025 6:52 PM EDT 03/30/2025 7:57 AM EDT Comment:Pre-op diagnosis: Non-small cell cancer of left lung us Ирина Lopez MD LAB PATHOLOGY ORDERABLES Fin al Result [facility] [address] [place] [address] * (ABNORMAL) Blood gas panel, arterial (03/29/2025 4:05 PM EDT) pH, Arterial 7.38 7.31 - 7.42 LAB HEMATOLOGY METHOD 03/29/2025 4:13 PM EDT [facility] pCO2, Arterial 45 32 - 45 mmHg LAB HEMATOLOGY METHOD 03/29/2025 4:13 PM EDT [facility] pO2, Arterial 216 >70 mmHg LAB HEMATOLOGY METHOD 03/29/2025 4:13 PM EDT [facility] SO2, Measured, Arterial 100(H) 94 - 98 % LAB HEMATOLOGY METHOD 03/29/2025 4:13 PM EDT [facility] Base Excess, Arterial 1.2 -2.0 - 3.0 mmol/L LAB HEMATOLOGY METHOD 03/29/2025 4:13 PM EDT [facility] Bicarbonate, Calculated, Arterial 27(H) 22 - 26 mmol/L LAB HEMATOLOGY METHOD 03/29/2025 4:13 PM EDT [facility] Hematocrit, Whole Blood 31.6(L) 40.0 - 51.0 % LAB HEMATOLOGY METHOD 03/29/2025 4:13 PM EDT [facility] Sodium, Whole Blood 138 136 - 145 mmol/L LAB HEMATOLOGY METHOD 03/29/2025 4:13 PM EDT [facility] Potassium, Whole Blood 3.8 3.6 - 4.9 mmol/L LAB HEMATOLOGY METHOD 03/29/2025 4:13 PM EDT [facility] Chloride, Whole Blood 103 97 - 107 mmol/L LAB HEMATOLOGY METHOD 03/29/2025 4:13 PM EDT [facility] Glucose, Whole Blood 123(H) 74 - 99 mg/dL LAB HEMATOLOGY METHOD 03/29/2025 4:13 PM EDT [facility] Ionized Calcium, Whole Blood 4.4(L) 4.6 - 5.1 mg/dL LAB HEMATOLOGY METHOD 03/29/2025 4:13 PM EDT [facility] Lactate, Arterial, Whole Blood 0.8 0.5 - 1.6 mmol/L LAB HEMATOLOGY METHOD 03/29/2025 4:13 PM EDT [facility] Blood Arterial blood specimen / Unknown 03/29/2025 4:05 PM EDT 03/29/2025 4:11 PM EDT Comment:Pre-op diagnosis: Non-small cell cancer of left lung us Ирина Lopez MD LAB BLOOD ORDERABLES Final R esult [facility] [address] [place] [address] * APTT (03/29/2025 4:04 PM EDT) aPTT 28 25 - 35 sec LAB COAGULATION METHOD 03/29/2025 4:39 PM EDT [facility] Blood Arterial blood specimen / Unknown 03/29/2025 4:04 PM EDT 03/29/2025 4:18 PM EDT Comment:Pre-op diagnosis: Non-small cell cancer of left lung us Ирина Lopez MD LAB BLOOD ORDERABLES Final R esult Performing Organization Address [facility]/ZIP Co de Phone Number [facility] [address] [place] [address] * Prothrombin Time/INR (03/29/2025 4:04 PM EDT) Prothrombin Time 13.4 12.0 - 14.3 sec LAB COAGULATION METHOD 03/29/2025 4:39 PM EDT [facility] INR 1.0 0.9 - 1.1 LAB COAGULATION METHOD 03/29/2025 4:39 PM EDT [facility] Blood Arterial blood specimen / Unknown 03/29/2025 4:04 PM EDT 03/29/2025 4:18 PM EDT Comment:Pre-op diagnosis: Non-small cell cancer of left lung Narrative [facility] - 03/29/2025 4:39 PM EDT OPTIMAL INR RANGES FOR PATIENT ON ORAL ANTICOAGULANT THERAPY Prevention of venous thromboembolism INR 2.0 to 3.0 In patients with heart disease: Atrial fibrillation INR 2.0 to 3.0 Valvular heart disease INR 2.0 to 3.0 Tissue heart valves INR 2.0 to 3.0 Mechanical prosthetic valves INR 2.5 to 3.5 Prevention of recurrent UT INR 2.5 to 3.5 Result [facility] Ирина Lopez MD LAB BLOOD ORDERABLES Final R ult Performing Organization Address [facility] Co de Phone Number [facility] [address] [place] [address] * Fibrinogen, Quantitative (Clottable) (03/29/2025 4:04 PM EDT) Fibrinogen, Quantitative (Clottable) 336 208 - 459 mg/dL LAB COAGULATION METHOD 03/29/2025 4:39 PM EDT [facility] Blood Arterial blood specimen / Unknown 03/29/2025 4:04 PM EDT 03/29/2025 4:18 PM EDT Comment:Pre-op diagnosis: Non-small cell cancer of left lung Ирина Lopez MD LAB BLOOD ORDERABLES Final R esult [facility] [address] [place] [address] * (ABNORMAL) CBC W/O Differential (03/29/2025 4:04 PM EDT) WBC Count 3.70 3.70 - 10.30 10*3/uL LAB HEMATOLOGY METHOD 03/29/2025 4:28 PM EDT [facility] RBC Count 3.52(L) 4.60 - 6.10 10*6/uL LAB HEMATOLOGY METHOD 03/29/2025 4:28 PM EDT [facility] HGB 10.5(L) 13.7 - 17.5 g/dL LAB HEMATOLOGY METHOD 03/29/2025 4:28 PM EDT [facility] HCT 31.1(L) 40.0 - 51.0 % LAB HEMATOLOGY METHOD 03/29/2025 4:28 PM EDT [facility] Platelet Count 184 155 - 369 10*3/uL LAB HEMATOLOGY METHOD 03/29/2025 4:28 PM EDT [facility] MCV 88 79 - 98 fL LAB HEMATOLOGY METHOD 03/29/2025 4:28 PM EDT [facility] MCH 29.8 26.0 - 32.0 pg LAB HEMATOLOGY METHOD 03/29/2025 4:28 PM EDT [facility] MCHC 33.8 30.7 - 35.5 g/dL LAB HEMATOLOGY METHOD 03/29/2025 4:28 PM EDT [facility] RDW 12.6 11.5 - 14.5 % LAB HEMATOLOGY METHOD 03/29/2025 4:28 PM EDT [facility] MPV 9.4 8.8 - 12.5 fL LAB HEMATOLOGY METHOD 03/29/2025 4:28 PM EDT [facility] nRBC 0.0 <=0.0 per 100 WBCs LAB HEMATOLOGY METHOD 03/29/2025 4:28 PM EDT [facility] Blood Arterial blood specimen / Unknown 03/29/2025 4:04 PM EDT 03/29/2025 4:20 PM EDT Comment:Pre-op diagnosis: Non-small cell cancer of left lung us Ирина Lopez MD LAB BLOOD ORDERABLES Final R esult [facility] [address] [place] [address] * (ABNORMAL) Blood gas panel, arterial (03/29/2025 2:29 PM EDT) pH, Arterial 7.39 7.31 - 7.42 LAB HEMATOLOGY METHOD 03/29/2025 2:35 PM EDT [facility] pCO2, Arterial 44 32 - 45 mmHg LAB HEMATOLOGY METHOD 03/29/2025 2:35 PM EDT [facility] pO2, Arterial 190 >70 mmHg LAB HEMATOLOGY METHOD 03/29/2025 2:35 PM EDT [facility] SO2, Measured, Arterial 100(H) 94 - 98 % LAB HEMATOLOGY METHOD 03/29/2025 2:35 PM EDT [facility] Base Excess, Arterial 1.5 -2.0 - 3.0 mmol/L LAB HEMATOLOGY METHOD 03/29/2025 2:35 PM EDT [facility] Bicarbonate, Calculated, Arterial 27(H) 22 - 26 mmol/L LAB HEMATOLOGY METHOD 03/29/2025 2:35 PM EDT [facility] Hematocrit, Whole Blood 32.4(L) 40.0 - 51.0 % LAB HEMATOLOGY METHOD 03/29/2025 2:35 PM EDT [facility] Sodium, Whole Blood 139 136 - 145 mmol/L LAB HEMATOLOGY METHOD 03/29/2025 2:35 PM EDT [facility] Potassium, Whole Blood 3.6 3.6 - 4.9 mmol/L LAB HEMATOLOGY METHOD 03/29/2025 2:35 PM EDT [facility] Chloride, Whole Blood 104 97 - 107 mmol/L LAB HEMATOLOGY METHOD 03/29/2025 2:35 PM EDT [facility] Glucose, Whole Blood 96 74 - 99 mg/dL LAB HEMATOLOGY METHOD 03/29/2025 2:35 PM EDT [facility] Ionized Calcium, Whole Blood 4.4(L) 4.6 - 5.1 mg/dL LAB HEMATOLOGY METHOD 03/29/2025 2:35 PM EDT [facility] Lactate, Arterial, Whole Blood 1.4 0.5 - 1.6 mmol/L LAB HEMATOLOGY METHOD 03/29/2025 2:35 PM EDT [facility] Blood Arterial blood specimen / Unknown 03/29/2025 2:29 PM EDT 03/29/2025 2:34 PM EDT Comment:Pre-op diagnosis: Non-small cell cancer of left lung us Ирина Lopez MD LAB BLOOD ORDERABLES Final R esult Performing Organization Address City/[facility]/ZIP Co de Phone Number [facility] [address] [place] [address] * (ABNORMAL) POCT glucose meter (03/29/2025 12:48 PM EDT) Pathologist [facility] POCT Glucose 100(H) 74 - 99 mg/dL 03/29/2025 12:50 PM EDT [facility] Comment:Accuracy of a glucos e result obtained from a capillary whole blood specimen relies upon adequate, non-compromised capillary blood flow. If the capillary glucose result is not consistent with the patient's clinical signs and symptoms, glucose testing should be repeated with either an arterial or venous sample on the glucometer or sent to the main labortory for testing. Comment 03/29/2025 12:50 PM EDT [facility] Retail Pos Specialist ID Rosalie Cuevas 03/29/20 12:50 PM EDT [facility] Device ID [id number] 03/29/2025 12:50 PM EDT [facility] Specimen Type POC Venous 03/29/2025 12:50 PM EDT [facility] Blood Venous blood specimen / Unknown 03/29/2025 12:48 PM EDT 03/29/2025 12:50 PM EDT us Ирина Lopez MD LAB POINT OF CARE TE ST DOCKED DEVICE UNSOLICITED RESULTS Final Result Performing Organization Address City/[facility]/ZIP Co de Phone Number [facility] [address] [place] [address] * (ABNORMAL) Blood gas, venous (03/29/2025 12:27 PM EDT) Pathologist [facility] pH, Venous 7.36 7.32 - 7.43 LAB HEMATOLOGY METHOD 03/29/2025 12:51 PM EDT [facility] pCO2, Venous 49 40 - 55 mmHg LAB HEMATOLOGY METHOD 03/29/2025 12:51 PM EDT [facility] pO2, Venous 54(H) 25 - 40 mmHg LAB HEMATOLOGY METHOD 03/29/2025 12:51 PM EDT [facility] SO2, Measured, Venous 87(H) 65 - 80 % LAB HEMATOLOGY METHOD 03/29/2025 12:51 PM EDT [facility] Base Excess, Venous 1.7 -2.0 - 3.0 mmol/L LAB HEMATOLOGY METHOD 03/29/2025 12:51 PM EDT [facility] Bicarbonate, Calculated, Venous 28(H) 22 - 26 mmol/L LAB HEMATOLOGY METHOD 03/29/2025 12:51 PM EDT [facility] Hematocrit, Whole Blood 39.2(L) 40.0 - 51.0 % LAB HEMATOLOGY METHOD 03/29/2025 12:51 PM EDT [facility] Sodium, Whole Blood 140 136 - 145 mmol/L LAB HEMATOLOGY METHOD 03/29/2025 12:51 PM EDT [facility] Potassium, Whole Blood 4.0 3.6 - 4.9 mmol/L LAB HEMATOLOGY METHOD 03/29/2025 12:51 PM EDT [facility] Chloride, Whole Blood 103 97 - 107 mmol/L LAB HEMATOLOGY METHOD 03/29/2025 12:51 PM EDT [facility] Glucose, Whole Blood 97 74 - 99 mg/dL LAB HEMATOLOGY METHOD 03/29/2025 12:51 PM EDT [facility] Lactate, Venous, Whole Blood 1.6 0.5 - 2.2 mmol/L LAB HEMATOLOGY METHOD 03/29/2025 12:51 PM EDT [facility] Ionized Calcium, Whole Blood 4.5(L) 4.6 - 5.1 mg/dL LAB HEMATOLOGY METHOD 03/29/2025 12:51 PM EDT [facility] Blood Venous blood specimen / Unknown Venipuncture / Unknown 03/29/2025 12:27 PM EDT 03/29/2025 12:49 PM EDT us Robert Santos MD LAB BLOOD ORDERABLES Final Resu lt [facility] [address] [place] [address] * Type and Screen (03/29/2025 12:27 PM EDT) ABO/Rh A Positive 03/29/2025 12:00 PM EDT [facility] Antibody Screen Negative 03/29/2025 12:00 PM EDT [facility] Specimen Expiration 04/01/2025 23:59 03/29/2025 12:00 PM EDT [facility] Blood Venous blood specimen / Unknown Venipuncture / Unknown 03/29/2025 12:27 PM EDT 03/29/2025 12:47 PM EDT us Robert Santos MD LAB BLOOD BANK TEST ORDERABLES Final Result Performing Organization Address [facility] Co de Phone Number BLOOD BANK [address] [place] [address], documented in this encounter Visit Diagnoses Diagnosis Non-small cell cancer of left lung (CMS/HCC)- Primary Essential hypertension Unspecified essential hypertension CKD (chronic kidney disease) stage 2, GFR 60-89 ml/min Chronic kidney disease, Stage II (mild) Type 2 diabetes mellitus with stage 2 chronic kidney disease, without long-term current use of insulin (CMS/HCC) Anemia Unspecified anemia Electrolyte abnormality Electrolyte and fluid disorders not elsewhere classified Hyponatremia Hyposmolality and/or hyponatremia Non-small cell cancer of left lung (CMS/HCC) documented in this encounter Admitting Diagnoses Diagnosis Non-small cell cancer of left lung (CMS/HCC) documented in this encounter Administered Medications Inactive Administered Medications - up to 3 most recent administrations Medication Order MAR Action Action Date Dose Rate Site acetaminophen (Tylenol) tablet 1,000 mg 1,000 mg, Oral, Once, 1 dose, On Sat03/29/25 at 1245, Routine, Holding - Preprocedure Given 03/29/2025 12:26 PM EDT 1,000 mg acetaminophen (Tylenol) tablet 1,000 mg 1,000 mg, Oral, Every 6 hours scheduled, First dose on Sat03/29/25 at 2030, Until Discontinued, Routine, Recovery(Phase II-Outpatient)/On Unit(Inpatient) Given 04/04/2025 6:15 AM EDT 1,000 mg Given 04/03/2025 11:33 PM EDT 1,000 mg Given 04/03/2025 6:30 PM EDT 1,000 mg aspirin chewable tablet 81 mg 81 mg, Oral, Daily, First dose on Sat03/30/25 at 0900, Until Discontinued, Routine Given 04/04/2025 9:37 AM EDT 81 mg Given 04/03/2025 8:53 AM EDT 81 mg Given 04/02/2025 8:50 AM EDT 81 mg calcium gluconate 1 g in sodium chloride 0.9% 100 mL IVPB (vial adapter required) 1 g, Intravenous, Every 30 min, 2 doses, First dose on Sat03/31/25 at 0915, Last dose on Sat03/31/25 at 0945, at 240 mL/hr, Administer over 30 Minutes, Routine New Bag 03/31/2025 9:43 AM EDT 1 g 240 mL/hr New Bag 03/31/2025 8:47 AM EDT 1 g 240 mL/hr dextrose 50 % solution 12.5-25 g 12.5-25 g, Intravenous, Every 15 min PRN, Starting on Sat03/30/25 at 1105, Until Sat04/04/25 at 1418, Routine, Recovery(Phase II-Outpatient)/On Unit(Inpatient), low blood sugar dextrose 50 % solution 25 g 25 g, Intravenous, Once, 1 dose, On Sat03/30/25 at 0815, Routine, Recovery(Phase II-Outpatient)/On Unit(Inpatient) Given 03/30/2025 8:29 AM EDT 25 g fentaNYL (Sublimaze) injection 25 mcg 25 mcg, Intravenous, Every 5 min PRN, 2 doses, Starting on Sat03/29/25 at 1809, Until Sat03/29/25 at 2027, Routine, Recovery (Phase I only), pain score of 3-4 out of 10 Given 03/29/2025 8:28 PM EDT 25 mcg Given 03/29/2025 8:22 PM EDT 25 mcg glucagon (human recombinant) injection 1 mg 1 mg, Intramuscular, Every 15 min PRN, Starting on Sat03/30/25 at 1105, Until Sat04/04/25 at 1418, Routine, Recovery(Phase II-Outpatient)/On Unit(Inpatient), low blood sugar per Hypoglycemia Prevention and Treatment protocol glucose (Glutose) 40 % oral gel 15-30 grams of glucose 15-30 grams of glucose, Sublingual, Every 15 min PRN, Starting on Sat03/30/25 at 1105, Until Sat04/04/25 at 1418, Routine, Recovery(Phase II-Outpatient)/On Unit(Inpatient), low blood sugar, per Hypoglycemia Prevention and Treatment protocol heparin (porcine) injection 5,000 Units 5,000 Units, Subcutaneous, Once, 1 dose, On Sat03/29/25 at 1245, Routine, Holding - Preprocedure Given 03/29/2025 12:26 PM EDT 5,000 Units Right Lower Abdomen heparin (porcine) injection 5,000 Units 5,000 Units, Subcutaneous, Every 8 hours scheduled, First dose on Sat03/30/25 at 0600, Until Discontinued, Routine, Recovery(Phase II-Outpatient)/On Unit(Inpatient), On hold since Sat04/02/2025 at 0748 until manually unheld Given 04/02/2025 6:26 AM EDT 5,000 Units Left Lower Abdomen Given 04/01/2025 9:23 PM EDT 5,000 Units L eft Lower Abdomen Given 04/01/2025 1:31 PM EDT 5,000 Units R ight Lower Abdomen hydrALAZINE (Apresoline) injection 10 mg 10 mg, Intravenous, Every 4 hours PRN, Starting on Sat03/30/25 at 0812, Until Sat04/04/25 at 1418, Routine, SBP > 160 and HR < 60 HYDROmorphone (Dilaudid) injection 0.5 mg 0.5 mg, Intravenous, Every 10 min PRN, 2 doses, Starting on Sat03/29/25 at 1809, Until Sat03/30/25 at 0445, Routine, Recovery (Phase I only), pain score of 9-10 out of 10 Given 03/29/2025 8:43 PM EDT 0.5 mg insulin lispro (Admelog) 100 units/mL injection - Correction - Resistant Dose 0-10 Units, Subcutaneous, 3 times daily with meals, First dose on Sat03/31/25 at 1730, Until Discontinued, Routine Given 04/04/2025 9:38 AM EDT 2 Units Right Upper Arm (Yuniel k) Given 04/03/2025 1:03 PM EDT 2 Units Ri ght Upper Arm (Back) Given 04/01/2025 5:45 PM EDT 2 Units Le ft Lower Abdomen insulin lispro (Admelog) 100 units/mL injection - Correction - Standard Dose 0-5 Units, Subcutaneous, 3 times daily with meals, First dose on Sat03/30/25 at 1230, Until Discontinued, Routine, Recovery(Phase II-Outpatient)/On Unit(Inpatient) Given 03/31/2025 12:40 PM EDT 2 Units Right Upper Arm (Yuniel k) Given 03/31/2025 9:17 AM EDT 1 Units Ri ght Lower Abdomen Given 03/30/2025 12:53 PM EDT 2 Units L eft Upper Abdomen insulin lispro (Admelog) injection - Correction - Nighttime Dose 0-3 Units, Subcutaneous, 2 times nightly (2100 & 0300), First dose on Sat03/31/25 at 2100, Until Discontinued, Routine insulin regular (HumuLIN R,NovoLIN R) 100 UNIT/ML injection 5 Units 5 Units, Intravenous, Once, 1 dose, On Sat03/30/25 at 0815, Routine, Recovery(Phase II-Outpatient)/On Unit(Inpatient)Indication s:Hyperkalemia Given 03/30/2025 8:29 AM EDT 5 Units ketorolac (Toradol) injection 15 mg 15 mg, Intravenous, Every 6 hours scheduled, 20 doses, First dose on Sat03/30/25 at 0600, Last dose on Sat04/04/25 at 0000, Routine, Recovery(Phase II-Outpatient)/On Unit(Inpatient) Given 03/30/2025 6:10 AM EDT 15 mg labetalol (Normodyne,Trandate) injection 20 mg 20 mg, Intravenous, Every 4 hours PRN, Starting on Sat03/30/25 at 0812, Until Sat04/04/25 at 1418, Routine, SBP > 160 and HR < 60 lactated Ringer's bolus 500 mL 500 mL, Intravenous, Once, 1 dose, On Sat03/30/25 at 0915, Administer over 2 Hours, Routine New Bag 03/30/2025 8:45 AM EDT 500 mL 250 mL/hr lidocaine (Lidoderm) 5 % patch 1 patch 1 patch, Apply externally, Daily, First dose on Sat03/29/25 at 2030, Until Discontinued, Administer over 12 Hours, Routine Medication Applied 04/04/2025 9:39 AM EDT 1 patch Flank Medication Applied 04/02/2025 8:51 AM EDT 1 patch Chest Medication Applied 04/01/2025 9:16 AM EDT 1 patch Back magnesium sulfate IVPB 2 g 2 g, Intravenous, Once, 1 dose, On Sat04/02/25 at 0745, Routine New Bag 04/02/2025 7:10 AM EDT 2 g 25 mL/ hr magnesium sulfate IVPB 2 g 2 g, Intravenous, Once, 1 dose, On Sat04/04/25 at 0700, Routine New Bag 04/04/2025 6:16 AM EDT 2 g 25 mL/ hr magnesium sulfate IVPB 4 g 4 g, Intravenous, Every 4 hours, 2 doses, First dose on Sat03/30/25 at 0545, Last dose on Sat03/30/25 at 0945, at 25 mL/hr, Administer over 4 Hours, Routine New Bag 03/30/2025 9:38 AM EDT 4 g 25 mL/hr New Bag 03/30/2025 4:59 AM EDT 4 g 25 mL/hr methocarbamol (Robaxin) tablet 500 mg 500 mg, Oral, Every 6 hours scheduled, First dose on Sat03/29/25 at 2030, Until Discontinued, Routine, Recovery(Phase II-Outpatient)/On Unit(Inpatient) Given 04/04/2025 6:15 AM EDT 500 mg Given 04/03/2025 11:33 PM EDT 500 mg Given 04/03/2025 6:30 PM EDT 500 mg mupirocin (Bactroban) 2 % ointment 1 Application Each Nostril, 2 times daily, 10 doses, First dose on Sat04/02/25 at 1445, Last dose on Sat04/06/25 at 2100, Routine Given 04/04/2025 9:39 AM EDT 1 Application Given 04/03/2025 7:59 PM EDT 1 Application Given 04/03/2025 8:54 AM EDT 1 Application ondansetron (Zofran) injection 4 mg 4 mg, Intravenous, Every 6 hours PRN, Starting on Sat03/30/25 at 0813, Until Sat04/04/25 at 1418, Routine, vomiting, nausea Given 03/30/2025 10:53 AM EDT 4 mg ondansetron ODT (Zofran-ODT) disintegrating tablet 4 mg 4 mg, Oral, Every 6 hours PRN, Starting on Sat03/30/25 at 0813, Until Sat04/04/25 at 1418, Routine, nausea, vomiting oxyCODONE (Roxicodone) immediate release tablet 10 mg 10 mg, Oral, Once as needed, 2 doses, Starting on Sat03/29/25 at 1809, Until Sat03/30/25 at 0445, Routine, Recovery (Phase I only), pain score of 6-8 out of 10 Given 03/29/2025 8:24 PM EDT 10 mg oxyCODONE (Roxicodone) immediate release tablet 10 mg 10 mg, Oral, Every 4 hours PRN, Starting on Sat03/30/25 at 0813, Until Sat04/04/25 at 1418, Routine, Recovery(Phase II-Outpatient)/On Unit(Inpatient), severe pain (7-10 on the numeric pain scale) Given 03/31/2025 5:21 AM EDT 10 mg Given 03/30/2025 9:23 PM EDT 10 mg Given 03/30/2025 5:00 PM EDT 10 mg oxyCODONE (Roxicodone) immediate release tablet 5 mg 5 mg, Oral, Every 4 hours PRN, Starting on Sat03/30/25 at 0813, Until Sat04/04/25 at 1418, Routine, Recovery(Phase II-Outpatient)/On Unit(Inpatient), moderate pain (4-6 on the numeric pain scale) Given 04/01/2025 8:39 PM EDT 5 mg Given 03/31/2025 8:00 PM EDT 5 mg Given 03/30/2025 8:14 AM EDT 5 mg phosphorus (K Phos Neutral) tablet 2 tablet 2 tablet (500 mg), Oral, Once, 1 dose, On Sat03/30/25 at 1300, Routine Given 03/30/2025 12:53 PM EDT 2 tablets phosphorus (K Phos Neutral) tablet 2 tablet 2 tablet (500 mg), Oral, Once, 1 dose, On Sat04/02/25 at 0745, Routine Given 04/02/2025 8:50 AM EDT 2 tablets phosphorus (K Phos Neutral) tablet 2 tablet 2 tablet (500 mg), Oral, Every 8 hours scheduled, 2 doses, First dose on Sat04/03/25 at 0745, Last dose on Sat04/03/25 at 1400, Routine Given 04/03/2025 1:07 PM EDT 2 tablets Given 04/03/2025 8:53 AM EDT 2 tablets polyethylene glycol (Miralax) packet 17 g 17 g, Oral, Daily, First dose on Sat03/30/25 at 0915, Until Discontinued, Routine Given 04/04/2025 9:37 AM EDT 17 g Given 04/03/2025 8:52 AM EDT 17 g Given 04/01/2025 9:14 AM EDT 17 g potassium chloride CR (Klor-Con) ER tablet 20 mEq 20 mEq, Oral, Once, 1 dose, On Sat03/31/25 at 0730, Routine Given 03/31/2025 8:47 AM EDT 20 mEq prochlorperazine (Compazine) injection 5 mg 5 mg, Intravenous, Every 6 hours PRN, Starting on Sat03/30/25 at 0813, Until Sat04/04/25 at 1418, Routine, nausea, vomiting rosuvastatin (Crestor) tablet 20 mg 20 mg, Oral, Daily, First dose on Sat03/30/25 at 1400, Until Discontinued, Routine Given 04/04/2025 9:37 AM EDT 20 mg Given 04/03/2025 8:53 AM EDT 20 mg Given 04/02/2025 8:50 AM EDT 20 mg senna-docusate (Betty-Colace) 8.6-50 MG per tablet 2 tablet 2 tablet, Oral, 2 times daily, First dose on Sat03/30/25 at 0915, Until Discontinued, Routine Given 04/04/2025 9:36 AM EDT 2 tablets Given 04/03/2025 7:58 PM EDT 2 tablets Given 04/03/2025 8:53 AM EDT 2 tablets sodium chloride 0.9 % bolus 500 mL 500 mL, Intravenous, Once, 1 dose, On Sat03/30/25 at 0900, Administer over 60 Minutes, Routine New Bag 03/30/2025 8:27 AM EDT 500 mL 500 mL/hr sodium chloride 0.9 % bolus 500 mL 500 mL, Intravenous, Once, 1 dose, On Sat03/30/25 at 1645, Administer over 30 Minutes, Routine New Bag 03/30/2025 4:05 PM EDT 500 mL 1000 mL/hr sodium chloride 0.9 % flush 10 mL 10 mL, Intravenous, Every 12 hours, First dose on Sat03/29/25 at 1245, Until Discontinued, Routine, Holding - Preprocedure Given 03/30/2025 12:36 AM EDT 10 mL tamsulosin (Flomax) 24 hr capsule 0.4 mg 0.4 mg, Oral, Daily, First dose on Sat03/30/25 at 0900, Until Discontinued, Routine Given 04/04/2025 9:37 AM EDT 0.4 mg Given 04/03/2025 8:53 AM EDT 0.4 mg Given 04/02/2025 8:50 AM EDT 0.4 mg documented in this encounter Active and Recently Administered Medications Times are shown in EDT. Scheduled Medication Order 04/02/2025 04/03/2025 04/04/2025 acetaminophen (Tylenol) tablet 1,000 mg 1,000 mg, Oral, Every 6 hours scheduled, First dose on Sat03/29/25 at 2030, Until Discontinued, Routine, Recovery(Phase II-Outpatient)/On Unit(Inpatient) 0626 (Given - Provider: Dipak Serrano RN)1237 (Given - Provider: Travis Corral RN)1754 (Given - Provider: Travis Corral RN) 0013 (Given - Provider: Xochitl Fagan)0513 (Not Given - Provider: Xochitl Fagan - Reason: Hold for condition: must add comment - Comment: overdose)1303 (Given - Provider: Carmella Iniguez RN)1830 (Given - Provider: Carmella Iniguez RN)2333 (Given - Provider: Pam Trejo, BUCK) 0615 (Given - Provider: Pam Trejo RN)1200 (Canceled Entry - Provider: Automatic Discharge Provider - Comment: Automatically canceled at discontinue of medication order) aspirin chewable tablet 81 mg 81 mg, Oral, Daily, First dose on Sat03/30/25 at 0900, Until Discontinued, Routine 0850 (Given - Provider: Travis Corral RN) 0853 (Given - Provider: Carmella Iniguez RN) 0937 (Given - Provider: Carmella Iniguez RN) heparin (porcine) injection 5,000 Units 5,000 Units, Subcutaneous, Every 8 hours scheduled, First dose on Sat03/30/25 at 0600, Until Discontinued, Routine, Recovery(Phase II-Outpatient)/On Unit(Inpatient), On hold since Sat04/02/2025 at 0748 until manually unheld 0626 (Given - Provider: Dipak Serrano RN)0748 (Held by provider - Provider: Scarlet Gamboa APRN - Reason: Upcoming test/procedure)1400 (Dose Auto Held - Provider: Scarlet Gamboa APRN)2200 (Dose Auto Held - Provider: Scarlet Gamboa APRN) 0600 (Dose Auto Held - Provider: Scarlet Gamboa APRN)1400 (Dose Auto Held - Provider: Scarlet Gamboa APRN)2200 (Dose Auto Held - Provider: Scarlet Gamboa APRN) 0600 (Dose Auto Held - Provider: Scarlet Gamboa APRN)1418 (Unheld by provider - Provider: Automatic Discharge Provider) insulin lispro (Admelog) 100 units/mL injection - Correction - Resistant Dose 0-10 Units, Subcutaneous, 3 times daily with meals, First dose on Sat03/31/25 at 1730, Until Discontinued, Routine 0854 (Not Given - Provider: Travis Corral RN - Reason: Order parameters not met)1233 (Not Given - Provider: Travis Corral RN - Reason: Order parameters not met)1752 (Not Given - Provider: Travis Corral RN - Reason: Order parameters not met) 0849 (Not Given - Provider: Carmella Iniguez RN - Reason: Order parameters not met - Comment: BG 123)1303 (Given - Provider: Carmella Iniguez RN)1743 (Not Given - Provider: Carmella Iniguez RN - Reason: Order parameters not met) 0938 (Given - Provider: Carmella Iniguez RN)1230 (Canceled Entry - Provider: Automatic Discharge Provider - Comment: Automatically canceled at discontinue of medication order) insulin lispro (Admelog) injection - Correction - Nighttime Dose 0-3 Units, Subcutaneous, 2 times nightly (2100 & 0300), First dose on Sat03/31/25 at 2100, Until Discontinued, Routine 0356 (Not Given - Provider: Dipak Serrano RN - Reason: Order parameters not met)2024 (Not Given - Provider: Xochitl Fagan - Reason: Order parameters not met) 024 (Not Given - Provider: Xochitl Fagan - Reason: Order parameters not met)2051 (Not Given - Provider: Pam Trejo RN - Reason: Order parameters not met) 0300 (Canceled Entry - Provider: Pam Trejo RN) lidocaine (Lidoderm) 5 % patch 1 patch 1 patch, Apply externally, Daily, First dose on Sat03/29/25 at 2030, Until Discontinued, Administer over 12 Hours, Routine 0851 (Medication Applied - Provider: Travis Corral RN)2001 (Medication Removed - Provider: Xochitl Fagan) 0900 (Canceled Entry - Provider: Automatic Discharge Provider - Comment: Automatically canceled at discontinue of medication order) 0939 (Medication Applied - Provider: Carmella Iniguez RN)1218 (Due: Medication Removed - Provider: Automatic Discharge Provider - Comment: Time automatically adjusted from order being discontinued) magnesium sulfate IVPB 2 g (COMPLETED) 2 g, Intravenous, Once, 1 dose, On Sat04/02/25 at 0745, Routine 0710 (New Bag - Provider: Dipak Serrano RN) magnesium sulfate IVPB 2 g (COMPLETED) 2 g, Intravenous, Once, 1 dose, On Sat04/04/25 at 0700, Routine 0616 (New Bag - Provider: Pam Trejo RN) methocarbamol (Robaxin) tablet 500 mg 500 mg, Oral, Every 6 hours scheduled, First dose on Sat03/29/25 at 2030, Until Discontinued, Routine, Recovery(Phase II-Outpatient)/On Unit(Inpatient) 0626 (Given - Provider: Dipak Serrano RN)1237 (Given - Provider: Travis Corral RN)1754 (Given - Provider: Travis Corral RN) 0013 (Given - Provider: Xochitl Fagan)0513 (Given - Provider: Xochitl Fagan)1303 (Given - Provider: Carmella Iniguez RN)1830 (Given - Provider: Carmella Iniguez RN)2333 (Given - Provider: Pam Trejo RN) 0615 (Given - Provider: Pam Trejo RN)1200 (Canceled Entry - Provider: Automatic Discharge Provider - Comment: Automatically canceled at discontinue of medication order) mupirocin (Bactroban) 2 % ointment 1 Application Each Nostril, 2 times daily, 10 doses, First dose on Sat04/02/25 at 1445, Last dose on Sat04/06/25 at 2100, Routine 1446 (Given - Provider: Travis Corral RN)2026 (Given - Provider: Xochitl Fagan) 0854 (Given - Provider: Carmella Iniguez RN)1959 (Given - Provider: Pam Trejo RN) 0939 (Given - Provider: Carmella Iniguez RN) phosphorus (K Phos Neutral) tablet 2 tablet (COMPLETED) 2 tablet (500 mg), Oral, Once, 1 dose, On Sat04/02/25 at 0745, Routine 0850 (Given - Provider: Travis Corral RN) phosphorus (K Phos Neutral) tablet 2 tablet (COMPLETED) 2 tablet (500 mg), Oral, Every 8 hours scheduled, 2 doses, First dose on 04/03/25 at 0745, Last dose on Sat04/03/25 at 1400, Routine 0853 (Given - Provider: Carmella Iniguez RN)1307 (Given - Provider: Carmella Iniguez RN) polyethylene glycol (Miralax) packet 17 g 17 g, Oral, Daily, First dose on Sat03/30/25 at 0915, Until Discontinued, Routine 0850 (Not Given - Provider: Travis Corral RN - Reason: Patient/family refused) 0852 (Given - Provider: Carmella Iniguez RN) 0937 (Given - Provider: Carmella Iniguez RN) rosuvastatin (Crestor) tablet 20 mg 20 mg, Oral, Daily, First dose on Sat03/30/25 at 1400, Until Discontinued, Routine 0850 (Given - Provider: Travis Corral RN) 0853 (Given - Provider: Carmella Iniguez RN) 0937 (Given - Provider: Carmella Iniguez RN) senna-docusate (Betty-Colace) 8.6-50 MG per tablet 2 tablet 2 tablet, Oral, 2 times daily, First dose on Sat03/30/25 at 0915, Until Discontinued, Routine 0850 (Not Given - Provider: Travis Corral RN - Reason: Patient/family refused)2001 (Not Given - Provider: Xochitl Fagan - Reason: Patient/family refused) 0853 (Given - Provider: Carmella Iniguez RN)1957 (Given - Provider: Pam Trejo RN) 0936 (Given - Provider: Carmella Iniguez RN) tamsulosin (Flomax) 24 hr capsule 0.4 mg 0.4 mg, Oral, Daily, First dose on Sat03/30/25 at 0900, Until Discontinued, Routine 0850 (Given - Provider: Travis Corral RN) 0853 (Given - Provider: Carmella Iniguez RN) 0937 (Given - Provider: Carmella Iniguez RN) PRN Medication Order 04/02/2025 04/03/2025 04/04/2025 dextrose 50 % solution 12.5-25 g(Linked Group 1) 12.5-25 g, Intravenous, Every 15 min PRN, Starting on Sat03/30/25 at 1105, Until 04/04/25 at 1418, Routine, Recovery(Phase II-Outpatient)/On Unit(Inpatient), low blood sugar glucagon (human recombinant) injection 1 mg(Linked Group 1) 1 mg, Intramuscular, Every 15 min PRN, Starting on Sat03/30/25 at 1105, Until 04/04/25 at 1418, Routine, Recovery(Phase II-Outpatient)/On Unit(Inpatient), low blood sugar per Hypoglycemia Prevention and Treatment protocol glucose (Glutose) 40 % oral gel 15-30 grams of glucose(Linked Group 1) 15-30 grams of glucose, Sublingual, Every 15 min PRN, Starting on Sat03/30/25 at 1105, Until 04/04/25 at 1418, Routine, Recovery(Phase II-Outpatient)/On Unit(Inpatient), low blood sugar, per Hypoglycemia Prevention and Treatment protocol hydrALAZINE (Apresoline) injection 10 mg(Linked Group 2) 10 mg, Intravenous, Every 4 hours PRN, Starting on Sat03/30/25 at 0812, Until 04/04/25 at 1418, Routine, SBP > 160 and HR < 60 labetalol (Normodyne,Trandate) injection 20 mg(Linked Group 2) 20 mg, Intravenous, Every 4 hours PRN, Starting on Sat03/30/25 at 0812, Until 04/04/25 at 1418, Routine, SBP > 160 and HR < 60 ondansetron (Zofran) injection 4 mg(Linked Group 3) 4 mg, Intravenous, Every 6 hours PRN, Starting on Sat03/30/25 at 0813, Until 04/04/25 at 1418, Routine, vomiting, nausea ondansetron ODT (Zofran-ODT) disintegrating tablet 4 mg(Linked Group 3) 4 mg, Oral, Every 6 hours PRN, Starting on Sat03/30/25 at 0813, Until 04/04/25 at 1418, Routine, nausea, vomiting oxyCODONE (Roxicodone) immediate release tablet 10 mg(Linked Group 4) 10 mg, Oral, Every 4 hours PRN, Starting on Sat03/30/25 at 0813, Until 04/04/25 at 1418, Routine, Recovery(Phase II-Outpatient)/On Unit(Inpatient), severe pain (7-10 on the numeric pain scale) oxyCODONE (Roxicodone) immediate release tablet 5 mg(Linked Group 4) 5 mg, Oral, Every 4 hours PRN, Starting on Sat03/30/25 at 0813, Until 04/04/25 at 1418, Routine, Recovery(Phase II-Outpatient)/On Unit(Inpatient), moderate pain (4-6 on the numeric pain scale) prochlorperazine (Compazine) injection 5 mg 5 mg, Intravenous, Every 6 hours PRN, Starting on Sat03/30/25 at 0813, Until Sat04/04/25 at 1418, Routine, nausea, vomiting Linked Groups Order Group 1: glucose (Glutose) 40 % oral gel 15-30 grams of glucoseJump to med 15-30 grams of glucose, Sublingual, Every 15 min PRN, Starting on Sat03/30/25 at 1105, Until Sat04/04/25 at 1418, Routine, Recovery(Phase II-Outpatient)/On Unit(Inpatient), low blood sugar, per Hypoglycemia Prevention and Treatment protocol Or dextrose 50 % solution 12.5-25 gJump to med 12.5-25 g, Intravenous, Every 15 min PRN, Starting on Sat03/30/25 at 1105, Until Sat04/04/25 at 1418, Routine, Recovery(Phase II-Outpatient)/On Unit(Inpatient), low blood sugar Or glucagon (human recombinant) injection 1 mgJump to med 1 mg, Intramuscular, Every 15 min PRN, Starting on Sat03/30/25 at 1105, Until Sat04/04/25 at 1418, Routine, Recovery(Phase II-Outpatient)/On Unit(Inpatient), low blood sugar per Hypoglycemia Prevention and Treatment protocol Group 2: hydrALAZINE (Apresoline) injection 10 mgJump to med 10 mg, Intravenous, Every 4 hours PRN, Starting on Sat03/30/25 at 0812, Until Sat04/04/25 at 1418, Routine, SBP > 160 and HR < 60 Or labetalol (Normodyne,Trandate) injection 20 mgJump to med 20 mg, Intravenous, Every 4 hours PRN, Starting on Sat03/30/25 at 0812, Until Sat04/04/25 at 1418, Routine, SBP > 160 and HR < 60 Group 3: ondansetron ODT (Zofran-ODT) disintegrating tablet 4 mgJump to med 4 mg, Oral, Every 6 hours PRN, Starting on Sat03/30/25 at 0813, Until Sat04/04/25 at 1418, Routine, nausea, vomiting Or ondansetron (Zofran) injection 4 mgJump to med 4 mg, Intravenous, Every 6 hours PRN, Starting on Sat03/30/25 at 0813, Until 04/04/25 at 1418, Routine, vomiting, nausea Group 4: oxyCODONE (Roxicodone) immediate release tablet 5 mgJump to med 5 mg, Oral, Every 4 hours PRN, Starting on Sat03/30/25 at 0813, Until 04/04/25 at 1418, Routine, Recovery(Phase II-Outpatient)/On Unit(Inpatient), moderate pain (4-6 on the numeric pain scale) Or oxyCODONE (Roxicodone) immediate release tablet 10 mgJump to med 10 mg, Oral, Every 4 hours PRN, Starting on Sat03/30/25 at 0813, Until 04/04/25 at 1418, Routine, Recovery(Phase II-Outpatient)/On Unit(Inpatient), severe pain (7- 10 on the numeric pain scale) documented in this encounter Additional Health Concerns Assessment Noted Time A fall risk assessment has been complete d for the patient 02/23/2025 8:48 AM EDT A Body Mass Index follow-up plan has been documented for the patient 04/04/2025 10:30 AM EDT documented as of this encounter Care Teams 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
--- OUTSIDE RECORDS SUMMARY | 2025-03-29 12:10 | XMS_ITS | Encounter Summary ---
Author Organization [facility] Address [address] [place] [address] Care Team Providers Care Histology Aide Name Role Phone Forrest Nickerson ORTHOTICS TECHNICIAN Unavailable [phone] Casa Phillips MD Primary Care Provider [phone] Reason for Visit * Auth/Cert (Routine) Specialty Diagnoses / Procedures Referred By Contac t Referred To Contact Diagnoses Non-small cell cancer of left lung (CMS/HCC) Non-small cell cancer of left lung Procedures GA THORACOSCOPY SURG LOBECTOMY LEFT VATS LOBECTOMY Ирина Lopez MD [address] [address] Phone: tel: fax: [facility] [address] [place] [address] Phone: tel: Referral ID Status Reason Start Date Expiration Date Visits Re quested Visits Authorized [id number] 1 1 Encounter Details Date Type Department Care Team (Late st Contact Info) Description 03/29/2025 12:10 PM EDT - 03/29/2025 4:50 PM EDT Surgery [facility] [address] [place] [address] Ирина Lopez MD [address] [address] LEFT VATS LOBECTOMY coverted to open, Left thoracotomy, with medistinal lymph node disection and lypoma [43586 (CPT )] Surgery Details Date/Time Status Location [...] General Class II/ Clean Contaminated Peds scope 600305 passed Surgeon Surgeon Role Service Panel Carl [...] Clinic discharge # - For urgent questions/concerns: [facility] hotline: , option 4 - ask for the thoracic surgeon precision lens grinder. documented in this encounter Medications at Time [...] from the original note were not included. 13415 Surgery for Lung Cancer Surgery can be [...] holidays. Last Reviewed Date: 2023 00:00:00 ?? 7822-3613 [employer]. All rights reserved. This information is not intended as a substitute for professional medical care. Always follow your healthcare professional's instructions. * Neida OnALEXIS - Chester Cuevas RN - 04/04/2025 10:29 AM EDT Images from the original note were not included. 11685 Thoracotomy Thoracotomy is surgery used to diagnose [...] . Last Reviewed Date: 2024 00:00:00 ?? 7750-3817 [employer]. All rights reserved. This information is not intended as a substitute for professional medical care. Always follow your healthcare professional's instructions. * Neida Garland - Chester Cuevas RN - 04/04/2025 10:29 AM EDT Images from the original note were not included. 88223 Lung Cancer: Video-Assisted and Robotic-Assisted Thoracic Surgery [...] you will hurt less after surgery. ? [place] [facility] stay. You can likely go home [...] surgery because the cuts are small. ? [place] [facility] stay. You can likely go home [...] of surgery you need. Make sure the [facility] have experience in VATS or RATS. Not [...] future. Last Reviewed Date: 2023 00:00:00 ?? 5215-2195 [employer]. All rights reserved. This information is not intended as a substitute for professional medical care. Always follow your healthcare professional's instructions. * Neida Garland - Chester Cuevas RN - 04/04/2025 10:24 AM EDT Images from the original note were not included. [id number] Tamsulosin Brand Name(s): Flomax??, Su?? (as a [...] be awakened, immediately call emergency services at 591. Symptoms of overdose may include: ? dizziness [...] of all of the prescription and nonprescription (zmkv-fdu-uaxvbvq) medicines you are taking, as well as [...] or pharmacist about specific clinical use. The [place] [employer] represents that the information provided hereunder was formulated with a reasonable standard of care, and in conformity with professional standards in the field. The [place] [employer] makes no representations or warranties, express or implied, including, but not limited to, any implied warranty of merchantability and/or fitness for a particular purpose, with respect to such information and specifically disclaims all such warranties. Users are advised that decisions regarding drug therapy are complex medical decisions requiring the independent, informed decision of an appropriate health transitional care manager, and the information is provided for informational purposes only. The entire monograph for a drug should be reviewed for a thorough understanding of the drug's actions, uses and side effects. The [place] [employer] does not endorse or recommend the use of any drug.The information is not a substitute for medical care. AHFS?? Patient Medication Information?. ?? Copyright, 2023. The [place]??, [address], [address], [place], [place]. All Rights Reserved. Duplication for commercial use must be authorized by [facility]. Selected Revisions: October 28, 2017. AHFS?? Patient Medication Information?. ?? Copyright, 2024 * Chester Lyons RN - 04/04/2025 10:24 AM EDT Images from the original note were not included. [id number] Senna Brand Name(s): Black Draught??, Ex-Lax??, Baca's [...] and out of their sight and reach. [email or web address] Unneeded medications should be disposed of in [...] of all of the prescription and nonprescription (gtjg-vvs-xcminqx) medicines you are taking, as well as [...] or pharmacist about specific clinical use. The [place] [employer] represents that the information provided hereunder was formulated with a reasonable standard of care, and in conformity with professional standards in the field. The [place] [employer] makes no representations or warranties, express or implied, including, but not limited to, any implied warranty of merchantability and/or fitness for a particular purpose, with respect to such information and specifically disclaims all such warranties. Users are advised that decisions regarding drug therapy are complex medical decisions requiring the independent, informed decision of an appropriate health transitional care manager, and the information is provided for informational purposes only. The entire monograph for a drug should be reviewed for a thorough understanding of the drug's actions, uses and side effects. The [place] [employer] does not endorse or recommend the use of any drug.The information is not a substitute for medical care. AHFS?? Patient Medication Information?. ?? Copyright, 2023. The [employer]??, [address], [address], [place], [place]. All Rights Reserved. Duplication for commercial use must be authorized by [facility]. Selected Revisions: April 02, 2024. AHFS?? Patient Medication Information?. ?? Copyright, 2024 * Chester Lyons RN - 04/04/2025 10:24 AM EDT Images from the original note were not included. [id number] Polyethylene Glycol 3350 Brand Name(s): MiraLax?? PEG [...] be awakened, immediately call emergency services at 472. Symptoms of overdose may include: ? diarrhea ? thirst ? confusion ? seizure What OTHER INFORMATION should I know? Keep all appointments with your doctor. Do not let anyone else take your medication. Ask your pharmacist any questions you have about refilling your prescription. It is important for you to keep a written list of all of the prescription and nonprescription (fuwp-wsn-ozcjsrr) medicines you are taking, as well as [...] or pharmacist about specific clinical use. The [place] [employer] represents that the information provided hereunder was formulated with a reasonable standard of care, and in conformity with professional standards in the field. The [place] [employer] makes no representations or warranties, express or implied, including, but not limited to, any implied warranty of merchantability and/or fitness for a particular purpose, with respect to such information and specifically disclaims all such warranties. Users are advised that decisions regarding drug therapy are complex medical decisions requiring the independent, informed decision of an appropriate health transitional care manager, and the information is provided for informational purposes only. The entire monograph for a drug should be reviewed for a thorough understanding of the drug's actions, uses and side effects. The [place] [employer] does not endorse or recommend the use of any drug.The information is not a substitute for medical care. AHFS?? Patient Medication Information?. ?? Copyright, 2023. The [employer]??, [address], [address], [place], [place]. All Rights Reserved. Duplication for commercial use must be authorized by [facility]. Selected Revisions: December 27, 2015. AHFS?? Patient Medication Information?. ?? Copyright, 2024 * Neida Garland - Chester Cuevas RN - 04/04/2025 10:24 AM EDT 1087 Oxycodone Oral Tablet, Immediate Release Brand Names: Oxaydo, Roxicodone What is this medicine? Oxycodone (sb-q-QPJ-done) is an opioid pain reliever. It is used to treat moderate to severe pain. What should I tell my health care provider before I take this medicine? They need to know if you have any of these conditions: ? Bomoseen's disease ? Brain tumor or head injury [...] a special medication guide each time you picked edge sewing machine operator this medicine. ? Overdosage: Taking too much [...] should report to your doctor or health transitional care manager as soon as possible: ? allergic reactions [...] attention (report to your doctor or health transitional care manager if they continue or are bothersome): ? constipation ? dry mouth ? itching ? nausea, vomiting ? upset stomach This list may not describe all possible side effects. Call your doctor for medical advice about side effects. You may report side effects to FDA at 6-067-MKO-2743. Where should I keep my medicine? This [...] location. To find a disposal location, visit [facility]. If you cannot take unused medicine to a proper location, you can mix the medicine with coffee grounds or udc litter and dispose of in the normal trash. Your doctor may also give you a special disposal pouch for this medicine. You can also flush the medicine down the toilet. * Neida OnSHANAIR - Chester Cuevas RN - 04/04/2025 10:24 AM EDT Images from the original note were not included. [id number] Methocarbamol Brand Name(s): Robaxin??; also available generically [...] be awakened, immediately call emergency services at 082. What OTHER INFORMATION should I know? Keep all appointments with your doctor. Do not let anyone else take your medication. Ask your pharmacist any questions you have about refilling your prescription. It is important for you to keep a written list of all of the prescription and nonprescription (fvgg-vae-nirvaqm) medicines you are taking, as well as [...] or pharmacist about specific clinical use. The [place] [employer] represents that the information provided hereunder was formulated with a reasonable standard of care, and in conformity with professional standards in the field. The [place] [employer] makes no representations or warranties, express or implied, including, but not limited to, any implied warranty of merchantability and/or fitness for a particular purpose, with respect to such information and specifically disclaims all such warranties. Users are advised that decisions regarding drug therapy are complex medical decisions requiring the independent, informed decision of an appropriate health transitional care manager, and the information is provided for informational purposes only. The entire monograph for a drug should be reviewed for a thorough understanding of the drug's actions, uses and side effects. The [place] [employer] does not endorse or recommend the use of any drug.The information is not a substitute for medical care. AHFS?? Patient Medication Information?. ?? Copyright, 2023. The [place] [employer]??, [address], [address], [place], [place]. All Rights Reserved. Duplication for commercial use must be authorized by [facility]. Selected Revisions: May 28, 2017. AHFS?? Patient Medication Information?. ?? Copyright, 2024 * Chester Lyons RN - 04/04/2025 10:23 AM EDT Images from the original note were not included. [id number] Acetaminophen Brand Name(s): Actamin??, Feverall??, Panadol??, Tempra Quicklets??, Tylenol??, Dayquil?? (as a combination product containing Acetaminophen, Dextromethorphan, Pseudoephedrine), NyQuil Cold/Flu Relief?? (as a combination product containing Acetaminophen, Dextromethorphan, Doxylamine), Percocet?? (as a combination product containing Acetaminophen, Oxycodone) APAP, X-mifqhu-mtbq-aminophenol, Paracetamol ?? This branded product is no [...] measuring cup or syringe provided by the financial services auditor to measure each dose of the solution [...] and out of their sight and reach. [email or web address] Unneeded medications should be disposed of in [...] of all of the prescription and nonprescription (brrk-enr-aqtrtme) medicines you are taking, as well as [...] or pharmacist about specific clinical use. The [place] [employer] represents that the information provided hereunder was formulated with a reasonable standard of care, and in conformity with professional standards in the field. The [place] [employer] makes no representations or warranties, express or implied, including, but not limited to, any implied warranty of merchantability and/or fitness for a particular purpose, with respect to such information and specifically disclaims all such warranties. Users are advised that decisions regarding drug therapy are complex medical decisions requiring the independent, informed decision of an appropriate health transitional care manager, and the information is provided for informational purposes only. The entire monograph for a drug should be reviewed for a thorough understanding of the drug's actions, uses and side effects. The [place] [employer] does not endorse or recommend the use of any drug.The information is not a substitute for medical care. AHFS?? Patient Medication Information?. ?? Copyright, 2023. The [place]??, [address], [address], [place], [place]. All Rights Reserved. Duplication for commercial use must be authorized by [facility]. Selected Revisions: June 28, 2023. AHFS?? Patient Medication Information?. ?? Copyright, 2024 * Discharge Summary - FrankEverett RenettaDO - 04/04/2025 9:13 AM EDT Hospitalization Admit Date/Time: 03/29/2025 9:43 AM Admitting Attending: Ирина Lopez Discharge Date: 04/04/2025 Discharge Attending Physician: Ирина Lopez MD PCP name and Address: Casa Phillips MD [address] [place] [address] / [facility] [address] Referring provider name and address: No referring [...] Medications These medications were sent to [facility] [place], [place] - [address] [facility] [address] [facility] [place] [id number] acetaminophen 500 MG tablet methocarbamol 500 MG [...] Clinic discharge # - For urgent questions/concerns: [facility] hotline: , option 4 - ask for the thoracic surgeon precision lens grinder. Outpatient Follow-Up Future Appointments Date Time Provider [...] Mobility Exam: Supine to Sit Level of [place]: Stand-by assist Physical/Nonphysical Assist: Set-up required, HOB elevated Assistive Device: Bed rails Transfers Transfer Exam: Sit to stand Level of [place]: Stand-by assist Physical/Nonphysical Assist: Verbal Cues, Nonverbal cues (demo/gestures), Minimal cues Assistive Device: Rollator Transfer Exam: Stand to Sit Level of [place]: Stand-by assist Physical/Nonphysical Assist: Verbal Cues, Nonverbal [...] to areas of treatment space. Standardized Assessments [facility] 6-Clicks Mobility Assessment Difficulty patient [...] 3-5 steps with a railing?: A little [facility] 6-Clicks Mobility Assessment Total : [...] for assistance with DME. Referrals sent to [facility] for Rollator to be delivered to bedside today. * Progress Notes - Patricia Torres N - 04/03/2025 11:49 AM EDT Occupational Therapy Treatment Patient Name: Michelle Feliz Jr. Today's Date: 04/03/2025 OT Discharge Recommendations: Home with 24 hour assistance Equipment Recommended: Rollator Subjective Pt consent to tx Participants in Care Family/Caregiver Present: Yes Family/Caregiver: Adult Daughter Heel Boom Operator: Not Applicable Presentation Oxygen Therapy: None (Room [...] Mobility Exam: Supine to Sit Level of [place]: Stand-by assist Physical/Nonphysical Assist: Set-up required, HOB elevated Transfers Transfer Exam: Sit to stand Level of [place]: Stand-by assist Physical/Nonphysical Assist: Verbal Cues, Nonverbal cues (demo/gestures), Minimal cues Assistive Device: Rollator Transfer Exam: Stand to Sit Level of [place]: Stand-by assist Physical/Nonphysical Assist: Verbal Cues, Nonverbal [...] reaches 6. Pt verbalizes understanding. Standardized Assessments [facility] 6-Click Daily Activities Help from Other: Don/Doff Regular Lower Body Clothings: Little Help From Other: Bathing: Little Help From Other: Toileting: Little Help From Other: Don/Doff Upper Body Clothings: Little Help From Other: Grooming: Little Help From Other: Eating Meals: None [facility] 6 Click - Daily Activities Score: 19 [...] at 4:50 PM. * Progress Notes - Marilu Mariemichael Renetta, DO - 04/03/2025 9:58 AM EDT Images from the original note were not included. [facility] Department of Surgery Section of [...] disease, without long-term current use of insulin ([facility]) Microalbuminuria Tobacco use disorder Second hand smoke [...] insulin (CMS/HCC) Anemia Electrolyte abnormality Plan: - Remove chest [...] Mobility Bed Mobility Exam: Scooting/Bridging Level of [place]: Minimum assist (75% patient's effort) Physical/Nonphysical Assist: Verbal Cues, Nonverbal cues (demo/gestures), Minimal cues Bed Mobility Exam: Supine to Sit Level of [place]: Minimum assist (75% patient's effort) Physical/Nonphysical Assist: Verbal Cues, Nonverbal cues (demo/gestures), HOB elevated Bed Mobility Exam: Sit to Supine Level of [place]: Minimum assist (75% patient's effort) Physical/Nonphysical Assist: Verbal Cues, Minimal cues Transfers Transfer Exam: Sit to stand Level of [place]: Minimum assist (75% patient's effort) Physical/Nonphysical Assist: Verbal Cues, Nonverbal cues (demo/gestures), Minimal cues Assistive Device: Rollator Transfer Exam: Stand to Sit Level of [place]: Minimum assist (75% patient's effort) Physical/Nonphysical Assist: [...] Level of Mobility Ambulatory- household only Mobility [place] Independent gait without device History of Falls [...] Ambulating in-room distances since last PT treatment. Heel Boom Operator (if applicable) OBJECTIVE & INTERVENTIONS PAIN Pt was without complaints of pain throughout the PT treatment. DELIRIUM SCREENING Curtis Agitation Sedation Scale (RASS): Alert and calm Feature 3: Altered Level of Consciousness: Negative THERAPEUTIC ACTIVITY Treatment Minutes 25 BED MOBILITY Level of [place] Physical/Non- physical Assist Adaptive Equipment Utilized Scooting/ [...] with supine <> sit TRANSFERS Level of [place] Physical/Non- physical Assist Adaptive Equipment Utilized Sit to Stand Minimum assist (75% patient's effort) Verbal Cues, Nonverbal cues (demo/gestures), Minimal cues Rollator Stand to sit Minimum assist (75% patient's effort) Verbal Cues, Nonverbal cues (demo/gestures), Minimal cues Rollator Interventions PT cued for proper hand placement and forward trunk lean prior to completing STS transfers BALANCE Postural Appearance Posture: Stooped posture Level of [place] Balance Support Interventions Static Sit Standby assist [...] Left upper extremity support AMBULATION Level of [place] Distance Adaptive Equipment Utilized Ambulation Contact guard [...] falling while progressing pt's distances Standardized Assessments [facility] 6-Clicks Mobility Assessment Difficulty patient [...] climbing 3-5 steps with a railing?: Unable [facility] 6-Clicks Mobility Assessment Total : [...] the original note were not included. [facility] Department of Surgery Section of Thoracic Surgery Progress Note 04/02/25 Michelle Hurleydavon Garcia. History of Present Illness Michelle Feliz [...] disease, without long-term current use of insulin ([facility]) Microalbuminuria Tobacco use disorder Second hand smoke [...] disease, without long-term current use of insulin ([facility]/HCC) Anemia Electrolyte abnormality Plan: - Keep [...] the original note were not included. [facility] Department of Surgery Section of [...] 03/30/25 18503/30/25 1900 - 03/31/25 0659 03/31/25 0700 - 03/31/25 1859 03/31/25 1900 [...] from last 7 days Lab Units 04/01/25 02103/31/2522103/30/25 0405 HEMOGLOBIN g/dL 7.6* 8.0* 8.8* HEMATOCRIT % 22.9* 24.3* 25.8* INR Results from last 7 days Lab Units 03/29/25 1958 03/29/25 1604 INR 1.0 1.0 Cr Results from last 7 days Lab Units 04/01/25 0212 03/31/252 03/30/25 1057 CREATININE mg/dL 1.67* 1.59* [...] Michelle Feliz Jr. 79 y.o. male CSN: [id number] Admission: 03/29/2025 9:43 AM Primary Problem: Non-small cell cancer of left lung (CMS/HCC) Centerless Grinding Machine Adjuster reviewed chart and spoke with the patient at bedside to complete this Initial Case Management Assessment. PCP: Casa Phillips MD Emergency Contact: Extended Emergency Contact Information Primary Emergency Contact: Elliot Feliz Relation: Son Heel Boom Operator needed? No Secondary Emergency Contact: Nora Feliz Relation: Daughter Heel Boom Operator needed? No Insurance: Primary Visit Coverage Payer Plan Sponsor Code Group Number Group Name [facility] MEDICARE [facility] [employer] [id number] Primary Visit Coverage Subscriber Subscriber ID Subscriber Name Subscriber N Subscriber Address [id number] MICHELLE FELIZ JR [id number] [place] [address] Patient information: Primary Caregiver: Self Support System: Immediate family Daily Living Activities: Functional Status: Independent Living Arrangements: Children Type of Residence: Private residence, Single Level [address] [place] [address] Current DME: Equipment Currently Used at Home: [...] DME Provider: n/a Living Will/Advance Directive/Power of Manager Radiation /Guardian: Have you reviewed your Advance Directive [...] Patient has Anthem Medicare insurance and uses [facility]. Family will assist and transport at discharge. Therapy recommending sub - acute rehab. Patient is agreeable. Notified SW-Eitan Linn to send out referrals. CHERELLE/ORIANA will continue to follow and assist. [place] [...] the original note were not included. [facility] Department of Surgery Section of [...] Level of Mobility: Ambulatory- household only Mobility [place]: Independent gait without device History of Falls: [...] Mobility Bed Mobility Exam: Scooting/Bridging Level of [place]: Maximum assist (25% patient's effort) (to scoot to EOB while seated) Physical/Nonphysical Assist: Verbal Cues, Nonverbal cues (demo/gestures) Bed Mobility Exam: Supine to Sit Level of [place]: Maximum assist (25% patient's effort) Physical/Nonphysical Assist: Verbal Cues, Nonverbal cues (demo/gestures), Additional assist utilized for safety, HOB elevated Transfers Transfer Exam: Sit to stand Level of [place]: Moderate assist (50% patient's effort) Physical/Nonphysical Assist: Verbal Cues, Nonverbal cues (demo/gestures), Additional assist utilized for safety Transfer Exam: Stand to Sit Level of [place]: Moderate assist (50% patient's effort) Physical/Nonphysical Assist: [...] session. Standardized Assessments Standardized Assessments Standardized Assessments: [facility] 6-Clicks Mobility Assessment [facility] 6-Clicks Mobility Assessment Difficulty patient [...] climbing 3-5 steps with a railing?: Unable [facility] 6-Clicks Mobility Assessment Total : [...] Level of Mobility: Ambulatory- household only Mobility [place]: Independent gait without device History of Falls: [...] Mobility Bed Mobility Exam: Scooting/Bridging Level of [place]: Maximum assist (25% patient's effort) (to scoot to EOB while seated) Physical/Nonphysical Assist: Verbal Cues, Nonverbal cues (demo/gestures) Bed Mobility Exam: Supine to Sit Level of [place]: Maximum assist (25% patient's effort) Physical/Nonphysical Assist: Verbal Cues, Nonverbal cues (demo/gestures), Additional assist utilized for safety, HOB elevated Transfers Transfer Exam: Sit to stand Level of [place]: Moderate assist (50% patient's effort) Physical/Nonphysical Assist: Verbal Cues, Nonverbal cues (demo/gestures), Additional assist utilized for safety Transfer Exam: Stand to Sit Level of [place]: Moderate assist (50% patient's effort) Physical/Nonphysical Assist: [...] continued education to improve carryover. Standardized Assessments [facility] 6-Click Daily Activities Help from Other: Don/Doff Regular Lower Body Clothings: A lot Help From Other: Bathing: A lot Help From Other: Toileting: A lot Help From Other: Don/Doff Upper Body Clothings: Little Help From Other: Grooming: Little Help From Other: Eating Meals: None [facility] 6 Click - Daily Activities Score: 16 [...] the original note were not included. [facility] Department of Surgery Section of [...] 0659 03/29/25 07 - 03/29/25 1859 03/29/25 1900 - 03/30/25 0659 03/30/25 07 - [...] from last 7 days Lab Units 03/30/2540403/29/25195703/29/25 160 HEMOGLOBIN g/dL 8.8* 9.2* 10.5* HEMATOCRIT % 25.8* 27.7* 31.1* INR Results from last 7 days Lab Units 03/29/25195703/29/25 160 INR 1.0 1.0 Cr Results from last [...] PM EDT Operative Note Date: 03/29/25 Location: [place] [facility] Name: Michelle Feliz , : 1945, Diagnoses: Pre-op Diagnosis Non-small cell cancer of left lung (CMS/HCC) Post-op Diagnosis Non-small cell cancer of left lung (CMS/HCC) Procedure(s): Bronchoscopy, left VATS converted to thoracotomy, left upper lobectomy, mediastinal lymph node dissection, intercostal nerve blocks Attending Surgeon(s): Ирина Durán - Primary Abrasive Grader Helper(s): * Carl Hamlin MD - Resident [...] and divided with an endo-JAXON 30 mm lopze load. Dissection then continued proximally along the [...] spaces under direct visualization. A single 24 Occitan chest tube was placed through the camera [...] responses Results Review {Vanishing Link Review Results :[id number] I have reviewed the latest lab and [...] card, photo ID, along with power of collections attorney, guardianship or advanced directives if applicable [...] Cassidy APRN - 03/18/2025 8:35 AM EDT [facility] Michelle Feliz Jr. is a 79 y.o. [...] Upcoming Encounters Date Type Department Care Team ([facility] Contact Info) Description 07/06/2025 10:40 AM EDT Office Visit Pav [facility] Head[facility] Neck [facility] Respiratory [address] [facility] [address], [address] [place] [address] Nikolai Naranjo MD [address] [facility] [address] Lorin Avila [facility] [address] [place] [address] (work) documented as of this encounter Procedures Procedure [...] Non-small cell cancer of left lung (CMS/HCC) GA THORACOSCOPY SURG LOBECTOMY 03/29/2025 1:24 PM EDT [...] Comment 04/04/2025 8:36 AM EDT [facility]ARE LAB Clinical Admissions Manager ID Sandy Kramer 04/04/2025 8:36 AM EDT HEALTHCARE LAB Device ID [id number] 04/04/2025 8:36 AM EDT [facility] Specimen Type POC Capillary 04/04/2025 8:36 AM EDT [facility] Blood Capillary blood specimen / Unknown 04/04/2025 8:34 AM EDT 04/04/2025 8:36 AM EDT Ирина Lopez MD LAB POINT OF CARE TE ST DOCKED DEVICE UNSOLICITED RESULTS Final Result [facility] [address] [place] [address] * XR Chest 1 View (04/04/2025 5:20 [...] MD on 04/04/2025 10:20 AM Scarlet Gamboa ORTHOTICS TECHNICIAN IMG XR PROCEDURES Final Resul t * [...] R esult [facility] [address] [place] [address] * (ABNORMAL) Magnesium, Plasma (04/04/2025 2:19 AM EDT) Magnesium, Plasma 1.8(L) 1.9 - 2.4 mg/dL 04/04/2025 2:53 AM EDT [facility] Blood Venous blood specimen / Unknown Venipuncture / Unknown 04/04/2025 2:19 AM EDT 04/04/2025 2:24 AM EDT us Ирина Lopez MD LAB BLOOD ORDERABLES Final R esult [facility] [address] [place] [address] * (ABNORMAL) CBC W/O Differential (04/04/2025 2:19 [...] ORDERABLES Final R esult Performing Organization Address City/[facility]/ZIP Co de Phone Number [facility] [address] [place] [address] * (ABNORMAL) POCT glucose meter (04/03/2025 8:25 PM EDT) POCT Glucose 194(H) 74 - 99 mg/dL 04/03/2025 8:28 PM EDT HEALTHCARE LAB Comment:Accuracy of a [...] for testing. Comment 04/03/2025 8:28 PM EDT [facility] Clinical Admissions Manager ID Obdulio Navarro 04/03/2025 8:28 PM EDT [facility] Device ID [id number] 04/03/2025 8:28 PM EDT [facility] Specimen Type POC Capillary 04/03/2025 8:28 PM EDT [facility] Blood Capillary blood specimen / Unknown 04/03/2025 8:25 PM EDT 04/03/2025 8:28 PM EDT us Ирина Lopez MD LAB POINT OF CARE TE ST DOCKED DEVICE UNSOLICITED RESULTS Final Result Performing Organization Address City/[facility] Co de Phone Number [facility]ALTHCARE LAB [address] [place] [address] * (ABNORMAL) POCT glucose meter (04/03/2025 5:27 [...] Comment 04/03/2025 5:29 PM EDT [facility]ARE LAB Clinical Admissions Manager ID Anayeli Castro 025 5:29 PM EDT [facility]ALTH[facility]ARE LAB Device ID [id number] 04/03/2025 5:29 PM EDT [facility] Specimen Type POC Capillary 04/03/2025 5:29 PM EDT [facility] Blood Capillary blood specimen / Unknown 04/03/2025 5:27 PM EDT 04/03/2025 5:29 PM EDT us Ирина Lopez MD LAB POINT OF CARE TE ST DOCKED DEVICE UNSOLICITED RESULTS Final Result Performing Organization Address City/State/[facility] Co de Phone Number HEALTHCARE LAB [address] [place], [place] [id number] * XR Chest 1 View (04/03/2025 1:09 [...] - 99 mg/dL 04/03/2025 12:17 PM EDT [facility] Comment:Accuracy of [...] for testing. Comment 04/03/2025 12:17 PM EDT HEALTHCARE LAB Clinical Admissions Manager ID Anayeli Castro 025 12:17 PM EDT [facility] Device ID [id number] 04/03/2025 12:17 PM EDT [facility] Specimen Type POC Capillary 04/03/2025 12:17 PM EDT [facility] Blood Capillary blood specimen / Unknown 04/03/2025 12:15 PM EDT 04/03/2025 12:17 PM EDT Ирина Lopez MD LAB POINT OF CARE TE ST DOCKED DEVICE UNSOLICITED RESULTS Final Result [facility] [address] [place] [address] * (ABNORMAL) POCT glucose meter (04/03/2025 8:46 [...] Comment 04/03/2025 8:48 AM EDT [facility] LAB Clinical Admissions Manager ID Anayeli Castro 025 8:48 AM EDT [facility]ARE LAB Device ID [id number] 04/03/2025 8:48 AM EDT [facility] LAB Specimen Type POC Capillary 04/03/2025 8:48 AM EDT [facility] Blood Capillary blood specimen / Unknown 04/03/2025 8:46 AM EDT 04/03/2025 8:48 AM EDT us Ирина Lopez MD LAB POINT OF CARE TE ST DOCKED DEVICE UNSOLICITED RESULTS Final Result Performing Organization Address City/State/[facility] de Phone Number HEALTHCARE LAB [address] [place] [address] * XR Chest 1 View (04/03/2025 5:53 [...] Winn MD on 04/03/2025 9:52 AM Scarlet A Cooper ORTHOTICS TECHNICIAN IMG XR PROCEDURES Final Resul t * [...] ORDERABLES Final R esult Performing Organization Address City/[facility]/ZIP Co de Phone Number [facility] [address] [place] [address] * Magnesium, Plasma (04/03/2025 3:45 AM EDT) Pathologist [facility] Magnesium, Plasma 2.0 1.9 - 2.4 mg/dL 04/03/2025 4:24 AM EDT [facility] Blood Venous blood specimen / Unknown Venipuncture / Unknown 04/03/2025 3:45 AM EDT 04/03/2025 3:54 AM EDT Ирина Lopez MD LAB BLOOD ORDERABLES Final R esult Performing Organization Address City/[facility]/ZIP Co de Phone Number [facility] [address] [place] [address] * (ABNORMAL) CBC W/O Differential (04/03/2025 3:45 [...] R esult [facility] [address] [place] [address] * (ABNORMAL) POCT glucose meter (04/02/2025 8:16 [...] Comment 04/02/2025 8:20 PM EDT HEALTH[facility]ARE LAB Clinical Admissions Manager ID Jil Ruiz 8:20 PM EDT [facility] LAB Device ID [id number] 04/02/2025 8:20 PM EDT [facility] LAB Specimen Type POC Capillary 04/02/2025 8:20 PM EDT [facility] Blood Capillary blood specimen / Unknown 04/02/2025 8:16 PM EDT 04/02/2025 8:20 PM EDT us Ирина Lopez MD LAB POINT OF CARE TE ST DOCKED DEVICE UNSOLICITED RESULTS Final Result Performing Organization Address City/[facility]/ZIP Co de Phone Number [facility]ARE LAB [address] [place] [address] * (ABNORMAL) POCT glucose meter (04/02/2025 5:20 [...] Comment 04/02/2025 5:22 PM EDT [facility]ARE LAB Clinical Admissions Manager ID Kenn Cabrera 04/02/2025 5:22 PM EDT [facility] LAB Device ID [id number] 04/02/2025 5:22 PM EDT [facility] LAB Specimen Type POC Capillary 04/02/2025 5:22 PM EDT [facility] Blood Capillary blood specimen / Unknown 04/02/2025 5:20 PM EDT 04/02/2025 5:22 PM EDT us Ирина Lopez MD LAB POINT OF CARE TE ST DOCKED DEVICE UNSOLICITED RESULTS Final Result Performing Organization Address City/[facility]/ZIP Co de Phone Number [facility] [address] [place] [address] * (ABNORMAL) CBC W/O Differential (04/02/2025 3:02 [...] 04/02/2025 3:20 PM EDT us Scarlet Gamboa ORTHOTICS TECHNICIAN LAB BLOOD ORDERABLES Final Re sult [facility] [address] [place] [address] * Transfuse RBC (04/02/2025 2:53 PM EDT) Scarlet Gamboa APRN BLOOD TRANSFUSION ORDERABLES Final Result * Transfuse RBC: 2 Units (04/02/2025 2:53 PM EDT) Scarlet Gamboa APRN BLOOD TRANSFUSION ORDERABLES Edited Result - Final * (ABNORMAL) POCT glucose meter (04/02/2025 12:28 PM EDT) [facility] POCT Glucose 149(H) 74 - 99 mg/dL [...] Comment 04/02/2025 12:30 PM EDT HEALTHCARE LAB Clinical Admissions Manager ID Kenn Cabrera 04/02/2025 12:30 PM EDT [facility]ALTH[facility]ARE LAB Device ID [id number] 04/02/2025 12:30 PM EDT [facility] LAB Specimen Type POC Capillary 04/02/2025 12:30 PM EDT [facility] Blood Capillary blood specimen / Unknown 04/02/2025 12:28 PM EDT 04/02/2025 12:30 PM EDT Ирина Lopez MD LAB POINT OF CARE TE ST DOCKED DEVICE UNSOLICITED RESULTS Final Result [facility] [address] [place] [address] * Transfuse RBC (04/02/2025 12:16 PM EDT) [...] Comment 04/02/2025 8:33 AM EDT [facility]ALTHCARE LAB Clinical Admissions Manager ID [place] schmitz 04/02/2025 8:33 AM EDT [facility] Device ID [id number] 04/02/2025 8:33 AM EDT [facility] Specimen Type POC Capillary 04/02/2025 8:33 AM EDT [facility] Blood Capillary blood specimen / Unknown 04/02/2025 8:31 AM EDT 04/02/2025 8:33 AM EDT us Ирина Lopez MD LAB POINT OF CARE TE ST DOCKED DEVICE UNSOLICITED RESULTS Final Result [facility] [address] [place] [address] * Prepare Leukocyte Reduced RBC: 2 Units (04/02/2025 7:58 AM EDT) Product Code [id number] CH BLOO D BANK Dispense Status Transfused BLOOD BANK Blood Expiration Date [id number] BLOOD BANK Unit Number [id number] CH B LOOD BANK Product Blood Type 6200 CH BLOOD BANK Blood Type A+ CH BLOOD BANK Crossmatch Compatible CH BLOOD BANK Product Code [id number] CH BLOO D BANK Dispense Status Transfused CH BLOOD BANK Blood Expiration Date [id number] BLOOD BANK Unit Number [id number] CH B LOOD BANK Product Blood Type 6200 CH BLOOD BANK Blood Type A+ CH BLOOD BANK Crossmatch Compatible BLOOD BANK Other us Scarlet Gamboa APRN BLOOD BANK PRODUCT ORDERABLES Final Result Performing Organization Address [facility] de Phone Number BLOOD BANK [address] [place] [address], [place] * Type and Screen (04/02/2025 6:36 [...] ORDERABL ES Final Result Performing Organization Address [facility] Co de Phone Number BLOOD BANK [address] [place] [address], [place] * XR Chest 1 View (04/02/2025 [...] R esult [facility] [address] [place] [address] * Magnesium, Plasma (04/02/2025 4:32 AM EDT) Magnesium, Plasma 1.9 1.9 - 2.4 mg/dL 04/02/2025 5:51 AM EDT [facility] Blood Venous blood specimen / Unknown Venipuncture / Unknown 04/02/2025 4:32 AM EDT 04/02/2025 5:20 AM EDT us Ирина Lopez MD LAB BLOOD ORDERABLES Final R esult [facility] [address] [place] [address] * (ABNORMAL) CBC W/O Differential (04/02/2025 4:32 [...] 5:31 AM EDT [facility] Blood Venous blood specimen / Unknown Venipuncture / Unknown 04/02/2025 4:32 AM EDT 04/02/2025 5:20 AM EDT us Ирина Lopez MD LAB BLOOD ORDERABLES Final R esult Performing Organization Address City/[facility]/ZIP Co de Phone Number [facility] [address] [place] [address] * (ABNORMAL) POCT glucose meter (04/01/2025 8:14 [...] Comment 04/01/2025 8:16 PM EDT HEALTHCARE LAB Clinical Admissions Manager ID Jil Ruiz 8:16 PM EDT HEALTHCARE LAB Device ID [id number] 04/01/2025 8:16 PM EDT [facility] Specimen Type POC Capillary 04/01/2025 8:16 PM EDT [facility] Blood Capillary blood specimen / Unknown 04/01/2025 8:14 PM EDT 04/01/2025 8:16 PM EDT us Ирина Lopez MD LAB POINT OF CARE TE ST DOCKED DEVICE UNSOLICITED RESULTS Final Result Performing Organization Address City/[facility]/ZIP Co de Phone Number HEALTHCARE LAB [address] [place] [address] * (ABNORMAL) POCT glucose meter (04/01/2025 5:26 [...] for testing. Comment 04/01/2025 5:29 PM EDT [facility] Clinical Admissions Manager ID Kenn Cabrera 04/01/2025 5:29 PM EDT [facility] Device ID [id number] 04/01/2025 5:29 PM EDT [facility] LAB Specimen Type POC Capillary 04/01/2025 5:29 PM EDT [facility] LAB Blood Capillary blood specimen / Unknown 04/01/2025 5:26 PM EDT 04/01/2025 5:29 PM EDT Ирина Lopez MD LAB POINT OF CARE TE ST DOCKED DEVICE UNSOLICITED RESULTS Final Result Performing Organization Address City/State/[facility] Co de Phone Number [facility] [address] [place] [address] * (ABNORMAL) POCT glucose meter (04/01/2025 12:49 PM EDT) [facility] POCT Glucose 162(H) 74 - 99 mg/dL [...] 04/01/2025 12:51 PM EDT [facility] Clinical Admissions Manager ID Kenn Cabrera 04/01/2025 12:51 PM EDT [facility] Device ID [id number] 04/01/2025 12:51 PM EDT [facility] Specimen Type POC Capillary 04/01/2025 12:51 PM EDT [facility] Blood Capillary blood specimen / Unknown 04/01/2025 12:49 PM EDT 04/01/2025 12:51 PM EDT Ирина Lopez MD LAB POINT OF CARE TE ST DOCKED DEVICE UNSOLICITED RESULTS Final Result Performing Organization Address City/[facility] Co de Phone Number HEALTHCARE LAB [address] [place] [address] * (ABNORMAL) POCT glucose meter (04/01/2025 8:43 [...] 04/01/2025 8:45 AM EDT [facility] Clinical Admissions Manager ID Kenn Cabrera 04/01/2025 8:45 AM EDT HEALTHCARE LAB Device ID [id number] 04/01/2025 8:45 AM EDT HEALTHCARE LAB Specimen Type POC Capillary 04/01/2025 8:45 AM EDT [facility] Blood Capillary blood specimen / Unknown 04/01/2025 8:43 AM EDT 04/01/2025 8:45 AM EDT Ирина Lopez MD LAB POINT OF CARE TE ST DOCKED DEVICE UNSOLICITED RESULTS Final Result Performing Organization Address City/[facility] Co de Phone Number [facility] [address] [place] [address] * XR Chest 1 View (04/01/2025 5:41 [...] ORDERABLES Final R esult Performing Organization Address City/[facility]/ZIP Co de Phone Number [facility] [address] [place] [address] * Magnesium, Plasma (04/01/2025 2:12 AM EDT) Magnesium, Plasma 2.4 1.9 - 2.4 mg/dL 04/01/2025 4:24 AM EDT [facility] Blood Venous blood specimen / Unknown Venipuncture / Unknown 04/01/2025 2:12 AM EDT 04/01/2025 3:21 AM EDT us Ирина Lopez MD LAB BLOOD ORDERABLES Final R esult Performing Organization Address City/[facility]/ZIP Co de Phone Number [facility] [address] [place] [address] * (ABNORMAL) CBC W/O Differential (04/01/2025 2:12 [...] R esult [facility] [address] [place] [address] * (ABNORMAL) POCT glucose meter (03/31/2025 8:19 PM EDT) [facility] POCT Glucose 237(H) 74 - 99 mg/dL [...] Comment 03/31/2025 8:21 PM EDT HEALTHCARE LAB Clinical Admissions Manager ID Jil Ruiz 8:21 PM EDT HEALTHCARE LAB Device ID [id number] 03/31/2025 8:21 PM EDT HEALTHCARE LAB Specimen Type POC Capillary 03/31/2025 8:21 PM EDT [facility]ALTH[facility]ARE LAB Blood Capillary blood specimen / Unknown 03/31/2025 8:19 PM EDT 03/31/2025 8:21 PM EDT Ирина Lopez MD LAB POINT OF CARE TE ST DOCKED DEVICE UNSOLICITED RESULTS Final Result [facility]ARE LAB [address] [place] [address] * (ABNORMAL) POCT glucose meter (03/31/2025 5:24 PM EDT) [facility] POCT Glucose 194(H) 74 - 99 mg/dL [...] 03/31/2025 5:26 PM EDT [facility] Clinical Admissions Manager ID Kenn Cabrera 03/31/2025 5:26 PM EDT [facility] Device ID [id number] 03/31/2025 5:26 PM EDT HEALTHCARE LAB Specimen Type POC Capillary 03/31/2025 5:26 PM EDT [facility]ALTH[facility]ARE LAB Blood Capillary blood specimen / Unknown 03/31/2025 5:24 PM EDT 03/31/2025 5:26 PM EDT us Ирина Lopez MD LAB POINT OF CARE TE ST DOCKED DEVICE UNSOLICITED RESULTS Final Result Performing Organization Address City/State/[facility] Co de Phone Number HEALTHCARE LAB [address] [place] [address] * Transfuse RBC (03/31/2025 3:56 PM EDT) Scarlet Gamboa APRN BLOOD TRANSFUSION ORDERABLES Final Result * Transfuse RBC: 1 Units (03/31/2025 3:56 PM EDT) Scarlet Gamboa APRN BLOOD TRANSFUSION ORDERABLES Final Result * XR [...] MD on 03/31/2025 1:30 PM us Scarlet Gamboa ORTHOTICS TECHNICIAN IMG XR PROCEDURES Final Resul t * [...] for testing. Comment 03/31/2025 12:34 PM EDT [facility] Clinical Admissions Manager ID Kenn Cabrera 03/31/2025 12:34 PM EDT [facility] Device ID [id number] 03/31/2025 12:34 PM EDT [facility] Specimen Type POC Capillary 03/31/2025 12:34 PM EDT [facility] Blood Capillary blood specimen / Unknown 03/31/2025 12:31 PM EDT 03/31/2025 12:34 PM EDT us Ирина Lopez MD LAB POINT OF CARE TE ST DOCKED DEVICE UNSOLICITED RESULTS Final Result [facility] [address] [place] [address] * (ABNORMAL) POCT glucose meter (03/31/2025 9:08 AM EDT) POCT Glucose 173(H) 74 - 99 mg/dL 03/31/2025 9:09 AM EDT [facility] Comment:Accuracy of [...] Comment 03/31/2025 9:09 AM EDT HEALTHCARE LAB Clinical Admissions Manager ID Kenn Cabrera 03/31/2025 9:09 AM EDT HEALTHCARE LAB Device ID [id number] 03/31/2025 9:09 AM EDT HEALTHCARE LAB Specimen Type POC Capillary 03/31/2025 9:09 AM EDT [facility]ALTH[facility]ARE LAB Blood Capillary blood specimen / Unknown 03/31/2025 9:08 AM EDT 03/31/2025 9:09 AM EDT us Ирина Lopez MD LAB POINT OF CARE TE ST DOCKED DEVICE UNSOLICITED RESULTS Final Result Performing Organization Address City/[facility] Co de Phone Number [facility] [address] [place] [address] * Prepare Leukocyte Reduced RBC: 1 Units (03/31/2025 9:02 AM EDT) [facility] Signature Product Code [id number] CH BLOO D BANK Dispense Status Transfused BLOOD BANK Blood Expiration Date [id number] BLOOD BANK Unit Number [id number] CH B LOOD BANK Product Blood Type 6200 BLOOD BANK Blood Type A+ BLOOD BANK Crossmatch Compatible BLOOD BANK Other us Scarlet Gamboa APRN BLOOD BANK PRODUCT ORDERABLES Final Result Performing Organization Address [facility] Co de Phone Number BLOOD BANK [address] [place] [address], * XR Chest 1 View (03/31/2025 6:04 [...] EDT [facility] BUN/Creatinine Ratio 03/31/2025 3:13 AM EDT [facility] [...] ORDERABLES Final R esult Performing Organization Address City/[facility]/ZIP Co de Phone Number [facility] [address] [place] [address] * (ABNORMAL) Magnesium, Plasma (03/31/2025 2:22 AM EDT) Magnesium, Plasma 3.1(H) 1.9 - 2.4 mg/dL 03/31/2025 3:13 AM EDT [facility] Blood Venous blood specimen / Unknown Venipuncture / Unknown 03/31/2025 2:22 AM EDT 03/31/2025 2:41 AM EDT Ирина Lopez MD LAB BLOOD ORDERABLES Final R esult [facility] [address] [place] [address] * (ABNORMAL) CBC W/O Differential (03/31/2025 2:22 [...] esult [facility] [address] [place] [address] * (ABNORMAL) POCT glucose meter (03/30/2025 8:28 PM EDT) POCT Glucose 206(H) 74 - 99 mg/dL 03/30/2025 8:30 PM EDT HEALTHCARE LAB Comment:Accuracy of a [...] Comment 03/30/2025 8:30 PM EDT HEALTHCARE LAB Clinical Admissions Manager ID Danuta Laughlin 03/30/2025 8:30 PM EDT HEALTHCARE LAB Device ID [id number] 03/30/2025 8:30 PM EDT HEALTHCARE LAB Specimen Type POC Capillary 03/30/2025 8:30 PM EDT [facility] Blood Capillary blood specimen / Unknown 03/30/2025 8:28 PM EDT 03/30/2025 8:30 PM EDT Ирина Lopez MD LAB POINT OF CARE TE ST DOCKED DEVICE UNSOLICITED RESULTS Final Result [facility] [address] [place] [address] * (ABNORMAL) POCT glucose meter (03/30/2025 5:20 PM EDT) [facility] POCT Glucose 148(H) 74 - 99 mg/dL 03/30/2025 5:21 PM EDT HEALTHCARE LAB Comment:Accuracy of a [...] 03/30/2025 5:21 PM EDT [facility] Clinical Admissions Manager ID Halima Ervin 03/30/20 5:21 PM EDT HEALTHCARE LAB Device ID [id number] 03/30/2025 5:21 PM EDT [facility]ALTH[facility]ARE LAB Specimen Type POC Capillary 03/30/2025 5:21 PM EDT [facility]ALTH[facility] LAB Blood Capillary blood specimen / Unknown 03/30/2025 5:20 PM EDT 03/30/2025 5:21 PM EDT us Ирина Lopez MD LAB POINT OF CARE TE ST DOCKED DEVICE UNSOLICITED RESULTS Final Result [facility] [address] [place] [address] * XR Chest 1 View (03/30/2025 4:46 [...] on 03/30/2025 5:01 PM us Scarlet Gamboa ORTHOTICS TECHNICIAN IMG XR PROCEDURES Final Resul t * [...] Comment 03/30/2025 12:49 PM EDT HEALTHCARE LAB Clinical Admissions Manager ID Cata Gibbs 12:49 PM EDT HEALTHCARE LAB Device ID [id number] 03/30/2025 12:49 PM EDT [facility]ALTHCARE LAB Specimen Type POC Venous 03/30/2025 12:49 PM EDT [facility]ALTH[facility] LAB Blood Venous blood specimen / Unknown 03/30/2025 12:48 PM EDT 03/30/2025 12:49 PM EDT us Ирина Lopez MD LAB POINT OF CARE TE ST DOCKED DEVICE UNSOLICITED RESULTS Final Result Performing Organization Address City/[facility]/ZIP Co de Phone Number [facility] [address] [place] [address] * (ABNORMAL) Magnesium, Plasma (03/30/2025 10:57 AM EDT) Magnesium, Plasma 3.1(H) 1.9 - 2.4 mg/dL 03/30/2025 11:49 AM EDT [facility] Blood Venous blood specimen / Unknown Venipuncture / Unknown 03/30/2025 10:57 AM EDT 03/30/2025 11:16 AM EDT us Scarlet Gamboa APRN LAB BLOOD ORDERABLES Final Re sult [facility] [address] [place] [address] * (ABNORMAL) Renal function panel (03/30/2025 10:57 [...] R esult [facility] [address] [place] [address] * (ABNORMAL) POCT glucose meter (03/30/2025 10:56 AM EDT) [facility] POCT Glucose 252(H) 74 - 99 mg/dL [...] 03/30/2025 11:00 AM EDT [facility] Clinical Admissions Manager ID Cata Gibbs 11:00 AM EDT HEALTHCARE LAB Device ID [id number] 03/30/2025 11:00 AM EDT [facility]ALTHCARE LAB Specimen Type POC Venous 03/30/2025 11:00 AM EDT [facility]ALTH[facility] LAB Blood Venous blood specimen / Unknown 03/30/2025 10:56 AM EDT 03/30/2025 11:00 AM EDT us Ирина Lopez MD LAB POINT OF CARE TE ST DOCKED DEVICE UNSOLICITED RESULTS Final Result Performing Organization Address City/State/[facility] Co de Phone Number HEALTHCARE LAB [address] [place] [address] * (ABNORMAL) POCT glucose meter (03/30/2025 9:38 AM EDT) [facility] POCT Glucose 271(H) 74 - 99 mg/dL [...] 03/30/2025 9:39 AM EDT [facility] Clinical Admissions Manager ID Cata Gibbs 9:39 AM EDT HEALTHCARE LAB Device ID [id number] 03/30/2025 9:39 AM EDT HEALTHCARE LAB Specimen Type POC Venous 03/30/2025 9:39 AM EDT [facility]ALTH[facility]ARE LAB Blood Venous blood specimen / Unknown 03/30/2025 9:38 AM EDT 03/30/2025 9:39 AM EDT Ирина Lopez MD LAB POINT OF CARE TE ST DOCKED DEVICE UNSOLICITED RESULTS Final Result Performing Organization Address City/[facility] Co de Phone Number HEALTHCARE LAB [address] [place] [address] * ECG Adult (03/30/2025 8:37 AM EDT) EKG DIAGNOSIS CLASS Abnormal MUSE ECG Ventricular Rate 81 BPM MUSE ECG Atrial Rate 81 BPM MUSE ECG GA Interval 170 ms MUSE ECG QRSD Interval 104 ms MUSE ECG QT Interval 416 ms MUSE ECG QTC Interval 483 ms MUSE ECG P [place] 39 degrees MUSE ECG R [place] -51 degrees MUSE ECG T Wave [place] -15 degrees MUSE ECG Diagnosis Poor data quality, interpretation may be adversely affected MUSE ECG Diagnosis Normal sinus rhythm MUSE ECG Diagnosis Left anterior fascicular block MUSE ECG Diagnosis Moderate voltage criteria for LVH, may be normal variant ( R in aVL , [place] product ) MUSE ECG Diagnosis Possible Anterolateral infarct , age undetermined MUSE ECG Diagnosis QTcB >= 480 msec MUSE ECG Diagnosis Abnormal ECG MUSE ECG Diagnosis MUSE ECG Diagnosis Confirmed by Carey Michel ([id number]) on 03/30/2025 9:40:26 AM MUSE ECG 03/30/2025 8:37 AM EDT 03/30/2025 9:40 AM EDT Ирина Lopez MD ECG ORDERABLES Final Result Performing Organization Address [facility] Co de Phone Number MUSE ECG * (ABNORMAL) POCT glucose meter (03/30/2025 8:10 AM EDT) Pathologist [facility] POCT Glucose 164(H) 74 - 99 mg/dL 03/30/2025 8:11 AM EDT [facility] Comment:Accuracy of a glucos [...] Comment 03/30/2025 8:11 AM EDT HEALTHCARE LAB Clinical Admissions Manager ID Cata Gibbs 8:11 AM EDT HEALTHCARE LAB Device ID [id number] 03/30/2025 8:11 AM EDT HEALTHCARE LAB Specimen Type POC Venous 03/30/2025 8:11 AM EDT HEALTHCARE LAB Blood Venous blood specimen / Unknown 03/30/2025 8:10 AM EDT 03/30/2025 8:11 AM EDT us Ирина Lopez MD LAB POINT OF CARE TE ST DOCKED DEVICE UNSOLICITED RESULTS Final Result [facility] [address] [place] [address] * (ABNORMAL) Renal function panel (03/30/2025 4:05 [...] ORDERABLES Final R esult Performing Organization Address City/[facility]/ZIP Co de Phone Number [facility] [address] [place] [address] * (ABNORMAL) Magnesium (03/30/2025 4:05 AM EDT) Magnesium, Plasma 1.4(L) 1.9 - 2.4 mg/dL 03/30/2025 4:40 AM EDT [facility] Blood Arterial blood specimen / Unknown Arterial Puncture / Unknown 03/30/2025 4:05 AM EDT 03/30/2025 4:11 AM EDT Ирина Lopez MD LAB BLOOD ORDERABLES Final R esult [facility] [address] [place] [address] * (ABNORMAL) CBC W/O Differential (03/30/2025 4:05 [...] R esult [facility] [address] [place] [address] * XR Chest 1 View (03/30/2025 1:35 [...] R esult [facility] [address] [place] [address] * (ABNORMAL) Renal Function Panel, Plasma (03/29/2025 [...] R esult [facility] [address] [place] [address] * (ABNORMAL) Magnesium, Plasma (03/29/2025 7:58 PM EDT) Magnesium, Plasma 1.3(L) 1.9 - 2.4 mg/dL 03/29/2025 8:39 PM EDT [facility] Blood Arterial blood specimen / Unknown Arterial Puncture / Unknown 03/29/2025 7:58 PM EDT 03/29/2025 8:05 PM EDT us Ирина Lopez MD LAB BLOOD ORDERABLES Final R esult Performing Organization Address City/[facility]/ZIP Co de Phone Number [facility] [address] [place] [address] * Fibrinogen (03/29/2025 7:58 PM EDT) Fibrinogen, Quantitative (Clottable) 294 208 - 459 mg/dL LAB COAGULATION METHOD 03/29/2025 8:38 PM EDT [facility] Blood Arterial blood specimen / Unknown Arterial Puncture / Unknown 03/29/2025 7:58 PM EDT 03/29/2025 8:05 PM EDT us Kiana Gusman CRNA LAB BLOOD ORDERABLES Final R esult Performing Organization Address City/[facility]/[place] [address] * Protime-INR (03/29/2025 7:58 PM EDT) Pathologist [facility] Prothrombin Time 13.8 12.0 - 14.3 sec [...] INR 2.5 to 3.5 Prevention of recurrent [place] INR 2.5 to 3.5 us Kiana Gusman CRNA LAB BLOOD ORDERABLES Final R esult [facility] [address] [place] [address] * (ABNORMAL) CBC and differential (03/29/2025 7:58 PM EDT) [facility] WBC Count 8.18 3.70 - 10.30 10*3/uL [...] 7:58 PM EDT 03/29/2025 8:04 PM EDT [facility] - 03/29/2025 8:29 PM EDT Therapeutic decision making should be based on absolute values, rather than percentages. us Kiana L Gusman [facility] LAB BLOOD ORDERABLES Final R esult Performing Organization Address City/[facility] Co de Phone Number [facility] [address] [place] [address] * (ABNORMAL) POCT glucose meter (03/29/2025 7:43 [...] for testing. Comment 03/29/2025 7:45 PM EDT [facility] Clinical Admissions Manager ID Radha Slater 03/29/20 25 7:45 PM EDT [facility] Device ID [id number] 03/29/2025 7:45 PM EDT [facility] Specimen Type POC Capillary 03/29/2025 7:45 PM EDT [facility] Blood Capillary blood specimen / Unknown 03/29/2025 7:43 PM EDT 03/29/2025 7:45 PM EDT Ирина Lopez MD LAB POINT OF CARE TE ST DOCKED DEVICE UNSOLICITED RESULTS Final Result Performing Organization Address [facility] Co de Phone Number [facility] [address] [place] [address] * Surgical Pathology Exam (03/29/2025 5:10 PM EDT) Case Report Surgical Pathology Case: [id number] Authorizing Provider: Ирина Lopez MD Collected: 03/29/2025 1716 Ordering Location: [facility] A OPERATING ROOM Received: 03/30/2025 0753 Pathologist: [...] EXCISION: - LIPOMA. 5 2:[address] [facility] at 1445 EDT Synoptic Checklist LUNG LUNG [...] developed by and are performed at the [facility], [address] [place] [address]. All tests reported here, except those addressing [...] on decalcified specimens. 5 2:45 PM EDT [facility] Gross Description A. BRONCHIAL MARGIN [...] 0.3-0.6 cm in greatest dimension are identified. Practice Nurse sections are submitted as follows: F1: Bronchial margin F2: Vascular margins F3: Nearest stapled margin, en face F4: Grossly unremarkable parenchyma F5-F10: Mass, entirely submitted F11: Two intact lymph nodes Cold Time: 13h 43m SWATI Wong ([facility]) G. LIPOMA The specimen is received fresh and placed in formalin, labeled l ipoma , and consists of a 5.8 x 5.6 x 2.1 cm unoriented portion of leggett-yellow lobulated fibroadipose tissue. The external surface is inked blue. Sectioning reveals a leggett-yellow lobulated cut surface. No areas of hemorrhage or necrosis are identified. Practice Nurse sections are submitted in cassettes G1-G3. Cold [...] al Result [facility] [address] [place] [address] * (ABNORMAL) Blood gas panel, arterial (03/29/2025 [...] esult [facility] [address] [place] [address] * APTT (03/29/2025 4:04 PM EDT) aPTT 28 25 - 35 sec LAB COAGULATION METHOD 03/29/2025 4:39 PM EDT [facility] Blood Arterial blood specimen / Unknown 03/29/2025 4:04 PM EDT 03/29/2025 4:18 PM EDT Comment:Pre-op diagnosis: Non-small cell cancer of left lung Ирина Lopez MD LAB BLOOD ORDERABLES Final R esult Performing Organization Address [facility] Co de Phone Number [facility] [address] [place] [address] * Prothrombin Time/INR (03/29/2025 4:04 PM EDT) [...] INR 2.5 to 3.5 Prevention of recurrent [place] INR 2.5 to 3.5 Ирина Lopez MD LAB BLOOD ORDERABLES Final R esult Performing Organization Address City/[facility] Co de Phone Number [facility] [address] [place] [address] * Fibrinogen, Quantitative (Clottable) (03/29/2025 4:04 PM [...] esult [facility] [address] [place] [address] * (ABNORMAL) CBC W/O Differential (03/29/2025 4:04 [...] esult [facility] [address] [place] [address] * (ABNORMAL) Blood gas panel, arterial (03/29/2025 [...] ORDERABLES Final R esult Performing Organization Address City/[facility]/ZIP Co de Phone Number [facility] [address] [place] [address] * (ABNORMAL) POCT glucose meter (03/29/2025 12:48 [...] Comment 03/29/2025 12:50 PM EDT HEALTHCARE LAB Clinical Admissions Manager ID Rosalie Cuevas 03/29/20 25 12:50 PM EDT HEALTHCARE LAB Device ID [id number] 03/29/2025 12:50 PM EDT HEALTHCARE LAB Specimen Type POC Venous 03/29/2025 12:50 PM EDT [facility] Blood Venous blood specimen / Unknown 03/29/2025 12:48 PM EDT 03/29/2025 12:50 PM EDT Ирина Lopez MD LAB POINT OF CARE TE ST DOCKED DEVICE UNSOLICITED RESULTS Final Result Performing Organization Address City/[facility]/ZIP Co de Phone Number HEALTHCARE LAB [address] [place] [address] * (ABNORMAL) Blood gas, venous (03/29/2025 12:27 [...] MD LAB BLOOD ORDERABLES Final Resu lt [facility] [address] [place] [address] * Type and Screen (03/29/2025 12:27 PM [...] TEST ORDERABLES Final Result Performing Organization Address [facility] de Phone Number BLOOD BANK [address] [place] [address] documented in this encounter Visit Diagnoses Diagnosis [...] 4 hours PRN, Starting on Sat03/30/25 at 08, Until Sat04/04/25 at 1418, Routine, Recovery(Phase II-Outpatient)/On [...] Carmella Iniguez RN)[id number] (Given - Provider: Pam Terjo RN) 0615 (Given - Provider: Pam Trejo [...] Provider: Dipak Serrano RN)[phone] (Given - Provider: Tarvis Corral RN)1754 (Given - Provider: Travis Corral [...] documented as of this encounter Care Teams Histology Aide Relationship Specialty Start Date End Date Casa Phillips MD [address] [place] [address] PCP - General 02/22/25 Forrest Nickerson, BING [address] [place] [address] 03/06/23 documented as of this encounter
--- OUTSIDE RECORDS SUMMARY | 2025-03-29 13:34 | XMS_ITS | Encounter Summary ---
Author Organization [facility] Address [address] [place] [address] Care Team Providers Care Piping Drafter Name Role Phone Forrest Nickerson TRENCH PIPE LAYER HELPER Unavailable [phone] Casa Phillips MD Primary Care Provider [phone] Reason for Visit * Auth/Cert (Routine) Specialty Diagnoses / Procedures Referred By Contac t Referred To Contact Diagnoses Non-small cell cancer of left lung (CMS/HCC) Non-small cell cancer of left lung Procedures [place] THORACOSCOPY SURG LOBECTOMY LEFT VATS LOBECTOMY Ирина Lopez MD [address] [facility] [address] [place] [address] Phone: tel: fax: PAV A OPERATING ROOM [address] [place] [address] Phone: tel: Referral ID Status Reason Start Date Expiration Date Visits Re quested Visits Authorized [id number] 1 1 Encounter Details Date Type Department Care Team (Late st Contact Info) Description 03/29/2025 1:34 PM EDT Anesthesia Event [facility]PERATING ROOM [address] [place] [address] Jimmy Kim MD [address] [place] [address] Laquita Brand MD [address] [place] [phone] Anesthesia Record Procedure Summary Procedure Name Responsible [...] Location: Midaxillary; Size: 24 Fr; Drainage System: [place]/nonsuction water seal drainage 03/29/25 1803 by Juliana Medina RN Peripheral IV Placement Date: 03/14 04/07; Placement Time: 1334; Catheter Size: 20 G; Orientation: Anterior, Right; Location: Forearm; Site Prep: Chlorhexidine ; Local Anesth: Injectable; Inserted by: Debby Cuevas; Insertion Attempts: 3; Patient Tolerance: Tolerated well; Removal Date: 04/03/25; Removal Time: 0500; Removal Reason: Leaking 03/29/25 1334 by Rosalie Ceuvas RN 04/03/25 0500 by Xochitl Fagan ETT [...] by Raquel Sharp RN 04/03/25 1100 by Ingiuez, Carmella G, RN documented in this encounter [...] any time in the past 12 m [facility], were you homeless or living in a detention (including now)? No 03/31/2025 Utilities Answer Date [...] procedure well with no complications. Staffing Performed: SENIOR ARCHITECT/DESIGN MANAGER * Anesthesia Procedure Notes - Robert Santos MD - 03/29/2025 2:17 PM EDT Associated Order(s): Airway Airway Date/Time: 03/29/2025 1:48 PM Reason: elective Airway not difficult General Information and Staff Patient location during procedure: OR SENIOR ARCHITECT/DESIGN MANAGER: Kiana Gusman CRNA Performed: SENIOR ARCHITECT/DESIGN MANAGER Patient Condition Indications for airway management: [...] from the original note were not included. [facility] Cole Feliz Jr. is a 79 [...] HISTORY: Surgical History[4] Allergies[5] MEDICATIONS: Current Medications[6] oRbert Santos MD HPI Cole Jean Trini Ivan is a 79 y.o. male who presents with Pre-op Diagnosis * Lung nodule [R91.1] now scheduled for LEFT VATS LOBECTOMY (Left) with Ирина Lopez MD [place]29[place] [facility] [place] Past Medical History[7] Family History[8] Social History[9] [...] artery disease (patient denies), hyperlipidemia and past [place]. Does not have atrial fibrillation, CHF, dyspnea, [...] Date Arthritis CAD (coronary artery disease) Diabetes ([facility]) Hepatitis High blood pressure High [...] CC Head, Neck & Respiratory [address] [facility], [address]nd [place] [address] Nikolai Naranjo MD [address] [place] [address] documented as of this encounter Procedures Procedure Name Priority Date/Time Associated Diagnosis Comments ANESTHESIA PERIPHERAL IV PLACEMENT Routine 03/29/2025 2:00 PM EDT ANESTHESIA ARTERIAL LINE PLACEMENT Routine 03/29/2025 1:57 PM EDT PB ANESTHESIA PLACEHOLDER Routine 03/29/2025 1:48 PM EDT [place] AN ELECTIVE ENDOTRACHEAL AIRWAY Routine 03/29/2025 1:48 [...] procedure well with no complications. Staffing Performed: SENIOR ARCHITECT/DESIGN MANAGER Robert Santos MD ANESTHESIA ORDERABLES Edited Re sult - Final * [place] AN ELECTIVE ENDOTRACHEAL AIRWAY, PB ANESTHESIA PLACEHOLDER (03/29/2025 1:48 PM EDT) Narrative Robert Santos MD - 03/29/2025 1:48 PM EDT Robert Santos MD 03/29/2025 3:02 PM Airway Date/Time: 03/29/2025 1:48 PM Reason: elective Airway not difficult General Information and Staff Patient location during procedure: OR SENIOR ARCHITECT/DESIGN MANAGER: Kiana Gusman SENIOR ARCHITECT/DESIGN MANAGER Performed: SENIOR ARCHITECT/DESIGN MANAGER Patient Condition Indications for airway management: [...] documented as of this encounter Care Teams Piping Drafter Relationship Specialty Start Date End Date Casa Phillips MD [address] [place] [address] PCP - General 02/22/25 Forrest Nickerson APRN [address] [place] [address] 03/06/23 documented as of this encounter
--- OUTSIDE RECORDS SUMMARY | 2025-04-06 10:40 | XMS_ITS | Encounter Summary ---
Author Organization [facility] Address [address] [place] [address] Care Team Providers Care Event Marketing Coordinator Name Role Phone Demetrio Nickersonann Theresa INVAS TECH Unavailable [phone] Casa Phillips MD Primary Care Provider [phone] Reason for Referral * Consultation (Routine) - Authorized Specialty Diagnoses / Procedures Referred By Contac t Referred To Contact Medical Oncology Diagnoses Non-small cell cancer of left lung (CMS/HCC) Nikolai Naranjo MD [address] [address] Phone: tel: fax: Referral ID Status Reason Start Date Expiration Date Visits Requested Visits Authorized [id number] Authorized Specialty Services Required 04/06/2025 10/06/2026 [address] Dagoberto Rosales at [facility] Reason for Visit * Reason Comments Follow-up Encounter Details Date Type Department Care Team ([facility] st Contact Info) Description 04/06/2025 10:40 AM EDT Office Visit Pav CC Head, Neck & Respiratory [address] [place] [phone] Nikolai Naranjo MD [address] [facility] [address] [place] [address] Non-small cell cancer of left lung (CMS/HCC) (Primary Dx); CKD (chronic kidney disease) stage 2, GFR 60-89 ml/min; Tobacco use disorder; Essential hypertension; Type 2 diabetes mellitus with stage 2 chronic kidney disease, without long-term current use of insulin (CMS/HCC) Social History Tobacco Use Types Packs/Day Years Used Date Smoking Tobacco: Every Day Cigars Started: 1956 Smokeless Tobacco: Never Tobacco Cessation:Ready to Q uit: Not Asked; Counseling Given: No Alcohol Use Standard Drinks/Week Comments Yes 14 [...] any time in the past 12 m [facility], were you homeless or living in a usp (including now)? No 03/31/2025 Utilities Answer Date Recorded In the past 12 months has [employer], gas, oil, or water company threatened to [...] Sign Reading Time Taken Comments Blood Pressure 124/70 04/06/2025 10:21 AM EDT Pulse 86 04/06/2025 10:21 AM EDT Temperature 36.3 C (97.3 F) 04/06/2025 10:21 AM EDT Respiratory Rate 15 04/06/2025 10:21 AM EDT Oxygen Saturation 99% 04/06/2025 10:21 AM EDT Inhaled Oxygen Concentration - - Weight 66.9 kg (147 lb 7.8 oz) 04/06/2025 10:21 AM EDT Height - - Body Mass Index 21.16 03/30/2025 1:25 PM EDT documented in this encounter Miscellaneous Notes * Progress Notes - Nikolai Naranjo MD - 04/06/2025 10:40 AM EDT Images from the original note were not included. Medical Oncology Clinic Note Patient Name: Cole Feliz Jr. Date of : 1945 79 y.o. Referring Physician:No referring provider defined for this encounter. Encounter Date: 04/06/2025 Chief Complaint: Chief Complaint Patient presents with Follow-up History of present illness 79-year-old male with lung cancer risk factors plus significant history of COPD, tobacco abuse, coronary disease status post PCI who was diagnosed with a new likely early stage biopsy-proven lung NSCLC (adenocarcinoma) of HIEN. He was referred to Dr. Hui Shankar. Interval history: He presents today with family on 04/06/2025 after surgery on 03/29/25. Reports he is doing well aftersurgery. Surgical incision is sore but no significant pain. No cough, hemoptysis, worsening shortness of breath. Prefers to take something less strong than oxycodone for his pain. No fevers or chills. . Current Treatment Regimen: Surveillance versus adjuvant after [...] image 161 series 4 and 3. A Pkx-VIP-zrwj subpleural 4 mm tiny perifissural nodule at [...] March Pulmonary function test-diffusion capacity corrected 77.4. 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 PDL1 positive 1%. Negative ALK, B JAYLENE, EGFR, KRAS, RET, ROS1 MRI brain considered (new forgetfulness with imbalance-> cane since 2023)- Pathology Fine needle aspiration: [id number] Order: [id number] Collected 01/28/2025 14:07 Final Diagnosis A. LUNG, [...] level: Positive for PD-L1 expression (TPS 1-49%) L VATS converted to thoracotomy, left upper lobectomy on 03/29/2025. Surgical Pathology Exam: [id number] Order: [id number] Collected 03/29/2025 17:10 Status: Final result Dx: Non-small cell cancer of left lung (C... Test Result Released: No (scheduled for 04/08/2025 2:45 PM) 0 Result Notes Component Final Diagnosis A. LUNG, BRONCHIAL MARGIN, EXCISION, [...] (0/2). G. SOFT TISSUE, EXCISION: - LIPOMA. at 1445 EDT Synoptic Checklist LUNG AJCC 9 - Protocol posted: 09/23/2024LUNG - All Specimens SPECIMEN Procedure Lobectomy Specimen Laterality Left TUMOR Tumor Focality Single focus Tumor Site Upper lobe of lung Tumor Size Invasive Tumor Size Greatest Dimension (Centimeters): 2.6 cm Total Tumor Size Greatest Dimension (Centimeters): 2.6 cm Additional Dimension (Centimeters) 1.7 cm 1.4 cm Histologic Type Invasive acinar adenocarcinoma Histologic Patterns Acinar: 80 Lepidic: 15 Complex glands (cribriform and fused glands): 5 Histologic Grade G2, moderately differentiated Spread Through Air Spaces (COLLINS) Not identified Visceral Pleura Invasion Present Direct Invasion of Other Structures Not applicable (no other structures present) Treatment Effect No known presurgical therapy Lymphatic and / or Vascular Invasion Not identified MARGINS Margin Status for Invasive Tumor All margins negative for invasive tumor Closest Margin(s) to Invasive Tumor Parenchymal Distance from Invasive Tumor to Closest Margin 3 cm Margin Status for Non-Invasive Tumor All margins negative for non-invasive tumor REGIONAL LYMPH NODES Lymph Node(s) from Prior Procedures Not included Regional Lymph Node Status All regional lymph nodes negative for tumor Number of Lymph Nodes Examined 13 Nydia Site(s) Examined 7: Subcarinal 5: Subaortic / aortopulmonary (AP) / AP window 6: Para-aortic (ascending aorta or phrenic) 10L: Hilar 12L-14L: Intrapulmonary pTNM CLASSIFICATION (AJCC Version 9) Reporting of pT, pN, and (when applicable) pM categories is based on information available to the pathologist at the time the report is issued. As per the AJCC (Chapter 1, 8th Ed.) it is the managingphysician's responsibility to establish the final pathologic stage based upon all pertinent information, including but potentially not limited to this pathology report. pT Category pT2a pN Category pN0 . Past Medical, Surgical, Family and Social History: Past Medical History[1] Surgical History[2] Family History[3] --FH positive for cancers: both parents had lung cancer; both (mother ~age 58, father ~age74). Brother with liver cancer (heavy EtOH use). Sister with lung cancer (heavy tobacco smoker unrz6wb hand exposure). Social History[4] --tobacco smoker since age 13: cigars then switched to cigarettes 1PPD. Quit from 6305-1080, but later relapsed in 2015 to present (3-4 cigarettes x day). Re-contemplating phase, open to explore NRT options. --2nd hand tobacco smoking exposure from both parents during early to young adult age --occasional alcohol. No illicit drug use. [place] [facility] [place] [id number]. Allergies: Cetirizine Medications: Current Medications[5] Review of Systems: A comprehensive 14 point review of systems was performed, noted to be negative with the pertinent positives documented in the HPI section of this note. Vital Signs: Visit Vitals BP 124/70 Pulse 86 Temp 36.3 ??C (97.3 ??F) Resp 15 Physical Examination: GENERAL: no acute distress. SKIN: No rashes, well healed surgical scars EYES: no pallor or icterus ENT: intact HEAD/NECK: neck supple RESPIRATORY: non-labored respirations CARDIOVASCULAR: no peripheral edema GASTROINTESTINAL: soft, non-tender, non-distended MUSCULOSKELETAL: No muscle wasting NEUROLOGICAL: alert and oriented x3, no focal deficits PSYCHOLOGICAL: Normal mood. Labs, Imaging, Pathology: Lab Results Component Value Date WBC 5.44 04/04/2025 RBC 3.77 (L) 04/04/2025 HGB 10.7 (L) 04/04/2025 HCT 32.4 (L) 04/04/2025 MCV 86 04/04/2025 MCHC 33.0 04/04/2025 RDW 14.7 (H) 04/04/2025 PLT 220 04/04/2025 MPV 9.1 04/04/2025 Lab Results Component Value Date BUN 18 04/04/2025 CL 103 04/04/2025 NA 136 04/04/2025 K 4.3 04/04/2025 ALK Negative 01/28/2025 Blood pressure 124/70, pulse 86, temperature 36.3 ??C (97.3 ??F), resp. rate 15, weight 66.9 kg (147 lb 7.8 oz), SpO2 99%. No image results found. Previously visualized the recent imaging and discussed the [...] scanner: Siemens Biograph 40 mCT. PET/CT acquisition: Isckrm-ql-wrx-thighs. Standardized uptake value (SUV): Corrected for body weight only. CT: Low-dose, qyg-trhcrz-guvk, without intravenous contrast. TOTAL DLP (Dose Length [...] 1.8 (image 161 series 4 and 3). Gke-BXY-sgbs subpleural 4 mm tiny perifissural nodule is [...] s/p PCI x3 (last in 2020 for suzw-xsxa-TZD; on DAPT), probable COPD [employer] heavy tobacco use plus 2nd hand exposure since teens, T2DM (uncomplicated), HTN who was diagnosed in January 2025 with a biopsy proven lung NSCLC (adenocarcinoma) of IHEN. # Stage IB adenocarcinoma of the lung Stage IA prior to surgery, 1B post surgery-pT2a pN0 cM0 Cancer management : Cole Feliz Jr. is diagnosed with stage IA2 adenocarcinoma of the lung This represents a life threatening illness for which urgent cancer treatment is indicated. - Treatment goal-curative - Next Gen Sequencing: Caris with MET amplification as noted above. - Regimen: Lobectomy. Offered adjuvant chemotherapy and immunotherapy-patient prefers treatment to be closer to home. - Thoracic Oncology evaluated 02/22/25- resectable (clinical stage I lung cancer); OR planned for L VATS upper lobectomy and MLND on 03/29/25.. - RTC in 3 months -referral to [facility] oncologist Dr. Rosales # Imbalance with now use of cane [...] TTOP enrollment at , likelyeligible. # Nutrition- square shear operator consult next visit. Chronic conditions: HR-CAD s/p PCI on DAPT (last PCI in 2020)- asymptomatic. Prostatomegaly s/p prostate surgery x3 by local urology provider [facility] T2DM with recent weight loss (25 lbs in 3M)- uncomplicated. Possible claudication based on history- pt does not have formal dx of PAD, has never had KAMRYN or vascular testing. SDOH: transportation, health literacy, financial. Nikolai Shankar MD [1] Past Medical History: Diagnosis Date Arthritis [...] Drug use: Never [5] Current Outpatient Medications: acetaminophen (Tylenol) 500 MG tablet, Take 2 tablets by mouth every 6 hours for 14 days., Disp: 112 tablet, Rfl: 0 aspirin 81 MG EC tablet, Take 1 tablet by mouth daily., Disp: , Rfl: clopidogrel (Plavix) 75 MG tablet, Take 1 tablet by mouth daily., Disp: , Rfl: metFORMIN (Glucophage) 1000 MG tablet, Take 1 tablet by mouth 2 times a day., Disp: , Rfl: methocarbamol (Robaxin) 500 MG tablet, Take 1 tablet by mouth every 6 hours for 14 days., Disp: 56 tablet, Rfl: 0 oxyCODONE (Roxicodone) 5 MG immediate release tablet, Take 1 tablet by mouth every 6 hours as needed for moderate pain for up to 15 doses., Disp: 15 tablet, Rfl: 0 rosuvastatin (Crestor) 20 MG tablet, Take 1 tablet by mouth daily., Disp: , Rfl: tamsulosin (Flomax) 0.4 MG 24 hr capsule, Take 1 capsule by mouth daily., Disp: 30 capsule, Rfl: 0 polyethylene glycol (Miralax) 17 g packet, Take 17 g by mouth daily. (Patient not taking: Reported on 04/06/2025), Disp: 30 packet, Rfl: 0 senna-docusate (Betty-Colace) 8.6-50 MG tablet, Take 2 tablets by mouth 2 times a day for 14 days. (Patient not taking: Reported on 04/06/2025), Disp: 56 tablet, Rfl: 0 documented in this encounter Plan of Treatment Upcoming Encounters Date Type Department Care Team (Late st Contact Info) Description 07/06/2025 10:40 AM EDT Office Visit Pav CC Head, Neck & Respiratory [address] [facility], [address]nd [place] [address] Nikolai Naranjo MD [address] [facility] [address] [place] [address] Scheduled Referrals Name Type Priority Associated Diagnoses Order Schedule Ambulatory referral to Hematology Oncology/Medical Oncology Outpatient Referral Routine Non-small cell cancer of left lung (CMS/HCC) Expected: 04/06/2025 (Approximate), Expires: 10/08/2026 documented as of this encounter Visit Diagnoses Diagnosis Non-small cell cancer of left lung (CMS/HCC)- Primary CKD (chronic kidney disease) stage 2, GFR 60-89 ml/min Chronic kidney disease, Stage II (mild) Tobacco use disorder Essential hypertension Unspecified essential hypertension Type 2 diabetes mellitus with stage 2 chronic kidney disease, without long-term current use of insulin (CMS/HCC) documented in this encounter Additional Health Concerns Assessment Noted Time A fall risk assessment has been complete d for the patient 04/06/2025 10:27 AM EDT A Body Mass Index follow-up plan has been documented for the patient 04/06/2025 12:11 PM EDT documented as of this encounter Care Teams Event Marketing Coordinator Relationship Specialty Start Date End Date Casa Phillips MD [address] [place] [address] PCP - General 02/22/25 Forrest Nickerson APRN [address] [place] [address] 03/06/23 documented as of this encounter
--- OUTSIDE RECORDS SUMMARY | 2025-04-06 11:30 | XMS_ITS | Encounter Summary ---
Author Organization [facility] Address [address] [place] [address] Care Team Providers Care Senior Speech Pathologist Name Role Phone Demetrio trevinoann Cardenas PAINT LINE OPERATOR Unavailable [phone] Casa Phillips MD Primary Care Provider [phone] Encounter Details Date Type Department Care Team (Late st Contact Info) Description 04/06/2025 11:30 AM EDT Office Visit Pav CC Head, Neck & Respiratory [address], [address] [place] [address] Ирина Lopez MD [address] [facility] [address] [place] [address] Non-small cell cancer of left [...] any time in the past 12 m [facility], were you homeless or living in [...] from the original note were not included. [facility] Department of Surgery Section of Thoracic Surgery Outpatient Clinic Note Diagnosis: lung cancer Procedure: 03/29/2025 L thoracotomy HIEN Pathology: [id number] (2.6 cm with visceral pleural invasion) Interval [...] it starts draining again. Ирина Lopez MD job coach/job developer Thoracic Surgery documented in this encounter Plan of Treatment Upcoming Encounters Date Type Department Care Team (Late st Contact Info) Description 07/06/2025 10:40 AM EDT Office Visit Pav CC Head, Neck & Respiratory [address] [facility], [address]nd [place] [address] Nikolai Naranjo MD [address] [facility] [address] [place] [address] documented as of this encounter Visit Diagnoses [...] as of this encounter Care Teams Senior Speech Pathologist Relationship Specialty Start Date End Date Casa Phillips MD [address] [place] [address] PCP - General 02/22/25 Forrest Nickerson APRN [address] [place] [address] 03/06/23 documented as of this encounter
--- OUTSIDE RECORDS SUMMARY | 2025-04-20 10:00 | XMS_ITS | Encounter Summary ---
Author Organization [facility] Address [address] [place] [address] Care Team Providers Care Toe Former Name Role Phone Forrest Nickerson TABLET COATER Unavailable [phone] Casa Phillips MD Primary Care Provider [phone] Encounter Details Date Type Department Care Team (Latest Contact Info) Description 04/20/2025 10:00 AM EDT - 04/20/2025 11:59 PM EDT Hospital Encounter PAV H Radiology [address] [place] [address] Non-small cell cancer of left lung (CMS/HCC) [...] in the past 12 m [facility], were you homeless or living in a penitentiary (including now)? No 03/31/2025 Utilities Answer Date Recorded In the past 12 months has th e [employer], gas, oil, or water company threatened to [...] by mouth 2 times a day. 12/07/2024 naloxone (Narcan) 4 mg/0.1 mL nasal spray 1. Give 1 spray in nostril for no/slow breathing or cannot wake after opioid use 2. Call 911 3. Repeat in other nostril if symptoms continue 1 each 04/06/2025 oxyCODONE (Roxicodone) 5 MG immediate release tablet Take 1 tablet by mouth every 6 hours as needed for moderate pain for up to 15 doses. 15 tablet 04/04/2025 polyethylene glycol (Miralax) 17 g packet Take 17 g by mouth daily. 30 packet 04/04/2025 rosuvastatin (Crestor) 20 MG tablet Take 1 tablet by mouth daily. HYDROcodone-acet aminophen (Paige) 10-325 MG tablet Take 1 tablet by mouth every 6 hours as needed for severe pain for up to 10 days. 40 tablet 04/20/2025 tamsulosin (Flomax) 0.4 MG 24 hr capsule Take 1 capsule by mouth daily. 30 capsule 04/04/2025 5 documented as of this encounter Plan of Treatment Upcoming Encounters Date Type Department Care Team ([facility] st Contact Info) Description 07/06/2025 10:40 AM EDT Office Visit Pav CC Head, Neck & Respiratory [address] [facility], 2nd [place] [address] Nikolai Naranjo MD [address] [facility] [address] [place] [address] documented as of this encounter Procedures Procedure Name Priority Date/Time Associated Diagnosis Comments XR CHEST 2 VIEWS Routine 04/20/2025 11:2 6 AM EDT Non-small cell cancer of left lung (CMS/HCC) documented in this encounter Results * XR [...] Dagoberto Forrester MD on 04/20/2025 12:22 PM us Ирина Lopez MD IMG XR PROCEDURES Final Resu lt documented in this encounter Visit Diagnoses Diagnosis Non-small cell cancer of left lung (CMS/HCC) documented in this encounter Additional Health Concerns Assessment Noted Time A fall risk assessment has been complete d for the patient 04/20/2025 10:24 AM EDT A Body Mass Index follow-up plan has been documented for the patient 04/23/2025 4:10 PM EDT documented as of this encounter Care Teams Toe Former Relationship Specialty Start Date End Date Casa Phillips MD [address] [place] [address] PCP - General 02/22/25 Forrest Nickerson APRN [address] [place] [address] 03/06/23 documented as of this encounter
--- OUTSIDE RECORDS SUMMARY | 2025-04-20 10:30 | XMS_ITS | Encounter Summary ---
Author Organization [facility] Address [address] [place] [address] Care Team Providers Care Physicist Nuclear Name Role Phone Demetrio trevinoann Theresa MANAGER OF HOSPITAL Unavailable [phone] Casa Phillips MD Primary Care Provider [phone] Reason for Visit * Reason Comments Follow-up Encounter Details Date Type Department Care Team (Late st Contact Info) Description 04/20/2025 10:30 AM EDT Office Visit Pav CC Head, Neck & Respiratory [address], [address] [place] [address] Ирина Lopez MD [address] [facility] [address] [place] [address] Malignant neoplasm of upper lobe [...] any time in the past 12 m [facility], were you homeless or living [...] from the original note were not included. [facility] Department of Surgery Section of Thoracic Surgery Outpatient Clinic Note Diagnosis: lung cancer Procedure: 03/29/2025 L thoracotomy HIEN Pathology: [id number] (2.6 cm with visceral pleural invasion) Interval [...] cough, fevers. Still having some pain requiring [place]. ROS: General: no fevers or chills, no [...] TSS clinic on as needed basis. SWATI oDherty 04/20/25 10:43 AM Cosigned by Ирина Lopez [...] Upcoming Encounters Date Type Department Care Team ([facility] Contact Info) Description 07/06/2025 10:40 AM EDT Office Visit Pav CC Head, Neck & Respiratory [address] [facility], 2nd [place] [address] Nikolai Naranjo MD [address] [facility] Lor[address] Avila [facility] [address] [place] [address] documented as of this encounter Visit Diagnoses [...] documented as of this encounter Care Teams Physicist Nuclear Relationship Specialty Start Date End Date Casa Phillips MD [address] [place] [address] PCP - General 02/22/25 Forrest Nickerson APRN [address] [place] [address] 03/06/23 documented as of this encounter
--- NOTE | 2025-05-07 15:55 | XR_ITS ---
FINAL REPORT CLINICAL HISTORY: INTRACTABLE HICCUPS AFTER CHEMO INFUSION COMPARISON: 02/22/2025 FINDINGS: There is a moderate size left hydropneumothorax. There are surgical changes of the left thorax. Left pleural scarring is identified. The right lung is clear. There are presumed surgical changes of left thoracotomy. The cardiac silhouette is unremarkable. IMPRESSION: Moderate size loculated left hydropneumothorax. Reviewed, Interpreted and Dictated by Everett Roberts MD Transcribed by Aline Godoy Authenticated and [facility]
--- OUTSIDE RECORDS SUMMARY | 2025-05-07 15:55 | XMS_ITS | Referral Summary ---
Author Organization [employer] ([place], [place], [place], [place]) Address [address] [place] [address] Care Team Providers Care Lubrication Supervisor Name Role Phone Unavailable Primary Care Provider [...] Date Terrance rded Speak language other than Uzbek at home Not on file 11/01/2023 Want [...] Advance Directives For more information, please contact: [phone] * Full Code (Latest Code Status on File) Date Activated Date Inactivated Comments 05/31/2023 2:57 AM 06/05/2023 3:16 PM -Attempt Res uscitation if person has no pulse and is not breathing. -If no pulse or not breathing attempt CPR/CODE. -Call Rapid Response if patient is in distress.
--- OUTSIDE RECORDS SUMMARY | 2025-05-07 15:55 | XMS_ITS | Clinical Summary ---
Author Organization [employer] ([place], [place], [place], [place]) Address [address] [place] [address] Care Team Providers Care Supervisor Kosher Dietary Service Name Role Phone Unavailable Primary Care Provider [...] Date Terrance rded Speak language other than Chinese at home Not on file 11/01/2023 Want [...] Advance Directives For more information, please contact: [phone] * Full Code (Latest Code Status on File) Date Activated Date Inactivated Comments 05/31/2023 2:57 AM 06/05/2023 3:16 PM -Attempt Res uscitation if person has no pulse and is not breathing. -If no pulse or not breathing attempt CPR/CODE. -Call Rapid Response if patient is in distress.
--- OUTSIDE RECORDS SUMMARY | 2025-05-07 15:55 | XMS_ITS | Encounter Summary ---
Author Organization [facility] Address [address] [place] [address] Care Team Providers Care Cork Insulation Installer Name Role Phone Deep Keen APRN Primary Care Provider [phone] Forrest Nickerson APRN Unavailable [phone] Casa Phillips MD Primary Care Provider + [phone] Encounter Details Date Type Department Care Team (Late Contact Info) Description 05/12/2024 Orders Only External Location [address] [place] [address] Provider, External Social History Tobacco Use Types [...] Upcoming Encounters Date Type Department Care Team ([facility] Contact Info) Description 07/06/2025 10:40 AM EDT Office Visit Pav CC Head, Neck & Respiratory 800 [facility], 2nd [place] [address] Nikolai Naranjo MD [address] Lorin Avila [facility] [address] [place] [address] documented as of this encounter Procedures Procedure [...] documented as of this encounter Care Teams Cork Insulation Installer Relationship Specialty Start Date End Date Deep Keen APRN [address] [place] [address] PCP - General 03/06/23 02/21/25 Casa Phillips MD [address] [place] [address] PCP - General 02/22/25 Forrest Nickerson APRN [address] [place] [address] 03/06/23 documented as of this encounter
--- OUTSIDE RECORDS SUMMARY | 2025-05-07 15:56 | XMS_ITS | Encounter Summary ---
Author Organization [facility] Address [address] [place] [address] Care Team Providers Care Restaurant Delivery Driver Name Role Phone Demetrio Nickersonann Cardenas PERIODONTAL ASSISTANT Unavailable [phone] Casa Phillips MD Primary Care Provider [phone] Encounter Details Date Type Department Care Team (Late st Contact Info) Description 04/06/2025 Telephone Pav CC Head, Neck & Respiratory 800 [facility], 2nd [place] [address] Nikolai Naranjo MD 800 [facility] [address] [place] [address] Social History Tobacco Use Types [...] time in the past [address] [facility], were you homeless or living in [...] - 04/06/2025 12:27 PM EDT Pts daughter leitcia called asking if there were any prescriptions that were sent into the pharmacy from dr Shankar. I spoke with nurse Aishwarya to ask- nurse is sending it in now. documented in this encounter Plan of Treatment Upcoming Encounters Date Type Department Care Team (Late st Contact Info) Description 07/06/2025 10:40 AM EDT Office Visit Pav CC Head, Neck & Respiratory 800 [facility], [address]nd [place] [address] Nikolai Naranjo MD 800 [facility] [address] [place] [address] documented as of this encounter Visit Diagnoses Not on filedocumented in this encounter Additional Health Concerns Assessment Noted Time A fall risk assessment has been complete d for the patient 04/06/2025 10:27 AM EDT A Body Mass Index follow-up plan has been documented for the patient 04/06/2025 12:11 PM EDT documented as of this encounter Care Teams Restaurant Delivery Driver Relationship Specialty Start Date End Date Casa Phillips MD [address] [place] [address] PCP - General 02/22/25 Forrest Nickerson APRN [address] [place] [address] 03/06/23 documented as of this encounter
--- OUTSIDE RECORDS SUMMARY | 2025-05-07 15:56 | XMS_ITS | Encounter Summary ---
Author Organization [facility] Address [address] [place] [address] Care Team Providers Care Staff Radiologist Name Role Phone Forrest Nickerson MANAGER ENVIRONMENTAL Unavailable [phone] Casa Phillips MD Primary Care Provider [phone] Encounter Details Date Type Department Care Team [...] Pav CC Head, Neck & Respiratory 800 [facility], 2nd [place] [address] Nikolai Naranjo MD 800 [facility] [address] Avila [facility] [address] [place] [address] documented as of this encounter Visit Diagnoses Not on filedocumented in this encounter Additional Health Concerns Assessment Noted Time A fall risk assessment has been complete d for the patient 02/23/2025 8:48 AM EDT A Body Mass Index follow-up plan has been documented for the patient 04/04/2025 10:30 AM EDT documented as of this encounter Care Teams Staff Radiologist Relationship Specialty Start Date End Date Casa Phillips MD [address] [place] [address] PCP - General 02/22/25 Forrest Nickerson APRN [address] [place] [address] 03/06/23 documented as of this encounter
--- OUTSIDE RECORDS SUMMARY | 2025-05-07 15:56 | XMS_ITS | Encounter Summary ---
Author Organization [facility] Address [address] [place] [address] Care Team Providers Care Broadcast Maintenance Engineer Name Role Phone Forrest Nickerson INSPECTOR FUEL HOSE Unavailable [phone] Casa Phillips MD Primary Care Provider [phone] Encounter Details Date Type Department Care Team (Late st Contact Info) Description 04/07/2025 Telephone PAV CC Hematology/BMT and Cellular Therapy Program [address] [place] [address] [place] [address] Tyler Montero Social History Tobacco Use Types [...] any time in the past 12 m [facility], were you homeless or living in [...] Pav CC Head, Neck & Respiratory 800 [facility], 2nd [place] [address] Nikolai Naranjo MD [address] Lorin Avila [facility] [address] [place] [address] documented as of this encounter Visit Diagnoses Not on filedocumented in this encounter Additional Health Concerns Assessment Noted Time A fall risk assessment has been complete d for the patient 04/06/2025 10:27 AM EDT A Body Mass Index follow-up plan has been documented for the patient 04/06/2025 12:11 PM EDT documented as of this encounter Care Teams Broadcast Maintenance Engineer Relationship Specialty Start Date End Date Casa Phillips MD [address] [place] [address] PCP - General 02/22/25 Forrest Nickerson APRN [address] [place] [address] 03/06/23 documented as of this encounter
--- OUTSIDE RECORDS SUMMARY | 2025-05-07 15:56 | XMS_ITS | Clinical Summary ---
Author Organization [facility] Address [address] [place] [address] Care Team Providers Care Environmental Research Project Manager Name Role Phone Demetrio trevinoann Cardenas HYDROLOGIC MODELER Unavailable Casa Phillips MD Primary Care Provider [phone] Allergies Active Allergy Reactions Criticality Noted Date [...] Take 1 tablet by mouth daily. Active polyethylene glycol (Miralax) 17 g packet [...] if symptoms continue 1 each 5 Active acetaminophen (Tylenol) 500 MG tablet Take 2 tablets by mouth every 6 hours for 14 days. 112 tablet 5 025 tamsulosin (Flomax) 0.4 MG 24 hr capsule Take 1 capsule by mouth daily. 30 capsule 5 025 senna-docusate (Betty-Colace) 8.6-50 MG tablet Take 2 tablets by mouth 2 times a day for 14 days. 56 tablet 5 025 Additional Information Patient not taking.Reported on 04/06/2025 HYDROcodone-ac etaminophen ([place]) 10-325 MG tablet Take 1 tablet by mouth every 6 hours as needed for severe pain for up to 20 days. 40 tablet 5 025 Discontinu ed(Reorder ) HYDROcodone-ac etaminophen ([place]) 10-325 MG tablet Take 1 tablet by mouth every 6 hours as needed for severe pain for up to 10 days. 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) (Primary Dx) 04/20/2025 10:00 AM EDT - 04/20/2025 11:59 PM EDT Hospital Encounter [facility] Radiology 800 [place] [phone] Non-small cell cancer of left lung (CMS/HCC) Discharge Disposition: Home or Self Care 04/20/2025 Telephone [facility] [address] [phone] Ирина Lopez MD 04/20/2025 Travel 04/19/2025 Telephone [facility] [address] [phone] Manny Lopez MD 04/07/2025 Telephone [facility] Hematology/BMT and Cellular Therapy Program [address] [phone] Tyler Montero 04/07/2025 Telephone [facility] Hematology/BMT and Cellular Therapy Program [address] [phone] Tyler Montero 04/07/2025 Telephone [facility] Hematology/BMT and Cellular Therapy Program [address] [phone] Tyler Montero 04/07/2025 Telephone [facility] 800 [facility], [address] [place] [phone] Aishwarya Dye RN 04/06/2025 11:30 AM EDT Office Visit [facility] [address] [phone] Ирина Lopez MD Non-small cell cancer of left lung (CMS/HCC) (Primary Dx) 04/06/2025 10:40 AM EDT Office Visit [facility] [address] [phone] Nikolai Naranjo MD Non-small cell cancer of left lung (CMS/HCC) (Primary Dx); CKD (chronic kidney disease) stage 2, GFR 60-89 ml/min; Tobacco use disorder; Essential hypertension; Type 2 diabetes mellitus with stage 2 chronic kidney disease, without long-term current use of insulin (CMS/HCC) 04/06/2025 Telephone [facility] [address] [phone] Nikolai Naranjo MD 04/06/2025 Travel 04/04/2025 Travel 04/03/2025 Travel 04/02/2025 Travel 04/01/2025 Travel 03/31/2025 Travel 03/30/2025 Travel 03/29/2025 1:34 PM EDT Anesthesia Event [facility] OPERATING RO[facility] [address] [place] [address] Jimmy Kim MD Bliss, Emily G, MD 03/29/2025 12:10 PM EDT - 03/29/2025 4:50 PM EDT Surgery [facility] [address] [place] [phone] Ирина Lopez MD LEFT VATS LOBECTOMY coverted to open, Left thoracotomy, with medistinal lymph node disection and lypoma [99072 (CPT )] 03/29/2025 9:43 AM EDT - 04/04/2025 12:18 PM EDT Hospital Encounter [facility] Inpatient [address] [place] [address] Ирина Lopez MD Non-small cell cancer of left lung (CMS/HCC) Discharge Disposition: Home or Self Care 03/29/2025 Travel 03/18/2025 Travel 03/11/2025 Telephone [facility] 800 [facility], [address] [place] [phone] Ирина Lopez MD 03/04/2025 Results Follow-Up [facility] 800 [facility], [address] [place] [phone] Nikolai Naranjo MD 03/03/2025 Telephone [facility] 800 [facility], [address] [place] [phone] Kirstei Trejo RN 03/02/2025 Telephone [facility] 800 [facility], [address] [place] [phone] Nikolai Naranjo MD 03/02/2025 Telephone [facility] 800 [facility], [address] [place] [phone] Nikolai Naranjo MD 02/24/2025 12:44 PM EDT - 02/24/2025 11:59 PM EDT Hospital Encounter [facility] S Radiology [address] [place] [address] Non-small cell cancer of left lung (CMS/HCC) Discharge Disposition: Home or Self Care 02/24/2025 Travel 02/23/2025 10:30 AM EDT Office Visit [facility] 800 [facility], [address] [place] [phone] Ирина Lopez MD Non-small cell cancer of left lung (CMS/HCC) 02/23/2025 9:00 AM EDT Office Visit [facility] 800 [facility], [address] [place] [phone] Nikolai Naranjo MD Non-small cell cancer of left lung (CMS/HCC) (Primary Dx); CKD (chronic kidney disease) stage 2, GFR 60-89 ml/min; Tobacco use disorder 02/23/2025 Travel 02/22/2025 3:36 PM EDT - 02/22/2025 11:59 PM EDT Hospital Encounter [facility] Radiology 800 [place] [address] Discharge Disposition: Home or Self Care 02/22/2025 3:36 PM EDT - 02/22/2025 11:59 PM EDT Hospital Encounter [facility] Radiology 800 [place] [address] Non-small cell cancer of left lung (CMS/HCC) Discharge Disposition: Home or Self Care 02/22/2025 2:29 PM EDT - 02/22/2025 3:35 PM EDT Hospital Encounter [facility] Pulmonary Function Testing 800 [place] [address] Non-small cell cancer of left lung (CMS/HCC) Discharge Disposition: Home or Self Care 02/22/2025 Travel 02/10/2025 Telephone [facility] 800 [facility], [address] [place] [phone] Nikolai Naranjo MD 02/05/2025 8:15 AM EDT Office Visit [facility] [address] [phone] Angel Parker MD Non-small cell cancer of left lung (CMS/HCC) (Primary Dx); CKD (chronic kidney disease) stage 2, GFR 60-89 ml/min 02/05/2025 Orders Only [facility] Radiology Virtual Dept. 800 [place] [phone] Lilli Gage DO 02/05/2025 Travel from Last 3 Months Family History [...] any time in the past 12 m [facility], were you homeless or living in a long-term (including now)? No 03/31/2025 Utilities Answer Date Recorded In the past 12 months has e [employer], gas, oil, or water company threatened to [...] 800 [facility], [address] [place] [address] Nikolai Naranjo MD [address] [facility] [address] [place] [address] Health Maintenance Due Date Last Done Comments [facility]-Depression Screening 1945 [facility]-Diabetes: Hemoglobin A1C 1945 [facility]-Hepatitis C Screening 1945 [facility]-Medicare Annual Wellness (AWV) 1945 [facility]-Infant/Child/Adol SDOH Screenings 1945 [facility]-BCH[facility]-13 Vaccine (#1) 1951 Diabetes: Dental Exam 1956 [...] PLASMA Routine 03/29/2025 7:5 8 PM EDT FIBRINOGEN,QUANTITATI VE (CLOTTABLE) STAT 03/29/2025 7:58 PM EDT PROTHROMBIN [...] ANESTHESIA PLACEHOLDER Routine 03/29/2025 1:48 PM EDT NM AN ELECTIVE ENDOTRACHEAL AIRWAY Routine 03/29/2025 1:48 PM EDT NM THORACOSCOPY SURG LOBECTOMY 03/29/2025 1:24 PM EDT Non-small cell cancer of left lung (CMS/HCC) POCT GLUCOSE METER UNSOLICITED RESULTS Routine 03/29/2025 12:48 PM EDT BLOOD GAS PANEL, VENOUS Routine 03/29/2025 12:27 PM EDT TYPE AND SCREEN Routine [...] Non-small cell cancer of left lung (CMS/HCC) from Last 3 Months Results * XR [...] 8:34 AM EDT) Only the most recent of26 resultswithin the time period is included. POCT [...] Comment 04/04/2025 8:36 AM EDT [facility] Radiology Special Procedure Tech ID Sandy Kramer 04/04/2025 8:36 AM EDT [facility] LAB Device ID [id number] 04/04/2025 8:36 AM EDT [facility] LAB Specimen Type POC Capillary 04/04/2025 8:36 AM EDT [facility] LAB Blood Capillary blood specimen / Unknown 04/04/2025 8:34 AM EDT 04/04/2025 8:36 AM EDT us Ирина Lopez MD LAB POINT OF CARE TE ST DOCKED DEVICE UNSOLICITED RESULTS Final Result [facility] [address] [place] [address] * XR Chest 1 View (04/04/2025 5:20 [...] MD on 04/04/2025 10:20 AM Scarlet Gamboa HYDROLOGIC MODELER IMG XR PROCEDURES Final Resul t * (ABNORMAL) CBC W/O Differential (04/04/2025 2:19 AM EDT) Only the most recent of8 resultswithin the time period is included. WBC Count 5.44 3.70 - 10.30 10*3/uL LAB HEMATOLOGY METHOD 04/04/2025 2:33 AM EDT [facility] RBC Count 3.77(L) 4.60 - 6.10 10*6/uL LAB HEMATOLOGY METHOD 04/04/2025 2:33 AM EDT [facility] HGB 10.7(L) 13.7 - 17.5 g/dL LAB HEMATOLOGY METHOD 04/04/2025 2:33 AM EDT [facility] HCT 32.4(L) 40.0 - 51.0 % LAB HEMATOLOGY METHOD 04/04/2025 2:33 AM EDT [facility] Platelet Count 220 155 - 369 10*3/uL LAB HEMATOLOGY METHOD 04/04/2025 2:33 AM EDT [facility] MCV 86 79 - 98 fL LAB HEMATOLOGY METHOD 04/04/2025 2:33 AM EDT [facility] MCH 28.4 26.0 - 32.0 pg LAB HEMATOLOGY METHOD 04/04/2025 2:33 AM EDT [facility] MCHC 33.0 30.7 - 35.5 g/dL LAB HEMATOLOGY METHOD 04/04/2025 2:33 AM EDT [facility] RDW 14.7(H) 11.5 - 14.5 % LAB HEMATOLOGY METHOD 04/04/2025 2:33 AM EDT [facility] MPV 9.1 8.8 - 12.5 fL LAB HEMATOLOGY METHOD 04/04/2025 2:33 AM EDT [facility] nRBC 0.4(H) <=0.0 per 100 WBCs LAB HEMATOLOGY METHOD 04/04/2025 2:33 AM EDT [facility] Blood Venous blood specimen / Unknown Venipuncture / Unknown 04/04/2025 2:19 AM EDT 04/04/2025 2:24 AM EDT Ирина Lopez MD LAB BLOOD ORDERABLES Final R esult [facility] [address] [place] [address] * (ABNORMAL) Magnesium, Plasma (04/04/2025 2:19 AM EDT) Only the most recent of8 resultswithin the time period is included. Magnesium, Plasma 1.8(L) 1.9 - 2.4 mg/dL 04/04/2025 2:53 AM EDT [facility] Blood Venous blood specimen / Unknown Venipuncture / Unknown 04/04/2025 2:19 AM EDT 04/04/2025 2:24 AM EDT Ирина Lopez MD LAB BLOOD ORDERABLES Final R esult [facility] [address] [place] [address] * (ABNORMAL) Renal Function Panel, Plasma (04/04/2025 2:19 AM EDT) Only the most recent of8 resultswithin the time period is included. Glucose, Plasma 166(H) 74 - 99 mg/dL 04/04/2025 2:53 AM EDT [facility] BUN, Plasma 18 8 - 23 mg/dL 04/04/2025 2:53 AM EDT [facility] Creatinine, Plasma 1.31(H) 0.70 - 1.20 mg/dL 04/04/2025 2:53 AM EDT [facility] BUN/Creatinine Ratio 14 04/04/2025 2:53 AM EDT [facility] Sodium, Plasma 136 136 - 145 mmol/L 04/04/2025 2:53 AM EDT [facility] Potassium, Plasma 4.3 3.6 - 4.9 mmol/L 04/04/2025 2:53 AM EDT [facility] Chloride, Plasma 103 97 - 107 mmol/L 04/04/2025 2:53 AM EDT [facility] CO2, Plasma 22 22 - 29 mmol/L 04/04/2025 2:53 AM EDT [facility] Anion Gap 11 6 - 16 mmol/L 04/04/2025 2:53 AM EDT [facility] Total Calcium, Plasma 8.2(L) 8.9 - 10.2 mg/dL 04/04/2025 2:53 AM EDT [facility] Phosphorus, Plasma 3.1 2.5 - 4.5 mg/dL 04/04/2025 2:53 AM EDT [facility] Albumin, Plasma 3.0(L) 3.5 - 5.2 g/dL 04/04/2025 2:53 AM EDT [facility] eGFRcr 55.7 mL/min/1.7 3m*2 04/04/2025 2:53 AM EDT [facility] Comment:Reported eGFRcr in m L/min/1.73m2 is based the CKD-EPI 2020 equation that does not use a race coefficient. Blood Venous blood specimen / Unknown Venipuncture / Unknown 04/04/2025 2:19 AM EDT 04/04/2025 2:24 AM EDT Ирина Lopez MD LAB BLOOD ORDERABLES Final R esult [facility] [address] [place] [address] * Transfuse RBC (04/02/2025 2:53 PM EDT) Only the most recent of3 resultswithin the time period is included. Scarlet Gamboa HYDROLOGIC MODELER BLOOD TRANSFUSION ORDERABLES Final Result * PERIPHERAL [...] All pertinent images were uploaded to PACS. Ирина Lopez MD IV THERAPY ORDERABLES Final Result * Prepare Leukocyte Reduced RBC: 2 Units (04/02/2025 7:58 AM EDT) Only the most recent of2 resultswithin the time period is included. [facility] Signature Product Code [id number] CH BLOO D BANK Dispense Status Transfused BLOOD BANK Blood Expiration Date [id number] BLOOD BANK Unit Number [id number] CH B LOOD BANK Product Blood Type 6200 BLOOD BANK Blood Type A+ BLOOD BANK Crossmatch Compatible BLOOD BANK Product Code [id number] CH BLOO D BANK Dispense Status Transfused BLOOD BANK Blood Expiration Date [id number] BLOOD BANK Unit Number [id number] CH B LOOD BANK Product Blood Type 6200 BLOOD BANK Blood Type A+ BLOOD BANK Crossmatch Compatible BLOOD BANK Other Scarlet Gamboa APRN BLOOD BANK PRODUCT ORDERABLES Final Result Performing Organization Address [facility] de Phone Number BLOOD BANK [address] * Type and Screen (04/02/2025 6:36 [...] ORDERABL ES Final Result Performing Organization Address [facility] de Phone Number BLOOD BANK [address] * ECG Adult (03/30/2025 8:37 AM EDT) EKG DIAGNOSIS CLASS Abnormal MUSE ECG Ventricular Rate 81 BPM MUSE ECG Atrial Rate 81 BPM MUSE ECG NM Interval 170 ms MUSE ECG QRSD Interval 104 ms MUSE ECG QT Interval 416 ms MUSE ECG QTC Interval 483 ms MUSE ECG P Healy 39 degrees MUSE ECG R [place]aly -51 degrees MUSE ECG T Wave Healy -15 degrees MUSE ECG Diagnosis Poor data [...] - 1.20 mg/dL 03/29/2025 8:39 PM EDT [facility] eGFRcr 70.2 mL/min/1.7 3m*2 03/29/2025 8:39 PM EDT [facility] Comment:Reported eGFRcr in m L/min/1.73m2 is based the CKD-EPI 2020 equation that does not use a race coefficient. Blood Arterial blood specimen / Unknown Arterial Puncture / Unknown 03/29/2025 7:58 PM EDT 03/29/2025 8:05 PM EDT Ирина Lopez MD LAB BLOOD ORDERABLES Final R esult Performing Organization Address City/[facility]/ZIP Co de Phone Number [facility] [address] [place] [address] * Protime-INR (03/29/2025 7:58 PM EDT) Only the most recent of2 resultswithin the time period is included. Prothrombin Time 13.8 12.0 - 14.3 sec LAB COAGULATION METHOD 03/29/2025 8:38 PM EDT [facility] INR 1.0 0.9 - 1.1 LAB COAGULATION METHOD 03/29/2025 8:38 PM EDT [facility] Blood Arterial blood specimen / Unknown Arterial Puncture / Unknown 03/29/2025 7:58 PM EDT 03/29/2025 8:05 PM EDT Narrative [facility] - 03/29/2025 8:38 PM EDT [...] ORDERABLES Final R esult Performing Organization Address City/[facility] Co de Phone Number [facility] [address] [place] [address] * Fibrinogen (03/29/2025 7:58 PM EDT) Only the most recent of2 resultswithin the time period is included. Pathologist [facility] Fibrinogen, Quantitative (Clottable) 294 208 - 459 mg/dL LAB COAGULATION METHOD 03/29/2025 8:38 PM EDT [facility] Blood Arterial blood specimen / Unknown Arterial Puncture / Unknown 03/29/2025 7:58 PM EDT 03/29/2025 8:05 PM EDT Kiana Gusman CRNA LAB BLOOD ORDERABLES Final R esult Performing Organization Address City/[facility] Co de Phone Number [facility] [address] [place] [address] * (ABNORMAL) CBC and differential (03/29/2025 7:58 PM EDT) Pathologist [facility] WBC Count 8.18 3.70 - 10.30 10*3/uL LAB HEMATOLOGY METHOD 03/29/2025 8:29 PM EDT [facility] RBC Count 3.11(L) 4.60 - 6.10 10*6/uL LAB HEMATOLOGY METHOD 03/29/2025 8:29 PM EDT [facility] HGB 9.2(L) 13.7 - 17.5 g/dL LAB HEMATOLOGY METHOD 03/29/2025 8:29 PM EDT [facility] HCT 27.7(L) 40.0 - 51.0 % LAB HEMATOLOGY METHOD 03/29/2025 8:29 PM EDT [facility] Platelet Count 174 155 - 369 10*3/uL LAB HEMATOLOGY METHOD 03/29/2025 8:29 PM EDT [facility] MCV 89 79 - 98 fL LAB HEMATOLOGY METHOD 03/29/2025 8:29 PM EDT [facility] MCH 29.6 26.0 - 32.0 pg LAB HEMATOLOGY METHOD 03/29/2025 8:29 PM EDT [facility] MCHC 33.2 30.7 - 35.5 g/dL LAB HEMATOLOGY METHOD 03/29/2025 8:29 PM EDT [facility] RDW 12.6 11.5 - 14.5 % LAB HEMATOLOGY METHOD 03/29/2025 8:29 PM EDT [facility] MPV 9.3 8.8 - 12.5 fL LAB HEMATOLOGY METHOD 03/29/2025 8:29 PM EDT [facility] nRBC 0.0 <=0.0 per 100 WBCs LAB HEMATOLOGY METHOD 03/29/2025 8:29 PM EDT [facility] Differential Type Automated LAB HEMATOLOGY METHOD 03/29/2025 8:29 PM EDT [facility] Neutrophils % 86 % LAB HEMATOLOGY METHOD 03/29/2025 8:29 PM EDT [facility] Lymphocytes % 9 % LAB HEMATOLOGY METHOD 03/29/2025 8:29 PM EDT [facility] Monocytes % 5 % LAB HEMATOLOGY METHOD 03/29/2025 8:29 PM EDT [facility] Eosinophils % 0 % LAB HEMATOLOGY METHOD 03/29/2025 8:29 PM EDT [facility] Basophils % 0 % LAB HEMATOLOGY METHOD 03/29/2025 8:29 PM EDT [facility] Immature Granulocytes % 0 % LAB HEMATOLOGY METHOD 03/29/2025 8:29 PM EDT [facility] Neutrophils Absolute 7.00(H) 1.60 - 6.10 10*3/uL LAB HEMATOLOGY METHOD 03/29/2025 8:29 PM EDT [facility] Lymphocytes Absolute 0.71(L) 1.20 - 3.90 10*3/uL LAB HEMATOLOGY METHOD 03/29/2025 8:29 PM EDT [facility] Monocytes Absolute 0.40 0.30 - 0.90 10*3/uL LAB HEMATOLOGY METHOD 03/29/2025 8:29 PM EDT [facility] Eosinophils Absolute 0.02 0.00 - 0.50 10*3/uL LAB HEMATOLOGY METHOD 03/29/2025 8:29 PM EDT [facility] Basophils Absolute 0.02 0.00 - 0.10 10*3/uL LAB HEMATOLOGY METHOD 03/29/2025 8:29 PM EDT [facility] Immature Granulocytes Absolute 0.03 0.00 - 0.06 10*3/uL LAB HEMATOLOGY METHOD 03/29/2025 8:29 PM EDT [facility] Blood Arterial blood specimen / Unknown Arterial Puncture / Unknown 03/29/2025 7:58 PM EDT 03/29/2025 8:04 PM EDT Narrative [facility] - 03/29/2025 8:29 PM EDT Therapeutic decision making should be based on absolute values, rather than percentages. us Kiana Gusman [facility] LAB BLOOD ORDERABLES Final R esult [facility] [address] [place] [address] * Surgical Pathology Exam (03/29/2025 5:10 PM EDT) Case Report Surgical Pathology Case: [id number] Authorizing Provider: Ирина Lopez MD Collected: 03/29/2025 1716 Ordering Location: [facility] A OPERATING ROOM Received: 03/30/2025 0759 Pathologist: [...] Other (specify site), lipoma 2:45 PM EDT [facility] Final Diagnosis A. LUNG, BRONCHIAL [...] TISSUE, EXCISION: - LIPOMA. 2:45 PM EDT [facility] at 1445 EDT Synoptic Checklist LUNG LUNG [...] report. pT Category: pT2a pN Category: pN0 2:45 PM EDT [facility] Clinical Information Non-small cell cancer of left lung 5 2:45 PM EDT [facility] Intraoperative Consultation A. BRONCHIAL MARGIN FSA: No tumor seen. Todd Gibbs MD. 03/29/2025 @ 1745. 2:45 PM EDT [facility] Special and Immunohistochemical Stains Special Stain: [id number] Elastic Trichrome: Demonstrates visceral pleural invasion F8-2 Elastic Trichrome: Demonstrates visceral pleural invasion All controls show appropriate reactivity. All immunohistochemis try, in situ hybridization, and histochemical tests were developed by and are performed at the [facility], [address] [place] [address]. All tests reported here, except those addressing [...] on decalcified specimens. 5 2:45 PM EDT [facility] Gross Description A. BRONCHIAL MARGIN [...] 0.3-0.6 cm in greatest dimension are identified. Hydroelectric [employer] Operator sections are submitted as follows: F1: Bronchial [...] areas of hemorrhage or necrosis are identified. Hydroelectric Station Operator sections are submitted in cassettes G1-G3. Cold Time: 13h 05m SWATI Wong (ASCP) 2:45 PM EDT [facility] Note: A resident was involved in the service. I attest I examined the relevant preparations for the specimens and confirmed the diagnosis or interpretation. 2:45 PM EDT [facility] Tissue Structure of lymph node [...] MD LAB PATHOLOGY ORDERABLES Fin al Result [facility] [address] [place] [address] * (ABNORMAL) Blood gas panel, arterial (03/29/2025 4:05 PM EDT) Only the most recent of2 resultswithin the time period is included. pH, Arterial 7.38 7.31 - 7.42 LAB HEMATOLOGY METHOD 03/29/2025 4:13 PM EDT [facility] pCO2, Arterial 45 32 - 45 mmHg LAB HEMATOLOGY METHOD 03/29/2025 4:13 PM EDT [facility] pO2, Arterial 216 >70 mmHg LAB HEMATOLOGY METHOD 03/29/2025 4:13 PM EDT [facility] SO2, Measured, Arterial 100(H) 94 - 98 % LAB HEMATOLOGY METHOD 03/29/2025 4:13 PM EDT [facility] Base Excess, Arterial 1.2 -2.0 - 3.0 mmol/L LAB HEMATOLOGY METHOD 03/29/2025 4:13 PM EDT [facility] Bicarbonate, Calculated, Arterial 27(H) 22 - 26 mmol/L LAB HEMATOLOGY METHOD 03/29/2025 4:13 PM EDT [facility] Hematocrit, Whole Blood 31.6(L) 40.0 - 51.0 % LAB HEMATOLOGY METHOD 03/29/2025 4:13 PM EDT [facility] Sodium, Whole Blood 138 136 - 145 mmol/L LAB HEMATOLOGY METHOD 03/29/2025 4:13 PM EDT [facility] Potassium, Whole Blood 3.8 3.6 - 4.9 mmol/L LAB HEMATOLOGY METHOD 03/29/2025 4:13 PM EDT [facility] Chloride, Whole Blood 103 97 - 107 mmol/L LAB HEMATOLOGY METHOD 03/29/2025 4:13 PM EDT [facility] Glucose, Whole Blood 123(H) 74 - 99 mg/dL LAB HEMATOLOGY METHOD 03/29/2025 4:13 PM EDT [facility] Ionized Calcium, Whole Blood 4.4(L) 4.6 - 5.1 mg/dL LAB HEMATOLOGY METHOD 03/29/2025 4:13 PM EDT [facility] Lactate, Arterial, Whole Blood 0.8 0.5 - 1.6 mmol/L LAB HEMATOLOGY METHOD 03/29/2025 4:13 PM EDT [facility] Blood Arterial blood specimen / Unknown 03/29/2025 4:05 PM EDT 03/29/2025 4:11 PM EDT Comment:Pre-op diagnosis: Non-small cell cancer of left lung Ирина Lopez MD LAB BLOOD ORDERABLES Final R esult Performing Organization Address [facility] Co de Phone Number [facility] [address] [place] [address] * APTT (03/29/2025 4:04 PM EDT) aPTT 28 25 - 35 sec LAB COAGULATION METHOD 03/29/2025 4:39 PM EDT [facility] Blood Arterial blood specimen / Unknown 03/29/2025 4:04 PM EDT 03/29/2025 4:18 PM EDT Comment:Pre-op diagnosis: Non-small cell cancer of left lung Ирина Lopez MD LAB BLOOD ORDERABLES Final R esult Performing Organization Address City/[facility]/ZIP Co de Phone Number [facility] [address] [address] * Peripheral IV (03/29/2025 2:00 PM EDT) Kiana Dukes CRNA - 03/29/2025 2:00 PM EDT Kiana Gusman CRNA 03/29/2025 2:28 PM Peripheral IV Date/Time: 03/29/2025 2:00 PM Placement Needle size: 18 G Location: hand Site prep: alcohol Technique: anatomical landmarks Attempts: 1 us Robert Santos MD ANESTHESIA ORDERABLES Final Res ult * PB ANESTHESIA NON-TIMED PROCEDURE PLACEHOLDER (03/29/2025 1:57 PM EDT) Robert Bolom MD - 03/29/2025 1:57 PM EDT Robert [...] procedure well with no complications. Staffing Performed: ARC CUTTER Robert Santos MD ANESTHESIA ORDERABLES Edited Re sult - Final * NM AN ELECTIVE ENDOTRACHEAL AIRWAY, PB ANESTHESIA PLACEHOLDER (03/29/2025 1:48 PM EDT) Robert Bloom MD - 03/29/2025 1:48 PM EDT Robert Santos MD 03/29/2025 3:02 PM Airway Date/Time: 03/29/2025 1:48 PM Reason: elective Airway not difficult General Information and Staff Patient location during procedure: OR ARC CUTTER: Kiana Gusman CRNA Performed: ARC CUTTER Patient Condition Indications for airway management: anesthesia [...] LAB HEMATOLOGY METHOD 03/29/2025 12:51 PM EDT [facility] pCO2, Venous 49 40 - 55 mmHg LAB HEMATOLOGY METHOD 03/29/2025 12:51 PM EDT [facility] pO2, Venous 54(H) 25 - 40 mmHg LAB HEMATOLOGY METHOD 03/29/2025 12:51 PM EDT [facility] SO2, Measured, Venous 87(H) 65 - 80 % LAB HEMATOLOGY METHOD 03/29/2025 12:51 PM EDT [facility] Base Excess, Venous 1.7 -2.0 - 3.0 mmol/L LAB HEMATOLOGY METHOD 03/29/2025 12:51 PM EDT [facility] Bicarbonate, Calculated, Venous 28(H) 22 - 26 mmol/L LAB HEMATOLOGY METHOD 03/29/2025 12:51 PM EDT [facility] Hematocrit, Whole Blood 39.2(L) 40.0 - 51.0 % LAB HEMATOLOGY METHOD 03/29/2025 12:51 PM EDT [facility] Sodium, Whole Blood 140 136 - 145 mmol/L LAB HEMATOLOGY METHOD 03/29/2025 12:51 PM EDT [facility] Potassium, Whole Blood 4.0 3.6 - 4.9 mmol/L LAB HEMATOLOGY METHOD 03/29/2025 12:51 PM EDT [facility] Chloride, Whole Blood 103 97 - 107 mmol/L LAB HEMATOLOGY METHOD 03/29/2025 12:51 PM EDT [facility] Glucose, Whole Blood 97 74 - 99 mg/dL LAB HEMATOLOGY METHOD 03/29/2025 12:51 PM EDT [facility] Lactate, Venous, Whole Blood 1.6 0.5 - 2.2 mmol/L LAB HEMATOLOGY METHOD 03/29/2025 12:51 PM EDT [facility] Ionized Calcium, Whole Blood 4.5(L) 4.6 - 5.1 mg/dL LAB HEMATOLOGY METHOD 03/29/2025 12:51 PM EDT [facility] Blood Venous blood specimen / Unknown Venipuncture / Unknown 03/29/2025 12:27 PM EDT 03/29/2025 12:49 PM EDT us Robert Santos MD LAB BLOOD ORDERABLES Final Resu lt [facility] [address] [place] [address] * MR Head w and wo IV [...] applicable. Positioning: Arms raised. PET/CT scanner: Siemens Green Charge Networksgraph 40 mCT. PET/CT acquisition: Ctjhqk-sw-kdd-thighs. Standardized uptake value (SUV): Corrected for body weight only. CT: Low-dose, vzx-laeolc-nvga, without intravenous contrast. TOTAL DLP (Dose Length [...] 1.8 (image 161 series 4 and 3). Yln-MLU-ugrd subpleural 4 mm tiny perifissural nodule is [...] applicable. Positioning: Arms raised. PET/CT scanner: [employer] 40 mCT. PET/CT acquisition: Faumzq-ei-qww-thighs. Standardized uptake value (SUV): Corrected for body weight only. CT: Low-dose, xaj-sgjiiy-tjcn, without intravenous contrast. TOTAL DLP (Dose Length [...] SUV 1.8 (image 161series 4 and 3). Viu-PRF-hzyu subpleural 4 mm tiny perifissural nodule is [...] on 02/23/2025 11:30 AM Angel Parker MD [facility] Final Result * (ABNORMAL) Pulmonary function testing (02/22/2025 3:10 PM EDT) XYJ1HHS 3.10 2.66 - 4.70 L VYAIRE PFT FVC PRED 3.68 VYAIRE PFT FVC LLN 2.66 VYAIRE PFT FVCPREZSCORE -0.93 VYAIRE PFT FVCPRE%PRED 84 % % [facility]RE PFT [facility] (2011[facility] VYAIRE PFT FVC Z-SCORE -0.93 VYAIRE PFT FEV1 PRE 2.19 1.91 - 3.51 L VYAIRE PFT FEV1 PRED 2.74 VYAIRE PFT FEV1 LLN 1.91 VYAIRE PFT YQN3NBJQYZEAK -1.12 VYAIRE PFT FEV1_Pre%Pred 80 % % VYAIRE PFT FEV1 PREDAUTH [facility] GLI (2011) VYAIRE PFT FEV1 Z-SCORE -1.12 VYAIRE PFT FEV1/FVC PRE 70.45 60.56 - 88.37 % VYAIRE PFT NDT1VNJFBJC 75 VYAIRE PFT EBK5AZPGXF 61 VYAIRE PFT BLO9AAFAWHDOKAFJ -0.55 VYAIRE PFT XYF0BSHVKV%PRED 94 % % VYAIRE PFT XRS6YEDIQDCD _[facility] (2011) VYAIRE PFT BTQ6PUTCMDTID -1 VYAIRE PFT KDD55-94% PRE 1.22 0.77 - 3.77 L/s VYAIRE PFT VFJ23-43%_Pred 1.98 VYAIRE PFT RLR4290%LLN 0.77 VYAIRE PFT VPE9258%PREZSCORE -0.95 VYAIRE PFT ARV9329%PRE%PRED 61 % % VYAIRE PFT GDG2870%PREDAUTCROWNPOINT [facility]ALTH[facility]ARE F[facility] (2011) VYAIRE PFT PEF PRE 5.01 4.85 - 9.22 L/s VYAIRE PFT PEF PRED 7.04 VYAIRE PFT PEF LLN 4.85 VYAIRE PFT PEFPREZSCORE -1.52 VYAIRE PFT PEFPRE%PRED 71 % % VYAIRE PFT PEF PREDAUT NHANES III (1998) VYAIRE PFT DUAFHYYXPPQLUCUP6WLV 15.18(A) 16.80 - 30.86 ml/(min* mmHg) VYAIRE PFT DLCOSINGLEBREATH PRED 23.19 VYAIRE PFT DLCOSINGLEBREATH LLN 16.80 VYAIRE PFT DLCOSINGLEBREATH Z-SCORE -2.12 VYAIRE PFT DLCOSINGLEBREATH % PRED 65.4 % VYAIRE PFT DLCOSINGLEBREATH PREDJordan Valley Medical CenterO GLI (2019) VYAIRE PFT DLCOSINGLEBREATH Z-SCORE -2.12 02/22/2025 3:48 PM EDT VYAIRE PFT FOMHPTNJBGKBFUCOS9RB E 15.18(A) 16.80 - 30.86 ml/(min* mmHg) VYAIRE PFT DLCOCSINGLEBREATH PRED 23.19 VYAIRE PFT DLCOCSINGLEBREATH LLN 16.80 VYAIRE PFT DLCOCSINGLEBREATH Z-SCORE -2.12 VYAIRE PFT DLCOCSINGLEBREATH % PRED 65.4 % VYAIRE PFT DLCOCSINGLEBREATH PREDAUTH St[facility] TLCO GLI (2019) VYAIRE PFT IGDFUJ1ECF 3.06 2.88 - 5.12 ml/(min* mmHg*L) VYAIRE PFT DLCOVAPRED 3.95 VYAIRE PFT DLCOVALLN 2.88 VYAIRE PFT DLCOVAZSCORE -1.37 VYAIRE PFT DLCOVA%PRED 77.4 % VYAIRE PFT DLCOVAPREDAUTH Stanojevic TLCO GLI (2019) VYAIRE PFT DLCOVAZSCORE -1.37 02/22/2025 3:48 PM EDT VYAIRE PFT MPDSGQKVV5AKH 3.06 2.88 - 5.12 ml/(min* mmHg*L) VYAIRE PFT DLCOC SB/VA PRED 3.95 VYAIRE PFT DLCOC SB/VA LLN 2.88 VYAIRE PFT DLCOC SB/VA Z-SCORE -1.37 VYAIRE PFT DLCOC SB/VA % PRED 77.4 % VYAIRE PFT DLCOC SB/VA PREDAUTH Stanojevic TLCO GLI (2019) VYAIRE PFT DLCOC SB/VA Z-SCORE -1.37 02/22 3:48 PM EDT VYAIRE PFT VKGPIQCDXRDJYM4IJE 4.97 4.73 - 7.15 L VYAIRE PFT VASINGLEBREATH PRED 5.90 VYAIRE PFT VASINGLEBREATH LLN 4.73 VYAIRE PFT VASINGLEBREATH Z-SCORE -1.31 VYAIRE PFT VASINGLEBREATH % PRED 84.2 % VYAIRE PFT VASINGLEBREATH PREDAUTH Stanojevic TLCO GLI (2019) VYAIRE PFT VASINGLEBREATH Z-SCORE -1.31 02/22/2025 3:48 PM EDT VYAIRE PFT ZHEEDKDQYDJYNGF5KQV 3.12 2.66 - 4.70 L VYAIRE PFT IVCSINGLEBREATH PRED 3.68 VYAIRE PFT IVCSINGLEBREATH LLN 2.66 VYAIRE PFT IVCSINGLEBREATH Z-SCORE -0.89 VYAIRE PFT IVCSINGLEBREATH % PRED 85.0 % VYAIRE PFT IVCSINGLEBREATH PREDELIZABETHTOWN [facility] (2011) VYAIRE PFT CLEMENTINE% VCMAX PRE 100.00 % VYAIRE PFT TLC SB PRE 5.11(A) 5.16 - 8.10 L VYAIRE PFT TLCSINGLEBREATH PRED 6.62 VYAIRE PFT TLCSINGLEBREATH LLN 5.16 VYAIRE PFT TLCSINGLEBREATH Z-SCORE -1.70 VYAIRE PFT TLCSINGLEBREATH % PRED 77.3 % VYAIRE PFT TLCSINGLEBREATH PREDHebrew Rehabilitation Center Lung volumes GLI (2019)__ VYAIRE PFT HB PRE 14.60 g(Hb)/dL VYAIRE PFT DDB6IBY 6.30 5.16 - 8.10 L VYAIRE PFT TLCPRED 6.62 VYAIRE PFT TLCLLN 5.16 VYAIRE PFT TLCULN 8.10 VYAIRE PFT TLCZSCORE -0.36 VYAIRE PFT TLC%PRED 95.1 % VYAIRE PFT TLCPREDHebrew Rehabilitation Center Lung volumes GLI (2019)__ VYAIRE PFT VC0PRE 3.29 2.66 - 4.70 L VYAIRE PFT VCPRED 3.68 VYAIRE PFT VCLLN 2.66 VYAIRE PFT VCULN 4.70 VYAIRE PFT VCZSCORE -0.63 VYAIRE PFT VC%PRED 89.4 % VYAIRE PFT VCPREDAUTCROWNPOINT HEALTH[facility]ARE [facility] GLI (2011) VYAIRE PFT IC0PRE 1.78(A) 1.89 - 3.54 L VYAIRE PFT ICPRED 2.73 VYAIRE PFT ICLLN 1.89 VYAIRE PFT ICULN 3.54 VYAIRE PFT IC Z-SCORE -1.86 VYAIRE PFT IC%PRED 65.0 % VYAIRE PFT ICPREDAUTChillicothe Va [facility] Center Lung volumes GLI (2019)__ VYAIRE PFT KEBSQJIF0RKY 4.52 2.59 - 5.10 L VYAIRE PFT FRCPLETH PRED 3.70 VYAIRE PFT FRCPLETH LLN 2.59 VYAIRE PFT FRCPLETH ULN 5.10 VYAIRE PFT FRCPLETH Z-SCORE 1.01 VYAIRE PFT FRCPLETH % PRED 122.0 % VYAIRE PFT FRCPLETH PREDAUTH [facility] Lung volumes GLI (2019)__ VYAIRE PFT GXL8CHZ 1.51 0.31 - 2.34 L VYAIRE PFT [...] [facility] Lung volumes GLI (2019)__ VYAIRE PFT RV%BNZ8ISP 47.82 26.68 - 53.53 % VYAIRE PFT RV%TLCPRED 40 VYAIRE PFT RV%TLCLLN 27 VYAIRE PFT RV%TLCULN 54 VYAIRE PFT RV%TLCZSCORE 0.97 VYAIRE PFT RV%TLC%PRED 120.2 % VYAIRE PFT RV%TLCPREDAUTH [facility] Lung volumes GLI (2019)__ VYAIRE PFT Anatomical Region Laterality Modality PFT 02/22/2025 2:39 PM EDT Narrative 02/23/2025 12:58 PM EDT Pulmonary Function Testing Report Cloe Feliz Jr. 79 y.o. underwent pulmonary function testing today at the [facility]. The patient underwent spirometry, lung volumes [...] Angel Parker MD PFT ORDERABLES Final Result from Last 3 Months Insurance ANTHEM MEDICARE ANTHEM MEDICARE Advance Directives * Full Code (Latest Code Status on File) Date Activated Date Inactivated Comments 03/29/2025 7:30 PM 04/04/2025 2:23 PM Question Answer Comments I have reviewed the capacity from the link above and, if needed, have updated to appropriate status: No Care Teams Environmental Research Project Manager Relationship Specialty Start Date End Date Casa Phillips MD [address] [place] [address] PCP - General 02/22/25 Forrest Nickerson APRN [address] [place] [address] 03/06/23
--- OUTSIDE RECORDS SUMMARY | 2025-05-07 15:56 | XMS_ITS | Encounter Summary ---
Author Organization [facility] Address [address] [place] [address] Care Team Providers Care Hotshot Superintendent Name Role Phone Forrest Nickerson SONOGRAPHY TECHNOLOGIST Unavailable [phone] Casa Phillips MD Primary Care Provider [phone] Encounter Details Date Type Department Care Team (Late st Contact Info) Description 04/07/2025 Telephone PAV CC Hematology/BMT and Cellular Therapy Program [address] [place] [address] [place] [address] Tyler Montero Social History Tobacco Use Types [...] any time in the past 12 m [facility], were you homeless or living in a custodial (including now)? No 03/31/2025 Utilities Answer Date [...] & Respiratory [address] [place] [address] Nikolai Naranjo MD [address] [place] [address] documented as of this encounter Visit Diagnoses Not on filedocumented in this encounter Additional Health Concerns Assessment Noted Time A fall risk assessment has been complete d for the patient 04/06/2025 10:27 AM EDT A Body Mass Index follow-up plan has been documented for the patient 04/06/2025 12:11 PM EDT documented as of this encounter Care Teams Hotshot Superintendent Relationship Specialty Start Date End Date Casa Phillips MD [address] [place] [address] PCP - General 02/22/25 Forrest Nickerson APRN [address] [place] [address] 03/06/23 documented as of this encounter
--- OUTSIDE RECORDS SUMMARY | 2025-05-07 15:56 | XMS_ITS ---
Author Organization [facility] Address [address] [place] [address] Care Team Providers Care Lawyer Probate Name Role Phone Zari Nickersonhéctor Theresa DIAL BRUSHER Unavailable Casa Phillips MD Primary Care Provider [phone] Active Problems Problem Noted Date Diagnosed Date [...]
--- OUTSIDE RECORDS SUMMARY | 2025-05-07 15:56 | XMS_ITS | Encounter Summary ---
Author Organization [facility] Address [address] [place] [address] Care Team Providers Care Craft Worker Name Role Phone Forrest Nickerson ENGINEER EXHAUSTER Unavailable [phone] Casa Phillips MD Primary Care Provider [phone] Encounter Details Date Type Department Care Team (Late st Contact Info) Description 04/07/2025 Telephone PAV CC Hematology/BMT and Cellular Therapy Program [address] [place] [address] [place] [address] Tyler Montero Social History Tobacco Use Types [...] time in the past 12 m [facility], were you homeless or living in [...] [address] [facility], [address]nd [place] [address] Nikolai Naranjo MD [address] [facility] [address] [place] [address] documented as of this encounter Visit Diagnoses Not on filedocumented in this encounter Additional Health Concerns Assessment Noted Time A fall risk assessment has been complete d for the patient 04/06/2025 10:27 AM EDT A Body Mass Index follow-up plan has been documented for the patient 04/06/2025 12:11 PM EDT documented as of this encounter Care Teams Craft Worker Relationship Specialty Start Date End Date Casa Phillips MD [address] [place] [address] PCP - General 02/22/25 Forrest Nickerson APRN [address] [place] [address] 03/06/23 documented as of this encounter
--- OUTSIDE RECORDS SUMMARY | 2025-05-07 15:56 | XMS_ITS | Encounter Summary ---
Author Organization [facility] Address [address] [place] [address] Care Team Providers Care Printing Machine Mechanic Name Role Phone belindaForrest ANIMAL SCIENCE PROFESSOR Unavailable [phone] Casa Phillips MD Primary Care Provider [phone] Encounter Details Date Type Department Care Team (Late st Contact Info) Description 04/07/2025 Telephone Pav CC Head, Neck & Respiratory [address] [place] [address] Aishwarya Dye, RN [facility] Social History Tobacco [...] any time in the past 12 m [facility], were you homeless or living in a [...] Referral sent to Dr Dagoberto Rosales with [facility]. documented in this encounter Plan of Treatment Upcoming Encounters Date Type Department Care Team ([facility] st Contact Info) Description 07/06/2025 10:40 AM EDT Office Visit Pav CC Head, Neck & Respiratory [address] [place] [address] Nikolai Naranjo MD [address] [facility] [address] [facility] [address] [place] [address] documented as of this encounter Visit Diagnoses Not on filedocumented in this encounter Additional Health Concerns Assessment Noted Time A fall risk assessment has been complete d for the patient 04/06/2025 10:27 AM EDT A Body Mass Index follow-up plan has been documented for the patient 04/06/2025 12:11 PM EDT documented as of this encounter Care Teams Printing Machine Mechanic Relationship Specialty Start Date End Date Casa Phillips MD [address] [place] [address] PCP - General 02/22/25 Forrest Nickerson APRN [address] [place] [address] 03/06/23 documented as of this encounter
--- OUTSIDE RECORDS SUMMARY | 2025-05-07 15:56 | XMS_ITS | Encounter Summary ---
Author Organization [facility] Address [address] [place] [address] Care Team Providers Care Ticket Taker Name Role Phone Forrest Nickerson ATTENDANT CHILD ACTIVITY Unavailable [phone] Casa Phillips MD Primary Care Provider [phone] Encounter Details Date Type Department Care Team [...] Upcoming Encounters Date Type Department Care Team ([facility] Contact Info) Description 07/06/2025 10:40 AM EDT Office Visit Pav CC Head, Neck & Respiratory [address] [facility], [address] [place] [address] Nikolai Naranjo MD [address] [facility] [facility] [address] [place] [address] documented as of this encounter Visit Diagnoses Not on filedocumented in this encounter Additional Health Concerns Assessment Noted Time A fall risk assessment has been complete d for the patient 04/06/2025 10:27 AM EDT A Body Mass Index follow-up plan has been documented for the patient 04/06/2025 12:11 PM EDT documented as of this encounter Care Teams Ticket Taker Relationship Specialty Start Date End Date Casa Phillips MD [address] [place] [address] PCP - General 02/22/25 Forrest Nickerson APRN [address] [place] [address] 03/06/23 documented as of this encounter
--- OUTSIDE RECORDS SUMMARY | 2025-05-07 15:57 | XMS_ITS | Encounter Summary ---
Author Organization [facility] Address [address] [place] [address] Care Team Providers Care Acid Tender Name Role Phone Forrest Nickerson SHOE LACER Unavailable [phone] Casa Phillips MD Primary Care Provider [phone] Encounter Details Date Type Department Care Team [...] the past 12 months has th e [employer] Private, gas, oil, or water company threatened to [...] [address] [facility], [address] [place] [address] Nikolai Naranjo MD [address] [facility] [address] [place] [address] documented as of this encounter Visit Diagnoses Not on filedocumented in this encounter Additional Health Concerns Assessment Noted Time A fall risk assessment has been complete d for the patient 02/23/2025 8:48 AM EDT A Body Mass Index follow-up plan has been documented for the patient 04/04/2025 10:30 AM EDT documented as of this encounter Care Teams Acid Tender Relationship Specialty Start Date End Date Casa Phillips MD [address] [place] [address] PCP - General 02/22/25 Forrest Nickerson APRN [address] [place] [address] 03/06/23 documented as of this encounter
--- OUTSIDE RECORDS SUMMARY | 2025-05-07 15:57 | XMS_ITS | Encounter Summary ---
Author Organization [facility] Address [address] [place] [address] Care Team Providers Care Broadcast Program Director Name Role Phone Demetrio Nickersnoann Theresa FILM CRITIC Unavailable [phone] Casa Phillips MD Primary Care Provider [phone] Encounter Details Date Type Department Care Team [...] Pav CC Head, Neck & Respiratory [address] [facility], [address] [place] [address] Nikolai Naranjo MD [address] [facility] [address] [place] [address] documented as of this encounter Visit Diagnoses Not on filedocumented in this encounter Additional Health Concerns Assessment Noted Time A fall risk assessment has been complete d for the patient 02/23/2025 8:48 AM EDT A Body Mass Index follow-up plan has been documented for the patient 04/04/2025 10:30 AM EDT documented as of this encounter Care Teams Broadcast Program Director Relationship Specialty Start Date End Date Casa Phillips MD [address] [place] [address] PCP - General 02/22/25 Forrest Nickerson APRN [address] [place] [address] 03/06/23 documented as of this encounter
--- OUTSIDE RECORDS SUMMARY | 2025-05-07 15:57 | XMS_ITS | Encounter Summary ---
Author Organization [facility] Address [address] [place] [address] Care Team Providers Care Customer Greeter Name Role Phone Forrest Nickerson RECYCLABLE MATERIALS SORTER Unavailable [phone] Casa Phillips MD Primary Care Provider [phone] Encounter Details Date Type Department Care Team [...] Pav CC Head, Neck & Respiratory 800 [facility], [address] [place] [address] Nikolai Naranjo MD [address] [facility] [address] [facility] [address] [place] [address] documented as of this encounter Visit Diagnoses Not on filedocumented in this encounter Additional Health Concerns Assessment Noted Time A fall risk assessment has been complete d for the patient 02/23/2025 8:48 AM EDT A Body Mass Index follow-up plan has been documented for the patient 04/04/2025 10:30 AM EDT documented as of this encounter Care Teams Customer Greeter Relationship Specialty Start Date End Date Casa Phillips MD [address] [place] [address] PCP - General 02/22/25 Forrest Nickerson APRN [address] [place] [address] 03/06/23 documented as of this encounter
--- OUTSIDE RECORDS SUMMARY | 2025-05-07 15:57 | XMS_ITS | Encounter Summary ---
Author Organization [facility] Address [address] [place] [address] Care Team Providers Care Detective Homicide Squad Name Role Phone Forrest Nickerson HEAD BANQUET WAITRESS Unavailable [phone] Casa Phillips MD Primary Care Provider [phone] Encounter Details Date Type Department Care Team [...] Pav CC Head, Neck & Respiratory [address] [facility], [address] [place] [address] Nikolai Naranjo MD [address] [facility] [address] [place] [address] documented as of this encounter Visit Diagnoses Not on filedocumented in this encounter Additional Health Concerns Assessment Noted Time A fall risk assessment has been complete d for the patient 02/23/2025 8:48 AM EDT A Body Mass Index follow-up plan has been documented for the patient 04/04/2025 10:30 AM EDT documented as of this encounter Care Teams Detective Homicide Squad Relationship Specialty Start Date End Date Casa Phillips MD [address] [place] [address] PCP - General 02/22/25 Forrest Nickerson APRN [address] [place] [address] 03/06/23 documented as of this encounter
--- OUTSIDE RECORDS SUMMARY | 2025-05-07 15:57 | XMS_ITS | Encounter Summary ---
Author Organization [facility] Address [address] [place] [address] Care Team Providers Care Recreation Program Specialist Name Role Phone Forrest Nickerson SPRAY GUN STRIPER Unavailable [phone] Casa Phillips MD Primary Care Provider [phone] Encounter Details Date Type Department Care Team [...] CC Head, Neck & Respiratory 800 [facility], [address] [place] [address] Nikolai Naranjo MD [address] [facility] [address] [facility] [address] [place] [address] documented as of this encounter Visit Diagnoses Not on filedocumented in this encounter Additional Health Concerns Assessment Noted Time A fall risk assessment has been complete d for the patient 02/23/2025 8:48 AM EDT A Body Mass Index follow-up plan has been documented for the patient 04/04/2025 10:30 AM EDT documented as of this encounter Care Teams Recreation Program Specialist Relationship Specialty Start Date End Date Casa Phillips MD [address] [place] [address] PCP - General 02/22/25 Forrest Nickerson APRN [address] [place] [address] 03/06/23 documented as of this encounter
--- OUTSIDE RECORDS SUMMARY | 2025-05-07 15:57 | XMS_ITS | Data Portability ---
Author Organization [facility] and [facility] Address [address] [place] [address] Assessment No assessment recorded. Plan of Treatment Reminders Order Date Submit Date Provider Last Modified By Organization Details Last Modified Time Details Appointments OV EST 15 2024 02:45P Leigha Brown Jr, MD Not available Not available Not available OV EST 15 2025 02:45P Leigha Brown Jr, MD Not available Not available Not available Lab PSA, serum or plasma 2024 025 [email or web address] [facility] [address], [address], 05/07/2025 15:22:51 PSA, serum or plasma 2023 024 [email or web address] [facility] [address], [address], 04/07/2024 09:41:19 urinalysi s, dipstick 2022 023 [email or web address] [facility] [address], [address], 09/25/2023 16:41:34 culture, urine + sensitivi ty 2022 023 [email or web address] [facility] [address], [address], 10/02/2023 07:06:04 Referral None recorded. Procedures bladder scan (PROC) 2024 025 [email or web address] [facility] [address], [address], 05/07/2025 15:22:32 bladder scan (PROC) 2022 023 [email or web address] [facility] [address], [address], 09/25/2023 16:41:34 Surgeries None recorded. Imaging None recorded. Medication Orders cefdinir 300 mg capsule [address] [facility], [address], [address], 09/25/2023 14:59:22 Patient TargetsNo targets recorded. Patient InstructionsNo instructions recorded. Reason for Referral None Reported. Results Created Date Observation Date Name Description Value Unit Range Abnormal Flag Note LastModifiedBy Organization Detail LastModifiedTime 08/16/2008/16/2023 BASIC METAB OLIC PANEL sodium 139 mmol/ L 137-14 7 Not Available [facility] ([facility]Op [facility]) [address] [place] [address] [place], [address], 08/16/2023 13:11:40 08/16/20 23 08/16/2023 BASIC METAB OLIC PANEL potassium 4.7 mmol/ L 3.5-5. 1 Not Available [facility] ([facility]Op [facility]) [address] [place] [address] [place], [address], 08/16/2023 13:11:40 08/16/20 23 08/16/2023 BASIC METAB OLIC PANEL chloride 107 mmol/ L 98-110 Not Available [facility] (Pre-Op Clinic) [address] [place] [address] [place], [address], 08/16/2023 13:11:40 08/16/20 23 08/16/2023 BASIC METAB OLIC PANEL carbon dioxide 23 mmol/ L 21-30 Not Available [facility] (Pre-Op Clinic) [address] [place] [address] [place], [address], 08/16/2023 13:11:40 08/16/20 23 08/16/2023 BASIC METAB OLIC PANEL anion gap 9 mmol/ L 6-14 Not Available [facility] ([facility]Op [facility]) [address] [facility] [place], [address], 08/16/2023 13:11:40 08/16/20 23 08/16/2023 BASIC METAB OLIC PANEL glucose 118 mg/dL 70-115 high Not Available [facility] ([facility]Op [facility]) [address] [place] [address] [place], [address], 08/16/2023 13:11:40 08/16/20 23 08/16/2023 BASIC METAB OLIC PANEL BUN 30 mg/dL 9-20 high Not Available [facility] ([facility]Op [facility]) [address] [place] [address] [place], [address], 08/16/2023 13:11:40 08/16/20 23 08/16/2023 BASIC METAB OLIC PANEL creatinine 1.8 mg/dL 0.5-1. 5 high Not Available [facility] ([facility]Op [facility]) [address] [place] [address] [place], [address], 08/16/2023 13:11:40 08/16/20 23 08/16/2023 BASIC METAB OLIC PANEL BUN/creatini ne ratio 17 ratio 10-20 Not Available [facility] ([facility]Op [facility]) [address] [place] [address] [place], [address], 08/16/2023 13:11:40 08/16/20 23 08/16/2023 BASIC METAB OLIC PANEL glom filtration rate TNP mL/mi n >60- GFR has only been valid ated for patie nts 18-70 years of age. Not Available [facility] ([facility]Op [facility]) [address] [place] [address] [place], [address], 08/16/2023 13:11:40 08/16/20 23 08/16/2023 BASIC METAB OLIC PANEL osmolality (calculated) 296 mosmo l/kg 275-30 1 OSMOL ALITY IS A CALCU LATIO N UTILI ZING THE SERUM /PLAS MA SODIU M, GLUCO SE AND UREA NITRO GEN (BUN) LEVEL S. FOR THE MOST ACCUR ATE RESUL T A MEASU RED SERUM OSMOL ALITY IS SUGGE STED. Not Available [facility] ([facility]Op [facility]) [address] [place] [address] [place], [address], 08/16/2023 13:11:40 08/16/20 23 08/16/2023 BASIC METAB OLIC PANEL calcium 9.3 mg/dL 8.5-10 .8 Not Available [facility] ([facility]Op [facility]) [address] [place] [address] [place], [address], 08/16/2023 13:11:40 08/16/20 23 08/16/2023 BASIC METAB OLIC PANEL note Unles s other ward noted testi ng perfo rmed at: [facility] [address] [place] [address] Mateo zamora MD Not Available [facility] ([facility]) [address] [place] [address] [place], [address], 08/16/2023 13:11:40 08/16/20 23 08/16/2023 RFS-P ATHOL OGY SPECI MEN REQUE ST pathreq Patho logy [address] [place] [address] Phone or [phone] Fax Velasquez daigle Jr., M.D., Medic al Direc tor [facility] [address] : [place] [address] Phone Numbe r: [id number] [phone] 00 Mateo zamora M.D. PATHO LOGY REPOR T Patie nt Name: MIGUEL LEVIN RD Date of : [birth year] Age/S ex: 77/M Accou nt Numbe r: [id number] Medic al Recor d Numbe r: [id number] Order ing MD: HOLGER BROWN AM Date Colle cted : 2022 Date Recei paola : 2022 Date Repor maria e : 2022 Exam: Biops y Acces krista# : [id number] Labor atory #: [id number] Copie s To: Techn ician : Clini armida Histo ry Benig n prost atic hyper plasi a, urine reten tion Previ ous Patie nt Histo ry and Files MIGUEL DEN, LESLIE RD (08/15 6 M) i??SS N: i?? 1. 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 S09-0 22760 , DateC ollec maria e: 04/12 1: Diagn osis: [...] : Hyper plast ic polyp 3. S06-0 80738 , DateC ollec maria e: 09/03 1: Diagn osis: LEFT SHOUL OLRA, CLINI SARAHY LIPOM A, EXCIS ION: Matur [...] red by Mateo zamora Jr., M.D. at [facility], [address] [place] [address] . Final Diagn osis BENIG N PROST ATIC HYPER PLASI A WITH PROST ATITI S EJT/P AH Stain *Recu [place] ;[place] [address] Legal ly authe ntica maria e by MATEO AMADOR MD 08-21 08:22 :00 Not Available [facility]) [address] [place] [address] [place], [address], 08/21/2023 08:46:20 08/17/20 23 08/17/2023 CBC W/ AUTO DIFF WBC 8.77 K/uL 4.5-11 .5 Not Available [facility] (Pre[facility]Op Clinic) [address] [place] [address] [place], [address], 08/17/2023 06:54:05 08/17/20 23 08/17/2023 CBC W/ AUTO DIFF RBC 3.21 M/uL 4.0-5. 4 low Not Available [facility] ([facility]Op [facility]) [address] [place] [address] [place], [address], 08/17/2023 06:54:05 08/17/20 23 08/17/2023 CBC W/ AUTO DIFF HGB 9.7 g/dL 14.0-1 8.0 low Not Available [facility] ([facility]Op [facility]) [address] [place] [address] [place], [address], 08/17/2023 06:54:05 08/17/2008/17/2023 CBC W/ AUTO DIFF HCT 28.7 % 40-54 low Not Available [facility] ([facility]) [address] [place] [address] [place], [address], 08/17/2023 06:54:05 08/17/2008/17/2023 CBC W/ AUTO DIFF MCV 89.4 fL 80.0-1 00.0 Not Available [facility] ([facility]Op [facility]) [address] [place] [address] [place], [address], 08/17/2023 06:54:05 08/17/2008/17/2023 CBC W/ AUTO DIFF MCH 30.2 pg 26.0-3 2.0 Not Available [facility] ([facility]Op [facility]) [address] [place] [address] [place], [address], 08/17/2023 06:54:05 08/17/2008/17/2023 CBC W/ AUTO DIFF MCHC 33.8 g/dL 32.0-3 6.0 Not Available [facility] ([facility]) [address] [place] [address] [place], [address], 08/17/2023 06:54:05 08/17/2008/17/2023 CBC W/ AUTO DIFF RDW 12.9 % 11.5-1 4.5 Not Available [facility] ([facility]) [address] [place] [address] [place], [address], 08/17/2023 06:54:05 08/17/2008/17/2023 CBC W/ AUTO DIFF platelet count 177 K/uL 142-42 4 Not Available [facility] ([facility]Op [facility]) [address] [place] [address] [place], [address], 08/17/2023 06:54:05 08/17/2008/17/2023 CBC W/ AUTO DIFF MPV 9.9 fL 6.8-10 .2 Not Available [facility] ([facility]) [address] [place] [address] [place], [address], 08/17/2023 06:54:05 08/17/20 23 08/17/2023 CBC W/ AUTO DIFF neutrophil % 92.4 % 50-70 high Not Available [facility] ([facility]) [address] [place] [address] [place], [address], 08/17/2023 06:54:05 08/17/20 23 08/17/2023 CBC W/ AUTO DIFF lymphocyte % 3.5 % 18.0-4 2.0 low Not Available [facility] ([facility]Op [facility]) [address] [place] [address] [place], [address], 08/17/2023 06:54:05 08/17/20 23 08/17/2023 CBC W/ AUTO DIFF monocyte % 3.6 % 2.0-11 .0 Not Available [facility] ([facility]) [address] [place] [address] [place], [address], 08/17/2023 06:54:05 08/17/20 23 08/17/2023 CBC W/ AUTO DIFF eosinophil % 0.0 % 1.0-3. 0 low Not Available [facility] ([facility]) [address] [place] [address] [place], [address], 08/17/2023 06:54:05 08/17/20 23 08/17/2023 CBC W/ AUTO DIFF basophil % 0.0 % 0.0-2. 0 Not Available [facility] ([facility]) [address] [place] [address] [place], [address], 08/17/2023 06:54:05 08/17/20 23 08/17/2023 CBC W/ AUTO DIFF immature granulocytes % 0.5 % 0.0-0. 8 Not Available [facility] ([facility]) [address] [place] [address] [place], [address], 08/17/2023 06:54:05 08/17/20 23 08/17/2023 CBC W/ AUTO DIFF nucleated red blood cells % 0.0 % Not Available [facility] ([facility]Op [facility]) [address] [place] [address] [place], [address], 08/17/2023 06:54:05 08/17/20 23 08/17/2023 CBC W/ AUTO DIFF neutrophil # 8.10 K/uL Not Available [facility] ([facility]) [address] [place] [address] [place], [address], 08/17/2023 06:54:05 08/17/20 23 08/17/2023 CBC W/ AUTO DIFF lymphocyte # 0.31 K/uL Not Available [facility] ([facility]Op [facility]) [address] [place] [address] [place], [address], 08/17/2023 06:54:05 08/17/20 23 08/17/2023 CBC W/ AUTO DIFF monocyte # 0.32 K/uL Not Available [facility] ([facility]) [address] [place] [address] [place], [address], 08/17/2023 06:54:05 08/17/20 23 08/17/2023 CBC W/ AUTO DIFF eosinophil # 0.00 K/uL Not Available [facility] ([facility]) [address] [place] [address] [place], [address], 08/17/2023 06:54:05 08/17/20 23 08/17/2023 CBC W/ AUTO DIFF basophil # 0.00 K/uL Not Available [facility] ([facility]) [address] [place] [address] [place], [address], 08/17/2023 06:54:05 08/17/20 23 08/17/2023 CBC W/ AUTO DIFF immature gramulocytes # 0.04 K/uL Not Available [facility] ([facility]Op [facility]) [address] [place] [address] [place], [address], 08/17/2023 06:54:05 08/17/20 23 08/17/2023 CBC W/ AUTO DIFF nucleated red blood cells # 0.00 k/uL Not Available [facility] ([facility]) [address] [place] [address] [place], [address], 08/17/2023 06:54:05 08/17/20 23 08/17/2023 CBC W/ AUTO DIFF manual differential NO Not Available [facility] ([facility]) [address] [place] [address] [place], [address], 08/17/2023 06:54:05 08/17/20 23 08/17/2023 CBC W/ AUTO DIFF note Unles s other ward noted testi ng perfo rmed at: [facility] [address] [place] [address] Mateo zamora MD Not Available [facility] ([facility]Op [facility]) [address] [place] [address] [place], [address], 08/17/2023 06:54:05 09/25/20 23 09/25/2023 CULTU RE URINE results MRB 09-26 719 >100, 000 COL/M L Gram Negat kristofer Rods Not Available [facility] (Lab Registration) [address] [place] [address] [place], [address], 09/26/2023 07:20:37 09/25/20 23 09/25/2023 CULTU RE URINE note Unles s other ward noted testi ng perfo rmed at: [facility] [address] [place] [address] [phone] Mateo zamora MD CLIA: [id number] Not Available [facility] (Lab Registration) [address] [place], [address], 09/26/2023 07:20:37 09/25/20 23 09/25/2023 CULTU RE URINE culccur ===== ===== ===== ===== ===== ===== ===== ===== ===== ===== ===== ===== ===== ===== ===== ===== ===== ===== ===== ===== ===== ===== ===== ===== Speci men NO.: [id number] Exam Statu s: Final Proce dure: [...] L Gram Negat kristofer Rods Not Available [facility] (Lab Registration) [address], [place], [address], 09/27/2023 09:07:57 09/25/20 23 09/25/2023 CULTU RE URINE note Unles s other ward noted testi ng perfo rmed at: [facility] [address] [place] [address] [phone] Mateo zamora MD CLIA: [id number] Not Available [facility] (Lab Registration) [address] [facility], [place], [address], 09/27/2023 09:07:57 09/25/2009/25/2023 bladd er scan (PROC ) Calculated Residual Urine: 94 ml Not Available [address], [address], 09/25/2023 13:03:52 09/25/2009/25/2023 urina lysis , dipst ick Leukocytes (reference range) modera te Not Available [address], [address], 09/25/2023 13:03:51 09/25/20 23 09/25/2023 urina lysis , dipst ick Nitrite (reference range:) positi ve Not Available [address], [address], 09/25/2023 13:03:51 09/25/20 23 09/25/2023 urina lysis , dipst ick Urobilinogen (reference range) 0.2 Not Available [address], [address], 09/25/2023 13:03:51 09/25/20 23 09/25/2023 urina lysis , dipst ick Protein (reference range) 300 Not Available [address], [address], 09/25/2023 13:03:51 09/25/20 23 09/25/2023 urina lysis , dipst ick pH (reference range 5-8.5) 5.5 Not Available [address], [address], 09/25/2023 13:03:51 09/25/20 23 09/25/2023 urina lysis , dipst ick Blood (reference range:) large Not Available [address], [address], 09/25/2023 13:03:51 09/25/2009/25/2023 urina lysis , dipst ick Specific [place] (reference range) 1.020 Not Available [address], [address], 09/25/2023 13:03:51 09/25/2009/25/2023 urina lysis , dipst ick Ketone (reference range) negati ve Not Available [address], [address], 09/25/2023 13:03:51 09/25/2009/25/2023 urina lysis , dipst ick Bilirubin (reference range) negati ve Not Available [address], [address], 09/25/2023 13:03:51 09/25/2009/25/2023 urina lysis , dipst ick Glucose (reference range) 1000 Not Available [address], [address], 09/25/2023 13:03:51 05/07/2005/07/2025 bladd er scan (PROC ) Calculated Residual Urine: 47mL Not Available [address], [address], 05/07/2025 15:22:11 Result Notes None recorded. Problems Name Problem SNOMED Code Status Onset Date Resolution Date Notes Provider Name and Address Organization Details Recorded Time Benign prostatic hyperplasia with outflow obstruction 352254018 Active BALJIT Amezcua [facility] [place] 3 14:05:26 Problem Notes None recorded. Procedures Surgical History Date Name Laterality Status Provider Name and Address Organization Details Recorded Time 3 Medina Catheter Insertion completed Jose Brown Jr, MD [address] [facility], [address], [place], [address], [facility] [place] 07/30/2023 11:56:26 3 Cystoscopy-Mal e completed Jose Brown Jr, MD [address] [facility], [address], [place], [address], [facility] [place] 06/06/2023 16:33:12 procedure on tendon completed Marisel SMILEY [facility] & [place] 04/10/2023 15:10:13 Imaging Results None recorded. Procedure Notes None recorded. Medical Equipment None Reported. Allergies Allergen ID Allergen Name Allergen Category Reaction Reaction Severity Criticality Documentation Date Start Date Code Code System Note Provider Name and Address Organization Details Recorded Time 296607 cetirizin e medicatio n Not available Not available Not available 08/30/2023 34753 RxNorm Other react ions and sever ities : 'Adve rse react ion to subst ance' . BALJIT Amezcua [facility] [place] 3 14:05:13 79327 Zyrtec medicatio n Not available Not available Not available 04/10/2023 59851 RxNorm BALJIT Amezcua [facility] [place] 3 15:09:08 Medications Name Sig Start Date [...] Not Available Not Available No t Available prochlorper azine maleate 10 mg tablet TAKE 1 TABLET BY MOUTH EVERY 6 HOURS NEEDED FOR NAUSEA AND VOMITING active Not Available Not Available No t Available hydrocodone 10 mg-acetamin ophen 325 mg tablet TAKE 1 TABLET BY MOUTH EVERY 6 HOURS FOR SEVERE PAIN FOR UP TO 10 DAYS active Not Available Not Available No [...] Not Available No t Available dexamethaso ne 4 mg tablet TAKE 1 TABLET BY MOUTH TWICE DAILY THE DAY BEFORE, DAY OF AND DAY AFTER CHEMOTHER APY, REPEAT WITH EACH CYCLE active Not Available Not Available No t [...] Not Available Not Available Not Avai lable folic acid 1 mg tablet TAKE 1 TABLET BY MOUTH ONCE DAILY START 7 DAYS PRIOR TO CHEMOTHER APY AND CONTINUE DAILY DURNING TREATMENT S active Not Available Not Available No t Available lisinopril 5 mg tablet 10 mg by [...] Not Available Not Available No t Available [facility] COVID-19 Antigen Rapid Home Test kit USE DIRECTED active Not Available Not Available No t Available Vitals Date Recorded Body height Body mass index (BMI) Body weight Body temperature Provider Name and Address Organization Details Last Updated DateTime 04/03/2024 177.8 cm 22.4 kg/m2 33358.41 g 98 [degF] Viky Srinivas [facility] [place] 04/03/2024 11:31:52 Date Recorded Body height Body mass index (BMI) Body weight Provider Name and Address Organization Details Last Updated DateTime 05/07/2025 177.8 cm 22.4 kg/m2 26879.41 g Susannah Casas [facility] [place] 05/07/2025 14:39:39 Date Recorded Body height Body mass index (BMI) Body weight Body temperature Provider Name and Address Organization Details Last Updated DateTime 08/30/2023 177.8 cm 22.4 kg/m2 72375.41 g 97.9 [degF] Marisel Radford [facility] [place] 08/30/2023 14:05:08 Date Recorded Body height Body mass index (BMI) Body weight Body temperature Provider Name and Address Organization Details Last Updated DateTime 09/25/2023 177.8 cm 22.4 kg/m2 14964.41 g 97.9 [degF] Marisel Radford [facility] [place] 09/25/2023 13:03:14 Social History None recorded. Functional Status Question Answer Note LastModified by Organizat ion Details LastModified Time What is your level of alcohol consumption? Occasional [email or web address] Information not available 04/10/2023 Mental Status None recorded. Family History Relationship Description Onset Age of this Age Resolved Age Notes LastModified by Organization Details LastModified Time Brother Family history unknown Not available 2022 15:09:42 Sister Family history unknown Not available 2022 15:09:42 Father Family history unknown [email or web address] Not available 2022 15:09:42 Mother Family history unknown [email or web address] Not available 2022 15:09:42 Medical History No medical history recorded. Past Encounters Encounter ID Performer Location Encounter Start Date Encounter Closed Date Diagnosis/Indication Diagnosis SNOMED-CT Code Diagnosis ICD10 Code Diagnosis Note [id number] Jose Brown Jr, MD [facility] [address] [address] 04/10/2023 14:30:14 04/10/2023 15:07:26 Prostate specific antigen above reference range 719445265 R97.20 Patient with history of elevated PSA. His PSAs have been stable for several years. We will repeat a free and total PSA today. His prostate exam was benign. Lower urin dacia tract symptoms due to benign prostatic hypertrophy [id number] 9101 N40.1 patient with history of BPH. He is doing well with the doxazosin 4 mg in his to continue. [id number] Jose Brown Jr, MD [facility] [address] [place] [address] 06/06/2023 13:12:45 06/06/2023 14:28:47 Incomplete emptying of urinary bladder due to benign prostatic hypertrophy 8971600290 68228 N40.1 patient with urinary retention. he had [...] We discussed treatment options and UroLift was recommende d. We discussed the procedure and complicati ons. He would like to proceed. We will get cardiac clearance from his cardiologi st in [facility]. We discussed that he will need to discontinu e the aspirin 7 days prior and the Plavix 5 days prior to the procedure. Chronic ki dney disease 598537436 N18.9 patient is lower urinary tract obstructio n is likely contributi ng. Prostate s pecific antigen above reference range 248473286 R97.20 Patient with history of elevated PSA. His PSAs have been stable for several years. most recent PSA was stable free PSA puts him at a low risk for prostate cancer. [id number] Jose Brown Jr, MD [facility] [address] [place] [address], [place] [address] 07/09/2023 10:51:34 07/09/2023 11:27:01 Incomplete emptying of urinary bladder due to benign prostatic hypertrophy [id number] 13504 N40.1 patient with history of urinary retention [...] room for catheter and follow-up with me. [id number] Jose Brown Jr, MD [facility] [address] [place] [address], [place] [address] 07/16/2023 08:25:20 07/16/2023 09:01:22 Incomplete emptying of urinary bladder due to benign prostatic hypertrophy 0530207216 48883 N40.1 patient with history of urinary retention [...] Prostate s pecific antigen above reference range 580454705 R97.20 Patient with history of elevated PSA. His PSAs have been stable for several years. most recent PSA was stable free PSA puts him at a low risk for prostate cancer. [id number] Jose Brown Jr, MD [facility] [address] [place] [address] 07/30/2023 09:14:19 07/30/2023 11:33:31 Incomplete emptying of urinary bladder due to benign prostatic hypertrophy [id number] 07968 N40.1 patient with history of urinary retention secondary to BPH. He has chronic bladder outlet obstructiv e changes in his bladder and the large prostate. Patient has failed a voiding trial 1 week after the UroLift and comes in today for repeat voiding trial. 400 cc placed into his bladder but was only able to void 50 cc. Mednia catheter was replaced and we discussed other [...] Plavix 5 days prior to his procedure. [id number] Jose Brown Jr, MD [facility] [address] [address] 08/21/2023 14:46:21 08/21/2023 15:09:20 Incomplete emptying of urinary bladder due to benign prostatic hypertrophy [id number] 93839 N40.1 patient is status post TURP 5 [...] him back in 1 month in follow-up. [id number] Jose Brown Jr, MD [facility] [address] [address] 09/25/2023 12:55:34 09/25/2023 13:12:58 Lower urinary tract symptoms due to benign prostatic hypertrophy [id number] 9101 N40.1 Patient with history of bladder outlet obstructio n. He underwent a TURP several weeks ago. He returns today and states he is voiding with a good stream. His bladder scan today indicates a residual of only 94 cc. He was reassured that he is emptying out well. His pathology showed no evidence of cancer. Urinary tr act infectious disease 49702402 N39.0 Patient with symptoms of a UTI today. His urinalysis does look suspicious . We will culture it and he was placed on cefdinir. [id number] Jose Brown Jr, MD [facility] [address] [address] 08/30/2023 13:57:52 08/30/2023 14:08:26 Reji hematuria [id number] R31.0 patient with some gross hematuria 2 weeks after TURP. His urine looks acceptably clear in his sample today. We discussed stopping the aspirin and pushing fluids. I also offered to place a catheter put some pressure on prostate wall but he does not want to do that. Incomplete emptying of urinary bladder due to benign prostatic hypertrophy [id number] 23982 N40.1 patient states he is voiding well after the TURP. [id number] Jose Brown Jr, MD [facility] [address] [address] 04/03/2024 11:07:58 04/03/2024 11:38:20 Screening for malignant neoplasm of prostate 452934170 Z12.5 Will check PSA today. PSA was 10.2 03/2023 and 7 on 05/2022. Benign pro static hyperplasia with outflow obstruction 249446432 N40.1 Pt with h/o urinary retention s/p TURP 08/2023. Pt voiding well and pleased with results.Pa th benign. Pt off prostate meds. [id number] Jose Brown Jr, MD [facility] [address] [address] 05/07/2025 14:35:53 05/07/2025 15:31:12 Benign prostatic hyperplasia with outflow obstruction 185073490 N40.1 N13.8 Patient with history of BPH status post TURP in August 2023. He would recurrence s some urinary symptoms after recent lung surgery for lung cancer. He is getting stronger he states he is able to void better. His bladder scan today is 41 cc. He is currently on tamsulosin per his recent urinary problems and we discussed that he may try to go off of them. Prostate s pecific antigen above reference range [id number] R97.20 Patient with history of elevated PSA. His PSA last year was 2.1 which is markedly lower after the TURP. Health Concerns Section Related Observation LastModified by Organization Detai ls LastModified Time None Recorded Concern Status LastModified by Organization Details LastModified Time None Recorded Advance Directives Directive None Recorded Payers Insurance Date Sequence Insurance Name Policy Number Policy Zamora Covered Member ID Zamora Member ID Guarantor Name 05/07/2025 1 [place] [id number] Galvan Ted Feliz [id number] 18 [facility] Notes Date Note Type Note Provider Name and Address Organization Details Recorded Time 08/21/2023 text/html ROS as noted in the HPI Patient returns today status post TURP days ago. States his urine has been pretty clear in the [place] bag. He denies any nausea, vomiting, fevers or chills. His pathology showed no evidence of prostate cancer in the prostate chips. Patient presents for voiding trial today. Jose Brown Jr, MD [address] [place] [address], [address], [address], [facility] 08/21/2023 15:15:29 08/30/2023 text/html ROS as noted in the HPI patient patient is a 77-year-old white male status post a TURP 2 weeks ago. He returns today because of some blood in his urine. 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 He states he is having a bit of blood oozing out the meatus. Has restarted his aspirin. His been off of Plavix since before his procedure. Jose Brown Jr, MD [address] [place] [address], [address], [place], [address], [facility] & [place] 08/30/2023 14:50:44 09/25/2023 text/html ROS as noted in the HPI Patient is a 78-year-old white male with [...] having some burning. Jose Brown Jr, MD [address] [facility], [address], [place], [address], [facility] & [place] 09/25/2023 15:01:39 04/03/2024 text/html ROS as noted in the HPI 78 yo WM with h/o urinary retention s/p TURP 08/2023. He states he is voiding well. Nocturia only 1 time. He had a UTI at last visit in September but denies any recurrent symtpoms. His bladder scan at last visit was 94 cc. Path showed no cancer. Jose Brown Jr, MD [address] [facility], [address], [place], [address], [facility] [place] 04/12/2024 19:53:23 05/07/2025 text/html ROS as noted in the HPI 79-year-old white male with history of BPH and elevated PSA returns for yearly follow-up today. Patient underwent a TURP on August 2023. In his last visit in March 2024 he was voiding well and off Flomax. Comes in today because he had recent lung cancer surgery and had some difficulty voiding afterwards. He was placed on tamsulosin. He is rehabbing but is still on a walker. Feels like his voiding better.Patient with history of elevated PSA prior to TURP but after his TURP his PSA was 2.1 as of March 2024. Jose Brown Jr, MD [address] [facility], [address], [place], [address], [facility] & [place] 05/07/2025 15:42:13
--- OUTSIDE RECORDS SUMMARY | 2025-05-07 15:57 | XMS_ITS | Encounter Summary ---
Author Organization [facility] Address [address] [place] [address] Care Team Providers Care Ruby On Rails Engineer Name Role Phone Forrest Nickerson HELP DESK ASSOCIATE Unavailable [phone] Casa Phillips MD Primary Care Provider [phone] Encounter Details Date Type Department Care Team [...] in the past 12 m [facility], were you homeless or living [...] & Respiratory [address] [facility], 2nd [place] [address] Nikolai Naranjo MD [address] [facility] [address] [facility] [address] [place] [address] documented as of this encounter Visit Diagnoses Not on filedocumented in this encounter Additional Health Concerns Assessment Noted Time A fall risk assessment has been complete d for the patient 02/23/2025 8:48 AM EDT A Body Mass Index follow-up plan has been documented for the patient 04/04/2025 10:30 AM EDT documented as of this encounter Care Teams Ruby On Rails Engineer Relationship Specialty Start Date End Date Casa Phillips MD [address] [place] [address] PCP - General 02/22/25 Forrest Nickerson APRN [address] [place] [address] 03/06/23 documented as of this encounter
--- OUTSIDE RECORDS SUMMARY | 2025-05-07 15:58 | XMS_ITS | Continuity of Care Document ---
Author Organization [place] [facility] Address [address] [place] [address] Assessment No assessment recorded. Plan of Treatment Reminders Order Date Submit Date Provider Last Modified By Organization Details Last Modified Time Details Appointments OV EST 15 2024 02:45P Leigha Knott Jr, MD Not available Not available Not available OV EST 15 2025 02:45P Leigha Knott Jr, MD Not available Not available Not available Lab PSA, serum or plasma 2024 025 ATHENAFAX [facility], [address] [place] [address], [phone], 05/07/2025 15:22:51 Referral None recorded . Procedures bladder scan (PROC) 2024 025 [email or web address] 1 [facility], [address] [place] [address], [address], 05/07/2025 15:22:32 Surgeries None recorded . Imaging None recorded . Medication Orders None recorded . Patient TargetsNo targets recorded. Patient InstructionsNo instructions recorded. Reason for Referral None Reported. Results Created Date Observation Date Name Description Value Unit Range Abnormal Flag Note LastModifiedBy Organization Detail LastModifiedTime 05/07/2005/07/2025 bladd er scan (PROC ) Calculated Residual Urine: 47mL Not Available [address], [address], 05/07/2025 15:22:11 Result Notes None recorded. Problems Name Problem SNOMED Code Status Onset Date Resolution Date Notes Provider Name and Address Organization Details Recorded Time Benign prostatic hyperplasia with outflow obstruction 391565005 Active BALJIT Amezcua [facility] & [place] 3 14:05:26 Problem Notes None recorded. Procedures Surgical History Date Name Laterality Status Provider Name and Address Organization Details Recorded Time 3 Medina Catheter Insertion completed Jose Knott Jr, MD [address] [facility], [address], [place], [address], [facility] & [place] 07/30/2023 11:56:26 3 Cystoscopy-Mal e completed Jose Knott Jr, MD [address], [address], [place], [address], [facility] & [place] 06/06/2023 16:33:12 procedure on tendon completed Marisel SMILEY [facility] & [place] 04/10/2023 15:10:13 Imaging Results None recorded. Procedure Notes None recorded. Medical Equipment None Reported. Allergies Allergen ID Allergen Name Allergen Category Reaction Reaction Severity Criticality Documentation Date Start Date Code Code System Note Provider Name and Address Organization Details Recorded Time 203113 cetirizin e medicatio n Not available Not available Not available 08/30/2023 06668 RxNorm Other react ions and sever ities : 'Adve rse react ion to subst ance' . BALJIT Amezcua [facility] & [place] 3 14:05:13 67464 Zyrtec medicatio n Not available Not available Not available 04/10/2023 70856 RxNorm BALJIT Amezcua [facility] & [place] 3 15:09:08 Medications Name Sig Start Date [...] Not Available Not Available No t Available [facility] COVID-19 Antigen Rapid Home Test kit USE DIRECTED active Not Available Not Available No t Available Vitals Date Recorded Body height Body mass index (BMI) Body weight Provider Name and Address Organization Details Last Updated DateTime 05/07/2025 177.8 cm 22.4 kg/m2 93204.41 g [facility] 05/07/2025 14:39:39 Social History None recorded. Functional Status Question Answer Note LastModified by Organizat ion Details LastModified Time What is your level of alcohol consumption? Occasional [email or web address] Information not available 04/10/2023 Mental Status None recorded. Family History Relationship Description Onset Age of this Age Resolved Age Notes LastModified by Organization Details LastModified Time Brother Family history unknown [email or web address] Not available 2022 15:09:42 Sister Family history unknown [email or web address] Not available 2022 15:09:42 Father Family history unknown [email or web address] Not available 2022 15:09:42 Mother Family history unknown [email or web address] Not available 2022 15:09:42 Medical History No medical history recorded. Past Encounters Encounter ID Performer Location Encounter Start Date Encounter Closed Date Diagnosis/Indication Diagnosis SNOMED-CT Code Diagnosis ICD10 Code Diagnosis Note [id number] Jose Knott Jr, MD [facility] [address] [address] 05/07/2025 14:35:53 05/07/2025 15:31:12 Benign prostatic hyperplasia with outflow obstruction 170800242 N40.1 N13.8 Patient with history of BPH [...] Prostate s pecific antigen above reference range 903865653 R97.20 Patient with history of elevated PSA. His PSA last year was 2.1 which is markedly lower after the TURP. Health Concerns Section Related Observation LastModified by Organization Detai ls LastModified Time None Recorded Concern Status LastModified by Organization Details LastModified Time None Recorded Payers Encounter Date Sequence Insurance Name Policy Number Policy Zamora Covered Member ID Zamora Member ID Guarantor Name 05/07/2025 1 [place] [id number] Cole Feliz Jr [id number] 18 [place] [facility] Notes Date Note Type Note Provider Name and Address Organization Details Recorded Time 05/07/2025 text/html ROS as noted in the [...] was 2.1 as of March 2024. Jose Knott Jr, MD [address] [place] [address], [address], [place], [address], [place] - [facility] - [place] & [place] 05/07/2025 15:42:13
--- OUTSIDE RECORDS SUMMARY | 2025-05-07 15:58 | XMS_ITS | Encounter Summary ---
Author Organization [facility] Address [address] [place] [address] Care Team Providers Care Health Coordinator Name Role Phone Demetrio Nickersonann Theresa PATTERN DRAFTER Unavailable [phone] Casa Phillips MD Primary Care Provider [phone] Encounter Details Date Type Department Care Team (Late st Contact Info) Description 04/19/2025 Telephone [facility] Respiratory [address] [place] [address] Manny Lopez MD [address] [place] [address] Social History Tobacco Use Types Packs/Day Years [...] - 04/19/2025 1:15 PM EDT Branden at [facility] [phone] called for lon said to call him back documented in this encounter Plan of Treatment Upcoming Encounters Date Type Department Care Team (Late st Contact Info) Description 07/06/2025 10:40 AM EDT Office Visit [facility] Neck & Respiratory [address] [facility], 2nd [place] [address] Nikolai Naranjo MD [address] [facility] [address] [place] [address] documented as of this encounter Visit Diagnoses Not on filedocumented in this encounter Additional Health Concerns Assessment Noted Time A fall risk assessment has been complete d for the patient 04/06/2025 10:27 AM EDT A Body Mass Index follow-up plan has been documented for the patient 04/06/2025 12:11 PM EDT documented as of this encounter Care Teams Health Coordinator Relationship Specialty Start Date End Date Casa Phillips MD [address] [place] [address] PCP - General 02/22/25 Forrest Nickerson APRN [address] [place] [address] 03/06/23 documented as of this encounter
--- OUTSIDE RECORDS SUMMARY | 2025-05-07 15:58 | XMS_ITS | Encounter Summary ---
Author Organization [facility] Address [address] [place] [address] Care Team Providers Care Certified Prosthetist/Orthotist Name Role Phone Demetrio Nickersonann Theresa COLLEGE ADVISOR Unavailable [phone] Casa Phillips MD Primary Care Provider [phone] Encounter Details Date Type Department Care Team [...] [facility] Head[facility] Neck & Respiratory [address] [facility], 2nd [place] [address] Nikolai Naranjo MD [address] [facility] [address] [place] [address] documented as of this encounter Visit Diagnoses Not on filedocumented in this encounter Additional Health Concerns Assessment Noted Time A fall risk assessment has been complete d for the patient 02/23/2025 8:48 AM EDT A Body Mass Index follow-up plan has been documented for the patient 02/25/2025 5:11 PM EDT documented as of this encounter Care Teams Certified Prosthetist/Orthotist Relationship Specialty Start Date End Date Casa Phillips MD [address] [place] [address] PCP - General 02/22/25 Forrest Nickerson APRN [address] [place] [address] 03/06/23 documented as of this encounter
--- OUTSIDE RECORDS SUMMARY | 2025-05-07 15:58 | XMS_ITS | Encounter Summary ---
Author Organization [facility] Address [address] [place] [address] Care Team Providers Care Production Control Pegboard Clerk Name Role Phone Demetrio Nickersonann Cardenas COATER OPERATOR Unavailable [phone] Casa Phillips MD Primary Care Provider [phone] Encounter Details Date Type Department Care Team (Late st Contact Info) Description 03/04/2025 Results Follow-Up Pav [facility] Head[facility] Neck & Respiratory [address] [facility], 2nd [place] [address] Nikolai Naranjo MD [address] [facility] [address] [place] [address] Social History Tobacco Use Types [...] any time in the past 12 m [facility], were you homeless or living [...] Month) No 04/04/2025 8:00 AM EDT Raysa Iniguez, RN 6. Suicidal Behavior (Lifetime) No 8:00 AM EDT Carmella Iniguez, RN documented as of this encounter Plan of Treatment Upcoming Encounters Date Type Department Care Team (Late st Contact Info) Description 07/06/2025 10:40 AM EDT Office Visit [facility] Head[facility] Neck & Respiratory [address] [place] [address] Nikolai Naranjo MD [address] [place] [address] documented as of this encounter Visit Diagnoses Not on filedocumented in this encounter Additional Health Concerns Assessment Noted Time A fall risk assessment has been complete d for the patient 02/23/2025 8:48 AM EDT A Body Mass Index follow-up plan has been documented for the patient 02/25/2025 5:11 PM EDT documented as of this encounter Care Teams Production Control Pegboard Clerk Relationship Specialty Start Date End Date Casa Phillips MD [address] [place] [address] PCP - General 02/22/25 Forrest Nickerson APRN [address] [place] [address] 03/06/23 documented as of this encounter
--- OUTSIDE RECORDS SUMMARY | 2025-05-07 15:58 | XMS_ITS | Encounter Summary ---
Author Organization [facility] Address [address] [place] [address] Care Team Providers Care Web Applications Developer Name Role Phone Demetrio trevinoann Theresa PAINT LABORATORY TECHNICIAN Unavailable [phone] Casa Phillips MD Primary Care Provider [phone] Encounter Details Date Type Department Care Team (Late st Contact Info) Description 03/11/2025 Telephone [facility] Respiratory [address], [address] [place] [address] Ирина Lopez MD [address] [facility] [address] [place] [address] Social History Tobacco Use Types [...] regarding FMLA specific adjustments to letter needed. [phone], please call after 3:00pm * Telephone Encounter - Kimmy Kline - 03/11/2025 3:59 PM EDT Patient Phone Message Reason for Call: Daughter needs a call back from clinical care team to update/adjust FMLA for pt's caregiver Nora. Best contact number and optimal time of day to reach caller: [phone], Note: Please do not reply to this message. Follow-up communication and further actions as a result of this message need to be communicated with the patient directly, if the patient is not active onMyChart. If the patient is active on MyChart, they will receive notification of the communication/outcome via [employer]. documented in this encounter Plan of Treatment Upcoming Encounters Date Type Department Care Team (Late st Contact Info) Description 07/06/2025 10:40 AM EDT Office Visit Pav [facility] Head[facility] Neck & Respiratory [address] [facility], [address]nd [place] [address] Nikolai Naranjo MD [address] [facility] [address] [facility] [address] [place] [address] documented as of this encounter Visit Diagnoses Not on filedocumented in this encounter Additional Health Concerns Assessment Noted Time A fall risk assessment has been complete d for the patient 02/23/2025 8:48 AM EDT A Body Mass Index follow-up plan has been documented for the patient 02/25/2025 5:11 PM EDT documented as of this encounter Care Teams Web Applications Developer Relationship Specialty Start Date End Date Casa Phillips MD [address] [place] [address] PCP - General 02/22/25 Forrest Nickerson APRN [address] [place] [address] 03/06/23 documented as of this encounter
--- OUTSIDE RECORDS SUMMARY | 2025-05-07 15:58 | XMS_ITS | Encounter Summary ---
Author Organization [facility] Address [address] [place] [address] Care Team Providers Care Help Desk Intern Name Role Phone Forrest Nickerson DIRECTOR DATA PROCESSING Unavailable [phone] Casa Phillips MD Primary Care Provider [phone] Encounter Details Date Type Department Care Team [...] Upcoming Encounters Date Type Department Care Team ([facility] Contact Info) Description 07/06/2025 10:40 AM EDT Office Visit Pav [facility] Head[facility] Neck & Respiratory [address] [facility], [address]nd [place] [address] Nikolai Naranjo MD [address] [facility] [address] [facility] [address] [place] [address] documented as of this encounter Visit Diagnoses Not on filedocumented in this encounter Additional Health Concerns Assessment Noted Time A fall risk assessment has been complete d for the patient 04/20/2025 10:24 AM EDT A Body Mass Index follow-up plan has been documented for the patient 04/23/2025 4:10 PM EDT documented as of this encounter Care Teams Help Desk Intern Relationship Specialty Start Date End Date Casa Phillips MD [address] [place] [address] PCP - General 02/22/25 Forrest Nickerson APRN [address] [place] [address] 03/06/23 documented as of this encounter
--- OUTSIDE RECORDS SUMMARY | 2025-05-07 15:58 | XMS_ITS | Encounter Summary ---
Author Organization [facility] Address [address] [place] [address] Care Team Providers Care Storage Battery Inspector And Tester Name Role Phone Demetrio Nickersonann Theresa TREE PLANTER Unavailable [phone] Casa Phillips MD Primary Care Provider [phone] Encounter Details Date Type Department Care Team (Late st Contact Info) Description 04/20/2025 Telephone [facility] Head[facility] Neck & Respiratory [address], [address]nd [place] [address] Ирина Lopez MD [address] [facility] [address] [place] [address] Social History Tobacco Use Types [...] any time in the past 12 m [facility], were you homeless or living [...] regarding pain medication not being sent to [facility] in [place]. I confirmed it was sent at 11:42am. documented in this encounter Plan of Treatment Upcoming Encounters Date Type Department Care Team (Late st Contact Info) Description 07/06/2025 10:40 AM EDT Office Visit [facility] Head[facility] Neck & Respiratory [address] [facility], 2nd [place] [address] Nikolai Naranjo MD [address] [facility] [address] [place] [address] documented as of this encounter Visit Diagnoses Not on filedocumented in this encounter Additional Health Concerns Assessment Noted Time A fall risk assessment has been complete d for the patient 04/20/2025 10:24 AM EDT A Body Mass Index follow-up plan has been documented for the patient 04/23/2025 4:10 PM EDT documented as of this encounter Care Teams Storage Battery Inspector And Tester Relationship Specialty Start Date End Date Casa Phillips MD [address] [place] [address] PCP - General 02/22/25 Forrest Nickerson APRN [address] [place] [address] 03/06/23 documented as of this encounter
== END 2025-05-07 23:59 | disposition home or self-care (01) ==
LOC: RAD 15:53
PROVIDERS: PCP Family Medicine; Visit Provider Internal Medicine Medical Oncology
DX: R06.6 Hiccough (principal); J94.2 Hemothorax
CPT/HCPCS: 71046

== ENCOUNTER 2025-05-20 11:56 | Outpatient (CLI) | payer MEDICARE, SELFPAY ==
--- OUTSIDE RECORDS SUMMARY | 2025-03-29 09:43 | XMS_ITS | Encounter Summary ---
Author Organization [facility] Address [address] [place] [address] Care Team Providers Care Senior Manager Asset Protection Name Role Phone Forrest Nickerson MOLD F[employer]ER [employer] DRAINER Unavailable [phone] Casa Phillips MD Primary Care Provider [phone] Reason for Visit * Auth/Cert (Routine) Specialty Diagnoses / Procedures Referred By Contac t Referred To Contact Diagnoses Non-small cell cancer of left lung (CMS/HCC) Non-small cell cancer of left lung Procedures ND THORACOSCOPY SURG LOBECTOMY LEFT VATS LOBECTOMY Ирина Lopez MD [address] [address] Phone: tel: fax: [facility] OPERATING ROOM [address] [place] [address] Phone: tel: Referral ID Status Reason Start Date Expiration Date Visits Re quested Visits Authorized [id number] 1 1 Encounter Details Date Type Department Care Team (Latest Contact Info) Description 03/29/2025 9:43 AM EDT - 04/04/2025 12:18 PM EDT Hospital Encounter [facility] Inpatient [address] [place] [id number] Ирина Lopez MD [address] [address] Non-small cell cancer of left lung (CMS/HCC) [...] any time in the past 12 m [facility], were you homeless or living in a long-term (including now)? No 03/31/2025 Utilities Answer Date Recorded In the past 12 months has th e electric, gas, oil, or water [employer] threatened to shut off services in your [...] Clinic discharge # - For urgent questions/concerns: [facility] hotline: , option 4 - ask for the thoracic surgeon pharmacy operations coordinator. documented in this encounter Medications at Time [...] from the original note were not included. [id number] Surgery for Lung Cancer Surgery can be [...] holidays. Last Reviewed Date: 2023 00:00:00 ?? [id number] [employer]. All rights reserved. This information is not intended as a substitute for professional medical care. Always follow your healthcare professional's instructions. * Neida Garland - Chester Cuevas RN - 04/04/2025 10:29 AM EDT Images from the original note were not included. 56014 Thoracotomy Thoracotomy is surgery used to diagnose [...] . Last Reviewed Date: 2024 00:00:00 ?? [id number] [employer]. All rights reserved. This information is not intended as a substitute for professional medical care. Always follow your healthcare professional's instructions. * Neida Garland - Chester Cuevas RN - 04/04/2025 10:29 AM EDT Images from the original note were not included. [address]9023 Lung Cancer: Video-Assisted and Robotic-Assisted Thoracic Surgery [...] you will hurt less after surgery. ? [facility] stay. You can likely go home [...] surgery because the cuts are small. ? [facility] stay. You can likely go home [...] of surgery you need. Make sure the [facility] have experience in VATS or RATS. Not [...] future. Last Reviewed Date: 2023 00:00:00 ?? [id number] [employer]. All rights reserved. This information is not intended as a substitute for professional medical care. Always follow your healthcare professional's instructions. * Neida SandhuALEXIS - Chester Cuevas RN - 04/04/2025 10:24 AM EDT Images from the original note were not included. [id number] Tamsulosin Brand Name(s): Flomax??, Su?? (as a [...] and out of their sight and reach. [email or web address] Unneeded medications should be disposed of in [...] be awakened, immediately call emergency services at 561. Symptoms of overdose may include: ? dizziness [...] of all of the prescription and nonprescription (vecw-cdw-pzotnhx) medicines you are taking, as well as [...] or pharmacist about specific clinical use. The [employer] represents that the information provided hereunder was formulated with a reasonable standard of care, and in conformity with professional standards in the field. The [employer] makes no representations or warranties, express or implied, including, but not limited to, any implied warranty of merchantability and/or fitness for a particular purpose, with respect to such information and specifically disclaims all such warranties. Users are advised that decisions regarding drug therapy are complex medical decisions requiring the independent, informed decision of an appropriate health care transition mgr, and the information is provided for informational purposes only. The entire monograph for a drug should be reviewed for a thorough understanding of the drug's actions, uses and side effects. The [employer] does not endorse or recommend the use of any drug.The information is not a substitute for medical care. AHFS?? Patient Medication Information?. ?? Copyright, 2023. The [employer]??, [address], [address], [place], [place]. All Rights Reserved. Duplication for commercial use must be authorized by [facility]. Selected Revisions: October 28, 2017. AHFS?? Patient Medication Information?. ?? Copyright, 2024 * Chester Lyons RN - 04/04/2025 10:24 AM EDT Images from the original note were not included. [id number] Senna Brand Name(s): Black Aidanght??, Ex-Lax??, Baca's [...] and out of their sight and reach. [email or web address] Unneeded medications should be disposed of in [...] be awakened, immediately call emergency services at [phone]. What OTHER INFORMATION should I know? Ask your pharmacist any questions you have about senna. It is important for you to keep a written list of all of the prescription and nonprescription (epqo-pwy-vtejkqj) medicines you are taking, as well as [...] or pharmacist about specific clinical use. The [employer] represents that the information provided hereunder was formulated with a reasonable standard of care, and in conformity with professional standards in the field. The [employer] makes no representations or warranties, express or implied, including, but not limited to, any implied warranty of merchantability and/or fitness for a particular purpose, with respect to such information and specifically disclaims all such warranties. Users are advised that decisions regarding drug therapy are complex medical decisions requiring the independent, informed decision of an appropriate health care transition mgr, and the information is provided for informational purposes only. The entire monograph for a drug should be reviewed for a thorough understanding of the drug's actions, uses and side effects. The [employer] does not endorse or recommend the use of any drug.The information is not a substitute for medical care. AHFS?? Patient Medication Information?. ?? Copyright, 2023. The [employer]??, [address], [address], [place], [place]. All Rights Reserved. Duplication for commercial use must be authorized by [facility]. Selected Revisions: April 02, 2024. AHFS?? Patient Medication Information?. ?? Copyright, 2024 * Neida Garland - Chester Cuevas RN - 04/04/2025 10:24 AM EDT Images from the original note were not included. [id number] Polyethylene Glycol 3350 Brand Name(s): MiraLax?? PEG [...] be awakened, immediately call emergency services at [phone]. Symptoms of overdose may include: ? diarrhea ? thirst ? confusion ? seizure What OTHER INFORMATION should I know? Keep all appointments with your doctor. Do not let anyone else take your medication. Ask your pharmacist any questions you have about refilling your prescription. It is important for you to keep a written list of all of the prescription and nonprescription (sqjw-odn-hnfxttw) medicines you are taking, as well as [...] or pharmacist about specific clinical use. The [employer] represents that the information provided hereunder was formulated with a reasonable standard of care, and in conformity with professional standards in the field. The [employer] makes no representations or warranties, express or implied, including, but not limited to, any implied warranty of merchantability and/or fitness for a particular purpose, with respect to such information and specifically disclaims all such warranties. Users are advised that decisions regarding drug therapy are complex medical decisions requiring the independent, informed decision of an appropriate health care transition mgr, and the information is provided for informational purposes only. The entire monograph for a drug should be reviewed for a thorough understanding of the drug's actions, uses and side effects. The [employer] does not endorse or recommend the use of any drug.The information is not a substitute for medical care. AHFS?? Patient Medication Information?. ?? Copyright, 2023. The [employer]??, [address], [address], [place], [place]. All Rights Reserved. Duplication for commercial use must be authorized by [facility]. Selected Revisions: December 27, 2015. AHFS?? Patient Medication Information?. ?? Copyright, 2024 * Kaykaynatasha Chester Little RN - 04/04/2025 10:24 AM EDT 1087 Oxycodone Oral Tablet, Immediate Release Brand Names: Oxaydo, Roxicodone What is this medicine? Oxycodone (uw-u-YFW-done) is an opioid pain reliever. It is used to treat moderate to severe pain. What should I tell my health care provider before I take this medicine? They need to know if you have any of these conditions: ? Chase's disease ? Brain tumor or head injury [...] a special medication guide each time you olive picker this medicine. ? Overdosage: Taking too [...] should report to your doctor or health care transition mgr as soon as possible: ? allergic reactions [...] attention (report to your doctor or health care transition mgr if they continue or are bothersome): ? constipation ? dry mouth ? itching ? nausea, vomiting ? upset stomach This list may not describe all possible side effects. Call your doctor for medical advice about side effects. You may report side effects to FDA at 3-802-ASO-1944. Where should I keep my medicine? This [...] location. To find a disposal location, visit [facility]/[place]. If you cannot take unused medicine to [...] from the original note were not included. [id number] Methocarbamol Brand Name(s): Robaxin??; also available generically [...] of all of the prescription and nonprescription (yrap-esc-agmlgyi) medicines you are taking, as well as [...] or pharmacist about specific clinical use. The [employer] represents that the information provided hereunder was formulated with a reasonable standard of care, and in conformity with professional standards in the field. The [employer] makes no representations or warranties, express or implied, including, but not limited to, any implied warranty of merchantability and/or fitness for a particular purpose, with respect to such information and specifically disclaims all such warranties. Users are advised that decisions regarding drug therapy are complex medical decisions requiring the independent, informed decision of an appropriate health care transition mgr, and the information is provided for informational purposes only. The entire monograph for a drug should be reviewed for a thorough understanding of the drug's actions, uses and side effects. The [employer] does not endorse or recommend the use of any drug.The information is not a substitute for medical care. AHFS?? Patient Medication Information?. ?? Copyright, 2023. The [employer]??, [address], [address], [place], [place]. All Rights Reserved. Duplication for commercial use must be authorized by [facility]. Selected Revisions: May 28, 2017. AHFS?? Patient Medication Information?. ?? Copyright, 2024 * Neida Garland - Chester Cuevas RN - 04/04/2025 10:23 AM EDT Images from the original note were not included. [id number] Acetaminophen Brand Name(s): Actamin??, Feverall??, Panadol??, Tempra Quicklets??, Tylenol??, Dayquil?? (as a combination product containing Acetaminophen, Dextromethorphan, Pseudoephedrine), NyQuil Cold/Flu Relief?? (as a combination product containing Acetaminophen, Dextromethorphan, Doxylamine), Percocet?? (as a combination product containing Acetaminophen, Oxycodone) APAP, A-lmccmy-shuu-aminophenol, Paracetamol ?? This branded product is no [...] measuring cup or syringe provided by the corporation officer to measure each dose of the solution [...] of all of the prescription and nonprescription (qxgw-isa-pfmwevq) medicines you are taking, as well as [...] or pharmacist about specific clinical use. The [employer] represents that the information provided hereunder was formulated with a reasonable standard of care, and in conformity with professional standards in the field. The [employer] makes no representations or warranties, express or implied, including, but not limited to, any implied warranty of merchantability and/or fitness for a particular purpose, with respect to such information and specifically disclaims all such warranties. Users are advised that decisions regarding drug therapy are complex medical decisions requiring the independent, informed decision of an appropriate health care transition mgr, and the information is provided for informational purposes only. The entire monograph for a drug should be reviewed for a thorough understanding of the drug's actions, uses and side effects. The [employer] does not endorse or recommend the use of any drug.The information is not a substitute for medical care. AHFS?? Patient Medication Information?. ?? Copyright, 2023. The [employer]??, [address], [address], [place], [place]. All Rights Reserved. Duplication for commercial use must be authorized by [facility]. Selected Revisions: June 28, 2023. AHFS?? Patient Medication Information?. ?? Copyright, 2024 * Discharge Summary - Everett Marie DO - 04/04/2025 9:13 AM EDT Hospitalization Admit Date/Time: 03/29/2025 9:43 AM Admitting Attending: Ирина Lopez Discharge Date: 04/04/2025 Discharge Attending Physician: Ирина Lopez MD PCP name and Address: Casa Phillips MD [address] / [place] [address] Referring provider name and address: No referring [...] Your Medications These medications were sent to [facility] - [place], [place] - [address] [facility] [id number] acetaminophen 500 MG tablet methocarbamol 500 MG [...] Clinic discharge # - For urgent questions/concerns: [facility] hotline: , option 4 - ask for the thoracic surgeon pharmacy operations coordinator. Outpatient Follow-Up Future Appointments Date Time Provider Department Center 04/06/2025 10:40 AM Nikolai Naranjo [facility] Lin Test Results Pending At Discharge [...] Mobility Exam: Supine to Sit Level of Onsted: Stand-by assist Physical/Nonphysical Assist: Set-up required, HOB elevated Assistive Device: Bed rails Transfers Transfer Exam: Sit to stand Level of Onsted: Stand-by assist Physical/Nonphysical Assist: Verbal Cues, Nonverbal cues (demo/gestures), Minimal cues Assistive Device: Rollator Transfer Exam: Stand to Sit Level of Onsted: Stand-by assist Physical/Nonphysical Assist: Verbal Cues, Nonverbal [...] to areas of treatment space. Standardized Assessments [facility] 6-Clicks Mobility Assessment Difficulty patient has turning [...] 3-5 steps with a railing?: A little [facility] 6-Clicks Mobility Assessment Total : 21 Assessment [...] for assistance with DME. Referrals sent to [facility] for Rollator to be delivered to bedside today. * Progress Notes - Patricia Torres - 04/03/2025 11:49 AM EDT Occupational Therapy Treatment Patient Name: Cole Feliz Jr. Today's Date: 04/03/2025 OT Discharge Recommendations: Home with 24 hour assistance Equipment Recommended: Rollator Subjective Pt consent to tx Participants in Care Family/Caregiver Present: Yes Family/Caregiver: Adult Daughter Police Patrol Officer: Not Applicable Presentation Oxygen Therapy: None (Room [...] Mobility Exam: Supine to Sit Level of Onsted: Stand-by assist Physical/Nonphysical Assist: Set-up required, HOB elevated Transfers Transfer Exam: Sit to stand Level of Onsted: Stand-by assist Physical/Nonphysical Assist: Verbal Cues, Nonverbal cues (demo/gestures), Minimal cues Assistive Device: Rollator Transfer Exam: Stand to Sit Level of Onsted: Stand-by assist Physical/Nonphysical Assist: Verbal Cues, Nonverbal [...] self-assessment of RPE with use of modified GUILLERMO scale and to take rest as RPE reaches 6. Pt verbalizes understanding. Standardized Assessments [facility] 6-Click Daily Activities Help from Other: Don/Doff Regular Lower Body Clothings: Little Help From Other: Bathing: Little Help From Other: Toileting: Little Help From Other: Don/Doff Upper Body Clothings: Little Help From Other: Grooming: Little Help From Other: Eating Meals: None [facility] 6 Click - Daily Activities Score: 19 [...] from the original note were not included. [facility] Department of Surgery Section of Thoracic [...] disease, without long-term current use of insulin ([facility]) Microalbuminuria Tobacco use disorder Second hand smoke [...] disease, without long-term current use of insulin ([facility]) Anemia Electrolyte abnormality Plan: - Remove chest [...] Mobility Bed Mobility Exam: Scooting/Bridging Level of Onsted: Minimum assist (75% patient's effort) Physical/Nonphysical Assist: Verbal Cues, Nonverbal cues (demo/gestures), Minimal cues Bed Mobility Exam: Supine to Sit Level of Onsted: Minimum assist (75% patient's effort) Physical/Nonphysical Assist: Verbal Cues, Nonverbal cues (demo/gestures), HOB elevated Bed Mobility Exam: Sit to Supine Level of Onsted: Minimum assist (75% patient's effort) Physical/Nonphysical Assist: Verbal Cues, Minimal cues Transfers Transfer Exam: Sit to stand Level of Onsted: Minimum assist (75% patient's effort) Physical/Nonphysical Assist: Verbal Cues, Nonverbal cues (demo/gestures), Minimal cues Assistive Device: Rollator Transfer Exam: Stand to Sit Level of Onsted: Minimum assist (75% patient's effort) Physical/Nonphysical Assist: [...] Level of Mobility Ambulatory- household only Mobility Onsted Independent gait without device History of Falls [...] Ambulating in-room distances since last PT treatment. Police Patrol Officer (if applicable) OBJECTIVE & INTERVENTIONS PAIN Pt was without complaints of pain throughout the PT treatment. DELIRIUM SCREENING Curtis Agitation Sedation Scale (RASS): Alert and calm Feature 3: Altered Level of Consciousness: Negative THERAPEUTIC ACTIVITY Treatment Minutes 25 BED MOBILITY Level of Onsted Physical/Non- physical Assist Adaptive Equipment Utilized Scooting/ [...] with supine <> sit TRANSFERS Level of Onsted Physical/Non- physical Assist Adaptive Equipment Utilized Sit to Stand Minimum assist (75% patient's effort) Verbal Cues, Nonverbal cues (demo/gestures), Minimal cues Rollator Stand to sit Minimum assist (75% patient's effort) Verbal Cues, Nonverbal cues (demo/gestures), Minimal cues Rollator Interventions PT cued for proper hand placement and forward trunk lean prior to completing STS transfers BALANCE Postural Appearance Posture: Stooped posture Level of Onsted Balance Support Interventions Static Sit Standby assist [...] Left upper extremity support AMBULATION Level of Onsted Distance Adaptive Equipment Utilized Ambulation Contact guard [...] falling while progressing pt's distances Standardized Assessments [facility] 6-Clicks Mobility Assessment Difficulty patient has turning [...] climbing 3-5 steps with a railing?: Unable [facility] 6-Clicks Mobility Assessment Total : 16 ASSESSMENT [...] from the original note were not included. [facility] Department of Surgery Section of Thoracic [...] from the original note were not included. [facility] Department of Surgery Section of Thoracic [...] Cole Feliz Jr. 79 y.o. male CSN: [id number] Admission: 03/29/2025 9:43 AM Primary Problem: Non-small cell cancer of left lung (CMS/HCC) Investigation Division Lieutenant reviewed chart and spoke with the patient at bedside to complete this Initial Case Management Assessment. PCP: Casa Phillips MD Emergency Contact: Extended Emergency Contact Information Primary Emergency Contact: Elliot Feliz Relation: Son Police Patrol Officer needed? No Secondary Emergency Contact: Nora Feliz Relation: Daughter Police Patrol Officer needed? No Insurance: Primary Visit Coverage Payer Plan Sponsor Code Group Number Group Name [facility] [employer] [id number] Primary Visit Coverage Subscriber Subscriber ID Subscriber Name Subscriber SSN Subscriber Address [id number] [facility] [phone] [address] [place] [address] Patient information: Primary Caregiver: Self Support System: Immediate family Daily Living Activities: Functional Status: Independent Living Arrangements: Children Type of Residence: Private residence, Single Level [address] [address] Current DME: Equipment Currently Used at Home: [...] DME Provider: n/a Living Will/Advance Directive/Power of Or Scrub Tech /Guardian: Have you reviewed your Advance Directive [...] HH/HD/O2. PCP is Casa Phillips. Patient has [employer] Medicare insurance and uses [facility]. Family will assist and transport at [...] from the original note were not included. [facility] Department of Surgery Section of Thoracic [...] disease, without long-term current use of insulin ([facility]) Microalbuminuria Tobacco use disorder Second hand smoke [...] disease, without long-term current use of insulin ([facility]/HCC) Anemia Electrolyte abnormality Plan: [ ] OOBA, IS [ ] F/u CXR Replete calcium Blood for pressures CT to WS Start Flomax Regular CC2 diet Edited by: Vishal Elkins MD at 03/31/2025 1138 Vishal Elkins MD Thoracic Surgery Cosigned by Ирина Lopez MD at 03/31/2025 4:48 PM EDT Associated attestation - Ирина oLpez MD - 03/31/2025 4:48 PM EDT I [...] Level of Mobility: Ambulatory- household only Mobility Onsted: Independent gait without device History of Falls: [...] Mobility Bed Mobility Exam: Scooting/Bridging Level of Onsted: Maximum assist (25% patient's effort) (to scoot to EOB while seated) Physical/Nonphysical Assist: Verbal Cues, Nonverbal cues (demo/gestures) Bed Mobility Exam: Supine to Sit Level of Onsted: Maximum assist (25% patient's effort) Physical/Nonphysical Assist: Verbal Cues, Nonverbal cues (demo/gestures), Additional assist utilized for safety, HOB elevated Transfers Transfer Exam: Sit to stand Level of Onsted: Moderate assist (50% patient's effort) Physical/Nonphysical Assist: Verbal Cues, Nonverbal cues (demo/gestures), Additional assist utilized for safety Transfer Exam: Stand to Sit Level of Onsted: Moderate assist (50% patient's effort) Physical/Nonphysical Assist: [...] climbing 3-5 steps with a railing?: Unable [facility] 6-Clicks Mobility Assessment Total : 11 Assessment [...] Level of Mobility: Ambulatory- household only Mobility Onsted: Independent gait without device History of Falls: [...] Mobility Bed Mobility Exam: Scooting/Bridging Level of Onsted: Maximum assist (25% patient's effort) (to scoot to EOB while seated) Physical/Nonphysical Assist: Verbal Cues, Nonverbal cues (demo/gestures) Bed Mobility Exam: Supine to Sit Level of Onsted: Maximum assist (25% patient's effort) Physical/Nonphysical Assist: Verbal Cues, Nonverbal cues (demo/gestures), Additional assist utilized for safety, HOB elevated Transfers Transfer Exam: Sit to stand Level of Onsted: Moderate assist (50% patient's effort) Physical/Nonphysical Assist: Verbal Cues, Nonverbal cues (demo/gestures), Additional assist utilized for safety Transfer Exam: Stand to Sit Level of Onsted: Moderate assist (50% patient's effort) Physical/Nonphysical Assist: [...] continued education to improve carryover. Standardized Assessments [facility] 6-Click Daily Activities Help from Other: Don/Doff Regular Lower Body Clothings: A lot Help From Other: Bathing: A lot Help From Other: Toileting: A lot Help From Other: Don/Doff Upper Body Clothings: Little Help From Other: Grooming: Little Help From Other: Eating Meals: None [facility] 6 Click - Daily Activities Score: 16 [...] from the original note were not included. [facility] Department of Surgery Section of Thoracic [...] PM EDT Operative Note Date: 03/29/25 Location: [place] [facility] Name: Cole Feliz , : 1945, Diagnoses: Pre-op Diagnosis Non-small cell cancer of left lung (CMS/HCC) Post-op Diagnosis Non-small cell cancer of left lung (CMS/HCC) Procedure(s): Bronchoscopy, left VATS converted to thoracotomy, left upper lobectomy, mediastinal lymph node dissection, intercostal nerve blocks Attending Surgeon(s): * Ирина Lopez - Primary Senior Accounting Associate(s): * Carl Hamlin MD - Resident - [...] spaces under direct visualization. A single 24 Yi chest tube was placed through the camera [...] MD - 03/29/2025 * H&P - Carl Hamlin MD - 03/29/2025 12:55 PM EDT Images [...] 2024. He underwent EBUS w/ FNA of HEIN nodule on 01/28/[address] Parker and [...] responses Results Review {Vanishing Link Review Results :[id number] I have reviewed the latest lab and [...] card, photo ID, along with power of operations leader, guardianship or advanced directives if applicable Do [...] [facility] Head[facility] Neck [facility] Respiratory [address] [facility], [address] [place] [address] Nikolai Naranjo MD [address] [facility] Lorin Avila [facility] [address] [place] [address] documented as of this encounter Procedures Procedure [...] Non-small cell cancer of left lung (CMS/HCC) ND THORACOSCOPY SURG LOBECTOMY 03/29/2025 1:24 PM EDT [...] Comment 04/04/2025 8:36 AM EDT [facility]ARE [facility] Clerical Secretary ID Sandy Kramer 04/04/2025 8:36 AM EDT [facility] Device ID [id number] 04/04/2025 8:36 AM EDT [facility]ALTHCARE LAB Specimen Type POC Capillary 04/04/2025 8:36 AM EDT [facility] Blood Capillary blood specimen / Unknown 04/04/2025 8:34 AM EDT 04/04/2025 8:36 AM EDT Ирина Lopez MD LAB POINT OF CARE TE ST DOCKED DEVICE UNSOLICITED RESULTS Final Result [facility] [address] [place], [place] [id number] * XR Chest 1 View (04/04/2025 5:20 [...] MD on 04/04/2025 10:20 AM Scarlet Gamboa [employer] IMG XR PROCEDURES Final Resul t * (ABNORMAL) Renal Function Panel, Plasma (04/04/2025 2:19 AM EDT) Glucose, Plasma 166(H) 74 - 99 mg/dL 04/04/2025 2:53 AM EDT [facility] BUN, Plasma 18 8 - 23 mg/dL 04/04/2025 2:53 AM EDT [facility] Creatinine, Plasma 1.31(H) 0.70 - 1.20 mg/dL 04/04/2025 2:53 AM EDT [facility] BUN/Creatinine Ratio 14 04/04/2025 2:53 AM EDT [facility] Sodium, Plasma 136 136 - 145 mmol/L 04/04/2025 2:53 AM EDT [facility] Potassium, Plasma 4.3 3.6 - 4.9 mmol/L 04/04/2025 2:53 AM EDT [facility] Chloride, Plasma 103 97 - 107 mmol/L 04/04/2025 2:53 AM EDT [facility] CO2, Plasma 22 22 - 29 mmol/L 04/04/2025 2:53 AM EDT [facility] Anion Gap 11 6 - 16 mmol/L 04/04/2025 2:53 AM EDT [facility] Total Calcium, Plasma 8.2(L) 8.9 - 10.2 mg/dL 04/04/2025 2:53 AM EDT [facility] Phosphorus, Plasma 3.1 2.5 - 4.5 mg/dL 04/04/2025 2:53 AM EDT [facility] Albumin, Plasma 3.0(L) 3.5 - 5.2 g/dL 04/04/2025 2:53 AM EDT [facility] eGFRcr 55.7 mL/min/1.7 3m*2 04/04/2025 2:53 AM EDT [facility] Comment:Reported eGFRcr in m L/min/1.73m2 is based the CKD-EPI 2020 equation that does not use a race coefficient. Blood Venous blood specimen / Unknown Venipuncture / Unknown 04/04/2025 2:19 AM EDT 04/04/2025 2:24 AM EDT Ирина Lopez MD LAB BLOOD ORDERABLES Final R esult Performing Organization Address City/[facility]/ZIP Co de Phone Number [facility] [address] [place] [address] * (ABNORMAL) Magnesium, Plasma (04/04/2025 2:19 AM EDT) Magnesium, Plasma 1.8(L) 1.9 - 2.4 mg/dL 04/04/2025 2:53 AM EDT [facility] Blood Venous blood specimen / Unknown Venipuncture / Unknown 04/04/2025 2:19 AM EDT 04/04/2025 2:24 AM EDT Ирина Lopez MD LAB BLOOD ORDERABLES Final R esult Performing Organization Address City/[facility]/ZIP Co de Phone Number [facility] [address] [place] [address] * (ABNORMAL) CBC W/O Differential (04/04/2025 2:19 AM EDT) WBC Count 5.44 3.70 - 10.30 10*3/uL LAB HEMATOLOGY METHOD 04/04/2025 2:33 AM EDT [facility] RBC Count 3.77(L) 4.60 - 6.10 10*6/uL LAB HEMATOLOGY METHOD 04/04/2025 2:33 AM EDT [facility] HGB 10.7(L) 13.7 - 17.5 g/dL LAB HEMATOLOGY METHOD 04/04/2025 2:33 AM EDT [facility] HCT 32.4(L) 40.0 - 51.0 % LAB HEMATOLOGY METHOD 04/04/2025 2:33 AM EDT [facility] Platelet Count 220 155 - 369 10*3/uL LAB HEMATOLOGY METHOD 04/04/2025 2:33 AM EDT [facility] MCV 86 79 - 98 fL LAB HEMATOLOGY METHOD 04/04/2025 2:33 AM EDT [facility] MCH 28.4 26.0 - 32.0 pg LAB HEMATOLOGY METHOD 04/04/2025 2:33 AM EDT [facility] MCHC 33.0 30.7 - 35.5 g/dL LAB HEMATOLOGY METHOD 04/04/2025 2:33 AM EDT [facility] RDW 14.7(H) 11.5 - 14.5 % LAB HEMATOLOGY METHOD 04/04/2025 2:33 AM EDT [facility] MPV 9.1 8.8 - 12.5 fL LAB HEMATOLOGY METHOD 04/04/2025 2:33 AM EDT [facility] nRBC 0.4(H) <=0.0 per 100 WBCs LAB HEMATOLOGY METHOD 04/04/2025 2:33 AM EDT [facility] Blood Venous blood specimen / Unknown Venipuncture / Unknown 04/04/2025 2:19 AM EDT 04/04/2025 2:24 AM EDT us Ирина Lopez MD LAB BLOOD ORDERABLES Final R esult [facility] [address] [place] [address] * (ABNORMAL) POCT glucose meter (04/03/2025 8:25 PM EDT) [facility] POCT Glucose 194(H) 74 - 99 mg/dL [...] Comment 04/03/2025 8:28 PM EDT [facility]ALTH[facility]ARE LAB Clerical Secretary ID Obdulio Navarro 04/03/2025 8:28 PM EDT [facility]ALTH[facility]ARE LAB Device ID [id number] 04/03/2025 8:28 PM EDT [facility] Specimen Type POC Capillary 04/03/2025 8:28 PM EDT [facility] Blood Capillary blood specimen / Unknown 04/03/2025 8:25 PM EDT 04/03/2025 8:28 PM EDT Ирина Lopez MD LAB POINT OF CARE TE ST DOCKED DEVICE UNSOLICITED RESULTS Final Result Performing Organization Address [facility] Co de Phone Number [facility] [address] [place] [address] * (ABNORMAL) POCT glucose meter (04/03/2025 5:27 PM EDT) [facility] POCT Glucose 138(H) 74 - 99 mg/dL [...] 04/03/2025 5:29 PM EDT [facility] Clerical Secretary ID Anayeli Castro 025 5:29 PM EDT [facility] Device ID [id number] 04/03/2025 5:29 PM EDT [facility] Specimen Type POC Capillary 04/03/2025 5:29 PM EDT [facility] Blood Capillary blood specimen / Unknown 04/03/2025 5:27 PM EDT 04/03/2025 5:29 PM EDT us Ирина Lopez MD LAB POINT OF CARE TE ST DOCKED DEVICE UNSOLICITED RESULTS Final Result [facility] [address] [place] [id number] * XR Chest 1 View (04/03/2025 1:09 [...] for testing. Comment 04/03/2025 12:17 PM EDT [facility] Clerical Secretary ID Anayeli Castro 025 12:17 PM EDT [facility] Device ID [id number] 04/03/2025 12:17 PM EDT [facility] Specimen Type POC Capillary 04/03/2025 12:17 PM EDT [facility] Blood Capillary blood specimen / Unknown 04/03/2025 12:15 PM EDT 04/03/2025 12:17 PM EDT Ирина Lopez MD LAB POINT OF CARE TE ST DOCKED DEVICE UNSOLICITED RESULTS Final Result Performing Organization Address City/State/[facility] Co de Phone Number [facility] [address] [place] [address] * (ABNORMAL) POCT glucose meter (04/03/2025 8:46 [...] 04/03/2025 8:48 AM EDT [facility] Clerical Secretary ID Anayeli Castro 025 8:48 AM EDT HEALTHCARE LAB Device ID [id number] 04/03/2025 8:48 AM EDT [facility]ARE LAB Specimen Type POC Capillary 04/03/2025 8:48 AM EDT [facility] Blood Capillary blood specimen / Unknown 04/03/2025 8:46 AM EDT 04/03/2025 8:48 AM EDT us Ирина Lopez MD LAB POINT OF CARE TE ST DOCKED DEVICE UNSOLICITED RESULTS Final Result [facility] [address] [place] [address] * XR Chest 1 View (04/03/2025 5:53 [...] on 04/03/2025 9:52 AM us Scarlet Gamboa [employer] IMG XR PROCEDURES Final Resul t * (ABNORMAL) Renal Function Panel, Plasma (04/03/2025 3:45 AM EDT) Glucose, Plasma 131(H) 74 - 99 mg/dL 04/03/2025 4:24 AM EDT [facility] BUN, Plasma 16 8 - 23 mg/dL 04/03/2025 4:24 AM EDT [facility] Creatinine, Plasma 1.34(H) 0.70 - 1.20 mg/dL 04/03/2025 4:24 AM EDT [facility] BUN/Creatinine Ratio 12 04/03/2025 4:24 AM EDT [facility] Sodium, Plasma 135(L) 136 - 145 mmol/L 04/03/2025 4:24 AM EDT [facility] Potassium, Plasma 4.9 3.6 - 4.9 mmol/L 04/03/2025 4:24 AM EDT [facility] Chloride, Plasma 103 97 - 107 mmol/L 04/03/2025 4:24 AM EDT [facility] CO2, Plasma 21(L) 22 - 29 mmol/L 04/03/2025 4:24 AM EDT [facility] Anion Gap 11 6 - 16 mmol/L 04/03/2025 4:24 AM EDT [facility] Total Calcium, Plasma 7.7(L) 8.9 - 10.2 mg/dL 04/03/2025 4:24 AM EDT [facility] Phosphorus, Plasma 2.2(L) 2.5 - 4.5 mg/dL 04/03/2025 4:24 AM EDT [facility] Albumin, Plasma 2.8(L) 3.5 - 5.2 g/dL 04/03/2025 4:24 AM EDT [facility] eGFRcr 54.2 mL/min/1.7 3m*2 04/03/2025 4:24 AM EDT [facility] Comment:Reported eGFRcr in m L/min/1.73m2 is based the CKD-EPI 2020 equation that does not use a race coefficient. Blood Venous blood specimen / Unknown Venipuncture / Unknown 04/03/2025 3:45 AM EDT 04/03/2025 3:54 AM EDT Ирина Lopez MD LAB BLOOD ORDERABLES Final R esult Performing Organization Address City/[facility]/ZIP Co de Phone Number [facility] [address] [place] [address] * Magnesium, Plasma (04/03/2025 3:45 AM EDT) [facility] Magnesium, Plasma 2.0 1.9 - 2.4 mg/dL 04/03/2025 4:24 AM EDT [facility] Blood Venous blood specimen / Unknown Venipuncture / Unknown 04/03/2025 3:45 AM EDT 04/03/2025 3:54 AM EDT Ирина Lopez MD LAB BLOOD ORDERABLES Final R esult Performing Organization Address City/[facility] Co de Phone Number [facility] [address] [place] [address] * (ABNORMAL) CBC W/O Differential (04/03/2025 3:45 AM EDT) WBC Count 6.54 3.70 - 10.30 10*3/uL LAB HEMATOLOGY METHOD 04/03/2025 4:09 AM EDT [facility] RBC Count 3.42(L) 4.60 - 6.10 10*6/uL LAB HEMATOLOGY METHOD 04/03/2025 4:09 AM EDT [facility] HGB 9.8(L) 13.7 - 17.5 g/dL LAB HEMATOLOGY METHOD 04/03/2025 4:09 AM EDT [facility] HCT 29.2(L) 40.0 - 51.0 % LAB HEMATOLOGY METHOD 04/03/2025 4:09 AM EDT [facility] Platelet Count 209 155 - 369 10*3/uL LAB HEMATOLOGY METHOD 04/03/2025 4:09 AM EDT [facility] MCV 85 79 - 98 fL LAB HEMATOLOGY METHOD 04/03/2025 4:09 AM EDT [facility] MCH 28.7 26.0 - 32.0 pg LAB HEMATOLOGY METHOD 04/03/2025 4:09 AM EDT [facility] MCHC 33.6 30.7 - 35.5 g/dL LAB HEMATOLOGY METHOD 04/03/2025 4:09 AM EDT [facility] RDW 15.0(H) 11.5 - 14.5 % LAB HEMATOLOGY METHOD 04/03/2025 4:09 AM EDT [facility] MPV 9.4 8.8 - 12.5 fL LAB HEMATOLOGY METHOD 04/03/2025 4:09 AM EDT [facility] nRBC 0.0 <=0.0 per 100 WBCs LAB HEMATOLOGY METHOD 04/03/2025 4:09 AM EDT [facility] Blood Venous blood specimen / Unknown Venipuncture / Unknown 04/03/2025 3:45 AM EDT 04/03/2025 3:54 AM EDT us Ирина Lopez MD LAB BLOOD ORDERABLES Final R esult [facility] [address] [place] [address] * (ABNORMAL) POCT glucose meter (04/02/2025 8:16 PM EDT) [facility] POCT Glucose 154(H) 74 - 99 mg/dL [...] 04/02/2025 8:20 PM EDT [facility] Clerical Secretary ID Jil Ruiz 8:20 PM EDT HEALTHCARE LAB Device ID [id number] 04/02/2025 8:20 PM EDT [facility]ALTH[facility]ARE LAB Specimen Type POC Capillary 04/02/2025 8:20 PM EDT [facility] Blood Capillary blood specimen / Unknown 04/02/2025 8:16 PM EDT 04/02/2025 8:20 PM EDT Ирина Lopez MD LAB POINT OF CARE TE ST DOCKED DEVICE UNSOLICITED RESULTS Final Result Performing Organization Address City/[facility] Co de Phone Number [facility]ARE LAB [address] [place] [address] * (ABNORMAL) POCT glucose meter (04/02/2025 5:20 PM EDT) [facility] POCT Glucose 122(H) 74 - 99 mg/dL [...] Comment 04/02/2025 5:22 PM EDT [facility]ALTH[facility]ARE LAB Clerical Secretary ID Kenn Cabrera 04/02/2025 5:22 PM EDT HEALTHCARE LAB Device ID [id number] 04/02/2025 5:22 PM EDT [facility] LAB Specimen Type POC Capillary 04/02/2025 5:22 PM EDT [facility] Blood Capillary blood specimen / Unknown 04/02/2025 5:20 PM EDT 04/02/2025 5:22 PM EDT us Ирина Lopez MD LAB POINT OF CARE TE ST DOCKED DEVICE UNSOLICITED RESULTS Final Result Performing Organization Address City/[facility] Co de Phone Number [facility] [address] [place] [address] * (ABNORMAL) CBC W/O Differential (04/02/2025 3:02 PM EDT) [facility] WBC Count 6.02 3.70 - 10.30 10*3/uL LAB HEMATOLOGY METHOD 04/02/2025 3:27 PM EDT [facility] RBC Count 3.09(L) 4.60 - 6.10 10*6/uL LAB HEMATOLOGY METHOD 04/02/2025 3:27 PM EDT [facility] HGB 8.9(L) 13.7 - 17.5 g/dL LAB HEMATOLOGY METHOD 04/02/2025 3:27 PM EDT [facility] HCT 26.9(L) 40.0 - 51.0 % LAB HEMATOLOGY METHOD 04/02/2025 3:27 PM EDT [facility] Platelet Count 129(L) 155 - 369 10*3/uL LAB HEMATOLOGY METHOD 04/02/2025 3:27 PM EDT [facility] MCV 87 79 - 98 fL LAB HEMATOLOGY METHOD 04/02/2025 3:27 PM EDT [facility] MCH 28.8 26.0 - 32.0 pg LAB HEMATOLOGY METHOD 04/02/2025 3:27 PM EDT [facility] MCHC 33.1 30.7 - 35.5 g/dL LAB HEMATOLOGY METHOD 04/02/2025 3:27 PM EDT [facility] RDW 14.4 11.5 - 14.5 % LAB HEMATOLOGY METHOD 04/02/2025 3:27 PM EDT [facility] MPV 9.9 8.8 - 12.5 fL LAB HEMATOLOGY METHOD 04/02/2025 3:27 PM EDT [facility] nRBC 0.0 <=0.0 per 100 WBCs LAB HEMATOLOGY METHOD 04/02/2025 3:27 PM EDT [facility] Blood Venous blood specimen / Unknown Venipuncture / Unknown 04/02/2025 3:02 PM EDT 04/02/2025 3:20 PM EDT us Scarlet Gamboa APRN LAB BLOOD ORDERABLES Final Re sult [facility] [address] [place] [address] * Transfuse RBC (04/02/2025 2:53 PM EDT) [...] Comment 04/02/2025 12:30 PM EDT HEALTHCARE LAB Clerical Secretary ID Kenn Cabrera 04/02/2025 12:30 PM EDT HEALTHCARE LAB Device ID [id number] 04/02/2025 12:30 PM EDT [facility]ALTH[facility]ARE LAB Specimen Type POC Capillary 04/02/2025 12:30 PM EDT [facility] Blood Capillary blood specimen / Unknown 04/02/2025 12:28 PM EDT 04/02/2025 12:30 PM EDT Ирина Lopez MD LAB POINT OF CARE TE ST DOCKED DEVICE UNSOLICITED RESULTS Final Result Performing Organization Address City/State/[facility] Phone Number HEALTHCARE LAB [address] [place] [address] * Transfuse RBC (04/02/2025 12:16 PM EDT) [...] glucose meter (04/02/2025 8:31 AM EDT) Pathologist [facility] POCT Glucose 127(H) 74 - 99 mg/dL [...] Comment 04/02/2025 8:33 AM EDT HEALTHCARE LAB Clerical Secretary ID Martha Sena 04/02/2025 8:33 AM EDT HEALTHCARE LAB Device ID [id number] 04/02/2025 8:33 AM EDT HEALTHCARE LAB Specimen Type POC Capillary 04/02/2025 8:33 AM EDT [facility] Blood Capillary blood specimen / Unknown 04/02/2025 8:31 AM EDT 04/02/2025 8:33 AM EDT us Ирина Lopez MD LAB POINT OF CARE TE ST DOCKED DEVICE UNSOLICITED RESULTS Final Result [facility] [address] [place] [address] * Prepare Leukocyte Reduced RBC: 2 Units (04/02/2025 7:58 AM EDT) Product Code [id number] [facility] Dispense Status Transfused [facility] Blood Expiration Date [id number] [facility] Unit Number [id number] [facility] Product Blood Type 6200 [facility] Blood Type A+ [facility] Crossmatch Compatible [facility] Product Code [id number] [facility] D [facility] Dispense Status Transfused [facility] Blood Expiration Date [id number] [facility] Unit Number [id number] [facility] LOOD B[facility] Product Blood Type 6200 [facility] Blood Type A+ [facility] Crossmatch Compatible [facility] Other us Scarlet Gamboa APRN BLOOD BANK PRODUCT ORDERABLES Final Result Performing Organization Address [facility] de Phone Number BLOOD BANK [address] [place] [address], [place] * Type and Screen (04/02/2025 6:36 [...] ORDERABL ES Final Result Performing Organization Address [facility] de Phone Number BLOOD BANK [address] [place] [address], [place] * XR Chest 1 View (04/02/2025 [...] - 99 mg/dL 04/02/2025 5:51 AM EDT [facility] BUN, Plasma 16 8 - 23 mg/dL 04/02/2025 5:51 AM EDT [facility] Creatinine, Plasma 1.47(H) 0.70 - 1.20 mg/dL 04/02/2025 5:51 AM EDT [facility] BUN/Creatinine Ratio 11 04/02/2025 5:51 AM EDT [facility] Sodium, Plasma 137 136 - 145 mmol/L 04/02/2025 5:51 AM EDT [facility] Potassium, Plasma 4.3 3.6 - 4.9 mmol/L 04/02/2025 5:51 AM EDT [facility] Chloride, Plasma 104 97 - 107 mmol/L 04/02/2025 5:51 AM EDT [facility] CO2, Plasma 24 22 - 29 mmol/L 04/02/2025 5:51 AM EDT [facility] Anion Gap 9 6 - 16 mmol/L 04/02/2025 5:51 AM EDT [facility] Total Calcium, Plasma 7.8(L) 8.9 - 10.2 mg/dL 04/02/2025 5:51 AM EDT [facility] Phosphorus, Plasma 2.6 2.5 - 4.5 mg/dL 04/02/2025 5:51 AM EDT [facility] Albumin, Plasma 2.8(L) 3.5 - 5.2 g/dL 04/02/2025 5:51 AM EDT [facility] eGFRcr 48.5 mL/min/1.7 3m*2 04/02/2025 5:51 AM EDT [facility] Comment:Reported eGFRcr in m L/min/1.73m2 is based the CKD-EPI 2020 equation that does not use a race coefficient. Blood Venous blood specimen / Unknown Venipuncture / Unknown 04/02/2025 4:32 AM EDT 04/02/2025 5:20 AM EDT us Ирина Lopez MD LAB BLOOD ORDERABLES Final R esult [facility] [address] [place] [address] * Magnesium, Plasma (04/02/2025 4:32 AM EDT) Magnesium, Plasma 1.9 1.9 - 2.4 mg/dL 04/02/2025 5:51 AM EDT [facility] Blood Venous blood specimen / Unknown Venipuncture / Unknown 04/02/2025 4:32 AM EDT 04/02/2025 5:20 AM EDT us Ирина Lopez MD LAB BLOOD ORDERABLES Final R esult [facility] [address] [place] [address] * (ABNORMAL) CBC W/O Differential (04/02/2025 4:32 AM EDT) WBC Count 6.22 3.70 - 10.30 10*3/uL LAB HEMATOLOGY METHOD 04/02/2025 5:31 AM EDT [facility] RBC Count 2.14(L) 4.60 - 6.10 10*6/uL LAB HEMATOLOGY METHOD 04/02/2025 5:31 AM EDT [facility] HGB 6.4(LL) 13.7 - 17.5 g/dL LAB HEMATOLOGY METHOD 04/02/2025 5:31 AM EDT [facility] HCT 19.0(LL) 40.0 - 51.0 % LAB HEMATOLOGY METHOD 04/02/2025 5:31 AM EDT [facility] Platelet Count 180 155 - 369 10*3/uL LAB HEMATOLOGY METHOD 04/02/2025 5:31 AM EDT [facility] MCV 89 79 - 98 fL LAB HEMATOLOGY METHOD 04/02/2025 5:31 AM EDT [facility] MCH 29.9 26.0 - 32.0 pg LAB HEMATOLOGY METHOD 04/02/2025 5:31 AM EDT [facility] MCHC 33.7 30.7 - 35.5 g/dL LAB HEMATOLOGY METHOD 04/02/2025 5:31 AM EDT [facility] RDW 14.0 11.5 - 14.5 % LAB HEMATOLOGY METHOD 04/02/2025 5:31 AM EDT [facility] MPV 9.9 8.8 - 12.5 fL LAB HEMATOLOGY METHOD 04/02/2025 5:31 AM EDT [facility] nRBC 0.0 <=0.0 per 100 WBCs LAB HEMATOLOGY METHOD 04/02/2025 5:31 AM EDT [facility] Blood Venous blood specimen / Unknown Venipuncture / Unknown 04/02/2025 4:32 AM EDT 04/02/2025 5:20 AM EDT Ирина Lopez MD LAB BLOOD ORDERABLES Final R esult Performing Organization Address City/[facility]/ZIP Co de Phone Number [facility] [address] [place] [address] * (ABNORMAL) POCT glucose meter (04/01/2025 8:14 [...] Comment 04/01/2025 8:16 PM EDT HEALTHCARE LAB Clerical Secretary ID ShkrJil [email or web address] 8:16 PM EDT [facility] Device ID [id number] 04/01/2025 8:16 PM EDT [facility] Specimen Type POC Capillary 04/01/2025 8:16 PM EDT [facility] Blood Capillary blood specimen / Unknown 04/01/2025 8:14 PM EDT 04/01/2025 8:16 PM EDT Ирина Lopez MD LAB POINT OF CARE TE ST DOCKED DEVICE UNSOLICITED RESULTS Final Result Performing Organization Address City/[facility]/ZIP Co de Phone Number HEALTHCARE LAB [address] [place] [address] * (ABNORMAL) POCT glucose meter (04/01/2025 5:26 [...] Comment 04/01/2025 5:29 PM EDT [facility]ALTHCARE LAB Clerical Secretary ID Kenn Cabrera 04/01/2025 5:29 PM EDT [facility] Device ID [id number] 04/01/2025 5:29 PM EDT [facility] Specimen Type POC Capillary 04/01/2025 5:29 PM EDT [facility] Blood Capillary blood specimen / Unknown 04/01/2025 5:26 PM EDT 04/01/2025 5:29 PM EDT us Ирина Lopez MD LAB POINT OF CARE TE ST DOCKED DEVICE UNSOLICITED RESULTS Final Result Performing Organization Address City/State/[facility] Co de Phone Number [facility]ARE [facility] [address] [place] [address] * (ABNORMAL) POCT glucose meter (04/01/2025 12:49 PM EDT) [facility] POCT Glucose 162(H) 74 - 99 mg/dL [...] Comment 04/01/2025 12:51 PM EDT [facility]ARE [facility] Clerical Secretary ID Kenn Cabrera 04/01/2025 12:51 PM EDT [facility]ARE [facility] Device ID [id number] 04/01/2025 12:51 PM EDT [facility] Specimen Type POC Capillary 04/01/2025 12:51 PM EDT [facility] Blood Capillary blood specimen / Unknown 04/01/2025 12:49 PM EDT 04/01/2025 12:51 PM EDT us Ирина Lopez MD LAB POINT OF CARE TE ST DOCKED DEVICE UNSOLICITED RESULTS Final Result Performing Organization Address [facility] de Phone Number HEALTHCARE LAB [address] [place] [address] * (ABNORMAL) POCT glucose meter (04/01/2025 8:43 [...] 04/01/2025 8:45 AM EDT [facility] Clerical Secretary ID Kenn Cabrera 04/01/2025 8:45 AM EDT [facility] Device ID [id number] 04/01/2025 8:45 AM EDT [facility] Specimen Type POC Capillary 04/01/2025 8:45 AM EDT [facility] Blood Capillary blood specimen / Unknown 04/01/2025 8:43 AM EDT 04/01/2025 8:45 AM EDT Ирина Lopez MD LAB POINT OF CARE TE ST DOCKED DEVICE UNSOLICITED RESULTS Final Result Performing Organization Address [facility] de Phone Number [facility] [address] [place] [address] * XR Chest 1 View (04/01/2025 5:41 [...] - 99 mg/dL 04/01/2025 4:24 AM EDT [facility] BUN, Plasma 20 8 - 23 mg/dL 04/01/2025 4:24 AM EDT [facility] Creatinine, Plasma 1.67(H) 0.70 - 1.20 mg/dL 04/01/2025 4:24 AM EDT [facility] BUN/Creatinine Ratio 12 04/01/2025 4:24 AM EDT [facility] Sodium, Plasma 136 136 - 145 mmol/L 04/01/2025 4:24 AM EDT [facility] Potassium, Plasma 4.3 3.6 - 4.9 mmol/L 04/01/2025 4:24 AM EDT [facility] Chloride, Plasma 101 97 - 107 mmol/L 04/01/2025 4:24 AM EDT [facility] CO2, Plasma 24 22 - 29 mmol/L 04/01/2025 4:24 AM EDT [facility] Anion Gap 11 6 - 16 mmol/L 04/01/2025 4:24 AM EDT [facility] Total Calcium, Plasma 8.1(L) 8.9 - 10.2 mg/dL 04/01/2025 4:24 AM EDT [facility] Phosphorus, Plasma 2.5 2.5 - 4.5 mg/dL 04/01/2025 4:24 AM EDT [facility] Albumin, Plasma 3.0(L) 3.5 - 5.2 g/dL 04/01/2025 4:24 AM EDT [facility] eGFRcr 41.6 mL/min/1.7 3m*2 04/01/2025 4:24 AM EDT [facility] Comment:Reported eGFRcr in m L/min/1.73m2 is based the CKD-EPI 2020 equation that does not use a race coefficient. Blood Venous blood specimen / Unknown Venipuncture / Unknown 04/01/2025 2:12 AM EDT 04/01/2025 3:21 AM EDT Ирина Lopez MD LAB BLOOD ORDERABLES Final R esult [facility] [address] [place] [address] * Magnesium, Plasma (04/01/2025 2:12 AM EDT) Magnesium, Plasma 2.4 1.9 - 2.4 mg/dL 04/01/2025 4:24 AM EDT [facility] Blood Venous blood specimen / Unknown Venipuncture / Unknown 04/01/2025 2:12 AM EDT 04/01/2025 3:21 AM EDT Ирина Lopez MD LAB BLOOD ORDERABLES Final R esult [facility] [address] [place] [address] * (ABNORMAL) CBC W/O Differential (04/01/2025 2:12 AM EDT) WBC Count 6.25 3.70 - 10.30 10*3/uL LAB HEMATOLOGY METHOD 04/01/2025 3:29 AM EDT [facility] RBC Count 2.59(L) 4.60 - 6.10 10*6/uL LAB HEMATOLOGY METHOD 04/01/2025 3:29 AM EDT [facility] HGB 7.6(L) 13.7 - 17.5 g/dL LAB HEMATOLOGY METHOD 04/01/2025 3:29 AM EDT [facility] HCT 22.9(L) 40.0 - 51.0 % LAB HEMATOLOGY METHOD 04/01/2025 3:29 AM EDT [facility] Platelet Count 163 155 - 369 10*3/uL LAB HEMATOLOGY METHOD 04/01/2025 3:29 AM EDT [facility] MCV 88 79 - 98 fL LAB HEMATOLOGY METHOD 04/01/2025 3:29 AM EDT [facility] MCH 29.3 26.0 - 32.0 pg LAB HEMATOLOGY METHOD 04/01/2025 3:29 AM EDT [facility] MCHC 33.2 30.7 - 35.5 g/dL LAB HEMATOLOGY METHOD 04/01/2025 3:29 AM EDT [facility] RDW 14.1 11.5 - 14.5 % LAB HEMATOLOGY METHOD 04/01/2025 3:29 AM EDT [facility] MPV 10.0 8.8 - 12.5 fL LAB HEMATOLOGY METHOD 04/01/2025 3:29 AM EDT [facility] nRBC 0.0 <=0.0 per 100 WBCs LAB HEMATOLOGY METHOD 04/01/2025 3:29 AM EDT [facility] Blood Venous blood specimen / Unknown Venipuncture / Unknown 04/01/2025 2:12 AM EDT 04/01/2025 3:21 AM EDT us Ирина Lopez MD LAB BLOOD ORDERABLES Final R esult [facility] [address] [place] [address] * (ABNORMAL) POCT glucose meter (03/31/2025 8:19 [...] Comment 03/31/2025 8:21 PM EDT [facility]ALTH[facility]ARE LAB Clerical Secretary ID Jil Ruiz 8:21 PM EDT [facility]ALTH[facility]ARE LAB Device ID [id number] 03/31/2025 8:21 PM EDT [facility]ARE LAB Specimen Type POC Capillary 03/31/2025 8:21 PM EDT [facility] Blood Capillary blood specimen / Unknown 03/31/2025 8:19 PM EDT 03/31/2025 8:21 PM EDT us Ирина Lopez MD LAB POINT OF CARE TE ST DOCKED DEVICE UNSOLICITED RESULTS Final Result Performing Organization Address City/State/[facility] Co de Phone Number HEALTHCARE LAB [address] [place] [address] * (ABNORMAL) POCT glucose meter (03/31/2025 5:24 PM EDT) [facility] POCT Glucose 194(H) 74 - 99 mg/dL [...] 03/31/2025 5:26 PM EDT [facility] Clerical Secretary ID Kenn Cabrera 03/31/2025 5:26 PM EDT HEALTHCARE LAB Device ID [id number] 03/31/2025 5:26 PM EDT HEALTHCARE LAB Specimen Type POC Capillary 03/31/2025 5:26 PM EDT [facility]ALTH[facility]ARE LAB Blood Capillary blood specimen / Unknown 03/31/2025 5:24 PM EDT 03/31/2025 5:26 PM EDT us Ирина Lopez MD LAB POINT OF CARE TE ST DOCKED DEVICE UNSOLICITED RESULTS Final Result [facility] [address] [place] [address] * Transfuse RBC (03/31/2025 3:56 PM EDT) Scarlet Gamboa [employer] BLOOD TRANSFUSION ORDERABLES Final Result * Transfuse RBC: 1 Units (03/31/2025 3:56 PM EDT) Scarlet Gamboa [employer] BLOOD TRANSFUSION ORDERABLES Final Result * XR [...] 03/31/2025 1:30 PM us Scarlet A Gamboa [employer] IMG XR PROCEDURES Final Resul t * [...] for testing. Comment 03/31/2025 12:34 PM EDT [facility] Clerical Secretary ID Kenn Cabrera 03/31/2025 12:34 PM EDT [facility] Device ID [id number] 03/31/2025 12:34 PM EDT [facility] Specimen Type POC Capillary 03/31/2025 12:34 PM EDT [facility] Blood Capillary blood specimen / Unknown 03/31/2025 12:31 PM EDT 03/31/2025 12:34 PM EDT us Ирина Lopez MD LAB POINT OF CARE TE ST DOCKED DEVICE UNSOLICITED RESULTS Final Result Performing Organization Address City/State/[facility] Co de Phone Number HEALTHCARE LAB [address] [place] [address] * (ABNORMAL) POCT glucose meter (03/31/2025 9:08 AM EDT) POCT Glucose 173(H) 74 - 99 mg/dL 03/31/2025 9:09 AM EDT [facility] Comment:Accuracy of a glucos e result [...] 03/31/2025 9:09 AM EDT [facility] Clerical Secretary ID Kenn Cabrera 03/31/2025 9:09 AM EDT HEALTHCARE LAB Device ID [id number] 03/31/2025 9:09 AM EDT [facility]ALTHCARE LAB Specimen Type POC Capillary 03/31/2025 9:09 AM EDT [facility]ALTH[facility]ARE LAB Blood Capillary blood specimen / Unknown 03/31/2025 9:08 AM EDT 03/31/2025 9:09 AM EDT us Ирина Lopez MD LAB POINT OF CARE TE ST DOCKED DEVICE UNSOLICITED RESULTS Final Result Performing Organization Address City/[facility]/ZIP Co de Phone Number [facility] [address] [place] [address] * Prepare Leukocyte Reduced RBC: 1 Units (03/31/2025 9:02 AM EDT) Product Code [id number] CH BLOO D BANK Dispense Status Transfused BLOOD BANK Blood Expiration Date [id number] BLOOD BANK Unit Number [id number] CH B LOOD BANK Product Blood Type 6200 BLOOD BANK Blood Type A+ CH BLOOD BANK Crossmatch Compatible BLOOD BANK Other Scarlet Gamboa APRN BLOOD BANK PRODUCT ORDERABLES Final Result Performing Organization Address City/[facility] Co de Phone Number BLOOD BANK [address] [place] [address], * XR Chest 1 View (03/31/2025 6:04 [...] - 99 mg/dL 03/31/2025 3:13 AM EDT [facility] BUN, Plasma 21 8 - 23 mg/dL 03/31/2025 3:13 AM EDT [facility] Creatinine, Plasma 1.59(H) 0.70 - 1.20 mg/dL 03/31/2025 3:13 AM EDT [facility] BUN/Creatinine Ratio 13 03/31/2025 3:13 AM EDT [facility] Sodium, Plasma 133(L) 136 - 145 mmol/L 03/31/2025 3:13 AM EDT [facility] Potassium, Plasma 3.6 3.6 - 4.9 mmol/L 03/31/2025 3:13 AM EDT [facility] Chloride, Plasma 102 97 - 107 mmol/L 03/31/2025 3:13 AM EDT [facility] CO2, Plasma 19(L) 22 - 29 mmol/L 03/31/2025 3:13 AM EDT [facility] Anion Gap 12 6 - 16 mmol/L 03/31/2025 3:13 AM EDT [facility] Total Calcium, Plasma 7.0(L) 8.9 - 10.2 mg/dL 03/31/2025 3:13 AM EDT [facility] Phosphorus, Plasma 3.5 2.5 - 4.5 mg/dL 03/31/2025 3:13 AM EDT [facility] Albumin, Plasma 2.9(L) 3.5 - 5.2 g/dL 03/31/2025 3:13 AM EDT [facility] eGFRcr 44.2 mL/min/1.7 3m*2 03/31/2025 3:13 AM EDT [facility] Comment:Reported eGFRcr in m L/min/1.73m2 is based the CKD-EPI 2020 equation that does not use a race coefficient. Blood Venous blood specimen / Unknown Venipuncture / Unknown 03/31/2025 2:22 AM EDT 03/31/2025 2:41 AM EDT Ирина Lopez MD LAB BLOOD ORDERABLES Final R esult Performing Organization Address City/[facility]/ZIP Co de Phone Number [facility] [address] [place] [address] * (ABNORMAL) Magnesium, Plasma (03/31/2025 2:22 AM EDT) Magnesium, Plasma 3.1(H) 1.9 - 2.4 mg/dL 03/31/2025 3:13 AM EDT [facility] Blood Venous blood specimen / Unknown Venipuncture / Unknown 03/31/2025 2:22 AM EDT 03/31/2025 2:41 AM EDT Ирина Lopez MD LAB BLOOD ORDERABLES Final R esult [facility] [address] [place] [address] * (ABNORMAL) CBC W/O Differential (03/31/2025 2:22 AM EDT) WBC Count 7.84 3.70 - 10.30 10*3/uL LAB HEMATOLOGY METHOD 03/31/2025 2:51 AM EDT [facility] RBC Count 2.65(L) 4.60 - 6.10 10*6/uL LAB HEMATOLOGY METHOD 03/31/2025 2:51 AM EDT [facility] HGB 8.0(L) 13.7 - 17.5 g/dL LAB HEMATOLOGY METHOD 03/31/2025 2:51 AM EDT [facility] HCT 24.3(L) 40.0 - 51.0 % LAB HEMATOLOGY METHOD 03/31/2025 2:51 AM EDT [facility] Platelet Count 155 155 - 369 10*3/uL LAB HEMATOLOGY METHOD 03/31/2025 2:51 AM EDT [facility] MCV 92 79 - 98 fL LAB HEMATOLOGY METHOD 03/31/2025 2:51 AM EDT [facility] MCH 30.2 26.0 - 32.0 pg LAB HEMATOLOGY METHOD 03/31/2025 2:51 AM EDT [facility] MCHC 32.9 30.7 - 35.5 g/dL LAB HEMATOLOGY METHOD 03/31/2025 2:51 AM EDT [facility] RDW 13.2 11.5 - 14.5 % LAB HEMATOLOGY METHOD 03/31/2025 2:51 AM EDT [facility] MPV 9.6 8.8 - 12.5 fL LAB HEMATOLOGY METHOD 03/31/2025 2:51 AM EDT [facility] nRBC 0.0 <=0.0 per 100 WBCs LAB HEMATOLOGY METHOD 03/31/2025 2:51 AM EDT [facility] Blood Venous blood specimen / Unknown Venipuncture / Unknown 03/31/2025 2:22 AM EDT 03/31/2025 2:41 AM EDT us Ирина Lopez MD LAB BLOOD ORDERABLES Final R esult [facility] [address] [place] [address] * (ABNORMAL) POCT glucose meter (03/30/2025 8:28 PM EDT) [facility] POCT Glucose 206(H) 74 - 99 mg/dL 03/30/2025 8:30 PM EDT [facility] Comment:Accuracy of a glucos e result [...] Comment 03/30/2025 8:30 PM EDT HEALTHCARE LAB Clerical Secretary ID Danuta Laughlin 03/30/2025 8:30 PM EDT HEALTHCARE LAB Device ID [id number] 03/30/2025 8:30 PM EDT [facility] Specimen Type POC Capillary 03/30/2025 8:30 PM EDT HEALTHCARE LAB Blood Capillary blood specimen / Unknown 03/30/2025 8:28 PM EDT 03/30/2025 8:30 PM EDT us Ирина Lopez MD LAB POINT OF CARE TE ST DOCKED DEVICE UNSOLICITED RESULTS Final Result Performing Organization Address City/State/[facility] Co de Phone Number HEALTHCARE LAB [address] [place] [address] * (ABNORMAL) POCT glucose meter (03/30/2025 5:20 [...] 03/30/2025 5:21 PM EDT [facility] Clerical Secretary ID Halima Ervin 03/30/20 5:21 PM EDT [facility] Device ID [id number] 03/30/2025 5:21 PM EDT HEALTHCARE LAB Specimen Type POC Capillary 03/30/2025 5:21 PM EDT HEALTHCARE LAB Blood Capillary blood specimen / Unknown 03/30/2025 5:20 PM EDT 03/30/2025 5:21 PM EDT us Ирина Lopez MD LAB POINT OF CARE TE ST DOCKED DEVICE UNSOLICITED RESULTS Final Result [facility] [address] [place] [id number] * XR Chest 1 View (03/30/2025 4:46 [...] on 03/30/2025 5:01 PM us Scarlet Gamboa [employer] IMG XR PROCEDURES Final Resul t * (ABNORMAL) POCT glucose meter (03/30/2025 12:48 PM EDT) POCT Glucose 219(H) 74 - 99 mg/dL 03/30/2025 12:49 PM EDT [facility] Comment:Accuracy of a glucos e result [...] Comment 03/30/2025 12:49 PM EDT HEALTHCARE LAB Clerical Secretary ID Cata Gibbs 12:49 PM EDT HEALTHCARE LAB Device ID [id number] 03/30/2025 12:49 PM EDT HEALTHCARE LAB Specimen Type POC Venous 03/30/2025 12:49 PM EDT HEALTH[facility]ARE LAB Blood Venous blood specimen / Unknown 03/30/2025 12:48 PM EDT 03/30/2025 12:49 PM EDT us Ирина Lopez MD LAB POINT OF CARE TE ST DOCKED DEVICE UNSOLICITED RESULTS Final Result Performing Organization Address [facility] Co de Phone Number [facility] [address] [place] [address] * (ABNORMAL) Magnesium, Plasma (03/30/2025 10:57 AM EDT) Magnesium, Plasma 3.1(H) 1.9 - 2.4 mg/dL 03/30/2025 11:49 AM EDT [facility] Blood Venous blood specimen / Unknown Venipuncture / Unknown 03/30/2025 10:57 AM EDT 03/30/2025 11:16 AM EDT us Scarlet Gamboa APRN LAB BLOOD ORDERABLES Final Re sult [facility] [address] [place] [address] * (ABNORMAL) Renal function panel (03/30/2025 10:57 AM EDT) Glucose, Plasma 236(H) 74 - 99 mg/dL 03/30/2025 11:49 AM EDT [facility] BUN, Plasma 20 8 - 23 mg/dL 03/30/2025 11:49 AM EDT [facility] Creatinine, Plasma 1.64(H) 0.70 - 1.20 mg/dL 03/30/2025 11:49 AM EDT [facility] BUN/Creatinine Ratio 12 03/30/2025 11:49 AM EDT [facility] Sodium, Plasma 132(L) 136 - 145 mmol/L 03/30/2025 11:49 AM EDT [facility] Potassium, Plasma 4.6 3.6 - 4.9 mmol/L 03/30/2025 11:49 AM EDT [facility] Chloride, Plasma 100 97 - 107 mmol/L 03/30/2025 11:49 AM EDT [facility] CO2, Plasma 21(L) 22 - 29 mmol/L 03/30/2025 11:49 AM EDT [facility] Anion Gap 11 6 - 16 mmol/L 03/30/2025 11:49 AM EDT [facility] Total Calcium, Plasma 7.4(L) 8.9 - 10.2 mg/dL 03/30/2025 11:49 AM EDT [facility] Phosphorus, Plasma 2.6 2.5 - 4.5 mg/dL 03/30/2025 11:49 AM EDT [facility] Albumin, Plasma 3.0(L) 3.5 - 5.2 g/dL 03/30/2025 11:49 AM EDT [facility] eGFRcr 42.5 mL/min/1.7 3m*2 03/30/2025 11:49 AM EDT [facility] Comment:Reported eGFRcr in m L/min/1.73m2 is based the CKD-EPI 2020 equation that does not use a race coefficient. Blood Venous blood specimen / Unknown Venipuncture / Unknown 03/30/2025 10:57 AM EDT 03/30/2025 11:16 AM EDT us Ирина Lopez MD LAB BLOOD ORDERABLES Final R esult [facility] [address] [place] [address] * (ABNORMAL) POCT glucose meter (03/30/2025 10:56 [...] 03/30/2025 11:00 AM EDT [facility] Clerical Secretary ID Cata Gibbs 11:00 AM EDT HEALTHCARE LAB Device ID [id number] 03/30/2025 11:00 AM EDT HEALTHCARE LAB Specimen Type POC Venous 03/30/2025 11:00 AM EDT HEALTHCARE LAB Blood Venous blood specimen / Unknown 03/30/2025 10:56 AM EDT 03/30/2025 11:00 AM EDT us Ирина Lopez MD LAB POINT OF CARE TE ST DOCKED DEVICE UNSOLICITED RESULTS Final Result Performing Organization Address City/State/[facility] Co de Phone Number HEALTHCARE LAB [address] [place] [address] * (ABNORMAL) POCT glucose meter (03/30/2025 9:38 AM EDT) [facility] POCT Glucose 271(H) 74 - 99 mg/dL [...] 03/30/2025 9:39 AM EDT [facility] Clerical Secretary ID Cata Gibbs 9:39 AM EDT [facility] Device ID [id number] 03/30/2025 9:39 AM EDT [facility] Specimen Type POC Venous 03/30/2025 9:39 AM EDT [facility]ALTH[facility]ARE LAB Blood Venous blood specimen / Unknown 03/30/2025 9:38 AM EDT 03/30/2025 9:39 AM EDT Ирина Lopez MD LAB POINT OF CARE TE ST DOCKED DEVICE UNSOLICITED RESULTS Final Result Performing Organization Address [facility] Co de Phone Number HEALTHCARE LAB [address] [place] [address] * ECG Adult (03/30/2025 8:37 AM EDT) EKG DIAGNOSIS CLASS Abnormal MUSE ECG Ventricular Rate 81 BPM MUSE ECG Atrial Rate 81 BPM MUSE ECG ND Interval 170 ms MUSE ECG QRSD Interval 104 ms MUSE ECG QT Interval 416 ms MUSE ECG QTC Interval 483 ms MUSE ECG P [place] 39 degrees MUSE ECG R [place] -51 degrees MUSE ECG T Wave [place] -15 degrees MUSE ECG Diagnosis Poor data quality, interpretation may be adversely affected MUSE ECG Diagnosis Normal sinus rhythm MUSE ECG Diagnosis Left anterior fascicular block MUSE ECG Diagnosis Moderate voltage criteria for LVH, may be normal variant ( R in aVL , Dago product ) MUSE ECG Diagnosis Possible Anterolateral infarct , age undetermined MUSE ECG Diagnosis QTcB >= 480 msec MUSE ECG Diagnosis Abnormal ECG MUSE ECG Diagnosis MUSE ECG Diagnosis Confirmed by Carey Michel ([id number]) on 03/30/2025 9:40:26 AM MUSE ECG 03/30/2025 8:37 AM EDT 03/30/2025 9:40 AM EDT Ирина Lopez MD ECG ORDERABLES Final Result Performing Organization Address [facility] de Phone Number MUSE ECG * (ABNORMAL) POCT glucose meter (03/30/2025 8:10 AM EDT) Pathologist [facility] POCT Glucose 164(H) 74 - 99 mg/dL 03/30/2025 8:11 AM EDT [facility] Comment:Accuracy of a glucos e result [...] 03/30/2025 8:11 AM EDT [facility] Clerical Secretary ID Cata Gibbs 8:11 AM EDT HEALTHCARE LAB Device ID [id number] 03/30/2025 8:11 AM EDT HEALTHCARE LAB Specimen Type POC Venous 03/30/2025 8:11 AM EDT HEALTH[facility]ARE LAB Blood Venous blood specimen / Unknown 03/30/2025 8:10 AM EDT 03/30/2025 8:11 AM EDT us Ирина Lopez MD LAB POINT OF CARE TE ST DOCKED DEVICE UNSOLICITED RESULTS Final Result [facility] [address] [place] [id number] * (ABNORMAL) Renal function panel (03/30/2025 4:05 AM EDT) Glucose, Plasma 207(H) 74 - 99 mg/dL 03/30/2025 4:40 AM EDT [facility] BUN, Plasma 18 8 - 23 mg/dL 03/30/2025 4:40 AM EDT [facility] Creatinine, Plasma 1.41(H) 0.70 - 1.20 mg/dL 03/30/2025 4:40 AM EDT [facility] BUN/Creatinine Ratio 13 03/30/2025 4:40 AM EDT [facility] Sodium, Plasma 134(L) 136 - 145 mmol/L 03/30/2025 4:40 AM EDT [facility] Potassium, Plasma 5.8(H) 3.6 - 4.9 mmol/L 03/30/2025 4:40 AM EDT [facility] Chloride, Plasma 101 97 - 107 mmol/L 03/30/2025 4:40 AM EDT [facility] CO2, Plasma 20(L) 22 - 29 mmol/L 03/30/2025 4:40 AM EDT [facility] Anion Gap 13 6 - 16 mmol/L 03/30/2025 4:40 AM EDT [facility] Total Calcium, Plasma 7.7(L) 8.9 - 10.2 mg/dL 03/30/2025 4:40 AM EDT [facility] Phosphorus, Plasma 3.0 2.5 - 4.5 mg/dL 03/30/2025 4:40 AM EDT [facility] Albumin, Plasma 3.2(L) 3.5 - 5.2 g/dL 03/30/2025 4:40 AM EDT [facility] eGFRcr 51.0 mL/min/1.7 3m*2 03/30/2025 4:40 AM EDT [facility] Comment:Reported eGFRcr in m L/min/1.73m2 is based the CKD-EPI 2020 equation that does not use a race coefficient. Blood Arterial blood specimen / Unknown Arterial Puncture / Unknown 03/30/2025 4:05 AM EDT 03/30/2025 4:11 AM EDT Ирина Lopez MD LAB BLOOD ORDERABLES Final R esult Performing Organization Address City/[facility]/ZIP Co de Phone Number [facility] [address] [place] [address] * (ABNORMAL) Magnesium (03/30/2025 4:05 AM EDT) Magnesium, Plasma 1.4(L) 1.9 - 2.4 mg/dL 03/30/2025 4:40 AM EDT [facility] Blood Arterial blood specimen / Unknown Arterial Puncture / Unknown 03/30/2025 4:05 AM EDT 03/30/2025 4:11 AM EDT Ирина Lopez MD LAB BLOOD ORDERABLES Final R esult [facility] [address] [place] [address] * (ABNORMAL) CBC W/O Differential (03/30/2025 4:05 AM EDT) WBC Count 9.64 3.70 - 10.30 10*3/uL LAB HEMATOLOGY METHOD 03/30/2025 4:19 AM EDT [facility] RBC Count 2.91(L) 4.60 - 6.10 10*6/uL LAB HEMATOLOGY METHOD 03/30/2025 4:19 AM EDT [facility] HGB 8.8(L) 13.7 - 17.5 g/dL LAB HEMATOLOGY METHOD 03/30/2025 4:19 AM EDT [facility] HCT 25.8(L) 40.0 - 51.0 % LAB HEMATOLOGY METHOD 03/30/2025 4:19 AM EDT [facility] Platelet Count 190 155 - 369 10*3/uL LAB HEMATOLOGY METHOD 03/30/2025 4:19 AM EDT [facility] MCV 89 79 - 98 fL LAB HEMATOLOGY METHOD 03/30/2025 4:19 AM EDT [facility] MCH 30.2 26.0 - 32.0 pg LAB HEMATOLOGY METHOD 03/30/2025 4:19 AM EDT [facility] MCHC 34.1 30.7 - 35.5 g/dL LAB HEMATOLOGY METHOD 03/30/2025 4:19 AM EDT [facility] RDW 12.6 11.5 - 14.5 % LAB HEMATOLOGY METHOD 03/30/2025 4:19 AM EDT [facility] MPV 9.6 8.8 - 12.5 fL LAB HEMATOLOGY METHOD 03/30/2025 4:19 AM EDT [facility] nRBC 0.0 <=0.0 per 100 WBCs LAB HEMATOLOGY METHOD 03/30/2025 4:19 AM EDT [facility] Blood Arterial blood specimen / Unknown Arterial Puncture / Unknown 03/30/2025 4:05 AM EDT 03/30/2025 4:11 AM EDT us Ирина Lopez MD LAB BLOOD ORDERABLES Final R esult [facility] [address] [place] [address] * XR Chest 1 View (03/30/2025 1:35 [...] - 1.20 mg/dL 03/29/2025 8:39 PM EDT [facility] eGFRcr 70.2 mL/min/1.7 3m*2 03/29/2025 8:39 PM EDT [facility] Comment:Reported eGFRcr in m L/min/1.73m2 is based the CKD-EPI 2020 equation that does not use a race coefficient. Blood Arterial blood specimen / Unknown Arterial Puncture / Unknown 03/29/2025 7:58 PM EDT 03/29/2025 8:05 PM EDT Ирина Lopez MD LAB BLOOD ORDERABLES Final R esult [facility] [address] [place] [address] * (ABNORMAL) Renal Function Panel, Plasma (03/29/2025 7:58 PM EDT) Glucose, Plasma 183(H) 74 - 99 mg/dL 03/29/2025 8:39 PM EDT [facility] BUN, Plasma 13 8 - 23 mg/dL 03/29/2025 8:39 PM EDT [facility] Creatinine, Plasma 1.08 0.70 - 1.20 mg/dL 03/29/2025 8:39 PM EDT [facility] BUN/Creatinine Ratio 12 03/29/2025 8:39 PM EDT [facility] Sodium, Plasma 136 136 - 145 mmol/L 03/29/2025 8:39 PM EDT [facility] Potassium, Plasma 4.4 3.6 - 4.9 mmol/L 03/29/2025 8:39 PM EDT [facility] Chloride, Plasma 104 97 - 107 mmol/L 03/29/2025 8:39 PM EDT [facility] CO2, Plasma 21(L) 22 - 29 mmol/L 03/29/2025 8:39 PM EDT [facility] Anion Gap 11 6 - 16 mmol/L 03/29/2025 8:39 PM EDT [facility] Total Calcium, Plasma 7.9(L) 8.9 - 10.2 mg/dL 03/29/2025 8:39 PM EDT [facility] Phosphorus, Plasma 2.9 2.5 - 4.5 mg/dL 03/29/2025 8:39 PM EDT [facility] Albumin, Plasma 3.2(L) 3.5 - 5.2 g/dL 03/29/2025 8:39 PM EDT [facility] eGFRcr 70.2 mL/min/1.7 3m*2 03/29/2025 8:39 PM EDT [facility] Comment:Reported eGFRcr in m L/min/1.73m2 is based the CKD-EPI 2020 equation that does not use a race coefficient. Blood Arterial blood specimen / Unknown Arterial Puncture / Unknown 03/29/2025 7:58 PM EDT 03/29/2025 8:05 PM EDT us Ирина Lopez MD LAB BLOOD ORDERABLES Final R esult [facility] [address] [place] [address] * (ABNORMAL) Magnesium, Plasma (03/29/2025 7:58 PM EDT) Magnesium, Plasma 1.3(L) 1.9 - 2.4 mg/dL 03/29/2025 8:39 PM EDT [facility] Blood Arterial blood specimen / Unknown Arterial Puncture / Unknown 03/29/2025 7:58 PM EDT 03/29/2025 8:05 PM EDT us Ирина Lopez MD LAB BLOOD ORDERABLES Final R esult Performing Organization Address City/[facility]/ZIP Co de Phone Number [facility] [address] [place] [address] * Fibrinogen (03/29/2025 7:58 PM EDT) Fibrinogen, Quantitative (Clottable) 294 208 - 459 mg/dL LAB COAGULATION METHOD 03/29/2025 8:38 PM EDT [facility] Blood Arterial blood specimen / Unknown Arterial Puncture / Unknown 03/29/2025 7:58 PM EDT 03/29/2025 8:05 PM EDT us Kiana Gusman CRNA LAB BLOOD ORDERABLES Final R esult [facility] [address] [place] [address] * Protime-INR (03/29/2025 7:58 PM EDT) Prothrombin Time 13.8 12.0 - 14.3 sec LAB COAGULATION METHOD 03/29/2025 8:38 PM EDT [facility] INR 1.0 0.9 - 1.1 LAB COAGULATION METHOD 03/29/2025 8:38 PM EDT [facility] Blood Arterial blood specimen / Unknown Arterial Puncture / Unknown 03/29/2025 7:58 PM EDT 03/29/2025 8:05 PM EDT Narrative [facility] - 03/29/2025 8:38 PM EDT OPTIMAL INR RANGES FOR PATIENT ON ORAL ANTICOAGULANT THERAPY Prevention of venous thromboembolism INR 2.0 to 3.0 In patients with heart disease: Atrial fibrillation INR 2.0 to 3.0 Valvular heart disease INR 2.0 to 3.0 Tissue heart valves INR 2.0 to 3.0 Mechanical prosthetic valves INR 2.5 to 3.5 Prevention of recurrent NH INR 2.5 to 3.5 us Kiana Gusman CRNA LAB BLOOD ORDERABLES Final R esult [facility] [address] [place] [address] * (ABNORMAL) CBC and differential (03/29/2025 7:58 PM EDT) WBC Count 8.18 3.70 - 10.30 10*3/uL LAB HEMATOLOGY METHOD 03/29/2025 8:29 PM EDT [facility] RBC Count 3.11(L) 4.60 - 6.10 10*6/uL LAB HEMATOLOGY METHOD 03/29/2025 8:29 PM EDT [facility] HGB 9.2(L) 13.7 - 17.5 g/dL LAB HEMATOLOGY METHOD 03/29/2025 8:29 PM EDT [facility] HCT 27.7(L) 40.0 - 51.0 % LAB HEMATOLOGY METHOD 03/29/2025 8:29 PM EDT [facility] Platelet Count 174 155 - 369 10*3/uL LAB HEMATOLOGY METHOD 03/29/2025 8:29 PM EDT [facility] MCV 89 79 - 98 fL LAB HEMATOLOGY METHOD 03/29/2025 8:29 PM EDT [facility] MCH 29.6 26.0 - 32.0 pg LAB HEMATOLOGY METHOD 03/29/2025 8:29 PM EDT [facility] MCHC 33.2 30.7 - 35.5 g/dL LAB HEMATOLOGY METHOD 03/29/2025 8:29 PM EDT [facility] RDW 12.6 11.5 - 14.5 % LAB HEMATOLOGY METHOD 03/29/2025 8:29 PM EDT [facility] MPV 9.3 8.8 - 12.5 fL LAB HEMATOLOGY METHOD 03/29/2025 8:29 PM EDT [facility] nRBC 0.0 <=0.0 per 100 WBCs LAB HEMATOLOGY METHOD 03/29/2025 8:29 PM EDT [facility] Differential Type Automated LAB HEMATOLOGY METHOD 03/29/2025 8:29 PM EDT [facility] Neutrophils % 86 % LAB HEMATOLOGY METHOD 03/29/2025 8:29 PM EDT [facility] Lymphocytes % 9 % LAB HEMATOLOGY METHOD 03/29/2025 8:29 PM EDT [facility] Monocytes % 5 % LAB HEMATOLOGY METHOD 03/29/2025 8:29 PM EDT [facility] Eosinophils % 0 % LAB HEMATOLOGY METHOD 03/29/2025 8:29 PM EDT [facility] Basophils % 0 % LAB HEMATOLOGY METHOD 03/29/2025 8:29 PM EDT [facility] Immature Granulocytes % 0 % LAB HEMATOLOGY METHOD 03/29/2025 8:29 PM EDT [facility] Neutrophils Absolute 7.00(H) 1.60 - 6.10 10*3/uL LAB HEMATOLOGY METHOD 03/29/2025 8:29 PM EDT [facility] Lymphocytes Absolute 0.71(L) 1.20 - 3.90 10*3/uL LAB HEMATOLOGY METHOD 03/29/2025 8:29 PM EDT [facility] Monocytes Absolute 0.40 0.30 - 0.90 10*3/uL LAB HEMATOLOGY METHOD 03/29/2025 8:29 PM EDT [facility] Eosinophils Absolute 0.02 0.00 - 0.50 10*3/uL LAB HEMATOLOGY METHOD 03/29/2025 8:29 PM EDT [facility] Basophils Absolute 0.02 0.00 - 0.10 10*3/uL LAB HEMATOLOGY METHOD 03/29/2025 8:29 PM EDT [facility] Immature Granulocytes Absolute 0.03 0.00 - 0.06 10*3/uL LAB HEMATOLOGY METHOD 03/29/2025 8:29 PM EDT [facility] Blood Arterial blood specimen / Unknown Arterial Puncture / Unknown 03/29/2025 7:58 PM EDT 03/29/2025 8:04 PM EDT [facility] - 03/29/2025 8:29 PM EDT Therapeutic decision making should be based on absolute values, rather than percentages. us Kiana Gusman CRNA LAB BLOOD ORDERABLES Final R esult [facility] [address] [place] [address] * (ABNORMAL) POCT glucose meter (03/29/2025 7:43 [...] Comment 03/29/2025 7:45 PM EDT [facility] Clerical Secretary ID Radha Slater 03/29/20 7:45 PM EDT [facility] Device ID [id number] 03/29/2025 7:45 PM EDT [facility] Specimen Type POC Capillary 03/29/2025 7:45 PM EDT [facility] Blood Capillary blood specimen / Unknown 03/29/2025 7:43 PM EDT 03/29/2025 7:45 PM EDT us Ирина Lopez MD LAB POINT OF CARE TE ST DOCKED DEVICE UNSOLICITED RESULTS Final Result [facility] [address] [place] [address] * Surgical Pathology Exam (03/29/2025 5:10 PM EDT) Case Report Surgical Pathology Case: [id number] Authorizing Provider: Ирина Lopez MD Collected: 03/29/2025 1716 Ordering Location: [facility] A OPERATING ROOM Received: 03/30/2025 0753 Pathologist: Cindy Miller MD Intraop: Elizabeth Gibbs [...] (specify site), lipoma 5 2:45 PM EDT [facility] Final Diagnosis A. LUNG, BRONCHIAL MARGIN, [...] EXCISION: - LIPOMA. 5 2:45 PM EDT [facility] at 1445 EDT Synoptic Checklist LUNG LUNG [...] pN Category: pN0 5 2:45 PM EDT [facility] Clinical Information Non-small cell cancer of left lung 5 2:45 PM EDT [facility] Intraoperative Consultation A. BRONCHIAL MARGIN FSA: No tumor seen. Todd Gibbs MD. 03/29/2025 @ 1745. 5 2:45 PM EDT [facility] Special and Immunohistochemical Stains Special Stain: [id number] Elastic Trichrome: Demonstrates visceral pleural invasion F8-2 Elastic Trichrome: Demonstrates visceral pleural invasion All controls show appropriate reactivity. All immunohistochemis try, in situ hybridization, and histochemical tests were developed by and are performed at the [facility], [address] [place] [address]. All tests reported here, except those addressing [...] 0.3-0.6 cm in greatest dimension are identified. Drainage Design Coordinator sections are submitted as follows: F1: Bronchial [...] 5.6 x 2.1 cm unoriented portion of legegtt-yellow lobulated fibroadipose tissue. The external surface is inked blue. Sectioning reveals a leggett-yellow lobulated cut surface. No areas of hemorrhage or necrosis are identified. Drainage Design Coordinator sections are submitted in cassettes G1-G3. Cold Time: 13h 05m SWATI Wong (ASCP) 5 2:45 PM EDT [facility] Note: A resident was involved in the service. I attest I examined the relevant preparations for the specimens and confirmed the diagnosis or interpretation. 5 2:45 PM EDT [facility] Tissue Structure of lymph node / [...] MD LAB PATHOLOGY ORDERABLES Fin al Result [facility] [address] [place] [address] * (ABNORMAL) Blood gas panel, arterial (03/29/2025 4:05 PM EDT) pH, Arterial 7.38 7.31 - 7.42 LAB HEMATOLOGY METHOD 03/29/2025 4:13 PM EDT [facility] pCO2, Arterial 45 32 - 45 mmHg LAB HEMATOLOGY METHOD 03/29/2025 4:13 PM EDT [facility] pO2, Arterial 216 >70 mmHg LAB HEMATOLOGY METHOD 03/29/2025 4:13 PM EDT [facility] SO2, Measured, Arterial 100(H) 94 - 98 % LAB HEMATOLOGY METHOD 03/29/2025 4:13 PM EDT [facility] Base Excess, Arterial 1.2 -2.0 - 3.0 mmol/L LAB HEMATOLOGY METHOD 03/29/2025 4:13 PM EDT [facility] Bicarbonate, Calculated, Arterial 27(H) 22 - 26 mmol/L LAB HEMATOLOGY METHOD 03/29/2025 4:13 PM EDT [facility] Hematocrit, Whole Blood 31.6(L) 40.0 - 51.0 % LAB HEMATOLOGY METHOD 03/29/2025 4:13 PM EDT [facility] Sodium, Whole Blood 138 136 - 145 mmol/L LAB HEMATOLOGY METHOD 03/29/2025 4:13 PM EDT [facility] Potassium, Whole Blood 3.8 3.6 - 4.9 mmol/L LAB HEMATOLOGY METHOD 03/29/2025 4:13 PM EDT [facility] Chloride, Whole Blood 103 97 - 107 mmol/L LAB HEMATOLOGY METHOD 03/29/2025 4:13 PM EDT [facility] Glucose, Whole Blood 123(H) 74 - 99 mg/dL LAB HEMATOLOGY METHOD 03/29/2025 4:13 PM EDT [facility] Ionized Calcium, Whole Blood 4.4(L) 4.6 - 5.1 mg/dL LAB HEMATOLOGY METHOD 03/29/2025 4:13 PM EDT [facility] Lactate, Arterial, Whole Blood 0.8 0.5 - 1.6 mmol/L LAB HEMATOLOGY METHOD 03/29/2025 4:13 PM EDT [facility] Blood Arterial blood specimen / Unknown 03/29/2025 4:05 PM EDT 03/29/2025 4:11 PM EDT Comment:Pre-op diagnosis: Non-small cell cancer of left lung us Ирина Lopez MD LAB BLOOD ORDERABLES Final R esult [facility] [address] [place] [address] * APTT (03/29/2025 4:04 PM EDT) aPTT 28 25 - 35 sec LAB COAGULATION METHOD 03/29/2025 4:39 PM EDT [facility] Blood Arterial blood specimen / Unknown 03/29/2025 4:04 PM EDT 03/29/2025 4:18 PM EDT Comment:Pre-op diagnosis: Non-small cell cancer of left lung us Ирина Lopez MD LAB BLOOD ORDERABLES Final R esult Performing Organization Address [facility]/ZIP Co de Phone Number [facility] [address] [place] [address] * Prothrombin Time/INR (03/29/2025 4:04 PM EDT) Prothrombin Time 13.4 12.0 - 14.3 sec LAB COAGULATION METHOD 03/29/2025 4:39 PM EDT [facility] INR 1.0 0.9 - 1.1 LAB COAGULATION METHOD 03/29/2025 4:39 PM EDT [facility] Blood Arterial blood specimen / Unknown 03/29/2025 4:04 PM EDT 03/29/2025 4:18 PM EDT Comment:Pre-op diagnosis: Non-small cell cancer of left lung Narrative [facility] - 03/29/2025 4:39 PM EDT OPTIMAL INR RANGES FOR PATIENT ON ORAL ANTICOAGULANT THERAPY Prevention of venous thromboembolism INR 2.0 to 3.0 In patients with heart disease: Atrial fibrillation INR 2.0 to 3.0 Valvular heart disease INR 2.0 to 3.0 Tissue heart valves INR 2.0 to 3.0 Mechanical prosthetic valves INR 2.5 to 3.5 Prevention of recurrent NH INR 2.5 to 3.5 Result [facility] Ирина Lopez MD LAB BLOOD ORDERABLES Final R ult Performing Organization Address [facility] Co de Phone Number [facility] [address] [place] [address] * Fibrinogen, Quantitative (Clottable) (03/29/2025 4:04 PM EDT) Fibrinogen, Quantitative (Clottable) 336 208 - 459 mg/dL LAB COAGULATION METHOD 03/29/2025 4:39 PM EDT [facility] Blood Arterial blood specimen / Unknown 03/29/2025 4:04 PM EDT 03/29/2025 4:18 PM EDT Comment:Pre-op diagnosis: Non-small cell cancer of left lung Ирина Lopez MD LAB BLOOD ORDERABLES Final R esult [facility] [address] [place] [address] * (ABNORMAL) CBC W/O Differential (03/29/2025 4:04 PM EDT) WBC Count 3.70 3.70 - 10.30 10*3/uL LAB HEMATOLOGY METHOD 03/29/2025 4:28 PM EDT [facility] RBC Count 3.52(L) 4.60 - 6.10 10*6/uL LAB HEMATOLOGY METHOD 03/29/2025 4:28 PM EDT [facility] HGB 10.5(L) 13.7 - 17.5 g/dL LAB HEMATOLOGY METHOD 03/29/2025 4:28 PM EDT [facility] HCT 31.1(L) 40.0 - 51.0 % LAB HEMATOLOGY METHOD 03/29/2025 4:28 PM EDT [facility] Platelet Count 184 155 - 369 10*3/uL LAB HEMATOLOGY METHOD 03/29/2025 4:28 PM EDT [facility] MCV 88 79 - 98 fL LAB HEMATOLOGY METHOD 03/29/2025 4:28 PM EDT [facility] MCH 29.8 26.0 - 32.0 pg LAB HEMATOLOGY METHOD 03/29/2025 4:28 PM EDT [facility] MCHC 33.8 30.7 - 35.5 g/dL LAB HEMATOLOGY METHOD 03/29/2025 4:28 PM EDT [facility] RDW 12.6 11.5 - 14.5 % LAB HEMATOLOGY METHOD 03/29/2025 4:28 PM EDT [facility] MPV 9.4 8.8 - 12.5 fL LAB HEMATOLOGY METHOD 03/29/2025 4:28 PM EDT [facility] nRBC 0.0 <=0.0 per 100 WBCs LAB HEMATOLOGY METHOD 03/29/2025 4:28 PM EDT [facility] Blood Arterial blood specimen / Unknown 03/29/2025 4:04 PM EDT 03/29/2025 4:20 PM EDT Comment:Pre-op diagnosis: Non-small cell cancer of left lung us Ирина Lopez MD LAB BLOOD ORDERABLES Final R esult [facility] [address] [place] [address] * (ABNORMAL) Blood gas panel, arterial (03/29/2025 2:29 PM EDT) pH, Arterial 7.39 7.31 - 7.42 LAB HEMATOLOGY METHOD 03/29/2025 2:35 PM EDT [facility] pCO2, Arterial 44 32 - 45 mmHg LAB HEMATOLOGY METHOD 03/29/2025 2:35 PM EDT [facility] pO2, Arterial 190 >70 mmHg LAB HEMATOLOGY METHOD 03/29/2025 2:35 PM EDT [facility] SO2, Measured, Arterial 100(H) 94 - 98 % LAB HEMATOLOGY METHOD 03/29/2025 2:35 PM EDT [facility] Base Excess, Arterial 1.5 -2.0 - 3.0 mmol/L LAB HEMATOLOGY METHOD 03/29/2025 2:35 PM EDT [facility] Bicarbonate, Calculated, Arterial 27(H) 22 - 26 mmol/L LAB HEMATOLOGY METHOD 03/29/2025 2:35 PM EDT [facility] Hematocrit, Whole Blood 32.4(L) 40.0 - 51.0 % LAB HEMATOLOGY METHOD 03/29/2025 2:35 PM EDT [facility] Sodium, Whole Blood 139 136 - 145 mmol/L LAB HEMATOLOGY METHOD 03/29/2025 2:35 PM EDT [facility] Potassium, Whole Blood 3.6 3.6 - 4.9 mmol/L LAB HEMATOLOGY METHOD 03/29/2025 2:35 PM EDT [facility] Chloride, Whole Blood 104 97 - 107 mmol/L LAB HEMATOLOGY METHOD 03/29/2025 2:35 PM EDT [facility] Glucose, Whole Blood 96 74 - 99 mg/dL LAB HEMATOLOGY METHOD 03/29/2025 2:35 PM EDT [facility] Ionized Calcium, Whole Blood 4.4(L) 4.6 - 5.1 mg/dL LAB HEMATOLOGY METHOD 03/29/2025 2:35 PM EDT [facility] Lactate, Arterial, Whole Blood 1.4 0.5 - 1.6 mmol/L LAB HEMATOLOGY METHOD 03/29/2025 2:35 PM EDT [facility] Blood Arterial blood specimen / Unknown 03/29/2025 2:29 PM EDT 03/29/2025 2:34 PM EDT Comment:Pre-op diagnosis: Non-small cell cancer of left lung us Ирина Lopez MD LAB BLOOD ORDERABLES Final R esult Performing Organization Address City/[facility]/ZIP Co de Phone Number [facility] [address] [place] [address] * (ABNORMAL) POCT glucose meter (03/29/2025 12:48 PM EDT) Pathologist [facility] POCT Glucose 100(H) 74 - 99 mg/dL [...] Comment 03/29/2025 12:50 PM EDT [facility] Clerical Secretary ID Rosalie Cuevas 03/29/20 12:50 PM EDT [facility] Device ID [id number] 03/29/2025 12:50 PM EDT [facility] Specimen Type POC Venous 03/29/2025 12:50 PM EDT [facility] Blood Venous blood specimen / Unknown 03/29/2025 12:48 PM EDT 03/29/2025 12:50 PM EDT us Ирина Lopez MD LAB POINT OF CARE TE ST DOCKED DEVICE UNSOLICITED RESULTS Final Result Performing Organization Address City/[facility]/ZIP Co de Phone Number [facility] [address] [place] [address] * (ABNORMAL) Blood gas, venous (03/29/2025 12:27 PM EDT) Pathologist [facility] pH, Venous 7.36 7.32 - 7.43 LAB HEMATOLOGY METHOD 03/29/2025 12:51 PM EDT [facility] pCO2, Venous 49 40 - 55 mmHg LAB HEMATOLOGY METHOD 03/29/2025 12:51 PM EDT [facility] pO2, Venous 54(H) 25 - 40 mmHg LAB HEMATOLOGY METHOD 03/29/2025 12:51 PM EDT [facility] SO2, Measured, Venous 87(H) 65 - 80 % LAB HEMATOLOGY METHOD 03/29/2025 12:51 PM EDT [facility] Base Excess, Venous 1.7 -2.0 - 3.0 mmol/L LAB HEMATOLOGY METHOD 03/29/2025 12:51 PM EDT [facility] Bicarbonate, Calculated, Venous 28(H) 22 - 26 mmol/L LAB HEMATOLOGY METHOD 03/29/2025 12:51 PM EDT [facility] Hematocrit, Whole Blood 39.2(L) 40.0 - 51.0 % LAB HEMATOLOGY METHOD 03/29/2025 12:51 PM EDT [facility] Sodium, Whole Blood 140 136 - 145 mmol/L LAB HEMATOLOGY METHOD 03/29/2025 12:51 PM EDT [facility] Potassium, Whole Blood 4.0 3.6 - 4.9 mmol/L LAB HEMATOLOGY METHOD 03/29/2025 12:51 PM EDT [facility] Chloride, Whole Blood 103 97 - 107 mmol/L LAB HEMATOLOGY METHOD 03/29/2025 12:51 PM EDT [facility] Glucose, Whole Blood 97 74 - 99 mg/dL LAB HEMATOLOGY METHOD 03/29/2025 12:51 PM EDT [facility] Lactate, Venous, Whole Blood 1.6 0.5 - 2.2 mmol/L LAB HEMATOLOGY METHOD 03/29/2025 12:51 PM EDT [facility] Ionized Calcium, Whole Blood 4.5(L) 4.6 - 5.1 mg/dL LAB HEMATOLOGY METHOD 03/29/2025 12:51 PM EDT [facility] Blood Venous blood specimen / Unknown Venipuncture / Unknown 03/29/2025 12:27 PM EDT 03/29/2025 12:49 PM EDT us Robert Santos MD LAB BLOOD ORDERABLES Final Resu lt [facility] [address] [place] [address] * Type and Screen (03/29/2025 12:27 PM [...] TEST ORDERABLES Final Result Performing Organization Address [facility] Co de Phone Number BLOOD BANK [address] [place] [address], documented in this encounter Visit Diagnoses Diagnosis [...] documented as of this encounter Care Teams Senior Manager Asset Protection Relationship Specialty Start Date End Date Casa Phillips MD [address] [place] [id number] PCP - General 02/22/25 Forrest Nickerson APRN [address] [place] [id number] 03/06/23 documented as of this encounter
--- OUTSIDE RECORDS SUMMARY | 2025-03-29 12:10 | XMS_ITS | Encounter Summary ---
Author Organization [facility] Address [address] [place] [address] Care Team Providers Care Senior Web Developer Name Role Phone Forrest Nickerson BURNING MACHINE OPERATOR Unavailable [phone] Casa Phillips MD Primary Care Provider [phone] Reason for Visit * Auth/Cert (Routine) Specialty Diagnoses / Procedures Referred By Contac t Referred To Contact Diagnoses Non-small cell cancer of left lung (CMS/HCC) Non-small cell cancer of left lung Procedures OK THORACOSCOPY SURG LOBECTOMY LEFT VATS LOBECTOMY Ирина Lopez MD [address] [address] Phone: tel: fax: [facility] [address] [place] [address] Phone: tel: Referral ID Status Reason Start Date Expiration Date Visits Re quested Visits Authorized [id number] 1 1 Encounter Details Date Type Department Care Team (Late st Contact Info) Description 03/29/2025 12:10 PM EDT - 03/29/2025 4:50 PM EDT Surgery [facility] [address] [place] [address] Ирина Lopez MD [address] [address] LEFT VATS LOBECTOMY coverted to open, Left thoracotomy, with medistinal lymph node disection and lypoma [13680 (CPT )] Surgery Details Date/Time Status Location [...] General Class II/ Clean Contaminated Peds scope [id number] passed Surgeon Surgeon Role Service Panel Carl [...] Clinic discharge # - For urgent questions/concerns: [facility] hotline: , option 4 - ask for the thoracic surgeon production graphic designer. documented in this encounter Medications at Time [...] from the original note were not included. [id number] Surgery for Lung Cancer Surgery can be [...] holidays. Last Reviewed Date: 2023 00:00:00 ?? 1415-3600 [employer]. All rights reserved. This information is not intended as a substitute for professional medical care. Always follow your healthcare professional's instructions. * Neida OnALEXIS - Chester Cuevas RN - 04/04/2025 10:29 AM EDT Images from the original note were not included. 86259 Thoracotomy Thoracotomy is surgery used to diagnose [...] . Last Reviewed Date: 2024 00:00:00 ?? [id number] [employer]. All rights reserved. This information is not intended as a substitute for professional medical care. Always follow your healthcare professional's instructions. * Neida Garland - Chester Cuevas RN - 04/04/2025 10:29 AM EDT Images from the original note were not included. 45955 Lung Cancer: Video-Assisted and Robotic-Assisted Thoracic Surgery [...] you will hurt less after surgery. ? [place] [facility] stay. You can likely go home [...] surgery because the cuts are small. ? [place] [facility] stay. You can likely go home [...] of surgery you need. Make sure the [facility] have experience in VATS or RATS. [...] future. Last Reviewed Date: 2023 00:00:00 ?? [id number] [employer]. All rights reserved. This information is not intended as a substitute for professional medical care. Always follow your healthcare professional's instructions. * Neida Garland - Chester Cuveas RN - 04/04/2025 10:24 AM EDT Images from the original note were not included. [id number] Tamsulosin Brand Name(s): Flomax??, Su?? (as a [...] be awakened, immediately call emergency services at 511. Symptoms of overdose may include: ? dizziness [...] of all of the prescription and nonprescription (ddkd-icq-upiiego) medicines you are taking, as well as [...] or pharmacist about specific clinical use. The [employer] represents that the information provided hereunder was formulated with a reasonable standard of care, and in conformity with professional standards in the field. The [employer] makes no representations or warranties, express or implied, including, but not limited to, any implied warranty of merchantability and/or fitness for a particular purpose, with respect to such information and specifically disclaims all such warranties. Users are advised that decisions regarding drug therapy are complex medical decisions requiring the independent, informed decision of an appropriate health child care provider, and the information is provided for informational purposes only. The entire monograph for a drug should be reviewed for a thorough understanding of the drug's actions, uses and side effects. The [employer] does not endorse or recommend the use of any drug.The information is not a substitute for medical care. AHFS?? Patient Medication Information?. ?? Copyright, 2023. The [employer]??, [address], [address], [place], [place]. All Rights Reserved. Duplication for commercial use must be authorized by [facility]. Selected Revisions: October 28, 2017. AHFS?? Patient Medication Information?. ?? Copyright, 2024 * Chester Lyons RN - 04/04/2025 10:24 AM EDT Images from the original note were not included. [id number] Senna Brand Name(s): Black Draught??, Ex-Lax??, Baca's [...] and out of their sight and reach. [email or web address] Unneeded medications should be disposed of in [...] of all of the prescription and nonprescription (vlgu-jrd-ysbhwrw) medicines you are taking, as well as [...] or pharmacist about specific clinical use. The [place] [employer] represents that the information provided hereunder was formulated with a reasonable standard of care, and in conformity with professional standards in the field. The [employer] makes no representations or warranties, express or implied, including, but not limited to, any implied warranty of merchantability and/or fitness for a particular purpose, with respect to such information and specifically disclaims all such warranties. Users are advised that decisions regarding drug therapy are complex medical decisions requiring the independent, informed decision of an appropriate health child care provider, and the information is provided for informational purposes only. The entire monograph for a drug should be reviewed for a thorough understanding of the drug's actions, uses and side effects. The [employer] does not endorse or recommend the use of any drug.The information is not a substitute for medical care. AHFS?? Patient Medication Information?. ?? Copyright, 2023. The [employer]??, [address], [address], [place], [place]. All Rights Reserved. Duplication for commercial use must be authorized by [facility]. Selected Revisions: April 02, 2024. AHFS?? Patient Medication Information?. ?? Copyright, 2024 * Chester Lyons RN - 04/04/2025 10:24 AM EDT Images from the original note were not included. [id number] Polyethylene Glycol 3350 Brand Name(s): MiraLax?? PEG [...] be awakened, immediately call emergency services at 393. Symptoms of overdose may include: ? diarrhea ? thirst ? confusion ? seizure What OTHER INFORMATION should I know? Keep all appointments with your doctor. Do not let anyone else take your medication. Ask your pharmacist any questions you have about refilling your prescription. It is important for you to keep a written list of all of the prescription and nonprescription (idwu-imq-jhgeheo) medicines you are taking, as well as [...] or pharmacist about specific clinical use. The [employer] represents that the information provided hereunder was formulated with a reasonable standard of care, and in conformity with professional standards in the field. The [employer] makes no representations or warranties, express or implied, including, but not limited to, any implied warranty of merchantability and/or fitness for a particular purpose, with respect to such information and specifically disclaims all such warranties. Users are advised that decisions regarding drug therapy are complex medical decisions requiring the independent, informed decision of an appropriate health child care provider, and the information is provided for informational purposes only. The entire monograph for a drug should be reviewed for a thorough understanding of the drug's actions, uses and side effects. The [employer] does not endorse or recommend the use of any drug.The information is not a substitute for medical care. AHFS?? Patient Medication Information?. ?? Copyright, 2023. The [employer]??, [address], [address], [place], [place]. All Rights Reserved. Duplication for commercial use must be authorized by [facility]. Selected Revisions: December 27, 2015. AHFS?? Patient Medication Information?. ?? Copyright, 2024 * Neida Garland - Chester Cuevas RN - 04/04/2025 10:24 AM EDT 1087 Oxycodone Oral Tablet, Immediate Release Brand Names: Oxaydo, Roxicodone What is this medicine? Oxycodone (rs-c-ETJ-done) is an opioid pain reliever. It is [...] a special medication guide each time you sheepskin pickler this medicine. ? Overdosage: Taking too much [...] to your doctor or health child care provider as soon as possible: ? allergic reactions [...] to your doctor or health child care provider if they continue or are bothersome): ? constipation ? dry mouth ? itching ? nausea, vomiting ? upset stomach This list may not describe all possible side effects. Call your doctor for medical advice about side effects. You may report side effects to FDA at 3-036-LLV-7184. Where should I keep my medicine? This [...] location. To find a disposal location, visit [employer]/[place]. If you cannot take unused medicine to [...] from the original note were not included. [id number] Methocarbamol Brand Name(s): Robaxin??; also available generically [...] be awakened, immediately call emergency services at 080. What OTHER INFORMATION should I know? Keep all appointments with your doctor. Do not let anyone else take your medication. Ask your pharmacist any questions you have about refilling your prescription. It is important for you to keep a written list of all of the prescription and nonprescription (pevd-fpd-gzxqnsd) medicines you are taking, as well as [...] or pharmacist about specific clinical use. The [employer] represents that the information provided hereunder was formulated with a reasonable standard of care, and in conformity with professional standards in the field. The [employer] makes no representations or warranties, express or implied, including, but not limited to, any implied warranty of merchantability and/or fitness for a particular purpose, with respect to such information and specifically disclaims all such warranties. Users are advised that decisions regarding drug therapy are complex medical decisions requiring the independent, informed decision of an appropriate health child care provider, and the information is provided for informational purposes only. The entire monograph for a drug should be reviewed for a thorough understanding of the drug's actions, uses and side effects. The [place] [employer] does not endorse or recommend the use of any drug.The information is not a substitute for medical care. AHFS?? Patient Medication Information?. ?? Copyright, 2023. The [employer]??, [address], [address], [place], [place]. All Rights Reserved. Duplication for commercial use must be authorized by [facility]. Selected Revisions: May 28, 2017. AHFS?? Patient Medication Information?. ?? Copyright, 2024 * Chester Lyons RN - 04/04/2025 10:23 AM EDT Images from the original note were not included. [id number] Acetaminophen Brand Name(s): Actamin??, Feverall??, Panadol??, Tempra Quicklets??, Tylenol??, Dayquil?? (as a combination product containing Acetaminophen, Dextromethorphan, Pseudoephedrine), NyQuil Cold/Flu Relief?? (as a combination product containing Acetaminophen, Dextromethorphan, Doxylamine), Percocet?? (as a combination product containing Acetaminophen, Oxycodone) APAP, F-cccbwx-slnb-aminophenol, Paracetamol ?? This branded product is no [...] measuring cup or syringe provided by the journeyman lineman to measure each dose of the solution [...] and out of their sight and reach. [email or web address]://[email or web address] Unneeded medications should be disposed of in [...] of all of the prescription and nonprescription (lpti-pyb-iecngeu) medicines you are taking, as well as [...] or pharmacist about specific clinical use. The [place] [employer] represents that the information provided hereunder was formulated with a reasonable standard of care, and in conformity with professional standards in the field. The [employer] makes no representations or warranties, express or implied, including, but not limited to, any implied warranty of merchantability and/or fitness for a particular purpose, with respect to such information and specifically disclaims all such warranties. Users are advised that decisions regarding drug therapy are complex medical decisions requiring the independent, informed decision of an appropriate health child care provider, and the information is provided for informational purposes only. The entire monograph for a drug should be reviewed for a thorough understanding of the drug's actions, uses and side effects. The [place] [employer] does not endorse or recommend the use of any drug.The information is not a substitute for medical care. AHFS?? Patient Medication Information?. ?? Copyright, 2023. The [employer]??, [address], [address], [place], [place]. All Rights Reserved. Duplication for commercial use must be authorized by [facility]. Selected Revisions: June 28, 2023. AHFS?? Patient Medication Information?. ?? Copyright, 2024 * Discharge Summary - FrankEverett RenettaDO - 04/04/2025 9:13 AM EDT Hospitalization Admit Date/Time: 03/29/2025 9:43 AM Admitting Attending: Ирина Lopez Discharge Date: 04/04/2025 Discharge Attending Physician: Ирина Lopez MD PCP name and Address: Casa Phillips MD [address] [place] [address] / [facility] [address] Referring provider name and address: No referring [...] Your Medications These medications were sent to [facility] [place], [place] [address] [facility] [address] [facility] [place] [id number] acetaminophen 500 MG tablet methocarbamol 500 MG [...] Clinic discharge # - For urgent questions/concerns: [facility] hotline: , option 4 - ask for the thoracic surgeon production graphic designer. Outpatient Follow-Up Future Appointments Date Time Provider [...] Mobility Exam: Supine to Sit Level of Jasper: Stand-by assist Physical/Nonphysical Assist: Set-up required, HOB elevated Assistive Device: Bed rails Transfers Transfer Exam: Sit to stand Level of Jasper: Stand-by assist Physical/Nonphysical Assist: Verbal Cues, Nonverbal cues (demo/gestures), Minimal cues Assistive Device: Rollator Transfer Exam: Stand to Sit Level of Jasper: Stand-by assist Physical/Nonphysical Assist: Verbal Cues, Nonverbal [...] to areas of treatment space. Standardized Assessments [facility] 6-Clicks Mobility Assessment Difficulty patient has [...] 3-5 steps with a railing?: A little [facility] 6-Clicks Mobility Assessment Total : 21 [...] for assistance with DME. Referrals sent to [facility] for Rollator to be delivered to bedside today. * Progress Notes - Patricia Torres N - 04/03/2025 11:49 AM EDT Occupational Therapy Treatment Patient Name: Michelle Feliz Jr. Today's Date: 04/03/2025 OT Discharge Recommendations: Home with 24 hour assistance Equipment Recommended: Rollator Subjective Pt consent to tx Participants in Care Family/Caregiver Present: Yes Family/Caregiver: Adult Daughter Revenue Field Auditor: Not Applicable Presentation Oxygen Therapy: None (Room [...] Mobility Exam: Supine to Sit Level of Jasper: Stand-by assist Physical/Nonphysical Assist: Set-up required, HOB elevated Transfers Transfer Exam: Sit to stand Level of Jasper: Stand-by assist Physical/Nonphysical Assist: Verbal Cues, Nonverbal cues (demo/gestures), Minimal cues Assistive Device: Rollator Transfer Exam: Stand to Sit Level of Jasper: Stand-by assist Physical/Nonphysical Assist: Verbal Cues, Nonverbal [...] reaches 6. Pt verbalizes understanding. Standardized Assessments [facility] 6-Click Daily Activities Help from Other: Don/Doff Regular Lower Body Clothings: Little Help From Other: Bathing: Little Help From Other: Toileting: Little Help From Other: Don/Doff Upper Body Clothings: Little Help From Other: Grooming: Little Help From Other: Eating Meals: None [facility] 6 Click - Daily Activities Score: 19 [...] from the original note were not included. [facility] Department of Surgery Section of [...] disease, without long-term current use of insulin ([facility]) Microalbuminuria Tobacco use disorder Second hand [...] Mobility Bed Mobility Exam: Scooting/Bridging Level of Jasper: Minimum assist (75% patient's effort) Physical/Nonphysical Assist: Verbal Cues, Nonverbal cues (demo/gestures), Minimal cues Bed Mobility Exam: Supine to Sit Level of Jasper: Minimum assist (75% patient's effort) Physical/Nonphysical Assist: Verbal Cues, Nonverbal cues (demo/gestures), HOB elevated Bed Mobility Exam: Sit to Supine Level of Jasper: Minimum assist (75% patient's effort) Physical/Nonphysical Assist: Verbal Cues, Minimal cues Transfers Transfer Exam: Sit to stand Level of Jasper: Minimum assist (75% patient's effort) Physical/Nonphysical Assist: Verbal Cues, Nonverbal cues (demo/gestures), Minimal cues Assistive Device: Rollator Transfer Exam: Stand to Sit Level of Jasper: Minimum assist (75% patient's effort) Physical/Nonphysical Assist: [...] Level of Mobility Ambulatory- household only Mobility Jasper Independent gait without device History of Falls [...] Ambulating in-room distances since last PT treatment. Revenue Field Auditor (if applicable) OBJECTIVE & INTERVENTIONS PAIN Pt was without complaints of pain throughout the PT treatment. DELIRIUM SCREENING Curtis Agitation Sedation Scale (RASS): Alert and calm Feature 3: Altered Level of Consciousness: Negative THERAPEUTIC ACTIVITY Treatment Minutes 25 BED MOBILITY Level of Jasper Physical/Non- physical Assist Adaptive Equipment Utilized Scooting/ [...] with supine <> sit TRANSFERS Level of Jasper Physical/Non- physical Assist Adaptive Equipment Utilized Sit to Stand Minimum assist (75% patient's effort) Verbal Cues, Nonverbal cues (demo/gestures), Minimal cues Rollator Stand to sit Minimum assist (75% patient's effort) Verbal Cues, Nonverbal cues (demo/gestures), Minimal cues Rollator Interventions PT cued for proper hand placement and forward trunk lean prior to completing STS transfers BALANCE Postural Appearance Posture: Stooped posture Level of Jasper Balance Support Interventions Static Sit Standby assist [...] Left upper extremity support AMBULATION Level of Jasper Distance Adaptive Equipment Utilized Ambulation Contact guard [...] falling while progressing pt's distances Standardized Assessments [facility] 6-Clicks Mobility Assessment Difficulty patient has [...] climbing 3-5 steps with a railing?: Unable [facility] 6-Clicks Mobility Assessment Total : 16 [...] from the original note were not included. [facility] Department of Surgery Section of [...] disease, without long-term current use of insulin ([facility]) Microalbuminuria Tobacco use disorder Second hand [...] disease, without long-term current use of insulin ([facility]) Anemia Electrolyte abnormality Plan: - Keep [...] from the original note were not included. [facility] Department of Surgery Section of [...] abnormality Overview Signed 03/30/2025 3:18 PM by Scralet Gamboa APRN Hypocalcemia Hypomagnesemia Hypophosphatemia Monitor - [...] by: Ximena Aguilar MBBS at 04/01/2025 1031 [facility] Thoracic Surgery Cosigned by Lamont Whitley [...] Michelle Feliz Jr. 79 y.o. male CSN: [id number] Admission: 03/29/2025 9:43 AM Primary Problem: Non-small cell cancer of left lung (CMS/HCC) Hunter Guide reviewed chart and spoke with the patient at bedside to complete this Initial Case Management Assessment. PCP: Casa Phillips MD Emergency Contact: Extended Emergency Contact Information Primary Emergency Contact: Elliot Feliz Relation: Son Revenue Field Auditor needed? No Secondary Emergency Contact: Nora Feliz Relation: Daughter Revenue Field Auditor needed? No Insurance: Primary Visit Coverage Payer Plan Sponsor Code Group Number Group Name [facility] MEDICARE [facility] [employer] [id number] Primary Visit Coverage Subscriber Subscriber ID Subscriber Name Subscriber N Subscriber Address [id number] MICHELLE FELIZ JR [id number] [place] [address] Patient information: Primary Caregiver: Self Support System: Immediate family Daily Living Activities: Functional Status: Independent Living Arrangements: Children Type of Residence: Private residence, Single Level [address] [place] [address] Current DME: Equipment Currently Used at Home: [...] DME Provider: n/a Living Will/Advance Directive/Power of Actuarial Science Professor /Guardian: Have you reviewed your Advance Directive [...] Patient has Anthem Medicare insurance and uses [facility]. Family will assist and transport at [...] from the original note were not included. [facility] Department of Surgery Section of [...] Level of Mobility: Ambulatory- household only Mobility Jasper: Independent gait without device History of Falls: [...] Mobility Bed Mobility Exam: Scooting/Bridging Level of Jasper: Maximum assist (25% patient's effort) (to scoot to EOB while seated) Physical/Nonphysical Assist: Verbal Cues, Nonverbal cues (demo/gestures) Bed Mobility Exam: Supine to Sit Level of Jasper: Maximum assist (25% patient's effort) Physical/Nonphysical Assist: Verbal Cues, Nonverbal cues (demo/gestures), Additional assist utilized for safety, HOB elevated Transfers Transfer Exam: Sit to stand Level of Jasper: Moderate assist (50% patient's effort) Physical/Nonphysical Assist: Verbal Cues, Nonverbal cues (demo/gestures), Additional assist utilized for safety Transfer Exam: Stand to Sit Level of Jasper: Moderate assist (50% patient's effort) Physical/Nonphysical Assist: [...] session. Standardized Assessments Standardized Assessments Standardized Assessments: [facility] 6-Clicks Mobility Assessment [facility] 6-Clicks Mobility Assessment Difficulty patient has [...] climbing 3-5 steps with a railing?: Unable [facility] 6-Clicks Mobility Assessment Total : 11 [...] Level of Mobility: Ambulatory- household only Mobility Jasper: Independent gait without device History of Falls: [...] Mobility Bed Mobility Exam: Scooting/Bridging Level of Jasper: Maximum assist (25% patient's effort) (to scoot to EOB while seated) Physical/Nonphysical Assist: Verbal Cues, Nonverbal cues (demo/gestures) Bed Mobility Exam: Supine to Sit Level of Jasper: Maximum assist (25% patient's effort) Physical/Nonphysical Assist: Verbal Cues, Nonverbal cues (demo/gestures), Additional assist utilized for safety, HOB elevated Transfers Transfer Exam: Sit to stand Level of [place]: Moderate assist (50% patient's effort) Physical/Nonphysical Assist: Verbal Cues, Nonverbal cues (demo/gestures), Additional assist utilized for safety Transfer Exam: Stand to Sit Level of [place]: Moderate assist (50% patient's effort) Physical/Nonphysical Assist: [...] continued education to improve carryover. Standardized Assessments [facility] 6-Click Daily Activities Help from Other: Don/Doff Regular Lower Body Clothings: A lot Help From Other: Bathing: A lot Help From Other: Toileting: A lot Help From Other: Don/Doff Upper Body Clothings: Little Help From Other: Grooming: Little Help From Other: Eating Meals: None [facility] 6 Click - Daily Activities Score: 16 [...] from the original note were not included. [facility] Department of Surgery Section of [...] PM EDT Operative Note Date: 03/29/25 Location: [place] Name: Michelle Feliz , : 1945, Diagnoses: Pre-op Diagnosis Non-small cell cancer of left lung (CMS/HCC) Post-op Diagnosis Non-small cell cancer of left lung (CMS/HCC) Procedure(s): Bronchoscopy, left VATS converted to thoracotomy, left upper lobectomy, mediastinal lymph node dissection, intercostal nerve blocks Attending Surgeon(s): Ирина Durán - Primary Hasher Machine Operator(s): * Carl Hamlin MD - Resident [...] spaces under direct visualization. A single 24 [place] Island[place] chest tube was placed through the camera [...] throughout the entire procedure. Submitted by: Ирина Loepz MD - 03/29/2025 * H&P - Carl [...] responses Results Review {Vanishing Link Review Results :[id number] I have reviewed the latest lab and [...] card, photo ID, along with power of insurance defense attorney, guardianship or advanced directives if applicable [...] Cassidy APRN - 03/18/2025 8:35 AM EDT [facility] Michelle Feliz Jr. is a 79 [...] Upcoming Encounters Date Type Department Care Team ([facility] Contact Info) Description 07/06/2025 10:40 AM EDT Office Visit Pav [facility] Head[facility] Neck [facility] Respiratory [address] [facility], [address]nd [place] [address] Nikolai Naranjo MD [address] [facility] Lorin Avila [facility] [address] [place] [address] (work) documented as of this encounter Procedures [...] Non-small cell cancer of left lung (CMS/HCC) [place] THORACOSCOPY SURG LOBECTOMY 03/29/2025 1:24 PM EDT [...] Comment 04/04/2025 8:36 AM EDT [facility]ARE [facility] Food Service Representative ID Sandy Kramer 04/04/2025 8:36 AM EDT [facility]ARE LAB Device ID [id number] 04/04/2025 8:36 AM EDT [facility] Specimen Type POC Capillary 04/04/2025 8:36 AM EDT [facility] Blood Capillary blood specimen / Unknown 04/04/2025 8:34 AM EDT 04/04/2025 8:36 AM EDT Ирина Lopez MD LAB POINT OF CARE TE ST DOCKED DEVICE UNSOLICITED RESULTS Final Result [facility] [address] [place] [address] * XR Chest 1 View (04/04/2025 5:20 [...] MD on 04/04/2025 10:20 AM Scarlet Gamboa 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 XR PROCEDURES Final Resul t * (ABNORMAL) Renal Function Panel, Plasma (04/04/2025 2:19 AM EDT) Glucose, Plasma 166(H) 74 - 99 mg/dL 04/04/2025 2:53 AM EDT [facility] BUN, Plasma 18 8 - 23 mg/dL 04/04/2025 2:53 AM EDT [facility] Creatinine, Plasma 1.31(H) 0.70 - 1.20 mg/dL 04/04/2025 2:53 AM EDT [facility] BUN/Creatinine Ratio 14 04/04/2025 2:53 AM EDT [facility] Sodium, Plasma 136 136 - 145 mmol/L 04/04/2025 2:53 AM EDT [facility] Potassium, Plasma 4.3 3.6 - 4.9 mmol/L 04/04/2025 2:53 AM EDT [facility] Chloride, Plasma 103 97 - 107 mmol/L 04/04/2025 2:53 AM EDT [facility] CO2, Plasma 22 22 - 29 mmol/L 04/04/2025 2:53 AM EDT [facility] Anion Gap 11 6 - 16 mmol/L 04/04/2025 2:53 AM EDT [facility] Total Calcium, Plasma 8.2(L) 8.9 - 10.2 mg/dL 04/04/2025 2:53 AM EDT [facility] Phosphorus, Plasma 3.1 2.5 - 4.5 mg/dL 04/04/2025 2:53 AM EDT [facility] Albumin, Plasma 3.0(L) 3.5 - 5.2 g/dL 04/04/2025 2:53 AM EDT [facility] eGFRcr 55.7 mL/min/1.7 3m*2 04/04/2025 2:53 AM EDT [facility] Comment:Reported eGFRcr in m L/min/1.73m2 is based the CKD-EPI 2020 equation that does not use a race coefficient. Blood Venous blood specimen / Unknown Venipuncture / Unknown 04/04/2025 2:19 AM EDT 04/04/2025 2:24 AM EDT Ирина Lopez MD LAB BLOOD ORDERABLES Final R esult [facility] [address] [place] [address] * (ABNORMAL) Magnesium, Plasma (04/04/2025 2:19 AM EDT) Magnesium, Plasma 1.8(L) 1.9 - 2.4 mg/dL 04/04/2025 2:53 AM EDT [facility] Blood Venous blood specimen / Unknown Venipuncture / Unknown 04/04/2025 2:19 AM EDT 04/04/2025 2:24 AM EDT us Ирина Lopez MD LAB BLOOD ORDERABLES Final R esult [facility] [address] [place] [address] * (ABNORMAL) CBC W/O Differential (04/04/2025 2:19 AM EDT) WBC Count 5.44 3.70 - 10.30 10*3/uL LAB HEMATOLOGY METHOD 04/04/2025 2:33 AM EDT [facility] RBC Count 3.77(L) 4.60 - 6.10 10*6/uL LAB HEMATOLOGY METHOD 04/04/2025 2:33 AM EDT [facility] HGB 10.7(L) 13.7 - 17.5 g/dL LAB HEMATOLOGY METHOD 04/04/2025 2:33 AM EDT [facility] HCT 32.4(L) 40.0 - 51.0 % LAB HEMATOLOGY METHOD 04/04/2025 2:33 AM EDT [facility] Platelet Count 220 155 - 369 10*3/uL LAB HEMATOLOGY METHOD 04/04/2025 2:33 AM EDT [facility] MCV 86 79 - 98 fL LAB HEMATOLOGY METHOD 04/04/2025 2:33 AM EDT [facility] MCH 28.4 26.0 - 32.0 pg LAB HEMATOLOGY METHOD 04/04/2025 2:33 AM EDT [facility] MCHC 33.0 30.7 - 35.5 g/dL LAB HEMATOLOGY METHOD 04/04/2025 2:33 AM EDT [facility] RDW 14.7(H) 11.5 - 14.5 % LAB HEMATOLOGY METHOD 04/04/2025 2:33 AM EDT [facility] MPV 9.1 8.8 - 12.5 fL LAB HEMATOLOGY METHOD 04/04/2025 2:33 AM EDT [facility] nRBC 0.4(H) <=0.0 per 100 WBCs LAB HEMATOLOGY METHOD 04/04/2025 2:33 AM EDT [facility] Blood Venous blood specimen / Unknown Venipuncture / Unknown 04/04/2025 2:19 AM EDT 04/04/2025 2:24 AM EDT us Ирина Lopez MD LAB BLOOD ORDERABLES Final R esult Performing Organization Address City/[facility]/ZIP Co de Phone Number [facility] [address] [place] [address] * (ABNORMAL) POCT glucose meter (04/03/2025 8:25 [...] for testing. Comment 04/03/2025 8:28 PM EDT [facility] Food Service Representative ID Obdulio Navarro 04/03/2025 8:28 PM EDT [facility] Device ID [id number] 04/03/2025 8:28 PM EDT [facility] Specimen Type POC Capillary 04/03/2025 8:28 PM EDT [facility] Blood Capillary blood specimen / Unknown 04/03/2025 8:25 PM EDT 04/03/2025 8:28 PM EDT us Ирина Lopez MD LAB POINT OF CARE TE ST DOCKED DEVICE UNSOLICITED RESULTS Final Result Performing Organization Address City/[facility] Co de Phone Number [facility]ALTHCARE LAB [address] [place] [address] * (ABNORMAL) POCT glucose meter (04/03/2025 5:27 [...] Comment 04/03/2025 5:29 PM EDT [facility] Food Service Representative ID Anayeli Castro 025 5:29 PM EDT [facility]ARE LAB Device ID [id number] 04/03/2025 5:29 PM EDT [facility] Specimen Type POC Capillary 04/03/2025 5:29 PM EDT [facility] Blood Capillary blood specimen / Unknown 04/03/2025 5:27 PM EDT 04/03/2025 5:29 PM EDT us Ирина Lopez MD LAB POINT OF CARE TE ST DOCKED DEVICE UNSOLICITED RESULTS Final Result Performing Organization Address City/State/[facility] Co de Phone Number [facility]ARE LAB [address] [place], [place] [id number] * XR Chest 1 View (04/03/2025 1:09 [...] Comment 04/03/2025 12:17 PM EDT [facility] LAB Food Service Representative ID Anayeli Castro 025 12:17 PM EDT [facility] Device ID [id number] 04/03/2025 12:17 PM EDT [facility] Specimen Type POC Capillary 04/03/2025 12:17 PM EDT [facility] Blood Capillary blood specimen / Unknown 04/03/2025 12:15 PM EDT 04/03/2025 12:17 PM EDT Ирина Lopez MD LAB POINT OF CARE TE ST DOCKED DEVICE UNSOLICITED RESULTS Final Result [facility] [address] [place] [address] * (ABNORMAL) POCT glucose meter (04/03/2025 8:46 [...] Comment 04/03/2025 8:48 AM EDT [facility]ARE LAB Food Service Representative ID Anayeli Castro 025 8:48 AM EDT [facility]ARE LAB Device ID [id number] 04/03/2025 8:48 AM EDT [facility] Specimen Type POC Capillary 04/03/2025 8:48 AM EDT [facility] Blood Capillary blood specimen / Unknown 04/03/2025 8:46 AM EDT 04/03/2025 8:48 AM EDT us Ирина Lopez MD LAB POINT OF CARE TE ST DOCKED DEVICE UNSOLICITED RESULTS Final Result Performing Organization Address City/State/[facility] de Phone Number [facility]ALTHCARE LAB [address] [place] [address] * XR Chest 1 View (04/03/2025 5:53 [...] on 04/03/2025 9:52 AM Scarlet A Cooper 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 XR PROCEDURES Final Resul t * (ABNORMAL) Renal Function Panel, Plasma (04/03/2025 3:45 AM EDT) Glucose, Plasma 131(H) 74 - 99 mg/dL 04/03/2025 4:24 AM EDT [facility] BUN, Plasma 16 8 - 23 mg/dL 04/03/2025 4:24 AM EDT [facility] Creatinine, Plasma 1.34(H) 0.70 - 1.20 mg/dL 04/03/2025 4:24 AM EDT [facility] BUN/Creatinine Ratio 12 04/03/2025 4:24 AM EDT [facility] Sodium, Plasma 135(L) 136 - 145 mmol/L 04/03/2025 4:24 AM EDT [facility] Potassium, Plasma 4.9 3.6 - 4.9 mmol/L 04/03/2025 4:24 AM EDT [facility] Chloride, Plasma 103 97 - 107 mmol/L 04/03/2025 4:24 AM EDT [facility] CO2, Plasma 21(L) 22 - 29 mmol/L 04/03/2025 4:24 AM EDT [facility] Anion Gap 11 6 - 16 mmol/L 04/03/2025 4:24 AM EDT [facility] Total Calcium, Plasma 7.7(L) 8.9 - 10.2 mg/dL 04/03/2025 4:24 AM EDT [facility] Phosphorus, Plasma 2.2(L) 2.5 - 4.5 mg/dL 04/03/2025 4:24 AM EDT [facility] Albumin, Plasma 2.8(L) 3.5 - 5.2 g/dL 04/03/2025 4:24 AM EDT [facility] eGFRcr 54.2 mL/min/1.7 3m*2 04/03/2025 4:24 AM EDT [facility] Comment:Reported eGFRcr in m L/min/1.73m2 is based the CKD-EPI 2020 equation that does not use a race coefficient. Blood Venous blood specimen / Unknown Venipuncture / Unknown 04/03/2025 3:45 AM EDT 04/03/2025 3:54 AM EDT Ирина Lopez MD LAB BLOOD ORDERABLES Final R esult Performing Organization Address City/[facility]/ZIP Co de Phone Number [facility] [address] [place] [address] * Magnesium, Plasma (04/03/2025 3:45 AM EDT) Pathologist [facility] Magnesium, Plasma 2.0 1.9 - 2.4 mg/dL 04/03/2025 4:24 AM EDT [facility] Blood Venous blood specimen / Unknown Venipuncture / Unknown 04/03/2025 3:45 AM EDT 04/03/2025 3:54 AM EDT Ирина Lopez MD LAB BLOOD ORDERABLES Final R esult Performing Organization Address City/[facility]/ZIP Co de Phone Number [facility] [address] [place] [address] * (ABNORMAL) CBC W/O Differential (04/03/2025 3:45 AM EDT) WBC Count 6.54 3.70 - 10.30 10*3/uL LAB HEMATOLOGY METHOD 04/03/2025 4:09 AM EDT [facility] RBC Count 3.42(L) 4.60 - 6.10 10*6/uL LAB HEMATOLOGY METHOD 04/03/2025 4:09 AM EDT [facility] HGB 9.8(L) 13.7 - 17.5 g/dL LAB HEMATOLOGY METHOD 04/03/2025 4:09 AM EDT [facility] HCT 29.2(L) 40.0 - 51.0 % LAB HEMATOLOGY METHOD 04/03/2025 4:09 AM EDT [facility] Platelet Count 209 155 - 369 10*3/uL LAB HEMATOLOGY METHOD 04/03/2025 4:09 AM EDT [facility] MCV 85 79 - 98 fL LAB HEMATOLOGY METHOD 04/03/2025 4:09 AM EDT [facility] MCH 28.7 26.0 - 32.0 pg LAB HEMATOLOGY METHOD 04/03/2025 4:09 AM EDT [facility] MCHC 33.6 30.7 - 35.5 g/dL LAB HEMATOLOGY METHOD 04/03/2025 4:09 AM EDT [facility] RDW 15.0(H) 11.5 - 14.5 % LAB HEMATOLOGY METHOD 04/03/2025 4:09 AM EDT [facility] MPV 9.4 8.8 - 12.5 fL LAB HEMATOLOGY METHOD 04/03/2025 4:09 AM EDT [facility] nRBC 0.0 <=0.0 per 100 WBCs LAB HEMATOLOGY METHOD 04/03/2025 4:09 AM EDT [facility] Blood Venous blood specimen / Unknown Venipuncture / Unknown 04/03/2025 3:45 AM EDT 04/03/2025 3:54 AM EDT us Ирина Lopez MD LAB BLOOD ORDERABLES Final R esult [facility] [address] [place] [address] * (ABNORMAL) POCT glucose meter (04/02/2025 8:16 [...] Comment 04/02/2025 8:20 PM EDT [facility]ALTHCARE LAB Food Service Representative ID Jil Ruiz 8:20 PM EDT [facility]ALTH[facility]ARE LAB Device ID [id number] 04/02/2025 8:20 PM EDT [facility]ARE LAB Specimen Type POC Capillary 04/02/2025 8:20 PM EDT [facility] Blood Capillary blood specimen / Unknown 04/02/2025 8:16 PM EDT 04/02/2025 8:20 PM EDT us Ирина Lopez MD LAB POINT OF CARE TE ST DOCKED DEVICE UNSOLICITED RESULTS Final Result Performing Organization Address City/[facility]/ZIP Co de Phone Number [facility]ALTHCARE LAB [address] [place] [address] * (ABNORMAL) POCT glucose meter (04/02/2025 5:20 [...] Comment 04/02/2025 5:22 PM EDT [facility]ALTH[facility]ARE LAB Food Service Representative ID Kenn Cabrera 04/02/2025 5:22 PM EDT HEALTHCARE LAB Device ID [id number] 04/02/2025 5:22 PM EDT [facility]ARE LAB Specimen Type POC Capillary 04/02/2025 5:22 PM EDT [facility] Blood Capillary blood specimen / Unknown 04/02/2025 5:20 PM EDT 04/02/2025 5:22 PM EDT us Ирина Lopez MD LAB POINT OF CARE TE ST DOCKED DEVICE UNSOLICITED RESULTS Final Result Performing Organization Address City/[facility]/ZIP Co de Phone Number [facility]ARE [facility] [address] [place] [address] * (ABNORMAL) CBC W/O Differential (04/02/2025 3:02 PM EDT) WBC Count 6.02 3.70 - 10.30 10*3/uL LAB HEMATOLOGY METHOD 04/02/2025 3:27 PM EDT [facility] RBC Count 3.09(L) 4.60 - 6.10 10*6/uL LAB HEMATOLOGY METHOD 04/02/2025 3:27 PM EDT [facility] HGB 8.9(L) 13.7 - 17.5 g/dL LAB HEMATOLOGY METHOD 04/02/2025 3:27 PM EDT [facility] HCT 26.9(L) 40.0 - 51.0 % LAB HEMATOLOGY METHOD 04/02/2025 3:27 PM EDT [facility] Platelet Count 129(L) 155 - 369 10*3/uL LAB HEMATOLOGY METHOD 04/02/2025 3:27 PM EDT [facility] MCV 87 79 - 98 fL LAB HEMATOLOGY METHOD 04/02/2025 3:27 PM EDT [facility] MCH 28.8 26.0 - 32.0 pg LAB HEMATOLOGY METHOD 04/02/2025 3:27 PM EDT [facility] MCHC 33.1 30.7 - 35.5 g/dL LAB HEMATOLOGY METHOD 04/02/2025 3:27 PM EDT [facility] RDW 14.4 11.5 - 14.5 % LAB HEMATOLOGY METHOD 04/02/2025 3:27 PM EDT [facility] MPV 9.9 8.8 - 12.5 fL LAB HEMATOLOGY METHOD 04/02/2025 3:27 PM EDT [facility] nRBC 0.0 <=0.0 per 100 WBCs LAB HEMATOLOGY METHOD 04/02/2025 3:27 PM EDT [facility] Blood Venous blood specimen / Unknown Venipuncture / Unknown 04/02/2025 3:02 PM EDT 04/02/2025 3:20 PM EDT us Scarlet Gamboa BURNING MACHINE OPERATOR LAB BLOOD ORDERABLES Final Re sult [facility] [address] [place] [address] * Transfuse RBC (04/02/2025 2:53 PM EDT) Scarlet Gamboa APRN BLOOD TRANSFUSION ORDERABLES Final Result * Transfuse RBC: 2 Units (04/02/2025 2:53 PM EDT) Scarlet Gamboa APRN BLOOD TRANSFUSION ORDERABLES Edited Result - Final * (ABNORMAL) POCT glucose meter (04/02/2025 12:28 PM EDT) [facility] POCT Glucose 149(H) 74 - 99 mg/dL [...] Comment 04/02/2025 12:30 PM EDT HEALTHCARE LAB Food Service Representative ID Kenn Cabrera 04/02/2025 12:30 PM EDT HEALTHCARE LAB Device ID [id number] 04/02/2025 12:30 PM EDT [facility]ARE LAB Specimen Type POC Capillary 04/02/2025 12:30 PM EDT [facility] Blood Capillary blood specimen / Unknown 04/02/2025 12:28 PM EDT 04/02/2025 12:30 PM EDT Ирина Lopez MD LAB POINT OF CARE TE ST DOCKED DEVICE UNSOLICITED RESULTS Final Result [facility] [address] [place] [address] * Transfuse RBC (04/02/2025 12:16 PM EDT) [...] Comment 04/02/2025 8:33 AM EDT [facility]ALTHCARE LAB Food Service Representative ID WinonaMartha schmitz 04/02/2025 8:33 AM EDT [facility] Device ID [id number] 04/02/2025 8:33 AM EDT [facility] Specimen Type POC Capillary 04/02/2025 8:33 AM EDT [facility] Blood Capillary blood specimen / Unknown 04/02/2025 8:31 AM EDT 04/02/2025 8:33 AM EDT us Ирина Lopez MD LAB POINT OF CARE TE ST DOCKED DEVICE UNSOLICITED RESULTS Final Result [facility] [address] [place] [id number] * Prepare Leukocyte Reduced RBC: 2 Units (04/02/2025 7:58 AM EDT) Product Code B2742P28 CH BLOO D BANK Dispense Status Transfused BLOOD BANK Blood Expiration Date [id number] BLOOD BANK Unit Number [id number] CH B LOOD BANK Product Blood Type 6200 CH BLOOD BANK Blood Type A+ CH BLOOD BANK Crossmatch Compatible CH BLOOD BANK Product Code [id number] CH BLOO D BANK Dispense Status Transfused CH BLOOD BANK Blood Expiration Date [id number] BLOOD BANK Unit Number [id number] CH B LOOD BANK Product Blood Type 6200 CH BLOOD BANK Blood Type A+ CH BLOOD BANK Crossmatch Compatible BLOOD BANK Other us Scarlet Gamboa APRN BLOOD BANK PRODUCT ORDERABLES Final Result Performing Organization Address [facility] de Phone Number BLOOD BANK [address] [place] [address], [place] * Type and Screen (04/02/2025 6:36 [...] ORDERABL ES Final Result Performing Organization Address [facility] Co de Phone Number BLOOD BANK [address] [place] [address], [place] * XR Chest 1 View (04/02/2025 [...] - 99 mg/dL 04/02/2025 5:51 AM EDT [facility] BUN, Plasma 16 8 - 23 mg/dL 04/02/2025 5:51 AM EDT [facility] Creatinine, Plasma 1.47(H) 0.70 - 1.20 mg/dL 04/02/2025 5:51 AM EDT [facility] BUN/Creatinine Ratio 11 04/02/2025 5:51 AM EDT [facility] Sodium, Plasma 137 136 - 145 mmol/L 04/02/2025 5:51 AM EDT [facility] Potassium, Plasma 4.3 3.6 - 4.9 mmol/L 04/02/2025 5:51 AM EDT [facility] Chloride, Plasma 104 97 - 107 mmol/L 04/02/2025 5:51 AM EDT [facility] CO2, Plasma 24 22 - 29 mmol/L 04/02/2025 5:51 AM EDT [facility] Anion Gap 9 6 - 16 mmol/L 04/02/2025 5:51 AM EDT [facility] Total Calcium, Plasma 7.8(L) 8.9 - 10.2 mg/dL 04/02/2025 5:51 AM EDT [facility] Phosphorus, Plasma 2.6 2.5 - 4.5 mg/dL 04/02/2025 5:51 AM EDT [facility] Albumin, Plasma 2.8(L) 3.5 - 5.2 g/dL 04/02/2025 5:51 AM EDT [facility] eGFRcr 48.5 mL/min/1.7 3m*2 04/02/2025 5:51 AM EDT [facility] Comment:Reported eGFRcr in m L/min/1.73m2 is based the CKD-EPI 2020 equation that does not use a race coefficient. Blood Venous blood specimen / Unknown Venipuncture / Unknown 04/02/2025 4:32 AM EDT 04/02/2025 5:20 AM EDT us Ирина Lopez MD LAB BLOOD ORDERABLES Final R esult [facility] [address] [place] [address] * Magnesium, Plasma (04/02/2025 4:32 AM EDT) Magnesium, Plasma 1.9 1.9 - 2.4 mg/dL 04/02/2025 5:51 AM EDT [facility] Blood Venous blood specimen / Unknown Venipuncture / Unknown 04/02/2025 4:32 AM EDT 04/02/2025 5:20 AM EDT us Ирина Lopez MD LAB BLOOD ORDERABLES Final R esult [facility] [address] [place] [address] * (ABNORMAL) CBC W/O Differential (04/02/2025 4:32 AM EDT) WBC Count 6.22 3.70 - 10.30 10*3/uL LAB HEMATOLOGY METHOD 04/02/2025 5:31 AM EDT [facility] RBC Count 2.14(L) 4.60 - 6.10 10*6/uL LAB HEMATOLOGY METHOD 04/02/2025 5:31 AM EDT [facility] HGB 6.4(LL) 13.7 - 17.5 g/dL LAB HEMATOLOGY METHOD 04/02/2025 5:31 AM EDT [facility] HCT 19.0(LL) 40.0 - 51.0 % LAB HEMATOLOGY METHOD 04/02/2025 5:31 AM EDT [facility] Platelet Count 180 155 - 369 10*3/uL LAB HEMATOLOGY METHOD 04/02/2025 5:31 AM EDT [facility] MCV 89 79 - 98 fL LAB HEMATOLOGY METHOD 04/02/2025 5:31 AM EDT [facility] MCH 29.9 26.0 - 32.0 pg LAB HEMATOLOGY METHOD 04/02/2025 5:31 AM EDT [facility] MCHC 33.7 30.7 - 35.5 g/dL LAB HEMATOLOGY METHOD 04/02/2025 5:31 AM EDT [facility] RDW 14.0 11.5 - 14.5 % LAB HEMATOLOGY METHOD 04/02/2025 5:31 AM EDT [facility] MPV 9.9 8.8 - 12.5 fL LAB HEMATOLOGY METHOD 04/02/2025 5:31 AM EDT [facility] nRBC 0.0 <=0.0 per 100 WBCs LAB HEMATOLOGY METHOD 04/02/2025 5:31 AM EDT [facility] Blood Venous blood specimen / Unknown Venipuncture / Unknown 04/02/2025 4:32 AM EDT 04/02/2025 5:20 AM EDT us Ирина Lopez MD LAB BLOOD ORDERABLES Final R esult Performing Organization Address City/[facility]/ZIP Co de Phone Number [facility] [address] [place] [address] * (ABNORMAL) POCT glucose meter (04/01/2025 8:14 [...] Comment 04/01/2025 8:16 PM EDT HEALTHCARE LAB Food Service Representative ID Jil Ruiz 8:16 PM EDT HEALTHCARE LAB Device ID [id number] 04/01/2025 8:16 PM EDT [facility] Specimen Type POC Capillary 04/01/2025 8:16 PM EDT [facility] Blood Capillary blood specimen / Unknown 04/01/2025 8:14 PM EDT 04/01/2025 8:16 PM EDT us Ирина Lopez MD LAB POINT OF CARE TE ST DOCKED DEVICE UNSOLICITED RESULTS Final Result Performing Organization Address City/[facility]/ZIP Co de Phone Number HEALTHCARE LAB [address] [place] [address] * (ABNORMAL) POCT glucose meter (04/01/2025 5:26 [...] 04/01/2025 5:29 PM EDT [facility] Food Service Representative ID Kenn Cabrera 04/01/2025 5:29 PM EDT [facility] Device ID [id number] 04/01/2025 5:29 PM EDT [facility]ALTH[facility]ARE LAB Specimen Type POC Capillary 04/01/2025 5:29 PM EDT [facility] Blood Capillary blood specimen / Unknown 04/01/2025 5:26 PM EDT 04/01/2025 5:29 PM EDT Ирина Lopez MD LAB POINT OF CARE TE ST DOCKED DEVICE UNSOLICITED RESULTS Final Result Performing Organization Address City/State/[facility] Co de Phone Number [facility] [address] [place] [address] * (ABNORMAL) POCT glucose meter (04/01/2025 12:49 PM EDT) [facility] POCT Glucose 162(H) 74 - 99 mg/dL [...] 04/01/2025 12:51 PM EDT [facility] Food Service Representative ID Kenn Cabrera 04/01/2025 12:51 PM EDT [facility] Device ID [id number] 04/01/2025 12:51 PM EDT [facility] Specimen Type POC Capillary 04/01/2025 12:51 PM EDT [facility] Blood Capillary blood specimen / Unknown 04/01/2025 12:49 PM EDT 04/01/2025 12:51 PM EDT Ирина Lopez MD LAB POINT OF CARE TE ST DOCKED DEVICE UNSOLICITED RESULTS Final Result Performing Organization Address City/[facility] Co de Phone Number [facility] [address] [place] [address] * (ABNORMAL) POCT glucose meter (04/01/2025 8:43 [...] 04/01/2025 8:45 AM EDT [facility] Food Service Representative ID Kenn Cabrera 04/01/2025 8:45 AM EDT [facility] Device ID [id number] 04/01/2025 8:45 AM EDT [facility] Specimen Type POC Capillary 04/01/2025 8:45 AM EDT [facility] Blood Capillary blood specimen / Unknown 04/01/2025 8:43 AM EDT 04/01/2025 8:45 AM EDT Ирина Lopez MD LAB POINT OF CARE TE ST DOCKED DEVICE UNSOLICITED RESULTS Final Result Performing Organization Address City/[facility] Co de Phone Number [facility] [address] [place] [address] * XR Chest 1 View (04/01/2025 5:41 [...] - 99 mg/dL 04/01/2025 4:24 AM EDT [facility] BUN, Plasma 20 8 - 23 mg/dL 04/01/2025 4:24 AM EDT [facility] Creatinine, Plasma 1.67(H) 0.70 - 1.20 mg/dL 04/01/2025 4:24 AM EDT [facility] BUN/Creatinine Ratio 12 04/01/2025 4:24 AM EDT [facility] Sodium, Plasma 136 136 - 145 mmol/L 04/01/2025 4:24 AM EDT [facility] Potassium, Plasma 4.3 3.6 - 4.9 mmol/L 04/01/2025 4:24 AM EDT [facility] Chloride, Plasma 101 97 - 107 mmol/L 04/01/2025 4:24 AM EDT [facility] CO2, Plasma 24 22 - 29 mmol/L 04/01/2025 4:24 AM EDT [facility] Anion Gap 11 6 - 16 mmol/L 04/01/2025 4:24 AM EDT [facility] Total Calcium, Plasma 8.1(L) 8.9 - 10.2 mg/dL 04/01/2025 4:24 AM EDT [facility] Phosphorus, Plasma 2.5 2.5 - 4.5 mg/dL 04/01/2025 4:24 AM EDT [facility] Albumin, Plasma 3.0(L) 3.5 - 5.2 g/dL 04/01/2025 4:24 AM EDT [facility] eGFRcr 41.6 mL/min/1.7 3m*2 04/01/2025 4:24 AM EDT [facility] Comment:Reported eGFRcr in m L/min/1.73m2 is based the CKD-EPI 2020 equation that does not use a race coefficient. Blood Venous blood specimen / Unknown Venipuncture / Unknown 04/01/2025 2:12 AM EDT 04/01/2025 3:21 AM EDT Ирина Lopez MD LAB BLOOD ORDERABLES Final R esult Performing Organization Address City/[facility]/ZIP Co de Phone Number [facility] [address] [place] [address] * Magnesium, Plasma (04/01/2025 2:12 AM EDT) Magnesium, Plasma 2.4 1.9 - 2.4 mg/dL 04/01/2025 4:24 AM EDT [facility] Blood Venous blood specimen / Unknown Venipuncture / Unknown 04/01/2025 2:12 AM EDT 04/01/2025 3:21 AM EDT us Ирина Lopez MD LAB BLOOD ORDERABLES Final R esult Performing Organization Address City/[facility]/ZIP Co de Phone Number [facility] [address] [place] [address] * (ABNORMAL) CBC W/O Differential (04/01/2025 2:12 AM EDT) WBC Count 6.25 3.70 - 10.30 10*3/uL LAB HEMATOLOGY METHOD 04/01/2025 3:29 AM EDT [facility] RBC Count 2.59(L) 4.60 - 6.10 10*6/uL LAB HEMATOLOGY METHOD 04/01/2025 3:29 AM EDT [facility] HGB 7.6(L) 13.7 - 17.5 g/dL LAB HEMATOLOGY METHOD 04/01/2025 3:29 AM EDT [facility] HCT 22.9(L) 40.0 - 51.0 % LAB HEMATOLOGY METHOD 04/01/2025 3:29 AM EDT [facility] Platelet Count 163 155 - 369 10*3/uL LAB HEMATOLOGY METHOD 04/01/2025 3:29 AM EDT [facility] MCV 88 79 - 98 fL LAB HEMATOLOGY METHOD 04/01/2025 3:29 AM EDT [facility] MCH 29.3 26.0 - 32.0 pg LAB HEMATOLOGY METHOD 04/01/2025 3:29 AM EDT [facility] MCHC 33.2 30.7 - 35.5 g/dL LAB HEMATOLOGY METHOD 04/01/2025 3:29 AM EDT [facility] RDW 14.1 11.5 - 14.5 % LAB HEMATOLOGY METHOD 04/01/2025 3:29 AM EDT [facility] MPV 10.0 8.8 - 12.5 fL LAB HEMATOLOGY METHOD 04/01/2025 3:29 AM EDT [facility] nRBC 0.0 <=0.0 per 100 WBCs LAB HEMATOLOGY METHOD 04/01/2025 3:29 AM EDT [facility] Blood Venous blood specimen / Unknown Venipuncture / Unknown 04/01/2025 2:12 AM EDT 04/01/2025 3:21 AM EDT us Ирина Lopez MD LAB BLOOD ORDERABLES Final R esult [facility] [address] [place] [address] * (ABNORMAL) POCT glucose meter (03/31/2025 8:19 PM EDT) [facility] POCT Glucose 237(H) 74 - 99 mg/dL [...] Comment 03/31/2025 8:21 PM EDT [facility] Food Service Representative ID Jil Ruiz 8:21 PM EDT [facility] Device ID [id number] 03/31/2025 8:21 PM EDT [facility] Specimen Type POC Capillary 03/31/2025 8:21 PM EDT [facility] Blood Capillary blood specimen / Unknown 03/31/2025 8:19 PM EDT 03/31/2025 8:21 PM EDT Ирина Lopez MD LAB POINT OF CARE TE ST DOCKED DEVICE UNSOLICITED RESULTS Final Result [facility] [address] [place] [address] * (ABNORMAL) POCT glucose meter (03/31/2025 5:24 PM EDT) [facility] POCT Glucose 194(H) 74 - 99 mg/dL [...] 03/31/2025 5:26 PM EDT [facility] Food Service Representative ID Kenn Cabrera 03/31/2025 5:26 PM EDT [facility] Device ID [id number] 03/31/2025 5:26 PM EDT [facility] Specimen Type POC Capillary 03/31/2025 5:26 PM EDT [facility] Blood Capillary blood specimen / Unknown 03/31/2025 5:24 PM EDT 03/31/2025 5:26 PM EDT us Ирина Lopez MD LAB POINT OF CARE TE ST DOCKED DEVICE UNSOLICITED RESULTS Final Result Performing Organization Address City/State/[facility] Co de Phone Number [facility] [address] [place] [address] * Transfuse RBC (03/31/2025 3:56 PM EDT) [...] on 03/31/2025 1:30 PM us Scarlet Gamboa 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 XR PROCEDURES Final Resul [...] for testing. Comment 03/31/2025 12:34 PM EDT [facility] Food Service Representative ID Kenn Cabrera 03/31/2025 12:34 PM EDT [facility] Device ID [id number] 03/31/2025 12:34 PM EDT [facility] Specimen Type POC Capillary 03/31/2025 12:34 PM EDT [facility] Blood Capillary blood specimen / Unknown 03/31/2025 12:31 PM EDT 03/31/2025 12:34 PM EDT us Ирина Lopez MD LAB POINT OF CARE TE ST DOCKED DEVICE UNSOLICITED RESULTS Final Result [facility] [address] [place] [id number] * (ABNORMAL) POCT glucose meter (03/31/2025 9:08 [...] Comment 03/31/2025 9:09 AM EDT [facility] Food Service Representative ID Kenn Cabrera 03/31/2025 9:09 AM EDT [facility] Device ID [id number] 03/31/2025 9:09 AM EDT [facility] Specimen Type POC Capillary 03/31/2025 9:09 AM EDT [facility] Blood Capillary blood specimen / Unknown 03/31/2025 9:08 AM EDT 03/31/2025 9:09 AM EDT us Ирина Lopez MD LAB POINT OF CARE TE ST DOCKED DEVICE UNSOLICITED RESULTS Final Result Performing Organization Address City/[facility] Co de Phone Number [facility] [address] [place] [address] * Prepare Leukocyte Reduced RBC: 1 Units (03/31/2025 9:02 AM EDT) [facility] Signature Product Code [id number] CH BLOO D BANK Dispense Status Transfused BLOOD BANK Blood Expiration Date [id number] BLOOD BANK Unit Number [id number] CH B LOOD BANK Product Blood Type 6200 BLOOD BANK Blood Type A+ BLOOD BANK Crossmatch Compatible BLOOD BANK Other us Scarlet Gamboa APRN BLOOD BANK PRODUCT ORDERABLES Final Result Performing Organization Address [facility] Co de Phone Number BLOOD BANK [address] [place] [address], * XR Chest 1 View (03/31/2025 6:04 [...] - 99 mg/dL 03/31/2025 3:13 AM EDT [facility] BUN, Plasma 21 8 - 23 mg/dL 03/31/2025 3:13 AM EDT [facility] Creatinine, Plasma 1.59(H) 0.70 - 1.20 mg/dL 03/31/2025 3:13 AM EDT [facility] BUN/Creatinine Ratio 03/31/2025 3:13 AM EDT [facility] Sodium, Plasma 133(L) 136 - 145 mmol/L 03/31/2025 3:13 AM EDT [facility] Potassium, Plasma 3.6 3.6 - 4.9 mmol/L 03/31/2025 3:13 AM EDT [facility] Chloride, Plasma 102 97 - 107 mmol/L 03/31/2025 3:13 AM EDT [facility] CO2, Plasma 19(L) 22 - 29 mmol/L 03/31/2025 3:13 AM EDT [facility] Anion Gap 12 6 - 16 mmol/L 03/31/2025 3:13 AM EDT [facility] Total Calcium, Plasma 7.0(L) 8.9 - 10.2 mg/dL 03/31/2025 3:13 AM EDT [facility] Phosphorus, Plasma 3.5 2.5 - 4.5 mg/dL 03/31/2025 3:13 AM EDT [facility] Albumin, Plasma 2.9(L) 3.5 - 5.2 g/dL 03/31/2025 3:13 AM EDT [facility] eGFRcr 44.2 mL/min/1.7 3m*2 03/31/2025 3:13 AM EDT [facility] Comment:Reported eGFRcr in m L/min/1.73m2 is based the CKD-EPI 2020 equation that does not use a race coefficient. Blood Venous blood specimen / Unknown Venipuncture / Unknown 03/31/2025 2:22 AM EDT 03/31/2025 2:41 AM EDT us Ирина Lopez MD LAB BLOOD ORDERABLES Final R esult Performing Organization Address City/[facility]/ZIP Co de Phone Number [facility] [address] [place] [address] * (ABNORMAL) Magnesium, Plasma (03/31/2025 2:22 AM EDT) Magnesium, Plasma 3.1(H) 1.9 - 2.4 mg/dL 03/31/2025 3:13 AM EDT [facility] Blood Venous blood specimen / Unknown Venipuncture / Unknown 03/31/2025 2:22 AM EDT 03/31/2025 2:41 AM EDT Ирина Lopez MD LAB BLOOD ORDERABLES Final R esult [facility] [address] [place] [address] * (ABNORMAL) CBC W/O Differential (03/31/2025 2:22 AM EDT) WBC Count 7.84 3.70 - 10.30 10*3/uL LAB HEMATOLOGY METHOD 03/31/2025 2:51 AM EDT [facility] RBC Count 2.65(L) 4.60 - 6.10 10*6/uL LAB HEMATOLOGY METHOD 03/31/2025 2:51 AM EDT [facility] HGB 8.0(L) 13.7 - 17.5 g/dL LAB HEMATOLOGY METHOD 03/31/2025 2:51 AM EDT [facility] HCT 24.3(L) 40.0 - 51.0 % LAB HEMATOLOGY METHOD 03/31/2025 2:51 AM EDT [facility] Platelet Count 155 155 - 369 10*3/uL LAB HEMATOLOGY METHOD 03/31/2025 2:51 AM EDT [facility] MCV 92 79 - 98 fL LAB HEMATOLOGY METHOD 03/31/2025 2:51 AM EDT [facility] MCH 30.2 26.0 - 32.0 pg LAB HEMATOLOGY METHOD 03/31/2025 2:51 AM EDT [facility] MCHC 32.9 30.7 - 35.5 g/dL LAB HEMATOLOGY METHOD 03/31/2025 2:51 AM EDT [facility] RDW 13.2 11.5 - 14.5 % LAB HEMATOLOGY METHOD 03/31/2025 2:51 AM EDT [facility] MPV 9.6 8.8 - 12.5 fL LAB HEMATOLOGY METHOD 03/31/2025 2:51 AM EDT [facility] nRBC 0.0 <=0.0 per 100 WBCs LAB HEMATOLOGY METHOD 03/31/2025 2:51 AM EDT [facility] Blood Venous blood specimen / Unknown Venipuncture / Unknown 03/31/2025 2:22 AM EDT 03/31/2025 2:41 AM EDT us Ирина Lopez MD LAB BLOOD ORDERABLES Final R esult [facility] [address] [place] [address] * (ABNORMAL) POCT glucose meter (03/30/2025 8:28 [...] Comment 03/30/2025 8:30 PM EDT [facility] Food Service Representative ID Danuta Laughlin 03/30/2025 8:30 PM EDT [facility] Device ID [id number] 03/30/2025 8:30 PM EDT [facility] Specimen Type POC Capillary 03/30/2025 8:30 PM EDT [facility] Blood Capillary blood specimen / Unknown 03/30/2025 8:28 PM EDT 03/30/2025 8:30 PM EDT Ирина Lopez MD LAB POINT OF CARE TE ST DOCKED DEVICE UNSOLICITED RESULTS Final Result [facility] [address] [place] [address] * (ABNORMAL) POCT glucose meter (03/30/2025 5:20 PM EDT) [facility] POCT Glucose 148(H) 74 - 99 mg/dL [...] 03/30/2025 5:21 PM EDT [facility] Food Service Representative ID Halima Ervin 03/30/20 5:21 PM EDT [facility] LAB Device ID [id number] 03/30/2025 5:21 PM EDT [facility] Specimen Type POC Capillary 03/30/2025 5:21 PM EDT [facility] Blood Capillary blood specimen / Unknown 03/30/2025 5:20 PM EDT 03/30/2025 5:21 PM EDT us Ирина Lopez MD LAB POINT OF CARE TE ST DOCKED DEVICE UNSOLICITED RESULTS Final Result [facility] [address] [place] [id number] * XR Chest 1 View (03/30/2025 4:46 [...] on 03/30/2025 5:01 PM us Scarlet Gamboa 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 XR PROCEDURES Final Resul [...] Comment 03/30/2025 12:49 PM EDT [facility] Food Service Representative ID Cata Gibbs 12:49 PM EDT [facility] LAB Device ID [id number] 03/30/2025 12:49 PM EDT [facility] Specimen Type POC Venous 03/30/2025 12:49 PM EDT [facility] Blood Venous blood specimen / Unknown 03/30/2025 12:48 PM EDT 03/30/2025 12:49 PM EDT us Ирина Lopez MD LAB POINT OF CARE TE ST DOCKED DEVICE UNSOLICITED RESULTS Final Result Performing Organization Address City/[facility]/ZIP Co de Phone Number [facility] [address] [place] [address] * (ABNORMAL) Magnesium, Plasma (03/30/2025 10:57 AM EDT) Magnesium, Plasma 3.1(H) 1.9 - 2.4 mg/dL 03/30/2025 11:49 AM EDT [facility] Blood Venous blood specimen / Unknown Venipuncture / Unknown 03/30/2025 10:57 AM EDT 03/30/2025 11:16 AM EDT us Scarlet Gamboa APRN LAB BLOOD ORDERABLES Final Re sult [facility] [address] [place] [address] * (ABNORMAL) Renal function panel (03/30/2025 10:57 AM EDT) Glucose, Plasma 236(H) 74 - 99 mg/dL 03/30/2025 11:49 AM EDT [facility] BUN, Plasma 20 8 - 23 mg/dL 03/30/2025 11:49 AM EDT [facility] Creatinine, Plasma 1.64(H) 0.70 - 1.20 mg/dL 03/30/2025 11:49 AM EDT [facility] BUN/Creatinine Ratio 12 03/30/2025 11:49 AM EDT [facility] Sodium, Plasma 132(L) 136 - 145 mmol/L 03/30/2025 11:49 AM EDT [facility] Potassium, Plasma 4.6 3.6 - 4.9 mmol/L 03/30/2025 11:49 AM EDT [facility] Chloride, Plasma 100 97 - 107 mmol/L 03/30/2025 11:49 AM EDT [facility] CO2, Plasma 21(L) 22 - 29 mmol/L 03/30/2025 11:49 AM EDT [facility] Anion Gap 11 6 - 16 mmol/L 03/30/2025 11:49 AM EDT [facility] Total Calcium, Plasma 7.4(L) 8.9 - 10.2 mg/dL 03/30/2025 11:49 AM EDT [facility] Phosphorus, Plasma 2.6 2.5 - 4.5 mg/dL 03/30/2025 11:49 AM EDT [facility] Albumin, Plasma 3.0(L) 3.5 - 5.2 g/dL 03/30/2025 11:49 AM EDT [facility] eGFRcr 42.5 mL/min/1.7 3m*2 03/30/2025 11:49 AM EDT [facility] Comment:Reported eGFRcr in m L/min/1.73m2 is based the CKD-EPI 2020 equation that does not use a race coefficient. Blood Venous blood specimen / Unknown Venipuncture / Unknown 03/30/2025 10:57 AM EDT 03/30/2025 11:16 AM EDT us Ирина Lopez MD LAB BLOOD ORDERABLES Final R esult [facility] [address] [place] [address] * (ABNORMAL) POCT glucose meter (03/30/2025 10:56 AM EDT) [facility] POCT Glucose 252(H) 74 - 99 mg/dL [...] 03/30/2025 11:00 AM EDT [facility] Food Service Representative ID Cata Gibbs 11:00 AM EDT [facility] Device ID [id number] 03/30/2025 11:00 AM EDT [facility] Specimen Type POC Venous 03/30/2025 11:00 AM EDT [facility] Blood Venous blood specimen / Unknown 03/30/2025 10:56 AM EDT 03/30/2025 11:00 AM EDT us Ирина Lopez MD LAB POINT OF CARE TE ST DOCKED DEVICE UNSOLICITED RESULTS Final Result Performing Organization Address City/State/[facility] Co de Phone Number [facility] [address] [place] [address] * (ABNORMAL) POCT glucose meter (03/30/2025 9:38 AM EDT) [facility] POCT Glucose 271(H) 74 - 99 mg/dL [...] 03/30/2025 9:39 AM EDT [facility] Food Service Representative ID Cata Gibbs 9:39 AM EDT [facility]ALTH[facility] LAB Device ID [id number] 03/30/2025 9:39 AM EDT [facility] Specimen Type POC Venous 03/30/2025 9:39 AM EDT [facility] Blood Venous blood specimen / Unknown 03/30/2025 9:38 AM EDT 03/30/2025 9:39 AM EDT Ирина Lopez MD LAB POINT OF CARE TE ST DOCKED DEVICE UNSOLICITED RESULTS Final Result Performing Organization Address City/[facility] Co de Phone Number [facility] [address] [place] [address] * ECG Adult (03/30/2025 8:37 AM EDT) EKG DIAGNOSIS CLASS Abnormal MUSE ECG Ventricular Rate 81 BPM MUSE ECG Atrial Rate 81 BPM MUSE ECG OK Interval 170 ms MUSE ECG QRSD Interval 104 ms MUSE ECG QT Interval 416 ms MUSE ECG QTC Interval 483 ms MUSE ECG P [place] 39 degrees MUSE ECG R [place] -51 degrees MUSE ECG T Wave [place] -15 degrees MUSE ECG Diagnosis Poor data [...] ECG ORDERABLES Final Result Performing Organization Address [facility] Co de Phone Number MUSE ECG * (ABNORMAL) POCT glucose meter (03/30/2025 8:10 AM EDT) Pathologist [facility] POCT Glucose 164(H) 74 - 99 mg/dL 03/30/2025 8:11 AM EDT [facility] Comment:Accuracy of a glucos e result [...] Comment 03/30/2025 8:11 AM EDT [facility] Food Service Representative ID Cata Gibbs 8:11 AM EDT [facility] LAB Device ID [id number] 03/30/2025 8:11 AM EDT [facility] Specimen Type POC Venous 03/30/2025 8:11 AM EDT [facility] Blood Venous blood specimen / Unknown 03/30/2025 8:10 AM EDT 03/30/2025 8:11 AM EDT us Ирина Lopez MD LAB POINT OF CARE TE ST DOCKED DEVICE UNSOLICITED RESULTS Final Result [facility] [address] [place] [address] * (ABNORMAL) Renal function panel (03/30/2025 4:05 AM EDT) Glucose, Plasma 207(H) 74 - 99 mg/dL 03/30/2025 4:40 AM EDT [facility] BUN, Plasma 18 8 - 23 mg/dL 03/30/2025 4:40 AM EDT [facility] Creatinine, Plasma 1.41(H) 0.70 - 1.20 mg/dL 03/30/2025 4:40 AM EDT [facility] BUN/Creatinine Ratio 13 03/30/2025 4:40 AM EDT [facility] Sodium, Plasma 134(L) 136 - 145 mmol/L 03/30/2025 4:40 AM EDT [facility] Potassium, Plasma 5.8(H) 3.6 - 4.9 mmol/L 03/30/2025 4:40 AM EDT [facility] Chloride, Plasma 101 97 - 107 mmol/L 03/30/2025 4:40 AM EDT [facility] CO2, Plasma 20(L) 22 - 29 mmol/L 03/30/2025 4:40 AM EDT [facility] Anion Gap 13 6 - 16 mmol/L 03/30/2025 4:40 AM EDT [facility] Total Calcium, Plasma 7.7(L) 8.9 - 10.2 mg/dL 03/30/2025 4:40 AM EDT [facility] Phosphorus, Plasma 3.0 2.5 - 4.5 mg/dL 03/30/2025 4:40 AM EDT [facility] Albumin, Plasma 3.2(L) 3.5 - 5.2 g/dL 03/30/2025 4:40 AM EDT [facility] eGFRcr 51.0 mL/min/1.7 3m*2 03/30/2025 4:40 AM EDT [facility] Comment:Reported eGFRcr in m L/min/1.73m2 is based the CKD-EPI 2020 equation that does not use a race coefficient. Blood Arterial blood specimen / Unknown Arterial Puncture / Unknown 03/30/2025 4:05 AM EDT 03/30/2025 4:11 AM EDT Ирина Lopez MD LAB BLOOD ORDERABLES Final R esult Performing Organization Address City/[facility]/ZIP Co de Phone Number [facility] [address] [place] [address] * (ABNORMAL) Magnesium (03/30/2025 4:05 AM EDT) Magnesium, Plasma 1.4(L) 1.9 - 2.4 mg/dL 03/30/2025 4:40 AM EDT [facility] Blood Arterial blood specimen / Unknown Arterial Puncture / Unknown 03/30/2025 4:05 AM EDT 03/30/2025 4:11 AM EDT Ирина Lopez MD LAB BLOOD ORDERABLES Final R esult [facility] [address] [place] [address] * (ABNORMAL) CBC W/O Differential (03/30/2025 4:05 AM EDT) WBC Count 9.64 3.70 - 10.30 10*3/uL LAB HEMATOLOGY METHOD 03/30/2025 4:19 AM EDT [facility] RBC Count 2.91(L) 4.60 - 6.10 10*6/uL LAB HEMATOLOGY METHOD 03/30/2025 4:19 AM EDT [facility] HGB 8.8(L) 13.7 - 17.5 g/dL LAB HEMATOLOGY METHOD 03/30/2025 4:19 AM EDT [facility] HCT 25.8(L) 40.0 - 51.0 % LAB HEMATOLOGY METHOD 03/30/2025 4:19 AM EDT [facility] Platelet Count 190 155 - 369 10*3/uL LAB HEMATOLOGY METHOD 03/30/2025 4:19 AM EDT [facility] MCV 89 79 - 98 fL LAB HEMATOLOGY METHOD 03/30/2025 4:19 AM EDT [facility] MCH 30.2 26.0 - 32.0 pg LAB HEMATOLOGY METHOD 03/30/2025 4:19 AM EDT [facility] MCHC 34.1 30.7 - 35.5 g/dL LAB HEMATOLOGY METHOD 03/30/2025 4:19 AM EDT [facility] RDW 12.6 11.5 - 14.5 % LAB HEMATOLOGY METHOD 03/30/2025 4:19 AM EDT [facility] MPV 9.6 8.8 - 12.5 fL LAB HEMATOLOGY METHOD 03/30/2025 4:19 AM EDT [facility] nRBC 0.0 <=0.0 per 100 WBCs LAB HEMATOLOGY METHOD 03/30/2025 4:19 AM EDT [facility] Blood Arterial blood specimen / Unknown Arterial Puncture / Unknown 03/30/2025 4:05 AM EDT 03/30/2025 4:11 AM EDT us Ирина Lopez MD LAB BLOOD ORDERABLES Final R esult [facility] [address] [place] [address] * XR Chest 1 View (03/30/2025 1:35 [...] - 1.20 mg/dL 03/29/2025 8:39 PM EDT [facility] eGFRcr 70.2 mL/min/1.7 3m*2 03/29/2025 8:39 PM EDT [facility] Comment:Reported eGFRcr in m L/min/1.73m2 is based the CKD-EPI 2020 equation that does not use a race coefficient. Blood Arterial blood specimen / Unknown Arterial Puncture / Unknown 03/29/2025 7:58 PM EDT 03/29/2025 8:05 PM EDT Ирина Lopez MD LAB BLOOD ORDERABLES Final R esult [facility] [address] [place] [address] * (ABNORMAL) Renal Function Panel, Plasma (03/29/2025 7:58 PM EDT) Glucose, Plasma 183(H) 74 - 99 mg/dL 03/29/2025 8:39 PM EDT [facility] BUN, Plasma 13 8 - 23 mg/dL 03/29/2025 8:39 PM EDT [facility] Creatinine, Plasma 1.08 0.70 - 1.20 mg/dL 03/29/2025 8:39 PM EDT [facility] BUN/Creatinine Ratio 12 03/29/2025 8:39 PM EDT [facility] Sodium, Plasma 136 136 - 145 mmol/L 03/29/2025 8:39 PM EDT [facility] Potassium, Plasma 4.4 3.6 - 4.9 mmol/L 03/29/2025 8:39 PM EDT [facility] Chloride, Plasma 104 97 - 107 mmol/L 03/29/2025 8:39 PM EDT [facility] CO2, Plasma 21(L) 22 - 29 mmol/L 03/29/2025 8:39 PM EDT [facility] Anion Gap 11 6 - 16 mmol/L 03/29/2025 8:39 PM EDT [facility] Total Calcium, Plasma 7.9(L) 8.9 - 10.2 mg/dL 03/29/2025 8:39 PM EDT [facility] Phosphorus, Plasma 2.9 2.5 - 4.5 mg/dL 03/29/2025 8:39 PM EDT [facility] Albumin, Plasma 3.2(L) 3.5 - 5.2 g/dL 03/29/2025 8:39 PM EDT [facility] eGFRcr 70.2 mL/min/1.7 3m*2 03/29/2025 8:39 PM EDT [facility] Comment:Reported eGFRcr in m L/min/1.73m2 is based the CKD-EPI 2020 equation that does not use a race coefficient. Blood Arterial blood specimen / Unknown Arterial Puncture / Unknown 03/29/2025 7:58 PM EDT 03/29/2025 8:05 PM EDT us Ирина Lopez MD LAB BLOOD ORDERABLES Final R esult [facility] [address] [place] [address] * (ABNORMAL) Magnesium, Plasma (03/29/2025 7:58 PM EDT) Magnesium, Plasma 1.3(L) 1.9 - 2.4 mg/dL 03/29/2025 8:39 PM EDT [facility] Blood Arterial blood specimen / Unknown Arterial Puncture / Unknown 03/29/2025 7:58 PM EDT 03/29/2025 8:05 PM EDT us Ирина Lopez MD LAB BLOOD ORDERABLES Final R esult Performing Organization Address City/[facility]/ZIP Co de Phone Number [facility] [address] [place] [address] * Fibrinogen (03/29/2025 7:58 PM EDT) Fibrinogen, Quantitative (Clottable) 294 208 - 459 mg/dL LAB COAGULATION METHOD 03/29/2025 8:38 PM EDT [facility] Blood Arterial blood specimen / Unknown Arterial Puncture / Unknown 03/29/2025 7:58 PM EDT 03/29/2025 8:05 PM EDT us Kiana Gusman CRNA LAB BLOOD ORDERABLES Final R esult Performing Organization Address City/[facility]/[place] [address] * Protime-INR (03/29/2025 7:58 PM EDT) Pathologist [facility] Prothrombin Time 13.8 12.0 - 14.3 sec LAB COAGULATION METHOD 03/29/2025 8:38 PM EDT [facility] INR 1.0 0.9 - 1.1 LAB COAGULATION METHOD 03/29/2025 8:38 PM EDT [facility] Blood Arterial blood specimen / Unknown Arterial Puncture / Unknown 03/29/2025 7:58 PM EDT 03/29/2025 8:05 PM EDT Narrative [facility] - 03/29/2025 8:38 PM EDT OPTIMAL INR RANGES FOR PATIENT ON ORAL ANTICOAGULANT THERAPY Prevention of venous thromboembolism INR 2.0 to 3.0 In patients with heart disease: Atrial fibrillation INR 2.0 to 3.0 Valvular heart disease INR 2.0 to 3.0 Tissue heart valves INR 2.0 to 3.0 Mechanical prosthetic valves INR 2.5 to 3.5 Prevention of recurrent IA INR 2.5 to 3.5 us Kiana Gusman CRNA LAB BLOOD ORDERABLES Final R esult [facility] [address] [place] [address] * (ABNORMAL) CBC and differential (03/29/2025 7:58 PM EDT) [facility] WBC Count 8.18 3.70 - 10.30 10*3/uL LAB HEMATOLOGY METHOD 03/29/2025 8:29 PM EDT [facility] RBC Count 3.11(L) 4.60 - 6.10 10*6/uL LAB HEMATOLOGY METHOD 03/29/2025 8:29 PM EDT [facility] HGB 9.2(L) 13.7 - 17.5 g/dL LAB HEMATOLOGY METHOD 03/29/2025 8:29 PM EDT [facility] HCT 27.7(L) 40.0 - 51.0 % LAB HEMATOLOGY METHOD 03/29/2025 8:29 PM EDT [facility] Platelet Count 174 155 - 369 10*3/uL LAB HEMATOLOGY METHOD 03/29/2025 8:29 PM EDT [facility] MCV 89 79 - 98 fL LAB HEMATOLOGY METHOD 03/29/2025 8:29 PM EDT [facility] MCH 29.6 26.0 - 32.0 pg LAB HEMATOLOGY METHOD 03/29/2025 8:29 PM EDT [facility] MCHC 33.2 30.7 - 35.5 g/dL LAB HEMATOLOGY METHOD 03/29/2025 8:29 PM EDT [facility] RDW 12.6 11.5 - 14.5 % LAB HEMATOLOGY METHOD 03/29/2025 8:29 PM EDT [facility] MPV 9.3 8.8 - 12.5 fL LAB HEMATOLOGY METHOD 03/29/2025 8:29 PM EDT [facility] nRBC 0.0 <=0.0 per 100 WBCs LAB HEMATOLOGY METHOD 03/29/2025 8:29 PM EDT [facility] Differential Type Automated LAB HEMATOLOGY METHOD 03/29/2025 8:29 PM EDT [facility] Neutrophils % 86 % LAB HEMATOLOGY METHOD 03/29/2025 8:29 PM EDT [facility] Lymphocytes % 9 % LAB HEMATOLOGY METHOD 03/29/2025 8:29 PM EDT [facility] Monocytes % 5 % LAB HEMATOLOGY METHOD 03/29/2025 8:29 PM EDT [facility] Eosinophils % 0 % LAB HEMATOLOGY METHOD 03/29/2025 8:29 PM EDT [facility] Basophils % 0 % LAB HEMATOLOGY METHOD 03/29/2025 8:29 PM EDT [facility] Immature Granulocytes % 0 % LAB HEMATOLOGY METHOD 03/29/2025 8:29 PM EDT [facility] Neutrophils Absolute 7.00(H) 1.60 - 6.10 10*3/uL LAB HEMATOLOGY METHOD 03/29/2025 8:29 PM EDT [facility] Lymphocytes Absolute 0.71(L) 1.20 - 3.90 10*3/uL LAB HEMATOLOGY METHOD 03/29/2025 8:29 PM EDT [facility] Monocytes Absolute 0.40 0.30 - 0.90 10*3/uL LAB HEMATOLOGY METHOD 03/29/2025 8:29 PM EDT [facility] Eosinophils Absolute 0.02 0.00 - 0.50 10*3/uL LAB HEMATOLOGY METHOD 03/29/2025 8:29 PM EDT [facility] Basophils Absolute 0.02 0.00 - 0.10 10*3/uL LAB HEMATOLOGY METHOD 03/29/2025 8:29 PM EDT [facility] Immature Granulocytes Absolute 0.03 0.00 - 0.06 10*3/uL LAB HEMATOLOGY METHOD 03/29/2025 8:29 PM EDT [facility] Blood Arterial blood specimen / Unknown Arterial Puncture / Unknown 03/29/2025 7:58 PM EDT 03/29/2025 8:04 PM EDT [facility] - 03/29/2025 8:29 PM EDT Therapeutic decision making should be based on absolute values, rather than percentages. us Kiana L Gusman [facility] LAB BLOOD ORDERABLES Final R esult Performing Organization Address City/[facility] Co de Phone Number [facility] [address] [place] [address] * (ABNORMAL) POCT glucose meter (03/29/2025 7:43 [...] for testing. Comment 03/29/2025 7:45 PM EDT [facility] Food Service Representative ID Radha Slater 03/29/20 25 7:45 PM EDT [facility] Device ID [id number] 03/29/2025 7:45 PM EDT [facility] Specimen Type POC Capillary 03/29/2025 7:45 PM EDT [facility] Blood Capillary blood specimen / Unknown 03/29/2025 7:43 PM EDT 03/29/2025 7:45 PM EDT Ирина Lopez MD LAB POINT OF CARE TE ST DOCKED DEVICE UNSOLICITED RESULTS Final Result Performing Organization Address [facility] Co de Phone Number [facility] [address] [place] [address] * Surgical Pathology Exam (03/29/2025 5:10 PM EDT) Case Report Surgical Pathology Case: [id number] Authorizing Provider: Ирина Lopez MD Collected: 03/29/2025 1716 Ordering Location: [facility] A OPERATING ROOM Received: 03/30/2025 0759 Pathologist: Cindy Miller MD Intraop: Elizabeth Gibbs [...] (specify site), lipoma 5 2:45 PM EDT [facility] Final Diagnosis A. LUNG, [...] EXCISION: - LIPOMA. 5 2:45 PM EDT [facility] at 1445 EDT Synoptic Checklist LUNG [...] pN Category: pN0 5 2:45 PM EDT [facility] Clinical Information Non-small cell cancer of left lung 5 2:45 PM EDT [facility] Intraoperative Consultation A. BRONCHIAL MARGIN FSA: No tumor seen. Todd Gibbs MD. 03/29/2025 @ 1745. 5 2:45 PM EDT [facility] Special and Immunohistochemical Stains Special Stain: [id number] Elastic Trichrome: Demonstrates visceral pleural invasion F8-2 Elastic Trichrome: Demonstrates visceral pleural invasion All controls show appropriate reactivity. All immunohistochemis try, in situ hybridization, and histochemical tests were developed by and are performed at the [facility], [address] [place] [address]. All tests reported here, except those addressing [...] on decalcified specimens. 5 2:45 PM EDT [facility] Gross Description A. BRONCHIAL [...] 0.3-0.6 cm in greatest dimension are identified. Cob Sawyer sections are submitted as follows: F1: Bronchial margin F2: Vascular margins F3: Nearest stapled margin, en face F4: Grossly unremarkable parenchyma F5-F10: Mass, entirely submitted F11: Two intact lymph nodes Cold Time: 13h 43m SWATI Wong ([facility]) G. LIPOMA The specimen is received fresh and placed in formalin, labeled l ipoma , and consists of a 5.8 x 5.6 x 2.1 cm unoriented portion of leggett-yellow lobulated fibroadipose tissue. The external surface is inked blue. Sectioning reveals a leggett-yellow lobulated cut surface. No areas of hemorrhage or necrosis are identified. Cob Sawyer sections are submitted in cassettes G1-G3. Cold Time: 13h 05m SWATI Wong ([facility]) 5 2:45 PM EDT [facility] Note: A resident was involved in the service. I attest I examined the relevant preparations for the specimens and confirmed the diagnosis or interpretation. 5 2:45 PM EDT [facility] Tissue Structure of lymph [...] MD LAB PATHOLOGY ORDERABLES Fin al Result [facility] [address] [place] [address] * (ABNORMAL) Blood gas panel, arterial (03/29/2025 4:05 PM EDT) pH, Arterial 7.38 7.31 - 7.42 LAB HEMATOLOGY METHOD 03/29/2025 4:13 PM EDT [facility] pCO2, Arterial 45 32 - 45 mmHg LAB HEMATOLOGY METHOD 03/29/2025 4:13 PM EDT [facility] pO2, Arterial 216 >70 mmHg LAB HEMATOLOGY METHOD 03/29/2025 4:13 PM EDT [facility] SO2, Measured, Arterial 100(H) 94 - 98 % LAB HEMATOLOGY METHOD 03/29/2025 4:13 PM EDT [facility] Base Excess, Arterial 1.2 -2.0 - 3.0 mmol/L LAB HEMATOLOGY METHOD 03/29/2025 4:13 PM EDT [facility] Bicarbonate, Calculated, Arterial 27(H) 22 - 26 mmol/L LAB HEMATOLOGY METHOD 03/29/2025 4:13 PM EDT [facility] Hematocrit, Whole Blood 31.6(L) 40.0 - 51.0 % LAB HEMATOLOGY METHOD 03/29/2025 4:13 PM EDT [facility] Sodium, Whole Blood 138 136 - 145 mmol/L LAB HEMATOLOGY METHOD 03/29/2025 4:13 PM EDT [facility] Potassium, Whole Blood 3.8 3.6 - 4.9 mmol/L LAB HEMATOLOGY METHOD 03/29/2025 4:13 PM EDT [facility] Chloride, Whole Blood 103 97 - 107 mmol/L LAB HEMATOLOGY METHOD 03/29/2025 4:13 PM EDT [facility] Glucose, Whole Blood 123(H) 74 - 99 mg/dL LAB HEMATOLOGY METHOD 03/29/2025 4:13 PM EDT [facility] Ionized Calcium, Whole Blood 4.4(L) 4.6 - 5.1 mg/dL LAB HEMATOLOGY METHOD 03/29/2025 4:13 PM EDT [facility] Lactate, Arterial, Whole Blood 0.8 0.5 - 1.6 mmol/L LAB HEMATOLOGY METHOD 03/29/2025 4:13 PM EDT [facility] Blood Arterial blood specimen / Unknown 03/29/2025 4:05 PM EDT 03/29/2025 4:11 PM EDT Comment:Pre-op diagnosis: Non-small cell cancer of left lung us Ирина Lopez MD LAB BLOOD ORDERABLES Final R esult [facility] [address] [place] [address] * APTT (03/29/2025 4:04 PM EDT) aPTT 28 25 - 35 sec LAB COAGULATION METHOD 03/29/2025 4:39 PM EDT [facility] Blood Arterial blood specimen / Unknown 03/29/2025 4:04 PM EDT 03/29/2025 4:18 PM EDT Comment:Pre-op diagnosis: Non-small cell cancer of left lung Ирина Lopez MD LAB BLOOD ORDERABLES Final R esult Performing Organization Address [facility] Co de Phone Number [facility] [address] [place] [address] * Prothrombin Time/INR (03/29/2025 4:04 PM EDT) Prothrombin Time 13.4 12.0 - 14.3 sec LAB COAGULATION METHOD 03/29/2025 4:39 PM EDT [facility] INR 1.0 0.9 - 1.1 LAB COAGULATION METHOD 03/29/2025 4:39 PM EDT [facility] Blood Arterial blood specimen / Unknown 03/29/2025 4:04 PM EDT 03/29/2025 4:18 PM EDT Comment:Pre-op diagnosis: Non-small cell cancer of left lung Narrative [facility] - 03/29/2025 4:39 PM EDT OPTIMAL INR RANGES FOR PATIENT ON ORAL ANTICOAGULANT THERAPY Prevention of venous thromboembolism INR 2.0 to 3.0 In patients with heart disease: Atrial fibrillation INR 2.0 to 3.0 Valvular heart disease INR 2.0 to 3.0 Tissue heart valves INR 2.0 to 3.0 Mechanical prosthetic valves INR 2.5 to 3.5 Prevention of recurrent IA INR 2.5 to 3.5 Ирина Lopez MD LAB BLOOD ORDERABLES Final R esult Performing Organization Address City/[facility] Co de Phone Number [facility] [address] [place] [address] * Fibrinogen, Quantitative (Clottable) (03/29/2025 4:04 PM EDT) Fibrinogen, Quantitative (Clottable) 336 208 - 459 mg/dL LAB COAGULATION METHOD 03/29/2025 4:39 PM EDT [facility] Blood Arterial blood specimen / Unknown 03/29/2025 4:04 PM EDT 03/29/2025 4:18 PM EDT Comment:Pre-op diagnosis: Non-small cell cancer of left lung us Ирина Lopez MD LAB BLOOD ORDERABLES Final R esult [facility] [address] [place] [address] * (ABNORMAL) CBC W/O Differential (03/29/2025 4:04 PM EDT) WBC Count 3.70 3.70 - 10.30 10*3/uL LAB HEMATOLOGY METHOD 03/29/2025 4:28 PM EDT [facility] RBC Count 3.52(L) 4.60 - 6.10 10*6/uL LAB HEMATOLOGY METHOD 03/29/2025 4:28 PM EDT [facility] HGB 10.5(L) 13.7 - 17.5 g/dL LAB HEMATOLOGY METHOD 03/29/2025 4:28 PM EDT [facility] HCT 31.1(L) 40.0 - 51.0 % LAB HEMATOLOGY METHOD 03/29/2025 4:28 PM EDT [facility] Platelet Count 184 155 - 369 10*3/uL LAB HEMATOLOGY METHOD 03/29/2025 4:28 PM EDT [facility] MCV 88 79 - 98 fL LAB HEMATOLOGY METHOD 03/29/2025 4:28 PM EDT [facility] MCH 29.8 26.0 - 32.0 pg LAB HEMATOLOGY METHOD 03/29/2025 4:28 PM EDT [facility] MCHC 33.8 30.7 - 35.5 g/dL LAB HEMATOLOGY METHOD 03/29/2025 4:28 PM EDT [facility] RDW 12.6 11.5 - 14.5 % LAB HEMATOLOGY METHOD 03/29/2025 4:28 PM EDT [facility] MPV 9.4 8.8 - 12.5 fL LAB HEMATOLOGY METHOD 03/29/2025 4:28 PM EDT [facility] nRBC 0.0 <=0.0 per 100 WBCs LAB HEMATOLOGY METHOD 03/29/2025 4:28 PM EDT [facility] Blood Arterial blood specimen / Unknown 03/29/2025 4:04 PM EDT 03/29/2025 4:20 PM EDT Comment:Pre-op diagnosis: Non-small cell cancer of left lung us Ирина Lopez MD LAB BLOOD ORDERABLES Final R esult [facility] [address] [place] [address] * (ABNORMAL) Blood gas panel, arterial (03/29/2025 2:29 PM EDT) pH, Arterial 7.39 7.31 - 7.42 LAB HEMATOLOGY METHOD 03/29/2025 2:35 PM EDT [facility] pCO2, Arterial 44 32 - 45 mmHg LAB HEMATOLOGY METHOD 03/29/2025 2:35 PM EDT [facility] pO2, Arterial 190 >70 mmHg LAB HEMATOLOGY METHOD 03/29/2025 2:35 PM EDT [facility] SO2, Measured, Arterial 100(H) 94 - 98 % LAB HEMATOLOGY METHOD 03/29/2025 2:35 PM EDT [facility] Base Excess, Arterial 1.5 -2.0 - 3.0 mmol/L LAB HEMATOLOGY METHOD 03/29/2025 2:35 PM EDT [facility] Bicarbonate, Calculated, Arterial 27(H) 22 - 26 mmol/L LAB HEMATOLOGY METHOD 03/29/2025 2:35 PM EDT [facility] Hematocrit, Whole Blood 32.4(L) 40.0 - 51.0 % LAB HEMATOLOGY METHOD 03/29/2025 2:35 PM EDT [facility] Sodium, Whole Blood 139 136 - 145 mmol/L LAB HEMATOLOGY METHOD 03/29/2025 2:35 PM EDT [facility] Potassium, Whole Blood 3.6 3.6 - 4.9 mmol/L LAB HEMATOLOGY METHOD 03/29/2025 2:35 PM EDT [facility] Chloride, Whole Blood 104 97 - 107 mmol/L LAB HEMATOLOGY METHOD 03/29/2025 2:35 PM EDT [facility] Glucose, Whole Blood 96 74 - 99 mg/dL LAB HEMATOLOGY METHOD 03/29/2025 2:35 PM EDT [facility] Ionized Calcium, Whole Blood 4.4(L) 4.6 - 5.1 mg/dL LAB HEMATOLOGY METHOD 03/29/2025 2:35 PM EDT [facility] Lactate, Arterial, Whole Blood 1.4 0.5 - 1.6 mmol/L LAB HEMATOLOGY METHOD 03/29/2025 2:35 PM EDT [facility] Blood Arterial blood specimen / Unknown 03/29/2025 2:29 PM EDT 03/29/2025 2:34 PM EDT Comment:Pre-op diagnosis: Non-small cell cancer of left lung Ирина Lopez MD LAB BLOOD ORDERABLES Final R esult Performing Organization Address City/[facility]/ZIP Co de Phone Number [facility] [address] [place] [address] * (ABNORMAL) POCT glucose meter (03/29/2025 12:48 [...] Comment 03/29/2025 12:50 PM EDT [facility] Food Service Representative ID Rosalie Cuevas 03/29/20 25 12:50 PM EDT [facility] Device ID [id number] 03/29/2025 12:50 PM EDT [facility] Specimen Type POC Venous 03/29/2025 12:50 PM EDT [facility] Blood Venous blood specimen / Unknown 03/29/2025 12:48 PM EDT 03/29/2025 12:50 PM EDT Ирина Lopez MD LAB POINT OF CARE TE ST DOCKED DEVICE UNSOLICITED RESULTS Final Result Performing Organization Address City/[facility]/ZIP Co de Phone Number [facility] [address] [place] [address] * (ABNORMAL) Blood gas, venous (03/29/2025 12:27 PM EDT) pH, Venous 7.36 7.32 - 7.43 LAB HEMATOLOGY METHOD 03/29/2025 12:51 PM EDT [facility] pCO2, Venous 49 40 - 55 mmHg LAB HEMATOLOGY METHOD 03/29/2025 12:51 PM EDT [facility] pO2, Venous 54(H) 25 - 40 mmHg LAB HEMATOLOGY METHOD 03/29/2025 12:51 PM EDT [facility] SO2, Measured, Venous 87(H) 65 - 80 % LAB HEMATOLOGY METHOD 03/29/2025 12:51 PM EDT [facility] Base Excess, Venous 1.7 -2.0 - 3.0 mmol/L LAB HEMATOLOGY METHOD 03/29/2025 12:51 PM EDT [facility] Bicarbonate, Calculated, Venous 28(H) 22 - 26 mmol/L LAB HEMATOLOGY METHOD 03/29/2025 12:51 PM EDT [facility] Hematocrit, Whole Blood 39.2(L) 40.0 - 51.0 % LAB HEMATOLOGY METHOD 03/29/2025 12:51 PM EDT [facility] Sodium, Whole Blood 140 136 - 145 mmol/L LAB HEMATOLOGY METHOD 03/29/2025 12:51 PM EDT [facility] Potassium, Whole Blood 4.0 3.6 - 4.9 mmol/L LAB HEMATOLOGY METHOD 03/29/2025 12:51 PM EDT [facility] Chloride, Whole Blood 103 97 - 107 mmol/L LAB HEMATOLOGY METHOD 03/29/2025 12:51 PM EDT [facility] Glucose, Whole Blood 97 74 - 99 mg/dL LAB HEMATOLOGY METHOD 03/29/2025 12:51 PM EDT [facility] Lactate, Venous, Whole Blood 1.6 0.5 - 2.2 mmol/L LAB HEMATOLOGY METHOD 03/29/2025 12:51 PM EDT [facility] Ionized Calcium, Whole Blood 4.5(L) 4.6 - 5.1 mg/dL LAB HEMATOLOGY METHOD 03/29/2025 12:51 PM EDT [facility] Blood Venous blood specimen / Unknown Venipuncture / Unknown 03/29/2025 12:27 PM EDT 03/29/2025 12:49 PM EDT Robert Santos MD LAB BLOOD ORDERABLES Final Resu lt [facility] [address] [place] [address] * Type and Screen (03/29/2025 12:27 PM [...] TEST ORDERABLES Final Result Performing Organization Address [facility] de Phone Number BLOOD BANK [address] [place] [address] documented in this encounter Visit Diagnoses Diagnosis [...] as of this encounter Care Teams Senior Web Developer Relationship Specialty Start Date End Date Casa Phillips MD [address] [place] [address] PCP - General 02/22/25 Forrest Nickerson, BING [address] [place] [address] 03/06/23 documented as of this encounter
--- OUTSIDE RECORDS SUMMARY | 2025-03-29 13:34 | XMS_ITS | Encounter Summary ---
Author Organization [facility] Address [address] [place] [address] Care Team Providers Care Quality Control Associate Name Role Phone Forrest Nickerson RECOVERY ENGINEER Unavailable [phone] Casa Phillips MD Primary Care Provider [phone] Reason for Visit * Auth/Cert (Routine) Specialty Diagnoses / Procedures Referred By Contac t Referred To Contact Diagnoses Non-small cell cancer of left lung (CMS/HCC) Non-small cell cancer of left lung Procedures [place] THORACOSCOPY SURG LOBECTOMY LEFT VATS LOBECTOMY Ирина Lopez MD [address] [facility] [address] [place] [address] Phone: tel: fax: [facility] OPERATING ROOM [address] [place] [address] Phone: tel: Referral ID Status Reason Start Date Expiration Date Visits Re quested Visits Authorized [id number] 1 1 Encounter Details Date Type Department Care Team (Late st Contact Info) Description 03/29/2025 1:34 PM EDT Anesthesia Event [facility] RO[facility] [address] [place] [address] Jimmy Kim MD [address] [place] [address] Laquita Brand MD [address] [place] [address] Anesthesia Record Procedure Summary Procedure Name Responsible [...] Location: Midaxillary; Size: 24 Fr; Drainage System: [place]/nonsuction water seal drainage 03/29/25 1803 by Juliana [...] any time in the past 12 m [facility], were you homeless or living in a [facility]p (including now)? No 03/31/2025 Utilities Answer Date [...] procedure well with no complications. Staffing Performed: SEM MANAGER * Anesthesia Procedure Notes - Robert Santos MD - 03/29/2025 2:17 PM EDT Associated Order(s): Airway Airway Date/Time: 03/29/2025 1:48 PM Reason: elective Airway not difficult General Information and Staff Patient location during procedure: OR SEM MANAGER: Kiana Gusman CRNA Performed: SEM MANAGER Patient Condition Indications for airway management: anesthesia [...] from the original note were not included. [facility] Cole Feliz Jr. is a 79 [...] with Ирина Lopez [place] [facility] [place] Past Medical History[7] Family [...] artery disease (patient denies), hyperlipidemia and past [place]. Does not have atrial fibrillation, CHF, dyspnea, [...] artery disease) Diabetes ([facility]) Hepatitis High blood pressure High [...] Pav CC Head, Neck & Respiratory [address] [facility], [address] [place] [address] Nikolai Naranjo MD [address] [place] [address] documented as of this encounter Procedures Procedure Name Priority Date/Time Associated Diagnosis Comments ANESTHESIA PERIPHERAL IV PLACEMENT Routine 03/29/2025 2:00 PM EDT ANESTHESIA ARTERIAL LINE PLACEMENT Routine 03/29/2025 1:57 PM EDT PB ANESTHESIA PLACEHOLDER Routine 03/29/2025 1:48 PM EDT [place] AN ELECTIVE ENDOTRACHEAL AIRWAY Routine 03/29/2025 1:48 [...] NON-TIMED PROCEDURE PLACEHOLDER (03/29/2025 1:57 PM EDT) Robetr Bloom MD - 03/29/2025 1:57 PM EDT [...] procedure well with no complications. Staffing Performed: SEM MANAGER Robert Santos MD ANESTHESIA ORDERABLES Edited Re sult - Final * [place] AN ELECTIVE ENDOTRACHEAL AIRWAY, PB ANESTHESIA PLACEHOLDER (03/29/2025 1:48 PM EDT) Narrative Robert Santos MD - 03/29/2025 1:48 PM EDT Robert Santos MD 03/29/2025 3:02 PM Airway Date/Time: 03/29/2025 1:48 PM Reason: elective Airway not difficult General Information and Staff Patient location during procedure: OR SEM MANAGER: Kiana Gusman SEM MANAGER Performed: SEM MANAGER Patient Condition Indications for airway management: anesthesia Final Airway Details Final airway type: endotracheal airway Successful airway: ETT and ETT - double lumen left Successful intubation technique: direct laryngoscopy Adjuncts used in placement: intubating stylet Endotracheal tube insertion site: oral ETT DL size (fr): 39 Cormack-Lehane Classification: grade IIa - partial view of glottis Placement verified by: chest auscultation, bronchoscopy and capnometry Robert Santos MD ANESTHESIA ORDERABLES Edited Re [...] on Sat03/29/25 at 1416, Until Sat03/29/25 at 193, Routine, Anesthesia Intraprocedure Given 03/29/2025 3:57 PM [...] at 1935, Routine, Anesthesia Intraprocedure Given 03/29/2025 3:23 PM [...] on Sat03/29/25 at 1857, Until Sat03/29/25 at 1935, Routine, Anesthesia Intraprocedure Given 03/29/2025 7:06 PM EDT 100 mg Given 03/29/2025 7:00 PM EDT 100 mg Given 03/29/2025 6:57 PM EDT 100 mg tranexamic acid (Cyklokapron) injection Intravenous, As needed, Starting on Sat03/29/25 at 1547, Until Sat03/29/25 at 1935, Routine, Anesthesia Intraprocedure Given 03/29/2025 3:47 PM EDT 1,000 mg documented in this encounter Additional Health Concerns Assessment Noted Time A fall risk assessment has been complete d for the patient 02/23/2025 8:48 AM EDT A Body Mass Index follow-up plan has been documented for the patient 04/04/2025 10:30 AM EDT documented as of this encounter Care Teams Quality Control Associate Relationship Specialty Start Date End Date Casa Phillips MD [address] [place] [id number] PCP - General 02/22/25 Forrest Nickerson APRN [address] [place] [id number] 03/06/23 documented as of this encounter
--- OUTSIDE RECORDS SUMMARY | 2025-04-06 10:40 | XMS_ITS | Encounter Summary ---
Author Organization [facility] Address [address] [place] [address] Care Team Providers Care Plasma Processor Name Role Phone Demetrio Nickersonann Theresa COLLECTOR OF PORT Unavailable [phone] Casa Phillips MD Primary Care Provider [phone] Reason for Referral * Consultation (Routine) - Authorized Specialty Diagnoses / Procedures Referred By Contac t Referred To Contact Medical Oncology Diagnoses Non-small cell cancer of left lung (CMS/HCC) Nikolai Naranjo MD [address] [address] Phone: tel: fax: Referral ID Status Reason Start Date Expiration Date Visits Requested Visits Authorized [id number] Authorized Specialty Services Required 04/06/2025 10/06/2026 [address] Dagoberto Rosales at [facility] Reason for Visit * Reason Comments Follow-up Encounter Details Date Type Department Care Team ([facility] st Contact Info) Description 04/06/2025 10:40 AM EDT Office Visit Pav CC Head, Neck & Respiratory [address] [place] [phone] Nikolai Naranjo MD [address] [facility] [address] [place] [address] Non-small cell cancer of left lung (CMS/HCC) [...] any time in the past 12 m [facility], were you homeless or living in a retirement (including now)? No 03/31/2025 Utilities Answer Date Recorded In the past 12 months has [employer], gas, oil, or water company threatened to [...] image 161 series 4 and 3. A Tmp-CQE-gawr subpleural 4 mm tiny perifissural nodule at [...] cane since 2023)- Pathology Fine needle aspiration: [id number] Order: [id number] Collected 01/28/2025 14:07 Final Diagnosis A. LUNG, [...] upper lobectomy on 03/29/2025. Surgical Pathology Exam: [id number] Order: [id number] Collected 03/29/2025 17:10 Status: Final result Dx: [...] Sister with lung cancer (heavy tobacco smoker rcgb5yt hand exposure). Social History[4] --tobacco smoker since age 13: cigars then switched to cigarettes 1PPD. Quit from 7416-9492, but later relapsed in 2015 to present (3-4 cigarettes x day). Re-contemplating phase, open to explore NRT options. --2nd hand tobacco smoking exposure from both parents during early to young adult age --occasional alcohol. No illicit drug use. [place] [facility] [place] [facility] [place] [id number]. Allergies: Cetirizine Medications: Current Medications[5] Review of [...] scanner: Siemens Biograph 40 mCT. PET/CT acquisition: Gsqfcr-yp-bfj-thighs. Standardized uptake value (SUV): Corrected for body weight only. CT: Low-dose, dse-qbungm-jwbv, without intravenous contrast. TOTAL DLP (Dose Length [...] 1.8 (image 161 series 4 and 3). Jdj-QKF-idxg subpleural 4 mm tiny perifissural nodule is [...] s/p PCI x3 (last in 2020 for uckk-iayi-ZHJ; on DAPT), probable COPD ISO longterm heavy tobacco use plus 2nd hand exposure [...] - RTC in 3 months -referral to [facility] oncologist Dr. Rosales # Imbalance with [...] TTOP enrollment at , likelyeligible. 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 Chronic conditions: HR-CAD s/p PCI on DAPT (last PCI in 2020)- asymptomatic. Prostatomegaly s/p prostate surgery x3 by local urology provider (last in 2023; [facility]). T2DM with recent weight loss (25 lbs [...] Pav CC Head, Neck & Respiratory [address] [facility], [address]nd [place] [address] Nikolai Naranjo MD [address] [facility] [address] [place] [address] Scheduled Referrals Name Type Priority Associated Diagnoses [...] documented as of this encounter Care Teams Plasma Processor Relationship Specialty Start Date End Date Casa Phillips MD [address] [place] [address] PCP - General 02/22/25 Forrest Nickerson APRN [address] [place] [address] 03/06/23 documented as of this encounter
--- OUTSIDE RECORDS SUMMARY | 2025-04-06 11:30 | XMS_ITS | Encounter Summary ---
Author Organization [facility] Address [address] [place] [address] Care Team Providers Care Grain Roaster Name Role Phone Demetrio trevinoann Cardenas SALES AND MARKETING VICE PRESIDENT Unavailable Casa Phillips MD Primary Care Provider [phone] Encounter Details Date Type Department Care Team (Late st Contact Info) Description 04/06/2025 11:30 AM EDT Office Visit Pav CC Head, Neck & Respiratory [address], [address] [place] [address] Ирина Lopez MD [address] [facility] [address] [place] [address] Non-small cell cancer of left [...] any time in the past 12 m [facility], were you homeless or living in a half-way (including now)? No 03/31/2025 Utilities Answer Date [...] from the original note were not included. [facility] Department of Surgery Section of Thoracic Surgery Outpatient Clinic Note Diagnosis: lung cancer Procedure: 03/29/2025 L thoracotomy HIEN Pathology: [id number] (2.6 cm with visceral pleural invasion) Interval [...] it starts draining again. Ирина Lopez MD road machinery inspector Thoracic Surgery documented in this encounter Plan of Treatment Upcoming Encounters Date Type Department Care Team (Late st Contact Info) Description 07/06/2025 10:40 AM EDT Office Visit Pav CC Head, Neck & Respiratory [address] [facility], 2nd [place] [address] Nikolai Naranjo MD 800 [facility] [address] [place] [address] documented as of this encounter Visit Diagnoses [...] documented as of this encounter Care Teams Grain Roaster Relationship Specialty Start Date End Date Casa Phillips MD [address] [place] [address] PCP - General 02/22/25 Forrest Nickerson APRN [address] [place] [address] 03/06/23 documented as of this encounter
--- OUTSIDE RECORDS SUMMARY | 2025-04-20 10:00 | XMS_ITS | Encounter Summary ---
Author Organization [facility] Address [address] [place] [address] Care Team Providers Care Nut Former Name Role Phone Forrest Nickerson EMBEDDED SYSTEMS ENGINEER Unavailable [phone] Casa Phillips MD Primary Care Provider [phone] Encounter Details Date Type Department Care Team (Latest Contact Info) Description 04/20/2025 10:00 AM EDT - 04/20/2025 11:59 PM EDT Hospital Encounter PAV H Radiology [address] [place] [address] Non-small cell cancer of left lung (CMS/HCC) [...] in the past [address] [facility], were you homeless or living in a detention (including now)? No 03/31/2025 Utilities Answer Date Recorded In the past 12 months has th e [employer], gas, oil, or water company threatened to [...] 1 tablet by mouth daily. HYDROcodone-acet aminophen (Hernando) 10-325 MG tablet Take 1 tablet by mouth every 6 hours as needed for severe pain for up to 10 days. 40 tablet 04/20/2025 tamsulosin (Flomax) 0.4 MG 24 hr capsule Take 1 capsule by mouth daily. 30 capsule 04/04/2025 5 documented as of this encounter Plan of Treatment Upcoming Encounters Date Type Department Care Team ([facility] st Contact Info) Description 07/06/2025 10:40 AM EDT Office Visit Pav CC Head, Neck & Respiratory 800 [facility], 2nd [place] [address] Nikolai Naranjo MD [address] [facility] [address] [place] [address] documented as of this encounter Procedures Procedure [...] documented as of this encounter Care Teams Nut Former Relationship Specialty Start Date End Date Casa Phillips MD [address] [place] [address] PCP - General 02/22/25 Forrest Nickerson APRN [address] [place] [address] 03/06/23 documented as of this encounter
--- OUTSIDE RECORDS SUMMARY | 2025-04-20 10:30 | XMS_ITS | Encounter Summary ---
Author Organization [facility] Address [address] [place] [address] Care Team Providers Care Offset Machine Operator Name Role Phone Demetrio trevinoann Theresa DECKHAND CRAB BOAT Unavailable [phone] Casa Phillips MD Primary Care Provider [phone] Reason for Visit * Reason Comments Follow-up Encounter Details Date Type Department Care Team (Late st Contact Info) Description 04/20/2025 10:30 AM EDT Office Visit [facility] [address] [place] [address] Ирина Lopez MD [address] [facility] [address] [place] [address] Malignant neoplasm of upper lobe [...] any time in the past 12 m [facility], were you homeless or living in [...] from the original note were not included. [facility] Department of Surgery Section of Thoracic Surgery Outpatient Clinic Note Diagnosis: lung cancer Procedure: 03/29/2025 L thoracotomy HIEN Pathology: [id number] (2.6 cm with visceral pleural invasion) Interval [...] cough, fevers. Still having some pain requiring [place]. ROS: General: no fevers or chills, no [...] Upcoming Encounters Date Type Department Care Team ([facility] Contact Info) Description 07/06/2025 10:40 AM EDT Office Visit [facility] [address] [facility], [address] [place] [address] Nikolai Naranjo MD [address] [facility] Lorin Avila [facility] [address] [place] [address] documented as of this encounter Visit Diagnoses [...] documented as of this encounter Care Teams Offset Machine Operator Relationship Specialty Start Date End Date Casa Phillips MD [address] [place] [address] PCP - General 02/22/25 Forrest Nickerson APRN [address] [place] [address] 03/06/23 documented as of this encounter
[2025-05-20 11:58] VITALS: BMI 20.6
--- OUTSIDE RECORDS SUMMARY | 2025-05-20 12:00 | XMS_ITS | Encounter Summary ---
Author Organization [facility] Address [address] [place] [address] Care Team Providers Care Diver Assistant Name Role Phone Deep Keen APRN Primary Care Provider [phone] Forrest Nickerson APRN Unavailable [phone] Casa Phillips MD Primary Care Provider [phone] Encounter Details Date Type Department Care Team (Late Contact Info) Description 05/12/2024 Orders Only External Location [address] [place] [address] Provider, External Social History Tobacco Use Types [...] Upcoming Encounters Date Type Department Care Team ([facility] Contact Info) Description 07/06/2025 10:40 AM EDT Office Visit Pav [facility] Head[facility] Neck & Respiratory [address] [facility], [address] [place] [address] Nikolai Naranjo MD [address] [facility] [address] [place] [address] documented as of this encounter Procedures Procedure [...] documented as of this encounter Care Teams Diver Assistant Relationship Specialty Start Date End Date Deep Keen APRN [address] [place] [address] PCP - General 03/06/23 02/21/25 Casa Phillips MD [address] [place] [address] PCP - General 02/22/25 Forrest Nickerson APRN [address] [place] [address] 03/06/23 documented as of this encounter
--- OUTSIDE RECORDS SUMMARY | 2025-05-20 12:00 | XMS_ITS | Clinical Summary ---
Author Organization [facility] Address [address] [place] [address] Care Team Providers Care Bending Shed Worker Name Role Phone Demetrio trevinoann aCrdenas DIRECTOR OF ACCOUNTS RECEIVABLE Unavailable [phone] Casa Phillips MD Primary Care Provider [phone] Allergies Active Allergy Reactions Criticality Noted Date [...] if symptoms continue 1 each 5 Active tamsulosin (Flomax) 0.4 MG 24 hr capsule Take 1 capsule by mouth daily. 30 capsule 5 05/04/20 25 HYDROcodone-randall taminophen ([place]) 10-325 MG tablet Take 1 tablet by mouth every 6 hours as needed for severe pain for up to 10 days. 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) (Primary Dx) 04/20/2025 10:00 AM EDT - 04/20/2025 11:59 PM EDT Hospital Encounter [facility] Radiology [address] [place] [address] Non-small cell cancer of left lung (CMS/HCC) Discharge Disposition: Home or Self Care 04/20/2025 Telephone [facility] Head[facility] Neck & Respiratory [address] [phone] Ирина Lopez MD 04/20/2025 Travel 04/19/2025 Telephone [facility] Head[facility] Neck & Respiratory [address] [phone] Manny Lopez MD 04/07/2025 Telephone [facility] Hematology/BMT and Cellular Therapy Program [address] [phone] [facility] 04/07/2025 Telephone [facility] Hematology/BMT and Cellular Therapy Program [address] [phone] [facility] 04/07/2025 Telephone [facility] Hematology/BMT and Cellular Therapy Program [address] [place] [phone] [facility] 04/07/2025 Telephone [facility] Head[facility] Neck & Respiratory [address] [phone] Aishwarya Dye RN 04/06/2025 11:30 AM EDT Office Visit [facility] Respiratory [address] [phone] Ирина Lopez MD Non-small cell cancer of left lung (CMS/HCC) (Primary Dx) 04/06/2025 10:40 AM EDT Office Visit [facility] Respiratory [address] [address] Nikolai Naranjo MD Non-small cell cancer of left lung (CMS/HCC) (Primary Dx); CKD (chronic kidney disease) stage 2, GFR 60-89 ml/min; Tobacco use disorder; Essential hypertension; Type 2 diabetes mellitus with stage 2 chronic kidney disease, without long-term current use of insulin (CMS/HCC) 04/06/2025 Telephone [facility] Respiratory [address] [address] Nikolai Naranjo MD 04/06/2025 Travel 04/04/2025 Travel 04/03/2025 Travel 04/02/2025 Travel 04/01/2025 Travel 03/31/2025 Travel 03/30/2025 Travel 03/29/2025 1:34 PM EDT Anesthesia Event [facility] OPERATING ROOM [address] [place] [address] Jimmy Kim MD Bliss, Emily G, MD 03/29/2025 12:10 PM EDT - 03/29/2025 4:50 PM EDT Surgery [facility] OPERATING ROOM [address] [place] [address] Ирина Lopez MD LEFT VATS LOBECTOMY coverted to open, Left thoracotomy, with medistinal lymph node disection and lypoma [65506 (CPT )] 03/29/2025 9:43 AM EDT - 04/04/2025 12:18 PM EDT Hospital Encounter [facility] A Inpatient [address] [place] [phone] Ирина Lopez MD Non-small cell cancer of left lung (CMS/HCC) Discharge Disposition: Home or Self Care 03/29/2025 Travel 03/18/2025 Travel 03/11/2025 Telephone [facility] Head[facility] Neck [facility] Respiratory [address] [phone] Ирина Lopez MD 03/04/2025 Results Follow-Up [facility] Head[facility] Neck [facility] Respiratory [address] [phone] SeNikolai Oakley MD 03/03/2025 Telephone [facility] Head[facility] Neck & Respiratory 800 [facility], [address] [place] [address] Kirstie Trejo RN 03/02/2025 Telephone [facility] Head[facility] Neck & Respiratory 800 [facility], [address] [place] [address] Nikolai Naranjo MD 03/02/2025 Telephone [facility] Head[facility] Neck & Respiratory [address] [place] [address] Nikolai Naranjo MD 02/24/2025 12:44 PM EDT - 02/24/2025 11:59 PM EDT Hospital Encounter [facility] S Radiology [address], [address] [place] [phone] Non-small cell cancer of left lung (CMS/HCC) Discharge Disposition: Home or Self Care 02/24/2025 Travel 02/23/2025 10:30 AM EDT Office Visit [facility] Head[facility] Neck & Respiratory 800 [facility], [address] [place] [phone] Ирина Lopez MD Non-small cell cancer of left lung (CMS/HCC) 02/23/2025 9:00 AM EDT Office Visit [facility] Head[facility] Neck & Respiratory 800 [facility], [address] [place] [phone] Nikolai Naranjo MD Non-small cell cancer of left lung (CMS/HCC) (Primary Dx); CKD (chronic kidney disease) stage 2, GFR 60-89 ml/min; Tobacco use disorder 02/23/2025 Travel 02/22/2025 3:36 PM EDT - 02/22/2025 11:59 PM EDT Hospital Encounter [facility] Radiology 800 [facility], [place] [phone] Discharge Disposition: Home or Self Care 02/22/2025 3:36 PM EDT - 02/22/2025 11:59 PM EDT Hospital Encounter [facility] Radiology 800 [facility], [place] [phone] Non-small cell cancer of left lung (CMS/HCC) Discharge Disposition: Home or Self Care 02/22/2025 2:29 PM EDT - 02/22/2025 3:35 PM EDT Hospital Encounter [facility] Pulmonary Function Testing [address] [place] [address] Non-small cell cancer of left lung (CMS/HCC) Discharge Disposition: Home or Self Care 02/22/2025 Travel from Last 3 Months Family History [...] Respiratory 800 [facility], [address] [place] [address] Nikolai Naranjo MD 800 [facility] Lorin Avila [facility] [address] [place] [address] Health Maintenance Due Date Last Done Comments [facility]-Depression Screening 1945 [facility]-Diabetes: Hemoglobin A1C 1945 [facility]-Hepatitis C Screening 1945 [facility]-Medicare Annual Wellness (AWV) 1945 [facility]-Infant/Child/Adol SDOH Screenings 1945 [id number] Vaccine (#1) 1951 Diabetes: Dental Exam 1955 [...] ANESTHESIA PLACEHOLDER Routine 03/29/2025 1:48 PM EDT [place] AN ELECTIVE ENDOTRACHEAL AIRWAY Routine 03/29/2025 1:48 PM EDT NH THORACOSCOPY SURG LOBECTOMY 03/29/2025 1:24 PM EDT [...] for testing. Comment 04/04/2025 8:36 AM EDT [facility] Chief Order Dispatcher ID Sandy Kramer 04/04/2025 8:36 AM EDT [facility] Device ID [id number] 04/04/2025 8:36 AM EDT HEALTHCARE LAB Specimen Type POC Capillary 04/04/2025 8:36 AM EDT [facility] Blood Capillary blood specimen / Unknown 04/04/2025 8:34 AM EDT 04/04/2025 8:36 AM EDT us Ирина Lopez MD LAB POINT OF CARE TE ST DOCKED DEVICE UNSOLICITED RESULTS Final Result [facility] [address] [place] [address] * XR Chest 1 View (04/04/2025 5:20 [...] on 04/04/2025 10:20 AM us Scarlet Gamboa DIRECTOR OF ACCOUNTS RECEIVABLE IMG XR PROCEDURES Final Resul t * (ABNORMAL) CBC W/O Differential (04/04/2025 2:19 AM EDT) Only the most recent of8 resultswithin the time period is included. WBC Count 5.44 3.70 - 10.30 10*3/uL LAB HEMATOLOGY METHOD 04/04/2025 2:33 AM EDT [facility] RBC Count 3.77(L) 4.60 - 6.10 10*6/uL LAB HEMATOLOGY METHOD 04/04/2025 2:33 AM EDT [facility] HGB 10.7(L) 13.7 - 17.5 g/dL LAB HEMATOLOGY METHOD 04/04/2025 2:33 AM EDT [facility] HCT 32.4(L) 40.0 - 51.0 % LAB HEMATOLOGY METHOD 04/04/2025 2:33 AM EDT [facility] Platelet Count 220 155 - 369 10*3/uL LAB HEMATOLOGY METHOD 04/04/2025 2:33 AM EDT [facility] MCV 86 79 - 98 fL LAB HEMATOLOGY METHOD 04/04/2025 2:33 AM EDT [facility] MCH 28.4 26.0 - 32.0 pg LAB HEMATOLOGY METHOD 04/04/2025 2:33 AM EDT [facility] MCHC 33.0 30.7 - 35.5 g/dL LAB HEMATOLOGY METHOD 04/04/2025 2:33 AM EDT [facility] RDW 14.7(H) 11.5 - 14.5 % LAB HEMATOLOGY METHOD 04/04/2025 2:33 AM EDT [facility] MPV 9.1 8.8 - 12.5 fL LAB HEMATOLOGY METHOD 04/04/2025 2:33 AM EDT [facility] nRBC 0.4(H) <=0.0 per 100 WBCs LAB HEMATOLOGY METHOD 04/04/2025 2:33 AM EDT [facility] Blood Venous blood specimen / Unknown Venipuncture / Unknown 04/04/2025 2:19 AM EDT 04/04/2025 2:24 AM EDT us Ирина Lopez MD LAB BLOOD ORDERABLES Final R esult [facility] [address] [place] [address] * (ABNORMAL) Magnesium, Plasma (04/04/2025 2:19 AM EDT) Only the most recent of8 resultswithin the time period is included. [facility] Magnesium, Plasma 1.8(L) 1.9 - 2.4 mg/dL 04/04/2025 2:53 AM EDT [facility] Blood Venous blood specimen / Unknown Venipuncture / Unknown 04/04/2025 2:19 AM EDT 04/04/2025 2:24 AM EDT us Ирина Lopez MD LAB BLOOD ORDERABLES Final R esult [facility] [address] [place] [address] * (ABNORMAL) Renal Function Panel, Plasma (04/04/2025 2:19 AM EDT) Only the most recent of8 resultswithin the time period is included. [facility] Glucose, Plasma 166(H) 74 - 99 mg/dL 04/04/2025 2:53 AM EDT [facility] BUN, Plasma 18 8 - 23 mg/dL 04/04/2025 2:53 AM EDT [facility] Creatinine, Plasma 1.31(H) 0.70 - 1.20 mg/dL 04/04/2025 2:53 AM EDT [facility] BUN/Creatinine Ratio 14 04/04/2025 2:53 AM EDT [facility] Sodium, Plasma 136 136 - 145 mmol/L 04/04/2025 2:53 AM EDT [facility] Potassium, Plasma 4.3 3.6 - 4.9 mmol/L 04/04/2025 2:53 AM EDT [facility] Chloride, Plasma 103 97 - 107 mmol/L 04/04/2025 2:53 AM EDT [facility] CO2, Plasma 22 22 - 29 mmol/L 04/04/2025 2:53 AM EDT [facility] Anion Gap 11 6 - 16 mmol/L 04/04/2025 2:53 AM EDT [facility] Total Calcium, Plasma 8.2(L) 8.9 - 10.2 mg/dL 04/04/2025 2:53 AM EDT [facility] Phosphorus, Plasma 3.1 2.5 - 4.5 mg/dL 04/04/2025 2:53 AM EDT [facility] Albumin, Plasma 3.0(L) 3.5 - 5.2 g/dL 04/04/2025 2:53 AM EDT [facility] eGFRcr 55.7 mL/min/1.7 3m*2 04/04/2025 2:53 AM EDT [facility] Comment:Reported eGFRcr in m L/min/1.73m2 is based the CKD-EPI 2020 equation that does not use a race coefficient. Blood Venous blood specimen / Unknown Venipuncture / Unknown 04/04/2025 2:19 AM EDT 04/04/2025 2:24 AM EDT us Ирина Lopez MD LAB BLOOD ORDERABLES Final R esult [facility] [address] [place] [address] * Transfuse RBC (04/02/2025 2:53 PM EDT) [...] the time period is included. Product Code H0452P38 CH BLOO D BANK Dispense Status Transfused BLOOD BANK Blood Expiration Date [id number] BLOOD BANK Unit Number [id number] CH B LOOD BANK Product Blood Type 6200 BLOOD BANK Blood Type A+ CH BLOOD BANK Crossmatch Compatible CH BLOOD BANK Product Code [id number] CH BLOO D BANK Dispense Status Transfused BLOOD BANK Blood Expiration Date [id number] BLOOD BANK Unit Number [id number] CH B LOOD BANK Product Blood Type 6200 BLOOD BANK Blood Type A+ CH BLOOD BANK Crossmatch Compatible BLOOD BANK Other Scarlet Gamboa APRN BLOOD BANK PRODUCT ORDERABLES Final Result Performing Organization Address [facility] de Phone Number BLOOD BANK [address] [place] [address] * Type and Screen (04/02/2025 6:36 AM [...] ORDERABL ES Final Result Performing Organization Address City/[facility] Co de Phone Number BLOOD BANK [address] * ECG Adult (03/30/2025 8:37 AM EDT) EKG DIAGNOSIS CLASS Abnormal MUSE ECG Ventricular Rate 81 BPM MUSE ECG Atrial Rate 81 BPM MUSE ECG NH Interval 170 ms MUSE ECG QRSD Interval 104 ms MUSE ECG QT Interval 416 ms MUSE ECG QTC Interval 483 ms MUSE ECG P Metcalfe 39 degrees MUSE ECG R [place]calfe -51 degrees MUSE ECG T Wave Metcalfe -15 degrees MUSE ECG Diagnosis Poor data [...] ECG ORDERABLES Final Result Performing Organization Address City/[facility] Co de Phone Number MUSE ECG * Creatinine, Plasma (03/29/2025 7:58 PM EDT) Creatinine, Plasma 1.08 0.70 - 1.20 mg/dL 03/29/2025 8:39 PM EDT [facility] eGFRcr 70.2 mL/min/1.7 3m*2 03/29/2025 8:39 PM EDT [facility] Comment:Reported eGFRcr in m L/min/1.73m2 is based the CKD-EPI 2020 equation that does not use a race coefficient. Blood Arterial blood specimen / Unknown Arterial Puncture / Unknown 03/29/2025 7:58 PM EDT 03/29/2025 8:05 PM EDT Ирина Lopez MD LAB BLOOD ORDERABLES Final R esult [facility] [address] [place] [address] * Protime-INR (03/29/2025 7:58 PM EDT) Only the most recent of2 resultswithin the time period is included. Prothrombin Time 13.8 12.0 - 14.3 sec LAB COAGULATION METHOD 03/29/2025 8:38 PM EDT [facility] INR 1.0 0.9 - 1.1 LAB COAGULATION METHOD 03/29/2025 8:38 PM EDT [facility] Blood Arterial blood specimen / Unknown Arterial Puncture / Unknown 03/29/2025 7:58 PM EDT 03/29/2025 8:05 PM EDT Narrative [facility] - 03/29/2025 8:38 PM EDT OPTIMAL INR RANGES FOR PATIENT ON ORAL ANTICOAGULANT THERAPY Prevention of venous thromboembolism INR 2.0 to 3.0 In patients with heart disease: Atrial fibrillation INR 2.0 to 3.0 Valvular heart disease INR 2.0 to 3.0 Tissue heart valves INR 2.0 to 3.0 Mechanical prosthetic valves INR 2.5 to 3.5 Prevention of recurrent [place] INR 2.5 to 3.5 us Kiana Gusman INTERNET RETAILER LAB BLOOD ORDERABLES Final R esult Performing Organization Address City/[facility] [place] [place] [address] * Fibrinogen (03/29/2025 7:58 PM EDT) Only the most recent of2 resultswithin the time period is included. Pathologist [facility] Fibrinogen, Quantitative (Clottable) 294 208 - 459 mg/dL LAB COAGULATION METHOD 03/29/2025 8:38 PM EDT [facility] Blood Arterial blood specimen / Unknown Arterial Puncture / Unknown 03/29/2025 7:58 PM EDT 03/29/2025 8:05 PM EDT Daegis Kianamonica Gusman INTERNET RETAILER LAB BLOOD ORDERABLES Final R esult Performing Organization Address City/[facility]/ZIP Co de Phone Number [facility] [address] [place] [address] * (ABNORMAL) CBC and differential (03/29/2025 7:58 PM EDT) [facility] Signature WBC Count 8.18 3.70 - 10.30 10*3/uL LAB HEMATOLOGY METHOD 03/29/2025 8:29 PM EDT [facility] RBC Count 3.11(L) 4.60 - 6.10 10*6/uL LAB HEMATOLOGY METHOD 03/29/2025 8:29 PM EDT [facility] HGB 9.2(L) 13.7 - 17.5 g/dL LAB HEMATOLOGY METHOD 03/29/2025 8:29 PM EDT [facility] HCT 27.7(L) 40.0 - 51.0 % LAB HEMATOLOGY METHOD 03/29/2025 8:29 PM EDT [facility] Platelet Count 174 155 - 369 10*3/uL LAB HEMATOLOGY METHOD 03/29/2025 8:29 PM EDT [facility] MCV 89 79 - 98 fL LAB HEMATOLOGY METHOD 03/29/2025 8:29 PM EDT [facility] MCH 29.6 26.0 - 32.0 pg LAB HEMATOLOGY METHOD 03/29/2025 8:29 PM EDT [facility] MCHC 33.2 30.7 - 35.5 g/dL LAB HEMATOLOGY METHOD 03/29/2025 8:29 PM EDT [facility] RDW 12.6 11.5 - 14.5 % LAB HEMATOLOGY METHOD 03/29/2025 8:29 PM EDT [facility] MPV 9.3 8.8 - 12.5 fL LAB HEMATOLOGY METHOD 03/29/2025 8:29 PM EDT [facility] nRBC 0.0 <=0.0 per 100 WBCs LAB HEMATOLOGY METHOD 03/29/2025 8:29 PM EDT [facility] Differential Type Automated LAB HEMATOLOGY METHOD 03/29/2025 8:29 PM EDT [facility] Neutrophils % 86 % LAB HEMATOLOGY METHOD 03/29/2025 8:29 PM EDT [facility] Lymphocytes % 9 % LAB HEMATOLOGY METHOD 03/29/2025 8:29 PM EDT [facility] Monocytes % 5 % LAB HEMATOLOGY METHOD 03/29/2025 8:29 PM EDT [facility] Eosinophils % 0 % LAB HEMATOLOGY METHOD 03/29/2025 8:29 PM EDT [facility] Basophils % 0 % LAB HEMATOLOGY METHOD 03/29/2025 8:29 PM EDT [facility] Immature Granulocytes % 0 % LAB HEMATOLOGY METHOD 03/29/2025 8:29 PM EDT [facility] Neutrophils Absolute 7.00(H) 1.60 - 6.10 10*3/uL LAB HEMATOLOGY METHOD 03/29/2025 8:29 PM EDT [facility] Lymphocytes Absolute 0.71(L) 1.20 - 3.90 10*3/uL LAB HEMATOLOGY METHOD 03/29/2025 8:29 PM EDT [facility] Monocytes Absolute 0.40 0.30 - 0.90 10*3/uL LAB HEMATOLOGY METHOD 03/29/2025 8:29 PM EDT [facility] Eosinophils Absolute 0.02 0.00 - 0.50 10*3/uL LAB HEMATOLOGY METHOD 03/29/2025 8:29 PM EDT [facility] Basophils Absolute 0.02 0.00 - 0.10 10*3/uL LAB HEMATOLOGY METHOD 03/29/2025 8:29 PM EDT [facility] Immature Granulocytes Absolute 0.03 0.00 - 0.06 10*3/uL LAB HEMATOLOGY METHOD 03/29/2025 8:29 PM EDT [facility] Blood Arterial blood specimen / Unknown Arterial Puncture / Unknown 03/29/2025 7:58 PM EDT 03/29/2025 8:04 PM EDT Narrative [facility] - 03/29/2025 8:29 PM EDT Therapeutic decision making should be based on absolute values, rather than percentages. us Kiana Gusman CRNA LAB BLOOD ORDERABLES Final R esult [facility] [address] [place] [address] * Surgical Pathology Exam (03/29/2025 5:10 PM EDT) Case Report Surgical Pathology Case: [id number] Authorizing Provider: Ирина Lopez MD Collected: 03/29/2025 1716 Ordering Location: [facility] A OPERATING ROOM Received: 03/30/2025 0755 [...] Other (specify site), lipoma 2:45 PM EDT [facility] Final Diagnosis A. LUNG, BRONCHIAL MARGIN, EXCISION, [...] TISSUE, EXCISION: - LIPOMA. 2:45 PM EDT [facility] at 1445 EDT Synoptic Checklist LUNG LUNG [...] pN Category: pN0 5 2:45 PM EDT [facility] Clinical Information Non-small cell cancer of left lung 5 2:45 PM EDT [facility] Intraoperative Consultation A. BRONCHIAL MARGIN FSA: No tumor seen. Todd Gibbs MD. 03/29/2025 @ 1745. 5 2:45 PM EDT [facility] Special and Immunohistochemical Stains Special Stain: [id number] Elastic Trichrome: Demonstrates visceral pleural invasion F8-2 Elastic Trichrome: Demonstrates visceral pleural invasion All controls show appropriate reactivity. All immunohistochemis try, in situ hybridization, and histochemical tests were developed by and are performed at the [facility], [address] [place] [address]. All tests reported here, except those addressing [...] on decalcified specimens. 5 2:45 PM EDT [facility] Gross Description A. BRONCHIAL [...] 0.3-0.6 cm in greatest dimension are identified. Vacuum Furnace Operator sections are submitted as follows: F1: [...] areas of hemorrhage or necrosis are identified. Vacuum Furnace Operator sections are submitted in cassettes G1-G3. Cold Time: 13h 05m SWATI Wong (ASCP) 5 2:45 PM EDT [facility] Note: A resident was involved in the service. I attest I examined the relevant preparations for the specimens and confirmed the diagnosis or interpretation. 5 2:45 PM EDT [facility] Tissue Structure of lymph [...] MD LAB PATHOLOGY ORDERABLES Fin al Result [facility] [address] [place] [address] * (ABNORMAL) Blood gas panel, arterial (03/29/2025 4:05 PM EDT) Only the most recent of2 resultswithin the time period is included. pH, Arterial 7.38 7.31 - 7.42 LAB HEMATOLOGY METHOD 03/29/2025 4:13 PM EDT [facility] pCO2, Arterial 45 32 - 45 mmHg LAB HEMATOLOGY METHOD 03/29/2025 4:13 PM EDT [facility] pO2, Arterial 216 >70 mmHg LAB HEMATOLOGY METHOD 03/29/2025 4:13 PM EDT [facility] SO2, Measured, Arterial 100(H) 94 - 98 % LAB HEMATOLOGY METHOD 03/29/2025 4:13 PM EDT [facility] Base Excess, Arterial 1.2 -2.0 - 3.0 mmol/L LAB HEMATOLOGY METHOD 03/29/2025 4:13 PM EDT [facility] Bicarbonate, Calculated, Arterial 27(H) 22 - 26 mmol/L LAB HEMATOLOGY METHOD 03/29/2025 4:13 PM EDT [facility] Hematocrit, Whole Blood 31.6(L) 40.0 - 51.0 % LAB HEMATOLOGY METHOD 03/29/2025 4:13 PM EDT [facility] Sodium, Whole Blood 138 136 - 145 mmol/L LAB HEMATOLOGY METHOD 03/29/2025 4:13 PM EDT [facility] Potassium, Whole Blood 3.8 3.6 - 4.9 mmol/L LAB HEMATOLOGY METHOD 03/29/2025 4:13 PM EDT [facility] Chloride, Whole Blood 103 97 - 107 mmol/L LAB HEMATOLOGY METHOD 03/29/2025 4:13 PM EDT [facility] Glucose, Whole Blood 123(H) 74 - 99 mg/dL LAB HEMATOLOGY METHOD 03/29/2025 4:13 PM EDT [facility] Ionized Calcium, Whole Blood 4.4(L) 4.6 - 5.1 mg/dL LAB HEMATOLOGY METHOD 03/29/2025 4:13 PM EDT [facility] Lactate, Arterial, Whole Blood 0.8 0.5 - 1.6 mmol/L LAB HEMATOLOGY METHOD 03/29/2025 4:13 PM EDT [facility] Blood Arterial blood specimen / Unknown 03/29/2025 4:05 PM EDT 03/29/2025 4:11 PM EDT Comment:Pre-op diagnosis: Non-small cell cancer of left lung us Ирина Lopez MD LAB BLOOD ORDERABLES Final R esult [facility] [address] [place] [address] * APTT (03/29/2025 4:04 PM EDT) aPTT 28 25 - 35 sec LAB COAGULATION METHOD 03/29/2025 4:39 PM EDT [facility] Blood Arterial blood specimen / Unknown 03/29/2025 4:04 PM EDT 03/29/2025 4:18 PM EDT Comment:Pre-op diagnosis: Non-small cell cancer of left lung us Ирина Lopez MD LAB BLOOD ORDERABLES Final R esult [facility] [address] [place] [address] * Peripheral IV (03/29/2025 2:00 PM EDT) [...] procedure well with no complications. Staffing Performed: INTERNET RETAILER us Robert Santos MD ANESTHESIA ORDERABLES Edited Re sult - Final * NH AN ELECTIVE ENDOTRACHEAL AIRWAY, PB ANESTHESIA PLACEHOLDER (03/29/2025 1:48 PM EDT) Robert Bloom MD - 03/29/2025 1:48 PM EDT Robert Santos MD 03/29/2025 3:02 PM Airway Date/Time: 03/29/2025 1:48 PM Reason: elective Airway not difficult General Information and Staff Patient location during procedure: [place] INTERNET RETAILER: Kiana Gusman INTERNET RETAILER Performed: INTERNET RETAILER Patient Condition Indications for airway management: anesthesia [...] LAB HEMATOLOGY METHOD 03/29/2025 12:51 PM EDT [facility] pCO2, Venous 49 40 - 55 mmHg LAB HEMATOLOGY METHOD 03/29/2025 12:51 PM EDT [facility] pO2, Venous 54(H) 25 - 40 mmHg LAB HEMATOLOGY METHOD 03/29/2025 12:51 PM EDT [facility] SO2, Measured, Venous 87(H) 65 - 80 % LAB HEMATOLOGY METHOD 03/29/2025 12:51 PM EDT [facility] Base Excess, Venous 1.7 -2.0 - 3.0 mmol/L LAB HEMATOLOGY METHOD 03/29/2025 12:51 PM EDT [facility] Bicarbonate, Calculated, Venous 28(H) 22 - 26 mmol/L LAB HEMATOLOGY METHOD 03/29/2025 12:51 PM EDT [facility] Hematocrit, Whole Blood 39.2(L) 40.0 - 51.0 % LAB HEMATOLOGY METHOD 03/29/2025 12:51 PM EDT [facility] Sodium, Whole Blood 140 136 - 145 mmol/L LAB HEMATOLOGY METHOD 03/29/2025 12:51 PM EDT [facility] Potassium, Whole Blood 4.0 3.6 - 4.9 mmol/L LAB HEMATOLOGY METHOD 03/29/2025 12:51 PM EDT [facility] Chloride, Whole Blood 103 97 - 107 mmol/L LAB HEMATOLOGY METHOD 03/29/2025 12:51 PM EDT [facility] Glucose, Whole Blood 97 74 - 99 mg/dL LAB HEMATOLOGY METHOD 03/29/2025 12:51 PM EDT [facility] Lactate, Venous, Whole Blood 1.6 0.5 - 2.2 mmol/L LAB HEMATOLOGY METHOD 03/29/2025 12:51 PM EDT [facility] Ionized Calcium, Whole Blood 4.5(L) 4.6 - 5.1 mg/dL LAB HEMATOLOGY METHOD 03/29/2025 12:51 PM EDT [facility] Blood Venous blood specimen / Unknown Venipuncture / Unknown 03/29/2025 12:27 PM EDT 03/29/2025 12:49 PM EDT us Robert Santos MD LAB BLOOD ORDERABLES Final Resu lt [facility] [address] [place] [address] * MR Head w and wo IV [...] scanner: Siemens Biograph 40 mCT. PET/CT acquisition: [id number]-fa-oug-thighs. Standardized uptake value (SUV): Corrected for body weight only. CT: Low-dose, jqa-leomun-nswq, without intravenous contrast. TOTAL DLP (Dose Length [...] 1.8 (image 161 series 4 and 3). Ldf-VTF-hvqz subpleural 4 mm tiny perifissural nodule is [...] scanner: Siemens Biograph 40 mCT. PET/CT acquisition: [id number]-qg-hdx-thighs. Standardized uptake value (SUV): Corrected for body weight only. CT: Low-dose, dns-mftxku-ttiy, without intravenous contrast. TOTAL DLP (Dose Length [...] SUV 1.8 (image 161series 4 and 3). Kwu-PXM-twra subpleural 4 mm tiny perifissural nodule is [...] on 02/23/2025 11:30 AM Angel Parker MD [facility] [place] PROCEDURES Final Result * (ABNORMAL) Pulmonary function testing (02/22/2025 3:10 PM EDT) IUX0CRA 3.10 2.66 - 4.70 L VYAIRE PFT FVC PRED 3.68 VYAIRE PFT FVC LLN 2.66 VYAIRE PFT FVCPREZSCORE -0.93 VYAIRE PFT FVCPRE%PRED 84 % % VYAIRE PFT FVC PREDAUTH US_Quanjer GLI (2011) VYAIRE PFT FVC Z-SCORE -0.93 VYAIRE PFT FEV1 PRE 2.19 1.91 - 3.51 L VYAIRE PFT FEV1 PRED 2.74 VYAIRE PFT FEV1 LLN 1.91 VYAIRE PFT GEB5LKAHWKWOJ -1.12 VYAIRE PFT FEV1_Pre%Pred 80 % % VYAIRE PFT FEV[facility] (2011) VYAIRE PFT FEV1 Z-SCORE -1.12 VYAIRE PFT FEV1/FVC PRE 70.45 60.56 - 88.37 % VYAIRE PFT ICK4UZTPCSA 75 VYAIRE PFT JXN4KNDVOK 61 VYAIRE PFT PKB8ISTFDSQQOJYW -0.55 VYAIRE PFT ELQ2NAEURT%PRED 94 % % VYAIRE PFT LDD2LCQJYKYK [facility] (2011) VYAIRE PFT GEL2AOQASASGS -1 VYAIRE PFT FTA84-31% PRE 1.22 0.77 - 3.77 L/s VYAIRE PFT SYF21-68%_Pred 1.98 VYAIRE PFT VLI8252%LLN 0.77 VYAIRE PFT IJH7826%PREZSCORE -0.95 VYAIRE PFT ANM5709%PRE%PRED 61 % % VYAIRE PFT XAQ1516%PREDAUTVanderbilt Rehabilitation Hospital (2011) VYAIRE PFT PEF PRE 5.01 4.85 - 9.22 L/s VYAIRE PFT PEF PRED 7.04 VYAIRE PFT PEF LLN 4.85 VYAIRE PFT PEFPREZSCORE -1.52 VYAIRE PFT PEFPRE%PRED 71 % % VYAIRE PFT PEF PREDAUT NHANES III (1998) VYAIRE PFT XPMTQIXAYPYYCOEB2XEU 15.18(A) 16.80 - 30.86 ml/(min* mmHg) VYAIRE PFT DLCOSINGLEBREATH PRED 23.19 VYAIRE PFT DLCOSINGLEBREATH LLN 16.80 VYAIRE PFT DLCOSINGLEBREATH Z-SCORE -2.12 VYAIRE PFT DLCOSINGLEBREATH % PRED 65.4 % VYAIRE PFT DLCOSINGLEBREATH PR[facility]UN[facility] Stanojevic TLCO GLI (2019) VYAIRE PFT DLCOSINGLEBREATH Z-SCORE -2.12 02/22/2025 3:48 PM EDT VYAIRE PFT RINOCVSTDZQSNYAER8LN E 15.18(A) 16.80 - 30.86 ml/(min* mmHg) VYAIRE PFT DLCOCSINGLEBREATH PRED 23.19 VYAIRE PFT DLCOCSINGLEBREATH LLN 16.80 VYAIRE PFT DLCOCSINGLEBREATH Z-SCORE -2.12 VYAIRE PFT DLCOCSINGLEBREATH % PRED 65.4 % VYAIRE PFT DLCOCSINGLEBREATH PREDUN[facility] Stanojevic TLCO GLI (2019) VYAIRE PFT SWUORZ0GBZ 3.06 2.88 - 5.12 ml/(min* mmHg*L) VYAIRE PFT DLCOVAPRED 3.95 VYAIRE PFT DLCOVALLN 2.88 VYAIRE PFT DLCOVAZSCORE -1.37 VYAIRE PFT DLCOVA%PRED 77.4 % VYAIRE PFT DLCOVAPREDAUT Stanojevic TLCO GLI (2019) VYAIRE PFT DLCOVAZSCORE -1.37 02/22/2025 3:48 PM EDT VYAIRE PFT VYCEJOIUN6CGD 3.06 2.88 - 5.12 ml/(min* mmHg*L) VYAIRE PFT DLCOC SB/VA PRED 3.95 VYAIRE PFT DLCOC SB/VA LLN 2.88 VYAIRE PFT DLCOC SB/VA Z-SCORE -1.37 VYAIRE PFT DLCOC SB/VA % PRED 77.4 % VYAIRE PFT DLCOC SB/VA PR[facility] Stanojevic TLCO GLI (2019) VYAIRE PFT DLCOC SB/VA Z-SCORE -1.37 02/22 3:48 PM EDT VYAIRE PFT JRNWONAYSAGXSV2UUK 4.97 4.73 - 7.15 L VYAIRE PFT VASINGLEBREATH PRED 5.90 VYAIRE PFT VASINGLEBREATH LLN 4.73 VYAIRE PFT VASINGLEBREATH Z-SCORE -1.31 VYAIRE PFT VASINGLEBREATH % PRED 84.2 % VYAIRE PFT VASINGLEBREATH PREDAUT Stanojevic TLCO GLI (2019) VYAIRE PFT VASINGLEBREATH Z-SCORE -1.31 02/22/2025 3:48 PM EDT VYAIRE PFT VSJGFWXLXMUFGIO0RDS 3.12 2.66 - 4.70 L VYAIRE PFT IVCSINGLEBREATH PRED 3.68 VYAIRE PFT IVCSINGLEBREATH LLN 2.66 VYAIRE PFT IVCSINGLEBREATH Z-SCORE -0.89 VYAIRE PFT IVCSINGLEBREATH % PRED 85.0 % VYAIRE PFT IVCSINGLEBREATH PREDUN[facility] US_Quanjer GLI (2011) VYAIRE PFT CLEMENTINE% VCMAX PRE 100.00 % VYAIRE PFT TLC SB PRE 5.11(A) 5.16 - 8.10 L VYAIRE PFT TLCSINGLEBREATH PRED 6.62 VYAIRE PFT TLCSINGLEBREATH LLN 5.16 VYAIRE PFT TLCSINGLEBREATH Z-SCORE -1.70 VYAIRE PFT TLCSINGLEBREATH % PRED 77.3 % VYAIRE PFT TLCSINGLEBREATH PREDState [facility] School for [facility] Lung volumes GLI (2019)__ VYAIRE PFT HB PRE 14.60 g(Hb)/dL VYAIRE PFT UQW3NBH 6.30 5.16 - 8.10 L VYAIRE PFT TLCPRED 6.62 VYAIRE PFT TLCLLN 5.16 VYAIRE PFT TLCULN 8.10 VYAIRE PFT TLCZSCORE -0.36 VYAIRE PFT TLC%PRED 95.1 % VYAIRE PFT TLCPREDAUTLouis [facility] Lung volumes GLI (2019)__ VYAIRE PFT VC0PRE 3.29 2.66 - 4.70 L VYAIRE PFT VCPRED 3.68 VYAIRE PFT VCLLN 2.66 VYAIRE PFT VCULN 4.70 VYAIRE PFT VCZSCORE -0.63 VYAIRE PFT VC%PRED 89.4 % VYAIRE PFT VCPREDAUT US_Quanjer GLI (2011) VYAIRE PFT IC0PRE 1.78(A) 1.89 - 3.54 L VYAIRE PFT ICPRED 2.73 VYAIRE PFT ICLLN 1.89 VYAIRE PFT ICULN 3.54 VYAIRE PFT IC Z-SCORE -1.86 VYAIRE PFT IC%PRED 65.0 % VYAIRE PFT ICPREDAUTLouis Stokes [facility] Lung volumes GLI (2019)__ VYAIRE PFT KLBDHZYV0NHQ 4.52 2.59 - 5.10 L VYAIRE PFT FRCPLETH PRED 3.70 VYAIRE PFT FRCPLETH LLN 2.59 VYAIRE PFT FRCPLETH ULN 5.10 VYAIRE PFT FRCPLETH Z-SCORE 1.01 VYAIRE PFT FRCPLETH % PRED 122.0 % VYAIRE PFT FRCPLET PREDAUTLouis Stokes [facility] Lung volumes GLI (2019)__ VYAIRE PFT KCI6DOG 1.51 0.31 - 2.34 L VYAIRE PFT ERVPRED 1.12 VYAIRE PFT ERVLLN 0.31 VYAIRE PFT ERVULN 2.34 VYAIRE PFT ERV Z-SCORE 0.59 VYAIRE PFT ERV%PRED 135.3 % VYAIRE PFT ERVPREDState [facility] School for Boys Lung volumes GLI (2019)__ VYAIRE PFT RV0PRE 3.01 1.43 - 3.98 L VYAIRE PFT RVPRED 2.58 VYAIRE PFT RVLLN 1.43 VYAIRE PFT RVULN 3.98 VYAIRE PFT RVZSCORE 0.54 VYAIRE PFT RV%PRED 116.9 % VYAIRE PFT RVPREDAUT [facility] Lung volumes GLI (2019)__ VYAIRE PFT RV%AEL4RFU 47.82 26.68 - 53.53 % VYAIRE PFT RV%TLCPRED 40 VYAIRE PFT RV%TLCLLN 27 VYAIRE PFT RV%TLCULN 54 VYAIRE PFT RV%TLCZSCORE 0.97 VYAIRE PFT RV%TLC%PRED 120.2 % VYAIRE PFT RV%TLCPREDAUTH [facility] Lung volumes GLI (2019)__ VYAIRE PFT Anatomical Region Laterality Modality PFT 02/22/2025 2:39 PM EDT Narrative 02/23/2025 12:58 PM EDT Pulmonary Function Testing Report Cole Feliz JrParker 79 y.o. underwent pulmonary function testing today at the [facility] The patient underwent spirometry, lung [...] from Last 3 Months Insurance [employer] [facility] MEDICARE Advance Directives * Full Code (Latest Code Status on File) Date Activated Date Inactivated Comments 03/29/2025 7:30 PM 04/04/2025 2:23 PM Question Answer Comments I have reviewed the capacity from the link above and, if needed, have updated to appropriate status: No Care Teams Bending Shed Worker Relationship Specialty Start Date End Date Casa Phillips MD [address] [place] [address] PCP - General 02/22/25 Forrest Nickerson APRN [address] [place] [address] 03/06/23
--- OUTSIDE RECORDS SUMMARY | 2025-05-20 12:00 | XMS_ITS | Encounter Summary ---
Author Organization [facility] Address [address] [place] [address] Care Team Providers Care Senior Information Security Engineer Name Role Phone Forrest Nickerson INDEXER Unavailable [phone] Casa Phillips MD Primary Care Provider [phone] Encounter Details Date Type Department Care Team (Late st Contact Info) Description 04/07/2025 Telephone PAV CC Hematology/BMT and Cellular Therapy Program [address] [place] [address] [place] [address] Tyler Montero Social History Tobacco Use Types [...] any time in the past 12 m [facility], were you homeless or living in [...] Pav CC Head, Neck & Respiratory [address] [facility], 2nd [place] [address] Nikolai Naranjo MD [address] [facility] [address] [place] [address] documented as of this encounter Visit Diagnoses Not on filedocumented in this encounter Additional Health Concerns Assessment Noted Time A fall risk assessment has been complete d for the patient 04/06/2025 10:27 AM EDT A Body Mass Index follow-up plan has been documented for the patient 04/06/2025 12:11 PM EDT documented as of this encounter Care Teams Senior Information Security Engineer Relationship Specialty Start Date End Date Casa Phillips MD [address] [place] [address] PCP - General 02/22/25 Forrest Nickerson APRN [address] [place] [address] 03/06/23 documented as of this encounter
--- OUTSIDE RECORDS SUMMARY | 2025-05-20 12:00 | XMS_ITS ---
Author Organization [facility] Address [address] [place] [address] Care Team Providers Care Triage Registered Nurse Name Role Phone Zari Nickersonhéctor Theresa PROFESSOR OF THEATER Unavailable [phone] Casa Phillips MD Primary Care Provider [phone] Active Problems Problem Noted Date Diagnosed Date [...]
--- OUTSIDE RECORDS SUMMARY | 2025-05-20 12:00 | XMS_ITS | Encounter Summary ---
Author Organization [facility] Address [address] [place] [address] Care Team Providers Care Credit Control Manager Name Role Phone Forrest Nickerson STITCHER SPECIAL MACHINE Unavailable [phone] Casa Phillips MD Primary Care Provider [phone] Encounter Details Date Type Department Care Team (Late st Contact Info) Description 04/07/2025 Telephone PAV CC Hematology/BMT and Cellular Therapy Program [address] [place] [address] [place] [address] Tyler Montero Social History Tobacco Use Types [...] any time in the past 12 m [facility], were you homeless or living in [...] & Respiratory [address] , [address] [place] [address] Nikolai Naranjo MD [address] [place] [address] documented as of this encounter Visit Diagnoses Not on filedocumented in this encounter Additional Health Concerns Assessment Noted Time A fall risk assessment has been complete d for the patient 04/06/2025 10:27 AM EDT A Body Mass Index follow-up plan has been documented for the patient 04/06/2025 12:11 PM EDT documented as of this encounter Care Teams Credit Control Manager Relationship Specialty Start Date End Date Casa Phillips MD [address] [place] [address] PCP - General 02/22/25 Forrest Nickerson APRN [address] [place] [address] 03/06/23 documented as of this encounter
--- OUTSIDE RECORDS SUMMARY | 2025-05-20 12:01 | XMS_ITS | Encounter Summary ---
Author Organization [facility] Address [address] [place] [address] Care Team Providers Care Ballaster Name Role Phone Demetrio Nickersonann Cardenas PLATE GAUGER Unavailable [phone] Casa Phillips MD Primary Care Provider [phone] Encounter Details Date Type Department Care Team (Late st Contact Info) Description 04/06/2025 Telephone Pav CC Head, Neck & Respiratory [address] [facility], 2nd [place] [address] Nikolai Naranjo MD 800 [facility] [address] [place] [address] Social History Tobacco Use Types [...] any time in the past 12 m [facility], were you homeless or living [...] Pav CC Head, Neck & Respiratory [address] [facility], [address]nd [place] [address] Nikolai Naranjo MD [address] [facility] [address] [place] [address] documented as of this encounter Visit Diagnoses Not on filedocumented in this encounter Additional Health Concerns Assessment Noted Time A fall risk assessment has been complete d for the patient 04/06/2025 10:27 AM EDT A Body Mass Index follow-up plan has been documented for the patient 04/06/2025 12:11 PM EDT documented as of this encounter Care Teams Ballaster Relationship Specialty Start Date End Date Casa Phillips MD [address] [place] [address] PCP - General 02/22/25 Forrest Nickerson APRN [address] [place] [address] 03/06/23 documented as of this encounter
--- OUTSIDE RECORDS SUMMARY | 2025-05-20 12:01 | XMS_ITS | Encounter Summary ---
Author Organization [facility] Address [address] [place] [address] Care Team Providers Care Pulverizer Mill Operator Name Role Phone KraiglillianForrest GRAIN DRIER OPERATOR Unavailable [phone] Casa Phillips MD Primary Care Provider [phone] Encounter Details Date Type Department Care Team (Late st Contact Info) Description 04/07/2025 Telephone Pav CC Head, Neck & Respiratory [address] , [address] [place] [address] Aishwarya Dye, RN [facility] Social History Tobacco [...] Referral sent to Dr Dagoberto Rosales with [facility]. documented in this encounter Plan of Treatment Upcoming Encounters Date Type Department Care Team (Lacey st Contact Info) Description 07/06/2025 10:40 AM EDT Office Visit Pav CC Head, Neck & Respiratory [address], [address] [place] [address] Nikolai Naranjo MD 800 [facility] [address] [facility] [address] [place] [address] documented as of this encounter Visit Diagnoses Not on filedocumented in this encounter Additional Health Concerns Assessment Noted Time A fall risk assessment has been complete d for the patient 04/06/2025 10:27 AM EDT A Body Mass Index follow-up plan has been documented for the patient 04/06/2025 12:11 PM EDT documented as of this encounter Care Teams Pulverizer Mill Operator Relationship Specialty Start Date End Date Casa Phillips MD [address] [place] [address] PCP - General 02/22/25 Forrest Nickerson APRN [address] [place] [address] 03/06/23 documented as of this encounter
--- OUTSIDE RECORDS SUMMARY | 2025-05-20 12:01 | XMS_ITS | Encounter Summary ---
Author Organization [facility] Address [address] [place] [address] Care Team Providers Care Counseling Director Name Role Phone Forrest Nickerson BENZENE WORKER Unavailable Casa Phillips MD Primary Care Provider [phone] Encounter Details Date Type Department Care Team [...] time in the past 12 m [facility], were you homeless or living in [...] Suicidal Behavior (Lifetime) No 8:30 AM EDT Carmlela Iniguez RN documented as of this encounter Plan of Treatment Upcoming Encounters Date Type Department Care Team (Late st Contact Info) Description 07/06/2025 10:40 AM EDT Office Visit Pav CC Head, Neck & Respiratory 800 [facility], 2nd [place] [address] Nikolai Naranjo MD 800 [facility] [address] [facility] [address] [place] [address] documented as of this encounter Visit Diagnoses Not on filedocumented in this encounter Additional Health Concerns Assessment Noted Time A fall risk assessment has been complete d for the patient 02/23/2025 8:48 AM EDT A Body Mass Index follow-up plan has been documented for the patient 04/04/2025 10:30 AM EDT documented as of this encounter Care Teams Counseling Director Relationship Specialty Start Date End Date Casa Phillips MD [address] [place] [address] PCP - General 02/22/25 Forrest Nickerson APRN [address] [place] [address] 03/06/23 documented as of this encounter
--- OUTSIDE RECORDS SUMMARY | 2025-05-20 12:01 | XMS_ITS | Encounter Summary ---
Author Organization [facility] Address [address] [place] [address] Care Team Providers Care Production Inspector Name Role Phone Forrest Nickerson ANIMAL SERVICES OFFICER Unavailable [phone] Casa Phillips MD Primary Care Provider [phone] Encounter Details Date Type Department Care Team [...] Respiratory [address] [facility], [address]nd [place] [address] Nikolai Naranjo MD [address] [facility] [address] [place] [address] documented as of this encounter Visit Diagnoses Not on filedocumented in this encounter Additional Health Concerns Assessment Noted Time A fall risk assessment has been complete d for the patient 02/23/2025 8:48 AM EDT A Body Mass Index follow-up plan has been documented for the patient 04/04/2025 10:30 AM EDT documented as of this encounter Care Teams Production Inspector Relationship Specialty Start Date End Date Casa Phillips MD [address] [place] [address] PCP - General 02/22/25 Forrest Nickerson APRN [address] [place] [address] 03/06/23 documented as of this encounter
--- OUTSIDE RECORDS SUMMARY | 2025-05-20 12:01 | XMS_ITS | Encounter Summary ---
Author Organization [facility] Address [address] [place] [address] Care Team Providers Care Senior Systems Architect Name Role Phone Forrest Nickerson LIC[address] MAGISTRATE Unavailable [phone] Casa Phillips MD Primary Care Provider [phone] Encounter Details Date Type Department Care Team (Late st Contact Info) Description 04/07/2025 Telephone PAV CC Hematology/BMT and Cellular Therapy Program [address] [place] [address] [place] [address] Tyler Montero Social History Tobacco Use Types [...] Respiratory 800 [facility], 2nd [place] [address] Nikolai Naranjo MD [address] [facility] [address] [place] [address] documented as of this encounter Visit Diagnoses Not on filedocumented in this encounter Additional Health Concerns Assessment Noted Time A fall risk assessment has been complete d for the patient 04/06/2025 10:27 AM EDT A Body Mass Index follow-up plan has been documented for the patient 04/06/2025 12:11 PM EDT documented as of this encounter Care Teams Senior Systems Architect Relationship Specialty Start Date End Date Casa Phillips MD [address] [place] [address] PCP - General 02/22/25 Forrest Nickerson APRN [address] [place] [address] 03/06/23 documented as of this encounter
--- OUTSIDE RECORDS SUMMARY | 2025-05-20 12:01 | XMS_ITS | Encounter Summary ---
Author Organization [facility] Address [address] [place] [address] Care Team Providers Care Certified Wellness Program Manager Name Role Phone Forrest Nickerson RELIEF MASTER Unavailable [phone] Casa Phillips MD Primary Care Provider [phone] Encounter Details Date Type Department Care Team [...] Respiratory [address] [facility], [address] [place] [address] Nikolai Naranjo MD [address] [facility] [address] [facility] [address] [place] [address] documented as of this encounter Visit Diagnoses Not on filedocumented in this encounter Additional Health Concerns Assessment Noted Time A fall risk assessment has been complete d for the patient 02/23/2025 8:48 AM EDT A Body Mass Index follow-up plan has been documented for the patient 04/04/2025 10:30 AM EDT documented as of this encounter Care Teams Certified Wellness Program Manager Relationship Specialty Start Date End Date Casa Phillips MD [address] [place] [address] PCP - General 02/22/25 Forrest Nickerson APRN [address] [place] [address] 03/06/23 documented as of this encounter
--- OUTSIDE RECORDS SUMMARY | 2025-05-20 12:01 | XMS_ITS | Encounter Summary ---
Author Organization [facility] Address [address] [place] [address] Care Team Providers Care Help Desk Agent Name Role Phone Demetrio Nickersonann Theresa PILE DRIVING TECHNICIAN Unavailable [phone] Casa Phillips MD Primary Care Provider [phone] Encounter Details Date Type Department Care Team [...] Pav CC Head, Neck & Respiratory [address] [facility], [address] [place] [address] Nikolai Naranjo MD [address] [facility] [address] [place] [address] documented as of this encounter Visit Diagnoses Not on filedocumented in this encounter Additional Health Concerns Assessment Noted Time A fall risk assessment has been complete d for the patient 02/23/2025 8:48 AM EDT A Body Mass Index follow-up plan has been documented for the patient 04/04/2025 10:30 AM EDT documented as of this encounter Care Teams Help Desk Agent Relationship Specialty Start Date End Date Casa Phillips MD [address] [place] [address] PCP - General 02/22/25 Forrest Nickerson APRN [address] [place] [address] 03/06/23 documented as of this encounter
--- OUTSIDE RECORDS SUMMARY | 2025-05-20 12:01 | XMS_ITS | Encounter Summary ---
Author Organization [facility] Address [address] [place] [address] Care Team Providers Care Casino Cage Manager Name Role Phone Forrest Nickerson TABLE GAMES DEALER Unavailable [phone] Casa Phillips MD Primary Care Provider [phone] Encounter Details Date Type Department Care Team [...] the past 12 months has th e rateGenius, gas, oil, or water company threatened to [...] Pav CC Head, Neck & Respiratory [address] [facility], [address]nd [place] [address] Nikolai Naranjo MD [address] [facility] [address] [place] [address] documented as of this encounter Visit Diagnoses Not on filedocumented in this encounter Additional Health Concerns Assessment Noted Time A fall risk assessment has been complete d for the patient 02/23/2025 8:48 AM EDT A Body Mass Index follow-up plan has been documented for the patient 04/04/2025 10:30 AM EDT documented as of this encounter Care Teams Casino Cage Manager Relationship Specialty Start Date End Date Casa Phillips MD [address] [place] [address] PCP - General 02/22/25 Forrest Nickerson APRN [address] [place] [address] 03/06/23 documented as of this encounter
--- OUTSIDE RECORDS SUMMARY | 2025-05-20 12:01 | XMS_ITS | Encounter Summary ---
Author Organization [facility] Address [address] [place] [address] Care Team Providers Care Machine Shorthand Reporter Name Role Phone Forrest Nickerson FRUIT LOADER MACHINE OPERATOR Unavailable [phone] Casa Phillips MD Primary Care Provider [phone] Encounter Details Date Type Department Care Team [...] any time in the past 12 m [facility], were you homeless or living in [...] Upcoming Encounters Date Type Department Care Team ([facility] Contact Info) Description 07/06/2025 10:40 AM EDT Office Visit Pav CC Head, Neck & Respiratory 800 [facility], [address]nd [place] [address] Nikolai Naranjo MD [address] [facility] [address] [facility] [address] [place] [address] documented as of this encounter Visit Diagnoses Not on filedocumented in this encounter Additional Health Concerns Assessment Noted Time A fall risk assessment has been complete d for the patient 04/06/2025 10:27 AM EDT A Body Mass Index follow-up plan has been documented for the patient 04/06/2025 12:11 PM EDT documented as of this encounter Care Teams Machine Shorthand Reporter Relationship Specialty Start Date End Date Casa Phillips MD [address] [place] [address] PCP - General 02/22/25 Forrest Nickerson APRN [address] [place] [address] 03/06/23 documented as of this encounter
--- OUTSIDE RECORDS SUMMARY | 2025-05-20 12:01 | XMS_ITS | Encounter Summary ---
Author Organization [facility] Address [address] [place] [address] Care Team Providers Care Bonbon Dipper Name Role Phone Forrest Nickerson ROUND UP RING HAND Unavailable [phone] Casa Phillips MD Primary Care Provider [phone] Encounter Details Date Type Department Care Team [...] Pav CC Head, Neck & Respiratory [address] [facility], [address]nd [place] [address] Nikolai Naranjo MD [address] [facility] Lor[address]ila [facility] [address] [place] [address] documented as of this encounter Visit Diagnoses Not on filedocumented in this encounter Additional Health Concerns Assessment Noted Time A fall risk assessment has been complete d for the patient 02/23/2025 8:48 AM EDT A Body Mass Index follow-up plan has been documented for the patient 04/04/2025 10:30 AM EDT documented as of this encounter Care Teams Bonbon Dipper Relationship Specialty Start Date End Date Casa Phillips MD [address] [place] [address] PCP - General 02/22/25 Forrest Nickerson APRN [address] [place] [address] 03/06/23 documented as of this encounter
--- OUTSIDE RECORDS SUMMARY | 2025-05-20 12:01 | XMS_ITS | Encounter Summary ---
Author Organization [facility] Address [address] [place] [address] Care Team Providers Care Framing Specialist Name Role Phone Forrest Nickerson GAUNTLET PAIRER Unavailable [phone] Casa Phillips MD Primary Care Provider [phone] Encounter Details Date Type Department Care Team [...] 800 [facility], 2nd [place] [address] Nikolai Naranjo MD [address] [facility] [address] Avila [facility] [address] [place] [address] documented as of this encounter Visit Diagnoses Not on filedocumented in this encounter Additional Health Concerns Assessment Noted Time A fall risk assessment has been complete d for the patient 02/23/2025 8:48 AM EDT A Body Mass Index follow-up plan has been documented for the patient 04/04/2025 10:30 AM EDT documented as of this encounter Care Teams Framing Specialist Relationship Specialty Start Date End Date Casa Phillips MD [address] [place] [address] PCP - General 02/22/25 Forrest Nickerson APRN [address] [place] [address] 03/06/23 documented as of this encounter
--- OUTSIDE RECORDS SUMMARY | 2025-05-20 12:02 | XMS_ITS | Encounter Summary ---
Author Organization [facility] Address [address] [place] [address] Care Team Providers Care Tinning Equipment Tender Name Role Phone Demetrio Nickersonann Theresa CORE BAKER Unavailable [phone] Casa Phillips MD Primary Care Provider [phone] Encounter Details Date Type Department Care Team (Late st Contact Info) Description 04/20/2025 Telephone Pav CC Head, Neck & Respiratory [address], 2nd [place] [address] Ирина Lopez MD [address] [facility] [address] [place] [address] Social History Tobacco Use Types [...] regarding pain medication not being sent to [facility] in [place]. I confirmed it was sent at 11:42am. documented in this encounter Plan of Treatment Upcoming Encounters Date Type Department Care Team (Late st Contact Info) Description 07/06/2025 10:40 AM EDT Office Visit Pav CC Head, Neck & Respiratory 800 [facility], 2nd [place] [address] Nikolai Naranjo MD [address] [facility] [address] [place] [address] documented as of this encounter Visit Diagnoses Not on filedocumented in this encounter Additional Health Concerns Assessment Noted Time A fall risk assessment has been complete d for the patient 04/20/2025 10:24 AM EDT A Body Mass Index follow-up plan has been documented for the patient 04/23/2025 4:10 PM EDT documented as of this encounter Care Teams Tinning Equipment Tender Relationship Specialty Start Date End Date Casa Phillips MD [address] [place] [address] PCP - General 02/22/25 Forrest Nickerson APRN [address] [place] [address] 03/06/23 documented as of this encounter
--- OUTSIDE RECORDS SUMMARY | 2025-05-20 12:02 | XMS_ITS | Encounter Summary ---
Author Organization [facility] Address [address] [place] [address] Care Team Providers Care Fuel Retrofitting Technician Name Role Phone Demetrio Nickersonann Theresa OFFICE MACHINE SERVICER Unavailable [phone] Casa Phillips MD Primary Care Provider [phone] Encounter Details Date Type Department Care Team (Late st Contact Info) Description 04/19/2025 Telephone Pav CC Head, Neck & Respiratory [address] [place] [address] Manny Lopez MD [address] [place] [address] Social History Tobacco Use Types Packs/Day Years [...] any time in the past 12 m [facility], were you homeless or living in a longterm (including now)? No 03/31/2025 Utilities Answer Date [...] - 04/19/2025 1:15 PM EDT Branden at [facility] [phone] called for lon said to call him back documented in this encounter Plan of Treatment Upcoming Encounters Date Type Department Care Team (Late st Contact Info) Description 07/06/2025 10:40 AM EDT Office Visit Pav CC Head, Neck & Respiratory 800 [facility], [address]nd [place] [address] Nikolai Naranjo MD [address] [facility] [address] [place] [address] documented as of this encounter Visit Diagnoses Not on filedocumented in this encounter Additional Health Concerns Assessment Noted Time A fall risk assessment has been complete d for the patient 04/06/2025 10:27 AM EDT A Body Mass Index follow-up plan has been documented for the patient 04/06/2025 12:11 PM EDT documented as of this encounter Care Teams Fuel Retrofitting Technician Relationship Specialty Start Date End Date Casa Phililps MD [address] [place] [address] PCP - General 02/22/25 Forrest Nickerson APRN [address] [place] [address] 03/06/23 documented as of this encounter
--- OUTSIDE RECORDS SUMMARY | 2025-05-20 12:02 | XMS_ITS | Encounter Summary ---
Author Organization [facility] Address [address] [place] [address] Care Team Providers Care Technical Business Systems Analyst Name Role Phone Demetrio Nickersonann Cardenas LOG WASHER Unavailable [phone] Casa Phillips MD Primary Care Provider [phone] Encounter Details Date Type Department Care Team (Late st Contact Info) Description 03/04/2025 Results Follow-Up Pav CC Head, Neck & Respiratory 800 [facility], 2nd [place] [address] Nikolai Naranjo MD 800 [facility] [address] [place] [address] Social History Tobacco Use Types [...] & Respiratory [address] [place] [address] Nikolai Naranjo MD [address] [place] [address] documented as of this encounter Visit Diagnoses Not on filedocumented in this encounter Additional Health Concerns Assessment Noted Time A fall risk assessment has been complete d for the patient 02/23/2025 8:48 AM EDT A Body Mass Index follow-up plan has been documented for the patient 02/25/2025 5:11 PM EDT documented as of this encounter Care Teams Technical Business Systems Analyst Relationship Specialty Start Date End Date Casa Phillips MD [address] [place] [address] PCP - General 02/22/25 Forrest Nickerson APRN [address] [place] [address] 03/06/23 documented as of this encounter
--- OUTSIDE RECORDS SUMMARY | 2025-05-20 12:02 | XMS_ITS | Encounter Summary ---
Author Organization [facility] Address [address] [place] [address] Care Team Providers Care Newborn Hearing Screener Name Role Phone Forrest Nickerson DRAW BENCH OPERATOR HELPER Unavailable [phone] Casa Phillips MD Primary Care Provider [phone] Encounter Details Date Type Department Care Team [...] Encounters Date Type Department Care Team ([facility] Contact Info) Description 07/06/2025 10:40 AM EDT Office Visit Pav CC Head, Neck & Respiratory 800 [facility], [address]nd [place] [address] Nikolai Naranjo MD [address] [facility] [address]ila [facility] [address] [place] [address] documented as of this encounter Visit Diagnoses Not on filedocumented in this encounter Additional Health Concerns Assessment Noted Time A fall risk assessment has been complete d for the patient 04/20/2025 10:24 AM EDT A Body Mass Index follow-up plan has been documented for the patient 04/23/2025 4:10 PM EDT documented as of this encounter Care Teams Newborn Hearing Screener Relationship Specialty Start Date End Date Casa Phillips MD [address] [place] [address] PCP - General 02/22/25 Forrest Nickerson APRN [address] [place] [address] 03/06/23 documented as of this encounter
[2025-05-20 12:22] LABS: Hematocrit 28.8 % (42.0-52.0); Hemoglobin 9.2 g/dL (14.1-18.0); Immature Granulocytes % 2.1 %; Mean Corpuscular HGB Conc 31.9 g/dL (31.8-35.4); Mean Corpuscular Hemoglobin 28.7 pg (27.0-31.2); Mean Corpuscular Volume 89.7 fl (80-94); Nucleated Red Blood Cells % 0 %; Platelet Count 547 K/mm3 (142-424); Red Blood Count 3.21 M/mm3 (4.60-6.20); Red Cell Distribution Width-SD 40.8 fL; White Blood Count 6.1 K/mm3 (4.8-10.8)
[2025-05-20 12:26] LABS: Albumin Level 4.1 g/dl (3.5-5.0); Chloride 101 mmol/L (98-107); Potassium 5.4 mmoL/L (3.5-5.1); Sodium 137 mmol/L (136-145)
[2025-05-20 12:29] LABS: Alanine Aminotransferase 25 U/L (12-78); Albumin/Globulin Ratio 1.1 (1.1-1.8); Alkaline Phosphatase 104 U/L (38-126); Anion Gap 16.4 mEq/L (5-15); Aspartate Amino Transferase 29 U/L (17-59); Bilirubin,Total 0.2 mg/dl (0.2-1.3); Blood Urea Nitrogen 18 mg/dl (9-20); Carbon Dioxide 25 mmol/L (22.0-30.0); Creatinine Clearance Estimated 35 mL/min (50-200); Creatinine,Serum 1.60 mg/dl (0.66-1.25); Estimated Glomerular Filt Rate 42 ml/min (>60); GFR (African American) 51 ML/MIN (>60); Globulin 3.8 g/dL (1.3-3.2); Total Protein,Serum 7.9 g/dl (6.3-8.2)
[2025-05-20 12:30] LABS: Calcium 9.5 mg/dl (8.4-10.2); Glucose 131 mg/dl (74-100)
[2025-05-20] MEDS: ONDANSETRON 4MG ODT 4 MG (13:44)
[2025-05-20] MEDS: ONDANSETRON 4MG ODT 12 MG (13:44)
[2025-05-20] MEDS: PROCHLORPERAZINE 10MG TABLET 10 MG PO (13:44)
[2025-05-20 14:15] VITALS: BP 147/82; PULSE 81; RESP 17; TEMP 36.4; O2SAT 100
[2025-05-20] MEDS: 0.9 % SODIUM CHLORIDE 500 ML 999 ML IV (14:15)
[2025-05-20 14:50] VITALS: BP 144/64; PULSE 79; RESP 16
== END 2025-05-20 14:53 | disposition home or self-care (01) ==
LOC: INF 11:57
PROVIDERS: PCP Family Medicine; Visit Provider Internal Medicine Medical Oncology
DX: C34.12 Malignant neoplasm of upper lobe, left bronchus or lung (principal)
CPT/HCPCS: 80053; 85025; 96360; J7040; Q0162; Q0164

== ENCOUNTER 2025-05-27 12:50 | Outpatient (CLI) | payer MEDICARE, SELFPAY ==
--- OUTSIDE RECORDS SUMMARY | 2025-03-29 09:43 | XMS_ITS | Encounter Summary ---
Author Organization [facility] Address [address] [place] [address] Care Team Providers Care Roofing Plant Supervisor Name Role Phone Forrest Nickerson ROUTING MACHINE OPERATOR Unavailable [phone] Casa Phillips MD Primary Care Provider [phone] Reason for Visit * Auth/Cert (Routine) Specialty Diagnoses / Procedures Referred By Contac t Referred To Contact Diagnoses Non-small cell cancer of left lung (CMS/HCC) Non-small cell cancer of left lung Procedures IA THORACOSCOPY SURG LOBECTOMY LEFT VATS LOBECTOMY Ирина Lopez MD [address] [address] Phone: tel: fax: [facility] OPERATING ROOM [address] [place] [address] Phone: tel: Referral ID Status Reason Start Date Expiration Date Visits Re quested Visits Authorized [id number] 1 1 Encounter Details Date Type Department Care Team (Latest Contact Info) Description 03/29/2025 9:43 AM EDT - 04/04/2025 12:18 PM EDT Hospital Encounter [facility] Inpatient [address] [place] [id number] Ирина Lopez MD [address] [address] Non-small cell cancer of left lung (CMS/HCC) [...] any time in the past 12 m [facility], were you homeless or living in a mcfp (including now)? No 03/31/2025 Utilities Answer Date Recorded In the past 12 months has th e electric, gas, oil, or water [employer] threatened to shut off services in your [...] Clinic discharge # - For urgent questions/concerns: [facility] hotline: , option 4 - ask for the thoracic surgeon remediation project engineer. documented in this encounter Medications at Time [...] from the original note were not included. [id number] Surgery for Lung Cancer Surgery can be [...] holidays. Last Reviewed Date: 2023 00:00:00 ?? [id number] [employer]. All rights reserved. This information is not intended as a substitute for professional medical care. Always follow your healthcare professional's instructions. * Neida Garland - Chester Cuevas RN - 04/04/2025 10:29 AM EDT Images from the original note were not included. [id number] Thoracotomy Thoracotomy is surgery used to diagnose [...] . Last Reviewed Date: 2024 00:00:00 ?? [id number] [employer]. All rights reserved. This information is not intended as a substitute for professional medical care. Always follow your healthcare professional's instructions. * Neida Garland - Chester Cuevas RN - 04/04/2025 10:29 AM EDT Images from the original note were not included. [address]70 Lung Cancer: Video-Assisted and Robotic-Assisted Thoracic Surgery [...] you will hurt less after surgery. ? [facility]. You can likely go home [...] surgery because the cuts are small. ? [facility]. You can likely go home [...] of surgery you need. Make sure the [facility] have experience in VATS or RATS. Not [...] future. Last Reviewed Date: 2023 00:00:00 ?? [id number] [employer]. All rights reserved. This information is not intended as a substitute for professional medical care. Always follow your healthcare professional's instructions. * Neida SandhuALEXIS - Chester Cuevas RN - 04/04/2025 10:24 AM EDT Images from the original note were not included. [id number] Tamsulosin Brand Name(s): Flomax??, Su?? (as a [...] and out of their sight and reach. [email or web address] Unneeded medications should be disposed of in [...] be awakened, immediately call emergency services at 891. Symptoms of overdose may include: ? dizziness [...] of all of the prescription and nonprescription (gabc-gfo-bkqmqab) medicines you are taking, as well as [...] or pharmacist about specific clinical use. The [employer] [employer] represents that the information provided hereunder was formulated with a reasonable standard of care, and in conformity with professional standards in the field. The [place] [employer] makes no representations or warranties, express or implied, including, but not limited to, any implied warranty of merchantability and/or fitness for a particular purpose, with respect to such information and specifically disclaims all such warranties. Users are advised that decisions regarding drug therapy are complex medical decisions requiring the independent, informed decision of an appropriate health child care group leader, and the information is provided for informational purposes only. The entire monograph for a drug should be reviewed for a thorough understanding of the drug's actions, uses and side effects. The [employer] [employer] does not endorse or recommend the use of any drug.The information is not a substitute for medical care. AHFS?? Patient Medication Information?. ?? Copyright, 2023. The [employer] [employer]??, [address], [address], [place], [place]. All Rights Reserved. Duplication for commercial use must be authorized by [facility]. Selected Revisions: October 28, 2017. AHFS?? Patient Medication Information?. ?? Copyright, 2024 * Chester Lyons RN - 04/04/2025 10:24 AM EDT Images from the original note were not included. [id number] Senna Brand Name(s): Black Aidanght??, Ex-Lax??, Baca's [...] and out of their sight and reach. [email or web address] Unneeded medications should be disposed of in [...] be awakened, immediately call emergency services at 201. What OTHER INFORMATION should I know? Ask your pharmacist any questions you have about senna. It is important for you to keep a written list of all of the prescription and nonprescription (ebmb-eon-xurwhbu) medicines you are taking, as well as [...] or pharmacist about specific clinical use. The [employer] [employer] represents that the information provided hereunder was formulated with a reasonable standard of care, and in conformity with professional standards in the field. The [employer] [employer] makes no representations or warranties, express or implied, including, but not limited to, any implied warranty of merchantability and/or fitness for a particular purpose, with respect to such information and specifically disclaims all such warranties. Users are advised that decisions regarding drug therapy are complex medical decisions requiring the independent, informed decision of an appropriate health child care group leader, and the information is provided for informational purposes only. The entire monograph for a drug should be reviewed for a thorough understanding of the drug's actions, uses and side effects. The [employer] [employer] does not endorse or recommend the use of any drug.The information is not a substitute for medical care. AHFS?? Patient Medication Information?. ?? Copyright, 2023. The [employer] [place] [employer]??, [address], [address], [place], [place]. All Rights Reserved. Duplication for commercial use must be authorized by [facility]. Selected Revisions: April 02, 2024. AHFS?? Patient Medication Information?. ?? Copyright, 2024 * Neida Garland - Chester Cuevas RN - 04/04/2025 10:24 AM EDT Images from the original note were not included. [id number] Polyethylene Glycol 3350 Brand Name(s): MiraLax?? PEG [...] be awakened, immediately call emergency services at 151. Symptoms of overdose may include: ? diarrhea ? thirst ? confusion ? seizure What OTHER INFORMATION should I know? Keep all appointments with your doctor. Do not let anyone else take your medication. Ask your pharmacist any questions you have about refilling your prescription. It is important for you to keep a written list of all of the prescription and nonprescription (oidk-yfq-kmbedno) medicines you are taking, as well as [...] or pharmacist about specific clinical use. The [employer] [employer] represents that the information provided hereunder was formulated with a reasonable standard of care, and in conformity with professional standards in the field. The [employer] [employer] makes no representations or warranties, express or implied, including, but not limited to, any implied warranty of merchantability and/or fitness for a particular purpose, with respect to such information and specifically disclaims all such warranties. Users are advised that decisions regarding drug therapy are complex medical decisions requiring the independent, informed decision of an appropriate health child care group leader, and the information is provided for informational purposes only. The entire monograph for a drug should be reviewed for a thorough understanding of the drug's actions, uses and side effects. The [employer] [employer] does not endorse or recommend the use of any drug.The information is not a substitute for medical care. AHFS?? Patient Medication Information?. ?? Copyright, 2023. The [employer] [place] [employer]??, [address], [address], [place], [place]. All Rights Reserved. Duplication for commercial use must be authorized by [facility]. Selected Revisions: December 27, 2015. AHFS?? Patient Medication Information?. ?? Copyright, 2024 * Kaykaynatasha Chester Little RN - 04/04/2025 10:24 AM EDT 1087 Oxycodone Oral Tablet, Immediate Release Brand Names: Oxaydo, Roxicodone What is this medicine? Oxycodone (pl-e-AVN-done) is an opioid pain reliever. It is used to treat moderate to severe pain. What should I tell my health care provider before I take this medicine? They need to know if you have any of these conditions: ? Stanley's disease ? Brain tumor or head injury [...] a special medication guide each time you fish bait picker this medicine. ? Overdosage: Taking too [...] should report to your doctor or health child care group leader as soon as possible: ? allergic [...] attention (report to your doctor or health child care group leader if they continue or are bothersome): ? constipation ? dry mouth ? itching ? nausea, vomiting ? upset stomach This list may not describe all possible side effects. Call your doctor for medical advice about side effects. You may report side effects to FDA at 2-550-QQC-1938. Where should I keep my medicine? This [...] location. To find a disposal location, visit [employer]/[place]. If you cannot take unused medicine to [...] from the original note were not included. [id number] Methocarbamol Brand Name(s): Robaxin??; also available generically [...] of all of the prescription and nonprescription (ukht-iez-rywylcy) medicines you are taking, as well as [...] or pharmacist about specific clinical use. The [employer] [employer] represents that the information provided hereunder was formulated with a reasonable standard of care, and in conformity with professional standards in the field. The [place] [employer] makes no representations or warranties, express or implied, including, but not limited to, any implied warranty of merchantability and/or fitness for a particular purpose, with respect to such information and specifically disclaims all such warranties. Users are advised that decisions regarding drug therapy are complex medical decisions requiring the independent, informed decision of an appropriate health child care group leader, and the information is provided for informational purposes only. The entire monograph for a drug should be reviewed for a thorough understanding of the drug's actions, uses and side effects. The [place] [employer] does not endorse or recommend the use of any drug.The information is not a substitute for medical care. AHFS?? Patient Medication Information?. ?? Copyright, 2023. The [employer] [employer]??, [address], [address], [place], [place]. All Rights Reserved. Duplication for commercial use must be authorized by [facility]. Selected Revisions: May 28, 2017. AHFS?? Patient Medication Information?. ?? Copyright, 2024 * Neida Garland - Chester Cuevas RN - 04/04/2025 10:23 AM EDT Images from the original note were not included. [id number] Acetaminophen Brand Name(s): Actamin??, Feverall??, Panadol??, Tempra Quicklets??, Tylenol??, Dayquil?? (as a combination product containing Acetaminophen, Dextromethorphan, Pseudoephedrine), NyQuil Cold/Flu Relief?? (as a combination product containing Acetaminophen, Dextromethorphan, Doxylamine), Percocet?? (as a combination product containing Acetaminophen, Oxycodone) APAP, J-ctskdk-ggnf-aminophenol, Paracetamol ?? This branded product is no [...] measuring cup or syringe provided by the project management engineer to measure each dose of the solution [...] of all of the prescription and nonprescription (efzi-mcr-gsvztyp) medicines you are taking, as well as [...] or pharmacist about specific clinical use. The [place] [employer] represents that the information provided hereunder was formulated with a reasonable standard of care, and in conformity with professional standards in the field. The [place] [employer] makes no representations or warranties, express or implied, including, but not limited to, any implied warranty of merchantability and/or fitness for a particular purpose, with respect to such information and specifically disclaims all such warranties. Users are advised that decisions regarding drug therapy are complex medical decisions requiring the independent, informed decision of an appropriate health child care group leader, and the information is provided for informational purposes only. The entire monograph for a drug should be reviewed for a thorough understanding of the drug's actions, uses and side effects. The [place] [employer] does not endorse or recommend the use of any drug.The information is not a substitute for medical care. AHFS?? Patient Medication Information?. ?? Copyright, 2023. The [employer] [employer]??, [address], [address], [place], [place]. All Rights Reserved. Duplication for commercial use must be authorized by [facility]. Selected Revisions: June 28, 2023. AHFS?? Patient Medication Information?. ?? Copyright, 2024 * Discharge Summary - Everett Marie DO - 04/04/2025 9:13 AM EDT Hospitalization Admit Date/Time: 03/29/2025 9:43 AM Admitting Attending: Ирина Lopez Discharge Date: 04/04/2025 Discharge Attending Physician: Ирина Lopez MD PCP name and Address: Casa Pihllips MD [address] / [place] [address] Referring provider name and address: No referring [...] Your Medications These medications were sent to [facility] [place], [place] - [address] [facility] [id number] acetaminophen 500 MG tablet methocarbamol 500 MG [...] Clinic discharge # - For urgent questions/concerns: [facility] hotline: , option 4 - ask for the thoracic surgeon remediation project engineer. Outpatient Follow-Up Future Appointments Date Time Provider Department Center 04/06/2025 10:40 AM [facility] Test Results Pending At Discharge [...] Mobility Exam: Supine to Sit Level of [place]: Stand-by assist Physical/Nonphysical Assist: Set-up required, HOB elevated Assistive Device: Bed rails Transfers Transfer Exam: Sit to stand Level of [place]: Stand-by assist Physical/Nonphysical Assist: Verbal Cues, Nonverbal cues (demo/gestures), Minimal cues Assistive Device: Rollator Transfer Exam: Stand to Sit Level of [place]: Stand-by assist Physical/Nonphysical Assist: Verbal Cues, Nonverbal [...] to areas of treatment space. Standardized Assessments [facility] 6-Clicks Mobility Assessment Difficulty patient has turning [...] 3-5 steps with a railing?: A little [facility] 6-Clicks Mobility Assessment Total : 21 Assessment [...] for assistance with DME. Referrals sent to [facility] for Rollator to be delivered to bedside today. * Progress Notes - Patricia Torres - 04/03/2025 11:49 AM EDT Occupational Therapy Treatment Patient Name: Cole Feliz Jr. Today's Date: 04/03/2025 OT Discharge Recommendations: Home with 24 hour assistance Equipment Recommended: Rollator Subjective Pt consent to tx Participants in Care Family/Caregiver Present: Yes Family/Caregiver: Adult Daughter Insole Rasper: Not Applicable Presentation Oxygen Therapy: None (Room [...] Mobility Exam: Supine to Sit Level of [place]: Stand-by assist Physical/Nonphysical Assist: Set-up required, HOB elevated Transfers Transfer Exam: Sit to stand Level of [place]: Stand-by assist Physical/Nonphysical Assist: Verbal Cues, Nonverbal cues (demo/gestures), Minimal cues Assistive Device: Rollator Transfer Exam: Stand to Sit Level of [place]: Stand-by assist Physical/Nonphysical Assist: Verbal Cues, Nonverbal [...] reaches 6. Pt verbalizes understanding. Standardized Assessments [facility] 6-Click Daily Activities Help from Other: Don/Doff Regular Lower Body Clothings: Little Help From Other: Bathing: Little Help From Other: Toileting: Little Help From Other: Don/Doff Upper Body Clothings: Little Help From Other: Grooming: Little Help From Other: Eating Meals: None [facility] 6 Click - Daily Activities Score: [...] from the original note were not included. [facility] Department of Surgery Section of Thoracic Surgery [...] disease, without long-term current use of insulin ([facility]) Microalbuminuria Tobacco use disorder Second hand smoke [...] disease, without long-term current use of insulin ([facility]) Anemia Electrolyte abnormality Plan: - Remove chest [...] Mobility Bed Mobility Exam: Scooting/Bridging Level of [place]: Minimum assist (75% patient's effort) Physical/Nonphysical Assist: Verbal Cues, Nonverbal cues (demo/gestures), Minimal cues Bed Mobility Exam: Supine to Sit Level of [place]: Minimum assist (75% patient's effort) Physical/Nonphysical Assist: Verbal Cues, Nonverbal cues (demo/gestures), HOB elevated Bed Mobility Exam: Sit to Supine Level of [place]: Minimum assist (75% patient's effort) Physical/Nonphysical Assist: Verbal Cues, Minimal cues Transfers Transfer Exam: Sit to stand Level of [place]: Minimum assist (75% patient's effort) Physical/Nonphysical Assist: Verbal Cues, Nonverbal cues (demo/gestures), Minimal cues Assistive Device: Rollator Transfer Exam: Stand to Sit Level of [place]: Minimum assist (75% patient's effort) Physical/Nonphysical Assist: [...] Level of Mobility Ambulatory- household only Mobility [place] Independent gait without device History of Falls [...] Ambulating in-room distances since last PT treatment. Insole Rasper (if applicable) OBJECTIVE & INTERVENTIONS PAIN Pt was without complaints of pain throughout the PT treatment. DELIRIUM SCREENING Curtis Agitation Sedation Scale (RASS): Alert and calm Feature 3: Altered Level of Consciousness: Negative THERAPEUTIC ACTIVITY Treatment Minutes 25 BED MOBILITY Level of [place] Physical/Non- physical Assist Adaptive Equipment Utilized Scooting/ [...] with supine <> sit TRANSFERS Level of [place] Physical/Non- physical Assist Adaptive Equipment Utilized Sit to Stand Minimum assist (75% patient's effort) Verbal Cues, Nonverbal cues (demo/gestures), Minimal cues Rollator Stand to sit Minimum assist (75% patient's effort) Verbal Cues, Nonverbal cues (demo/gestures), Minimal cues Rollator Interventions PT cued for proper hand placement and forward trunk lean prior to completing STS transfers BALANCE Postural Appearance Posture: Stooped posture Level of [place] Balance Support Interventions Static Sit Standby assist [...] Left upper extremity support AMBULATION Level of [place] Distance Adaptive Equipment Utilized Ambulation Contact guard [...] falling while progressing pt's distances Standardized Assessments [facility] 6-Clicks Mobility Assessment Difficulty patient has turning [...] climbing 3-5 steps with a railing?: Unable [facility] 6-Clicks Mobility Assessment Total : 16 ASSESSMENT [...] from the original note were not included. [facility] Department of Surgery Section of Thoracic Surgery [...] from the original note were not included. [facility] Department of Surgery Section of Thoracic Surgery [...] Cole Feliz Jr. 79 y.o. male CSN: [id number] Admission: 03/29/2025 9:43 AM Primary Problem: Non-small cell cancer of left lung (CMS/HCC) Exercise Rider reviewed chart and spoke with the patient at bedside to complete this Initial Case Management Assessment. PCP: Casa Phillips MD Emergency Contact: Extended Emergency Contact Information Primary Emergency Contact: Elliot Feliz Relation: Son Insole Rasper needed? No Secondary Emergency Contact: Nora Feliz Relation: Daughter Insole Rasper needed? No Insurance: Primary Visit Coverage Payer Plan Sponsor Code Group Number Group Name [facility] MEDICARE [facility] mcTEL ADVANTAGE [id number] Primary Visit Coverage Subscriber Subscriber ID Subscriber Name Subscriber SSN Subscriber Address [id number] [facility] [id number] [address] [place] [address] Patient information: Primary Caregiver: Self Support System: Immediate family Daily Living Activities: Functional Status: Independent Living Arrangements: Children Type of Residence: Private residence, Single Level [address] [address] Current DME: Equipment Currently Used at Home: [...] DME Provider: n/a Living Will/Advance Directive/Power of Barrel Driller /Guardian: Have you reviewed your Advance Directive [...] HH/HD/O2. PCP is Casa Phillips. Patient has [employer] Medicare insurance and uses [email or web address]. Family will assist and transport at [...] from the original note were not included. [facility] Department of Surgery Section of Thoracic Surgery [...] disease, without long-term current use of insulin ([facility]) Microalbuminuria Tobacco use disorder Second hand smoke [...] disease, without long-term current use of insulin ([facility]) Anemia Electrolyte abnormality Plan: [ ] [...] Level of Mobility: Ambulatory- household only Mobility [place]: Independent gait without device History of Falls: [...] Mobility Bed Mobility Exam: Scooting/Bridging Level of [place]: Maximum assist (25% patient's effort) (to scoot to EOB while seated) Physical/Nonphysical Assist: Verbal Cues, Nonverbal cues (demo/gestures) Bed Mobility Exam: Supine to Sit Level of [place]: Maximum assist (25% patient's effort) Physical/Nonphysical Assist: Verbal Cues, Nonverbal cues (demo/gestures), Additional assist utilized for safety, HOB elevated Transfers Transfer Exam: Sit to stand Level of [place]: Moderate assist (50% patient's effort) Physical/Nonphysical Assist: Verbal Cues, Nonverbal cues (demo/gestures), Additional assist utilized for safety Transfer Exam: Stand to Sit Level of [place]: Moderate assist (50% patient's effort) Physical/Nonphysical Assist: [...] climbing 3-5 steps with a railing?: Unable [facility] 6-Clicks Mobility Assessment Total : 11 Assessment [...] Level of Mobility: Ambulatory- household only Mobility [place]: Independent gait without device History of Falls: [...] Mobility Bed Mobility Exam: Scooting/Bridging Level of [place]: Maximum assist (25% patient's effort) (to scoot to EOB while seated) Physical/Nonphysical Assist: Verbal Cues, Nonverbal cues (demo/gestures) Bed Mobility Exam: Supine to Sit Level of [place]: Maximum assist (25% patient's effort) Physical/Nonphysical Assist: Verbal Cues, Nonverbal cues (demo/gestures), Additional assist utilized for safety, HOB elevated Transfers Transfer Exam: Sit to stand Level of [place]: Moderate assist (50% patient's effort) Physical/Nonphysical Assist: Verbal Cues, Nonverbal cues (demo/gestures), Additional assist utilized for safety Transfer Exam: Stand to Sit Level of [place]: Moderate assist (50% patient's effort) Physical/Nonphysical Assist: [...] continued education to improve carryover. Standardized Assessments [facility] 6-Click Daily Activities Help from Other: Don/Doff Regular Lower Body Clothings: A lot Help From Other: Bathing: A lot Help From Other: Toileting: A lot Help From Other: Don/Doff Upper Body Clothings: Little Help From Other: Grooming: Little Help From Other: Eating Meals: None [facility] 6 Click - Daily Activities Score: [...] from the original note were not included. [facility] Department of Surgery Section of Thoracic Surgery [...] PM EDT Operative Note Date: 03/29/25 Location: [place] Name: Cole Feliz , : 1945, Diagnoses: Pre-op Diagnosis Non-small cell cancer of left lung (CMS/HCC) Post-op Diagnosis Non-small cell cancer of left lung (CMS/HCC) Procedure(s): Bronchoscopy, left VATS converted to thoracotomy, left upper lobectomy, mediastinal lymph node dissection, intercostal nerve blocks Attending Surgeon(s): * Ирина Lopez - Primary Dynamometer Tester Engine(s): * Carl Hamlin MD - Resident - [...] spaces under direct visualization. A single 24 Scottish chest tube was placed through the camera [...] responses Results Review {Vanishing Link Review Results :[id number] I have reviewed the latest lab and [...] card, photo ID, along with power of latcher, guardianship or advanced directives if applicable Do [...] [facility] [address] [place] [address] Nikolai Naranjo MD [address] [facility] Lorin Avila [facility] [address] [place] [address] documented as of this encounter Procedures Procedure [...] Non-small cell cancer of left lung (CMS/HCC) [place] THORACOSCOPY SURG LOBECTOMY 03/29/2025 1:24 PM EDT [...] Comment 04/04/2025 8:36 AM EDT HEALTHCARE LAB Machine Turner ID Sandy Kramer 04/04/2025 8:36 AM EDT [facility] Device ID [id number] 04/04/2025 8:36 AM EDT HEALTHCARE LAB Specimen Type POC Capillary 04/04/2025 8:36 AM EDT [facility] Blood Capillary blood specimen / Unknown 04/04/2025 8:34 AM EDT 04/04/2025 8:36 AM EDT Ирина Lopez MD LAB POINT OF CARE TE ST DOCKED DEVICE UNSOLICITED RESULTS Final Result [facility] [address] [place], [place] [id number] * XR Chest 1 View (04/04/2025 5:20 [...] MD on 04/04/2025 10:20 AM Scarlet Gamboa ROUTING MACHINE OPERATOR IMG XR PROCEDURES Final Resul t * (ABNORMAL) Renal Function Panel, Plasma (04/04/2025 2:19 AM EDT) Glucose, Plasma 166(H) 74 - 99 mg/dL 04/04/2025 2:53 AM EDT [facility] BUN, Plasma 18 8 - 23 mg/dL 04/04/2025 2:53 AM EDT [facility] Creatinine, Plasma 1.31(H) 0.70 - 1.20 mg/dL 04/04/2025 2:53 AM EDT [facility] BUN/Creatinine Ratio 14 04/04/2025 2:53 AM EDT [facility] Sodium, Plasma 136 136 - 145 mmol/L 04/04/2025 2:53 AM EDT [facility] Potassium, Plasma 4.3 3.6 - 4.9 mmol/L 04/04/2025 2:53 AM EDT [facility] Chloride, Plasma 103 97 - 107 mmol/L 04/04/2025 2:53 AM EDT [facility] CO2, Plasma 22 22 - 29 mmol/L 04/04/2025 2:53 AM EDT [facility] Anion Gap 11 6 - 16 mmol/L 04/04/2025 2:53 AM EDT [facility] Total Calcium, Plasma 8.2(L) 8.9 - 10.2 mg/dL 04/04/2025 2:53 AM EDT [facility] Phosphorus, Plasma 3.1 2.5 - 4.5 mg/dL 04/04/2025 2:53 AM EDT [facility] Albumin, Plasma 3.0(L) 3.5 - 5.2 g/dL 04/04/2025 2:53 AM EDT [facility] eGFRcr 55.7 mL/min/1.7 3m*2 04/04/2025 2:53 AM EDT [facility] Comment:Reported eGFRcr in m L/min/1.73m2 is based the CKD-EPI 2020 equation that does not use a race coefficient. Blood Venous blood specimen / Unknown Venipuncture / Unknown 04/04/2025 2:19 AM EDT 04/04/2025 2:24 AM EDT Ирина Lopez MD LAB BLOOD ORDERABLES Final R esult Performing Organization Address City/[facility]/ZIP Co de Phone Number [facility] [address] [place] [address] * (ABNORMAL) Magnesium, Plasma (04/04/2025 2:19 AM EDT) Magnesium, Plasma 1.8(L) 1.9 - 2.4 mg/dL 04/04/2025 2:53 AM EDT [facility] Blood Venous blood specimen / Unknown Venipuncture / Unknown 04/04/2025 2:19 AM EDT 04/04/2025 2:24 AM EDT Ирина Lopez MD LAB BLOOD ORDERABLES Final R esult Performing Organization Address City/[facility]/ZIP Co de Phone Number [facility] [address] [place] [address] * (ABNORMAL) CBC W/O Differential (04/04/2025 2:19 AM EDT) WBC Count 5.44 3.70 - 10.30 10*3/uL LAB HEMATOLOGY METHOD 04/04/2025 2:33 AM EDT [facility] RBC Count 3.77(L) 4.60 - 6.10 10*6/uL LAB HEMATOLOGY METHOD 04/04/2025 2:33 AM EDT [facility] HGB 10.7(L) 13.7 - 17.5 g/dL LAB HEMATOLOGY METHOD 04/04/2025 2:33 AM EDT [facility] HCT 32.4(L) 40.0 - 51.0 % LAB HEMATOLOGY METHOD 04/04/2025 2:33 AM EDT [facility] Platelet Count 220 155 - 369 10*3/uL LAB HEMATOLOGY METHOD 04/04/2025 2:33 AM EDT [facility] MCV 86 79 - 98 fL LAB HEMATOLOGY METHOD 04/04/2025 2:33 AM EDT [facility] MCH 28.4 26.0 - 32.0 pg LAB HEMATOLOGY METHOD 04/04/2025 2:33 AM EDT [facility] MCHC 33.0 30.7 - 35.5 g/dL LAB HEMATOLOGY METHOD 04/04/2025 2:33 AM EDT [facility] RDW 14.7(H) 11.5 - 14.5 % LAB HEMATOLOGY METHOD 04/04/2025 2:33 AM EDT [facility] MPV 9.1 8.8 - 12.5 fL LAB HEMATOLOGY METHOD 04/04/2025 2:33 AM EDT [facility] nRBC 0.4(H) <=0.0 per 100 WBCs LAB HEMATOLOGY METHOD 04/04/2025 2:33 AM EDT [facility] Blood Venous blood specimen / Unknown Venipuncture / Unknown 04/04/2025 2:19 AM EDT 04/04/2025 2:24 AM EDT us Ирина Lopez MD LAB BLOOD ORDERABLES Final R esult [facility] [address] [place] [address] * (ABNORMAL) POCT glucose meter (04/03/2025 8:25 PM EDT) [facility] POCT Glucose 194(H) 74 - 99 [...] Comment 04/03/2025 8:28 PM EDT HEALTHCARE LAB Machine Turner ID Obdulio Navarro 04/03/2025 8:28 PM EDT HEALTHCARE LAB Device ID [id number] 04/03/2025 8:28 PM EDT HEALTHCARE LAB Specimen Type POC Capillary 04/03/2025 8:28 PM EDT [facility]ALTHCARE LAB Blood Capillary blood specimen / Unknown 04/03/2025 8:25 PM EDT 04/03/2025 8:28 PM EDT Ирина Lopez MD LAB POINT OF CARE TE ST DOCKED DEVICE UNSOLICITED RESULTS Final Result Performing Organization Address [facility] Co de Phone Number [facility] [address] [place] [address] * (ABNORMAL) POCT glucose meter (04/03/2025 5:27 PM EDT) [facility] POCT Glucose 138(H) 74 - 99 [...] 04/03/2025 5:29 PM EDT [facility] Machine Turner ID Anayeli Castro 025 5:29 PM EDT [facility] Device ID [id number] 04/03/2025 5:29 PM EDT [facility] Specimen Type POC Capillary 04/03/2025 5:29 PM EDT [facility] Blood Capillary blood specimen / Unknown 04/03/2025 5:27 PM EDT 04/03/2025 5:29 PM EDT us Ирина Lopez MD LAB POINT OF CARE TE ST DOCKED DEVICE UNSOLICITED RESULTS Final Result [facility] [address] [place] [id number] * XR Chest 1 View (04/03/2025 1:09 [...] for testing. Comment 04/03/2025 12:17 PM EDT [facility] Machine Turner ID Anayeli Castro 025 12:17 PM EDT [facility] Device ID [id number] 04/03/2025 12:17 PM EDT [facility] Specimen Type POC Capillary 04/03/2025 12:17 PM EDT [facility] Blood Capillary blood specimen / Unknown 04/03/2025 12:15 PM EDT 04/03/2025 12:17 PM EDT Ирина Lopez MD LAB POINT OF CARE TE ST DOCKED DEVICE UNSOLICITED RESULTS Final Result Performing Organization Address City/State/[facility] Co de Phone Number [facility] [address] [place] [address] * (ABNORMAL) POCT glucose meter (04/03/2025 8:46 [...] 04/03/2025 8:48 AM EDT [facility] Machine Turner ID Anayeli Castro 025 8:48 AM EDT HEALTHCARE LAB Device ID [id number] 04/03/2025 8:48 AM EDT [facility]ALTHCARE LAB Specimen Type POC Capillary 04/03/2025 8:48 AM EDT [facility] Blood Capillary blood specimen / Unknown 04/03/2025 8:46 AM EDT 04/03/2025 8:48 AM EDT us Ирина Lopez MD LAB POINT OF CARE TE ST DOCKED DEVICE UNSOLICITED RESULTS Final Result [facility] [address] [place] [address] * XR Chest 1 View (04/03/2025 5:53 [...] on 04/03/2025 9:52 AM us Scarlet Gamboa ROUTING MACHINE OPERATOR IMG XR PROCEDURES Final Resul t * (ABNORMAL) Renal Function Panel, Plasma (04/03/2025 3:45 AM EDT) Glucose, Plasma 131(H) 74 - 99 mg/dL 04/03/2025 4:24 AM EDT [facility] BUN, Plasma 16 8 - 23 mg/dL 04/03/2025 4:24 AM EDT [facility] Creatinine, Plasma 1.34(H) 0.70 - 1.20 mg/dL 04/03/2025 4:24 AM EDT [facility] BUN/Creatinine Ratio 12 04/03/2025 4:24 AM EDT [facility] Sodium, Plasma 135(L) 136 - 145 mmol/L 04/03/2025 4:24 AM EDT [facility] Potassium, Plasma 4.9 3.6 - 4.9 mmol/L 04/03/2025 4:24 AM EDT [facility] Chloride, Plasma 103 97 - 107 mmol/L 04/03/2025 4:24 AM EDT [facility] CO2, Plasma 21(L) 22 - 29 mmol/L 04/03/2025 4:24 AM EDT [facility] Anion Gap 11 6 - 16 mmol/L 04/03/2025 4:24 AM EDT [facility] Total Calcium, Plasma 7.7(L) 8.9 - 10.2 mg/dL 04/03/2025 4:24 AM EDT [facility] Phosphorus, Plasma 2.2(L) 2.5 - 4.5 mg/dL 04/03/2025 4:24 AM EDT [facility] Albumin, Plasma 2.8(L) 3.5 - 5.2 g/dL 04/03/2025 4:24 AM EDT [facility] eGFRcr 54.2 mL/min/1.7 3m*2 04/03/2025 4:24 AM EDT [facility] Comment:Reported eGFRcr in m L/min/1.73m2 is based the CKD-EPI 2020 equation that does not use a race coefficient. Blood Venous blood specimen / Unknown Venipuncture / Unknown 04/03/2025 3:45 AM EDT 04/03/2025 3:54 AM EDT Ирина Lopez MD LAB BLOOD ORDERABLES Final R esult Performing Organization Address City/[facility]/ZIP Co de Phone Number [facility] [address] [place] [address] * Magnesium, Plasma (04/03/2025 3:45 AM EDT) [facility] Magnesium, Plasma 2.0 1.9 - 2.4 mg/dL 04/03/2025 4:24 AM EDT [facility] Blood Venous blood specimen / Unknown Venipuncture / Unknown 04/03/2025 3:45 AM EDT 04/03/2025 3:54 AM EDT Ирина Lopez MD LAB BLOOD ORDERABLES Final R esult Performing Organization Address City/[facility] Co de Phone Number [facility] [address] [place] [address] * (ABNORMAL) CBC W/O Differential (04/03/2025 3:45 AM EDT) WBC Count 6.54 3.70 - 10.30 10*3/uL LAB HEMATOLOGY METHOD 04/03/2025 4:09 AM EDT [facility] RBC Count 3.42(L) 4.60 - 6.10 10*6/uL LAB HEMATOLOGY METHOD 04/03/2025 4:09 AM EDT [facility] HGB 9.8(L) 13.7 - 17.5 g/dL LAB HEMATOLOGY METHOD 04/03/2025 4:09 AM EDT [facility] HCT 29.2(L) 40.0 - 51.0 % LAB HEMATOLOGY METHOD 04/03/2025 4:09 AM EDT [facility] Platelet Count 209 155 - 369 10*3/uL LAB HEMATOLOGY METHOD 04/03/2025 4:09 AM EDT [facility] MCV 85 79 - 98 fL LAB HEMATOLOGY METHOD 04/03/2025 4:09 AM EDT [facility] MCH 28.7 26.0 - 32.0 pg LAB HEMATOLOGY METHOD 04/03/2025 4:09 AM EDT [facility] MCHC 33.6 30.7 - 35.5 g/dL LAB HEMATOLOGY METHOD 04/03/2025 4:09 AM EDT [facility] RDW 15.0(H) 11.5 - 14.5 % LAB HEMATOLOGY METHOD 04/03/2025 4:09 AM EDT [facility] MPV 9.4 8.8 - 12.5 fL LAB HEMATOLOGY METHOD 04/03/2025 4:09 AM EDT [facility] nRBC 0.0 <=0.0 per 100 WBCs LAB HEMATOLOGY METHOD 04/03/2025 4:09 AM EDT [facility] Blood Venous blood specimen / Unknown Venipuncture / Unknown 04/03/2025 3:45 AM EDT 04/03/2025 3:54 AM EDT us Ирина Lopez MD LAB BLOOD ORDERABLES Final R esult [facility] [address] [place] [address] * (ABNORMAL) POCT glucose meter (04/02/2025 8:16 PM EDT) [facility] POCT Glucose 154(H) 74 - 99 [...] 04/02/2025 8:20 PM EDT [facility] Machine Turner ID Jil Ruiz 8:20 PM EDT HEALTHCARE LAB Device ID [id number] 04/02/2025 8:20 PM EDT HEALTHCARE LAB Specimen Type POC Capillary 04/02/2025 8:20 PM EDT HEALTHCARE LAB Blood Capillary blood specimen / Unknown 04/02/2025 8:16 PM EDT 04/02/2025 8:20 PM EDT Ирина Lopez MD LAB POINT OF CARE TE ST DOCKED DEVICE UNSOLICITED RESULTS Final Result Performing Organization Address City/[facility] Co de Phone Number HEALTHCARE LAB [address] [place] [address] * (ABNORMAL) POCT glucose meter (04/02/2025 5:20 PM EDT) [facility] POCT Glucose 122(H) 74 - 99 [...] Comment 04/02/2025 5:22 PM EDT HEALTHCARE LAB Machine Turner ID Kenn Cabrera 04/02/2025 5:22 PM EDT HEALTHCARE LAB Device ID [id number] 04/02/2025 5:22 PM EDT HEALTHCARE LAB Specimen Type POC Capillary 04/02/2025 5:22 PM EDT HEALTHCARE LAB Blood Capillary blood specimen / Unknown 04/02/2025 5:20 PM EDT 04/02/2025 5:22 PM EDT us Ирина Lopez MD LAB POINT OF CARE TE ST DOCKED DEVICE UNSOLICITED RESULTS Final Result Performing Organization Address City/[facility] Co de Phone Number HEALTHCARE LAB [address] [place] [address] * (ABNORMAL) CBC W/O Differential (04/02/2025 3:02 PM EDT) [facility] WBC Count 6.02 3.70 - 10.30 10*3/uL LAB HEMATOLOGY METHOD 04/02/2025 3:27 PM EDT [facility] RBC Count 3.09(L) 4.60 - 6.10 10*6/uL LAB HEMATOLOGY METHOD 04/02/2025 3:27 PM EDT [facility] HGB 8.9(L) 13.7 - 17.5 g/dL LAB HEMATOLOGY METHOD 04/02/2025 3:27 PM EDT [facility] HCT 26.9(L) 40.0 - 51.0 % LAB HEMATOLOGY METHOD 04/02/2025 3:27 PM EDT [facility] Platelet Count 129(L) 155 - 369 10*3/uL LAB HEMATOLOGY METHOD 04/02/2025 3:27 PM EDT [facility] MCV 87 79 - 98 fL LAB HEMATOLOGY METHOD 04/02/2025 3:27 PM EDT [facility] MCH 28.8 26.0 - 32.0 pg LAB HEMATOLOGY METHOD 04/02/2025 3:27 PM EDT [facility] MCHC 33.1 30.7 - 35.5 g/dL LAB HEMATOLOGY METHOD 04/02/2025 3:27 PM EDT [facility] RDW 14.4 11.5 - 14.5 % LAB HEMATOLOGY METHOD 04/02/2025 3:27 PM EDT [facility] MPV 9.9 8.8 - 12.5 fL LAB HEMATOLOGY METHOD 04/02/2025 3:27 PM EDT [facility] nRBC 0.0 <=0.0 per 100 WBCs LAB HEMATOLOGY METHOD 04/02/2025 3:27 PM EDT [facility] Blood Venous blood specimen / Unknown Venipuncture / Unknown 04/02/2025 3:02 PM EDT 04/02/2025 3:20 PM EDT us Scarlet Gamboa APRN LAB BLOOD ORDERABLES Final Re sult [facility] [address] [place] [address] * Transfuse RBC (04/02/2025 2:53 PM EDT) [...] Comment 04/02/2025 12:30 PM EDT HEALTHCARE LAB Machine Turner ID Kenn Cabrera 04/02/2025 12:30 PM EDT HEALTHCARE LAB Device ID [id number] 04/02/2025 12:30 PM EDT HEALTHCARE LAB Specimen Type POC Capillary 04/02/2025 12:30 PM EDT HEALTHCARE LAB Blood Capillary blood specimen / Unknown 04/02/2025 12:28 PM EDT 04/02/2025 12:30 PM EDT Ирина Lopez MD LAB POINT OF CARE TE ST DOCKED DEVICE UNSOLICITED RESULTS Final Result Performing Organization Address City/State/[facility] Phone Number HEALTHCARE LAB [address] [place] [address] * Transfuse RBC (04/02/2025 12:16 PM EDT) [...] glucose meter (04/02/2025 8:31 AM EDT) Pathologist [facility] POCT Glucose 127(H) 74 - 99 mg/dL [...] Comment 04/02/2025 8:33 AM EDT HEALTHCARE LAB Machine Turner ID Martha Sena 04/02/2025 8:33 AM EDT HEALTHCARE LAB Device ID [id number] 04/02/2025 8:33 AM EDT HEALTHCARE LAB Specimen Type POC Capillary 04/02/2025 8:33 AM EDT HEALTHCARE LAB Blood Capillary blood specimen / Unknown 04/02/2025 8:31 AM EDT 04/02/2025 8:33 AM EDT us Ирина Lopez MD LAB POINT OF CARE TE ST DOCKED DEVICE UNSOLICITED RESULTS Final Result [facility] [address] [place] [address] * Prepare Leukocyte Reduced RBC: 2 Units (04/02/2025 7:58 AM EDT) Product Code E5756T15 BLOO D BANK Dispense Status Transfused [facility] Blood Expiration Date [id number] [facility] Unit Number [id number] [facility] B LOOD BANK Product Blood Type 6200 [facility] BLOOD BANK Blood Type A+ [facility] BLOOD BANK Crossmatch Compatible [facility] BLOOD B[facility] Product Code [id number] CH BLOO D BANK Dispense Status Transfused [facility] BLOOD BANK Blood Expiration Date [id number] [facility]LOOD [facility] Unit Number [id number] CH B LOOD BANK Product Blood Type 6200 [facility] BLOOD BANK Blood Type A+ [facility] BLOOD BANK Crossmatch Compatible [facility] BLOOD BANK Other us Scarlet Gamboa APRN BLOOD BANK PRODUCT ORDERABLES Final Result Performing Organization Address [facility] de Phone Number BLOOD BANK [address] [place] [address], [place] * Type and Screen (04/02/2025 6:36 [...] ORDERABL ES Final Result Performing Organization Address [facility] de Phone Number BLOOD BANK [address] [place] [address], [place] * XR Chest 1 View (04/02/2025 [...] - 99 mg/dL 04/02/2025 5:51 AM EDT [facility] BUN, Plasma 16 8 - 23 mg/dL 04/02/2025 5:51 AM EDT [facility] Creatinine, Plasma 1.47(H) 0.70 - 1.20 mg/dL 04/02/2025 5:51 AM EDT [facility] BUN/Creatinine Ratio 11 04/02/2025 5:51 AM EDT [facility] Sodium, Plasma 137 136 - 145 mmol/L 04/02/2025 5:51 AM EDT [facility] Potassium, Plasma 4.3 3.6 - 4.9 mmol/L 04/02/2025 5:51 AM EDT [facility] Chloride, Plasma 104 97 - 107 mmol/L 04/02/2025 5:51 AM EDT [facility] CO2, Plasma 24 22 - 29 mmol/L 04/02/2025 5:51 AM EDT [facility] Anion Gap 9 6 - 16 mmol/L 04/02/2025 5:51 AM EDT [facility] Total Calcium, Plasma 7.8(L) 8.9 - 10.2 mg/dL 04/02/2025 5:51 AM EDT [facility] Phosphorus, Plasma 2.6 2.5 - 4.5 mg/dL 04/02/2025 5:51 AM EDT [facility] Albumin, Plasma 2.8(L) 3.5 - 5.2 g/dL 04/02/2025 5:51 AM EDT [facility] eGFRcr 48.5 mL/min/1.7 3m*2 04/02/2025 5:51 AM EDT [facility] Comment:Reported eGFRcr in m L/min/1.73m2 is based the CKD-EPI 2020 equation that does not use a race coefficient. Blood Venous blood specimen / Unknown Venipuncture / Unknown 04/02/2025 4:32 AM EDT 04/02/2025 5:20 AM EDT us Ирина Lopez MD LAB BLOOD ORDERABLES Final R esult [facility] [address] [place] [address] * Magnesium, Plasma (04/02/2025 4:32 AM EDT) Magnesium, Plasma 1.9 1.9 - 2.4 mg/dL 04/02/2025 5:51 AM EDT [facility] Blood Venous blood specimen / Unknown Venipuncture / Unknown 04/02/2025 4:32 AM EDT 04/02/2025 5:20 AM EDT us Ирина Lopez MD LAB BLOOD ORDERABLES Final R esult [facility] [address] [place] [address] * (ABNORMAL) CBC W/O Differential (04/02/2025 4:32 AM EDT) WBC Count 6.22 3.70 - 10.30 10*3/uL LAB HEMATOLOGY METHOD 04/02/2025 5:31 AM EDT [facility] RBC Count 2.14(L) 4.60 - 6.10 10*6/uL LAB HEMATOLOGY METHOD 04/02/2025 5:31 AM EDT [facility] HGB 6.4(LL) 13.7 - 17.5 g/dL LAB HEMATOLOGY METHOD 04/02/2025 5:31 AM EDT [facility] HCT 19.0(LL) 40.0 - 51.0 % LAB HEMATOLOGY METHOD 04/02/2025 5:31 AM EDT [facility] Platelet Count 180 155 - 369 10*3/uL LAB HEMATOLOGY METHOD 04/02/2025 5:31 AM EDT [facility] MCV 89 79 - 98 fL LAB HEMATOLOGY METHOD 04/02/2025 5:31 AM EDT [facility] MCH 29.9 26.0 - 32.0 pg LAB HEMATOLOGY METHOD 04/02/2025 5:31 AM EDT [facility] MCHC 33.7 30.7 - 35.5 g/dL LAB HEMATOLOGY METHOD 04/02/2025 5:31 AM EDT [facility] RDW 14.0 11.5 - 14.5 % LAB HEMATOLOGY METHOD 04/02/2025 5:31 AM EDT [facility] MPV 9.9 8.8 - 12.5 fL LAB HEMATOLOGY METHOD 04/02/2025 5:31 AM EDT [facility] nRBC 0.0 <=0.0 per 100 WBCs LAB HEMATOLOGY METHOD 04/02/2025 5:31 AM EDT [facility] Blood Venous blood specimen / Unknown Venipuncture / Unknown 04/02/2025 4:32 AM EDT 04/02/2025 5:20 AM EDT Иирна Lopez MD LAB BLOOD ORDERABLES Final R esult Performing Organization Address City/[facility]/ZIP Co de Phone Number [facility] [address] [place] [address] * (ABNORMAL) POCT glucose meter (04/01/2025 8:14 [...] Comment 04/01/2025 8:16 PM EDT [facility] Machine Turner ID [email or web address] 8:16 PM EDT [facility] Device ID [id number] 04/01/2025 8:16 PM EDT [facility] Specimen Type POC Capillary 04/01/2025 8:16 PM EDT [facility] Blood Capillary blood specimen / Unknown 04/01/2025 8:14 PM EDT 04/01/2025 8:16 PM EDT Ирина Lopez MD LAB POINT OF CARE TE ST DOCKED DEVICE UNSOLICITED RESULTS Final Result Performing Organization Address City/[facility]/ZIP Co de Phone Number [facility] [address] [place] [address] * (ABNORMAL) POCT glucose meter (04/01/2025 5:26 [...] Comment 04/01/2025 5:29 PM EDT [facility] Machine Turner ID Kenn Cabrera 04/01/2025 5:29 PM EDT [facility] LAB Device ID [id number] 04/01/2025 5:29 PM EDT [facility] Specimen Type POC Capillary 04/01/2025 5:29 PM EDT [facility] Blood Capillary blood specimen / Unknown 04/01/2025 5:26 PM EDT 04/01/2025 5:29 PM EDT us Ирина Lopez MD LAB POINT OF CARE TE ST DOCKED DEVICE UNSOLICITED RESULTS Final Result Performing Organization Address City/State/[facility] Co de Phone Number [facility] [address] [place] [address] * (ABNORMAL) POCT glucose meter (04/01/2025 12:49 PM EDT) [facility] POCT Glucose 162(H) 74 - 99 [...] Comment 04/01/2025 12:51 PM EDT [facility] Machine Turner ID Kenn Cabrera 04/01/2025 12:51 PM EDT [facility] Device ID [id number] 04/01/2025 12:51 PM EDT [facility] LAB Specimen Type POC Capillary 04/01/2025 12:51 PM EDT [facility] Blood Capillary blood specimen / Unknown 04/01/2025 12:49 PM EDT 04/01/2025 12:51 PM EDT us Ирина Lopez MD LAB POINT OF CARE TE ST DOCKED DEVICE UNSOLICITED RESULTS Final Result Performing Organization Address [facility] de Phone Number HEALTHCARE LAB [address] [place] [address] * (ABNORMAL) POCT glucose meter (04/01/2025 8:43 [...] 04/01/2025 8:45 AM EDT [facility] Machine Turner ID Kenn Cabrera 04/01/2025 8:45 AM EDT [facility] Device ID [id number] 04/01/2025 8:45 AM EDT [facility] Specimen Type POC Capillary 04/01/2025 8:45 AM EDT [facility] Blood Capillary blood specimen / Unknown 04/01/2025 8:43 AM EDT 04/01/2025 8:45 AM EDT Ирина Lopez MD LAB POINT OF CARE TE ST DOCKED DEVICE UNSOLICITED RESULTS Final Result Performing Organization Address [facility] de Phone Number [facility] [address] [place] [address] * XR Chest 1 View (04/01/2025 5:41 [...] - 99 mg/dL 04/01/2025 4:24 AM EDT [facility] BUN, Plasma 20 8 - 23 mg/dL 04/01/2025 4:24 AM EDT [facility] Creatinine, Plasma 1.67(H) 0.70 - 1.20 mg/dL 04/01/2025 4:24 AM EDT [facility] BUN/Creatinine Ratio 12 04/01/2025 4:24 AM EDT [facility] Sodium, Plasma 136 136 - 145 mmol/L 04/01/2025 4:24 AM EDT [facility] Potassium, Plasma 4.3 3.6 - 4.9 mmol/L 04/01/2025 4:24 AM EDT [facility] Chloride, Plasma 101 97 - 107 mmol/L 04/01/2025 4:24 AM EDT [facility] CO2, Plasma 24 22 - 29 mmol/L 04/01/2025 4:24 AM EDT [facility] Anion Gap 11 6 - 16 mmol/L 04/01/2025 4:24 AM EDT [facility] Total Calcium, Plasma 8.1(L) 8.9 - 10.2 mg/dL 04/01/2025 4:24 AM EDT [facility] Phosphorus, Plasma 2.5 2.5 - 4.5 mg/dL 04/01/2025 4:24 AM EDT [facility] Albumin, Plasma 3.0(L) 3.5 - 5.2 g/dL 04/01/2025 4:24 AM EDT [facility] eGFRcr 41.6 mL/min/1.7 3m*2 04/01/2025 4:24 AM EDT [facility] Comment:Reported eGFRcr in m L/min/1.73m2 is based the CKD-EPI 2020 equation that does not use a race coefficient. Blood Venous blood specimen / Unknown Venipuncture / Unknown 04/01/2025 2:12 AM EDT 04/01/2025 3:21 AM EDT Ирина Lopez MD LAB BLOOD ORDERABLES Final R esult [facility] [address] [place] [address] * Magnesium, Plasma (04/01/2025 2:12 AM EDT) Magnesium, Plasma 2.4 1.9 - 2.4 mg/dL 04/01/2025 4:24 AM EDT [facility] Blood Venous blood specimen / Unknown Venipuncture / Unknown 04/01/2025 2:12 AM EDT 04/01/2025 3:21 AM EDT Ирина Lopez MD LAB BLOOD ORDERABLES Final R esult [facility] [address] [place] [address] * (ABNORMAL) CBC W/O Differential (04/01/2025 2:12 AM EDT) WBC Count 6.25 3.70 - 10.30 10*3/uL LAB HEMATOLOGY METHOD 04/01/2025 3:29 AM EDT [facility] RBC Count 2.59(L) 4.60 - 6.10 10*6/uL LAB HEMATOLOGY METHOD 04/01/2025 3:29 AM EDT [facility] HGB 7.6(L) 13.7 - 17.5 g/dL LAB HEMATOLOGY METHOD 04/01/2025 3:29 AM EDT [facility] HCT 22.9(L) 40.0 - 51.0 % LAB HEMATOLOGY METHOD 04/01/2025 3:29 AM EDT [facility] Platelet Count 163 155 - 369 10*3/uL LAB HEMATOLOGY METHOD 04/01/2025 3:29 AM EDT [facility] MCV 88 79 - 98 fL LAB HEMATOLOGY METHOD 04/01/2025 3:29 AM EDT [facility] MCH 29.3 26.0 - 32.0 pg LAB HEMATOLOGY METHOD 04/01/2025 3:29 AM EDT [facility] MCHC 33.2 30.7 - 35.5 g/dL LAB HEMATOLOGY METHOD 04/01/2025 3:29 AM EDT [facility] RDW 14.1 11.5 - 14.5 % LAB HEMATOLOGY METHOD 04/01/2025 3:29 AM EDT [facility] MPV 10.0 8.8 - 12.5 fL LAB HEMATOLOGY METHOD 04/01/2025 3:29 AM EDT [facility] nRBC 0.0 <=0.0 per 100 WBCs LAB HEMATOLOGY METHOD 04/01/2025 3:29 AM EDT [facility] Blood Venous blood specimen / Unknown Venipuncture / Unknown 04/01/2025 2:12 AM EDT 04/01/2025 3:21 AM EDT us Ирина Lopez MD LAB BLOOD ORDERABLES Final R esult [facility] [address] [place] [address] * (ABNORMAL) POCT glucose meter (03/31/2025 8:19 [...] Comment 03/31/2025 8:21 PM EDT HEALTHCARE LAB Machine Turner ID Jil Ruiz 8:21 PM EDT HEALTHCARE LAB Device ID [id number] 03/31/2025 8:21 PM EDT [facility]ALTH[facility]ARE LAB Specimen Type POC Capillary 03/31/2025 8:21 PM EDT [facility] Blood Capillary blood specimen / Unknown 03/31/2025 8:19 PM EDT 03/31/2025 8:21 PM EDT us Ирина Lopez MD LAB POINT OF CARE TE ST DOCKED DEVICE UNSOLICITED RESULTS Final Result Performing Organization Address City/State/[facility] Co de Phone Number HEALTHCARE LAB [address] [place] [address] * (ABNORMAL) POCT glucose meter (03/31/2025 5:24 PM EDT) [facility] POCT Glucose 194(H) 74 - 99 [...] 03/31/2025 5:26 PM EDT [facility] Machine Turner ID Kenn Cabrera 03/31/2025 5:26 PM EDT HEALTHCARE LAB Device ID [id number] 03/31/2025 5:26 PM EDT HEALTHCARE LAB Specimen Type POC Capillary 03/31/2025 5:26 PM EDT [facility]ALTH[facility]ARE LAB Blood Capillary blood specimen / Unknown 03/31/2025 5:24 PM EDT 03/31/2025 5:26 PM EDT us Ирина Lopez MD LAB POINT OF CARE TE ST DOCKED DEVICE UNSOLICITED RESULTS Final Result [facility] [address] [place] [address] * Transfuse RBC (03/31/2025 3:56 PM EDT) Scarlet Gamboa ROUTING MACHINE OPERATOR BLOOD TRANSFUSION ORDERABLES Final Result * Transfuse RBC: 1 Units (03/31/2025 3:56 PM EDT) Scarlet Gamboa ROUTING MACHINE OPERATOR BLOOD TRANSFUSION ORDERABLES Final Result * XR [...] 03/31/2025 1:30 PM us Scarlet A Gamboa ROUTING MACHINE OPERATOR IMG XR PROCEDURES Final Resul t * [...] for testing. Comment 03/31/2025 12:34 PM EDT [facility] Machine Turner ID Kenn Cabrera 03/31/2025 12:34 PM EDT [facility] Device ID [id number] 03/31/2025 12:34 PM EDT [facility] Specimen Type POC Capillary 03/31/2025 12:34 PM EDT [facility] Blood Capillary blood specimen / Unknown 03/31/2025 12:31 PM EDT 03/31/2025 12:34 PM EDT us Ирина Lopez MD LAB POINT OF CARE TE ST DOCKED DEVICE UNSOLICITED RESULTS Final Result Performing Organization Address City/State/[facility] Co de Phone Number HEALTHCARE LAB [address] [place] [address] * (ABNORMAL) POCT glucose meter (03/31/2025 9:08 AM EDT) POCT Glucose 173(H) 74 - 99 mg/dL 03/31/2025 9:09 AM EDT [facility] Comment:Accuracy of a glucos e result [...] 03/31/2025 9:09 AM EDT [facility] Machine Turner ID Kenn Cabrera 03/31/2025 9:09 AM EDT HEALTHCARE LAB Device ID [id number] 03/31/2025 9:09 AM EDT [facility]ALTHCARE LAB Specimen Type POC Capillary 03/31/2025 9:09 AM EDT HEALTHCARE LAB Blood Capillary blood specimen / Unknown 03/31/2025 9:08 AM EDT 03/31/2025 9:09 AM EDT us Ирина Lopez MD LAB POINT OF CARE TE ST DOCKED DEVICE UNSOLICITED RESULTS Final Result Performing Organization Address City/[facility]/ZIP Co de Phone Number [facility] [address] [place] [address] * Prepare Leukocyte Reduced RBC: 1 Units (03/31/2025 9:02 AM EDT) Product Code [id number] CH BLOO D BANK Dispense Status Transfused BLOOD BANK Blood Expiration Date [id number] BLOOD BANK Unit Number [id number] CH B LOOD BANK Product Blood Type 6200 BLOOD BANK Blood Type A+ CH BLOOD BANK Crossmatch Compatible BLOOD BANK Other Scarlet Gamboa APRN BLOOD BANK PRODUCT ORDERABLES Final Result Performing Organization Address City/[facility] Co de Phone Number BLOOD BANK [address] [place] [address], * XR Chest 1 View (03/31/2025 6:04 [...] - 99 mg/dL 03/31/2025 3:13 AM EDT [facility] BUN, Plasma 21 8 - 23 mg/dL 03/31/2025 3:13 AM EDT [facility] Creatinine, Plasma 1.59(H) 0.70 - 1.20 mg/dL 03/31/2025 3:13 AM EDT [facility] BUN/Creatinine Ratio 13 03/31/2025 3:13 AM EDT [facility] Sodium, Plasma 133(L) 136 - 145 mmol/L 03/31/2025 3:13 AM EDT [facility] Potassium, Plasma 3.6 3.6 - 4.9 mmol/L 03/31/2025 3:13 AM EDT [facility] Chloride, Plasma 102 97 - 107 mmol/L 03/31/2025 3:13 AM EDT [facility] CO2, Plasma 19(L) 22 - 29 mmol/L 03/31/2025 3:13 AM EDT [facility] Anion Gap 12 6 - 16 mmol/L 03/31/2025 3:13 AM EDT [facility] Total Calcium, Plasma 7.0(L) 8.9 - 10.2 mg/dL 03/31/2025 3:13 AM EDT [facility] Phosphorus, Plasma 3.5 2.5 - 4.5 mg/dL 03/31/2025 3:13 AM EDT [facility] Albumin, Plasma 2.9(L) 3.5 - 5.2 g/dL 03/31/2025 3:13 AM EDT [facility] eGFRcr 44.2 mL/min/1.7 3m*2 03/31/2025 3:13 AM EDT [facility] Comment:Reported eGFRcr in m L/min/1.73m2 is based the CKD-EPI 2020 equation that does not use a race coefficient. Blood Venous blood specimen / Unknown Venipuncture / Unknown 03/31/2025 2:22 AM EDT 03/31/2025 2:41 AM EDT Ирина Lopez MD LAB BLOOD ORDERABLES Final R esult Performing Organization Address City/[facility]/ZIP Co de Phone Number [facility] [address] [place] [address] * (ABNORMAL) Magnesium, Plasma (03/31/2025 2:22 AM EDT) Magnesium, Plasma 3.1(H) 1.9 - 2.4 mg/dL 03/31/2025 3:13 AM EDT [facility] Blood Venous blood specimen / Unknown Venipuncture / Unknown 03/31/2025 2:22 AM EDT 03/31/2025 2:41 AM EDT Ирина Lopez MD LAB BLOOD ORDERABLES Final R esult [facility] [address] [place] [address] * (ABNORMAL) CBC W/O Differential (03/31/2025 2:22 AM EDT) WBC Count 7.84 3.70 - 10.30 10*3/uL LAB HEMATOLOGY METHOD 03/31/2025 2:51 AM EDT [facility] RBC Count 2.65(L) 4.60 - 6.10 10*6/uL LAB HEMATOLOGY METHOD 03/31/2025 2:51 AM EDT [facility] HGB 8.0(L) 13.7 - 17.5 g/dL LAB HEMATOLOGY METHOD 03/31/2025 2:51 AM EDT [facility] HCT 24.3(L) 40.0 - 51.0 % LAB HEMATOLOGY METHOD 03/31/2025 2:51 AM EDT [facility] Platelet Count 155 155 - 369 10*3/uL LAB HEMATOLOGY METHOD 03/31/2025 2:51 AM EDT [facility] MCV 92 79 - 98 fL LAB HEMATOLOGY METHOD 03/31/2025 2:51 AM EDT [facility] MCH 30.2 26.0 - 32.0 pg LAB HEMATOLOGY METHOD 03/31/2025 2:51 AM EDT [facility] MCHC 32.9 30.7 - 35.5 g/dL LAB HEMATOLOGY METHOD 03/31/2025 2:51 AM EDT [facility] RDW 13.2 11.5 - 14.5 % LAB HEMATOLOGY METHOD 03/31/2025 2:51 AM EDT [facility] MPV 9.6 8.8 - 12.5 fL LAB HEMATOLOGY METHOD 03/31/2025 2:51 AM EDT [facility] nRBC 0.0 <=0.0 per 100 WBCs LAB HEMATOLOGY METHOD 03/31/2025 2:51 AM EDT [facility] Blood Venous blood specimen / Unknown Venipuncture / Unknown 03/31/2025 2:22 AM EDT 03/31/2025 2:41 AM EDT us Ирина Lopez MD LAB BLOOD ORDERABLES Final R esult [facility] [address] [place] [address] * (ABNORMAL) POCT glucose meter (03/30/2025 8:28 PM EDT) [facility] POCT Glucose 206(H) 74 - 99 mg/dL 03/30/2025 8:30 PM EDT [facility] Comment:Accuracy of a glucos e [...] Comment 03/30/2025 8:30 PM EDT HEALTHCARE LAB Machine Turner ID Danuta Laughlin 03/30/2025 8:30 PM EDT HEALTHCARE LAB Device ID [id number] 03/30/2025 8:30 PM EDT [facility] Specimen Type POC Capillary 03/30/2025 8:30 PM EDT HEALTHCARE LAB Blood Capillary blood specimen / Unknown 03/30/2025 8:28 PM EDT 03/30/2025 8:30 PM EDT us Ирина Lopez MD LAB POINT OF CARE TE ST DOCKED DEVICE UNSOLICITED RESULTS Final Result Performing Organization Address City/State/[facility] Co de Phone Number HEALTHCARE LAB [address] [place] [address] * (ABNORMAL) POCT glucose meter (03/30/2025 5:20 [...] 03/30/2025 5:21 PM EDT [facility] Machine Turner ID Halima Ervin 03/30/20 5:21 PM EDT [facility] Device ID [id number] 03/30/2025 5:21 PM EDT HEALTHCARE LAB Specimen Type POC Capillary 03/30/2025 5:21 PM EDT HEALTHCARE LAB Blood Capillary blood specimen / Unknown 03/30/2025 5:20 PM EDT 03/30/2025 5:21 PM EDT us Ирина Lopez MD LAB POINT OF CARE TE ST DOCKED DEVICE UNSOLICITED RESULTS Final Result [facility] [address] [place] [id number] * XR Chest 1 View (03/30/2025 4:46 [...] on 03/30/2025 5:01 PM us Scarlet Gamboa ROUTING MACHINE OPERATOR IMG XR PROCEDURES Final Resul t * (ABNORMAL) POCT glucose meter (03/30/2025 12:48 PM EDT) POCT Glucose 219(H) 74 - 99 mg/dL 03/30/2025 12:49 PM EDT [facility] Comment:Accuracy of a glucos e [...] Comment 03/30/2025 12:49 PM EDT HEALTHCARE LAB Machine Turner ID Cata Gibbs 12:49 PM EDT HEALTHCARE LAB Device ID [id number] 03/30/2025 12:49 PM EDT HEALTHCARE LAB Specimen Type POC Venous 03/30/2025 12:49 PM EDT HEALTHCARE LAB Blood Venous blood specimen / Unknown 03/30/2025 12:48 PM EDT 03/30/2025 12:49 PM EDT us Ирина Lopez MD LAB POINT OF CARE TE ST DOCKED DEVICE UNSOLICITED RESULTS Final Result Performing Organization Address [facility] Co de Phone Number [facility] [address] [place] [address] * (ABNORMAL) Magnesium, Plasma (03/30/2025 10:57 AM EDT) Magnesium, Plasma 3.1(H) 1.9 - 2.4 mg/dL 03/30/2025 11:49 AM EDT [facility] Blood Venous blood specimen / Unknown Venipuncture / Unknown 03/30/2025 10:57 AM EDT 03/30/2025 11:16 AM EDT us Scarlet Gamboa APRN LAB BLOOD ORDERABLES Final Re sult [facility] [address] [place] [address] * (ABNORMAL) Renal function panel (03/30/2025 10:57 AM EDT) Glucose, Plasma 236(H) 74 - 99 mg/dL 03/30/2025 11:49 AM EDT [facility] BUN, Plasma 20 8 - 23 mg/dL 03/30/2025 11:49 AM EDT [facility] Creatinine, Plasma 1.64(H) 0.70 - 1.20 mg/dL 03/30/2025 11:49 AM EDT [facility] BUN/Creatinine Ratio 12 03/30/2025 11:49 AM EDT [facility] Sodium, Plasma 132(L) 136 - 145 mmol/L 03/30/2025 11:49 AM EDT [facility] Potassium, Plasma 4.6 3.6 - 4.9 mmol/L 03/30/2025 11:49 AM EDT [facility] Chloride, Plasma 100 97 - 107 mmol/L 03/30/2025 11:49 AM EDT [facility] CO2, Plasma 21(L) 22 - 29 mmol/L 03/30/2025 11:49 AM EDT [facility] Anion Gap 11 6 - 16 mmol/L 03/30/2025 11:49 AM EDT [facility] Total Calcium, Plasma 7.4(L) 8.9 - 10.2 mg/dL 03/30/2025 11:49 AM EDT [facility] Phosphorus, Plasma 2.6 2.5 - 4.5 mg/dL 03/30/2025 11:49 AM EDT [facility] Albumin, Plasma 3.0(L) 3.5 - 5.2 g/dL 03/30/2025 11:49 AM EDT [facility] eGFRcr 42.5 mL/min/1.7 3m*2 03/30/2025 11:49 AM EDT [facility] Comment:Reported eGFRcr in m L/min/1.73m2 is based the CKD-EPI 2020 equation that does not use a race coefficient. Blood Venous blood specimen / Unknown Venipuncture / Unknown 03/30/2025 10:57 AM EDT 03/30/2025 11:16 AM EDT us Ирина Lopez MD LAB BLOOD ORDERABLES Final R esult [facility] [address] [place] [address] * (ABNORMAL) POCT glucose meter (03/30/2025 10:56 [...] 03/30/2025 11:00 AM EDT [facility] Machine Turner ID Cata Gibbs 11:00 AM EDT HEALTHCARE LAB Device ID [id number] 03/30/2025 11:00 AM EDT HEALTHCARE LAB Specimen Type POC Venous 03/30/2025 11:00 AM EDT HEALTHCARE LAB Blood Venous blood specimen / Unknown 03/30/2025 10:56 AM EDT 03/30/2025 11:00 AM EDT us Ирина Lopez MD LAB POINT OF CARE TE ST DOCKED DEVICE UNSOLICITED RESULTS Final Result Performing Organization Address City/State/[facility] Co de Phone Number HEALTHCARE LAB [address] [place] [address] * (ABNORMAL) POCT glucose meter (03/30/2025 9:38 AM EDT) [facility] POCT Glucose 271(H) 74 - 99 [...] 03/30/2025 9:39 AM EDT [facility] Machine Turner ID Cata Gibbs 9:39 AM EDT [facility] Device ID [id number] 03/30/2025 9:39 AM EDT [facility] Specimen Type POC Venous 03/30/2025 9:39 AM EDT HEALTHCARE LAB Blood Venous blood specimen / Unknown 03/30/2025 9:38 AM EDT 03/30/2025 9:39 AM EDT Ирина Lopez MD LAB POINT OF CARE TE ST DOCKED DEVICE UNSOLICITED RESULTS Final Result Performing Organization Address [facility] Co de Phone Number HEALTHCARE LAB [address] [place] [address] * ECG Adult (03/30/2025 8:37 AM EDT) EKG DIAGNOSIS CLASS Abnormal MUSE ECG Ventricular Rate 81 BPM MUSE ECG Atrial Rate 81 BPM MUSE ECG IA Interval 170 ms MUSE ECG QRSD Interval 104 ms MUSE ECG QT Interval 416 ms MUSE ECG QTC Interval 483 ms MUSE ECG P [place] 39 degrees MUSE ECG R [place] -51 degrees MUSE ECG T Wave [place] -15 degrees MUSE ECG Diagnosis Poor data [...] ECG ORDERABLES Final Result Performing Organization Address [facility] de Phone Number MUSE ECG * (ABNORMAL) POCT glucose meter (03/30/2025 8:10 AM EDT) Pathologist [facility] POCT Glucose 164(H) 74 - 99 mg/dL 03/30/2025 8:11 AM EDT [facility] Comment:Accuracy of a glucos e result [...] 03/30/2025 8:11 AM EDT [facility] Machine Turner ID Cata Gibbs 8:11 AM EDT HEALTHCARE LAB Device ID [id number] 03/30/2025 8:11 AM EDT HEALTHCARE LAB Specimen Type POC Venous 03/30/2025 8:11 AM EDT HEALTHCARE LAB Blood Venous blood specimen / Unknown 03/30/2025 8:10 AM EDT 03/30/2025 8:11 AM EDT us Ирина Lopez MD LAB POINT OF CARE TE ST DOCKED DEVICE UNSOLICITED RESULTS Final Result [facility] [address] [place] [id number] * (ABNORMAL) Renal function panel (03/30/2025 4:05 AM EDT) Glucose, Plasma 207(H) 74 - 99 mg/dL 03/30/2025 4:40 AM EDT [facility] BUN, Plasma 18 8 - 23 mg/dL 03/30/2025 4:40 AM EDT [facility] Creatinine, Plasma 1.41(H) 0.70 - 1.20 mg/dL 03/30/2025 4:40 AM EDT [facility] BUN/Creatinine Ratio 13 03/30/2025 4:40 AM EDT [facility] Sodium, Plasma 134(L) 136 - 145 mmol/L 03/30/2025 4:40 AM EDT [facility] Potassium, Plasma 5.8(H) 3.6 - 4.9 mmol/L 03/30/2025 4:40 AM EDT [facility] Chloride, Plasma 101 97 - 107 mmol/L 03/30/2025 4:40 AM EDT [facility] CO2, Plasma 20(L) 22 - 29 mmol/L 03/30/2025 4:40 AM EDT [facility] Anion Gap 13 6 - 16 mmol/L 03/30/2025 4:40 AM EDT [facility] Total Calcium, Plasma 7.7(L) 8.9 - 10.2 mg/dL 03/30/2025 4:40 AM EDT [facility] Phosphorus, Plasma 3.0 2.5 - 4.5 mg/dL 03/30/2025 4:40 AM EDT [facility] Albumin, Plasma 3.2(L) 3.5 - 5.2 g/dL 03/30/2025 4:40 AM EDT [facility] eGFRcr 51.0 mL/min/1.7 3m*2 03/30/2025 4:40 AM EDT [facility] Comment:Reported eGFRcr in m L/min/1.73m2 is based the CKD-EPI 2020 equation that does not use a race coefficient. Blood Arterial blood specimen / Unknown Arterial Puncture / Unknown 03/30/2025 4:05 AM EDT 03/30/2025 4:11 AM EDT Ирина Lopez MD LAB BLOOD ORDERABLES Final R esult Performing Organization Address City/[facility]/ZIP Co de Phone Number [facility] [address] [place] [address] * (ABNORMAL) Magnesium (03/30/2025 4:05 AM EDT) Magnesium, Plasma 1.4(L) 1.9 - 2.4 mg/dL 03/30/2025 4:40 AM EDT [facility] Blood Arterial blood specimen / Unknown Arterial Puncture / Unknown 03/30/2025 4:05 AM EDT 03/30/2025 4:11 AM EDT Ирина Lopez MD LAB BLOOD ORDERABLES Final R esult [facility] [address] [place] [address] * (ABNORMAL) CBC W/O Differential (03/30/2025 4:05 AM EDT) WBC Count 9.64 3.70 - 10.30 10*3/uL LAB HEMATOLOGY METHOD 03/30/2025 4:19 AM EDT [facility] RBC Count 2.91(L) 4.60 - 6.10 10*6/uL LAB HEMATOLOGY METHOD 03/30/2025 4:19 AM EDT [facility] HGB 8.8(L) 13.7 - 17.5 g/dL LAB HEMATOLOGY METHOD 03/30/2025 4:19 AM EDT [facility] HCT 25.8(L) 40.0 - 51.0 % LAB HEMATOLOGY METHOD 03/30/2025 4:19 AM EDT [facility] Platelet Count 190 155 - 369 10*3/uL LAB HEMATOLOGY METHOD 03/30/2025 4:19 AM EDT [facility] MCV 89 79 - 98 fL LAB HEMATOLOGY METHOD 03/30/2025 4:19 AM EDT [facility] MCH 30.2 26.0 - 32.0 pg LAB HEMATOLOGY METHOD 03/30/2025 4:19 AM EDT [facility] MCHC 34.1 30.7 - 35.5 g/dL LAB HEMATOLOGY METHOD 03/30/2025 4:19 AM EDT [facility] RDW 12.6 11.5 - 14.5 % LAB HEMATOLOGY METHOD 03/30/2025 4:19 AM EDT [facility] MPV 9.6 8.8 - 12.5 fL LAB HEMATOLOGY METHOD 03/30/2025 4:19 AM EDT [facility] nRBC 0.0 <=0.0 per 100 WBCs LAB HEMATOLOGY METHOD 03/30/2025 4:19 AM EDT [facility] Blood Arterial blood specimen / Unknown Arterial Puncture / Unknown 03/30/2025 4:05 AM EDT 03/30/2025 4:11 AM EDT us Ирина Lopez MD LAB BLOOD ORDERABLES Final R esult [facility] [address] [place] [address] * XR Chest 1 View (03/30/2025 1:35 [...] Per this written report. Drafted by Jaqueline Delcaruz MD on 03/30/2025 6:05 AM Final report [...] - 1.20 mg/dL 03/29/2025 8:39 PM EDT [facility] eGFRcr 70.2 mL/min/1.7 3m*2 03/29/2025 8:39 PM EDT [facility] Comment:Reported eGFRcr in m L/min/1.73m2 is based the CKD-EPI 2020 equation that does not use a race coefficient. Blood Arterial blood specimen / Unknown Arterial Puncture / Unknown 03/29/2025 7:58 PM EDT 03/29/2025 8:05 PM EDT Ирина Lopez MD LAB BLOOD ORDERABLES Final R esult [facility] [address] [place] [address] * (ABNORMAL) Renal Function Panel, Plasma (03/29/2025 7:58 PM EDT) Glucose, Plasma 183(H) 74 - 99 mg/dL 03/29/2025 8:39 PM EDT [facility] BUN, Plasma 13 8 - 23 mg/dL 03/29/2025 8:39 PM EDT [facility] Creatinine, Plasma 1.08 0.70 - 1.20 mg/dL 03/29/2025 8:39 PM EDT [facility] BUN/Creatinine Ratio 12 03/29/2025 8:39 PM EDT [facility] Sodium, Plasma 136 136 - 145 mmol/L 03/29/2025 8:39 PM EDT [facility] Potassium, Plasma 4.4 3.6 - 4.9 mmol/L 03/29/2025 8:39 PM EDT [facility] Chloride, Plasma 104 97 - 107 mmol/L 03/29/2025 8:39 PM EDT [facility] CO2, Plasma 21(L) 22 - 29 mmol/L 03/29/2025 8:39 PM EDT [facility] Anion Gap 11 6 - 16 mmol/L 03/29/2025 8:39 PM EDT [facility] Total Calcium, Plasma 7.9(L) 8.9 - 10.2 mg/dL 03/29/2025 8:39 PM EDT [facility] Phosphorus, Plasma 2.9 2.5 - 4.5 mg/dL 03/29/2025 8:39 PM EDT [facility] Albumin, Plasma 3.2(L) 3.5 - 5.2 g/dL 03/29/2025 8:39 PM EDT [facility] eGFRcr 70.2 mL/min/1.7 3m*2 03/29/2025 8:39 PM EDT [facility] [facility] Comment:Reported eGFRcr in m L/min/1.73m2 is based the CKD-EPI 2020 equation that does not use a race coefficient. Blood Arterial blood specimen / Unknown Arterial Puncture / Unknown 03/29/2025 7:58 PM EDT 03/29/2025 8:05 PM EDT us Ирина Lopez MD LAB BLOOD ORDERABLES Final R esult [facility] [address] [place] [address] * (ABNORMAL) Magnesium, Plasma (03/29/2025 7:58 PM EDT) Magnesium, Plasma 1.3(L) 1.9 - 2.4 mg/dL 03/29/2025 8:39 PM EDT [facility] Blood Arterial blood specimen / Unknown Arterial Puncture / Unknown 03/29/2025 7:58 PM EDT 03/29/2025 8:05 PM EDT us Ирина Lopez MD LAB BLOOD ORDERABLES Final R esult Performing Organization Address City/[facility]/ZIP Co de Phone Number [facility] [address] [place] [address] * Fibrinogen (03/29/2025 7:58 PM EDT) Fibrinogen, Quantitative (Clottable) 294 208 - 459 mg/dL LAB COAGULATION METHOD 03/29/2025 8:38 PM EDT [facility] Blood Arterial blood specimen / Unknown Arterial Puncture / Unknown 03/29/2025 7:58 PM EDT 03/29/2025 8:05 PM EDT us Kiana Gusman CRNA LAB BLOOD ORDERABLES Final R esult [facility] [address] [place] [address] * Protime-INR (03/29/2025 7:58 PM EDT) Prothrombin Time 13.8 12.0 - 14.3 sec LAB COAGULATION METHOD 03/29/2025 8:38 PM EDT [facility] INR 1.0 0.9 - 1.1 LAB COAGULATION METHOD 03/29/2025 8:38 PM EDT [facility] Blood Arterial blood specimen / Unknown Arterial Puncture / Unknown 03/29/2025 7:58 PM EDT 03/29/2025 8:05 PM EDT Narrative [facility] - 03/29/2025 8:38 PM EDT OPTIMAL INR RANGES FOR PATIENT ON ORAL ANTICOAGULANT THERAPY Prevention of venous thromboembolism INR 2.0 to 3.0 In patients with heart disease: Atrial fibrillation INR 2.0 to 3.0 Valvular heart disease INR 2.0 to 3.0 Tissue heart valves INR 2.0 to 3.0 Mechanical prosthetic valves INR 2.5 to 3.5 Prevention of recurrent NE INR 2.5 to 3.5 us Kiana Gusman CRNA LAB BLOOD ORDERABLES Final R esult [facility] [address] [place] [address] * (ABNORMAL) CBC and differential (03/29/2025 7:58 PM EDT) WBC Count 8.18 3.70 - 10.30 10*3/uL LAB HEMATOLOGY METHOD 03/29/2025 8:29 PM EDT [facility] RBC Count 3.11(L) 4.60 - 6.10 10*6/uL LAB HEMATOLOGY METHOD 03/29/2025 8:29 PM EDT [facility] HGB 9.2(L) 13.7 - 17.5 g/dL LAB HEMATOLOGY METHOD 03/29/2025 8:29 PM EDT [facility] HCT 27.7(L) 40.0 - 51.0 % LAB HEMATOLOGY METHOD 03/29/2025 8:29 PM EDT [facility] Platelet Count 174 155 - 369 10*3/uL LAB HEMATOLOGY METHOD 03/29/2025 8:29 PM EDT [facility] MCV 89 79 - 98 fL LAB HEMATOLOGY METHOD 03/29/2025 8:29 PM EDT [facility] MCH 29.6 26.0 - 32.0 pg LAB HEMATOLOGY METHOD 03/29/2025 8:29 PM EDT [facility] MCHC 33.2 30.7 - 35.5 g/dL LAB HEMATOLOGY METHOD 03/29/2025 8:29 PM EDT [facility] RDW 12.6 11.5 - 14.5 % LAB HEMATOLOGY METHOD 03/29/2025 8:29 PM EDT [facility] MPV 9.3 8.8 - 12.5 fL LAB HEMATOLOGY METHOD 03/29/2025 8:29 PM EDT [facility] nRBC 0.0 <=0.0 per 100 WBCs LAB HEMATOLOGY METHOD 03/29/2025 8:29 PM EDT [facility] Differential Type Automated LAB HEMATOLOGY METHOD 03/29/2025 8:29 PM EDT [facility] Neutrophils % 86 % LAB HEMATOLOGY METHOD 03/29/2025 8:29 PM EDT [facility] Lymphocytes % 9 % LAB HEMATOLOGY METHOD 03/29/2025 8:29 PM EDT [facility] Monocytes % 5 % LAB HEMATOLOGY METHOD 03/29/2025 8:29 PM EDT [facility] Eosinophils % 0 % LAB HEMATOLOGY METHOD 03/29/2025 8:29 PM EDT [facility] Basophils % 0 % LAB HEMATOLOGY METHOD 03/29/2025 8:29 PM EDT [facility] Immature Granulocytes % 0 % LAB HEMATOLOGY METHOD 03/29/2025 8:29 PM EDT [facility] Neutrophils Absolute 7.00(H) 1.60 - 6.10 10*3/uL LAB HEMATOLOGY METHOD 03/29/2025 8:29 PM EDT [facility] Lymphocytes Absolute 0.71(L) 1.20 - 3.90 10*3/uL LAB HEMATOLOGY METHOD 03/29/2025 8:29 PM EDT [facility] Monocytes Absolute 0.40 0.30 - 0.90 10*3/uL LAB HEMATOLOGY METHOD 03/29/2025 8:29 PM EDT [facility] Eosinophils Absolute 0.02 0.00 - 0.50 10*3/uL LAB HEMATOLOGY METHOD 03/29/2025 8:29 PM EDT [facility] Basophils Absolute 0.02 0.00 - 0.10 10*3/uL LAB HEMATOLOGY METHOD 03/29/2025 8:29 PM EDT [facility] Immature Granulocytes Absolute 0.03 0.00 - 0.06 10*3/uL LAB HEMATOLOGY METHOD 03/29/2025 8:29 PM EDT [facility] Blood Arterial blood specimen / Unknown Arterial Puncture / Unknown 03/29/2025 7:58 PM EDT 03/29/2025 8:04 PM EDT [facility] - 03/29/2025 8:29 PM EDT Therapeutic decision making should be based on absolute values, rather than percentages. us Kiana Gusman CRNA LAB BLOOD ORDERABLES Final R esult [facility] [address] [place] [address] * (ABNORMAL) POCT glucose meter (03/29/2025 7:43 [...] Comment 03/29/2025 7:45 PM EDT [facility] Machine Turner ID Radha Slater 03/29/20 7:45 PM EDT [facility] Device ID [id number] 03/29/2025 7:45 PM EDT [facility] Specimen Type POC Capillary 03/29/2025 7:45 PM EDT [facility] Blood Capillary blood specimen / Unknown 03/29/2025 7:43 PM EDT 03/29/2025 7:45 PM EDT us Ирина Lopez MD LAB POINT OF CARE TE ST DOCKED DEVICE UNSOLICITED RESULTS Final Result [facility] [address] [place] [address] * Surgical Pathology Exam (03/29/2025 5:10 PM EDT) Case Report Surgical Pathology Case: [id number] Authorizing Provider: Ирина Lopez MD Collected: 03/29/2025 1716 Ordering Location: [facility] A OPERATING ROOM Received: 03/30/2025 0757 Pathologist: Cindy Miller MD Intraop: Elizabeth Gibbs [...] (specify site), lipoma 5 2:45 PM EDT [facility] Final Diagnosis A. LUNG, BRONCHIAL [...] EXCISION: - LIPOMA. 5 2:45 PM EDT [facility] at 1445 EDT Synoptic Checklist LUNG LUNG [...] pN Category: pN0 5 2:45 PM EDT [facility] Clinical Information Non-small cell cancer of left lung 5 2:45 PM EDT [facility] Intraoperative Consultation A. BRONCHIAL MARGIN FSA: No tumor seen. Todd Gibbs MD. 03/29/2025 @ 1745. 5 2:45 PM EDT [facility] Special and Immunohistochemical Stains Special Stain: [id number] Elastic Trichrome: Demonstrates visceral pleural invasion F8-2 Elastic Trichrome: Demonstrates visceral pleural invasion All controls show appropriate reactivity. All immunohistochemis try, in situ hybridization, and histochemical tests were developed by and are performed at the [facility], [address] [place] [address]. All tests reported here, except those addressing [...] 0.3-0.6 cm in greatest dimension are identified. Guitar Maker sections are submitted as follows: F1: Bronchial [...] areas of hemorrhage or necrosis are identified. Guitar Maker sections are submitted in cassettes G1-G3. Cold Time: 13h 05m SWATI Wong (ASCP) 5 2:45 PM EDT [facility] Note: A resident was involved in the service. I attest I examined the relevant preparations for the specimens and confirmed the diagnosis or interpretation. 5 2:45 PM EDT [facility] Tissue Structure of lymph node [...] MD LAB PATHOLOGY ORDERABLES Fin al Result [facility] [address] [place] [address] * (ABNORMAL) Blood gas panel, arterial (03/29/2025 4:05 PM EDT) pH, Arterial 7.38 7.31 - 7.42 LAB HEMATOLOGY METHOD 03/29/2025 4:13 PM EDT [facility] pCO2, Arterial 45 32 - 45 mmHg LAB HEMATOLOGY METHOD 03/29/2025 4:13 PM EDT [facility] pO2, Arterial 216 >70 mmHg LAB HEMATOLOGY METHOD 03/29/2025 4:13 PM EDT [facility] SO2, Measured, Arterial 100(H) 94 - 98 % LAB HEMATOLOGY METHOD 03/29/2025 4:13 PM EDT [facility] Base Excess, Arterial 1.2 -2.0 - 3.0 mmol/L LAB HEMATOLOGY METHOD 03/29/2025 4:13 PM EDT [facility] Bicarbonate, Calculated, Arterial 27(H) 22 - 26 mmol/L LAB HEMATOLOGY METHOD 03/29/2025 4:13 PM EDT [facility] Hematocrit, Whole Blood 31.6(L) 40.0 - 51.0 % LAB HEMATOLOGY METHOD 03/29/2025 4:13 PM EDT [facility] Sodium, Whole Blood 138 136 - 145 mmol/L LAB HEMATOLOGY METHOD 03/29/2025 4:13 PM EDT [facility] Potassium, Whole Blood 3.8 3.6 - 4.9 mmol/L LAB HEMATOLOGY METHOD 03/29/2025 4:13 PM EDT [facility] Chloride, Whole Blood 103 97 - 107 mmol/L LAB HEMATOLOGY METHOD 03/29/2025 4:13 PM EDT [facility] Glucose, Whole Blood 123(H) 74 - 99 mg/dL LAB HEMATOLOGY METHOD 03/29/2025 4:13 PM EDT [facility] Ionized Calcium, Whole Blood 4.4(L) 4.6 - 5.1 mg/dL LAB HEMATOLOGY METHOD 03/29/2025 4:13 PM EDT [facility] Lactate, Arterial, Whole Blood 0.8 0.5 - 1.6 mmol/L LAB HEMATOLOGY METHOD 03/29/2025 4:13 PM EDT [facility] Blood Arterial blood specimen / Unknown 03/29/2025 4:05 PM EDT 03/29/2025 4:11 PM EDT Comment:Pre-op diagnosis: Non-small cell cancer of left lung us Ирина Lopez MD LAB BLOOD ORDERABLES Final R esult [facility] [address] [place] [address] * APTT (03/29/2025 4:04 PM EDT) aPTT 28 25 - 35 sec LAB COAGULATION METHOD 03/29/2025 4:39 PM EDT [facility] Blood Arterial blood specimen / Unknown 03/29/2025 4:04 PM EDT 03/29/2025 4:18 PM EDT Comment:Pre-op diagnosis: Non-small cell cancer of left lung us Ирина Lopez MD LAB BLOOD ORDERABLES Final R esult Performing Organization Address [facility]/ZIP Co de Phone Number [facility] [address] [place] [address] * Prothrombin Time/INR (03/29/2025 4:04 PM EDT) Prothrombin Time 13.4 12.0 - 14.3 sec LAB COAGULATION METHOD 03/29/2025 4:39 PM EDT [facility] INR 1.0 0.9 - 1.1 LAB COAGULATION METHOD 03/29/2025 4:39 PM EDT [facility] Blood Arterial blood specimen / Unknown 03/29/2025 4:04 PM EDT 03/29/2025 4:18 PM EDT Comment:Pre-op diagnosis: Non-small cell cancer of left lung Narrative [facility] - 03/29/2025 4:39 PM EDT OPTIMAL INR RANGES FOR PATIENT ON ORAL ANTICOAGULANT THERAPY Prevention of venous thromboembolism INR 2.0 to 3.0 In patients with heart disease: Atrial fibrillation INR 2.0 to 3.0 Valvular heart disease INR 2.0 to 3.0 Tissue heart valves INR 2.0 to 3.0 Mechanical prosthetic valves INR 2.5 to 3.5 Prevention of recurrent NE INR 2.5 to 3.5 Result [facility] Ирина Lopez MD LAB BLOOD ORDERABLES Final R ult Performing Organization Address [facility] Co de Phone Number [facility] [address] [place] [address] * Fibrinogen, Quantitative (Clottable) (03/29/2025 4:04 PM EDT) Fibrinogen, Quantitative (Clottable) 336 208 - 459 mg/dL LAB COAGULATION METHOD 03/29/2025 4:39 PM EDT [facility] Blood Arterial blood specimen / Unknown 03/29/2025 4:04 PM EDT 03/29/2025 4:18 PM EDT Comment:Pre-op diagnosis: Non-small cell cancer of left lung Ирина Lopez MD LAB BLOOD ORDERABLES Final R esult [facility] [address] [place] [address] * (ABNORMAL) CBC W/O Differential (03/29/2025 4:04 PM EDT) WBC Count 3.70 3.70 - 10.30 10*3/uL LAB HEMATOLOGY METHOD 03/29/2025 4:28 PM EDT [facility] RBC Count 3.52(L) 4.60 - 6.10 10*6/uL LAB HEMATOLOGY METHOD 03/29/2025 4:28 PM EDT [facility] HGB 10.5(L) 13.7 - 17.5 g/dL LAB HEMATOLOGY METHOD 03/29/2025 4:28 PM EDT [facility] HCT 31.1(L) 40.0 - 51.0 % LAB HEMATOLOGY METHOD 03/29/2025 4:28 PM EDT [facility] Platelet Count 184 155 - 369 10*3/uL LAB HEMATOLOGY METHOD 03/29/2025 4:28 PM EDT [facility] MCV 88 79 - 98 fL LAB HEMATOLOGY METHOD 03/29/2025 4:28 PM EDT [facility] MCH 29.8 26.0 - 32.0 pg LAB HEMATOLOGY METHOD 03/29/2025 4:28 PM EDT [facility] MCHC 33.8 30.7 - 35.5 g/dL LAB HEMATOLOGY METHOD 03/29/2025 4:28 PM EDT [facility] RDW 12.6 11.5 - 14.5 % LAB HEMATOLOGY METHOD 03/29/2025 4:28 PM EDT [facility] MPV 9.4 8.8 - 12.5 fL LAB HEMATOLOGY METHOD 03/29/2025 4:28 PM EDT [facility] nRBC 0.0 <=0.0 per 100 WBCs LAB HEMATOLOGY METHOD 03/29/2025 4:28 PM EDT [facility] Blood Arterial blood specimen / Unknown 03/29/2025 4:04 PM EDT 03/29/2025 4:20 PM EDT Comment:Pre-op diagnosis: Non-small cell cancer of left lung us Ирина Lopez MD LAB BLOOD ORDERABLES Final R esult [facility] [address] [place] [address] * (ABNORMAL) Blood gas panel, arterial (03/29/2025 2:29 PM EDT) pH, Arterial 7.39 7.31 - 7.42 LAB HEMATOLOGY METHOD 03/29/2025 2:35 PM EDT [facility] pCO2, Arterial 44 32 - 45 mmHg LAB HEMATOLOGY METHOD 03/29/2025 2:35 PM EDT [facility] pO2, Arterial 190 >70 mmHg LAB HEMATOLOGY METHOD 03/29/2025 2:35 PM EDT [facility] SO2, Measured, Arterial 100(H) 94 - 98 % LAB HEMATOLOGY METHOD 03/29/2025 2:35 PM EDT [facility] Base Excess, Arterial 1.5 -2.0 - 3.0 mmol/L LAB HEMATOLOGY METHOD 03/29/2025 2:35 PM EDT [facility] Bicarbonate, Calculated, Arterial 27(H) 22 - 26 mmol/L LAB HEMATOLOGY METHOD 03/29/2025 2:35 PM EDT [facility] Hematocrit, Whole Blood 32.4(L) 40.0 - 51.0 % LAB HEMATOLOGY METHOD 03/29/2025 2:35 PM EDT [facility] Sodium, Whole Blood 139 136 - 145 mmol/L LAB HEMATOLOGY METHOD 03/29/2025 2:35 PM EDT [facility] Potassium, Whole Blood 3.6 3.6 - 4.9 mmol/L LAB HEMATOLOGY METHOD 03/29/2025 2:35 PM EDT [facility] Chloride, Whole Blood 104 97 - 107 mmol/L LAB HEMATOLOGY METHOD 03/29/2025 2:35 PM EDT [facility] Glucose, Whole Blood 96 74 - 99 mg/dL LAB HEMATOLOGY METHOD 03/29/2025 2:35 PM EDT [facility] Ionized Calcium, Whole Blood 4.4(L) 4.6 - 5.1 mg/dL LAB HEMATOLOGY METHOD 03/29/2025 2:35 PM EDT [facility] Lactate, Arterial, Whole Blood 1.4 0.5 - 1.6 mmol/L LAB HEMATOLOGY METHOD 03/29/2025 2:35 PM EDT [facility] Blood Arterial blood specimen / Unknown 03/29/2025 2:29 PM EDT 03/29/2025 2:34 PM EDT Comment:Pre-op diagnosis: Non-small cell cancer of left lung us Ирина Lopez MD LAB BLOOD ORDERABLES Final R esult Performing Organization Address City/[facility]/ZIP Co de Phone Number [facility] [address] [place] [address] * (ABNORMAL) POCT glucose meter (03/29/2025 12:48 PM EDT) Pathologist [facility] POCT Glucose 100(H) 74 - 99 mg/dL [...] Comment 03/29/2025 12:50 PM EDT [facility] Machine Turner ID Rosalie Cuevas 03/29/20 12:50 PM EDT [facility] LAB Device ID [id number] 03/29/2025 12:50 PM EDT [facility] LAB Specimen Type POC Venous 03/29/2025 12:50 PM EDT [facility] Blood Venous blood specimen / Unknown 03/29/2025 12:48 PM EDT 03/29/2025 12:50 PM EDT us Ирина Lopez MD LAB POINT OF CARE TE ST DOCKED DEVICE UNSOLICITED RESULTS Final Result Performing Organization Address City/[facility]/ZIP Co de Phone Number [facility] [address] [place] [address] * (ABNORMAL) Blood gas, venous (03/29/2025 12:27 PM EDT) Pathologist [facility] pH, Venous 7.36 7.32 - 7.43 LAB HEMATOLOGY METHOD 03/29/2025 12:51 PM EDT [facility] pCO2, Venous 49 40 - 55 mmHg LAB HEMATOLOGY METHOD 03/29/2025 12:51 PM EDT [facility] pO2, Venous 54(H) 25 - 40 mmHg LAB HEMATOLOGY METHOD 03/29/2025 12:51 PM EDT [facility] SO2, Measured, Venous 87(H) 65 - 80 % LAB HEMATOLOGY METHOD 03/29/2025 12:51 PM EDT [facility] Base Excess, Venous 1.7 -2.0 - 3.0 mmol/L LAB HEMATOLOGY METHOD 03/29/2025 12:51 PM EDT [facility] Bicarbonate, Calculated, Venous 28(H) 22 - 26 mmol/L LAB HEMATOLOGY METHOD 03/29/2025 12:51 PM EDT [facility] Hematocrit, Whole Blood 39.2(L) 40.0 - 51.0 % LAB HEMATOLOGY METHOD 03/29/2025 12:51 PM EDT [facility] Sodium, Whole Blood 140 136 - 145 mmol/L LAB HEMATOLOGY METHOD 03/29/2025 12:51 PM EDT [facility] Potassium, Whole Blood 4.0 3.6 - 4.9 mmol/L LAB HEMATOLOGY METHOD 03/29/2025 12:51 PM EDT [facility] Chloride, Whole Blood 103 97 - 107 mmol/L LAB HEMATOLOGY METHOD 03/29/2025 12:51 PM EDT [facility] Glucose, Whole Blood 97 74 - 99 mg/dL LAB HEMATOLOGY METHOD 03/29/2025 12:51 PM EDT [facility] Lactate, Venous, Whole Blood 1.6 0.5 - 2.2 mmol/L LAB HEMATOLOGY METHOD 03/29/2025 12:51 PM EDT [facility] Ionized Calcium, Whole Blood 4.5(L) 4.6 - 5.1 mg/dL LAB HEMATOLOGY METHOD 03/29/2025 12:51 PM EDT [facility] Blood Venous blood specimen / Unknown Venipuncture / Unknown 03/29/2025 12:27 PM EDT 03/29/2025 12:49 PM EDT us Robert Santos MD LAB BLOOD ORDERABLES Final Resu lt [facility] [address] [place] [address] * Type and Screen (03/29/2025 12:27 PM [...] TEST ORDERABLES Final Result Performing Organization Address [facility] Co de Phone Number BLOOD BANK [address] [place] [address], documented in this encounter Visit Diagnoses Diagnosis [...] AM EDT 2 Units Right Upper Arm (Yuinel k) Given 04/03/2025 1:03 PM EDT 2 [...] II-Outpatient)/On Unit(Inpatient) 0626 (Given - Provider: Dipak Serrnao RN)1237 (Given - Provider: Travis Corral RN)[id number] [...] APRN) 0600 (Dose Auto Held - Provider: cSarlet Gamboa APRN)[id number] (Unheld by provider - Provider: [...] documented as of this encounter Care Teams Roofing Plant Supervisor Relationship Specialty Start Date End Date Casa Phillips MD [address] [place] [id number] PCP - General 02/22/25 Forrest Nickerson APRN [address] [place] [id number] 03/06/23 documented as of this encounter
--- OUTSIDE RECORDS SUMMARY | 2025-03-29 12:10 | XMS_ITS | Encounter Summary ---
Author Organization [facility] Address [address] [place] [address] Care Team Providers Care Electron Beam Machine Welder Setter Name Role Phone Forrest Nickerson TURNAROUND PLANNER Unavailable [phone] Casa Phillips MD Primary Care Provider [phone] Reason for Visit * Auth/Cert (Routine) Specialty Diagnoses / Procedures Referred By Contac t Referred To Contact Diagnoses Non-small cell cancer of left lung (CMS/HCC) Non-small cell cancer of left lung Procedures CO THORACOSCOPY SURG LOBECTOMY LEFT VATS LOBECTOMY Ирина Lopez MD [address] [address] Phone: tel: fax: [facility] [address] [place] [address] Phone: tel: Referral ID Status Reason Start Date Expiration Date Visits Re quested Visits Authorized [id number] 1 1 Encounter Details Date Type Department Care Team (Late st Contact Info) Description 03/29/2025 12:10 PM EDT - 03/29/2025 4:50 PM EDT Surgery [facility] [address] [place] [address] Ирина Lopez MD [address] [address] LEFT VATS LOBECTOMY coverted to open, Left thoracotomy, with medistinal lymph node disection and lypoma [11317 (CPT )] Surgery Details Date/Time Status Location [...] General Class II/ Clean Contaminated Peds scope [id number] passed Surgeon Surgeon Role Service Panel Carl [...] Clinic discharge # - For urgent questions/concerns: [facility] hotline: , option 4 - ask for the thoracic surgeon agricultural extension specialist. documented in this encounter Medications at Time [...] from the original note were not included. 75108 Surgery for Lung Cancer Surgery can be [...] holidays. Last Reviewed Date: 2023 00:00:00 ?? [id number] [employer]. All rights reserved. This information is not intended as a substitute for professional medical care. Always follow your healthcare professional's instructions. * Neida OnALEXIS - Chester Cuevas RN - 04/04/2025 10:29 AM EDT Images from the original note were not included. [id number] Thoracotomy Thoracotomy is surgery used to diagnose [...] . Last Reviewed Date: 2024 00:00:00 ?? [id number] [employer]. All rights reserved. This information is not intended as a substitute for professional medical care. Always follow your healthcare professional's instructions. * Neida Garland - Chester Cuevas RN - 04/04/2025 10:29 AM EDT Images from the original note were not included. 12378 Lung Cancer: Video-Assisted and Robotic-Assisted Thoracic Surgery [...] you will hurt less after surgery. ? [facility]. You can likely go home [...] surgery because the cuts are small. ? [facility] stay. You can likely go home [...] of surgery you need. Make sure the [facility] have experience in VATS or [...] future. Last Reviewed Date: 2023 00:00:00 ?? [id number] [employer]. All rights reserved. This information is not intended as a substitute for professional medical care. Always follow your healthcare professional's instructions. * Neida Garland - Chester Cuevas RN - 04/04/2025 10:24 AM EDT Images from the original note were not included. [id number] Tamsulosin Brand Name(s): Flomax??, Su?? (as a [...] be awakened, immediately call emergency services at 581. Symptoms of overdose may include: ? dizziness [...] of all of the prescription and nonprescription (nzxn-lap-vadmqix) medicines you are taking, as well as [...] or pharmacist about specific clinical use. The [employer] represents that the information provided hereunder was formulated with a reasonable standard of care, and in conformity with professional standards in the field. The [employer] makes no representations or warranties, express or implied, including, but not limited to, any implied warranty of merchantability and/or fitness for a particular purpose, with respect to such information and specifically disclaims all such warranties. Users are advised that decisions regarding drug therapy are complex medical decisions requiring the independent, informed decision of an appropriate health mall plant caretaker, and the information is provided for informational purposes only. The entire monograph for a drug should be reviewed for a thorough understanding of the drug's actions, uses and side effects. The [employer] does not endorse or recommend the use of any drug.The information is not a substitute for medical care. AHFS?? Patient Medication Information?. ?? Copyright, 2023. The [employer]??, [address], [address], [place], [place]. All Rights Reserved. Duplication for commercial use must be authorized by [facility]. Selected Revisions: October 28, 2017. AHFS?? Patient Medication Information?. ?? Copyright, 2024 * Chester Lyons RN - 04/04/2025 10:24 AM EDT Images from the original note were not included. [id number] Senna Brand Name(s): Black Draught??, Ex-Lax??, Baac's Castoria??, Nature's Remedy??, Perdiem Overnight Relief??, Senexon??, [...] and out of their sight and reach. [email or web address] Unneeded medications should be disposed of in [...] of all of the prescription and nonprescription (cbjs-sfc-ojnbfjb) medicines you are taking, as well as [...] or pharmacist about specific clinical use. The [employer] represents that the information provided hereunder was formulated with a reasonable standard of care, and in conformity with professional standards in the field. The [employer] makes no representations or warranties, express or implied, including, but not limited to, any implied warranty of merchantability and/or fitness for a particular purpose, with respect to such information and specifically disclaims all such warranties. Users are advised that decisions regarding drug therapy are complex medical decisions requiring the independent, informed decision of an appropriate health mall plant caretaker, and the information is provided for informational purposes only. The entire monograph for a drug should be reviewed for a thorough understanding of the drug's actions, uses and side effects. The [employer] does not endorse or recommend the use of any drug.The information is not a substitute for medical care. AHFS?? Patient Medication Information?. ?? Copyright, 2023. The [employer]??, [address] [facility], [address], [place], [place]. All Rights Reserved. Duplication for commercial use must be authorized by [facility]. Selected Revisions: April 02, 2024. AHFS?? Patient Medication Information?. ?? Copyright, 2024 * Chester Lyons RN - 04/04/2025 10:24 AM EDT Images from the original note were not included. [id number] Polyethylene Glycol 3350 Brand Name(s): MiraLax?? PEG [...] be awakened, immediately call emergency services at 975. Symptoms of overdose may include: ? diarrhea ? thirst ? confusion ? seizure What OTHER INFORMATION should I know? Keep all appointments with your doctor. Do not let anyone else take your medication. Ask your pharmacist any questions you have about refilling your prescription. It is important for you to keep a written list of all of the prescription and nonprescription (ghfk-zke-rtwtgai) medicines you are taking, as well as [...] or pharmacist about specific clinical use. The [employer] represents that the information provided hereunder was formulated with a reasonable standard of care, and in conformity with professional standards in the field. The [employer] makes no representations or warranties, express or implied, including, but not limited to, any implied warranty of merchantability and/or fitness for a particular purpose, with respect to such information and specifically disclaims all such warranties. Users are advised that decisions regarding drug therapy are complex medical decisions requiring the independent, informed decision of an appropriate health mall plant caretaker, and the information is provided for informational purposes only. The entire monograph for a drug should be reviewed for a thorough understanding of the drug's actions, uses and side effects. The [employer] does not endorse or recommend the use of any drug.The information is not a substitute for medical care. AHFS?? Patient Medication Information?. ?? Copyright, 2023. [employer]??, [address], [address], [place], [place]. All Rights Reserved. Duplication for commercial use must be authorized by [facility]. Selected Revisions: December 27, 2015. AHFS?? Patient Medication Information?. ?? Copyright, 2024 * Neida Garland - Chester Cuevas RN - 04/04/2025 10:24 AM EDT 1087 Oxycodone Oral Tablet, Immediate Release Brand Names: Oxaydo, Roxicodone What is this medicine? Oxycodone (no-l-TXP-done) is an opioid pain reliever. It is used to treat moderate to severe pain. What should I tell my health care provider before I take this medicine? They need to know if you have any of these conditions: ? [place]'s disease ? Brain tumor or head injury [...] a special medication guide each time you medicinal plant picker this medicine. ? Overdosage: Taking too [...] should report to your doctor or health mall plant caretaker as soon as possible: ? allergic reactions [...] attention (report to your doctor or health mall plant caretaker if they continue or are bothersome): ? constipation ? dry mouth ? itching ? nausea, vomiting ? upset stomach This list may not describe all possible side effects. Call your doctor for medical advice about side effects. You may report side effects to FDA at 2-357-HWY-3923. Where should I keep my medicine? This [...] location. To find a disposal location, visit [facility]/[place]. If you cannot take unused medicine to [...] from the original note were not included. [id number] Methocarbamol Brand Name(s): Robaxin??; also available generically [...] be awakened, immediately call emergency services at 603. What OTHER INFORMATION should I know? Keep all appointments with your doctor. Do not let anyone else take your medication. Ask your pharmacist any questions you have about refilling your prescription. It is important for you to keep a written list of all of the prescription and nonprescription (mhra-gnq-qqfxgrl) medicines you are taking, as well as [...] or pharmacist about specific clinical use. The [employer] represents that the information provided hereunder was formulated with a reasonable standard of care, and in conformity with professional standards in the field. The [employer] makes no representations or warranties, express or implied, including, but not limited to, any implied warranty of merchantability and/or fitness for a particular purpose, with respect to such information and specifically disclaims all such warranties. Users are advised that decisions regarding drug therapy are complex medical decisions requiring the independent, informed decision of an appropriate health mall plant caretaker, and the information is provided for informational purposes only. The entire monograph for a drug should be reviewed for a thorough understanding of the drug's actions, uses and side effects. The [employer] does not endorse or recommend the use of any drug.The information is not a substitute for medical care. AHFS?? Patient Medication Information?. ?? Copyright, 2023. The [employer]??, [address], [address], [place], [place]. All Rights Reserved. Duplication for commercial use must be authorized by [facility]. Selected Revisions: May 28, 2017. AHFS?? Patient Medication Information?. ?? Copyright, 2024 * Chester Lyons RN - 04/04/2025 10:23 AM EDT Images from the original note were not included. [id number] Acetaminophen Brand Name(s): Actamin??, Feverall??, Panadol??, Tempra Quicklets??, Tylenol??, Dayquil?? (as a combination product containing Acetaminophen, Dextromethorphan, Pseudoephedrine), NyQuil Cold/Flu Relief?? (as a combination product containing Acetaminophen, Dextromethorphan, Doxylamine), Percocet?? (as a combination product containing Acetaminophen, Oxycodone) APAP, S-vlmprd-vddz-aminophenol, Paracetamol ?? This branded product is no [...] measuring cup or syringe provided by the de ionizer operator to measure each dose of the [...] and out of their sight and reach. [email or web address] Unneeded medications should be disposed of in [...] of all of the prescription and nonprescription (jlfx-qgm-dfzgkuf) medicines you are taking, as well as [...] or pharmacist about specific clinical use. The [employer] represents that the information provided hereunder was formulated with a reasonable standard of care, and in conformity with professional standards in the field. The [employer] makes no representations or warranties, express or implied, including, but not limited to, any implied warranty of merchantability and/or fitness for a particular purpose, with respect to such information and specifically disclaims all such warranties. Users are advised that decisions regarding drug therapy are complex medical decisions requiring the independent, informed decision of an appropriate health mall plant caretaker, and the information is provided for informational purposes only. The entire monograph for a drug should be reviewed for a thorough understanding of the drug's actions, uses and side effects. The [employer] does not endorse or recommend the use of any drug.The information is not a substitute for medical care. AHFS?? Patient Medication Information?. ?? Copyright, 2023. The [employer]??, [address], [address], [place], [place]. All Rights Reserved. Duplication for commercial use must be authorized by [facility]. Selected Revisions: June 28, 2023. AHFS?? Patient Medication Information?. ?? Copyright, 2024 * Discharge Summary - FrankEverett RenettaDO - 04/04/2025 9:13 AM EDT Hospitalization Admit Date/Time: 03/29/2025 9:43 AM Admitting Attending: Ирина Lopez Discharge Date: 04/04/2025 Discharge Attending Physician: Ирина Lopez MD PCP name and Address: Casa Phillips MD [address] [place] [address] / [facility] [id number] Referring provider name and address: No referring [...] Your Medications These medications were sent to [facility] - [place], [place] - [address] [email or web address] [address] [employer] [facility] [address] [place] [id number] acetaminophen 500 MG tablet methocarbamol 500 MG [...] Clinic discharge # - For urgent questions/concerns: [facility] hotline: , option 4 - ask for the thoracic surgeon agricultural extension specialist. Outpatient Follow-Up Future Appointments Date Time Provider [...] Mobility Exam: Supine to Sit Level of [place]: Stand-by assist Physical/Nonphysical Assist: Set-up required, HOB elevated Assistive Device: Bed rails Transfers Transfer Exam: Sit to stand Level of [place]: Stand-by assist Physical/Nonphysical Assist: Verbal Cues, Nonverbal cues (demo/gestures), Minimal cues Assistive Device: Rollator Transfer Exam: Stand to Sit Level of [place]: Stand-by assist Physical/Nonphysical Assist: Verbal Cues, Nonverbal [...] to areas of treatment space. Standardized Assessments [facility] 6-Clicks Mobility Assessment Difficulty patient has [...] 3-5 steps with a railing?: A little [facility] 6-Clicks Mobility Assessment Total : 21 [...] for assistance with DME. Referrals sent to [facility] for Rollator to be delivered to bedside today. * Progress Notes - Patricia Torres N - 04/03/2025 11:49 AM EDT Occupational Therapy Treatment Patient Name: Michelle Feliz Jr. Today's Date: 04/03/2025 OT Discharge Recommendations: Home with 24 hour assistance Equipment Recommended: Rollator Subjective Pt consent to tx Participants in Care Family/Caregiver Present: Yes Family/Caregiver: Adult Daughter Profiling Machine Set Up Operator Tool: Not Applicable Presentation Oxygen Therapy: None (Room [...] Mobility Exam: Supine to Sit Level of [place]: Stand-by assist Physical/Nonphysical Assist: Set-up required, HOB elevated Transfers Transfer Exam: Sit to stand Level of [place]: Stand-by assist Physical/Nonphysical Assist: Verbal Cues, Nonverbal cues (demo/gestures), Minimal cues Assistive Device: Rollator Transfer Exam: Stand to Sit Level of [place]: Stand-by assist Physical/Nonphysical Assist: Verbal Cues, Nonverbal [...] reaches 6. Pt verbalizes understanding. Standardized Assessments [facility] 6-Click Daily Activities Help from Other: Don/Doff Regular Lower Body Clothings: Little Help From Other: Bathing: Little Help From Other: Toileting: Little Help From Other: Don/Doff Upper Body Clothings: Little Help From Other: Grooming: Little Help From Other: Eating Meals: None [facility] 6 Click - Daily Activities Score: 19 [...] from the original note were not included. [facility] Department of Surgery Section of [...] disease, without long-term current use of insulin ([facility]) Microalbuminuria Tobacco use disorder Second [...] Mobility Bed Mobility Exam: Scooting/Bridging Level of [place]: Minimum assist (75% patient's effort) Physical/Nonphysical Assist: Verbal Cues, Nonverbal cues (demo/gestures), Minimal cues Bed Mobility Exam: Supine to Sit Level of [place]: Minimum assist (75% patient's effort) Physical/Nonphysical Assist: Verbal Cues, Nonverbal cues (demo/gestures), HOB elevated Bed Mobility Exam: Sit to Supine Level of [place]: Minimum assist (75% patient's effort) Physical/Nonphysical Assist: Verbal Cues, Minimal cues Transfers Transfer Exam: Sit to stand Level of [place]: Minimum assist (75% patient's effort) Physical/Nonphysical Assist: Verbal Cues, Nonverbal cues (demo/gestures), Minimal cues Assistive Device: Rollator Transfer Exam: Stand to Sit Level of [place]: Minimum assist (75% patient's effort) Physical/Nonphysical Assist: [...] Level of Mobility Ambulatory- household only Mobility [place] Independent gait without device History of Falls [...] Ambulating in-room distances since last PT treatment. Profiling Machine Set Up Operator Tool (if applicable) OBJECTIVE & INTERVENTIONS PAIN Pt was without complaints of pain throughout the PT treatment. DELIRIUM SCREENING Curtis Agitation Sedation Scale (RASS): Alert and calm Feature 3: Altered Level of Consciousness: Negative THERAPEUTIC ACTIVITY Treatment Minutes 25 BED MOBILITY Level of [place] Physical/Non- physical Assist Adaptive Equipment Utilized Scooting/ [...] with supine <> sit TRANSFERS Level of [place] Physical/Non- physical Assist Adaptive Equipment Utilized Sit to Stand Minimum assist (75% patient's effort) Verbal Cues, Nonverbal cues (demo/gestures), Minimal cues Rollator Stand to sit Minimum assist (75% patient's effort) Verbal Cues, Nonverbal cues (demo/gestures), Minimal cues Rollator Interventions PT cued for proper hand placement and forward trunk lean prior to completing STS transfers BALANCE Postural Appearance Posture: Stooped posture Level of [place] Balance Support Interventions Static Sit Standby assist [...] Left upper extremity support AMBULATION Level of [place] Distance Adaptive Equipment Utilized Ambulation Contact guard [...] falling while progressing pt's distances Standardized Assessments [facility] 6-Clicks Mobility Assessment Difficulty patient has [...] climbing 3-5 steps with a railing?: Unable [facility] 6-Clicks Mobility Assessment Total : 16 [...] from the original note were not included. [facility] Department of Surgery Section of [...] disease, without long-term current use of insulin ([facility]) Microalbuminuria Tobacco use disorder Second [...] disease, without long-term current use of insulin ([facility]) Anemia Electrolyte abnormality Plan: - Keep [...] from the original note were not included. [facility] Department of Surgery Section of [...] Michelle Feliz Jr. 79 y.o. male CSN: [id number] Admission: 03/29/2025 9:43 AM Primary Problem: Non-small cell cancer of left lung (CMS/HCC) [employer] Unix System Administrator reviewed chart and spoke with the patient at bedside to complete this Initial Case Management Assessment. PCP: Casa Phillips MD Emergency Contact: Extended Emergency Contact Information Primary Emergency Contact: Elliot Feliz Relation: Son Profiling Machine Set Up Operator Tool needed? No Secondary Emergency Contact: Nora Feliz Relation: Daughter Profiling Machine Set Up Operator Tool needed? No Insurance: Primary Visit Coverage Payer Plan Sponsor Code Group Number Group Name [facility] [employer] [id number] Primary Visit Coverage Subscriber Subscriber ID Subscriber Name Subscriber N Subscriber Address [id number] MICHELLE FELIZ JR [phone] [place] [address] Patient information: Primary Caregiver: Self Support System: Immediate family Daily Living Activities: Functional Status: Independent Living Arrangements: Children Type of Residence: Private residence, Single Level [address] [place] [address] Current DME: Equipment Currently Used at Home: [...] DME Provider: n/a Living Will/Advance Directive/Power of Dinker /Guardian: Have you reviewed your Advance Directive [...] Patient has Anthem Medicare insurance and uses [facility]. Family will assist and transport at [...] from the original note were not included. [facility] Department of Surgery Section of [...] Level of Mobility: Ambulatory- household only Mobility [place]: Independent gait without device History of Falls: [...] Mobility Bed Mobility Exam: Scooting/Bridging Level of [place]: Maximum assist (25% patient's effort) (to scoot to EOB while seated) Physical/Nonphysical Assist: Verbal Cues, Nonverbal cues (demo/gestures) Bed Mobility Exam: Supine to Sit Level of [place]: Maximum assist (25% patient's effort) Physical/Nonphysical Assist: Verbal Cues, Nonverbal cues (demo/gestures), Additional assist utilized for safety, HOB elevated Transfers Transfer Exam: Sit to stand Level of [place]: Moderate assist (50% patient's effort) Physical/Nonphysical Assist: Verbal Cues, Nonverbal cues (demo/gestures), Additional assist utilized for safety Transfer Exam: Stand to Sit Level of [place]: Moderate assist (50% patient's effort) Physical/Nonphysical Assist: [...] session. Standardized Assessments Standardized Assessments Standardized Assessments: [facility] 6-Clicks Mobility Assessment [facility] 6-Clicks Mobility Assessment Difficulty patient has [...] climbing 3-5 steps with a railing?: Unable [facility] 6-Clicks Mobility Assessment Total : 11 [...] Level of Mobility: Ambulatory- household only Mobility [place]: Independent gait without device History of Falls: [...] Mobility Bed Mobility Exam: Scooting/Bridging Level of [place]: Maximum assist (25% patient's effort) (to scoot to EOB while seated) Physical/Nonphysical Assist: Verbal Cues, Nonverbal cues (demo/gestures) Bed Mobility Exam: Supine to Sit Level of [place]: Maximum assist (25% patient's effort) Physical/Nonphysical Assist: Verbal Cues, Nonverbal cues (demo/gestures), Additional assist utilized for safety, HOB elevated Transfers Transfer Exam: Sit to stand Level of [place]: Moderate assist (50% patient's effort) Physical/Nonphysical Assist: Verbal Cues, Nonverbal cues (demo/gestures), Additional assist utilized for safety Transfer Exam: Stand to Sit Level of [place]: Moderate assist (50% patient's effort) Physical/Nonphysical Assist: [...] continued education to improve carryover. Standardized Assessments [facility] 6-Click Daily Activities Help from Other: Don/Doff Regular Lower Body Clothings: A lot Help From Other: Bathing: A lot Help From Other: Toileting: A lot Help From Other: Don/Doff Upper Body Clothings: Little Help From Other: Grooming: Little Help From Other: Eating Meals: None [facility] 6 Click - Daily Activities Score: 16 [...] from the original note were not included. [facility] Department of Surgery Section of [...] PM EDT Operative Note Date: 03/29/25 Location: [facility] [facility] Name: Michelle Feliz , : 1945, Diagnoses: Pre-op Diagnosis Non-small cell cancer of left lung (CMS/HCC) Post-op Diagnosis Non-small cell cancer of left lung (CMS/HCC) Procedure(s): Bronchoscopy, left VATS converted to thoracotomy, left upper lobectomy, mediastinal lymph node dissection, intercostal nerve blocks Attending Surgeon(s): Ирина Durán - Primary Reeler Operator(s): * Carl Hamlin MD - Resident - [...] spaces under direct visualization. A single 24 Hebrew chest tube was placed through the camera [...] responses Results Review {Vanishing Link Review Results :[id number] I have reviewed the latest lab and [...] photo ID, along with power of attorney general, guardianship or advanced directives if applicable Do [...] Cassidy APRN - 03/18/2025 8:35 AM EDT [facility] Michelle Feliz Jr. is a 79 [...] Upcoming Encounters Date Type Department Care Team ([facility] Contact Info) Description 07/06/2025 10:40 AM EDT Office Visit Pav [facility] Head[facility] Neck & Respiratory [address] [facility], [address]nd [place] [address] Nikolai Naranjo MD [address] [facility] Lorin Avila [facility] [address] [place] [address] (work) documented as of this encounter Procedures [...] Non-small cell cancer of left lung (CMS/HCC) CO THORACOSCOPY SURG LOBECTOMY 03/29/2025 1:24 PM EDT [...] increased. Aerated lungs are clear. Procedure Note Dagobetro Forrester MD - 04/20/2025 CLINICAL INDICATION: Eval [...] Comment 04/04/2025 8:36 AM EDT [facility] [employer] Supervisor ID Sandy Kramer 04/04/2025 8:36 AM EDT [facility]ARE [facility] Device ID [id number] 04/04/2025 8:36 AM EDT [facility] Specimen Type POC Capillary 04/04/2025 8:36 AM EDT [facility] Blood Capillary blood specimen / Unknown 04/04/2025 8:34 AM EDT 04/04/2025 8:36 AM EDT Ирина Lopez MD LAB POINT OF CARE TE ST DOCKED DEVICE UNSOLICITED RESULTS Final Result [facility] [address] [place] [address] * XR Chest 1 View (04/04/2025 5:20 [...] MD on 04/04/2025 10:20 AM Scarlet Gamboa [employer] IMG XR PROCEDURES Final Resul t * [...] R esult [facility] [address] [place] [address] * (ABNORMAL) Magnesium, Plasma (04/04/2025 2:19 AM EDT) Magnesium, Plasma 1.8(L) 1.9 - 2.4 mg/dL 04/04/2025 2:53 AM EDT [facility] Blood Venous blood specimen / Unknown Venipuncture / Unknown 04/04/2025 2:19 AM EDT 04/04/2025 2:24 AM EDT us Ирина Lopez MD LAB BLOOD ORDERABLES Final R esult [facility] [address] [place] [address] * (ABNORMAL) CBC W/O Differential (04/04/2025 2:19 [...] ORDERABLES Final R esult Performing Organization Address City/[facility]/ZIP Co de Phone Number [facility] [address] [place] [address] * (ABNORMAL) POCT glucose meter (04/03/2025 8:25 [...] for testing. Comment 04/03/2025 8:28 PM EDT [facility] [employer] Supervisor ID Obdulio Navarro 04/03/2025 8:28 PM EDT [facility] Device ID [id number] 04/03/2025 8:28 PM EDT [facility] Specimen Type POC Capillary 04/03/2025 8:28 PM EDT [facility] Blood Capillary blood specimen / Unknown 04/03/2025 8:25 PM EDT 04/03/2025 8:28 PM EDT us Ирина Lopez MD LAB POINT OF CARE TE ST DOCKED DEVICE UNSOLICITED RESULTS Final Result Performing Organization Address City/[facility] Co de Phone Number [facility] [address] [place] [address] * (ABNORMAL) POCT glucose meter (04/03/2025 5:27 [...] Comment 04/03/2025 5:29 PM EDT [facility] [employer] Supervisor ID Anayeli Castro 025 5:29 PM EDT [facility]ARE [facility] Device ID [id number] 04/03/2025 5:29 PM EDT [facility] Specimen Type POC Capillary 04/03/2025 5:29 PM EDT [facility] Blood Capillary blood specimen / Unknown 04/03/2025 5:27 PM EDT 04/03/2025 5:29 PM EDT us Ирина Lopez MD LAB POINT OF CARE TE ST DOCKED DEVICE UNSOLICITED RESULTS Final Result Performing Organization Address City/State/[facility] Co de Phone Number [facility] [address] [place], [place] [id number] * XR Chest 1 View (04/03/2025 1:09 [...] Comment 04/03/2025 12:17 PM EDT [facility] [employer] Supervisor ID Anayeli Castro 025 12:17 PM EDT [facility] Device ID [id number] 04/03/2025 12:17 PM EDT [facility] Specimen Type POC Capillary 04/03/2025 12:17 PM EDT [facility] Blood Capillary blood specimen / Unknown 04/03/2025 12:15 PM EDT 04/03/2025 12:17 PM EDT Ирина Lopez MD LAB POINT OF CARE TE ST DOCKED DEVICE UNSOLICITED RESULTS Final Result [facility] [address] [place] [address] * (ABNORMAL) POCT glucose meter (04/03/2025 8:46 [...] Comment 04/03/2025 8:48 AM EDT [facility] [employer] Supervisor ID Anayeli Castro 025 8:48 AM EDT [facility] Device ID [id number] 04/03/2025 8:48 AM EDT [facility] Specimen Type POC Capillary 04/03/2025 8:48 AM EDT [facility] Blood Capillary blood specimen / Unknown 04/03/2025 8:46 AM EDT 04/03/2025 8:48 AM EDT us Ирина Lopez MD LAB POINT OF CARE TE ST DOCKED DEVICE UNSOLICITED RESULTS Final Result Performing Organization Address City/State/[facility] de Phone Number [facility]ARE LAB [address] [place] [address] * XR Chest 1 View (04/03/2025 5:53 [...] on 04/03/2025 9:52 AM Scarlet A Cooper [employer] IMG XR PROCEDURES Final Resul t * [...] ORDERABLES Final R esult Performing Organization Address City/[facility]/ZIP Co de Phone Number [facility] [address] [place] [address] * Magnesium, Plasma (04/03/2025 3:45 AM EDT) Pathologist [facility] Magnesium, Plasma 2.0 1.9 - 2.4 mg/dL 04/03/2025 4:24 AM EDT [facility] Blood Venous blood specimen / Unknown Venipuncture / Unknown 04/03/2025 3:45 AM EDT 04/03/2025 3:54 AM EDT Ирина Lopez MD LAB BLOOD ORDERABLES Final R esult Performing Organization Address City/[facility]/ZIP Co de Phone Number [facility] [address] [place] [address] * (ABNORMAL) CBC W/O Differential (04/03/2025 3:45 [...] R esult [facility] [address] [place] [address] * (ABNORMAL) POCT glucose meter (04/02/2025 8:16 [...] Comment 04/02/2025 8:20 PM EDT [facility] [employer] Supervisor ID Jil Ruiz 8:20 PM EDT [facility] Device ID [id number] 04/02/2025 8:20 PM EDT [facility] Specimen Type POC Capillary 04/02/2025 8:20 PM EDT [facility] Blood Capillary blood specimen / Unknown 04/02/2025 8:16 PM EDT 04/02/2025 8:20 PM EDT us Ирина Lopez MD LAB POINT OF CARE TE ST DOCKED DEVICE UNSOLICITED RESULTS Final Result Performing Organization Address City/[facility]/ZIP Co de Phone Number [facility] [address] [place] [address] * (ABNORMAL) POCT glucose meter (04/02/2025 5:20 [...] Comment 04/02/2025 5:22 PM EDT [facility] [employer] Supervisor ID Kenn Cabrera 04/02/2025 5:22 PM EDT [facility] Device ID [id number] 04/02/2025 5:22 PM EDT [facility] Specimen Type POC Capillary 04/02/2025 5:22 PM EDT [facility] Blood Capillary blood specimen / Unknown 04/02/2025 5:20 PM EDT 04/02/2025 5:22 PM EDT us Ирина Lopez MD LAB POINT OF CARE TE ST DOCKED DEVICE UNSOLICITED RESULTS Final Result Performing Organization Address City/[facility]/ZIP Co de Phone Number [facility] [address] [place] [address] * (ABNORMAL) CBC W/O Differential (04/02/2025 3:02 [...] 04/02/2025 3:20 PM EDT us Scarlet Gamboa [employer] LAB BLOOD ORDERABLES Final Re sult [facility] [address] [place] [address] * Transfuse RBC (04/02/2025 2:53 PM EDT) Scarlet Gamboa APRN BLOOD TRANSFUSION ORDERABLES Final Result * Transfuse RBC: 2 Units (04/02/2025 2:53 PM EDT) Scarlet Gamboa APRN BLOOD TRANSFUSION ORDERABLES Edited Result - Final * (ABNORMAL) POCT glucose meter (04/02/2025 12:28 PM EDT) [facility] POCT Glucose 149(H) 74 - 99 [...] Comment 04/02/2025 12:30 PM EDT [facility] [employer] Supervisor ID Kenn Cabrera 04/02/2025 12:30 PM EDT [facility] Device ID [id number] 04/02/2025 12:30 PM EDT [facility] Specimen Type POC Capillary 04/02/2025 12:30 PM EDT [facility] Blood Capillary blood specimen / Unknown 04/02/2025 12:28 PM EDT 04/02/2025 12:30 PM EDT Ирина Lopez MD LAB POINT OF CARE TE ST DOCKED DEVICE UNSOLICITED RESULTS Final Result [facility] [address] [place] [address] * Transfuse RBC (04/02/2025 12:16 PM EDT) [...] Comment 04/02/2025 8:33 AM EDT [facility] [employer] Supervisor ID NathenMartha schmitz 04/02/2025 8:33 AM EDT [facility] Device ID [id number] 04/02/2025 8:33 AM EDT [facility] Specimen Type POC Capillary 04/02/2025 8:33 AM EDT [facility] Blood Capillary blood specimen / Unknown 04/02/2025 8:31 AM EDT 04/02/2025 8:33 AM EDT us Ирина Lopez MD LAB POINT OF CARE TE ST DOCKED DEVICE UNSOLICITED RESULTS Final Result [facility] [address] [place] [address] * Prepare Leukocyte Reduced RBC: 2 Units (04/02/2025 7:58 AM EDT) Product Code [id number] [facility] BLOO D BANK Dispense Status Transfused BLOOD BANK Blood Expiration Date [id number] BLOOD BANK Unit Number [id number] CH B LOOD BANK Product Blood Type 6200 CH BLOOD BANK Blood Type A+ CH BLOOD BANK Crossmatch Compatible CH BLOOD BANK Product Code [id number] CH BLOO D BANK Dispense Status Transfused CH BLOOD BANK Blood Expiration Date [id number] BLOOD BANK Unit Number [id number] CH B LOOD BANK Product Blood Type 6200 CH BLOOD BANK Blood Type A+ CH BLOOD BANK Crossmatch Compatible BLOOD BANK Other us Scarlet Gamboa APRN BLOOD BANK PRODUCT ORDERABLES Final Result Performing Organization Address [facility] de Phone Number BLOOD BANK [address] [place] [address], [place] * Type and Screen (04/02/2025 6:36 [...] Organization Address [facility] Co de Phone Number BLOOD BANK [address] [place] [address], [place] * XR Chest 1 View (04/02/2025 [...] R esult [facility] [address] [place] [address] * Magnesium, Plasma (04/02/2025 4:32 AM EDT) Magnesium, Plasma 1.9 1.9 - 2.4 mg/dL 04/02/2025 5:51 AM EDT [facility] Blood Venous blood specimen / Unknown Venipuncture / Unknown 04/02/2025 4:32 AM EDT 04/02/2025 5:20 AM EDT us Ирина Lopez MD LAB BLOOD ORDERABLES Final R esult [facility] [address] [place] [address] * (ABNORMAL) CBC W/O Differential (04/02/2025 4:32 [...] 5:31 AM EDT [facility] Blood Venous blood specimen / Unknown Venipuncture / Unknown 04/02/2025 4:32 AM EDT 04/02/2025 5:20 AM EDT us Ирина Lopez MD LAB BLOOD ORDERABLES Final R esult Performing Organization Address City/[facility]/ZIP Co de Phone Number [facility] [address] [place] [address] * (ABNORMAL) POCT glucose meter (04/01/2025 8:14 [...] Comment 04/01/2025 8:16 PM EDT [facility] [employer] Supervisor ID Jil Ruiz 8:16 PM EDT [facility] Device ID [id number] 04/01/2025 8:16 PM EDT [facility] Specimen Type POC Capillary 04/01/2025 8:16 PM EDT [facility] Blood Capillary blood specimen / Unknown 04/01/2025 8:14 PM EDT 04/01/2025 8:16 PM EDT us Ирина Lopez MD LAB POINT OF CARE TE ST DOCKED DEVICE UNSOLICITED RESULTS Final Result Performing Organization Address City/[facility]/ZIP Co de Phone Number [facility] [address] [place] [address] * (ABNORMAL) POCT glucose meter (04/01/2025 5:26 [...] 04/01/2025 5:29 PM EDT [facility] [employer] Supervisor ID Kenn Cabrera 04/01/2025 5:29 PM EDT [facility] Device ID [id number] 04/01/2025 5:29 PM EDT [facility] Specimen Type POC Capillary 04/01/2025 5:29 PM EDT [facility] Blood Capillary blood specimen / Unknown 04/01/2025 5:26 PM EDT 04/01/2025 5:29 PM EDT Ирина Lopez MD LAB POINT OF CARE TE ST DOCKED DEVICE UNSOLICITED RESULTS Final Result Performing Organization Address City/State/[facility] Co de Phone Number [facility] [address] [place] [address] * (ABNORMAL) POCT glucose meter (04/01/2025 12:49 PM EDT) [facility] POCT Glucose 162(H) 74 - 99 [...] 04/01/2025 12:51 PM EDT [facility] [employer] Supervisor ID Kenn Cabrera 04/01/2025 12:51 PM EDT [facility] Device ID [id number] 04/01/2025 12:51 PM EDT [facility] Specimen Type POC Capillary 04/01/2025 12:51 PM EDT [facility] Blood Capillary blood specimen / Unknown 04/01/2025 12:49 PM EDT 04/01/2025 12:51 PM EDT Ирина Lopez MD LAB POINT OF CARE TE ST DOCKED DEVICE UNSOLICITED RESULTS Final Result Performing Organization Address City/[facility] Co de Phone Number [facility] [address] [place] [address] * (ABNORMAL) POCT glucose meter (04/01/2025 8:43 [...] 04/01/2025 8:45 AM EDT [facility] [employer] Supervisor ID Kenn Cabrera 04/01/2025 8:45 AM EDT [facility] Device ID [id number] 04/01/2025 8:45 AM EDT [facility] Specimen Type POC Capillary 04/01/2025 8:45 AM EDT [facility] Blood Capillary blood specimen / Unknown 04/01/2025 8:43 AM EDT 04/01/2025 8:45 AM EDT Ирина Lopez MD LAB POINT OF CARE TE ST DOCKED DEVICE UNSOLICITED RESULTS Final Result Performing Organization Address City/[facility] Co de Phone Number [facility] [address] [place] [address] * XR Chest 1 View (04/01/2025 5:41 [...] ORDERABLES Final R esult Performing Organization Address City/[facility]/ZIP Co de Phone Number [facility] [address] [place] [address] * Magnesium, Plasma (04/01/2025 2:12 AM EDT) Magnesium, Plasma 2.4 1.9 - 2.4 mg/dL 04/01/2025 4:24 AM EDT [facility] Blood Venous blood specimen / Unknown Venipuncture / Unknown 04/01/2025 2:12 AM EDT 04/01/2025 3:21 AM EDT us Ирина Lopez MD LAB BLOOD ORDERABLES Final R esult Performing Organization Address City/[facility]/ZIP Co de Phone Number [facility] [address] [place] [address] * (ABNORMAL) CBC W/O Differential (04/01/2025 2:12 [...] R esult [facility] [address] [place] [address] * (ABNORMAL) POCT glucose meter (03/31/2025 8:19 PM EDT) [facility] POCT Glucose 237(H) 74 - 99 [...] Comment 03/31/2025 8:21 PM EDT [facility] [employer] Supervisor ID Jil Ruiz 8:21 PM EDT [facility] LAB Device ID [id number] 03/31/2025 8:21 PM EDT [facility] Specimen Type POC Capillary 03/31/2025 8:21 PM EDT [facility] Blood Capillary blood specimen / Unknown 03/31/2025 8:19 PM EDT 03/31/2025 8:21 PM EDT Ирина Lopez MD LAB POINT OF CARE TE ST DOCKED DEVICE UNSOLICITED RESULTS Final Result [facility] [address] [place] [address] * (ABNORMAL) POCT glucose meter (03/31/2025 5:24 PM EDT) [facility] POCT Glucose 194(H) 74 - 99 [...] 03/31/2025 5:26 PM EDT [facility] [employer] Supervisor ID Kenn Cabrera 03/31/2025 5:26 PM EDT [facility] Device ID [id number] 03/31/2025 5:26 PM EDT [facility] Specimen Type POC Capillary 03/31/2025 5:26 PM EDT [facility] Blood Capillary blood specimen / Unknown 03/31/2025 5:24 PM EDT 03/31/2025 5:26 PM EDT us Ирина Lopez MD LAB POINT OF CARE TE ST DOCKED DEVICE UNSOLICITED RESULTS Final Result Performing Organization Address City/State/[facility] Co de Phone Number [facility]ARE [facility] [address] [place] [address] * Transfuse RBC (03/31/2025 3:56 PM EDT) [...] on 03/31/2025 1:30 PM us Scarlet Gamboa [employer] IMG XR PROCEDURES Final Resul t * [...] for testing. Comment 03/31/2025 12:34 PM EDT [facility] [employer] Supervisor ID Kenn Cabrera 03/31/2025 12:34 PM EDT [facility] Device ID [id number] 03/31/2025 12:34 PM EDT [facility] Specimen Type POC Capillary 03/31/2025 12:34 PM EDT [facility] Blood Capillary blood specimen / Unknown 03/31/2025 12:31 PM EDT 03/31/2025 12:34 PM EDT us Ирина Lopze MD LAB POINT OF CARE TE ST DOCKED DEVICE UNSOLICITED RESULTS Final Result [facility] [address] [place] [address] * (ABNORMAL) POCT glucose meter (03/31/2025 9:08 [...] Comment 03/31/2025 9:09 AM EDT [facility] [employer] Supervisor ID Kenn Cabrera 03/31/2025 9:09 AM EDT [facility] Device ID [id number] 03/31/2025 9:09 AM EDT [facility] Specimen Type POC Capillary 03/31/2025 9:09 AM EDT [facility] Blood Capillary blood specimen / Unknown 03/31/2025 9:08 AM EDT 03/31/2025 9:09 AM EDT us Ирина Lopez MD LAB POINT OF CARE TE ST DOCKED DEVICE UNSOLICITED RESULTS Final Result Performing Organization Address City/[facility] Co de Phone Number [facility] [address] [place] [address] * Prepare Leukocyte Reduced RBC: 1 Units (03/31/2025 9:02 AM EDT) [facility] Signature Product Code [id number] CH BLOO D BANK Dispense Status Transfused BLOOD BANK Blood Expiration Date [id number] BLOOD BANK Unit Number [id number] CH B LOOD BANK Product Blood Type 6200 BLOOD BANK Blood Type A+ BLOOD BANK Crossmatch Compatible BLOOD BANK Other us Scarlet Gamboa APRN BLOOD BANK PRODUCT ORDERABLES Final Result Performing Organization Address [facility] Co de Phone Number BLOOD BANK [address] [place] [address], * XR Chest 1 View (03/31/2025 6:04 [...] EDT [facility] BUN/Creatinine Ratio 03/31/2025 3:13 AM EDT [facility] [...] ORDERABLES Final R esult Performing Organization Address City/[facility]/ZIP Co de Phone Number [facility] [address] [place] [address] * (ABNORMAL) Magnesium, Plasma (03/31/2025 2:22 AM EDT) Magnesium, Plasma 3.1(H) 1.9 - 2.4 mg/dL 03/31/2025 3:13 AM EDT [facility] Blood Venous blood specimen / Unknown Venipuncture / Unknown 03/31/2025 2:22 AM EDT 03/31/2025 2:41 AM EDT Ирина Lopez MD LAB BLOOD ORDERABLES Final R esult [facility] [address] [place] [address] * (ABNORMAL) CBC W/O Differential (03/31/2025 2:22 [...] esult [facility] [address] [place] [address] * (ABNORMAL) POCT glucose meter (03/30/2025 8:28 [...] Comment 03/30/2025 8:30 PM EDT [facility] [employer] Supervisor ID Danuta Laughlin 03/30/2025 8:30 PM EDT [facility]ARE LAB Device ID [id number] 03/30/2025 8:30 PM EDT [facility] Specimen Type POC Capillary 03/30/2025 8:30 PM EDT [facility] Blood Capillary blood specimen / Unknown 03/30/2025 8:28 PM EDT 03/30/2025 8:30 PM EDT Ирина Lopez MD LAB POINT OF CARE TE ST DOCKED DEVICE UNSOLICITED RESULTS Final Result [facility] [address] [place] [address] * (ABNORMAL) POCT glucose meter (03/30/2025 5:20 PM EDT) [facility] POCT Glucose 148(H) 74 - 99 mg/dL [...] 03/30/2025 5:21 PM EDT [facility] [employer] Supervisor ID Halima Ervin 03/30/20 5:21 PM EDT HEALTH[facility]ARE LAB Device ID [id number] 03/30/2025 5:21 PM EDT [facility] Specimen Type POC Capillary 03/30/2025 5:21 PM EDT [facility] Blood Capillary blood specimen / Unknown 03/30/2025 5:20 PM EDT 03/30/2025 5:21 PM EDT us Ирина Lopez MD LAB POINT OF CARE TE ST DOCKED DEVICE UNSOLICITED RESULTS Final Result [facility] [address] [place] [address] * XR Chest 1 View (03/30/2025 4:46 [...] on 03/30/2025 5:01 PM us Scarlet Gamboa [employer] IMG XR PROCEDURES Final Resul t * [...] Comment 03/30/2025 12:49 PM EDT [facility] [employer] Supervisor ID Cata Gibbs 12:49 PM EDT [facility] Device ID [id number] 03/30/2025 12:49 PM EDT [facility] Specimen Type POC Venous 03/30/2025 12:49 PM EDT [facility] Blood Venous blood specimen / Unknown 03/30/2025 12:48 PM EDT 03/30/2025 12:49 PM EDT us Ирина Lopez MD LAB POINT OF CARE TE ST DOCKED DEVICE UNSOLICITED RESULTS Final Result Performing Organization Address City/[facility]/ZIP Co de Phone Number [facility] [address] [place] [address] * (ABNORMAL) Magnesium, Plasma (03/30/2025 10:57 AM EDT) Magnesium, Plasma 3.1(H) 1.9 - 2.4 mg/dL 03/30/2025 11:49 AM EDT [facility] Blood Venous blood specimen / Unknown Venipuncture / Unknown 03/30/2025 10:57 AM EDT 03/30/2025 11:16 AM EDT us Scarlet Gamboa APRN LAB BLOOD ORDERABLES Final Re sult [facility] [address] [place] [address] * (ABNORMAL) Renal function panel (03/30/2025 10:57 [...] R esult [facility] [address] [place] [address] * (ABNORMAL) POCT glucose meter (03/30/2025 10:56 AM EDT) [facility] POCT Glucose 252(H) 74 - 99 mg/dL [...] 03/30/2025 11:00 AM EDT [facility] [employer] Supervisor ID Cata Gibbs 11:00 AM EDT [facility]ALTH[facility] Device ID [id number] 03/30/2025 11:00 AM EDT [facility] Specimen Type POC Venous 03/30/2025 11:00 AM EDT [facility] Blood Venous blood specimen / Unknown 03/30/2025 10:56 AM EDT 03/30/2025 11:00 AM EDT us Ирина Lopez MD LAB POINT OF CARE TE ST DOCKED DEVICE UNSOLICITED RESULTS Final Result Performing Organization Address City/State/[facility] Co de Phone Number [facility]ARE LAB [address] [place] [address] * (ABNORMAL) POCT glucose meter (03/30/2025 9:38 AM EDT) [facility] POCT Glucose 271(H) 74 - 99 [...] 03/30/2025 9:39 AM EDT [facility] [employer] Supervisor ID Cata Gibbs 9:39 AM EDT [facility]ALTH[facility] LAB Device ID [id number] 03/30/2025 9:39 AM EDT [facility] Specimen Type POC Venous 03/30/2025 9:39 AM EDT [facility] Blood Venous blood specimen / Unknown 03/30/2025 9:38 AM EDT 03/30/2025 9:39 AM EDT Ирина Lopez MD LAB POINT OF CARE TE ST DOCKED DEVICE UNSOLICITED RESULTS Final Result Performing Organization Address City/[facility] Co de Phone Number [facility]ALTH[facility]ARE LAB [address] [place] [address] * ECG Adult (03/30/2025 8:37 AM EDT) EKG DIAGNOSIS CLASS Abnormal MUSE ECG Ventricular Rate 81 BPM MUSE ECG Atrial Rate 81 BPM MUSE ECG CO Interval 170 ms MUSE ECG QRSD Interval 104 ms MUSE ECG QT Interval 416 ms MUSE ECG QTC Interval 483 ms MUSE ECG P [place] 39 degrees MUSE ECG R [place] -51 degrees MUSE ECG T Wave [place] -15 degrees MUSE ECG Diagnosis Poor data [...] Organization Address [facility] Co de Phone Number MUSE ECG * (ABNORMAL) POCT glucose meter (03/30/2025 8:10 AM EDT) Pathologist [facility] POCT Glucose 164(H) 74 - 99 mg/dL 03/30/2025 8:11 AM EDT [facility] Comment:Accuracy of a glucos [...] Comment 03/30/2025 8:11 AM EDT [facility] Con[employer] Fabricating Supervisor ID Cata Gibbs 8:11 AM EDT [facility]ALTH[facility]ARE LAB Device ID [id number] 03/30/2025 8:11 AM EDT [facility]ALTH[facility]ARE LAB Specimen Type POC Venous 03/30/2025 8:11 AM EDT [facility] Blood Venous blood specimen / Unknown 03/30/2025 8:10 AM EDT 03/30/2025 8:11 AM EDT us Ирина Lopez MD LAB POINT OF CARE TE ST DOCKED DEVICE UNSOLICITED RESULTS Final Result [facility] [address] [place] [address] * (ABNORMAL) Renal function panel (03/30/2025 4:05 [...] ORDERABLES Final R esult Performing Organization Address City/[facility]/ZIP Co de Phone Number [facility] [address] [place] [address] * (ABNORMAL) Magnesium (03/30/2025 4:05 AM EDT) Magnesium, Plasma 1.4(L) 1.9 - 2.4 mg/dL 03/30/2025 4:40 AM EDT [facility] Blood Arterial blood specimen / Unknown Arterial Puncture / Unknown 03/30/2025 4:05 AM EDT 03/30/2025 4:11 AM EDT Ирина Lopez MD LAB BLOOD ORDERABLES Final R esult [facility] [address] [place] [address] * (ABNORMAL) CBC W/O Differential (03/30/2025 4:05 [...] R esult [facility] [address] [place] [address] * XR Chest 1 View (03/30/2025 1:35 [...] R esult [facility] [address] [place] [address] * (ABNORMAL) Renal Function Panel, Plasma (03/29/2025 [...] R esult [facility] [address] [place] [address] * (ABNORMAL) Magnesium, Plasma (03/29/2025 7:58 PM EDT) Magnesium, Plasma 1.3(L) 1.9 - 2.4 mg/dL 03/29/2025 8:39 PM EDT [facility] Blood Arterial blood specimen / Unknown Arterial Puncture / Unknown 03/29/2025 7:58 PM EDT 03/29/2025 8:05 PM EDT us Ирина Lopez MD LAB BLOOD ORDERABLES Final R esult Performing Organization Address City/[facility]/ZIP Co de Phone Number [facility] [address] [place] [address] * Fibrinogen (03/29/2025 7:58 PM EDT) Fibrinogen, Quantitative (Clottable) 294 208 - 459 mg/dL LAB COAGULATION METHOD 03/29/2025 8:38 PM EDT [facility] Blood Arterial blood specimen / Unknown Arterial Puncture / Unknown 03/29/2025 7:58 PM EDT 03/29/2025 8:05 PM EDT us Kiana Gusman CRNA LAB BLOOD ORDERABLES Final R esult Performing Organization Address City/[facility]/[place] [address] * Protime-INR (03/29/2025 7:58 PM EDT) Pathologist [facility] Prothrombin Time 13.8 12.0 - 14.3 sec [...] INR 2.5 to 3.5 Prevention of recurrent [place] INR 2.5 to 3.5 us Kiana Gusman CRNA LAB BLOOD ORDERABLES Final R esult [facility] [address] [place] [address] * (ABNORMAL) CBC and differential (03/29/2025 7:58 PM EDT) [facility] WBC Count 8.18 3.70 - 10.30 10*3/uL [...] 7:58 PM EDT 03/29/2025 8:04 PM EDT [facility] - 03/29/2025 8:29 PM EDT Therapeutic decision making should be based on absolute values, rather than percentages. us Kiana L Gusman [facility] BLOOD ORDERABLES Final R esult Performing Organization Address City/[facility] Co de Phone Number [facility] [address] [place] [address] * (ABNORMAL) POCT glucose meter (03/29/2025 7:43 [...] for testing. Comment 03/29/2025 7:45 PM EDT [facility] [employer] Supervisor ID Radha Slater 03/29/20 25 7:45 PM EDT [facility] Device ID [id number] 03/29/2025 7:45 PM EDT [facility] Specimen Type POC Capillary 03/29/2025 7:45 PM EDT [facility] Blood Capillary blood specimen / Unknown 03/29/2025 7:43 PM EDT 03/29/2025 7:45 PM EDT Ирина Lopez MD LAB POINT OF CARE TE ST DOCKED DEVICE UNSOLICITED RESULTS Final Result Performing Organization Address [facility] Co de Phone Number [facility] [address] [place] [address] * Surgical Pathology Exam (03/29/2025 5:10 PM EDT) Case Report Surgical Pathology Case: [id number] Authorizing Provider: Ирина Lopez MD Collected: 03/29/2025 1716 Ordering Location: [facility] A OPERATING ROOM Received: 03/30/2025 [...] EXCISION: - LIPOMA. 5 2:45 PM EDT [facility] at 1445 EDT Synoptic Checklist LUNG LUNG [...] developed by and are performed at the [facility], [address] [place] [address]. All tests reported here, except those addressing [...] on decalcified specimens. 5 2:45 PM EDT [facility] Gross Description A. BRONCHIAL MARGIN [...] 0.3-0.6 cm in greatest dimension are identified. Composition Mixer sections are submitted as follows: F1: Bronchial margin F2: Vascular margins F3: Nearest stapled margin, en face F4: Grossly unremarkable parenchyma F5-F10: Mass, entirely submitted F11: Two intact lymph nodes Cold Time: 13h 43m SWATI Wong ([facility]) G. LIPOMA The specimen is received fresh and placed in formalin, labeled l ipoma , and consists of a 5.8 x 5.6 x 2.1 cm unoriented portion of leggett-yellow lobulated fibroadipose tissue. The external surface is inked blue. Sectioning reveals a leggett-yellow lobulated cut surface. No areas of hemorrhage or necrosis are identified. Composition Mixer sections are submitted in cassettes G1-G3. Cold [...] al Result [facility] [address] [place] [address] * (ABNORMAL) Blood gas panel, arterial (03/29/2025 [...] esult [facility] [address] [facility] [address] * APTT (03/29/2025 4:04 PM EDT) aPTT 28 25 - 35 sec LAB COAGULATION METHOD 03/29/2025 4:39 PM EDT [facility] Blood Arterial blood specimen / Unknown 03/29/2025 4:04 PM EDT 03/29/2025 4:18 PM EDT Comment:Pre-op diagnosis: Non-small cell cancer of left lung Ирина Lopez MD LAB BLOOD ORDERABLES Final R esult Performing Organization Address [facility] Co de Phone Number [facility] [address] [place] [address] * Prothrombin Time/INR (03/29/2025 4:04 PM EDT) [...] INR 2.5 to 3.5 Prevention of recurrent [place] INR 2.5 to 3.5 Ирина Lopez MD LAB BLOOD ORDERABLES Final R esult Performing Organization Address City/[facility] Co de Phone Number [facility] [address] [place] [address] * Fibrinogen, Quantitative (Clottable) (03/29/2025 4:04 PM [...] esult [facility] [address] [place] [address] * (ABNORMAL) CBC W/O Differential (03/29/2025 4:04 [...] esult [facility] [address] [place] [address] * (ABNORMAL) Blood gas panel, arterial (03/29/2025 [...] ORDERABLES Final R esult Performing Organization Address City/[facility]/ZIP Co de Phone Number [facility] [address] [place] [address] * (ABNORMAL) POCT glucose meter (03/29/2025 12:48 [...] Comment 03/29/2025 12:50 PM EDT [facility] Con[employer] Supervisor ID Rosalie Cuevas 03/29/20 25 12:50 PM EDT HEALTH[facility]ARE LAB Device ID [id number] 03/29/2025 12:50 PM EDT [facility]ALTH[facility]ARE LAB Specimen Type POC Venous 03/29/2025 12:50 PM EDT [facility] Blood Venous blood specimen / Unknown 03/29/2025 12:48 PM EDT 03/29/2025 12:50 PM EDT Ирина Lopez MD LAB POINT OF CARE TE ST DOCKED DEVICE UNSOLICITED RESULTS Final Result Performing Organization Address City/[facility]/ZIP Co de Phone Number [facility]ALTH[facility]ARE LAB [address] [place] [address] * (ABNORMAL) Blood gas, venous (03/29/2025 12:27 [...] MD LAB BLOOD ORDERABLES Final Resu lt [facility] [address] [place] [address] * Type and Screen (03/29/2025 12:27 PM [...] Organization Address [facility] de Phone Number BLOOD BANK [address] [place] [address] documented in this encounter Visit Diagnoses Diagnosis [...] 0600 (Dose Auto Held - Provider: Scarlet Gabmoa APRN)1400 (Dose Auto Held - Provider: Scarlet [...] Routine 0356 (Not Given - Provider: Dipak Serarno RN - Reason: Order parameters not met)2024 [...] 0745, Routine 0710 (New Bag - Provider: iDpak Serrano RN) magnesium sulfate IVPB 2 g [...] documented as of this encounter 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
--- OUTSIDE RECORDS SUMMARY | 2025-03-29 13:34 | XMS_ITS | Encounter Summary ---
Author Organization [facility] Address [address] [place] [address] Care Team Providers Care Chain Saw Mechanic Name Role Phone Forrest Nickerson PRECISION LENS GRINDER Unavailable [phone] Casa Phillips MD Primary Care Provider [phone] Reason for Visit * Auth/Cert (Routine) Specialty Diagnoses / Procedures Referred By Contac t Referred To Contact Diagnoses Non-small cell cancer of left lung (CMS/HCC) Non-small cell cancer of left lung Procedures [place] THORACOSCOPY SURG LOBECTOMY LEFT VATS LOBECTOMY Ирина Lopez MD [address] [facility] [address] [place] [address] Phone: tel: fax: PAV A OPERATING ROOM [address] [place] [address] Phone: tel: Referral ID Status Reason Start Date Expiration Date Visits Re quested Visits Authorized [id number] 1 1 Encounter Details Date Type Department Care Team (Late st Contact Info) Description 03/29/2025 1:34 PM EDT Anesthesia Event P[facility] A OPERATING ROOM [address] [place] [address] Jimmy Kim MD [address] [place] [address] Laquita Brand MD [address] [place] [phone] Anesthesia Record Procedure Summary Procedure Name Responsible [...] Location: Midaxillary; Size: 24 Fr; Drainage System: Barry/nonsuction water seal drainage 03/29/25 1803 by Juliana [...] any time in the past 12 m [facility], were you homeless or living in a fdc (including now)? No 03/31/2025 Utilities Answer Date [...] procedure well with no complications. Staffing Performed: MEDICAL LIBRARIAN * Anesthesia Procedure Notes - Robert Santos MD - 03/29/2025 2:17 PM EDT Associated Order(s): Airway Airway Date/Time: 03/29/2025 1:48 PM Reason: elective Airway not difficult General Information and Staff Patient location during procedure: OR MEDICAL LIBRARIAN: Kiana Gusman CRNA Performed: MEDICAL LIBRARIAN Patient Condition Indications for airway management: anesthesia [...] from the original note were not included. [facility] Cole Feliz Jr. is a [...] with Ирина Lopez MD on 03/29/2025 in [facility] [place]. Past Medical History[7] Family History[8] Social History[9] [...] artery disease (patient denies), hyperlipidemia and past [place]. Does not have atrial fibrillation, CHF, dyspnea, [...] Date Arthritis CAD (coronary artery disease) Diabetes ([facility]) Hepatitis High blood pressure High [...] Pav CC Head, Neck & Respiratory [address] [facility], [address] [place] [address] Nikolai Naranjo MD [address] [place] [address] documented as of this encounter Procedures Procedure Name Priority Date/Time Associated Diagnosis Comments ANESTHESIA PERIPHERAL IV PLACEMENT Routine 03/29/2025 2:00 PM EDT ANESTHESIA ARTERIAL LINE PLACEMENT Routine 03/29/2025 1:57 PM EDT PB ANESTHESIA PLACEHOLDER Routine 03/29/2025 1:48 PM EDT [place] AN ELECTIVE ENDOTRACHEAL AIRWAY Routine 03/29/2025 1:48 [...] procedure well with no complications. Staffing Performed: MEDICAL LIBRARIAN Robert Santos MD ANESTHESIA ORDERABLES Edited Re sult - Final * [place] AN ELECTIVE ENDOTRACHEAL AIRWAY, PB ANESTHESIA PLACEHOLDER (03/29/2025 1:48 PM EDT) Narrative Robert Santos MD - 03/29/2025 1:48 PM EDT Robert Santos MD 03/29/2025 3:02 PM Airway Date/Time: 03/29/2025 1:48 PM Reason: elective Airway not difficult General Information and Staff Patient location during procedure: OR MEDICAL LIBRARIAN: Kiana Gusman MEDICAL LIBRARIAN Performed: MEDICAL LIBRARIAN Patient Condition Indications for airway management: anesthesia [...] documented as of this encounter Care Teams Chain Saw Mechanic Relationship Specialty Start Date End Date Casa Phillips MD [address] [place] [address] PCP - General 02/22/25 Forrest Nickerson APRN [address] [place] [id number] 03/06/23 documented as of this encounter
--- OUTSIDE RECORDS SUMMARY | 2025-04-06 10:40 | XMS_ITS | Encounter Summary ---
Author Organization [facility] Address [address] [place] [address] Care Team Providers Care Funeral Greeter Name Role Phone Demetrio Nickersonann Theresa FRONT MAN Unavailable [phone] Casa Phillips MD Primary Care Provider [phone] Reason for Referral * Consultation (Routine) - Authorized Specialty Diagnoses / Procedures Referred By Contac t Referred To Contact Medical Oncology Diagnoses Non-small cell cancer of left lung (CMS/HCC) Nikolai Naranjo MD [address] [address] Phone: tel: fax: Referral ID Status Reason Start Date Expiration Date Visits Requested Visits Authorized [id number] Authorized Specialty Services Required 04/06/2025 10/06/2026 [address] Dagoberto Rosales at [facility] Reason for Visit * Reason Comments Follow-up Encounter Details Date Type Department Care Team ([facility] st Contact Info) Description 04/06/2025 10:40 AM EDT Office Visit Pav CC Head, Neck & Respiratory [address] [place] [phone] Nikolai Naranjo MD [address] [facility] [address] [place] [address] Non-small cell cancer of left lung (CMS/HCC) [...] Recorded In the past 12 months has [employer], gas, oil, or water company threatened to [...] image 161 series 4 and 3. A Vom-GKD-vpvm subpleural 4 mm tiny perifissural nodule at [...] cane since 2023)- Pathology Fine needle aspiration: [id number] Order: [id number] Collected 01/28/2025 14:07 Final Diagnosis A. LUNG, [...] upper lobectomy on 03/29/2025. Surgical Pathology Exam: [id number] Order: [id number] Collected 03/29/2025 17:10 Status: Final result Dx: [...] Sister with lung cancer (heavy tobacco smoker qtvw7jf hand exposure). Social History[4] --tobacco smoker since age 13: cigars then switched to cigarettes 1PPD. Quit from 7718-5832, but later relapsed in 2015 to present (3-4 cigarettes x day). Re-contemplating phase, open to explore NRT options. --2nd hand tobacco smoking exposure from both parents during early to young adult age --occasional alcohol. No illicit drug use. [place] [facility] [place] [facility] [place] [address]. Allergies: Cetirizine Medications: Current Medications[5] Review of [...] scanner: Siemens Biograph 40 mCT. PET/CT acquisition: Irarkq-jo-vjy-thighs. Standardized uptake value (SUV): Corrected for body weight only. CT: Low-dose, cqb-tgfrnv-lkqr, without intravenous contrast. TOTAL DLP (Dose Length [...] 1.8 (image 161 series 4 and 3). 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 # Stage IB adenocarcinoma of the lung [...] - RTC in 3 months -referral to [facility] oncologist Dr. Rosales # Imbalance with now [...] TTOP enrollment at , likelyeligible. # Nutrition- finishing machine operator automatic consult next visit. Chronic conditions: HR-CAD s/p PCI on DAPT (last PCI in 2020)- asymptomatic. Prostatomegaly s/p prostate surgery x3 by local urology provider (last in 2023; [facility]). T2DM with recent weight loss (25 lbs [...] [facility], [address]nd [place] [address] Nikolai Naranjo MD [address] [facility] [address] [place] [address] Scheduled Referrals Name Type Priority Associated Diagnoses [...] documented as of this encounter Care Teams Funeral Greeter Relationship Specialty Start Date End Date Casa Phillips MD [address] [place] [address] PCP - General 02/22/25 Forrest Nickerson APRN [address] [place] [address] 03/06/23 documented as of this encounter
--- OUTSIDE RECORDS SUMMARY | 2025-04-06 11:30 | XMS_ITS | Encounter Summary ---
Author Organization [facility] Address [address] [place] [address] Care Team Providers Care Slat Twister Name Role Phone Demetrio trevinoann Cardenas WARDROBE TECHNICIAN Unavailable [phone] Casa Phillips MD Primary Care Provider [phone] Encounter Details Date Type Department Care Team (Late st Contact Info) Description 04/06/2025 11:30 AM EDT Office Visit Pav CC Head, Neck & Respiratory [address], [address] [place] [address] Ирина Lopez MD [address] [facility] [address] [place] [address] Non-small cell cancer of left [...] any time in the past 12 m [facility], were you homeless or living in [...] from the original note were not included. [facility] Department of Surgery Section of Thoracic Surgery Outpatient Clinic Note Diagnosis: lung cancer Procedure: 03/29/2025 L thoracotomy HIEN Pathology: [id number] (2.6 cm with visceral pleural invasion) Interval [...] it starts draining again. Ирина Lopez MD associate chief nurse Thoracic Surgery documented in this encounter Plan of Treatment Upcoming Encounters Date Type Department Care Team (Late st Contact Info) Description 07/06/2025 10:40 AM EDT Office Visit Pav CC Head, Neck & Respiratory [address] [facility], [address]nd [place] [address] Nikolai Naranjo MD 800 [facility] [address] [place] [address] documented as of this encounter Visit Diagnoses [...] documented as of this encounter Care Teams Slat Twister Relationship Specialty Start Date End Date Casa Phillips MD [address] [place] [address] PCP - General 02/22/25 Forrest Nickerson APRN [address] [place] [address] 03/06/23 documented as of this encounter
--- OUTSIDE RECORDS SUMMARY | 2025-04-20 10:00 | XMS_ITS | Encounter Summary ---
Author Organization [facility] Address [address] [place] [address] Care Team Providers Care Pump Installation And Servicer Name Role Phone Forrest Nickerson WATER QUALITY CONTROL ENGINEER Unavailable [phone] Casa Phillips MD Primary Care Provider [phone] Encounter Details Date Type Department Care Team (Latest Contact Info) Description 04/20/2025 10:00 AM EDT - 04/20/2025 11:59 PM EDT Hospital Encounter PAV H Radiology [address] [place] [address] Non-small cell cancer of left lung (CMS/HCC) [...] any time in the past 12 m [facility], were you homeless or living in a fpc (including now)? No 03/31/2025 Utilities Answer Date Recorded In the past 12 months has th e [employer], gas, oil, or water company threatened to [...] 1 tablet by mouth daily. HYDROcodone-acet aminophen (Champlin) 10-325 MG tablet Take 1 tablet by mouth every 6 hours as needed for severe pain for up to 10 days. 40 tablet 04/20/2025 tamsulosin (Flomax) 0.4 MG 24 hr capsule Take 1 capsule by mouth daily. 30 capsule 04/04/2025 5 documented as of this encounter Plan of Treatment Upcoming Encounters Date Type Department Care Team ([facility] st Contact Info) Description 07/06/2025 10:40 AM EDT Office Visit Pav CC Head, Neck & Respiratory [address] [facility], 2nd [place] [address] Nikolai Naranjo MD [address] [facility] [address] [place] [address] documented as of this encounter Procedures Procedure [...] documented as of this encounter Care Teams Pump Installation And Servicer Relationship Specialty Start Date End Date Casa Phillips MD [address] [place] [address] PCP - General 02/22/25 Forrest Nickerson APRN [address] [place] [address] 03/06/23 documented as of this encounter
--- OUTSIDE RECORDS SUMMARY | 2025-04-20 10:30 | XMS_ITS | Encounter Summary ---
Author Organization [facility] Address [address] [place] [address] Care Team Providers Care Car Wash Attendant Automatic Name Role Phone Demetrio trevinoann Theresa DIP UNIT OPERATOR Unavailable [phone] Casa Phillips MD Primary Care Provider [phone] Reason for Visit * Reason Comments Follow-up Encounter Details Date Type Department Care Team (Late st Contact Info) Description 04/20/2025 10:30 AM EDT Office Visit [facility] [address] [place] [address] Ирина Lopez MD [address] [facility] [address] [place] [address] Malignant neoplasm of upper lobe [...] any time in the past 12 m [facility], were you homeless or living in a senior living (including now)? No 03/31/2025 Utilities Answer Date [...] from the original note were not included. [facility] Department of Surgery Section of Thoracic Surgery Outpatient Clinic Note Diagnosis: lung cancer Procedure: 03/29/2025 L thoracotomy HIEN Pathology: [id number] (2.6 cm with visceral pleural invasion) Interval [...] cough, fevers. Still having some pain requiring [place]. ROS: General: no fevers or chills, no [...] Upcoming Encounters Date Type Department Care Team ([facility] Contact Info) Description 07/06/2025 10:40 AM EDT Office Visit [facility] [address] [facility], [address]nd [place] [address] Nikolai Naranjo MD [address] [facility] Lorin Avila [facility] [address] [place] [address] documented as of this encounter Visit Diagnoses [...] documented as of this encounter Care Teams Car Wash Attendant Automatic Relationship Specialty Start Date End Date Casa Phillips MD [address] [place] [address] PCP - General 02/22/25 Forrest Nickerson APRN [address] [place] [address] 03/06/23 documented as of this encounter
--- OUTSIDE RECORDS SUMMARY | 2025-05-27 12:58 | XMS_ITS | Encounter Summary ---
Author Organization [facility] Address [address] [place] [address] Care Team Providers Care Gut Sorter Name Role Phone Deep Keen APRN Primary Care Provider [phone] Forrest Nickerson APRN Unavailable [phone] Casa Phillips MD Primary Care Provider [phone] Encounter Details Date Type Department Care Team (Late Contact Info) Description 05/12/2024 Orders Only External Location [address] [place] [address] Provider, External Social History Tobacco Use Types [...] Upcoming Encounters Date Type Department Care Team ([facility] Contact Info) Description 07/06/2025 10:40 AM EDT Office Visit Pav CC Head, Neck & Respiratory [address] [facility], 2nd [place] [address] Nikolai Naranjo MD [address] [place]ila [facility] [address] [place] [address] documented as of this encounter Procedures Procedure [...] documented as of this encounter Care Teams Gut Sorter Relationship Specialty Start Date End Date Deep Keen APRN [address] [place] [address] PCP - General 03/06/23 02/21/25 Casa Phillips MD [address] [place] [address] PCP - General 02/22/25 Forrest Nickerson APRN [address] [place] [address] 03/06/23 documented as of this encounter
--- OUTSIDE RECORDS SUMMARY | 2025-05-27 12:58 | XMS_ITS | Referral Summary ---
Author Organization [employer] ([place], [place], [place], [place]) Address [address] [place] [address] Care Team Providers Care Wire Welder Name Role Phone Unavailable Primary Care Provider [...] Date Terrance rded Speak language other than Sami at home Not on file 11/01/2023 Want [...] Advance Directives For more information, please contact: [phone] * Full Code (Latest Code Status on File) Date Activated Date Inactivated Comments 05/31/2023 2:57 AM 06/05/2023 3:16 PM -Attempt Res uscitation if person has no pulse and is not breathing. -If no pulse or not breathing attempt CPR/CODE. -Call Rapid Response if patient is in distress.
--- OUTSIDE RECORDS SUMMARY | 2025-05-27 12:59 | XMS_ITS | Encounter Summary ---
Author Organization [facility] Address [address] [place] [address] Care Team Providers Care Chronic Condition Nurse Name Role Phone Forrest Nickerson MEDICAL ACCOUNTING CLERK Unavailable [phone] Casa Phillips MD Primary Care Provider [phone] Encounter Details Date Type Department Care Team (Late st Contact Info) Description 04/07/2025 Telephone PAV CC Hematology/BMT and Cellular Therapy Program [address] [place] [address] [place] [address] Tyler Montero Social History Tobacco Use Types [...] any time in the past 12 m [facility], were you homeless or living in a [...] CC Head, Neck & Respiratory 800 [facility], [address]nd [place] [address] Nikolai Naranjo MD [address]ila [facility] [address] [place] [address] documented as of this encounter Visit Diagnoses Not on filedocumented in this encounter Additional Health Concerns Assessment Noted Time A fall risk assessment has been complete d for the patient 04/06/2025 10:27 AM EDT A Body Mass Index follow-up plan has been documented for the patient 04/06/2025 12:11 PM EDT documented as of this encounter Care Teams Chronic Condition Nurse Relationship Specialty Start Date End Date Casa Phillips MD [address] [place] [address] PCP - General 02/22/25 Forrest Nickerson APRN [address] [place] [address] 03/06/23 documented as of this encounter
--- OUTSIDE RECORDS SUMMARY | 2025-05-27 12:59 | XMS_ITS | Clinical Summary ---
Author Organization [employer] ([place], [place], [place], [place]) Address [address] [place] [address] Care Team Providers Care Collar Stitcher Name Role Phone Unavailable Primary Care Provider [...] Date Terrance rded Speak language other than Luxembourgish at home Not on file 11/01/2023 Want [...] Advance Directives For more information, please contact: [phone] * Full Code (Latest Code Status on File) Date Activated Date Inactivated Comments 05/31/2023 2:57 AM 06/05/2023 3:16 PM -Attempt Res uscitation if person has no pulse and is not breathing. -If no pulse or not breathing attempt CPR/CODE. -Call Rapid Response if patient is in distress.
--- OUTSIDE RECORDS SUMMARY | 2025-05-27 12:59 | XMS_ITS | Encounter Summary ---
Author Organization [facility] Address [address] [place] [address] Care Team Providers Care Drag Out Man Name Role Phone Forrest Nickerson CAN LINE EXAMINER Unavailable [phone] Casa Phillips MD Primary Care Provider [phone] Encounter Details Date Type Department Care Team (Late st Contact Info) Description 04/07/2025 Telephone P[facility] CC Hematology/BMT and Cellular Therapy Program [address] [place] [address] [place] [address] Tyler Montero Social History Tobacco Use Types [...] any time in the past 12 m [facility], were you homeless or living [...] & Respiratory [address] [place] [address] Nikolai Naranjo MD [address] [place] [address] documented as of this encounter Visit Diagnoses Not on filedocumented in this encounter Additional Health Concerns Assessment Noted Time A fall risk assessment has been complete d for the patient 04/06/2025 10:27 AM EDT A Body Mass Index follow-up plan has been documented for the patient 04/06/2025 12:11 PM EDT documented as of this encounter Care Teams Drag Out Man Relationship Specialty Start Date End Date Casa Phillips MD [address] [place] [address] PCP - General 02/22/25 Forrest Nickerson APRN [address] [place] [address] 03/06/23 documented as of this encounter
--- OUTSIDE RECORDS SUMMARY | 2025-05-27 12:59 | XMS_ITS | Encounter Summary ---
Author Organization [facility] Address [address] [place] [address] Care Team Providers Care Cash Grain Grower Name Role Phone Demetrio Nickersonann Cardenas INDUSTRIAL WELDER Unavailable [phone] Casa Phillips MD Primary Care Provider [phone] Encounter Details Date Type Department Care Team (Late st Contact Info) Description 04/06/2025 Telephone Pav CC Head, Neck & Respiratory 800 [facility], 2nd [place] [address] Nikolai Naranjo MD 800 [facility] [address] [place] [address] Social History Tobacco Use Types [...] time in the past 12 m [facility], were you homeless or living in [...] Pav CC Head, Neck & Respiratory [address] [facility], 2nd [place] [address] Nikolai Naranjo MD 800 [facility] [address] [place] [address] documented as of this encounter Visit Diagnoses Not on filedocumented in this encounter Additional Health Concerns Assessment Noted Time A fall risk assessment has been complete d for the patient 04/06/2025 10:27 AM EDT A Body Mass Index follow-up plan has been documented for the patient 04/06/2025 12:11 PM EDT documented as of this encounter Care Teams Cash Grain Grower Relationship Specialty Start Date End Date Casa Phillips MD [address] [place] [address] PCP - General 02/22/25 Forrest Nickerson APRN [address] [place] [address] 03/06/23 documented as of this encounter
--- OUTSIDE RECORDS SUMMARY | 2025-05-27 12:59 | XMS_ITS | Clinical Summary ---
Author Organization [facility] Address [address] 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 04/07/2025 Telephone [facility] Hematology/BMT and Cellular Therapy Program [address] [phone] [facility] 04/07/2025 Telephone [facility] Hematology/BMT and Cellular Therapy Program [address] [place] [address] [facility] 04/07/2025 Telephone [facility] Head[facility] Neck & Respiratory [address] [address] Aishwarya Dye RN 04/06/2025 11:30 AM EDT Office Visit [facility] Respiratory [address] [address] Ирина Lopez MD Non-small cell cancer of left lung (CMS/HCC) (Primary Dx) 04/06/2025 10:40 AM EDT Office Visit [facility] Respiratory [address] [address] Nikolai Naranjo MD Non-small cell cancer of left lung (CMS/HCC) (Primary Dx); CKD (chronic kidney disease) stage 2, GFR 60-89 ml/min; Tobacco use disorder; Essential hypertension; Type 2 diabetes mellitus with stage 2 chronic kidney disease, without long-term current use of insulin (CMS/HCC) 04/06/2025 Telephone [facility] Head[facility] Neck [facility] Respiratory [address] [address] Nikolai Naranjo MD 04/06/2025 Travel 04/04/2025 Travel 04/03/2025 Travel 04/02/2025 Travel 04/01/2025 Travel 03/31/2025 Travel 03/30/2025 Travel 03/29/2025 1:34 PM EDT Anesthesia Event [facility] OPERATING ROOM [address] [place] [address] Jimmy Kim MD Bliss, Emily G, MD 03/29/2025 12:10 PM EDT - 03/29/2025 4:50 PM EDT Surgery [facility] OPERATING ROOM [address] [place] [address] Ирина Lopez MD LEFT VATS LOBECTOMY coverted to open, Left thoracotomy, with medistinal lymph node disection and lypoma [53423 (CPT )] 03/29/2025 9:43 AM EDT - 04/04/2025 12:18 PM EDT Hospital Encounter [facility] A Inpatient [address] [place] [phone] Ирина Lopez MD Non-small cell cancer of left lung (CMS/HCC) Discharge Disposition: Home or Self Care 03/29/2025 Travel 03/18/2025 Travel 03/11/2025 Telephone [facility] Head[facility] Neck [facility] Respiratory [address] [address] Ирина Lopez MD 03/04/2025 Results Follow-Up [facility] Head[facility] Neck [facility] Respiratory [address] [phone] SeNikolai Oakley MD 03/03/2025 Telephone [facility] Head[facility] Neck & Respiratory 800 [facility], [address] [place] [address] Kirstie Trejo RN 03/02/2025 Telephone [facility] Head[facility] Neck & Respiratory 800 [facility], [address]nd [place] [address] Nikolai Naranjo MD 03/02/2025 Telephone [facility] Head[facility] Neck & Respiratory 800 [facility] [place] [address] Nikolai Naranjo MD 02/24/2025 12:44 PM EDT - 02/24/2025 11:59 PM EDT Hospital Encounter [facility] S Radiology [address] [place] [address] Non-small cell cancer of left lung (CMS/HCC) Discharge Disposition: Home or Self Care 02/24/2025 Travel from Last 3 Months Family History [...] any time in the past 12 m [facility], were you homeless or living in a [...] & Respiratory [address] [place] [address] Nikolai Naranjo MD [address] [place] [address] Health Maintenance Due Date Last Done Comments [facility]-Depression Screening 1945 [facility]-Diabetes: Hemoglobin A1C 1945 [facility]-Hepatitis C Screening 1945 [facility]-Medicare Annual Wellness (AWV) 1945 [facility]-/Child/Adol SDOH Screenings 1945 [facility]-CJUSM-12 Vaccine (#1) 1951 Diabetes: Dental Exam 1955 [...] ANESTHESIA PLACEHOLDER Routine 03/29/2025 1:48 PM EDT GA AN ELECTIVE ENDOTRACHEAL AIRWAY Routine 03/29/2025 1:48 PM EDT GA THORACOSCOPY SURG LOBECTOMY 03/29/2025 1:24 PM [...] 8:34 AM EDT) Only the most recent of25 resultswithin the time period is included. POCT [...] for testing. Comment 04/04/2025 8:36 AM EDT [facility] Lacquer Sizer ID Sandy Kramer 04/04/2025 8:36 AM EDT [facility] Device ID [id number] 04/04/2025 8:36 AM EDT HEALTHCARE LAB Specimen Type POC Capillary 04/04/2025 8:36 AM EDT [facility] Blood Capillary blood specimen / Unknown 04/04/2025 8:34 AM EDT 04/04/2025 8:36 AM EDT us Ирина Lopez MD LAB POINT OF CARE TE ST DOCKED DEVICE UNSOLICITED RESULTS Final Result [facility] [address] [place] [address] * XR Chest 1 View (04/04/2025 5:20 [...] on 04/04/2025 10:20 AM us Scarlet Gamboa [employer] IMG XR PROCEDURES Final Resul t * (ABNORMAL) CBC W/O Differential (04/04/2025 2:19 AM EDT) Only the most recent of8 resultswithin the time period is included. WBC Count 5.44 3.70 - 10.30 10*3/uL LAB HEMATOLOGY METHOD 04/04/2025 2:[address] [facility] RBC Count 3.77(L) 4.60 - 6.10 10*6/uL LAB HEMATOLOGY METHOD 04/04/2025 2:[address] [facility] HGB 10.7(L) 13.7 - 17.5 g/dL LAB HEMATOLOGY METHOD 04/04/2025 2:[address] [facility] HCT 32.4(L) 40.0 - 51.0 % LAB HEMATOLOGY METHOD 04/04/2025 2:[address] [facility] Platelet Count 220 155 - 369 10*3/uL LAB HEMATOLOGY METHOD 04/04/2025 2:[address] [facility] MCV 86 79 - 98 fL LAB HEMATOLOGY METHOD 04/04/2025 2:[address] [facility] MCH 28.4 26.0 - 32.0 pg LAB HEMATOLOGY METHOD 04/04/2025 2:[address] [facility] MCHC 33.0 30.7 - 35.5 g/dL LAB HEMATOLOGY METHOD 04/04/2025 2:[address] [facility] RDW 14.7(H) 11.5 - 14.5 % LAB HEMATOLOGY METHOD 04/04/2025 2:[address] [facility] MPV 9.1 8.8 - 12.5 fL LAB HEMATOLOGY METHOD 04/04/2025 2:[address] [facility] nRBC 0.4(H) <=0.0 per 100 WBCs LAB HEMATOLOGY METHOD 04/04/2025 2:[address] [facility] Blood Venous blood specimen / Unknown Venipuncture / Unknown 04/04/2025 2:19 AM EDT 04/04/2025 2:24 AM EDT us Ирина Lopez MD LAB BLOOD ORDERABLES Final R esult [facility] [address] [place] [address] * (ABNORMAL) Magnesium, Plasma (04/04/2025 2:19 AM EDT) Only the most recent of8 resultswithin the time period is included. [facility] Magnesium, Plasma 1.8(L) 1.9 - 2.4 mg/dL 04/04/2025 2:[address] [facility] Blood Venous blood specimen / Unknown Venipuncture / Unknown 04/04/2025 2:19 AM EDT 04/04/2025 2:24 AM EDT us Ирина Lopez MD LAB BLOOD ORDERABLES Final R esult [facility] [address] [place] [address] * (ABNORMAL) Renal Function Panel, Plasma (04/04/2025 2:19 AM EDT) Only the most recent of8 resultswithin the time period is included. [facility] Glucose, Plasma 166(H) 74 - 99 mg/dL 04/04/2025 2:[address] [facility] BUN, Plasma 18 8 - 23 mg/dL 04/04/2025 2:[address] [facility] Creatinine, Plasma 1.31(H) 0.70 - 1.20 mg/dL 04/04/2025 2:[address] [facility] BUN/Creatinine Ratio 14 04/04/2025 2:[address] [facility] Sodium, Plasma 136 136 - 145 mmol/L 04/04/2025 2:[address] [facility] Potassium, Plasma 4.3 3.6 - 4.9 mmol/L 04/04/2025 2:[address] [facility] Chloride, Plasma 103 97 - 107 mmol/L 04/04/2025 2:[address] [facility] CO2, Plasma 22 22 - 29 mmol/L 04/04/2025 2:[address] [facility] Anion Gap 11 6 - 16 mmol/L 04/04/2025 2:[address] [facility] Total Calcium, Plasma 8.2(L) 8.9 - 10.2 mg/dL 04/04/2025 2:[address] [facility] Phosphorus, Plasma 3.1 2.5 - 4.5 mg/dL 04/04/2025 2:[address] [facility] Albumin, Plasma 3.0(L) 3.5 - 5.2 g/dL 04/04/2025 2:[address] [facility] eGFRcr 55.7 mL/min/1.7 3m*2 04/04/2025 2:[address] [facility] Comment:Reported eGFRcr in m L/min/1.73m2 is based the CKD-EPI 2020 equation that does not use a race coefficient. Blood Venous blood specimen / Unknown Venipuncture / Unknown 04/04/2025 2:19 AM EDT 04/04/2025 2:24 AM EDT us Ирина Lopez MD LAB BLOOD ORDERABLES Final R esult [facility] [address] [place] [address] * Transfuse RBC (04/02/2025 2:53 PM EDT) Only the most recent of3 resultswithin the time period is included. us Scralet Gamboa APRN BLOOD TRANSFUSION ORDERABLES Final Result [...] the time period is included. Product Code [id number] BLOO D BANK Dispense Status Transfused BLOOD BANK Blood Expiration Date [id number] BLOOD BANK Unit Number [id number] CH B LOOD BANK Product Blood Type 6200 BLOOD BANK Blood Type A+ CH BLOOD BANK Crossmatch Compatible BLOOD BANK Product Code [id number] CH BLOO D BANK Dispense Status Transfused BLOOD BANK Blood Expiration Date [id number] BLOOD BANK Unit Number [id number] CH B LOOD BANK Product Blood Type 6200 BLOOD BANK Blood Type A+ BLOOD BANK Crossmatch Compatible BLOOD BANK Other Scarlet Gamboa APRN BLOOD BANK PRODUCT ORDERABLES Final Result Performing Organization Address [facility] de Phone Number BLOOD BANK [address] [place] [address], * Type and Screen (04/02/2025 6:36 AM [...] ORDERABL ES Final Result Performing Organization Address City/[facility] Co de Phone Number BLOOD BANK [address] [place] [address], [place] * ECG Adult (03/30/2025 8:37 AM EDT) EKG DIAGNOSIS CLASS Abnormal MUSE ECG Ventricular Rate 81 BPM MUSE ECG Atrial Rate 81 BPM MUSE ECG GA Interval 170 ms MUSE ECG QRSD Interval 104 ms MUSE ECG QT Interval 416 ms MUSE ECG QTC Interval 483 ms MUSE ECG P [place] 39 degrees MUSE ECG R [place] -51 degrees MUSE ECG T Wave [place] -15 degrees MUSE ECG Diagnosis Poor data [...] 1.20 mg/dL 03/29/2025 8:[address] [facility] eGFRcr 70.2 mL/min/1.7 3m*2 03/29/2025 8:[address] [facility] Comment:Reported eGFRcr in m L/min/1.73m2 is based the CKD-EPI 2020 equation that does not use a race coefficient. Blood Arterial blood specimen / Unknown Arterial Puncture / Unknown 03/29/2025 7:58 PM EDT 03/29/2025 8:05 PM EDT Ирина Lopez MD LAB BLOOD ORDERABLES Final R esult [facility] [address] [place] [address] * Protime-INR (03/29/2025 7:58 PM EDT) Only the most recent of2 resultswithin the time period is included. Prothrombin Time 13.8 12.0 - 14.3 sec LAB COAGULATION METHOD 03/29/2025 8:[address] [facility] INR 1.0 0.9 - 1.1 LAB COAGULATION METHOD 03/29/2025 8:[address] [facility] Blood Arterial blood specimen / Unknown Arterial Puncture / Unknown 03/29/2025 7:58 PM EDT 03/29/2025 8:[address] [facility] - 03/29/2025 8:38 PM EDT [...] ORDERABLES Final R esult Performing Organization Address [facility] Co de Phone Number [facility] [address] [place] [address] * Fibrinogen (03/29/2025 7:58 PM EDT) Only the most recent of2 resultswithin the time period is included. Fibrinogen, Quantitative (Clottable) 294 208 - 459 mg/dL LAB COAGULATION METHOD 03/29/2025 8:[address] [facility] Blood Arterial blood specimen / Unknown Arterial Puncture / Unknown 03/29/2025 7:58 PM EDT 03/29/2025 8:05 PM EDT us Kiana Gusman [employer]AR[employer]KER LAB BLOOD ORDERABLES Final R esult Performing Organization Address City/[facility] Co de Phone Number [facility] [address] [place] [address] * (ABNORMAL) CBC and differential (03/29/2025 7:58 PM EDT) [facility] Signature WBC Count 8.18 3.70 - 10.30 10*3/uL LAB HEMATOLOGY METHOD 03/29/2025 8:[address] [facility] RBC Count 3.11(L) 4.60 - 6.10 10*6/uL LAB HEMATOLOGY METHOD 03/29/2025 8:[address] [facility] HGB 9.2(L) 13.7 - 17.5 g/dL LAB HEMATOLOGY METHOD 03/29/2025 8:[address] [facility] HCT 27.7(L) 40.0 - 51.0 % LAB HEMATOLOGY METHOD 03/29/2025 8:[address] [facility] Platelet Count 174 155 - 369 10*3/uL LAB HEMATOLOGY METHOD 03/29/2025 8:[address] [facility] MCV 89 79 - 98 fL LAB HEMATOLOGY METHOD 03/29/2025 8:[address] [facility] MCH 29.6 26.0 - 32.0 pg LAB HEMATOLOGY METHOD 03/29/2025 8:[address] [facility] MCHC 33.2 30.7 - 35.5 g/dL LAB HEMATOLOGY METHOD 03/29/2025 8:[address] [facility] RDW 12.6 11.5 - 14.5 % LAB HEMATOLOGY METHOD 03/29/2025 8:[address] [facility] MPV 9.3 8.8 - 12.5 fL LAB HEMATOLOGY METHOD 03/29/2025 8:[address] [facility] nRBC 0.0 <=0.0 per 100 WBCs LAB HEMATOLOGY METHOD 03/29/2025 8:[address] [facility] Differential Type Automated LAB HEMATOLOGY METHOD 03/29/2025 8:[address] [facility] Neutrophils % 86 % LAB HEMATOLOGY METHOD 03/29/2025 8:[address] [facility] Lymphocytes % 9 % LAB HEMATOLOGY METHOD 03/29/2025 8:[address] [facility] Monocytes % 5 % LAB HEMATOLOGY METHOD 03/29/2025 8:[address] [facility] Eosinophils % 0 % LAB HEMATOLOGY METHOD 03/29/2025 8:[address] [facility] Basophils % 0 % LAB HEMATOLOGY METHOD 03/29/2025 8:[address] [facility] Immature Granulocytes % 0 % LAB HEMATOLOGY METHOD 03/29/2025 8:[address] [facility] Neutrophils Absolute 7.00(H) 1.60 - 6.10 10*3/uL LAB HEMATOLOGY METHOD 03/29/2025 8:[address] [facility] Lymphocytes Absolute 0.71(L) 1.20 - 3.90 10*3/uL LAB HEMATOLOGY METHOD 03/29/2025 8:[address] [facility] Monocytes Absolute 0.40 0.30 - 0.90 10*3/uL LAB HEMATOLOGY METHOD 03/29/2025 8:[address] [facility] Eosinophils Absolute 0.02 0.00 - 0.50 10*3/uL LAB HEMATOLOGY METHOD 03/29/2025 8:[address] [facility] Basophils Absolute 0.02 0.00 - 0.10 10*3/uL LAB HEMATOLOGY METHOD 03/29/2025 8:[address] [facility] Immature Granulocytes Absolute 0.03 0.00 - 0.06 10*3/uL LAB HEMATOLOGY METHOD 03/29/2025 8:[address] [facility] Blood Arterial blood specimen / Unknown Arterial Puncture / Unknown 03/29/2025 7:58 PM EDT 03/29/2025 8:[address] [facility] - 03/29/2025 8:29 PM EDT Therapeutic decision making should be based on absolute values, rather than percentages. us Kiana Gusman ART[employer]IAL [employer]AR[employer] MAKER LAB BLOOD ORDERABLES Final R esult [facility] [address] [place] [address] * Surgical Pathology Exam (03/29/2025 5:10 PM EDT) Case Report Surgical Pathology Case: [id number] Authorizing Provider: Ирина Lopez MD Collected: 03/29/20256 Ordering Location: [facility] A OPERATING ROOM Received: 03/30/2025 0755 Pathologist: [...] Other (specify site), lipoma 2:45 PM EDT [facility] Final Diagnosis A. LUNG, BRONCHIAL MARGIN, EXCISION, [...] TISSUE, EXCISION: - LIPOMA. 2:45 PM EDT [facility] at 1445 EDT Synoptic Checklist LUNG LUNG [...] Category: pN0 5 2:[address] [facility] Clinical Information Non-small cell cancer of left lung 5 2:[address] [facility] Intraoperative Consultation A. BRONCHIAL MARGIN FSA: No tumor seen. Todd Gibbs MD. 03/29/2025 @ 1745. 5 2:[address] [facility] Special and Immunohistochemical Stains Special Stain: [id number] Elastic Trichrome: Demonstrates visceral pleural invasion F8-2 Elastic Trichrome: Demonstrates visceral pleural invasion All controls show appropriate reactivity. All immunohistochemis try, in situ hybridization, and histochemical tests were developed by and are performed at the [facility], [address] [place] [address]. All tests reported here, except those addressing [...] decalcified specimens. 5 2:[address] [facility] Gross Description A. BRONCHIAL MARGIN [...] 0.3-0.6 cm in greatest dimension are identified. Slot Technician sections are submitted as follows: F1: Bronchial [...] areas of hemorrhage or necrosis are identified. Slot Technician sections are submitted in cassettes G1-G3. Cold Time: 13h 05m SWATI Wong (ASCP) 5 2:[address] [facility] Note: A resident was involved in the service. I attest I examined the relevant preparations for the specimens and confirmed the diagnosis or interpretation. 5 2:45 PM EDT [facility] Tissue Structure of lymph node / [...] LAB PATHOLOGY ORDERABLES Fin al Result [facility] [address] [place] [address] * (ABNORMAL) Blood gas panel, arterial (03/29/2025 4:05 PM EDT) Only the most recent of2 resultswithin the time period is included. pH, Arterial 7.38 7.31 - 7.42 LAB HEMATOLOGY METHOD 03/29/2025 4:[address] [facility] pCO2, Arterial 45 32 - 45 mmHg LAB HEMATOLOGY METHOD 03/29/2025 4:[address] [facility] pO2, Arterial 216 >70 mmHg LAB HEMATOLOGY METHOD 03/29/2025 4:[address] [facility] SO2, Measured, Arterial 100(H) 94 - 98 % LAB HEMATOLOGY METHOD 03/29/2025 4:[address] [facility] Base Excess, Arterial 1.2 -2.0 - 3.0 mmol/L LAB HEMATOLOGY METHOD 03/29/2025 4:[address] [facility] Bicarbonate, Calculated, Arterial 27(H) 22 - 26 mmol/L LAB HEMATOLOGY METHOD 03/29/2025 4:[address] [facility] Hematocrit, Whole Blood 31.6(L) 40.0 - 51.0 % LAB HEMATOLOGY METHOD 03/29/2025 4:[address] [facility] Sodium, Whole Blood 138 136 - 145 mmol/L LAB HEMATOLOGY METHOD 03/29/2025 4:[address] [facility] Potassium, Whole Blood 3.8 3.6 - 4.9 mmol/L LAB HEMATOLOGY METHOD 03/29/2025 4:[address] [facility] Chloride, Whole Blood 103 97 - 107 mmol/L LAB HEMATOLOGY METHOD 03/29/2025 4:[address] [facility] Glucose, Whole Blood 123(H) 74 - 99 mg/dL LAB HEMATOLOGY METHOD 03/29/2025 4:[address] [facility] Ionized Calcium, Whole Blood 4.4(L) 4.6 - 5.1 mg/dL LAB HEMATOLOGY METHOD 03/29/2025 4:[address] [facility] Lactate, Arterial, Whole Blood 0.8 0.5 - 1.6 mmol/L LAB HEMATOLOGY METHOD 03/29/2025 4:[address] [facility] Blood Arterial blood specimen / Unknown 03/29/2025 4:05 PM EDT 03/29/2025 4:11 PM EDT Comment:Pre-op diagnosis: Non-small cell cancer of left lung us Ирина Lopez MD LAB BLOOD ORDERABLES Final R esult [facility] [address] [place] [address] * APTT (03/29/2025 4:04 PM EDT) aPTT 28 25 - 35 sec LAB COAGULATION METHOD 03/29/2025 4:[address] [facility] Blood Arterial blood specimen / Unknown 03/29/2025 4:04 PM EDT 03/29/2025 4:18 PM EDT Comment:Pre-op diagnosis: Non-small cell cancer of left lung us Ирина Lopez MD LAB BLOOD ORDERABLES Final R esult [facility] [address] [place] [address] * Peripheral IV (03/29/2025 2:00 PM EDT) Narrative Kiana Gusman ART[employer]AR[employer] MAKER - 03/29/2025 2:00 PM EDT Kiana Gusman ART[employer]IAL [employer]ARL MAKER 03/29/2025 2:28 PM Peripheral IV Date/Time: 03/29/2025 [...] procedure well with no complications. Staffing Performed: ARTIFICIAL PEARL MAKER us Robert Santos MD ANESTHESIA ORDERABLES Edited Re sult - Final * GA AN ELECTIVE ENDOTRACHEAL AIRWAY, PB ANESTHESIA PLACEHOLDER (03/29/2025 1:48 PM EDT) Robert Bloom MD - 03/29/2025 1:48 PM EDT Robert Santos MD 03/29/2025 3:02 PM Airway Date/Time: 03/29/2025 1:48 PM Reason: elective Airway not difficult General Information and Staff Patient location during procedure: [place] ARTIFICIAL PEARL MAKER: Kiana Gusman ARTIFICIAL PEARL MAKER Performed: ARTIFICIAL PEARL MAKER Patient Condition Indications for airway management: anesthesia [...] HEMATOLOGY METHOD 03/29/2025 12:[address] [facility] pCO2, Venous 49 40 - 55 mmHg LAB HEMATOLOGY METHOD 03/29/2025 12:[address] [facility] pO2, Venous 54(H) 25 - 40 mmHg LAB HEMATOLOGY METHOD 03/29/2025 12:[address] [facility] SO2, Measured, Venous 87(H) 65 - 80 % LAB HEMATOLOGY METHOD 03/29/2025 12:[address] [facility] Base Excess, Venous 1.7 -2.0 - 3.0 mmol/L LAB HEMATOLOGY METHOD 03/29/2025 12:[address] [facility] Bicarbonate, Calculated, Venous 28(H) 22 - 26 mmol/L LAB HEMATOLOGY METHOD 03/29/2025 12:[address] [facility] Hematocrit, Whole Blood 39.2(L) 40.0 - 51.0 % LAB HEMATOLOGY METHOD 03/29/2025 12:[address] [facility] Sodium, Whole Blood 140 136 - 145 mmol/L LAB HEMATOLOGY METHOD 03/29/2025 12:[address] [facility] Potassium, Whole Blood 4.0 3.6 - 4.9 mmol/L LAB HEMATOLOGY METHOD 03/29/2025 12:[address] [facility] Chloride, Whole Blood 103 97 - 107 mmol/L LAB HEMATOLOGY METHOD 03/29/2025 12:[address] [facility] Glucose, Whole Blood 97 74 - 99 mg/dL LAB HEMATOLOGY METHOD 03/29/2025 12:[address] [facility] Lactate, Venous, Whole Blood 1.6 0.5 - 2.2 mmol/L LAB HEMATOLOGY METHOD 03/29/2025 12:[address] [facility] Ionized Calcium, Whole Blood 4.5(L) 4.6 - 5.1 mg/dL LAB HEMATOLOGY METHOD 03/29/2025 12:[address] [facility] Blood Venous blood specimen / Unknown Venipuncture / Unknown 03/29/2025 12:27 PM EDT 03/29/2025 12:49 PM EDT us Robert Santos MD LAB BLOOD ORDERABLES Final Resu lt [facility] [address] [place] [address] * MR Head w and wo IV [...] MD IMG MRI PROCEDURES Esthela l Result from Last 3 Months Insurance [employer] [facility] MEDICARE Advance Directives * Full Code (Latest Code Status on File) Date Activated Date Inactivated Comments 03/29/2025 7:30 PM 04/04/2025 2:23 PM Question Answer Comments I have reviewed the capacity from the link above and, if needed, have updated to appropriate status: No Care Teams Band Splitter Relationship Specialty Start Date End Date Casa Phillips MD [address] [place] [id number] PCP - General 02/22/25 Forrest Nickerson APRN [address] [place] [id number] 03/06/23
--- OUTSIDE RECORDS SUMMARY | 2025-05-27 12:59 | XMS_ITS | Encounter Summary ---
Author Organization [facility] Address [address] [place] [address] Care Team Providers Care Box Toe Cutter Name Role Phone Forrest Nickerson LEAD ESTHETICIAN Unavailable [phone] Casa Phillips MD Primary Care Provider [phone] Encounter Details Date Type Department Care Team [...] [facility] Head[facility] Ne[facility] Respiratory [address] [facility] [place] [address] Nikolai Naranjo MD [address] [facility] [address] [place] [address] documented as of this encounter Visit Diagnoses Not on filedocumented in this encounter Additional Health Concerns Assessment Noted Time A fall risk assessment has been complete d for the patient 02/23/2025 8:48 AM EDT A Body Mass Index follow-up plan has been documented for the patient 04/04/2025 10:30 AM EDT documented as of this encounter Care Teams Box Toe Cutter Relationship Specialty Start Date End Date Casa Phillips MD [address] [place] [id number] PCP - General 02/22/25 Forrest Nickerson APRN [address] [place] [id number] 03/06/23 documented as of this encounter
--- OUTSIDE RECORDS SUMMARY | 2025-05-27 12:59 | XMS_ITS | Encounter Summary ---
Author Organization [facility] Address [address] [place] [address] Care Team Providers Care Vb Net Programmer Name Role Phone Forrest Nickerson DIRECTOR REGULATORY COMPLIANCE Unavailable [phone] Casa Phillips MD Primary Care Provider [phone] Encounter Details Date Type Department Care Team (Late st Contact Info) Description 04/07/2025 Telephone PAV CC Hematology/BMT and Cellular Therapy Program [address] [place] [address] [place] [address] Tyler Montero Social History Tobacco Use Types [...] any time in the past 12 m [facility], were you homeless or living in [...] Respiratory 800 [facility], 2nd [place] [address] Nikolai Naranjo MD [address] [facility] [address] [place] [address] documented as of this encounter Visit Diagnoses Not on filedocumented in this encounter Additional Health Concerns Assessment Noted Time A fall risk assessment has been complete d for the patient 04/06/2025 10:27 AM EDT A Body Mass Index follow-up plan has been documented for the patient 04/06/2025 12:11 PM EDT documented as of this encounter Care Teams Vb Net Programmer Relationship Specialty Start Date End Date Casa Phillips MD [address] [place] [address] PCP - General 02/22/25 Forrest Nickerson APRN [address] [place] [address] 03/06/23 documented as of this encounter
--- OUTSIDE RECORDS SUMMARY | 2025-05-27 12:59 | XMS_ITS ---
Author Organization [facility] Address [address] [place] [address] Care Team Providers Care Meat Blender Name Role Phone Zari Nickersonhéctor Theresa DIRECTOR CPG Unavailable [phone] Casa Phillips MD Primary Care Provider [phone] Active Problems Problem Noted Date Diagnosed Date [...]
--- OUTSIDE RECORDS SUMMARY | 2025-05-27 12:59 | XMS_ITS | Encounter Summary ---
Author Organization [facility] Address [address] [place] [address] Care Team Providers Care Alarm Mechanism Adjuster Name Role Phone Forrest Nickerson DRY YARD WORKER Unavailable [phone] Casa Phillips MD Primary Care Provider [phone] Encounter Details Date Type Department Care Team [...] any time in the past 12 m [facility], were you homeless or [...] Upcoming Encounters Date Type Department Care Team ([facility] Contact Info) Description 07/06/2025 10:40 AM EDT Office Visit Pav CC Head, Neck & Respiratory 800 [facility], 2nd [place] [address] Nikolai Naranjo MD 800 [facility] [address] [address] [facility] [address] [place] [address] documented as of this encounter Visit Diagnoses Not on filedocumented in this encounter Additional Health Concerns Assessment Noted Time A fall risk assessment has been complete d for the patient 04/06/2025 10:27 AM EDT A Body Mass Index follow-up plan has been documented for the patient 04/06/2025 12:11 PM EDT documented as of this encounter Care Teams Alarm Mechanism Adjuster Relationship Specialty Start Date End Date Casa Phillips MD [address] [place] [address] PCP - General 02/22/25 Forrest Nickerson APRN [address] [place] [address] 03/06/23 documented as of this encounter
--- OUTSIDE RECORDS SUMMARY | 2025-05-27 12:59 | XMS_ITS | Encounter Summary ---
Author Organization [facility] Address [address] [place] [address] Care Team Providers Care Senior Interior Designer Name Role Phone belinda Demetrioann Cardenas RETANNER Unavailable [phone] Casa Phillips MD Primary Care Provider [phone] Encounter Details Date Type Department Care Team (Late st Contact Info) Description 04/07/2025 Telephone Pav CC Head, Neck & Respiratory [address] [place] [address] Aishwarya Dye, RN [facility] Social [...] Referral sent to Dr Dagoberto Rosales with [facility]. documented in this encounter Plan of Treatment Upcoming Encounters Date Type Department Care Team ([facility] Contact Info) Description 07/06/2025 10:40 AM EDT Office Visit Pav CC Head, Neck & Respiratory [address], 2nd [place] [address] Nikolai Naranjo MD 800 [facility] [address] [facility] [address] [place] [address] documented as of this encounter Visit Diagnoses Not on filedocumented in this encounter Additional Health Concerns Assessment Noted Time A fall risk assessment has been complete d for the patient 04/06/2025 10:27 AM EDT A Body Mass Index follow-up plan has been documented for the patient 04/06/2025 12:11 PM EDT documented as of this encounter Care Teams Senior Interior Designer Relationship Specialty Start Date End Date Casa Phillips MD [address] [place] [address] PCP - General 02/22/25 Forrest Nickerson APRN [address] [place] [address] 03/06/23 documented as of this encounter
--- OUTSIDE RECORDS SUMMARY | 2025-05-27 13:00 | XMS_ITS | Encounter Summary ---
Author Organization [facility] Address [address] [place] [address] Care Team Providers Care Screening Nurse Name Role Phone Forrest Nickerson ACCOUNTS SPECIALIST Unavailable [phone] Casa Phillips MD Primary Care Provider [phone] Encounter Details Date Type Department Care Team [...] the past 12 months has th e [employer], gas, oil, or water company threatened to [...] 800 [facility], [address]nd [place] [address] Nikolai Naranjo MD 800 [facility] [address] [place] [address] documented as of this encounter Visit Diagnoses Not on filedocumented in this encounter Additional Health Concerns Assessment Noted Time A fall risk assessment has been complete d for the patient 02/23/2025 8:48 AM EDT A Body Mass Index follow-up plan has been documented for the patient 04/04/2025 10:30 AM EDT documented as of this encounter Care Teams Screening Nurse Relationship Specialty Start Date End Date Casa Phillips MD [address] [place] [address] PCP - General 02/22/25 Forrest Nickerson APRN [address] [place] [address] 03/06/23 documented as of this encounter
--- OUTSIDE RECORDS SUMMARY | 2025-05-27 13:00 | XMS_ITS | Encounter Summary ---
Author Organization [facility] Address [address] [place] [address] Care Team Providers Care Kitchen Cleaner Name Role Phone Forrest Nickerson CLINICAL FELLOW Unavailable [phone] Casa Phillips MD Primary Care Provider [phone] Encounter Details Date Type Department Care Team [...] & Respiratory 800 [facility], 2nd [place] [address] Nikolai Naranjo MD 800 [facility] [address] [facility] [address] [place] [address] documented as of this encounter Visit Diagnoses Not on filedocumented in this encounter Additional Health Concerns Assessment Noted Time A fall risk assessment has been complete d for the patient 02/23/2025 8:48 AM EDT A Body Mass Index follow-up plan has been documented for the patient 04/04/2025 10:30 AM EDT documented as of this encounter Care Teams Kitchen Cleaner Relationship Specialty Start Date End Date Casa Phillips MD [address] [place] [address] PCP - General 02/22/25 Forrest Nickerson APRN [address] [place] [address] 03/06/23 documented as of this encounter
--- OUTSIDE RECORDS SUMMARY | 2025-05-27 13:00 | XMS_ITS | Encounter Summary ---
Author Organization [facility] Address [address] [place] [address] Care Team Providers Care Domestic Cleaner Name Role Phone Demetrio Nickersonann Cardenas SUPERVISOR HARVESTING Unavailable [phone] Casa Phillips MD Primary Care Provider [phone] Encounter Details Date Type Department Care Team (Late st Contact Info) Description 03/04/2025 Results Follow-Up Pav CC Head, Neck & Respiratory 800 [facility], 2nd [place] [address] Nikolai Naranjo MD 800 [facility] [address] [place] [address] Social History Tobacco Use Types [...] time in the past 12 m [facility], were you homeless [...] & Respiratory [address] [place] [address] Nikolai Naranjo MD [address] [place] [address] documented as of this encounter Visit Diagnoses Not on filedocumented in this encounter Additional Health Concerns Assessment Noted Time A fall risk assessment has been complete d for the patient 02/23/2025 8:48 AM EDT A Body Mass Index follow-up plan has been documented for the patient 02/25/2025 5:11 PM EDT documented as of this encounter Care Teams Domestic Cleaner Relationship Specialty Start Date End Date Casa Phillips MD [address] [place] [address] PCP - General 02/22/25 Forrest Nickerson APRN [address] [place] [address] 03/06/23 documented as of this encounter
--- OUTSIDE RECORDS SUMMARY | 2025-05-27 13:00 | XMS_ITS | Encounter Summary ---
Author Organization [facility] Address [address] [place] [address] Care Team Providers Care Buffing Machine Operator Name Role Phone Forrset Nickerson ACID PAINTER Unavailable [phone] Casa Phillips MD Primary Care Provider [phone] Encounter Details Date Type Department Care Team [...] Respiratory [address] [facility], 2nd [place] [address] Nikolai Naranjo MD 800 [facility] [address] [facility] [address] [place] [address] documented as of this encounter Visit Diagnoses Not on filedocumented in this encounter Additional Health Concerns Assessment Noted Time A fall risk assessment has been complete d for the patient 02/23/2025 8:48 AM EDT A Body Mass Index follow-up plan has been documented for the patient 04/04/2025 10:30 AM EDT documented as of this encounter Care Teams Buffing Machine Operator Relationship Specialty Start Date End Date Casa Phillips MD [address] [place] [address] PCP - General 02/22/25 Forrest Nickerson APRN [address] [place] [address] 03/06/23 documented as of this encounter
--- OUTSIDE RECORDS SUMMARY | 2025-05-27 13:00 | XMS_ITS | Encounter Summary ---
Author Organization [facility] Address [address] [place] [address] Care Team Providers Care Pharmacist Manager Name Role Phone Forrest Nickerson FOUNDER AND CEO Unavailable [phone] Casa Phillips MD Primary Care Provider [phone] Encounter Details Date Type Department Care Team [...] Pav CC Head, Neck & Respiratory 800 [facility], [address]nd [place] [address] Nikolai Naranjo MD 800 [facility] [address] [facility] [address] [place] [address] documented as of this encounter Visit Diagnoses Not on filedocumented in this encounter Additional Health Concerns Assessment Noted Time A fall risk assessment has been complete d for the patient 02/23/2025 8:48 AM EDT A Body Mass Index follow-up plan has been documented for the patient 04/04/2025 10:30 AM EDT documented as of this encounter Care Teams Pharmacist Manager Relationship Specialty Start Date End Date Casa Phillips MD [address] [place] [address] PCP - General 02/22/25 Forrest Nickerson APRN [address] [place] [address] 03/06/23 documented as of this encounter
--- OUTSIDE RECORDS SUMMARY | 2025-05-27 13:00 | XMS_ITS | Encounter Summary ---
Author Organization [facility] Address [address] [place] [address] Care Team Providers Care Pattern Changer And Repairer Name Role Phone Forrest Nickerson CAR DETAILER Unavailable [phone] Casa Phillips MD Primary Care Provider [phone] Encounter Details Date Type Department Care Team [...] Pav CC Head, Neck & Respiratory 800 [facility], 2nd [place] [address] Nikolai Naranjo MD 800 [facility] [address] [place] [address] documented as of this encounter Visit Diagnoses Not on filedocumented in this encounter Additional Health Concerns Assessment Noted Time A fall risk assessment has been complete d for the patient 02/23/2025 8:48 AM EDT A Body Mass Index follow-up plan has been documented for the patient 04/04/2025 10:30 AM EDT documented as of this encounter Care Teams Pattern Changer And Repairer Relationship Specialty Start Date End Date Casa Phillips MD [address] [place] [address] PCP - General 02/22/25 Forrest Nickerson APRN [address] [place] [address] 03/06/23 documented as of this encounter
--- OUTSIDE RECORDS SUMMARY | 2025-05-27 13:00 | XMS_ITS | Encounter Summary ---
Author Organization [facility] Address [address] [place] [address] Care Team Providers Care Director Of Primary Care Name Role Phone Demetrio Nickersonann Theresa [employer] SCHOOL HUMANITIES TEACHER Unavailable [phone] Casa Phillips MD Primary Care Provider [phone] Encounter Details Date Type Department Care Team [...] Pav CC Head, Neck & Respiratory 800 [facility], 2nd [place] [address] Nikolai Naranjo MD 800 [facility] [address] [place] [address] documented as of this encounter Visit Diagnoses Not on filedocumented in this encounter Additional Health Concerns Assessment Noted Time A fall risk assessment has been complete d for the patient 02/23/2025 8:48 AM EDT A Body Mass Index follow-up plan has been documented for the patient 04/04/2025 10:30 AM EDT documented as of this encounter Care Teams Director Of Primary Care Relationship Specialty Start Date End Date Casa Phillips MD [address] [place] [address] PCP - General 02/22/25 Forrest Nickerson APRN [address] [place] [address] 03/06/23 documented as of this encounter
--- OUTSIDE RECORDS SUMMARY | 2025-05-27 13:01 | XMS_ITS | Encounter Summary ---
Author Organization [facility] Address [address] [place] [address] Care Team Providers Care Telecommunication Tower Technician Name Role Phone Demetrio Nickersonann Theresa REACTOR KETTLE OPERATOR Unavailable [phone] Casa Phillips MD Primary Care Provider [phone] Encounter Details Date Type Department Care Team (Late st Contact Info) Description 04/19/2025 Telephone Pav CC Head, Neck & Respiratory [address] [place] [address] Manny Lopez MD [address] [place] [address] Social History Tobacco Use Types Packs/Day Years [...] in the past 12 m [facility], were you homeless or living [...] - 04/19/2025 1:15 PM EDT Branden at [facility] [phone] called for lon said to call him back documented in this encounter Plan of Treatment Upcoming Encounters Date Type Department Care Team (Late st Contact Info) Description 07/06/2025 10:40 AM EDT Office Visit Pav CC Head, Neck & Respiratory 800 [facility], 2nd [place] [address] Nikolai Naranjo MD 800 [facility] [address] [place] [address] documented as of this encounter Visit Diagnoses Not on filedocumented in this encounter Additional Health Concerns Assessment Noted Time A fall risk assessment has been complete d for the patient 04/06/2025 10:27 AM EDT A Body Mass Index follow-up plan has been documented for the patient 04/06/2025 12:11 PM EDT documented as of this encounter Care Teams Telecommunication Tower Technician Relationship Specialty Start Date End Date Casa Phillips MD [address] [place] [address] PCP - General 02/22/25 Forrest Nickerson APRN [address] [place] [address] 03/06/23 documented as of this encounter
--- OUTSIDE RECORDS SUMMARY | 2025-05-27 13:01 | XMS_ITS | Encounter Summary ---
Author Organization [facility] Address [address] [place] [address] Care Team Providers Care Cardiology Clinical Nurse Specialist Name Role Phone Forrest Nickerson INSURANCE FOLLOW UP SPECIALIST Unavailable [phone] Casa Phillips MD Primary Care Provider [phone] Encounter Details Date Type Department Care Team [...] any time in the past 12 m [facility], were you homeless or living [...] Upcoming Encounters Date Type Department Care Team ([facility] Contact Info) Description 07/06/2025 10:40 AM EDT Office Visit Pav CC Head, Neck & Respiratory 800 [facility], 2nd [place] [address] Nikolai Naranjo MD 800 [facility] [address] [facility] [address] [place] [address] documented as of this encounter Visit Diagnoses Not on filedocumented in this encounter Additional Health Concerns Assessment Noted Time A fall risk assessment has been complete d for the patient 04/20/2025 10:24 AM EDT A Body Mass Index follow-up plan has been documented for the patient 04/23/2025 4:10 PM EDT documented as of this encounter Care Teams Cardiology Clinical Nurse Specialist Relationship Specialty Start Date End Date aCsa Phillips MD [address] [place] [address] PCP - General 02/22/25 Forrest Nickerson APRN [address] [place] [address] 03/06/23 documented as of this encounter
--- OUTSIDE RECORDS SUMMARY | 2025-05-27 13:01 | XMS_ITS | Encounter Summary ---
Author Organization [facility] Address [address] [place] [address] Care Team Providers Care Fiber Machine Tender Name Role Phone Demetrio Nickersonann Theresa HEAVY ANTIARMOR WEAPONS INFANTRYMAN Unavailable [phone] Casa Phillips MD Primary Care Provider [phone] Encounter Details Date Type Department Care Team (Late st Contact Info) Description 04/20/2025 Telephone Pav CC Head, Neck & Respiratory [address], 2nd [place] [address] Ирина Lopez MD [address] [facility] [address] [place] [address] Social History Tobacco Use Types [...] regarding pain medication not being sent to [facility] in [place]. I confirmed it was sent at 11:42am. documented in this encounter Plan of Treatment Upcoming Encounters Date Type Department Care Team (Late st Contact Info) Description 07/06/2025 10:40 AM EDT Office Visit Pav CC Head, Neck & Respiratory 800 [facility], 2nd [place] [address] Nikolai Naranjo MD 800 [facility] [address] [place] [address] documented as of this encounter Visit Diagnoses Not on filedocumented in this encounter Additional Health Concerns Assessment Noted Time A fall risk assessment has been complete d for the patient 04/20/2025 10:24 AM EDT A Body Mass Index follow-up plan has been documented for the patient 04/23/2025 4:10 PM EDT documented as of this encounter Care Teams Fiber Machine Tender Relationship Specialty Start Date End Date Casa Phillips MD [address] [place] [address] PCP - General 02/22/25 Forrest Nickerson APRN [address] [place] [address] 03/06/23 documented as of this encounter
[2025-05-27 13:08] VITALS: BMI 19.2
[2025-05-27 13:16] LABS: Hematocrit 27.4 % (42.0-52.0); Hemoglobin 8.8 g/dL (14.1-18.0); Immature Granulocytes % 1.4 %; Mean Corpuscular HGB Conc 32.1 g/dL (31.8-35.4); Mean Corpuscular Hemoglobin 28.9 pg (27.0-31.2); Mean Corpuscular Volume 89.8 fl (80-94); Nucleated Red Blood Cells % 0 %; Platelet Count 336 K/mm3 (142-424); Red Blood Count 3.05 M/mm3 (4.60-6.20); Red Cell Distribution Width-SD 42.6 fL; White Blood Count 7.4 K/mm3 (4.8-10.8)
[2025-05-27 13:24] LABS: Albumin Level 3.8 g/dl (3.5-5.0); Chloride 102 mmol/L (98-107); Potassium 4.3 mmoL/L (3.5-5.1); Sodium 137 mmol/L (136-145)
[2025-05-27 13:27] LABS: Alanine Aminotransferase 13 U/L (12-78); Albumin/Globulin Ratio 1.1 (1.1-1.8); Alkaline Phosphatase 83 U/L (38-126); Anion Gap 11.3 mEq/L (5-15); Aspartate Amino Transferase 22 U/L (17-59); Bilirubin,Total 0.4 mg/dl (0.2-1.3); Blood Urea Nitrogen 20 mg/dl (9-20); Carbon Dioxide 28 mmol/L (22.0-30.0); Creatinine Clearance Estimated 40 mL/min (50-200); Creatinine,Serum 1.30 mg/dl (0.66-1.25); Estimated Glomerular Filt Rate 53 ml/min (>60); GFR (African American) 65 ML/MIN (>60); Globulin 3.4 g/dL (1.3-3.2); Total Protein,Serum 7.2 g/dl (6.3-8.2)
[2025-05-27 13:28] LABS: Calcium 9.3 mg/dl (8.4-10.2); Glucose 104 mg/dl (74-100)
[2025-05-27] MEDS: PROCHLORPERAZINE 10MG TABLET 10 MG PO (13:41)
[2025-05-27] MEDS: ONDANSETRON 4MG ODT 16 MG (13:41)
[2025-05-27] MEDS: SODIUM CHLORIDE 0.9% IV ×2 (14:23→15:07)
[2025-05-27] MEDS: CARBOPLATIN IV (14:23)
[2025-05-27 14:25] VITALS: BP 131/84; PULSE 85; RESP 18; TEMP 36.7; O2SAT 96
[2025-05-27] MEDS: SODIUM CHLORIDE 0.9% 100ML BAG 100 ML IV (14:51)
[2025-05-27 15:00] VITALS: BP 125/48; PULSE 92
[2025-05-27] MEDS: PEMETREXED DISODIUM IV (15:07)
[2025-05-27 15:10] VITALS: BP 123/52; PULSE 89
[2025-05-27 15:20] VITALS: BP 129/51; PULSE 88
== END 2025-05-27 15:30 | disposition home or self-care (01) ==
LOC: INF 12:52
PROVIDERS: PCP Family Medicine; Visit Provider Internal Medicine Medical Oncology
DX: C34.12 Malignant neoplasm of upper lobe, left bronchus or lung (principal); Z51.11 Encounter for antineoplastic chemotherapy
CPT/HCPCS: 80053; 85025; 96365; 96413; 96417; J7050; J9045; J9305; Q0162; Q0164

== ENCOUNTER 2025-06-10 16:05 | Observation (INO) | payer MEDICARE, SELFPAY ==
--- OUTSIDE RECORDS SUMMARY | 2025-04-20 10:00 | XMS_ITS | Encounter Summary ---
Author Organization [facility] Address [address] [place] [address] Care Team Providers Care Acoustical Logging Engineer Name Role Phone Forrest Nickerson SPECIAL OFFICER AUTOMAT Unavailable [phone] Casa Phillips MD Primary Care Provider [phone] Encounter Details Date Type Department Care Team (Latest Contact Info) Description 04/20/2025 10:00 AM EDT - 04/20/2025 11:59 PM EDT Hospital Encounter PAV H Radiology [address] [place] [address] Non-small cell cancer of left lung (CMS/HCC) [...] any time in the past 12 m [facility], were you homeless or living in a intermediate (including now)? No 03/31/2025 Utilities Answer Date Recorded In the past 12 months has th e [employer], gas, oil, or water company threatened to [...] 1 tablet by mouth daily. HYDROcodone-acet aminophen (Dunreith) 10-325 MG tablet Take 1 tablet by mouth every 6 hours as needed for severe pain for up to 10 days. 40 tablet 04/20/2025 tamsulosin (Flomax) 0.4 MG 24 hr capsule Take 1 capsule by mouth daily. 30 capsule 04/04/2025 5 documented as of this encounter Plan of Treatment Upcoming Encounters Date Type Department Care Team ([facility] st Contact Info) Description 07/06/2025 10:40 AM EDT Office Visit Pav CC Head, Neck & Respiratory [address] [facility], 2nd [place] [address] Nikolai Naranjo MD [address] [facility] [address] [place] [address] documented as of this encounter Procedures Procedure [...] documented as of this encounter Care Teams Acoustical Logging Engineer Relationship Specialty Start Date End Date Casa Phillips MD [address] [place] [address] PCP - General 02/22/25 Forrest Nickerson APRN [address] [place] [address] 03/06/23 documented as of this encounter
--- OUTSIDE RECORDS SUMMARY | 2025-04-20 10:30 | XMS_ITS | Encounter Summary ---
Author Organization [facility] Address [address] [place] [address] Care Team Providers Care Security Intern Name Role Phone Demetrio trevinoann Theresa FLOORING HELPER Unavailable [phone] Casa Phillips MD Primary Care Provider [phone] Reason for Visit * Reason Comments Follow-up Encounter Details Date Type Department Care Team (Late st Contact Info) Description 04/20/2025 10:30 AM EDT Office Visit [facility] [address] [place] [address] Ирина Lopez MD [address] [facility] [address] [place] [address] Malignant neoplasm of upper lobe [...] any time in the past 12 m [facility], were you homeless or living [...] original note were not included. [facility] Department of Surgery Section of Thoracic Surgery Outpatient Clinic Note Diagnosis: lung cancer Procedure: 03/29/2025 L thoracotomy HIEN Pathology: [id number] (2.6 cm with visceral pleural invasion) Interval [...] cough, fevers. Still having some pain requiring [place]. ROS: General: no fevers or chills, no [...] Department Care Team ([facility] Contact Info) Description 07/06/2025 10:40 AM EDT Office Visit [facility] [address] [facility], 2nd [place] [address] Nikolai Naranjo MD [address] [facility] Lorin Avila [facility] [address] [place] [address] documented as of this encounter Visit Diagnoses [...] documented as of this encounter Care Teams Security Intern Relationship Specialty Start Date End Date Casa Phillips MD [address] [place] [address] PCP - General 02/22/25 Forrest Nickerson APRN [address] [place] [address] 03/06/23 documented as of this encounter
[2025-06-10] VITALS (19 sets, daily range): BP systolic 113–159; BP diastolic 53–84; PULSE 86–106; RESP 16–18; TEMP 36.7–37; O2SAT 96–100; BMI 19.0
--- OUTSIDE RECORDS SUMMARY | 2025-06-10 12:47 | XMS_ITS | Referral Summary ---
Author Organization [facility] ([place], [place], [place], [place]) Address [address] [place] [address] Care Team Providers Care Laboratory Analyst Name Role Phone Unavailable Primary Care Provider [...] Date Terrance rded Speak language other than Lao at home Not on file 11/01/2023 Want [...] Advance Directives For more information, please contact: [phone] * Full Code (Latest Code Status on File) Date Activated Date Inactivated Comments 05/31/2023 2:57 AM 06/05/2023 3:16 PM -Attempt Res uscitation if person has no pulse and is not breathing. -If no pulse or not breathing attempt CPR/CODE. -Call Rapid Response if patient is in distress.
--- OUTSIDE RECORDS SUMMARY | 2025-06-10 12:48 | XMS_ITS | Encounter Summary ---
Author Organization [facility] Address [address] [place] [address] Care Team Providers Care Safety Assistant Name Role Phone Demetrio Nickersonann Cardenas PARTS ROOM CLERK Unavailable [phone] Casa Phillips MD Primary Care Provider [phone] Encounter Details Date Type Department Care Team (Late st Contact Info) Description 03/04/2025 Results Follow-Up Pav CC Head, Neck & Respiratory 800 [facility], [address] [place] [address] Nikolai Naarnjo MD 800 [facility] [address] [place] [address] Social History Tobacco Use Types [...] time in the past 12 m [facility], were you homeless or living in a assisted (including now)? No 03/31/2025 Utilities Answer Date [...] & Respiratory [address] [place] [address] Nikolai Naranjo MD [address] [place] [address] documented as of this encounter Visit Diagnoses Not on filedocumented in this encounter Additional Health Concerns Assessment Noted Time A fall risk assessment has been complete d for the patient 02/23/2025 8:48 AM EDT A Body Mass Index follow-up plan has been documented for the patient 02/25/2025 5:11 PM EDT documented as of this encounter Care Teams Safety Assistant Relationship Specialty Start Date End Date Casa Phillips MD [address] [place] [address] PCP - General 02/22/25 Forrest Nickerson APRN [address] [place] [address] 03/06/23 documented as of this encounter
--- OUTSIDE RECORDS SUMMARY | 2025-06-10 12:48 | XMS_ITS | Encounter Summary ---
Author Organization [facility] Address [address] [place] [address] Care Team Providers Care Road Traffic Controller Name Role Phone Forrest Nickerson PLAY WRITER Unavailable [phone] Casa Phillips MD Primary Care Provider [phone] Encounter Details Date Type Department Care Team (Late st Contact Info) Description 04/07/2025 Telephone PAV CC Hematology/BMT and Cellular Therapy Program [address] [place] [address] [place] [address] Tyler Montero Social History Tobacco Use Types [...] Pav CC Head, Neck & Respiratory 800 [facility], 2nd [place] [address] Nikolai Naranjo MD [address] [facility] [address] [place] [address] documented as of this encounter Visit Diagnoses Not on filedocumented in this encounter Additional Health Concerns Assessment Noted Time A fall risk assessment has been complete d for the patient 04/06/2025 10:27 AM EDT A Body Mass Index follow-up plan has been documented for the patient 04/06/2025 12:11 PM EDT documented as of this encounter Care Teams Road Traffic Controller Relationship Specialty Start Date End Date Casa Phillips MD [address] [place] [address] PCP - General 02/22/25 Forrest Nickerson APRN [address] [place] [address] 03/06/23 documented as of this encounter
--- OUTSIDE RECORDS SUMMARY | 2025-06-10 12:48 | XMS_ITS | Encounter Summary ---
Author Organization [facility] Address [address] [place] [address] Care Team Providers Care Retail Brand Ambassador Name Role Phone Forrest Nickerson RESEARCH WORKER ENCYCLOPEDIA Unavailable [phone] Casa Phillips MD Primary Care Provider [phone] Encounter Details Date Type Department Care Team (Late st Contact Info) Description 04/07/2025 Telephone [facility] Hematology/BMT and Cellular Therapy Program [address] [place] [address] [place] [address] Tyler Montero Social History Tobacco Use Types [...] 800 [facility], [address]nd [place] [address] Nikolai Naranjo MD [address] [facility] [address] [place] [address] documented as of this encounter Visit Diagnoses Not on filedocumented in this encounter Additional Health Concerns Assessment Noted Time A fall risk assessment has been complete d for the patient 04/06/2025 10:27 AM EDT A Body Mass Index follow-up plan has been documented for the patient 04/06/2025 12:11 PM EDT documented as of this encounter Care Teams Retail Brand Ambassador Relationship Specialty Start Date End Date Casa Phillips MD [address] [place] [address] PCP - General 02/22/25 Forrest Nickerson APRN [address] [place] [address] 03/06/23 documented as of this encounter
--- OUTSIDE RECORDS SUMMARY | 2025-06-10 12:48 | XMS_ITS ---
Author Organization [facility] Address [address] [place] [address] Care Team Providers Care Bartender Server Name Role Phone Zari Nickersonhéctor [place] UTILITY DRIVER Unavailable [phone] Casa Phillips MD Primary Care Provider [phone] Active Problems Problem Noted Date Diagnosed Date [...]
--- OUTSIDE RECORDS SUMMARY | 2025-06-10 12:48 | XMS_ITS | Encounter Summary ---
Author Organization [facility] Address [address] [place] [address] Care Team Providers Care Legal Activity Adjudicator Name Role Phone Demetrio Nickersonann [place] SWEET PICKLE MAKER Unavailable [phone] Casa Phillips MD Primary Care Provider [phone] Encounter Details Date Type Department Care Team (Late st Contact Info) Description 04/20/2025 Telephone Pav CC Head, Neck & Respiratory [address], [address]nd [place] [address] Ирина Lopez MD [address] [facility] [address] [place] [address] Social History Tobacco Use Types [...] any time in the past 12 m [facility], were you homeless or living [...] regarding pain medication not being sent to [facility] in [place]. I confirmed it was sent at 11:42am. documented in this encounter Plan of Treatment Upcoming Encounters Date Type Department Care Team (Late st Contact Info) Description 07/06/2025 10:40 AM EDT Office Visit Pav CC Head, Neck & Respiratory [address] [facility], [address]nd [place] [address] Nikolai Naranjo MD [address] [facility] [address] [place] [address] documented as of this encounter Visit Diagnoses Not on filedocumented in this encounter Additional Health Concerns Assessment Noted Time A fall risk assessment has been complete d for the patient 04/20/2025 10:24 AM EDT A Body Mass Index follow-up plan has been documented for the patient 04/23/2025 4:10 PM EDT documented as of this encounter Care Teams Legal Activity Adjudicator Relationship Specialty Start Date End Date Casa Phillips MD [address] [place] [address] PCP - General 02/22/25 Forrest Nickerson APRN [address] [place] [address] 03/06/23 documented as of this encounter
--- OUTSIDE RECORDS SUMMARY | 2025-06-10 12:48 | XMS_ITS | Encounter Summary ---
Author Organization [facility] Address [address] [place] [address] Care Team Providers Care Inside Meter Tester Name Role Phone Deep Keen APRN Primary Care Provider [phone] Forrest Nickerson APRN Unavailable [phone] Casa Phillips MD Primary Care Provider [phone] Encounter Details Date Type Department Care Team (Late Contact Info) Description 05/12/2024 Orders Only External Location [address] [place] [id number] Provider, External Social History Tobacco Use Types [...] Pav CC Head, Neck & Respiratory 800 [facility], [address] [place] [address] Nikolai Naranjo MD [address] [facility] [address] [place] [address] documented as of this encounter Procedures Procedure [...] documented as of this encounter Care Teams Inside Meter Tester Relationship Specialty Start Date End Date Deep Keen APRN [address] [place] [address] PCP - General 03/06/23 02/21/25 Casa Phillips MD [address] [place] [address] PCP - General 02/22/25 Forrest Nickerson APRN [address] [place] [address] 03/06/23 documented as of this encounter
--- OUTSIDE RECORDS SUMMARY | 2025-06-10 12:48 | XMS_ITS | Clinical Summary ---
Author Organization [facility] ([place], [place], [place], [place]) Address [address] [place] [address] Care Team Providers Care Mother Baby Rn Name Role Phone Unavailable Primary Care Provider [...] Date Terrance rded Speak language other than Lithuanian at home Not on file 11/01/2023 Want [...] Advance Directives For more information, please contact: [phone] * Full Code (Latest Code Status on File) Date Activated Date Inactivated Comments 05/31/2023 2:57 AM 06/05/2023 3:16 PM -Attempt Res uscitation if person has no pulse and is not breathing. -If no pulse or not breathing attempt CPR/CODE. -Call Rapid Response if patient is in distress.
--- OUTSIDE RECORDS SUMMARY | 2025-06-10 12:48 | XMS_ITS | Encounter Summary ---
Author Organization [facility] Address [address] [place] [address] Care Team Providers Care Pulp Beater Name Role Phone Demetrio Nickersonann Cardenas COAL BRIQUETTE MACHINE OPERATOR Unavailable [phone] Casa Phillips MD Primary Care Provider [phone] Encounter Details Date Type Department Care Team (Late st Contact Info) Description 05/31/2025 Telephone Pav CC Head, Neck & Respiratory 800 [facility], [address]nd [place] [address] Nikolai Naranjo MD 800 [facility] [address] [place] [address] Social History Tobacco Use Types [...] Telephone Encounter - Aishwarya Dye RN - 05/31/2025 4:10 PM EDT Spoke to Nora (daughter). Patient is getting his treatments with Dr Rosales. I explain to Nora that Dr Rosales will need to complete the [place] paperwork. * Telephone Encounter - Sexton, Windy Blanco - 05/31/2025 2:51 PM EDT Patient daughter is wondering about [place] paperwork, said papers were sent from our office to the FMLA office but nothing was filled out. Pt daughter said they were sent either last or Saturday, but nothing was done additionally to the paperwork. Please call Nora back at [phone]. documented in this encounter Plan of Treatment Upcoming Encounters Date Type Department Care Team ([facility] st Contact Info) Description 07/06/2025 10:40 AM EDT Office Visit Pav CC Head, Neck & Respiratory [address] [facility], [address] [place] [address] Nikolai Naranjo MD 800 [facility] [address] [place] [address] documented as of this encounter Visit Diagnoses Not on filedocumented in this encounter Additional Health Concerns Assessment Noted Time A fall risk assessment has been complete d for the patient 04/20/2025 10:24 AM EDT A Body Mass Index follow-up plan has been documented for the patient 04/23/2025 4:10 PM EDT documented as of this encounter Care Teams Pulp Beater Relationship Specialty Start Date End Date Casa Phillips MD [address] [place] [address] PCP - General 02/22/25 Forrest Nickerson APRN [address] [place] [address] 03/06/23 documented as of this encounter
--- OUTSIDE RECORDS SUMMARY | 2025-06-10 12:48 | XMS_ITS | Encounter Summary ---
Author Organization [facility] Address [address] [place] [address] Care Team Providers Care Rand Cementer Name Role Phone Demetrio Nickersonann Cardenas ORNAMENTAL IRON ERECTOR Unavailable [phone] Casa Phillips MD Primary Care Provider [phone] Encounter Details Date Type Department Care Team (Late st Contact Info) Description 05/27/2025 Telephone Pav CC Head, Neck & Respiratory 800 [facility], [address]nd [place] [address] Nikolai Naranjo MD 800 [facility] [address] [place] [address] Social History Tobacco Use Types [...] any time in the past 12 m [facility], were you homeless or living [...] encounter Miscellaneous Notes * Telephone Encounter - Bradley Hartmann - 05/28/2025 1:15 PM EDT Patient's daughter called back. Emailed [facility] paperwork to me and explained that dates needed to be edited to reflect his chemotherapy treatments, and physician needed to sign and date again. Forwarded to RN for review and let patient's daughter know. Patient's daughter verbalized understanding and said she would message with the appropriate fax number to send the paperwork to later today. She also said she gets off work at 3 and asked to wait to be called again if needed until then. * Telephone Encounter - Bradley Hartmann - 05/28/2025 10:21 AM EDT Attempted to call patient, no answer. Left message and callback number. * Telephone Encounter - Windy Sexton - 05/27/2025 2:08 PM EDT Patient is needing FMLA paperwork extended, resigned and dated, then faxed back over. He is needingthis extended because it the other day and now he is getting chemo treatment. Please call the daughter Nora back with any questions or concerns [phone] documented in this encounter Plan of Treatment Upcoming Encounters Date Type Department Care Team ([facility] Contact Info) Description 07/06/2025 10:40 AM EDT Office Visit Pav CC Head, Neck & Respiratory [address] [facility], [address] [place] [address] Nikolai Naranjo MD 800 [facility] [address] [place] [address] documented as of this encounter Visit Diagnoses Not on filedocumented in this encounter Additional Health Concerns Assessment Noted Time A fall risk assessment has been complete d for the patient 04/20/2025 10:24 AM EDT A Body Mass Index follow-up plan has been documented for the patient 04/23/2025 4:10 PM EDT documented as of this encounter Care Teams Rand Cementer Relationship Specialty Start Date End Date Casa Phillips MD [address] [place] [address] PCP - General 02/22/25 oFrrest Nickerson APRN [address] [place] [address] 03/06/23 documented as of this encounter
--- OUTSIDE RECORDS SUMMARY | 2025-06-10 12:48 | XMS_ITS | Encounter Summary ---
Author Organization [facility] Address [address] [place] [address] Care Team Providers Care Top Case Assembler Name Role Phone Forrest Nickerson GARDENING MANAGER Unavailable [phone] Casa Phillips MD Primary Care Provider [phone] Encounter Details Date Type Department Care Team [...] time in the past 12 m [facility], were you homeless or living in a [...] Upcoming Encounters Date Type Department Care Team ([facility] Contact Info) Description 07/06/2025 10:40 AM EDT Office Visit Pav CC Head, Neck & Respiratory 800 [facility], [address] [place] [address] Nikolai Naranjo MD 800 [facility] [address] [facility] [address] [place] [address] documented as of this encounter Visit Diagnoses Not on filedocumented in this encounter Additional Health Concerns Assessment Noted Time A fall risk assessment has been complete d for the patient 04/20/2025 10:24 AM EDT A Body Mass Index follow-up plan has been documented for the patient 04/23/2025 4:10 PM EDT documented as of this encounter Care Teams Top Case Assembler Relationship Specialty Start Date End Date Casa Phillips MD [address] [place] [address] PCP - General 02/22/25 Forrest Nickerson APRN [address] [place] [address] 03/06/23 documented as of this encounter
--- OUTSIDE RECORDS SUMMARY | 2025-06-10 12:48 | XMS_ITS | Encounter Summary ---
Author Organization [facility] Address [address] [place] [address] Care Team Providers Care Lacing Cutter Name Role Phone Demetrio Nickersonann [place] LIFE ENRICHMENT MANAGER Unavailable [phone] Casa Phillips MD Primary Care Provider [phone] Encounter Details Date Type Department Care Team (Late st Contact Info) Description 04/19/2025 Telephone Pav CC Head, Neck & Respiratory [address] [place] [address] Manny Lopez MD [address] [place] [address] Social History Tobacco Use Types Packs/Day Years [...] - 04/19/2025 1:15 PM EDT Branden at [facility] [phone] called for lon said to call him back documented in this encounter Plan of Treatment Upcoming Encounters Date Type Department Care Team (Late st Contact Info) Description 07/06/2025 10:40 AM EDT Office Visit Pav CC Head, Neck & Respiratory [address] [facility], [address] [place] [address] Nikolai Naranjo MD [address] [facility] [address] [place] [address] documented as of this encounter Visit Diagnoses Not on filedocumented in this encounter Additional Health Concerns Assessment Noted Time A fall risk assessment has been complete d for the patient 04/06/2025 10:27 AM EDT A Body Mass Index follow-up plan has been documented for the patient 04/06/2025 12:11 PM EDT documented as of this encounter Care Teams Lacing Cutter Relationship Specialty Start Date End Date Casa Phillips MD [address] [place] [address] PCP - General 02/22/25 Forrest Nickerson APRN [address] [place] [address] 03/06/23 documented as of this encounter
--- OUTSIDE RECORDS SUMMARY | 2025-06-10 12:48 | XMS_ITS | Clinical Summary ---
Author Organization [facility] Address [address] [place] [address] Care Team Providers Care Animal Treatment Investigator Name Role Phone Demetrio trevinoann Cardenas [employer] Unavailable [phone] Casa Phillips MD Primary Care Provider [phone] Allergies Active Allergy Reactions Criticality Noted Date [...] other nostril if symptoms continue 1 each Active Active Problems Problem Noted Date Diagnosed [...] Encounters Date Type Department Care Team Description 05/31/2025 Telephone [facility] Head[facility] Neck [facility] Respiratory [address] [phone] Nikolai Naranjo MD 05/27/2025 Telephone [facility] Head[facility] Neck & Respiratory 800 [facility], [address] [place] [address] Nikolai Naranjo MD 04/20/2025 10:30 AM EDT Office Visit [facility] Head[facility] Neck & Respiratory [address] [phone] Ирина Lopez MD 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) (Primary Dx) 04/20/2025 10:00 AM EDT - 04/20/2025 11:59 PM EDT Hospital Encounter [facility] Radiology 800 [place] [address] Non-small cell cancer of left lung (CMS/HCC) Discharge Disposition: Home or Self Care 04/20/2025 Telephone [facility] Head[facility] Neck & Respiratory [address] [phone] Ирина Lopez MD 04/20/2025 Travel 04/19/2025 Telephone [facility] Head[facility] Neck & Respiratory [address] [phone] Manny Lopez MD 04/07/2025 Telephone [facility] Hematology/BMT and Cellular Therapy Program [address] [phone] [facility] 04/07/2025 Telephone [facility] Hematology/BMT and Cellular Therapy Program [address] [address] [facility] 04/07/2025 Telephone [facility] Hematology/BMT and Cellular Therapy Program [address] [place] [phone] [facility] 04/07/2025 Telephone [facility] Head, Neck & Respiratory [address] [phone] Aishwarya Dye RN 04/06/2025 11:30 AM EDT Office Visit [facility] Head[facility] Neck & Respiratory [address] [phone] Ирина Lopez MD Non-small cell cancer of left lung (CMS/HCC) (Primary Dx) 04/06/2025 10:40 AM EDT Office Visit [facility] Head[facility] Neck & Respiratory [address] [phone] Nikolai Naranjo MD Non-small cell cancer of left lung (CMS/HCC) (Primary Dx); CKD (chronic kidney disease) stage 2, GFR 60-89 ml/min; Tobacco use disorder; Essential hypertension; Type 2 diabetes mellitus with stage 2 chronic kidney disease, without long-term current use of insulin (CMS/HCC) 04/06/2025 Telephone [facility] Head[facility] Neck & Respiratory [address] [address] Nikolai Naranjo MD 04/06/2025 Travel 04/04/2025 Travel 04/03/2025 Travel 04/02/2025 Travel 04/01/2025 Travel 03/31/2025 Travel 03/30/2025 Travel 03/29/2025 1:34 PM EDT Anesthesia Event [facility] OPERATING ROOM [address] Jimmy Kim MD Bliss, Emily G, MD 03/29/2025 12:10 PM EDT - 03/29/2025 4:50 PM EDT Surgery [facility] OPERATING RO[facility] [address] Ирина Lopez MD LEFT VATS LOBECTOMY coverted to open, Left thoracotomy, with medistinal lymph node disection and lypoma [[id number] (CPT )] 03/29/2025 9:43 AM EDT - 04/04/2025 12:18 PM EDT Hospital Encounter [facility] A Inpatient [address] [place] [phone] Ирина Lopez MD Non-small cell cancer of left lung (CMS/HCC) Discharge Disposition: Home or Self Care 03/29/2025 Travel 03/18/2025 Travel 03/11/2025 Telephone [facility] Head, Neck & Respiratory [address] [phone] Ирина Lopez MD from Last 3 Months Family History Medical [...] time in the past [address] [facility], were you homeless or living [...] 800 [facility], [address]nd [place] [address] Nikolai Naranjo MD 800 [facility] [address] [place] [address] Health Maintenance Due Date Last Done Comments [facility]-Depression Screening 1945 [facility]-Diabetes: Hemoglobin A1C 1945 [facility]-Hepatitis C Screening 1945 [facility]-Medicare Annual Wellness (AWV) 1945 [facility]-Infant/Child/Adol SDOH Screenings 1945 [id number] Vaccine (#1) 1951 Diabetes: Dental Exam 1956 [...] ANESTHESIA PLACEHOLDER Routine 03/29/2025 1:48 PM EDT VT AN ELECTIVE ENDOTRACHEAL AIRWAY Routine 03/29/2025 1:48 PM EDT VT THORACOSCOPY SURG LOBECTOMY 03/29/2025 1:24 PM EDT Non-small cell cancer of left lung (CMS/HCC) POCT GLUCOSE METER UNSOLICITED RESULTS Routine 03/29/2025 12:48 PM EDT BLOOD GAS PANEL, VENOUS Routine 03/29/2025 12:27 PM EDT TYPE AND SCREEN Routine 03/29/2025 12:27 PM EDT from Last 3 Months Results * [...] Comment 04/04/2025 8:36 AM EDT [facility]ARE [facility] Bread Jockey ID Sandy Kramer 04/04/2025 8:36 AM EDT HEALTHCARE LAB Device ID [id number] 04/04/2025 8:36 AM EDT HEALTHCARE LAB Specimen Type POC Capillary 04/04/2025 8:36 AM EDT HEALTHCARE LAB Blood Capillary blood specimen / Unknown 04/04/2025 8:34 AM EDT 04/04/2025 8:36 AM EDT us Ирина Lopez MD LAB POINT OF CARE TE ST DOCKED DEVICE UNSOLICITED RESULTS Final Result [facility] [address] [place] [address] * XR Chest 1 View (04/04/2025 5:20 [...] MD on 04/04/2025 10:20 AM Scarlet Gamboa [employer] IMG XR PROCEDURES Final Resul t * (ABNORMAL) CBC W/O Differential (04/04/2025 2:19 AM EDT) Only the most recent of8 resultswithin the time period is included. WBC Count 5.44 3.70 - 10.30 10*3/uL LAB HEMATOLOGY METHOD 04/04/2025 2:33 AM EDT [facility] RBC Count 3.77(L) 4.60 - 6.10 10*6/uL LAB HEMATOLOGY METHOD 04/04/2025 2:33 AM EDT [facility] HGB 10.7(L) 13.7 - 17.5 g/dL LAB HEMATOLOGY METHOD 04/04/2025 2:33 AM EDT [facility] HCT 32.4(L) 40.0 - 51.0 % LAB HEMATOLOGY METHOD 04/04/2025 2:33 AM EDT [facility] Platelet Count 220 155 - 369 10*3/uL LAB HEMATOLOGY METHOD 04/04/2025 2:33 AM EDT [facility] MCV 86 79 - 98 fL LAB HEMATOLOGY METHOD 04/04/2025 2:33 AM EDT [facility] MCH 28.4 26.0 - 32.0 pg LAB HEMATOLOGY METHOD 04/04/2025 2:33 AM EDT [facility] MCHC 33.0 30.7 - 35.5 g/dL LAB HEMATOLOGY METHOD 04/04/2025 2:33 AM EDT [facility] RDW 14.7(H) 11.5 - 14.5 % LAB HEMATOLOGY METHOD 04/04/2025 2:33 AM EDT [facility] MPV 9.1 8.8 - 12.5 fL LAB HEMATOLOGY METHOD 04/04/2025 2:33 AM EDT [facility] nRBC 0.4(H) <=0.0 per 100 WBCs LAB HEMATOLOGY METHOD 04/04/2025 2:33 AM EDT [facility] Blood Venous blood specimen / Unknown Venipuncture / Unknown 04/04/2025 2:19 AM EDT 04/04/2025 2:24 AM EDT Ирина Lopez MD LAB BLOOD ORDERABLES Final R esult Performing Organization Address City/[facility] Co de Phone Number [facility] [address] [place] [address] * (ABNORMAL) Magnesium, Plasma (04/04/2025 2:19 AM EDT) Only the most recent of8 resultswithin the time period is included. Magnesium, Plasma 1.8(L) 1.9 - 2.4 mg/dL 04/04/2025 2:53 AM EDT [facility] Blood Venous blood specimen / Unknown Venipuncture / Unknown 04/04/2025 2:19 AM EDT 04/04/2025 2:24 AM EDT Ирина Lopez MD LAB BLOOD ORDERABLES Final R esult Performing Organization Address City/[facility]/ZIP Co de Phone Number [facility] [address] [place] [address] * (ABNORMAL) Renal Function Panel, Plasma (04/04/2025 2:19 AM EDT) Only the most recent of8 resultswithin the time period is included. Glucose, Plasma 166(H) 74 - 99 mg/dL 04/04/2025 2:53 AM EDT [facility] BUN, Plasma 18 8 - 23 mg/dL 04/04/2025 2:53 AM EDT [facility] Creatinine, Plasma 1.31(H) 0.70 - 1.20 mg/dL 04/04/2025 2:53 AM EDT [facility] BUN/Creatinine Ratio 14 04/04/2025 2:53 AM EDT [facility] Sodium, Plasma 136 136 - 145 mmol/L 04/04/2025 2:53 AM EDT [facility] Potassium, Plasma 4.3 3.6 - 4.9 mmol/L 04/04/2025 2:53 AM EDT [facility] Chloride, Plasma 103 97 - 107 mmol/L 04/04/2025 2:53 AM EDT [facility] CO2, Plasma 22 22 - 29 mmol/L 04/04/2025 2:53 AM EDT [facility] Anion Gap 11 6 - 16 mmol/L 04/04/2025 2:53 AM EDT [facility] Total Calcium, Plasma 8.2(L) 8.9 - 10.2 mg/dL 04/04/2025 2:53 AM EDT [facility] Phosphorus, Plasma 3.1 2.5 - 4.5 mg/dL 04/04/2025 2:53 AM EDT [facility] Albumin, Plasma 3.0(L) 3.5 - 5.2 g/dL 04/04/2025 2:53 AM EDT [facility] eGFRcr 55.7 mL/min/1.7 3m*2 04/04/2025 2:53 AM EDT [facility] Comment:Reported eGFRcr in m L/min/1.73m2 is based the CKD-EPI 2020 equation that does not use a race coefficient. Blood Venous blood specimen / Unknown Venipuncture / Unknown 04/04/2025 2:19 AM EDT 04/04/2025 2:24 AM EDT us Ирина Lopez MD LAB BLOOD ORDERABLES Final R esult [facility] [address] [place] [address] * Transfuse RBC (04/02/2025 2:53 PM EDT) [...] the time period is included. Product Code [id number] BLOO D BANK Dispense Status Transfused BLOOD BANK Blood Expiration Date [id number] BLOOD BANK Unit Number [id number] CH B LOOD BANK Product Blood Type 6200 BLOOD BANK Blood Type A+ BLOOD BANK Crossmatch Compatible BLOOD BANK Product Code [id number] BLOO D BANK Dispense Status Transfused BLOOD BANK Blood Expiration Date [id number] BLOOD BANK Unit Number [id number] CH B LOOD BANK Product Blood Type 6200 BLOOD BANK Blood Type A+ BLOOD BANK Crossmatch Compatible BLOOD BANK Other Scarlet Gamboa APRN BLOOD BANK PRODUCT ORDERABLES Final Result BLOOD BANK [address] [place] [address], * Type and Screen (04/02/2025 6:36 AM [...] ES Final Result Performing Organization Address [facility] Co de Phone Number BLOOD BANK [address] [place] [address], * ECG Adult (03/30/2025 8:37 AM EDT) EKG DIAGNOSIS CLASS Abnormal MUSE ECG Ventricular Rate 81 BPM MUSE ECG Atrial Rate 81 BPM MUSE ECG VT Interval 170 ms MUSE ECG QRSD Interval 104 ms MUSE ECG QT Interval 416 ms MUSE ECG QTC Interval 483 ms MUSE ECG P [place] 39 degrees MUSE ECG R [place] -51 degrees MUSE ECG T Wave [place] -15 degrees MUSE ECG Diagnosis Poor data [...] ECG ORDERABLES Final Result Performing Organization Address City/[facility] Co de Phone Number MUSE ECG * Creatinine, Plasma (03/29/2025 7:58 PM EDT) Creatinine, Plasma 1.08 0.70 - 1.20 mg/dL 03/29/2025 8:39 PM EDT [facility] eGFRcr 70.2 mL/min/1.7 3m*2 03/29/2025 8:39 PM EDT [facility] Comment:Reported eGFRcr in m L/min/1.73m2 is based the CKD-EPI 2020 equation that does not use a race coefficient. Blood Arterial blood specimen / Unknown Arterial Puncture / Unknown 03/29/2025 7:58 PM EDT 03/29/2025 8:05 PM EDT us Ирина Lopez MD LAB BLOOD ORDERABLES Final R esult [facility] [address] [place] [address] * Protime-INR (03/29/2025 7:58 PM EDT) Only the most recent of2 resultswithin the time period is included. Prothrombin Time 13.8 12.0 - 14.3 sec LAB COAGULATION METHOD 03/29/2025 8:38 PM EDT [facility] INR 1.0 0.9 - 1.1 LAB COAGULATION METHOD 03/29/2025 8:38 PM EDT [facility] Blood Arterial blood specimen / Unknown Arterial Puncture / Unknown 03/29/2025 7:58 PM EDT 03/29/2025 8:05 PM EDT Narrative [facility] - 03/29/2025 8:38 PM EDT OPTIMAL INR RANGES FOR PATIENT ON ORAL ANTICOAGULANT THERAPY Prevention of venous thromboembolism INR 2.0 to 3.0 In patients with heart disease: Atrial fibrillation INR 2.0 to 3.0 Valvular heart disease INR 2.0 to 3.0 Tissue heart valves INR 2.0 to 3.0 Mechanical prosthetic valves INR 2.5 to 3.5 Prevention of recurrent ID INR 2.5 to 3.5 us Kiana Gusman CRNA LAB BLOOD ORDERABLES Final R esult [facility] [address] [place] [address] * Fibrinogen (03/29/2025 7:58 PM EDT) Only the most recent of2 resultswithin the time period is included. Pathologist [facility] Fibrinogen, Quantitative (Clottable) 294 208 - 459 mg/dL LAB COAGULATION METHOD 03/29/2025 8:38 PM EDT [facility] Blood Arterial blood specimen / Unknown Arterial Puncture / Unknown 03/29/2025 7:58 PM EDT 03/29/2025 8:05 PM EDT Kiana Gusman CRNA LAB BLOOD ORDERABLES Final R esult Performing Organization Address [facility]/ZIP Co de Phone Number [facility] [address] [place] [address] * (ABNORMAL) CBC and differential (03/29/2025 7:58 PM EDT) Pathologist [facility] WBC Count 8.18 3.70 - 10.30 10*3/uL LAB HEMATOLOGY METHOD 03/29/2025 8:29 PM EDT [facility] RBC Count 3.11(L) 4.60 - 6.10 10*6/uL LAB HEMATOLOGY METHOD 03/29/2025 8:29 PM EDT [facility] HGB 9.2(L) 13.7 - 17.5 g/dL LAB HEMATOLOGY METHOD 03/29/2025 8:29 PM EDT [facility] HCT 27.7(L) 40.0 - 51.0 % LAB HEMATOLOGY METHOD 03/29/2025 8:29 PM EDT [facility] Platelet Count 174 155 - 369 10*3/uL LAB HEMATOLOGY METHOD 03/29/2025 8:29 PM EDT [facility] MCV 89 79 - 98 fL LAB HEMATOLOGY METHOD 03/29/2025 8:29 PM EDT [facility] MCH 29.6 26.0 - 32.0 pg LAB HEMATOLOGY METHOD 03/29/2025 8:29 PM EDT [facility] MCHC 33.2 30.7 - 35.5 g/dL LAB HEMATOLOGY METHOD 03/29/2025 8:29 PM EDT [facility] RDW 12.6 11.5 - 14.5 % LAB HEMATOLOGY METHOD 03/29/2025 8:29 PM EDT [facility] MPV 9.3 8.8 - 12.5 fL LAB HEMATOLOGY METHOD 03/29/2025 8:29 PM EDT [facility] nRBC 0.0 <=0.0 per 100 WBCs LAB HEMATOLOGY METHOD 03/29/2025 8:29 PM EDT [facility] Differential Type Automated LAB HEMATOLOGY METHOD 03/29/2025 8:29 PM EDT [facility] Neutrophils % 86 % LAB HEMATOLOGY METHOD 03/29/2025 8:29 PM EDT [facility] Lymphocytes % 9 % LAB HEMATOLOGY METHOD 03/29/2025 8:29 PM EDT [facility] Monocytes % 5 % LAB HEMATOLOGY METHOD 03/29/2025 8:29 PM EDT [facility] Eosinophils % 0 % LAB HEMATOLOGY METHOD 03/29/2025 8:29 PM EDT [facility] Basophils % 0 % LAB HEMATOLOGY METHOD 03/29/2025 8:29 PM EDT [facility] Immature Granulocytes % 0 % LAB HEMATOLOGY METHOD 03/29/2025 8:29 PM EDT [facility] Neutrophils Absolute 7.00(H) 1.60 - 6.10 10*3/uL LAB HEMATOLOGY METHOD 03/29/2025 8:29 PM EDT [facility] Lymphocytes Absolute 0.71(L) 1.20 - 3.90 10*3/uL LAB HEMATOLOGY METHOD 03/29/2025 8:29 PM EDT [facility] Monocytes Absolute 0.40 0.30 - 0.90 10*3/uL LAB HEMATOLOGY METHOD 03/29/2025 8:29 PM EDT [facility] Eosinophils Absolute 0.02 0.00 - 0.50 10*3/uL LAB HEMATOLOGY METHOD 03/29/2025 8:29 PM EDT [facility] Basophils Absolute 0.02 0.00 - 0.10 10*3/uL LAB HEMATOLOGY METHOD 03/29/2025 8:29 PM EDT [facility] Immature Granulocytes Absolute 0.03 0.00 - 0.06 10*3/uL LAB HEMATOLOGY METHOD 03/29/2025 8:[address] [facility] Blood Arterial blood specimen / Unknown Arterial Puncture / Unknown 03/29/2025 7:58 PM EDT 03/29/2025 8:04 PM EDT Narrative [facility] - 03/29/2025 8:29 PM EDT Therapeutic decision making should be based on absolute values, rather than percentages. us Kiana Gusman [facility] LAB BLOOD ORDERABLES Final R esult [facility] [address] [place] [address] * Surgical Pathology Exam (03/29/2025 5:10 PM EDT) Case Report Surgical Pathology Case: [id number] Authorizing Provider: Ирина Lopez MD Collected: 03/29/2025 1716 Ordering Location: [facility] OPERATING ROOM Received: 03/30/2025 0755 Pathologist: [...] Other (specify site), lipoma 2:[address] [facility] Final Diagnosis A. LUNG, BRONCHIAL MARGIN, EXCISION, [...] TISSUE, EXCISION: - LIPOMA. 2:[address] [facility] at 1445 EDT Synoptic Checklist LUNG [...] pN Category: pN0 5 2:45 PM EDT [facility] Clinical Information Non-small cell cancer of left lung 5 2:45 PM EDT [facility] Intraoperative Consultation A. BRONCHIAL MARGIN FSA: No tumor seen. Todd Gibbs MD. 03/29/2025 @ 1745. 5 2:45 PM EDT [facility] Special and Immunohistochemical Stains Special Stain: F7-2 Elastic Trichrome: Demonstrates visceral pleural invasion F8-2 Elastic Trichrome: Demonstrates visceral pleural invasion All controls show appropriate reactivity. All immunohistochemis try, in situ hybridization, and histochemical tests were developed by and are performed at the [facility], [address] [place] [address]. All tests reported here, except those addressing [...] on decalcified specimens. 5 2:45 PM EDT [facility] Gross Description A. BRONCHIAL MARGIN The specimen is received fresh for frozen section, labeled b ronchial margin , and consists of a 1.5 x 1.0 x 0.4 cm leggett-pink portion of soft tissue. The specimen is entirely submitted for frozen section, and remainder of the block is submitted in cassette A1. SWATI Wong ([facility]) B. LEVEL 5 LYMPH NODE X1 The [...] 0.3-0.6 cm in greatest dimension are identified. Content Producer sections are submitted as follows: F1: Bronchial margin F2: Vascular margins F3: Nearest stapled margin, en face F4: Grossly unremarkable parenchyma F5-F10: Mass, entirely submitted F11: Two intact lymph nodes Cold Time: 13h 43m SWATI Wong ([facility]) G. LIPOMA The specimen is received fresh and placed in formalin, labeled l ipoma , and consists of a 5.8 x 5.6 x 2.1 cm unoriented portion of leggett-yellow lobulated fibroadipose tissue. The external surface is inked blue. Sectioning reveals a leggett-yellow lobulated cut surface. No areas of hemorrhage or necrosis are identified. Content Producer sections are submitted in cassettes G1-G3. Cold Time: 13h 05m SWATI Wong (ASCP) 2:45 PM EDT [facility] Note: A resident was involved in the service. I attest I examined the relevant preparations for the specimens and confirmed the diagnosis or interpretation. 2:45 PM EDT [facility] Tissue Structure of lymph [...] MD LAB PATHOLOGY ORDERABLES Fin al Result [facility] [address] [place] [address] * (ABNORMAL) Blood gas panel, arterial (03/29/2025 4:05 PM EDT) Only the most recent of2 resultswithin the time period is included. pH, Arterial 7.38 7.31 - 7.42 LAB HEMATOLOGY METHOD 03/29/2025 4:13 PM EDT [facility] pCO2, Arterial 45 32 - 45 mmHg LAB HEMATOLOGY METHOD 03/29/2025 4:13 PM EDT [facility] pO2, Arterial 216 >70 mmHg LAB HEMATOLOGY METHOD 03/29/2025 4:13 PM EDT [facility] SO2, Measured, Arterial 100(H) 94 - 98 % LAB HEMATOLOGY METHOD 03/29/2025 4:13 PM EDT [facility] Base Excess, Arterial 1.2 -2.0 - 3.0 mmol/L LAB HEMATOLOGY METHOD 03/29/2025 4:13 PM EDT [facility] Bicarbonate, Calculated, Arterial 27(H) 22 - 26 mmol/L LAB HEMATOLOGY METHOD 03/29/2025 4:13 PM EDT [facility] Hematocrit, Whole Blood 31.6(L) 40.0 - 51.0 % LAB HEMATOLOGY METHOD 03/29/2025 4:13 PM EDT [facility] Sodium, Whole Blood 138 136 - 145 mmol/L LAB HEMATOLOGY METHOD 03/29/2025 4:13 PM EDT [facility] Potassium, Whole Blood 3.8 3.6 - 4.9 mmol/L LAB HEMATOLOGY METHOD 03/29/2025 4:13 PM EDT [facility] Chloride, Whole Blood 103 97 - 107 mmol/L LAB HEMATOLOGY METHOD 03/29/2025 4:13 PM EDT [facility] Glucose, Whole Blood 123(H) 74 - 99 mg/dL LAB HEMATOLOGY METHOD 03/29/2025 4:13 PM EDT [facility] Ionized Calcium, Whole Blood 4.4(L) 4.6 - 5.1 mg/dL LAB HEMATOLOGY METHOD 03/29/2025 4:13 PM EDT [facility] Lactate, Arterial, Whole Blood 0.8 0.5 - 1.6 mmol/L LAB HEMATOLOGY METHOD 03/29/2025 4:13 PM EDT [facility] Blood Arterial blood specimen / Unknown 03/29/2025 4:05 PM EDT 03/29/2025 4:11 PM EDT Comment:Pre-op diagnosis: Non-small cell cancer of left lung us Ирина Lopez MD LAB BLOOD ORDERABLES Final R esult Performing Organization Address City/[facility] Co de Phone Number [facility] [address] [place] [address] * APTT (03/29/2025 4:04 PM EDT) aPTT 28 25 - 35 sec LAB COAGULATION METHOD 03/29/2025 4:39 PM EDT [facility] Blood Arterial blood specimen / Unknown 03/29/2025 4:04 PM EDT 03/29/2025 4:18 PM EDT Comment:Pre-op diagnosis: Non-small cell cancer of left lung us Ирина Lopez MD LAB BLOOD ORDERABLES Final R esult Performing Organization Address City/[facility]/ZIP Co de Phone Number [facility] [address] [place] [address] * Peripheral IV (03/29/2025 2:00 PM EDT) [...] procedure well with no complications. Staffing Performed: STOCK CLERK SELF SERVICE STORE Robert Santos MD ANESTHESIA ORDERABLES Edited Re sult - Final * VT AN ELECTIVE ENDOTRACHEAL AIRWAY, PB ANESTHESIA PLACEHOLDER (03/29/2025 1:48 PM EDT) Robert Bloom MD - 03/29/2025 1:48 PM EDT Robert Santos MD 03/29/2025 3:02 PM Airway Date/Time: 03/29/2025 1:48 PM Reason: elective Airway not difficult General Information and Staff Patient location during procedure: OR STOCK CLERK [facility]ICE STORE: Kiana Gusman STOCK CLERK [facility]ICE STORE Performed: STOCK CLERK SELF SERVICE STORE Patient Condition Indications for airway management: anesthesia [...] LAB HEMATOLOGY METHOD 03/29/2025 12:51 PM EDT [facility] pCO2, Venous 49 40 - 55 mmHg LAB HEMATOLOGY METHOD 03/29/2025 12:51 PM EDT [facility] pO2, Venous 54(H) 25 - 40 mmHg LAB HEMATOLOGY METHOD 03/29/2025 12:51 PM EDT [facility] SO2, Measured, Venous 87(H) 65 - 80 % LAB HEMATOLOGY METHOD 03/29/2025 12:51 PM EDT [facility] Base Excess, Venous 1.7 -2.0 - 3.0 mmol/L LAB HEMATOLOGY METHOD 03/29/2025 12:51 PM EDT [facility] Bicarbonate, Calculated, Venous 28(H) 22 - 26 mmol/L LAB HEMATOLOGY METHOD 03/29/2025 12:51 PM EDT [facility] Hematocrit, Whole Blood 39.2(L) 40.0 - 51.0 % LAB HEMATOLOGY METHOD 03/29/2025 12:51 PM EDT [facility] Sodium, Whole Blood 140 136 - 145 mmol/L LAB HEMATOLOGY METHOD 03/29/2025 12:51 PM EDT [facility] Potassium, Whole Blood 4.0 3.6 - 4.9 mmol/L LAB HEMATOLOGY METHOD 03/29/2025 12:51 PM EDT [facility] Chloride, Whole Blood 103 97 - 107 mmol/L LAB HEMATOLOGY METHOD 03/29/2025 12:51 PM EDT [facility] Glucose, Whole Blood 97 74 - 99 mg/dL LAB HEMATOLOGY METHOD 03/29/2025 12:51 PM EDT [facility] Lactate, Venous, Whole Blood 1.6 0.5 - 2.2 mmol/L LAB HEMATOLOGY METHOD 03/29/2025 12:51 PM EDT [facility] Ionized Calcium, Whole Blood 4.5(L) 4.6 - 5.1 mg/dL LAB HEMATOLOGY METHOD 03/29/2025 12:51 PM EDT [facility] Blood Venous blood specimen / Unknown Venipuncture / Unknown 03/29/2025 12:27 PM EDT 03/29/2025 12:49 PM EDT us Robert Santos MD LAB BLOOD ORDERABLES Final Resu lt [facility] [address] [place] [address] from Last 3 Months Insurance [facility] MED[facility]ARE [facility] MED[facility] Advance Directives * Full Code (Latest Code Status on File) Date Activated Date Inactivated Comments 03/29/2025 7:30 PM 04/04/2025 2:23 PM Question Answer Comments I have reviewed the capacity from the link above and, if needed, have updated to appropriate status: No Care Teams Animal Treatment Investigator Relationship Specialty Start Date End Date Casa Phillips MD [address] [place] [address] [place] [address] PCP - General 02/22/25 Forrest Nickerson APRN [address] [place] [address] [place] [address] 03/06/23
[2025-06-10 13:02] LABS: Immature Granulocytes % 0 %; Mean Corpuscular HGB Conc 31.5 g/dL (31.8-35.4); Mean Corpuscular Hemoglobin 28.3 pg (27.0-31.2); Mean Corpuscular Volume 89.7 fl (80-94); Nucleated Red Blood Cells % 0 %; Red Blood Count 2.23 M/mm3 (4.60-6.20); Red Cell Distribution Width-SD 41.7 fL
[2025-06-10 13:06] LABS: Albumin Level 4.0 g/dl (3.5-5.0); Chloride 105 mmol/L (98-107); Potassium 4.3 mmoL/L (3.5-5.1); Sodium 137 mmol/L (136-145)
[2025-06-10 13:09] LABS: Alanine Aminotransferase 14 U/L (12-78); Albumin/Globulin Ratio 1.1 (1.1-1.8); Alkaline Phosphatase 72 U/L (38-126); Anion Gap 14.3 mEq/L (5-15); Aspartate Amino Transferase 25 U/L (17-59); Bilirubin,Total 0.6 mg/dl (0.2-1.3); Blood Urea Nitrogen 22 mg/dl (9-20); Calcium 8.9 mg/dl (8.4-10.2); Carbon Dioxide 22 mmol/L (22.0-30.0); Creatinine,Serum 1.30 mg/dl (0.66-1.25); Estimated Glomerular Filt Rate 53 ml/min (>60); GFR (African American) 65 ML/MIN (>60); Globulin 3.7 g/dL (1.3-3.2); Glucose 112 mg/dl (74-100); Total Protein,Serum 7.7 g/dl (6.3-8.2)
[2025-06-10 13:13] LABS: Hemoglobin 6.3 g/dL (14.1-18.0); White Blood Count 0.4 K/mm3 (4.8-10.8)
[2025-06-10 13:14] LABS: Hematocrit 20.0 % (42.0-52.0); Platelet Count 9 K/mm3 (142-424)
[2025-06-10 13:59] LABS: Immature Granulocytes % 0 %; Mean Corpuscular HGB Conc 31.4 g/dL (31.8-35.4); Mean Corpuscular Hemoglobin 28.4 pg (27.0-31.2); Mean Corpuscular Volume 90.4 fl (80-94); Nucleated Red Blood Cells % 0 %; Red Blood Count 2.29 M/mm3 (4.60-6.20); Red Cell Distribution Width-SD 41.1 fL
--- NOTE | 2025-06-10 13:59 | PC.NURSE ---
06/10/25 1345 Pt returned from [facility]-md requests lab redraw on cbc to confirm results (results low on current specimen and pt not having any symptoms). Ebonie from lab here to obtain blood for labs.
[2025-06-10 14:01] LABS: Hematocrit 20.7 % (42.0-52.0); Hemoglobin 6.5 g/dL (14.1-18.0); Platelet Count 10 K/mm3 (142-424); White Blood Count 0.5 K/mm3 (4.8-10.8)
[2025-06-10 14:10] LABS: Total Cells Counted 25
--- NOTE | 2025-06-10 14:59 | PC.NURSE ---
1459-called and notified pt's daughter about admission to the hospital.
--- NOTE | 2025-06-10 14:59 | PC.NURSE ---
1450-michael., clerical dentist assistant here to collect type and screen
--- NOTE | 2025-06-10 16:00 | PC.NURSE ---
1600-pt taken to room 210; gave report to daniel pennington
--- NOTE | 2025-06-10 16:12 | P.HP_ITS ---
<Statement entered by Karri Cantu MD - 06/12/25 15:09> Personally evaluated patient and agree with plan of care as outlined by the CURING ROOM WORKER. History of Present Illness *Admission Date: 06/10/25 *Reason for visit:: Pancytopenia *History of present illness: Mr. Feliz is a 79-year-old male who was seen in the oncology office today, Dr. Rosales, and lab work showed pancytopenia. 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 Recommendations were made for chemotherapy along with immunotherapy x 4 treatments. Patient has received 2 infusions and lab work today showed platelets of 10,000, WBC 0.5, hemoglobin 6.5, hematocrit 20.7. Patient denies fever, chills, abdominal pain, nausea, vomiting, diarrhea, cough, congestion, shortness of breath, chest pain. Discussion with patient was had for admission to infuse PRBCs and platelets and further monitoring. [facility] Disclaimer: The information contained in this section may have been updated after the patient was seen, as this information can be updated by other users. 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 Obstructive uropathy Hematuria COPD (chronic obstructive pulmonary disease) Smoking greater than 30 pack years Renal failure, chronic BPH loc w urin obs/LUTS Elevated PSA HLD (hyperlipidemia) Carotid artery stenosis CAD (coronary artery disease) stented Abnormal EKG Hypertension Diabetes Surgical History History of hand surgery History of coronary artery stent placement Family History Other Lung cancer Social History Smoking Status: Current every day smoker tobacco type: cigarettes packs per day: 1 alcohol intake: current alcohol intake frequency: a few times a week substance use type: denies use current occupational status: retired Travel in the last 8 weeks?: None household members: none housing: house caffeine: Yes Have you lived/traveled outside [place] in past 30 days?: No Contact w/someone who lives/traveled outside US past 30 days?: No Exposure to someone with infectious disease in past 14 days?: No Do you have a fever (greater than 100.4 F or 38 C)?: No Have you tested positive for COVID-19?: No Exposed to someone with COVID-19 in past 14 days?: No Do you have a sore throat?: No Do you have a cough?: No Do you have any weakness?: No Do you have any diarrhea?: No Are you experiencing any unusual bleeding?: No Do you have any muscle aches/pain?: No Do you have any abdominal pain?: No Are you experiencing loss of taste or smell?: No Other Medical History Have you received the Flu Vaccine for this season: No Have you received the Pneumonia Vaccine: No Review of Systems Constitutional Constitutional: Denies body ache(s), Denies chills, Denies fatigue, Denies fever(s), Denies headache(s) and Denies weakness ENT Ears, Nose, Mouth, and Throat: Denies dizziness and Denies headache(s) *Cardiovascular Cardiovascular: Denies chest pain and Denies dyspnea *Respiratory Respiratory: Denies chest congestion, Denies cough and Denies dyspnea *Gastrointestinal Gastrointestinal: Denies dyspepsia, Denies loose stools, Denies nausea and Denies vomiting *Musculoskeletal Musculoskeletal: Denies myalgias Integumentary/Breasts Skin/Breast: Denies new lesions, Denies rash, Denies unusual bruising and Denies wounds *Neurologic Neurologic: Denies confusion, Denies dizziness, Denies headache(s) and Denies weakness Psychiatric Psychiatric: Denies confusion and Denies depression Endocrine Endocrine: Denies fatigue Hematologic/Lymphatic Hematologic/Lymphatic: Denies easy bleeding and Denies easy bruising Meds Home Medications and Allergies Home Medications ?Medication ?Instructions ?Recorded ?Confirmed ?Type lancets 30 gauge (Easy Comfort #100 ea 09/18/23 Rx Lancets) folic acid 1 mg tablet 1 mg PO DAILY prior to 04/1506/10/25 Rx chemotherapy #30 tabs prochlorperazine maleate 10 mg 10 mg PO Q6H PRN nausea and 04/15/25 06/10/25 Rx tablet (Compazine) vomiting #30 tabs meloxicam 7.5 mg tablet 7.5 mg PO DAILY #30 tabs 06/10/25 Rx aspirin 81 mg tablet,delayed 81 mg PO DAILY Blood thin ner 05/20/25 06/10/25 History release clopidogrel 75 mg tablet 75 mg PO DAILY 05/20/2505/15 History rosuvastatin 20 mg tablet 20 mg PO DAILY 05/20/2505/15 History chlorpromazine 10 mg tablet 10 mg PO Q4-6H PRN hiccups #60 tabs 05/22/25 06/10/25 Rx metoclopramide HCl 10 mg tablet 10 mg PO Q8H PRN hiccu ps #30 tabs 05/22/25 06/10/25 Rx (Reglan) metformin 1,000 mg tablet See Rx Instructions .Route 0 06/10/25 06/10/25 Rx .COMPLEX #180 tabs New Prescriptions to Start Prescriptions: Allergies Allergy/AdvReac Type Severity Reaction Status Date / Time lisinopril Allergy Severe Swelling Verified 06/10/25 13:21 of Lip/Tongue/Throat cetirizine Allergy Unknown Unknown Verified 06/10/25 13:21 allergy reaction cyclobenzaprine (From AdvReac Confusion Verified 06/10/25 13:21 Flexeril) Exam Data for Last 24 hours Vital signs and Labs for Last 24 Hours: Laboratory Results - last 24 hr 06/10/25 12:50: WBC 0.4 L*, RBC 2.23 L, Hgb 6.3 L*, Hct 20.0 L*, MCV 89.7, MCH 28.3, MCHC 31.5 L, RDW 12.7, Plt Count 9 L*, MPV 10.2, Neut % (Auto) 10.0 L, Lymph % (Auto) 77.5 H, [place] % (Auto) 7.5, Eos % (Auto) 5.0, Baso % (Auto) 0.0 L, Neut # (Auto) 0.0 L*, Lymph # (Auto) 0.3 L, [place] # (Auto) 0.0 L, Eos # (Auto) 0.0, Baso # (Auto) 0.0, Total Counted 25, Neutrophils % (Manual) 12 L, Lymphocy [place] % (Manual) 80 H, Monocytes % (Manual) 8, Platelet Estimate Marked decrease, Sodium 137, Potassium 4.3, Chloride 105, Carbon Dioxide 22, Anion Gap 14.3, BUN 22 H, Creatinine 1.30 H, Estimated GFR 53 L, Est GFR ( Amer) 65, Glucose 112 H, Calcium 8.9, Total Bilirubin 0.6, AST 25, ALT 14, Alkaline Phosphatase 72, Total Protein 7.7, Albumin 4.0, Globulin 3.7 H, Albumin/Globulin Ratio 1.1 06/10/25 13:51: WBC 0.5 L*, RBC 2.29 L, Hgb 6.5 L*, Hct 20.7 L*, MCV 90.4, MCH 28.4, MCHC 31.4 L, RDW 12.7, Plt Count 10 L*, MPV 9.4, Neut % (Auto) 11.1 L, Lymph % (Auto) 75.6 H, [place] % (Auto) 8.9, Eos % (Auto) 4.4, Baso % (Auto) 0.0 L, Neut # (Auto) 0.1 L*, Lymph # (Auto) 0.3 L, [place] # (Auto) 0.0 L, Eos # (Auto) 0.0, Baso # (Auto) 0.0 06/10/25 14:50: Blood Type A Positive, Antibody Screen Negative, Crossmatch (AHG) See Detail Constitutional Constitutional: no acute distress, thin, chronically ill appearing and cooperative *Routine HEENT Exam Head: Present normocephalic Eye: Present EOMI ENT: Present mucous membranes moist *Routine Neck Exam Neck: Present supple and full ROM *Routine Respiratory Exam Respiratory: Present CTA bilaterally, diminished air movement (Left upper lobe), normal respiratory effort, able to speak in complete sentences and symmetric chest movement; Absent wheezes or crackles *Routine Cardiovascular Exam Cardiovascular: Present RRR and tachycardia; Absent murmur *Routine Abdominal Exam Abdominal: Present soft and normoactive bowel sounds; Absent tenderness or distended *Routine Rectal Exam Rectal:: deferred *Routine Genitalia Exam Genitalia:: deferred *Routine Extremities Exam Extremities: Present full ROM, pulses intact and normal capillary refill; Absent edema *Routine Skin Exam Skin: Present intact and dry; Absent erythema or rash *Routine Neurological Exam Neurological: Present alert, oriented X3, vision grossly intact, hearing grossly intact and normal speech Routine Psychiatric Exam Psychiatric: Present normal affect and cooperative Assessment and Plan *Assessment and plan (1) Pancytopenia: Status: Acute Category: Medical Code(s): D61.818 - Other pancytopenia (2) Thrombocytopenia: Status: Acute Category: Medical Code(s): D69.6 - Thrombocytopenia, unspecified (3) Anemia: Status: Acute Category: Medical Code(s): D64.9 - Anemia, unspecified (4) Adenocarcinoma of left lung: Status: Acute Category: Medical Code(s): C34.92 - Malignant neoplasm of unspecified part of left bronchus or lung Plan Mr. Feliz is a 79-year-old male who was seen in the oncology office today, Dr. Rosales, and lab work showed pancytopenia. 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 Recommendations were made for chemotherapy along with immunotherapy x 4 treatments. Patient has received 2 infusions and lab work today showed platelets of 10,000, WBC 0.5, hemoglobin 6.5, hematocrit 20.7. Patient denies fever, chills, abdominal pain, nausea, vomiting, diarrhea, cough, congestion, shortness of breath, chest pain. Discussion with patient was had for admission to infuse PRBCs and platelets and further monitoring. Hospital medicine was consulted by Dr. Rosales for admission, I agreed to admit the patient. Plan of care as follows: #Pancytopenia #Anemia #Thrombocytopenia #Adenocarcinoma of left lung ? Lab work significant for platelets of 10,000, WBC 0.5, hemoglobin 6.5, hematocrit 20.7. 2 units PRBCs and 1 unit platelets ordered for transfusion. ? Patient vital signs within normal limits, no complaints of shortness of air. O2 ordered as needed for O2 saturation less than 90%. ? Holding DAPT at this time, Plavix and aspirin. ? Zofran and Phenergan IV ordered as needed for nausea. ? Repeat CBC, CMP, magnesium, TSH, A1c ordered for the a.m. Full code Ambulate as tolerated VTE?SCDs Regular diet
--- NOTE | 2025-06-10 17:12 | PC.NURSE ---
unable to complete med rec, pt is unsure of what meds he takes; he said he would have daughter bring in a list but it likely wouldn't be until tomorrow
--- NOTE | 2025-06-10 18:02 | PC.NURSE ---
Lab called about blood being ready and patient stated he wanted to eat before starting, H/H from 6.3 to 6.5 and stable. Charge aware.
[2025-06-10] MEDS: PANTOPRAZOLE 40MG TABLET 40 MG PO (20:00)
[2025-06-11] VITALS (11 sets, daily range): BP systolic 120–153; BP diastolic 55–77; PULSE 94–102; RESP 16; TEMP 36.7–38.2; O2SAT 95–99
[2025-06-11] MEDS: ACETAMINOPHEN 325MG TAB 650 MG PO (04:46)
[2025-06-11 06:50] LABS: Hematocrit 25.4 % (42.0-52.0); Immature Granulocytes % 0 %; Mean Corpuscular HGB Conc 33.5 g/dL (31.8-35.4); Mean Corpuscular Hemoglobin 29.1 pg (27.0-31.2); Mean Corpuscular Volume 87.0 fl (80-94); Nucleated Red Blood Cells % 0 %; Red Blood Count 2.92 M/mm3 (4.60-6.20); Red Cell Distribution Width-SD 40.8 fL
[2025-06-11 06:58] LABS: Albumin Level 3.4 g/dl (3.5-5.0); Chloride 106 mmol/L (98-107); Sodium 135 mmol/L (136-145)
[2025-06-11 06:59] LABS: Potassium 4.0 mmoL/L (3.5-5.1)
[2025-06-11 07:01] LABS: Alanine Aminotransferase 8 U/L (12-78); Albumin/Globulin Ratio 1.0 (1.1-1.8); Alkaline Phosphatase 64 U/L (38-126); Anion Gap 9.0 mEq/L (5-15); Aspartate Amino Transferase 20 U/L (17-59); Bilirubin,Total 0.8 mg/dl (0.2-1.3); Blood Urea Nitrogen 24 mg/dl (9-20); Carbon Dioxide 24 mmol/L (22.0-30.0); Creatinine Clearance Estimated 39 mL/min (50-200); Creatinine,Serum 1.40 mg/dl (0.66-1.25); Estimated Glomerular Filt Rate 49 ml/min (>60); GFR (African American) 59 ML/MIN (>60); Globulin 3.4 g/dL (1.3-3.2); Total Protein,Serum 6.8 g/dl (6.3-8.2)
[2025-06-11 07:02] LABS: Calcium 8.4 mg/dl (8.4-10.2); Glucose 112 mg/dl (74-100)
[2025-06-11 07:26] LABS: Platelet Count 41 K/mm3 (142-424); White Blood Count 0.4 K/mm3 (4.8-10.8)
[2025-06-11 07:29] LABS: Thyroid Stimulating Hormone 2.84 uIU/mL (0.465-4.68)
[2025-06-11 07:54] LABS: Hemoglobin A1C 6.2 % (4.0-6.0)
[2025-06-11 08:07] LABS: Total Cells Counted 25
[2025-06-11 08:08] LABS: RBC Morphology Normal
--- NOTE | 2025-06-11 08:15 | HMH.PHAINT1 ---
Pharmacy Intervention Comments: MEDICATION RECONCILIATION COMPLETED ON PATIENT USING EXTERNAL FILL HISTORY FROM PHARMACY AND LIST FROM PCP OFFICE. -JOS PULLIAM, SABINED
[2025-06-11 08:18] LABS: Hemoglobin 8.6 g/dL (14.1-18.0)
--- NOTE | 2025-06-11 08:18 | P.DS_ITS ---
<Statement entered by Karri Cantu MD - 06/11/25 12:06> Personally evaluated patient and agree with plan of care as outlined by the FUR COMBER. #Severe protein calorie malnutrition ? Nutrition consulted, provided counseling and nutritional recommendations. General Admission date:: 06/10/25 Discharge date: 06/11/25 HPI HPI HPI: Mr. Feliz is a 79-year-old male who was seen in the oncology office today, Dr. Rosales, and lab work showed pancytopenia. 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 Recommendations were made for chemotherapy along with immunotherapy x 4 treatments. Patient has received 2 infusions and lab work today showed platelets of 10,000, WBC 0.5, hemoglobin 6.5, hematocrit 20.7. Patient denies fever, chills, abdominal pain, nausea, vomiting, diarrhea, cough, congestion, shortness of breath, chest pain. Discussion with patient was had for admission to infuse PRBCs and platelets and further monitoring. Hospital Course Hospital Course Hospital Course: Mr. Feliz is a 79-year-old male who was seen in the oncology office yesterday, Dr. Rosales, and lab work showed pancytopenia. 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 Recommendations were made for chemotherapy along with immunotherapy x 4 treatments. Patient has received 2 infusions and lab work yesterday showed platelets of 10,000, WBC 0.5, hemoglobin 6.5, hematocrit 20.7. Patient denies fever, chills, abdominal pain, nausea, vomiting, diarrhea, cough, congestion, shortness of breath, chest pain. Discussion with patient was had for admission to infuse PRBCs and platelets and further monitoring. Hospital medicine was consulted by Dr. Rosales for admission, I agreed to admit the patient. Plan of care as follows: #Pancytopenia #Anemia #Thrombocytopenia #Adenocarcinoma of left lung ? Patient received 2 units PRBCs and 1 unit platelets overnight. Patient's lab work improved; hemoglobin 8.6, hematocrit 25.4. Platelets 41. WBC 0.4. ? Patient denies pain, cough, congestion, nausea, vomiting, fever. Patient did have low-grade fever overnight, 100.7. Likely reactive. No fever this a.m. Discussed with patient in length neutropenic precautions, and the need to call PCP/come to the emergency department if he begins to run fevers, body aches, chills, signs of infection. Patient will be sent home empirically on Levaquin 500 mg x [address] Rosales's recommendation. Patient will follow-up on 06/15/2025 with his oncology team. ? Due to slight low-grade fever overnight, empiric infection workup obtained. Chest x-ray shows no signs of infection, UA slightly abnormal, blood cultures pending. ? Will continue holding DAPT, Plavix and aspirin at discharge. ? Recommendation was made for patient to have Neulasta injection prior to discharge if available. Spoke with pharmacy, medication unavailable and has to be ordered. Exam Data for Last 24 hours Vital signs and Labs for Last 24 Hours: Temp Pulse Resp BP Pulse Ox O2 Del Method 100.7 F H 99 H 16 153/73 H 97 Room Air 06/11/25 04:00 06/11/25 04:00 06/11/25 04:00 06/11/25 04:00 06/11/25 04:00 06/11/25 06:29 Laboratory Results - last 24 hr 06/10/25 12:50: WBC 0.4 L*, RBC 2.23 L, Hgb 6.3 L*, Hct 20.0 L*, MCV 89.7, MCH 28.3, MCHC 31.5 L, RDW 12.7, Plt Count 9 L*, MPV 10.2, Neut % (Auto) 10.0 L, Lymph % (Auto) 77.5 H, [place] % (Auto) 7.5, Eos % (Auto) 5.0, Baso % (Auto) 0.0 L, Neut # (Auto) 0.0 L*, Lymph # (Auto) 0.3 L, [place] # (Auto) 0.0 L, Eos # (Auto) 0.0, Baso # (Auto) 0.0, Total Counted 25, Neutrophils % (Manual) 12 L, Lymphocytes % (Manual) 80 H, Monocytes % (Manual) 8, Platelet Estimate Marked d ecrease, Sodium 137, Potassium 4.3, Chloride 105, Carbon Dioxide 22, Anion Gap 14.3, BUN 22 H, Creatinine 1.30 H, Estimated GFR 53 L, Est GFR ( Amer) 65, Glucose 112 H, Calcium 8.9, Total Bilirubin 0.6, AST 25, ALT 14, Alkaline Phosphatase 72, Total Protein 7.7, Albumin 4.0, Globulin 3.7 H, Albumin/Globulin Ratio 1.1 06/10/25 13:51: WBC 0.5 L*, RBC 2.29 L, Hgb 6.5 L*, Hct 20.7 L*, MCV 90.4, MCH 28.4, MCHC 31.4 L, RDW 12.7, Plt Count 10 L*, MPV 9.4, Neut % (Auto) 11.1 L, Lymph % (Auto) 75.6 H, [place] % (Auto) 8.9, Eos % (Auto) 4.4, Baso % (Auto) 0.0 L, Neut # (Auto) 0.1 L*, Lymph # (Auto) 0.3 L, [place] # (Auto) 0.0 L, Eos # (Auto) 0.0, Baso # (Auto) 0.0, Blood Type Confirm A Positive 06/10/25 14:50: Blood Type A Positive, Antibody Screen Negative, Crossmatch ([facility]) See Detail 06/11/25 05:37: WBC 0.4 L*, RBC 2.92 L D, Hgb 8.6 L D, Hct 25.4 L, MCV 87.0, MCH 29.1, MCHC 33.5, RDW 13.0, Plt Count 41 L* D, MPV 9.5, Neut % (Auto) 11.4 L, Lymph % (Auto) 74.3 H, [place] % (Auto) 11.4 H, Eos % (Auto) 2.9, Baso % (Auto) 0.0 L, Neut # (Auto) 0.0 L*, Lymph # (Auto) 0.3 L, [place] # (Auto) 0.0 L, Eos # (Auto) 0.0, Baso # (Auto) 0.0, Total Counted 25, Neutrophils % (Manual) 8 L, Lymphocytes % (Manual) 88 H, Eosinophils % (Manual) 4 H, Platelet Estimate Marked decrease, RBC Morphology Normal, Sodium 135 L, Potassium 4.0, Chloride 106, Carbon Dioxide 24, Anion Gap 9.0, BUN 24 H, Creatinine 1.40 H, Estimated Creat Clear 39, Estimated GFR 49 L, Est GFR ( Amer) 59, Glucose 112 H, Hemoglobin A1c 6.2 H, Calcium 8.4, Total Bilirubin 0.8, AST 20, ALT 8 L D, Alkaline Phosphatase 64, Total Protein 6.8, Albumin 3.4 L D, Globulin 3.4 H, Albumin/Globulin Ratio 1.0 L, TSH 2.84 I & O for Last 24 hours: Intake & Output 06/08/25 06/09/25 06/10/25 06/11/25 23:59 23:59 23:59 23:59 Intake Total 520 / 550 486.43 / 486.43 Output Total 150 / 450 1150 / 1150 Balance 370 / 100 -663.57 / -663.57 Weight 60.073 kg 63.56 kg Constitutional Constitutional: no acute distress, chronically ill appearing and cooperative *Routine HEENT Exam Head: Present normocephalic Eye: Present EOMI ENT: Present mucous membranes moist *Routine Neck Exam Neck: Present supple and full ROM *Routine Respiratory Exam Respiratory: Present decreased breath sounds (Left upper lobe), normal respiratory effort, able to speak in complete sentences and symmetric chest movement; Absent wheezes or crackles *Routine Cardiovascular Exam Cardiovascular: Present RRR, Normal S1 and Normal S2; Absent murmur *Routine Abdominal Exam Abdominal: Present soft and normoactive bowel sounds; Absent tenderness or distended *Routine Extremities Exam Extremities: Present full ROM and pulses intact; Absent clubbing or edema *Routine Skin Exam Skin: Present intact and dry; Absent rash *Routine Neurological Exam Neurological: Present alert, oriented X3, vision grossly intact, hearing grossly intact and normal speech; Absent tremors Routine Psychiatric Exam Psychiatric: Present normal affect and normal thought process Results Data Completed and Pending Labs on day of discharge: Labs from last 24 hours 06/11/25 06/10/25 06/10/25 05:37 14:50 13:51 WBC 0.4 L* 0.5 L* RBC 2.92 L D 2.29 L Hgb 8.6 L D 6.5 L* Hct 25.4 L 20.7 L* MCV 87.0 90.4 MCH 29.1 28.4 MCHC 33.5 31.4 L RDW 13.0 12.7 Plt Count 41 L* D 10 L* MPV 9.5 9.4 Neut % (Auto) 11.4 L 11.1 L Lymph % (Auto) 74.3 H 75.6 H [place] % (Auto) 11.4 H 8.9 Eos % (Auto) 2.9 4.4 Baso % (Auto) 0.0 L 0.0 L Neut # (Auto) 0.0 L* 0.1 L* Lymph # (Auto) 0.3 L 0.3 L [place] # (Auto) 0.0 L 0.0 L Eos # (Auto) 0.0 0.0 Baso # (Auto) 0.0 0.0 Total Counted 25 Neutrophils % (Manual) 8 L Lymphocytes % (Manual) 88 H Monocytes % (Manual) Eosinophils % (Manual) 4 H Platelet Estimate Marked decrease RBC Morphology Normal Sodium 135 L Potassium 4.0 Chloride 106 Carbon Dioxide 24 Anion Gap 9.0 BUN 24 H Creatinine 1.40 H Estimated Creat Clear 39 Estimated GFR 49 L Est GFR ( Amer) 59 Glucose 112 H Hemoglobin A1c 6.2 H Calcium 8.4 Total Bilirubin 0.8 AST 20 ALT 8 L D Alkaline Phosphatase 64 Total Protein 6.8 Albumin 3.4 L D Globulin 3.4 H Albumin/Globulin Ratio 1.0 L TSH 2.84 Blood Type A Positive Blood Type Confirm A Positive Antibody Screen Negative Crossmatch ([facility]) See Detail 06/10/25 12:50 WBC 0.4 L* RBC 2.23 L Hgb 6.3 L* Hct 20.0 L* MCV 89.7 MCH 28.3 MCHC 31.5 L RDW 12.7 Plt Count 9 L* MPV 10.2 Neut % (Auto) 10.0 L Lymph % (Auto) 77.5 H [place] % (Auto) 7.5 Eos % (Auto) 5.0 Baso % (Auto) 0.0 L Neut # (Auto) 0.0 L* Lymph # (Auto) 0.3 L [place] # (Auto) 0.0 L Eos # (Auto) 0.0 Baso # (Auto) 0.0 Total Counted 25 Neutrophils % (Manual) 12 L Lymphocytes % (Manual) 80 H Monocytes % (Manual) 8 Eosinophils % (Manual) Platelet Estimate Marked decrease RBC Morphology Sodium 137 Potassium 4.3 Chloride 105 Carbon Dioxide 22 Anion Gap 14.3 BUN 22 H Creatinine 1.30 H Estimated Creat Clear Estimated GFR 53 L Est GFR ( Amer) 65 Glucose 112 H Hemoglobin A1c Calcium 8.9 Total Bilirubin 0.6 AST 25 ALT 14 Alkaline Phosphatase 72 Total Protein 7.7 Albumin 4.0 Globulin 3.7 H Albumin/Globulin Ratio 1.1 TSH Blood Type Blood Type Confirm Antibody Screen Crossmatch (AHG) DS: Diagnosis Discharge Diagnosis (1) Pancytopenia: Status: Acute Code(s): D61.818 - Other pancytopenia (2) Thrombocytopenia: Status: Acute Code(s): D69.6 - Thrombocytopenia, unspecified (3) Anemia: Status: Acute Code(s): D64.9 - Anemia, unspecified (4) Adenocarcinoma of left lung: Status: Acute Code(s): C34.92 - Malignant neoplasm of unspecified part of left bronchus or lung Meds Home Medications and Allergies Home Medications ?Medication ?Instructions ?Recorded ?Confirmed ?Type lancets 30 gauge (Easy Comfort #100 ea 09/18/23 Rx Lancets) rosuvastatin 20 mg tablet 20 mg PO DAILY 05/20/2505/15 History melatonin 10 mg chewable tablet 10 mg PO HS 06/10/25 0 06/10/25 History metformin 1,000 mg tablet 1,000 mg PO BID 06/10/25 History chlorpromazine 10 mg tablet 10 mg PO Q4HP PRN hiccups 06/11/25 06/11/25 History levofloxacin 500 mg tablet 500 mg PO DAILY #7 tabs Rx meloxicam 7.5 mg tablet 7.5 mg PO QPMWITHMEAL 06/11/25 History metoclopramide HCl 10 mg tablet 10 mg PO Q8HP PRN hicc ups 06/11/25 06/11/25 History (Reglan) New Prescriptions to Start Prescriptions: levofloxacin Amira Diez Allergies Allergy/AdvReac Type Severity Reaction Status Date / Time lisinopril Allergy Severe Swelling Verified 06/10/25 13:21 of Lip/Tongue/Throat cetirizine Allergy Unknown Unknown Verified 06/10/25 13:21 allergy reaction cyclobenzaprine (From AdvReac Confusion Verified 06/10/25 13:21 Flexeril) Discharge Plan Disposition Patient Disposition: Home, Self-Care Condition: Fair Discharge Order Discharge Orders: Discharge Order (Routine); Ordered 06/11/25 Ordered By: Amira Diez Follow up Plan Follow up with: Dagoberto Rosales MD [Staff Physician, Oncology] - 06/16/25 1:30 pm Casa Phillips MD [Primary Care Provider, Family Practice] - 06/21/25 10:00 am Prescriptions/Medication Reconciliation: New levofloxacin 500 mg tablet 500 mg PO DAILY Qty: 7 0RF Continued (DME) lancets [Easy Comfort Lancets] 30 gauge misc See Rx Instructions .Route Qty: 100 1RF Rx Instructions: As directed rosuvastatin 20 mg tablet 20 mg PO DAILY metformin 1,000 mg tablet 1,000 mg PO BID melatonin 10 mg Tablet,Chewable 10 mg PO HS chlorpromazine 10 mg tablet 10 mg PO Q4HP PRN (Reason: hiccups) meloxicam 7.5 mg tablet 7.5 mg PO QPMWITHMEAL metoclopramide HCl [Reglan] 10 mg tablet 10 mg PO Q8HP PRN (Reason: hiccups) Discontinued clopidogrel 75 mg tablet 75 mg PO DAILY aspirin 81 mg tablet,delayed release (DR/EC) 81 mg PO DAILY Problem Reconciliation Problems Reviewed?: Yes Patient Discharge Instructions ACTIVITY: Continue current activity DIET: continue same diet Additional Instructions: Please take neutropenic precautions. If you begin to run a fever, chills, body aches, signs of infection please report to your doctor's office or the emergency department. Patient Instructions: High-Calorie, High-Protein Diet, DI for Lung Cancer, DI for Pancytopenia, DI for Neutropenia Print Language: [place] Providers Primary Care Provider: Casa Phillips Admit Provider: Karri Cantu Attending Provider: Karri Cantu
--- NOTE | 2025-06-11 09:32 | HMH.PTEV ---
Physical Therapy Evaluation Rehab PT IP Evaluation Start: 06/10/25 18:10 Freq: ONCE Status: Active Protocol: Document 06/11/25 09:21 [email or web address] (Rec: 06/11/25 09:31 [id number]) Subjective/History History History Per H&P: Mr. Feliz is a 79-year-old male who was seen in the oncology office today, Dr. Rosales, and lab work showed pancytopenia. 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 Recommendations were made for chemotherapy along with immunotherapy x 4 treatments. Patient has received 2 infusions and lab work today showed platelets of 10,000 , WBC 0.5, hemoglobin 6.5, hematocrit 20.7. Patient denies fever, chills, abdominal pain, nausea, vomiting, diarrhea, cough, congestion, shortness of breath, chest pain. Discussion with patient was had for admission to infuse PRBCs and platelets and further monitoring. Subjective Subjective Pt pleasantly agreeable to mobility assessment. I haven't been up because they have my feet tied down . Pt referring to BLE compression pumps. Pt reports he lives in a single-story home with his daughter. Pt's daughter works. Pt reports he is normally IND with all mobility using a rollator. New diagnosis of No cancer in past 12 months? [facility] How much help from another person do you currently need... Turning from your None back to your side while in a flat bed without using bedrails? Moving from lying on None back to sitting on the side of a flat bed without using bedrails? Moving to and from a None bed to a chair ( including a wheelchair)? Standing up from a None chair using your arms? (e.g., wheelchair, bedside chair) Walking in hospital None room? Climbing 3-5 steps A little with a railing? Mobility Score 23 Mobility Level [facility] Mobility Walk 25 feet or more Mobility Calculator Rehab PT IP Eval Objective Appearance Patient Behavior Appropriate,Cooperative Patient Orientation Person,Place,Situation Difficulty following none instructions Speech Pattern Clear Ambulation Patient Able to Yes Ambulate Ambulation Observation IP General Gait No Deviations/Normal Pattern Observation Ambulation Distance 30 (feet) Ambulation Assistive Rolling Walker Device Ambulation Ability Independent Balance Ability to Arise Able, uses arms to help Sitting Balance Steady, safe Standing Balance Steady, wide stance Dynamic Sitting Good Balance Ability Dynamic Standing Good Balance Ability Transfers Bed Transfer Ability Independent Sit to Stand Bed Independent Transfer Ability Rehab PT IP prob,goals,plan Problems Date of Evaluation: 06/11/25 Rehab Potential Rehab Potential Innapropriate for Skilled Therapy Discharge Plan PT Discharge Plan Pt presents at his baseline with mobility. Pt demo'd safe and modified independent household ambulation using a rollator. Pt most appropriate to d/c home when deemed medically necessary. Skilled acute care physical therapy not appropriate at this time d/c IND mobility. Eval Complexity Eval Charge Codes 58404 - Moderate Complexity PHYSICIAN CERTIFICATION: I certify the specified therapy services for Cole Feliz JR are required, authorized, and reviewed every 30 days.
[2025-06-11 09:38] LABS: Microscopic, Urine URINE MICROSCOPIC (MICROSCOPIC)
[2025-06-11 09:39] LABS: Bilirubin,Urine Negative (Negative); Color,Urine YELLOW (Yellow); Glucose,Urine (UA) Negative (Negative); Ketones,Urine Negative (Negative); Leukocyte Esterase,Urine TRACE (Negative); PH,Urine 6.0 (5.0-8.5); Protein,Urine 1+ (Negative); Specific Gravity, Urine 1.015 (1.005-1.030); Urobilinogen,Urine 0.2 EU/dl (0.2)
--- NOTE | 2025-06-11 09:48 | XR_ITS ---
FINAL REPORT CLINICAL HISTORY: Left hydropneumothorax, follow-up, fever COMPARISON: 05/07/2025 FINDINGS: A single PA view of the chest was obtained. The cardiac and mediastinal silhouettes are within normal limits. There is a left basilar opacity which is likely atelectasis or scar. No new infiltrate is seen. The previously seen left hydropneumothorax is no longer visualized. There may be a very small residual left pleural effusion. IMPRESSION: Left basilar opacities likely atelectasis or scar. No acute infiltrate. Very small residual left pleural effusion. Resolution of previously seen left hydropneumothorax. Reviewed, Interpreted and Dictated by Leti Dye MD Transcribed by Myrtle Lopez Authenticated and [facility]
[2025-06-11 10:26] LABS: Bacteria,Urine 4+ /lpf; RBC,Urine Occasional #/hpf (0-3)
--- NOTE | 2025-06-11 10:39 | SW/DCPLANNER ---
Per PT no needs at this time.
--- NOTE | 2025-06-15 10:56 | SW/DCPLANNER ---
Spoke with patient on the phone. Patient stated that he is doing good. Patient stated that he is aware of his upcoming appointments. Patient stated that he was able to get his new medicine [facility] from [facility]. Patient stated that he has no concerns or questions at this time. Cierra Swain
== END 2025-06-11 12:24 | disposition home or self-care (01) ==
LOC: 2ND 16:48
PROVIDERS: Internal Medicine Medical Oncology; Admitting Provider Student in an Organized Health Care Education/Training Program; PCP Family Medicine; Visit Provider Student in an Organized Health Care Education/Training Program
DX: D61.818 Other pancytopenia (principal); C34.92 Malignant neoplasm of unspecified part of left bronchus or lung; E11.22 Type 2 diabetes mellitus with diabetic chronic kidney disease; I12.9 Hypertensive chronic kidney disease with stage 1 through stage 4 chronic kidney disease, or unspecified chronic kidney disease; N18.9 Chronic kidney disease, unspecified; I25.10 Atherosclerotic heart disease of native coronary artery without angina pectoris; E43 Unspecified severe protein-calorie malnutrition; E78.5 Hyperlipidemia, unspecified; F17.210 Nicotine dependence, cigarettes, uncomplicated; Z68.20 Body mass index [BMI] 20.0-20.9, adult; Z90.2 Acquired absence of lung [part of]; Z95.5 Presence of coronary angioplasty implant and graft; Z88.8 Allergy status to other drugs, medicaments and biological substances; Z79.899 Other long term (current) drug therapy; Z79.84 Long term (current) use of oral hypoglycemic drugs
CPT/HCPCS: 36415; 36430; 71045; 80053; 81001; 83036; 84443; 85007; 85025; 86850; 87040; 87086; 87088; 87186; 97162; G0378; P9016; P9034

== ENCOUNTER 2025-06-15 09:44 | Outpatient (CLI) | payer MEDICARE, SELFPAY ==
--- OUTSIDE RECORDS SUMMARY | 2025-04-20 10:00 | XMS_ITS | Encounter Summary ---
Author Organization [facility] Address [address] [place] [address] Care Team Providers Care Spiral Winding Machine Helper Name Role Phone Forrest Nickerson LSW Unavailable [phone] Casa Phillips MD Primary Care Provider [phone] Encounter Details Date Type Department Care Team (Latest Contact Info) Description 04/20/2025 10:00 AM EDT - 04/20/2025 11:59 PM EDT Hospital Encounter PAV H Radiology [address] [place] [address] Non-small cell cancer of left lung (CMS/HCC) [...] any time in the past 12 m [facility], were you homeless or living in a mcc (including now)? No 03/31/2025 Utilities Answer Date Recorded In the past 12 months has th e [employer], gas, oil, or water company threatened to [...] 1 tablet by mouth daily. HYDROcodone-acet aminophen (Hurley) 10-325 MG tablet Take 1 tablet by mouth every 6 hours as needed for severe pain for up to 10 days. 40 tablet 04/20/2025 tamsulosin (Flomax) 0.4 MG 24 hr capsule Take 1 capsule by mouth daily. 30 capsule 04/04/2025 5 documented as of this encounter Plan of Treatment Upcoming Encounters Date Type Department Care Team ([facility] st Contact Info) Description 07/06/2025 10:40 AM EDT Office Visit Pav CC Head, Neck & Respiratory [address] [facility], 2nd [place] [address] Nikolai Naranjo MD [address] [facility] [address] [place] [address] documented as of this encounter Procedures Procedure [...] documented as of this encounter Care Teams Spiral Winding Machine Helper Relationship Specialty Start Date End Date Casa Phillips MD [address] [place] [address] PCP - General 02/22/25 Forrest Nickerson APRN [address] [place] [address] 03/06/23 documented as of this encounter
--- OUTSIDE RECORDS SUMMARY | 2025-04-20 10:30 | XMS_ITS | Encounter Summary ---
Author Organization [facility] Address [address] [place] [address] Care Team Providers Care It Web Development Consultant Name Role Phone Demetrio trevinoann Theresa CLASSIFICATION OFFICER Unavailable [phone] Casa Phillips MD Primary Care Provider [phone] Reason for Visit * Reason Comments Follow-up Encounter Details Date Type Department Care Team (Late st Contact Info) Description 04/20/2025 10:30 AM EDT Office Visit Pav CC Head, Neck & Respiratory [address] [place] [address] Ирина Lopez MD [address] [facility] [address] [place] [address] Malignant neoplasm of upper lobe [...] any time in the past 12 m [facility], were you homeless or living in a [...] from the original note were not included. [facility] Department of Surgery Section of Thoracic Surgery Outpatient Clinic Note Diagnosis: lung cancer Procedure: 03/29/2025 L thoracotomy HIEN Pathology: [id number] (2.6 cm with visceral pleural invasion) Interval [...] cough, fevers. Still having some pain requiring [place]. ROS: General: no fevers or chills, no [...] Additional Testing: none Assessment and Plan: Cole eTd Feliz Jr. is a 79 y.o. male [...] - [facility] Contact Info) Description 07/06/2025 10:40 AM EDT Office Visit Pav CC Head, Neck & Respiratory 800 [facility], 2nd [place] [address] Nikolai Naranjo MD 800 [facility] Lor[address] Avila [facility] [address] [place] [address] documented as of this encounter Visit Diagnoses [...] documented as of this encounter Care Teams It Web Development Consultant Relationship Specialty Start Date End Date Casa Phillips MD [address] [place] [address] PCP - General 02/22/25 Forrest Nickerson APRN [address] [place] [address] 03/06/23 documented as of this encounter
--- NOTE | 2025-06-15 09:53 | PC.NURSE ---
0953-collected labs via venipuncture stick in left ac with butterfly needle; pt to oncology appt
[2025-06-15 10:09] LABS: Hematocrit 30.8 % (42.0-52.0); Hemoglobin 9.8 g/dL (14.1-18.0); Immature Granulocytes % 0.7 %; Mean Corpuscular HGB Conc 31.8 g/dL (31.8-35.4); Mean Corpuscular Hemoglobin 28.8 pg (27.0-31.2); Mean Corpuscular Volume 90.6 fl (80-94); Nucleated Red Blood Cells % 0 %; Platelet Count 110 K/mm3 (142-424); Red Blood Count 3.40 M/mm3 (4.60-6.20); Red Cell Distribution Width-SD 43.6 fL
[2025-06-15 10:12] LABS: White Blood Count 1.5 K/mm3 (4.8-10.8)
--- OUTSIDE RECORDS SUMMARY | 2025-06-15 10:16 | XMS_ITS | Encounter Summary ---
Author Organization [facility] Address [address] [place] [address] Care Team Providers Care Cell Tuber Machine Name Role Phone Demetrio Nickersonann Cardenas BACK WINDER Unavailable [phone] Casa Phillips MD Primary Care Provider [phone] Encounter Details Date Type Department Care Team (Late st Contact Info) Description 05/27/2025 Telephone [facility] [address] [place] [address] Nikolai Naranjo MD [address] [facility] [address] [place] [address] Social History Tobacco Use Types [...] PM EDT Patient's daughter called back. Emailed [facility] paperwork to me and explained that dates [...] Nora back with any questions or concerns [phone] documented in this encounter Plan of Treatment Upcoming Encounters Date Type Department Care Team ([facility] Contact Info) Description 07/06/2025 10:40 AM EDT Office Visit [facility] [address] [place] [address] Nikolai Naranjo MD [address] [facility] [address] [place] [address] documented as of this encounter Visit Diagnoses Not on filedocumented in this encounter Additional Health Concerns Assessment Noted Time A fall risk assessment has been complete d for the patient 04/20/2025 10:24 AM EDT A Body Mass Index follow-up plan has been documented for the patient 04/23/2025 4:10 PM EDT documented as of this encounter Care Teams Cell Tuber Machine Relationship Specialty Start Date End Date Casa Phillips MD [address] [place] [id number] PCP - General 02/22/25 Forrest Nickerson APRN [address] [place] [address] 03/06/23 documented as of this encounter
--- OUTSIDE RECORDS SUMMARY | 2025-06-15 10:16 | XMS_ITS | Referral Summary ---
Author Organization [employer] ([place], [place], [place], [place]) Address [address] [place] [address] Care Team Providers Care Blender Operator Name Role Phone Unavailable Primary Care Provider [...] Advance Directives For more information, please contact: [phone] * Full Code (Latest Code Status on File) Date Activated Date Inactivated Comments 05/31/2023 2:57 AM 06/05/2023 3:16 PM -Attempt Res uscitation if person has no pulse and is not breathing. -If no pulse or not breathing attempt CPR/CODE. -Call Rapid Response if patient is in distress.
--- OUTSIDE RECORDS SUMMARY | 2025-06-15 10:16 | XMS_ITS | Clinical Summary ---
Author Organization [facility] Address [address] [place] [address] Care Team Providers Care Front Desk Agent Name Role Phone Demetrio trevinoann Cardenas SKI LIFT OPERATOR Unavailable [phone] Casa Phillips MD Primary Care Provider [phone] Allergies Active Allergy Reactions Criticality Noted Date [...] [facility] [address] [address] Nikolai Naranjo MD 05/27/2025 Telephone [facility] 800 [facility], [address] [place] [address] Nikolai Naranjo MD 04/20/2025 10:30 AM EDT Office Visit [facility] [address] [address] Ирина Lopez MD 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) (Primary Dx) 04/20/2025 10:00 AM EDT - 04/20/2025 11:59 PM EDT Hospital Encounter [facility] Radiology [address] [place] [address] Non-small cell cancer of left lung (CMS/HCC) Discharge Disposition: Home or Self Care 04/20/2025 Telephone [facility] [address] [address] Ирина Lopez MD 04/20/2025 Travel 04/19/2025 Telephone [facility] [address] [address] Manny Lopez MD 04/07/2025 Telephone [facility] Hematology/BMT and Cellular Therapy Program [address] [address] [facility] 04/07/2025 Telephone [facility] Hematology/BMT and Cellular Therapy Program [address] [address] [facility] 04/07/2025 Telephone [facility] Hematology/BMT and Cellular Therapy Program [address] [place] [address] [facility] 04/07/2025 Telephone [facility] Respiratory [address] [address] Aishwarya Dye RN 04/06/2025 11:30 AM EDT Office Visit [facility] [address] [address] Ирина Lopez MD Non-small cell cancer of left lung (CMS/HCC) (Primary Dx) 04/06/2025 10:40 AM EDT Office Visit [facility] Res[facility] [address] [address] Nikolai Naranjo MD Non-small cell cancer of left lung (CMS/HCC) (Primary Dx); CKD (chronic kidney disease) stage 2, GFR 60-89 ml/min; Tobacco use disorder; Essential hypertension; Type 2 diabetes mellitus with stage 2 chronic kidney disease, without long-term current use of insulin (CMS/HCC) 04/06/2025 Telephone [facility] [address] [address] Nikolai Naranjo MD 04/06/2025 Travel 04/04/2025 Travel 04/03/2025 Travel 04/02/2025 Travel 04/01/2025 Travel 03/31/2025 Travel 03/30/2025 Travel 03/29/2025 1:34 PM EDT Anesthesia Event [facility] OPERATING ROOM [address] [place] [address] Jimmy Kim MD Bliss, Emily G, MD 03/29/2025 12:10 PM EDT - 03/29/2025 4:50 PM EDT Surgery [facility] OPERATING ROOM [address] [place] [address] Ирина Lopez MD LEFT VATS LOBECTOMY coverted to open, Left thoracotomy, with medistinal lymph node disection and lypoma [[id number] (CPT )] 03/29/2025 9:43 AM EDT - 04/04/2025 12:18 PM EDT Hospital Encounter [facility] Inpatient [address] [place] [address] Ирина Lopez MD Non-small cell cancer of left lung (CMS/HCC) Discharge Disposition: Home or Self Care 03/29/2025 Travel 03/18/2025 Travel from Last 3 Months Family History [...] any time in the past 12 m [facility], were you homeless or living in a nursing home (including now)? No 03/31/2025 Utilities Answer Date Recorded In the past 12 months has th e Foodist, gas, oil, or water company threatened to [...] [facility] Res[facility] 800 [facility], [address]nd [place] [address] Nikolai Naranjo MD 800 [facility] [address] [place] [address] Health Maintenance Due Date Last Done Comments [facility]-Depression Screening 1945 [facility]-Diabetes: Hemoglobin A1C 1945 [facility]-Hepatitis C Screening 1945 [facility]-Medicare Annual Wellness (AWV) 1945 [facility]-Infant/Child/Adol SDOH Screenings 1945 [id number] Vaccine (#1) 1951 Diabetes: Dental Exam 1956 [...] 7:58 PM EDT MAGNESIUM, PLASMA Routine 03/29/2025 7: 58 PM EDT FIBRINOGEN,QUANTITATI VE (CLOTTABLE) STAT 03/29/2025 [...] - 99 mg/dL 04/04/2025 8:36 AM EDT [facility] Comment:Accuracy of a glucos e result [...] Comment 04/04/2025 8:36 AM EDT HEALTHCARE LAB Turning Machine Operator ID Sandy Kramer 04/04/2025 8:36 AM EDT HEALTHCARE LAB Device ID [id number] 04/04/2025 8:36 AM EDT HEALTHCARE LAB Specimen Type POC Capillary 04/04/2025 8:36 AM EDT HEALTHCARE LAB Blood Capillary blood specimen / Unknown 04/04/2025 8:34 AM EDT 04/04/2025 8:36 AM EDT us Ирина Lopez MD LAB POINT OF CARE TE ST DOCKED DEVICE UNSOLICITED RESULTS Final Result Performing Organization Address City/State/[facility] Phone Number HEALTHCARE LAB [address] [place] [address] * XR Chest 1 View (04/04/2025 5:20 [...] MD on 04/04/2025 10:20 AM Scarlet Gamboa SKI LIFT OPERATOR IMG XR PROCEDURES Final Resul t * (ABNORMAL) CBC W/O Differential (04/04/2025 2:19 AM EDT) Only the most recent of8 resultswithin the time period is included. WBC Count 5.44 3.70 - 10.30 10*3/uL LAB HEMATOLOGY METHOD 04/04/2025 2:33 AM EDT [facility] RBC Count 3.77(L) 4.60 - 6.10 10*6/uL LAB HEMATOLOGY METHOD 04/04/2025 2:33 AM EDT [facility] HGB 10.7(L) 13.7 - 17.5 g/dL LAB HEMATOLOGY METHOD 04/04/2025 2:33 AM EDT [facility] HCT 32.4(L) 40.0 - 51.0 % LAB HEMATOLOGY METHOD 04/04/2025 2:33 AM EDT [facility] Platelet Count 220 155 - 369 10*3/uL LAB HEMATOLOGY METHOD 04/04/2025 2:33 AM EDT [facility] MCV 86 79 - 98 fL LAB HEMATOLOGY METHOD 04/04/2025 2:33 AM EDT [facility] MCH 28.4 26.0 - 32.0 pg LAB HEMATOLOGY METHOD 04/04/2025 2:33 AM EDT [facility] MCHC 33.0 30.7 - 35.5 g/dL LAB HEMATOLOGY METHOD 04/04/2025 2:33 AM EDT [facility] RDW 14.7(H) 11.5 - 14.5 % LAB HEMATOLOGY METHOD 04/04/2025 2:33 AM EDT [facility] MPV 9.1 8.8 - 12.5 fL LAB HEMATOLOGY METHOD 04/04/2025 2:33 AM EDT [facility] nRBC 0.4(H) <=0.0 per 100 WBCs LAB HEMATOLOGY METHOD 04/04/2025 2:33 AM EDT [facility] Blood Venous blood specimen / Unknown Venipuncture / Unknown 04/04/2025 2:19 AM EDT 04/04/2025 2:24 AM EDT us Ирина Lopez MD LAB BLOOD ORDERABLES Final R esult [facility] [address] [place] [address] * (ABNORMAL) Magnesium, Plasma (04/04/2025 2:19 AM EDT) Only the most recent of8 resultswithin the time period is included. Magnesium, Plasma 1.8(L) 1.9 - 2.4 mg/dL 04/04/2025 2:53 AM EDT [facility] Blood Venous blood specimen / Unknown Venipuncture / Unknown 04/04/2025 2:19 AM EDT 04/04/2025 2:24 AM EDT us Ирина Lopez MD LAB BLOOD ORDERABLES Final R esult Performing Organization Address City/[facility]/ZIP Co de Phone Number [facility] [address] [place] [address] * (ABNORMAL) Renal Function Panel, Plasma (04/04/2025 2:19 AM EDT) Only the most recent of8 resultswithin the time period is included. Glucose, Plasma 166(H) 74 - 99 mg/dL 04/04/2025 2:53 AM EDT [facility] BUN, Plasma 18 8 - 23 mg/dL 04/04/2025 2:53 AM EDT [facility] Creatinine, Plasma 1.31(H) 0.70 - 1.20 mg/dL 04/04/2025 2:53 AM EDT [facility] BUN/Creatinine Ratio 14 04/04/2025 2:53 AM EDT [facility] Sodium, Plasma 136 136 - 145 mmol/L 04/04/2025 2:53 AM EDT [facility] Potassium, Plasma 4.3 3.6 - 4.9 mmol/L 04/04/2025 2:53 AM EDT [facility] Chloride, Plasma 103 97 - 107 mmol/L 04/04/2025 2:53 AM EDT [facility] CO2, Plasma 22 22 - 29 mmol/L 04/04/2025 2:53 AM EDT [facility] Anion Gap 11 6 - 16 mmol/L 04/04/2025 2:53 AM EDT [facility] Total Calcium, Plasma 8.2(L) 8.9 - 10.2 mg/dL 04/04/2025 2:53 AM EDT [facility] Phosphorus, Plasma 3.1 2.5 - 4.5 mg/dL 04/04/2025 2:53 AM EDT [facility] Albumin, Plasma 3.0(L) 3.5 - 5.2 g/dL 04/04/2025 2:53 AM EDT [facility] eGFRcr 55.7 mL/min/1.7 3m*2 04/04/2025 2:53 AM EDT [facility] Comment:Reported eGFRcr in m L/min/1.73m2 is based the CKD-EPI 2020 equation that does not use a race coefficient. Blood Venous blood specimen / Unknown Venipuncture / Unknown 04/04/2025 2:19 AM EDT 04/04/2025 2:24 AM EDT us Ирина Lopez MD LAB BLOOD ORDERABLES Final R esult [facility] [address] [place] [address] * Transfuse RBC (04/02/2025 2:53 PM EDT) Only the most recent of3 resultswithin the time period is included. us Scarlet Gamboa SKI LIFT OPERATOR BLOOD TRANSFUSION ORDERABLES Final Result * PERIPHERAL [...] the time period is included. Product Code N2825E78 BLOO D BANK Dispense Status Transfused BLOOD BANK Blood Expiration Date [id number] BLOOD BANK Unit Number [id number] CH B LOOD BANK Product Blood Type 6200 BLOOD BANK Blood Type A+ BLOOD BANK Crossmatch Compatible BLOOD BANK Product Code [id number] BLOO D BANK Dispense Status Transfused BLOOD BANK Blood Expiration Date [id number] BLOOD BANK Unit Number [id number] CH B LOOD BANK Product Blood Type 6200 BLOOD BANK Blood Type A+ BLOOD BANK Crossmatch Compatible BLOOD BANK Other us Scarlet Gamboa APRN BLOOD BANK PRODUCT ORDERABLES Final Result BLOOD BANK [address] [place] [address], * Type and Screen (04/02/2025 6:36 AM [...] ORDERABL ES Final Result Performing Organization Address [facility] Co de Phone Number BLOOD BANK [address] [place] [address], * ECG Adult (03/30/2025 8:37 AM EDT) EKG DIAGNOSIS CLASS Abnormal MUSE ECG Ventricular Rate 81 BPM MUSE ECG Atrial Rate 81 BPM MUSE ECG GA Interval 170 ms MUSE ECG QRSD Interval 104 ms MUSE ECG QT Interval 416 ms MUSE ECG QTC Interval 483 ms MUSE ECG P Muncy 39 degrees MUSE ECG R Muncy -51 degrees MUSE ECG T Wave Muncy -15 degrees MUSE ECG Diagnosis Poor data quality, interpretation may be adversely affected MUSE ECG Diagnosis Normal sinus rhythm MUSE ECG Diagnosis Left anterior fascicular block MUSE ECG Diagnosis Moderate voltage criteria for LVH, may be normal variant ( R in aVL , Coulter product ) MUSE ECG Diagnosis Possible Anterolateral infarct , age undetermined MUSE ECG Diagnosis QTcB >= 480 msec MUSE ECG Diagnosis Abnormal ECG MUSE ECG Diagnosis MUSE ECG Diagnosis Confirmed by Carey Michel ([id number]) on 03/30/2025 9:40:26 AM MUSE ECG 03/30/2025 8:37 AM EDT 03/30/2025 9:40 AM EDT Ирина Lopez MD ECG ORDERABLES Final Result Performing Organization Address City/[facility] Co de Phone Number MUSE ECG * Creatinine, Plasma (03/29/2025 7:58 PM EDT) Creatinine, Plasma 1.08 0.70 - 1.20 mg/dL 03/29/2025 8:39 PM EDT [facility] eGFRcr 70.2 mL/min/1.7 3m*2 03/29/2025 8:39 PM EDT [facility] Comment:Reported eGFRcr in m L/min/1.73m2 is based the CKD-EPI 2020 equation that does not use a race coefficient. Blood Arterial blood specimen / Unknown Arterial Puncture / Unknown 03/29/2025 7:58 PM EDT 03/29/2025 8:05 PM EDT us Ирина Lopez MD LAB BLOOD ORDERABLES Final R esult Performing Organization Address [facility] Co de Phone Number [facility] [address] [place] [address] * Protime-INR (03/29/2025 7:58 PM EDT) Only the most recent of2 resultswithin the time period is included. Prothrombin Time 13.8 12.0 - 14.3 sec LAB COAGULATION METHOD 03/29/2025 8:38 PM EDT [facility] INR 1.0 0.9 - 1.1 LAB COAGULATION METHOD 03/29/2025 8:38 PM EDT [facility] Blood Arterial blood specimen / Unknown Arterial Puncture / Unknown 03/29/2025 7:58 PM EDT 03/29/2025 8:05 PM EDT Narrative [facility] - 03/29/2025 8:38 PM EDT OPTIMAL INR RANGES FOR PATIENT ON ORAL ANTICOAGULANT THERAPY Prevention of venous thromboembolism INR 2.0 to 3.0 In patients with heart disease: Atrial fibrillation INR 2.0 to 3.0 Valvular heart disease INR 2.0 to 3.0 Tissue heart valves INR 2.0 to 3.0 Mechanical prosthetic valves INR 2.5 to 3.5 Prevention of recurrent HI INR 2.5 to 3.5 us Kiana Gusman CRNA LAB BLOOD ORDERABLES Final R esult Performing Organization Address City/[facility]/ZIP Co de Phone Number [facility] [address] [place] [address] * Fibrinogen (03/29/2025 7:58 PM EDT) Only the most recent of2 resultswithin the time period is included. Fibrinogen, Quantitative (Clottable) 294 208 - 459 mg/dL LAB COAGULATION METHOD 03/29/2025 8:38 PM EDT [facility] Blood Arterial blood specimen / Unknown Arterial Puncture / Unknown 03/29/2025 7:58 PM EDT 03/29/2025 8:05 PM EDT us Kiana Gusman CRNA LAB BLOOD ORDERABLES Final R esult [facility] [address] [place] [address] * (ABNORMAL) CBC and differential (03/29/2025 7:58 PM EDT) WBC Count 8.18 3.70 - 10.30 10*3/uL LAB HEMATOLOGY METHOD 03/29/2025 8:29 PM EDT [facility] RBC Count 3.11(L) 4.60 - 6.10 10*6/uL LAB HEMATOLOGY METHOD 03/29/2025 8:29 PM EDT [facility] HGB 9.2(L) 13.7 - 17.5 g/dL LAB HEMATOLOGY METHOD 03/29/2025 8:29 PM EDT [facility] HCT 27.7(L) 40.0 - 51.0 % LAB HEMATOLOGY METHOD 03/29/2025 8:29 PM EDT [facility] Platelet Count 174 155 - 369 10*3/uL LAB HEMATOLOGY METHOD 03/29/2025 8:29 PM EDT [facility] MCV 89 79 - 98 fL LAB HEMATOLOGY METHOD 03/29/2025 8:29 PM EDT [facility] MCH 29.6 26.0 - 32.0 pg LAB HEMATOLOGY METHOD 03/29/2025 8:29 PM EDT [facility] MCHC 33.2 30.7 - 35.5 g/dL LAB HEMATOLOGY METHOD 03/29/2025 8:29 PM EDT [facility] RDW 12.6 11.5 - 14.5 % LAB HEMATOLOGY METHOD 03/29/2025 8:29 PM EDT [facility] MPV 9.3 8.8 - 12.5 fL LAB HEMATOLOGY METHOD 03/29/2025 8:29 PM EDT [facility] nRBC 0.0 <=0.0 per 100 WBCs LAB HEMATOLOGY METHOD 03/29/2025 8:29 PM EDT [facility] Differential Type Automated LAB HEMATOLOGY METHOD 03/29/2025 8:29 PM EDT [facility] Neutrophils % 86 % LAB HEMATOLOGY METHOD 03/29/2025 8:29 PM EDT [facility] Lymphocytes % 9 % LAB HEMATOLOGY METHOD 03/29/2025 8:29 PM EDT [facility] Monocytes % 5 % LAB HEMATOLOGY METHOD 03/29/2025 8:29 PM EDT [facility] Eosinophils % 0 % LAB HEMATOLOGY METHOD 03/29/2025 8:29 PM EDT [facility] Basophils % 0 % LAB HEMATOLOGY METHOD 03/29/2025 8:29 PM EDT [facility] Immature Granulocytes % 0 % LAB HEMATOLOGY METHOD 03/29/2025 8:29 PM EDT [facility] Neutrophils Absolute 7.00(H) 1.60 - 6.10 10*3/uL LAB HEMATOLOGY METHOD 03/29/2025 8:29 PM EDT [facility] Lymphocytes Absolute 0.71(L) 1.20 - 3.90 10*3/uL LAB HEMATOLOGY METHOD 03/29/2025 8:29 PM EDT [facility] Monocytes Absolute 0.40 0.30 - 0.90 10*3/uL LAB HEMATOLOGY METHOD 03/29/2025 8:29 PM EDT [facility] Eosinophils Absolute 0.02 0.00 - 0.50 10*3/uL LAB HEMATOLOGY METHOD 03/29/2025 8:29 PM EDT [facility] Basophils Absolute 0.02 0.00 - 0.10 10*3/uL LAB HEMATOLOGY METHOD 03/29/2025 8:29 PM EDT [facility] Immature Granulocytes Absolute 0.03 0.00 - 0.06 10*3/uL LAB HEMATOLOGY METHOD 03/29/2025 8:29 PM EDT [facility] Blood Arterial blood specimen / Unknown Arterial Puncture / Unknown 03/29/2025 7:58 PM EDT 03/29/2025 8:04 PM EDT Narrative [facility] - 03/29/2025 8:29 PM EDT Therapeutic decision making should be based on absolute values, rather than percentages. us Kiana Gusman TEMPERATURE LOGGING OPERATOR LAB BLOOD ORDERABLES Final R esult [facility] [address] [place] [address] * Surgical Pathology Exam (03/29/2025 5:10 PM EDT) Case Report Surgical Pathology Case: [id number] Authorizing Provider: Ирина Lopez MD Collected: 03/29/2025 1716 Ordering Location: [facility] A OPERATING ROOM Received: 03/30/2025 0755 [...] Other (specify site), lipoma 2:45 PM EDT [facility] Final Diagnosis A. LUNG, BRONCHIAL MARGIN, EXCISION, [...] TISSUE, EXCISION: - LIPOMA. 2:45 PM EDT [facility] at 1445 EDT Synoptic Checklist LUNG LUNG [...] pN Category: pN0 5 2:45 PM EDT [facility] Clinical Information Non-small cell cancer of left lung 5 2:45 PM EDT [facility] Intraoperative Consultation A. BRONCHIAL MARGIN FSA: No tumor seen. Todd Gibbs MD. 03/29/2025 @ 1745. 2:45 PM EDT [facility] Special and Immunohistochemical Stains Special Stain: [id number] Elastic Trichrome: Demonstrates visceral pleural invasion F8-2 Elastic Trichrome: Demonstrates visceral pleural invasion All controls show appropriate reactivity. All immunohistochemis try, in situ hybridization, and histochemical tests were developed by and are performed at the [facility], [address] [place] [address]. All tests reported here, except those addressing [...] likelihood of false negativity on decalcified specimens. 2:45 PM EDT [facility] Gross Description A. BRONCHIAL MARGIN [...] 0.3-0.6 cm in greatest dimension are identified. Paperhanger Apprentice sections are submitted as follows: F1: Bronchial [...] areas of hemorrhage or necrosis are identified. Paperhanger Apprentice sections are submitted in cassettes G1-G3. Cold Time: 13h 05m SWATI Wong ([facility]) 2:45 PM EDT [facility] Note: A resident was involved in the service. I attest I examined the relevant preparations for the specimens and confirmed the diagnosis or interpretation. 2:45 PM EDT [facility] Tissue Structure of lymph node [...] MD LAB PATHOLOGY ORDERABLES Fin al Result [facility] [address] [place] [address] * (ABNORMAL) Blood gas panel, arterial (03/29/2025 4:05 PM EDT) Only the most recent of2 resultswithin the time period is included. pH, Arterial 7.38 7.31 - 7.42 LAB HEMATOLOGY METHOD 03/29/2025 4:13 PM EDT [facility] pCO2, Arterial 45 32 - 45 mmHg LAB HEMATOLOGY METHOD 03/29/2025 4:13 PM EDT [facility] pO2, Arterial 216 >70 mmHg LAB HEMATOLOGY METHOD 03/29/2025 4:13 PM EDT [facility] SO2, Measured, Arterial 100(H) 94 - 98 % LAB HEMATOLOGY METHOD 03/29/2025 4:13 PM EDT [facility] Base Excess, Arterial 1.2 -2.0 - 3.0 mmol/L LAB HEMATOLOGY METHOD 03/29/2025 4:13 PM EDT [facility] Bicarbonate, Calculated, Arterial 27(H) 22 - 26 mmol/L LAB HEMATOLOGY METHOD 03/29/2025 4:13 PM EDT [facility] Hematocrit, Whole Blood 31.6(L) 40.0 - 51.0 % LAB HEMATOLOGY METHOD 03/29/2025 4:13 PM EDT [facility] Sodium, Whole Blood 138 136 - 145 mmol/L LAB HEMATOLOGY METHOD 03/29/2025 4:13 PM EDT [facility] Potassium, Whole Blood 3.8 3.6 - 4.9 mmol/L LAB HEMATOLOGY METHOD 03/29/2025 4:13 PM EDT [facility] Chloride, Whole Blood 103 97 - 107 mmol/L LAB HEMATOLOGY METHOD 03/29/2025 4:13 PM EDT [facility] Glucose, Whole Blood 123(H) 74 - 99 mg/dL LAB HEMATOLOGY METHOD 03/29/2025 4:13 PM EDT [facility] Ionized Calcium, Whole Blood 4.4(L) 4.6 - 5.1 mg/dL LAB HEMATOLOGY METHOD 03/29/2025 4:13 PM EDT [facility] Lactate, Arterial, Whole Blood 0.8 0.5 - 1.6 mmol/L LAB HEMATOLOGY METHOD 03/29/2025 4:13 PM EDT [facility] Blood Arterial blood specimen / Unknown 03/29/2025 4:05 PM EDT 03/29/2025 4:11 PM EDT Comment:Pre-op diagnosis: Non-small cell cancer of left lung us Ирина Lopez MD LAB BLOOD ORDERABLES Final R esult Performing Organization Address [facility] Co de Phone Number [facility] [address] [place] [address] * APTT (03/29/2025 4:04 PM EDT) aPTT 28 25 - 35 sec LAB COAGULATION METHOD 03/29/2025 4:39 PM EDT [facility] Blood Arterial blood specimen / Unknown 03/29/2025 4:04 PM EDT 03/29/2025 4:18 PM EDT Comment:Pre-op diagnosis: Non-small cell cancer of left lung us Ирина Lopez MD LAB BLOOD ORDERABLES Final R esult Performing Organization Address [facility] [place] [address] * Peripheral IV (03/29/2025 2:00 PM EDT) Narrative Kiana Gusman CRNA - 03/29/2025 2:00 PM EDT Kiana Gusman CRNA 03/29/2025 2:28 PM Peripheral IV Date/Time: 03/29/2025 2:00 PM Placement Needle size: 18 G Location: hand Site prep: alcohol Technique: anatomical landmarks Attempts: 1 us Robert Santos MD ANESTHESIA ORDERABLES Final Res ult * PB ANESTHESIA NON-TIMED PROCEDURE PLACEHOLDER (03/29/2025 1:57 PM EDT) Narrative Robert Santos MD - 03/29/2025 1:57 PM EDT Robert [...] procedure well with no complications. Staffing Performed: TEMPERATURE LOGGING OPERATOR Robert Santos MD ANESTHESIA ORDERABLES Edited Re sult - Final * GA AN ELECTIVE ENDOTRACHEAL AIRWAY, PB ANESTHESIA PLACEHOLDER (03/29/2025 1:48 PM EDT) Narrative Robert Santos MD - 03/29/2025 1:48 PM EDT Robert Santos MD 03/29/2025 3:02 PM Airway Date/Time: 03/29/2025 1:48 PM Reason: elective Airway not difficult General Information and Staff Patient location during procedure: OR TEMPERATURE LOGGING OPERATOR: iKana Gusman TEMPERATURE LOGGING OPERATOR Performed: TEMPERATURE LOGGING OPERATOR Patient Condition Indications for airway management: anesthesia [...] LAB HEMATOLOGY METHOD 03/29/2025 12:51 PM EDT [facility] pCO2, Venous 49 40 - 55 mmHg LAB HEMATOLOGY METHOD 03/29/2025 12:51 PM EDT [facility] pO2, Venous 54(H) 25 - 40 mmHg LAB HEMATOLOGY METHOD 03/29/2025 12:51 PM EDT [facility] SO2, Measured, Venous 87(H) 65 - 80 % LAB HEMATOLOGY METHOD 03/29/2025 12:51 PM EDT [facility] Base Excess, Venous 1.7 -2.0 - 3.0 mmol/L LAB HEMATOLOGY METHOD 03/29/2025 12:51 PM EDT [facility] Bicarbonate, Calculated, Venous 28(H) 22 - 26 mmol/L LAB HEMATOLOGY METHOD 03/29/2025 12:51 PM EDT [facility] Hematocrit, Whole Blood 39.2(L) 40.0 - 51.0 % LAB HEMATOLOGY METHOD 03/29/2025 12:51 PM EDT [facility] Sodium, Whole Blood 140 136 - 145 mmol/L LAB HEMATOLOGY METHOD 03/29/2025 12:51 PM EDT [facility] Potassium, Whole Blood 4.0 3.6 - 4.9 mmol/L LAB HEMATOLOGY METHOD 03/29/2025 12:51 PM EDT [facility] Chloride, Whole Blood 103 97 - 107 mmol/L LAB HEMATOLOGY METHOD 03/29/2025 12:51 PM EDT [facility] Glucose, Whole Blood 97 74 - 99 mg/dL LAB HEMATOLOGY METHOD 03/29/2025 12:51 PM EDT [facility] Lactate, Venous, Whole Blood 1.6 0.5 - 2.2 mmol/L LAB HEMATOLOGY METHOD 03/29/2025 12:51 PM EDT [facility] Ionized Calcium, Whole Blood 4.5(L) 4.6 - 5.1 mg/dL LAB HEMATOLOGY METHOD 03/29/2025 12:51 PM EDT [facility] Blood Venous blood specimen / Unknown Venipuncture / Unknown 03/29/2025 12:27 PM EDT 03/29/2025 12:49 PM EDT us Robert Santos MD LAB BLOOD ORDERABLES Final Resu lt [facility] [address] [place] [address] from Last 3 Months Insurance [facility] MEDICARE [facility] MEDICARE Advance Directives * Full Code (Latest Code Status on File) Date Activated Date Inactivated Comments 03/29/2025 7:30 PM 04/04/2025 2:23 PM Question Answer Comments I have reviewed the capacity from the link above and, if needed, have updated to appropriate status: No Care Teams Front Desk Agent Relationship Specialty Start Date End Date Casa Phillips MD [address] [facility] [place] [id number] PCP - General 02/22/25 Forrest Nickerson APRN [address] [facility] [place] [id number] 03/06/23
--- OUTSIDE RECORDS SUMMARY | 2025-06-15 10:16 | XMS_ITS | Encounter Summary ---
Author [email or web address] Email Address Author [employer] Preferred Language en Marital Status Methodist Affiliation Unknown Race White Ethnic Group Not or Lati no Author Organization [facility] Address [address] [place] [address] Care Team Providers Care Director Of Digital Technology Name Role Phone Forrest Nickerson MULTI SITE LEASING CONSULTANT Unavailable [phone] Casa Phillips MD Primary Care Provider [phone] Encounter Details Date Type Department Care Team (Late st Contact Info) Description 04/07/2025 Telephone PAV CC Hematology/BMT and Cellular Therapy Program [address] [place] [address] [place] [address] Tyler Montero Social History Tobacco Use Types [...] Pav CC Head, Neck & Respiratory [address] [facility], 2nd [place] [address] Nikolai Naranjo MD [address] [facility] [address] [place] [address] documented as of this encounter Visit Diagnoses Not on filedocumented in this encounter Additional Health Concerns Assessment Noted Time A fall risk assessment has been complete d for the patient 04/06/2025 10:27 AM EDT A Body Mass Index follow-up plan has been documented for the patient 04/06/2025 12:11 PM EDT documented as of this encounter Care Teams Director Of Digital Technology Relationship Specialty Start Date End Date Casa Phillips MD [address] [place] [address] PCP - General 02/22/25 Forrest Nickerson APRN [address] [place] [address] 03/06/23 documented as of this encounter
--- OUTSIDE RECORDS SUMMARY | 2025-06-15 10:16 | XMS_ITS | Encounter Summary ---
Author Organization [facility] Address [address] [place] [address] Care Team Providers Care Vehicle Care Specialist Name Role Phone Forrest Nickerson DIRECTOR OF OUTREACH Unavailable [phone] Casa Phillips MD Primary Care Provider [phone] Encounter Details Date Type Department Care Team (Late st Contact Info) Description 04/07/2025 Telephone PAV CC Hematology/BMT and Cellular Therapy Program [address] [place] [address] [place] [address] Tyler Montero Social History Tobacco Use Types [...] any time in the past 12 m [facility], were you homeless or [...] Respiratory [address] [facility], 2nd [place] [address] Nikolai Naranjo MD [address] [facility] [address] [place] [address] documented as of this encounter Visit Diagnoses Not on filedocumented in this encounter Additional Health Concerns Assessment Noted Time A fall risk assessment has been complete d for the patient 04/06/2025 10:27 AM EDT A Body Mass Index follow-up plan has been documented for the patient 04/06/2025 12:11 PM EDT documented as of this encounter Care Teams Vehicle Care Specialist Relationship Specialty Start Date End Date Casa Phillips MD [address] [place] [address] PCP - General 02/22/25 Forrest Nickerson APRN [address] [place] [address] 03/06/23 documented as of this encounter
--- OUTSIDE RECORDS SUMMARY | 2025-06-15 10:16 | XMS_ITS | Encounter Summary ---
Author Organization [facility] Address [address] [place] [address] Care Team Providers Care Transfer Knitter Name Role Phone Demetrio Nickersonann Cardenas CHAIR INSPECTOR AND LEVELER Unavailable [phone] Casa Phillips MD Primary Care Provider [phone] Encounter Details Date Type Department Care Team (Late st Contact Info) Description 03/04/2025 Results Follow-Up Pav CC Head, Neck & Respiratory 800 [facility], 2nd [place] [address] Nikolai Naranjo MD 800 [facility] [address] [place] [address] Social History Tobacco Use Types [...] & Respiratory [address] [place] [address] Nikolai Naranjo MD [address] [place] [address] documented as of this encounter Visit Diagnoses Not on filedocumented in this encounter Additional Health Concerns Assessment Noted Time A fall risk assessment has been complete d for the patient 02/23/2025 8:48 AM EDT A Body Mass Index follow-up plan has been documented for the patient 02/25/2025 5:11 PM EDT documented as of this encounter Care Teams Transfer Knitter Relationship Specialty Start Date End Date Casa Phillips MD [address] [place] [address] PCP - General 02/22/25 Forrest Nickerson APRN [address] [place] [address] 03/06/23 documented as of this encounter
--- OUTSIDE RECORDS SUMMARY | 2025-06-15 10:16 | XMS_ITS | Encounter Summary ---
Author Organization [facility] Address [address] [place] [address] Care Team Providers Care Cement Breaker Name Role Phone Demetrio Nickersonann Cardenas SECTION HAND Unavailable [phone] Casa Phillips MD Primary Care Provider [phone] Encounter Details Date Type Department Care Team (Late st Contact Info) Description 05/31/2025 Telephone Pav CC Head, Neck & Respiratory 800 [facility], 2nd [place] [address] Nikolai Naranjo MD 800 [facility] [place] [facility] [address] [place] [address] Social History Tobacco Use Types [...] the paperwork. Please call Nora back at [phone]. documented in this encounter Plan of Treatment Upcoming Encounters Date Type Department Care Team ([facility] st Contact Info) Description 07/06/2025 10:40 AM EDT Office Visit Pav CC Head, Neck & Respiratory 800 [facility], 2nd [place] [address] Nikolai Naranjo MD 800 [facility] [place] [facility] [address] [place] [address] documented as of this encounter Visit Diagnoses Not on filedocumented in this encounter Additional Health Concerns Assessment Noted Time A fall risk assessment has been complete d for the patient 04/20/2025 10:24 AM EDT A Body Mass Index follow-up plan has been documented for the patient 04/23/2025 4:10 PM EDT documented as of this encounter Care Teams Cement Breaker Relationship Specialty Start Date End Date Casa Phillips MD [address] [place] [address] PCP - General 02/22/25 Forrest Nickerson APRN [address] [place] [address] 03/06/23 documented as of this encounter
--- OUTSIDE RECORDS SUMMARY | 2025-06-15 10:16 | XMS_ITS | Encounter Summary ---
Author Organization [facility] Address [address] [place] [address] Care Team Providers Care Sales Team Leader Name Role Phone Forrest Nickerson CEILING INSULATION BLOWER Unavailable [phone] Casa Phillips MD Primary Care Provider [phone] Encounter Details Date Type Department Care Team [...] Upcoming Encounters Date Type Department Care Team ([facility] Contact Info) Description 07/06/2025 10:40 AM EDT Office Visit Pav CC Head, Neck & Respiratory 800 [facility], 2nd [place] [address] Nikolai Naranjo MD 800 [facility] [address] [facility] [address] [place] [address] documented as of this encounter Visit Diagnoses Not on filedocumented in this encounter Additional Health Concerns Assessment Noted Time A fall risk assessment has been complete d for the patient 04/20/2025 10:24 AM EDT A Body Mass Index follow-up plan has been documented for the patient 04/23/2025 4:10 PM EDT documented as of this encounter Care Teams Sales Team Leader Relationship Specialty Start Date End Date Casa Phillips MD [address] [place] [address] PCP - General 02/22/25 Forrest Nickerson APRN [address] [place] [address] 03/06/23 documented as of this encounter
--- OUTSIDE RECORDS SUMMARY | 2025-06-15 10:16 | XMS_ITS | Clinical Summary ---
Author Organization [place] ([place], [place] Address [address] [place] [address] Care Team Providers Care Windows Security Engineer Name Role Phone Unavailable Primary Care Provider [...] Date Terrance rded Speak language other than Maori at home Not on file 11/01/2023 Want [...] Advance Directives For more information, please contact: [phone] * Full Code (Latest Code Status on File) Date Activated Date Inactivated Comments 05/31/2023 2:57 AM 06/05/2023 3:16 PM -Attempt Res uscitation if person has no pulse and is not breathing. -If no pulse or not breathing attempt CPR/CODE. -Call Rapid Response if patient is in distress.
--- OUTSIDE RECORDS SUMMARY | 2025-06-15 10:16 | XMS_ITS ---
Author Organization [facility] Address [address] [place] [address] Care Team Providers Care Temp Recruiter Name Role Phone Zari Nickersonhéctor Theresa RESIN MIXER Unavailable [phone] Casa Phillips MD Primary Care Provider [phone] Active Problems Problem Noted Date Diagnosed Date [...]
--- OUTSIDE RECORDS SUMMARY | 2025-06-15 10:16 | XMS_ITS | Encounter Summary ---
Author Organization [facility] Address [address] [place] [address] Care Team Providers Care Head Of English Name Role Phone Demetrio Nickersonann Theresa AUTOMOTIVE CUSTOMER EXPERIENCE ADVISOR Unavailable [phone] Casa Phillips MD Primary Care Provider [phone] Encounter Details Date Type Department Care Team (Late st Contact Info) Description 04/19/2025 Telephone Pav CC Head, Neck & Respiratory [address] [place] [address] Manny Lopez MD [address] [place] [address] Social History Tobacco Use Types Packs/Day Years [...] in the past 12 m [facility], were you homeless or living in a [...] - 04/19/2025 1:15 PM EDT Branden at [facility] [phone] called for lon said to call him back documented in this encounter Plan of Treatment Upcoming Encounters Date Type Department Care Team (Late st Contact Info) Description 07/06/2025 10:40 AM EDT Office Visit Pav CC Head, Neck & Respiratory 800 [facility], 2nd [place] [address] Nikolai Naranjo MD 800 [facility] [address] [place] [address] documented as of this encounter Visit Diagnoses Not on filedocumented in this encounter Additional Health Concerns Assessment Noted Time A fall risk assessment has been complete d for the patient 04/06/2025 10:27 AM EDT A Body Mass Index follow-up plan has been documented for the patient 04/06/2025 12:11 PM EDT documented as of this encounter Care Teams Head Of English Relationship Specialty Start Date End Date Casa Phillips MD [address] [place] [address] PCP - General 02/22/25 Forrest Nickerson APRN [address] [place] [address] 03/06/23 documented as of this encounter
--- OUTSIDE RECORDS SUMMARY | 2025-06-15 10:16 | XMS_ITS | Encounter Summary ---
Author Organization [facility] Address [address] [place] [address] Care Team Providers Care Retort Firer Name Role Phone Demetrio Nickersonann Theresa VIDEO GAME PROGRAMMER Unavailable Casa Phillips MD Primary Care Provider [phone] Encounter Details Date Type Department Care Team (Late st Contact Info) Description 04/20/2025 Telephone Pav CC Head, Neck & Respiratory [address], 2nd [place] [address] Ирина Lopez MD [address] [facility] [address] [place] [address] Social History Tobacco Use Types [...] regarding pain medication not being sent to [facility] in [place]. I confirmed it was sent at 11:42am. documented in this encounter Plan of Treatment Upcoming Encounters Date Type Department Care Team (Late st Contact Info) Description 07/06/2025 10:40 AM EDT Office Visit Pav CC Head, Neck & Respiratory 800 [facility], 2nd [place] [address] Nikolai Naranjo MD 800 [facility] [address] [place] [address] documented as of this encounter Visit Diagnoses Not on filedocumented in this encounter Additional Health Concerns Assessment Noted Time A fall risk assessment has been complete d for the patient 04/20/2025 10:24 AM EDT A Body Mass Index follow-up plan has been documented for the patient 04/23/2025 4:10 PM EDT documented as of this encounter Care Teams Retort Firer Relationship Specialty Start Date End Date Casa Phillips MD [address] [place] [address] PCP - General 02/22/25 Forrest Nickerson APRN [address] [place] [address] 03/06/23 documented as of this encounter
--- OUTSIDE RECORDS SUMMARY | 2025-06-15 10:16 | XMS_ITS | Encounter Summary ---
Author Organization [facility] Address [address] [place] [address] Care Team Providers Care Timers Inspector Name Role Phone Deep Keen APRN Primary Care Provider [phone] Forrest Nickerson APRN Unavailable [phone] Casa Phillips MD Primary Care Provider [phone] Encounter Details Date Type Department Care Team (Late Contact Info) Description 05/12/2024 Orders Only External Location [address] [place] [address] Provider, External Social History Tobacco Use Types [...] Upcoming Encounters Date Type Department Care Team ([facility] Contact Info) Description 07/06/2025 10:40 AM EDT Office Visit Pav CC Head, Neck & Respiratory 800 [facility], 2nd [place] [address] Nikolai Naranjo MD [address] [facility] [address] [place] [address] documented as of this encounter Procedures Procedure [...] documented as of this encounter Care Teams Timers Inspector Relationship Specialty Start Date End Date Deep Keen APRN [address] [place] [address] PCP - General 03/06/23 02/21/25 Casa Phillips MD [address] [place] [address] PCP - General 02/22/25 Forrest Nickerson APRN [address] [place] [address] 03/06/23 documented as of this encounter
[2025-06-15 10:38] LABS: RBC Morphology Normal; Total Cells Counted 25
== END 2025-06-15 09:55 | disposition home or self-care (01) ==
LOC: INF 09:45
PROVIDERS: PCP Family Medicine; Visit Provider Internal Medicine Medical Oncology
DX: C34.12 Malignant neoplasm of upper lobe, left bronchus or lung (principal)
CPT/HCPCS: 36415; 85007; 85025

== ENCOUNTER 2025-07-06 12:36 | Outpatient (CLI) | payer MEDICARE, SELFPAY ==
--- OUTSIDE RECORDS SUMMARY | 2025-07-06 12:39 | XMS_ITS | Encounter Summary ---
Author Organization [facility] Address [address] [place] [address] Care Team Providers Care Slitter And Rewinder Machine Operator Name Role Phone Demetrio Nickersonann Cardenas COLORER MACHINE Unavailable [phone] Casa Phillips MD Primary Care Provider [phone] Encounter Details Date Type Department Care Team (Late st Contact Info) Description 05/27/2025 Telephone Pav CC Head, Neck & Respiratory [address] [facility], 2nd [place] [address] Nikolai Naranjo MD 800 [facility] [address] [place] [address] Social History Tobacco Use Types [...] any time in the past 12 m [facility], were you homeless or living in [...] PM EDT Patient's daughter called back. Emailed [facility] paperwork to me and explained that [...] Nora back with any questions or concerns [phone] documented in this encounter Plan of Treatment Not on file documented as of this encounter Visit Diagnoses Not on filedocumented in this encounter Additional Health Concerns Assessment Noted Time A fall risk assessment has been complete d for the patient 04/20/2025 10:24 AM EDT A Body Mass Index follow-up plan has been documented for the patient 04/23/2025 4:10 PM EDT documented as of this encounter Care Teams Slitter And Rewinder Machine Operator Relationship Specialty Start Date End Date Casa Phillips MD [address] [place] [address] PCP - General 02/22/25 Forrest Nickerson APRN [address] [place] [address] 03/06/23 documented as of this encounter
--- OUTSIDE RECORDS SUMMARY | 2025-07-06 12:39 | XMS_ITS ---
Author Organization [facility] Address [address] [place] [address] Care Team Providers Care Airport Manager Name Role Phone Zari Nickersonhéctor Theresa DISTRICT PLANT SUPERVISOR Unavailable [phone] Casa Phillips MD Primary Care Provider [phone] Active Problems Problem Noted Date Diagnosed Date [...]
--- OUTSIDE RECORDS SUMMARY | 2025-07-06 12:39 | XMS_ITS | Encounter Summary ---
Author Organization [facility] Address [address] [place] [address] Care Team Providers Care Headwaiter/Headwaitress Name Role Phone Deep Keen APRN Primary Care Provider [phone] Forrest Nickerson APRN Unavailable [phone] Casa Phillips MD Primary Care Provider + [phone] Encounter Details Date Type Department Care Team (Late st Contact Info) Description 05/12/2024 Orders Only External Location 800 [place] [address] Provider, External Social History Tobacco Use Types [...] as of this encounter Plan of Treatment Not on file documented as of this encounter Procedures Procedure [...] documented as of this encounter Care Teams Headwaiter/Headwaitress Relationship Specialty Start Date End Date Deep Keen APRN [address] [place] [address] PCP - General 03/06/23 02/21/25 Casa Phillips MD [address] [place] [address] PCP - General 02/22/25 Forrest Nickerson APRN [address] [place] [address] 03/06/23 documented as of this encounter
--- OUTSIDE RECORDS SUMMARY | 2025-07-06 12:39 | XMS_ITS | Encounter Summary ---
Author Organization [facility] Address [address] [place] [address] Care Team Providers Care Picked Edge Sewing Machine Operator Name Role Phone Forrest Nickerson CARPET SEWING MACHINE OPERATOR Unavailable [phone] Casa Phillips MD Primary Care Provider [phone] Encounter Details Date Type Department Care Team (Late st Contact Info) Description 04/07/2025 Telephone PAV CC Hematology/BMT and Cellular Therapy Program [address] [place] [address] [place] [address] Tyler Montero Social History Tobacco Use Types [...] documented as of this encounter Care Teams Picked Edge Sewing Machine Operator Relationship Specialty Start Date End Date Casa Phillips MD [address] [place] [address] PCP - General 02/22/25 Forrest Nickerson APRN [address] [place] [address] 03/06/23 documented as of this encounter
--- OUTSIDE RECORDS SUMMARY | 2025-07-06 12:39 | XMS_ITS | Encounter Summary ---
Author Organization [facility] Address [address] [place] [address] Care Team Providers Care Fast Food Manager Name Role Phone Forrest Nickerson ANIMAL SHELTER CLERK Unavailable [phone] Casa Phillips MD Primary Care Provider [phone] Encounter Details Date Type Department Care Team (Late st Contact Info) Description 04/07/2025 Telephone PAV CC Hematology/BMT and Cellular Therapy Program [address] [place] [address] [place] [address] Tyler Montero Social History Tobacco Use Types [...] documented as of this encounter Care Teams Fast Food Manager Relationship Specialty Start Date End Date Casa Phillips MD [address] [place] [address] PCP - General 02/22/25 Forrest Nickerson APRN [address] [place] [address] 03/06/23 documented as of this encounter
--- OUTSIDE RECORDS SUMMARY | 2025-07-06 12:39 | XMS_ITS | Clinical Summary ---
Author Organization [facility] Address [address] [place] [address] Care Team Providers Care Youth Teacher Name Role Phone Demetrio trevinoann Cardenas PHOTOGRAPHY SPOTTER Unavailable [phone] Casa Phillips MD Primary Care Provider [phone] Allergies Active Allergy Reactions Criticality Noted Date [...] Pav CC Head, Neck & Respiratory [address] [address] Nikolai Naranjo MD 05/27/2025 Telephone Pav CC Head, Neck & Respiratory 800 [facility], [address] [place] [address] Nikolai Naranjo MD 04/20/2025 10:30 AM EDT Office Visit Pav CC Head, Neck & Respiratory [address] [address] Ирина Lopez MD 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) (Primary Dx) 04/20/2025 10:00 AM EDT - 04/20/2025 11:59 PM EDT Hospital Encounter PAV H Radiology 800 [place] [address] Non-small cell cancer of left lung (CMS/HCC) Discharge Disposition: Home or Self Care 04/20/2025 Telephone Pav CC Head, Neck & Respiratory [address] [address] Ирина Lopez MD 04/20/2025 Travel 04/19/2025 Telephone Pav CC Head, Neck & Respiratory [address] [address] Manny Lopez MD 04/07/2025 Telephone PAV CC Hematology/BMT and Cellular Therapy Program [address] [address] [facility] 04/07/2025 Telephone PAV CC Hematology/BMT and Cellular Therapy Program [address] [address] [facility] 04/07/2025 Telephone PAV CC Hematology/BMT and Cellular Therapy Program [address] [place] [address] [facility] 04/07/2025 Telephone Pav CC Head, Neck & Respiratory [address] [address] Aishwarya Dye RN 04/06/2025 11:30 AM EDT Office Visit Pav CC Head, Neck & Respiratory [address] [address] Ирина Lopez MD Non-small cell cancer of left lung (CMS/HCC) (Primary Dx) 04/06/2025 10:40 AM EDT Office Visit Pav CC Head, Neck & Respiratory [address] [address] Nikolai Naranjo MD Non-small cell cancer of left lung (CMS/HCC) (Primary Dx); CKD (chronic kidney disease) stage 2, GFR 60-89 ml/min; Tobacco use disorder; Essential hypertension; Type 2 diabetes mellitus with stage 2 chronic kidney disease, without long-term current use of insulin (CMS/HCC) 04/06/2025 Telephone Pav CC Head, Neck & Respiratory 800 [facility], 2nd [place] [address] Nikolai Naranjo MD 04/06/2025 Travel from Last 3 Months Family History [...] time in the past 12 m [facility], were you homeless or living in a [...] 03/30/2025 1:25 PM EDT Plan of Treatment Health Maintenance Due Date Last Done Comments [facility]-Depression Screening 1945 [facility]-Diabetes: Hemoglobin A1C 1945 [facility]-Hepatitis C Screening 1945 [facility]-Medicare Annual Wellness (AWV) 1945 [facility]-/Child/Adol SDOH Screenings 1945 [id number] Vaccine (#1) 1951 Diabetes: Dental Exam 1956 [...] MD IMG XR PROCEDURES Final Resu lt from Last 3 Months Insurance ANTHEM MEDICARE ANTHEM MEDICARE Advance Directives * Full Code (Latest Code Status on File) Date Activated Date Inactivated Comments 03/29/2025 7:30 PM 04/04/2025 2:23 PM Question Answer Comments I have reviewed the capacity from the link above and, if needed, have updated to appropriate status: No Care Teams Youth Teacher Relationship Specialty Start Date End Date Casa Phillips MD [address] [place] [address] PCP - General 02/22/25 Forrest Nickerson APRN [address] [place] [address] 03/06/23
--- OUTSIDE RECORDS SUMMARY | 2025-07-06 12:39 | XMS_ITS | Encounter Summary ---
Author Organization [facility] Address [address] [place] [address] Care Team Providers Care Rehabilitation Center Manager Name Role Phone Demetrio Nickersonann Cardenas CIRCUS ARTIST Unavailable [phone] Casa Phillips MD Primary Care Provider [phone] Encounter Details Date Type Department Care Team (Late st Contact Info) Description 05/31/2025 Telephone Pav [facility] Head, Neck & Respiratory 800 [facility], [address]nd [place] [address] Nikolai Naranjo MD 800 [facility] [address] [place] [address] Social History Tobacco Use Types [...] in the past 12 m [facility], were you homeless or living [...] the [place] paperwork. * Telephone Encounter - Windy Sexton - 05/31/2025 2:51 PM EDT Patient daughter is wondering about [facility] paperwork, said papers were sent from our office to the [place] office but nothing was filled out. Pt daughter said they were sent either last or Saturday, but nothing was done additionally to the paperwork. Please call Nora back at [phone]. documented in this encounter Plan of Treatment [...] documented as of this encounter Care Teams Rehabilitation Center Manager Relationship Specialty Start Date End Date Casa Phillips MD [address] [place] [address] PCP - General 02/22/25 Forrest Nickerson APRN [address] [place] [address] 03/06/23 documented as of this encounter
--- NOTE | 2025-07-06 13:00 | CT_ITS ---
FINAL REPORT TECHNIQUE: Thin section axial images were obtained from the thoracic inlet through the upper abdomen after intravenous contrast injection. Reconstruction images were obtained from the axial data. Exam was performed using dose reduction technique. CLINICAL HISTORY: Lung Cancer COMPARISON: 12/18/2024 FINDINGS: There is no axillary adenopathy. Precarinal lymph node measures 10 mm, unchanged. There is no hilar lymphadenopathy. Trace left effusion is identified. There is no right pleural effusion. The heart is stable in size. There has been interval left upper lobectomy. There is a loculated pneumothorax in the anterior/superior left hemithorax. Subpleural left lower lobe nodule measures 3 mm on series 2, image 55 is unchanged. Right middle lobe atelectasis is unchanged. Limited images of the upper abdomen reveal multiple hypodense liver lesions which appear unchanged, favor cysts. There are multiple left rib fractures of varying in age, most appear chronic. There is no acute osseous abnormality. IMPRESSION: Interval left upper lobectomy with loculated pneumothorax in the left hemithorax. Timing of surgery was not provided. It is unclear if this was present since the surgery. Bronchopleural fistula is difficult to exclude. Reviewed, Interpreted and Dictated by Leti yDe MD Transcribed by Aline Godoy Authenticated and [facility]
[2025-07-06] MEDS: SODIUM CHLORIDE 0.9% 10ML SYR (RAD ONLY) 10 ML IV (13:29)
[2025-07-06] MEDS: IOPAMIDOL-370 (76%);100ML BOTTLE 75 ML IV (13:29)
--- OUTSIDE RECORDS SUMMARY | 2025-08-14 20:00 | XMS_ITS | Clinical Summary ---
Author Organization Unknown Care Team Providers Care Tack Coverer Name Role Phone LORI ARELLANO, GABRIEL Unavailable Unavailable ANA MARÍA PT, LACY Unavailable Unavailable RONY DISHWASHER, MILTON Unavailable Unavailable Payers Payer Name Policy Type Policy Number Effective Date Expira tion Date TONYAUTH [id number] Problems Condition Name Condition Details Condition Category [...] 06-17 00:00: 00 ATHSCL HEART DISEASE OF [place] CORONARY ARTERY W/O ANG PCTRS Active 06-17 [...] OF NICOTINE DEPENDENCE Active 06-17 00:00: 00 LONG-TERM (CURRENT) USE OF ORAL HYPOGLYCEMIC DRUGS Active 06-17 00:00: 00 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) USE OF ANTITHROMBOT ICS/ANTIPLAT ELETS Active [...] 06-11 00:00: 00 06-17 00:00 :00 No [id number] Per instruc tions EVERY DAY Per instructio ns EVERY DAY (route: oral) Med Classific ation: Anti-Infe ctive Agents metformin 1,000 mg tablet 06-10 00:00: 00 Yes [id number] T2DM 1 tablet 2 TIMES DAILY 1 tablet 2 TIMES DAILY (route: oral) Med Classific ation: Endocrine meloxicam 7.5 mg tablet 06-07 00:00: 00 Yes [id number] ARTHRITIS 1 tablet DAILY 1 tablet DAILY (route: oral) Med Classific ation: Analgesic , Anti-infl ammatory or Antipyret ic chlorpromaz ine 10 mg tablet 05-22 00:00: 00 Yes [id number] HICCUPS Per instruc tions EVERY 4 HOURS Per instructio ns EVERY 4 HOURS (route: oral) Med Classific ation: Central Nervous System Agents metoclopram shay 10 mg tablet 05-22 00:00: 00 Yes [id number] HICCUPS 1 tablet EVERY 8 HOURS 1 tablet EVERY 8 HOURS (route: oral) Med Classific ation: Gastroint estinal Therapy Agents clopidogrel 75 mg tablet 05-20 00:00: 00 Yes [id number] HEART 1 tablet DAILY 1 tablet DAILY (route: oral) Med Classific ation: Hematolog ical Agents rosuvastati n 20 mg tablet 06-17 00:00: 00 Yes [id number] CHOLESTEROL 1 tablet DAILY 1 tablet DAILY (route: oral) Med Classific ation: Cardiovas cular Therapy Agents Vital Signs Vital Name Observation Time Observation Value Commen ts Temperature 2025-07-05 13:50:00.000 97.9 [degF] Temperature 2025-06-25 14:16:00.000 98.7 [degF] Temperature 2025-06-17 15:47:00.000 98.7 [degF] BMI (%) 2025-06-17 15:43:54.000 19 kg/m2 Height 2025-06-17 15:42:46.000 70 [in_us] Pulse 2025-07-05 13:50:00.000 85 /min Pulse 2025-07-03 16:11:00.000 88 /min Pulse 2025-06-25 14:16:00.000 86 /min Pulse 2025-06-17 15:47:00.000 91 /min O2 Saturation (%) 2025-07-05 13:50:00.000 94 % O2 Saturation (%) 2025-07-03 16:11:00.000 99 % O2 Saturation (%) 2025-06-25 14:16:00.000 97 % O2 Saturation (%) 2025-06-17 15:47:00.000 98 % Respirations 2025-07-05 13:50:00.000 18 /min Respirations 2025-07-03 16:11:00.000 18 /min Respirations 2025-06-25 14:16:00.000 18 /min Respirations 2025-06-17 15:47:00.000 18 /min Weight (lbs) 2025-06-17 15:43:54.000 139 [lb_av] Systolic Blood Pressure 2025-07-05 13:50:00.000 124 mm [Hg] Systolic Blood Pressure 2025-07-03 16:11:00.000 122 mm [Hg] Systolic Blood Pressure 2025-06-25 14:16:00.000 140 mm [Hg] Systolic Blood Pressure 2025-06-17 15:47:00.000 126 mm [Hg] Diastolic Blood Pressure 2025-07-05 13:50:00.000 [...] TO EVALUATE, OBSERVE / ASSESS, AND MONITOR, DISHWASHER TO OBSERVE AND MONITOR, PROVIDE SKILLED THERAPEUTIC INTERVENTION, ACTIVITY, EDUCATION, AND TRAINING TO ADDRESS; [code = AGENCY MAY PERFORM A RESUMPTION OF CARE VISIT FOLLOWING ANY HOSPITAL ADMISSION. PT TO EVALUATE, OBSERVE / ASSESS, AND MONITOR, DISHWASHER TO OBSERVE AND MONITOR, PROVIDE SKILLED THERAPEUTIC INTERVENTION, ACTIVITY, EDUCATION, AND TRAINING TO ADDRESS;] Future Scheduled Test THERAPEUTI C EXERCISES AND ESTABLISHING A HOME EXERCISE PROGRAM (PT/DISHWASHER) [code = THERAPEUTIC EXERCISES AND ESTABLISHING A HOME EXERCISE PROGRAM (PT/DISHWASHER)] Future Scheduled Test NEUROMUSCU LAR RE-EDUCATION / BALANCE / POSTURAL CONTROL (PT) [code = NEUROMUSCULAR RE-EDUCATION / BALANCE / POSTURAL CONTROL (PT)] Future Scheduled Test SIT TO/FRO M STAND TRANSFERS (PT/DISHWASHER) [code = SIT TO/FROM STAND TRANSFERS (PT/DISHWASHER)] Future Scheduled Test PT/DISHWASHER TO PROVIDE GAIT TRAINING FOR IMPROVED MOBILITY AND /OR TO NORMALIZE GAIT PATTERN [code = PT/DISHWASHER TO PROVIDE GAIT TRAINING FOR IMPROVED MOBILITY AND /OR TO NORMALIZE GAIT PATTERN] Future Scheduled Test PT/DISHWASHER TO IDENTIFY FALL RISK FACTORS; EDUCATE THE PATIENT/CAREGIVER ON WAYS TO REDUCE FALL RISK FACTORS AND ESTABLISH HOME EXERCISE PROGRAM TO MINIMIZE FALL RISK. MAY TEACH THE PATIENT FLOOR RECOVERY WHEN CLINICALLY APPROPRIATE [code = PT/DISHWASHER TO IDENTIFY FALL RISK FACTORS; EDUCATE THE PATIENT/CAREGIVER ON WAYS TO REDUCE FALL RISK FACTORS AND ESTABLISH HOME EXERCISE PROGRAM TO MINIMIZE FALL RISK. MAY TEACH THE PATIENT FLOOR RECOVERY WHEN CLINICALLY APPROPRIATE] Future Scheduled Test PT / DISHWASHER T O INSTRUCT PATIENT/CAREGIVER ON RISK FOR HOSPITALIZATION/EMERGENCY ROOM VISITS, TEACH SIGNS AND SYMPTOMS THAT PUT PATIENT AT RISK, WHEN TO NOTIFY NURSE/PHYSICIAN OF COMPLICATIONS/DECLINE, AND WHEN TO CALL 911. [code = PT / DISHWASHER TO INSTRUCT PATIENT/CAREGIVER ON RISK FOR HOSPITALIZATION/EMERGENCY ROOM VISITS, TEACH SIGNS AND SYMPTOMS THAT PUT PATIENT AT RISK, WHEN TO NOTIFY NURSE/PHYSICIAN OF COMPLICATIONS/DECLINE, AND WHEN TO CALL 911.] Future Scheduled Test PT / DISHWASHER T O MONITOR AND EDUCATE ON OXYGEN SATURATION DURING ADLS/IADLS, NOTIFY PHYSICIAN AND/OR THE RN CLINICAL WINDCHILL ADMINISTRATOR FOR PHYSICIAN NOTIFICATION AND IF O2 SATS BELOW PHYSICIAN ORDERED PARAMETERS AFTER 10 MIN OF REST [code = PT / DISHWASHER TO MONITOR AND EDUCATE ON OXYGEN SATURATION DURING ADLS/IADLS, NOTIFY PHYSICIAN AND/OR THE RN CLINICAL WINDCHILL ADMINISTRATOR FOR PHYSICIAN NOTIFICATION AND IF O2 [...] PHYSICIAN ORDERED PARAMETERS THROUGHOUT EPISODE OF CARE. Progress Notes Progress Notes <paragraph>[Visit Date: 2024 by LACY GOTTI PT]:</paragraph><paragraph>PATIENT HAS A CT SCAN TOMORROW. PATIENT STATES PLEASED WITH CARE. PATIENT DENIES ANY FALLS. PATIENT AGREES WITH TREATMENT. HOMEBOUND DUE TO PATIENT DEMONSTRATES DIFFICULTY WITH FUNCTIONAL ACTIVITIES. PATIENT NEEDS ASSISTANCE AND NEED OF AD WITH AMBULATION AND TRANSFERS. </paragraph><paragraph></paragraph><paragraph>PATIENT IS A 79 YEAR OLD MALE WITH HISTORY OF RECENT HOSPITALIZATION WITH PROGRESSIVE WEAKNESS FROM LEFT UPPER LOBE LUNG CANCER WITH LUNG NODULE REMOVAL WITH CHEMO TREATMENT AND FALL WHEN RETURNING HOME WITH NOTABLE PMH OF T2DM, COPD, CHRONIC RENAL FAILURE, HLD, CAD, HTN THAT HAS AFFECTED HIS SAFETY OF FUNCTIONAL ACTIVITIES. 6 MINUTE WALK TEST, 5TSTS, TUG COMPLETED. GT WITH ROLLATOR WITH VC ON AD POSITIONING AND FOOT CLEARANCE. SIT TO STANS TRANSFER COMPLETED WITH VC ON HAND AND TRUNK POSITIONING. WENT OVER HEP WITH PATIENT TEACHBACK OF SITTING MARCHING, KNEE EXTENSION, KNEE FLEXION, SNOW ANGELS, SITTING SLR, SITTING SLR ANKLE PUMPS. REEDUCATED OVER HOME ENVIORNMENT CHANGES WITH FOCUS ON GETTING RID OF SLICK RUGS IN HOME. PATIENT HAS DEONSTRATED NOTABLE IMPROVEMENT WITH FUNCTIONAL TESTING INDICATING DECREASED FALL RISK AND CONTINUED APPROPRIATE FOR PT TO CONTINUE TO REDUCE FALL RISK AND IMPROVE INDEPENDENCE WITHIN HOME. </paragraph><paragraph></paragraph><paragraph>PT STG: PATIENT WILL DEMONSTRATE IMPROVED FUNCTIONAL STRENGTH EVIDENCED BY FIVE TIMES SIT TO STAND TEST (CUT SCORE >12 SECONDS INDICATES AN INCREASED FALL RISK) IMPROVING FROM 42 SECONDS TO LESS THAN OR EQUAL TO 36 SECONDS WITHIN 4 WEEKS IN ORDER TO DECREASE FALL RISK MET 42 TO 29 SECONDS INDICATING DECREASED FALL RISK </paragraph><paragraph>PT LTG: PATIENT WILL DEMONSTRATE IMPROVED FUNCTIONAL STRENGTH EVIDENCED BY FIVE TIMES SIT TO STAND TEST (CUT SCORE >12 SECONDS INDICATES AN INCREASED FALL RISK) IMPROVING FROM 42 SECONDS TO LESS THAN OR EQUAL TO 12 SECONDS WITHIN 8 WEEKS IN ORDER TO DECREASE FALL RISK PROGRESSING SEE ABOVE </paragraph><paragraph>PT LTG: PATIENT WILL DEMONSTRATE INDEPENDENCE AND COMPLIANCE WITH HEP WITHIN 4 WEEKS PROGRESSING </paragraph><paragraph>PT STG: PATIENT WILL DEMONSTRATE REDUCED FALL RISK EVIDENCED BY TUG TEST (CUT SCORE >11 SECONDS INDICATES INCREASED FALL RISK) IMPROVING FROM 35 SECONDS TO LESS THAN OR EQUAL TO 29 SECONDS WITHIN 4 WEEKS PROGRESSING 35 TO 26 SECONDS INDICATING DECREASED FALL RISK </paragraph><paragraph>PT LTG: PATIENT WILL DEMONSTRATE REDUCED FALL RISK EVIDENCED BY TUG TEST (CUT SCORE >11 SECONDS INDICATES INCREASED FALL RISK) IMPROVING FROM 35 SECONDS TO LESS THAN OR EQUAL TO 11 SECONDS WITHIN 8 WEEKS PROGRESSING SEE ABOVE </paragraph><paragraph>PT LTG: PATIENT WILL DEMONSTRATE IMPROVED ABILITY TO PERFORM SIT TO/FROM STAND TRANSFERS TO REDUCE THE RISK OF SKIN BREAKDOWN AND REDUCE FALL RISK FROM CGA TO IND WITHIN 8 WEEKS PROGRESSING CGA TO SBA</paragraph><paragraph>PT STG: PATIENT WILL DEMONSTRATE IMPROVED 6 MINUTE WALK TEST AMBULATION FROM 100 FT CGA TO 200 FT SBA WITH APPROPRIATE AD WITHIN 4 WEEKS. MET 100 CGA TO 240 SBA</paragraph><paragraph>PT LTG: PATIENT WILL DEMONSTRATE IMPROVED 6 MINUTE WALK TEST AMBULATION FROM 100 FT CGA TO 300 FT IND WITH APPROPRIATE AD WITHIN 8 WEEKS. PROGRESSING SEE ABOVE </paragraph><paragraph>PT LTG: PATIENT/CAREGIVER WILL DEMONSTRATE ADHERENCE TO FALL REDUCTION SELF-MANAGEMENT AND REDUCING FALL RISK FACTORS TO MINIMIZE FALL RISK BY END OF EPISODE. MET EDUCATED </paragraph><paragraph>PT GOAL: PATIENT/CAREGIVER WILL VERBALIZE UNDERSTANDING OF SIGNS AND SYMPTOMS THAT PUT THE PATIENT AT RISK FOR HOSPITALIZATION /EMERGENCY ROOM VISITS, WHEN TO NOTIFY NURSE/PHYSICIAN OF COMPLICATIONS/DECLINE AND WHEN TO CALL 911. MET EDUCATED </paragraph><paragraph>PT LTG: PATIENT WILL MAINTAIN OXYGEN SATURATION WITHIN PHYSICIAN ORDERED PARAMETERS THROUGHOUT EPISODE OF CARE. MET EDUCATED</paragraph> Encounters Start Date/Time End Date/Time Encounter Type Admission Type Attending [facility] Facility Care Department Encounter ID Discharge Date Discharge Status Discharge Condition Discharge Reason Percent Goals Met 2025-06-17 00:00:00 2025-08-15 00:00:00 Outpatient NEW ADMISSION LACY GOTTI [facility] [id number] 50.00
== END 2025-07-06 23:59 | disposition home or self-care (01) ==
LOC: RAD 12:37
PROVIDERS: PCP Family Medicine; Visit Provider Internal Medicine Medical Oncology
DX: J93.83 Other pneumothorax (principal); C34.12 Malignant neoplasm of upper lobe, left bronchus or lung; Z90.2 Acquired absence of lung [part of]
CPT/HCPCS: 71260; Q9967

== ENCOUNTER 2025-07-20 11:16 | Outpatient (CLI) | payer MEDICARE, SELFPAY ==
[2025-07-20 10:59] LABS: Hematocrit 28.9 % (42.0-52.0); Hemoglobin 9.0 g/dL (14.1-18.0); Immature Granulocytes % 0.1 %; Mean Corpuscular HGB Conc 31.1 g/dL (31.8-35.4); Mean Corpuscular Hemoglobin 29.3 pg (27.0-31.2); Mean Corpuscular Volume 94.1 fl (80-94); Nucleated Red Blood Cells % 0 %; Platelet Count 245 K/mm3 (142-424); Red Blood Count 3.07 M/mm3 (4.60-6.20); Red Cell Distribution Width-SD 53.3 fL; White Blood Count 7.1 K/mm3 (4.8-10.8)
--- OUTSIDE RECORDS SUMMARY | 2025-07-20 11:20 | XMS_ITS | Encounter Summary ---
Author Organization [facility] Address [address] [place] [address] Care Team Providers Care Weigher Operator Name Role Phone Deep Keen APRN Primary Care Provider [phone] Forrest Nickerson APRN Unavailable [phone] Casa Phillips MD Primary Care Provider [phone] Encounter Details Date Type Department Care Team (Late st Contact Info) Description 05/12/2024 Orders Only External Location [address] [place] [address] Provider, External Social History Tobacco Use Types [...] documented as of this encounter Care Teams Weigher Operator Relationship Specialty Start Date End Date Deep Keen APRN [address] [place] [address] PCP - General 03/06/23 02/21/25 Casa Phillips MD [address] [place] [address] PCP - General 02/22/25 Forrest Nickerson APRN [address] [place] [address] 03/06/23 documented as of this encounter
--- OUTSIDE RECORDS SUMMARY | 2025-07-20 11:20 | XMS_ITS | Clinical Summary ---
Author Organization [facility] Address [address] [place] [address] Care Team Providers Care Underbaster Name Role Phone Demetrio trevinoann Cardenas ABRASIVE SAWYER Unavailable [phone] Casa Phillips MD Primary Care Provider [phone] Allergies Active Allergy Reactions Criticality Noted Date [...] Pav [facility] Head, Neck & Respiratory [address] [address] Nikolai Naranjo MD 05/27/2025 Telephone Pav CC Head, Neck & Respiratory 800 [facility], [address] [place] [address] Nikolai Naranjo MD 04/20/2025 10:30 AM EDT Office Visit Pav CC Head, Neck & Respiratory 800 [facility], [address] [place] [address] Ирина Lopez MD 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) (Primary Dx) 04/20/2025 10:00 AM EDT - 04/20/2025 11:59 PM EDT Hospital Encounter P[facility] H Radiology [address] [place] [address] Non-small cell cancer of left lung (CMS/HCC) Discharge Disposition: Home or Self Care 04/20/2025 Telephone Pav CC Head, Neck & Respiratory 800 [facility], [address] [place] [address] Ирина Lopez MD 04/20/2025 Travel 04/19/2025 Telephone Pav [facility] Head, Neck & Respiratory 800 [facility] [address] [place] [address] Manny Lopez MD from Last 3 Months Family [...] Wellness (AWV) 1945 UKY-/Child/Adol SDOH Screenings 1945 [id number] Vaccine (#1) 1950 Diabetes: Dental Exam 1956 [...] Resu lt from Last 3 Months Insurance MEDICARE [employer] MEDICARE Advance Directives * Full Code (Latest Code Status on File) Date Activated Date Inactivated Comments 03/29/2025 7:30 PM 04/04/2025 2:23 PM Question Answer Comments I have reviewed the capacity from the link above and, if needed, have updated to appropriate status: No Care Teams Underbaster Relationship Specialty Start Date End Date Casa Phillips MD [address] [place] [address] PCP - General 02/22/25 Forrest Nickerson APRN [address] [place] [address] 03/06/23
--- OUTSIDE RECORDS SUMMARY | 2025-07-20 11:20 | XMS_ITS ---
Author Organization [facility] Address [address] [place] [address] Care Team Providers Care Venue Attendant Name Role Phone Zari Nickersonhéctor Theresa PSYCHOLOGICAL EXAMINER Unavailable [phone] Casa Phillips MD Primary Care Provider [phone] Active Problems Problem Noted Date Diagnosed Date [...]
--- OUTSIDE RECORDS SUMMARY | 2025-07-20 11:20 | XMS_ITS | Encounter Summary ---
Author Organization [facility] Address [address] [place] [address] Care Team Providers Care Debt Recovery Officer Name Role Phone Demetrio Nickersonann Cardenas SIGNAL CONSTRUCTOR Unavailable [phone] Casa Phillips MD Primary Care Provider [phone] Encounter Details Date Type Department Care Team (Late st Contact Info) Description 05/31/2025 Telephone Pav [facility] Head, Neck & Respiratory 800 [facility], [address]nd [place] [address] Nikolai Naranjo MD 800 [facility] [address] [place] [address] Social History Tobacco Use Types [...] [facility] the [facility] or living in [...] PM EDT Patient daughter is wondering about [facility] paperwork, said papers were sent from [place] office to the [place] office but nothing was filled out. Pt daughter said they were sent either last or Saturday, but nothing was done additionally to the paperwork. Please call Nora back at [phone]. documented in this encounter Plan of Treatment [...] documented as of this encounter Care Teams Debt Recovery Officer Relationship Specialty Start Date End Date Casa Phillips MD [address] [place] [place] [address] PCP - General 02/22/25 Forrest Nickerson APRN [address] [place] [address] 03/06/23 documented as of this encounter
--- OUTSIDE RECORDS SUMMARY | 2025-07-20 11:20 | XMS_ITS | Encounter Summary ---
Author Organization [facility] Address [address] [place] [address] Care Team Providers Care Color Stripper Name Role Phone Demetrio Nickersonann Cardenas JUTE BAG CUTTING MACHINE OPERATOR Unavailable [phone] Casa Phillips MD Primary Care Provider [phone] Encounter Details Date Type Department Care Team (Late st Contact Info) Description 05/27/2025 Telephone Pav CC Head, Neck & Respiratory 800 [facility], [address] [place] [address] Nikolai Naranjo MD 800 [facility] [address] [place] [address] Social History Tobacco Use Types [...] PM EDT Patient's daughter called back. Emailed [facility] paperwork to me and explained that [...] Nora back with any questions or concerns [phone] documented in this encounter Plan of Treatment [...] documented as of this encounter Care Teams Color Stripper Relationship Specialty Start Date End Date Casa Phillips MD [address] [place] [address] PCP - General 02/22/25 Forrest Nickerson APRN [address] [place] [address] 03/06/23 documented as of this encounter
[2025-07-20 13:02] LABS: Alanine Aminotransferase 13 U/L (12-78); Albumin Level 4.1 g/dl (3.5-5.0); Albumin/Globulin Ratio 1.2 (1.1-1.8); Alkaline Phosphatase 124 U/L (38-126); Anion Gap 18.3 mEq/L (5-15); Aspartate Amino Transferase 24 U/L (17-59); Bilirubin,Total 0.7 mg/dl (0.2-1.3); Blood Urea Nitrogen 19 mg/dl (9-20); Calcium 9.7 mg/dl (8.4-10.2); Carbon Dioxide 25 mmol/L (22.0-30.0); Chloride 102 mmol/L (98-107); Creatinine,Serum 1.80 mg/dl (0.66-1.25); Estimated Glomerular Filt Rate 37 ml/min (>60); GFR (African American) 44 ML/MIN (>60); Globulin 3.5 g/dL (1.3-3.2); Glucose 140 mg/dl (74-100); Potassium 4.3 mmoL/L (3.5-5.1); Sodium 141 mmol/L (136-145); Total Protein,Serum 7.6 g/dl (6.3-8.2)
--- OUTSIDE RECORDS SUMMARY | 2025-08-14 20:00 | XMS_ITS | Clinical Summary ---
Author Organization Unknown Care Team Providers Care Commercial Designer Name Role Phone LORI ARELLANO, GABRIEL Unavailable Unavailable ANA MARÍA PT, LACY Unavailable Unavailable RONY PRECISION ASSEMBLER, MILTON Unavailable Unavailable Payers Payer Name Policy Type Policy Number Effective Date Expira tion Date TONYAUTH [id number] Problems Condition Name Condition Details Condition Category [...] 06-17 00:00: 00 ATHSCL HEART DISEASE OF [place] CORONARY ARTERY W/O ANG PCTRS Active 06-17 [...] OF NICOTINE DEPENDENCE Active 06-17 00:00: 00 HALFWAY (CURRENT) USE OF ORAL HYPOGLYCEMIC DRUGS Active 06-17 00:00: 00 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 (CURRENT) USE OF ANTITHROMBOT ICS/ANTIPLAT ELETS Active [...] 06-11 00:00: 00 06-17 00:00 :00 No [id number] Per instruc tions EVERY DAY Per instructio ns EVERY DAY (route: oral) Med Classific ation: Anti-Infe ctive Agents metformin 1,000 mg tablet 06-10 00:00: 00 Yes [id number] T2DM 1 tablet 2 TIMES DAILY 1 tablet 2 TIMES DAILY (route: oral) Med Classific ation: Endocrine meloxicam 7.5 mg tablet 06-07 00:00: 00 Yes [id number] ARTHRITIS 1 tablet DAILY 1 tablet DAILY (route: oral) Med Classific ation: Analgesic , Anti-infl ammatory or Antipyret ic chlorpromaz ine 10 mg tablet 05-22 00:00: 00 Yes [id number] HICCUPS Per instruc tions EVERY 4 HOURS Per instructio ns EVERY 4 HOURS (route: oral) Med Classific ation: Central Nervous System Agents metoclopram shay 10 mg tablet 05-22 00:00: 00 Yes [id number] HICCUPS 1 tablet EVERY 8 HOURS 1 tablet EVERY 8 HOURS (route: oral) Med Classific ation: Gastroint estinal Therapy Agents clopidogrel 75 mg tablet 05-20 00:00: 00 Yes [id number] HEART 1 tablet DAILY 1 tablet DAILY (route: oral) Med Classific ation: Hematolog ical Agents rosuvastati n 20 mg tablet 06-17 00:00: 00 Yes [id number] CHOLESTEROL 1 tablet DAILY 1 tablet DAILY (route: oral) Med Classific ation: Cardiovas cular Therapy Agents Vital Signs Vital Name Observation Time Observation Value Commen ts Temperature 2025-07-16 15:11:00.000 98.3 [degF] Temperature 2025-07-05 13:50:00.000 97.9 [degF] Temperature 2025-06-25 14:16:00.000 98.7 [degF] Temperature 2025-06-17 15:47:00.000 98.7 [degF] BMI (%) 2025-06-17 15:43:54.000 19 kg/m2 Height 2025-06-17 15:42:46.000 70 [in_us] Pulse 2025-07-16 15:11:00.000 76 /min Pulse 2025-07-05 13:50:00.000 85 /min Pulse 2025-07-03 16:11:00.000 88 /min Pulse 2025-06-25 14:16:00.000 86 /min Pulse 2025-06-17 15:47:00.000 91 /min O2 Saturation (%) 2025-07-16 15:11:00.000 98 % O2 Saturation (%) 2025-07-05 13:50:00.000 94 % O2 Saturation (%) 2025-07-03 16:11:00.000 99 % O2 Saturation (%) 2025-06-25 14:16:00.000 97 % O2 Saturation (%) 2025-06-17 15:47:00.000 98 % Respirations 2025-07-16 15:11:00.000 18 /min Respirations 2025-07-05 13:50:00.000 18 /min Respirations 2025-07-03 16:11:00.000 18 /min Respirations 2025-06-25 14:16:00.000 18 /min Respirations 2025-06-17 15:47:00.000 18 /min Weight (lbs) 2025-06-17 15:43:54.000 139 [lb_av] Systolic Blood Pressure 2025-07-16 15:11:00.000 122 mm [Hg] Systolic Blood Pressure 2025-07-05 13:50:00.000 124 mm [Hg] Systolic Blood Pressure 2025-07-03 16:11:00.000 122 mm [Hg] Systolic Blood Pressure 2025-06-25 14:16:00.000 140 mm [Hg] Systolic Blood Pressure 2025-06-17 15:47:00.000 126 mm [Hg] Diastolic Blood Pressure 2025-07-16 15:11:00.000 [...] TO EVALUATE, OBSERVE / ASSESS, AND MONITOR, PRECISION ASSEMBLER TO OBSERVE AND MONITOR, PROVIDE SKILLED THERAPEUTIC INTERVENTION, ACTIVITY, EDUCATION, AND TRAINING TO ADDRESS; [code = AGENCY MAY PERFORM A RESUMPTION OF CARE VISIT FOLLOWING ANY HOSPITAL ADMISSION. PT TO EVALUATE, OBSERVE / ASSESS, AND MONITOR, PRECISION ASSEMBLER TO OBSERVE AND MONITOR, PROVIDE SKILLED THERAPEUTIC INTERVENTION, ACTIVITY, EDUCATION, AND TRAINING TO ADDRESS;] Future Scheduled Test THERAPEUTI C EXERCISES AND ESTABLISHING A HOME EXERCISE PROGRAM (PT/PRECISION ASSEMBLER) [code = THERAPEUTIC EXERCISES AND ESTABLISHING A HOME EXERCISE PROGRAM (PT/PRECISION ASSEMBLER)] Future Scheduled Test NEUROMUSCU LAR RE-EDUCATION / BALANCE / POSTURAL CONTROL (PT) [code = NEUROMUSCULAR RE-EDUCATION / BALANCE / POSTURAL CONTROL (PT)] Future Scheduled Test SIT TO/FRO M STAND TRANSFERS (PT/PRECISION ASSEMBLER) [code = SIT TO/FROM STAND TRANSFERS (PT/PRECISION ASSEMBLER)] Future Scheduled Test PT/PRECISION ASSEMBLER TO PROVIDE GAIT TRAINING FOR IMPROVED MOBILITY AND /OR TO NORMALIZE GAIT PATTERN [code = PT/PRECISION ASSEMBLER TO PROVIDE GAIT TRAINING FOR IMPROVED MOBILITY AND /OR TO NORMALIZE GAIT PATTERN] Future Scheduled Test PT/PRECISION ASSEMBLER TO IDENTIFY FALL RISK FACTORS; EDUCATE THE PATIENT/CAREGIVER ON WAYS TO REDUCE FALL RISK FACTORS AND ESTABLISH HOME EXERCISE PROGRAM TO MINIMIZE FALL RISK. MAY TEACH THE PATIENT FLOOR RECOVERY WHEN CLINICALLY APPROPRIATE [code = PT/PRECISION ASSEMBLER TO IDENTIFY FALL RISK FACTORS; EDUCATE THE PATIENT/CAREGIVER ON WAYS TO REDUCE FALL RISK FACTORS AND ESTABLISH HOME EXERCISE PROGRAM TO MINIMIZE FALL RISK. MAY TEACH THE PATIENT FLOOR RECOVERY WHEN CLINICALLY APPROPRIATE] Future Scheduled Test PT / PRECISION ASSEMBLER T O INSTRUCT PATIENT/CAREGIVER ON RISK FOR HOSPITALIZATION/EMERGENCY ROOM VISITS, TEACH SIGNS AND SYMPTOMS THAT PUT PATIENT AT RISK, WHEN TO NOTIFY NURSE/PHYSICIAN OF COMPLICATIONS/DECLINE, AND WHEN TO CALL 911. [code = PT / PRECISION ASSEMBLER TO INSTRUCT PATIENT/CAREGIVER ON RISK FOR HOSPITALIZATION/EMERGENCY ROOM VISITS, TEACH SIGNS AND SYMPTOMS THAT PUT PATIENT AT RISK, WHEN TO NOTIFY NURSE/PHYSICIAN OF COMPLICATIONS/DECLINE, AND WHEN TO CALL 911.] Future Scheduled Test PT / PRECISION ASSEMBLER T O MONITOR AND EDUCATE ON OXYGEN SATURATION DURING ADLS/IADLS, NOTIFY PHYSICIAN AND/OR THE RN CLINICAL PERSONNEL ADMINISTRATOR FOR PHYSICIAN NOTIFICATION AND IF O2 SATS BELOW PHYSICIAN ORDERED PARAMETERS AFTER 10 MIN OF REST [code = PT / PRECISION ASSEMBLER TO MONITOR AND EDUCATE ON OXYGEN SATURATION DURING ADLS/IADLS, NOTIFY PHYSICIAN AND/OR THE RN CLINICAL PERSONNEL ADMINISTRATOR FOR PHYSICIAN NOTIFICATION AND IF O2 SATS [...] Date/Time Encounter Type Admission Type Attending Clinicians [facility] [place] Facility Care Department Encounter ID Discharge Date Discharge Status Discharge Condition Discharge Reason Percent Goals Met 2025-06-17 00:00:00 2025-08-15 00:00:00 Outpatient NEW ADMISSION LACY GOTTI [facility] [id number] 30.00
--- OUTSIDE RECORDS SUMMARY | 2025-08-14 20:00 | XMS_ITS | Clinical Summary ---
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 (CURRENT) USE OF ORAL HYPOGLYCEMIC DRUGS Active 06-17 00:00: 00 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) USE OF ANTITHROMBOT ICS/ANTIPLAT ELETS Active [...] 06-11 00:00: 00 06-17 00:00 :00 No [id number] Per instruc tions EVERY DAY Per instructio ns EVERY DAY (route: oral) Med Classific ation: Anti-Infe ctive Agents metformin 1,000 mg tablet 06-10 00:00: 00 Yes [id number] T2DM 1 tablet 2 TIMES DAILY 1 tablet 2 TIMES DAILY (route: oral) Med Classific ation: Endocrine meloxicam 7.5 mg tablet 06-07 00:00: 00 Yes [id number] ARTHRITIS 1 tablet DAILY 1 tablet DAILY (route: oral) Med Classific ation: Analgesic , Anti-infl ammatory or Antipyret ic chlorpromaz ine 10 mg tablet 05-22 00:00: 00 Yes [id number] HICCUPS Per instruc tions EVERY 4 HOURS Per instructio ns EVERY 4 HOURS (route: oral) Med Classific ation: Central Nervous System Agents metoclopram shay 10 mg tablet 05-22 00:00: 00 Yes [id number] HICCUPS 1 tablet EVERY 8 HOURS 1 tablet EVERY 8 HOURS (route: oral) Med Classific ation: Gastroint estinal Therapy Agents clopidogrel 75 mg tablet 05-20 00:00: 00 Yes [id number] HEART 1 tablet DAILY 1 tablet DAILY (route: oral) Med Classific ation: Hematolog ical Agents rosuvastati n 20 mg tablet 06-17 00:00: 00 Yes [id number] CHOLESTEROL 1 tablet DAILY 1 tablet DAILY [...] TO EVALUATE, OBSERVE / ASSESS, AND MONITOR, CONSUMER BANKER TO OBSERVE AND MONITOR, PROVIDE SKILLED THERAPEUTIC INTERVENTION, ACTIVITY, EDUCATION, AND TRAINING TO ADDRESS; [code = AGENCY MAY PERFORM A RESUMPTION OF CARE VISIT FOLLOWING ANY HOSPITAL ADMISSION. PT TO EVALUATE, OBSERVE / ASSESS, AND MONITOR, CONSUMER BANKER TO OBSERVE AND MONITOR, PROVIDE SKILLED THERAPEUTIC INTERVENTION, ACTIVITY, EDUCATION, AND TRAINING TO ADDRESS;] Future Scheduled Test THERAPEUTI C EXERCISES AND ESTABLISHING A HOME EXERCISE PROGRAM (PT/CONSUMER BANKER) [code = THERAPEUTIC EXERCISES AND ESTABLISHING A HOME EXERCISE PROGRAM (PT/CONSUMER BANKER)] Future Scheduled Test NEUROMUSCU LAR RE-EDUCATION / BALANCE / POSTURAL CONTROL (PT) [code = NEUROMUSCULAR RE-EDUCATION / BALANCE / POSTURAL CONTROL (PT)] Future Scheduled Test SIT TO/FRO M STAND TRANSFERS (PT/CONSUMER BANKER) [code = SIT TO/FROM STAND TRANSFERS (PT/CONSUMER BANKER)] Future Scheduled Test PT/CONSUMER BANKER TO PROVIDE GAIT TRAINING FOR IMPROVED MOBILITY AND /OR TO NORMALIZE GAIT PATTERN [code = PT/CONSUMER BANKER TO PROVIDE GAIT TRAINING FOR IMPROVED MOBILITY AND /OR TO NORMALIZE GAIT PATTERN] Future Scheduled Test PT/CONSUMER BANKER TO IDENTIFY FALL RISK FACTORS; EDUCATE THE PATIENT/CAREGIVER ON WAYS TO REDUCE FALL RISK FACTORS AND ESTABLISH HOME EXERCISE PROGRAM TO MINIMIZE FALL RISK. MAY TEACH THE PATIENT FLOOR RECOVERY WHEN CLINICALLY APPROPRIATE [code = PT/CONSUMER BANKER TO IDENTIFY FALL RISK FACTORS; EDUCATE THE PATIENT/CAREGIVER ON WAYS TO REDUCE FALL RISK FACTORS AND ESTABLISH HOME EXERCISE PROGRAM TO MINIMIZE FALL RISK. MAY TEACH THE PATIENT FLOOR RECOVERY WHEN CLINICALLY APPROPRIATE] Future Scheduled Test PT / CONSUMER BANKER T O INSTRUCT PATIENT/CAREGIVER ON RISK FOR HOSPITALIZATION/EMERGENCY ROOM VISITS, TEACH SIGNS AND SYMPTOMS THAT PUT PATIENT AT RISK, WHEN TO NOTIFY NURSE/PHYSICIAN OF COMPLICATIONS/DECLINE, AND WHEN TO CALL 911. [code = PT / CONSUMER BANKER TO INSTRUCT PATIENT/CAREGIVER ON RISK FOR HOSPITALIZATION/EMERGENCY ROOM VISITS, TEACH SIGNS AND SYMPTOMS THAT PUT PATIENT AT RISK, WHEN TO NOTIFY NURSE/PHYSICIAN OF COMPLICATIONS/DECLINE, AND WHEN TO CALL 911.] Future Scheduled Test PT / CONSUMER BANKER T O MONITOR AND EDUCATE ON OXYGEN SATURATION DURING ADLS/IADLS, NOTIFY PHYSICIAN AND/OR THE RN CLINICAL ADULT PROBATION OFFICER FOR PHYSICIAN NOTIFICATION AND IF O2 SATS BELOW PHYSICIAN ORDERED PARAMETERS AFTER 10 MIN OF REST [code = PT / CONSUMER BANKER TO MONITOR AND EDUCATE ON OXYGEN SATURATION DURING ADLS/IADLS, NOTIFY PHYSICIAN AND/OR THE RN CLINICAL ADULT PROBATION OFFICER FOR PHYSICIAN NOTIFICATION AND IF O2 SATS [...] Date/Time Encounter Type Admission Type Attending Clinicians [facility] Facility Care Department Encounter ID Discharge Date Discharge Status Discharge Condition Discharge Reason Percent Goals Met 2025-06-17 00:00:00 2025-08-15 00:00:00 Outpatient NEW ADMISSION LACY GOTTI [facility] [id number] 30.00
== END 2025-07-20 23:59 | disposition home or self-care (01) ==
LOC: INF 11:17
PROVIDERS: PCP Family Medicine; Visit Provider Internal Medicine Medical Oncology
DX: C34.92 Malignant neoplasm of unspecified part of left bronchus or lung (principal)
CPT/HCPCS: 36415; 80053; 85025

== ENCOUNTER 2025-08-08 07:08 | Emergency (ER) | payer MEDICARE, SELFPAY ==
[2025-08-08 07:15] VITALS: BP 148/80; PULSE 133; O2SAT 98
--- OUTSIDE RECORDS SUMMARY | 2025-08-08 07:15 | XMS_ITS | Data Portability ---
Author Organization [facility] [place] Address [address] [place] [address] Assessment No assessment recorded. Plan of Treatment Reminders Order Date Submit Date Provider Last Modified By Organization Details Last Modified Time Details Appointments OV EST 15 2025 02:45P Leigha Brown Jr, MD Not available Not available Not available Lab PSA, serum or plasma [address], [address], 05/10/2025 12:24:41 PSA, serum or plasma [email or web address], [address], 04/07/2024 09:41:19 urinalysi s, dipstick 2022 [email or web address], [address], 09/25/2023 16:41:34 culture, urine + sensitivi ty [address], [address], 10/02/2023 07:06:04 Referral None recorded. Procedures bladder scan (PROC) 2024 [email or web address] [place], [address], 05/10/2025 09:20:54 bladder scan (PROC) [address] [facility] [address], [address], 09/25/2023 16:41:34 Surgeries None recorded. Imaging None recorded. Medication Orders cefdinir 300 mg capsule [address] [facility], [address], [address], 09/25/2023 14:59:22 Patient TargetsNo targets recorded. Patient InstructionsNo instructions recorded. Reason for Referral None Reported. Results Created Date Observation Date Name Description Value Unit Range Abnormal Flag Note LastModifiedBy Organization Detail LastModifiedTime 08/16/2008/16/2023 BASIC METAB OLIC PANEL sodium 139 mmol/ L 137-14 7 Not Available [facility] (Pre-Op Clinic) [address] [place] [address] [place], [address], 08/16/2023 13:11:40 08/16/20 23 08/16/2023 BASIC METAB OLIC PANEL potassium 4.7 mmol/ L 3.5-5. 1 Not Available [facility] (Pre-Op Clinic) [address] [place] [address] [place], [address], 08/16/2023 13:11:40 08/16/20 23 08/16/2023 BASIC METAB OLIC PANEL chloride 107 mmol/ L 98-110 Not Available [facility] (Pre-Op Clinic) [address] [place] [address] [place], [address], 08/16/2023 13:11:40 08/16/20 23 08/16/2023 BASIC METAB OLIC PANEL carbon dioxide 23 mmol/ L 21-30 Not Available [facility] (Pre-Op Clinic) [address] [place] [address] [place], [address], 08/16/2023 13:11:40 08/16/20 23 08/16/2023 BASIC METAB OLIC PANEL anion gap 9 mmol/ L 6-14 Not Available [facility] (Pre-Op Clinic) [address] [place] [address] [place], [address], 08/16/2023 13:11:40 08/16/20 23 08/16/2023 BASIC METAB OLIC PANEL glucose 118 mg/dL 70-115 high Not Available [facility] (Pre[facility]Op [facility]) [address] [place] [address] [place], [address], 08/16/2023 13:11:40 08/16/20 23 08/16/2023 BASIC METAB OLIC PANEL BUN 30 mg/dL 9-20 high Not Available [facility] (Pre[facility]Op [facility]) [address] [place] [address] [place], [address], 08/16/2023 13:11:40 08/16/20 23 08/16/2023 BASIC METAB OLIC PANEL creatinine 1.8 mg/dL 0.5-1. 5 high Not Available [facility] (Pre[facility]Op Clinic) [address] [place] [address] [place], [address], 08/16/2023 13:11:40 08/16/20 23 08/16/2023 BASIC METAB OLIC PANEL BUN/creatini ne ratio 17 ratio 10-20 Not Available [facility] (Pre-Op Clinic) [address] [place] [address] [place], [address], 08/16/2023 13:11:40 08/16/20 23 08/16/2023 BASIC METAB OLIC PANEL glom filtration rate TNP mL/mi n >60- GFR has only been valid ated for patie nts 18-70 years of age. Not Available [facility] (Pre-Op Clinic) [address] [place] [address] [place], [address], 08/16/2023 13:11:40 08/16/20 23 08/16/2023 BASIC METAB OLIC PANEL osmolality (calculated) 296 mosmo l/kg 275-30 1 OSMOL ALITY IS A CALCU LATIO N UTILI ZING THE SERUM /PLAS MA SODIU M, GLUCO SE AND UREA NITRO GEN (BUN) LEVEL S. FOR THE MOST ACCUR ATE RESUL T A MEASU RED SERUM OSMOL ALIINA IS CRISTINA ANNED. Not Available [facility] (Pre-Op Clinic) [address] [place] [address] [place], [address], 08/16/2023 13:11:40 08/16/20 23 08/16/2023 BASIC METAB OLIC PANEL calcium 9.3 mg/dL 8.5-10 .8 Not Available [facility] (Pre[facility]Op Clinic) [address] [place] [address] [place], [address], 08/16/2023 13:11:40 08/16/20 23 08/16/2023 BASIC METAB OLIC PANEL note Unles s other ward noted testi ng perfo rmed at: [facility] [address] [place] [address] Mateo zamora MD Not Available [facility] (Pre[facility]Op [facility]) [address] [place] [address] [place], [address], 08/16/2023 13:11:40 08/16/20 23 08/16/2023 RFS-P ATHOL OGY SPECI MEN REQUE ST pathreq Patho logy [address] [place] [address] Phone or [phone] Fax Velasquez daigle Jr., M.D., Medic al Direc tor [facility] [address] : [place] [address] Phone Numbe r: [phone] Mateo zamora M.D. PATHO LOGY REPOR T [place] nt Name: MIGUEL LEVIN RD Date of : [birth year] Age/S ex: 77/M Accou nt Numbe r: [id number] Medic al Recor d Numbe r: [id number] Order ing MD: HOLGER BROWN AM Date Colle cted : 2022 Date Recei paola : 2022 Date Repor maria e : 2022 Exam: Biops y Acces krista# : [id number] Labor atory #: [id number] Copie s To: Techn ician : Clini armida Histo ry Benig n prost atic hyper plasi a, urine reten tion Previ ous Patie nt Histo ry and Files MIGUEL DEN, LESLIE RD (08/15 2194 6 M) i??SS N: i?? 1. 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 S09-0 82783 , DateC ollec maria e: 04/12 1: [...] : Hyper plast ic polyp 3. S06-0 71201 , DateC ollec maria e: 09/03 1: [...] tion rende red by Mateo zamora Jr., Edy. at [facility], [address] [facility] , [place] [address] . Final Diagn osis BENIG N PROST ATIC HYPER PLASI A WITH PROST ATITI S EJT/P AH Stain *Recu t-PCL ;[place] [address] Legal ly authe ntica maria e by MATEO AMADOR MD 08-21 08:22 :00 Not Available [facility] ([facility]Op [facility]) [address] [place] [address] [place], [address], 08/21/2023 08:46:20 08/17/20 23 08/17/2023 CBC W/ AUTO DIFF WBC 8.77 K/uL 4.5-11 .5 Not Available [facility] (Pre[facility]Op [facility]) [address] [place] [address] [place], [address], 08/17/2023 06:54:05 08/17/20 23 08/17/2023 CBC W/ AUTO DIFF RBC 3.21 M/uL 4.0-5. 4 low Not Available [facility] (Pre[facility]Op [facility]) [address] [place] [address] [place], [address], 08/17/2023 06:54:05 08/17/20 23 08/17/2023 CBC W/ AUTO DIFF HGB 9.7 g/dL 14.0-1 8.0 low Not Available [facility] (Pre[facility]Op [facility]) [address] [place] [address] [place], [address], 08/17/2023 06:54:05 08/17/20 23 08/17/2023 CBC W/ AUTO DIFF HCT 28.7 % 40-54 low Not Available [facility] (Pre[facility]Op [facility]) [address] [place] [address] [place], [address], 08/17/2023 06:54:05 08/17/20 23 08/17/2023 CBC W/ AUTO DIFF MCV 89.4 fL 80.0-1 00.0 Not Available [facility] ([facility]Op [facility]) [address] [place] [address] [place], [address], 08/17/2023 06:54:05 08/17/2008/17/2023 CBC W/ AUTO DIFF MCH 30.2 pg 26.0-3 2.0 Not Available [facility] (Pre-Op Clinic) [address] [place] [address] [place], [address], 08/17/2023 06:54:05 08/17/20 23 08/17/2023 CBC W/ AUTO DIFF MCHC 33.8 g/dL 32.0-3 6.0 Not Available [facility] (Pre-Op Clinic) [address] [place] [address] [place], [address], 08/17/2023 06:54:05 08/17/20 23 08/17/2023 CBC W/ AUTO DIFF RDW 12.9 % 11.5-1 4.5 Not Available [facility] (Pre-Op Clinic) [address] [place] [address] [place], [address], 08/17/2023 06:54:05 08/17/20 23 08/17/2023 CBC W/ AUTO DIFF platelet count 177 K/uL 142-42 4 Not Available [facility] (Pre-Op Clinic) [address] [place] [address] [place], [address], 08/17/2023 06:54:05 08/17/20 23 08/17/2023 CBC W/ AUTO DIFF MPV 9.9 fL 6.8-10 .2 Not Available [facility] (Pre-Op [facility]) [address] [place], [address], 08/17/2023 06:54:05 08/17/2008/17/2023 CBC W/ AUTO DIFF neutrophil % 92.4 % 50-70 high Not Available [facility] (Pre[facility]Op [facility]) [address] [place] [address] [place], [address], 08/17/2023 06:54:05 08/17/20 23 08/17/2023 CBC W/ AUTO DIFF lymphocyte % 3.5 % 18.0-4 2.0 low Not Available [facility] (Pre[facility]Op [facility]) [address] [place] [address] [place], [address], 08/17/2023 06:54:05 08/17/20 23 08/17/2023 CBC W/ AUTO DIFF monocyte % 3.6 % 2.0-11 .0 Not Available [facility] (Pre[facility]Op [facility]) [address] [place] [address] [place], [address], 08/17/2023 06:54:05 08/17/20 23 08/17/2023 CBC W/ AUTO DIFF eosinophil % 0.0 % 1.0-3. 0 low Not Available [facility] (Pre[facility]Op [facility]) [address] [place] [address] [place], [address], 08/17/2023 06:54:05 08/17/2008/17/2023 CBC W/ AUTO DIFF basophil % 0.0 % 0.0-2. 0 Not Available [facility] (Pre[facility]Op [facility]) [address] [place] [address] [place], [address], 08/17/2023 06:54:05 08/17/20 23 08/17/2023 CBC W/ AUTO DIFF immature granulocytes % 0.5 % 0.0-0. 8 Not Available [facility] (Pre[facility]Op [facility]) [address] [place] [address] [place], [address], 08/17/2023 06:54:05 08/17/20 23 08/17/2023 CBC W/ AUTO DIFF nucleated red blood cells % 0.0 % Not Available [facility] (Pre[facility]Op [facility]) [address] [place] [address] [place], [address], 08/17/2023 06:54:05 08/17/20 23 08/17/2023 CBC W/ AUTO DIFF neutrophil # 8.10 K/uL Not Available [facility] (Pre-Op Clinic) [address] [place] [address] [place], [address], 08/17/2023 06:54:05 08/17/20 23 08/17/2023 CBC W/ AUTO DIFF lymphocyte # 0.31 K/uL Not Available [facility] (Pre-Op Clinic) [address] [place] [address] [place], [address], 08/17/2023 06:54:05 08/17/20 23 08/17/2023 CBC W/ AUTO DIFF monocyte # 0.32 K/uL Not Available [facility] (Pre[facility]Op [facility]) [address] [place] [address] [place], [address], 08/17/2023 06:54:05 08/17/20 23 08/17/2023 CBC W/ AUTO DIFF eosinophil # 0.00 K/uL Not Available [facility] (Pre-Op Clinic) [address] [place] [address] [place], [address], 08/17/2023 06:54:05 08/17/20 23 08/17/2023 CBC W/ AUTO DIFF basophil # 0.00 K/uL Not Available [facility] (Pre-Op Clinic) [address] [place] [address] [place], [address], 08/17/2023 06:54:05 08/17/20 23 08/17/2023 CBC W/ AUTO DIFF immature gramulocytes # 0.04 K/uL Not Available [facility] (Pre[facility]Op [facility]) [address] [place] [address] [place], [address], 08/17/2023 06:54:05 08/17/20 23 08/17/2023 CBC W/ AUTO DIFF nucleated red blood cells # 0.00 k/uL Not Available [facility] (Pre[facility]Op [facility]) [address] [place] [address] [place], [address], 08/17/2023 06:54:05 08/17/20 23 08/17/2023 CBC W/ AUTO DIFF manual differential NO Not Available [facility] (Pre[facility]Op [facility]) [address] [place] [address] [place], [address], 08/17/2023 06:54:05 08/17/2008/17/2023 CBC W/ AUTO DIFF note Unles s other ward noted testi ng perfo rmed at: [facility] [address] [place] [address] Mateo zamora MD Not Available [facility] (Pre[facility]Op Clinic) [address] [place] [address] [place], [address], 08/17/2023 06:54:05 09/25/20 23 09/25/2023 CULTU RE URINE results MRB 09-26 719 >100, 000 COL/M L Gram Negat kristofer Rods Not Available [facility] (Lab Registration) [address] [place] [address] [place], [address], 09/26/2023 07:20:37 09/25/20 23 09/25/2023 CULTU RE URINE note Unles s other ward noted testi ng perfo rmed at: [facility] [address] [place] [place] [address] [phone] Mateo zamora MD CLIA: [id number] Not Available [facility] (Lab Registration) [address] [place], [address], 09/26/2023 07:20:37 09/25/20 23 09/25/2023 CULTU RE URINE culccur ===== ===== ===== ===== ===== ===== ===== ===== ===== ===== ===== ===== ===== ===== ===== ===== ===== ===== ===== ===== ===== ===== ===== ===== Speci men NO.: [id number] Exam Statu s: Final Proce dure: [...] L Gram Negat kristofer Rods Not Available [facility] (Lab Registration) [address], [place], [address], 09/27/2023 09:07:57 09/25/20 23 09/25/2023 CULTU RE URINE note Unles s other ward noted testi ng perfo rmed at: [facility] [place] [address] [phone] Mateo zamora MD CLIA: [id number] Not Available [facility] (Lab Registration) [address] [place], [address], 09/27/2023 09:07:57 09/25/20 23 09/25/2023 bladd er scan (PROC ) Calculated Residual Urine: 94 ml Not Available [address], [address], 09/25/2023 13:03:52 09/25/2009/25/2023 urina lysis , dipst ick Leukocytes (reference range) modera te Not Available [address], [address], 09/25/2023 13:03:51 09/25/20 23 09/25/2023 urina lysis , dipst ick Nitrite (reference range:) positi ve Not Available [address], [address], 09/25/2023 13:03:51 09/25/20 23 09/25/2023 urina lysis , dipst ick Urobilinogen (reference range) 0.2 Not Available [address], [address], 09/25/2023 13:03:51 09/25/20 23 09/25/2023 urina lysis , dipst ick Protein (reference range) 300 Not Available [address], [address], 09/25/2023 13:03:51 09/25/20 23 09/25/2023 urina lysis , dipst ick pH (reference range 5-8.5) 5.5 Not Available [address] [place], [address], 09/25/2023 13:03:51 09/25/20 23 09/25/2023 urina lysis , dipst ick Blood (reference range:) large Not Available [address], [address], 09/25/2023 13:03:51 09/25/20 23 09/25/2023 urina lysis , dipst ick Specific [place] (reference range) 1.020 Not Available [address], [address], 09/25/2023 13:03:51 09/25/20 23 09/25/2023 urina lysis , dipst ick Ketone (reference range) negati ve Not Available [address], [address], 09/25/2023 13:03:51 09/25/20 23 09/25/2023 urina lysis , dipst ick Bilirubin (reference range) negati ve Not Available [address], [address], 09/25/2023 13:03:51 09/25/20 23 09/25/2023 urina lysis , dipst ick Glucose (reference range) 1000 Not Available [address], [address], 09/25/2023 13:03:51 04/03/20 24 04/03/2024 PROST ATE SPECI FIC AG (PSA) prostate specific Ag (PSA) 2.18 NG/mL 0.0-4. 0 Not Available [facility] (Lab Registration) [address] [place], [address], 04/03/2024 15:50:56 04/03/20 24 04/03/2024 PROST ATE SPECI FIC AG (PSA) note Unles s other ward noted testi ng perfo rmed at: [facility] [address] [place] [address] [phone] Mateo zamora MD CLIA: [id number] Not Available [facility] (Lab Registration) [address] [place], [address], 04/03/2024 15:50:56 05/07/20 25 05/07/2025 PROST ATE SPECI FIC AG (PSA) note Unles s other ward noted testi ng perfo rmed at: [facility] [address] [place] [address] [phone] Mateo zamora MD CLIA: [id number] Not Available [facility] (Lab Registration) [address] [place], [address], 05/10/2025 12:24:41 05/07/20 25 05/10/2025 PROST ATE SPECI FIC AG (PSA) prostate specific Ag (PSA) 2.43 NG/mL 0.0-4. 0 Not Available [facility] (Lab Registration) [address] [place], [address], 05/10/2025 12:24:41 05/07/20 25 05/07/2025 bladd er scan (PROC ) Calculated Residual Urine: 47mL Not Available [facility] [place] [address] [place], [address], 05/07/2025 15:22:11 Result Notes None recorded. Problems Name Problem SNOMED Code Status Onset Date Resolution Date Notes Provider Name and Address Organization Details Recorded Time Benign prostatic hyperplasia with outflow obstruction 511022040 Active BALJIT Amezcua [facility] [place] 3 14:05:26 Problem Notes None recorded. Procedures Surgical History Date Name Laterality Status Provider Name and Address Organization Details Recorded Time 3 Medina Catheter Insertion completed Jose Brown Jr, MD [address] [place] [address], [address], [place], [address], [facility] [place] 07/30/2023 11:56:26 3 Cystoscopy-Mal e completed Jose Brown Jr, MD [address] [place] [address], [address], [place], [address], [facility] [place] 06/06/2023 16:33:12 procedure on tendon completed Marisel SMILEY [facility] [place] 04/10/2023 15:10:13 Imaging Results None recorded. Procedure Notes None recorded. Medical Equipment None Reported. Allergies Allergen ID Allergen Name Allergen Category Reaction Reaction Severity Criticality Documentation Date Start Date Code Code System Note Provider Name and Address Organization Details Recorded Time 10291120 cetirizin e medicatio n Not available Not available Not available 08/30/2023 RxNorm Other react ions and sever ities : 'Adve rse react ion to subst ance' . BALJIT Amezcua [facility] & [place] 3 14:05:13 92212 Zyrtec medicatio n Not available Not available Not available 04/10/2023 80316 RxNorm BALJIT Amezcua [facility] & [place] 3 15:09:08 Medications Name Sig Start Date [...] Not Available Not Available No t Available [facility] COVID-19 Antigen Rapid Home Test kit USE DIRECTED active Not Available Not Available No t Available Vitals Date Recorded Body height Body mass index (BMI) Body weight Body temperature Provider Name and Address Organization Details Last Updated DateTime 04/03/2024 177.8 cm 22.4 kg/m2 18877.41 g 98 [degF] Viky Espino [facility] [place] 04/03/2024 11:31:52 Date Recorded Body height Body mass index (BMI) Body weight Provider Name and Address Organization Details Last Updated DateTime 05/07/2025 177.8 cm 22.4 kg/m2 56283.41 g Susannah Casas [facility] [place] 05/07/2025 14:39:39 Date Recorded Body height Body mass index (BMI) Body weight Body temperature Provider Name and Address Organization Details Last Updated DateTime 08/30/2023 177.8 cm 22.4 kg/m2 68532.41 g 97.9 [degF] Marisel Radford [facility] [place] 08/30/2023 14:05:08 Date Recorded Body height Body mass index (BMI) Body weight Body temperature Provider Name and Address Organization Details Last Updated DateTime 09/25/2023 177.8 cm 22.4 kg/m2 89762.41 g 97.9 [degF] Marisel Radford [facility] [place] 09/25/2023 13:03:14 Social History None recorded. Functional Status Question Answer Note LastModified by Organizat ion Details LastModified Time What is your level of alcohol consumption? Occasional [email or web address] Information not available 04/10/2023 Mental Status None recorded. Family History Relationship Description Onset Age of this Age Resolved Age Notes LastModified by Organization Details LastModified Time Brother Family history unknown [email or web address] Not available 2022 15:09:42 Sister Family history unknown Not available 2022 15:09:42 Father Family history unknown [email or web address] Not available 2022 15:09:42 Mother Family history unknown [email or web address] Not available 2022 15:09:42 Medical History No medical history recorded. Past Encounters Encounter ID Performer Location Encounter Start Date Encounter Closed Date Diagnosis/Indication Diagnosis SNOMED-CT Code Diagnosis ICD10 Code Diagnosis IMO Codes Diagnosis Note [id number] Jose Brown Jr, MD [facility] [place] [address] [place] [address] 04/10/2023 14:30:14 04/10/2023 15:07:26 Prostate specific antigen above reference range 064957600 R97.20 Patient with history of elevated PSA. His PSAs have been stable for several years. We will repeat a free and total PSA today. His prostate exam was benign. Lower urin dcaia tract symptoms due to benign prostatic hypertrophy 3409824291 9101 N40.1 patient with history of BPH. He is doing well with the doxazosin 4 mg in his to continue. [id number] Jose Brown Jr, MD [facility] [address] [place] [address] 06/06/2023 13:12:45 06/06/2023 14:28:47 Incomplete emptying of urinary bladder due to benign prostatic hypertrophy 1272632858 95134 N40.1 patient with urinary retention. he had [...] cardiac clearance from his cardiologi st in [facility]. We discussed that he will need to discontinu e the aspirin 7 days prior and the Plavix 5 days prior to the procedure. Chronic ki dney disease 822768572 N18.9 patient is lower urinary tract obstructio n is likely contributi ng. Prostate s pecific antigen above reference range 896562780 R97.20 Patient with history of elevated PSA. His PSAs have been stable for several years. most recent PSA was stable free PSA puts him at a low risk for prostate cancer. [id number] Jose Brown Jr, MD [facility] [address] [facility] [place] [address] 07/09/2023 10:51:34 07/09/2023 11:27:01 Incomplete emptying of urinary bladder due to benign prostatic hypertrophy 3161905438 57635 N40.1 patient with history of urinary retention [...] room for catheter and follow-up with me. [id number] Jose Brown Jr, MD [facility] [address] [facility] [place] [address] 07/16/2023 08:25:20 07/16/2023 09:01:22 Incomplete emptying of urinary bladder due to benign prostatic hypertrophy 2436857623 36384 N40.1 patient with history of urinary retention [...] Prostate s pecific antigen above reference range 478440831 R97.20 Patient with history of elevated PSA. His PSAs have been stable for several years. most recent PSA was stable free PSA puts him at a low risk for prostate cancer. [id number] Jose Brown Jr, MD [facility] [address] [facility] [place] [address] 07/30/2023 09:14:19 07/30/2023 11:33:31 Incomplete emptying of urinary bladder due to benign prostatic hypertrophy 1140846984 63649 N40.1 patient with history of urinary retention [...] Plavix 5 days prior to his procedure. [id number] Jose Brown Jr, MD [facility] [address] [address] 08/21/2023 14:46:21 08/21/2023 15:09:20 Incomplete emptying of urinary bladder due to benign prostatic hypertrophy [id number] 84791 N40.1 patient is status post TURP 5 [...] him back in 1 month in follow-up. [id number] Jose Brown Jr, MD [facility] [address] [address] 09/25/2023 12:55:34 09/25/2023 13:12:58 Lower urinary tract symptoms due to benign prostatic hypertrophy 9619976930 9101 N40.1 Patient with history of bladder outlet obstructio n. He underwent a TURP several weeks ago. He returns today and states he is voiding with a good stream. His bladder scan today indicates a residual of only 94 cc. He was reassured that he is emptying out well. His pathology showed no evidence of cancer. Urinary tr act infectious disease 86897775 N39.0 Patient with symptoms of a UTI today. His urinalysis does look suspicious . We will culture it and he was placed on cefdinir. [id number] Jose Brown Jr, MD [facility] [address] [address] 08/30/2023 13:57:52 08/30/2023 14:08:26 Reji hematuria 694510572 R31.0 patient with some gross hematuria 2 weeks after TURP. His urine looks acceptably clear in his sample today. We discussed stopping the aspirin and pushing fluids. I also offered to place a catheter put some pressure on prostate wall but he does not want to do that. Incomplete emptying of urinary bladder due to benign prostatic hypertrophy [id number] 96958 N40.1 patient states he is voiding well after the TURP. [id number] Jose Brown Jr, MD [facility] [address] [address] 04/03/2024 11:07:58 04/03/2024 11:38:20 Screening for malignant neoplasm of prostate [id number] Z12.5 Will check PSA today. PSA was 10.2 03/2023 and 7 on 05/2022. Benign pro static hyperplasia with outflow obstruction [id number] N40.1 Pt with h/o urinary retention s/p TURP 08/2023. Pt voiding well and pleased with results.Pa th benign. Pt off prostate meds. [id number] Jose Brown Jr, MD [facility] [address] [address] 05/07/2025 14:35:53 05/07/2025 15:31:12 Benign prostatic hyperplasia with outflow obstruction [id number] N40.1 N13.8 [id number] Patient with history of BPH status post [...] Prostate s pecific antigen above reference range [id number] R97.20 [id number] Patient with history of elevated PSA. His [...] Member ID Zamora Member ID Guarantor Name 05/10/2025 1 BCBS-BALJIT: [place] [employer] [place] [id number] Cole Feliz Jr [id number] [place] Notes Date Note Type Note Provider Name [...] voiding trial today. Jose Brown Jr, MD [address] [place] [address], [address], [address], [facility] [place] 08/21/2023 15:15:29 08/30/2023 text/html ROS as noted in the HPI patient patient is a 77-year-old white male status post a TURP 2 weeks ago. He returns today because of some blood in his urine. He states it is com writer at the initiation of stream and then becomes clear. He states he is having a bit of blood oozing out the meatus. Has restarted his aspirin. His been off of Plavix since before his procedure. Jose Brown Jr, MD [address] [place] [address], [address], [place], [address], [facility] [place] 08/30/2023 14:50:44 09/25/2023 text/html ROS as noted [...] some burning. Jose Brown Jr, MD [address], [address], [place], [address], [facility] [place] 09/25/2023 15:01:39 04/03/2024 text/html ROS as noted in the HPI 78 yo WM with h/o urinary retention s/p TURP 08/2023. He states he is voiding well. Nocturia only 1 time. He had a UTI at last visit in September but denies any recurrent symtpoms. His bladder scan at last visit was 94 cc. Path showed no cancer. Jose Brown Jr, MD [address] [place] [address], [address], [place], [address], [facility] [place] 04/12/2024 19:53:23 05/07/2025 text/html ROS as noted [...] of March 2024. Jose Brown Jr, MD [address] [place] [address], [address], [place], [address], [facility] [place] 05/07/2025 15:42:13
[2025-08-08 07:17] VITALS: BP 148/80; PULSE 99; RESP 18; TEMP 36.6; O2SAT 98; BMI 19.9
--- NOTE | 2025-08-08 07:29 | HMH.EDGENADL ---
Discharge Plan Disposition Patient Disposition: Home, Self-Care Prescriptions Prescriptions: No Action (DME) lancets [Easy Comfort Lancets] 30 gauge misc See Rx Instructions .Route Qty: 100 1RF Rx Instructions: As directed aspirin 81 mg tablet 81 mg PO DAILY clopidogrel [Plavix] 75 mg tablet 75 mg PO DAILY metformin 500 mg tablet 500 mg PO DAILY Qty: 30 2RF hydrocodone-acetaminophen 5-325 mg tablet 1 tab PO BID PRN (Reason: pain) Qty: 60 0RF rosuvastatin 20 mg tablet 20 mg PO DAILY Qty: 90 3RF melatonin 10 mg Tablet,Chewable 10 mg PO HS Referrals Follow up/Referrals: Casa Phillips MD [Primary Care Provider, Family Practice] - See instructions Activity Restrictions/Add. Instructions Additional Instructions/Restrictions: I encourage you to follow-up with your urologist tomorrow to discuss needing to have a Medina catheter placed because you were retaining urine again. If you develop any new or worsening symptoms, such as worsening abdominal pain, no urine being produced in the Medina bag, bloody urine, fever, or if you become concerned for your health for any reason, return to the emergency department for evaluation Clinical Impressions Clinical Impression: Acute urinary retention Instructions Patient Instructions: DI for Urinary Tract Infection (UTI), DI for Urinary Tract Infection in Children Print Language Print Language: Italian Discharge ED Provider: Donald Tripp Adult HPI General Chief complaint: Urogenital-Male Stated complaint: unable to urinate Time Seen by Provider: 08/08/25 07:19 Mode of Arrival: Ambulatory Source of Information: Patient Description of Symptoms (Recalled from ER Triage Doc. by RN): patient states he has not urinated since 4 pm yesterday. is abdomen appears distended during triage. also reports constipation has history of prostate issues History of Present Illness HPI narrative: Cole Feliz is a 79y male with a history of an enlarged prostate, tobacco use, coronary artery disease, COPD who presents to the emergency department for complaints of urinary retention. Patient states that he has not urinated since 4 PM yesterday and feels that his abdomen is distended. He has had issues with urinary retention in the past and is followed by urologist in [place], [place]. They state that he has had to have his prostate scraped approximately a year ago and had a Medina catheter anchored for approximately 3 months but has not had it since then and has been urinating fine, however starting yesterday he developed significant urinary retention. He does report some mild constipation recently but states that is normal for him. He denies any fevers. He believes he may need another Medina placed. Related Data Home Medications ?Medication ?Instructions ?Recorded ?Confirmed melatonin 10 mg chewable tablet 10 mg PO HS 06/10/25 07/22/25 aspirin 81 mg tablet 81 mg PO DAILY 06/21/25 07/22/25 clopidogrel 75 mg tablet (Plavix) 75 mg PO DAILY 06/21/25 07/22/25 Previous Rx's ?Medication ?Instructions ?Recorded lancets 30 gauge (Easy Comfort #100 ea 09/18/23 Lancets) metformin 500 mg tablet 500 mg PO DAILY #30 tabs 06/21/25 rosuvastatin 20 mg tablet 20 mg PO DAILY #90 tabs 06/22/25 hydrocodone 5 mg-acetaminophen 325 1 tab PO BID PRN pain #60 tabs 07/22/25 mg tablet Allergies Allergy/AdvReac Type Severity Reaction Status Date / Time lisinopril Allergy Severe Swelling Verified 07/22/25 10:01 of Lip/Tongue/Throat cetirizine Allergy Unknown Unknown Verified 07/22/25 10:01 allergy reaction cyclobenzaprine (From AdvReac Confusion Verified 07/22/25 10:01 Flexeril) [facility] Disclaimer: The information contained in this section may have been updated after the patient was seen, as this information can be updated by other users. Medical History Skin lesion of right leg Primary cancer of left upper lobe of lung Sinusitis Open wound of right great toe Fracture of right great toe Bleeding from wound Injury of great toenail Angioedema of tongue Catheter-associated urinary tract infection Obstructive uropathy Hematuria COPD (chronic obstructive pulmonary disease) Smoking greater than 30 pack years Renal failure, chronic BPH loc w urin obs/LUTS Elevated PSA HLD (hyperlipidemia) Carotid artery stenosis CAD (coronary artery disease) stented Abnormal EKG Tobacco use Hypertension Diabetes Surgical History S/P partial lobectomy of lung History of hand surgery History of coronary artery stent placement Family History Other Lung cancer Social History Smoking Status: Never smoker alcohol intake: former substance use type: denies use current occupational status: retired Travel in the last 8 weeks?: None household members: none housing: house caffeine: Yes Have you lived/traveled outside US in past 30 days?: No Contact w/someone who lives/traveled outside US past 30 days?: No Exposure to someone with infectious disease in past 14 days?: No Do you have a fever (greater than 100.4 F or 38 C)?: No Have you tested positive for COVID-19?: No Exposed to someone with COVID-19 in past 14 days?: No Do you have a sore throat?: No Do you have a cough?: No Do you have any weakness?: No Do you have any diarrhea?: No Are you experiencing any unusual bleeding?: No Do you have any muscle aches/pain?: No Do you have any abdominal pain?: No Are you experiencing loss of taste or smell?: No Other Medical History Have you received the Flu Vaccine for this season: No Have you received the Pneumonia Vaccine: Yes ROS Obtained: Yes Systems reviewed as appropriate & no additional complaints except as documented Physical Exam General General appearance: alert and in no apparent distress Head Head exam: atraumatic Eye Eye exam: Present normal appearance ENT ENT exam: Present normal external ear exam Neck Neck exam: Present full ROM Chest Chest inspection: Present symmetric chest wall rise Respiratory Respiratory exam: Present normal lung sounds bilaterally; Absent respiratory distress, wheezes or stridor Cardiovascular Cardiovascular exam: Present regular rate and normal rhythm Abdominal Exam Abdominal exam: Present soft, distention (suprapubic) and tenderness (suprapubic); Absent guarding or rigidity exam: Present deferred Extremities Exam Extremities exam: Present normal inspection Back Exam Back exam: Present normal inspection Neurological Exam Neurological exam: Present alert and oriented X3 Psychiatric Psychiatric exam: Present normal affect Skin Skin exam: Present warm and dry Medical Decision Making Medical Records Screening: Per USPSTF and CDC recommendations, given the prevalence of disease in our region, it is our hospital?s policy to screen for HIV and viral Hepatitis for all patients aged 18 and over and those with ongoing risk factors. Ignacio Inquiry Pt receiving controlled substance: No Vital Signs: 08/08/25 07:15 08/08/25 07:17 08/08/25 07:30 Temperature 97.8 F Temperature Source Oral Pulse Rate 133 H 99 H Pulse Rate [Right Radial] 99 H Respiratory Rate 18 Blood Pressure 148/80 H 149/81 H Blood Pressure [Right Arm] 148/80 H Blood Pressure Mean Blood Pressure Mean [Right Arm] 102 Blood Pressure Source [Right Arm] Automatic Cuff Blood Pressure Position [Right Arm] Supine 02 Sat by Pulse Oximetry 98 98 100 Oxygen Delivery Method Room Air Room Air Room Air 08/08/25 08:00 08/08/25 08:33 Temperature Temperature Source Pulse Rate 98 H 98 H Pulse Rate [Right Radial] Respiratory Rate Blood Pressure 133/65 140/74 Blood Pressure [Right Arm] Blood Pressure Mean 104 Blood Pressure Mean [Right Arm] Blood Pressure Source [Right Arm] Blood Pressure Position [Right Arm] 02 Sat by Pulse Oximetry 99 97 Oxygen Delivery Method Room Air Room Air Lab Data Lab Results 08/08/25 07:44: Urine Color Yellow, Urine Appearance Clear, Urine pH 6.5, Ur Specific [place] 1.020, Urine Protein Negative, Urine Glucose (UA) Negative, Urine Ketones Negative, Urine Blood Negative, Urine Nitrate Negative, Urine Bilirubin Negative, Urine Urobilinogen 0.2, Ur Leukocyte Esterase Negative, Urine RBC None, Urine WBC Occasional, Ur Squamous Epith Cells Occasional, Urine Bacteria None Orders (Tests/Meds): ORDERS Category Date Time Status UA [Urinalysis and Microscopic] Stat Lab 08/08/25 07:44 Completed Urinalysis and Microscopic Stat Lab 08/08/25 08:01 Stop Req Medical Decision Narrative: Cole Feliz is a 79y male with a history of an enlarged prostate, tobacco use, coronary artery disease, COPD who presents to the emergency department for complaints of urinary retention. Patient states that he has not urinated since 4 PM yesterday and feels that his abdomen is distended. He has had issues with urinary retention in the past and is followed by urologist in [place], [place]. They state that he has had to have his prostate scraped approximately a year ago and had a Medina catheter anchored for approximately 3 months but has not had it since then and has been urinating fine, however starting yesterday he developed significant urinary retention. He does report some mild constipation recently but states that is normal for him. He denies any fevers. He believes he may need another Medina placed. On arrival, patient's blood pressure 148/80, heart rate within normal limits, afebrile, oxygen saturation 98% on room air. Physical exam, as stated above, revealed overall well-appearing and nontoxic male in no distress. He is alert and oriented. His abdomen appears somewhat distended in the suprapubic region he has some tenderness and firmness in this area without guarding or peritonitis. Cardiopulmonary exam is unremarkable. Differential diagnosis includes, but is not limited to: BPH leading to urinary retention, urinary tract infection, constipation, among others. The most morbid conditions were considered and workup was based on these. I have low concern for bowel obstruction or pancreatitis or other severe intra-abdominal pathology that would warrant CT imaging. I do feel patient would benefit from bladder scan to evaluate contents of his bladder and Medina placement as this has been a recurring issue for him and he will likely need Medina catheter placement. Will also check urine sample to rule out urinary tract infection. Patient had 1200 mL on bladder scan and had a 16 Fris[place] Medina was anchored. Patient had significant relief of his symptoms after placement of catheter. Urinalysis showed no infection. Given this, I do feel patient is appropriate for discharge at this time with close follow-up with his urologist. Return precautions were given. All questions were answered. He demonstrated understanding and was in agreement this plan. He was then discharged from the emergency department in stable condition. Critical Care Critical Care Time Critical Care Time: No
[2025-08-08 07:30] VITALS: BP 149/81; PULSE 99; O2SAT 100
[2025-08-08 07:49] LABS: Microscopic, Urine URINE MICROSCOPIC (MICROSCOPIC)
[2025-08-08 08:00] VITALS: BP 133/65; PULSE 98; O2SAT 99
[2025-08-08 08:19] LABS: Bilirubin,Urine Negative (Negative); Color,Urine YELLOW (Yellow); Glucose,Urine (UA) Negative (Negative); Ketones,Urine Negative (Negative); Leukocyte Esterase,Urine Negative (Negative); PH,Urine 6.5 (5.0-8.5); Protein,Urine Negative (Negative); Specific Gravity, Urine 1.020 (1.005-1.030); Urobilinogen,Urine 0.2 EU/dl (0.2)
[2025-08-08 08:33] VITALS: BP 140/74; PULSE 98; O2SAT 97
--- NOTE | 2025-08-08 08:33 | PC.NURSE ---
16fr clemente placed with sterile technique, leg bag applied
[2025-08-08 09:04] LABS: Squamous Epithelial Cell,Urine Occasional #/hpf (0-5); WBC,Urine Occasional #/hpf (0-3)
--- NOTE | 2025-08-08 09:20 | PC.NURSE ---
call made to leticia, pts daughter, for transport home
[2025-08-08 09:31] VITALS: BP 129/63; PULSE 81; RESP 15; TEMP 36.7; O2SAT 99
--- OUTSIDE RECORDS SUMMARY | 2025-08-14 20:00 | XMS_ITS | Clinical Summary ---
Author Organization Unknown Care Team Providers Care Touch Up Worker Name Role Phone LORI ARELLANO, GABRIEL Unavailable Unavailable ANA MARÍA PT, LACY Unavailable Unavailable RONY INSTRUMENT TECHNOLOGIST, MILTON Unavailable Unavailable Payers Payer Name Policy Type Policy Number Effective Date Expira tion Date TONYAUTH [id number] Problems Condition Name Condition Details Condition Category [...] 06-17 00:00: 00 ATHSCL HEART DISEASE OF [place] CORONARY ARTERY W/O ANG PCTRS Active 06-17 [...] OF NICOTINE DEPENDENCE Active 06-17 00:00: 00 [facility] (CURRENT) USE OF ORAL HYPOGLYCEMIC DRUGS Active 06-17 00:00: 00 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 DIRECT[facility] (CURRENT) USE OF ANTITHROMBOT ICS/ANTIPLAT ELETS Active [...] 06-11 00:00: 00 06-17 00:00 :00 No [id number] Per instruc tions EVERY DAY Per instructio ns EVERY DAY (route: oral) Med Classific ation: Anti-Infe ctive Agents metformin 1,000 mg tablet 06-10 00:00: 00 Yes [id number] T2DM 1 tablet 2 TIMES DAILY 1 tablet 2 TIMES DAILY (route: oral) Med Classific ation: Endocrine meloxicam 7.5 mg tablet 06-07 00:00: 00 Yes [id number] ARTHRITIS 1 tablet DAILY 1 tablet DAILY (route: oral) Med Classific ation: Analgesic , Anti-infl ammatory or Antipyret ic chlorpromaz ine 10 mg tablet 05-22 00:00: 00 Yes [id number] HICCUPS Per instruc tions EVERY 4 HOURS Per instructio ns EVERY 4 HOURS (route: oral) Med Classific ation: Central Nervous System Agents metoclopram shay 10 mg tablet 05-22 00:00: 00 Yes [id number] HICCUPS 1 tablet EVERY 8 HOURS 1 tablet EVERY 8 HOURS (route: oral) Med Classific ation: Gastroint estinal Therapy Agents clopidogrel 75 mg tablet 05-20 00:00: 00 Yes [id number] HEART 1 tablet DAILY 1 tablet DAILY (route: oral) Med Classific ation: Hematolog ical Agents rosuvastati n 20 mg tablet 06-17 00:00: 00 Yes [id number] CHOLESTEROL 1 tablet DAILY 1 tablet DAILY (route: oral) Med Classific ation: Cardiovas cular Therapy Agents Vital Signs Vital Name Observation Time Observation Value Commen ts Temperature 2025-08-03 16:12:00.000 97.6 [degF] Temperature 2025-07-27 16:17:00.000 98.5 [degF] Temperature 2025-07-16 15:11:00.000 98.3 [degF] Temperature 2025-07-05 13:50:00.000 97.9 [degF] Temperature 2025-06-25 14:16:00.000 98.7 [degF] Temperature 2025-06-17 15:47:00.000 98.7 [degF] BMI (%) 2025-06-17 15:43:54.000 19 kg/m2 Height 2025-06-17 15:42:46.000 70 [in_us] Pulse 2025-08-03 16:12:00.000 75 /min Pulse 2025-07-27 16:17:00.000 86 /min Pulse 2025-07-16 15:11:00.000 76 /min Pulse 2025-07-05 13:50:00.000 85 /min Pulse 2025-07-03 16:11:00.000 88 /min Pulse 2025-06-25 14:16:00.000 86 /min Pulse 2025-06-17 15:47:00.000 91 /min O2 Saturation (%) 2025-08-03 16:13:00.000 94 % O2 Saturation (%) 2025-07-27 16:17:00.000 92 % O2 Saturation (%) 2025-07-16 15:11:00.000 98 % O2 Saturation (%) 2025-07-05 13:50:00.000 94 % O2 Saturation (%) 2025-07-03 16:11:00.000 99 % O2 Saturation (%) 2025-06-25 14:16:00.000 97 % O2 Saturation (%) 2025-06-17 15:47:00.000 98 % Respirations 2025-08-03 16:12:00.000 18 /min Respirations 2025-07-27 16:17:00.000 18 /min Respirations 2025-07-16 15:11:00.000 18 /min Respirations 2025-07-05 13:50:00.000 18 /min Respirations 2025-07-03 16:11:00.000 18 /min Respirations 2025-06-25 14:16:00.000 18 /min Respirations 2025-06-17 15:47:00.000 18 /min Weight (lbs) 2025-06-17 15:43:54.000 139 [lb_av] Systolic Blood Pressure 2025-08-03 16:12:00.000 116 mm [Hg] Systolic Blood Pressure 2025-07-27 16:17:00.000 136 mm [Hg] Systolic Blood Pressure 2025-07-16 15:11:00.000 122 mm [Hg] Systolic Blood Pressure 2025-07-05 13:50:00.000 124 mm [Hg] Systolic Blood Pressure 2025-07-03 16:11:00.000 122 mm [Hg] Systolic Blood Pressure 2025-06-25 14:16:00.000 140 mm [Hg] Systolic Blood Pressure 2025-06-17 15:47:00.000 126 mm [Hg] Diastolic Blood Pressure 2025-08-03 16:12:00.000 [...] TO EVALUATE, OBSERVE / ASSESS, AND MONITOR, INSTRUMENT TECHNOLOGIST TO OBSERVE AND MONITOR, PROVIDE SKILLED THERAPEUTIC INTERVENTION, ACTIVITY, EDUCATION, AND TRAINING TO ADDRESS; [code = AGENCY MAY PERFORM A RESUMPTION OF CARE VISIT FOLLOWING ANY HOSPITAL ADMISSION. PT TO EVALUATE, OBSERVE / ASSESS, AND MONITOR, INSTRUMENT TECHNOLOGIST TO OBSERVE AND MONITOR, PROVIDE SKILLED THERAPEUTIC INTERVENTION, ACTIVITY, EDUCATION, AND TRAINING TO ADDRESS;] Future Scheduled Test THERAPEUTI C EXERCISES AND ESTABLISHING A HOME EXERCISE PROGRAM (PT/INSTRUMENT TECHNOLOGIST) [code = THERAPEUTIC EXERCISES AND ESTABLISHING A HOME EXERCISE PROGRAM (PT/INSTRUMENT TECHNOLOGIST)] Future Scheduled Test NEUROMUSCU LAR RE-EDUCATION / BALANCE / POSTURAL CONTROL (PT) [code = NEUROMUSCULAR RE-EDUCATION / BALANCE / POSTURAL CONTROL (PT)] Future Scheduled Test SIT TO/FRO M STAND TRANSFERS (PT/INSTRUMENT TECHNOLOGIST) [code = SIT TO/FROM STAND TRANSFERS (PT/INSTRUMENT TECHNOLOGIST)] Future Scheduled Test PT/INSTRUMENT TECHNOLOGIST TO PROVIDE GAIT TRAINING FOR IMPROVED MOBILITY AND /OR TO NORMALIZE GAIT PATTERN [code = PT/INSTRUMENT TECHNOLOGIST TO PROVIDE GAIT TRAINING FOR IMPROVED MOBILITY AND /OR TO NORMALIZE GAIT PATTERN] Future Scheduled Test PT/INSTRUMENT TECHNOLOGIST TO IDENTIFY FALL RISK FACTORS; EDUCATE THE PATIENT/CAREGIVER ON WAYS TO REDUCE FALL RISK FACTORS AND ESTABLISH HOME EXERCISE PROGRAM TO MINIMIZE FALL RISK. MAY TEACH THE PATIENT FLOOR RECOVERY WHEN CLINICALLY APPROPRIATE [code = PT/INSTRUMENT TECHNOLOGIST TO IDENTIFY FALL RISK FACTORS; EDUCATE THE PATIENT/CAREGIVER ON WAYS TO REDUCE FALL RISK FACTORS AND ESTABLISH HOME EXERCISE PROGRAM TO MINIMIZE FALL RISK. MAY TEACH THE PATIENT FLOOR RECOVERY WHEN CLINICALLY APPROPRIATE] Future Scheduled Test PT / INSTRUMENT TECHNOLOGIST T O INSTRUCT PATIENT/CAREGIVER ON RISK FOR HOSPITALIZATION/EMERGENCY ROOM VISITS, TEACH SIGNS AND SYMPTOMS THAT PUT PATIENT AT RISK, WHEN TO NOTIFY NURSE/PHYSICIAN OF COMPLICATIONS/DECLINE, AND WHEN TO CALL 911. [code = PT / INSTRUMENT TECHNOLOGIST TO INSTRUCT PATIENT/CAREGIVER ON RISK FOR HOSPITALIZATION/EMERGENCY ROOM VISITS, TEACH SIGNS AND SYMPTOMS THAT PUT PATIENT AT RISK, WHEN TO NOTIFY NURSE/PHYSICIAN OF COMPLICATIONS/DECLINE, AND WHEN TO CALL 911.] Future Scheduled Test PT / INSTRUMENT TECHNOLOGIST T O MONITOR AND EDUCATE ON OXYGEN SATURATION DURING ADLS/IADLS, NOTIFY PHYSICIAN AND/OR THE RN CLINICAL SENIOR APPLICATIONS DEVELOPER FOR PHYSICIAN NOTIFICATION AND IF O2 SATS BELOW PHYSICIAN ORDERED PARAMETERS AFTER 10 MIN OF REST [code = PT / INSTRUMENT TECHNOLOGIST TO MONITOR AND EDUCATE ON OXYGEN SATURATION DURING ADLS/IADLS, NOTIFY PHYSICIAN AND/OR THE RN CLINICAL SENIOR APPLICATIONS DEVELOPER FOR PHYSICIAN NOTIFICATION AND IF O2 SATS BELOW PHYSICIAN ORDERED PARAMETERS AFTER 10 MIN OF REST] Goal Patient Goal - I NDEPENDENCE WITH [...] End Date/Time Encounter Type Admission Type Attending [facility] Care Facility Care Department Encounter ID Discharge Date Discharge Status Discharge Condition Discharge Reason Percent Goals Met 2025-06-17 00:00:00 2025-08-15 00:00:00 Outpatient NEW ADMISSION LACY GOTTI [facility] [id number] 50.00
== END 2025-08-08 09:34 | disposition home or self-care (01) ==
PROVIDERS: Emergency Provider Student in an Organized Health Care Education/Training Program; PCP Family Medicine
DX: R33.9 Retention of urine, unspecified (principal); N40.0 Benign prostatic hyperplasia without lower urinary tract symptoms; E11.9 Type 2 diabetes mellitus without complications; J44.9 Chronic obstructive pulmonary disease, unspecified; I10 Essential (primary) hypertension; I25.10 Atherosclerotic heart disease of native coronary artery without angina pectoris
CPT/HCPCS: 51702; 51798; 81001; 99283; 99284

== ENCOUNTER 2025-08-23 13:50 | Outpatient (CLI) | payer MEDICARE, SELFPAY ==
--- OUTSIDE RECORDS SUMMARY | 2025-08-14 19:00 | XMS_ITS | Clinical Summary ---
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 CHR KDNY Active 06-17 00:00: 00 TYPE 2 DIABETES MELLITUS W DIABETIC CHRONIC KIDNEY DISEASE Active 06-17 00:00: 00 CHRONIC KIDNEY DISEASE, UNSPECIFIED Active 06-17 00:00: 00 CHRONIC OBSTRUCTIVE PULMONARY DISEASE, UNSPECIFIED Active 06-17 00:00: 00 BENIGN PROSTATIC HYPERPLASIA WITH LOWER URINARY TRACT SYMP Active 06-17 00:00: 00 UNSP SYMPTOMS AND SIGNS INVOLVING THE GENITOURINAR Y SYSTEM Active 06-17 00:00: 00 ATHSCL HEART DISEASE OF [place] CORONARY ARTERY W/O ANG PCTRS Active 06-17 00:00: 00 OCCLUSION AND STENOSIS OF UNSPECIFIED CAROTID ARTERY Active 06-17 00:00: 00 PRIMARY GENERALIZED (OSTEO)ARTHR ITIS Active 06-17 00:00: 00 HISTORY OF FALLING Active 06-17 00:00: 00 ACQUIRED ABSENCE OF LUNG [PART OF] Active 06-17 00:00: 00 PRESENCE OF CORONARY ANGIOPLASTY IMPLANT AND GRAFT Active 06-17 00:00: 00 PERSONAL HISTORY OF NICOTINE DEPENDENCE Active 06-17 00:00: 00 [facility] (CURRENT) USE OF ORAL HYPOGLYCEMIC DRUGS Active 06-17 00:00: 00 [facility] (CURRENT) USE OF ANTITHROMBOT ICS/ANTIPLAT ELETS Active 06-17 00:00: 00 Allergies, Adverse Reactions, Alerts Allergy Name Allergy Type Status Severity Reaction(s) Onset Date Inactive Date Treating Clinician Comments LISINOPRIL Propensity to adverse reactions Active 06-17 15:44: 59 CETIRIZINE Propensity to adverse reactions Active 06-17 15:45: 12 CYCLOBENZAPR INE Propensity to adverse reactions Active 06-17 15:45: 17 Medications Ordered Medication Name Filled Medication Name Start Date Stop Date Current Medication? Ordering Clinician Indication Dosage Frequency Signature (SIG) Comments Components levofloxaci n 500 mg tablet 06-11 00:00: 00 06-17 00:00 :00 No [id number] Per instruc tions EVERY DAY Per instructio ns EVERY DAY (route: oral) Med Classific ation: Anti-Infe ctive Agents metformin 1,000 mg tablet 06-10 00:00: 00 Yes [id number] T2DM 1 tablet 2 TIMES DAILY 1 tablet 2 TIMES DAILY (route: oral) Med Classific ation: Endocrine meloxicam 7.5 mg tablet 06-07 00:00: 00 Yes [id number] ARTHRITIS 1 tablet DAILY 1 tablet DAILY (route: oral) Med Classific ation: Analgesic , Anti-infl ammatory or Antipyret ic chlorpromaz ine 10 mg tablet 05-22 00:00: 00 Yes [id number] HICCUPS Per instruc tions EVERY 4 HOURS Per instructio ns EVERY 4 HOURS (route: oral) Med Classific ation: Central Nervous System Agents metoclopram shay 10 mg tablet 05-22 00:00: 00 Yes [id number] HICCUPS 1 tablet EVERY 8 HOURS 1 tablet EVERY 8 HOURS (route: oral) Med Classific ation: Gastroint estinal Therapy Agents clopidogrel 75 mg tablet 05-20 00:00: 00 Yes [id number] HEART 1 tablet DAILY 1 tablet DAILY (route: oral) Med Classific ation: Hematolog ical Agents rosuvastati n 20 mg tablet 06-17 00:00: 00 Yes [id number] CHOLESTEROL 1 tablet DAILY 1 tablet DAILY (route: oral) Med Classific ation: Cardiovas cular Therapy Agents Vital Signs Vital Name Observation Time Observation Value Commen ts Temperature 2025-08-11 15:03:00.000 97.8 [degF] Temperature 2025-08-03 16:12:00.000 97.6 [degF] Temperature 2025-07-27 16:17:00.000 98.5 [degF] Temperature 2025-07-16 15:11:00.000 98.3 [degF] Temperature 2025-07-05 13:50:00.000 97.9 [degF] Temperature 2025-06-25 14:16:00.000 98.7 [degF] Temperature 2025-06-17 15:47:00.000 98.7 [degF] BMI (%) 2025-06-17 15:43:54.000 19 kg/m2 Height 2025-06-17 15:42:46.000 70 [in_us] Pulse 2025-08-11 15:03:00.000 76 /min Pulse 2025-08-03 16:12:00.000 75 /min Pulse 2025-07-27 16:17:00.000 86 /min Pulse 2025-07-16 15:11:00.000 76 /min Pulse 2025-07-05 13:50:00.000 85 /min Pulse 2025-07-03 16:11:00.000 88 /min Pulse 2025-06-25 14:16:00.000 86 /min Pulse 2025-06-17 15:47:00.000 91 /min O2 Saturation (%) 2025-08-11 15:03:00.000 97 % O2 Saturation (%) 2025-08-03 16:13:00.000 94 % O2 Saturation (%) 2025-07-27 16:17:00.000 92 % O2 Saturation (%) 2025-07-16 15:11:00.000 98 % O2 Saturation (%) 2025-07-05 13:50:00.000 94 % O2 Saturation (%) 2025-07-03 16:11:00.000 99 % O2 Saturation (%) 2025-06-25 14:16:00.000 97 % O2 Saturation (%) 2025-06-17 15:47:00.000 98 % Respirations 2025-08-11 15:03:00.000 18 /min Respirations 2025-08-03 16:12:00.000 18 /min Respirations 2025-07-27 16:17:00.000 18 /min Respirations 2025-07-16 15:11:00.000 18 /min Respirations 2025-07-05 13:50:00.000 18 /min Respirations 2025-07-03 16:11:00.000 18 /min Respirations 2025-06-25 14:16:00.000 18 /min Respirations 2025-06-17 15:47:00.000 18 /min Weight (lbs) 2025-06-17 15:43:54.000 139 [lb_av] Systolic Blood Pressure 2025-08-11 15:03:00.000 132 mm [Hg] Systolic Blood Pressure 2025-08-03 16:12:00.000 116 mm [Hg] Systolic Blood Pressure 2025-07-27 16:17:00.000 136 mm [Hg] Systolic Blood Pressure 2025-07-16 15:11:00.000 122 mm [Hg] Systolic Blood Pressure 2025-07-05 13:50:00.000 124 mm [Hg] Systolic Blood Pressure 2025-07-03 16:11:00.000 122 mm [Hg] Systolic Blood Pressure 2025-06-25 14:16:00.000 140 mm [Hg] Systolic Blood Pressure 2025-06-17 15:47:00.000 126 mm [Hg] Diastolic Blood Pressure 2025-08-11 15:03:00.000 68 mm [Hg] Diastolic Blood Pressure 2025-08-03 16:12:00.000 69 mm [Hg] Diastolic Blood Pressure 2025-07-27 16:17:00.000 68 mm [Hg] Diastolic Blood Pressure 2025-07-16 15:11:00.000 74 mm [Hg] Diastolic Blood Pressure 2025-07-05 13:50:00.000 64 mm [Hg] Diastolic Blood Pressure 2025-07-03 16:11:00.000 82 mm [Hg] Diastolic Blood Pressure 2025-06-25 14:16:00.000 84 mm [Hg] Diastolic Blood Pressure 2025-06-17 15:47:00.000 68 mm [Hg] Plan of Treatment Planned Activity Planned Date Details Comments Future Scheduled Test AGENCY MAY PERFORM A RESUMPTION OF CARE VISIT FOLLOWING ANY HOSPITAL ADMISSION. PT TO EVALUATE, OBSERVE / ASSESS, AND MONITOR, TESTER ROCKET ENGINE TO OBSERVE AND MONITOR, PROVIDE SKILLED THERAPEUTIC INTERVENTION, ACTIVITY, EDUCATION, AND TRAINING TO ADDRESS; [code = AGENCY MAY PERFORM A RESUMPTION OF CARE VISIT FOLLOWING ANY HOSPITAL ADMISSION. PT TO EVALUATE, OBSERVE / ASSESS, AND MONITOR, TESTER ROCKET ENGINE TO OBSERVE AND MONITOR, PROVIDE SKILLED THERAPEUTIC INTERVENTION, ACTIVITY, EDUCATION, AND TRAINING TO ADDRESS;] Future Scheduled Test THERAPEUTI C EXERCISES AND ESTABLISHING A HOME EXERCISE PROGRAM (PT/TESTER ROCKET ENGINE) [code = THERAPEUTIC EXERCISES AND ESTABLISHING A HOME EXERCISE PROGRAM (PT/TESTER ROCKET ENGINE)] Future Scheduled Test NEUROMUSCU LAR RE-EDUCATION / BALANCE / POSTURAL CONTROL (PT) [code = NEUROMUSCULAR RE-EDUCATION / BALANCE / POSTURAL CONTROL (PT)] Future Scheduled Test SIT TO/FRO M STAND TRANSFERS (PT/TESTER ROCKET ENGINE) [code = SIT TO/FROM STAND TRANSFERS (PT/TESTER ROCKET ENGINE)] Future Scheduled Test PT/TESTER ROCKET ENGINE TO PROVIDE GAIT TRAINING FOR IMPROVED MOBILITY AND /OR TO NORMALIZE GAIT PATTERN [code = PT/TESTER ROCKET ENGINE TO PROVIDE GAIT TRAINING FOR IMPROVED MOBILITY AND /OR TO NORMALIZE GAIT PATTERN] Future Scheduled Test PT/TESTER ROCKET ENGINE TO IDENTIFY FALL RISK FACTORS; EDUCATE THE PATIENT/CAREGIVER ON WAYS TO REDUCE FALL RISK FACTORS AND ESTABLISH HOME EXERCISE PROGRAM TO MINIMIZE FALL RISK. MAY TEACH THE PATIENT FLOOR RECOVERY WHEN CLINICALLY APPROPRIATE [code = PT/TESTER ROCKET ENGINE TO IDENTIFY FALL RISK FACTORS; EDUCATE THE PATIENT/CAREGIVER ON WAYS TO REDUCE FALL RISK FACTORS AND ESTABLISH HOME EXERCISE PROGRAM TO MINIMIZE FALL RISK. MAY TEACH THE PATIENT FLOOR RECOVERY WHEN CLINICALLY APPROPRIATE] Future Scheduled Test PT / TESTER ROCKET ENGINE T O INSTRUCT PATIENT/CAREGIVER ON RISK FOR HOSPITALIZATION/EMERGENCY ROOM VISITS, TEACH SIGNS AND SYMPTOMS THAT PUT PATIENT AT RISK, WHEN TO NOTIFY NURSE/PHYSICIAN OF COMPLICATIONS/DECLINE, AND WHEN TO CALL 911. [code = PT / TESTER ROCKET ENGINE TO INSTRUCT PATIENT/CAREGIVER ON RISK FOR HOSPITALIZATION/EMERGENCY ROOM VISITS, TEACH SIGNS AND SYMPTOMS THAT PUT PATIENT AT RISK, WHEN TO NOTIFY NURSE/PHYSICIAN OF COMPLICATIONS/DECLINE, AND WHEN TO CALL 911.] Future Scheduled Test PT / TESTER ROCKET ENGINE T O MONITOR AND EDUCATE ON OXYGEN SATURATION DURING ADLS/IADLS, NOTIFY PHYSICIAN AND/OR THE RN CLINICAL RETAIL CLERK FOR PHYSICIAN NOTIFICATION AND IF O2 SATS BELOW PHYSICIAN ORDERED PARAMETERS AFTER 10 MIN OF REST [code = PT / TESTER ROCKET ENGINE TO MONITOR AND EDUCATE ON OXYGEN SATURATION DURING ADLS/IADLS, NOTIFY PHYSICIAN AND/OR THE RN CLINICAL RETAIL CLERK FOR PHYSICIAN NOTIFICATION AND IF O2 SATS BELOW PHYSICIAN ORDERED PARAMETERS AFTER 10 MIN OF REST] Goal 2025-08-11 Patient Goal - I NDEPENDENCE WITH FUNCTIONAL ACTIVITIES Goal Patient Goal - I NDEPENDENCE WITH FUNCTIONAL ACTIVITIES Goal Provider Goal - Goal Provider Goal - PT STG: PATIENT WILL DEMONSTRATE IMPROVED FUNCTIONAL STRENGTH EVIDENCED BY FIVE TIMES SIT TO STAND TEST (CUT SCORE >12 SECONDS INDICATES AN INCREASED FALL RISK) IMPROVING FROM 42 SECONDS TO LESS THAN OR EQUAL TO 36 SECONDS WITHIN 4 WEEKS IN ORDER TO DECREASE FALL RISK PT LTG: PATIENT WILL DEMONSTRATE IMPROVED FUNCTIONAL STRENGTH EVIDENCED BY FIVE TIMES SIT TO STAND TEST (CUT SCORE >12 SECONDS INDICATES AN INCREASED FALL RISK) IMPROVING FROM 42 SECONDS TO LESS THAN OR EQUAL TO 12 SECONDS WITHIN 8 WEEKS IN ORDER TO DECREASE FALL RISK PT LTG: PATIENT WILL DEMONSTRATE INDEPENDENCE AND COMPLIANCE WITH HEP WITHIN 4 WEEKS Goal Provider Goal - PT STG: PATIENT WILL DEMONSTRATE REDUCED FALL RISK EVIDENCED BY TUG TEST (CUT SCORE >11 SECONDS INDICATES INCREASED FALL RISK) IMPROVING FROM 35 SECONDS TO LESS THAN OR EQUAL TO 29 SECONDS WITHIN 4 WEEKS PT LTG: PATIENT WILL DEMONSTRATE REDUCED FALL RISK EVIDENCED BY TUG TEST (CUT SCORE >11 SECONDS INDICATES INCREASED FALL RISK) IMPROVING FROM 35 SECONDS TO LESS THAN OR EQUAL TO 11 SECONDS WITHIN 8 WEEKS Goal Provider Goal - PT LTG: PATIENT WILL DEMONSTRATE IMPROVED ABILITY TO PERFORM SIT TO/FROM STAND TRANSFERS TO REDUCE THE RISK OF SKIN BREAKDOWN AND REDUCE FALL RISK FROM CGA TO IND WITHIN 8 WEEKS Goal Provider Goal - PT STG: PATIENT WILL DEMONSTRATE IMPROVED 6 MINUTE WALK TEST AMBULATION FROM 100 FT CGA TO 200 FT SBA WITH APPROPRIATE AD WITHIN 4 WEEKS. PT LTG: PATIENT WILL DEMONSTRATE IMPROVED 6 MINUTE WALK TEST AMBULATION FROM 100 FT CGA TO 300 FT IND WITH APPROPRIATE AD WITHIN 8 WEEKS. Goal Provider Goal - PT LTG: PATIENT/CAREGIVER WILL DEMONSTRATE ADHERENCE TO FALL REDUCTION SELF-MANAGEMENT AND REDUCING FALL RISK FACTORS TO MINIMIZE FALL RISK BY END OF EPISODE. Goal Provider Goal - PT GOAL: PATIENT/CAREGIVER WILL VERBALIZE UNDERSTANDING OF SIGNS AND SYMPTOMS THAT PUT THE PATIENT AT RISK FOR HOSPITALIZATION /EMERGENCY ROOM VISITS, WHEN TO NOTIFY NURSE/PHYSICIAN OF COMPLICATIONS/DECLINE AND WHEN TO CALL 911. Goal Provider Goal - PT LTG: PATIENT WILL MAINTAIN OXYGEN SATURATION WITHIN PHYSICIAN ORDERED PARAMETERS THROUGHOUT EPISODE OF CARE. Encounters Start Date/Time End Date/Time Encounter Type Admission Type Attending Clinicians Care Facility Care Department Encounter ID Discharge Date Discharge Status Discharge Condition Discharge Reason Percent Goals Met 2025-06-17 00:00:00 2025-08-15 00:00:00 Outpatient NEW ADMISSION LACY GOTTI [facility] [id number] 50.00
[2025-08-23 19:45] LABS: Hematocrit 27.6 % (42.0-52.0); Hemoglobin 8.4 g/dL (14.1-18.0); Immature Granulocytes % 0 %; Mean Corpuscular HGB Conc 30.4 g/dL (31.8-35.4); Mean Corpuscular Hemoglobin 29.9 pg (27.0-31.2); Mean Corpuscular Volume 98.2 fl (80-94); Nucleated Red Blood Cells % 0 %; Platelet Count 252 K/mm3 (142-424); Red Blood Count 2.81 M/mm3 (4.60-6.20); Red Cell Distribution Width-SD 51.8 fL; White Blood Count 3.3 K/mm3 (4.8-10.8)
[2025-08-23 20:08] LABS: Alanine Aminotransferase 9 U/L (12-78); Albumin Level 3.9 g/dl (3.5-5.0); Albumin/Globulin Ratio 1.1 (1.1-1.8); Alkaline Phosphatase 102 U/L (38-126); Anion Gap 13.5 mEq/L (5-15); Aspartate Amino Transferase 25 U/L (17-59); Bilirubin,Total 0.5 mg/dl (0.2-1.3); Blood Urea Nitrogen 18 mg/dl (9-20); Calcium 9.1 mg/dl (8.4-10.2); Carbon Dioxide 29 mmol/L (22.0-30.0); Chloride 101 mmol/L (98-107); Creatinine,Serum 1.50 mg/dl (0.66-1.25); Estimated Glomerular Filt Rate 45 ml/min (>60); GFR (African American) 55 ML/MIN (>60); Globulin 3.5 g/dL (1.3-3.2); Glucose 156 mg/dl (74-100); Potassium 4.5 mmoL/L (3.5-5.1); Sodium 139 mmol/L (136-145); Total Protein,Serum 7.4 g/dl (6.3-8.2)
--- OUTSIDE RECORDS SUMMARY | 2025-08-24 14:03 | XMS_ITS | Clinical Summary ---
Author Organization [facility] Address [address] [place] [address] Care Team Providers Care Circulation Crew Leader Name Role Phone Demetrio trevinoann Cardenas LENS BLOCK GAUGER Unavailable [phone] Casa Phillips MD Primary Care Provider [phone] Allergies Active Allergy Reactions Criticality Noted Date [...] [facility] [address] [address] Nikolai Naranjo MD 05/27/2025 Telephone [facility] [address] [facility] [place] [address] Nikolai Naranjo MD from Last 3 Months Family History [...] the past 12 months has th e [employer], gas, oil, or water company threatened to [...] Wellness (AWV) 1945 UKY-/Child/Adol SDOH Screenings 1945 [id number] Vaccine (#1) 1951 Diabetes: Dental Exam 1956 [...] on patient's age to complete this topic Insurance ANTHEM MEDICARE ANTHEM MEDICARE Advance Directives * Full Code (Latest Code Status on File) Date Activated Date Inactivated Comments 03/29/2025 7:30 PM 04/04/2025 2:23 PM Question Answer Comments I have reviewed the capacity from the link above and, if needed, have updated to appropriate status: No Care Teams Circulation Crew Leader Relationship Specialty Start Date End Date Casa Phillips MD [address] [place] [id number] PCP - General 02/22/25 Forrest Nickerson APRN [address] [place] [address] 03/06/23
--- OUTSIDE RECORDS SUMMARY | 2025-08-24 14:03 | XMS_ITS | Encounter Summary ---
Author Organization [facility] Address [address] [place] [address] Care Team Providers Care Supervisor Loading Name Role Phone Deep Keen APRN Primary Care Provider [phone] Forrest Nickerson APRN Unavailable [phone] Casa Phillips MD Primary Care Provider + [phone] Encounter Details Date Type Department Care Team (Late st Contact Info) Description 05/12/2024 Orders Only External Location [address] [place] [address] Provider, External Social History Tobacco Use Types [...] as of this encounter Care Teams Supervisor Loading Relationship Specialty Start Date End Date Deep Keen APRN [address] [place] [id number] PCP - General 03/06/23 02/21/25 Casa Phillips MD [address] [place] [id number] PCP - General 02/22/25 Forrest Nickerson APRN [address] [place] [phone] 03/06/23 documented as of this encounter
--- OUTSIDE RECORDS SUMMARY | 2025-08-24 14:03 | XMS_ITS | Encounter Summary ---
Author Organization [facility] Address [address] [place] [address] Care Team Providers Care Railroad Engineer Name Role Phone Demetrio Nickersonann Cardenas CASH POSTING SPECIALIST Unavailable [phone] Casa Phillips MD Primary Care Provider [phone] Encounter Details Date Type Department Care Team (Late st Contact Info) Description 05/27/2025 Telephone Pav CC Head, Neck & Respiratory [address] [facility], [address] [place] [address] Nikolai Naranjo MD [address] [facility] [place] [address] [place] [address] Social History Tobacco Use Types [...] any time in the past 12 m [facility], were you homeless or living [...] PM EDT Patient's daughter called back. Emailed [facility] paperwork to me and explained that [...] Nora back with any questions or concerns [phone] documented in this encounter Plan of Treatment [...] documented as of this encounter Care Teams Railroad Engineer Relationship Specialty Start Date End Date Casa Phillips MD [address] [place] [id number] PCP - General 02/22/25 Forrest Nickerson APRN [address] [place] [id number] 03/06/23 documented as of this encounter
--- OUTSIDE RECORDS SUMMARY | 2025-08-24 14:03 | XMS_ITS ---
Author Organization [facility] Address [address] [place] [address] Care Team Providers Care Dental Chair Assembler Name Role Phone Zari Nickersonhéctor Theresa SUPERVISOR BOARDING Unavailable [phone] Casa Phillisp MD Primary Care Provider [phone] Active Problems Problem Noted Date Diagnosed Date [...]
--- OUTSIDE RECORDS SUMMARY | 2025-08-24 14:03 | XMS_ITS | Clinical Summary ---
Author Organization [employer] ([place], [place], [place], [place], [place]) Address [address] [place] [address] Care Team Providers Care Freelance Operator Name Role Phone Unavailable Primary Care [...] Date Terrance rded Speak language other than Rwandan at home Not on file 11/01/2023 Want [...] Tobacco Cessation Counseling and Screening (12+) 05/3105/31/2023 Falls Risk Screening 10/14/2024 COVID-19 VACCINE (1 - 2023- season) 2025 Influenza Vaccine (#1) 2025 Advance Directives For more information, please contact: [phone] * Full Code (Latest Code Status on File) Date Activated Date Inactivated Comments 05/31/2023 2:57 AM 06/05/2023 3:16 PM -Attempt Res uscitation if person has no pulse and is not breathing. -If no pulse or not breathing attempt CPR/CODE. -Call Rapid Response if patient is in distress.
--- OUTSIDE RECORDS SUMMARY | 2025-08-24 14:03 | XMS_ITS | Referral Summary ---
Author Organization [employer] ([place], [place], [place], [place], [place]) Address [address] [place] [address] Care Team Providers Care Insurance Administrator Name Role Phone Unavailable Primary Care Provider [...] Date Terrance rded Speak language other than Kosovan at home Not on file 11/01/2023 Want [...] Advance Directives For more information, please contact: [phone] * Full Code (Latest Code Status on File) Date Activated Date Inactivated Comments 05/31/2023 2:57 AM 06/05/2023 3:16 PM -Attempt Res uscitation if person has no pulse and is not breathing. -If no pulse or not breathing attempt CPR/CODE. -Call Rapid Response if patient is in distress.
== END 2025-08-23 23:59 | disposition home or self-care (01) ==
LOC: LAB.DROPOF 08-24 13:51
PROVIDERS: PCP Family Medicine; Visit Provider Family Medicine
DX: C34.90 Malignant neoplasm of unspecified part of unspecified bronchus or lung (principal); D64.9 Anemia, unspecified; E11.40 Type 2 diabetes mellitus with diabetic neuropathy, unspecified
CPT/HCPCS: 80053; 85025

== ENCOUNTER 2025-08-31 10:30 | Outpatient (CLI) | payer MEDICARE, SELFPAY ==
[2025-08-31 10:51] LABS: Hematocrit 28.2 % (42.0-52.0); Hemoglobin 8.8 g/dL (14.1-18.0); Immature Granulocytes % 0.2 %; Mean Corpuscular HGB Conc 31.2 g/dL (31.8-35.4); Mean Corpuscular Hemoglobin 29.8 pg (27.0-31.2); Mean Corpuscular Volume 95.6 fl (80-94); Nucleated Red Blood Cells % 0 %; Platelet Count 221 K/mm3 (142-424); Red Blood Count 2.95 M/mm3 (4.60-6.20); Red Cell Distribution Width-SD 47.8 fL; Reticulocyte % (Auto) 1.9 % (0.9-3.2); White Blood Count 4.1 K/mm3 (4.8-10.8)
[2025-08-31 11:16] LABS: Alanine Aminotransferase 15 U/L (12-78); Albumin Level 4.3 g/dl (3.5-5.0); Albumin/Globulin Ratio 1.4 (1.1-1.8); Alkaline Phosphatase 102 U/L (38-126); Anion Gap 12.1 mEq/L (5-15); Aspartate Amino Transferase 27 U/L (17-59); Bilirubin,Total 0.5 mg/dl (0.2-1.3); Blood Urea Nitrogen 20 mg/dl (9-20); Calcium 9.6 mg/dl (8.4-10.2); Carbon Dioxide 28 mmol/L (22.0-30.0); Chloride 102 mmol/L (98-107); Creatinine,Serum 1.50 mg/dl (0.66-1.25); Estimated Glomerular Filt Rate 45 ml/min (>60); GFR (African American) 55 ML/MIN (>60); Globulin 3.1 g/dL (1.3-3.2); Glucose 169 mg/dl (74-100); Iron 72 ug/dL (49-181); Potassium 4.1 mmoL/L (3.5-5.1); Sodium 138 mmol/L (136-145); Total Protein,Serum 7.4 g/dl (6.3-8.2)
[2025-08-31 11:26] LABS: Total Iron Binding Capacity 317 ug/dL (261-462)
[2025-08-31 11:51] LABS: Ferritin 486 ng/ml (17.9-464)
[2025-08-31 12:05] LABS: Vitamin B12 206 pg/mL (239-931)
[2025-08-31 12:59] LABS: Folate 7.90 ng/mL
== END 2025-08-31 23:59 | disposition home or self-care (01) ==
LOC: LAB 10:31
PROVIDERS: PCP Family Medicine; Visit Provider Internal Medicine Medical Oncology
DX: C34.12 Malignant neoplasm of upper lobe, left bronchus or lung (principal)
CPT/HCPCS: 36415; 80053; 82607; 82728; 82746; 83010; 83540; 83550; 83615; 85025; 85044; 86880

== ENCOUNTER 2025-09-06 14:06 | Outpatient (CLI) | payer MEDICARE, SELFPAY ==
[2025-09-06 14:15] VITALS: BP 145/70; PULSE 86; RESP 18; O2SAT 95
[2025-09-06] MEDS: VITAMIN B-12 1,000 MCG 1ML VIAL 1000 MCG (14:15)
--- OUTSIDE RECORDS SUMMARY | 2025-09-06 14:19 | XMS_ITS | Referral Summary ---
Author Organization [employer] ([place], [place], [place], [place], [place]) Address [address] [place] [address] Care Team Providers Care Mail Truck Driver Name Role Phone Unavailable Primary Care Provider [...] 0 11/01/2023 Family and Community Support Answer Emlvin e Recorded Help with Day to Day Activities Not on file 11/01/2023 Feeling Lonely or Isolated Not on file 11/01 Educational Attainment Answer Date Terrance rded Speak language other than Egyptian at home Not on file 11/01/2023 Want [...] Advance Directives For more information, please contact: [phone] * Full Code (Latest Code Status on File) Date Activated Date Inactivated Comments 05/31/2023 2:57 AM 06/05/2023 3:16 PM -Attempt Res uscitation if person has no pulse and is not breathing. -If no pulse or not breathing attempt CPR/CODE. -Call Rapid Response if patient is in distress.
--- OUTSIDE RECORDS SUMMARY | 2025-09-06 14:19 | XMS_ITS ---
Author Organization [facility] Address [address] [place] [address] Care Team Providers Care House Fellow Name Role Phone Demetrio trevinoann Cardenas BUCKET HOOKER Unavailable [phone] Casa Phillips MD Primary Care Provider + [phone] Active Problems Problem Noted Date Diagnosed Date [...]
--- OUTSIDE RECORDS SUMMARY | 2025-09-06 14:19 | XMS_ITS | Clinical Summary ---
Author Organization [facility] Address [address] [place] [address] Care Team Providers Care Air Defense Specialist Name Role Phone Forrest Nickerson EMERGENCY CARE ATTENDANT Unavailable [phone] Casa Phillips MD Primary Care Provider + [phone] Allergies Active Allergy Reactions Criticality Noted Date [...] current use of insulin 03/26/2022 Microalbuminuria 03/26/2022 Family History Medical History Relation Name Comments [...] money to buy more. Never true 03/31/20 Within the past 12 months, t he [...] the past 12 months has th e [employer], gas, oil, or water company threatened to [...] Wellness (AWV) 1945 UKY-/Child/Adol SDOH Screenings 1946 [id number] Vaccine (#1) 1951 Diabetes: Dental Exam 1956 [...] patient's age to complete this topic Insurance [facility] ANTHEM MEDICARE Advance Directives * Full Code (Latest Code Status on File) Date Activated Date Inactivated Comments 03/29/2025 7:30 PM 04/04/2025 2:23 PM Question Answer Comments I have reviewed the capacity from the link above and, if needed, have updated to appropriate status: No Care Teams Air Defense Specialist Relationship Specialty [place] [id number] PCP - General 02/22/25 Forrest Nickerson APRN [address] [place] [address] [place] [id number] [phone] (work) 03/06/23
--- OUTSIDE RECORDS SUMMARY | 2025-09-06 14:19 | XMS_ITS | Encounter Summary ---
Author Organization [facility] Address [address] [place] [address] Care Team Providers Care Take Off Worker Name Role Phone Deep Keen APRN Primary Care Provider [phone] Forrest Nickerson APRN Unavailable [phone] Casa Phillips MD Primary Care Provider + [phone] Encounter Details Date Type Department Care Team (Late st Contact Info) Description 05/12/2024 Orders Only External Location [address] [place] [address] Provider, External Social History Tobacco Use Types [...] documented as of this encounter Care Teams Take Off Worker Relationship Specialty Start Date End Date Deep Keen APRN [address] [place] [address] [id number] PCP - General 03/06/23 02/21/25 [place] [id number] PCP - General 02/22/25 Forrest Nickerson APRN [address] [place] [address] [phone] 03/06/23 documented as of this encounter
--- OUTSIDE RECORDS SUMMARY | 2025-09-06 14:19 | XMS_ITS | Clinical Summary ---
Author Organization [employer] ([place], [place], [place], [place], [place]) Address [address] [place] [address] Care Team Providers Care Technical Customer Support Specialist Name Role Phone Unavailable Primary Care Provider [...] Date Terrance rded Speak language other than Peruvian at home Not on file 11/01/2023 Want [...] Advance Directives For more information, please contact: [phone] * Full Code (Latest Code Status on File) Date Activated Date Inactivated Comments 05/31/2023 2:57 AM 06/05/2023 3:16 PM -Attempt Res uscitation if person has no pulse and is not breathing. -If no pulse or not breathing attempt CPR/CODE. -Call Rapid Response if patient is in distress.
== END 2025-09-06 14:30 | disposition home or self-care (01) ==
LOC: INF 14:06
PROVIDERS: PCP Family Medicine; Visit Provider Internal Medicine Medical Oncology
DX: D51.9 Vitamin B12 deficiency anemia, unspecified (principal)
CPT/HCPCS: 96372; J3420

== ENCOUNTER 2025-09-13 13:23 | Outpatient (CLI) | payer MEDICARE, SELFPAY ==
--- OUTSIDE RECORDS SUMMARY | 2025-09-13 13:26 | XMS_ITS | Encounter Summary ---
Author Organization [facility] Address [address] [place] [address] Care Team Providers Care Sales Representative Malt Liquors Name Role Phone Deep Keen APRN Primary Care Provider [phone] Forrest Nickerson APRN Unavailable [phone] Casa Phillips MD Primary Care Provider + [phone] Encounter Details Date Type Department Care Team (Late st Contact Info) Description 05/12/2024 Orders Only External Location [address] [place] [address] Provider, External Social History Tobacco Use Types [...] as of this encounter Care Teams Sales Representative Malt Liquors Relationship Specialty Start Date End Date Deep Keen APRN [address] [place] [address] [id number] PCP - General 03/06/23 02/21/25 [place] [id number] PCP - General 02/22/25 Forrest Nickerson APRN [address] [place] [address] [id number] 03/06/23 documented as of this encounter
--- OUTSIDE RECORDS SUMMARY | 2025-09-13 13:26 | XMS_ITS | Clinical Summary ---
Author Organization [facility] Address [address] [place] [address] Care Team Providers Care Label Operator Name Role Phone Forrest Nickerson STRUCTURAL METAL WORKER Unavailable [phone] Casa Phillips MD Primary Care Provider + [phone] Allergies Active Allergy Reactions Criticality Noted Date [...] time in the past 12 m [facility], were you homeless or living in a [facility] (including now)? No 03/31/2025 Utilities Answer Date Recorded In the past 12 months has th e [employer], gas, oil, or water company threatened to [...] Wellness (AWV) 1945 UKY-/Child/Adol SDOH Screenings 1946 [id number] Vaccine (#1) 1951 Diabetes: Dental Exam 1956 [...] patient's age to complete this topic Insurance [facility] ANTHEM MEDICARE Advance Directives * Full Code (Latest Code Status on File) Date Activated Date Inactivated Comments 03/29/2025 7:30 PM 04/04/2025 2:23 PM Question Answer Comments I have reviewed the capacity from the link above and, if needed, have updated to appropriate status: No Care Teams Label Operator Relationship Specialty [place] [id number] PCP - General 02/22/25 Forrest Nickerson APRN [address] [place] [address] [place] [phone] (work) 03/06/23
--- OUTSIDE RECORDS SUMMARY | 2025-09-13 13:26 | XMS_ITS ---
Author Organization [facility] Address [address] [place] [address] Care Team Providers Care Circular Saw Operator Name Role Phone Demetrio trevinoann Cardenas PHOTOENGRAVING ETCHER Unavailable [phone] Casa Phillips MD Primary Care Provider + [phone] Active Problems Problem Noted Date Diagnosed Date [...]
[2025-09-13] MEDS: VITAMIN B-12 1,000 MCG 1ML VIAL 1000 MCG IM (13:28)
[2025-09-13 13:30] VITALS: BP 142/83; PULSE 80; RESP 18; O2SAT 96
== END 2025-09-13 23:59 | disposition home or self-care (01) ==
PROVIDERS: PCP Family Medicine; Visit Provider Internal Medicine Medical Oncology
DX: C34.12 Malignant neoplasm of upper lobe, left bronchus or lung (principal); E53.9 Vitamin B deficiency, unspecified
CPT/HCPCS: 96372; J3420

== ENCOUNTER 2025-09-21 13:03 | Outpatient (CLI) | payer MEDICARE, SELFPAY ==
[2025-09-21] MEDS: VITAMIN B-12 1,000 MCG 1ML VIAL 1000 MCG (13:07)
[2025-09-21 13:21] VITALS: BP 145/98; PULSE 76; RESP 20
== END 2025-09-21 23:59 | disposition home or self-care (01) ==
LOC: INF 13:04
PROVIDERS: PCP Family Medicine; Visit Provider Internal Medicine Medical Oncology
DX: C34.12 Malignant neoplasm of upper lobe, left bronchus or lung (principal)
CPT/HCPCS: 96372; J3420

== ENCOUNTER 2025-09-28 10:12 | Outpatient (CLI) | payer MEDICARE, SELFPAY ==
[2025-09-28 10:20] VITALS: BP 173/77; PULSE 78; RESP 16; TEMP 36.6; O2SAT 95
[2025-09-28] MEDS: VITAMIN B-12 1,000 MCG 1ML VIAL 1000 MCG (10:20)
--- OUTSIDE RECORDS SUMMARY | 2025-09-28 10:37 | XMS_ITS | Encounter Summary ---
Author Organization [facility] Address [address] [place] [address] Care Team Providers Care Welder Shielded Metal Arc Name Role Phone Deep Keen APRN Primary Care Provider [phone] Forrest Nickerson APRN Unavailable [phone] Casa Phillips MD Primary Care Provider + [phone] Encounter Details Date Type Department Care Team (Late st Contact Info) Description 05/12/2024 Orders Only External Location [address] [place] [address] Provider, External Social History Tobacco Use Types [...] documented as of this encounter Care Teams Welder Shielded Metal Arc Relationship Specialty Start Date End Date Deep Keen APRN [address] [place] [address] [id number] PCP - General 03/06/23 02/21/25 [place] [id number] PCP - General 02/22/25 Forrest Nickerson APRN [address] [place] [address] [phone] 03/06/23 documented as of this encounter
--- OUTSIDE RECORDS SUMMARY | 2025-09-28 10:37 | XMS_ITS | Referral Summary ---
Author Organization [employer] ([place], [place], [place], [place], [place]) Address [address] [place] [address] Care Team Providers Care Directory Clerk Name Role Phone Unavailable Primary Care Provider [...] Date Terrance rded Speak language other than Portuguese at home Not on file 11/01/2023 Want [...] Advance Directives For more information, please contact: [phone] * Full Code (Latest Code Status on File) Date Activated Date Inactivated Comments 05/31/2023 2:57 AM 06/05/2023 3:16 PM -Attempt Res uscitation if person has no pulse and is not breathing. -If no pulse or not breathing attempt CPR/CODE. -Call Rapid Response if patient is in distress.
--- OUTSIDE RECORDS SUMMARY | 2025-09-28 10:37 | XMS_ITS | Clinical Summary ---
Author Organization [employer] ([place], [place], [place], [place], [place]) Address [address] [place] [address] Care Team Providers Care Air Conditioner Installer Helper Name Role Phone Unavailable Primary Care Provider [...] Date Terrance rded Speak language other than [place] at home Not on file 11/01/2023 Want [...] Advance Directives For more information, please contact: [phone] * Full Code (Latest Code Status on File) Date Activated Date Inactivated Comments 05/31/2023 2:57 AM 06/05/2023 3:16 PM -Attempt Res uscitation if person has no pulse and is not breathing. -If no pulse or not breathing attempt CPR/CODE. -Call Rapid Response if patient is in distress.
--- OUTSIDE RECORDS SUMMARY | 2025-09-28 10:38 | XMS_ITS | Clinical Summary ---
Author Organization [facility] Address [address] [place] [address] Care Team Providers Care Wharf Helper Name Role Phone Forrest Nickerson MAINTENANCE MECHANIC TECHNICIAN Unavailable Casa Phillips MD Primary Care Provider + [phone] Allergies Active Allergy Reactions Criticality Noted Date [...] time in the past 12 m [facility], were you homeless or living in a longterm (including now)? No 03/31/2025 Utilities Answer Date Recorded In the past 12 months has th e [employer], gas, oil, or water company threatened to [...] Wellness (AWV) 1945 UKY-/Child/Adol SDOH Screenings 1945 [id number] Vaccine (#1) [birth year]/04/1946 Diabetes: Dental Exam 1956 UKY-DTaP,Tdap,and Td Vaccine s (1 - Tdap) 1965 UKY-Pneumococcal Vaccine: 50 + Years (1 of 2 - PCV) 1965 UKY-Zoster Vaccines (1 of 2) 1965 UKY-RSV Vaccine: 60+ Years o r (1 - 1-dose 75+ series) 2021 UKY-Influenza Vaccine (#1) 2025 08/19/2024 UKY- SDOH Screenings 09/30/2025 UKY-Adult SDOH Screenings 09/30/2025 03/31/2025 HPV Vaccines (No Doses Required) Completed UKY-HIB Vaccines Aged Out No longer e [...] patient's age to complete this topic Insurance [facility] MEDICARE Member Subscriber Plan / Payer (Ef fective 2021-Present) Name:Cole Feliz Jr. Relation to Subscriber:Self Name:Cole Feliz Jr. Payer ID:[id number] (NAIC) Group ID:[id number] Type:Not on file Address: [address] [place] MEDICARE Advance Directives * Full Code (Latest Code Status on File) Date Activated Date Inactivated Comments 03/29/2025 7:30 PM 04/04/2025 2:23 PM Question Answer Comments I have reviewed the capacity from the link above and, if needed, have updated to appropriate status: No Care Teams Wharf Helper Relationship Specialty [place] [id number] PCP - General 02/22/25 Forrest Nickerson APRN [address] [place] [address] [place] [phone] 03/06/23
--- OUTSIDE RECORDS SUMMARY | 2025-09-28 10:38 | XMS_ITS ---
Author Organization [facility] Address [address] [place] [address] Care Team Providers Care Wealth Management Consultant Name Role Phone Demetrio trevinoann Cardenas EDITING CLERK Unavailable [phone] Casa Phillips MD Primary Care Provider + [phone] Active Problems Problem Noted Date Diagnosed Date [...]
== END 2025-09-28 23:59 | disposition home or self-care (01) ==
LOC: INF 10:13
PROVIDERS: PCP Family Medicine; Visit Provider Internal Medicine Medical Oncology
DX: C34.12 Malignant neoplasm of upper lobe, left bronchus or lung (principal)
CPT/HCPCS: 96372; J3420